=== PATIENT | male | born 1950 | race Caucasian/White ===

== ENCOUNTER 2023-06-28 10:06 | Outpatient (OUT) | payer MEDICARE, OTHER, SELFPAY ==
--- NOTE | 2023-06-28 10:09 | VEIN_ITS ---
Patient Name: JOSE GONZALEZ MR#: [id number] : 1950 Exam Date: 06/28/2023 Ordering Doctor: KALLI DALTON RADIOLOGY REPORT PROCEDURE: [facility] - OFFICE VISIT INITIAL COMPARISON: None. PROGRESS NOTES: 73-year-old male who presents with a 8 year history of lower extremity pain swelling and varicose veins. The patient's left side is worse than right. The patient describes the pain as aching burning and heaviness rating the pain as mild, a 2 on a scale of 1-10. Patient's symptoms have significantly progressed in the past 6 months with seeping of both legs this culminated in a venous stasis ulceration on both legs. The patient was seen by [facility] and was referred for possible vein disease. Patient's symptoms are exacerbated by prolonged sitting and standing and are partially relieved by rest, leg elevation and compression stockings which she has worn for approximately 3 months. The patient denies any signs and symptoms to suggest arterial ischemia. The patient describes a family history significant for back pain and heart disease. The patient drinks alcohol occasionally. The patient has never smoked. No illicit drug use. 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 The 1st time was in 2019 , unprovoked. The 2nd episode was in 2022 also unprovoked. The patient is currently on long-term blood thinner, Eliquis. See separate history and physical for medication list. No prior treatment for varicose or spider veins. Nursing notes were reviewed. After history and physical exam I discussed at length the pathophysiology of venous hypertension and possible treatments, therapies and strategies available. We discussed at length the importance of elevating the lower extremities above the level of the heart, increased physical activity and compression stocking use. We discussed intravenous laser ablation, micro foam chemical ablation at length. Risks benefits and alternatives were discussed. Questions were answered. I did inform the patient that I thought his lower extremity swelling was multifactorial with a contributing factor being venous disease however he likely has a component of lymphedema, disease related to hypertension, inactivity and diabetes. Ultrasound venous reflux study performed the same day demonstrates mild right and moderate left great saphenous vein venous insufficiency. Moderate left small saphenous vein venous insufficiency. Bilateral incompetent perforating veins. Bilateral incompetent varicose veins. PHYSICAL EXAM: The right leg demonstrates extensive hemosiderin staining erythema and swelling below the knee. Moderate varicose and reticular veins. Scattered areas of healing active ulceration the largest measuring 5 mm medial distal right lower leg . The left leg demonstrates extensive hemosiderin staining erythema and swelling below the knee. Moderate varicose and reticular veins. Evidence of prior healed ulcerations. No active ulceration. Both thighs, legs and feet were symmetrically warm to the touch. Good posterior tibial and dorsalis pedis pulses were present bilaterally. VEIN/[facility] IMPRESSION: 1. Mild right moderate left great saphenous vein, moderate left small saphenous vein venous insufficiency with dilatation. Bilateral incompetent perforating veins 2. Bilateral lower extremity varicose veins 3. Bilateral lower extremity subcutaneous edema 4. No definite flow significant arterial disease 5. CEAP: C6, Ep, Asp, Pr PLAN: 1. Endovenous laser ablation left great saphenous vein followed by right great saphenous vein followed by left small saphenous vein with possible treatment of the incompetent perforating veins related to venous stasis ulcerations 2. Micro foam chemical ablation bilateral incompetent varicose veins 3. Long-term use bilateral 20-30 mm thigh or knee high compression stockings 4. Elevated legs and increased physical activity for symptomatic relief Nurse notes, history and physical were reviewed and confirmed, see attached forms. The nurse was present throughout the physical exam and consultation Dictated by: Lexa Cunha MD on 06/28/2023 at 13:32 Approved by: Lexa Cunha MD on 06/28/2023 at 14:43
--- NOTE | 2023-06-28 10:10 | VEIN_ITS ---
Patient Name: JOSE GONZALEZ MR#: [id number] : 1950 Exam Date: 06/28/2023 Ordering Doctor: KALLI DALTON RADIOLOGY REPORT PROCEDURE: VC EXT VENOUS REFLUX HEIDI LMTD COMPARISON: None. INDICATIONS: Pain due to varicose veins of bilateral legs I83.813 TECHNIQUE: Duplex imaging of the lower extremity to assess the deep and superficial venous system for the presence of deep or superficial venous incompetence and to document the location and severity of disease. The study includes evaluation of the great saphenous vein (GSV), anterior accessory saphenous vein (AASV) and small saphenous vein (SSV). Patient scanned in reverse Trendelenburg and standing. FINDINGS: RIGHT LOWER EXTREMITY: Saphenofemoral Junction Reflux: Yes 8.7mm 2.2 sec GSV: Diam (mm) Reflux/ Time (sec) Proximal Thigh 7.4 Yes 1.0 Mid Thigh 4.9 Yes 0.5 Distal Thigh 5.4 Yes 0.9 Prox Calf 2.7 No Mid Calf Saphenopopliteal Junction Reflux: 3.2mm No SSV: Proximal Calf 3.2 No Mid Calf 4.1 Yes 0.5 AASV: Not present Thrombi: No acute or chronic thrombus visualized Compressibility: Normal Flow: Normal Preforator: Dist/med calf 3.6mm with 0.8s reflux. Dist/med calf 4.0mm with 0.6s reflux. Mid/med calf 5.3mm with 0.6s reflux. Tech Note: Incompetent GSV. Patent varicose vein dist/med calf 4.7mm 0.9s reflux. Patent varicose vein prox/med 3.0mm with 1.3s reflux. LEFT LOWER EXTREMITY: Saphenofemoral Junction Reflux: Yes 10.4 mm 1.3 sec GSV: Diam (mm) Reflux/Time (sec) Proximal Thigh 6.9 Yes 1.2 Mid Thigh 6.9 Yes 1.1 Distal Thigh 3.9 No Prox Calf 5.0 Yes 0.9 Mid Calf 2.5 No Saphenopopliteal Junction Relux: 7.3 mm Yes 1.4 SSV: Proximal Calf 5.7 Yes 1.6 Mid Calf 5.0 Yes 0.8 AASV: Thrombi: Chronic thrombus visualized in proximal SSV. Compressibility: Normal Flow: Normal Dam Tender Assistant: Dist/med calf 2.5mm with 1.1s reflux. Tech Note: Incompetent GSV and SSV. Patent varicose vein dist/med calf 4.7mm with 1.1s reflux. Patent varicose vein prox/med calf 5.2mm with 1.2s reflux. Patent varicose vein distal med thigh 5.2mm with 1.2s reflux. CONCLUSION: 1. Mild right and moderate left great saphenous vein venous insufficiency with dilatation and saphenofemoral junction reflux 2. Moderate left small saphenous vein venous insufficiency with saphenous popliteal junction reflux 3. Bilateral incompetent perforating veins 4. Bilateral incompetent varicose veins Dictated by: Lexa Cunha MD on 06/28/2023 at 11:14 Approved by: Lexa Cunha MD on 06/28/2023 at 12:22
== END 2023-06-28 10:07 | disposition home or self-care (01) ==
LOC: VC 10:07
PROVIDERS: PCP Nurse Practitioner Adult Health; Visit Provider Nurse Practitioner Adult Health
DX: I83.813 Varicose veins of bilateral lower extremities with pain (principal)
CPT/HCPCS: 93970; G0463

== ENCOUNTER 2023-07-16 09:53 | Outpatient (OUT) | payer MEDICARE, OTHER, SELFPAY ==
--- NOTE | 2023-07-16 09:57 | VEIN_ITS ---
[address] [address] Patient Name: JOSE GONZALEZ MRN: [id number] date: 1950 Sex: M Assigned Patient Location: Current Patient Location: Accession/Order Number: [id number] Exam Date: 07/16/2023 10:10 Report Date: 07/16/2023 11:17 At the request of: JAMES ESPINOZA Procedure: VC Endovenous Ablation 1VeinLT EXAMINATION: VC Endovenous Ablation 1VeinLT HISTORY: Pain due to varicose veins of bilateral legs I83.813 The risks and benefits of the procedure had been previously discussed, and were rediscussed at length. Informed written consent was obtained. Stephanie Vela RN and Catalina Crespo RDMS, RVT assisted. Time out procedure was performed. The left lower extremity was prepared and draped in the usual sterile fashion to allow knee flexion in the sterile field. Duplex ultrasound probe was draped in a sterile cover, sterile transmission gel was used. Venous mapping was performed with the areas of dilation and large tributaries marked. The total length was 70 cm from the entry 3 cm above the ankle to 3 cm below the Saphenofemoral junction. The diameter of the left great saphenous vein ranged from 6.9 mm. A 30 gauge needle and 1% buffered lidocaine was used to anesthetize the entry site. A 4 mm incision was made with a scalpel and the saphenous vein was entered percutaneously under direct ultrasound guidance with a micropuncture set, a single stick was successful in gaining access. A micro-guide wire was inserted and the needle removed. A micro-set including a dilator was inserted over the microwire and the needle and dilator were removed. A guide wire was inserted through the micro-set and guided through the saphenous vein to the saphenofemoral junction. The dilator was removed and an introducer sheath was inserted over the wire until the end of the sheath entered the saphenofemoral junction. The dilator and wire were removed and the 600 micron fiber was introduced and placed and positioned so that it extended beyond the sheath and was 3 cm distal to the saphenofemoral or saphenopopliteal junction. Final position of the fiber was determined by ultrasound guidance and duplex imaging. Tumescent anesthetic was delivered by ultrasound guidance. 350 cc of fluid was delivered along the entire course of the saphenous vein. The solution consisted of 1000 cc of normal saline with 40 mL of 1% lidocaine and 20 mL of sodium bicarbonate. A final positioning check was made. The energy source was turned on by means of the foot pedal and the fiber and sheath were withdrawn. The total number of Joules delivered was 3334. The laser was active for 419 seconds under continuous pulse, average laser use of 8 J. Laser start time 10:45 AM, 07/16/2023. Laser stop time 10:53 AM, 07/16/2023. A duplex ultrasound revealed compressibility and flow at the saphenofemoral junction immediately after the procedure. Hemostasis at the access site was achieved. The skin incision of the saphenous vein was closed with a 4 x 4. A compression stocking was applied. Postop instructions were given. A follow up appointment was recommended and scheduled. The patient tolerated the procedure well. Electronically authenticated by: DIPIKA PARRISH Date: 07/16/2023 11:17
[2023-07-16] MEDS: LIDOCAINE HCL 1% 100 MG/10 ML MDV INJ (11:42)
[2023-07-16] MEDS: 0.9 % SODIUM CHLORIDE 500 ML, LIDOCAINE HCL 20 ML, SODIUM BICARBONATE 10 MEQ INJ (11:42)
== END 2023-07-16 09:54 | disposition home or self-care (01) ==
LOC: VC 09:53
PROVIDERS: PCP Nurse Practitioner Adult Health; Visit Provider Radiology Diagnostic Radiology
DX: I83.813 Varicose veins of bilateral lower extremities with pain (principal)
CPT/HCPCS: 36478

== ENCOUNTER 2023-07-22 08:41 | Outpatient (OUT) | payer MEDICARE, OTHER, SELFPAY ==
--- NOTE | 2023-07-22 08:42 | VEIN_ITS ---
Patient Name: JOSE GONZALEZ MR#: [id number] : 1950 Exam Date: 07/22/2023 Ordering Doctor: DR LEXA CUNHA M.D. RADIOLOGY REPORT PROCEDURE: VC EXT VENOUS LT LIMITED COMPARISON: None. INDICATIONS: Phlebitis of superficial vein of lt lower extremity I80.02 TECHNIQUE: Lower extremity anderson scale and Duplex Doppler evaluation of the deep venous system from the inguinal ligament through the calf veins. FINDINGS: REGION: Left lower extremity. THROMBI: Negative for DVT. Heat induced thrombus visualized 1.9 cm from the SFJ. The heat induced thrombus extends from groin to distal calf. COMPRESSIBILITY: Non-compressible segments corresponding to thrombus FLOW: Areas of absent flow corresponding to thrombus CONCLUSION: Post ablation occlusion of the left great saphenous vein with heat induced thrombus 1.9 cm from the saphenofemoral junction Dictated by: Lexa Cunha MD on 07/22/2023 at 09:23 Approved by: Lexa Cunha MD on 07/22/2023 at 09:25
--- NOTE | 2023-07-22 08:42 | VEIN_ITS ---
Patient Name: JOSE GONZALEZ MR#: [id number] : 1950 Exam Date: 07/22/2023 Ordering Doctor: DR LEXA CUNHA M.D. RADIOLOGY REPORT PROCEDURE: [facility] - OFFICE VISIT FOLLOW UP COMPARISON: None. PROGRESS NOTES: The patient reports mild discomfort and a lump in the medial left thigh related to his intravenous laser ablation. The patient has worn his compression stocking. The patient did not require oral analgesics. The patient has attempted to exercise since the procedure as directed. Physical exam demonstrates several areas of mild bruising in the left proximal and mid medial thigh the largest area measuring 5 cm in diameter. No erythema or warmth to suggest cellulitis or thrombophlebitis. No active ulceration. The incision is sealed. Thrombosed left great saphenous vein can be palpated. Review of the ultrasound performed the same day demonstrates occlusive thrombus extending throughout the treated left great saphenous vein with heat induced thrombus 1.9 cm from the saphenofemoral junction. No deep vein thrombus. The patient expressed a desire to proceed with treatment of incompetent right great saphenous vein. VEIN/[facility] Facility EST LMTD IMPRESSION: 1. Successful ablation of the left great saphenous vein 2. Persistent incompetent right great saphenous vein. PLAN: Intravenous laser ablation right great saphenous vein Nurse notes, history and physical were reviewed and confirmed, see attached forms. The nurse was present throughout the physical exam and consultation Dictated by: Lexa Cunha MD on 07/22/2023 at 09:44 Approved by: Lexa Cunha MD on 07/22/2023 at 09:46
== END 2023-07-22 08:42 | disposition home or self-care (01) ==
LOC: VC 08:41
PROVIDERS: PCP Nurse Practitioner Adult Health; Visit Provider Radiology Diagnostic Radiology
DX: I80.02 Phlebitis and thrombophlebitis of superficial vessels of left lower extremity (principal)
CPT/HCPCS: 93971; G0463

== ENCOUNTER 2023-07-30 08:45 | Outpatient (OUT) | payer MEDICARE, OTHER, SELFPAY ==
--- NOTE | 2023-07-30 08:47 | VEIN_ITS ---
[address] [address] Patient Name: JOSE GONZALEZ MRN: [id number] date: 1950 Sex: M Assigned Patient Location: Current Patient Location: Accession/Order Number: [id number] Exam Date: 07/30/2023 08:50 Report Date: 07/30/2023 10:44 At the request of: JAMES ESPINOZA Procedure: VC Endovenous Ablation 1VeinRT EXAMINATION: VC Endovenous Ablation 1VeinRT great saphenous vein HISTORY: I83.813 Bilateral painful varicose veins COMPARISON: No relevant comparison available. TECHNIQUE: The risks and benefits of the procedure had been previously discussed, and were rediscussed at length. Informed written consent was obtained. Taryn Crespo and Zak Olivia assisted. Time out procedure was performed. The right lower extremity was prepared and draped in the usual sterile fashion to allow knee flexion in the sterile field. Duplex ultrasound probe was draped in a sterile cover, sterile transmission gel was used. Venous mapping was performed with the areas of dilation and large tributaries marked. The total length was 36 cm from the entry upper calf to 3 cm below the saphenofemoral junction, but I believe this area was too small for treatment. The diameter of the greater saphenous vein ranged from 5-8 mm. A 30 gauge needle and 1% buffered lidocaine was used to anesthetize the entry site. A 4 mm incision was made with a scalpel and the saphenous vein was entered percutaneously under direct ultrasound guidance with a micropuncture set, a single stick was successful in gaining access. A micro-guide wire was inserted and the needle removed. A micro-set including a dilator was inserted over the microwire and the needle and dilator were removed. A 0.018 guide wire was inserted through the micro-set and threaded through the saphenous vein to the saphenofemoral junction. The dilator was removed and an introducer sheath was inserted over the wire until the end of the sheath entered the saphenofemoral junction. The dilator and wire were removed and the 600 micron fiber was introduced and placed and positioned so that it extended beyond the sheath and was 3 cm peripheral to the saphenofemoral femoral junction. Final position of the fiber was determined by ultrasound guidance and duplex imaging. Tumescent anesthetic was delivered by ultrasound guidance. 275 cc of fluid was delivered along the entire course of the saphenous vein. The solution consisted of 1000 cc of normal saline with 40 mL of 1% lidocaine and 20 mL of sodium bicarbonate. A final positioning check was made. The energy source was turned on by means of the foot pedal and the fiber and sheath were withdrawn. The total number of Joules delivered was 2274. The laser was active for seconds under continuous pulse, average laser use of 8 J. Laser start time 9:30 AM 07/30/2023. Laser stop time 936AM 07/30/2023. A duplex ultrasound revealed compressibility and flow at the saphenofemoral junction immediately after the procedure. Hemostasis at the access site was achieved. The skin incision of the saphenous vein was closed with a 4 x 4. A compression stocking was applied. Postop instructions were given. A follow up appointment was recommended and scheduled. The patient tolerated the procedure well and was discharged in good condition . VEIN/VC Endovenous Ablation 1VeinRT IMPRESSION: Technically successful endovenous laser ablation of the right great saphenous vein Electronically authenticated by: JAMES ESPINOZA Date: 07/30/2023 10:44
[2023-07-30] MEDS: LIDOCAINE HCL 1% 100 MG/10 ML MDV INJ (09:12)
[2023-07-30] MEDS: 0.9 % SODIUM CHLORIDE 500 ML, LIDOCAINE HCL 20 ML, SODIUM BICARBONATE 10 MEQ INJ (09:12)
== END 2023-07-30 08:46 | disposition home or self-care (01) ==
LOC: VC 08:45
PROVIDERS: PCP Radiology Diagnostic Radiology; Visit Provider Radiology Diagnostic Radiology
DX: I83.813 Varicose veins of bilateral lower extremities with pain (principal)
CPT/HCPCS: 36478

== ENCOUNTER 2023-08-02 07:24 | Outpatient (OUT) | payer MEDICARE, OTHER, SELFPAY ==
--- NOTE | 2023-08-02 07:25 | VEIN_ITS ---
Patient Name: JOSE GONZALEZ MR#: [id number] : 1950 Exam Date: 08/02/2023 Ordering Doctor: DR JAMES ESPINOZA M.D. RADIOLOGY REPORT PROCEDURE: VC EXT VENOUS RT LMTD COMPARISON: None. INDICATIONS: Phlebitis of superficial veins of rt lower extremity I80.01 TECHNIQUE: Lower extremity anderson scale and Duplex Doppler evaluation of the deep venous system from the inguinal ligament through the calf veins. FINDINGS: REGION: Right lower extremity. THROMBI: Negative for DVT. Heat induced thrombus visualized 5.6cm from the SFJ. The heat induced thrombus extends from groin to distal thigh. COMPRESSIBILITY: Choose one.Non-compressible segments corresponding to thrombus FLOW: Areas of no flow corresponding to thrombus OTHER: CONCLUSION: 1. Successful post ablation occlusion of right great saphenous vein. Dictated by: Calvin Tan M.D. on 08/02/2023 at 08:47 Approved by: Calvin Tan M.D. on 08/02/2023 at 08:48
--- NOTE | 2023-08-02 07:25 | VEIN_ITS ---
Patient Name: JOSE GONZALEZ MR#: [id number] : 1950 Exam Date: 08/02/2023 Ordering Doctor: DR JAMES ESPINOZA M.D. RADIOLOGY REPORT PROCEDURE: [facility] - OFFICE VISIT FOLLOW UP [facility] PROGRESS NOTES: The patient reports improvement in leg symptoms. There has been interval reduction in varicosities. The patient has followed our recommendations to walk 20-30 minutes once or twice per day since the procedure. Physical exam demonstrates decrease in varicosities of the leg. Persistent varicosities and skin changes are identified along the legs bilaterally. Review of the ultrasound performed the same day demonstrates occlusive thrombus extending throughout the treated vein(s), see separate report, consistent with a successful ablation. No thrombus extending into or beyond the saphenofemoral junction. The patient expressed a desire to proceed with treatment of remaining incompetent varicosities. The patient was informed that treatment was a process and would require several procedures/sessions. [facility]: 1. Successful ablation of the right great saphenous vein(s). 2. Persistent varicose veins and lower extremity symptoms. PLAN: 1. Endovenous laser ablation of left small saphenous vein. Nurse notes, history and physical were reviewed and confirmed, see attached forms. The nurse was present throughout the physical exam and consultation Dictated by: Calvin Tan M.D. on 08/02/2023 at 08:48 Approved by: Calvin Tan M.D. on 08/02/2023 at 08:49
--- OUTSIDE RECORDS SUMMARY | 2023-08-02 07:27 | XMS_ITS | CCD ---
Author Name Unknown Address [address] [place] [address] Organization [facility] Care Team Providers Care Marketing Program Manager Name Role Phone [facility] Primary Care Physician [phone] Pcp, No Primary Care Provider UnavailThao Jones DO(Historical) Unavailable Unavailable [facility] DO Primary Care Provider KATRINA URENA Referring Unavailable SKY HOWE Attending Unavailable KATRINA URENA Referring Unavailable KATRINA URENA Attending Unavailable MT GOODEN Primary Care Unavailable LACHO, JUMA Referring Unavailable [facility] GOODEN Primary Care Unavailable LACHO, JUMA Referring Unavailable MT GOODEN Primary Care Unavailable LACHO, JUMA Referring Unavailable MT GOODEN Primary Care Unavailable LACHO, JUMA Attending Unavailable LACHO, JUMA Attending Unavailable Mechelle, Kalli Attending Unavailable Copmargie, Kalli Admitting Unavailable [facility] Primary Care Unavailable Murillo, Basem G. Referring Unavailable Murillo, Basem G. Attending Unavailable [facility] Admitting Unavailable SALAMTajer Attending Unavailable KAPMt MENDIOLA Referring Unavailable Murillo, Basem GJase Attending Unavailable [facility] Attending Unavailable [facility] Attending Unavailable Thao Duncan Attending Unavailable [facility] Admitting Unavailable [facility] Attending Unavailable Al-Marraalfonzo, Mickd Yaser Admitting Unavailabl e Al-Markaty, Mhd Yaser Attending Unavailabl e [facility] Admitting Unavailable KAPMt MENDIOLA Attending Unavailable KAPMt MENDIOLA Attending Unavailable KAPMt MENDIOLA Admitting Unavailable Al-Marrawi, Mickd Yaser Admitting Unavailabl e Al-Marrawi, Mhd Yaser Attending Unavailabl e Moussawi, Ahmad Attending Unavailable Moussawi, Ahmad Admitting Unavailable Marcell Jensen Consulting Unavaila Marcell Del Cid. Consulting Unavaila Marcell Del Cid. Consulting Unavaila ble Dick, Mohamed F. Consulting Unavailable Dick, Mohamed F. Consulting Unavailable Dick, Mohamed F. Consulting Unavailable Kim Astrnabila H Attending Unavailable Moussawi, Ahmad Referring Unavailable Al-Marrawi, Mhd Yaser Attending Unavailabl e Al-Marrawi, Mhd Yaser Attending Unavailabl e Al-Marrawi, Mhd Yaser Attending Unavailabl e MurilloMatty wilkins GJase Attending Unavailable NONE, XXXX Referring Unavailable [facility] Referring Unavailable [facility] Attending Unavailable [facility] Admitting Unavailable COPSEY KALLI Admitting Unavailable COPSEY KALLI Referring Unavailable COPYEE THAPAIA Attending Unavailable [facility] Admitting Unavailable KAPMt MENDIOLA Referring Unavailable KAPMt MENDIOLA Attending Unavailable Pawan Laureano Admitting Unavailable Pawan Laureano Referring Unavailable Pawan Laureano Attending Unavailable Al-Marrawi, Mhd Yalink Attending Unavailabl e Al-Marrawi, Mhd Yaser Admitting Unavailabl e KAPMt MENDIOLA Attending Unavailable Thao Duncan Attending Unavailable [facility] Attending Unavailable KAPMt MENDIOLA Attending Unavailable KAPMt MENDIOLA Attending Unavailable KAPMt MENDIOLA Attending Unavailable Kevin LOBO Attending Unavailable Thao Duncan Attending Unavailable Jordan Dean Attending Unavailable Osvaldo Garza Referring Unavailable Bryce Lieberman Attending Unavailable [facility] Referring Unavailable Pawan Laureano Attending Unavailable MD Pawan Laureano Admitting Unavailable Thao Duncan Referring Unavailable Pawan Laureano Attending Unavailable MD Pawan Laureano Admitting Unavailable [facility] Referring Unavailable Pawan Laureano Attending Unavailable MD Pawan Laureano Admitting Unavailable Murillo Basem G. Referring Unavailable Murillo Basem G. Attending Unavailable Murillo Basem G. Admitting Unavailable Pawan Laureano Referring Unavailable Pawan Laureano Attending Unavailable MD Pawan Laureano Admitting Unavailable Allergies Allergy Classification Reported Allergen(s) Allergy Type Date of Onset Reaction(s) Facility (20 sources) Azithromycin; Translations: [azithromycin] Drug Allergy 06-08-2022 [facility] (1 source) Azithromycin Drug Allergy 05-16-[address] [facility] Repository Medications Current Medications Medication Drug Class(es) Dates Sig (Normalized) Sig (Original) acetaminophen 325 mg oral tablet (20 sources) Start: 08-01-2022 take 1 tablet by mouth once Tylenol 325 mg Tab = 1 tab(s), Oral, Once, # 1 tab(s), Refills(s) 0 Start Date: 08/01/22 Status: Ordered Start: 01-06-2020 take 2 tablets by mo uth every six hours as needed for pain acetaminophen 325 mg Tab 650 mg = 2 tab(s), Oral, q6hr, PRN Pain, Refills(s) 0 Start Date: 01/06/20 Status: Ordered apixaban 5 mg oral tablet (17 sources) Factor Xa Inhibitor Start: 03-04-2023 take 1 tablet by mouth twice daily Eliquis 5 mg oral tablet 5 mg = 1 tab(s), Oral, BID, # 180 tab(s), Refills(s) 3, Pharmacy: [facility]/pharmacy #[id number], 185, cm, 04/09/23 10:08:00 EDT, Height/Length Dosing, 154.1, kg, 04/09/23 10:08:00 EDT, Weight Dosing Start Date: 04/09/23 Status: Ordered Start: 02-19-2023 Eliquis 5 mg o ral tablet 2 tabs (10 mg) BID x 7 days then 1 tab bid, Oral, BID, initial fill only, # 74 tab(s), Refills(s) 0, Pharmacy: [facility]/pharmacy #[id number], 182, cm, 02/18/23 9:01:00 EDT, Height/Length Dosing, 138.4, kg, 02/18/23 9:01:00 EDT, Weight Dosing Start Date: 02/19/23 Status: Ordered aspirin 81 mg chewable tablet (20 sources) Platelet Aggregation Inhibitor, Nonsteroidal Anti-inflammatory Drug Start: 10-21-2020 take 1 tablet by mouth once daily aspirin 81 mg Chew Tab 81 mg = 1 tab(s), Oral, Daily, # 90 tab(s), Refills(s) 3, other reason (Rx) Start Date: 10/21/20 Status: Ordered Comment on above: Take by mouth. cephalexin 500 mg oral capsule (2 sources) Cephalosporin Antibacterial Start: 03-13-2023 End: 03-20-2023 take 1 capsule by mouth every six hours Keflex 500 mg Cap 500 mg = 1 cap(s), Oral, q6hr, X 7 day(s), # 28 cap(s), Refills(s) 0, Pharmacy: [facility]/pharmacy #[id number], 185.4, cm, 03/13/23 2:24:00 EDT, Height/Length Dosing, 154.7, kg, 03/13/23 2:24:00 EDT, Weight Dosing Start Date: 03/13/23 Stop Date: 03/20/23 Status: Ordered Start: 12-02-2022 take 1 capsule by [facility] every eight hours cephalexin 500 mg Cap 500 mg = 1 cap(s), Oral, q8hr, # 30 cap(s), Refills(s) 0, Pharmacy: [facility]/pharmacy #[id number], 182, cm, 12/02/22 12:12:00 EDT, Height/Length Dosing, 150, kg, 12/02/22 12:12:00 EDT, Weight Dosing Start Date: 12/02/22 Status: Ordered cyclobenzaprine hydrochloride 10 mg oral tablet (2 sources) Muscle Relaxant Start: 06-22-2022 End: 07-02-2022 take 1 tablet by mouth at bedtime as needed for muscle spasms cyclobenzaprine 10 mg Tab 10 mg = 1 tab(s), Oral, Bedtime, PRN for spasm, X 10 day(s), # 10 tab(s), Refills(s) 0, Pharmacy: [facility]/pharmacy #[id number], 185, cm, 06/22/22 11:58:00 EST, Height/Length Dosing, 146.3, kg, 06/22/22 11:58:00 EST, Weight Dosing Start Date: 06/22/22 Stop Date: 07/02/22 Status: Ordered Start: 12-14-2021 take 1 tablet by nicolas th at bedtime cyclobenzaprine 10 mg Tab 10 mg = 1 tab(s), Oral, Bedtime, # 30 tab(s), Refills(s) 1, Pharmacy: [facility]/pharmacy #[id number], 185, cm, 12/14/21 15:11:00 EDT, Height/Length Dosing, 144.7, kg, 12/14/21 15:11:00 EDT, Weight Dosing Start Date: 12/14/21 Status: Ordered doxycycline hyclate 100 mg oral capsule (1 source) Tetracycline-class Drug Start: 08-22-2021 take 1 capsule by mouth twice daily doxycycline hyclate 100 mg Cap 100 mg = 1 cap(s), Oral, BID, # 20 cap(s), Refills(s) 0, Pharmacy: [facility]/pharmacy #[id number], 185, cm, 08/22/21 9:05:00 EST, Height/Length Dosing, 145.2, kg, 08/22/21 9:05:00 EST, Weight Dosing Start Date: 08/22/21 Status: Ordered famotidine 40 mg oral tablet (20 sources) Histamine-2 Receptor Antagonist Start: 06-03-2023 take 1 tablet by mouth once daily at bedtime famotidine 40 mg Tab 40 mg = 1 tab(s), Oral, Once a day (at bedtime), # 90 tab(s), Refills(s) 3, Pharmacy: [facility]/pharmacy #[id number], 182, cm, 06/03/23 13:45:00 EDT, Height/Length Dosing, 146.6, kg, 06/03/23 13:45:00 EDT, Weight Dosing Start Date: 06/03/23 Status: Ordered Start: 01-22-2022 take 1 tablet by nicolas th once daily at bedtime famotidine 40 mg Tab 40 mg = 1 tab(s), Oral, Once a day (at bedtime), # 90 tab(s), Refills(s) 3, Pharmacy: [facility]/pharmacy #[id number], 182, cm, 12/10/22 10:07:00 EDT, Height/Length Dosing, 154.8, kg, 12/10/22 10:07:00 EDT, Weight Dosing Start Date: 12/31/22 Status: Ordered Start: 12-08-2020 take 1 tablet by nicolas th once daily at bedtime famotidine 40 mg Tab 40 mg = 1 tab(s), Oral, Once a day (at bedtime), # 90 tab(s), Refills(s) 3, Pharmacy: [facility]/pharmacy #[id number], 185, cm, 10/21/20 9:58:00 EST, Height/Length Dosing, 148.8, kg, 10/21/20 9:57:00 EST, Weight Dosing Start Date: 12/08/20 Status: Ordered Comment on above: Take 40 mg by mouth daily at bedtime. fluticasone propionate 0.05 mg/actuat metered dose nasal spray (20 sources) Corticosteroid Start: 3 Flonase 0.05 mg/inh [place] 2 spray(s), Nasal, Daily, 16 gram, Refill(s) 11, each nostril, [facility]/pharmacy #[id number], 182, cm, 11/08/22 10:10:00 EDT, Height/Length Dosing, 151.1, kg, 11/08/22 10:10:00 EDT, Weight Dosing Start Date: 11/08/22 Status: Ordered Comment on above: Use in the nose. furosemide 40 mg oral tablet (16 sources) Loop Diuretic Start: 3 take 1 tablet by mouth once daily as needed for edema Lasix 40 mg Tab 40 mg = 1 tab(s), Oral, Daily, PRN Edema, # 90 tab(s), Refills(s) 3, Pharmacy: [facility]/pharmacy #[id number], 182, cm, 06/03/23 13:45:00 EDT, Height/Length Dosing, 146.6, kg, 06/03/23 13:45:00 EDT, Weight Dosing Start Date: 06/03/23 Status: Ordered Start: 12-18-2022 take 1 tablet by nicolas once daily as needed for edema Lasix 40 mg Tab 40 mg = 1 tab(s), Oral, Daily, PRN Edema, # 30 tab(s), Refills(s) 5, Pharmacy: [facility]/pharmacy #[id number], 182, cm, 12/10/22 10:07:00 EDT, Height/Length Dosing, 154.8, kg, 12/10/22 10:07:00 EDT, Weight Dosing Start Date: 12/18/22 Status: Ordered gabapentin 100 mg oral capsule (2 sources) Anti-epileptic Agent Start: 11-30-2020 take 1 capsule by mouth once daily gabapentin 100 mg Cap 100 mg = 1 cap(s), Oral, Daily, # 30 cap(s), Refills(s) 3, Pharmacy: [facility]/pharmacy #[id number], 185, cm, 10/21/20 9:58:00 EST, Height/Length Dosing, 148.8, kg, 10/21/20 9:57:00 EST, Weight Dosing Start Date: 11/30/20 Status: Ordered hydrocortisone 25 mg/ml rectal cream (16 sources) Corticosteroid Start: 01-23-2023 hydrocortisone 2.5% Rectal Crm w/Appl 1 lorenzo, Rectal, BID, 30 gram, Refill(s) 0 Start Date: 01/23/23 Status: Ordered lisinopril 10 mg oral tablet (20 sources) Angiotensin Converting Enzyme Inhibitor Start: 05-05-2023 take 1 tablet by mouth once daily lisinopril 10 mg Tab 10 mg = 1 tab(s), Oral, Daily, # 90 tab(s), Refills(s) 3, Pharmacy: [facility]/pharmacy #[id number], 185, cm, 04/09/23 10:08:00 EDT, Height/Length Dosing, 154.1, kg, 04/09/23 10:08:00 EDT, Weight Dosing Start Date: 05/05/23 Status: Ordered Start: 10-14-2020 take 1 tablet by nicolas once daily lisinopril 10 mg Tab 10 mg = 1 tab(s), Oral, Daily, # 90 tab(s), Refills(s) 1, Pharmacy: [facility]/pharmacy #[id number], 185, cm, 03/15/22 8:30:00 EDT, Height/Length Dosing, 146, kg, 03/15/22 8:30:00 EDT, Weight Dosing Start Date: 04/20/22 Status: Ordered Comment on above: Take by mouth. metFORMIN hydrochloride 1000 mg oral tablet (20 sources) Biguanide Start: 12-31-2022 take 1 tablet by mouth twice daily metformin 1000 mg Tab 1,000 mg = 1 tab(s), Oral, BID, # 180 tab(s), Refills(s) 3, [id number], cm, 12/10/22 10:07:00 EDT, Height/Length Dosing, 154.8, kg, 12/10/22 10:07:00 EDT, Weight Dosing Start Date: 12/31/22 Status: Ordered Start: 12-10-2022 take 1 tablet by nicolas th twice daily metformin 1000 mg Tab 1,000 mg = 1 tab(s), Oral, BID, # 180 tab(s), Refills(s) 3, [id number] 182, cm, 12/10/22 10:07:00 EDT, Height/Length Dosing, 154.8, kg, 12/10/22 10:07:00 EDT, Weight Dosing Start Date: 12/10/22 Status: Ordered Start: 10-06-2021 take 1 tablet by nicolas th once daily metFORMIN (GLUCOPHAGE) 1,000 mg tablet Take 1,000 mg by mouth once daily. 0 10/01/2022 Active Comment on above: Take 1,000 mg by nicolas th once daily. methocarbamol 500 mg oral tablet (14 sources) Muscle Relaxant Start: 2022 End: 2022 take 2 tablets by mouth four times daily as needed for muscle spasms Robaxin 500 mg Tab 1,000 mg = 2 tab(s), Oral, QID, PRN spasm, # 120 tab(s), Refills(s) 0, [id number] 182, cm, 03/01/23 13:14:00 EDT, Height/Length Dosing, 153.1, kg, 03/01/23 13:14:00 EDT, Weight Dosing Start Date: 03/04/23 Status: Ordered methylPREDNISolone 4 mg oral tablet (1 source) Corticosteroid Start: 2021 End: 2021 Medrol 4 mg Tab = 1 packet(s), Oral, As Directed, as directed on package labeling, X 6 day(s), # 21 tab(s), Refills(s) 2, Pharmacy: [facility]/pharmacy #[id number], 185, cm, 12/14/21 15:11:00 EDT, Height/Length Dosing, 144.7, kg, 12/14/21 15:11:00 EDT, Weight Dosing Start Date: 12/14/21 Stop Date: 01/01/22 Status: Ordered Multi Vitamins oral tablet (3 sources) Start: 2016 take 1 tablet by mouth once daily Multi Vitamins oral tablet 1 tab(s), Oral, Daily, Refill(s) 0, Prophylaxis Start Date: 11/21/16 Status: Ordered Aleve (1 source) Nonsteroidal Anti-inflammatory Drug Start: 2021 take 1 mg by mouth every twelve hours Aleve mg, Oral, q12hr, Refills(s) 0 Start Date: 06/22/22 Status: Ordered omeprazole 40 mg delayed release oral capsule (20 sources) Proton Pump Inhibitor Start: 2021 take 1 capsule by mouth once daily omeprazole 40 mg Cap-DR 40 mg = 1 cap(s), Oral, Daily, # 90 cap(s), Refills(s) 3, Pharmacy: [facility]/pharmacy #[id number], 182, cm, 11/08/22 10:10:00 EDT, Height/Length Dosing, 151.1, kg, 11/08/22 10:10:00 EDT, Weight Dosing Start Date: 11/15/22 Status: Ordered Comment on above: Take 40 mg by mouth once daily. omeprazole 40 mg Cap-DR (2 sources) Start: 2021 take 1 capsule by mouth once daily omeprazole 40 mg Cap-DR 40 mg = 1 cap(s), Oral, Daily, # 90 cap(s), Refills(s) 3, Pharmacy: [facility]/pharmacy #[id number], 182.9, cm, 09/18/21 11:36:00 EST, Height/Length Dosing, 142.1, kg, 09/18/21 11:36:00 EST, Weight Dosing Start Date: 11/20/21 Status: Ordered pioglitazone 30 mg oral tablet (20 sources) Peroxisome Proliferator Receptor alpha Agonist, Peroxisome Proliferator Receptor gamma Agonist, Thiazolidinedione Start: 2022 take 1 tablet by mouth once daily pioglitazone 30 mg Tab 30 mg = 1 tab(s), Oral, Daily, # 90 tab(s), Refills(s) 3, Pharmacy: [facility]/pharmacy #[id number], 185, cm, 06/26/23 9:53:00 EST, Height/Length Dosing, 147, kg, 06/26/23 9:53:00 EST, Weight Dosing Start Date: 07/02/23 Status: Ordered Start: 06-03-2023 take 1 tablet by nicolas once daily pioglitazone 30 mg Tab 30 mg = 1 tab(s), Oral, Daily, # 90 tab(s), Refills(s) 3, Pharmacy: [facility]/pharmacy #[id number], 182, cm, 06/03/23 13:45:00 EDT, Height/Length Dosing, 146.6, kg, 06/03/23 13:45:00 EDT, Weight Dosing Start Date: 06/03/23 Status: Ordered Start: 11-08-2022 take 1 tablet by [facility] once daily Actos 45 mg Tab 45 mg = 1 tab(s), Oral, Daily, # 90 tab(s), Refills(s) 3, Pharmacy: [facility]/pharmacy #[id number], 182, cm, 11/08/22 10:10:00 EDT, Height/Length Dosing, 151.1, kg, 11/08/22 10:10:00 EDT, Weight Dosing Start Date: 11/08/22 Status: Ordered Start: 05-10-2022 take 1 tablet by [facility] once daily Actos 15 mg Tab 15 mg = 1 tab(s), Oral, Daily, # 90 tab(s), Refills(s) 3, [id number] 185, cm, 03/15/22 8:30:00 EDT, Height/Length Dosing, 146, kg, 03/15/22 8:30:00 EDT, Weight Dosing Start Date: 05/10/22 Status: Ordered Start: 07-22-2020 take 1 tablet by [facility] once daily Actos 15 mg Tab 15 mg = 1 tab(s), Oral, Daily, # 90 tab(s), Refills(s) 3, Pharmacy: [facility]/pharmacy #[id number], 185, cm, 07/22/20 10:49:00 EST, Height/Length Dosing, 148.4, kg, 07/22/20 10:49:00 EST, Weight Dosing Start Date: 07/22/20 Status: Ordered polyethylene glycol 3350 011041 mg / potassium chloride 1480 mg / sodium bicarbonate 5720 mg / sodium chloride 90489 mg powder for oral solution (16 sources) Osmotic Laxative Start: 01-23-2023 NuLYTELY Mendez oral powder for reconstitution See Instructions, 1 EA, Refill(s) 0, See physician instructions prior to procedure., [facility]/pharmacy #[id number], 185, cm, 01/23/23 9:12:00 EDT, Height/Length Dosing, 152.1, kg, 01/23/23 9:12:00 EDT, Weight Dosing Start Date: 01/23/23 Status: Ordered predniSONE 20 mg oral tablet (1 source) Start: 06-22-2022 End: 06-29-2022 take 2 tablets by mouth once daily predniSONE 20 mg Tab 40 mg = 2 tab(s), Oral, Daily, X 7 day(s), # 14 tab(s), Refills(s) 0, Pharmacy: [facility]/pharmacy #[id number], 185, cm, 06/22/22 11:58:00 EST, Height/Length Dosing, 146.3, kg, 06/22/22 11:58:00 EST, Weight Dosing Start Date: 06/22/22 Stop Date: 06/29/22 Status: Ordered PT/INR (5 sources) Start: 01-06-2020 PT/INR PT/INR, PT/INR on 01/11/2020, Print Requisition, Supply Start Date: 01/06/20 Status: Ordered SITagliptin 100 mg oral tablet (15 sources) Dipeptidyl Peptidase 4 Inhibitor Start: 07-02-2022 take 1 tablet by mouth once daily Januvia 100 mg Tab 100 mg = 1 tab(s), Oral, Daily, # 90 tab(s), Refills(s) 1, Pharmacy: [facility]/pharmacy #[id number], 185, cm, 06/22/22 11:58:00 EST, Height/Length Dosing, 146.3, kg, 06/22/22 11:58:00 EST, Weight Dosing Start Date: 07/02/22 Status: Ordered Start: 05-03-2021 take 1 tablet by nicolas th once daily Januvia 100 mg Tab 100 mg = 1 tab(s), Oral, Daily, # 90 tab(s), Refills(s) 1, Pharmacy: [facility]/pharmacy #[id number], 185, cm, 12/14/21 15:11:00 EDT, Height/Length Dosing, 144.7, kg, 12/14/21 15:11:00 EDT, Weight Dosing Start Date: 12/15/21 Status: Ordered Completed/Discontinued Medications Medication Drug Class(es) Dates Sig (Normalized) Sig (Original) fluorouracil 50 mg/ml topical cream (5 sources) Nucleoside Metabolic Inhibitor Start: 09-13-2020 Fluorouracil 5 % cream apply to face and ears 0 09/13/2020 Active Comment on above: apply to face and ea rs meloxicam 7.5 mg oral tablet (19 sources) Nonsteroidal Anti-inflammatory Drug Start: 08-01-2022 take 1 tablet by mouth once daily meloxicam (MOBIC) 7.5 mg tablet Take 7.5 mg by mouth once daily. 0 10/31/2022 Active Comment on above: Take 7.5 mg by mouth once daily. potassium chloride 20 meq extended release oral tablet (16 sources) Start: 06-03-2023 take 1 tablet by mouth once daily as needed for edema potassium chloride 20 mEq ER Tab 20 mEq = 1 tab(s), Oral, Daily, PRN Edema, Take on the days he takes Lasix, # 90 tab(s), Refills(s) 3, Pharmacy: [facility]/pharmacy #[id number], 182, cm, 06/03/23 13:45:00 EDT, Height/Length Dosing, 146.6, kg, 06/03/23 13:45:00 EDT, Weight Dosing Start Date: 06/03/23 Status: Ordered Start: 12-18-2022 take 1 tablet by nicolas once daily as needed for edema potassium chloride 20 mEq ER Tab 20 mEq = 1 tab(s), Oral, Daily, PRN Edema, Take on the days he takes Lasix, # 30 tab(s), Refills(s) 5, Pharmacy: [facility]/pharmacy #[id number], 182, cm, 12/10/22 10:07:00 EDT, Height/Length Dosing, 154.8, kg, 12/10/22 10:07:00 EDT, Weight Dosing Start Date: 12/18/22 Status: Ordered tiZANidine 2 mg oral tablet (20 sources) Central alpha-2 Adrenergic Agonist Start: 01-13-2021 tiZANidine (ZANAFLEX ) 2 mg tablet Take by mouth. 0 01/13/2021 Active Comment on above: Take by mouth. Problems Active Problems Problem Classification Problem Date Documented Da te Episodic/Chronic Abdominal hernia (9 sources) Diaphragmatic hernia; Translations: [Diaphragmatic hernia without obstruction or gangrene] Onset: 2 Episodic Anal and rectal conditions (10 sources) Anal fissure 01-23-2023 Episodic Aortic; peripheral; and visceral artery aneurysms (20 sources) Abdominal aortic aneurysm; Translations: [Abdominal aortic aneurysm without rupture] Onset: 3 09-12-2022 Chronic Calculus of urinary tract (20 sources) Kidney stone 2014 Episodic Chronic ulcer of skin (20 sources) Pressure ulcer of buttock; Translations: [Pressure ulcer of unspecified buttock, unspecified stage] Onset: 3 Chronic Coagulation and hemorrhagic disorders (12 sources) Thrombocytopenic disorder; Translations: [Thrombocytopenia, unspecified] Onset: 3 Chronic Conditions associated with dizziness or vertigo (20 sources) Benign paroxysmal positional vertigo 02-20-2021 Episodic Congestive heart failure; nonhypertensive (3 sources) Heart failure; Translations: [Heart failure, unspecified] Onset: 3 Chronic Diabetes mellitus with complications (20 sources) Type 2 diabetes mellitus in obese; Translations: [Complication due to diabetes mellitus] Onset: 2 02-19-2021 Chronic Diabetes mellitus without complication (20 sources) Diabetes mellitus; Translations: [Type 2 diabetes mellitus without complication] Onset: 2 09-12-2020 Chronic Esophageal disorders (20 sources) Mccarty's esophagus; 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] Onset: 2 07-22-2020 Chronic Essential hypertension (20 sources) Essential hypertension; Translations: [Essential (primary) hypertension] Onset: 3 Chronic Gastrointestinal hemorrhage (13 sources) Hemorrhage of rectum and anus; Translations: [Hemorrhage of anus and rectum] Onset: 3 Episodic Genitourinary symptoms and ill-defined conditions (1 source) Nocturia; Translations: [Nocturia] Onset: 3 Episodic Hyperplasia of prostate (20 sources) Nocturia due to benign prostatic hypertrophy; Translations: [Benign prostatic hypertrophy with outflow obstruction] Onset: 3 10-21-2020 Chronic Open wounds of head; neck; and trunk (1 source) Open wound of buttock; Translations: [Unspecified open wound of unspecified buttock, initial encounter] Onset: 3 Episodic Other aftercare (20 sources) Long-term current use of anticoagulant 02-20-2021 Episodic Other aftercare (1 source) Long-term current use of oral hypoglycemic medication; Translations: [long term care administrator (current) use of oral hypoglycemic drugs] Onset: 3 Episodic Other bone disease and musculoskeletal deformities (20 sources) Costal chondritis 02-20-2021 Episodic Other bone disease and musculoskeletal deformities (9 sources) Segmental and somatic dysfunction; Translations: [Segmental and somatic dysfunction of lower extremity] Onset: 2 Episodic Other bone disease and musculoskeletal deformities (20 sources) Somatic dysfunction of lower limb 06-22-2022 Episodic Other bone disease and musculoskeletal deformities (20 sources) Somatic dysfunction of lumbar region 06-22-2022 Episodic Other bone disease and musculoskeletal deformities (20 sources) Somatic dysfunction of sacral spine 06-22-2022 Episodic Other connective tissue disease (7 sources) Disorder of lower extremity 03-01-2023 Episodic Other diseases of veins and lymphatics (1 source) Venous ulcer of lower extremity due to chronic peripheral venous hypertension; Translations: [Chronic venous hypertension (idiopathic) with ulcer of unspecified lower extremity] Onset: 3 Chronic Other diseases of veins and lymphatics (9 sources) Chronic peripheral venous hypertension 02-18-2023 Chronic Other diseases of veins and lymphatics (13 sources) Disorder of vein of lower extremity 03-01-2023 Episodic Other diseases of veins and lymphatics (1 source) Peripheral venous insufficiency; Translations: [Venous insufficiency (chronic) (peripheral)] Onset: 3 Episodic Other ear and sense organ disorders (20 sources) Does use hearing aid 09-12-2020 Episodic Other ear and sense organ disorders (1 source) External hearing aid in situ; Translations: [Presence of external hearing-aid] Onset: 3 Episodic Other gastrointestinal disorders (15 sources) Constipation 02-18-2023 Episodic Other gastrointestinal disorders (1 source) Constipation, unspecified; Translations: [Constipation, unspecified] Onset: 3 Episodic Other hematologic conditions (20 sources) Increased serum protein level 09-10-2022 Episodic Other hematologic conditions (2 sources) Abnormal finding on evaluation procedure; Translations: [Abnormality of plasma protein, unspecified] Onset: 3 Episodic Other liver diseases (1 source) Increased aspartate transaminase level; Translations: [Elevation of levels of liver transaminase levels] Onset: 3 Episodic Other liver diseases (2 sources) Elevated liver enzymes level 12-10-2022 Episodic Other lower respiratory disease (20 sources) Rib pain 02-20-2021 Episodic Other lower respiratory disease (14 sources) Dyspnea; Translations: [Shortness of breath] Onset: 3 Episodic Other lower respiratory disease (16 sources) Orthopnea; Translations: [Orthopnea] Onset: 3 Episodic Other nervous system disorders (20 sources) Numbness of hand 07-22-2020 Episodic Other non-traumatic joint disorders (20 sources) Shoulder pain 02-20-2021 Episodic Other nutritional; endocrine; and metabolic disorders (20 sources) Body mass index 40+ - severely obese; Translations: [Body mass index (BMI) 40.0-44.9, adult] Onset: 2 09-12-2020 Chronic Other nutritional; endocrine; and metabolic disorders (20 sources) Morbid obesity; Translations: [Morbid (severe) obesity due to excess calories] Onset: 2 09-12-2020 Chronic Other nutritional; endocrine; and metabolic disorders (20 sources) Obesity; Translations: [Obesity, unspecified] Onset: 3 Resolved: 3 06-15-2019 Chronic Other nutritional; endocrine; and metabolic disorders (6 sources) Severe obesity; Translations: [Morbid (severe) obesity due to excess calories] Onset: 2 06-08-2022 Chronic Other screening for suspected conditions (not mental disorders or infectious disease) (3 sources) Encounter for screening for malignant neoplasm of prostate; Translations: [Screening for malignant neoplasm done] Onset: 2 Episodic Other upper respiratory disease (20 sources) Allergic rhinitis; Translations: [Allergic rhinitis, unspecified] Onset: 3 Chronic Peripheral and visceral atherosclerosis (10 sources) Peripheral vascular disease; Translations: [Peripheral vascular disease, unspecified] Onset: 3 02-18-2023 Chronic Residual codes; unclassified (3 sources) Obstructive sleep apnea syndrome; Translations: [Obstructive sleep apnea (adult) (pediatric)] Onset: 3 Chronic Residual codes; unclassified (3 sources) Localized edema; Translations: [Localized edema] Onset: 3 Episodic Residual codes; unclassified (17 sources) Bilateral lower limb edema 12-10-2022 Episodic Respiratory failure; insufficiency; arrest (adult) (14 sources) Chronic hypoxemic respiratory failure; Translations: [Chronic respiratory failure with hypoxia] Onset: 3 03-01-2023 Chronic Respiratory failure; insufficiency; arrest (adult) (10 sources) Acute hypoxemic respiratory failure; Translations: [Acute respiratory failure] Onset: 3 02-18-2023 Episodic Skin and subcutaneous tissue infections (2 sources) Cellulitis; Translations: [Cellulitis, unspecified] Onset: 3 Episodic Spondylosis; intervertebral disc disorders; other back problems (20 sources) Solitary sacroiliitis; Translations: [Sacroiliitis, not elsewhere classified] Onset: 2 Chronic Spondylosis; intervertebral disc disorders; other back problems (20 sources) Low back pain; Translations: [Lumbar facet joint pain] Onset: 2 Resolved: 9 02-20-2021 Episodic Unclassified (20 sources) Long-term current use of drug therapy 09-12-2020 Unclassified (20 sources) Patient encounter status 10-21-2020 Unclassified (1 source) Non-pressure chronic ulcer of unspecified part of right lower leg limited to breakdown of skin; Translations: [Non-pressure chronic ulcer of unspecified part of right lower leg limited to breakdown of skin] Onset: 3 Past or Other Problems Problem Classification Problem Date Documented Da te Episodic/Chronic Pulmonary heart disease (20 sources) H/O: pulmonary embolus; Translations: [Pulmonary embolism] Onset: 02-20-2022 02-19-2021 Episodic Results Test Name Value Interpretation Reference Range Teri dahly Physician Orderon 07-18-2023 Physician Order [id number]#1.00T IFF Normal [facility] Consent for Treatmenton Consent for Treatment [id number]#1.00T IFF Normal [facility] Heart and Vascular Office/Cl inic Noteon 07-17-2023 Heart and Vascular Office/Clinic Note Normal [facility] Comment on above: Result Comment: Elec tronically Signed By: Chidi ESPINAL, Matty [place]\.br\Date and Time Signed: 07/17/23 10:18 EST Pulmonary Function Studieson 07-15-2023 Pulmonary Function Studies Normal [facility] Comment on above: Result Comment: Elec tronically Signed By: Chidi ESPINAL, Matty [place]\.br\Date and Time Signed: 07/15/23 09:48 EST Consent for Treatmenton 06-13 Consent for Treatment [id number]#1.00T IFF Normal [facility] Pulmonary Function Testson 09-09-2022 Pulmonary Function Tests [id number]#1.00T IFF Normal [facility] Respiratory Therapy Noteson 07-10-2023 Respiratory Therapy Notes [id number]#1.00T IFF Normal [facility] Consent for Treatmenton 06-13 Consent for Treatment [id number]#1.00T IFF Normal [facility] Oncology Noteon 07-09-2023 Oncology Note Normal [facility] Comment on above: Result Comment: Elec tronically Signed By: Charles MARTINEZ, Isabelle\.br\Date and Time Signed: 07/09/23 10:41 EST Oncology Progress Noteon Oncology Progress Note Normal [facility] Auto Diffon 07-08-2023 Basophils/100 WBC (Bld) 0.7 % Normal 0.0-2.0 [facility] Comment on above: Order Comment: Order Added by Discern Expert. Performed By: #### 2 974498, 4772796, 93224172, 0344531 ####[address] [address] Basophils/Leukocyte s Auto (Bld) [Pure # fraction] 0.1 E9/L Normal 0.0-0.2 [facility] Comment on above: Order Comment: Order Added by Discern Expert. Performed By: #### 2 232541, 1967758, 03756337, 3787624 ####[address] [address] Eosinophils/100 WBC (Bld) 1.8 % Normal 0.0-8.0 [facility] Comment on above: Order Comment: Order Added by Discern Expert. Performed By: #### 2 899076, 2190096, 33114150, 0960242 ####[address] [address] Eosinophils/Leukocy [place] Auto (Bld) [Pure # fraction] 0.1 E9/L Normal 0.0-0.5 [facility] Comment on above: Order Comment: Order Added by Discern Expert. Performed By: #### 2 003841, 5766762, 57785054, 5389007 ####[address] [address] Lymphocytes/100 WBC (Bld) 31.1 % Normal 14.0-50.0 [facility] Comment on above: Order Comment: Order Added by Discern Expert. Performed By: #### 2 568007, 3929365, 10377207, 6025312 ####[address] [address] Lymphocytes/Leukocy [place] Auto (Bld) [Pure # fraction] 2.5 E9/L Normal 1.0-4.0 [facility] Comment on above: Order Comment: Order Added by Discern Expert. Performed By: #### 2 948623, 1145572, 60474217, 6068455 ####[address] [address] Monocytes/100 WBC (Bld) 8.6 % Normal 4.0-14.0 [facility] Comment on above: Order Comment: Order Added by Discern Expert. Performed By: #### 2 753432, 8963681, 71459859, 1414904 ####[address] [place] [address] Monocytes/Leukocyte s Auto (Bld) [Pure # fraction] 0.7 E9/L Normal 0.2-1.0 [facility] Comment on above: Order Comment: Order Added by Discern Expert. Performed By: #### 2 853042, 1714799, 06115901, 5922476 ####[address] [address] Neutrophils/100 WBC (Bld) 57.8 % Normal 36.0-75.0 [facility] Comment on above: Order Comment: Order Added by Discern Expert. Performed By: #### 2 557636, 6632782, 64195287, 2327162 ####[address] [address] Neutrophils/Leukocy [place] Auto (Bld) [Pure # fraction] 4.6 E9/L Normal 2.0-7.5 [facility] Comment on above: Order Comment: Order Added by Discern Expert. Performed By: #### 2 300300, 9349957, 48963632, 4364447 ####[address] [address] CBC w/ Auto Diffon Erythrocyte distribution width (RBC) [Ratio] 15.1 % High 10.9-14.2 [facility] Comment on above: Performed By: #### 2 976063, 2053575, 48673488, 4902255 ####[address] [place] [address] Hematocrit (Bld) [Volume fraction] 40.3 % Normal 37.7-49.0 [facility] Comment on above: Performed By: #### 2 248905, 5735031, 27518040, 9399872 ####[address] [address] Hemoglobin (Bld) [Mass/Vol] 13.2 g/dL Low 13.5-17.5 [facility] Comment on above: Performed By: #### 2 344311, 0292276, 28922596, 4800431 ####[place] MCH (RBC) [Entitic mass] 31.1 pg Normal 27.0-34.0 [facility] Comment on above: Performed By: #### 2 218540, 4305696, 69911717, 0394861 ####[address] MCHC (RBC) [Mass/Vol] 32.8 g/dL Normal 31.4-36.0 [facility] Comment on above: Performed By: #### 2 290027, 8492480, 59207397, 3270869 ####[place] [address] MCV (RBC) [Entitic vol] 94.6 fL Normal 80.0-100.0 [facility] Comment on above: Performed By: #### 2 124298, 1474762, 54473344, 3509051 ####[address] [address] Platelet mean volume (Bld) [Entitic vol] 7.9 fL Normal 6.4-10.8 [facility] Comment on above: Performed By: #### 2 333128, 1591023, 67015784, 0289672 ####[address] [address] Platelets (Bld) [#/Vol] 195.0 E9/L Normal 150.0-500.0 [facility] Comment on above: Performed By: #### 2 257880, 2757454, 61466150, 0803536 ####[address] [address] RBC (Bld) [#/Vol] 4.3 E12/L Normal 4.3-5.9 [facility] Comment on above: Performed By: #### 2 661172, 1504098, 87912767, 9620131 ####[address] [place] [address] WBC corrected for nucl RBC Auto (Bld) [#/Vol] 7.9 E9/L Normal 4.0-11.0 [facility] Comment on above: Performed By: #### 2 362573, 5453022, 56457049, 3668260 ####[address] [address] CMPon 07-08-2023 Albumin [Mass/Vol] 3.8 g/dL Normal 3.3-5.0 [facility] Comment on above: Performed By: #### 2 714105, 0728322, 08525748, 0904270 ####[address] [address] Albumin/Globulin (S) [Mass conc ratio] 0.9 Low 1.1-2.2 [facility] Comment on above: Performed By: #### 2 393067, 4394906, 88542064, 5192533 ####[address] [address] ALP [Catalytic activity/Vol] 52 Int._Unit/L Normal 21-98 [facility] Comment on above: Performed By: #### 2 313662, 3002592, 34450772, 5755737 ####[address] [address] ALT No additional P-5'-P [Catalytic activity/Vol] 36 Int._Unit/L Normal 6-46 [facility] Comment on above: Performed By: #### 2 120039, 3608734, 83067041, 3376548 ####[address] [address] Anion gap [Moles/Vol] 14 mmol/L Normal 6-16 [facility] Comment on above: Performed By: #### 2 377074, 9819960, 35908008, 5623623 ####[facility] [address] [place] [address] AST [Catalytic activity/Vol] 49 Int._Unit/L High 5-43 [facility] Comment on above: Performed By: #### 2 929726, 2639751, 75039396, 9658913 ####[facility] [address] [place] [address] Bilirubin [Mass/Vol] 0.5 mg/dL Normal 0.0-1.1 [facility] Comment on above: Performed By: #### 2 310869, 7901203, 11115166, 7069155 ####[facility] [address] [place] [address] Calcium [Mass/Vol] 9.4 mg/dL Normal 8.9-11.1 [facility] Comment on above: Performed By: #### 2 854840, 7500363, 52425562, 4933626 ####[facility] [address] [place] [address] Chloride [Moles/Vol] 100 mmol/L Low 101-111 [facility] Comment on above: Performed By: #### 2 493251, 0777279, 93848494, 0431281 ####[facility] [address] [place] [address] CO2 [Moles/Vol] 28 mmol/L Normal 21-31 [facility] Comment on above: Performed By: #### 2 550174, 4812313, 32056298, 7800421 ####[facility] [address] [place] [address] Creatinine [Mass/Vol] 1.2 mg/dL Normal 0.5-1.3 [facility] Comment on above: Performed By: #### 2 794930, 0241295, 65511964, 3882986 ####[facility] [address] [place] [address] Globulin (S) [Mass/Vol] 4.1 g/dL High 1.4-4.0 [facility] Comment on above: Performed By: #### 2 668170, 4874848, 90071158, 7862003 ####[facility] [address] [place] [address] Glucose [Mass/Vol] 101 mg/dL Normal 55-199 [facility] Comment on above: Result Comment: If t his glucose result represents a fasting glucose, interpretation should refer to the following reference range: 55-99 mg/dL Performed By: #### 2 858293, 5405114, 58051462, 2679624 ####[facility] [address] [place] [address] Potassium [Moles/Vol] 4.7 mmol/L Normal 3.5-5.3 [facility] Comment on above: Performed By: #### 2 000124, 1036139, 12236290, 6347791 ####[facility] [address] [place] [address] Protein [Mass/Vol] 7.9 g/dL High 6.0-7.8 [facility] Comment on above: Performed By: #### 2 756709, 5394635, 78822965, 8604366 ####[facility] [address] [place] [address] Sodium [Moles/Vol] 137 mmol/L Normal 135-145 [facility] Comment on above: Performed By: #### 2 880101, 1665479, 99035497, 2669934 ####[facility] [address] [place] [address] Urea nitrogen [Mass/Vol] 20 mg/dL Normal 5-21 [facility] Comment on above: Performed By: #### 2 187445, 1916499, 25998915, 2006933 ####[facility] [address] [place] [address] Urea nitrogen/Creatinine [Mass ratio] 17 No Units Normal 10-20 [facility] Comment on above: Performed By: #### 2 551216, 3997404, 58728084, 5670382 ####[facility] [address] [place] [address] Consent for Treatmenton 06-13 Consent for Treatment [id number]#1.00T IFF Normal [facility] D-Dimeron 07-08-2023 Fibrin D-dimer FEU (PPP) [Mass/Vol] 323 [id number] Normal 215-500 [facility] Comment on above: Result Comment: This assay is intended for use as an aid in the diagnosis of DVT or PE. These conditions cannot be excluded with certainty solely on the basis of a D-dimer concentration being within the reference rangeThis D-Dimer assay may be used in conjunction with a non-high clinical pretest probability assessment to exclude deep-vein thrombosis(DVT). For exclusion of venous thrombosis or pulmonary embolism the analyte D-Dimer should not be used as an aid in patients with:Therapeutic dose anticoagulant therapy for >24 hoursFibrinolytic therapy within previous 7 daysTrauma or surgery within previous 4 weeksDisseminated malignaciesAortic aneurysmSepsis, severe infections, pneumonia, severe skin infectionsLiver cirrhosisPregnancy Performed By: #### 2 547504 ####[facility] [address] [place] [address] eGFRon 07-08-2023 GFR/1.73 sq M.predicted among non-blacks MDRD (S/P/Bld) [Vol rate/Area] 63 mL/min/1.73 m2 Normal >=59 [facility] Comment on above: Order Comment: Order added by Discern Expert. Result Comment: Architectural Practice Manager cristo kidney disease could be indicated at eGFR's of less than 60 mL/min/1.73m2. Kidney failure is indicated at less than 15 mL/min/1.73m2. Performed By: #### 2 202241, 0799110, 74033980, 1859791 ####[facility] [address] [place] [address] Immunization Recordson 07-02 Immunization Records [id number]#1.00T IFF Normal [facility] Consent for Treatmenton 11-1 5-2023 Consent for Treatment [id number]#1.00T IFF Normal [facility] Heart and Vascular Office/Cl inic Noteon 06-26-2023 Heart and Vascular Office/Clinic Note Normal [facility] Comment on above: Result Comment: Elec tronically Signed By: Chidi ESPINAL, Matty Mello.br\Date and Time Signed: 06/26/23 10:23 EST Physician Orderon 06-26-2023 Physician Order [id number]#1.00 TIFF Normal [facility] Consultation Noteon 06-22-20 Consultation Note [id number]#1.00T IFF Normal [facility] Consultation Note [id number]#1.00T IFF Normal [facility] US LE Venous Duplex Insuffic iency Bilaton 06-12-2023 US LE Venous Duplex Insufficiency Bilat Normal [facility] Consent for Treatmenton 05-14 Consent for Treatment [id number]#1.00T IFF Normal [facility] RAD - MISCon 06-11-2023 RAD - MISC [id number]#1.00 TIFF Normal [facility] Consultation Noteon 06-09-20 Consultation Note [id number]#1.00TI FF Normal [facility] Consultation Note [id number]#1.00T IFF Normal [facility] Physician Referralon 023 Physician Referral [id number]#1.00 TIFF Normal [facility] CHEMISTRYOrdered By: SYSTEM SYSTEM on 06-03-2023 Albumin [Mass/Vol] 3.7 g/dL Normal 3.3 - 5.0 gm/dL [facility] Albumin/Globulin [Mass ratio] 0.9 {ratio} Low 1.1 - 2.2 [facility] ALP [Catalytic activity/Vol] 53 [iU]/d Normal 21 - 98 Int._Unit/L [facility] ALT No additional P-5'-P [Catalytic activity/Vol] 25 [iU]/d Normal 6 - 46 Int._Unit/L [facility] AST [Catalytic activity/Vol] 34 [iU]/d Normal 5 - 43 Int._Unit/L [facility] Bilirubin [Mass/Vol] 0.4 mg/dL Normal 0.0 - 1.1 mg/dL [facility] Bilirubin.direct [Mass/Vol] 0.1 mg/dL Normal 0.1 - 0.4 mg/dL [facility] Bilirubin.indirect [Mass or moles/Vol] 0.3 mg/dL Normal 0.1 - 0.9 mg/dL [facility] Cholesterol [Mass/Vol] 196 mg/dL Normal 120 - 200 mg/dL [facility] Cholesterol in HDL [Mass/Vol] 42 mg/dL Invalid Interpretation Code [facility] Comment on above: Interpretive Data: H DL > or equal to 60 mg/dL: Low cardiovascular risk HDL < 40 mg/dL : High cardiovascular risk Cholesterol in LDL [Mass/Vol] 129 mg/dL Normal <=129mg/dL [facility] Cholesterol in VLDL [Mass/Vol] 30 mg/dL Normal 7 - 40 mg/dL [facility] Globulin (S) [Mass/Vol] 4.1 g/dL High 1.4 - 4.0 gm/dL [facility] Protein [Mass/Vol] 7.8 g/dL Normal 6.0 - 7.8 gm/dL [facility] Triglyceride [Mass/Vol] 151 mg/dL High <=149mg/dL [facility] CHEMISTRYOrdered By: Ivy Sams on 06-03-2023 HbA1c (Bld) [Mass fraction] 7.2 % High <=5.9% FT [facility] Consent for Treatmenton 05-13 Consent for Treatment [id number]#1.00T IFF Normal [facility] Family Medicine Office/Clini c Noteon 06-03-2023 [facility] Medicine Office/Clinic Note Normal [facility] Comment on above: Result Comment: Elec tronically Signed By: Mt GOODEN DO, FAAFP\Date and Time Signed: 06/03/23 14:43 EDT Hep Func Panelon 06-03-2023 Albumin [Mass/Vol] 3.7 g/dL Normal 3.3-5.0 [facility] Comment on above: Performed By: #### 2 979908, 8667418 ####[facility] [address] [place] [address] Albumin/Globulin (S) [Mass conc ratio] 0.9 Low 1.1-2.2 [facility] Comment on above: Performed By: #### 2 287812, 9579797 ####[facility] [address] [place] [address] ALP [Catalytic activity/Vol] 53 Int._Unit/L Normal 21-98 [facility] Comment on above: Performed By: #### 2 598471, 0208527 ####[facility] [address] [place] [address] ALT No additional P-5'-P [Catalytic activity/Vol] 25 Int._Unit/L Normal 6-46 [facility] Comment on above: Performed By: #### 2 917046, 7538208 ####[facility] [address] [place] [address] AST [Catalytic activity/Vol] 34 Int._Unit/L Normal 5-43 [facility] Comment on above: Performed By: #### 2 360773, 5818383 ####[facility] [address] [place] [address] Bilirubin [Mass/Vol] 0.4 mg/dL Normal 0.0-1.1 [facility] Comment on above: Performed By: #### 2 114231, 7296023 ####[facility] [address] [place] [address] Bilirubin.direct [Mass/Vol] 0.1 mg/dL Normal 0.1-0.4 [facility] Comment on above: Performed By: #### 2 034893, 8615234 ####[facility] [address] [place] [address] Bilirubin.indirect [Mass or moles/Vol] 0.3 mg/dL Normal 0.1-0.9 [facility] Comment on above: Performed By: #### 2 742777, 0682875 ####[facility] [address] [place] [address] Globulin (S) [Mass/Vol] 4.1 g/dL High 1.4-4.0 [facility] Comment on above: Performed By: #### 2 322924, 9560818 ####[address] [address] Protein [Mass/Vol] 7.8 g/dL Normal 6.0-7.8 [facility] Comment on above: Performed By: #### 2 713956, 0421017 ####[facility] [address] [place] [address] AkpV6yle 06-03-2023 HbA1c (Bld) [Mass fraction] 7.2 % High <=5.9 [facility] Comment on above: Performed By: #### 7 [id number] ####[facility] [address] [place] [address] Lipid Panelon 06-03-2023 Cholesterol [Mass/Vol] 196 mg/dL Normal 120-200 [facility] Comment on above: Performed By: #### 2 606962, 9673767 ####[facility] [address] [place] [address] Cholesterol in HDL [Mass/Vol] 42 mg/dL Invalid Interpretation Code [facility] Comment on above: Result Comment: HDL > or equal to 60 mg/dL: Low cardiovascular riskHDL < 40 mg/dL : High cardiovascular risk Performed By: #### 2 556373, 6096623 ####[facility] [address] [place] [address] Cholesterol in LDL [Mass/Vol] 129 mg/dL Normal <=129 [facility] Comment on above: Performed By: #### 2 316170, 9406645 ####[facility] [address] [place] [address] Cholesterol in VLDL [Mass/Vol] 30 mg/dL Normal 7-40 [facility] Comment on above: Performed By: #### 2 713350, 9268963 ####[facility] [address] [place] [address] Triglyceride [Mass/Vol] 151 mg/dL High <=149 [facility] Comment on above: Performed By: #### 2 033980, 5617680 ####[facility] [address] [place] [address] Patient Educationon 06-03-20 Patient Education Normal [facility] Physician Orderon 05-30-2023 Physician Order [id number]#1.00T IFF [facility] Consultation Noteon 05-28-20 Consultation Note [id number]#1.00T IFF [facility] Consultation Noteon 05-27-20 Consultation Note [id number]#1.00T IFF Normal [facility] Immunization Recordson 05-22 Immunization Records [id number]#1.00 TIFF Normal [facility] Consultation Noteon 05-16-20 Consultation Note [id number]#1.00T IFF [facility] Consent for Procedure/Surger yon 04-23-2023 Consent for Procedure/Surgery [id number]#1.00 CD:127 Normal [facility] Consent for Treatmenton 04-12 Consent for Treatment [id number]#1.00C D:127 [facility] Consent to Photographon 04-12 Consent to Photograph [id number]#1.00 CD:127 [facility] Correspondence - Woundon Correspondence - Wound [id number]#1.00 CD:127 [facility] Correspondence - Wound [id number]#1.00 CD:127 [facility] Multi-Wound Charton 04-23-20 Multi-Wound Chart [id number]#1.00 CD:127 [facility] Nursing Assessment - Woundon 04-23-2023 Nursing Assessment - Wound [id number]#2.00 CD:127 [facility] Nursing Assessment - Wound [id number]#1.00 CD:127 [facility] Nursing Note - Woundon 04-23 Nursing Note - Wound [id number]#1.00 CD:127 [facility] Physician Orderon 04-23-2023 Physician Order [id number]#1.00 CD:127 [facility] Procedure - Woundon 04-23-20 Procedure - Wound [id number]#1.00 CD:127 [facility] Progress Note - Woundon 04-12 Progress Note - Wound [id number]#1.00 CD:127 [facility] Lab Miscellaneous-LCon 04-12 Lab Miscellaneous COMMENT Invalid Interpretation Code [facility] Comment on above: Result Comment: Test Ordered: [id number] Antithrombin ActivityAntithrombin Activity 109 % BNReference Range: 75-135Direct Xa inhibitor anticoagulants such as rivaroxaban, apixaban andedoxaban will lead to spuriously elevated antithrombin activitylevels possibly masking a deficiency.Performed at: [facility] [address] [place], [place] [id number] PhD Quinn Pinedo Performed By: #### 1 [id number] ####[facility] [address] [place] [address] COAGULATIONOrdered By: Claudia Caballero on 04-10-2023 Fibrin D-dimer FEU (PPP) [Mass/Vol] 552 ng/mL FEU Invalid Interpretation Code 215 - 500 ng/mL FEU [facility] Auto Coag Comment on above: Result Comment: Resu lts Called To Shabana Zendejas By JUDIE_ And Read Back For Confirmation On 04/10/2023 08:58:49 EDT_. Consent for Treatmenton 03-14 Consent for Treatment [id number]#1.00C D:127 Normal [facility] D-Dimeron 04-10-2023 Fibrin D-dimer FEU (PPP) [Mass/Vol] 552 CD:[id number] Abnormal 215-500 [facility] Comment on above: Result Comment: Resu lts Called To Shabana Zendejas By JUDIE_ And Read Back For Confirmation On 04/10/2023 08:58:49 EDT_.This assay is intended for use as an aid in the diagnosis of DVT or PE. These conditions cannot be excluded with certainty solely on the basis of a D-dimer concentration being within the reference rangeThis D-Dimer assay may be used in conjunction with a non-high clinical pretest probability assessment to exclude deep-vein thrombosis(DVT). For exclusion of venous thrombosis or pulmonary embolism the analyte D-Dimer should not be used as an aid in patients with:Therapeutic dose anticoagulant therapy for >24 hoursFibrinolytic therapy within previous 7 daysTrauma or surgery within previous 4 weeksDisseminated malignaciesAortic aneurysmSepsis, severe infections, pneumonia, severe skin infectionsLiver cirrhosisPregnancy Performed By: #### 2 [id number] ####[facility] [address] [place] [address] Lab Miscellaneous-LCon 04-10 Test Code 064142 Invalid Interpretation Code [facility] Comment on above: Performed By: #### 1 [id number] ####[facility] [address] [place] [address] Test Name AT activ Invalid Interpretation Code [facility] Comment on above: Performed By: #### 1 [id number] ####[facility] [address] [place] [address] Reference Laboratory Testing Ordered By: Sylwia Lubin on 04-10-2023 Test Code 499117 Invalid Interpretation Code [facility] SendOutsSS Test Name AT activ Invalid Interpretation Code [facility] SendOutsSS Consent for Treatmenton 03-13 Consent for Treatment [id number]#1.00C D:127 Normal [facility] Oncology Noteon 04-09-2023 Oncology Note Normal [facility] Comment on above: Result Comment: Elec tronically Signed By: Charles MARTINEZ, Isabelle\.br\Date and Time Signed: 04/09/23 11:08 EDT Oncology Progress Noteon Oncology Progress Note Normal [facility] Auto Diffon 04-05-2023 Basophils/100 WBC (Bld) 0.7 % Normal 0.0-2.0 [facility] Comment on above: Order Comment: Order Added by Discern Expert. Performed By: #### 2 559010, 0647488, 5294838, 61161880 ####[facility] [address] [place] [address] Basophils/Leukocyte s Auto (Bld) [Pure # fraction] 0.0 E9/L Normal 0.0-0.2 [facility] Comment on above: Order Comment: Order Added by Discern Expert. Performed By: #### 2 120473, 1746684, 8983923, 65481703 ####[facility] [address] [place] [address] Eosinophils/100 WBC (Bld) 3.3 % Normal 0.0-8.0 [facility] Comment on above: Order Comment: Order Added by Discern Expert. Performed By: #### 2 280227, 4853465, 5849784, 14135558 ####[address] [address] Eosinophils/Leukocy [place] Auto (Bld) [Pure # fraction] 0.2 E9/L Normal 0.0-0.5 [facility] Comment on above: Order Comment: Order Added by Discern Expert. Performed By: #### 2 218992, 9647260, 3549974, 35989103 ####[address] [address] Lymphocytes/100 WBC (Bld) 27.4 % Normal 14.0-50.0 [facility] Comment on above: Order Comment: Order Added by Discern Expert. Performed By: #### 2 890861, 8424506, 7349621, 17044529 ####[address] [address] Lymphocytes/Leukocy [place] Auto (Bld) [Pure # fraction] 1.6 E9/L Normal 1.0-4.0 [facility] Comment on above: Order Comment: Order Added by Discern Expert. Performed By: #### 2 165938, 3854576, 3091862, 71748736 ####[address] [address] Monocytes/100 WBC (Bld) 8.2 % Normal 4.0-14.0 [facility] Comment on above: Order Comment: Order Added by Discern Expert. Performed By: #### 2 884040, 8020933, 2028443, 33064504 ####[address] [address] Monocytes/Leukocyte s Auto (Bld) [Pure # fraction] 0.5 E9/L Normal 0.2-1.0 [facility] Comment on above: Order Comment: Order Added by Discern Expert. Performed By: #### 2 941623, 0039300, 0791821, 94031584 ####[place] [place] [address] Neutrophils/100 WBC (Bld) 60.4 % Normal 36.0-75.0 [facility] Comment on above: Order Comment: Order Added by Discern Expert. Performed By: #### 2 032359, 8312051, 5871258, 90338747 ####[address] [address] Neutrophils/Leukocy [place] Auto (Bld) [Pure # fraction] 3.6 E9/L Normal 2.0-7.5 [facility] Comment on above: Order Comment: Order Added by Discern Expert. Performed By: #### 2 198046, 4888559, 9602034, 16081596 ####[address] [address] CBC w/ Auto Diffon Erythrocyte distribution width (RBC) [Ratio] 14.5 % High 10.9-14.2 [facility] Comment on above: Performed By: #### 2 984619, 6753274, 4347208, 16940363 ####[address] [address] Hematocrit (Bld) [Volume fraction] 39.5 % Normal 37.7-49.0 [facility] Comment on above: Performed By: #### 2 968849, 8774333, 7901073, 68650758 ####[address] [address] Hemoglobin (Bld) [Mass/Vol] 13.2 g/dL Low 13.5-17.5 [facility] Comment on above: Performed By: #### 2 990425, 9776577, 4783711, 15170748 ####[address] [place] [address] MCH (RBC) [Entitic mass] 31.3 pg Normal 27.0-34.0 [facility] Comment on above: Performed By: #### 2 208849, 6940698, 7012530, 37844726 ####[place] [address] MCHC (RBC) [Mass/Vol] 33.4 g/dL Normal 31.4-36.0 [facility] Comment on above: Performed By: #### 2 207667, 1560231, 0710979, 12570443 ####[place] [address] MCV (RBC) [Entitic vol] 93.8 fL Normal 80.0-100.0 [facility] Comment on above: Performed By: #### 2 093759, 5031542, 3595015, 03200563 ####[address] [address] Platelet mean volume (Bld) [Entitic vol] 7.8 fL Normal 6.4-10.8 [facility] Comment on above: Performed By: #### 2 494132, 1047852, 5657060, 52433295 ####[address] [address] Platelets (Bld) [#/Vol] 152.0 E9/L Normal 150.0-500.0 [facility] Comment on above: Performed By: #### 2 442552, 7583520, 0737946, 47415058 ####[address] [address] RBC (Bld) [#/Vol] 4.2 E12/L Low 4.3-5.9 [facility] Comment on above: Performed By: #### 2 459184, 0601061, 6325892, 50209689 ####[address] [address] WBC corrected for nucl RBC Auto (Bld) [#/Vol] 6.0 E9/L Normal 4.0-11.0 [facility] Comment on above: Performed By: #### 2 075278, 2756315, 9903075, 21227956 ####[facility] [address] [place] [id number] CHEMISTRYOrdered By: SYSTEM SYSTEM on 04-05-2023 Albumin [Mass/Vol] 3.5 g/dL Normal 3.3 - 5.0 gm/dL [facility] Remisol Albumin/Globulin [Mass ratio] 1.0 {ratio} Low 1.1 - 2.2 [facility] Remisol ALP [Catalytic activity/Vol] 51 [iU]/d Normal 21 - 98 Int._Unit/L [facility] Remisol ALT No additional P-5'-P [Catalytic activity/Vol] 31 [iU]/d Normal 6 - 46 Int._Unit/L [facility] Remisol Anion gap [Moles/Vol] 13 mmol/L Normal 6 - 16 mEq/L [facility] Remisol AST [Catalytic activity/Vol] 41 [iU]/d Normal 5 - 43 Int._Unit/L [facility] Remisol Bilirubin [Mass/Vol] 0.6 mg/dL Normal 0.0 - 1.1 mg/dL [facility] Remisol Calcium [Mass/Vol] 8.8 mg/dL Low 8.9 - 11.1 mg/dL [facility] Remisol Chloride [Moles/Vol] 97 mmol/L Low 101 - 111 mmol/L [facility] CO2 [Moles/Vol] 30 mmol/L Normal 21 - 31 mmol/L [facility] Remisol Creatinine [Mass/Vol] 1.0 mg/dL Normal 0.5 - 1.3 mg/dL [facility] Remisol GFR/1.73 sq M.predicted among non-blacks MDRD (S/P/Bld) [Vol rate/Area] 78 mL/min/1.73 m2 Normal >=59mL/min/1.73 m2 FT Chem S Globulin (S) [Mass/Vol] 3.7 g/dL Normal 1.4 - 4.0 gm/dL [facility] Remisol Glucose [Mass/Vol] 153 mg/dL Normal 55 - 199 mg/dL [facility] Remisol Potassium [Moles/Vol] 3.9 mmol/L Normal 3.5 - 5.3 mmol/L [facility] Remisol Protein [Mass/Vol] 7.2 g/dL Normal 6.0 - 7.8 gm/dL [facility] Remisol Sodium [Moles/Vol] 136 mmol/L Normal 135 - 145 mmol/L [facility] Remisol Urea nitrogen [Mass/Vol] 17 mg/dL Normal 5 - 21 mg/dL [facility] Remisol Urea nitrogen/Creatinine [Mass ratio] 17 mg/mg Normal 10 - 20 [facility] Remisol CMPon 04-05-2023 Anion gap [Moles/Vol] 13 mmol/L Normal 6-16 [facility] Comment on above: Performed By: #### 2 290707, 9500940, 3042331, 18840805 ####[facility] [address] [place] [address] Calcium [Mass/Vol] 8.8 mg/dL Low 8.9-11.1 [facility] Comment on above: Performed By: #### 2 847401, 7529319, 6639804, 45027281 ####[facility] [address] [place] [address] Chloride [Moles/Vol] 97 mmol/L Low 101-111 [facility] Comment on above: Performed By: #### 2 838318, 9364900, 3119180, 18198610 ####[facility] [address] [place] [address] CO2 [Moles/Vol] 30 mmol/L Normal 21-31 [facility] Comment on above: Performed By: #### 2 173577, 3302299, 3611284, 44789319 ####[facility] [address] [place] [address] Glucose [Mass/Vol] 153 mg/dL Normal 55-199 [facility] Comment on above: Result Comment: If t his glucose result represents a fasting glucose, interpretation should refer to the following reference range: 55-99 mg/dL Performed By: #### 2 033462, 5563524, 7047788, 72287373 ####[facility] [address] [place] [address] Potassium [Moles/Vol] 3.9 mmol/L Normal 3.5-5.3 [facility] Comment on above: Performed By: #### 2 677674, 1066710, 0455850, 09655017 ####[facility] [address] [place] [address] Sodium [Moles/Vol] 136 mmol/L Normal 135-145 [facility] Comment on above: Performed By: #### 2 269174, 5573167, 0311224, 52444999 ####[address] [address] Albumin [Mass/Vol] 3.5 g/dL Normal 3.3-5.0 [facility] Comment on above: Performed By: #### 2 789037, 9829154, 4836418, 40913140 ####[address] [address] Albumin/Globulin (S) [Mass conc ratio] 1.0 Low 1.1-2.2 [facility] Comment on above: Performed By: #### 2 063889, 0126417, 4792598, 04986624 ####[facility] [address] [place] [address] ALP [Catalytic activity/Vol] 51 Int._Unit/L Normal 21-98 [facility] Comment on above: Performed By: #### 2 483798, 3408623, 4735327, 13198500 ####[address] [place] [address] ALT No additional P-5'-P [Catalytic activity/Vol] 31 Int._Unit/L Normal 6-46 [facility] Comment on above: Performed By: #### 2 591229, 0216595, 7919168, 08417121 ####[facility] [address] [place] [address] AST [Catalytic activity/Vol] 41 Int._Unit/L Normal 5-43 [facility] Comment on above: Performed By: #### 2 285665, 0752829, 7315976, 24149720 ####[address] [address] Bilirubin [Mass/Vol] 0.6 mg/dL Normal 0.0-1.1 [facility] Comment on above: Performed By: #### 2 791637, 3407209, 0537521, 33345291 ####[facility] [address] [place] [address] Creatinine [Mass/Vol] 1.0 mg/dL Normal 0.5-1.3 [facility] Comment on above: Performed By: #### 2 085073, 5639062, 2108911, 80270917 ####[facility] [address] [place] [address] Globulin (S) [Mass/Vol] 3.7 g/dL Normal 1.4-4.0 [facility] Comment on above: Performed By: #### 2 585066, 7972605, 3831066, 69611537 ####[facility] [address] [place] [address] Protein [Mass/Vol] 7.2 g/dL Normal 6.0-7.8 [facility] Comment on above: Performed By: #### 2 166775, 6742316, 1878625, 11129414 ####[facility] [address] [place] [address] Urea nitrogen [Mass/Vol] 17 mg/dL Normal 5-21 [facility] Comment on above: Performed By: #### 2 860496, 2225549, 5430411, 80586924 ####[facility] [address] [place] [address] Urea nitrogen/Creatinine [Mass ratio] 17 No Units Normal 10-20 [facility] Comment on above: Performed By: #### 2 983741, 1271152, 4418112, 93889681 ####[facility] [address] [place] [address] Consent for Treatmenton 03-13 Consent for Treatment [id number]#1.00C D:127 Normal [facility] HEMATOLOGYOrdered By: SYSTEM SYSTEM on 04-05-2023 Basophils/100 WBC (Bld) 0.7 % Normal 0.0 - 2.0 % [facility] HemeAutoSS Basophils/Leukocyte s Auto (Bld) [Pure # fraction] 0.0 E9/L Normal 0.0 - 0.2 E9/L [facility] HemeAutoSS Eosinophils/100 WBC (Bld) 3.3 % Normal 0.0 - 8.0 % [facility] HemeAutoSS Eosinophils/Leukocy [place] Auto (Bld) [Pure # fraction] 0.2 E9/L Normal 0.0 - 0.5 E9/L [facility] HemeAutoSS Lymphocytes/100 WBC (Bld) 27.4 % Normal 14.0 - 50.0 % [facility] HemeAutoSS Lymphocytes/Leukocy [place] Auto (Bld) [Pure # fraction] 1.6 E9/L Normal 1.0 - 4.0 E9/L [facility] HemeAutoSS Monocytes/100 WBC (Bld) 8.2 % Normal 4.0 - 14.0 % [facility] HemeAutoSS Monocytes/Leukocyte s Auto (Bld) [Pure # fraction] 0.5 E9/L Normal 0.2 - 1.0 E9/L [facility] HemeAutoSS Neutrophils/100 WBC (Bld) 60.4 % Normal 36.0 - 75.0 % [facility] HemeAutoSS Neutrophils/Leukocy [place] Auto (Bld) [Pure # fraction] 3.6 E9/L Normal 2.0 - 7.5 E9/L [facility] HemeAutoSS HEMATOLOGYOrdered By: Keturah Bar on 04-05-2023 Erythrocyte distribution width (RBC) [Ratio] 14.5 % High 10.9 - 14.2 % [facility] HemeAutoSS Hematocrit (Bld) [Volume fraction] 39.5 % Normal 37.7 - 49.0 % [facility] HemeAutoSS Hemoglobin (Bld) [Mass/Vol] 13.2 g/dL Low 13.5 - 17.5 gm/dL [facility] HemeAutoSS MCH (RBC) [Entitic mass] 31.3 pg Normal 27.0 - 34.0 pg [facility] HemeAutoSS MCHC (RBC) [Mass/Vol] 33.4 g/dL Normal 31.4 - 36.0 gm/dL [facility] HemeAutoSS MCV (RBC) [Entitic vol] 93.8 fL Normal 80.0 - 100.0 fL [facility] HemeAutoSS Platelet mean volume (Bld) [Entitic vol] 7.8 fL Normal 6.4 - 10.8 fL [facility] HemeAutoSS Platelets (Bld) [#/Vol] 152.0 E9/L Normal 150.0 - 500.0 E9/L [facility] HemeAutoSS RBC (Bld) [#/Vol] 4.2 E12/L Low 4.3 - 5.9 E12/L [facility] HemeAutoSS WBC corrected for nucl RBC Auto (Bld) [#/Vol] 6.0 E9/L Normal 4.0 - 11.0 E9/L [facility] HemeAutoSS eGFRon 04-05-2023 GFR/1.73 sq M.predicted among non-blacks MDRD (S/P/Bld) [Vol rate/Area] 78 mL/min/1.73 m2 Normal >=59 [facility] Comment on above: Order Comment: Order added by Discern Expert. Result Comment: Architectural Practice Manager cristo kidney disease could be indicated at eGFR's of less than 60 mL/min/1.73m2. Kidney failure is indicated at less than 15 mL/min/1.73m2. Performed By: #### 2 288534, 3476324, 0011246, 05092202 ####[facility] [address] [place] [address] Patient Eval Forms Officeon 04-01-2023 Patient Eval Forms Office [id number]#1.00C D:127 Normal [facility] Consent for Treatmenton 03-12 Consent for Treatment [id number]#1.00C D:127 Normal [facility] Sleep Office/Clinic Noteon 0 03-29-2023 Sleep Office/Clinic Note Normal [facility] Comment on above: Result Comment: Elec tronically Signed By: Chidi ESPINAL, [place]\.br\Date and Time Signed: 03/29/23 10:20 EDT Population Healthon 03-21-20 23 Population Health Normal [facility] C Blood Charcoalon 08-09-202 3 Blood Culture Charcoal Normal [facility] Comment on above: Performed By: #### 1 0564148 ####[facility] [address] [place] [address] Blood Culture Charcoal Normal [facility] Comment on above: Performed By: #### 1 6054773 ####[facility] [address] [place] [address] .VIPER VENOM MIXING STUDYon 03-18-2023 dRVVT w 1:1 PNP Coag (PPP) [Time] 45.3 second(s) High 0.0-40.4 [facility] Comment on above: Result Comment: Perf ormed at: [facility] [address] [id number] MD Taye Sadler Performed By: #### 1 1487147, 10406953, 970846445, 2972106, 83620990, 0339750, 5503996, 46118917, 7763899 ####[facility] [address] [place] [address] Beta-2 Glycoprot.i Aon 03-18 Beta 2 glycoprotein 1 IgA Qn (S) <9 Invalid Interpretation Code 0-25 [facility] Comment on above: Result Comment: The reference interval reflects a 3SD or 99th percentile interval,which is thought to represent a potentially clinically significantresult in accordance with the International Consensus Statement onthe classification criteria for definitive antiphospholipid syndrome(APS). J Thromb Haem 2006;4:295-306. Performed By: #### 1 4399672, 60807510, 490497661, 8716203, 57747264, 6425799, 2805669, 06988705, 3510244 ####[facility] [address] [place] [address] Beta 2 glycoprotein 1 IgG Qn (S) <9 Invalid Interpretation Code 0-20 [facility] Comment on above: Result Comment: The reference interval reflects a 3SD or 99th percentile interval,which is thought to represent a potentially clinically significantresult in accordance with the International Consensus Statement onthe classification criteria for definitive antiphospholipid syndrome(APS). J Thromb Haem 2006;4:295-306. Performed By: #### 1 9410186, 09390411, 630033707, 6591096, 78611294, 8879653, 3054030, 39889953, 9673935 ####[facility] [address] [place] [address] Beta 2 glycoprotein 1 IgM Qn (S) <9 Invalid Interpretation Code 0-32 [facility] Comment on above: Result Comment: The reference interval reflects a 3SD or 99th percentile interval,which is thought to represent a potentially clinically significantresult in accordance with the International Consensus Statement onthe classification criteria for definitive antiphospholipid syndrome(APS). J Thromb Haem 2006;4:295-306.Performed at: [facility] [id number] MD Taye Sadler Performed By: #### 1 8571535, 26525901, 504578800, 5968448, 05121644, 1760765, 3297299, 16140705, 9019262 ####[facility] [address] [place] [address] Consultation Noteon 03-18-20 Consultation Note [id number]#1.00C D:127 Normal [facility] Factor II, DNA Analysison F2 gene c.13519U>A genotype Molgen (Bld/Tiss) Comment Invalid Interpretation Code [facility] Comment on above: Result Comment: Resu lt: c.*97G>A - Not DetectedThis result is not associated with an increased risk for venousthromboembolism. See Additional Clinical Information andComments.Additional Clinical Information:Venous thromboembolism is a multifactorial disease influenced bygenetic, environmental, and circumstantial risk factors. The c.*97G>Avariant in the F2 gene is a genetic risk factor for venousthromboembolism. Heterozygous carriers have a 2- to 4-fold increasedrisk for venous thromboembolism. Homozygotes for the c.*97G>A variantare rare. The annual risk of VTE in homozygotes has been reported willard 1.1%/year. Individuals who carry both a c.*97G>A variant in theF2 gene and a c.1601G>A (p. Nac155Iaa) variant in the F5 gene(commonly referred to as Factor V Leiden) have an approximately 20-fold increased risk for venous thromboembolism. Risks are likely willard even higher in more complex genotype combinations involving theF2 c.*97G>A variant and Factor V Leiden (PMID: 00501011). Additionalrisk factors include but are not limited to: deficiency of protein C,protein S, or antithrombin III, age, male sex, personal or familyhistory of deep vein thromboembolism, smoking, surgery, prolongedimmobilization, malignant neoplasm, tamoxifen treatment, raloxifenetreatment, oral contraceptive use, hormone replacement therapy, andpregnancy. Management of thrombotic risk and thrombotic events shouldfollow established guidelines and fit the clinical circumstance. Thisresult cannot predict the occurrence or recurrence of a thromboticevent.Comments:Genetic counseling is recommended to discuss the potential clinicalimplications of positive results, as well as recommendations fortesting family members.Genetic Coordinators are available for health care providers to discussresults at [phone]).Test Details:Variant analyzed: c.*97G>A, previously referred to as T17550LYhxjpio/Limitations:DNA analysis of the F2 gene (NM_000506.5) was performed by PCRamplification followed by restriction enzyme analysis. The diagnosticsensitivity is >99%. Results must be combined with clinicalinformation for the most accurate interpretation. Molecular-basedtesting is highly accurate, but as in any laboratory test, diagnosticerrors may occur. False positive or false negative results may occurfor reasons that include genetic variants, blood transfusions, bonemarrow transplantation, somatic or tissue-specific mosaicism,mislabeled samples, or erroneous representation of familyrelationships.This test was developed and its performance characteristics determinedby [employer]. It has not been cleared or approved by the Food and DrugAdministration.References:Lonny S, Leonie AK, Geovani R, Nakul WW, González TARIQ; [employer] ProfessionalPractice and Guidelines Committee. Addendum: [employer] consensus statement on factor V Leiden mutationtesting. Evon Med. 2020Oct 14. doi: 10.1038/r09260-339-99679-m.PMID: 48558639.Sharif GUERRA. Prothrombin Thrombophilia. 2005Mar 05[Updated 2020Sep 15]. In: Douglas MP, Corey HH, Sierra RA, et al.,editors. Khushi(Minal) [Internet]. [place] ([place]): [facility]; 2566-6358. Available from:https://www.ncbi.nlm.nih.gov/books/NIN5901/Nathan S, Leonie AK, Keagan X, Raghav B, Celina EB, Caroline P, Jamey CS;[facility] Limousine Driver Committee. Venous thromboembolismlaboratory testing (factor V Leiden and factor II c.*97G>A),2018 update: a technical standard of the [employer] and [employer] ([employer]MG). Evon Med. 2018 Jul;20(12):7175-7754.doi: 10.1038/e59108-538-2635-v. Epub 2017May 16. PMID: 69590599. Performed By: #### 1 1387833, 11807095, 264548591, 9050466, 24694025, 6915989, 7177733, 97916929, 8333795 ####[facility] [address] [place] [address] Factor V Leidenon 03-18-2023 F5 gene p.Cqg253Pkn [facility] (Bld/Tiss) Comment Invalid Interpretation Code [facility] Comment on above: Result Comment: Resu lt: c.1601G>A (p.Mgd496Ayx) - Not DetectedThis result is not associated with an increased risk for venousthromboembolism. See Additional Clinical Information andComments.Additional Clinical Information:Venous thromboembolism is a multifactorial disease influenced bygenetic, environmental, and circumstantial risk factors. The c.1601G>A(p. Ial043Cic) variant in the F5 gene, commonly referred to as FactorV Leiden, is a genetic risk factor for venous thromboembolism.Heterozygous carriers of this variant have a 6- to 8-fold increasedrisk for venous thromboembolism. Individuals homozygous for thisvariant (ie, with a copy of the variant on each chromosome) have anapproximately 80-fold increased risk for venous thromboembolism.Individuals who carry both a c.*97G>A variant in the F2 gene andFactor V Leiden have an approximately 20-fold increased risk forvenous thromboembolism. Risks are likely to be even higher in morecomplex genotype combinations involving the F2 c.*97G>A variant andFactor V Leiden (PMID: 28017099). Additional risk factors include butare not limited to: deficiency of protein C, protein S, orantithrombin III, age, male sex, personal or family history of deepvein thromboembolism, smoking, surgery, prolonged immobilization,malignant neoplasm, tamoxifen treatment, raloxifene treatment, oralcontraceptive use, hormone replacement therapy, and .Management of thrombotic risk and thrombotic events should followestablished guidelines and fit the clinical circumstance. This resultcannot predict the occurrence or recurrence of a thrombotic event.Comment:Genetic counseling is recommended to discuss the potential clinicalimplications of positive results, as well as recommendations fortesting family members.Genetic Coordinators are available for health care providers todiscuss results at [phone]).Test Details:Variant Analyzed: c.1601G>A (p. Cfh393Egs), referred to as Factor VLeidenMethods/Limitations:DNA analysis of the F5 gene (NM_000130.5) was performed by PCRamplification followed by restriction enzyme analysis. The diagnosticsensitivity is >99%. Results must be combined with clinicalinformation for the most accurate interpretation. Molecular-basedtesting is highly accurate, but as in any laboratory test, diagnosticerrors may occur. False positive or false negative results may occurfor reasons that include genetic variants, blood transfusions, bonemarrow transplantation, somatic or tissue-specific mosaicism,mislabeled samples, or erroneous representation of familyrelationships.This test was developed and its performance characteristicsdetermined by [facility] [employer]. It has not been cleared or approved by theFood and Drug Administration.References:Lonny S, Leonie AK, Geovani R, Nakul WW, González TARIQ; ACMG ProfessionalPractice and Guidelines Committee. Addendum: [employer] consensus statement on factor V Leiden mutationtesting. Veon Med. 2020Oct 14. doi: 10.1038/[id number]-y.PMID: 66618318.Sharif GUERRA. Factor V Leiden Thrombophilia. 1998December 23(Updated 2017Aug 15). In: Douglas MP, Corey HH, Sierra RA, et al.,editors. Khushi(Minal) (Internet). [place] ([place]): [facility]; 6065-8629. Available from:https://www.ncbi.nlm.nih.gov/books/KMQ6689/Nathan S, Leonie AK, Keagan X, Raghav B, Celina EB, Caroline P, Jamey CS;[facility] Limousine Driver Committee. Venous thromboembolismlaboratory testing (factor V Leiden and factor II c.*97G>A), 2018update: a technical standard of the [employer] and Gen[employer] (ACMG). Evon Med. 2018 Jul;20(12):6665-9899.doi: 10.1038/[id number]. Epub 2017May 16. PMID: 93344552. Performed By: #### 1 1243972, 33031983, 907650977, 9204340, 98623531, 8880648, 3444222, 88869320, 6085627 ####[facility] [address] [place] [address] Lupus Anticoagon 03-18-2023 aPTT.lupus sensitive Coag (PPP) [Time] 32.6 second(s) Invalid Interpretation Code 0.0-43.5 [facility] Comment on above: Performed By: #### 1 2587885, 66842482, 033058281, 4184613, 48686321, 2878476, 9086431, 06946597, 9064768 ####[facility] [address] [place] [address] dRVVT Coag (PPP) [Time] 50.9 second(s) High 0.0-47.0 [facility] Comment on above: Result Comment: Perf ormed at: [facility] [address] [id number] MD Taye Sadler Performed By: #### 1 7774779, 99195173, 869792529, 4468869, 67390321, 2825738, 1469140, 61554531, 2509051 ####[address] [place] [address] Lupus anticoagulant two screening tests W Reflex Coag (PPP) [Interp] Comment: Invalid Interpretation Code [facility] Comment on above: Result Comment: No l upus anticoagulant was detected. These results are consistent withspecific inhibitors to one or more common pathway factors (X, V, II orfibrinogen).Performed at: [address] [id number] MD Taye Sadler Performed By: #### 1 7278276, 62818196, 052636801, 7574673, 57672599, 8016056, 0695942, 89794974, 7890474 ####[address] [place] [address] dRVVT CONFIRMon 03-18-2023 dRVVT/dRVVT.excess phospholipid Coag (PPP) [Ratio] 0.9 ratio Invalid Interpretation Code 0.8-1.2 [facility] Comment on above: Result Comment: Perf ormed at: [address] [id number] MD Taye Sadler Performed By: #### 1 4383126, 65655514, 862122243, 7880851, 15644238, 7893140, 0634289, 17591551, 1383874 ####[address] [place] [address] Auto Diffon 03-13-2023 Basophils/100 WBC (Bld) 0.6 % Normal 0.0-2.0 [facility] Comment on above: Order Comment: Order Added by Discern Expert. Performed By: #### 2 756454, 6448689, 9650416, 53521044, 96815822, 85300652, 7531192, 3302009 ####[address] [place] [address] Basophils/Leukocyte s Auto (Bld) [Pure # fraction] 0.1 E9/L Normal 0.0-0.2 [facility] Comment on above: Order Comment: Order Added by Discern Expert. Performed By: #### 2 770884, 4783442, 3520193, 38911421, 97002091, 71309531, 4901337, 0840711 ####[facility] [address] [place] [address] Eosinophils/100 WBC (Bld) 2.2 % Normal 0.0-8.0 [facility] Comment on above: Order Comment: Order Added by Discern Expert. Performed By: #### 2 458769, 6719673, 9020257, 02561675, 33457809, 52537693, 5495541, 5121277 ####[address] [address] Eosinophils/Leukocy camden Auto (Bld) [Pure # fraction] 0.2 E9/L Normal 0.0-0.5 [facility] Comment on above: Order Comment: Order Added by Discern Expert. Performed By: #### 2 251902, 8315904, 3282245, 31877808, 41905597, 17495463, 4418959, 5810978 ####[facility] [address] [place] [address] Lymphocytes/100 WBC (Bld) 20.6 % Normal 14.0-50.0 [facility] Comment on above: Order Comment: Order Added by Discern Expert. Performed By: #### 2 191257, 0226006, 1023475, 10050542, 04160529, 54159697, 6666743, 4313536 ####[facility] [address] [place] [address] Lymphocytes/Leukocy camden Auto (Bld) [Pure # fraction] 1.8 E9/L Normal 1.0-4.0 [facility] Comment on above: Order Comment: Order Added by Discern Expert. Performed By: #### 2 204951, 7498058, 2073543, 93767304, 43651913, 23019274, 9393209, 7187900 ####[facility] [address] [place] [address] Monocytes/100 WBC (Bld) 7.6 % Normal 4.0-14.0 [facility] Comment on above: Order Comment: Order Added by Discern Expert. Performed By: #### 2 312463, 3205381, 2273345, 53033987, 74294207, 22241353, 5650414, 6486623 ####[facility] [address] [place] [address] Monocytes/Leukocyte s Auto (Bld) [Pure # fraction] 0.7 E9/L Normal 0.2-1.0 [facility] Comment on above: Order Comment: Order Added by Discern Expert. Performed By: #### 2 044754, 9089040, 8088825, 69866885, 20534563, 51242636, 0985585, 3154475 ####[address] [place] [address] Neutrophils/100 WBC (Bld) 69.0 % Normal 36.0-75.0 [facility] Comment on above: Order Comment: Order Added by Discern Expert. Performed By: #### 2 315250, 4924523, 0779754, 53705834, 05102419, 14591112, 1179959, 8307135 ####[address] [place] [address] Neutrophils/Leukocy camden Auto (Bld) [Pure # fraction] 6.1 E9/L Normal 2.0-7.5 [facility] Comment on above: Order Comment: Order Added by Discern Expert. Performed By: #### 2 857583, 4863472, 1417653, 07375975, 11427176, 16434555, 0191081, 2098671 ####[address] [place] [address] BMPon 03-13-2023 Creatinine [Mass/Vol] 0.9 mg/dL Normal 0.5-1.3 [facility] Comment on above: Performed By: #### 2 193410, 6724438, 0503984, 32447528, 17547291, 87854319, 0566040, 6201508 ####[facility] [address] [place] [address] Urea nitrogen [Mass/Vol] 15 mg/dL Normal 5-21 [facility] Comment on above: Performed By: #### 2 695145, 9985700, 9553719, 64707896, 15213545, 35445128, 1061701, 8773505 ####[facility] [address] [place] [address] Urea nitrogen/Creatinine [Mass ratio] 17 No Units Normal 10-20 [facility] Comment on above: Performed By: #### 2 041741, 9491149, 9693937, 11225012, 03484837, 70254229, 0877339, 0647740 ####[facility] [address] [place] [address] Anion gap [Moles/Vol] 12 mmol/L Normal 6-16 [facility] Comment on above: Performed By: #### 2 395257, 8390552, 6371614, 51256431, 91944845, 46699969, 8318154, 0172521 ####[facility] [address] [place] [address] Calcium [Mass/Vol] 8.6 mg/dL Low 8.9-11.1 [facility] Comment on above: Performed By: #### 2 611142, 4914809, 4358125, 49172123, 22726355, 19383825, 0129832, 8643461 ####[facility] [address] [place] [address] Chloride [Moles/Vol] 103 mmol/L Normal 101-111 [facility] Comment on above: Performed By: #### 2 925977, 1709871, 8013882, 62969367, 93784342, 70900906, 1347574, 1871014 ####[facility] [address] [place] [address] CO2 [Moles/Vol] 26 mmol/L Normal 21-31 [facility] Comment on above: Performed By: #### 2 228182, 8215568, 8952725, 67444681, 34596437, 68663886, 0688438, 4433443 ####[facility] [address] [place] [address] Glucose [Mass/Vol] 124 mg/dL Normal 55-199 [facility] Comment on above: Result Comment: If t his glucose result represents a fasting glucose, interpretation should refer to the following reference range: 55-99 mg/dL Performed By: #### 2 914630, 4206296, 1578783, 49892872, 85050287, 07739778, 4155041, 2075035 ####[facility] [address] [place] [address] Potassium [Moles/Vol] 4.0 mmol/L Normal 3.5-5.3 [facility] Comment on above: Performed By: #### 2 114695, 2656553, 4687405, 95247948, 67462477, 06964705, 4936503, 3146107 ####[facility] [address] [place] [address] Sodium [Moles/Vol] 137 mmol/L Normal 135-145 [facility] Comment on above: Performed By: #### 2 198692, 2026351, 8662037, 70293455, 53547280, 89367150, 0456555, 1263127 ####[facility] [address] [place] [address] BNPon 03-13-2023 Int Ctr BNP Pass Normal [facility] Comment on above: Performed By: #### 2 735506, 8097786, 0999207, 25801638, 14016302, 95644506, 8528071, 4108628 ####[facility] [address] [place] [address] Natriuretic peptide B (Bld) [Mass/Vol] 16 pg/mL Normal 5-80 [facility] Comment on above: Performed By: #### 2 804261, 7986193, 4479689, 06665397, 96673486, 22967952, 0076496, 5261203 ####[facility] [address] [place] [address] CBC w/ Auto Diffon Erythrocyte distribution width (RBC) [Ratio] 14.6 % High 10.9-14.2 [facility] Comment on above: Performed By: #### 2 545279, 8933874, 8642503, 07030362, 69374560, 94965748, 7112395, 7996081 ####[address] [place] [address] Hematocrit (Bld) [Volume fraction] 38.2 % Normal 37.7-49.0 [facility] Comment on above: Performed By: #### 2 513936, 6460604, 9398715, 47528519, 13493023, 06802371, 0273535, 3092684 ####[facility] [address] [place] [address] Hemoglobin (Bld) [Mass/Vol] 13.0 g/dL Low 13.5-17.5 [facility] Comment on above: Performed By: #### 2 294836, 5206796, 8825717, 38499916, 88410218, 24275121, 3340793, 7474368 ####[facility] [address] [place] [address] MCH (RBC) [Entitic mass] 31.5 pg Normal 27.0-34.0 [facility] Comment on above: Performed By: #### 2 778137, 3685009, 5185172, 55665526, 53374439, 48505218, 1046344, 8327151 ####[facility] [address] [place] [address] MCHC (RBC) [Mass/Vol] 34.0 g/dL Normal 31.4-36.0 [facility] Comment on above: Performed By: #### 2 485458, 5122134, 3619310, 55329966, 16382613, 75394831, 0458874, 8419418 ####[address] [place] [address] MCV (RBC) [Entitic vol] 92.7 fL Normal 80.0-100.0 [facility] Comment on above: Performed By: #### 2 039491, 8847962, 4476100, 39870005, 81829000, 40535243, 8858361, 9909181 ####[address] [address] Platelet mean volume (Bld) [Entitic vol] 7.9 fL Normal 6.4-10.8 [facility] Comment on above: Performed By: #### 2 316410, 8414196, 9170506, 65269766, 41977969, 68727007, 6095070, 8208402 ####[address] [address] Platelets (Bld) [#/Vol] 137.0 E9/L Low 150.0-500.0 [facility] Comment on above: Performed By: #### 2 180044, 4569660, 4608805, 71807407, 99840197, 98011873, 3440104, 8524538 ####[address] [address] RBC (Bld) [#/Vol] 4.1 E12/L Low 4.3-5.9 [facility] Comment on above: Performed By: #### 2 295192, 4301511, 0103339, 71256592, 18178381, 30636229, 7366423, 3270808 ####[address] [place] [address] WBC corrected for nucl RBC Auto (Bld) [#/Vol] 8.9 E9/L Normal 4.0-11.0 [facility] Comment on above: Performed By: #### 2 029543, 3914499, 6608280, 72305517, 53082213, 85637842, 7359929, 8142817 ####[facility] [id number] CHEMISTRYOrdered By: SYSTEM SYSTEM on 03-13-2023 Anion gap [Moles/Vol] 12 mmol/L Normal 6 - 16 mEq/L [facility] Calcium [Mass/Vol] 8.6 mg/dL Low 8.9 - 11.1 mg/dL [facility] Chloride [Moles/Vol] 103 mmol/L Normal 101 - 111 mmol/L [facility] CO2 [Moles/Vol] 26 mmol/L Normal 21 - 31 mmol/L [facility] Creatinine [Mass/Vol] 0.9 mg/dL Normal 0.5 - 1.3 mg/dL [facility] CRP [Mass/Vol] 1.3 mg/dL Normal <=1.9mg/dL [facility] Remisol GFR/1.73 sq M.predicted among non-blacks MDRD (S/P/Bld) [Vol rate/Area] 89 mL/min/1.73 m2 Normal >=59mL/min/1.73 m2 [facility] Chem S Glucose [Mass/Vol] 124 mg/dL Normal 55 - 199 mg/dL [facility] Lactate [Mass/Vol] 3.0 mmol/L High 0.5 - 2.2 mmol/L [facility] Potassium [Moles/Vol] 4.0 mmol/L Normal 3.5 - 5.3 mmol/L [facility] Sodium [Moles/Vol] 137 mmol/L Normal 135 - 145 mmol/L [facility] Troponin I.cardiac [Mass/Vol] 10.20 pg/mL Low 15.90 - 38.40 pg/mL [facility] Urea nitrogen [Mass/Vol] 15 mg/dL Normal 5 - 21 mg/dL [facility] Urea nitrogen/Creatinine [Mass ratio] 17 mg/mg Normal 10 - 20 [facility] CHEMISTRYOrdered By: Yandel Caballero on 03-13-2023 Natriuretic peptide B (Bld) [Mass/Vol] 16 pg/mL Normal 5 - 80 pg/mL [facility] HemeManSS CRPon 03-13-2023 CRP [Mass/Vol] 1.3 mg/dL Normal <=1.9 [facility] Comment on above: Performed By: #### 2 078041, 5360384, 5636004, 80076306, 73248611, 60681314, 1629738, 2809206 ####[facility] [address] [place] [address] Consenton 03-13-2023 Consent [id number] CD:127 Normal [facility] Consent for Treatmenton Consent for Treatment [id number] D:127 Normal [facility] Discharge Instructionson Discharge Instructions [id number] CD:127 Normal [facility] ED Clinical Summaryon 2022 ED Clinical Summary Normal [facility] ED Note-Physicianon 03-13-20 23 ED Note-Physician Normal [facility] Comment on above: Result Comment: Elec tronically Signed By: Jordan Dean DO\.br\Date and Time Signed: 03/13/23 04:21 EDT ED Patient Education Noteon 03-13-2023 ED Patient Education Note Normal [facility] ED Patient Summaryon 023 ED Patient Summary Normal [facility] HEMATOLOGYOrdered By: SYSTEM SYSTEM on 03-13-2023 Basophils/100 WBC (Bld) 0.6 % Normal 0.0 - 2.0 % [facility] Basophils/Leukocyte s Auto (Bld) [Pure # fraction] 0.1 E9/L Normal 0.0 - 0.2 E9/L [facility] Eosinophils/100 WBC (Bld) 2.2 % Normal 0.0 - 8.0 % [facility] Eosinophils/Leukocy cam[place] Auto (Bld) [Pure # fraction] 0.2 E9/L Normal 0.0 - 0.5 E9/L [facility] Lymphocytes/100 WBC (Bld) 20.6 % Normal 14.0 - 50.0 % [facility] Lymphocytes/Leukocy cam[place] Auto (Bld) [Pure # fraction] 1.8 E9/L Normal 1.0 - 4.0 E9/L [facility] Monocytes/100 WBC (Bld) 7.6 % Normal 4.0 - 14.0 % [facility] Monocytes/Leukocyte s Auto (Bld) [Pure # fraction] 0.7 E9/L Normal 0.2 - 1.0 E9/L [facility] Neutrophils/100 WBC (Bld) 69.0 % Normal 36.0 - 75.0 % [facility] Neutrophils/Leukocy cam[place] Auto (Bld) [Pure # fraction] 6.1 E9/L Normal 2.0 - 7.5 E9/L [facility]SS HEMATOLOGYOrdered By: Yokasta Caballero on 03-13-2023 Erythrocyte distribution width (RBC) [Ratio] 14.6 % High 10.9 - 14.2 % [facility] Hematocrit (Bld) [Volume fraction] 38.2 % Normal 37.7 - 49.0 % [facility] Hemoglobin (Bld) [Mass/Vol] 13.0 g/dL Low 13.5 - 17.5 gm/dL [facility] MCH (RBC) [Entitic mass] 31.5 pg Normal 27.0 - 34.0 pg [facility] MCHC (RBC) [Mass/Vol] 34.0 g/dL Normal 31.4 - 36.0 gm/dL [facility] MCV (RBC) [Entitic vol] 92.7 fL Normal 80.0 - 100.0 fL [facility] Platelet mean volume (Bld) [Entitic vol] 7.9 fL Normal 6.4 - 10.8 fL [facility] Platelets (Bld) [#/Vol] 137.0 E9/L Low 150.0 - 500.0 E9/L [facility] RBC (Bld) [#/Vol] 4.1 E12/L Low 4.3 - 5.9 E12/L [facility] WBC corrected for nucl RBC Auto (Bld) [#/Vol] 8.9 E9/L Normal 4.0 - 11.0 E9/L [facility] Lab Miscellaneous-LCon 03-13 Lab Miscellaneous COMMENT Invalid Interpretation Code [facility] Comment on above: Result Comment: Test Ordered: [id number] Protein C- FunctionalProtein C-Functional 138 % BNReference Range: 73-180Performed at: [facility] [place], [place] [id number] PhD Quinn Pinedo Performed By: #### 1 [id number] ####[facility] [address] [place] [address] Result Comment: Test Ordered: [id number] Protein S-AntigenProtein S, Total 97 % BNReference Range: 60-150This test was developed and its performance characteristicsdetermined by [facility]. It has not been cleared or approvedby the Food and Drug Administration.Protein S, Free 118 % BNReference Range: 61-136Performed at: [facility]maschine publishingBr[facility] [place], [place] [id number] PhD Quinn Pinedo Result Comment: Test Ordered: [id number] Protein S-FunctionalProtein S-Functional 112 % BNReference Range: 63-140Protein S activity may be falsely increased (masking an abnormal, lowresult) in patients receiving direct Xa inhibitor (e.g., rivaroxaban,apixaban, edoxaban) or a direct thrombin inhibitor (e.g., dabigatran)anticoagulant treatment due to assay interference by these drugs.Performed at: [facility] [place], [place] [id number] PhD Quinn Pinedo Lactic Acidon 03-13-2023 Lactate [Mass/Vol] 3.0 mmol/L High 0.5-2.2 [facility] Comment on above: Performed By: #### 2 671648, 7527576, 6131197, 79314836, 63572954, 78819560, 1684038, 6189492 ####[facility] [address] [place] [address] Troponin 0 Hr.on 03-13-2023 Troponin I.cardiac [Mass/Vol] 10.20 pg/mL Low 15.90-38.40 [facility] Comment on above: Result Comment: The 95% CI (Confidence Interval) PPV (Positive Predictive Value) for myocardial infarction in females is 38 pg/mL, in males 51 pg/mL. The results should be used in conjunction with clinical conditions of myocardial infarction.(Access High Sensitivity Troponin I Instructions For Use, Nikky Kristopher, March 2018) Performed By: #### 2 279657, 3368432, 4363274, 39636384, 73522597, 57842878, 3207931, 7963749 ####[facility] [address] [place] [address] eGFRon 03-13-2023 GFR/1.73 sq M.predicted among non-blacks MDRD (S/P/Bld) [Vol rate/Area] 89 mL/min/1.73 m2 Normal >=59 [facility] Comment on above: Order Comment: Order added by Discern Expert. Result Comment: Architectural Practice Manager cristo kidney disease could be indicated at eGFR's of less than 60 mL/min/1.73m2. Kidney failure is indicated at less than 15 mL/min/1.73m2. Performed By: #### 2 112426, 3622155, 7051155, 74843178, 05835360, 63867690, 6708254, 4670885 ####[facility] [address] [place] [address] LISA ABS Ig G,M,Aon 3 Cardiolipin IgA IA Qn (S) <9 Invalid Interpretation Code 0-11 [facility] Comment on above: Result Comment: Nega tive: <12Indeterminate: 12 - 20Low-Med Positive: >20 - 80High Positive: >80Performed at: [facility] [address] [place], [place] [id number] PhD Quinn Pinedo Performed By: #### 1 0349431 ####[facility] [address] [place] [address] Cardiolipin IgG IA Qn (S) <9 Invalid Interpretation Code 0-14 [facility] Comment on above: Result Comment: Nega tive: <15Indeterminate: 15 - 20Low-Med Positive: >20 - 80High Positive: >80 Performed By: #### 1 6973647 ####[address] [place] [address] Cardiolipin IgM IA Qn (S) <9 Invalid Interpretation Code 0-12 [facility] Comment on above: Result Comment: Nega tive: <13Indeterminate: 13 - 20Low-Med Positive: >20 - 80High Positive: >80 Performed By: #### 1 5221622 ####[address] [address] Auto Diffon 03-11-2023 Basophils/100 WBC (Bld) 1.0 % Normal 0.0-2.0 [facility] Comment on above: Order Comment: Order Added by Discern Expert. Performed By: #### 1 8615197, 72423928, 012752358, 4592075, 93132383, 8277917, 0960148, 63004129, 6032378 ####[address] [address] Basophils/Leukocyte s Auto (Bld) [Pure # fraction] 0.1 E9/L Normal 0.0-0.2 [facility] Comment on above: Order Comment: Order Added by Discern Expert. Performed By: #### 1 2823313, 38130910, 403539517, 6871018, 11674731, 3305139, 0997300, 80575279, 9349788 ####[address] [address] Eosinophils/100 WBC (Bld) 2.1 % Normal 0.0-8.0 [facility] Comment on above: Order Comment: Order Added by Discern Expert. Performed By: #### 1 7451611, 86446489, 870891292, 8084533, 45226452, 3970374, 4282072, 86884164, 0313958 ####[address] [address] Eosinophils/Leukocy [place] Auto (Bld) [Pure # fraction] 0.2 E9/L Normal 0.0-0.5 [facility] Comment on above: Order Comment: Order Added by Discern Expert. Performed By: #### 1 4453720, 27685539, 233217713, 2908551, 67329274, 9115943, 8688193, 45815821, 2322912 ####[facility] [address] [place] [address] Lymphocytes/100 WBC (Bld) 23.1 % Normal 14.0-50.0 [facility] Comment on above: Order Comment: Order Added by Discern Expert. Performed By: #### 1 9909645, 89999887, 780324799, 3565124, 35633451, 2060169, 4223192, 84290863, 1252690 ####[address] [place] [address] Lymphocytes/Leukocy [place] Auto (Bld) [Pure # fraction] 1.7 E9/L Normal 1.0-4.0 [facility] Comment on above: Order Comment: Order Added by Discern Expert. Performed By: #### 1 4439655, 99112225, 051932031, 2223306, 08178070, 4554473, 2835345, 61664693, 4050528 ####[address] [place] [address] Monocytes/100 WBC (Bld) 7.3 % Normal 4.0-14.0 [facility] Comment on above: Order Comment: Order Added by Discern Expert. Performed By: #### 1 6906121, 20685743, 278543557, 6359822, 41446999, 0901863, 8926432, 36944833, 5089288 ####[address] [place] [address] Monocytes/Leukocyte s Auto (Bld) [Pure # fraction] 0.6 E9/L Normal 0.2-1.0 [facility] Comment on above: Order Comment: Order Added by Discern Expert. Performed By: #### 1 [id number], 24390557, 145092354, 1995598, 71961529, 4503691, 2970112, 54418498, 3791361 ####[facility] [address] [place] [address] Neutrophils/100 WBC (Bld) 66.5 % Normal 36.0-75.0 [facility] Comment on above: Order Comment: Order Added by Discern Expert. Performed By: #### 1 [id number], 58214821, 448396836, 6958292, 26659442, 0702765, 9561397, 35087407, 2355933 ####[address] [place] [address] Neutrophils/Leukocy camden Auto (Bld) [Pure # fraction] 5.0 E9/L Normal 2.0-7.5 [facility] Comment on above: Order Comment: Order Added by Discern Expert. Performed By: #### 1 7513444, 39937214, 864270124, 0773088, 59499138, 6362670, 1526531, 17759693, 3523282 ####[address] [place] [address] CBC w/ Auto Diffon 3 Erythrocyte distribution width (RBC) [Ratio] 14.6 % High 10.9-14.2 [facility] Comment on above: Performed By: #### 1 4786978, 43061317, 715715580, 9736063, 03285994, 7376304, 7865132, 35688642, 1579603 ####[address] [place] [address] Hematocrit (Bld) [Volume fraction] 39.8 % Normal 37.7-49.0 [facility] Comment on above: Performed By: #### 1 9097057, 09993226, 192363344, 2303467, 62442750, 6590545, 1756703, 63494008, 0483158 ####[address] [place] [address] Hemoglobin (Bld) [Mass/Vol] 13.3 g/dL Low 13.5-17.5 [facility] Comment on above: Performed By: #### 1 9339382, 41023559, 153987096, 2833596, 56194218, 8885185, 7087292, 04908592, 1852094 ####[facility] [address] [place] [address] MCH (RBC) [Entitic mass] 31.2 pg Normal 27.0-34.0 [facility] Comment on above: Performed By: #### 1 8218080, 63066463, 824575234, 1412921, 88414028, 1132525, 6083559, 17242407, 7828767 ####[address] [place] [address] MCHC (RBC) [Mass/Vol] 33.4 g/dL Normal 31.4-36.0 [facility] Comment on above: Performed By: #### 1 1208722, 30412262, 132139070, 6031459, 57045716, 2689564, 8397986, 29018340, 4043491 ####[address] [place] [address] MCV (RBC) [Entitic vol] 93.2 fL Normal 80.0-100.0 [facility] Comment on above: Performed By: #### 1 3213069, 64587507, 830181340, 5142310, 55339963, 3808072, 8305693, 31275638, 8864699 ####[address] [place] [address] Platelet mean volume (Bld) [Entitic vol] 8.1 fL Normal 6.4-10.8 [facility] Comment on above: Performed By: #### 1 4151691, 75937111, 509672065, 5543482, 02322594, 4106863, 8165543, 14330523, 9620920 ####[address] [place] [address] Platelets (Bld) [#/Vol] 174.0 E9/L Normal 150.0-500.0 [facility] Comment on above: Performed By: #### 1 7130809, 10034766, 791512469, 4586026, 02609435, 3375590, 7689798, 24189370, 7416903 ####[facility] [address] [place] [address] RBC (Bld) [#/Vol] 4.3 E12/L Normal 4.3-5.9 [facility] Comment on above: Performed By: #### 1 8170423, 25709352, 838106538, 5753351, 03003559, 5974425, 7093164, 54613724, 4226359 ####[facility] [address] [place] [address] WBC corrected for nucl RBC Auto (Bld) [#/Vol] 7.5 E9/L Normal 4.0-11.0 [facility] Comment on above: Performed By: #### 1 7991674, 00304919, 539260255, 8473652, 56648102, 8076881, 2887682, 59160485, 1908527 ####[facility] [address] [place] [address] COAGULATIONOrdered By: Brandie Sams on 03-11-2023 Fibrin D-dimer FEU (PPP) [Mass/Vol] 1012 ng/mL FEU Invalid Interpretation Code 215 - 500 ng/mL FEU [facility] Auto Coag Comment on above: Result Comment: Resu lts Called To Onc/Jerica Sánchez By And Read Back For Confirmation On 03/11/2023 12:57:21 EDT Results Verified By Repeat Analysis Consent for Treatmenton 02-11 Consent for Treatment [id number]#1.00C D:127 Normal [facility] D-Dimeron 03-11-2023 Fibrin D-dimer FEU (PPP) [Mass/Vol] 1012 CD:[id number] Abnormal 215-500 [facility] Comment on above: Result Comment: Resu lts Called To Onc/Jerica Sánchez By And Read Back For Confirmation On 03/11/2023 12:57:21 EDTResults Verified By Repeat AnalysisThis assay is intended for use as an aid in the diagnosis of DVT or PE. These conditions cannot be excluded with certainty solely on the basis of a D-dimer concentration being within the reference rangeThis D-Dimer assay may be used in conjunction with a non-high clinical pretest probability assessment to exclude deep-vein thrombosis(DVT). For exclusion of venous thrombosis or pulmonary embolism the analyte D-Dimer should not be used as an aid in patients with:Therapeutic dose anticoagulant therapy for >24 hoursFibrinolytic therapy within previous 7 daysTrauma or surgery within previous 4 weeksDisseminated malignaciesAortic aneurysmSepsis, severe infections, pneumonia, severe skin infectionsLiver cirrhosisPregnancy Performed By: #### 1 3576755, 60156135, 403188069, 1152305, 79211496, 8583109, 8974051, 15507641, 7777166 ####[facility] [address] [place] [address] HEMATOLOGYOrdered By: SYSTEM SYSTEM on 03-11-2023 Basophils/100 WBC (Bld) 1.0 % Normal 0.0 - 2.0 % [facility] HemeAutoSS Basophils/Leukocyte s Auto (Bld) [Pure # fraction] 0.1 E9/L Normal 0.0 - 0.2 E9/L [facility] HemeAutoSS Eosinophils/100 WBC (Bld) 2.1 % Normal 0.0 - 8.0 % [facility] HemeAutoSS Eosinophils/Leukocy cam[place] Auto (Bld) [Pure # fraction] 0.2 E9/L Normal 0.0 - 0.5 E9/L [facility] HemeAutoSS Lymphocytes/100 WBC (Bld) 23.1 % Normal 14.0 - 50.0 % [facility] HemeAutoSS Lymphocytes/Leukocy cam[place] Auto (Bld) [Pure # fraction] 1.7 E9/L Normal 1.0 - 4.0 E9/L [facility] HemeAutoSS Monocytes/100 WBC (Bld) 7.3 % Normal 4.0 - 14.0 % [facility] HemeAutoSS Monocytes/Leukocyte s Auto (Bld) [Pure # fraction] 0.6 E9/L Normal 0.2 - 1.0 E9/L [facility] HemeAutoSS Neutrophils/100 WBC (Bld) 66.5 % Normal 36.0 - 75.0 % [facility] HemeAutoSS Neutrophils/Leukocy camden Auto (Bld) [Pure # fraction] 5.0 E9/L Normal 2.0 - 7.5 E9/L [facility] HemeAutoSS HEMATOLOGYOrdered By: Yessica Murdock on 03-11-2023 Erythrocyte distribution width (RBC) [Ratio] 14.6 % High 10.9 - 14.2 % [facility] HemeAutoSS Hematocrit (Bld) [Volume fraction] 39.8 % Normal 37.7 - 49.0 % [facility] HemeAutoSS Hemoglobin (Bld) [Mass/Vol] 13.3 g/dL Low 13.5 - 17.5 gm/dL [facility] HemeAutoSS MCH (RBC) [Entitic mass] 31.2 pg Normal 27.0 - 34.0 pg [facility] HemeAutoSS MCHC (RBC) [Mass/Vol] 33.4 g/dL Normal 31.4 - 36.0 gm/dL [facility] HemeAutoSS MCV (RBC) [Entitic vol] 93.2 fL Normal 80.0 - 100.0 fL [facility] HemeAutoSS Platelet mean volume (Bld) [Entitic vol] 8.1 fL Normal 6.4 - 10.8 fL [facility] HemeAutoSS Platelets (Bld) [#/Vol] 174.0 E9/L Normal 150.0 - 500.0 E9/L [facility] HemeAutoSS RBC (Bld) [#/Vol] 4.3 E12/L Normal 4.3 - 5.9 E12/L [facility] HemeAutoSS WBC corrected for nucl RBC Auto (Bld) [#/Vol] 7.5 E9/L Normal 4.0 - 11.0 E9/L [facility] HemeAutoSS Lab Miscellaneous-LCon 03-11 Test Code 034043 Invalid Interpretation Code [facility] Comment on above: Performed By: #### 1 [id number] ####[facility] [address] [place] [address] Test Code 523567 Invalid Interpretation Code [facility] Comment on above: Performed By: #### 1 [id number] ####[facility] [address] Test Code 431215 Invalid Interpretation Code [facility] Comment on above: Performed By: #### 1 [id number] ####[facility] [address] [place] [address] Test Name Protein C Invalid Interpretation Code [facility] Comment on above: Performed By: #### 1 [id number] ####[facility] [address] [place] [address] Test Name Protein S Funct Invalid Interpretation Code [facility] Comment on above: Performed By: #### 1 [id number] ####[facility] [address] [place] [address] Test Name Protein S Antig Invalid Interpretation Code [facility] Comment on above: Performed By: #### 1 [id number] ####[facility] [address] [place] [address] Oncology Progress Noteon Oncology Progress Note Normal [facility] Reference Laboratory Testing Ordered By: Sylwia Lubin on 03-11-2023 Test Code 670702 Invalid Interpretation Code [facility] SendOutsSS Test Code 170394 Invalid Interpretation Code [facility] SendOutsSS Test Code 938407 Invalid Interpretation Code [facility] SendOutsSS Test Name Protein C Invalid Interpretation Code [facility] SendOutsSS Test Name Protein S Funct Invalid Interpretation Code [facility] SendOutsSS Test Name Protein S Antig Invalid Interpretation Code [facility] SendOutsSS Population Healthon 03-05-20 23 Population Health Normal [facility] Ambulatory Visit Summaryon 0 03-01-2023 Ambulatory Visit Summary Invalid Interpretation Code [address] [place] [address]- \.br\ Saturday 11:00 AM EST \.br\ With:\.br\ Where: [facility] Family Medicine Office/Clini c Noteon 03-01-2023 Family Medicine Office/Clinic Note Normal [facility] Comment on above: Result Comment: Elec tronically Signed By: LAZARO ESPINAL, Kevin Milligan\.br\Date and Time Signed: 03/01/23 13:42 EDT Patient Educationon 03-01-20 Patient Education Normal [facility] C Blood Charcoalon 3 Blood Culture Charcoal Normal [facility] Comment on above: Performed By: #### 1 [id number] ####[facility] [address] [place] [address] Blood Culture Charcoal Normal [facility] Comment on above: Performed By: #### 1 [id number] ####[facility] [address] [place] [address] Prescriptions/Work Noteson 0 02-21-2023 Prescriptions/Work Notes [id number]#1.00 CD:127 Normal [facility] Discharge Instructionson Discharge Instructions [id number]#1.00 CD:127 Normal [facility] Population Healthon 02-21-20 23 Population Health Normal [facility] BMPon 02-19-2023 Anion gap [Moles/Vol] 10 mmol/L Normal 6-16 [facility] Comment on above: Performed By: #### 2 565408, 07147147, 0817408 ####[facility] [address] [place] [address] Calcium [Mass/Vol] 9.1 mg/dL Normal 8.9-11.1 [facility] Comment on above: Performed By: #### 2 257228, 97588864, 1787175 ####[facility] [address] [place] [address] Chloride [Moles/Vol] 99 mmol/L Low 101-111 [facility] Comment on above: Performed By: #### 2 663816, 84322060, 6272994 ####[facility] [address] [place] [address] CO2 [Moles/Vol] 32 mmol/L High 21- [facility] Comment on above: Performed By: #### 2 601780, 03279095, 3207337 ####[facility] [address] [place] [address] Creatinine [Mass/Vol] 0.9 mg/dL Normal 0.5-1.3 [facility] Comment on above: Performed By: #### 2 695064, 01074096, 3660433 ####[facility] [address] [place] [address] Glucose [Mass/Vol] 148 mg/dL Normal 55-199 [facility] Comment on above: Result Comment: If t his glucose result represents a fasting glucose, interpretation should refer to the following reference range: 55-99 mg/dL Performed By: #### 2 116959, 63361319, 6848265 ####[facility] [address] [place] [address] Potassium [Moles/Vol] 4.0 mmol/L Normal 3.5-5.3 [facility] Comment on above: Performed By: #### 2 871079, 92654268, 5715002 ####[facility] [address] [place] [address] Sodium [Moles/Vol] 137 mmol/L Normal 135-145 [facility] Comment on above: Performed By: #### 2 653141, 25978099, 4835230 ####[facility] [address] [place] [address] Urea nitrogen [Mass/Vol] 10 mg/dL Normal 5-21 [facility] Comment on above: Performed By: #### 2 749838, 64171220, 7626887 ####[facility] [address] [place] [address] Urea nitrogen/Creatinine [Mass ratio] 11 No Units Normal 10-20 [facility] Comment on above: Performed By: #### 2 141813, 96756746, 8957598 ####[facility] [address] [place] [address] CHEMISTRYOrdered By: Lab ROP User on 02-19-2023 Glucose [Mass/Vol] 159 mg/dL High 55 - 99 mg/dL [facility] C POC Subsection Comment on above: Result Comment: Georgette palacios RN/ POC Device SN [id number] Invalid Interpretation Code [facility] POC Subsection POC User ID [id number] Invalid Interpretation Code [facility] POC Subsection POC Username ISABELL SAWYER Invalid Interpretation Code [facility] POC Subsection Glucose [Mass/Vol] 176 mg/dL High 55 - 99 mg/dL [facility] C POC Subsection Comment on above: Result Comment: Noti suzanne RN/ POC Device SN [id number] Invalid Interpretation Code [facility] POC Subsection POC User ID [id number] Invalid Interpretation Code [facility] POC Subsection POC Username DEBRA GOMEZ Invalid Interpretation Code [facility] POC Subsection Glucose [Mass/Vol] 152 mg/dL High 55 - 99 mg/dL [facility] C POC Subsection Comment on above: Result Comment: Noti suzanne RN/ POC Device SN [id number] Invalid Interpretation Code [facility] POC Subsection POC User ID [id number] Invalid Interpretation Code [facility] POC Subsection POC Username DEBRA GOMEZ Invalid Interpretation Code [facility] POC Subsection CHEMISTRYOrdered By: SYSTEM SYSTEM on 02-19-2023 Anion gap [Moles/Vol] 10 mmol/L Normal 6 - 16 mEq/L [facility] Remisol Calcium [Mass/Vol] 9.1 mg/dL Normal 8.9 - 11.1 mg/dL [facility] Remisol Chloride [Moles/Vol] 99 mmol/L Low 101 - 111 mmol/L [facility] Remisol CO2 [Moles/Vol] 32 mmol/L High 21 - 31 mmol/L [facility] Remisol Creatinine [Mass/Vol] 0.9 mg/dL Normal 0.5 - 1.3 mg/dL [facility] Remisol GFR/1.73 sq M.predicted among non-blacks MDRD (S/P/Bld) [Vol rate/Area] 89 mL/min/1.73 m2 Normal >=59mL/min/1.73 m2 [facility] Chem S Glucose [Mass/Vol] 148 mg/dL Normal 55 - 199 mg/dL [facility] Remisol Magnesium [Mass/Vol] 1.7 mg/dL Normal 1.3 - 2.4 mg/dL [facility] Potassium [Moles/Vol] 4.0 mmol/L Normal 3.5 - 5.3 mmol/L [facility] Remisol Sodium [Moles/Vol] 137 mmol/L Normal 135 - 145 mmol/L [facility] Remisol Urea nitrogen [Mass/Vol] 10 mg/dL Normal 5 - 21 mg/dL [facility] Remisol Urea nitrogen/Creatinine [Mass ratio] 11 mg/mg Normal 10 - 20 [facility] Remisol COAGULATIONOrdered By: Joana Heart on 02-19-2023 aPTT Coag (PPP) [Time] 70.2 s High 25.1 - 36.5 second(s) [facility] Auto Coag INR Coag (PPP) [Relative time] 1.0 {INR} Invalid Interpretation Code [facility] Auto Coag PT Coag (PPP) [Time] 11.3 s Normal 9.4 - 12.5 second(s) [facility] Auto Coag aPTT Coag (PPP) [Time] 74.4 s High 25.1 - 36.5 second(s) [facility] Auto Coag COAGULATIONOrdered By: Warren Collins on 02-19-2023 aPTT Coag (PPP) [Time] 77.6 s High 25.1 - 36.5 second(s) [facility] Auto Coag INR Coag (PPP) [Relative time] 1.1 {INR} Invalid Interpretation Code [facility] Auto Coag PT Coag (PPP) [Time] 12.5 s Normal 9.4 - 12.5 second(s) [facility] Auto Coag Capillary Glucose POCon 02-09 Glucose [Mass/Vol] 159 mg/dL High 55-99 [facility] Comment on above: Result Comment: Georgette LOPEZ Performed By: #### 2 [id number] ####[facility] [address] [place] [address] Glucose [Mass/Vol] 176 mg/dL High 55-99 [facility] Comment on above: Result Comment: Georgette LOPEZ Performed By: #### 2 [id number] ####[facility] [address] [place] [address] Glucose [Mass/Vol] 152 mg/dL High 55-99 [facility] Comment on above: Result Comment: Georgette LOPEZ Performed By: #### 2 [id number] ####[facility] [address] [place] [address] Discharge Note-Nursingon Discharge Note-Nursing Normal [address] [place] [address]- \.br\ New Follow Up Appointments after Discharge\.br\ Follow Up with [facility] When: 03/01/2023 01:00 PM EDT\.br\ Comments:\.br\ Your follow up appointment is with Dr. Lobo. Thank you.\.br\ Where:\.br\ [address]\.br\ [place] [address]-\.br\ Business (1)\.br\ Follow Up with [facility] When: \.br\ Comments:\.br\ [facility] will contact you to set up a home visit. Thank you.\.br\ Follow Up with Ralph Jennings When: \.br\ Comments:\.br\ Chronic Venous Insuf\.br\ Please call Kike at Dr. Jennings's office in [place] to make a follow up appointment. The phone number is [phone]. Thank you.\.br\ Where:\.br\ [address]br\ [place] [address]-\.br\ Business (1)\.br\ Follow Up with Matty Murillo When: \.br\ Comments:\.br\ needs PFTs and sleep study\.br\ The central scheduling department at [facility] will need to schedule the PFT's. Please contact Dr. Murillo's offic eto set up a time for your sleep study. Thank you.\.br\ Where:\.br\ [address]br\ [facility])\.br\ [place] [address]-\.br\ Business (1)\.br\ Follow Up with Mitch Amaro When: \.br\ Comments:\.br\ 2nd DVT\.br\ Dr. Amaro office will contact you to set up an appointment. If you do not hear from them in 3 days, then call [phone] and asked for Oncology/ Hematology department. Thank you.\.br\ Where:\.br\ [facility]\.br\ [address].br\ [place] [address]-\.br\ Medications\.br\ What How Much When Why Instructions Next Dose\.br\ New apixaban (Eliquis 5 mg oral tablet) 2 tabs (10 mg) BID x 7 days then 1 tab bid By Mouth 2 times a day initial fill only Pickup at [facility]/pharmacy #[id number] 02/19 @ 9 PM \.br\ New methocarbamol (Robaxin 500 mg Tab) 2 Tablets By Mouth 4 times a day Duration: 14 Days Pickup at [facility]/pharmacy #[id number] 02/19 @ 9 PM\.br\ Unchanged acetaminophen (Tylenol 325 mg Tab) 1 Tablets By Mouth Once PREVIOUSLY TAKEN\.br\ Unchanged aspirin (aspirin 81 mg Chew Tab) 1 Tablets By Mouth Every day Pulmonary embolism on right 02/20 @ 9 AM\.br\ Unchanged famotidine (famotidine 40 mg Tab) 1 Tablets By Mouth Once a day (at bedtime) 02/19 @ 9 PM\.br\ Unchanged fluticasone nasal (Flonase 0.05 mg/ inh [place]) 2 Sprays Nasal Inhalation Every day Allergic rhinitis each nostril 02/20 @ 9 AM\.br\ Unchanged furosemide (Lasix 40 mg Tab) 1 Tablets By Mouth Every day as needed for Edema Edema of both legs NEEDED FOR EDEMA\.br\ Unchanged hydrocortisone topical (hydrocortisone 2.5% Rectal Crm w/ Appl) 1 Application By rectum 2 times a day Anal fissure 02/19 @ 9 PM\.br\ Unchanged lisinopril (lisinopril 10 mg Tab) 1 Tablets By Mouth Every day 02/20 @ 9 AM\.br\ Unchanged metformin (metformin 1000 mg Tab) 1 Tablets By Mouth 2 times a day 02/19 @ 9 PM\.br\ Unchanged omeprazole (omeprazole 40 mg Cap-DR) 1 Capsules By Mouth Every day Gastroesophageal reflux disease with hiatal hernia 02/20 @ 9 AM\.br\ Unchanged polyethylene glycol 3350 with electrolytes (NuLYTELY Mendez oral powder for reconstitution) See instructions See physician instructions prior to procedure. INSTRUCTED PRIOR TO PROCEDURE\.br\ Unchanged potassium chloride (potassium chloride 20 mEq ER Tab) 1 Tablets By Mouth Every day as needed for Edema Edema of both legs Take on the days he takes Lasix NEEDED, TAKE WHEN TAKING LASIX\.br\ Pharmacy Information\.br\ [facility]pharmacy #[id number]: [address] [place] [phone]\.br\ \.br\ What How Much When Comments\.br\ Stop Taking tizanidine (tiZANidine 2 mg Tab) 2 Milligram By Mouth 2 times a day as needed for Spasm\.br\ Test Results\.br\ CBC \.br\ BMP \.br\ WBC: 7.5 E9/L (02/18/23 09:00:00)\.br\ Glucose Lvl: 148 mg/dL (02/19/23 06:52:00)\.br\ RBC: 4.6 E12/L (02/18/23 09:00:00)\.br\ BUN: 10 mg/dL (02/19/23 06:52:00)\.br\ HGB: 14.5 gm/dL (02/18/23 09:00:00)\.br\ Creatinine: 0.9 mg/dL (02/19/23 06:52:00)\.br\ Hct: 42.8 % (02/18/23 09:00:00)\.br\ BUN/Creat Ratio: 11 (02/19/23 06:52:00)\.br\ MCV: 92.4 fL (02/18/23 09:00:00)\.br\ Sodium Lvl: 137 mmol/L (02/19/23 06:52:00)\.br\ MCH: 31.3 pg (02/18/23 09:00:00)\.br\ Potassium Lvl: 4 mmol/L (02/19/23 06:52:00)\.br\ MCHC: 33.9 gm/dL (02/18/23 09:00:00)\.br\ Chloride: 99 mmol/L Low (02/19/23 06:52:00)\.br\ RDW: 14.8 % High (02/18/23 09:00:00)\.br\ CO2: 32 mmol/L High (02/19/23 06:52:00)\.br\ Platelet: 167 E9/L (02/18/23 09:00:00)\.br\ AGAP: 10 mEq/L (02/19/23 06:52:00)\.br\ MPV: 8.2 fL (02/18/23 09:00:00)\.br\ Calcium Lvl: 9.1 mg/dL (02/19/23 06:52:00)\.br\ Allergies\.br\ Zithromax Z-Davey (hives/welts)\.br \ Problems\.br\ Ongoing - Any problem that you are currently receiving treatment for.\.br\ AAA (abdominal aortic aneurysm)\.br\ Acute hypoxemic respiratory failure\.br\ Allergic rhinitis\.br\ Anal fissure\.br\ Arthritis, lumbar spine\.br\ Mccarty esophagus\.br\ Mccarty's esophagus with dysplasia\.br\ BPH associated with nocturia\.br\ CHF exacerbation\.br\ Chronic venous hypertension w ulceration\.br\ Constipation\.br\ Decubitus ulcer of buttock\.br\ Dietary counseling\.br\ Edema of both legs\.br\ Essential hypertension\.br\ Gastroesophageal reflux disease with hiatal hernia\.br\ High serum protein level\.br\ HTN (hypertension)\.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\.br\ Numbness of left hand\.br\ Obesity\.br\ Orthopnea\.br\ Peripheral vascular disease\.br\ Personal history of pulmonary embolism\.br\ Rectal bleeding\.br\ Right shoulder pain\.br\ Sacral decubitus ulcer\.br\ Sacroiliitis\.br\ Screening PSA (prostate specific antigen)\.br\ SOB (shortness of breath)\.br\ Somatic dysfunction of lower extremities\.br\ Somatic dysfunction of lumbar region\.br\ Somatic dysfunction of sacral spine\.br\ Spasm of lumbar paraspinous muscle\.br\ Thrombocytopenia\ .br\ Type 2 diabetes mellitus\.br\ Type 2 diabetes mellitus with morbid obesity\.br\ Wears hearing aid in both ears\.br\ Historical - Any problem that you are no longer receiving treatment for.\.br\ Costochondritis\. br\ Hx of pulmonary embolus\.br\ kidney stones\.br\ Left shoulder pain\.br\ senior care (current) use of anticoagulants\.b r\ Lumbago\.br\ Lumbar radiculopathy, chronic\.br\ Morbid obesity due to excess calories\.br\ Pulmonary embolism on right\.br\ Rib pain on right side\.br\ Spasm of muscle of lower back\.br\ Vertigo, benign paroxysmal\.br\ Education Materials\.br\ Pulmonary Embolism\.br\ \.br\ A pulmonary embolism (PE) is a sudden blockage or decrease of blood flow in one or both lungs that happens when a clot travels into the arteries of the lung (pulmonary arteries). Most blockages come from a blood clot that forms in the vein of a leg or arm (deep vein thrombosis, DVT) and travels to the lungs. A clot is blood that has thickened into a gel or solid. PE is a dangerous and life-threatening condition that needs to be treated right away.\.br\ What are the causes?\.br\ This condition is usually caused by a blood clot that forms in a vein and moves to the lungs. In rare cases, it may be caused by air, fat, part of a tumor, or other tissue that moves through the veins and into the lungs.\.br\ What increases the risk?\.br\ The following factors may make you more [facility] Echo Transthoracic Completeo n 02-19-2023 Echo Transthoracic Complete Normal [facility] Inpatient Clinical Summaryon 02-19-2023 Inpatient Clinical Summary Normal [facility] Inpatient Patient Summaryon 02-19-2023 Inpatient Patient Summary Normal [facility] Interdisciplinary Note - J Carlos e Manageron 02-19-2023 Interdisciplinary Note - Milk Tester Normal [facility] Comment on above: Result Comment: Elec tronically Signed By: Gladis Finney RN\.br\Date and Time Signed: 02/19/23 13:20 EDT Magnesiumon 02-19-2023 Magnesium [Mass/Vol] 1.7 mg/dL Normal 1.3-2.4 [facility] Comment on above: Performed By: #### 2 037544, [id number], [id number] ####[facility] [address] [place] [address] Message from Medicareon 02-09 Message from Medicare [id number]#[id number] CD:127 Normal [facility] PTon 02-19-2023 INR Coag (PPP) [Relative time] 1.0 {INR} Invalid Interpretation Code [facility] Comment on above: Result Comment: INR results are specifically intended to assess patients stabilized on long-term Anticoagulation therapy suggested INR?s ?Less Intensive Anticoagulation? 2.0 ? 3.0Conventional Range 3.0 ? 4.5 Performed By: #### 2 135794, 4035758 ####[facility] [address] [place] [address] PT Coag (PPP) [Time] 11.3 second(s) Normal 9.4-12.5 [facility] Comment on above: Result Comment: 15 d ays - 4 weeks 1 - 5 months 6 -11 months 1 ? 5 years 6 ? 10 years 11 -17 years Mean: 11.2 (9.5 ? 12.6) Mean: 11.0 (9.7 ? 12.8) Mean: 11.0 (9.8 ? 13.0) Mean: 11.3 (9.9 ? 13.4) Mean: 11.7 (10.0 ? 14.6) Mean: 11.8 (10.0 - 14.1) Pediatric Reference ranges were obtained from a study by Alin Swain et al. prepared from 1437 samples obtained at 7 different centers using the same coagulation reagent and instrumentation as [facility]. Currently there are no coagulation studies available worldwide for children to 14 days, and no normal ranges. Performed By: #### 2 760718, 0350943 ####[facility] [address] [place] [address] PT & PTTon 02-19-2023 aPTT Coag (PPP) [Time] 77.6 second(s) High 25.1-36.5 [facility] Comment on above: Result Comment: Para meter 15 days - 4 weeks 1 - 5 months 6 - 11 months 1 - 5 years 6 - 10 years 11 - 17 years PTT Mean: 35.4 (27.6-45.6) Mean: 33.5 (24.8-40.7) Mean: 32.4 (25.1-40.7) Mean: 31.6 (24.0-39.2) Mean: 31.6 (26.9-38.7) Mean: 31.0 (24.6-38.4) Pediatric Reference ranges were obtained from a study by eda Sahu. prepared from 1437 samples obtained at 7 different centers using the same coagulation reagent and instrumentation as [facility]. Currently there are no coagulation studies available worldwide for children to 14 days, and no normal ranges. Heparin therapeutic range (represented by Anti-Factor Xa activity of 0.2 - 0.4 U/mL) corresponds to PTT of 56.6 - 109.0 sec. Performed By: #### 1 [id number] ####[facility] [address] [place] [address] INR Coag (PPP) [Relative time] 1.1 {INR} Invalid Interpretation Code [facility] Comment on above: Result Comment: INR results are specifically intended to assess patients stabilized on long-term Anticoagulation therapy suggested INR?s ?Less Intensive Anticoagulation? 2.0 ? 3.0Conventional Range 3.0 ? 4.5 Performed By: #### 1 [id number] ####[facility] [address] [place] [address] PT Coag (PPP) [Time] 12.5 second(s) Normal 9.4-12.5 [facility] Comment on above: Result Comment: 15 d ays - 4 weeks 1 - 5 months 6 -11 months 1- 5 years 6-10 years 11 -17 years Mean: 11.2 (9.5-12.6) Mean: 11.0 (9.7-12.8) Mean: 11.0 (9.8-13.0) Mean: 11.3 (9.9-13.4) Mean: 11.7 (10.0-14.6) Mean: 11.8 (10.0 - 14.1) Pediatric Reference ranges were obtained from a study by eda Sahu. prepared from 1437 samples obtained at 7 different centers using the same coagulation reagent and instrumentation as [facility]. Currently there are no coagulation studies available worldwide for children to 14 days, and no normal ranges. Performed By: #### 1 [id number] ####[facility] [address] [place] [address] PTTon 02-19-2023 aPTT Coag (PPP) [Time] 70.2 second(s) High 25.1-36.5 [facility] Comment on above: Result Comment: Para meter 15 days - 4 weeks 1 - 5 months 6 - 11 months 1 - 5 years 6 - 10 years 11 - 17 years PTT Mean: 35.4 (27.6-45.6) Mean: 33.5 (24.8-40.7) Mean: 32.4 (25.1-40.7) Mean: 31.6 (24.0-39.2) Mean: 31.6 (26.9-38.7) Mean: 31.0 (24.6-38.4) Pediatric Reference ranges were obtained from a study by carol Sahu prepared from 1437 samples obtained at 7 different centers using the same coagulation reagent and instrumentation as [facility]. Currently there are no coagulation studies available worldwide for children to 14 days, and no normal ranges. Heparin therapeutic range (represented by Anti-Factor Xa activity of 0.2 - 0.4 U/mL) corresponds to PTT of 56.6 - 109.0 sec. Performed By: #### 2 739261, 1525123 ####[facility] [address] [place] [address] aPTT Coag (PPP) [Time] 74.4 second(s) High 25.1-36.5 [facility] Comment on above: Result Comment: Para meter 15 days - 4 weeks 1 - 5 months 6 - 11 months 1 - 5 years 6 - 10 years 11 - 17 years PTT Mean: 35.4 (27.6-45.6) Mean: 33.5 (24.8-40.7) Mean: 32.4 (25.1-40.7) Mean: 31.6 (24.0-39.2) Mean: 31.6 (26.9-38.7) Mean: 31.0 (24.6-38.4) Pediatric Reference ranges were obtained from a study by carol Sahu prepared from 1437 samples obtained at 7 different centers using the same coagulation reagent and instrumentation as [facility]. Currently there are no coagulation studies available worldwide for children to 14 days, and no normal ranges. Heparin therapeutic range (represented by Anti-Factor Xa activity of 0.2 - 0.4 U/mL) corresponds to PTT of 56.6 - 109.0 sec. Performed By: #### 2 570206 ####[facility] [address] [place] [address] Patient Education - Texton 0 02-19-2023 Patient Education - Text Normal [facility] eGFRon 02-19-2023 GFR/1.73 sq M.predicted among non-blacks MDRD (S/P/Bld) [Vol rate/Area] 89 mL/min/1.73 m2 Normal >=59 [facility] Comment on above: Order Comment: Order added by Discern Expert. Result Comment: Architectural Practice Manager cristo kidney disease could be indicated at eGFR's of less than 60 mL/min/1.73m2. Kidney failure is indicated at less than 15 mL/min/1.73m2. Performed By: #### 2 131685, [id number], 7708500 ####[facility] [address] [place] [address] Ambulatory Visit Summaryon 0 02-18-2023 Ambulatory Visit Summary Normal [facility] Auto DiffOrdered By: SYSTEM SYSTEM on 02-18-2023 Basophils/100 WBC (Bld) 0.7 % Normal 0.0-2.0 [facility] Comment on above: Order Comment: Order Added by Discern Expert. Performed By: #### 2 352490, 8572861, 64653483, 85792367, 0622816, 34218164, 35036610, 2586049 ####[facility] [address] [place] [address] Basophils/Leukocyte s Auto (Bld) [Pure # fraction] 0.0 E9/L Normal 0.0-0.2 [facility] Comment on above: Order Comment: Order Added by Discern Expert. Performed By: #### 2 856851, 0068446, 28935400, 37243390, 0904962, 22735995, 02499337, 2911095 ####[place] [address] [place] [address] Eosinophils/100 WBC (Bld) 1.7 % Normal 0.0-8.0 [facility] Comment on above: Order Comment: Order Added by Discern Expert. Performed By: #### 2 513178, 9538648, 45644309, 94438255, 4932359, 60852916, 38758091, 0190622 ####[place] [address] [place] [address] Eosinophils/Leukocy [place] Auto (Bld) [Pure # fraction] 0.1 E9/L Normal 0.0-0.5 [facility] Comment on above: Order Comment: Order Added by Discern Expert. Performed By: #### 2 959254, 7278656, 24589281, 81460139, 8039674, 43949100, 18974879, 3311292 ####[place] [address] [address] Lymphocytes/100 WBC (Bld) 20.6 % Normal 14.0-50.0 [facility] Comment on above: Order Comment: Order Added by Discern Expert. Performed By: #### 2 772967, 0417348, 78987826, 31333671, 7364540, 59959204, 12375355, 4437053 ####[address] [address] Lymphocytes/Leukocy [place] Auto (Bld) [Pure # fraction] 1.5 E9/L Normal 1.0-4.0 [facility] Comment on above: Order Comment: Order Added by Discern Expert. Performed By: #### 2 989068, 8061560, 36349526, 11696817, 9938884, 40165088, 22824286, 2401331 ####[address] [place] [address] Monocytes/100 WBC (Bld) 7.5 % Normal 4.0-14.0 [facility] Comment on above: Order Comment: Order Added by Discern Expert. Performed By: #### 2 791385, 9296290, 80500788, 62746396, 8378827, 38815379, 29039530, 8079132 ####[address] [place] [address] Monocytes/Leukocyte s Auto (Bld) [Pure # fraction] 0.6 E9/L Normal 0.2-1.0 [facility] Comment on above: Order Comment: Order Added by Discern Expert. Performed By: #### 2 513324, 2317904, 92186779, 62447836, 6951773, 48524368, 17108808, 8949195 ####[address] [place] [address] Neutrophils/100 WBC (Bld) 69.5 % Normal 36.0-75.0 [facility] Comment on above: Order Comment: Order Added by Discern Expert. Performed By: #### 2 423835, 4856449, 91214218, 14348201, 3115891, 62069232, 76737943, 2931644 ####[address] [address] Neutrophils/Leukocy [place] Auto (Bld) [Pure # fraction] 5.2 E9/L Normal 2.0-7.5 [facility] Comment on above: Order Comment: Order Added by Discern Expert. Performed By: #### 2 296890, 1282839, 02540895, 07377973, 0822559, 79442503, 31509994, 7465249 ####[address] [place] [address] BMPOrdered By: SYSTEM SYSTEM on 02-18-2023 Creatinine [Mass/Vol] 0.9 mg/dL Normal 0.5-1.3 [facility] Comment on above: Performed By: #### 2 878495, 6955884, 63579265, 65427419, 0108218, 77141995, 55133709, 8567947 ####[address] [place] [address] Urea nitrogen [Mass/Vol] 14 mg/dL Normal 5-21 [facility] Comment on above: Performed By: #### 2 072711, 7847032, 98770411, 62011909, 6492388, 51037318, 25403571, 3787375 ####[facility] [address] [place] [address] Anion gap [Moles/Vol] 13 mmol/L Normal 6-16 [facility] Comment on above: Performed By: #### 2 038595, 2837579, 55268075, 00413409, 8817671, 66684750, 93960758, 1310361 ####[facility] [address] [place] [address] Calcium [Mass/Vol] 9.0 mg/dL Normal 8.9-11.1 [facility] Remisol Comment on above: Performed By: #### 2 411393, 0664053, 51559969, 59380790, 5749283, 15926261, 61309092, 8104917 ####[facility] [address] [place] [address] Chloride [Moles/Vol] 98 mmol/L Low 101-111 [facility] Remisol Comment on above: Performed By: #### 2 732730, 6576046, 18453352, 74547904, 4009668, 46991710, 59527400, 6409651 ####[facility] [address] [place] [address] CO2 [Moles/Vol] 27 mmol/L Normal 21-31 [facility] Remisol Comment on above: Performed By: #### 2 215329, 1781561, 34549751, 82822871, 1039013, 18479222, 46394307, 9932664 ####[facility] [address] [place] [address] Glucose [Mass/Vol] 155 mg/dL Normal 55-199 [facility] Remisol Comment on above: Result Comment: If t his glucose result represents a fasting glucose, interpretation should refer to the following reference range: 55-99 mg/dL Performed By: #### 2 702708, 1933062, 07221293, 06111782, 6016842, 93453983, 82675038, 8814661 ####[facility] [address] [place] [address] Potassium [Moles/Vol] 3.7 mmol/L Normal 3.5-5.3 [facility] Remisol Comment on above: Performed By: #### 2 688949, 0173403, 03840783, 46203154, 2101430, 24569619, 33332028, 8964060 ####[facility] [address] [place] [address] Sodium [Moles/Vol] 134 mmol/L Low 135-145 [facility] Remisol Comment on above: Performed By: #### 2 045640, 2014417, 16819022, 05065950, 4892673, 67982447, 64748589, 9373269 ####[facility] [address] [place] [address] BMPon 02-18-2023 Urea nitrogen/Creatinine [Mass ratio] 16 No Units Normal 10-20 [facility] Comment on above: Performed By: #### 2 756956, 2473322, 18178040, 33969980, 0288799, 25479520, 34779796, 4351435 ####[facility] [address] [place] [address] BNPon 02-18-2023 Int Ctr BNP Pass Normal [facility] Comment on above: Performed By: #### 2 059009, 4914761, 90715289, 10541110, 4967196, 19184615, 12182820, 1509752 ####[facility] [address] [place] [address] BNPOrdered By: Gonzales up on 02-18-2023 Natriuretic peptide B (Bld) [Mass/Vol] 21 pg/mL Normal 5-80 [facility] Comment on above: Performed By: #### 2 204076, 3823007, 12348653, 90168191, 9624728, 83432504, 21129670, 8347601 ####[facility] [address] [place] [address] CBC w/ Auto DiffOrdered By: Rafia Caballero on 02-18-2023 Erythrocyte distribution width (RBC) [Ratio] 14.8 % High 10.9-14.2 [facility] Comment on above: Performed By: #### 2 735614, 3604140, 65332595, 15735474, 4630690, 98355589, 96219755, 6873380 ####[facility] [address] [place] [address] Hematocrit (Bld) [Volume fraction] 42.8 % Normal 37.7-49.0 [facility] Comment on above: Performed By: #### 2 184696, 8725992, 65687489, 59678515, 2810487, 18580121, 43708312, 5346544 ####[facility] [address] [place] [address] Hemoglobin (Bld) [Mass/Vol] 14.5 g/dL Normal 13.5-17.5 [facility] Comment on above: Performed By: #### 2 405439, 5190812, 20365931, 33615407, 3465219, 62262833, 95850366, 9762870 ####[place] [address] [place] [address] MCH (RBC) [Entitic mass] 31.3 pg Normal 27.0-34.0 [facility] Comment on above: Performed By: #### 2 530518, 9560842, 09010676, 93397108, 1018661, 43138360, 27613566, 2999844 ####[place] [address] [place] [address] MCHC (RBC) [Mass/Vol] 33.9 g/dL Normal 31.4-36.0 [facility] Comment on above: Performed By: #### 2 200665, 3439350, 16850939, 17730830, 3233160, 93203182, 82142601, 3586005 ####[place] [address] [place] [address] MCV (RBC) [Entitic vol] 92.4 fL Normal 80.0-100.0 [facility] Comment on above: Performed By: #### 2 529489, 0205384, 97073094, 18493234, 5605507, 99875876, 38027780, 7094264 ####[place] [address] Platelet mean volume (Bld) [Entitic vol] 8.2 fL Normal 6.4-10.8 [facility] Comment on above: Performed By: #### 2 526611, 6241525, 67807117, 99824171, 4375920, 08333797, 52025986, 0294596 ####[place] [address] Platelets (Bld) [#/Vol] 167.0 E9/L Normal 150.0-500.0 [facility] Comment on above: Performed By: #### 2 937048, 8581881, 67920625, 74980374, 4368143, 85381020, 93693725, 6575231 ####[place] [address] [address] RBC (Bld) [#/Vol] 4.6 E12/L Normal 4.3-5.9 [facility] Comment on above: Performed By: #### 2 569880, 6281698, 05309438, 83415065, 4622691, 90286226, 75612652, 3711398 ####[address] [address] WBC corrected for nucl RBC Auto (Bld) [#/Vol] 7.5 E9/L Normal 4.0-11.0 [facility] Comment on above: Performed By: #### 2 096643, 3710420, 77917325, 69102324, 5430167, 89186020, 09531486, 3496296 ####[facility] [address] [place] [address] CHEMISTRYOrdered By: SYSTEM SYSTEM on 02-18-2023 Troponin I.cardiac [Mass/Vol] 13.30 pg/mL Low 15.90 - 38.40 pg/mL [facility] Remisol Troponin I.cardiac [Mass/Vol] 12.90 pg/mL Low 15.90 - 38.40 pg/mL [facility] Remisol Troponin I.cardiac [Mass/Vol] 13.60 pg/mL Low 15.90 - 38.40 pg/mL [facility] Remisol Urea nitrogen/Creatinine [Mass ratio] 16 mg/mg Normal - [facility] Remisol COAGULATIONOrdered By: Nani King on 02-18-2023 PT Coag (PPP) [Time] 11.2 s Normal 9.4 - 12.5 second(s) [facility] Auto Coag CTA Cheston 02-18-2023 CTA Chest Normal [facility] Capillary Glucose POCon 02-09 Glucose [Mass/Vol] 173 mg/dL High 55-99 [facility] Comment on above: Result Comment: Ashley kati Meter Performed By: #### 2 02093414 ####[facility] [address] [place] [address] Glucose [Mass/Vol] 131 mg/dL High 55-99 [facility] Comment on above: Result Comment: Georgette palacios RN/ Performed By: #### 2 14281379 ####[facility] [address] [place] [address] Consent for Treatmenton 02-09 Consent for Treatment [id number] D:127 Normal [facility] ED Clinical Summaryon 2022 ED Clinical Summary Normal [facility] ED Note-Physicianon 02-19-20 ED Note-Physician Normal [facility] Comment on above: Result Comment: Elec tronically Signed By: Kim Ledezma, Arturo Sarmiento.br\Date and Time Signed: 02/18/23 12:50 EDT ED Patient Education Noteon 02-18-2023 ED Patient Education Note Normal [facility] ED Patient Summaryon 023 ED Patient Summary Normal [facility] Family Medicine Office/Clini c Noteon 02-18-2023 Family Medicine Office/Clinic Note Normal [facility] Comment on above: Result Comment: Elec tronically Signed By: Mt GOODEN DO, FAAFP\Date and Time Signed: 02/18/23 08:47 EDT [facility] Education Videoon [facility] Anesthesia Education Video Yes Patient Avoiding Infections in the Hospital Normal [facility] Interdisciplinary Note - Raulito singon 02-18-2023 Interdisciplinary Note - Nursing Received wound consult, upon assessment no open areas noted. Patient and stated at times legs will weep. Order put in; May use ABD and Kerlex if legs begin to weep. Normal [facility] MagnesiumOrdered By: SYSTEM SYSTEM on 02-18-2023 Magnesium [Mass/Vol] 1.5 mg/dL Normal 1.3-2.4 [facility] Remisol Comment on above: Performed By: #### 2 322847, 7661081, 29928428, 54441393, 6200517, 12042589, 36879087, 1718028 ####[facility] [address] [place] [address] Monitor Recordon 02-18-2023 Monitor Record [id number]#[id number] CD:127 Normal [facility] Monitor Record [id number]#[id number] CD:127 Normal [facility] Monitor Record [id number]#[id number] CD:127 Normal [facility] No Panel InformationOrdered By: ANGPROCESSSERVER MICROBIOLOGY on 02-18-2023 Blood Culture Charcoal No growth at 1 day. Final to follow at 7 days. [facility] PT & PTTon 02-18-2023 aPTT Coag (PPP) [Time] 29.6 second(s) Normal 25.1-36.5 [facility] Comment on above: Result Comment: Para meter 15 days - 4 weeks 1 - 5 months 6 - 11 months 1 - 5 years 6 - 10 years 11 - 17 years PTT Mean: 35.4 (27.6-45.6) Mean: 33.5 (24.8-40.7) Mean: 32.4 (25.1-40.7) Mean: 31.6 (24.0-39.2) Mean: 31.6 (26.9-38.7) Mean: 31.0 (24.6-38.4) Pediatric Reference ranges were obtained from a study by manolo Sahu al. prepared from 1437 samples obtained at 7 different centers using the same coagulation reagent and instrumentation as [facility]. Currently there are no coagulation studies available worldwide for children to 14 days, and no normal ranges. Heparin therapeutic range (represented by Anti-Factor Xa activity of 0.2 - 0.4 U/mL) corresponds to PTT of 56.6 - 109.0 sec. Performed By: #### 2 338729, 5977069, 76361186, 24170848, 2851207, 02291806, 15494412, 8317544 ####[facility] [place] [address] PT Coag (PPP) [Time] 11.2 second(s) Normal 9.4-12.5 [facility] Comment on above: Result Comment: 15 d ays - 4 weeks 1 - 5 months 6 -11 months 1- 5 years 6-10 years 11 -17 years Mean: 11.2 (9.5-12.6) Mean: 11.0 (9.7-12.8) Mean: 11.0 (9.8-13.0) Mean: 11.3 (9.9-13.4) Mean: 11.7 (10.0-14.6) Mean: 11.8 (10.0 - 14.1) Pediatric Reference ranges were obtained from a study by carol Sahu prepared from 1437 samples obtained at 7 different centers using the same coagulation reagent and instrumentation as [facility]. Currently there are no coagulation studies available worldwide for children to 14 days, and no normal ranges. Performed By: #### 2 492311, 0381141, 68805728, 78022939, 0326103, 78904905, 27235809, 1217278 ####[facility] [address] [place] [address] PT & PTTOrdered By: Catalina King on 02-18-2023 INR Coag (PPP) [Relative time] 1.0 {INR} Invalid Interpretation Code [facility] Auto Coag Comment on above: Result Comment: INR results are specifically intended to assess patients stabilized on long-term Anticoagulation therapy suggested INR?s ?Less Intensive Anticoagulation? 2.0 ? 3.0Conventional Range 3.0 ? 4.5 Performed By: #### 2 169776, 2645842, 94012143, 88384358, 5576356, 87936414, 17780352, 7616150 ####[facility] [address] [place] [address] PTTon 02-18-2023 aPTT Coag (PPP) [Time] 98.5 second(s) Abnormal 25.1-36.5 [facility] Comment on above: Result Comment: Resu lts Called To LAKSHMI LLAMAS By MIKE DUGAN And Read Back For Confirmation On 02/18/2023 18:07:51 EDTResults Verified By Repeat AnalysisParameter 15 days - 4 weeks 1 - 5 months 6 - 11 months 1 - 5 years 6 - 10 years 11 - 17 years PTT Mean: 35.4 (27.6-45.6) Mean: 33.5 (24.8-40.7) Mean: 32.4 (25.1-40.7) Mean: 31.6 (24.0-39.2) Mean: 31.6 (26.9-38.7) Mean: 31.0 (24.6-38.4) Pediatric Reference ranges were obtained from a study by Alin Swain et al. prepared from 1437 samples obtained at 7 different centers using the same coagulation reagent and instrumentation as [facility]. Currently there are no coagulation studies available worldwide for children to 14 days, and no normal ranges. Heparin therapeutic range (represented by Anti-Factor Xa activity of 0.2 - 0.4 U/mL) corresponds to PTT of 56.6 - 109.0 sec. Performed By: #### 2 683361 ####[facility] [address] [place] [address] Patient Educationon 02-19-20 23 Patient Education Normal [facility] Pre-Arrival Noteon 3 Pre-Arrival Note Normal [facility] Troponin 0 Hr.on 02-18-2023 Troponin I.cardiac [Mass/Vol] 12.00 pg/mL Low 15.90-38.40 [facility] Comment on above: Result Comment: The 95% CI (Confidence Interval) PPV (Positive Predictive Value) for myocardial infarction in females is 38 pg/mL, in males 51 pg/mL. The results should be used in conjunction with clinical conditions of myocardial infarction.([employer] High Sensitivity Troponin I Instructions For Use, [email or web address], March 2018) Performed By: #### 2 607406, 3477070, 98409807, 15015751, 9004166, 63668762, 91761657, 4748541 ####[facility] [address] [place] [address] Troponin 3 Hr.on 02-18-2023 Troponin I.cardiac [Mass/Vol] 13.60 pg/mL Low 15.90-38.40 [facility] Comment on above: Result Comment: The 95% CI (Confidence Interval) PPV (Positive Predictive Value) for myocardial infarction in females is 38 pg/mL, in males 51 pg/mL. The results should be used in conjunction with clinical conditions of myocardial infarction.(Access High Sensitivity Troponin I Instructions For Use, [email or web address] 2018) Performed By: #### 1 [id number] ####[facility] [address] [place] [address] Troponin 6 Hr.on 02-18-2023 Troponin I.cardiac [Mass/Vol] 12.90 pg/mL Low 15.90-38.40 [facility] Comment on above: Result Comment: The 95% CI (Confidence Interval) PPV (Positive Predictive Value) for myocardial infarction in females is 38 pg/mL, in males 51 pg/mL. The results should be used in conjunction with clinical conditions of myocardial infarction.(Access High Sensitivity Troponin I Instructions For Use, [email or web address] 2018) Performed By: #### 1 [id number] ####[facility] [address] [place] [address] Troponin 9 Hr.on 02-18-2023 Troponin I.cardiac [Mass/Vol] 13.30 pg/mL Low 15.90-38.40 [facility] Comment on above: Result Comment: The 95% CI (Confidence Interval) PPV (Positive Predictive Value) for myocardial infarction in females is 38 pg/mL, in males 51 pg/mL. The results should be used in conjunction with clinical conditions of myocardial infarction.(Access High Sensitivity Troponin I Instructions For Use, Nikky Friendly Score, March 2018) Performed By: #### 1 [id number] ####[facility] [address] [place] [address] US LE Venous Duplex Bilatera allison 02-18-2023 US LE Venous Duplex Bilateral Normal [facility] XR Abdomen 1 Viewon 02-19-20 XR Abdomen 1 View Normal [facility] XR Chest Single Viewon 02-18 XR Chest Single View Normal [facility] eGFROrdered By: SYSTEM Data CampE CreationFlow on 02-18-2023 GFR/1.73 sq M.predicted among non-blacks MDRD (S/P/Bld) [Vol rate/Area] 89 mL/min/1.73 m2 Normal >=59 [facility] Chem S Comment on above: Order Comment: Order added by Discern Expert. Result Comment: Architectural Practice Manager cristo kidney disease could be indicated at eGFR's of less than 60 mL/min/1.73m2. Kidney failure is indicated at less than 15 mL/min/1.73m2. Performed By: #### 2 687656, 8038541, [id number], [id number], 1563433, [id number], [id number], 8908305 ####[facility] [address] [place] [address] Auto Diffon 02-15-2023 Basophils/100 WBC (Bld) 1.0 % Normal 0.0-2.0 [facility] Comment on above: Order Comment: Order Added by Discern Expert. Performed By: #### 2 867516, 2745531, 6659806 ####[place] [place] [address] Basophils/Leukocyte s Auto (Bld) [Pure # fraction] 0.1 E9/L Normal 0.0-0.2 [facility] Comment on above: Order Comment: Order Added by Discern Expert. Performed By: #### 2 910710, 1346433, 8799952 ####[address] [address] Eosinophils/100 WBC (Bld) 2.1 % Normal 0.0-8.0 [facility] Comment on above: Order Comment: Order Added by Discern Expert. Performed By: #### 2 428427, 9712424, 1496234 ####[address] [address] Eosinophils/Leukocy cam[place] Auto (Bld) [Pure # fraction] 0.2 E9/L Normal 0.0-0.5 [facility] Comment on above: Order Comment: Order Added by Discern Expert. Performed By: #### 2 133829, 3299414, 1596464 ####[address] [address] Lymphocytes/100 WBC (Bld) 23.5 % Normal 14.0-50.0 [facility] Comment on above: Order Comment: Order Added by Discern Expert. Performed By: #### 2 922778, 7719663, 9299469 ####[address] [address] Lymphocytes/Leukocy camden Auto (Bld) [Pure # fraction] 1.9 E9/L Normal 1.0-4.0 [facility] Comment on above: Order Comment: Order Added by Rudi Expert. Performed By: #### 2 801754, 2165593, 8652620 ####[address] [address] Monocytes/100 WBC (Bld) 7.5 % Normal 4.0-14.0 [facility] Comment on above: Order Comment: Order Added by Discern Expert. Performed By: #### 2 638537, 7215535, 8214704 ####[place] [address] [place] [address] Monocytes/Leukocyte s Auto (Bld) [Pure # fraction] 0.6 E9/L Normal 0.2-1.0 [facility] Comment on above: Order Comment: Order Added by Discern Expert. Performed By: #### 2 926903, 5629856, 7057235 ####[address] [address] Neutrophils/100 WBC (Bld) 65.9 % Normal 36.0-75.0 [facility] Comment on above: Order Comment: Order Added by Discern Expert. Performed By: #### 2 241852, 4482528, 3456728 ####[address] [address] Neutrophils/Leukocy cam[place] Auto (Bld) [Pure # fraction] 5.2 E9/L Normal 2.0-7.5 [facility] Comment on above: Order Comment: Order Added by Discern Expert. Performed By: #### 2 701487, 2589656, 6205498 ####[address] [address] CBC w/ Auto Diffon 3 Erythrocyte distribution width (RBC) [Ratio] 15.1 % High 10.9-14.2 [facility] Comment on above: Performed By: #### 2 225455, 5518337, 6017288 ####[address] [address] Hematocrit (Bld) [Volume fraction] 44.1 % Normal 37.7-49.0 [facility] Comment on above: Performed By: #### 2 862608, 6616415, 4851921 ####[address] [address] Hemoglobin (Bld) [Mass/Vol] 14.7 g/dL Normal 13.5-17.5 [facility] Comment on above: Performed By: #### 2 837287, 6244487, 2624438 ####[place] [address] MCH (RBC) [Entitic mass] 30.8 pg Normal 27.0-34.0 [facility] Comment on above: Performed By: #### 2 334551, 1050804, 8096830 ####[facility] [address] [place] [address] MCHC (RBC) [Mass/Vol] 33.2 g/dL Normal 31.4-36.0 [facility] Comment on above: Performed By: #### 2 921907, 3988214, 0842970 ####[place] [address] MCV (RBC) [Entitic vol] 92.7 fL Normal 80.0-100.0 [facility] Comment on above: Performed By: #### 2 639511, 6802219, 4527906 ####[place] [address] Platelet mean volume (Bld) [Entitic vol] 8.3 fL Normal 6.4-10.8 [facility] Comment on above: Performed By: #### 2 310105, 5823781, 5907972 ####[place] [address] Platelets (Bld) [#/Vol] 177.0 E9/L Normal 150.0-500.0 [facility] Comment on above: Performed By: #### 2 440848, 6958989, 3985609 ####[place] [address] RBC (Bld) [#/Vol] 4.8 E12/L Normal 4.3-5.9 [facility] Comment on above: Performed By: #### 2 052224, 5713432, 0557467 ####[address] [address] WBC corrected for nucl RBC Auto (Bld) [#/Vol] 8.0 E9/L Normal 4.0-11.0 [facility] Comment on above: Performed By: #### 2 559660, 4531449, 2823022 ####[facility] [address] [place] [id number] CHEMISTRYOrdered By: SYSTEM SYSTEM on 02-15-2023 Albumin [Mass/Vol] 3.9 g/dL Normal 3.3 - 5.0 gm/dL [facility] Remisol Albumin/Globulin [Mass ratio] 1.0 {ratio} Low 1.1 - 2.2 [facility] Remisol ALP [Catalytic activity/Vol] 66 [iU]/d Normal 21 - 98 Int._Unit/L [facility] Remisol ALT No additional P-5'-P [Catalytic activity/Vol] 32 [iU]/d Normal 6 - 46 Int._Unit/L [facility] Remisol AST [Catalytic activity/Vol] 36 [iU]/d Normal 5 - 43 Int._Unit/L [facility] Remisol Bilirubin [Mass/Vol] 0.6 mg/dL Normal 0.0 - 1.1 mg/dL [facility] Remisol Bilirubin.direct [Mass/Vol] 0.1 mg/dL Normal 0.1 - 0.4 mg/dL [facility] Remisol Bilirubin.indirect [Mass or moles/Vol] 0.5 mg/dL Normal 0.1 - 0.9 mg/dL [facility] Remisol Globulin (S) [Mass/Vol] 4.0 g/dL Normal 1.4 - 4.0 gm/dL [facility] Remisol Protein [Mass/Vol] 7.9 g/dL High 6.0 - 7.8 gm/dL [facility] Remisol CHEMISTRYOrdered By: Gonzales William on 02-15-2023 HbA1c (Bld) [Mass fraction] 6.8 % High <=5.9% FT ChemAutoSS Consent for Treatmenton Consent for Treatment [id number]#1.00C D:127 Normal [facility] HEMATOLOGYOrdered By: SYSTEM SYSTEM on 02-15-2023 Basophils/100 WBC (Bld) 1.0 % Normal 0.0 - 2.0 % FT HemeAutoSS Basophils/Leukocyte s Auto (Bld) [Pure # fraction] 0.1 E9/L Normal 0.0 - 0.2 E9/L [facility] HemeAutoSS Eosinophils/100 WBC (Bld) 2.1 % Normal 0.0 - 8.0 % [facility] HemeAutoSS Eosinophils/Leukocy [place] Auto (Bld) [Pure # fraction] 0.2 E9/L Normal 0.0 - 0.5 E9/L [facility] HemeAutoSS Lymphocytes/100 WBC (Bld) 23.5 % Normal 14.0 - 50.0 % [facility] HemeAutoSS Lymphocytes/Leukocy cam[place] Auto (Bld) [Pure # fraction] 1.9 E9/L Normal 1.0 - 4.0 E9/L [facility] HemeAutoSS Monocytes/100 WBC (Bld) 7.5 % Normal 4.0 - 14.0 % [facility] HemeAutoSS Monocytes/Leukocyte s Auto (Bld) [Pure # fraction] 0.6 E9/L Normal 0.2 - 1.0 E9/L [facility] HemeAutoSS Neutrophils/100 WBC (Bld) 65.9 % Normal 36.0 - 75.0 % [facility] HemeAutoSS Neutrophils/Leukocy cam[place] Auto (Bld) [Pure # fraction] 5.2 E9/L Normal 2.0 - 7.5 E9/L [facility] HemeAutoSS HEMATOLOGYOrdered By: Keturah Bar on 02-15-2023 Erythrocyte distribution width (RBC) [Ratio] 15.1 % High 10.9 - 14.2 % [facility] HemeAutoSS Hematocrit (Bld) [Volume fraction] 44.1 % Normal 37.7 - 49.0 % [facility] HemeAutoSS Hemoglobin (Bld) [Mass/Vol] 14.7 g/dL Normal 13.5 - 17.5 gm/dL [facility] HemeAutoSS MCH (RBC) [Entitic mass] 30.8 pg Normal 27.0 - 34.0 pg [facility] HemeAutoSS MCHC (RBC) [Mass/Vol] 33.2 g/dL Normal 31.4 - 36.0 gm/dL [facility] HemeAutoSS MCV (RBC) [Entitic vol] 92.7 fL Normal 80.0 - 100.0 fL [facility] HemeAutoSS Platelet mean volume (Bld) [Entitic vol] 8.3 fL Normal 6.4 - 10.8 fL [facility] HemeAutoSS Platelets (Bld) [#/Vol] 177.0 E9/L Normal 150.0 - 500.0 E9/L [facility] HemeAutoSS RBC (Bld) [#/Vol] 4.8 E12/L Normal 4.3 - 5.9 E12/L [facility] HemeAutoSS WBC corrected for nucl RBC Auto (Bld) [#/Vol] 8.0 E9/L Normal 4.0 - 11.0 E9/L [facility] HemeAutoSS Hep Func Panelon 02-15-2023 Albumin [Mass/Vol] 3.9 g/dL Normal 3.3-5.0 [facility] Comment on above: Performed By: #### 2 455879, 0785722, 7067223 ####[facility] [address] [place] [address] Albumin/Globulin (S) [Mass conc ratio] 1.0 Low 1.1-2.2 [facility] Comment on above: Performed By: #### 2 629834, 6918691, 3710152 ####[address] [address] ALP [Catalytic activity/Vol] 66 Int._Unit/L Normal 21-98 [facility] Comment on above: Performed By: #### 2 714305, 6409392, 0000342 ####[address] [address] ALT No additional P-5'-P [Catalytic activity/Vol] 32 Int._Unit/L Normal 6-46 [facility] Comment on above: Performed By: #### 2 641091, 4940252, 8676966 ####[facility] [address] [place] [address] AST [Catalytic activity/Vol] 36 Int._Unit/L Normal 5-43 [facility] Comment on above: Performed By: #### 2 427375, 7479478, 0545466 ####[place] [place] [address] Bilirubin [Mass/Vol] 0.6 mg/dL Normal 0.0-1.1 [facility] Comment on above: Performed By: #### 2 598790, 9677388, 4172236 ####[place] [address] [place] [address] Bilirubin.direct [Mass/Vol] 0.1 mg/dL Normal 0.1-0.4 [facility] Comment on above: Performed By: #### 2 007259, 2288508, 5902133 ####[address] [address] Bilirubin.indirect [Mass or moles/Vol] 0.5 mg/dL Normal 0.1-0.9 [facility] Comment on above: Performed By: #### 2 601189, 7601263, 8306881 ####[address] [address] Globulin (S) [Mass/Vol] 4.0 g/dL Normal 1.4-4.0 [facility] Comment on above: Performed By: #### 2 980528, 2587029, 6313347 ####[address] [address] Protein [Mass/Vol] 7.9 g/dL High 6.0-7.8 [facility] Comment on above: Performed By: #### 2 781798, 8798897, 8704196 ####[address] [address] HrdY1hlc 02-15-2023 HbA1c (Bld) [Mass fraction] 6.8 % High <=5.9 [facility] Comment on above: Performed By: #### 7 [id number] ####[address] [address] CNPShireen 2023 [place] Telephone (RHEUMN) JAS GONZALEZ ([id number]) 1950 M DEF Date Time Provider Department 01/28/23 JUMA MONK During your visit today, we recorded the following information about you: Juma Monk MD 2023 1:33 PM Signed Patient called to discuss test results. 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 There was no evidence of sacroiliitis. Also has right iliopsoas bursitis and left labral cyst. Recommend follow up with spine and orthopedics. Sed rate normal if adjusted for age, CRP normal. There is no evidence os inflammatory arthritis or spondyloarthritis. Allergies As of Date: 2023 Noted Allergy Reaction Z PACK (AZITHROMYCIN) 06/08/2022 4 - Hives Comments: sensitivity Date Reviewed: 12/05/2022 Reviewed by: Valery Castro - Fully Assessed Reason for Visit: Patient Update [1234] Prescriptions as of 2023 - aspirin 81 mg chewable tablet Take by mouth. - pioglitazone (ACTOS) 45 mg tablet - famotidine (PEPCID) 40 mg tablet Take 40 mg by mouth daily at bedtime. - fluticasone (FLONASE) 50 mcg/actuation nasal spray Use in the nose. - Fluorouracil 5 % cream apply to face and ears - lisinopril (ZESTRIL) 10 mg tablet Take by mouth. - meloxicam (MOBIC) 7.5 mg tablet Take 7.5 mg by mouth once daily. - metFORMIN (GLUCOPHAGE) 1,000 mg tablet Take 1,000 mg by mouth once daily. - omeprazole (PRILOSEC) 40 mg capsule Take 40 mg by mouth once daily. - tiZANidine (ZANAFLEX) 2 mg tablet Take by mouth. 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/2022 Diabetes mellitus (HCC) [E11.9] 12/14/2021 Diaphragmatic hernia [K44.9] 02/22/2022 History of pulmonary embolism [Z86.711] 02/20/2022 Encounter Status:Closed by JUMA MONK on 01/28/23 Normal [facility] CRP SerPl-mCncon 01-25-2023 CRP [Mass/Vol] 0.7 mg/dL Normal <0.9 [facility] Comment on above: Order Comment: Speci men Type: BLOOD SPECIMENOrdering Facility: [facility] Address: [address] [place] [address] Performed By: #### 1 988-5 ####[facility] [id number] [address] [place] ESR Westergren method (Bld) [Velocity]on 01-25-2023 ESR (Bld) [Velocity] 24 mm/h High 0-15 [facility] Comment on above: Order Comment: Speci men Type: BLOOD SPECIMENOrdering Facility: [facility] Address: [address] [place] [address] Performed By: #### 4 537-7 ####[facility] [id number] [address] [place] MRI SACRUM/COCCYX WO IVCONon 01-25-2023 MRI SACRUM/COCCYX WO IVCON * * *Final Report* * * DATE OF EXAM: Jan 25 2023 8:15AM LN 0235 - MRI SACRUM/COCCYX WO IVCON / PROCEDURE REASON: Sacrococcygeal disorders, not elsewhere classified * * * * Physician Interpretation * * * * MRI SACRUM/COCCYX WITHOUT CONTRAST INDICATION: Sacrococcygeal disorders, not elsewhere classified . COMPARISON: Sacral iliac joint radiographs 12/05/2022. TECHNIQUE: Multiplanar, multisequence imaging of the sacrum/coccyx was performed without contrast. RESULT: LIMITATIONS: Large patient body habitus. Significant study limitations due to motion artifacts, areas of incomplete fat suppression and field inhomogeneity, and diminished plfmyy-uz-jsaqf ratio. SACROILIAC JOINTS: Apparent mild partial ankylosis and bridging osteophytes of the right sacroiliac joint superiorly. Also mild bridging osteophytes on the left. No sacroiliac diastasis or joint effusion. No evidence of erosion or sacroiliitis. BONE MARROW: No visualized acute fracture, stress reaction, avascular necrosis, or pathologic marrow replacing lesion. MUSCLES: Mild diffuse fatty muscle atrophy of musculature about the pelvis greater involving the gluteal and partially imaged lower lumbar paraspinal musculature. No visualized muscle strain. OTHER: Fluid collection extending along the right iliopsoas tendon sheath/bursa at the level the right hip joint compatible with bursitis measuring approximately 1.0 x 1.2 x 5.7 cm. Cystlike collection about the superior left hip joint extending along the lateral aspect of the superior acetabulum, measuring approximately 1.4 x 0.6 x 1.6 cm, suspicious for a paralabral cyst or ganglion cyst. Bilateral hip osteophytes. Physiologic quantity of hip joint fluid bilaterally. Pubic symphysis is maintained. Bilateral fat-containing inguinal hernias. Marked degenerative changes of the included lower lumbar spine. LOCALIZER IMAGES: No other significant findings. IMPRESSION: Study limitations including significant motion artifacts. Bilateral sacroiliac degenerative changes with apparent mild partial ankylosis on the right and bilateral bridging osteophytes. No evidence of sacroiliitis. Right iliopsoas bursitis. Bilateral hip degenerative changes and suspected left superior paralabral or ganglion cyst. Marked lower lumbar spine degenerative changes. Negotiations Director: PSCB Transcribe Date/Time: Jan 25 2023 11:15A Dictated by : GAGE BLUM MD This examination was interpreted and the report reviewed and electronically signed by: GAGE BLUM MD on Jan 25 2023 12:05PM EST [id number] Normal [facility] Consent for Procedure/Surger yon 01-24-2023 Consent for Procedure/Surgery [id number]#[id number] CD:127 Normal [facility] Gastroenterology Office/Clin ic Noteon 01-24-2023 Gastroenterology Office/Clinic Note Normal [facility] Comment on above: Result Comment: Elec tronically Signed By: Zahra Barton\.br\Date and Time Signed: 01/23/23 12:42 EDT\.br\Electronically Co-Signed By: Joycelyn CHERRY MD\.br\Date and Time Co-Signed: 01/24/23 09:04 EDT Ambulatory Visit Summaryon 0 01-23-2023 Ambulatory Visit Summary Normal [address] [place] [address]- \.br\ Medications\.br\ What How Much When Why Instructions\.br\ New hydrocortisone topical (hydrocortisone 2.5% Rectal Crm w/ Appl) 1 Application By rectum 2 times a day Anal fissure Printed Prescription\.br\ Unchanged acetaminophen (Tylenol 325 mg Tab) 1 Tablets By Mouth Once\.br\ Unchanged aspirin (aspirin 81 mg Chew Tab) 1 Tablets By Mouth Every day Pulmonary embolism on right\.br\ Unchanged famotidine (famotidine 40 mg Tab) 1 Tablets By Mouth Once a day (at bedtime)\.br\ Unchanged fluticasone nasal (Flonase 0.05 mg/ inh [place]) 2 Sprays Nasal Inhalation Every day Allergic rhinitis each nostril \.br\ Unchanged furosemide (Lasix 40 mg Tab) 1 Tablets By Mouth Every day as needed for Edema Edema of both legs\.br\ Unchanged lisinopril (lisinopril 10 mg Tab) 1 Tablets By Mouth Every day\.br\ Unchanged metformin (metformin 1000 mg Tab) 1 Tablets By Mouth 2 times a day\.br\ Unchanged omeprazole (omeprazole 40 mg Cap-DR) 1 Capsules By Mouth Every day Gastroesophageal reflux disease with hiatal hernia\.br\ Unchanged potassium chloride (potassium chloride 20 mEq ER Tab) 1 Tablets By Mouth Every day as needed for Edema Edema of both legs Take on the days he takes Lasix \.br\ Unchanged tizanidine (tiZANidine 2 mg Tab) 2 Milligram By Mouth 2 times a day as needed for Spasm\.br\ Allergies\.br\ Zithromax Z-Davey (hives/welts)\.br \ Problems\.br\ Ongoing - Any problem that you are currently receiving treatment for.\.br\ AAA (abdominal aortic aneurysm)\.br\ Allergic rhinitis\.br\ Anal fissure\.br\ Arthritis, lumbar spine\.br\ Mccarty's esophagus with dysplasia\.br\ BPH associated with nocturia\.br\ Decubitus ulcer of buttock\.br\ Dietary counseling\.br\ Edema of both legs\.br\ Elevated liver transaminase level\.br\ Essential hypertension\.br\ Gastroesophageal reflux disease with hiatal hernia\.br\ High serum protein level\.br\ senior care current use of oral hypoglycemic drug\.br\ Numbness of left hand\.br\ Personal history of pulmonary embolism\.br\ Rectal bleeding\.br\ Right shoulder pain\.br\ Sacroiliitis\.br\ Screening PSA (prostate specific antigen)\.br\ SOB (shortness of breath)\.br\ Somatic dysfunction of lower extremities\.br\ Somatic dysfunction of lumbar region\.br\ Somatic dysfunction of sacral spine\.br\ Spasm of lumbar paraspinous muscle\.br\ Thrombocytopenia\ .br\ Type 2 diabetes mellitus with morbid obesity\.br\ Wears hearing aid in both ears\.br\ Historical - Any problem that you are no longer receiving treatment for.\.br\ Costochondritis\. br\ Hx of pulmonary embolus\.br\ kidney stones\.br\ Left shoulder pain\.br\ senior care (current) use of anticoagulants\.b r\ Lumbago\.br\ Lumbar radiculopathy, chronic\.br\ Morbid obesity due to excess calories\.br\ Obesity\.br\ Pulmonary embolism on right\.br\ Rib pain on right side\.br\ Spasm of muscle of lower back\.br\ Vertigo, benign paroxysmal\.br\ \.br\ [facility] Physician Orderon 12-18-2022 Physician Order [id number] D:127 Normal [facility] Physician Order [id number] D:127 Normal [facility] 12-17-2022 [place] Tele[place] (RHEUMN) JAS GONZALEZ ([id number]) 1950 M DEF Date Time Provider Department 12/17/22 JUMA MONK During your visit today, we recorded the following information about you: Juma Monk MD 12/17/2022 2:49 PM Signed X ray SI joint done on 12/05/2022 showed- Degenerative changes and suspicion of partial ankylosis of the right sacroiliac joint. Recommend MRI SI joint, will also obtain sed rate and CRP. He wants the orders faxed to . Advised to fax results back to me. Follow-up after the test results. Allergies As of Date: 12/17/2022 Noted Allergy Reaction Z PACK (AZITHROMYCIN) 06/08/2022 4 - Hives Comments: sensitivity Date Reviewed: 12/05/2022 Reviewed by: Valery Castro - Fully Assessed Reason for Visit: Results [95] Primary Visit Diagnosis:Sacrococcygea l disorders, not elsewhere classified [M53.3] Order(s):MRI SACRUM/COCCYX WO IVCON [3506275] Order #: [id number] FUTURE C-REACTIVE PROTEIN (CRP) [SQCRP] Order #: [id number] FUTURE SED RATE WESTERGREN [SQWSR] Order #: [id number] FUTURE Prescriptions as of 12/17/2022 - aspirin 81 mg chewable tablet Take by mouth. - pioglitazone (ACTOS) 45 mg tablet - famotidine (PEPCID) 40 mg tablet Take 40 mg by mouth daily at bedtime. - fluticasone (FLONASE) 50 mcg/actuation nasal spray Use in the nose. - Fluorouracil 5 % cream apply to face and ears - lisinopril (ZESTRIL) 10 mg tablet Take by mouth. - meloxicam (MOBIC) 7.5 mg tablet Take 7.5 mg by mouth once daily. - metFORMIN (GLUCOPHAGE) 1,000 mg tablet Take 1,000 mg by mouth once daily. - omeprazole (PRILOSEC) 40 mg capsule Take 40 mg by mouth once daily. - tiZANidine (ZANAFLEX) 2 mg tablet Take by mouth. Problem List As Of Date 12/17/2022 Noted Resolved Class 3 severe obesity due to excess calories w*12/14/2021 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] 06/08/2022 Diabetes mellitus (HCC) [E11.9] 12/14/2021 Diaphragmatic hernia [K44.9] 02/22/2022 History of pulmonary embolism [Z86.711] 02/20/2022 Encounter Status:Closed by JUMA MONK on 12/17/22 Normal [facility] Ambulatory Visit Summaryon 0 12-10-2022 Ambulatory Visit Summary Invalid Interpretation Code [address], [place] [address]- \.br\ Saturday 11:00 AM EST \.br\ With:\.br\ Where: [facility] Family Medicine Office/Clini c Noteon 12-10-2022 Family Medicine Office/Clinic Note Normal [facility] Comment on above: Result Comment: Elec tronically Signed By: Mt GOODEN DO, FAAFP\.br\Date and Time Signed: 12/10/22 10:50 EDT Patient Educationon 12-11-19 Patient Education Normal [facility] Consultation Noteon 12-09-19 Consultation Note [id number] :127 Normal [facility] CNOVon 12-05-2022 CNOV Office Visit (KRYSTIN ) JAS GONZALEZ ([id number]) 1950 M DEF Date Time Provider Department 12/05/22 1:00 PM JUMA MONK During your visit today, we recorded the following information about you: Pulse Respiration Blood pressure Weight 83/minute 18/minute 118/74 154.2 kg Juma Monk MD 12/05/2022 1:29 PM Signed Rheumatology Outpatient Clinic Date of Service: 12/05/2022 Patient: Jas Gonzalez Medical Record: [id number] Primary Care Physician: No primary care provider on file. Referring Provider: THAO DUNCAN(HISTORICAL) Last Rheumatology visit: 11/14/2022 (with Juma Monk) Chief complaint: Follow Up (Denies any concerns/) History of Present Illness Jas Gonzalez is a 72 year old male with medical history of Mccarty's esophagus, GERD, obesity, diabetes mellitus, hiatal hernia, history of PE in 2019, BPH, BCC, SCC, nephrolithiasis, rib fracture after fall, presents on 12/05/2022 for an in-person visit for evaluation of Follow Up (Denies any concerns/). HISTORY OF PRESENT ILLNESS Seen as new patient on, per HPI Patient reports Right buttock pain that started about 6 months ago, can hardly move due to the pain. Denies any trauma or unusual activity. Pain is Triggered by certain movt, lying in bed makes it worse so sleeps in the chair. Had some back pain on and off since injury in 1970s while lifting weight, had slipped disc has been good and bad on and off. Reports that right buttock pain radiates to right thigh and leg with numbness on the sides of thigh and leg Pain is radiating to legs on and off Seen by pain mgt- had MRI and X rays - told to have arthritis?, patient came with disc, report not available in care everywhere. He had cortisone injection in his back that has helped some. PCP recommended rheumatology evaluation Pain is worst with movement and walking, EMS- none No joint swelling Denies history of inflammatory eye disease, inflammatory bowel disease, psoriasis, history of kidney disease/biopsy, peptic ulcer disease, pleural/pericardial effusion, CHF, CAD, CVA. During initial evaluation he did not have any evidence of synovitis, his pain does not seem to be inflammatory. He had MRI CD which was uploaded, more information requested from Roque Cedillo. Received fax, reviewed previous work-ups Previous work-ups MRI lumbar spine 08/2022 Impression-degenerative changes of the lumbar spine Moderate to severe intervertebral disc height loss at L5-S1. Multiple degenerative endplate changes with spurring, disc bulge with superimposed central disc protrusion. Mild facet arthropathy. Mild spinal canal stenosis. No neuroforaminal stenosis L2-L3 small disc bulge with posterior endplate spurring. Minimal retrolisthesis of L2 on L3. Moderate facet arthropathy. Mild spinal canal stenosis. No neuroforaminal stenosis Mentioned sacroiliitis however no imaging of SI joint INTERVAL HISTORY Today He is here for follow-up Discussed that his MRI lumbar spine did not show any signs of inflammatory arthritis however he has degenerative disc disease. He reports that he had injection in the back 3 weeks ago, next day he had some postural adjustment, with immediate relief in pain. Since then severe back pain has resolved. He does have some lower back pain on walking. Denies any peripheral joint pain, denies any joint swelling. Patient-Entered Data PAIN EVALUATION No data found in the last 1 encounters. PROMIS Assessments No flowsheet data found. RAPID 3 Torrez Activities of Daily Living No Data Dress self? - Get in and out of bed? - Walk outdoors? - Wash and dry body? - Get in and out of car? - RAPID 3 Disease Activity Weighed Score Levels: 0 - 1: Near Remission 1.3 - 2.0: Low Severity 2.3 - 4.0: Moderate Severity 4.3 - 10.0: High Severity No flowsheet data found. Review of Systems ROS RHEUMATOLOGY Fever: Denies Change in weight: Gained due to not being able to move Lymphadenopathy: Denies Mucosal ulcers: Denies Skin rash: Denies Photosensitive rash: Denies Alopecia: Denies Chest Pain: Denies Dyspnea: With activities since PE, also relates to weight gain Cough : Clear mucus Difficulty swallowing: Denies Nausea/vomiting: Denies Heartburn: Denies Abdominal Pain: Denies Diarrhea/constipation :Denies Blood in stool : Denies Dysuria/hematuria: Denies Headache: Denies change in vision: Denies Raynaud's: Denies Sicca: Denies Past Medical History PAST MEDICAL HISTORY Diagnosis Date Cancer (HCC) Diabetes (HCC) Past Surgical History No past surgical history on file. Allergy ALLERGIES Allergen Reactions Z Pack [Azithromyci* Hives sensitivity Family History Sister has RA The patient denies family history of SLE, Sarcoidosis, Scleroderma, IBD or Psoriasis. No family history on file. Social Hist (more content not included)... Normal [facility] Coding Summary.on 12-05-2022 Coding Summary. Normal [facility] XR SACROILIAC JOINTS 2V AP P JOSE/FERGUESONon 12-05-2022 [facility] XR SI JTS 2V AP PELV/FERGUSO Non 12-05-2022 XR SI JTS 2V AP PELV/CHARLES * * *Final Report* * * DATE OF EXAM: Dec 05 2022 1:53PM LNX 5245 - XR SI JTS 2V AP PELV/CHARLES / PROCEDURE REASON: Bilateral low back pain with sciatica, sciatica laterality unspecified, unspecif * * * * Physician Interpretation * * * * HISTORY: Bilateral low back pain with sciatica, sciatica laterality unspecified, unspecified chronicity . LOW BACK AND SCIATICA BILATERALLY/ NO INJURY TECHNIQUE: XR SI JTS 2V AP PELV/CHARLES Laterality: NOT APPLICABLE Number of different views (projections): 2 COMPARISON: None RESULT: No visualized acute fracture. Narrowing of the sacroiliac joints bilaterally with mild marginal sclerosis bilaterally suggesting mild mechanical/degenerative changes and suspicion of partial ankylosis on the right. No diastasis or evidence of erosion. Degenerative changes of the included lower lumbar spine. Pubic symphysis is maintained. Hip joint spaces are grossly maintained with tiny osteophytes. Bilateral pelvic and trochanteric enthesopathy. Rounded calcifications overlying the pelvis suggestive of phleboliths. 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 Negotiations Director: PSCB Transcribe Date/Time: Dec 06 2022 2:43P Dictated by : GAGE BLUM MD This examination was interpreted and the report reviewed and electronically signed by: GAGE BLUM MD on Dec 06 2022 2:46PM EST [id number] Normal [facility] CNPShireen 12-04-2022 [place] Telephone (KRYSTIN) JAS GONZALEZ ([id number]) 1950 M DEF Date Time Provider Department 12/04/22 JUMA MONK During your visit today, we recorded the following information about you: Angie Lara MA 12/04/2022 12:44 PM Signed Received outside records for patient. Placed in scanned documents. Angie Lara MA Allergies As of Date: 12/04/2022 Noted Allergy Reaction Z PACK (AZITHROMYCIN) 06/08/2022 4 - Hives Comments: sensitivity Date Reviewed: 11/14/2022 Reviewed by: Lenny Evans MA - Fully Assessed Reason for Visit: Received Outside Medical Records [3576] Prescriptions as of 12/04/2022 - aspirin 81 mg chewable tablet Take by mouth. - pioglitazone (ACTOS) 45 mg tablet - famotidine (PEPCID) 40 mg tablet Take 40 mg by mouth daily at bedtime. - fluticasone (FLONASE) 50 mcg/actuation nasal spray Use in the nose. - Fluorouracil 5 % cream apply to face and ears - lisinopril (ZESTRIL) 10 mg tablet Take by mouth. - meloxicam (MOBIC) 7.5 mg tablet Take 7.5 mg by mouth once daily. - metFORMIN (GLUCOPHAGE) 1,000 mg tablet Take 1,000 mg by mouth once daily. - omeprazole (PRILOSEC) 40 mg capsule Take 40 mg by mouth once daily. - tiZANidine (ZANAFLEX) 2 mg tablet Take by mouth. Problem List As Of Date 12/04/2022 Noted Resolved Class 3 severe obesity due to excess calories w*12/14/2021 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] 06/08/2022 Diabetes mellitus (HCC) [E11.9] 12/14/2021 Diaphragmatic hernia [K44.9] 02/22/2022 History of pulmonary embolism [Z86.711] 02/20/2022 Encounter Status:Closed by ANGIE LARA on 12/04/22 Normal [facility] ABO/Rhon 12-02-2022 ABO/Rh Positive Invalid Interpretation Code [facility] Comment on above: Performed By: #### 2 039975, [id number], 51940368, 77324673 ####[facility] [address] [place] [address] ABO/Rh History Checkon 12-02 ABO/Rh History Check Patient discharged prior Normal [facility] Comment on above: Performed By: #### 2 200394, 03902173, 54149573, 99528777 ####[address] [place] [address] ABSCon 12-02-2022 ABSC Gel Interp Negative Normal [facility] Comment on above: Performed By: #### 2 511525, 36278203, 94795346, 77402435 ####[address] [place] [address] Auto Diffon 12-02-2022 Basophils/100 WBC (Bld) 0.6 % Normal 0.0-2.0 [facility] Comment on above: Order Comment: Order Added by Discern Expert. Performed By: #### 2 344132, 93162350, 5948690, 2420173, 35695940, 9150476 ####[address] [address] Basophils/Leukocyte s Auto (Bld) [Pure # fraction] 0.0 E9/L Normal 0.0-0.2 [facility] Comment on above: Order Comment: Order Added by Discern Expert. Performed By: #### 2 864494, 37856197, 8337166, 6951307, 24870110, 3673202 ####[address] [place] [address] Eosinophils/100 WBC (Bld) 1.9 % Normal 0.0-8.0 [facility] Comment on above: Order Comment: Order Added by Discern Expert. Performed By: #### 2 192760, 00666912, 3677460, 9638299, 32067630, 0341540 ####[address] [place] [address] Eosinophils/Leukocy [place] Auto (Bld) [Pure # fraction] 0.1 E9/L Normal 0.0-0.5 [facility] Comment on above: Order Comment: Order Added by Discern Expert. Performed By: #### 2 338568, 86708862, 6253577, 3166605, 04919466, 0002029 ####[address] [place] [address] Lymphocytes/100 WBC (Bld) 28.4 % Normal 14.0-50.0 [facility] Comment on above: Order Comment: Order Added by Discern Expert. Performed By: #### 2 862394, 26600409, 2105482, 0229930, 63850968, 5958067 ####[address] [place] [address] Lymphocytes/Leukocy [place] Auto (Bld) [Pure # fraction] 1.5 E9/L Normal 1.0-4.0 [facility] Comment on above: Order Comment: Order Added by Discern Expert. Performed By: #### 2 548167, 43010586, 3118701, 9516947, 36147185, 4453580 ####[address] [address] Monocytes/100 WBC (Bld) 9.3 % Normal 4.0-14.0 [facility] Comment on above: Order Comment: Order Added by Discern Expert. Performed By: #### 2 907673, 45580682, 8331464, 6897931, 21525788, 4193234 ####[address] [address] Monocytes/Leukocyte s Auto (Bld) [Pure # fraction] 0.5 E9/L Normal 0.2-1.0 [facility] Comment on above: Order Comment: Order Added by Discern Expert. Performed By: #### 2 433714, 71646919, 2540176, 1616903, 21936544, 0701474 ####[address] [place] [address] Neutrophils/100 WBC (Bld) 59.8 % Normal 36.0-75.0 [facility] Comment on above: Order Comment: Order Added by Discern Expert. Performed By: #### 2 606355, 68930253, 6839345, 3665304, 27010734, 7330909 ####[address] [address] Neutrophils/Leukocy [place] Auto (Bld) [Pure # fraction] 3.1 E9/L Normal 2.0-7.5 [facility] Comment on above: Order Comment: Order Added by Discern Expert. Performed By: #### 2 269859, 62114574, 4033560, 4437688, 70815982, 0464249 ####[facility] [address] [place] [address] BLOOD BANKOrdered By: Keturah Bar on 12-02-2022 ABO/Rh Interp Positive Invalid Interpretation Code [facility] BB Subsection ABSC Gel Interp Negative (12/02/22 1:07 PM) Normal [facility] BB Subsection BMPon 12-02-2022 Creatinine [Mass/Vol] 0.9 mg/dL Normal 0.5-1.3 [facility] Comment on above: Performed By: #### 2 723885, 16803472, 9634863, 7462446, 39171540, 8032667 ####[facility] [address] [place] [address] Urea nitrogen [Mass/Vol] 14 mg/dL Normal 5-21 [facility] Comment on above: Performed By: #### 2 787610, 15979268, 5291560, 6572539, 36398971, 4082139 ####[facility] [address] [place] [address] Urea nitrogen/Creatinine [Mass ratio] 16 No Units Normal 10-20 [facility] Comment on above: Performed By: #### 2 718322, 48993351, 2665205, 9276745, 51719361, 0641586 ####[facility] [address] [place] [address] Anion gap [Moles/Vol] 10 mmol/L Normal 6-16 [facility] Comment on above: Performed By: #### 2 664328, 04426302, 6826654, 5683603, 80137419, 4352160 ####[facility] [address] [place] [address] Calcium [Mass/Vol] 8.9 mg/dL Normal 8.9-11.1 [facility] Comment on above: Performed By: #### 2 563603, 06144048, 3787312, 8388083, 21787726, 7272476 ####[facility] [address] [place] [address] Chloride [Moles/Vol] 98 mmol/L Low 101-111 [facility] Comment on above: Performed By: #### 2 773162, 04742555, 2210547, 1129284, 14987605, 3913518 ####[facility] [address] [place] [address] CO2 [Moles/Vol] 30 mmol/L Normal 21-31 [facility] Comment on above: Performed By: #### 2 452748, 76139025, 1066370, 3660093, 02644570, 2916020 ####[facility] [address] [place] [address] Glucose [Mass/Vol] 137 mg/dL Normal 55-199 [facility] Comment on above: Result Comment: If t his glucose result represents a fasting glucose, interpretation should refer to the following reference range: 55-99 mg/dL Performed By: #### 2 068952, 25503297, 0415257, 0841401, 69393923, 5985917 ####[facility] [address] [place] [address] Potassium [Moles/Vol] 3.6 mmol/L Normal 3.5-5.3 [facility] Comment on above: Performed By: #### 2 649500, 86655526, 8145845, 8389529, 98302712, 7971921 ####[facility] [address] [place] [address] Sodium [Moles/Vol] 134 mmol/L Low 135-145 [facility] Comment on above: Performed By: #### 2 258738, 74316466, 2572806, 0825165, 73363873, 7181480 ####[facility] [address] [place] [id number] Blood Bank ID#on 12-02-2022 BBID# [id number] Invalid Interpretation Code [facility] Comment on above: Performed By: #### 2 646461, 73452940, 37916119, 05310972 ####[address] [address] CBC w/ Auto Diffon Erythrocyte distribution width (RBC) [Ratio] 13.9 % Normal 10.9-14.2 [facility] Comment on above: Performed By: #### 2 730393, 95951885, 8061897, 3118219, 25499665, 1811465 ####[address] [address] Hematocrit (Bld) [Volume fraction] 44.1 % Normal 37.7-49.0 [facility] Comment on above: Performed By: #### 2 098539, 13438383, 0135015, 7099071, 18474296, 1982748 ####[address] [address] Hemoglobin (Bld) [Mass/Vol] 14.5 g/dL Normal 13.5-17.5 [facility] Comment on above: Performed By: #### 2 115926, 61754295, 2639343, 1757197, 77933936, 3530810 ####[address] [address] MCH (RBC) [Entitic mass] 30.7 pg Normal 27.0-34.0 [facility] Comment on above: Performed By: #### 2 168084, 13594980, 4645921, 9979123, 96746558, 6757602 ####[address] [address] MCHC (RBC) [Mass/Vol] 32.9 g/dL Normal 31.4-36.0 [facility] Comment on above: Performed By: #### 2 325876, 19555440, 4265644, 5956695, 65276358, 1417728 ####[facility] [address] [place] [address] MCV (RBC) [Entitic vol] 93.1 fL Normal 80.0-100.0 [facility] Comment on above: Performed By: #### 2 554410, 13431645, 4888782, 8806651, 99036135, 2654144 ####[address] [place] [address] Platelet mean volume (Bld) [Entitic vol] 8.2 fL Normal 6.4-10.8 [facility] Comment on above: Performed By: #### 2 993717, 24850394, 4280317, 1952316, 96541480, 3835317 ####[address] [address] Platelets (Bld) [#/Vol] 135.0 E9/L Low 150.0-500.0 [facility] Comment on above: Performed By: #### 2 744300, 02725823, 4013047, 5833864, 41170974, 5153879 ####[address] [address] RBC (Bld) [#/Vol] 4.7 E12/L Normal 4.3-5.9 [facility] Comment on above: Performed By: #### 2 543069, 92947802, 6357859, 9261561, 07508439, 8155494 ####[address] [place] [address] WBC corrected for nucl RBC Auto (Bld) [#/Vol] 5.2 E9/L Normal 4.0-11.0 [facility] Comment on above: Performed By: #### 2 389094, 60211074, 4536015, 7876465, 75356853, 6664954 ####[address] [place] [address] CHEMISTRYOrdered By: SYSTEM SYSTEM on 04-23-2023 Albumin [Mass/Vol] 3.5 g/dL Normal 3.3 - 5.0 gm/dL [facility] Remisol Albumin/Globulin [Mass ratio] 1.0 {ratio} Low 1.1 - 2.2 [facility] Remisol ALP [Catalytic activity/Vol] 55 [iU]/d Normal 21 - 98 Int._Unit/L [facility] Remisol ALT No additional P-5'-P [Catalytic activity/Vol] 37 [iU]/d Normal 6 - 46 Int._Unit/L [facility] Remisol Anion gap [Moles/Vol] 10 mmol/L Normal 6 - 16 mEq/L [facility] Remisol AST [Catalytic activity/Vol] 44 [iU]/d High 5 - 43 Int._Unit/L [facility] Bilirubin [Mass/Vol] 0.4 mg/dL Normal 0.0 - 1.1 mg/dL [facility] Remisol Bilirubin.direct [Mass/Vol] mg/dL Normal 0.1 - 0.4 mg/dL [facility] Remisol Bilirubin.indirect [Mass or moles/Vol] Unable to Calculate mg/dL Invalid Interpretation Code 0.1 - 0.9 mg/dL [facility]isol Calcium [Mass/Vol] 8.9 mg/dL Normal 8.9 - 11.1 mg/dL [facility] Chloride [Moles/Vol] 98 mmol/L Low 101 - 111 mmol/L [facility] CO2 [Moles/Vol] 30 mmol/L Normal 21 - 31 mmol/L [facility] Creatinine [Mass/Vol] 0.9 mg/dL Normal 0.5 - 1.3 mg/dL [facility] Remisol GFR/1.73 sq M.predicted among blacks MDRD (S/P/Bld) [Vol rate/Area] mL/min/1.73 m2 Normal >=59mL/min/1.73 m2 [facility] Chem S GFR/1.73 sq M.predicted among non-blacks MDRD (S/P/Bld) [Vol rate/Area] mL/min/1.73 m2 Normal >=59mL/min/1.73 m2 [facility] Chem S Globulin (S) [Mass/Vol] 3.5 g/dL Normal 1.4 - 4.0 gm/dL [facility] Remisol Glucose [Mass/Vol] 137 mg/dL Normal 55 - 199 mg/dL [facility] Remisol Potassium [Moles/Vol] 3.6 mmol/L Normal 3.5 - 5.3 mmol/L [facility] Remisol Protein [Mass/Vol] 7.0 g/dL Normal 6.0 - 7.8 gm/dL [facility] Remisol Sodium [Moles/Vol] 134 mmol/L Low 135 - 145 mmol/L [facility] Urea nitrogen [Mass/Vol] 14 mg/dL Normal 5 - 21 mg/dL [facility] Remisol Urea nitrogen/Creatinine [Mass ratio] 16 mg/mg Normal 10 - 20 [facility] Remisol COAGULATIONOrdered By: Brandie Sams on 12-02-2022 aPTT Coag (PPP) [Time] 32.2 s Normal 25.1 - 36.5 second(s) [facility] Auto Coag INR Coag (PPP) [Relative time] 1.1 {INR} Invalid Interpretation Code [facility] Auto Coag PT Coag (PPP) [Time] 11.8 s Normal 9.4 - 12.5 second(s) [facility] Auto Coag Consent for Treatmenton 11-11 Consent for Treatment [id number] D:127 Normal [facility] Discharge Instructionson Discharge Instructions [id number] :127 Normal [facility] ED Clinical Summaryon 2022 ED Clinical Summary Normal [facility] ED Note-Physicianon 12-03-19 ED Note-Physician Normal [facility] Comment on above: Result Comment: Elec tronically Signed By: Severo Mcnair PA-C\.br\Date and Time Signed: 12/02/22 16:04 EDT\.br\Electronically Co-Signed By: Arturo Alvarez M.D.\.br\Date and Time Co-Signed: 12/02/22 18:18 EDT ED Patient Education Noteon 12-02-2022 ED Patient Education Note Normal [facility] ED Patient Summaryon 023 ED Patient Summary Normal [facility] HEMATOLOGYOrdered By: SYSTEM SYSTEM on 12-02-2022 Basophils/100 WBC (Bld) 0.6 % Normal 0.0 - 2.0 % [facility] HemeAutoSS Basophils/Leukocyte s Auto (Bld) [Pure # fraction] 0.0 E9/L Normal 0.0 - 0.2 E9/L [facility] HemeAutoSS Eosinophils/100 WBC (Bld) 1.9 % Normal 0.0 - 8.0 % [facility] HemeAutoSS Eosinophils/Leukocy [place] Auto (Bld) [Pure # fraction] 0.1 E9/L Normal 0.0 - 0.5 E9/L [facility] HemeAutoSS Lymphocytes/100 WBC (Bld) 28.4 % Normal 14.0 - 50.0 % [facility] HemeAutoSS Lymphocytes/Leukocy [place] Auto (Bld) [Pure # fraction] 1.5 E9/L Normal 1.0 - 4.0 E9/L [facility] HemeAutoSS Monocytes/100 WBC (Bld) 9.3 % Normal 4.0 - 14.0 % [facility] HemeAutoSS Monocytes/Leukocyte s Auto (Bld) [Pure # fraction] 0.5 E9/L Normal 0.2 - 1.0 E9/L [facility] HemeAutoSS Neutrophils/100 WBC (Bld) 59.8 % Normal 36.0 - 75.0 % [facility] HemeAutoSS Neutrophils/Leukocy [place] Auto (Bld) [Pure # fraction] 3.1 E9/L Normal 2.0 - 7.5 E9/L [facility] HemeAutoSS HEMATOLOGYOrdered By: Veronika Sams on 12-02-2022 Erythrocyte distribution width (RBC) [Ratio] 13.9 % Normal 10.9 - 14.2 % [facility] HemeAutoSS Hematocrit (Bld) [Volume fraction] 44.1 % Normal 37.7 - 49.0 % [facility] HemeAutoSS Hemoglobin (Bld) [Mass/Vol] 14.5 g/dL Normal 13.5 - 17.5 gm/dL [facility] HemeAutoSS MCH (RBC) [Entitic mass] 30.7 pg Normal 27.0 - 34.0 pg [facility] HemeAutoSS MCHC (RBC) [Mass/Vol] 32.9 g/dL Normal 31.4 - 36.0 gm/dL [facility] HemeAutoSS MCV (RBC) [Entitic vol] 93.1 fL Normal 80.0 - 100.0 fL [facility] HemeAutoSS Platelet mean volume (Bld) [Entitic vol] 8.2 fL Normal 6.4 - 10.8 fL [facility] HemeAutoSS Platelets (Bld) [#/Vol] 135.0 E9/L Low 150.0 - 500.0 E9/L [facility] HemeAutoSS RBC (Bld) [#/Vol] 4.7 E12/L Normal 4.3 - 5.9 E12/L [facility] HemeAutoSS WBC corrected for nucl RBC Auto (Bld) [#/Vol] 5.2 E9/L Normal 4.0 - 11.0 E9/L [facility] HemeAutoSS Hep Func Panelon 12-02-2022 Bilirubin.indirect [Mass or moles/Vol] UTC Abnormal 0.1-0.9 [facility] Comment on above: Result Comment: Resu lt verified by Discern Rule. Performed result UTC (Unable to Calculate) was sent as an Alpha code due the inability to calculate a valid numeric value. Performed By: #### 2 880988, 77716801, 9085436, 7799206, 56039561, 3371356 ####[facility] [address] [place] [address] Albumin [Mass/Vol] 3.5 g/dL Normal 3.3-5.0 [facility] Comment on above: Performed By: #### 2 609222, 32060138, 1723848, 0159790, 65794023, 3537328 ####[facility] [address] [place] [address] Albumin/Globulin (S) [Mass conc ratio] 1.0 Low 1.1-2.2 [facility] Comment on above: Performed By: #### 2 687177, 21695753, 5063189, 5353943, 33447128, 3626909 ####[facility] [address] [place] [address] ALP [Catalytic activity/Vol] 55 Int._Unit/L Normal 21-98 [facility] Comment on above: Performed By: #### 2 251871, 29234928, 0201347, 9332094, 23283431, 2527859 ####[facility] [address] [place] [address] ALT No additional P-5'-P [Catalytic activity/Vol] 37 Int._Unit/L Normal 6-46 [facility] Comment on above: Performed By: #### 2 068783, 91815874, 2529201, 3583546, 71294404, 8834383 ####[address] [place] [address] AST [Catalytic activity/Vol] 44 Int._Unit/L High 5-43 [facility] Comment on above: Performed By: #### 2 653390, 04675376, 6564677, 8641088, 72906391, 0720584 ####[address] [address] Bilirubin [Mass/Vol] 0.4 mg/dL Normal 0.0-1.1 [facility] Comment on above: Performed By: #### 2 499558, 47339182, 5740516, 1566932, 10030071, 5300347 ####[address] [address] Bilirubin.direct [Mass/Vol] mg/dL Normal 0.1-0.4 [facility] Comment on above: Performed By: #### 2 090761, 19264574, 0589477, 0213725, 58126364, 0300478 ####[address] [address] Globulin (S) [Mass/Vol] 3.5 g/dL Normal 1.4-4.0 [facility] Comment on above: Performed By: #### 2 838477, 77456629, 5658725, 8120293, 32580723, 4342912 ####[address] [place] [address] Protein [Mass/Vol] 7.0 g/dL Normal 6.0-7.8 [facility] Comment on above: Performed By: #### 2 615456, 00823316, 9827789, 9810625, 12741271, 2270375 ####[facility] [address] [place] [address] MICRO OTHER TESTSOrdered By: Kelly Laucurly on 12-02-2022 Occult Bld Stl Positive *ABN* (12/02/22 3:01 PM) Invalid Interpretation Code Negative [facility] Man Sero PT & PTTon 12-02-2022 aPTT Coag (PPP) [Time] 32.2 second(s) Normal 25.1-36.5 [facility] Comment on above: Result Comment: Para meter 15 days - 4 weeks 1 - 5 months 6 - 11 months 1 - 5 years 6 - 10 years 11 - 17 years PTT Mean: 35.4 (27.6-45.6) Mean: 33.5 (24.8-40.7) Mean: 32.4 (25.1-40.7) Mean: 31.6 (24.0-39.2) Mean: 31.6 (26.9-38.7) Mean: 31.0 (24.6-38.4) Pediatric Reference ranges were obtained from a study by Alin Swain et al. prepared from 1437 samples obtained at 7 different centers using the same coagulation reagent and instrumentation as [facility]. Currently there are no coagulation studies available worldwide for children to 14 days, and no normal ranges. Heparin therapeutic range (represented by Anti-Factor Xa activity of 0.2 - 0.4 U/mL) corresponds to PTT of 56.6 - 109.0 sec. Performed By: #### 2 250310, 65085162, 7098643, 3721260, 41083885, 5810629 ####[facility] [address] [place], [place] [address] INR Coag (PPP) [Relative time] 1.1 {INR} Invalid Interpretation Code [facility] Comment on above: Result Comment: INR results are specifically intended to assess patients stabilized on long-term Anticoagulation therapy suggested INR?s ?Less Intensive Anticoagulation? 2.0 ? 3.0Conventional Range 3.0 ? 4.5 Performed By: #### 2 [id number], [id number], 5147206, 2751748, 73081868, 0308959 ####[facility] [address] [place] [address] PT Coag (PPP) [Time] 11.8 second(s) Normal 9.4-12.5 [facility] Comment on above: Result Comment: 15 d ays - 4 weeks 1 - 5 months 6 -11 months 1 ? 5 years 6 ? 10 years 11 -17 years Mean: 11.2 (9.5 ? 12.6) Mean: 11.0 (9.7 ? 12.8) Mean: 11.0 (9.8 ? 13.0) Mean: 11.3 (9.9 ? 13.4) Mean: 11.7 (10.0 ? 14.6) Mean: 11.8 (10.0 - 14.1) Pediatric Reference ranges were obtained from a study by manolo Sahu al. prepared from 1437 samples obtained at 7 different centers using the same coagulation reagent and instrumentation as [facility]. Currently there are no coagulation studies available worldwide for children to 14 days, and no normal ranges. Performed By: #### 2 251151, 17274633, 7106984, 6519886, 71422348, 3323693 ####[facility] [address] [place] [address] Stl Oclt Bldon 12-02-2022 Occult Bld Stl Positive Abnormal Negative [facility] Comment on above: Performed By: #### 2 [id number] ####[facility] [address] [place] [address] eGFRon 12-02-2022 GFR/1.73 sq M.predicted among blacks MDRD (S/P/Bld) [Vol rate/Area] mL/min/{1.73_m2} Normal >=59 [facility] Comment on above: Order Comment: Order added by Discern Expert. Result Comment: eGFR is race adjusted. AA=. Performed By: #### 2 520383, 90930077, 3535693, 1146469, 58225443, 7100288 ####[facility] [address] [place] [address] GFR/1.73 sq M.predicted among non-blacks MDRD (S/P/Bld) [Vol rate/Area] mL/min/{1.73_m2} Normal >=59 [facility] Comment on above: Order Comment: Order added by Discern Expert. Result Comment: Architectural Practice Manager cristo kidney disease could be indicated at eGFR's of less than 60 mL/min/1.73m2. Kidney failure is indicated at less than 15 mL/min/1.73m2. Performed By: #### 2 427226, 25247387, 5694174, 9152511, 45104799, 5201750 ####[facility] [address] [place] [address] Coding Summary.on 11-30-2022 Coding Summary. [facility] Consent for Treatmenton 11-11 Consent for Treatment [id number]#1.00CD :127 [facility] Consultation Noteon 11-30-19 Consultation Note Normal [facility] Comment on above: Result Comment: Elec tronically Signed By: Georgi ESPINAL, Pawan\.br\Date and Time Signed: 11/29/22 10:31 EDT Office/Clinic Note-Physician on 11-29-2022 Office/Clinic Note-Physician [id number]#1.00 CD:127 Normal [facility] Patient Correspondenceon Patient Correspondence [id number]#1.00 CD:127 Normal [facility] Patient History Officeon Patient History Office [id number]#1.00 CD:127 [facility] Transfer Inon 11-26-2022 Transfer In [id number]#1.00C D:127 [facility] Coding Summary.on 11-24-2022 Coding Summary. Normal [facility] US Aorta Completeon 11-21-19 US Aorta Complete Normal [facility] Consent for Treatmenton 11-10 Consent for Treatment [id number]#1.00C D:127 [facility] Consultation Noteon 11-18-19 Consultation Note [id number]#1.00C D:127 [facility] Auth for Release of Medical Recordson 11-16-2022 Auth for Release of Medical Records [id number]#1.00C D:127 [facility] CNOVon 11-14-2022 CNOV Office Visit (KRYSTIN ) JAS GONZALEZ ([id number]) 1950 M DEF Date Time Provider Department 11/14/22 1:30 PM JUMA MONK During your visit today, we recorded the following information about you: Pulse Blood pressure Weight Height 73/minute 121/63 151.5 kg 1.854 m Juma Monk MD 11/16/2022 9:45 AM Signed [facility] Date of Service: 11/14/2022 Patient: Jas Gonzalez Medical Record: [id number] Primary Care Physician: No primary care provider on file. Referring Provider: THAO DUNCAN(HISTORICAL) Last Rheumatology visit: 11/14/2022 (with Juma Monk) Chief complaint: Consult (Dx oa. /) Consultation requested by Thao Duncan for an opinion regarding evaluate for back pain. My final recommendations will be communicated back to the requesting physician by way of shared Medical record or letter to requesting physician via US mail. History of Present Illness Jas Gonzalez is a 72 year old male with medical history of Mccarty's esophagus, GERD, obesity, diabetes mellitus, hiatal hernia, history of PE in 2019, BPH, BCC, SCC, nephrolithiasis, rib fracture after fall, presents on 11/14/2022 for an in-person visit for evaluation of Consult (Dx oa. /). HISTORY OF PRESENT ILLNESS Patient reports Right buttock pain that started about 6 months ago, can hardly move due to the pain. Denies any trauma or unusual activity. Pain is Triggered by certain movt, lying in bed makes it worse so sleeps in the chair. Had some back pain on and off since injury in 1970s while lifting weight, had slipped disc has been good and bad on and off. Reports that right buttock pain radiates to right thigh and leg with numbness on the sides of thigh and leg Pain is radiating to legs on and off Seen by pain mgt- had MRI and X rays - told to have arthritis?, patient came with disc, report not available in care everywhere. He had cortisone injection in his back that has helped some. PCP recommended rheumatology evaluation Pain is worst with movement and walking, EMS- none No joint swelling Denies history of inflammatory eye disease, inflammatory bowel disease, psoriasis, history of kidney disease/biopsy, peptic ulcer disease, pleural/pericardial effusion, CHF, CAD, CVA. Patient-Entered Data PAIN EVALUATION No data found in the last 1 encounters. PROMIS Assessments No flowsheet data found. RAPID 3 Torrez Activities of Daily Living No Data Dress self? - Get in and out of bed? - Walk outdoors? - Wash and dry body? - Get in and out of car? - RAPID 3 Disease Activity Weighed Score Levels: 0 - 1: Near Remission 1.3 - 2.0: Low Severity 2.3 - 4.0: Moderate Severity 4.3 - 10.0: High Severity No flowsheet data found. Review of Systems ROS RHEUMATOLOGY Fever: Denies Change in weight: Gained due to not being able to move Lymphadenopathy: Denies Mucosal ulcers: Denies Skin rash: Denies Photosensitive rash: Denies Alopecia: Denies Chest Pain: Denies Dyspnea: With activities since PE, also relates to weight gain Cough : Clear mucus Difficulty swallowing: Denies Nausea/vomiting: Denies Heartburn: Denies Abdominal Pain: Denies Diarrhea/constipation :Denies Blood in stool : Denies Dysuria/hematuria: Denies Headache: Denies change in vision: Denies Raynaud's: Denies Sicca: Denies Past Medical History PAST MEDICAL HISTORY Diagnosis Date Cancer (HCC) Diabetes (HCC) Past Surgical History No past surgical history on file. Allergy ALLERGIES Allergen Reactions Z Pack [Azithromyci* Hives sensitivity Family History Sister has RA The patient denies family history of SLE, Sarcoidosis, Scleroderma, IBD or Psoriasis. No family history on file. Social History Social History Tobacco Use Smoking status: Never Smokeless tobacco: Never Substance Use Topics Alcohol use: Yes Comment: occasional Drug use: Never Current Medications Current Outpatient Medications Medication Sig aspirin 81 mg chewable tablet Take by mouth. pioglitazone (ACTOS) 45 mg tablet famotidine (PEPCID) 40 mg tablet Take 40 mg by mouth daily at bedtime. fluticasone (FLONASE) 50 mcg/actuation nasal spray Use in the nose. Fluorouracil 5 % cream apply to face and ears lisinopril (ZESTRIL) 10 mg tablet Take by mouth. meloxicam (MOBIC) 7.5 mg tablet Take 7.5 mg by mouth once daily. metFORMIN (GLUCOPHAGE) 1,000 mg tablet Take 1,000 mg by mouth once daily. omeprazole (PRILOSEC) 40 mg capsule Take 40 mg by mouth once daily. tiZANidine (ZANAFLEX) 2 mg tablet Take by mouth. No current facility-administered medications for this visit. Labs CBC Latest Ref Rng AND Units 04/09/2022 WBC 3.70 - 11.00 k/uL 8.48 HEMOGLOBIN 13.0 - 17.0 g/dL 15.1 HEMATOCRIT 39.0 - 51.0 % 46.8 PLATELETS 150 - 400 k/uL 165 CMP Latest Ref Rng AND Units 04/09/2022 SODIUM 136 - 144 mmol/L (more content not included)... Normal [facility] Family Medicine Office/Clini c Noteon 11-08-2022 Family Medicine Office/Clinic Note Normal [facility] Comment on above: Result Comment: Elec tronically Signed By: Mt GOODEN DO, FAAFP\kelvin\Date and Time Signed: 11/08/22 10:50 EDT Patient Educationon 11-09-19 Patient Education Normal [facility] Coding Summary.on 10-29-2022 Coding Summary. Normal [facility] CHEMISTRYOrdered By: Lab ROP User on 10-24-2022 Glucose [Mass/Vol] 138 mg/dL High 55 - 99 mg/dL FT C POC Subsection POC Device SN [id number] Invalid Interpretation Code [facility] POC Subsection POC User ID [id number] Invalid Interpretation Code [facility] POC Subsection POC Username LESLIE AUGUSTINE Invalid Interpretation Code [facility] POC Subsection Capillary Glucose POCon 10-10 Glucose [Mass/Vol] 138 mg/dL High 55-99 [facility] Comment on above: Performed By: #### 2 [id number] ####[facility] [address] [place] [address] Consent for Procedure/Surger yon 10-24-2022 Consent for Procedure/Surgery [id number]#1.00 CD:127 [facility] Consent for Treatmenton 10-10 Consent for Treatment [id number]#1.00C D:127 Normal [facility] Consultation Noteon 10-25-19 23 Consultation Note [id number]#1.00C D:127 Normal [facility] Consultation Note [id number]#1.00C D:127 [facility] Discharge Instructionson Discharge Instructions [id number]#1.00 CD:127 Normal [facility] IntraOperative Documentson 0 10-24-2022 IntraOperative Documents [id number]#1.00 CD:127 [facility] IntraOperative Documents [id number]#1.00 CD:127 [facility] Main OR Intraoperative Recor don 10-24-2022 Main OR Intraoperative Record [facility] Main OR Preoperative Recordo n 10-24-2022 Main OR Preoperative Record [facility] Operative Reporton Operative Report [facility] Comment on above: Result Comment: Elec tronically Signed By: Pawan Laureano MD\.br\Date and Time Signed: 10/24/22 19:25 EDT Patient Correspondenceon Patient Correspondence [id number]#1.00CD :127 [facility] Coding Summary.on 10-01-2022 Coding Summary. [facility] Consultation Noteon 09-29-19 Consultation Note [facility] Comment on above: Result Comment: Elec tronically Signed By: Pawan Laureano MD\.br\Date and Time Signed: 09/29/22 20:14 EST Consent for Treatmenton 09-12 Consent for Treatment [id number]#1.00C D:127 [facility] Office/Clinic Note-Physician on 09-27-2022 Office/Clinic Note-Physician [id number]#1.00C D:127 [facility] Patient Correspondenceon Patient Correspondence [id number]#1.00C D:127 [facility] Patient History Officeon Patient History Office [id number]#1.00C D:127 [facility] Physician Orderon 09-27-2022 Physician Order [id number]#1.00C D:127 [facility] Consent for Treatmenton Consent for Treatment [id number]#1.00C D:127 [facility] Auth for Release of Medical Recordson 09-17-2022 Auth for Release of Medical Records [id number]#1.00C D:127 [facility] Ambulatory Visit Summaryon 09-14-2022 Ambulatory Visit Summary Normal [address], [place] [address]- \.br\ You Need to Schedule the Following Appointments\.br\ Follow Up with Perla LEE, BEATRIZ Oneil PED When: Within 1 month, only if needed\.br\ Comments:\.br\ 40 mins\.br\ Where:\.br\ [address], [address]\.br\ [place] [address]\.br\ Medications\.br\ What How Much When Why Instructions\.br\ Unchanged acetaminophen (Tylenol 325 mg Tab) 1 Tablets By Mouth Once\.br\ Unchanged aspirin (aspirin 81 mg Chew Tab) 1 Tablets By Mouth Every day Pulmonary embolism on right\.br\ Unchanged famotidine (famotidine 40 mg Tab) 1 Tablets By Mouth Once a day (at bedtime)\.br\ Unchanged lisinopril (lisinopril 10 mg Tab) 1 Tablets By Mouth Every day\.br\ Unchanged meloxicam (meloxicam 7.5 mg Tab) 1 Tablets By Mouth Every day Arthritis, lumbar spine\.br\ Unchanged metformin (metformin 1000 mg Tab) 1 Tablets By Mouth Every day\.br\ Unchanged omeprazole (omeprazole 40 mg Cap-DR) 1 Capsules By Mouth Every day Gastroesophageal reflux disease with hiatal hernia\.br\ Unchanged pioglitazone (Actos 15 mg Tab) 1 Tablets By Mouth Every day\.br\ Unchanged sitagliptin (Januvia 100 mg Tab) 1 Tablets By Mouth Every day\.br\ Unchanged tizanidine (tiZANidine 2 mg Tab) 2 Milligram By Mouth 2 times a day as needed for Spasm\.br\ Allergies\.br\ Zithromax Z-Davey (hives/welts)\.br \ Problems\.br\ Ongoing - Any problem that you are currently receiving treatment for.\.br\ AAA (abdominal aortic aneurysm)\.br\ Arthritis, lumbar spine\.br\ Mccarty's esophagus with dysplasia\.br\ BPH associated with nocturia\.br\ Dietary counseling\.br\ Essential hypertension\.br\ Gastroesophageal reflux disease with hiatal hernia\.br\ High serum protein level\.br\ senior care current use of oral hypoglycemic drug\.br\ Numbness of left hand\.br\ Personal history of pulmonary embolism\.br\ Right shoulder pain\.br\ Sacroiliitis\.br\ Screening PSA (prostate specific antigen)\.br\ Somatic dysfunction of lower extremities\.br\ Somatic dysfunction of lumbar region\.br\ Somatic dysfunction of sacral spine\.br\ Spasm of lumbar paraspinous muscle\.br\ Type 2 diabetes mellitus with morbid obesity\.br\ Wears hearing aid in both ears\.br\ Historical - Any problem that you are no longer receiving treatment for.\.br\ Costochondritis\. 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 Normal [facility] Coding Summary. Normal [facility] Auto Diffon 09-10-2022 Basophils/100 WBC (Bld) 0.8 % Normal 0.0-2.0 [facility] Comment on above: Order Comment: Order Added by Discern Expert. Performed By: #### 1 7537647, 02100850, 2522101, 1440926, 7503839, 1354725, 7735489 ####[facility] [address] [place] [address] Basophils/Leukocyte s Auto (Bld) [Pure # fraction] 0.1 E9/L Normal 0.0-0.2 [facility] Comment on above: Order Comment: Order Added by Discern Expert. Performed By: #### 1 4728607, 11049826, 5792413, 2362307, 7059694, 5452454, 8784362 ####[address] [place] [address] Eosinophils/100 WBC (Bld) 1.7 % Normal 0.0-8.0 [facility] Comment on above: Order Comment: Order Added by Discern Expert. Performed By: #### 1 5757567, 33613994, 3009275, 0683651, 0539203, 3611486, 0649389 ####[address] [place] [address] Eosinophils/Leukocy camden Auto (Bld) [Pure # fraction] 0.1 E9/L Normal 0.0-0.5 [facility] Comment on above: Order Comment: Order Added by Discern Expert. Performed By: #### 1 4085056, 63531004, 9732902, 8090834, 9417860, 8612485, 1698940 ####[address] [address] Lymphocytes/100 WBC (Bld) 34.3 % Normal 14.0-50.0 [facility] Comment on above: Order Comment: Order Added by Discern Expert. Performed By: #### 1 8995117, 29166395, 0852197, 9580049, 4872713, 4803478, 0453540 ####[address] [address] Lymphocytes/Leukocy camden Auto (Bld) [Pure # fraction] 2.2 E9/L Normal 1.0-4.0 [facility] Comment on above: Order Comment: Order Added by Discern Expert. Performed By: #### 1 4947450, 91184672, 3871729, 1109275, 4422573, 8871424, 8482907 ####[address] [place] [address] Monocytes/100 WBC (Bld) 7.4 % Normal 4.0-14.0 [facility] Comment on above: Order Comment: Order Added by Discern Expert. Performed By: #### 1 0996534, 17972032, 6357348, 6586334, 7914590, 0132462, 9302828 ####[facility] [address] [place] [address] Monocytes/Leukocyte s Auto (Bld) [Pure # fraction] 0.5 E9/L Normal 0.2-1.0 [facility] Comment on above: Order Comment: Order Added by Discern Expert. Performed By: #### 1 1653579, 83387295, 1629059, 8355371, 4380794, 3805397, 2444559 ####[facility] [address] [place] [address] Neutrophils/100 WBC (Bld) 55.8 % Normal 36.0-75.0 [facility] Comment on above: Order Comment: Order Added by Discern Expert. Performed By: #### 1 9843456, 37667121, 3226229, 5371970, 8473725, 5161551, 3090138 ####[address] [place] [address] Neutrophils/Leukocy camden Auto (Bld) [Pure # fraction] 3.6 E9/L Normal 2.0-7.5 [facility] Comment on above: Order Comment: Order Added by Discern Expert. Performed By: #### 1 9314680, 16355719, 5849940, 6889582, 2716811, 5071416, 6255516 ####[facility] [address] [place] [address] BMPon 09-10-2022 Anion gap [Moles/Vol] 11 mmol/L Normal 6-16 [facility] Comment on above: Performed By: #### 1 0932681, 57585827, 1183549, 1697588, 0481044, 8781799, 3218144 ####[facility] [address] [place] [address] Calcium [Mass/Vol] 9.4 mg/dL Normal 8.9-11.1 [facility] Comment on above: Performed By: #### 1 3015264, 54844298, 8274244, 2129957, 7588729, 6438191, 4852414 ####[facility] [address] [place] [address] Chloride [Moles/Vol] 101 mmol/L Normal 101-111 [facility] Comment on above: Performed By: #### 1 3139726, 81593180, 0811569, 0824179, 0272916, 8617675, 3772885 ####[facility] [address] [place] [address] CO2 [Moles/Vol] 30 mmol/L Normal 21-31 [facility] Comment on above: Performed By: #### 1 6135329, 37825577, 5067269, 9032917, 4881125, 8042030, 8134737 ####[facility] [address] [place] [address] Creatinine [Mass/Vol] 0.9 mg/dL Normal 0.5-1.3 [facility] Comment on above: Performed By: #### 1 3933327, 01427325, 4018500, 6552958, 5663054, 3334854, 5692863 ####[facility] [address] [place] [address] Glucose [Mass/Vol] 119 mg/dL Normal 55-199 [facility] Comment on above: Result Comment: If t his glucose result represents a fasting glucose, interpretation should refer to the following reference range: 55-99 mg/dL Performed By: #### 1 9382950, 54430560, 8264262, 4331022, 7421427, 4461522, 1339250 ####[facility] [address] [place] [address] Potassium [Moles/Vol] 4.0 mmol/L Normal 3.5-5.3 [facility] Comment on above: Performed By: #### 1 1871430, 97903731, 6084523, 1148305, 2840087, 2348098, 2609131 ####[facility] [address] [place] [address] Sodium [Moles/Vol] 138 mmol/L Normal 135-145 [facility] Comment on above: Performed By: #### 1 8760924, 64772376, 1324734, 7587085, 9423670, 8295824, 3259653 ####[facility] [address] [place] [address] Urea nitrogen [Mass/Vol] 17 mg/dL Normal 5-21 [facility] Comment on above: Performed By: #### 1 9897863, 92637107, 1142662, 5008354, 6673986, 8193714, 1261651 ####[facility] [address] [place] [address] Urea nitrogen/Creatinine [Mass ratio] 19 No Units Normal 10-20 [facility] Comment on above: Performed By: #### 1 9669881, 61794669, 2838887, 0658835, 4303286, 3348689, 5019214 ####[facility] [address] [place] [address] CBC w/ Auto Diffon 3 Erythrocyte distribution width (RBC) [Ratio] 14.5 % High 10.9-14.2 [facility] Comment on above: Performed By: #### 1 3337842, 09031271, 8354017, 4895553, 1889319, 2636443, 2954190 ####[facility] [address] [place] [address] Hematocrit (Bld) [Volume fraction] 45.0 % Normal 37.7-49.0 [facility] Comment on above: Performed By: #### 1 4238736, 17598247, 0247587, 4575253, 9720916, 6055054, 5948082 ####[facility] [address] [place] [address] Hemoglobin (Bld) [Mass/Vol] 14.6 g/dL Normal 13.5-17.5 [facility] Comment on above: Performed By: #### 1 8973491, 19487703, 7885367, 0152393, 9618932, 0763899, 3753433 ####[facility] [address] [place] [address] MCH (RBC) [Entitic mass] 30.8 pg Normal 27.0-34.0 [facility] Comment on above: Performed By: #### 1 6649956, 05220209, 5574050, 4033249, 0404880, 5519501, 8530751 ####[facility] [address] [place] [address] MCHC (RBC) [Mass/Vol] 32.5 g/dL Normal 31.4-36.0 [facility] Comment on above: Performed By: #### 1 0544697, 01964823, 0571123, 2467221, 2259774, 0210465, 6947531 ####[address] [address] MCV (RBC) [Entitic vol] 94.6 fL Normal 80.0-100.0 [facility] Comment on above: Performed By: #### 1 8199397, 61430028, 9559383, 6754716, 4938661, 4644344, 2953603 ####[address] [address] Platelet mean volume (Bld) [Entitic vol] 8.3 fL Normal 6.4-10.8 [facility] Comment on above: Performed By: #### 1 7625340, 23945219, 9066452, 9601189, 3251114, 4614775, 3108164 ####[address] [address] Platelets (Bld) [#/Vol] 159.0 E9/L Normal 150.0-500.0 [facility] Comment on above: Performed By: #### 1 2606102, 99159738, 0043183, 5841573, 8634011, 7009800, 6972265 ####[address] [address] RBC (Bld) [#/Vol] 4.8 E12/L Normal 4.3-5.9 [facility] Comment on above: Performed By: #### 1 9211855, 84947570, 2318604, 6779349, 4413783, 4886684, 9136971 ####[facility] [address] [place] [address] WBC corrected for nucl RBC Auto (Bld) [#/Vol] 6.4 E9/L Normal 4.0-11.0 [facility] Comment on above: Performed By: #### 1 4000058, 51317910, 8569420, 9515360, 4606718, 9534414, 6529864 ####[facility] [address] [place] [address] CHEMISTRYOrdered By: Elma Person on 09-10-2022 Albumin DL <= 20 mg/L (U) [Mass/Vol] 11.6 microgram/mL Normal 0.0 - 19.0 mcg/mL [facility] Remisol CHEMISTRYOrdered By: SYSTEM SYSTEM on 09-10-2022 Albumin [Mass/Vol] 4.1 g/dL Normal 3.3 - 5.0 gm/dL [facility] Remisol Albumin/Globulin [Mass ratio] 1.1 {ratio} Normal 1.1 - 2.2 [facility] Remisol ALP [Catalytic activity/Vol] 56 [iU]/d Normal 21 - 98 Int._Unit/L [facility] Remisol ALT No additional P-5'-P [Catalytic activity/Vol] 37 [iU]/d Normal 6 - 46 Int._Unit/L [facility] Remisol Anion gap [Moles/Vol] 11 mmol/L Normal 6 - 16 mEq/L [facility] Remisol AST [Catalytic activity/Vol] 39 [iU]/d Normal 5 - 43 Int._Unit/L [facility]isol Bilirubin [Mass/Vol] 0.6 mg/dL Normal 0.0 - 1.1 mg/dL [facility] Bilirubin.direct [Mass/Vol] mg/dL Normal 0.1 - 0.4 mg/dL [facility] Bilirubin.indirect [Mass or moles/Vol] Unable to Calculate mg/dL Invalid Interpretation Code 0.1 - 0.9 mg/dL [facility] Calcium [Mass/Vol] 9.4 mg/dL Normal 8.9 - 11.1 mg/dL [facility] Chloride [Moles/Vol] 101 mmol/L Normal 101 - 111 mmol/L [facility] Cholesterol [Mass/Vol] 209 mg/dL High 120 - 200 mg/dL [facility] Cholesterol in HDL [Mass/Vol] 42 mg/dL Invalid Interpretation Code [facility] Cholesterol in LDL [Mass/Vol] 144 mg/dL High <=129mg/dL [facility] Cholesterol in VLDL [Mass/Vol] 24 mg/dL Normal 7 - 40 mg/dL [facility] CO2 [Moles/Vol] 30 mmol/L Normal 21 - 31 mmol/L [facility] Creatinine [Mass/Vol] 0.9 mg/dL Normal 0.5 - 1.3 mg/dL [facility] GFR/1.73 sq M.predicted among blacks MDRD (S/P/Bld) [Vol rate/Area] mL/min/1.73 m2 Normal >=59mL/min/1.73 m2 [facility] Chem S GFR/1.73 sq M.predicted among non-blacks MDRD (S/P/Bld) [Vol rate/Area] mL/min/1.73 m2 Normal >=59mL/min/1.73 m2 [facility] Chem S Globulin (S) [Mass/Vol] 3.8 g/dL Normal 1.4 - 4.0 gm/dL [facility] Glucose [Mass/Vol] 119 mg/dL Normal 55 - 199 mg/dL [facility] Potassium [Moles/Vol] 4.0 mmol/L Normal 3.5 - 5.3 mmol/L [facility] Prostate specific Ag [Mass/Vol] 0.9 ng/mL Normal 0.1 - 3.5 ng/mL [facility] Protein [Mass/Vol] 7.9 g/dL High 6.0 - 7.8 gm/dL [facility] Sodium [Moles/Vol] 138 mmol/L Normal 135 - 145 mmol/L [facility] Triglyceride [Mass/Vol] 120 mg/dL Normal <=149mg/dL [facility] Urea nitrogen [Mass/Vol] 17 mg/dL Normal 5 - 21 mg/dL [facility] Urea nitrogen/Creatinine [Mass ratio] 19 mg/mg Normal 10 - 20 [facility] CHEMISTRYOrdered By: Alia Heart on 09-10-2022 HbA1c (Bld) [Mass fraction] 6.3 % High <=5.9% [facility] ChemAutoSS Consent for Treatmenton 08-14 Consent for Treatment [id number]#1.00C D:127 Normal [facility] Consent for Treatment [id number]#1.00C D:127 Normal [facility] HEMATOLOGYOrdered By: SYSTEM SYSTEM on 09-10-2022 Basophils/100 WBC (Bld) 0.8 % Normal 0.0 - 2.0 % [facility] HemeAutoSS Basophils/Leukocyte s Auto (Bld) [Pure # fraction] 0.1 E9/L Normal 0.0 - 0.2 E9/L [facility] HemeAutoSS Eosinophils/100 WBC (Bld) 1.7 % Normal 0.0 - 8.0 % [facility] HemeAutoSS Eosinophils/Leukocy [place] Auto (Bld) [Pure # fraction] 0.1 E9/L Normal 0.0 - 0.5 E9/L [facility] HemeAutoSS Lymphocytes/100 WBC (Bld) 34.3 % Normal 14.0 - 50.0 % [facility] HemeAutoSS Lymphocytes/Leukocy [place] Auto (Bld) [Pure # fraction] 2.2 E9/L Normal 1.0 - 4.0 E9/L [facility] HemeAutoSS Monocytes/100 WBC (Bld) 7.4 % Normal 4.0 - 14.0 % [facility] HemeAutoSS Monocytes/Leukocyte s Auto (Bld) [Pure # fraction] 0.5 E9/L Normal 0.2 - 1.0 E9/L [facility] HemeAutoSS Neutrophils/100 WBC (Bld) 55.8 % Normal 36.0 - 75.0 % [facility] HemeAutoSS Neutrophils/Leukocy [place] Auto (Bld) [Pure # fraction] 3.6 E9/L Normal 2.0 - 7.5 E9/L [facility] HemeAutoSS HEMATOLOGYOrdered By: Chloe Reynolds on 09-10-2022 Erythrocyte distribution width (RBC) [Ratio] 14.5 % High 10.9 - 14.2 % [facility] HemeAutoSS Hematocrit (Bld) [Volume fraction] 45.0 % Normal 37.7 - 49.0 % [facility] HemeAutoSS Hemoglobin (Bld) [Mass/Vol] 14.6 g/dL Normal 13.5 - 17.5 gm/dL [facility] HemeAutoSS MCH (RBC) [Entitic mass] 30.8 pg Normal 27.0 - 34.0 pg [facility] HemeAutoSS MCHC (RBC) [Mass/Vol] 32.5 g/dL Normal 31.4 - 36.0 gm/dL [facility] HemeAutoSS MCV (RBC) [Entitic vol] 94.6 fL Normal 80.0 - 100.0 fL [facility]eAutoSS Platelet mean volume (Bld) [Entitic vol] 8.3 fL Normal 6.4 - 10.8 fL [facility] HemeAutoSS Platelets (Bld) [#/Vol] 159.0 E9/L Normal 150.0 - 500.0 E9/L [facility] HemeAutoSS RBC (Bld) [#/Vol] 4.8 E12/L Normal 4.3 - 5.9 E12/L [facility] HemeAutoSS WBC corrected for nucl RBC Auto (Bld) [#/Vol] 6.4 E9/L Normal 4.0 - 11.0 E9/L [facility] HemeAutoSS Hep Func Panelon 09-10-2022 Bilirubin.indirect [Mass or moles/Vol] UTC Abnormal 0.1-0.9 [facility] Comment on above: Result Comment: Resu lt verified by Discern Rule. Performed result UTC (Unable to Calculate) was sent as an Alpha code due the inability to calculate a valid numeric value. Performed By: #### 1 [id number], [id number], 6025487, 4455472, 2123663, 7366595, 6265959 ####[facility] [address] [place] [address] Albumin [Mass/Vol] 4.1 g/dL Normal 3.3-5.0 [facility] Comment on above: Performed By: #### 1 [id number], 14342595, 0651909, 8912976, 2935861, 2351350, 5350862 ####[facility] [address] [place] [address] Albumin/Globulin (S) [Mass conc ratio] 1.1 Normal 1.1-2.2 [facility] Comment on above: Performed By: #### 1 7550916, 14819671, 2564351, 1311136, 7470285, 6777379, 8736533 ####[address] [place] [address] ALP [Catalytic activity/Vol] 56 Int._Unit/L Normal 21-98 [facility] Comment on above: Performed By: #### 1 1949035, 03711938, 5415806, 9897117, 8917021, 6923150, 4385310 ####[address] [address] ALT No additional P-5'-P [Catalytic activity/Vol] 37 Int._Unit/L Normal 6-46 [facility] Comment on above: Performed By: #### 1 7893353, 36289420, 0559390, 1359964, 0252674, 9663836, 2833842 ####[address] [address] AST [Catalytic activity/Vol] 39 Int._Unit/L Normal 5-43 [facility] Comment on above: Performed By: #### 1 1609967, 10318394, 9669803, 7740156, 0360574, 9524450, 2261429 ####[address] [place] [address] Bilirubin [Mass/Vol] 0.6 mg/dL Normal 0.0-1.1 [facility] Comment on above: Performed By: #### 1 9686248, 73470753, 4750946, 3746605, 0641916, 2413192, 2161404 ####[facility] [address] [place] [address] Bilirubin.direct [Mass/Vol] mg/dL Normal 0.1-0.4 [facility] Comment on above: Performed By: #### 1 0765374, 39225792, 8212830, 5172963, 9836629, 2664129, 9608396 ####[facility] [address] [place] [address] Globulin (S) [Mass/Vol] 3.8 g/dL Normal 1.4-4.0 [facility] Comment on above: Performed By: #### 1 9091065, 67410178, 8882326, 5728922, 0843820, 7626056, 5968268 ####[facility] [address] [place] [address] Protein [Mass/Vol] 7.9 g/dL High 6.0-7.8 [facility] Comment on above: Performed By: #### 1 6210870, 65512654, 6924033, 6395600, 7246850, 0979430, 0820268 ####[facility] [address] [place] [address] [id number] 09-10-2022 HbA1c (Bld) [Mass fraction] 6.3 % High <=5.9 [facility] Comment on above: Performed By: #### 7 [id number] ####[facility] [address] [place] [address] Lipid Panelon 09-10-2022 Cholesterol [Mass/Vol] 209 mg/dL High 120-200 [facility] Comment on above: Performed By: #### 1 3817866, 10034932, 6548447, 1719792, 7140770, 5630617, 4317136 ####[facility] [address] [place] [address] Cholesterol in HDL [Mass/Vol] 42 mg/dL Invalid Interpretation Code [facility] Comment on above: Result Comment: HDL > or equal to 60 mg/dL: Low cardiovascular riskHDL < 40 mg/dL : High cardiovascular risk Performed By: #### 1 7378520, 92860386, 3354116, 4906563, 1540552, 2514553, 1202686 ####[facility] [address] [place] [address] Cholesterol in LDL [Mass/Vol] 144 mg/dL High <=129 [facility] Comment on above: Performed By: #### 1 5767029, 62669279, 0920126, 1068239, 0480937, 9830892, 3314598 ####[facility] [address] [place] [address] Cholesterol in VLDL [Mass/Vol] 24 mg/dL Normal 7-40 [facility] Comment on above: Performed By: #### 1 4443003, 44574079, 4768368, 0168508, 2199907, 5997336, 5899077 ####[facility] [address] [place] [address] Triglyceride [Mass/Vol] 120 mg/dL Normal <=149 [facility] Comment on above: Performed By: #### 1 8233646, 32754239, 7156193, 0949686, 2389164, 3375670, 4275958 ####[facility] [address] [place] [address] MRI Spine Lumbar w/o Contras ton 09-10-2022 MRI Spine Lumbar w/o Contrast Normal [facility] PSA Screen, Totalon 09-10-19 23 Prostate specific Ag [Mass/Vol] 0.9 ng/mL Normal 0.1-3.5 [facility] Comment on above: Result Comment: The concentration of PSA determined by different manufacturers can vary due to differences in assay methods and reagent specificity. Values obtained from different assay methods cannot be used interchangeably. The methodology used for this result was chemiluminescence using [employer]'s Access Hybritech PSA reagent. Performed By: #### 1 6326848, 72318322, 3768331, 1752111, 8404881, 1919744, 8178683 ####[facility] [address] [place] [address] RAD - MRI Screening Formon 0 09-10-2022 RAD - MRI Screening Form [id number]#1.00C D:127 Normal [facility] U Microalbon 09-10-2022 Albumin DL <= 20 mg/L (U) [Mass/Vol] 11.6 microgram/mL Normal 0.0-19.0 [facility] Comment on above: Performed By: #### 1 [id number] ####[facility] [address] [place] [address] XR Spine Lumbosacral Minimum 4 Viewson 09-10-2022 XR Spine Lumbosacral Minimum 4 Views Normal [facility] eGFRon 09-10-2022 GFR/1.73 sq M.predicted among blacks MDRD (S/P/Bld) [Vol rate/Area] mL/min/{1.73_m2} Normal >=59 [facility] Comment on above: Order Comment: Order added by Discern Expert. Result Comment: eGFR is race adjusted. AA=. Performed By: #### 1 0601592, 10923401, 2842629, 2651116, 8161540, 6629900, 5710782 ####[facility] [address] [place] [address] GFR/1.73 sq M.predicted among non-blacks MDRD (S/P/Bld) [Vol rate/Area] mL/min/{1.73_m2} Normal >=59 [facility] Comment on above: Order Comment: Order added by Discern Expert. Result Comment: Architectural Practice Manager cristo kidney disease could be indicated at eGFR's of less than 60 mL/min/1.73m2. Kidney failure is indicated at less than 15 mL/min/1.73m2. Performed By: #### 1 5719361, 17372235, 6914955, 4681950, 3292080, 1146550, 9761100 ####[facility] [address] [place] [address] Physician Orderon 08-31-2022 Physician Order [id number]#1.00C D:127 Normal [facility] Physician Order [id number]#1.00C D:127 Normal [facility] Physician Order [id number]#1.00 CD:127 Normal [facility] Physician Order [id number]#1.00 CD:127 Normal [facility] Physician Order [id number]#1.00 CD:127 Normal [facility] Consultation Noteon 08-29-19 Consultation Note Normal [facility] Comment on above: Result Comment: Elec tronically Signed By: Pawan Laureano MD\.br\Date and Time Signed: 08/29/22 08:28 EST Family Medicine Office/Clini c Noteon 08-29-2022 Family Medicine Office/Clinic Note Normal [facility] Comment on above: Result Comment: Elec tronically Signed By: Mt GOODEN DO, FAAFP\.br\Date and Time Signed: 08/29/22 12:52 EST\.br\Electronically Co-Signed By: Estelita Singh LPN\.br\Date and Time Co-Signed: 08/28/22 14:23 EST Ambulatory Visit Summaryon 0 08-28-2022 Ambulatory Visit Summary Invalid Interpretation Code [address] [place] [address]- \.br\ Saturday 11:00 AM EST \.br\ With:\.br\ Where: [facility] Patient Educationon 08-28-19 Patient Education [facility] Screenson 08-28-2022 Screens [id number]#1.00C D:127 [facility] Coding Summary.on 08-27-2022 Coding Summary. Normal [facility] Ambulatory Visit Summaryon 0 08-23-2022 Ambulatory Visit Summary Invalid Interpretation Code [address], [place] [address]- \.br\ You Need to Schedule the Following Appointments\.br\ Follow Up with Mt GOODEN DO, FAAFP, BEATRIZ, PED When: In 6 months\.br\ Where:\.br\ [address], [address]br\ [place] [address].br\ \.br\ You Need to Complete the Following\.br\ Basic Metabolic Panel, Blood, Routine collect, 08/23/22, Order for future visit, Lab Collect, Type 2 diabetes mellitus with morbid obesity [facility] Consent for Treatmenton 08-12 Consent for Treatment [id number]#1.00 CD:127 Normal [facility] Family Medicine Office/Clini c Noteon 08-23-2022 Family Medicine Office/Clinic Note Normal [facility] Comment on above: Result Comment: Elec tronically Signed By: Mt GOODEN DO, FAAFP\.br\Date and Time Signed: 08/23/22 08:16 EST HIPAA Forms Officeon 023 HIPAA Forms Office [id number]#1.00 CD:127 Normal [facility] Legal Correspondence Officeo n 08-23-2022 Legal Correspondence Office [id number]#1.00 CD:127 Normal [facility] Legal Correspondence Office [id number]#1.00 CD:127 Normal [facility] Office/Clinic Note-Physician on 08-23-2022 Office/Clinic Note-Physician [id number]#1.00 CD:127 Normal [facility] Patient Correspondenceon Patient Correspondence [id number]#1.00 CD:127 Normal [facility] Patient Correspondence [id number]#1.00 CD:127 Normal [facility] Patient Correspondence [id number]#1.00 CD:127 Normal [facility] Patient Correspondence [id number]#1.00 CD:127 [facility] Patient Correspondence [id number]#1.00 CD:127 Normal [facility] Patient Educationon 08-23-19 Patient Education [facility] Patient History Officeon Patient History Office [id number]#1.00 CD:127 Normal [facility] Physician Referralon 023 Physician Referral [id number]#1.00C D:127 [facility] Physician Referralon 022 Physician Referral [id number]#1.0 0CD:127 [facility] Reminderson 08-02-2022 Reminders [facility] Family Medicine Office/Clini c Noteon 08-01-2022 Family Medicine Office/Clinic Note [facility] Comment on above: Result Comment: Elec tronically Signed By: Thao Duncan DO\Date and Time Signed: 08/01/22 20:01 EST Patient Educationon 08-01-20 Patient Education [facility] ANES POSTPROC EVALon 022 ANES POSTPROC EVAL HNO ID: [id number] Author: Vincenzo Laughlin MD Service: ? 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 PACU/ICU Patient Condition: stable. Anticipated Disposition: phase 2 then home. Neurological Status: aware and responsive. Pulmonary Status: breathing comfortably on room air Airway Control: returned to baseline unsupported. Cardiovascular Status: stable. Pain Management: clinically adequate Postoperative Hydration: acceptable. Intraoperative Events: no significant anesthesia events Post Operative Nausea/Vomiting Status: no significant post operative nausea or vomiting Anesthetic Observations: Recommendation: continue current plan of care. Anesthesia Observations No Documentation SIGNATURE: Vincenzo Laughlin MD PATIENT NAME: Jas Gonzalez DATE: June 08, 2022 TIME: 5:56 PM CSN: [id number] Normal [facility] ANES PRE-OPon 06-08-2022 ANES PRE-OP HNO ID: [id number] Author: Vincenzo Laughlin MD Service: ? Author Type: Anesthesiologist Type: Anesthesia Preprocedure Evaluation Filed: 06/08/2022 12:32 PM Note Text: ANESTHESIOLOGY DAY OF SURGERY NOTE : 1950 Procedure Information Date/Time: 06/08/22 1300 Scheduled providers: Katrina Urena MD; Vincenzo Laughlin MD; Sky Howe APRN.[employer] [employer]MER Procedure: EGD DIAGNOSTIC Location: Gastroenterology Estimated body mass index is 41.96 kg/m? as calculated from the following: Height as of this encounter: 185.4 cm (6' 1 ). Weight as of this encounter: 144.2 kg (318 lb). Most recent hematocrit and potassium results: Hematocrit 46.8 04/09/2022 Potassium 4.2 04/09/2022 Relevant Problems NEURO-PSYCH (+) History of pulmonary embolism PULMONARY (+) Diaphragmatic hernia Gastrointestinal (+) Mccarty's esophagus with dysplasia Endocrinology (+) Diabetes mellitus (HCC) Other (+) Class 3 severe obesity due to excess calories with serious comorbidity and body mass index (BMI) of 40.0 to 44.9 in adult (HCC) I - PHYSICAL EVALUATION AIRWAY Patient intubated: No. Tracheostomy tube not present Mallampati: I. TM distance: >3 FB. Neck ROM: full ROM without neurological symptoms. Mouth opening: adequate. Short neck: yes. Thick neck: yes DENTAL Dental findings: teeth intact. II - ANESTHESIA PLAN ASA Score: 3 Anesthetic Plan: MAC NPO Status: adequate Monitoring plan: standard ASA. Postoperative analgesic plan: per surgical service. Informed Consent Anesthetic risks, benefits, alternatives, personnel and consent discussed: yes. Patient / Responsible Constitution Party agrees to proceed: yes Patient / Surrogate agrees to blood products: blood products not planned Significant changes in the patient condition since the History and Physical, not otherwise documented in primary service progress note: no. Potential Anesthesia issues that may suggest increased risk of complications or contraindication to planned procedure: none. Vitals Value Taken Time BP 125/66 06/08/22 1210 Pulse 79 06/08/22 1210 Resp 16 06/08/22 1210 Temp 36.5 ?C (97.7 ?F) 06/08/22 1210 SpO2 95 % 06/08/22 1210 No current outpatient medications on file as of 06/08/2022. No current facility-administered medications on file as of 06/08/2022. I have interviewed and examined the patient. I have reviewed the medical record and/or the pre-anesthesia evaluation, pertinent labs, and test results. This contains updated information obtained within 48 hours of Surgery/Procedure. SIGNATURE: Vincenzo Laughlin MD PATIENT NAME: Jas Gonzalez DATE: June 08, 2022 TIME: 12:31 PM CSN: [id number] [facility] EGD DIAGNOSTICon 06-08-2022 [facility] GLUCOSE, BLOOD (POC)on 06-08 Glucose [Mass/Vol] 129 mg/dL Abnormal 74 - 99 mg/dL [facility] Glucose [Mass/Vol] 95 mg/dL 74 - 99 mg/dL [facility] NURSING PROGon 06-08-2022 NURSING PROG HNO ID: [id number] Author: Leonor Osorio RN Service: Nursing Author Type: Registered Nurse Type: Nursing Progress Note Filed: 06/08/2022 1:39 PM Note Text: AMBULATORY PATIENT EDUCATION NOTE TOPIC: GI PROCEDURES: Esophagogastroduodenosc opy(EGD) with or without biopies based on clinical findings, removal of polyps or lesions READINESS TO LEARN INSTRUCTION PROVIDED TO: Patient and family member COGNITIVE ABILITY: Alert and oriented PTED MOTIVATION TO LEARN: Interested FAMILY SUPPORT: High - Very involved in pt care IPATIENT LEARNS BEST BY: Written Instruction - Hand-outs Verbal Instruction FACTORS AFFECTING LEARNING: None PHYSICAL LIMITATIONS AFFECTING LEARNING: None LEARNING RESPONSE METHOD OF INSTRUCTION: Individual instruction PATIENT / FAMILY RESPONSE: Verbalizes understanding of: WORSENING CONDITION-Signs and symptoms of a worsening condition that warrant a call to the physician FOLLOW-UP PLAN: Recommend - Recommend continued instruction and follow up as directed SUPPLEMENTAL MATERIAL: Procedure Discharge Instructions REFERRAL (RECOMMENDATION): None Electronically Signed By: Leonor Osorio RN [facility] NURSING PROG HNO ID: [id number] Author: Marguerite Potts RN Service: Nursing Author Type: Registered Nurse Type: Nursing Progress Note Filed: 06/08/2022 12:04 PM Note Text: PRE OP LEARNING ASSESSMENT PROCEDURE/SURGERY: GI PROCEDURES: EGD READINESS TO LEARN COGNITIVE ABILITY: Alert and oriented MOTIVATION TO LEARN: Eager FAMILY SUPPORT: Unable to assess - Family not present PATIENT LEARNS BEST BY: Individual Instruction FACTORS AFFECTING LEARNING: None PHYSICAL LIMITATIONS AFFECTING LEARNING: None Electronically Signed By: Marguerite Potts RN In Department: GASTROENTEROLOGY [facility] SURGICAL PATHOLOGYon 022 ADDENDUM 1: Normal [facility] Comment on above: Order Comment: Speci men Type: TISSUE SPECIMENOrdering Facility: [facility] Address: [address] [place] [phone] Result Comment: H. p ylori immunostain performed on the stomach biopsy (part A) to evaluate the chronic gastritis is negative for organisms. Laboratory Developed Test (LDT) Disclaimer: Performance characteristics of immunohistochemical, immunofluorescent and chromogenic in-situ hybridization tests have been determined by the performing laboratory within [facility]???s Thao Caraballo [facility] Pathology and Laboratory Medicine [place] ([facility], [facility], [facility] or [facility]) in a manner consistent with CLIA requirements. One or more of these tests have not been cleared or approved by the FDA. [facility] is regulated under CLIA as qualified to perform high-complexity testing. These tests are used for clinical purposes. They should not be regarded as investigational or for research. Positive and negative controls stain appropriately. Addendum electronically signed by Sky Alvarenga MD on 06/12/2022 at 3:20 PM Performed By: #### S ####[facility]ORY[facility] [id number] [address] CASE REPORT [facility] Comment on above: Order Comment: Jay mendoza Type: TISSUE SPECIMENOrdering Facility: [facility] Address: [address] [place] [address] Result Comment: Surg [facility] Pathology Report Case: [id number] Authorizing Provider: Katrina Urena MD Collected: 06/08/2022 12:47 PM Ordering Location: Gastroenterology Received: 06/08/2022 03:49 PM Pathologist: Sky Alvarenga MD Specimens: A) - STOMACH BIOPSY, gastric antrum B) - STOMACH BIOPSY, gastric antrum nodule C) - ESOPHAGUS BIOPSY, @41 D) - ESOPHAGUS BIOPSY, @39 E) - ESOPHAGUS BIOPSY, @38 Performed By: #### S ####[facility]ORATORYCLIA [id number] [address] DIAGNOSIS COMMENT H. pylori immunostai n is pending. [facility] Comment on above: Order Comment: Jay mendoza Type: TISSUE SPECIMENOrdering Facility: [facility] Address: [address] [place] [address] Performed By: #### S ####[facility] LABORATORYCLIA [id number] [address] FINAL DIAGNOSIS [facility] Comment on above: Order Comment: Jay mendoza Type: TISSUE SPECIMENOrdering Facility: [facility] Address: [address] [place] [address] Result Comment: A. S tomach, biopsy: - Antral mucosa with chronic minimally active gastritis. - See comment. B. Antral nodule, biopsy: - Antral mucosa with foveolar hyperplasia and chronic inactive gastritis. - Negative for dysplasia. C. Esophagus at 41 cm, biopsy: - Fundic mucosa with minimal chronic inflammation. - No evidence of intestinal metaplasia or dysplasia. D. Esophagus at 39 cm, biopsy: - Reactive squamous mucosa and inflamed cardiac mucosa with very focal intestinal metaplasia. - Negative for dysplasia. E. Esophagus at 38 cm, biopsy: - Mccarty's esophagus, negative for dysplasia. Performed By: #### S ####[facility] LABORATORYCLIA [id number] [address] [place] FINAL PERFORMING LAB Normal [facility] Comment on above: Order Comment: Speci men Type: TISSUE SPECIMENOrdering Facility: [facility] Address: [address] [place] [address] Result Comment: Diag nostic interpretation performed at [facility], [address], [place] [address] CLIA# [id number] Permit Agent: Nellie Galvin M.D. Performed By: #### S ####[facility] LABORATORYCLIA [id number] [address] GROSS DESCRIPTION Normal [facility] Comment on above: Order Comment: Speci men Type: TISSUE SPECIMENOrdering Facility: [facility] Address: [address] [place] [address] Result Comment: A. S TOMACH BIOPSY Received in formalin are two pieces of sales, soft tissue aggregating to 0.5 x 0.2 x 0.2 cm. Totally submitted in formalin in one cassette. B. STOMACH BIOPSY Received in formalin are two pieces of sales-brown, soft tissue aggregating to 0.6 x 0.2 x 0.2 cm. Totally submitted in formalin in one cassette. C. ESOPHAGUS BIOPSY Received in formalin are multiple pieces of sales, soft tissue aggregating to 1.1 x 0.2 x 0.2 cm. Totally submitted in formalin in one cassette. D. ESOPHAGUS BIOPSY Received in formalin are two pieces of sales, soft tissue aggregating to 0.7 x 0.2 x 0.1 cm. Totally submitted in formalin in one cassette. E. ESOPHAGUS BIOPSY Received in formalin are multiple pieces of sales, soft tissue aggregating to 1.1 x 0.2 x 0.2 cm. Totally submitted in formalin in one cassette. Gross examination performed at [facility], [address] [place] [address] JS 06/08/2022 7:53 PM Performed By: #### S ####[facility] [id number] [place] [address] [facility] JAS GONZALEZ ([id number]) 1950 M [facility] Date Time Provider Department 06/01/22 DEE MARIN During your visit today, we recorded the following information about you: Dee Marin RN 06/01/2022 3:53 PM Signed GI Pre-Procedure Spoke with patient: Yes Confirmed date scheduled and patient report time: Yes Procedure Planned:Esophagogastrod uodenoscopy(EGD) with or without biopies based on clinical findings, removal of polyps or lesions Is the patient on blood thinners?no Procedure Instructions given to patient: Yes, and they verbalized their understanding of instructions given Patient instructed to take prescribed preparation prior to procedure:Yes, and they verbalized their understanding of instructions given Patient instructed to have family/friend present for procedure 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 Any barriers to Patient learning: Patient/Patient Bail Agent responded appropriately on phone. Type of instruction given: Verbal by telephone contact. Dee Marin RN Allergies As of Date: 06/01/2022 (Not on File) Date Reviewed: Never Reviewed Reason for Visit: Appointment Confirmation [[id number]] Problem List As Of Date: 06/01/2022 (None) Encounter Status:Closed by DEE MARIN on [facility]/01/22 [facility] JAS GONZALEZ ([id number]) 1950 M DEF Date Time Provider Department 04/26/22 MARGUERITE POTTS During your visit today, we recorded the following information about you: Marguerite Potts RN 04/26/2022 3:44 PM Signed Attempted to reach the patient at the contact number that they provided [phone] (home) . 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 Failure to have a responsible adult accompany the patient to their procedure appointment prevents the use of sedation or anesthesia for their procedure; and can result in cancellation of the procedure NPO instructions were reviewed. Instructions to contact their primary care provider regarding their medications and which medications to stop in preparation for their procedure Instructions to completely read and follow the written instructions that they recieved regarding their procedure. Number to call with questions or concerns [phone] Number to call to cancel their procedure [phone] Marguerite Potts RN Allergies As of Date: 04/26/2022 (Not on File) Date Reviewed: Never Reviewed Reason for Visit: Appointment Confirmation [[id number]] Problem List As Of Date: 04/26/2022 (None) Encounter Status:Closed by MARGUERITE POTTS on 04/26/22 Normal [facility] CBC panel Auto (Bld)on 04-09 Erythrocyte distribution width (RBC) [Ratio] 13.3 % 11.5 - 15.0 % [facility] Hematocrit (Bld) [Volume fraction] 46.8 % 39.0 - 51.0 % [facility] Hemoglobin (Bld) [Mass/Vol] 15.1 g/dL 13.0 - 17.0 g/dL [facility] MCH (RBC) [Entitic mass] 30.7 pg 26.0 - 34.0 pg [facility] MCHC (RBC) [Mass/Vol] 32.3 g/dL 30.5 - 36.0 g/dL [facility] MCV (RBC) [Entitic vol] 95.1 fL 80.0 - 100.0 fL [facility] Nucleated RBC (Bld) [#/Vol] <0.01 k/uL [facility] Platelet mean volume (Bld) [Entitic vol] 10.8 fL 9.0 - 12.7 fL [facility] Platelets (Bld) [#/Vol] 165 10*3/uL 150 - 400 k/uL [facility] RBC (Bld) [#/Vol] 4.92 10*6/uL 4.20 - 6.00 m/uL [facility] WBC (Bld) [#/Vol] 8.48 10*3/uL 3.70 - 11.00 k/u L [facility] Erythrocyte distribution width (RBC) [Ratio] 13.3 % Normal 11.5-15.0 [facility] Comment on above: Order Comment: Speci men Type: BLOOD SPECIMENOrdering Facility: [facility] Address: [address] [place] [address] Performed By: #### 5 8410-2 ####[facility] [id number] [place] [address] [place] Hematocrit (Bld) [Volume fraction] 46.8 % Normal 39.0-51.0 [facility] Comment on above: Order Comment: Speci men Type: BLOOD SPECIMENOrdering Facility: [facility] Address: [address] [place] [address] Performed By: #### 5 8410-2 ####[facility] LABIA [id number] [place] [address] [place] Hemoglobin (Bld) [Mass/Vol] 15.1 g/dL Normal 13.0-17.0 [facility] Comment on above: Order Comment: Speci men Type: BLOOD SPECIMENOrdering Facility: [facility] Address: [address] [place], [place] [address] Performed By: #### 5 8410-2 ####[facility] [id number] [address] MCH (RBC) [Entitic mass] 30.7 pg Normal 26.0-34.0 [facility] Comment on above: Order Comment: Speci men Type: BLOOD SPECIMENOrdering Facility: [facility] Address: [address] [place], [place] [address] Performed By: #### 5 8410-2 ####[facility] [id number] [address] MCHC (RBC) [Mass/Vol] 32.3 g/dL Normal 30.5-36.0 [facility] Comment on above: Order Comment: Speci men Type: BLOOD SPECIMENOrdering Facility: [facility] Address: [address] [place], [place] [address] Performed By: #### 5 8410-2 ####[facility] [id number] [address] STATES [facility] MCV (RBC) [Entitic vol] 95.1 fL Normal 80.0-100.0 [facility] Comment on above: Order Comment: Speci men Type: BLOOD SPECIMENOrdering Facility: [facility] Address: [address] [place], [place] [address] Performed By: #### 5 8410-2 ####[facility] [id number] [address] Nucleated RBC (Bld) [#/Vol] 10*3/uL Normal <0.01 [facility] Comment on above: Order Comment: Speci men Type: BLOOD SPECIMENOrdering Facility: [facility] Address: [address] [place], [place] [address] Performed By: #### 5 8410-2 ####[facility] LABCLIA [id number] [place] [address] [place] Platelet mean volume (Bld) [Entitic vol] 10.8 fL Normal 9.0-12.7 [facility] Comment on above: Order Comment: Speci men Type: BLOOD SPECIMENOrdering Facility: [facility] Address: [address] [place], [place] [address] Performed By: #### 5 8410-2 ####[facility] LABIA [id number] [place] [address] [place] Platelets (Bld) [#/Vol] 165 10*3/uL Normal 150-400 [facility] Comment on above: Order Comment: Speci men Type: BLOOD SPECIMENOrdering Facility: [facility] Address: [address] [place], [place] [address] Performed By: #### 5 8410-2 ####[facility] LABIA [id number] [place] [address] [place] RBC (Bld) [#/Vol] 4.92 10*6/uL Normal 4.20-6.00 [facility] Comment on above: Order Comment: Speci men Type: BLOOD SPECIMENOrdering Facility: [facility] Address: [address] [place], [place] [address] Performed By: #### 5 8410-2 ####[facility] LABIA [id number] [place] [address] [place] WBC (Bld) [#/Vol] 8.48 10*3/uL Normal 3.70-11.00 [facility] Comment on above: Order Comment: Speci men Type: BLOOD SPECIMENOrdering Facility: [facility] Address: [address] [place], [place] [address] Performed By: #### 5 8410-2 ####[facility] LABIA [id number] [address] [place] [address] [place] CNOVon 04-09-2022 CNOV Office Visit (GASTQ3 ) JAS GONZALEZ ([id number]) 1950 M DEF Date Time Provider Department 04/09/22 3:00 PM KATRINA URENA GASTQ3 During your visit today, we recorded the following information about you: Katrina Urena MD 04/09/2022 3:46 PM Signed DEPARTMENT OF GASTROENTEROLOGY Consulting Physician: Gonzales Robbins MD Dear Dr. Robbins, Thank you for your kind new patient consult of . Please see below for my recommendations and treatment plan which will be communicated to you by way of shared medical record or mail. CC: Geronimo's esophagus History of Present Illness: Jas Gonzalez is a 72 year old male who presents for evaluation of Mccarty's esophagus.. Initial diagnosis several years ago. Long standing GERD symptoms requiring PPI. No dysphagia or odynophagia. 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 Compliance with medication. Mccarty's Esophagus GERD, Famotidine 40mg in pm AND omeprazole 40mg in am No pain Purposefully losing weight (20lb) Appetite good No family history of esophageal cancer or Mccarty's Had EGD several years ago and was told her had Mccarty's esophagus Note: Last OV 03/22/2022, Dr. Robbins: 1 week s/p EGD with biopsies distal esophagitis/Mccarty's changes; extensive distal esophageal disease; no nodularity; pathologist concerned about possible dysplasia sent specimen to CC, still pending; patient denies pain or GERD symptoms. 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 Family History:No family history on file. Social History: Tobacco Use: Not on file Alcohol Use: Not on file Drug Use: Not on file Allergies: ALLERGIES Not on File Medications: No current outpatient medications on file. No current facility-administered medications for this visit. Review of Systems: GENERAL: negative for malaise, significant weight loss, night sweats and fever HEENT: No changes in hearing or vision, no nose bleeds or other nasal problems., No trouble swallowing NECK: Negative for lumps, goiter, pain and significant neck swelling RESPIRATORY: Negative for cough, wheezing and shortness of breath CARDIOVASCULAR: Negative for chest pain, leg swelling, palpitations, orthopnea GI: GERD symptoms well controlled with PPI and SEE HPI MUSCULOSKELETAL: Negative for joint pain or swelling, back pain, and muscle pain. SKIN: Negative for lesions, rash, and itching. Physical Exam: VITALS: There were no vitals taken for this visit., There is no height or weight on file to calculate BMI. GENERAL: well appearing, alert, in no acute distress, well-hydrated, well nourished HEENT: HEAD: normocephalic, atraumatic, no masses, lesions, tenderness or abnormalities EYES: EOMI, Anicteric sclera EARS: external ears normal NOSE: negative THROAT: lips, mucosa, and tongue normal, teeth and gums normal, oropharynx normal NECK: FROM, No JVD or bruits. SKIN: No jaundice LUNGS: clear to auscultation, no wheezing, rales or rhonchi HEART: RRR, normal S1, S2 auscultated, no M/G/R ABD: soft, non-tender, non-distended. Bowel sounds normal. No masses, organomegaly EXTREMITIES: No clubbing, cyanosis, or edema. MUSCULOSKELETAL: No joint swelling, deformity, or tenderness NEURO: Alert and oriented x3, speech clear and fluent, gait normal Imaging/Labs: EGD 03/15/2022: Findings: The affected area was not inflamed. Norris classification C 40, M 35. Biopsy collected. The squamocolumnar junction appeared irregular and was located 40 cm from incisors. A hiatal hernia was identified 3 cm in length. The hernia is described as a sliding hernia. Examination of the duodenum revealed a normal duodenum. 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 -indefinite for dysphagia. 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 - EGD with biopsy I would like to thank you for the kind referral of . I appreciate the opportunity to be involved in his care. Please do not hesitate to call upon me if I may be of further assistance. The patient is seen and examined by Dr. Urena and the following reflects his/her service. Scribed by Lynn Beaver RN I agree with the Chief Complaint, ROS, and Past Histories independently gathered by the clinical residential direct support professional and the remaining scribed note accurately describes my personal service to the patient. Katrina Urena M.D. Office:[phone] Appointments [phone] (more content not included)... Normal [facility] Comprehensive metabolic 2000 panelon 04-09-2022 Albumin [Mass/Vol] 4.4 g/dL Normal 3.9-4.9 [facility] Comment on above: Order Comment: Speci men Type: BLOOD SPECIMENOrdering Facility: [facility] Address: [address] [place] [address] Performed By: #### 2 4323-8 ####[facility] LABCLIA [id number] [place] [address] [place] ALP [Catalytic activity/Vol] 70 U/L Normal 38-113 [facility] Comment on above: Order Comment: Speci men Type: BLOOD SPECIMENOrdering Facility: [facility] Address: [address] [place] [address] Performed By: #### 2 4323-8 ####[facility] LABCLIA [id number] [place] [address] [place] ALT [Catalytic activity/Vol] 33 U/L Normal 10-54 [facility] Comment on above: Order Comment: Speci men Type: BLOOD SPECIMENOrdering Facility: [facility] Address: [address] Performed By: #### 2 4323-8 ####[facility] LABCLIA [id number] [place] [address] [place] Anion gap [Moles/Vol] 12 mmol/L Normal 9-18 [facility] Comment on above: Order Comment: Speci men Type: BLOOD SPECIMENOrdering Facility: [facility] Address: [address] [place], [place] [address] Performed By: #### 2 4323-8 ####[facility] LABCLIA [id number] [place] [address] [place] AST [Catalytic activity/Vol] 32 U/L Normal 14-40 [facility] Comment on above: Order Comment: Speci men Type: BLOOD SPECIMENOrdering Facility: [facility] Address: [address] [place], [place] [address] Performed By: #### 2 4323-8 ####[facility] LABCLIA [id number] [place] [address] [place] Bilirubin [Mass/Vol] 0.4 mg/dL Normal 0.2-1.3 [facility] Comment on above: Order Comment: Speci men Type: BLOOD SPECIMENOrdering Facility: [facility] Address: [address] [place], [place] [address] Performed By: #### 2 4323-8 ####[facility] LABCLIA [id number] [place] [address] [place] Calcium [Mass/Vol] 9.9 mg/dL Normal 8.5-10.2 [facility] Comment on above: Order Comment: Speci men Type: BLOOD SPECIMENOrdering Facility: [facility] Address: [address] [place] [address] Performed By: #### 2 4323-8 ####[facility] LABCLIA [id number] [place] [id number] [place] Chloride [Moles/Vol] 100 mmol/L Normal 97-105 [facility] Comment on above: Order Comment: Speci men Type: BLOOD SPECIMENOrdering Facility: [facility] Address: [address] [place] [address] Performed By: #### 2 4323-8 ####[facility] LABCLIA [id number] [place] [address] [place] CO2 [Moles/Vol] 27 mmol/L Normal 22-30 [facility] Comment on above: Order Comment: Speci men Type: BLOOD SPECIMENOrdering Facility: [facility] Address: [address] [place] [address] Performed By: #### 2 4323-8 ####[facility] LABCLIA [id number] [address] STATES OF [facility] Creatinine [Mass/Vol] 0.92 mg/dL Normal 0.73-1.22 [facility] Comment on above: Order Comment: Speci men Type: BLOOD SPECIMENOrdering Facility: [facility] Address: [address] [place] [address] Performed By: #### 2 4323-8 ####[facility] LABCLIA [id number] [address] ESTIMATED GLOMERULAR FILTRATION RATE 87 mL/min/1.73m??? Normal >=60 [facility] Comment on above: Order Comment: Speci men Type: BLOOD SPECIMENOrdering Facility: [facility] Address: [address] [place] [address] Result Comment: Aminta mated Glomerular Filtration Rate (eGFR) is calculated using the 2020 CKD-EPI creatinine equation. This equation utilizes serum creatinine, sex, and age as parameters. The creatinine assay has traceable calibration to isotope dilution-mass spectrometry. Refer to KDIGO guidelines for clinical interpretation. In patients with unstable renal function, e.g. those with acute kidney injury, the eGFR may not accurately reflect actual GFR. Performed By: #### 2 4323-8 ####[facility] LABCLIA [id number] [place] [address] [place] Glucose [Mass/Vol] 99 mg/dL Normal 74-99 [facility] Comment on above: Order Comment: Speci men Type: BLOOD SPECIMENOrdering Facility: [facility] Address: [address] [place] [address] Result Comment: The [place] Diabetes Association (ADA) provides guidance for cutoff values for fasting glucose and random glucose. The ADA defines fasting as no caloric intake for at least 8 hours. Fasting plasma glucose results between 100 to 125 mg/dL indicate increased risk for diabetes (prediabetes). Fasting plasma glucose results greater than or equal to 126 mg/dL meet the criteria for diagnosis of diabetes. In the absence of unequivocal hyperglycemia, results should be confirmed by repeat testing. In a patient with classic symptoms of hyperglycemia or hyperglycemic crisis, random plasma glucose results greater than or equal to 200 mg/dL meet the criteria for diagnosis of diabetes. Reference: Standards of Medical Care in Diabetes 2016, [place] Diabetes Association. Diabetes Care. 2016.39(Suppl 1). Performed By: #### 2 4323-8 ####[facility] LABCLIA [id number] [place] [address] [place] Potassium [Moles/Vol] 4.2 mmol/L Normal 3.7-5.1 [facility] Comment on above: Order Comment: Speci men Type: BLOOD SPECIMENOrdering Facility: [facility] Address: [address] [place] [address] Performed By: #### 2 4323-8 ####[facility] LABCLIA [id number] [place] [address] [place] Protein [Mass/Vol] 7.7 g/dL Normal 6.3-8.0 [facility] Comment on above: Order Comment: Speci men Type: BLOOD SPECIMENOrdering Facility: [facility] Address: [address] [place] [address] Performed By: #### 2 4323-8 ####[facility] LABIA [id number] [place] [address] [place] Sodium [Moles/Vol] 139 mmol/L Normal 136-144 [facility] Comment on above: Order Comment: Speci men Type: BLOOD SPECIMENOrdering Facility: [facility] Address: [address] [place], [place] [address] Performed By: #### 2 4323-8 ####[facility] LABCLIA [id number] [place] [address] [place] Urea nitrogen [Mass/Vol] 16 mg/dL Normal 9-24 [facility] Comment on above: Order Comment: Speci men Type: BLOOD SPECIMENOrdering Facility: [facility] Address: [address] [place] [address] Performed By: #### 2 4323-8 ####[facility] LABCLIA [id number] [address] [place] CHEMISTRYOrdered By: [facility] on 09-07-2021 HbA1c (Bld) [Mass fraction] 6.3 % High <=5.9% [facility] [place] [facility] Vital Signs Date Time Vital Sign Value Performing Clinician Facility 07-17-2023 09:46-0500 Blood Pressure Location Basem Murillo [facility] 07-17-2023 09:46-0500 Diastolic blood pressure 72 mm[Hg] Basem Murillo [facility] 07-17-2023 09:46-0500 Heart rate 81 /min Basem Murillo [facility] 07-17-2023 09:46-0500 SaO2% (BldA) [Mass fraction] 95 % Basem Murillo [facility] 07-17-2023 09:46-0500 Systolic blood pressure 102 mm[Hg] Basem Murillo [facility] 11-28-2023 10:05-0500 Heart rate 83 /min d Al-Marrawi [facility] 07-09-2023 10:05-0500 SaO2% (BldA) [Mass fraction] 95 % Mhd Al-Marrawi [facility] 07-09-2023 10:05-0500 Body temperature 97.52 [degF] d Al-Marrawi [facility] 07-09-2023 10:04-0500 Diastolic blood pressure 69 mm[Hg] d Al-Marrawi [facility] 07-09-2023 10:04-0500 Mean blood pressure 84 mm[Hg] d Al-Marrawi [facility] 07-09-2023 10:04-0500 Systolic blood pressure 113 mm[Hg] d Al-Marrawi [facility] 07-09-2023 10:04-0500 Respiratory rate 20 /min d Al-Marrawi [facility] 06-26-2023 09:42-0500 Blood Pressure Location Basem Murillo [facility] 06-26-2023 09:42-0500 Diastolic blood pressure 69 mm[Hg] Basem Murillo [facility] 06-26-2023 09:42-0500 Heart rate 84 /min Basem Murillo [facility] 06-26-2023 09:42-0500 SaO2% (BldA) [Mass fraction] 96 % Basem Murillo [facility] 06-26-2023 09:42-0500 Systolic blood pressure 106 mm[Hg] Basem Murillo [facility] 06-03-2023 13:35-0400 Blood Pressure Location [place] [facility] 06-03-2023 13:35-0400 Body temperature 98.42 [degF] [place] [facility] 06-03-2023 13:35-0400 Diastolic blood pressure 62 mm[Hg] [place] [facility] 06-03-2023 13:35-0400 Heart rate 78 /min [place] [facility] [facility] 06-03-2023 13:35-0400 Respiratory rate 22 /min [place] [facility] 06-03-2023 13:35-0400 SaO2% (BldA) [Mass fraction] 94 % [facility] [facility] 06-03-2023 13:35-0400 Systolic blood pressure 104 mm[Hg] [place] [facility] 04-09-2023 10:00-0400 Blood Pressure Location [facility] 04-09-2023 10:00-0400 Body temperature 98.42 [degF] [facility] 04-09-2023 10:00-0400 Diastolic blood pressure 68 mm[Hg] [facility] 04-09-2023 10:00-0400 Heart rate 90 /min [facility] 04-09-2023 10:00-0400 Mean blood pressure 80 mm[Hg] [facility] 04-09-2023 10:00-0400 Respiratory rate 22 /min [facility] 04-09-2023 10:00-0400 SaO2% (BldA) [Mass fraction] 93 % [facility] 04-09-2023 10:00-0400 Systolic blood pressure 104 mm[Hg] Mitch Amaro [facility] 03-13-2023 14:00-0400 Hourly Rounding Jordan Dianne [facility] 03-13-2023 14:00-0400 Promise to Return Jordan Dianne [facility] 03-13-2023 04:00-0400 Diastolic blood pressure 65 mm[Hg] Jordan Dianne [facility] 03-13-2023 04:00-0400 Heart rate 85 /min Jordan Dianne [facility] 03-13-2023 04:00-0400 Hourly Rounding Jordan Dianne [facility] 03-13-2023 04:00-0400 Mean blood pressure 81 mm[Hg] Jordan Dianne [facility] 03-13-2023 04:00-0400 Promise to Return Jordan Dianne [facility] 03-13-2023 04:00-0400 SaO2% (BldA) [Mass fraction] 94 % Jordan Dianne [facility] 03-13-2023 04:00-0400 Systolic blood pressure 112 mm[Hg] Jordan Dianne [facility] 03-13-2023 03:44-0400 Diastolic blood pressure 63 mm[Hg] Jordan Dianne [facility] 03-13-2023 03:44-0400 Heart rate 82 /min Jordan Dianne [facility] 03-13-2023 03:44-0400 Mean blood pressure 78 mm[Hg] Jordan Dianne [facility] 03-13-2023 03:44-0400 SaO2% (BldA) [Mass fraction] 96 % Jordan Dianne [facility] 03-13-2023 03:44-0400 Systolic blood pressure 108 mm[Hg] Jordan Dianne [facility] 03-13-2023 03:00-0400 Diastolic blood pressure 67 mm[Hg] Jordan Dianne [facility] 03-13-2023 03:00-0400 Heart rate 81 /min Jordan Dianne [facility] 03-13-2023 03:00-0400 Hourly Rounding Jordan Dianne [facility] 03-13-2023 03:00-0400 Mean blood pressure 84 mm[Hg] Jordan Dianne [facility] 03-13-2023 03:00-0400 Promise to Return Jordan Dianne [facility] 03-13-2023 03:00-0400 Systolic blood pressure 118 mm[Hg] Jordan Dianne [facility] 03-13-2023 02:22-0400 Body temperature 97.52 [degF] Jordan Dianne [facility] 03-13-2023 02:22-0400 Heart rate 83 /min Jordan Dianne [facility] 03-13-2023 02:22-0400 Respiratory rate 16 /min Jordan Dianne [facility] 03-11-2023 10:00-0400 Blood Pressure Location Mhd Al-Marrawi [facility] 03-11-2023 10:00-0400 Body temperature 97.7 [degF] d Al-Marrawi [facility] 03-11-2023 10:00-0400 Diastolic blood pressure 65 mm[Hg] Mhd Al-Marrawi [facility] 03-11-2023 10:00-0400 Heart rate 93 /min Mhd Al-Marrawi [facility] 03-11-2023 10:00-0400 Mean blood pressure 77 mm[Hg] d Al-Marrawi [facility] 03-11-2023 10:00-0400 Respiratory rate 22 /min Mhd Al-Marrawi [facility] 03-11-2023 10:00-0400 SaO2% (BldA) [Mass fraction] 94 % d Al-Marrawi [facility] 03-11-2023 10:00-0400 Systolic blood pressure 100 mm[Hg] d Al-Marrawi [facility] 02-19-2023 16:33-0400 Hourly Rounding [facility] 02-19-2023 16:33-0400 Promise to Return [facility] 02-19-2023 16:00-0400 Hourly [facility] 02-19-2023 16:00-0400 [facility] 02-19-2023 15:29-0400 Heart rate 86 /min [facility] 02-19-2023 15:29-0400 SaO2% (BldA) [Mass fraction] 94 % [facility] 02-19-2023 15:28-0400 Diastolic blood pressure 86 mm[Hg] [facility] 02-19-2023 15:28-0400 Mean blood pressure 103 mm[Hg] [facility]-19-2023 15:28-0400 Systolic blood pressure 136 mm[Hg] [facility] 02-19-2023 15:28-0400 Body temperature 97.7 [degF] [facility] 02-19-2023 15:00-0400 Blood Pressure Location [facility] 02-19-2023 15:00-0400 Hourly Rounding [facility] 02-19-2023 15:00-0400 [facility] 02-19-2023 15:00-0400 Respiratory rate 16 /min [facility] 02-19-2023 11:33-0400 Heart rate 83 /min [facility] 02-19-2023 11:33-0400 SaO2% (BldA) [Mass fraction] 93 % [facility] 02-19-2023 11:33-0400 Body temperature 98.42 [degF] [facility] 02-19-2023 11:33-0400 Diastolic blood pressure 92 mm[Hg] [facility] 02-19-2023 11:33-0400 Mean blood pressure 109 mm[Hg] [facility] 02-19-2023 11:33-0400 Systolic blood pressure 144 mm[Hg] [facility] 02-19-2023 08:18-0400 SaO2% (BldA) [Mass fraction] 93 % [facility] 02-19-2023 08:13-0400 Heart rate 56 /min gloria [facility] 02-19-2023 08:13-0400 Diastolic blood pressure 80 mm[Hg] [facility] 02-19-2023 08:13-0400 Mean blood pressure 94 mm[Hg] [facility] 02-19-2023 08:13-0400 Systolic blood pressure 121 mm[Hg] [facility] 02-19-2023 08:13-0400 Body temperature 97.52 [degF] [facility] 02-19-2023 08:00-0400 Respiratory rate 14 /min [facility]ld [facility] 02-18-2023 20:48-0400 gluc 173 mg/dL [facility] 02-18-2023 16:38-0400 Heart rate 65 /min [facility] 02-18-2023 15:30-0400 Mean blood pressure 101 mm[Hg] [facility] 02-18-2023 15:30-0400 Respiratory rate 24 /min [facility] 02-18-2023 15:21-0400 Mean blood pressure 92 mm[Hg] [facility] 02-18-2023 15:17-0400 Mean blood pressure 92 mm[Hg] [facility] 02-18-2023 08:50-0400 Heart rate 94 /min [facility] 02-18-2023 07:56-0400 Blood Pressure Location [facility] 02-18-2023 07:56-0400 Body temperature 98.6 [degF] [facility] 02-18-2023 07:56-0400 Diastolic blood pressure 62 mm[Hg] [facility] 02-18-2023 07:56-0400 Heart rate 91 /min [facility] 02-18-2023 07:56-0400 Respiratory rate 20 /min [place] [facility] 02-18-2023 07:56-0400 SaO2% (BldA) [Mass fraction] 90 % [place] [facility] 02-18-2023 07:56-0400 Systolic blood pressure 120 mm[Hg] [place] [facility] 12-10-2022 10:02-0400 Blood Pressure Location [place] [facility] 12-10-2022 10:02-0400 Body temperature 98.6 [degF] [place] [facility] 12-10-2022 10:02-0400 Diastolic blood pressure 72 mm[Hg] [place] [facility] 12-10-2022 10:02-0400 Heart rate 89 /min [place] [facility] 12-10-2022 10:02-0400 Respiratory rate 18 /min [place] [facility] 12-10-2022 10:02-0400 SaO2% (BldA) [Mass fraction] 97 % [place] [facility] 12-10-2022 10:02-0400 Systolic blood pressure 136 mm[Hg] [place] [facility] 12-05-2022 12:56-0400 Body weight 154.22 kg Juma Monk MD Work Phone: [facility] 12-05-2022 12:56-0400 Diastolic blood pressure 74 mm[Hg] Juma Monk MD Work Phone: [facility] 12-05-2022 12:56-0400 Heart rate 83 /min Juma Monk MD Work Phone: [facility] 12-05-2022 12:56-0400 Respiratory rate 18 /min Juma Monk MD Work Phone: [facility] 12-05-2022 12:56-0400 SaO2% (BldA) [Mass fraction] 95 % Juma Monk MD Work Phone: [facility] 12-05-2022 12:56-0400 Systolic blood pressure 118 mm[Hg] Juma Monk MD Work Phone: [facility] 12-02-2022 15:22-0400 Diastolic blood pressure 84 mm[Hg] [facility] 12-02-2022 15:22-0400 Heart rate 78 /min [facility] 12-02-2022 15:22-0400 Mean blood pressure 105 mm[Hg] [facility] 12-02-2022 15:22-0400 Respiratory rate 18 /min [facility] 12-02-2022 15:22-0400 SaO2% (BldA) [Mass fraction] 96 % [facility] 12-02-2022 15:22-0400 Systolic blood pressure 148 mm[Hg] [facility] 12-02-2022 12:08-0400 Body temperature 98.78 [degF] [facility] 12-02-2022 12:08-0400 Diastolic blood pressure 90 mm[Hg] [facility] 12-02-2022 12:08-0400 Heart rate 73 /min [facility] 12-02-2022 12:08-0400 Respiratory rate 18 /min [facility] 12-02-2022 12:08-0400 SaO2% (BldA) [Mass fraction] 95 % [facility] 12-02-2022 12:08-0400 Systolic blood pressure 152 mm[Hg] Arturo Alvarez [facility] 11-29-2022 09:53-0400 Diastolic blood pressure 66 mm[Hg] Pawan Laureano [facility] 11-29-2022 09:53-0400 Heart rate 85 /min Pawan Larsonumbar [facility] 11-29-2022 09:53-0400 Mean blood pressure 84 mm[Hg] Pawan Larsonumbar [facility] 11-29-2022 09:53-0400 Systolic blood pressure 121 mm[Hg] Pawan Lear [facility] 11-14-2022 13:23-0400 Body height 185.4 cm Juma Monk MD Work Phone: [facility] 11-14-2022 13:23-0400 Body weight 151.5 kg Juma Monk MD Work Phone: [facility] 11-14-2022 13:23-0400 Diastolic blood pressure 63 mm[Hg] Juma Monk MD Work Phone: [facility] 11-14-2022 13:23-0400 Heart rate 73 /min Juma Monk MD Work Phone: [facility] 11-14-2022 13:23-0400 Systolic blood pressure 121 mm[Hg] Juma Monk MD Work Phone: [facility] 11-08-2022 10:04-0400 Blood Pressure Location [facility] 11-08-2022 10:04-0400 Body temperature 97.7 [degF] [facility] [place] 11-08-2022 10:04-0400 Diastolic blood pressure 80 mm[Hg] [facility] 11-08-2022 10:04-0400 Heart rate 72 /min [facility] 11-08-2022 10:04-0400 Respiratory rate 18 /min [place] [facility] [facility] 11-08-2022 10:04-0400 SaO2% (BldA) [Mass fraction] 96 % [place] [facility] 11-08-2022 10:04-0400 Systolic blood pressure 130 mm[Hg] [place] [facility] 10-24-2022 08:59-0400 Heart rate 63 /min Pawan Zumbar [facility] 10-24-2022 08:59-0400 SaO2% (BldA) [Mass fraction] 95 % Pawan Zumbar [facility] 10-24-2022 08:59-0400 Diastolic blood pressure 77 mm[Hg] Pawan Zumbar [facility] 10-24-2022 08:59-0400 Mean blood pressure 90 mm[Hg] Pawan Zumbar [facility] 10-24-2022 08:59-0400 Systolic blood pressure 118 mm[Hg] Pawan Zumbar [facility] 10-24-2022 08:48-0400 Diastolic blood pressure 108 mm[Hg] Pawan Zumbar [facility] 10-24-2022 08:48-0400 Heart rate 66 /min Pawan Zumbar [facility] 10-24-2022 08:48-0400 Respiratory rate 18 /min Pawan Zumbar [facility] 10-24-2022 08:48-0400 SaO2% (BldA) [Mass fraction] 92 % Pawan Zumbar [facility] 10-24-2022 08:48-0400 Systolic blood pressure 153 mm[Hg] Pawan Zumbar [facility] 10-24-2022 07:25-0400 Heart rate 72 /min Pawan Zumbar [facility] 10-24-2022 07:25-0400 SaO2% (BldA) [Mass fraction] 93 % Pawan Zumbar [facility] 10-24-2022 07:25-0400 Diastolic blood pressure 67 mm[Hg] Pawan Zumbar [facility] 10-24-2022 07:25-0400 Mean blood pressure 81 mm[Hg] Pawan Zumbar [facility] 10-24-2022 07:25-0400 Systolic blood pressure 109 mm[Hg] Pawan Zumbar [facility] 10-24-2022 07:25-0400 Body temperature 97.7 [degF] Pawan Zumbar [facility] 10-24-2022 07:25-0400 Respiratory rate 16 /min Pawan Zumbar [facility] 09-27-2022 09:21-0500 Diastolic blood pressure 69 mm[Hg] Pawan Zumbar [facility] 09-27-2022 09:21-0500 Heart rate 75 /min Pawan Zumbar [facility] 09-27-2022 09:21-0500 Mean blood pressure 83 mm[Hg] Pawan Zumbar [facility] 09-27-2022 09:21-0500 Systolic blood pressure 111 mm[Hg] Pawan Laureano [facility] 09-14-2022 10:47-0500 Blood Pressure Location [facility] 09-14-2022 10:47-0500 Body temperature 98.96 [degF] [facility] 09-14-2022 10:47-0500 Diastolic blood pressure 74 mm[Hg] [facility] 09-14-2022 10:47-0500 Heart rate 73 /min [facility] 09-14-2022 10:47-0500 SaO2% (BldA) [Mass fraction] 93 % [facility] 09-14-2022 10:47-0500 Systolic blood pressure 130 mm[Hg] [facility] 08-28-2022 10:42-0500 Blood Pressure Location [facility] 08-28-2022 10:42-0500 Body temperature 97.7 [degF] [facility] 08-28-2022 10:42-0500 Diastolic blood pressure 72 mm[Hg] [place] [facility] 08-28-2022 10:42-0500 Heart rate 74 /min [place] [facility] 08-28-2022 10:42-0500 SaO2% (BldA) [Mass fraction] 94 % [place] [facility] 08-28-2022 10:42-0500 Systolic blood pressure 106 mm[Hg] [place] [facility] 08-23-2022 14:33-0500 Diastolic blood pressure 73 mm[Hg] Pawan Zumbar [facility] 08-23-2022 14:33-0500 Heart rate 67 /min Pawan Zumbar [facility] 08-23-2022 14:33-0500 Mean blood pressure 88 mm[Hg] Pawan Zumbar [facility] 08-23-2022 14:33-0500 Respiratory rate 20 /min Pawan Zumbar [facility] 08-23-2022 14:33-0500 Systolic blood pressure 118 mm[Hg] Pawan Zumbar [facility] 08-23-2022 07:44-0500 Blood Pressure Location [facility] 08-23-2022 07:44-0500 Body temperature 97.88 [degF] [place] [facility] 08-23-2022 07:44-0500 Diastolic blood pressure 78 mm[Hg] [place] [facility] 08-23-2022 07:44-0500 Heart rate 78 /min [facility] 08-23-2022 07:44-0500 Respiratory rate 16 /min [facility] 08-23-2022 07:44-0500 SaO2% (BldA) [Mass fraction] 94 % [place] [facility] 08-23-2022 07:44-0500 Systolic blood pressure 130 mm[Hg] [place] [facility] 08-01-2022 17:02-0500 Blood Pressure Location [facility] 08-01-2022 17:02-0500 Body temperature 97.88 [degF] [facility] 08-01-2022 17:02-0500 Diastolic blood pressure 70 mm[Hg] [facility] 08-01-2022 17:02-0500 Heart rate 85 /min [facility] 08-01-2022 17:02-0500 SaO2% (BldA) [Mass fraction] 92 % [facility] 08-01-2022 17:02-0500 Systolic blood pressure 120 mm[Hg] [facility] 06-22-2022 12:00-0500 Diastolic blood pressure 70 mm[Hg] [facility] 06-22-2022 12:00-0500 Mean blood pressure 90 mm[Hg] [facility] 06-22-2022 12:00-0500 Systolic blood pressure 130 mm[Hg] [facility] 06-22-2022 11:52-0500 Blood Pressure Location [facility] 06-22-2022 11:52-0500 Body temperature 98.24 [degF] [facility] 06-22-2022 11:52-0500 Diastolic blood pressure 98 mm[Hg] [facility] 06-22-2022 11:52-0500 Heart rate 73 /min [facility] 06-22-2022 11:52-0500 SaO2% (BldA) [Mass fraction] 95 % [facility] 06-22-2022 11:52-0500 Systolic blood pressure 140 mm[Hg] [facility] 06-08-2022 13:40-0400 Diastolic blood pressure 76 mm[Hg] Katrina Urena MD Work Phone: [facility] 06-08-2022 13:40-0400 Heart rate 77 /min Katrina Urena MD Work Phone: [facility] 06-08-2022 13:40-0400 Respiratory rate 16 /min Katrina Urena MD Work Phone: [facility] 06-08-2022 13:40-0400 SaO2% (BldA) [Mass fraction] 94 % Katrina Urena MD Work Phone: [facility] 06-08-2022 13:40-0400 Systolic blood pressure 119 mm[Hg] Katrina Urena MD Work Phone: [facility] 06-08-2022 13:03-0400 Body temperature 97.7 [degF] Katrina Urena MD Work Phone: [facility] 06-08-2022 12:10-0400 Body height 185.4 cm Katrina Urena MD Work Phone: [facility] 06-08-2022 12:10-0400 Body weight 144.24 kg Katrina Urena MD Work Phone: [facility] 02-22-2022 09:29-0400 Blood Pressure Location Gonzales DIAZL [facility] [place] 02-22-2022 09:29-0400 Diastolic blood pressure 76 mm[Hg] Gonzales NILL [facility] [place] 02-22-2022 09:29-0400 Heart rate 78 /min Gonzales NILL [facility] [place] 02-22-2022 09:29-0400 Respiratory rate 16 /min Gonzales NILL [facility] [place] 02-22-2022 09:29-0400 Systolic blood pressure 120 mm[Hg] Gonzales NILL [facility] [place] 02-20-2022 07:43-0400 Blood Pressure Location [place] [facility] 02-20-2022 07:43-0400 Body temperature 97.88 [degF] [place] [facility] 02-20-2022 07:43-0400 Diastolic blood pressure 72 mm[Hg] [place] [facility] 02-20-2022 07:43-0400 Heart rate 81 /min [place] [facility] 02-20-2022 07:43-0400 Respiratory rate 18 /min [place] [facility] 02-20-2022 07:43-0400 SaO2% (BldA) [Mass fraction] 94 % [place] [facility] 02-20-2022 07:43-0400 Systolic blood pressure 124 mm[Hg] [place] [facility] 12-14-2021 15:06-0400 Blood Pressure Location [place] [facility] 12-14-2021 15:06-0400 Body temperature 98.06 [degF] [place] [facility] 12-14-2021 15:06-0400 Diastolic blood pressure 72 mm[Hg] [place] [facility] 12-14-2021 15:06-0400 Heart rate 70 /min [place] [facility] 12-14-2021 15:06-0400 Respiratory rate 18 /min [place] [facility] 12-14-2021 15:06-0400 SaO2% (BldA) [Mass fraction] 93 % [place] [facility] 12-14-2021 15:06-0400 Systolic blood pressure 122 mm[Hg] [place] [facility] Encounters Encounter Date Encounter Type Care Provider Facility Start: 07-17-2023 End: 07-18-2023 ambulatory Basem Jose Alejandro. Murillo Facility[place] Start: 07-17-2023 End: 07-17-2023 Patient encounter procedure Basem Jose Alejandro. Murillo [facility] Start: 07-10-2023 End: 07-11-2023 ambulatory Basem G. Murlilo Facility:[facility] Start: 07-09-2023 End: 07-10-2023 ambulatory Mhd Yaser Al-Marrawi Facility:[facility] Start: 07-09-2023 End: 07-09-2023 Patient encounter procedure Mhd Yaser Al-Marrawi [facility] Start: 07-08-2023 End: 07-09-2023 ambulatory Mhd Yaser Al-Marrawi Facility:[facility] Start: 06-26-2023 End: 06-27-2023 ambulatory [place] GOODEN Facility:[facility] Start: 06-26-2023 End: 06-26-2023 Patient encounter procedure Matty Fieldsd [facility] Start: 06-19-2023 End: 06-19-2023 ambulatory Kalli Copsey Facility:[facility] Start: 06-11-2023 End: 06-12-2023 ambulatory KALLI COPSEY Facility:[facility] Start: 06-11-2023 End: 06-11-2023 Patient encounter procedure KALLI DALTON [facility] Start: 06-03-2023 End: 06-04-2023 ambulatory Mt A MAMTA Facility:[facility] Start: 06-03-2023 End: 06-03-2023 Patient encounter procedure Mt A MAMTA [facility] Start: 06-03-2023 End: 06-04-2023 ambulatory Mt A MAMTA Facility:[facility] Start: 06-03-2023 End: 06-03-2023 Patient encounter procedure Mt A MAMTA [facility] Start: 04-23-2023 End: 04-24-2023 ambulatory Osvaldo Garza [facility] [facility] [place] Start: 04-23-2023 End: 04-23-2023 Patient encounter procedure Bryce Lieberman [facility] Start: 04-10-2023 End: 04-11-2023 ambulatory Mhd Yaser Al-Marrawi Facility:[facility] Start: 04-10-2023 End: 04-10-2023 Patient encounter procedure Mhd Yaser Al-Marraalfonzo [facility] Start: 04-09-2023 End: 04-10-2023 ambulatory Mhd Yaser Al-Piedadrawi Facility:[facility] Start: 04-09-2023 End: 04-09-2023 Patient encounter procedure Mitch Amaro [facility] Start: 04-05-2023 End: 04-06-2023 ambulatory Mhd Yaser Al-Marrawi Facility:[facility] Start: 04-05-2023 End: 04-05-2023 Patient encounter procedure Mhd Yaser Al-Marraalfonzo [facility] Start: 03-29-2023 End: 03-30-2023 ambulatory Matty Murillo Facility:[facility] Start: 03-29-2023 End: 03-29-2023 Patient encounter procedure Matty Murillo [facility] Start: 03-13-2023 End: 03-13-2023 Emergency department patient visit Jordan Dean Facility:[facility] Start: 03-13-2023 End: 03-13-2023 Emergency department patient visit Jordan SJase Dean [facility] Start: 03-11-2023 End: 03-12-2023 ambulatory Ahkarld Angelito Facility:[facility] Start: 03-11-2023 End: 03-11-2023 Patient encounter procedure Mhd Lizethser Al-Piedadraalfonzo [facility] Start: 03-01-2023 End: 03-02-2023 ambulatory Kevin LOBO Facility:[facility] Start: 02-20-2023 End: 03-22-2023 ambulatory [facility]EN Facility:[id number] Start: 02-18-2023 End: 02-19-2023 Evaluation and management of inpatient Ahmad Moussawi Facility:[facility] Start: 02-18-2023 End: 02-19-2023 ambulatory [facility] A KAPLE Facility:[facility] Start: 02-18-2023 End: 02-19-2023 Evaluation and management of inpatient Kate Eaton [facility] Start: 02-18-2023 End: 02-18-2023 Patient encounter procedure Mt A KAPLE [facility] Start: 02-15-2023 End: 02-16-2023 ambulatory [facility] A KAPLE Facility:[facility] Start: 02-15-2023 End: 02-15-2023 Patient encounter procedure Mt A KAPLE [facility] Start: 01-25-2023 End: 01-26-2023 ambulatory MT A KAPLE Facility:[facility] Start: 01-25-2023 End: 01-25-2023 ambulatory MT A KAPLE Facility:[facility] Start: 01-23-2023 End: 01-24-2023 ambulatory [facility] Facility:[facility] Start: 12-17-2022 Telephone encounter Juma dupont MD Work Phone: Rheumatology Comment on above: Results Start: 12-10-2022 End: 12-11-2022 ambulatory [facility] A KAPLE Facility:[facility] Start: 12-10-2022 End: 12-10-2022 Patient encounter procedure [facility] A KAPLE [facility] Start: 12-05-2022 End: 12-05-2022 ambulatory MT A KAPLE Facility:[facility] Start: 12-05-2022 End: 12-05-2022 Subsequent hospital visit by physician Shelbie [facility] Comment on above: Bilateral low back p ain with sciatica, sciatica laterality unspecified, unspecified chronicity [M54.40] Start: 12-05-2022 End: 12-05-2022 Office outpatient visit 15 minutes Juma Lacho MD Work Phone: Rheumatology Comment on above: Bilateral low back p ain with sciatica, sciatica laterality unspecified, unspecified chronicity (Primary Dx) Start: 12-04-2022 Telephone encounter Juma dupont MD Work Phone: Rheumatology Comment on above: [facility] Start: 12-02-2022 End: 12-02-2022 Emergency department patient visit [facility] Facility:[facility] Start: 12-02-2022 End: 12-02-2022 Emergency department patient visit [facility] Start: 11-29-2022 End: 11-30-2022 ambulatory [facility] GOODEN Facility:[facility] Start: 11-29-2022 End: 11-29-2022 Pain Management Pawan Laureano [facility] Start: 11-19-2022 End: 11-20-2022 ambulatory Mt GOODEN Facility:[facility] Start: 11-19-2022 End: 11-19-2022 Patient encounter procedure Mt GOODEN [facility] Start: 11-14-2022 End: 11-14-2022 ambulatory JUMA MONK Facility:[facility] Start: 11-14-2022 End: 11-14-2022 Office outpatient new 45 minutes Juma Monk MD Work Phone: Rheumatology Comment on above: Chronic right-sided low back pain with right-sided sciatica (Primary Dx) Start: 11-08-2022 End: 11-09-2022 ambulatory Mt GOODEN Facility:[facility] Start: 11-08-2022 End: 11-08-2022 Patient encounter procedure Mt GOODEN [facility] Start: 10-24-2022 End: 10-25-2022 ambulatory Pawan Zumbar Facility:[facility] Start: 10-24-2022 End: 10-24-2022 Pain Management Pawan Zumbar [facility] Start: 09-27-2022 End: 09-28-2022 ambulatory Mt A MAMTA Facility:[facility] Start: 09-27-2022 End: 09-27-2022 Pain Management Pawan Zumbar [facility] Start: 09-18-2022 End: 09-19-2022 ambulatory Mt GOODEN Facility:[facility] Start: 09-18-2022 End: 09-18-2022 Patient encounter procedure Mt GOODEN [facility] Start: 09-14-2022 End: 09-15-2022 ambulatory Thao Duncan Facility:[facility] Start: 09-14-2022 End: 09-14-2022 Patient encounter procedure Thao Duncan [facility] Start: 09-10-2022 End: 09-11-2022 ambulatory Pawan Laureano Facility:[facility] Start: 09-10-2022 End: 09-10-2022 Patient encounter procedure Pawan Lear [facility] Start: 09-04-2022 ambulatory Thao Duncan Facili ty:[facility] Start: 08-28-2022 End: 08-29-2022 ambulatory Mt GOODEN Facility:[facility] Start: 08-28-2022 End: 08-28-2022 Patient encounter procedure Mt GOODEN [facility] Start: 08-28-2022 End: 08-28-2022 Well adult monitoring check done Mt GOODEN [facility] Start: 08-23-2022 End: 08-24-2022 ambulatory Thao Duncan Facility:[facility] Start: 08-23-2022 End: 08-23-2022 Pain Management Pawan Laureano [facility] Start: 08-23-2022 End: 08-24-2022 ambulatory Mt GOODEN Facility:[facility] Start: 08-23-2022 End: 08-23-2022 Patient encounter procedure Mt GOODEN [facility] Start: 08-01-2022 End: 08-02-2022 ambulatory Thao Duncan Facility:[facility] Start: 08-01-2022 End: 08-01-2022 Patient encounter procedure Thao Duncan [facility] Start: 06-22-2022 End: 06-22-2022 Patient encounter procedure Thao Duncan [facility] Start: 06-08-2022 End: 06-08-2022 ambulatory KATRINA URENA Facility:[facility] Start: 06-08-2022 End: 06-08-2022 Subsequent hospital visit by physician Katrina Urena MD Work Phone: Gastroenterology Comment on above: 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] Start: 04-26-2022 Telephone encounter Marguerite Potts RNcertified scrum master Comment on above: Appointment Confirma tion Start: 04-09-2022 End: 04-10-2022 ambulatory KATRINA URENA Facility:[facility] Start: 04-09-2022 End: 04-10-2022 ambulatory KATRINA URENA Facility:[facility] Start: 04-09-2022 End: 04-09-2022 Patient encounter procedure Katrina Urena MD Work Phone: Gastroenterology Comment on above: Mccarty's esophagus with dysplasia (Primary Dx) Start: 02-22-2022 End: 02-22-2022 Patient encounter procedure Gonzales ROBBINS [facility] [place] Start: 02-20-2022 End: 02-20-2022 Patient encounter procedure Mt GOODEN [facility] Start: 12-14-2021 End: 12-14-2021 Patient encounter procedure Mt GOODEN [facility] Start: 03-18-2021 End: 12-06-2021 [address]ur[address] [facility] GOODEN [facility] Procedures Date Procedure Procedure Detail Performing Clinician Start: 12-05-2022 Radiologic examination sacroiliac jnts <3 views Juma Monk MD Work Phone: Start: 10-24-2022 Epidural injection of lumbar spine using fluoroscopic guidance Pawan Laureano Comment on above: L5/S1 NOEMI-100% relief of pain in sacroi liac , but states pain above still. Start: 06-08-2022 Gluc bld gluc mntr dev cleared fda spec home use Sky Howe APRN.[facility] Work Phone: Start: 06-08-2022 Esophagogastroduodenoscopy transoral diagnostic Katrina Urena MD Work Phone: Start: 06-08-2022 Gluc bld gluc mntr dev cleared fda spec home use Sky Howe APRN.[employer] [employer] Work Phone: Start: 03-15-2022 Esophagogastroduodenoscopy gastric outlet reduction Thao Duncan Start: 08-12-2018 Esophagogastroduodenoscopy Gonzales ROBBINS Start: 12-27-2016 Myringotomy and insertion of tympanic ventilation tube Mt MAMTA Start: 01-19-2015 right knee arthroscopy with partial medial and lateral meniscectomy, chondroplasty medial compartment Mt GOODEN Colonoscopy Gonzales ROBBINS rotator cuff left shoulder 1 [facility] Comment on above: 2001 rotator cuff left shoulder 2 Pawan Laureano Comment on above: 2001 Skin (tissue) specimen (specimen) Thao Duncan Sphincterotomy anal division sphincter spx [facility] MAM[facility] Plan of Treatment Date Care Activity Detail Author Start: 04-09-2025 DIABETES SCREEN DIABETES SCREEN [facility] Start: 09-05-2023 ambulatory [facility] Start: 08-26-2023 ambulatory Facility:[facility] Start: 04-12-2023 Influenza vaccination INFLUENZA (#1) [facility] Start: 12-17-2022 End: 02-16-2023 C reactive protein [Mass/volume] in Serum or Plasma C-REACTIVE PROTEIN (CRP) Lab Routine Sacrococcygeal disorders, not elsewhere classified Expected: 12/17/2022, Expires: 02/16/2023 [facility] Work Phone: Comment on above: Expected: 12/17/2022 , Expires: 02/16/2023 Start: 12-17-2022 End: 02-16-2023 Erythrocyte sedimentation rate SED RATE WESTERGREN Lab Routine Sacrococcygeal disorders, not elsewhere classified Expected: 12/17/2022, Expires: 02/16/2023 [facility] Work Phone: Comment on above: Expected: 12/17/2022 , Expires: 02/16/2023 Start: 09-13-2022 COVID-19 VACCINE (5 - Moderna series) COVID-19 VACCINE (5 - Moderna series) [facility] Start: 08-12-2022 ADVANCE DIRECTIVE DISCUSSION ADVANCE DIRECTIVE DISCUSSION [facility] Start: 08-12-2022 DEPRESSION ASSESSMENT DEPRESSION ASS ESSMENT [facility] Start: 04-12-2022 Influenza vaccination INFLUENZA (#1) [facility] Start: 04-09-2022 End: 06-09-2022 Comprehensive metabolic 2000 panel - Serum or Plasma [facility] Work Phone: Comment on above: Expected: 04/09/2022 , Expires: 06/09/2022 Start: 10-12-2021 COVID-19 VACCINE (4 - Booster for Moderna series) COVID-19 VACCINE (4 - Booster for Moderna series) [facility] Start: 08-12-2021 ADVANCE DIRECTIVE DISCUSSION ADVANCE DIRECTIVE DISCUSSION [facility] Start: 08-12-2021 DEPRESSION ASSESSMENT DEPRESSION ASS ESSMENT [facility] Start: 01-27-2013 PNEUMOCOCCAL: 65+ (1 - PCV) PNEUMOCOCCAL: 65+ (1 - PCV) [facility] Start: 01-27-1998 SHINGRIX VACCINE (1 of 2) SHINGRIX VACCINE (1 of 2) [facility] Start: 01-27-1993 COLOGUARD (FIT-DNA) COLOGUARD (FIT-D NA) [facility] Start: 01-27-1993 Colonoscopy COLONOSCOPY [facility] Start: 01-27-1993 COLORECTAL CANCER SCREENING COLORECTAL CANCER SCREENING [facility] Start: 01-27-[address] COLONOGRAPHY [facility] Start: 01-27-1993 DIABETES SCREEN DIABETES SCREEN [facility] Start: 01-27-1993 FECAL OCCULT BLOOD FECAL OCCULT BLOO D [facility] Start: 01-27-1993 SIGMOIDOSCOPY SIGMOIDOSCOPY [facility] Start: 01-27-1983 LIPID SCREEN LIPID SCREEN [facility] Start: 01-27-1967 Urine microalbumin profile DTAP,TDAP,TD (1 - Tdap) [facility] Start: 01-27-1966 ANNUAL PCP TEAM PATTERN ATTENDANT CRISTO DISEASE VISIT ANNUAL PCP TEAM CHRONIC DISEASE VISIT [facility] Start: 01-27-1966 Hepatitis B surface antibody level LDL CHOLESTEROL [facility] Start: 01-27-1966 HEPATITIS C SCREENING HEPATITIS C SC SHEILA [facility] Start: 1960 Adult depression screening assessment DEPRESSION SCREENING [facility] Start: 01-27-1958 3 comp foot exam completed DIABETIC FOOT EXAM [facility] Start: 01-27-1958 Hepatitis B screening URINE AL BUMIN:CREATININE RATIO [facility] Start: 01-27-1958 Hepatitis C antibody , confirmatory test DILATED RETINAL EXAM [facility] Start: 01-27-1954 PNEUMOCOCCAL: 65+ (1 - PCV) PNEUMOCOCCAL: 65+ (1 - PCV) [facility] Start: 01-27-1953 Hemoglobin A1c/Hemoglobin.total in Blood HBA1C [facility] End: 04-09-2023 EGD DIAGNOSTIC EGD DIAGNOSTIC Endoscopy Routine Mccarty's esophagus with dysplasia 1 Occurrences starting 04/09/2022 until 04/09/2023 [facility] Work Phone: Comment on above: 1 Occurrences starti ng 04/09/2022 until 04/09/2023 End: 01-16-2024 Mri pelvis w/o contrast material MRI SACRUM/COCCYX WO IVCON Radiology Routine Sacrococcygeal disorders, not elsewhere classified 1 Occurrences starting 12/17/2022 until 01/16/2024 [facility] Work Phone: Comment on above: 1 Occurrences starti ng 12/17/2022 until 01/16/2024 End: 01-05-2024 Radiologic examination sacroiliac jnts <3 views XR SACROILIAC JOINTS 2V AP PELVIS/FERGUESON Radiology Routine Bilateral low back pain with sciatica, sciatica laterality unspecified, unspecified chronicity 1 Occurrences starting 12/05/2022 until 01/05/2024 [facility] Work Phone: Comment on above: 1 Occurrences starti ng 12/05/2022 until 01/05/2024 Radiologic examinati on sacroiliac jnts <3 views XR SACROILIAC JOINTS 2V AP PELVIS/FERGUESON Radiology Routine Bilateral low back pain with sciatica, sciatica laterality unspecified, unspecified chronicity 12/05/2022 1:53 PM EDT [facility] Work Phone: SURGICAL PATHOLOGY [facility] Work Phone: Comment on above: Release Upon Josuein g for 1 Occurrences starting 06/08/2022, 1 completed [facility] Immunizations Immunization Date Immunization Notes Care Provider Hyun rico 06-29-2023 canakinumab Mhfranky Leon [facility] Comment on above: Result Comment: RSV Vaccine [facility] 05-16-2023 influenza virus vacc ine, unspecified formulation Mt AMBERLYMARLENA [facility] 05-16-2023 SARS-CoV-2 (COVID-19 ) mRNA-1273 vaccine Mt GOODEN [facility] Comment on above: Result Comment: give n [facility] 05-13-2022 influenza virus vacc ine, unspecified formulation [facility] 05-13-2022 SARS-CoV-2 (COVID-19 ) mRNA-1273 vaccine [facility] 06-14-2021 COVID-19, mRNA, LNP- S, PF, 100 mcg or 50 mcg dose; Translations: [SARS-CoV-2 (COVID-19) mRNA-1273 vaccine] Mt GOODEN [facility] 05-19-2021 influenza virus vacc ine, unspecified formulation Mt GOODEN [facility] 01-09-2021 tetanus toxoid, redu hermilo diphtheria toxoid, and acellular pertussis vaccine, adsorbed; Translations: [Adacel (Tdap)] Mt GOODEN [facility] 10-19-2020 COVID-19, mRNA, LNP- S, PF, 100 mcg or 50 mcg dose; Translations: [Moderna COVID-19 Vaccine] Mt GOODEN [facility] Comment on above: Reason for Medicatio n: Other (see comment) 09-21-2020 COVID-19, mRNA, LNP- S, PF, 100 mcg or 50 mcg dose; Translations: [Moderna COVID-19 Vaccine] Mt GOODEN [facility] Comment on above: Reason for Medicatio n: Other (see comment) 05-17-2020 influenza virus vacc ine, unspecified formulation Mt GOODEN [facility] 06-11-2019 influenza virus vacc ine, live, attenuated, for intranasal use Mt GOODEN [facility] Comment on above: Result Comment: done at [facility] in [place] 06-01-2019 influenza virus vacc ine, unspecified formulation Mt GOODEN [facility] 05-29-2019 influenza virus vacc ine, unspecified formulation Mt GOODEN [facility] 07-22-2018 pneumococcal polysaccharide vaccine, 23 valent Mt GOODEN [facility] 07-22-2017 pneumococcal conjuga te vaccine, 13 valent Mt GOODEN [facility] 05-15-2016 influenza virus vacc ine, unspecified formulation Mt GOODEN [facility] 06-23-2014 tetanus toxoid, redu hermilo diphtheria toxoid, and acellular pertussis vaccine, adsorbed Mt GOODEN [facility] Payers Date Payer Category Payer Self-pay 2015 Medicare [id number] 2015 Private Health Insurance [employer] A ETNA MEDICARE SUPPLEMENT [id number] 2015-Present [phone] [address] [address] [place] [address] Indemnity [id number] 2013 Medicare MEDICARE MEDICAR E A AND B [id number] 2013-Present [phone] [place] [address] Medicare [id number] 2013 Medicare [id number] 1948 Unknown [id number] 2.16.840.1.769648.3.579 .2. 1948 Unknown [id number] 2.16.840.1.863525.3.579 .2.72 1948 Unknown [id number] 2.16.840.1.013887.3.579 .2. 1948 Unknown [id number] 2.16.840.1.803999.3.579 .2. 1948 Unknown [id number] 2.16.840.1.702172.3.579 .2 1948 Unknown [id number] 2.16.840.1.777662.3.579 .2. 1948 Unknown [id number] 2.16.840.1.202808.3.579 .2 1948 Unknown [id number] 2.16.840.1.248652.3.579 .2. 1948 Unknown [id number] 2.16.840.1.593241.3.579 .2. 1948 Unknown [id number] 2.16.840.1.874010.3.579 .2. 1948 Unknown [id number] 2.16.840.1.195599.3.579 .2. 1948 Unknown [id number] 2.16.840.1.758453.3.579 .2. 1948 Unknown [id number] 2.16.840.1.297615.3.579 .2 1948 Unknown [id number] 2.16.840.1.267801.3.579 .2. 1948 Unknown [id number] 2.16.840.1.614046.3.579 .2.727 1948 Unknown [id number] 2.16.840.1.426583.3.579 .2. 1948 Unknown [id number] 2.16.840.1.895271.3.579 .2. 1948 Unknown [id number] 2.16.840.1.452419.3.579 .2. 1948 Unknown [id number] 2.16.840.1.870700.3.579 .2. 1948 Unknown [id number] 2.16.840.1.388792.3.579 .2. 1948 Unknown [id number] 2.16.840.1.539968.3.579 .2. 1948 Unknown [id number] 2.16.840.1.893288.3.579 .2 1948 Unknown [id number] 2.16.840.1.142518.3.579 .2. 1948 Unknown [id number] 2.16.840.1.106145.3.579 .2 1948 Unknown [id number] 2.16.840.1.320852.3.579 .2. 1948 Unknown [id number] 2.16.840.1.665400.3.579 .2. 1948 Unknown [id number] 2.16.840.1.206303.3.579 .2. 1948 Unknown [id number] 2.16.840.1.355750.3.579 .2. 1948 Unknown [id number] 2.16.840.1.635133.3.579 .2. 1948 Unknown [id number] 2.16.840.1.379733.3.579 .2 1948 Unknown [id number] 2.16.840.1.457440.3.579 .2.727 1948 Unknown [id number] 2.16.840.1.076639.3.579 .2.727 1948 Unknown [id number] 2.16.840.1.385603.3.579 .2.727 1948 Unknown [id number] 2.16.840.1.824419.3.579 .2.727 1948 Unknown [id number] 2.16.840.1.076256.3.579 .2.72 1948 Unknown [id number] 2.16.840.1.798275.3.579 .2.727 1948 Unknown [id number] 2.16.840.1.131405.3.579 .2.727 1948 Unknown [id number] 2.16.840.1.538233.3.579 .2.72 Unknown [id number] 2.16.840.1.161855.3.579 .2.531 Social History Date Type Detail Facility Start: 09-18-2021 End: 06-03-2023 Tobacco smoking status Never smoked tobacco (finding) [facility] Comment on above: denies denies use Tobacco smoking status Never [facility] Comment on above: denies denies use Start: 09-09-2022 End: 12-05-2022 Sex Assigned At Male [facility] Tobacco smoking status PRIS Tobacco smoking consumption unknown [facility] Start: 1950 Sex Assigned At Not on file [facility] Start: 03-30-2022 End: 04-10-2022 Exposure to SARS-CoV-2 (event) Not sure [facility] Work Phone: Start: 06-08-2022 Tobacco use and exposure Smokeless tobacco non-user [facility] Start: 06-08-2022 End: 12-05-2022 Alcohol intake Current drinker of alcohol (finding) [facility] Start: 06-08-2022 Alcohol Comment occasional [facility] Tobacco [facility] Comment on above: Denies Tobacco smoking status No Smoking Status Entered [facility] Start: 09-09-2022 End: 12-05-2022 History of Social function [facility] Functional Status Date Assessment Result Facility 07-17-2023 Functional Status No [facility] 06-26-2023 Functional Status No [facility] 06-03-2023 Functional Status N/A [facility] 03-13-2023 Functional Status N/A [facility] 02-18-2023 Functional Status No [facility] 02-18-2023 Functional Status N/A [facility] 12-10-2022 Functional Status N/A [facility] 12-02-2022 Functional Status N/A [facility] 11-29-2022 Functional Status N/A [facility] 11-08-2022 Functional Status N/A [facility] 09-27-2022 Functional Status N/A [facility] 09-14-2022 Functional Status N/A [facility] 08-28-2022 Functional Status N/A [facility] 08-23-2022 Functional Status N/A [facility] 08-23-2022 Functional Status N/A [facility] 08-01-2022 Functional Status N/A [facility] 06-22-2022 Functional Status N/A [facility] 02-22-2022 Functional Status N/A [facility] [place] 02-20-2022 Functional Status N/A [facility] Clinical Notes 02-20-2022 to 06-03-2023 Note Date & Type Note Facility 06-03-2023 Hospital Discharg e instructions Patient Education 06/03/2023 14:32:49 Mccarty's Esophagus Mccarty's Esophagus Mccarty's esophagus occurs when the tissue that lines the esophagus changes or becomes damaged. The esophagus is the tube that carries food from the throat to the stomach. With Mccarty's esophagus, the cells that line the esophagus are replaced by cells that are similar to the lining of the intestines (intestinal metaplasia). Mccarty's esophagus itself may not cause any symptoms. However, many people who have Mccarty's esophagus also have gastroesophageal reflux disease (GERD), which may cause symptoms such as heartburn. Over time, a few people with this condition may develop cancer of the esophagus. Treatment may include medicines, procedures to destroy the abnormal cells, or surgery. What are the causes? The exact cause of this condition is not known. In some cases, the condition develops from damage to the lining of the esophagus caused by gastroesophageal reflux disease (GERD). GERD occurs when stomach acids flow up from the stomach into the esophagus. Frequent symptoms of GERD may cause intestinal metaplasia or cause cell changes (dysplasia). What increases the risk? You are more likely to develop this condition if you: Have GERD. Are male. Are of descent. Are obese. Are older than 50. Have a hiatal hernia. This is a condition in which part of your stomach bulges into your chest. Smoke. What are the signs or symptoms? People with Mccarty's esophagus often have no symptoms. However, many people with this condition also have GERD. Symptoms of GERD may include: Heartburn. Difficulty swallowing. Dry cough. How is this diagnosed? This condition may be diagnosed based on: Results of an upper gastrointestinal endoscopy. For this exam, a thin, flexible tube with a light and a camera on the end (endoscope) is passed down your esophagus. Your health care provider can view the inside of your esophagus during this procedure. Results of a biopsy. For this procedure, several tissue samples are removed (biopsy) from your esophagus to look at under a microscope. They are then checked for intestinal metaplasia or dysplasia. How is this treated? Treatment for this condition may include: Medicines (proton pump inhibitors, or PPIs) to decrease or stop GERD. Periodic endoscopic exams to make sure that cancer is not developing. A procedure or surgery for dysplasia. This may include: ?Removal or destruction of abnormal cells. ?Removal of part of the esophagus. Follow these instructions at home: Eating and drinking Eat more fruits and vegetables. Avoid fatty foods. Eat small, frequent meals instead of large meals. Avoid foods that cause heartburn. These foods include: ?Coffee and alcoholic drinks. ?Tomatoes and foods made with tomatoes. ?[place] or spicy foods. ?Chocolate and peppermint. Do not drink alcohol. General instructions Take zxph-tlr-obmmyhr and prescription medicines only as told by your health care provider. Do not use any products that contain nicotine or tobacco, such as cigarettes, e-cigarettes, and chewing tobacco. If you need help quitting, ask your health care provider. If you are being treated for GERD, make sure you take medicines and follow all instructions as told by your health care provider. Keep all follow-up visits as told by your health care provider. This is important. Contact a health care provider if: You have heartburn or GERD symptoms. You have difficulty swallowing. Get help right away if: You have chest pain. You are unable to swallow. You vomit blood or material that looks like coffee grounds. Your stool (feces) is bright red or dark. These symptoms may represent a serious problem that is an emergency. Do not wait to see if the symptoms will go away. Get medical help right away. Call your local emergency services (911 in the [place] Do not drive yourself to the hospital. Summary Mccarty's esophagus occurs when the tissue that lines the esophagus changes or becomes damaged. Mccarty's esophagus may be diagnosed with an upper gastrointestinal endoscopy and a biopsy. Treatment may include medicines, procedures to remove abnormal cells, or surgery. Follow your health care provider's instructions about what to eat and drink, what medicines to take, and when to call for help. This information is not intended to replace advice given to you by your health care provider. Make sure you discuss any questions you have with your health care provider. Document Revised: 10/15/2020 Document Reviewed: 10/15/2020 [employer] Patient Education 2022 [employer]. 06/03/2023 14:30:19 Edema, Zhoc-ad-Poys Edema Edema is when you have too much fluid in your body or under your skin. Edema may make your legs, feet, and ankles swell. Swelling often happens in looser tissues, such as around your eyes. This is a common condition. It gets more common as you get older. There are many possible causes of edema. These include: Eating too much salt (sodium). Being on your feet or sitting for a long time. Certain medical conditions, such as: ?. ?Heart failure. ?Liver disease. ?Kidney disease. ?Cancer. Hot weather may make edema worse. Edema is usually painless. Your skin may look swollen or shiny. Follow these instructions at home: Medicines Take uugd-orl-npzpsyj and prescription medicines only as told by your doctor. Your doctor may prescribe a medicine to help your body get rid of extra water (diuretic). Take this medicine if you are told to take it. Eating and drinking Eat a low-salt (low-sodium) diet as told by your doctor. Sometimes, eating less salt may reduce swelling. Depending on the cause of your swelling, you may need to limit how much fluid you drink (fluid restriction). General instructions Raise the injured area above the level of your heart while you are sitting or lying down. Do not sit still or stand for a long time. Do not wear tight clothes. Do not wear garters on your upper legs. Exercise your legs. This can help the swelling go down. Wear compression stockings as told by your doctor. It is important that these are the right size. These should be prescribed by your doctor to prevent possible injuries. If elastic bandages or wraps are recommended, use them as told by your doctor. Contact a doctor if: Treatment is not working. You have heart, liver, or kidney disease and have symptoms of edema. You have sudden and unexplained weight gain. Get help right away if: You have shortness of breath or chest pain. You cannot breathe when you lie down. You have pain, redness, or warmth in the swollen areas. You have heart, liver, or kidney disease and get edema all of a sudden. You have a fever and your symptoms get worse all of a sudden. These symptoms may be an emergency. Get help right away. Call 911. Do not wait to see if the symptoms will go away. Do not drive yourself to the hospital. Summary Edema is when you have too much fluid in your body or under your skin. Edema may make your legs, feet, and ankles swell. Swelling often happens in looser tissues, such as around your eyes. Raise the injured area above the level of your heart while you are sitting or lying down. Follow your doctor's instructions about diet and how much fluid you can drink. This information is not intended to replace advice given to you by your health care provider. Make sure you discuss any questions you have with your health care provider. Document Revised: 04/02/2022 Document Reviewed: 04/02/2022 [employer] Patient Education 2022 [employer]. Follow Up Care 03/01/2023 14:08:40 With:MAMTA LEE FAAFP, BEATRIZ Rebolledo, PED Address: [address] [place] [address]- When:Within 3 Month(s) [facility] 04-09-2023 Hospital Discharg e instructions Follow Up Care 04/09/2023 10:50:51 With:Azra Leon Address: [facility] [address] [place] [address] [phone] Business (1) When: Unknown Comments:Continue Eliquis 5 mg twice daily long-term due to multiple comorbidities and history of 2 separate events of pulmonary emboli one of them is unprovoked.Follow CBCD, CMp and D dimer every 6 months. THis can be done and monitored by his PCP Dr Soriano as per patient wishes.RTC with us only as needed. [facility] 03-13-2023 Evaluation + Plan note Extrac jaun from: Title:ED Note Author:Jordan Dean DO Date :03/13/23 Cellulitis (L03.90: Cellulit is, unspecified) Orders: cephalexin, 500 mg = 1 cap(s), Cap, Oral, Once, Stop date 03/13/23 4:15:00 EDT, STAT, Start date 03/13/23 4:15:00 EDT, 03/13/23 4:15:00 EDT cephalexin, 500 mg = 1 cap(s), Oral, q6hr, X 7 day(s), # 28 cap(s), Refills(s) 0, Pharmacy: [facility]/pharmacy #[id number], 185.4, cm, 03/13/23 2:24:00 EDT, Height/Length Dosing, 154.7, kg, 03/13/23 2:24:00 EDT, Weight Dosing morphine, 4 mg = 2 mL, Injection, IV Push, Once, Stop date 03/13/23 2:51:00 EDT, STAT, Start date 03/13/23 2:51:00 EDT, 03/13/23 2:51:00 EDT Automated Diff B-Type Natriuretic Peptide Basic Metabolic Panel Blood Culture Charcoal Blood Culture Charcoal C-Reactive Protein CBC w/ Auto Diff ECG 12 Lead Adult eGFR Lactic Acid Lactic Acid Troponin 0 Hr. Future Appointments Appointment Date:03/29/2023 09:45:00 AM Scheduled Provider: Location[facility] Appointment Type:[facility] Sleep Study Clinic Follow Up (FT) Appointment Date:04/09/2023 10:00:00 AM Scheduled Provider: [facility] Office Visit 30 (FT) Appointment Date:06/03/2023 01:20:00 PM Scheduled Provider:Mt GOODEN DO, FAAFP Location:[facility] Appointment Type: Open Appointment Date:08/26/2023 11:00:00 AM Scheduled Provider: Location:[facility] Appointment Type: Medicare Wellness Subsequent Diagnostic Tests Pending * Blood Culture Charcoal 03/13/23 * Blood Culture Charcoal 03/13/23 Future Scheduled Tests Laboratory* HgbA1c 11/08/22 * HgbA1c 05/23/22 * HgbA1c 08/23/22 * HgbA1c 11/21/22 * HgbA1c 09/10/22 * HgbA1c 11/21/22 * HgbA1c 05/23/23 * CBC w/ Auto Diff 04/09/23 * Comprehensive Metabolic Panel 04/09/23 * Hepatic Function Panel 11/08/22 * Hepatic Function Panel 09/10/22 * Lipid Panel 09/10/22 [facility]08-02-2023 Hospital Discharge instructions Patient Education 03/13/2023 04:42:12 Cellulitis, Adult Cellulitis, Adult Cellulitis is a skin infection. The infected area is usually warm, red, swollen, and tender. This condition occurs most often in the arms and lower legs. The infection can travel to the muscles, blood, and underlying tissue and become serious. It is very important to get treated for this condition. What are the causes? Cellulitis is caused by bacteria. The bacteria enter through a break in the skin, such as a cut, burn, insect bite, open sore, or crack. What increases the risk? This condition is more likely to occur in people who: Have a weak body defense system (immune system). Have open wounds on the skin, such as cuts, luciano, bites, and scrapes. Bacteria can enter the body through these open wounds. Are older than 60 years of age. Have diabetes. Have a type of long-lasting (chronic) liver disease (cirrhosis) or kidney disease. Are obese. Have a skin condition such as: ?Itchy rash (eczema). ?Slow movement of blood in the veins (venous stasis). ?Fluid buildup below the skin (edema). Have had radiation therapy. Use IV drugs. What are the signs or symptoms? Symptoms of this condition include: Redness, streaking, or spotting on the skin. Swollen area of the skin. Tenderness or pain when an area of the skin is touched. Warm skin. A fever. Chills. Blisters. How is this diagnosed? This condition is diagnosed based on a medical history and physical exam. You may also have tests, including: Blood tests. Imaging tests. How is this treated? Treatment for this condition may include: Medicines, such as antibiotic medicines or medicines to treat allergies (antihistamines). Supportive care, such as rest and application of cold or warm cloths (compresses) to the skin. Hospital care, if the condition is severe. The infection usually starts to get better within 1 2 days of treatment. Follow these instructions at home: Medicines Take kpfd-ihm-kbmkvcl and prescription medicines only as told by your health care provider. If you were prescribed an antibiotic medicine, take it as told by your health care provider. Do notstop taking the antibiotic even if you start to feel better. General instructions Drink enough fluid to keep your urine pale yellow. Do not touch or rub the infected area. Raise (elevate) the infected area above the level of your heart while you are sitting or lying down. Apply warm or cold compresses to the affected area as told by your health care provider. Keep all follow-up visits as told by your health care provider. This is important. These visits letyour health care provider make sure a more serious infection is not developing. Contact a health care provider if: You have a fever. Your symptoms do not begin to improve within 1 2 days of starting treatment. Your bone or joint underneath the infected area becomes painful after the skin has healed. Your infection returns in the same area or another area. You notice a swollen bump in the infected area. You develop new symptoms. You have a general ill feeling (malaise) with muscle aches and pains. Get help right away if: Your symptoms get worse. You feel very sleepy. You develop vomiting or diarrhea that persists. You notice red streaks coming from the infected area. Your red area gets larger or turns dark in color. These symptoms may represent a serious problem that is an emergency. Do not wait to see if the symptoms will go away. Get medical help right away. Call your local emergency services (911 in the [place] Do not drive yourself to the hospital. Summary Cellulitis is a skin infection. This condition occurs most often in the arms and lower legs. Treatment for this condition may include medicines, such as antibiotic medicines or antihistamines. Take ewht-crg-xvjbspl and prescription medicines only as told by your health care provider. If you were prescribed an antibiotic medicine, do not stop taking the antibiotic even if you start to feel better. Contact a health care provider if your symptoms do not begin to improve within 1 2 days of startingtreatment or your symptoms get worse. Keep all follow-up visits as told by your health care provider. This is important. These visits letyour health care provider make sure that a more serious infection is not developing. This information is not intended to replace advice given to you by your health care provider. Make sure you discuss any questions you have with your health care provider. Document Revised: 05/10/2022 Document Reviewed: 05/10/2022 [employer] Patient Education 2022 [employer]. 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 [facility]07-19-2023 Hospital Discharge instructions Follow Up Care 02/27/2023 09:23:46 With:Azra Leon Address: [facility] [address] [place] [phone]- [phone] Business (1) When: Unknown Comments:Thrombophilia panel labs today.Continue Eliquis 5 mg twice daily long- term as long as there is no major bleeding events.Return in 1 month with CBC differential and CMP. [facility]07-18-2023 Hospital Discharge instructions Follow Up Care 02/26/2023 10:50:00 With:Chidi ESPINAL, Matty Mills, PUL, JERILYN Address: [address] [place] [address] [facility] (Heart [facility]ascular) [place] [address]- When: Unknown Comments:after his testing is completed [facility]07-11-2023 Hospital Discharge instructions Patient Education 02/19/2023 15:40:03 Pulmonary Embolism Pulmonary Embolism A pulmonary embolism (PE) is a sudden blockage or decrease of blood flow in one or both lungs that happens when a clot travels into the arteries of the lung (pulmonary arteries). Most blockages come from a blood clot that forms in the vein of a leg or arm (deep vein thrombosis, DVT) and travels to the lungs. A clot is blood that has thickened into a gel or solid. PE is a dangerous and life-threatening condition that needs to be treated right away. What are the causes? This condition is usually caused by a blood clot that forms in a vein and moves to the lungs. In rare cases, it may be caused by air, fat, part of a tumor, or other tissue that moves through the veins and into the lungs. What increases the risk? The following factors may make you more likely to develop this condition: Experiencing a traumatic injury, such as breaking a hip or leg. Having: ?A spinal cord injury. ?Major surgery, especially hip or knee replacement, or surgery on parts of the nervous system or onthe abdomen. ?A stroke. ?A blood-clotting disease. ?Long-term (chronic) lung or heart disease. ?Cancer, especially if you are being treated with chemotherapy. ?A central venous catheter. Taking medicines that contain estrogen. These include control pills and hormone replacement therapy. Being: ?. ?In the period of time after your baby is delivered (). ?Older than age 60. ?Overweight. ?A smoker, especially if you have other risks. ?Not very active (sedentary), not being able to move at all, or spending long periods sitting, suchas travel over 6 hours. You are also at a greater risk if you have a leg in a cast or splint. What are the signs or symptoms? Symptoms of this condition usually start suddenly and include: Shortness of breath during activity or at rest. Coughing, coughing up blood, or coughing up bloody mucus. Chest pain, back pain, or shoulder blade pain that gets worse with deep breaths. Rapid or irregular heartbeat. Feeling light-headed or dizzy, or fainting. Feeling anxious. Pain and swelling in a leg. This is a symptom of DVT, which can lead to PE. How is this diagnosed? This condition may be diagnosed based on your medical history, a physical exam, and tests. Tests may include: Blood tests. An ECG (electrocardiogram) of the heart. A CT pulmonary angiogram. This test checks blood flow in and around your lungs. A ventilation perfusion scan, also called a lung VQ scan. This test measures air flow and blood flow to the lungs. An ultrasound to check for a DVT. How is this treated? Treatment for this condition depends on many factors, such as the cause of your PE, your risk for bleeding or developing more clots, and other medical conditions you may have. Treatment aims to stop blood clots from forming or growing larger. In some cases, treatment may be aimed at breaking apart or removing the blood clot. Treatment may include: Medicines, such as: ?Blood thinning medicines, also called anticoagulants, to stop clots from forming and growing. ?Medicines that break apart clots (fibrinolytics). Procedures, such as: ?Using a flexible tube to remove a blood clot (embolectomy) or to deliver medicine to destroy it (catheter-directed thrombolysis). ?Surgery to remove the clot (surgical embolectomy). This is rare. You may need a combination of immediate, long-term, and extended treatments. Your treatment may continue for several months (maintenance therapy) or longer depending on your medical conditions. You and your health care provider will work together to choose the treatment program that is best for you. Follow these instructions at home: Medicines Take lzqm-ilg-inngkaw and prescription medicines only as told by your health care provider. If you are taking blood thinners: ?Talk with your health care provider before you take any medicines that contain aspirin or NSAIDs, such as ibuprofen. These medicines increase your risk for dangerous bleeding. ?Take your medicine exactly as told, at the same time every day. ?Avoid activities that could cause injury or bruising, and follow instructions about how to preventfalls. ?Wear a medical alert bracelet or carry a card that lists what medicines you take. Understand what foods and drugs interact with any medicines that you are taking. General instructions Ask your health care provider when you may return to your normal activities. Avoid sitting or lyingfor a long time without moving. Maintain a healthy weight. Ask your health care provider what weight is healthy for you. Do not use any products that contain nicotine or tobacco. These products include cigarettes, chewing tobacco, and vaping devices, such as e-cigarettes. If you need help quitting, ask your health careprovider. Talk with your health care provider about any travel plans. It is important to make sure that you are still able to take your medicine while traveling. Keep all follow-up visits. This is important. Where to find more information [employer]: www.lung.org Centers for Disease Control and Prevention: www.cdc.gov Contact a health care provider if: You missed a dose of your blood thinner medicine. You have a fever. Get help right away if: You have: ?New or increased pain, swelling, warmth, or redness in an arm or leg. ?Shortness of breath that gets worse during activity or at rest. ?Worsening chest pain. ?A rapid or irregular heartbeat. ?A severe headache. ?Vision changes. ?A serious fall or accident, or you hit your head. ?Blood in your vomit, stool, or urine. ?A cut that will not stop bleeding. You cough up blood. You feel light-headed or dizzy, and that feeling does not go away. You cannot move your arms or legs. You are confused or have memory loss. These symptoms may represent a serious problem that is an emergency. Do not wait to see if the symptoms will go away. Get medical help right away. Call your local emergency services (911 in the [place] Do not drive yourself to the hospital. Summary A pulmonary embolism (PE) is a serious and potentially life-threatening condition. It happens when a blood clot from one part of the body travels to the arteries of the lung, causing a sudden blockage or decrease of blood flow to the lungs. This may result in shortness of breath, chest pain, dizziness, and fainting. Treatments for this condition usually include medicines to thin your blood (anticoagulants) or medicines to break apart blood clots. If you are given blood thinners, take your medicine exactly as told by your health care provider, at the same time every day. This is important. Understand what foods and drugs interact with any medicines that you are taking. If you have signs of PE or DVT, call your local emergency services (911 in the [place] This information is not intended to replace advice given to you by your health care provider. Make sure you discuss any questions you have with your health care provider. Document Revised: 06/30/2021 Document Reviewed: 06/30/2021 [employer] Patient Education 2022 [employer]. Follow Up Care 02/18/2023 08:49:44 With:[facility] Address:Unknown When: Unknown Comments:[facility] will contact you to set up a home visit. Thank you. With:Ralph Jennings Address: [address] [place] [address]- Business (1) When: Unknown Comments:Chronic Venous InsufPlease call Kike at Dr. Jennings's office in [place] to make a follow up appointment. The phone number is [phone]. Thank you. With:Matty Murillo Address: [address] [place] [address] [facility] Clinic ([facility]ascular) [place] [address]- Business (1) When: Unknown Comments:needs PFTs and sleep studyThe central scheduling department at [facility] will need to schedule the PFT's. Please contact Dr. Murillo's offic eto set up a time for your sleep study. Thank you. With:Mitch Amaro Address: [facility] [address] [place] [address]. [place] [address]- When: Unknown Comments:2nd DVTDr. Amaro office will contact you to set up an appointment. If you do not hear from themin 3 days, then call [phone] and asked for Oncology/ Hematology department. Thank you. With:Mt GOODEN Address: [address], [place] [address]- Business (1) When:03/01/2023 13:00:00 Comments:Your follow up appointment is with Dr. Lobo. Thank you. [facility]07-11-[address] HospitalComment on above:Result Comment: Electronically Signed By: Angelito ESPINAL, Kaet\.br\Date and Time Signed: 02/19/23 13:17 [id number] Evaluation + Plan noteExtracted from: Title:Discharge Note Author:Angelito ESPINAL, Kate Wilkins ate:02/19/23 Stable Discharged to - Home with family care Prescriptions aspirin 81 mg Chew Tab, 81 mg= 1 tab(s), Oral, Daily, 3 refills Eliquis 5 mg oral tablet, 2 tabs (10 mg) BID x 7 days then 1 tab bid, Oral, BID famotidine 40 mg Tab, 40 mg= 1 tab(s), Oral, Once a day (at bedtime), 3 refills Flonase 0.05 mg/inh [place], 2 spray(s), Nasal, Daily, 11 refills, Not taking hydrocortisone 2.5% Rectal Crm w/Appl, 1 lorenzo, Rectal, BID, Not taking Lasix 40 mg Tab, 40 mg= 1 tab(s), Oral, Daily, PRN, 5 refills lisinopril 10 mg Tab, 10 mg= 1 tab(s), Oral, Daily, 1 refills metformin 1000 mg Tab, 1000 mg= 1 tab(s), Oral, BID, 3 refills NuLYTELY Mendez oral powder for reconstitution, See Instructions, Not taking omeprazole 40 mg Cap-DR, 40 mg= 1 cap(s), Oral, Daily, 3 refills potassium chloride 20 mEq ER Tab, 20 mEq= 1 tab(s), Oral, Daily, PRN, 5 refills, Not taking Robaxin 500 mg Tab, 1000 mg= 2 tab(s), Oral, QID Home Tylenol 325 mg Tab, 1 tab(s), Oral, Once With When Contact Information Ralph Jennings [address] [place] [address]- Business (1) Additional Instructions: Chronic Venous Insuf Matty Murillo [address] [facility] [place] [address]- Business (1) Additional Instructions: needs PFTs and sleep study Mitch Amaro [facility] [address] [place] [address]- Additional Instructions: 2nd DVT [facility] In [address] [place] [address]- Business (1) Additional Instructions: Addendum by Angelito ESPINAL, [facility] ad on February 19, 2023 13:16:49 EDT Acute hypoxemic respiratory failure: Patient qualify for supplemental oxygen use. He will be set up with home supplemental oxygen. Etiology is likely exacerbation of underlying pulmonary hypertension. He does have Lasix at home. He was instructed to take it daily. He will follow-up outpatient with pulmonology for definitive management. Extracted from: Title:Admission H & P Author:Angelito ESPINAL, [facility] Date:02/18/23 73-year-old male with a medi deidra history significant for morbid obesity, AAA, 2 diabetes admitted for PE. Assessment/plan Acute hypoxemic respiratory failure Pulmonary embolism -no wbc, no findings on CT to suggest infiltrative process, may have a component of restrictive lung disease, needs out pt follow up w/pulmonology w/PFTs -Heparin GTT -Ultrasound lower limbs -Echo assess r-heart -Duo nebs PRN -I/S + Tele -Out pt follow up w/Heme/Onc -Will send Rx for Eliquis for pompa check -Consult vascular surgery for possible intervention HTN -Monitor blood pressures resume appropriate home medications -Tele Peripheral Vascular Disease -US lower limb to r/o DVT -Wound care -Out pt follow up w/Vascular Surgery Type 2 diabetes -Diabetic diet -Sliding scale insulin -Long-acting later date AAA: Patient follow-up Constipation: Chronic, bisacodyl, MiraLAX twice daily, KUB 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 Lifestyle modifications encouraged. Obesity is a pro-inflammatory state likely affecting above medical processes. Outpatient follow up. Chronic medical conditions Med rec and then resume appropriate home medications Code: Full Diet: DM Admit: Observation, likely <2 midnight stay Time: 75 minutes Plan: Plan was discussed with patient and family (if applicable) at bedside Extracted from: Title:ED Note Author:Kim Ledezma, Arturo Potter te:02/18/23 1. Pulmonary embolism (I26.9 9: Other pulmonary embolism without acute cor pulmonale) 2. Hypoxia (R09.02: Hypoxemia) Orders: heparin, 10,000 unit(s) = 1 mL, Injection, IV Push, Once, Stop date 02/18/23 12:05:00 EDT, STAT, Start date 02/18/23 12:05:00 EDT, Maximum 10,000 units. Use table #1 on Reference Text., 02/18/23 12:05:00 EDT heparin, Soln-IV, Misc, Once, Stop date 02/18/23 12:12:37 EDT, Physician Stop, 02/18/23 12:12:37 EDT heparin 25,000 unit(s) [14.451 unit/kg/hr] + Dextrose 5% in Water intravenous solution 500 mL, 500 mL, IV, 40 mL/hr, Routine, Start date 02/18/23 12:05:00 EDT, 12.5 hour(s), Total volume (mL): 500, Titrate per high intensity heparin protocol (Table 3 on reference text), 138.4 kg, Max INITIAL rate = 2000 unit(s)/hr (40 mL/hr). May go above this... Automated Diff B-Type Natriuretic Peptide Basic Metabolic Panel Blood Culture Charcoal Blood Culture Charcoal CBC w/ Auto Diff Continuous Pulse Oximetry CTA Chest ED Cardiac Monitoring ED Physician consult Hospitalist for continued care eGFR Extra SST Tube Magnesium Level Oxygen Therapy PT & PTT Saline Lock Insert Troponin 0 Hr. Troponin 3 Hr. Troponin 6 Hr. Troponin 9 Hr. XR Chest Single View Future Appointments Appointment Date:03/01/2023 01:00:00 PM Scheduled Provider:Kevin LOBO MD Location:[facility] Appointment Type: Hospital Follow Up w/TCM Appointment Date:08/26/2023 11:00:00 AM Scheduled Provider: Location:[facility] Appointment Type: Medicare Wellness Subsequent Future Scheduled Tests Laboratory* HgbA1c 11/08/22 * HgbA1c 02/20/22 * HgbA1c 05/23/22 * HgbA1c 08/23/22 * HgbA1c 11/21/22 * HgbA1c 09/10/22 * HgbA1c 11/21/22 * HgbA1c 05/23/23 * Microalbumin Level Urine 02/20/22 * PSA Screen, Total 02/20/22 * Basic Metabolic Panel 02/20/22 * CBC w/ Auto Diff 02/20/22 * Hepatic Function Panel 11/08/22 * Hepatic Function Panel 02/20/22 * Hepatic Function Panel 09/10/22 * Lipid Panel 02/20/22 * Lipid Panel 09/10/22 [facility]10[facility] [facility] on [facility]:Result Comment: Electronically Signed By: Angelito ESPINAL, Kate\.br\Date and Time Signed: 02/18/23 13:49 [id number] Hospital Discharge instructions Patient Education 02/18/2023 08:47:22 Heart Failure and Exercise Heart Failure and Exercise Heart failure is a condition in which the heart does not fill or pump enough blood and oxygen to support your body and its functions. Heart failure is a long-term (chronic) condition. Living with heart failure can be challenging. However, following your health care provider's instructions about a healthy lifestyle may help improve your symptoms. This includes choosing the right exercise plan. Doing daily physical activity is important after a diagnosis of heart failure. You may have some activity restrictions, so talk to your health care provider before doing any exercises. What are the benefits of exercise? Exercise may: Make your heart muscles stronger. Lower your blood pressure and cholesterol. Help you lose weight. Help your bones stay strong. Improve your blood circulation. Help your body use oxygen better. This relieves symptoms such as fatigue and shortness of breath. Help your mental health by lowering the risk of depression and other problems. Improve your quality of life. Decrease your chance of hospital admission for heart failure. What is an exercise plan? An exercise plan is a set of specific exercises and training activities. You will work with your health care provider to create the exercise plan that works for you. The plan may include: Different types of exercises and how to do them. Cardiac rehabilitation exercises. These are supervised programs that are designed to strengthen your heart. What are strengthening exercises? Strengthening exercises are a type of physical activity that involves using resistance to improve your muscle strength. Strengthening exercises usually have repetitive motions. These types of exercises can include: Lifting weights. Using weight machines. Using resistance tubes and bands. Using kettlebells. Using your body weight, such as doing push-ups or squats. What are balance exercises? Balance exercises are another type of physical activity. They strengthen the muscles of the back, abdomen, and pelvis (core muscles) and improve your balance. They can also lower your risk of falling. These types of exercises can include: Standing on one leg. Walking backward, sideways, and in a straight line. Standing up after sitting, without using your hands. Shifting your weight from one leg to the other. Lifting one leg in front of you. Doing samia chi. This is a type of exercise that uses slow movements and deep breathing. How can I increase my flexibility? Having better flexibility can keep you from falling. It can also lengthen your muscles, improve your range of motion, and help your joints. You can increase your flexibility by: Doing samia chi. Doing yoga. Stretching. How much aerobic exercise should I get? Aerobic exercise strengthens your breathing and circulation system and increases your body's use ofoxygen. This type of exercise causes your heart to beat faster while you are doing it. Examples of aerobic exercise include biking, walking, running, and swimming. Talk to your health care provider to find out how much aerobic exercise is safe for you. To do this type of exercise: Start exercising slowly, limiting the amount of time at first. You may need to start with 5 minutesof aerobic exercise every day. Slowly add more minutes until you can safely do at least 30 minutes of exercise at least 5 days a week. Summary Daily physical activity is important after a diagnosis of heart failure. Exercise can make your heart muscles stronger. It also offers other benefits that will improve yourhealth. Exercise can decrease your chance of hospital admission for heart failure. Talk to your health care provider before doing any exercises. This information is not intended to replace advice given to you by your health care provider. Make sure you discuss any questions you have with your health care provider. Document Revised: 03/13/2021 Document Reviewed: 03/13/2021 [employer] Patient Education 2022 [employer]. 02/18/2023 08:47:20 Heart Failure Exacerbation Heart Failure Exacerbation Heart failure is a condition in which the heart has trouble pumping blood. This may mean that the heart cannot pump enough blood out to the body or that the heart does not fill up with enough blood. When this happens, parts of the body do not get the blood and oxygen they need to function properly.This can cause symptoms such as breathing problems, tiredness (fatigue), swelling, and confusion. Heart failure exacerbation refers to heart failure symptoms that get worse. The symptoms may get worse suddenly or develop slowly over time. Heart failure exacerbation is a serious medical problem that should be treated right away. What are the causes? A heart failure exacerbation can be triggered by: Not taking your heart failure medicines correctly. Infections. Eating an unhealthy diet or a diet that is high in salt (sodium). Drinking too much fluid. Drinking alcohol. Using drugs, such as cocaine or methamphetamine. Not exercising. Other causes include: Other heart conditions such as an irregular heart rhythm (arrhythmia). Worsening heart valve function. Low blood counts (anemia). Other medical problems, such as kidney failure, thyroid problems, or diabetes mellitus. Sometimes the cause of the exacerbation is not known. What are the signs or symptoms? When heart failure symptoms suddenly or slowly get worse, this may be a sign of heart failure exacerbation. Symptoms of heart failure include: Shortness of breath during activity or exercise. A cough that does not go away. Swelling of the legs, ankles, feet, or abdomen. Losing or gaining weight for no reason. Trouble breathing when lying down. Increased heart rate or irregular heartbeat. Fatigue. Feeling light-headed, dizzy, or close to fainting. Nausea or lack of appetite. How is this diagnosed? This condition is diagnosed based on: Your symptoms and medical history. A physical exam. You may also have tests, including: Electrocardiogram (ECG). This test measures the electrical activity of your heart. Echocardiogram. This test uses sound waves to take a picture of your heart to see how well it works. Blood tests. Imaging tests, such as: ?Chest X-ray. ?MRI. ?Ultrasound. Stress test. This test examines how well your heart functions while you exercise on a treadmill or exercise bike. If you cannot exercise, medicines may be used to increase your heartbeat in place of exercise. Cardiac catheterization. During this test, a thin, flexible tube (catheter) is inserted into a blood vessel and threaded up to your heart. This test allows your health care provider to check the arteries that lead to your heart (coronary arteries). Right heart catheterization. During this test, the pressure in your heart is measured. How is this treated? This condition may be treated by: Adjusting your heart medicines. Maintaining a healthy lifestyle. This includes: ?Eating a heart-healthy diet that is low in sodium. ?Not using products that contain nicotine or tobacco. ?Regular exercise. ?Monitoring your fluid intake. ?Monitoring your weight and reporting changes to your health care provider. ?Not using alcohol or drugs. Treating sleep apnea, if you have this condition. Surgery. This may include: ?Placing a pacemaker to improve heart function (cardiac resynchronization therapy). ?Implanting a device that can correct heart rhythm problems (implantable cardioverter defibrillator). ?Implanting a pulmonary arterial pressure monitor to monitor your fluid balance. ?Connecting a device to your heart to help it pump blood (ventricular assist device). ?Heart transplant. Follow these instructions at home: Medicines Take bqxv-riu-uusabie and prescription medicines only as told by your health care provider. Do not stop taking your medicines or change the amount you take. If you are having problems or sideeffects from your medicines, talk to your health care provider. If you are having difficulty paying for your medicines, contact a 7th grade social studies teacher or your clinic. There are many programs to assist with medicine costs. Talk to your health care provider before starting any new medicines or supplements. Make sure your health care provider and pharmacist have a list of all the medicines you are taking. Eating and drinking Avoid drinking alcohol. Eat a heart-healthy diet as told by your health care provider. This includes: ?Plenty of fruits and vegetables. ?Lean proteins. ?Low-fat dairy. ?Whole grains. ?Foods that are low in sodium. Activity Exercise regularly as told by your health care provider. Balance exercise with rest. Ask your health care provider what activities are safe for you. This includes sexual activity, exercise, and daily tasks at home or work. Lifestyle Do not use any products that contain nicotine or tobacco. These products include cigarettes, chewing tobacco, and vaping devices, such as e-cigarettes. If you need help quitting, ask your health careprovider. Maintain a healthy weight. Ask your health care provider what weight is healthy for you. Consider joining a patient support group. This can help with emotional problems you may have, such as stress and anxiety. Do not use drugs. General instructions Stay up to date with vaccines. Talk to your health care provider about flu and pneumonia vaccines. Keep a list of medicines that you are taking. This may help in emergency situations. Keep all follow-up visits. This is important. Contact a health care provider if: You have questions about your medicines or you miss a dose. You feel anxious, depressed, or stressed. You develop swelling in your feet, ankles, legs, or abdomen. You develop a cough. You have a fever. You have trouble sleeping. You gain 2 3 lb (1 1.4 kg) in 24 hours or 5 lb (2.3 kg) in a week. Get help right away if: You have chest pain or pressure. You have shortness of breath while resting. You have severe fatigue. You are confused. You have severe dizziness. You have a rapid or irregular heartbeat. You have nausea or you vomit. You have a cough that is worse at night or you cannot lie flat. You have severe depression or sadness. These symptoms may represent a serious problem that is an emergency. Do not wait to see if the symptoms will go away. Get medical help right away. Call your local emergency services (911 in the [place] Do not drive yourself to the hospital. Summary When heart failure symptoms get worse, it is called heart failure exacerbation. Common causes of this condition include taking medicines incorrectly, infections, and drinking alcohol. This condition may be treated by adjusting medicines, maintaining a healthy lifestyle, or surgery. Do not stop taking your medicines or change the amount you take. If you are having problems or sideeffects from your medicines, talk to your health care provider. This information is not intended to replace advice given to you by your health care provider. Make sure you discuss any questions you have with your health care provider. Document Revised: 02/18/2021 Document Reviewed: 02/18/2021 [employer] Patient Education 2022 [employer]. Follow Up Care 08/23/2022 08:23:28 With:MAMTA LEE FAAFP, [facility] [place], FAM, PED Address: [address], [place] [address]- When:Within 1 Month(s) [facility] 06-16-2023 NoteHNO ID: [id number] Author: RT Katty(R) Service: ? Author Type: Technologist Type: Progress Notes Filed: 01/25/2023 8:35 AM Note Text: Radiology Service Progress Note PATIENT NAME: Jas Gonzalez DATE OF SERVICE: January 25, 2023 TIME: 8:35 AM PATIENT IDENTITY VERIFICATION COMPLETED USING TWO (2) IDENTIFIERS: Name and Date of confirmed by patient verbally. FALL SCREENING: Has the patient had 2 falls in the last year or 1 fall with injury or currently using an Ambulatory Assistive Device (Walker, Cane, Wheelchair, Crutches, etc.)? 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 Recommend MRI SI joint, will also obtain sed rate and CRP. He wants the orders faxed to . Advised to fax results back to me. Follow-up after the test results. [facility] Hospital Discharge instructions Patient Education 12/10/2022 10:35:03 Edema, Quvk-gf-Wytg Edema Edema is when you have too much fluid in your body or under your skin. Edema may make your legs, feet, and ankles swell. Swelling often happens in looser tissues, such as around your eyes. This is a common condition. It gets more common as you get older. There are many possible causes of edema. These include: Eating too much salt (sodium). Being on your feet or sitting for a long time. Certain medical conditions, such as: ?. ?Heart failure. ?Liver disease. ?Kidney disease. ?Cancer. Hot weather may make edema worse. Edema is usually painless. Your skin may look swollen or shiny. Follow these instructions at home: Medicines Take gqbw-fbk-atpimzi and prescription medicines only as told by your doctor. Your doctor may prescribe a medicine to help your body get rid of extra water (diuretic). Take thismedicine if you are told to take it. Eating and drinking Eat a low-salt (low-sodium) diet as told by your doctor. Sometimes, eating less salt may reduce swelling. Depending on the cause of your swelling, you may need to limit how much fluid you drink (fluid restriction). General instructions Raise the injured area above the level of your heart while you are sitting or lying down. Do not sit still or stand for a long time. Do not wear tight clothes. Do not wear garters on your upper legs. Exercise your legs. This can help the swelling go down. Wear compression stockings as told by your doctor. It is important that these are the right size. These should be prescribed by your doctor to prevent possible injuries. If elastic bandages or wraps are recommended, use them as told by your doctor. Contact a doctor if: Treatment is not working. You have heart, liver, or kidney disease and have symptoms of edema. You have sudden and unexplained weight gain. Get help right away if: You have shortness of breath or chest pain. You cannot breathe when you lie down. You have pain, redness, or warmth in the swollen areas. You have heart, liver, or kidney disease and get edema all of a sudden. You have a fever and your symptoms get worse all of a sudden. These symptoms may be an emergency. Get help right away. Call 911. Do not wait to see if the symptoms will go away. Do not drive yourself to the hospital. Summary Edema is when you have too much fluid in your body or under your skin. Edema may make your legs, feet, and ankles swell. Swelling often happens in looser tissues, such asaround your eyes. Raise the injured area above the level of your heart while you are sitting or lying down. Follow your doctor's instructions about diet and how much fluid you can drink. This information is not intended to replace advice given to you by your health care provider. Make sure you discuss any questions you have with your health care provider. Document Revised: 04/02/2022 Document Reviewed: 04/02/2022 [employer] Patient Education 2022 [employer]. Follow Up Care 11/26/2022 09:27:23 With:MAMTA LEE FAAFP, BEATRIZ [place], PED Address: [address], [facility] [place] [address]- When:Within 2 Month(s) [facility] 04-26-2023 NoteHNO ID: [id number] Author: RT Indu(R) Service: ? Author Type: Technologist Type: Progress Notes Filed: 12/05/2022 1:51 PM Note Text: Radiology Service Progress Note PATIENT NAME: Jas Gonzalez DATE OF SERVICE: December 05, 2022 TIME: 1:51 PM PATIENT IDENTITY VERIFICATION COMPLETED USING TWO (2) IDENTIFIERS: Name and Date of confirmed by patient verbally. FALL SCREENING: Has the patient had 2 falls in the last year or 1 fall with injury or currently using an Ambulatory Assistive Device (Walker, Cane, Wheelchair, Crutches, etc.)? No PATIENT GENDER DATA: Male PATIENT RELEVANT IMPLANT DATA REVIEWED: Yes RADIOLOGY DEPARTMENT: General X-ray: Exam(s) Completed: Pelvis X-Ray: sacroiliac joints PERIPHERAL IV DATA: Not applicable SIGNED BY: RT Indu(R) December 05, 2022 1:51 [facility]04-26-2023 NoteHNO ID: [id number] Author: Juma Monk MD Service: ? Author Type: Physician Type: Progress Notes Filed: 12/05/2022 1:29 PM Note Text: Rheumatology Outpatient Clinic Date of Service: 12/05/2022 Patient: Jas Gonzalez Medical Record: [id number] Primary Care Physician: No primary care provider on file. Referring Provider: THAO DUNCAN(HISTORICAL) Last Rheumatology visit: 11/14/2022 (with Juma Monk) Chief complaint: Follow Up (Denies any concerns/) History of Present Illness Jas Gonzalez is a 72 year old male with medical history of Mccarty's esophagus, GERD, obesity, diabetes mellitus, hiatal hernia, history of PE in 2019, BPH, BCC, SCC, nephrolithiasis, rib fracture after fall, presents on 12/05/2022 for an in-person visit for evaluation of Follow Up (Denies any concerns/). HISTORY OF PRESENT ILLNESS Seen as new patient on, per HPI Patient reports Right buttock pain that started about 6 months ago, can hardly move due to the pain. Denies any trauma or unusual activity. Pain is Triggered by certain movt, lying in bed makes it worse so sleeps in the chair. Had some back pain on and off since injury in 1970s while lifting weight, had slipped disc has been good and bad on and off. Reports that right buttock pain radiates to right thigh and leg with numbness on the sides of thigh and leg Pain is radiating to legs on and off Seen by pain mgt- had MRI and X rays - told to have arthritis?, patient came with disc, report not available in care everywhere. He had cortisone injection in his back that has helped some. PCP recommended rheumatology evaluation Pain is worst with movement and walking, EMS- none No joint swelling Denies history of inflammatory eye disease, inflammatory bowel disease, psoriasis, history of kidney disease/biopsy, peptic ulcer disease, pleural/pericardial effusion, CHF, CAD, CVA. During initial evaluation he did not have any evidence of synovitis, his pain does not seem to be inflammatory. He had MRI CD which was uploaded, more information requested from Ro[facility] Cedillo. Received fax, reviewed previous work-ups Previous work-ups MRI lumbar spine 08/2022 Impression-degenerative changes of the lumbar spine Moderate to severe intervertebral disc height loss at L5-S1. Multiple degenerative endplate changes with spurring, disc bulge with superimposed central disc protrusion. Mild facet arthropathy. Mild spinal canal stenosis. No neuroforaminal stenosis L2-L3 small disc bulge with posterior endplate spurring. Minimal retrolisthesis of L2 on L3. Moderate facet arthropathy. Mild spinal canal stenosis. No neuroforaminal stenosis Mentioned sacroiliitis however no imaging of SI joint INTERVAL HISTORY Today He is here for follow-up Discussed that his MRI lumbar spine did not show any signs of inflammatory arthritis however he has degenerative disc disease. He reports that he had injection in the back 3 weeks ago, next day he had some postural adjustment, with immediate relief in pain. Since then severe back pain has resolved. He does have some lower back pain on walking. Denies any peripheral joint pain, denies any joint swelling. Patient-Entered Data PAIN EVALUATION No data found in the last 1 encounters. PROMIS Assessments No flowsheet data found. RAPID 3 Torrez Activities of Daily Living No Data Dress self? - Get in and out of bed? - Walk outdoors? - Wash and dry body? - Get in and out of car? - RAPID 3 Disease Activity Weighed Score Levels: 0 - 1: Near Remission 1.3 - 2.0: Low Severity 2.3 - 4.0: Moderate Severity 4.3 - 10.0: High Severity No flowsheet data found. Review of Systems ROS RHEUMATOLOGY Fever: Denies Change in weight: Gained due to not being able to move Lymphadenopathy: Denies Mucosal ulcers: Denies Skin rash: Denies Photosensitive rash: Denies Alopecia: Denies Chest Pain: Denies Dyspnea: With activities since PE, also relates to weight gain Cough : Clear mucus Difficulty swallowing: Denies Nausea/vomiting: Denies Heartburn: Denies Abdominal Pain: Denies Diarrhea/constipation :Denies Blood in stool : Denies Dysuria/hematuria: Denies Headache: Denies change in vision: Denies Raynaud's: Denies Sicca: Denies Past Medical History PAST MEDICAL HISTORY Diagnosis Date Cancer (HCC) Diabetes (HCC) Past Surgical History No past surgical history on file. Allergy ALLERGIES Allergen Reactions Z Pack [Azithromyci* Hives sensitivity Family History Sister has RA The patient denies family history of SLE, Sarcoidosis, Scleroderma, IBD or Psoriasis. No family history on file. Social History Social History Tobacco Use Smoking status: Never Smokeless tobacco: Never Substance Use Topics Alcohol use: Yes Comment: occasional Drug use: Never Current Medications Current Outpatient Medications Medication Sig aspirin 81 mg chewable tablet (more content not included)...[facility]04-26-2023 History of Present illness Narrative* Juma Monk MD - 12/05/2022 1:00 PM EDT Images from the original note were not included. Rheumatology Outpatient Clinic Date of Service: 12/05/2022 Patient: Jas Gonzalez Medical Record: [id number] Primary Care Physician: No primary care provider on file. Referring Provider: THAO DUNCAN(HISTORICAL) Last Rheumatology visit: 11/14/2022 (with Juma Monk) Chief complaint: Follow Up (Denies any concerns/) History of Present Illness Jas Gonzalez is a 72 year old male with medical history of Mccarty's esophagus, GERD, obesity, diabetes mellitus, hiatal hernia, history of PE in 2019, BPH, BCC, SCC, nephrolithiasis, rib fracture after fall, presents on 12/05/2022 geraldine in-person visit for evaluation of Follow Up (Denies any concerns/). HISTORY OF PRESENT ILLNESS Seen as new patient on, per HPI Patient reports Right buttock pain that started about 6 months ago, can hardly move due to the pain. Denies any trauma or unusual activity. Pain is Triggered by certain movt, lying in bed makes it worse so sleeps in the chair. Had some back pain on and off since injury in 1970s while lifting weight, had slipped disc has beengood and bad on and off. Reports that right buttock pain radiates to right thigh and leg with numbness on the sides of thighand leg Pain is radiating to legs on and off Seen by pain mgt- had MRI and X rays - told to have arthritis?, patient came with disc, report not available in care everywhere. He had cortisone injection in his back that has helped some. PCP recommended rheumatology evaluation Pain is worst with movement and walking, EMS- none No joint swelling Denies history of inflammatory eye disease, inflammatory bowel disease, psoriasis, history of kidney disease/biopsy, peptic ulcer disease, pleural/pericardial effusion, CHF, CAD, CVA. During initial evaluation he did not have any evidence of synovitis, his pain does not seem to be inflammatory. He had MRI CD which was uploaded, more information requested from Roque Cedillo. Received fax, reviewed previous work-ups Previous work-ups MRI lumbar spine 08/2022 Impression-degenerative changes of the lumbar spine Moderate to severe intervertebral disc height loss at L5-S1. Multiple degenerative endplate changeswith spurring, disc bulge with superimposed central disc protrusion. Mild facet arthropathy. Mild spinal canal stenosis. No neuroforaminal stenosis L2-L3 small disc bulge with posterior endplate spurring. Minimal retrolisthesis of L2 on L3. Moderate facet arthropathy. Mild spinal canal stenosis. No neuroforaminal stenosis Mentioned sacroiliitis however no imaging of SI joint INTERVAL HISTORY Today He is here for follow-up Discussed that his MRI lumbar spine did not show any signs of inflammatory arthritis however he hasdegenerative disc disease. He reports that he had injection in the back 3 weeks ago, next day he had some postural adjustment,with immediate relief in pain. Since then severe back pain has resolved. He does have some lower back pain on walking. Denies any peripheral joint pain, denies any joint swelling. Patient-Entered Data PAIN EVALUATION No data found in the last 1 encounters. PROMIS Assessments No flowsheet data found. RAPID 3 Torrez Activities of Daily Living No Data Dress self? - Get in and out of bed? - Walk outdoors? - Wash and dry body? - Get in and out of car? - RAPID 3 Disease Activity Weighed Score Levels: 0 - 1: Near Remission 1.3 - 2.0: Low Severity 2.3 - 4.0: Moderate Severity 4.3 - 10.0: High Severity No flowsheet data found. Review of Systems ROS RHEUMATOLOGY Fever: Denies Change in weight: Gained due to not being able to move Lymphadenopathy: Denies Mucosal ulcers: Denies Skin rash: Denies Photosensitive rash: Denies Alopecia: Denies Chest Pain: Denies Dyspnea: With activities since PE, also relates to weight gain Cough : Clear mucus Difficulty swallowing: Denies Nausea/vomiting: Denies Heartburn: Denies Abdominal Pain: Denies Diarrhea/constipation :Denies Blood in stool : Denies Dysuria/hematuria: Denies Headache: Denies change in vision: Denies Raynaud's: Denies Sicca: Denies Past Medical History PAST MEDICAL HISTORY Diagnosis Date Cancer (HCC) Diabetes (HCC) Past Surgical History No past surgical history on file. Allergy ALLERGIES Allergen Reactions Z Pack [Azithromyci* Hives sensitivity Family History Sister has RA The patient denies family history of SLE, Sarcoidosis, Scleroderma, IBD or Psoriasis. No family history on file. Social History Social History Tobacco Use Smoking status: Never Smokeless tobacco: Never Substance Use Topics Alcohol use: Yes Comment: occasional Drug use: Never Current Medications Current Outpatient Medications Medication Sig aspirin 81 mg chewable tablet Take by mouth. pioglitazone (ACTOS) 45 mg tablet famotidine (PEPCID) 40 mg tablet Take 40 mg by mouth daily at bedtime. fluticasone (FLONASE) 50 mcg/actuation nasal spray Use in the nose. Fluorouracil 5 % cream apply to face and ears lisinopril (ZESTRIL) 10 mg tablet Take by mouth. meloxicam (MOBIC) 7.5 mg tablet Take 7.5 mg by mouth once daily. metFORMIN (GLUCOPHAGE) 1,000 mg tablet Take 1,000 mg by mouth once daily. omeprazole (PRILOSEC) 40 mg capsule Take 40 mg by mouth once daily. tiZANidine (ZANAFLEX) 2 mg tablet Take by mouth. No current facility-administered medications for this visit. Labs CBC Latest Ref Rng & Units 04/09/2022 WBC 3.70 - 11.00 k/uL 8.48 HEMOGLOBIN 13.0 - 17.0 g/dL 15.1 HEMATOCRIT 39.0 - 51.0 % 46.8 PLATELETS 150 - 400 k/uL 165 CMP Latest Ref Rng & Units 04/09/2022 SODIUM 136 - 144 mmol/L 139 POTASSIUM 3.7 - 5.1 mmol/L 4.2 CHLORIDE 97 - 105 mmol/L 100 CO2 22 - 30 mmol/L 27 GLUCOSE 74 - 99 mg/dL 99 BUN 9 - 24 mg/dL 16 CREATININE 0.73 - 1.22 mg/dL 0.92 CALCIUM, TOTAL 8.5 - 10.2 mg/dL 9.9 AST 14 - 40 U/L 32 ALT 10 - 54 U/L 33 ALKALINE PHOSPHATASE 38 - 113 U/L 70 Imaging Last XR Hand/Finger - Impression Only No resulted procedures found. Last MRI Hand - Impression Only No resulted procedures found. Last XR Chest - Impression Only No resulted procedures found. Last XR Cervical Spine - Impression Only No resulted procedures found. Health Maintenance Current Immunizations Never Reviewed Name Date COVID-19 vaccine, bivalent (MODERNA) 05/13/2022 Physical Exam VITAL SIGNS: BP 118/74 Pulse 83 Resp 18 Wt 340 lb (154.2kg) SpO2 95% GENERAL APPEARANCE: Well groomed, obese, In no distress. SKIN: No rash, thickening, nodules, calcifications, discoloration. EYES: PERRL, EOMI HENT: Normal external examination of the ears and nose, lips, oropharynx and tongue. No oropharyngeal lesions, exudate, or sores. RESPIRATORY: Normal respiratory effort. Clear to auscultation, no wheeze. CARDIOVASCULAR: regular, normal rate, normal heart sounds, no murmur or rub ABDOMEN: BS normal. No bruits, NEUROLOGIC: Alert and oriented x 3. Motor exam: Normal muscle strength grossly. Normal bulk and tone. MUSCULOSKELETAL EXAMINATION: Upper extremities: Elbows: Full ROM in flexion and extension. No swelling or effusion. No tenderness to palpation to the joint line, olecranon, medial or lateral epicondyles. Wrists: Full ROM in all wayne. No swelling or synovitis. No pain with pronation/supination. No tenderness to palpation Hands: Full ROM in flexion and extension. Full radiology special procedure tech strength. No swelling or synovitis along the MCPs, PIPs, and DIPs. No tenderness along the MCPs, PIPs, and DIPs. Lower extremities: Knees: Full ROM in flexion and extension. No swelling or effusion. No tenderness to palpation. Ankles: Full ROM in all wayne. No swelling or effusion. No tenderness to palpation along the jointline, medial/lateral malleolus, ATFL, PTFL, CFL, or Achilles Tendon. Feet: Full ROM in toe flexion/extension. No effusion. No tenderness to palpation. No evidence of MTP swelling. Spine-no tenderness, no deformity SI joint-no tenderness Diagnoses: (M54.40) Bilateral low back pain with sciatica, sciatica laterality unspecified, unspecified chronicity (primary encounter diagnosis) Impression and Plan 1. Chronic back pain with right-sided sciatica Patient with right-sided buttock pain radiating to right thigh and leg with numbness and tingling sensation His pain did not sound inflammatory, his severe back pain has now resolved after some postural adjustment, he also had steroid injection in his back He denies any other joint pain or swelling No history of uveitis, dactylitis, psoriasis, IBD Report of MRI and x-rays of lumbar spine reviewed-no evidence of inflammatory arthritis, has degenerative changes Outside records with a diagnosis of sacroiliitis however imaging on SI joint was not available To completely evaluate I will obtain radiograph SI joint. 2. Shortness of breath shortness of breath with activities Defer further evaluation to his PCP 3. Healthcare maintenance/Malignancy screening Defer to PCP Orders this visit: Office Visit on 12/05/22 XR SACROILIAC JOINTS 2V AP PELVIS/FERGUESON Return for We will schedule follow-up if radiograph SI joint shows sacroiliitis. I spent a total of 25 minutes on the date of the service which included preparing to see the patient, roto-gj-gqas patient care, completing clinical documentation, obtaining and/or reviewing separately obtained history, performing a medically appropriate examination, and counseling and educating the patient/family/caregiver. Juma Monk MD, [facility] Miscellaneous Notes* Telephone Encounter - Angie Lara MA - 12/04/2022 12:44 PM EDT Received outside records for patient. Placed in scanned documents. Angie Lara MA [facility] Hospital Discharge instructions Patient Education 12/02/2022 15:14:40 Cellulitis, Adult Cellulitis, Adult Cellulitis is a skin infection. The infected area is usually warm, red, swollen, and tender. This condition occurs most often in the arms and lower legs. The infection can travel to the muscles, blood, and underlying tissue and become serious. It is very important to get treated for this condition. What are the causes? Cellulitis is caused by bacteria. The bacteria enter through a break in the skin, such as a cut, burn, insect bite, open sore, or crack. What increases the risk? This condition is more likely to occur in people who: Have a weak body defense system (immune system). Have open wounds on the skin, such as cuts, luciano, bites, and scrapes. Bacteria can enter the body through these open wounds. Are older than 60 years of age. Have diabetes. Have a type of long-lasting (chronic) liver disease (cirrhosis) or kidney disease. Are obese. Have a skin condition such as: ?Itchy rash (eczema). ?Slow movement of blood in the veins (venous stasis). ?Fluid buildup below the skin (edema). Have had radiation therapy. Use IV drugs. What are the signs or symptoms? Symptoms of this condition include: Redness, streaking, or spotting on the skin. Swollen area of the skin. Tenderness or pain when an area of the skin is touched. Warm skin. A fever. Chills. Blisters. How is this diagnosed? This condition is diagnosed based on a medical history and physical exam. You may also have tests, including: Blood tests. Imaging tests. How is this treated? Treatment for this condition may include: Medicines, such as antibiotic medicines or medicines to treat allergies (antihistamines). Supportive care, such as rest and application of cold or warm cloths (compresses) to the skin. Hospital care, if the condition is severe. The infection usually starts to get better within 1 2 days of treatment. Follow these instructions at home: Medicines Take qxnv-man-kvvtwsd and prescription medicines only as told by your health care provider. If you were prescribed an antibiotic medicine, take it as told by your health care provider. Do notstop taking the antibiotic even if you start to feel better. General instructions Drink enough fluid to keep your urine pale yellow. Do not touch or rub the infected area. Raise (elevate) the infected area above the level of your heart while you are sitting or lying down. Apply warm or cold compresses to the affected area as told by your health care provider. Keep all follow-up visits as told by your health care provider. This is important. These visits letyour health care provider make sure a more serious infection is not developing. Contact a health care provider if: You have a fever. Your symptoms do not begin to improve within 1 2 days of starting treatment. Your bone or joint underneath the infected area becomes painful after the skin has healed. Your infection returns in the same area or another area. You notice a swollen bump in the infected area. You develop new symptoms. You have a general ill feeling (malaise) with muscle aches and pains. Get help right away if: Your symptoms get worse. You feel very sleepy. You develop vomiting or diarrhea that persists. You notice red streaks coming from the infected area. Your red area gets larger or turns dark in color. These symptoms may represent a serious problem that is an emergency. Do not wait to see if the symptoms will go away. Get medical help right away. Call your local emergency services (911 in the [place] Do not drive yourself to the hospital. Summary Cellulitis is a skin infection. This condition occurs most often in the arms and lower legs. Treatment for this condition may include medicines, such as antibiotic medicines or antihistamines. Take loiz-svh-footvku and prescription medicines only as told by your health care provider. If you were prescribed an antibiotic medicine, do not stop taking the antibiotic even if you start to feel better. Contact a health care provider if your symptoms do not begin to improve within 1 2 days of startingtreatment or your symptoms get worse. Keep all follow-up visits as told by your health care provider. This is important. These visits letyour health care provider make sure that a more serious infection is not developing. This information is not intended to replace advice given to you by your health care provider. Make sure you discuss any questions you have with your health care provider. Document Revised: 05/10/2022 Document Reviewed: 05/10/2022 [employer] Patient Education 2022 [employer]. 12/02/2022 15:14:40 Gastrointestinal Bleeding Gastrointestinal Bleeding Gastrointestinal (GI) bleeding is bleeding somewhere along the digestive tract, between the mouth and the anus. The digestive tract includes the mouth, esophagus, stomach, small intestine, large intestine, and anus. The large intestine is often called the colon. GI bleeding can be caused by various problems. The severity of these problems can be mild, serious,or life-threatening. If you have GI bleeding, you may find blood in your stools (feces), you may have black stools, or you may vomit blood. You may need to stay in the hospital if there is a lot of bleeding. What are the causes? This condition may be caused by: Inflammation, irritation, or swelling of the esophagus (esophagitis). The esophagus is part of the body that moves food from your mouth to your stomach. Swollen veins in the rectum (hemorrhoids). Tears in the anus (anal fissures). The tears are often caused by passing hard stool. Pouches that form on the colon and may bleed (diverticulosis). Inflammation in areas with diverticulosis. This is called diverticulitis.This can cause pain, fever, and bloody stools. Growths (polyps) or cancer. Colon cancer often starts out as precancerous polyps. Gastritis and ulcers. These may cause bleeding in the upper GI tract, near the stomach. What increases the risk? You are more likely to develop this condition if: You have an infection in your stomach from a type of bacteria called Helicobacter pylori. You take certain medicines, such as: ?NSAIDs. ?Aspirin. ?Selective serotonin reuptake inhibitors (SSRIs). ?Steroids. ?Antiplatelet or anticoagulant medicines. You smoke. You drink alcohol. What are the signs or symptoms? Common symptoms of this condition include: Bright red blood in your vomit, or vomit that looks like coffee grounds. Bloody, black, or tarry stools. ?Bleeding from the lower GI tract will usually cause red or maroon blood in the stools. ?Bleeding from the upper GI tract may cause black, tarry stools that are often stronger smelling than usual. ?In certain cases, if the bleeding is fast enough, the stools may be red. Pain or cramping in the abdomen. How is this diagnosed? This condition may be diagnosed based on: Your medical history and a physical exam. Various tests, such as: ?Blood tests. ?Stool tests. ?X-rays and other imaging tests. ?Esophagogastroduodenoscopy (EGD). In this test, a flexible, lighted tube is used to look at your esophagus, stomach, and small intestine. ?Colonoscopy. In this test, a flexible, lighted tube is used to look at your colon. How is this treated? Treatment for this condition depends on the cause of the bleeding. For example: For bleeding from the esophagus, stomach, small intestine, or colon, the health care provider may do a procedure to stop bleeding during your EGD or colonoscopy. Inflammation or infection of the colon can be treated with medicines. Certain rectal problems can be treated with creams, suppositories, or warm baths. Medicines may be given to reduce acid in your stomach. Surgery is sometimes done. Blood transfusions are sometimes needed if a lot of blood has been lost. If there is a lot of bleeding, you will need to stay in the hospital for observation. If bleeding is mild, you may be allowed to go home. Follow these instructions at home: Take ojoj-inl-hfvzkgh and prescription medicines only as told by your health care provider. Eat foods that are high in fiber, such as beans, whole grains, and fresh fruits and vegetables. This will help to keep your stools soft. Eating 1 3 prunes each day works well for many people. Drink enough fluid to keep your urine pale yellow. Keep all follow-up visits. This is important. Contact a health care provider if: Your symptoms do not improve with treatment. Get help right away if: Your bleeding does not stop. You feel light-headed or you faint. You feel weak. You have severe cramps in your back or abdomen. You pass large blood clots in your stool. Your symptoms are getting worse. You have chest pain or fast heartbeats. These symptoms may be an emergency. Get help right away. Call 911. Do not wait to see if the symptoms will go away. Do not drive yourself to the hospital. Summary Gastrointestinal (GI) bleeding is bleeding somewhere along the digestive tract, between the mouth and anus. GI bleeding can be caused by various problems. Treatment for this condition depends on the cause of the bleeding. Take pbyh-yth-jiddyea and prescription medicines only as told by your health care provider. Get help right away if your bleeding increases, your symptoms are getting worse, or you have new symptoms. Keep all follow-up visits. This is important. This information is not intended to replace advice given to you by your health care provider. Make sure you discuss any questions you have with your health care provider. Document Revised: 03/02/2022 Document Reviewed: 03/02/2022 [employer] Patient Education 2022 [employer]. Follow Up Care 12/02/2022 12:04:07 With:Joycelyn CHERRY Address: [address] [place] [address] Business (1) When:12/05/2022 15:14:25 Comments:Follow-up for 2 episodes of bright red blood per rectum With:Mt GOODEN Address: [address], [place] [address]- Business (1) When:12/05/2022 15:14:09 Comments:Follow-up for evaluation of cellulitis and buttock woundCall the office of your primary care doctorto arrange for follow-up within the above-stated timeframe. Follow-up with your primary care doctorabout this ED visit. You should review your labs, imaging, and diagnoses from this ED visit with your primary care physician. If you were prescribed medications you should discuss possible side-effects and drug interactions with your pharmacist. Call 911 or go to the nearest Emergency Department ifyou develop any new or worsening symptoms. [facility]04-23-2023 Evaluation + Plan noteExtracted from: Title:ED Note Author:Severo Mcnair PA-C e:12/02/22 Blood per rectum (K62.5: Hem orrhage of anus and rectum) Cellulitis (L03.90: Cellulitis, unspecified) Wound of buttock (S31.809A: Unspecified open wound of unspecified buttock, initial encounter) Orders: cephalexin, 500 mg = 1 cap(s), Oral, q8hr, # 30 cap(s), Refills(s) 0, Pharmacy: [facility]/pharmacy #[id number], 182, cm, 12/02/22 12:12:00 EDT, Height/Length Dosing, 150, kg, 12/02/22 12:12:00 EDT, Weight Dosing ABO/Rh ABO/Rh History Check Antibody Screen Automated Diff Basic Metabolic Panel Blood Bank ID# CBC w/ Auto Diff ECG 12 Lead Adult eGFR Hepatic Function Panel PT & PTT Stool Occult Blood Future Appointments Appointment Date:12/10/2022 10:00:00 AM Scheduled Provider:Mt GOODEN DO, FAAFP Location:[facility] Appointment Type: Open Appointment Date:02/18/2023 08:00:00 AM Scheduled Provider:Mt GOODEN DO, FAAFP Location:[facility] Appointment Type: Open Appointment Date:08/26/2023 11:00:00 AM Scheduled Provider: Location:[facility] Appointment Type: Medicare Wellness Subsequent Future Scheduled Tests Laboratory* HgbA1c 11/21/21 * HgbA1c 11/08/22 * HgbA1c 02/20/22 * HgbA1c 05/23/22 * HgbA1c 08/23/22 * HgbA1c 11/21/22 * HgbA1c 09/10/22 * HgbA1c 11/21/22 * HgbA1c 02/20/23 * HgbA1c 05/23/23 * Microalbumin Level Urine 02/20/22 * PSA Screen, Total 02/20/22 * Basic Metabolic Panel 02/20/22 * CBC w/ Auto Diff 02/20/22 * Hepatic Function Panel 11/08/22 * Hepatic Function Panel 02/20/22 * Hepatic Function Panel 09/10/22 * Lipid Panel 02/20/22 * Lipid Panel 09/10/22 [facility]04-20-2023 Evaluation + Plan noteExtracted from: Title:Clinical Document Author:Pepito Laureano MD Date:11/29/22 Chief complaint: Low back an d leg pain History of present illness: This is a 72-year-old male here for a chief complaint of low back and leg pain. The patient rates the pain as a 3 out of 10. At his last visit he underwent an L5-S1 epidural steroid injection. He reports 100% relief of the hip and leg pain. His standing and walking have improved as a result. He still has some aching pain in the lower back on both sides but reports this is manageable. He denies new neurologic symptoms or issues with bladder or bowel control. He is also doing the home exercises for his back and he thinks it has not helped a lot as well. The patient's past medical, surgical, and social history along with medications and allergies were reviewed. Review of systems was done on 10 systems Physical examination: General: Pleasant white male in no acute distress. Patient appears well- nourished. Vital signs stable Head exam: Head is normocephalic and external ears are normal Neck exam: No tenderness Cardiovascular exam: No signs of poor perfusion and no peripheral edema Respiratory exam: Breathing is unlabored and there is no wheezing present Abdomen exam: Abdomen soft and nondistended Back exam: No tenderness Musculoskeletal exam: Strength 5 out of 5. Muscle tone is normal. Neurologic exam: Sensation is intact. Reflexes are diminished but symmetric. Psych exam: Affect is appropriate. Alert and oriented Skin exam: No lesions Assessment: The patient's signs and symptoms are consistent with lumbar stenosis with neurogenic claudication, lumbosacral radiculopathy, and lumbosacral spondylosis. We reviewed the patient's imaging. He has had complete relief of his radicular symptoms following the lumbar epidural injection. His residual symptoms are consistent with lumbosacral spondylosis and facet arthropathy. I did review his MRI again and he does have spondylosis and facet arthropathy at the L4-5 and L5-S1 levels. Currently those symptoms are mild Oswestry disability index score was 16 out of 50. Prior to the procedure it was 22 out of 50 OARRS report was reviewed and was appropriate Plan: I addressed options with him. He is doing a lot better both in terms of reduced pain and function. I think we can hold off on further interventional treatments for now. If the radicular pain were to return we could repeat a lumbar epidural steroid injection as needed. If the facet mediated pain were to intensify we could consider a trial of medial branch blocks. Currently I do not think his symptoms warrant either of those and he was in agreement. I advised him to continue with his home exercises for his back. We discussed the potential risks and benefits of this plan and the patient was in agreement to proceed. I will see the patient for follow-up on an as-needed basis for repeat evaluation. Future Appointments Appointment Date:12/10/2022 10:00:00 AM Scheduled Provider:Mt GOODEN DO, FAAFP Location:[facility] Appointment Type: Open Appointment Date:02/18/2023 08:00:00 AM Scheduled Provider:Mt GOODEN DO, FAAFP Location:[facility] Appointment Type: Open Appointment Date:08/26/2023 11:00:00 AM Scheduled Provider: Location:[facility] Appointment Type:FM Medicare Wellness Subsequent Future Scheduled Tests Laboratory* HgbA1c 11/21/21 * HgbA1c 11/08/22 * HgbA1c 02/20/22 * HgbA1c 05/23/22 * HgbA1c 08/23/22 * HgbA1c 11/21/22 * HgbA1c 09/10/22 * HgbA1c 11/21/22 * HgbA1c 02/20/23 * HgbA1c 05/23/23 * Microalbumin Level Urine 02/20/22 * PSA Screen, Total 02/20/22 * Basic Metabolic Panel 02/20/22 * CBC w/ Auto Diff 02/20/22 * Hepatic Function Panel 11/08/22 * Hepatic Function Panel 02/20/22 * Hepatic Function Panel 09/10/22 * Lipid Panel 02/20/22 * Lipid Panel 09/10/22 [facility]04-05-2023 NoteHNO ID: [id number] Author: Juma Monk MD Service: ? Author Type: Physician Type: Progress Notes Filed: 11/16/2022 9:45 AM Note Text: Rheumatology Outpatient Clinic Date of Service: 11/14/2022 Patient: Jas Gonzalez Medical Record: [id number] Primary Care Physician: No primary care provider on file. Referring Provider: THAO DUNCAN(HISTORICAL) Last Rheumatology visit: 11/14/2022 (with Juma Monk) Chief complaint: Consult (Dx oa. /) Consultation requested by Thao Duncan for an opinion regarding evaluate for back pain. My final recommendations will be communicated back to the requesting physician by way of shared Medical record or letter to requesting physician via US mail. History of Present Illness Jas Gonzalez is a 72 year old male with medical history of Mccarty's esophagus, GERD, obesity, diabetes mellitus, hiatal hernia, history of PE in 2019, BPH, BCC, SCC, nephrolithiasis, rib fracture after fall, presents on 11/14/2022 for an in-person visit for evaluation of Consult (Dx oa. /). HISTORY OF PRESENT ILLNESS Patient reports Right buttock pain that started about 6 months ago, can hardly move due to the pain. Denies any trauma or unusual activity. Pain is Triggered by certain movt, lying in bed makes it worse so sleeps in the chair. Had some back pain on and off since injury in 1970s while lifting weight, had slipped disc has been good and bad on and off. Reports that right buttock pain radiates to right thigh and leg with numbness on the sides of thigh and leg Pain is radiating to legs on and off Seen by pain mgt- had MRI and X rays - told to have arthritis?, patient came with disc, report not available in care everywhere. He had cortisone injection in his back that has helped some. PCP recommended rheumatology evaluation Pain is worst with movement and walking, EMS- none No joint swelling Denies history of inflammatory eye disease, inflammatory bowel disease, psoriasis, history of kidney disease/biopsy, peptic ulcer disease, pleural/pericardial effusion, CHF, CAD, CVA. Patient-Entered Data PAIN EVALUATION No data found in the last 1 encounters. PROMIS Assessments No flowsheet data found. RAPID 3 Torrez Activities of Daily Living No Data Dress self? - Get in and out of bed? - Walk outdoors? - Wash and dry body? - Get in and out of car? - RAPID 3 Disease Activity Weighed Score Levels: 0 - 1: Near Remission 1.3 - 2.0: Low Severity 2.3 - 4.0: Moderate Severity 4.3 - 10.0: High Severity No flowsheet data found. Review of Systems ROS RHEUMATOLOGY Fever: Denies Change in weight: Gained due to not being able to move Lymphadenopathy: Denies Mucosal ulcers: Denies Skin rash: Denies Photosensitive rash: Denies Alopecia: Denies Chest Pain: Denies Dyspnea: With activities since PE, also relates to weight gain Cough : Clear mucus Difficulty swallowing: Denies Nausea/vomiting: Denies Heartburn: Denies Abdominal Pain: Denies Diarrhea/constipation :Denies Blood in stool : Denies Dysuria/hematuria: Denies Headache: Denies change in vision: Denies Raynaud's: Denies Sicca: Denies Past Medical History PAST MEDICAL HISTORY Diagnosis Date Cancer (HCC) Diabetes (HCC) Past Surgical History No past surgical history on file. Allergy ALLERGIES Allergen Reactions Z Pack [Azithromyci* Hives sensitivity Family History Sister has RA The patient denies family history of SLE, Sarcoidosis, Scleroderma, IBD or Psoriasis. No family history on file. Social History Social History Tobacco Use Smoking status: Never Smokeless tobacco: Never Substance Use Topics Alcohol use: Yes Comment: occasional Drug use: Never Current Medications Current Outpatient Medications Medication Sig aspirin 81 mg chewable tablet Take by mouth. pioglitazone (ACTOS) 45 mg tablet famotidine (PEPCID) 40 mg tablet Take 40 mg by mouth daily at bedtime. fluticasone (FLONASE) 50 mcg/actuation nasal spray Use in the nose. Fluorouracil 5 % cream apply to face and ears lisinopril (ZESTRIL) 10 mg tablet Take by mouth. meloxicam (MOBIC) 7.5 mg tablet Take 7.5 mg by mouth once daily. metFORMIN (GLUCOPHAGE) 1,000 mg tablet Take 1,000 mg by mouth once daily. omeprazole (PRILOSEC) 40 mg capsule Take 40 mg by mouth once daily. tiZANidine (ZANAFLEX) 2 mg tablet Take by mouth. No current facility-administered medications for this visit. Labs CBC Latest Ref Rng AND Units 04/09/2022 WBC 3.70 - 11.00 k/uL 8.48 HEMOGLOBIN 13.0 - 17.0 g/dL 15.1 HEMATOCRIT 39.0 - 51.0 % 46.8 PLATELETS 150 - 400 k/uL 165 CMP Latest Ref Rng AND Units 04/09/2022 SODIUM 136 - 144 mmol/L 139 POTASSIUM 3.7 - 5.1 mmol/L 4.2 CHLORIDE 97 - 105 mmol/L 100 CO2 22 - 30 mmol/L 27 GLUCOSE 74 - 99 mg/dL 99 BUN 9 - 24 mg/dL 16 CREATININE 0.73 - 1.22 mg/dL 0.92 CALCIUM, TOTAL 8.5 - 10.2 mg/dL 9.9 AST 14 - 40 U/L 32 ALT 10 - 54 U/L 33 ALKAL (more content not included)...[facility]04-05-2023 History of Present illness Narrative* Juma Monk MD - 11/14/2022 1:30 PM EDT Images from the original note were not included. Rheumatology Outpatient Clinic Date of Service: 11/14/2022 Patient: Jas Gonzalez Medical Record: [id number] Primary Care Physician: No primary care provider on file. Referring Provider: THAO DUNCAN(HISTORICAL) Last Rheumatology visit: 11/14/2022 (with Juma Monk) Chief complaint: Consult (Dx oa. /) Consultation requested by Thao Duncan for an opinion regarding evaluate for back pain. My final recommendations will be communicated back to the requesting physician by way of shared Medical record or letter to requesting physician via US mail. History of Present Illness Jas Gonzalez is a 72 year old male with medical history of Mccarty's esophagus, GERD, obesity, diabetes mellitus, hiatal hernia, history of PE in 2019, BPH, BCC, SCC, nephrolithiasis, rib fracture after fall, presents on 11/14/2022 for an in-person visit for evaluation of Consult (Dx oa. /). HISTORY OF PRESENT ILLNESS Patient reports Right buttock pain that started about 6 months ago, can hardly move due to the pain. Denies any trauma or unusual activity. Pain is Triggered by certain movt, lying in bed makes it worse so sleeps in the chair. Had some back pain on and off since injury in 1970s while lifting weight, had slipped disc has beengood and bad on and off. Reports that right buttock pain radiates to right thigh and leg with numbness on the sides of thighand leg Pain is radiating to legs on and off Seen by pain mgt- had MRI and X rays - told to have arthritis?, patient came with disc, report not available in care everywhere. He had cortisone injection in his back that has helped some. PCP recommended rheumatology evaluation Pain is worst with movement and walking, EMS- none No joint swelling Denies history of inflammatory eye disease, inflammatory bowel disease, psoriasis, history of kidney disease/biopsy, peptic ulcer disease, pleural/pericardial effusion, CHF, CAD, CVA. Patient-Entered Data PAIN EVALUATION No data found in the last 1 encounters. PROMIS Assessments No flowsheet data found. RAPID 3 Torrez Activities of Daily Living No Data Dress self? - Get in and out of bed? - Walk outdoors? - Wash and dry body? - Get in and out of car? - RAPID 3 Disease Activity Weighed Score Levels: 0 - 1: Near Remission 1.3 - 2.0: Low Severity 2.3 - 4.0: Moderate Severity 4.3 - 10.0: High Severity No flowsheet data found. Review of Systems ROS RHEUMATOLOGY Fever: Denies Change in weight: Gained due to not being able to move Lymphadenopathy: Denies Mucosal ulcers: Denies Skin rash: Denies Photosensitive rash: Denies Alopecia: Denies Chest Pain: Denies Dyspnea: With activities since PE, also relates to weight gain Cough : Clear mucus Difficulty swallowing: Denies Nausea/vomiting: Denies Heartburn: Denies Abdominal Pain: Denies Diarrhea/constipation :Denies Blood in stool : Denies Dysuria/hematuria: Denies Headache: Denies change in vision: Denies Raynaud's: Denies Sicca: Denies Past Medical History PAST MEDICAL HISTORY Diagnosis Date Cancer (HCC) Diabetes (HCC) Past Surgical History No past surgical history on file. Allergy ALLERGIES Allergen Reactions Z Pack [Azithromyci* Hives sensitivity Family History Sister has RA The patient denies family history of SLE, Sarcoidosis, Scleroderma, IBD or Psoriasis. No family history on file. Social History Social History Tobacco Use Smoking status: Never Smokeless tobacco: Never Substance Use Topics Alcohol use: Yes Comment: occasional Drug use: Never Current Medications Current Outpatient Medications Medication Sig aspirin 81 mg chewable tablet Take by mouth. pioglitazone (ACTOS) 45 mg tablet famotidine (PEPCID) 40 mg tablet Take 40 mg by mouth daily at bedtime. fluticasone (FLONASE) 50 mcg/actuation nasal spray Use in the nose. Fluorouracil 5 % cream apply to face and ears lisinopril (ZESTRIL) 10 mg tablet Take by mouth. meloxicam (MOBIC) 7.5 mg tablet Take 7.5 mg by mouth once daily. metFORMIN (GLUCOPHAGE) 1,000 mg tablet Take 1,000 mg by mouth once daily. omeprazole (PRILOSEC) 40 mg capsule Take 40 mg by mouth once daily. tiZANidine (ZANAFLEX) 2 mg tablet Take by mouth. No current facility-administered medications for this visit. Labs CBC Latest Ref Rng & Units 04/09/2022 WBC 3.70 - 11.00 k/uL 8.48 HEMOGLOBIN 13.0 - 17.0 g/dL 15.1 HEMATOCRIT 39.0 - 51.0 % 46.8 PLATELETS 150 - 400 k/uL 165 CMP Latest Ref Rng & Units 04/09/2022 SODIUM 136 - 144 mmol/L 139 POTASSIUM 3.7 - 5.1 mmol/L 4.2 CHLORIDE 97 - 105 mmol/L 100 CO2 22 - 30 mmol/L 27 GLUCOSE 74 - 99 mg/dL 99 BUN 9 - 24 mg/dL 16 CREATININE 0.73 - 1.22 mg/dL 0.92 CALCIUM, TOTAL 8.5 - 10.2 mg/dL 9.9 AST 14 - 40 U/L 32 ALT 10 - 54 U/L 33 ALKALINE PHOSPHATASE 38 - 113 U/L 70 Imaging Last XR Hand/Finger - Impression Only No resulted procedures found. Last MRI Hand - Impression Only No resulted procedures found. Last XR Chest - Impression Only No resulted procedures found. Last XR Cervical Spine - Impression Only No resulted procedures found. Health Maintenance Current Immunizations Never Reviewed Name Date COVID-19 vaccine, bivalent (MODERNA) 05/13/2022 COVID-19 vaccine, monovalent (MODERNA) 06/14/2021 , 10/19/2020 , 09/21/2020 Physical Exam VITAL SIGNS: BP 121/63 Pulse 73 Ht 6' 1 (1.85m) Wt 334 lb (151.5kg) BMI 44.08 kg/(m^2). GENERAL APPEARANCE: Well groomed, obese, In no distress. SKIN: No rash, thickening, nodules, calcifications, discoloration. EYES: PERRL, EOMI HENT: Normal external examination of the ears and nose, lips, oropharynx and tongue. No oropharyngeal lesions, exudate, or sores. NECK: No mass or asymmetry, no lymphadenopathy. RESPIRATORY: Normal respiratory effort. Clear to auscultation, no wheeze. CARDIOVASCULAR: regular, normal rate, normal heart sounds, no murmur or rub ABDOMEN: BS normal. No bruits, NEUROLOGIC: Alert and oriented x 3. Motor exam: Normal muscle strength grossly. Normal bulk and tone. MUSCULOSKELETAL EXAMINATION: Soft tissue tender points: None Upper extremities: Shoulders: Full ROM in all directions, no tenderness to palpation. No swelling or effusion. Elbows: Full ROM in flexion and extension. No swelling or effusion. No tenderness to palpation to the joint line, olecranon, medial or lateral epicondyles. Wrists: Full ROM in all wayne. No swelling or synovitis. No pain with pronation/supination. No tenderness to palpation Hands: Full ROM in flexion and extension. Full radiology special procedure tech strength. No swelling or synovitis along the MCPs, PIPs, and DIPs. No tenderness along the MCPs, PIPs, and DIPs. Lower extremities: Knees: Full ROM in flexion and extension. No swelling or effusion. No tenderness to palpation. Ankles: Full ROM in all wayne. No swelling or effusion. No tenderness to palpation along the jointline, medial/lateral malleolus, ATFL, PTFL, CFL, or Achilles Tendon. Feet: Full ROM in toe flexion/extension. No effusion. No tenderness to palpation. No evidence of MTP swelling. Spine- Merna's limited due to pain Diagnoses: (M54.41, G89.29) Chronic right-sided low back pain with right-sided sciatica (primary encounter diagnosis) Impression and Plan 1. Chronic back pain with right-sided sciatica Patient with right-sided buttock pain radiating to right thigh and leg with numbness and tingling sensation His pain is triggered by certain movement, not better with activities He denies any other joint pain or swelling No history of uveitis, dactylitis, psoriasis, IBD His back pain does not sound inflammatory, no evidence of peripheral arthritis He had MRI and x-rays of his back, patient brought a disc, report not available for my review, willupload the disc. We will also request report of the imaging from [facility], he will sign the medical release request form today 2. Shortness of breath Reports shortness of breath with activities Defer further evaluation to his PCP 3. Healthcare maintenance/Malignancy screening Defer to PCP Orders this visit: Office Visit on 11/14/22 aspirin 81 mg chewable tablet pioglitazone (ACTOS) 45 mg tablet famotidine (PEPCID) 40 mg tablet fluticasone (FLONASE) 50 mcg/actuation nasal spray Fluorouracil 5 % cream lisinopril (ZESTRIL) 10 mg tablet meloxicam (MOBIC) 7.5 mg tablet metFORMIN (GLUCOPHAGE) 1,000 mg tablet omeprazole (PRILOSEC) 40 mg capsule tiZANidine (ZANAFLEX) 2 mg tablet Return in about 2 weeks (around 11/28/2022) for virtual. I spent a total of 58 minutes on the date of the service which included preparing to see the patient, [id number] patient care, completing clinical documentation, obtaining and/or reviewing separately obtained history, performing a medically appropriate examination, and counseling and educating the patient/family/caregiver. Juma Monk MD, [facility] Hospital Discharge instructions Patient Education 11/08/2022 10:50:05 Diabetes Mellitus and Exercise Diabetes Mellitus and Exercise Exercising regularly is important for your overall health, especially when you have diabetes (diabetes mellitus). Exercising is not only about losing weight. It has many other health benefits, such as increasing muscle strength and bone density and reducing body fat and stress. This leads to improved fitness, flexibility, and endurance, all of which result in better overall health. Exercise has additional benefits for people with diabetes, including: Reducing appetite. Helping to lower and control blood glucose. Lowering blood pressure. Helping to control amounts of fatty substances (lipids) in the blood, such as cholesterol and triglycerides. Helping the body to respond better to insulin (improving insulin sensitivity). Reducing how much insulin the body needs. Decreasing the risk for heart disease by: ?Lowering cholesterol and triglyceride levels. ?Increasing the levels of good cholesterol. ?Lowering blood glucose levels. What is my activity plan? Your health care provider or certified scrum master can help you make a plan for the type and frequency of exercise (activity plan) that works for you. Make sure that you: Do at least 150 minutes of moderate-intensity or vigorous-intensity exercise each week. This could be brisk walking, biking, or water aerobics. ?Do stretching and strength exercises, such as yoga or weightlifting, at least 2 times a week. ?Spread out your activity over at least 3 days of the week. Get some form of physical activity every day. ?Do not go more than 2 days in a row without some kind of physical activity. ?Avoid being inactive for more than 30 minutes at a time. Take frequent breaks to walk or stretch. Choose a type of exercise or activity that you enjoy, and set realistic goals. Start slowly, and gradually increase the intensity of your exercise over time. What do I need to know about managing my diabetes? Check your blood glucose before and after exercising. ?If your blood glucose is 240 mg/dL (13.3 mmol/L) or higher before you exercise, check your urine for ketones. If you have ketones in your urine, do not exercise until your blood glucose returns to normal. ?If your blood glucose is 100 mg/dL (5.6 mmol/L) or lower, eat a snack containing 15 20 grams of carbohydrate. Check your blood glucose 15 minutes after the snack to make sure that your level is above 100 mg/dL (5.6 mmol/L) before you start your exercise. Know the symptoms of low blood glucose (hypoglycemia) and how to treat it. Your risk for hypoglycemia increases during and after exercise. Common symptoms of hypoglycemia can include: ?Hunger. ?Anxiety. ?Sweating and feeling clammy. ?Confusion. ?Dizziness or feeling light-headed. ?Increased heart rate or palpitations. ?Blurry vision. ?Tingling or numbness around the mouth, lips, or tongue. ?Tremors or shakes. ?Irritability. Keep a rapid-acting carbohydrate snack available before, during, and after exercise to help preventor treat hypoglycemia. Avoid injecting insulin into areas of the body that are going to be exercised. For example, avoid injecting insulin into: ?The arms, when playing tennis. ?The legs, when jogging. Keep records of your exercise habits. Doing this can help you and your health care provider adjust your diabetes management plan as needed. Write down: ?Food that you eat before and after you exercise. ?Blood glucose levels before and after you exercise. ?The type and amount of exercise you have done. ?When your insulin is expected to peak, if you use insulin. Avoid exercising at times when your insulin is peaking. When you start a new exercise or activity, work with your health care provider to make sure the activity is safe for you, and to adjust your insulin, medicines, or food intake as needed. Drink plenty of water while you exercise to prevent dehydration or heat stroke. Drink enough fluid to keep your urine clear or pale yellow. Summary Exercising regularly is important for your overall health, especially when you have diabetes (diabetes mellitus). Exercising has many health benefits, such as increasing muscle strength and bone density and reducing body fat and stress. Your health care provider or certified scrum master can help you make a plan for the type and frequency of exercise (activity plan) that works for you. When you start a new exercise or activity, work with your health care provider to make sure the activity is safe for you, and to adjust your insulin, medicines, or food intake as needed. This information is not intended to replace advice given to you by your health care provider. Make sure you discuss any questions you have with your health care provider. Document Released: 10/18/2004 Document Revised: 02/20/2018 Document Reviewed: 01/07/2017 [employer] Patient Education 2020 [employer]. Follow Up Care 10/19/2022 13:04:21 With:MAMTA LEE FAAFP, [place], BEATRIZ, PED Address: [address] [place] [address]- When:Within 3 Month(s) [facility] 03-15-2023 Note [id number]:127[facility] 09-10-2022 Hospital Discharge instructions Follow Up Care 09/10/2022 07:55:41 With:Thao Duncan DO, FAM, PED Address: [place] [address] When:1 month only if needed Comments:40 mins [facility] 01-17-2023 Hospital Discharge instructions Patient Education 08/28/2022 13:59:48 Diabetes Mellitus and Nutrition, Adult Diabetes Mellitus and Nutrition, Adult When you have diabetes (diabetes mellitus), it is very important to have healthy eating habits because your blood sugar (glucose) levels are greatly affected by what you eat and drink. Eating healthyfoods in the appropriate amounts, at about the same times every day, can help you: Control your blood glucose. Lower your risk of heart disease. Improve your blood pressure. Reach or maintain a healthy weight. Every person with diabetes is different, and each person has different needs for a meal plan. Your health care provider may recommend that you work with a diet and nutrition technician (dietitian) tomake a meal plan that is best for you. Your meal plan may vary depending on factors such as: The calories you need. The medicines you take. Your weight. Your blood glucose, blood pressure, and cholesterol levels. Your activity level. Other health conditions you have, such as heart or kidney disease. How do carbohydrates affect me? Carbohydrates, also called carbs, affect your blood glucose level more than any other type of food.Eating carbs naturally raises the amount of glucose in your blood. Carb counting is a method for keeping track of how many carbs you eat. Counting carbs is important to keep your blood glucose at a healthy level, especially if you use insulin or take certain oral diabetes medicines. It is important to know how many carbs you can safely have in each meal. This is different for every person. Your dietitian can help you calculate how many carbs you should have at each meal and for each snack. Foods that contain carbs include: Bread, cereal, rice, pasta, and crackers. Potatoes and corn. Peas, beans, and lentils. Milk and yogurt. Fruit and juice. Desserts, such as cakes, cookies, ice cream, and candy. How does alcohol affect me? Alcohol can cause a sudden decrease in blood glucose (hypoglycemia), especially if you use insulin or take certain oral diabetes medicines. Hypoglycemia can be a life-threatening condition. Symptoms of hypoglycemia (sleepiness, dizziness, and confusion) are similar to symptoms of having too much alcohol. If your health care provider says that alcohol is safe for you, follow these guidelines: Limit alcohol intake to no more than 1 drink per day for non women and 2 drinks per day formen. One drink equals 12 oz of beer, 5 oz of wine, or 1 oz of hard liquor. Do not drink on an empty stomach. Keep yourself hydrated with water, diet soda, or unsweetened iced tea. Keep in mind that regular soda, juice, and other mixers may contain a lot of sugar and must be counted as carbs. What are tips for following this plan? Reading food labels Start by checking the serving size on the Nutrition Facts label of packaged foods and drinks. Theamount of calories, carbs, fats, and other nutrients listed on the label is based on one serving ofthe item. Many items contain more than one serving per package. Check the total grams (g) of carbs in one serving. You can calculate the number of servings of carbs in one serving by dividing the total carbs by 15. For example, if a food has 30 g of total carbs, it would be equal to 2 servings of carbs. Check the number of grams (g) of saturated and trans fats in one serving. Choose foods that have low or no amount of these fats. Check the number of milligrams (mg) of salt (sodium) in one serving. Most people should limit totalsodium intake to less than 2,300 mg per day. Always check the nutrition information of foods labeled as low-fat or nonfat . These foods may be higher in added sugar or refined carbs and should be avoided. Talk to your dietitian to identify your daily goals for nutrients listed on the label. Shopping Avoid buying canned, premade, or processed foods. These foods tend to be high in fat, sodium, and added sugar. Shop around the outside edge of the grocery store. This includes fresh fruits and vegetables, bulk grains, fresh meats, and fresh dairy. Cooking Use low-heat cooking methods, such as baking, instead of high-heat cooking methods like deep frying. Cook using healthy oils, such as olive, canola, or sunflower oil. Avoid cooking with butter, cream, or high-fat meats. Meal planning Eat meals and snacks regularly, preferably at the same times every day. Avoid going long periods oftime without eating. Eat foods high in fiber, such as fresh fruits, vegetables, beans, and whole grains. Talk to your dietitian about how many servings of carbs you can eat at each meal. Eat 4 6 ounces (oz) of lean protein each day, such as lean meat, chicken, fish, eggs, or tofu. One oz of lean protein is equal to: ?1 oz of meat, chicken, or fish. ?1 egg. ? cup of tofu. Eat some foods each day that contain healthy fats, such as avocado, nuts, seeds, and fish. Lifestyle Check your blood glucose regularly. Exercise regularly as told by your health care provider. This may include: ?150 minutes of moderate-intensity or vigorous-intensity exercise each week. This could be brisk walking, biking, or water aerobics. ?Stretching and doing strength exercises, such as yoga or weightlifting, at least 2 times a week. Take medicines as told by your health care provider. Do not use any products that contain nicotine or tobacco, such as cigarettes and e-cigarettes. If you need help quitting, ask your health care provider. Work with a counselor or family life educator to identify strategies to manage stress and any emotional and social challenges. Questions to ask a health care provider Do I need to meet with a family life educator? Do I need to meet with a dietitian? What number can I call if I have questions? When are the best times to check my blood glucose? Where to find more information: [place] [employer]: diabetes.org Academy of Nutrition and Dietetics: www.eatright.org National [place] of Diabetes and Digestive and Kidney Diseases (NIH): www.niddk.nih.gov Summary A healthy meal plan will help you control your blood glucose and maintain a healthy lifestyle. Working with a diet and nutrition technician (dietitian) can help you make a meal plan that is bestfor you. Keep in mind that carbohydrates (carbs) and alcohol have immediate effects on your blood glucose levels. It is important to count carbs and to use alcohol carefully. This information is not intended to replace advice given to you by your health care provider. Make sure you discuss any questions you have with your health care provider. Document Released: 04/25/2006 Document Revised: 07/11/2018 Document Reviewed: 09/02/2017 [employer] Patient Education 2020 [employer]. 08/28/2022 13:59:46 Exercising to Lose Weight Exercising to Lose Weight Exercise is structured, repetitive physical activity to improve fitness and health. Getting regularexercise is important for everyone. It is especially important if you are overweight. Being overweight increases your risk of heart disease, stroke, diabetes, high blood pressure, and several types of cancer. Reducing your calorie intake and exercising can help you lose weight. Exercise is usually categorized as moderate or vigorous intensity. To lose weight, most people needto do a certain amount of moderate-intensity or vigorous-intensity exercise each week. Moderate-intensity exercise Moderate-intensity exercise is any activity that gets you moving enough to burn at least three times more energy (calories) than if you were sitting. Examples of moderate exercise include: Walking a mile in 15 minutes. Doing light yard work. Biking at an easy pace. Most people should get at least 150 minutes (2 hours and 30 minutes) a week of moderate-intensity exercise to maintain their body weight. Vigorous-intensity exercise Vigorous-intensity exercise is any activity that gets you moving enough to burn at least six times more calories than if you were sitting. When you exercise at this intensity, you should be working hard enough that you are not able to carry on a conversation. Examples of vigorous exercise include: Running. Playing a team sport, such as football, basketball, and soccer. Jumping rope. Most people should get at least 75 minutes (1 hour and 15 minutes) a week of vigorous-intensity exercise to maintain their body weight. How can exercise affect me? When you exercise enough to burn more calories than you eat, you lose weight. Exercise also reducesbody fat and builds muscle. The more muscle you have, the more calories you burn. Exercise also: Improves mood. Reduces stress and tension. Improves your overall fitness, flexibility, and endurance. Increases bone strength. The amount of exercise you need to lose weight depends on: Your age. The type of exercise. Any health conditions you have. Your overall physical ability. Talk to your health care provider about how much exercise you need and what types of activities aresafe for you. What actions can I take to lose weight? Nutrition Make changes to your diet as told by your health care provider or diet and nutrition technician (dietitian). This may include: ?Eating fewer calories. ?Eating more protein. ?Eating less unhealthy fats. ?Eating a diet that includes fresh fruits and vegetables, whole grains, low-fat dairy products, andlean protein. ?Avoiding foods with added fat, salt, and sugar. Drink plenty of water while you exercise to prevent dehydration or heat stroke. Activity Choose an activity that you enjoy and set realistic goals. Your health care provider can help you make an exercise plan that works for you. Exercise at a moderate or vigorous intensity most days of the week. ?The intensity of exercise may vary from person to person. You can tell how intense a workout is for you by paying attention to your breathing and heartbeat. Most people will notice their breathing and heartbeat get faster with more intense exercise. Do resistance training twice each week, such as: ?Push-ups. ?Sit-ups. ?Lifting weights. ?Using resistance bands. Getting short amounts of exercise can be just as helpful as long structured periods of exercise. Ifyou have trouble finding time to exercise, try to include exercise in your daily routine. ?Get up, stretch, and walk around every 30 minutes throughout the day. ?Go for a walk during your lunch break. ?Park your car farther away from your destination. ?If you take public transportation, get off one stop early and walk the rest of the way. ?Make phone calls while standing up and walking around. ?Take the stairs instead of elevators or escalators. Wear comfortable clothes and shoes with good support. Do not exercise so much that you hurt yourself, feel dizzy, or get very short of breath. Where to find more information U[place]S. Department of Health and Human Services: www.hhs.gov Centers for Disease Control and Prevention (CDC): www.cdc.gov Contact a health care provider: Before starting a new exercise program. If you have questions or concerns about your weight. If you have a medical problem that keeps you from exercising. Get help right away if you have any of the following while exercising: Injury. Dizziness. Difficulty breathing or shortness of breath that does not go away when you stop exercising. Chest pain. Rapid heartbeat. Summary Being overweight increases your risk of heart disease, stroke, diabetes, high blood pressure, and several types of cancer. Losing weight happens when you burn more calories than you eat. Reducing the amount of calories you eat in addition to getting regular moderate or vigorous exercise each week helps you lose weight. This information is not intended to replace advice given to you by your health care provider. Make sure you discuss any questions you have with your health care provider. Document Released: 08/31/2011 Document Revised: 08/11/2018 Document Reviewed: 08/11/2018 [employer] Patient Education 2020 [employer]. 08/28/2022 13:59:43 BMI for Adults BMI for Adults Body mass index (BMI) is a number that is calculated from a person's weight and height. BMI may help to estimate how much of a person's weight is composed of fat. BMI can help identify those who may be at higher risk for certain medical problems. How is BMI used with adults? BMI is used as a screening tool to identify possible weight problems. It is used to check whether aperson is obese, overweight, healthy weight, or underweight. How is BMI calculated? BMI measures your weight and compares it to your height. This can be done either in [place] or metric measurements. Note that charts are available to help you find your BMI quickly and easily without having to do these calculations yourself. To calculate your BMI in [place] measurements, your health care provider will: 1.Measure your weight in pounds (lb). 2.Multiply the number of pounds by 703. For example, for a person who weighs 180 lb, multiply that number by 703, which equals 126,540. 3.Measure your height in inches (in). Then multiply that number by itself to get a measurement called inches squared. For example, for a person who is 70 in tall, the inches squared measurement is 70 in x 70 in, which equals 4900 inches squared. 4.Divide the total from Step 2 (number of lb x 703) by the total from Step 3 (inches squared): 126,540 4900 = 25.8. This is your BMI. To calculate your BMI in metric measurements, your health care provider will: 1.Measure your weight in kilograms (kg). 2.Measure your height in meters (m). Then multiply that number by itself to get a measurement called meters squared. For example, for a person who is 1.75 m tall, the meters squared measurement is 1.75 m x 1.75 m, which is equal to 3.1 meters squared. 3.Divide the number of kilograms (your weight) by the meters squared number. In this example: 70 3.1 = 22.6. This is your BMI. How is BMI interpreted? To interpret your results, your health care provider will use BMI charts to identify whether you are underweight, normal weight, overweight, or obese. The following guidelines will be used: Underweight: BMI less than 18.5. Normal weight: BMI between 18.5 and 24.9. Overweight: BMI between 25 and 29.9. Obese: BMI of 30 and above. Please note: Weight includes both fat and muscle, so someone with a muscular build, such as an athlete, may havea BMI that is higher than 24.9. In cases like these, BMI is not an accurate measure of body fat. To determine if excess body fat is the cause of a BMI of 25 or higher, further assessments may needto be done by a health care provider. BMI is usually interpreted in the same way for men and women. Why is BMI a useful tool? BMI is useful in two ways: Identifying a weight problem that may be related to a medical condition, or that may increase the risk for medical problems. Promoting lifestyle and diet changes in order to reach a healthy weight. Summary Body mass index (BMI) is a number that is calculated from a person's weight and height. BMI may help to estimate how much of a person's weight is composed of fat. BMI can help identify those who may be at higher risk for certain medical problems. BMI can be measured using [place] measurements or metric measurements. To interpret your results, your health care provider will use BMI charts to identify whether you are underweight, normal weight, overweight, or obese. This information is not intended to replace advice given to you by your health care provider. Make sure you discuss any questions you have with your health care provider. Document Released: 04/09/2005 Document Revised: 07/11/2018 Document Reviewed: 06/11/2018 [employer] Patient Education 2019 [employer]. [facility] 01-12-2023 Hospital Discharge instructions Patient Education 08/23/2022 08:15:11 Mccarty's Esophagus Mccarty's Esophagus Mccarty's esophagus occurs when the tissue that lines the esophagus changes or becomes damaged. Theesophagus is the tube that carries food from the throat to the stomach. With Mccarty's esophagus, the cells that line the esophagus are replaced by cells that are similar to the lining of the intestines (intestinal metaplasia). Mccarty's esophagus itself may not cause any symptoms. However, many people who have Mccarty's esophagus also have gastroesophageal reflux disease (GERD), which may cause symptoms such as heartburn. Over time, a few people with this condition may develop cancer of the esophagus. Treatment may include medicines, procedures to destroy the abnormal cells, or surgery. What are the causes? The exact cause of this condition is not known. In some cases, the condition develops from damage to the lining of the esophagus caused by GERD. GERD occurs when stomach acids flow up from the stomach into the esophagus. Frequent symptoms of GERD may cause intestinal metaplasia or cause cell changes (dysplasia). What increases the risk? You are more likely to develop this condition if you: Have GERD. Are male. Are . Are obese. Are older than 50. Have a hiatal hernia. This is a condition in which part of your stomach bulges into your chest. Smoke. What are the signs or symptoms? People with Mccarty's esophagus often have no symptoms. However, many people with this condition also have GERD. Symptoms of GERD may include: Heartburn. Difficulty swallowing. Dry cough. How is this diagnosed? This condition may be diagnosed based on: Results of an upper gastrointestinal endoscopy. For this exam, a thin, flexible tube with a light and a camera on the end (endoscope) is passed down your esophagus. Your health care provider can viewthe inside of your esophagus during this procedure. Results of a biopsy. For this procedure, several tissue samples are removed (biopsy) from your esophagus. They are then checked for intestinal metaplasia or dysplasia. How is this treated? Treatment for this condition may include: Medicines (proton pump inhibitors, or PPIs) to decrease or stop GERD. Periodic endoscopic exams to make sure that cancer is not developing. A procedure or surgery for dysplasia. This may include: ?Removal or destruction of abnormal cells. ?Removal of part of the esophagus (esophagectomy). Follow these instructions at home: Eating and drinking Eat more fruits and vegetables. Avoid fatty foods. Eat small, frequent meals instead of large meals. Avoid foods that cause heartburn. These foods include: ?Coffee and alcoholic drinks. ?Tomatoes and foods made with tomatoes. ?[place] or spicy foods. ?Chocolate and peppermint. Do not drink alcohol. General instructions Take npka-uer-zekteib and prescription medicines only as told by your health care provider. Do not use any products that contain nicotine or tobacco, such as cigarettes and e-cigarettes. If you need help quitting, ask your health care provider. If you are being treated for GERD, make sure you take medicines and follow all instructions as toldby your health care provider. Keep all follow-up visits as told by your health care provider. This is important. Contact a health care provider if: You have heartburn or GERD symptoms. You have difficulty swallowing. Get help right away if: You have chest pain. You are unable to swallow. You vomit blood or material that looks like coffee grounds. Your stool (feces) is bright red or dark. Summary Mccarty's esophagus occurs when the tissue that lines the esophagus changes or becomes damaged. Mccarty's esophagus may be diagnosed with an upper gastrointestinal endoscopy and a biopsy. Treatment may include medicines, procedures to remove abnormal cells, or surgery. Follow your health care provider's instructions about what to eat and drink, what medicines to take, and when to call for help. This information is not intended to replace advice given to you by your health care provider. Make sure you discuss any questions you have with your health care provider. Document Released: 10/18/2004 Document Revised: 11/24/2018 Document Reviewed: 11/24/2018 [employer] Patient Education 2020 [employer] 08/23/2022 08:15:04 Budget-Friendly Healthy Eating Budget-Friendly Healthy Eating There are many ways to save money at the grocery store and continue to eat healthy. You can be successful if you: Plan meals according to your budget. Make a grocery list and only purchase food according to your grocery list. Prepare food yourself. What are tips for following this plan? Reading food labels Compare food labels between brand name foods and the store brand. Often the nutritional value is the same, but the store brand is lower cost. Look for products that do not have added sugar, fat, or salt (sodium). These often cost the same but are healthier for you. Products may be labeled as: ?Sugar-free. ?Nonfat. ?Low-fat. ?Sodium-free. ?Low-sodium. Look for lean ground beef labeled as at least 92% lean and 8% fat. Shopping Buy only the items on your grocery list and go only to the areas of the store that have the items on your list. Use coupons only for foods and brands you normally buy. Avoid buying items you wouldn't normally buy simply because they are on sale. Check online and in newspapers for weekly deals. Buy healthy items from the bulk bins when available, such as herbs, spices, flour, pasta, nuts, anddried fruit. Buy fruits and vegetables that are in season. Prices are usually lower on in- season produce. Look at the unit pompa on the pompa tag. Use it to compare different brands and sizes to find out which item is the best deal. Choose healthy items that are often low-cost, such as carrots, potatoes, apples, bananas, and oranges. Dried or canned beans are a low-cost protein source. Buy in bulk and freeze extra food. Items you can buy in bulk include meats, fish, poultry, frozen fruits, and frozen vegetables. Avoid buying fqtot-uu-[id number] foods, such as pre-cut fruits and vegetables and pre-made salads. If possible, shop around to discover where you can find the best prices. Consider other retailers such as dollar stores, larger wholesale stores, local fruit and vegetable stands, and farmers markets. Do not shop when you are hungry. If you shop while hungry, it may be hard to stick to your list andbudget. Resist impulse buying. Use your grocery list as your official plan for the week. Buy a variety of vegetables and fruits by purchasing fresh, frozen, and canned items. Look at the top and bottom shelves for deals. Foods at eye level (eye level of an adult or child) are usually more expensive. Be efficient with your time when shopping. The more time you spend at the store, the more money youare likely to spend. To save money when choosing more expensive foods like meats and dairy: ?Choose cheaper cuts of meat, such as bone-in chicken thighs and drumsticks instead of skinless andboneless chicken. When you are ready to prepare the chicken, you can remove the skin yourself to make it healthier. ?Choose lean meats like chicken or turkey instead of beef. ?Choose canned seafood, such as tuna, salmon, or sardines. ?Buy eggs as a low-cost source of protein. ?Buy dried beans and peas, such as lentils, split peas, or kidney beans instead of meats. Dried beans and peas are a good alternative source of protein. ?Buy the larger tubs of yogurt instead of individual-sized containers. Choose water instead of sodas and other sweetened beverages. Avoid buying chips, cookies, and other junk food. These items are usually expensive and not healthy. Cooking Make extra food and freeze the extras in meal-sized containers or in individual portions for fast meals and snacks. Pre-cook on days when you have extra time to prepare meals in advance. You can keep these meals in the fridge or freezer and reheat for a quick meal. When you come home from the grocery store, wash, peel, and cut fruits and vegetables so they are ready to use and eat. This will help reduce food waste. Meal planning Do not eat out or get fast food. Prepare food at home. Make a grocery list and make sure to bring it with you to the store. If you have a smart phone, youcould use your phone to create your shopping list. Plan meals and snacks according to a grocery list and budget you create. Use leftovers in your meal plan for the week. Look for recipes where you can cook once and make enough food for two meals. Include budget-friendly meals like stews, casseroles, and stir-rodriguez dishes. Try some meatless meals or try no cook meals like salads. Make sure that half your plate is filled with fruits or vegetables. Choose from fresh, frozen, or canned fruits and vegetables. If eating canned, remember to rinse them before eating. This will remove any excess salt added for packaging. Summary Eating healthy on a budget is possible if you plan your meals according to your budget, purchase according to your budget and grocery list, and prepare food yourself. Tips for buying more food on a limited budget include buying generic brands, using coupons only forfoods you normally buy, and buying healthy items from the bulk bins when available. Tips for buying cheaper food to replace expensive food include choosing cheaper, lean cuts of meat,and buying dried beans and peas. This information is not intended to replace advice given to you by your health care provider. Make sure you discuss any questions you have with your health care provider. Document Released: 04/01/2015 Document Revised: 07/30/2018 Document Reviewed: 07/30/2018 [employer] Patient Education 2020 [employer]. Follow Up Care 02/20/2022 08:09:19 With:MAMTA LEE FAAFP, [place], BEATRIZ, PED Address: [address] [place] [address] [facility] [address]- When:Within 6 Month(s) [facility] 12-21-2022 Hospital Discharge instructions Patient Education 08/01/2022 18:07:47 Heat Therapy, Upch-qz-Kvpn Heat Therapy Heat therapy can help ease sore, stiff, injured, and tight muscles and joints. Heat relaxes your muscles, which may help ease your pain and muscle spasms. Do not use heat therapy unless your doctor tells you to use it. How to use heat therapy There are several different kinds of heat therapy, including: Moist heat pack. Hot water bottle. Electric heating pad. Heated gel pack. Heated wrap. Warm water bath. Your doctor will tell you how to use heat therapy. In general, you should: 1.Place a towel between your skin and the heat source. 2.Leave the heat on for 20 30 minutes. Your skin may turn pink. 3.Remove the heat if your skin turns bright red. You should remove the heat source if you are unable to feel pain, heat, or cold. You are more likely to get burned if you leave it on the skin for toolong. Your doctor may also tell you to take a warm water bath. To do this: 1.Put a non-slip pad in the bathtub to prevent a fall. 2.Fill the bathtub with warm water. 3.Check the water temperature. 4.Soak in the water for 15 20 minutes, or as told by your doctor. 5.Be careful when you stand up after the bath. You may feel dizzy. 6.Pat yourself dry after the bath. Do not rub your skin to dry it. General recommendations for heat therapy Do not sleep while using heat therapy. Only use heat therapy while you are awake. Your skin may turn pink while using heat therapy. Do not use heat therapy if your skin turns red. Do not use heat therapy if you have a new injury. High heat or using heat for a long time can cause luciano. Be careful not to burn your skin when using heat therapy. Do not use heat therapy on areas of your skin that are already irritated, such as with a rash or sunburn. Get help if you have: Blisters, redness, swelling (puffiness), or numbness. New pain. Pain that is getting worse. Summary Heat therapy is the use of heat to help ease sore, stiff, injured, and tight muscles and joints. There are different types of heat therapy. Your doctor will tell you which one to use. Only use heat therapy while you are awake. Watch your skin to make sure you do not get burned while using heat therapy. This information is not intended to replace advice given to you by your health care provider. Make sure you discuss any questions you have with your health care provider. Document Released: 10/20/2012 Document Revised: 09/21/2019 Document Reviewed: 08/09/2018 [employer]OWN Patient Education 2020 [employer] Follow Up Care 07/04/2022 17:02:06 With:Perla LEE, BEATRIZ Oneil, PED Address: [address] [place] [address], [facility] [place] [address] When:1 month only if needed Comments:40 mins [facility] 10-28-2022 NoteQ3 Patient Name: Jas Gonzalez Procedure Date: 06/08/2022 12:33 PM Date of : 1950 Admit Type: Outpatient Age: 72 Gender: Male Note Status: Finalized Attending MD: Katrina Urena MD Procedure: Upper GI endoscopy Indications: Mccarty's esophagus Providers: Katrina Urena MD Patient Profile: Refer to note in patient chart for documentation of history and physical. Referring Physician: Katrina Urnea MD (Referring MD) Medicines: Monitored Anesthesia Care Complications: No immediate complications. Requesting Provider: Procedure: Pre-Anesthesia Assessment: - ASA Grade Assessment: III - A patient with severe systemic disease. After obtaining informed consent, the endoscope was passed under direct vision. Throughout the procedure, the patient's blood pressure, pulse, and oxygen saturations were monitored continuously. The Endoscope was introduced through the mouth, and advanced to the second part of duodenum. The upper GI endoscopy was accomplished without difficulty. The patient tolerated the procedure well. Moderate Sedation: Moderate (conscious) sedation was personally administered by an anesthesia professional. The following parameters were monitored: oxygen saturation, heart rate, blood pressure, and response to care. MAC anesthesia was administered by the anesthesia team. Findings: The esophagus and gastroesophageal junction were examined with white light and narrow band imaging (NBI) from a forward view and retroflexed position. There were esophageal mucosal changes classified as Mccarty's stage C3-M4 per Norris criteria. These changes involved the mucosa at the upper extent of the gastric folds (41 cm from the incisors) extending to the Z-line (37 cm from the incisors). [place]-colored mucosa was present. The maximum longitudinal extent of these esophageal mucosal changes was 4 cm in length. Mucosa was biopsied with a cold forceps for histology at intervals of 2 cm. A 4 cm hiatal hernia was present. Localized moderate inflammation characterized by erythema was found in the gastric antrum. This was biopsied with a cold forceps for histology. Two 10 mm papules (nodules) with no bleeding and no stigmata of recent bleeding were found in the gastric antrum. This was biopsied with a cold forceps for histology. No gross lesions were noted in the duodenum. Impression: - Esophageal mucosal changes classified as Mccarty's stage C3-M4 per Norris criteria. Biopsied. - 4 cm hiatal hernia. - Acute gastritis. Biopsied. - Two papules (nodules) found in the stomach. Biopsied. - No gross lesions in the duodenum. Estimated Blood Loss: Estimated blood loss: none. Recommendation: - Await pathology results. - Patient has a contact number available for emergencies. The signs and symptoms of potential delayed complications were discussed with the patient. Return to normal activities tomorrow. Written discharge instructions were provided to the patient. Procedure Code(s): --- Professional --- 52169 Diagnosis Code(s): --- Professional --- K22.70 K44.9 K29.00 K31.89 CPT copyright 2020 [employer]. All rights reserved. Attending Participation: I personally performed the entire procedure. Scope In: 12:44:02 PM Scope Out: 12:54:52 PM MD Katrina Whaley MD 06/08/2022 12:57:27 PM This report has been signed electronically by Katrina Urena MD Number of Addenda: 0 Note Initiated On: 06/08/2022 12:33 [facility]10-28-2022 Nurse Note* Leonor Osorio RN - 06/08/2022 1:39 PM EDT AMBULATORY PATIENT EDUCATION NOTE TOPIC: GI PROCEDURES: Esophagogastroduodenoscopy(EGD) with or without biopies based on clinical findings, removal of polyps or lesions READINESS TO LEARN INSTRUCTION PROVIDED TO: Patient and family member COGNITIVE ABILITY: Alert and oriented PTED MOTIVATION TO LEARN: Interested FAMILY SUPPORT: High - Very involved in pt care IPATIENT LEARNS BEST BY: Written Instruction - Hand-outs Verbal Instruction FACTORS AFFECTING LEARNING: None PHYSICAL LIMITATIONS AFFECTING LEARNING: None LEARNING RESPONSE METHOD OF INSTRUCTION: Individual instruction PATIENT / FAMILY RESPONSE: Verbalizes understanding of: WORSENING CONDITION- Signs and symptoms of aworsening condition that warrant a call to the physician FOLLOW-UP PLAN: Recommend - Recommend continued instruction and follow up as directed SUPPLEMENTAL MATERIAL: Procedure Discharge Instructions REFERRAL (RECOMMENDATION): None * Marguerite Potts RN - 06/08/2022 12:03 PM EDT PRE OP LEARNING ASSESSMENT PROCEDURE/SURGERY: GI PROCEDURES: EGD READINESS TO LEARN COGNITIVE ABILITY: Alert and oriented MOTIVATION TO LEARN: Eager FAMILY SUPPORT: Unable to assess - Family not present PATIENT LEARNS BEST BY: Individual Instruction FACTORS AFFECTING LEARNING: None PHYSICAL LIMITATIONS AFFECTING LEARNING: None Electronically Signed By: Marguerite Potts RN In Department: GASTROENTEROLOGY documented in this encounterChildren[facility]09-15-2022 Miscellaneous Notes* Telephone Encounter - Marguerite Potts RN - 04/26/2022 3:44 PM EDT Attempted to reach the patient at the contact number that they provided [phone] (home) . 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 Failure to have a responsible adult accompany the patient to their procedure appointment prevents the useof sedation or anesthesia for their procedure; and can result in cancellation of the procedure NPO instructions were reviewed. Instructions to contact their primary care provider regarding their medications and which medications to stop in preparation for their procedure Instructions to completely read and follow the written instructions that they recieved regarding their procedure. Number to call with questions or concerns [phone] Number to call to cancel their procedure [phone] Marguerite Potts RN documented in this encounterChildren'S Hospital For Rehabilitation08-29-2022 NoteHNO ID: [id number] Author: Katrina Urena MD Service: ? Author Type: Physician Type: Progress Notes Filed: 04/09/2022 3:46 PM Note Text: DEPARTMENT OF GASTROENTEROLOGY Consulting Physician: Gonzales Robbins MD Dear Dr. Robbins, Thank you for your kind new patient consult of . Please see below for my recommendations and treatment plan which will be communicated to you by way of shared medical record or mail. CC: Chaitanya esophagus History of Present Illness: Jas Gonzalez is a 72 year old male who presents for evaluation of Mccarty's esophagus.. Initial diagnosis several years ago. Long standing GERD symptoms requiring PPI. No dysphagia or odynophagia. 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 Compliance with medication. Mccarty's Esophagus GERD, Famotidine 40mg in pm AND omeprazole 40mg in am No pain Purposefully losing weight (20lb) Appetite good No family history of esophageal cancer or Mccarty's Had EGD several years ago and was told her had Mccarty's esophagus Note: Last OV 03/22/2022, Dr. Robbins: 1 week s/p EGD with biopsies distal esophagitis/Mccarty's changes; extensive distal esophageal disease; no nodularity; pathologist concerned about possible dysplasia sent specimen to [facility], still pending; patient denies pain or GERD symptoms. Past Medical History: Ongoing: Mccarty's esophagus with dysplasia BMI 40-44-9 BPH associated with nocturia Diabetes Mellitus Dietary Counseling GERD with hiatal hernia senior care current use of oral hypoglycemic drug Lumbar facet joint pain History of pulmonary embolism Past Surgical History:No past surgical history on file. Family History:No family history on file. Social History: Tobacco Use: Not on file Alcohol Use: Not on file Drug Use: Not on file Allergies: ALLERGIES Not on File Medications: No current outpatient medications on file. No current facility-administered medications for this visit. Review of Systems: GENERAL: negative for malaise, significant weight loss, night sweats and fever HEENT: No changes in hearing or vision, no nose bleeds or other nasal problems., No trouble swallowing NECK: Negative for lumps, goiter, pain and significant neck swelling RESPIRATORY: Negative for cough, wheezing and shortness of breath CARDIOVASCULAR: Negative for chest pain, leg swelling, palpitations, orthopnea GI: GERD symptoms well controlled with PPI and SEE HPI MUSCULOSKELETAL: Negative for joint pain or swelling, back pain, and muscle pain. SKIN: Negative for lesions, rash, and itching. Physical Exam: VITALS: There were no vitals taken for this visit., There is no height or weight on file to calculate BMI. GENERAL: well appearing, alert, in no acute distress, well-hydrated, well nourished HEENT: HEAD: normocephalic, atraumatic, no masses, lesions, tenderness or abnormalities EYES: EOMI, Anicteric sclera EARS: external ears normal NOSE: negative THROAT: lips, mucosa, and tongue normal, teeth and gums normal, oropharynx normal NECK: FROM, No JVD or bruits. SKIN: No jaundice LUNGS: clear to auscultation, no wheezing, rales or rhonchi HEART: RRR, normal S1, S2 auscultated, no M/G/R ABD: soft, non-tender, non-distended. Bowel sounds normal. No masses, organomegaly EXTREMITIES: No clubbing, cyanosis, or edema. MUSCULOSKELETAL: No joint swelling, deformity, or tenderness NEURO: Alert and oriented x3, speech clear and fluent, gait normal Imaging/Labs: EGD 03/15/2022: Findings: The affected area was not inflamed. Norris classification C 40, M 35. Biopsy collected. The squamocolumnar junction appeared irregular and was located 40 cm from incisors. A hiatal hernia was identified 3 cm in length. The hernia is described as a sliding hernia. Examination of the duodenum revealed a normal duodenum. 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 -indefinite for dysphagia. 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 - EGD with biopsy I would like to thank you for the kind referral of . I appreciate the opportunity to be involved in his care. Please do not hesitate to call upon me if I may be of further assistance. The patient is seen and examined by Dr. Urena and the following reflects his/her service. Scribed by Lynn Beaver RN I agree with the Chief Complaint, ROS, and Past Histories independently gathered by the clinical residential direct support professional and the remaining scribed note accurately describes my personal service to the patient. Katrina Urena M.D. Office:[phone] Appointments [phone] Fax [phone] [facility]08-29-[facility] History of Present illness Narrative* Katrina Urena MD - 04/09/2022 3:00 PM EDT DEPARTMENT OF GASTROENTEROLOGY Consulting Physician: Gonzales Robbins MD Dear Dr. Robbins, Thank you for your kind new patient consult of . Please see below for my recommendations and treatment plan which will be communicated to you by way of shared medical record or mail. CC: Geronimo's esophagus History of Present Illness: Jas Gonzalez is a 72 year old male who presents for evaluation of Mccarty's esophagus.. Initial diagnosis several years ago. Long standing GERD symptoms requiring PPI. No dysphagia or odynophagia. 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 Compliance with medication. Mccarty's Esophagus GERD, Famotidine 40mg in pm & omeprazole 40mg in am No pain Purposefully losing weight (20lb) Appetite good No family history of esophageal cancer or Mccarty's Had EGD several years ago and was told her had Mccarty's esophagus Note: Last OV 03/22/2022, Dr. Robbins: 1 week s/p EGD with biopsies distal esophagitis/Mccarty's changes; extensive distal esophageal disease; no nodularity; pathologist concerned about possible dysplasia sent specimen to [facility], still pending; patient denies pain or GERD symptoms. 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 Family History:No family history on file. Social History: Tobacco Use: Not on file Alcohol Use: Not on file Drug Use: Not on file Allergies: ALLERGIES Not on File Medications: No current outpatient medications on file. No current facility-administered medications for this visit. Review of Systems: GENERAL: negative for malaise, significant weight loss, night sweats and fever HEENT: No changes in hearing or vision, no nose bleeds or other nasal problems., No trouble swallowing NECK: Negative for lumps, goiter, pain and significant neck swelling RESPIRATORY: Negative for cough, wheezing and shortness of breath CARDIOVASCULAR: Negative for chest pain, leg swelling, palpitations, orthopnea GI: GERD symptoms well controlled with PPI and SEE HPI MUSCULOSKELETAL: Negative for joint pain or swelling, back pain, and muscle pain. SKIN: Negative for lesions, rash, and itching. Physical Exam: VITALS: There were no vitals taken for this visit., There is no height or weight on file to calculate BMI. GENERAL: well appearing, alert, in no acute distress, well-hydrated, well nourished HEENT: HEAD: normocephalic, atraumatic, no masses, lesions, tenderness or abnormalities EYES: EOMI, Anicteric sclera EARS: external ears normal NOSE: negative THROAT: lips, mucosa, and tongue normal, teeth and gums normal, oropharynx normal NECK: FROM, No JVD or bruits. SKIN: No jaundice LUNGS: clear to auscultation, no wheezing, rales or rhonchi HEART: RRR, normal S1, S2 auscultated, no M/G/R ABD: soft, non-tender, non-distended. Bowel sounds normal. No masses, organomegaly EXTREMITIES: No clubbing, cyanosis, or edema. MUSCULOSKELETAL: No joint swelling, deformity, or tenderness NEURO: Alert and oriented x3, speech clear and fluent, gait normal Imaging/Labs: EGD 03/15/2022: Findings: The affected area was not inflamed. Norris classification C 40, M 35. Biopsy collected. The squamocolumnar junction appeared irregular and was located 40 cm from incisors. A hiatal hernia was identified 3 cm in length. The hernia is described as a sliding hernia. Examination of the duodenum revealed a normal duodenum. 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 -indefinite for dysphagia. 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 - EGD with biopsy I would like to thank you for the kind referral of . I appreciate the opportunity to be involved in his care. Please do not hesitate to call upon me if I may be of further assistance. The patient is seen and examined by Dr. Urena and the following reflects his/her service. Scribed byLynn Beaver RN I agree with the Chief Complaint, ROS, and Past Histories independently gathered by the clinical residential direct support professional and the remaining scribed note accurately describes my personal service to the patient. Katrina Urena M.D. Office:[phone] [facility] [phone] Fax [phone] documented in this encounterChildren'S [facility]07-12-2022 Hospital Discharge instructions Patient Education 02/20/2022 08:08:00 Insulin Resistance Insulin Resistance Insulin is a hormone that helps to control blood sugar (glucose) levels in the body. It is made in the pancreas. Insulin allows glucose to enter cells in the body. Insulin sensitivity refers to how the body responds to insulin. Insulin resistance occurs when cells in the body do not respond properly to insulin made by the pancreas and are not able to absorb glucose from the bloodstream. Insulin resistance results in high blood glucose levels (hyperglycemia) and can lead to problems, including: Prediabetes. Type 2 diabetes (type 2 diabetes mellitus). Heart disease. High blood pressure (hypertension). Stroke. Polycystic ovary syndrome (PCOS). Nonalcoholic fatty liver disease. What are the causes? The exact cause of insulin resistance is not known. What increases the risk? The following factors may make you more likely to develop insulin resistance: Being overweight or obese, especially if a lot of your weight is in your waist area. Having an inactive (sedentary) lifestyle. Using steroids. Being older than age 45. Having sleep apnea. Using tobacco products. What are the signs or symptoms? This condition usually does not cause symptoms. How is this diagnosed? There is no test to diagnose insulin resistance. However, your health care provider may diagnose insulin resistance based on: Your blood glucose levels. Your cholesterol levels. A measurement of the distance around your waist (circumference). A waist circumference of more than35 inches (88.9 cm) for women and more than 40 inches (101.6 cm) for men may be a sign of insulin resistance. Your risk factors. A physical exam. Your medical history. How is this treated? Insulin resistance is treated with nutrition and lifestyle changes. These changes may include: Eating a healthy balance of nutritious foods. Getting more physical activity. Maintaining a healthy weight. Stopping the use of any tobacco products. Your health care provider will work with you to change your nutrition and lifestyle as needed. In some cases, treatment may also include medicine to improve your insulin sensitivity. Follow these instructions at home: Activity Be physically active. Do moderate-intensity physical activity for 30 minutes or more on 5 or more days of the week, or as much as told by your health care provider. This could be brisk walking, biking, or water aerobics. Ask your health care provider what activities are safe for you. A mix of physical activities may bebest, such as walking, swimming, cycling, and strength training. Eating and drinking Follow a healthy meal plan. This includes eating lean proteins, complex carbohydrates, fresh fruitsand vegetables, low-fat dairy products, and healthy fats. Follow instructions from your health care provider about eating or drinking restrictions. Make an appointment to see a diet and nutrition technician (registered dietitian) to help you create a healthy eating plan. General instructions Check your blood glucose levels as told by your health care provider. Take rqev-bgm-olyiuso and prescription medicines only as told by your health care provider. Lose weight as told by your health care provider. ?Losing 5 7% of your body weight can reverse insulin resistance. ?Your health care provider can determine how much weight loss is best for you and can help you loseweight safely. Do not use any tobacco products, such as cigarettes, chewing tobacco, and e- cigarettes. If you needhelp quitting, ask your health care provider. Keep all follow-up visits as told by your health care provider. This is important. Contact a health care provider if: You have trouble losing weight or maintaining your goal weight. You gain weight. You have trouble following your prescribed meal plan. You have trouble exercising more. Summary Insulin resistance occurs when cells in the body do not respond properly to insulin made by the pancreas and are not able to absorb blood sugar (glucose) from the bloodstream. Your health care provider will work with you to change your nutrition and lifestyle as needed. Treatment may also include medicine to improve your insulin sensitivity. Keep all follow-up visits as told by your health care provider. This is important. This information is not intended to replace advice given to you by your health care provider. Make sure you discuss any questions you have with your health care provider. Document Released: 09/17/2006 Document Revised: 07/11/2018 Document Reviewed: 08/31/2016 [employer] Patient Education 2020 [employer] 02/20/2022 08:07:58 Type 2 Diabetes Mellitus, Self Care, Adult, Htvk-zf-Fgsn Type 2 Diabetes Mellitus, Self Care, Adult When you have type 2 diabetes (type 2 diabetes mellitus), you must make sure your blood sugar (glucose) stays in a healthy range. You can do this with: Nutrition. Exercise. Lifestyle changes. Medicines or insulin, if needed. Support from your doctors and others. How to stay aware of blood sugar Check your blood sugar level every day, as often as told. Have your A1c (hemoglobin A1c) level checked two or more times a year. Have it checked more often if your doctor tells you to. Your doctor will set personal treatment goals for you. Generally, you should have these blood sugarlevels: Before meals (preprandial): 80 130 mg/dL (4.4 7.2 mmol/L). After meals (postprandial): below 180 mg/dL (10 mmol/L). A1c level: less than 7%. How to manage high and low blood sugar Signs of high blood sugar High blood sugar is called hyperglycemia. Know the signs of high blood sugar. Signs may include: Feeling: ?Thirsty. ?Hungry. ?Very tired. Needing to pee (urinate) more than usual. Blurry vision. Signs of low blood sugar Low blood sugar is called hypoglycemia. This is when blood sugar is at or below 70 mg/dL (3.9 mmol/L). Signs may include: Feeling: ?Hungry. ?Worried or nervous (anxious). ?Sweaty and clammy. ?Confused. ?Dizzy. ?Sleepy. ?Sick to your stomach (nauseous). Having: ?A fast heartbeat. ?A headache. ?A change in your vision. ?Jerky movements that you cannot control (seizure). ?Tingling or no feeling (numbness) around your mouth, lips, or tongue. Having trouble with: ?Moving (coordination). ?Sleeping. ?Passing out (fainting). ?Getting upset easily (irritability). Treating low blood sugar To treat low blood sugar, eat or drink something sugary right away. If you can think clearly and swallow safely, follow the 15:15 rule: Take 15 grams of a fast-acting carb (carbohydrate). Talk with your doctor about how much you shouldtake. Some fast-acting carbs are: ?Sugar tablets (glucose pills). Take 3 4 pills. ?6 8 pieces of hard candy. ?4 6 oz (120 150 mL) of fruit juice. ?4 6 oz (120 150 mL) of regular (not diet) soda. ?1 Tbsp (15 mL) honey or sugar. Check your blood sugar 15 minutes after you take the carb. If your blood sugar is still at or below 70 mg/dL (3.9 mmol/L), take 15 grams of a carb again. If your blood sugar does not go above 70 mg/dL (3.9 mmol/L) after 3 tries, get help right away. After your blood sugar goes back to normal, eat a meal or a snack within 1 hour. Treating very low blood sugar If your blood sugar is at or below 54 mg/dL (3 mmol/L), you have very low blood sugar (severe hypoglycemia). This is an emergency. Do not wait to see if the symptoms will go away. Get medical help right away. Call your local emergency services (911 in the [place] If you have very low blood sugar and you cannot eat or drink, you may need a glucagon shot (injection). A family member or friend should learn how to check your blood sugar and how to give you a glucagon shot. Ask your doctor if you need to have a glucagon shot kit at home. Follow these instructions at home: Medicine Take insulin and diabetes medicines as told. If your doctor says you should take more or less insulin and medicines, do this exactly as told. Do not run out of insulin or medicines. Having diabetes can raise your risk for other long-term conditions. These include heart disease andkidney disease. Your doctor may prescribe medicines to help you not have these problems. Food Make healthy food choices. These include: ?Chicken, fish, egg whites, and beans. ?Oats, whole wheat, bulgur, brown rice, quinoa, and millet. ?Fresh fruits and vegetables. ?Low-fat dairy products. ?Nuts, avocado, olive oil, and canola oil. Meet with a food counter worker (dietitian). He or she can help you make an eating plan that is right for you. Follow instructions from your doctor about what you cannot eat or drink. Drink enough fluid to keep your pee (urine) pale yellow. Keep track of carbs that you eat. Do this by reading food labels and learning food serving sizes. Follow your sick day plan when you cannot eat or drink normally. Make this plan with your doctor soit is ready to use. Activity Exercise 3 or more times a week. Do not go more than 2 days without exercising. Talk with your doctor before you start a new exercise. Your doctor may need to tell you to change: ?How much insulin or medicines you take. ?How much food you eat. Lifestyle Do not use any tobacco products. These include cigarettes, chewing tobacco, and e-cigarettes. If you need help quitting, ask your doctor. Ask your doctor how much alcohol is safe for you. Learn to deal with stress. If you need help with this, ask your doctor. Body care Stay up to date with your shots (immunizations). Have your eyes and feet checked by a doctor as often as told. Check your skin and feet every day. Check for cuts, bruises, redness, blisters, or sores. [place] your teeth and gums two times a day. Floss one or more times a day. Go to the dentist one or more times every 6 months. Stay at a healthy weight. General instructions Take fyuu-kvi-pwingzj and prescription medicines only as told by your doctor. Share your diabetes care plan with: ?Your work or school. ?People you live with. Carry a card or wear jewelry that says you have diabetes. Keep all follow-up visits as told by your doctor. This is important. Questions to ask your doctor Do I need to meet with a family life educator? Where can I find a support group for people with diabetes? Where to find more information To learn more about diabetes, visit: [place] [employer]: www.diabetes.org [place] [employer] Diabetes Educators: www.diabeteseducator.org Summary When you have type 2 diabetes, you must make sure your blood sugar (glucose) stays in a healthy range. Check your blood sugar every day, as often as told. Having diabetes can raise your risk for other conditions. Your doctor may prescribe medicines to help you not have these problems. Keep all follow-up visits as told by your doctor. This is important. This information is not intended to replace advice given to you by your health care provider. Make sure you discuss any questions you have with your health care provider. Document Released: 11/19/2016 Document Revised: 01/19/2019 Document Reviewed: 08/31/2016 [employer] Patient Education 2020 [employer]. 02/20/2022 08:07:54 Type 2 Diabetes Mellitus, Self Care, Adult Type 2 Diabetes Mellitus, Self Care, Adult Caring for yourself after you have been diagnosed with type 2 diabetes (type 2 diabetes mellitus) means keeping your blood sugar (glucose) under control with a balance of: Nutrition. Exercise. Lifestyle changes. Medicines or insulin, if necessary. Support from your team of health care providers and others. The following information explains what you need to know to manage your diabetes at home. What are the risks? Having diabetes can put you at risk for other long-term (chronic) conditions, such as heart diseaseand kidney disease. Your health care provider may prescribe medicines to help prevent complicationsfrom diabetes. These medicines may include: Aspirin. Medicine to lower cholesterol. Medicine to control blood pressure. How to monitor blood glucose Check your blood glucose every day, as often as told by your health care provider. Have your A1c (hemoglobin A1c) level checked two or more times a year, or as often as told by your health care provider. Your health care provider will set individualized treatment goals for you. Generally, the goal of treatment is to maintain the following blood glucose levels: Before meals (preprandial): 80 130 mg/dL (4.4 7.2 mmol/L). After meals (postprandial): below 180 mg/dL (10 mmol/L). A1c level: less than 7%. How to manage hyperglycemia and hypoglycemia Hyperglycemia symptoms Hyperglycemia, also called high blood glucose, occurs when blood glucose is too high. Make sure youknow the early signs of hyperglycemia, such as: Increased thirst. Hunger. Feeling very tired. Needing to urinate more often than usual. Blurry vision. Hypoglycemia symptoms Hypoglycemia, also called low blood glucose, occurs with a blood glucose level at or below 70 mg/dL(3.9 mmol/L). The risk for hypoglycemia increases during or after exercise, during sleep, during illness, and when skipping meals or not eating for a long time (fasting). It is important to know the symptoms of hypoglycemia and treat it right away. Always have a 41-npaptocfk-cbsgsw carbohydrate snack with you to treat low blood glucose. Family members and close friends should also know the symptoms and should understand how to treat hypoglycemia, in case you are not able to treat yourself. Symptoms may include: Hunger. Anxiety. Sweating and feeling clammy. Confusion. Dizziness or feeling light-headed. Sleepiness. Nausea. Increased heart rate. Headache. Blurry vision. Irritability. A change in coordination. Tingling or numbness around the mouth, lips, or tongue. Restless sleep. Fainting. Seizure. Treating hypoglycemia If you are alert and able to swallow safely, follow the 15:15 rule: Take 15 grams of a rapid-acting carbohydrate. Talk with your health care provider about how much you should take. Rapid-acting options include: ?Glucose pills (take 15 grams). ?6 8 pieces of hard candy. ?4 6 oz (120 150 mL) of fruit juice. ?4 6 oz (120 150 mL) of regular (not diet) soda. ?1 Tbsp (15 mL) honey or sugar. Check your blood glucose 15 minutes after you take the carbohydrate. If the repeat blood glucose level is still at or below 70 mg/dL (3.9 mmol/L), take 15 grams of a carbohydrate again. If your blood glucose level does not increase above 70 mg/dL (3.9 mmol/L) after 3 tries, seek emergency medical care. After your blood glucose level returns to normal, eat a meal or a snack within 1 hour. Treating severe hypoglycemia Severe hypoglycemia is when your blood glucose level is at or below 54 mg/dL (3 mmol/L). Severe hypoglycemia is an emergency. Do not wait to see if the symptoms will go away. Get medical help right away. Call your local emergency services (911 in the [place] If you have severe hypoglycemia and you cannot eat or drink, you may need an injection of glucagon.A family member or close friend should learn how to check your blood glucose and how to give you a glucagon injection. Ask your health care provider if you need to have an emergency glucagon injection kit available. Severe hypoglycemia may need to be treated in a hospital. The treatment may include getting glucosethrough an IV. You may also need treatment for the cause of your hypoglycemia. Follow these instructions at home: Take diabetes medicines as told If your health care provider prescribed insulin or diabetes medicines, take them every day. Do not run out of insulin or other diabetes medicines that you take. Plan ahead so you always have these available. If you use insulin, adjust your dosage based on how physically active you are and what foods you eat. Your health care provider will tell you how to adjust your dosage. Make healthy food choices The things that you eat and drink affect your blood glucose and your insulin dosage. Making good choices helps to control your diabetes and prevent other health problems. A healthy meal plan includeseating lean proteins, complex carbohydrates, fresh fruits and vegetables, low-fat dairy products, and healthy fats. Make an appointment to see a diet and nutrition technician (registered dietitian) to help you create an eating plan that is right for you. Make sure that you: Follow instructions from your health care provider about eating or drinking restrictions. Drink enough fluid to keep your urine pale yellow. Keep a record of the carbohydrates that you eat. Do this by reading food labels and learning the standard serving sizes of foods. Follow your sick day plan whenever you cannot eat or drink as usual. Make this plan in advance withyour health care provider. Stay active Exercise regularly, as told by your health care provider. This may include: Stretching and doing strength exercises, such as yoga or weightlifting, 2 or more times a week. Doing 150 minutes or more of moderate-intensity or vigorous-intensity exercise each week. This could be brisk walking, biking, or water aerobics. ?Spread out your activity over 3 or more days of the week. ?Do not go more than 2 days in a row without doing some kind of physical activity. When you start a new exercise or activity, work with your health care provider to adjust your insulin, medicines, or food intake as needed. Make healthy lifestyle choices Do not use any tobacco products, such as cigarettes, chewing tobacco, and e- cigarettes. If you needhelp quitting, ask your health care provider. If your health care provider says that alcohol is safe for you, limit alcohol intake to no more than 1 drink per day for non women and 2 drinks per day for men. One drink equals 12 oz of beer(355 mL), 5 oz of wine (148 mL), or 1 oz of hard liquor (44 mL). Learn to manage stress. If you need help with this, ask your health care provider. Care for your body Keep your immunizations up to date. In addition to getting vaccinations as told by your health careprovider, it is recommended that you get vaccinated against the following illnesses: ?The flu (influenza). Get a flu shot every year. ?Pneumonia. ?Hepatitis B. Schedule an eye exam soon after your diagnosis, and then one time every year after that. Check your skin and feet every day for cuts, bruises, redness, blisters, or sores. Schedule a foot exam with your health care provider once every year. [place] your teeth and gums two times a day, and floss one or more times a day. Visit your dentist one or more times every 6 months. Maintain a healthy weight. General instructions Take wtet-msm-omqdzyp and prescription medicines only as told by your health care provider. Share your diabetes management plan with people in your workplace, school, and household. Carry a medical alert card or wear medical alert jewelry. Keep all follow-up visits as told by your health care provider. This is important. Questions to ask your health care provider Do I need to meet with a family life educator? Where can I find a support group for people with diabetes? Where to find more information For more information about diabetes, visit: [place] Diabetes Association (ADA): www.diabetes.org [place] [employer] of Diabetes Educators (AADE): www.diabeteseducator.org Summary Caring for yourself after you have been diagnosed with (type 2 diabetes mellitus) means keeping your blood sugar (glucose) under control with a balance of nutrition, exercise, lifestyle changes, and medicine. Check your blood glucose every day, as often as told by your health care provider. Having diabetes can put you at risk for other long-term (chronic) conditions, such as heart diseaseand kidney disease. Your health care provider may prescribe medicines to help prevent complicationsfrom diabetes. Keep all follow-up visits as told by your health care provider. This is important. This information is not intended to replace advice given to you by your health care provider. Make sure you discuss any questions you have with your health care provider. Document Released: 11/19/2016 Document Revised: 01/19/2019 Document Reviewed: 08/31/2016 [employer] Patient Education 2020 [employer]. Follow Up Care 08/22/2021 10:02:38 With:Mt GOODEN DO, FAAFP, BEATRIZ, PED Address: [place] [address]- When:Within 6 Month(s) [facility] Primary Care Evaluation + Plan note Future Appointments Appointment Date:02/20/2022 07:40:00 AM Scheduled Provider:Mt GOODEN DO, FAAFP Location:[facility] Appointment Type:FM Open Appointment Date:09/13/2022 11:00:00 AM Scheduled Provider: Location:[facility] Appointment Type: Medicare Wellness Subsequent Future Scheduled Tests Laboratory* HgbA1c 02/20/21 * HgbA1c 05/23/21 * HgbA1c 08/23/21 * HgbA1c 11/21/21 * HgbA1c 12/13/20 * HgbA1c 01/21/21 * HgbA1c 04/23/21 * [facility] Appointment Date:02/22/2022 09:40:00 AM Scheduled Provider:Gonzales ROBBINS MD Location:[facility] Appointment Type:[place] [id number] Appointment Date:08/23/2022 07:40:00 AM Scheduled Provider:Mt GOODEN DO, FAAFP Location:[facility] Appointment Type: Open Appointment Date:09/13/2022 11:00:00 AM Scheduled Provider: Location:[facility] Appointment Type: Medicare Wellness Subsequent Future Scheduled Tests Laboratory* HgbA1c 02/20/21 * HgbA1c 05/23/21 * HgbA1c 08/23/21 * HgbA1c 11/21/21 * HgbA1c 02/20/22 * HgbA1c 05/23/22 * HgbA1c 08/23/22 * HgbA1c 11/21/22 * HgbA1c 04/23/21 * HgbA1c 07/23/21 * Microalbumin Level Urine 02/20/22 * PSA Screen, Total 02/20/22 * Basic Metabolic Panel 02/20/22 * CBC w/ Auto Diff 02/20/22 * Hepatic Function Panel 02/20/22 * Lipid Panel 02/20/22 [facility] Primary Care Evaluation + Plan note Future Appointments Appointment Date:03/15/2022 09:00:00 AM Scheduled Provider: Location:[facility] Appointment Type:Surgery FT Appointment Date:08/23/2022 07:40:00 AM Scheduled Provider:Mt GOODEN DO, FAAFP Location:[facility] Appointment Type: Open Appointment Date:09/13/2022 11:00:00 AM Scheduled Provider: Location:[facility] Appointment Type: Medicare Wellness Subsequent Future Scheduled Tests Laboratory* HgbA1c 02/20/21 * HgbA1c 05/23/21 * HgbA1c 08/23/21 * HgbA1c 11/21/21 * HgbA1c 02/20/22 * HgbA1c 05/23/22 * HgbA1c 08/23/22 * HgbA1c 11/21/22 * HgbA1c 04/23/21 * HgbA1c 07/23/21 * Microalbumin Level Urine 02/20/22 * PSA Screen, Total 02/20/22 * Basic Metabolic Panel 02/20/22 * CBC w/ Auto Diff 02/20/22 * Hepatic Function Panel 02/20/22 * Lipid Panel 02/20/22 [facility] General Surgery [place] Evaluation + Plan note Future Appointments Appointment Date:07/04/2022 03:40:00 PM Scheduled Provider:Thao Duncan DO Location:[facility] Appointment Type: Procedure Appointment Date:08/23/2022 07:40:00 AM Scheduled Provider:Mt GOODEN DO, FAAFP Location:[facility] Appointment Type: Open Appointment Date:09/13/2022 11:00:00 AM Scheduled Provider: Location:[facility] Appointment Type:FM Medicare Wellness Subsequent Future Scheduled Tests Laboratory* HgbA1c 08/23/21 * HgbA1c 11/21/21 * HgbA1c 02/20/22 * HgbA1c 05/23/22 * HgbA1c 08/23/22 * HgbA1c 11/21/22 * HgbA1c 07/23/21 * Microalbumin Level Urine 02/20/22 * PSA Screen, Total 02/20/22 * Basic Metabolic Panel 02/20/22 * CBC w/ Auto Diff 02/20/22 * Hepatic Function Panel 02/20/22 * Lipid Panel 02/20/22 [facility] Primary Care Evaluation + Plan note Future Appointments Appointment Date:08/23/2022 07:40:00 AM Scheduled Provider:Mt GOODEN DO, FAAFP Location:[facility] Appointment Type: Open Appointment Date:09/13/2022 11:00:00 AM Scheduled Provider: Location:[facility] Appointment Type: Medicare Wellness Subsequent Future Scheduled Tests Laboratory* HgbA1c 08/23/21 * HgbA1c 11/21/21 * HgbA1c 02/20/22 * HgbA1c 05/23/22 * HgbA1c 08/23/22 * HgbA1c 11/21/22 * HgbA1c 07/23/21 * Microalbumin Level Urine 02/20/22 * PSA Screen, Total 02/20/22 * Basic Metabolic Panel 02/20/22 * CBC w/ Auto Diff 02/20/22 * Hepatic Function Panel 02/20/22 * Lipid Panel 02/20/22 [facility] Primary Care Evaluation + Plan note Future Appointments Appointment Date:08/28/2022 11:00:00 AM Scheduled Provider: Location:[facility] Appointment Type: Medicare Wellness Subsequent Appointment Date:09/04/2022 03:00:00 PM Scheduled Provider:Thao Duncan DO Location:[facility] Appointment Type: Procedure Appointment Date:02/18/2023 08:00:00 AM Scheduled Provider:Mt GOODEN DO, FAAFP Location:[facility] Appointment Type: Open Future Scheduled Tests Laboratory* HgbA1c 08/23/21 * HgbA1c 11/21/21 * HgbA1c 02/20/22 * HgbA1c 05/23/22 * HgbA1c 08/23/22 * HgbA1c 11/21/22 * HgbA1c 08/23/22 * HgbA1c 11/21/22 * HgbA1c 02/20/23 * HgbA1c 05/23/23 * Microalbumin Level Urine 02/20/22 * Microalbumin Level Urine 08/23/22 * PSA Screen, Total 02/20/22 * PSA Screen, Total 08/23/22 * Basic Metabolic Panel 02/20/22 * Basic Metabolic Panel 08/23/22 * CBC w/ Auto Diff 02/20/22 * CBC w/ Auto Diff 08/23/22 * Hepatic Function Panel 02/20/22 * Hepatic Function Panel 08/23/22 * Lipid Panel 02/20/22 * Lipid Panel 08/23/22 [facility] Primary Care Evaluation + Plan note Future Appointments Appointment Date:09/04/2022 03:00:00 PM Scheduled Provider:Thao Duncan DO Location:[facility] Appointment Type:FM Procedure Appointment Date:02/18/2023 08:00:00 AM Scheduled Provider:Mt GOODEN DO, FAAFP Location:[facility] Appointment Type:FM Open Appointment Date:08/26/2023 11:00:00 AM Scheduled Provider: Location:[facility] Appointment Type:FM Medicare Wellness Subsequent Future Scheduled Tests Laboratory* HgbA1c 08/23/21 * HgbA1c 11/21/21 * HgbA1c 02/20/22 * HgbA1c 05/23/22 * HgbA1c 08/23/22 * HgbA1c 11/21/22 * HgbA1c 08/23/22 * HgbA1c 11/21/22 * HgbA1c 02/20/23 * HgbA1c 05/23/23 * Microalbumin Level Urine 02/20/22 * Microalbumin Level Urine 08/23/22 * PSA Screen, Total 02/20/22 * PSA Screen, Total 08/23/22 * Basic Metabolic Panel 02/20/22 * Basic Metabolic Panel 08/23/22 * CBC w/ Auto Diff 02/20/22 * CBC w/ Auto Diff 08/23/22 * Hepatic Function Panel 02/20/22 * Hepatic Function Panel 08/23/22 * Lipid Panel 02/20/22 * Lipid Panel 08/23/22 [facility] Primary Care Evaluation + Plan note Future Appointments Appointment Date:09/14/2022 10:40:00 AM Scheduled Provider:Thao Duncan DO Location:[facility] Appointment Type:FM Procedure Appointment Date:09/27/2022 09:15:00 AM Scheduled Provider:Pawan Laureano MD Location:[facility] Appointment Type:Pain Management - Follow Up (FT) Appointment Date:02/18/2023 08:00:00 AM Scheduled Provider:Mt GOODEN DO, FAAFP Location:[facility] Appointment Type:FM Open Appointment Date:08/26/2023 11:00:00 AM Scheduled Provider: Location:[facility] Appointment Type: Medicare Wellness Subsequent Future Scheduled Tests Laboratory* HgbA1c 08/23/21 * HgbA1c 11/21/21 * HgbA1c 02/20/22 * HgbA1c 05/23/22 * HgbA1c 08/23/22 * HgbA1c 11/21/22 * HgbA1c 09/10/22 * HgbA1c 11/21/22 * HgbA1c 02/20/23 * HgbA1c 05/23/23 * Microalbumin Level Urine 02/20/22 * PSA Screen, Total 02/20/22 * Basic Metabolic Panel 02/20/22 * CBC w/ Auto Diff 02/20/22 * Hepatic Function Panel 02/20/22 * Hepatic Function Panel 09/10/22 * Lipid Panel 02/20/22 * Lipid Panel [facility]10[facility]22 [facility] Appointment Date:09/18/2022 07:30:00 AM Scheduled Provider: [facility] Type:US Aorta Procedures (FT) Appointment Date:09/27/2022 09:15:00 AM Scheduled Provider:Pawan Laureano MD Location:[facility] Appointment Type:Pain Management - Follow Up (FT) Appointment Date:02/18/2023 08:00:00 AM Scheduled Provider:Mt GOODEN DO, FAAFP Location:[facility] Appointment Type: Open Appointment Date:08/26/2023 11:00:00 AM Scheduled Provider: Location:[facility] Appointment Type:FM Medicare Wellness Subsequent Future Scheduled Tests Laboratory* HgbA1c 11/21/21 * HgbA1c 02/20/22 * HgbA1c 05/23/22 * HgbA1c 08/23/22 * HgbA1c 11/21/22 * HgbA1c 09/10/22 * HgbA1c 11/21/22 * HgbA1c 02/20/23 * HgbA1c 05/23/23 * Microalbumin Level Urine 02/20/22 * PSA Screen, Total 02/20/22 * Basic Metabolic Panel 02/20/22 * CBC w/ Auto Diff 02/20/22 * Hepatic Function Panel 02/20/22 * Hepatic Function Panel 09/10/22 * Lipid Panel 02/20/22 * Lipid Panel 09/10/22 Radiology* US Aorta 09/18/22 [facility] Primary Care Evaluation + Plan note Future Appointments Appointment Date:09/27/2022 09:15:00 AM Scheduled Provider:Pawan Laureano MD Location:[facility] Appointment Type:Pain Management - Follow Up (FT) Appointment Date:02/18/2023 08:00:00 AM Scheduled Provider:Mt GOODEN DO, FAAFP Location:[facility] Appointment Type:FM Open Appointment Date:08/26/2023 11:00:00 AM Scheduled Provider: Location:[facility] Appointment Type: Medicare Wellness Subsequent Future Scheduled Tests Laboratory* HgbA1c 11/21/21 * HgbA1c 02/20/22 * HgbA1c 05/23/22 * HgbA1c 08/23/22 * HgbA1c 11/21/22 * HgbA1c 09/10/22 * HgbA1c 11/21/22 * HgbA1c 02/20/23 * HgbA1c 05/23/23 * Microalbumin Level Urine 02/20/22 * PSA Screen, Total 02/20/22 * Basic Metabolic Panel 02/20/22 * CBC w/ Auto Diff 02/20/22 * Hepatic Function Panel 02/20/22 * Hepatic Function Panel 09/10/22 * Lipid Panel 02/20/22 * Lipid Panel 09/10/22 [facility] [facility] Center[facility] Future Appointments Appointment Date:11/29/2022 09:45:00 AM Scheduled Provider:Pawan Laureano MD Location:[facility] Appointment Type:Pain Management - Follow Up (FT) Appointment Date:02/18/2023 08:00:00 AM Scheduled Provider:Mt GOODEN DO, FAAFP Location:[facility] Appointment Type:FM Open Appointment Date:08/26/2023 11:00:00 AM Scheduled Provider: Location:[facility] Appointment Type: Medicare Wellness Subsequent Future Scheduled Tests Laboratory* HgbA1c 11/21/21 * HgbA1c 02/20/22 * HgbA1c 05/23/22 * HgbA1c 08/23/22 * HgbA1c 11/21/22 * HgbA1c 09/10/22 * HgbA1c 11/21/22 * HgbA1c 02/20/23 * HgbA1c 05/23/23 * Microalbumin Level Urine 02/20/22 * PSA Screen, Total 02/20/22 * Basic Metabolic Panel 02/20/22 * CBC w/ Auto Diff 02/20/22 * Hepatic Function Panel 02/20/22 * Hepatic Function Panel 09/10/22 * Lipid Panel 02/20/22 * Lipid Panel 09/10/22 [facility] Future Appointments Appointment Date:11/08/2022 10:00:00 AM Scheduled Provider:Mt GOODEN DO, FAAFP Location:[facility] Appointment Type: Open Appointment Date:11/29/2022 09:45:00 AM Scheduled Provider:Pawan Laureano MD Location:[facility] Appointment Type:Pain Management - Follow Up (FT) Appointment Date:02/18/2023 08:00:00 AM Scheduled Provider:Mt GOODEN DO, FAAFP Location:[facility] Appointment Type: Open Appointment Date:08/26/2023 11:00:00 AM Scheduled Provider: Location:[facility] Appointment Type:FM Medicare Wellness Subsequent Future Scheduled Tests Laboratory* HgbA1c 11/21/21 * HgbA1c 02/20/22 * HgbA1c 05/23/22 * HgbA1c 08/23/22 * HgbA1c 11/21/22 * HgbA1c 09/10/22 * HgbA1c 11/21/22 * HgbA1c 02/20/23 * HgbA1c 05/23/23 * Microalbumin Level Urine 02/20/22 * PSA Screen, Total 02/20/22 * Basic Metabolic Panel 02/20/22 * CBC w/ Auto Diff 02/20/22 * Hepatic Function Panel 02/20/22 * Hepatic Function Panel 09/10/22 * Lipid Panel 02/20/22 * Lipid Panel 09/10/22 [facility] Future Appointments Appointment Date:11/29/2022 09:45:00 AM Scheduled Provider:Pawan Laureano MD Location:[facility] Appointment Type:Pain Management - Follow Up (FT) Appointment Date:02/18/2023 08:00:00 AM Scheduled Provider:Mt GOODEN DO, FAAFP Location:[facility] Appointment Type: Open Appointment Date:08/26/2023 11:00:00 AM Scheduled Provider: Location:[facility] Appointment Type: Medicare Wellness Subsequent Future Scheduled Tests Laboratory* HgbA1c 11/21/21 * HgbA1c 11/08/22 * HgbA1c 02/20/22 * HgbA1c 05/23/22 * HgbA1c 08/23/22 * HgbA1c 11/21/22 * HgbA1c 09/10/22 * HgbA1c 11/21/22 * HgbA1c 02/20/23 * HgbA1c 05/23/23 * Microalbumin Level Urine 02/20/22 * PSA Screen, Total 02/20/22 * Basic Metabolic Panel 02/20/22 * CBC w/ Auto Diff 02/20/22 * Hepatic Function Panel 11/08/22 * Hepatic Function Panel 02/20/22 * Hepatic Function Panel 09/10/22 * Lipid Panel 02/20/22 * Lipid Panel 09/10/22 Radiology* US Aorta 11/08/22 [facility] Primary [facility] Evaluation + Plan note Future Appointments Appointment Date:11/29/2022 09:45:00 AM Scheduled Provider:Pawan Laureano MD Location:[facility] Appointment Type:Pain Management - Follow Up (FT) Appointment Date:02/18/2023 08:00:00 AM Scheduled Provider:Mt GOODEN DO, FAAFP Location:[facility] Appointment Type: Open Appointment Date:08/26/2023 11:00:00 AM Scheduled Provider: Location:[facility] Appointment Type: Medicare Wellness Subsequent Future Scheduled Tests Laboratory* HgbA1c 11/21/21 * HgbA1c 11/08/22 * HgbA1c 02/20/22 * HgbA1c 05/23/22 * HgbA1c 08/23/22 * HgbA1c 11/21/22 * HgbA1c 09/10/22 * HgbA1c 11/21/22 * HgbA1c 02/20/23 * HgbA1c 05/23/23 * Microalbumin Level Urine 02/20/22 * PSA Screen, Total 02/20/22 * Basic Metabolic Panel 02/20/22 * CBC w/ Auto Diff 02/20/22 * Hepatic Function Panel 11/08/22 * Hepatic Function Panel 02/20/22 * Hepatic Function Panel 09/10/22 * Lipid Panel 02/20/22 * Lipid Panel 09/10/22 [facility] Future Appointments Appointment Date:01/23/2023 09:15:00 AM Scheduled Provider:Joycelyn CHERRY MD Location:[facility] Appointment Type:BAD New Patient Appointment Date:02/18/2023 08:00:00 AM Scheduled Provider:Mt GOODEN DO, FAAFP Location:[facility] Appointment Type: Open Appointment Date:08/26/2023 11:00:00 AM Scheduled Provider: Location:[facility] Appointment Type:FM Medicare Wellness Subsequent Future Scheduled Tests Laboratory* HgbA1c 11/21/21 * HgbA1c 11/08/22 * HgbA1c 02/20/22 * HgbA1c 05/23/22 * HgbA1c 08/23/22 * HgbA1c 11/21/22 * HgbA1c 09/10/22 * HgbA1c 11/21/22 * HgbA1c 02/20/23 * HgbA1c 05/23/23 * Microalbumin Level Urine 02/20/22 * PSA Screen, Total 02/20/22 * Basic Metabolic Panel 02/20/22 * CBC w/ Auto Diff 02/20/22 * CBC w/ Auto Diff 12/10/22 * Hepatic Function Panel 11/08/22 * Hepatic Function Panel 02/20/22 * Hepatic Function Panel 09/10/22 * Hepatic Function Panel 12/10/22 * Lipid Panel 02/20/22 * Lipid Panel 09/10/22 [facility] Primary Care Evaluation + Plan note Future Appointments Appointment Date:02/18/2023 08:00:00 AM Scheduled Provider:Mt GOODEN DO, FAAFP Location:[facility] Appointment Type: Open Appointment Date:02/20/2023 02:25:00 PM Scheduled Provider: Location:[facility] Appointment Type:Surgery FT Appointment Date:08/26/2023 11:00:00 AM Scheduled Provider: Location:[facility] Appointment Type:FM Medicare Wellness Subsequent Future Scheduled Tests Laboratory* HgbA1c 11/08/22 * HgbA1c 02/20/22 * HgbA1c 05/23/22 * HgbA1c 08/23/22 * HgbA1c 11/21/22 * HgbA1c 09/10/22 * HgbA1c 11/21/22 * HgbA1c 05/23/23 * Microalbumin Level Urine 02/20/22 * PSA Screen, Total 02/20/22 * Basic Metabolic Panel 02/20/22 * CBC w/ Auto Diff 02/20/22 * Hepatic Function Panel 11/08/22 * Hepatic Function Panel 02/20/22 * Hepatic Function Panel 09/10/22 * Lipid Panel 02/20/22 * Lipid Panel 09/10/22 [facility] Future Appointments Appointment Date:08/26/2023 11:00:00 AM Scheduled Provider: Location:[facility] Appointment Type: Medicare Wellness Subsequent Future Scheduled Tests Laboratory* HgbA1c 11/08/22 * HgbA1c 02/20/22 * HgbA1c 05/23/22 * HgbA1c 08/23/22 * HgbA1c 11/21/22 * HgbA1c 09/10/22 * HgbA1c 11/21/22 * HgbA1c 05/23/23 * Microalbumin Level Urine 02/20/22 * PSA Screen, Total 02/20/22 * Basic Metabolic Panel 02/20/22 * CBC w/ Auto Diff 02/20/22 * Hepatic Function Panel 11/08/22 * Hepatic Function Panel 02/20/22 * Hepatic Function Panel 09/10/22 * Lipid Panel 02/20/22 * Lipid Panel 09/10/22 [facility] Primary Care Evaluation + Plan note Future Appointments Appointment Date:03/29/2023 09:45:00 AM Scheduled Provider: [facility] Type:[facility]ACT[facility] NURSE Sleep Study Clinic Follow Up (FT) Appointment Date:04/09/2023 10:00:00 AM Scheduled Provider: [facility] Type:ONC Office Visit 30 (FT) Appointment Date:06/03/2023 01:20:00 PM Scheduled Provider:Mt GOODEN DO, FAAFP Location:[facility] Appointment Type: Open Appointment Date:08/26/2023 11:00:00 AM Scheduled Provider: Location:[facility] Appointment Type: Medicare Wellness Subsequent Diagnostic Tests Pending * Factor V Leiden 03/11/23 * Factor II, DNA Analysis 03/11/23 * Lupus Anticoagulant 03/11/23 * Beta-2 Glycoprotein 1 Antibodies, IgA, IgG, IgM 03/11/23 * Anticardiolipin Antibodies IgG, IgA & IgM 03/11/23 Future Scheduled Tests Laboratory* HgbA1c 11/08/22 * HgbA1c 02/20/22 * HgbA1c 05/23/22 * HgbA1c 08/23/22 * HgbA1c 11/21/22 * HgbA1c 09/10/22 * HgbA1c 11/21/22 * HgbA1c 05/23/23 * CBC w/ Auto Diff 04/09/23 * Comprehensive Metabolic Panel 04/09/23 * Hepatic Function Panel 11/08/22 * Hepatic Function Panel 09/10/22 * Lipid Panel 09/10/22 [facility] Future App[facility]ments Appointment Date:04/09/2023 10:00:00 AM Scheduled Provider: Location:.ONCOLOGY Appointment Type:ONC Office Visit 30 (FT) Appointment Date:06/03/2023 01:20:00 PM Scheduled Provider:Mt GOODEN DO, FAAFP Location:[facility] Appointment Type: Open Appointment Date:08/26/2023 11:00:00 AM Scheduled Provider: Location:[facility] Appointment Type:FM Medicare Wellness Subsequent Future Scheduled Tests Laboratory* HgbA1c 11/08/22 * HgbA1c 05/23/22 * HgbA1c 08/23/22 * HgbA1c 11/21/22 * HgbA1c 09/10/22 * HgbA1c 11/21/22 * HgbA1c 05/23/23 * CBC w/ Auto Diff 04/09/23 * Comprehensive Metabolic Panel 04/09/23 * Hepatic Function Panel 11/08/22 * Hepatic Function Panel 09/10/22 * Lipid Panel 09/10/22 [facility] Future Appointments Appointment Date:04/09/2023 10:00:00 AM Scheduled Provider: [facility] Type:ONC Office Visit 30 (FT) Appointment Date:06/03/2023 01:20:00 PM Scheduled Provider:Mt GOODEN DO, FAAFP Location:[facility] Appointment Type: Open Appointment Date:08/26/2023 11:00:00 AM Scheduled Provider: Location:[facility] Appointment Type: Medicare Wellness Subsequent Future Scheduled Tests Laboratory* HgbA1c 11/08/22 * HgbA1c 05/23/22 * HgbA1c 08/23/22 * HgbA1c 11/21/22 * HgbA1c 09/10/22 * HgbA1c 11/21/22 * HgbA1c 05/23/23 * Hepatic Function Panel 11/08/22 * Hepatic Function Panel 09/10/22 * Lipid Panel 09/10/22 [facility] Future Appointments Appointment Date:06/03/2023 01:20:00 PM Scheduled Provider:Mt GOODEN DO, FAAFP Location:[facility] Appointment Type: Open Appointment Date:07/09/2023 10:00:00 AM Scheduled Provider: [facility] Type:ONC Office Visit 30 (FT) Appointment Date:08/26/2023 11:00:00 AM Scheduled Provider: Location:[facility] Appointment Type: Medicare Wellness Subsequent Future Scheduled Tests Laboratory* HgbA1c 11/08/22 * HgbA1c 05/23/22 * HgbA1c 08/23/22 * HgbA1c 11/21/22 * HgbA1c 09/10/22 * HgbA1c 11/21/22 * HgbA1c 05/23/23 * Lab Miscellaneous-LC 04/10/23 * CBC w/ Auto Diff 07/10/23 * Comprehensive Metabolic Panel 07/10/23 * D-Dimer 04/10/23 * D-Dimer 07/11/23 * Hepatic Function Panel 11/08/22 * Hepatic Function Panel 09/10/22 * Lipid Panel 09/10/22 [facility] Future Appointments Appointment Date:06/03/2023 01:20:00 PM Scheduled Provider:Mt GOODEN DO, FAAFP Location:[facility] Appointment Type:FM Open Appointment Date:07/09/2023 10:00:00 AM Scheduled Provider: [facility] Type:ONC Office Visit 30 (FT) Appointment Date:08/26/2023 11:00:00 AM Scheduled Provider: Location:[facility] Appointment Type: Medicare Wellness Subsequent Future Scheduled Tests Laboratory* HgbA1c 11/08/22 * HgbA1c 05/23/22 * HgbA1c 08/23/22 * HgbA1c 11/21/22 * HgbA1c 09/10/22 * HgbA1c 11/21/22 * HgbA1c 05/23/23 * CBC w/ Auto Diff 07/10/23 * Comprehensive Metabolic Panel 07/10/23 * D-Dimer 07/11/23 * Hepatic Function Panel 11/08/22 * Hepatic Function Panel 09/10/22 * Lipid Panel 09/10/22 [facility] Future Appointments Appointment Date:06/11/2023 09:00:00 AM Scheduled Provider: [facility] Appointment Type:US Duplex Procedures (FT) Appointment Date:07/09/2023 10:00:00 AM Scheduled Provider: [facility] Type:ONC Office Visit 30 (FT) Appointment Date:08/26/2023 11:00:00 AM Scheduled Provider: Location:[facility] Appointment Type: Medicare Wellness Subsequent Appointment Date:09/05/2023 09:40:00 AM Scheduled Provider:Mt GOODEN DO, FAAFP Location:[facility] Appointment Type: Open Future Scheduled Tests Laboratory* HgbA1c 11/08/22 * HgbA1c 05/23/22 * HgbA1c 08/23/22 * HgbA1c 11/21/22 * HgbA1c 09/10/22 * HgbA1c 11/21/22 * CBC w/ Auto Diff 07/10/23 * Comprehensive Metabolic Panel 07/10/23 * D-Dimer 07/11/23 * Hepatic Function Panel 09/10/22 Radiology* US LE Venous Duplex Insufficiency Bilat 06/11/23 * US LE Venous Duplex Bilateral 06/11/23 [facility] Primary Care Evaluation + Plan note Future Appointments Appointment Date:06/26/2023 09:45:00 AM Scheduled Provider:Matty Murillo MD Location:.P[facility] Clinic Appointment Type:Pulmonary New Patient (FT) Appointment Date:07/09/2023 10:00:00 AM Scheduled Provider: [facility] Type:ONC Office Visit 30 (FT) Appointment Date:08/26/2023 11:00:00 AM Scheduled Provider: Location:[facility] Appointment Type:FM Medicare Wellness Subsequent Appointment Date:09/05/2023 09:40:00 AM Scheduled Provider:Mt GOODEN DO, FAAFP Location:[facility] Appointment Type: Open Future Scheduled Tests Laboratory* HgbA1c 11/08/22 * HgbA1c 05/23/22 * HgbA1c 08/23/22 * HgbA1c 11/21/22 * HgbA1c 09/10/22 * HgbA1c 11/21/22 * CBC w/ Auto Diff 07/10/23 * Comprehensive Metabolic Panel 07/10/23 * D-Dimer 07/11/23 * Hepatic Function Panel 09/10/22 [facility] Future Appointments Appointment Date:07/09/2023 10:00:00 AM Scheduled Provider: [facility] Type:ONC Office Visit 30 (FT) Appointment Date:07/10/2023 09:30:00 AM Scheduled Provider: [facility] App[facility] Type:PUL Pulmonary Function Test (FT) Appointment Date:07/10/2023 10:30:00 AM Scheduled Provider: [facility] Appointment Type:PUL Six Minute Walk Test (FT) Appointment Date:07/17/2023 09:45:00 AM Scheduled Provider:Matty Murillo MD Location:.Pulmonary Clinic Appointment Type:Pulmonary Follow Up (FT) Appointment Date:08/26/2023 11:00:00 AM Scheduled Provider: Location:[facility] Appointment Type:FM Medicare Wellness Subsequent Appointment Date:09/05/2023 09:40:00 AM Scheduled Provider:Mt GOODEN DO, FAAFP Location:[facility] Appointment Type: Open Future Scheduled Tests Laboratory* HgbA1c 11/08/22 * HgbA1c 08/23/22 * HgbA1c 11/21/22 * HgbA1c 09/10/22 * HgbA1c 11/21/22 * CBC w/ Auto Diff 07/10/23 * Comprehensive Metabolic Panel 07/10/23 * D-Dimer 07/11/23 * Hepatic Function Panel 09/10/22 [facility] Future Appointments Appointment Date:07/10/2023 09:30:00 AM Scheduled Provider: [facility] App[facility] Type:PUL Pulmonary Function Test (FT) Appointment Date:07/10/2023 10:30:00 AM Scheduled Provider: [facility] Appointment Type:PUL Six Minute Walk Test (FT) Appointment Date:07/17/2023 09:45:00 AM Scheduled Provider:Matty Murillo MD [facility] App[facility] Type:Pulmonary Follow Up (FT) Appointment Date:08/26/2023 11:00:00 AM Scheduled Provider: Location:[facility] Appointment Type: Medicare Wellness Subsequent Appointment Date:09/05/2023 09:40:00 AM Scheduled Provider:Mt GOODEN DO, FAAFP Location:[facility] Appointment Type: Open Appointment Date:01/07/2024 10:00:00 AM Scheduled Provider: [facility] Type:ONC Office Visit 30 (FT) Future Scheduled Tests Laboratory* HgbA1c 11/08/22 * HgbA1c 08/23/22 * HgbA1c 11/21/22 * HgbA1c 09/10/22 * HgbA1c 11/21/22 * CBC w/ Auto Diff 01/07/24 * Comprehensive Metabolic Panel 01/07/24 * D-Dimer 01/07/24 * Hepatic Function Panel 09/10/22 [facility] Future Appointments Appointment Date:08/26/2023 11:00:00 AM Scheduled Provider: Location:[facility] Appointment Type: Medicare Wellness Subsequent Appointment Date:09/05/2023 09:40:00 AM Scheduled Provider:Mt GOODEN DO, FAAFP Location:[facility] Appointment Type:FM Open Appointment Date:01/07/2024 10:00:00 AM Scheduled Provider: [facility] Type:ONC Office Visit 30 (FT) Future Scheduled Tests Laboratory* HgbA1c 3/30/23 * HgbA1c 08/23/22 * HgbA1c 11/21/22 * HgbA1c 09/10/22 * HgbA1c 11/21/22 * CBC w/ Auto Diff 01/07/24 * Comprehensive Metabolic Panel 01/07/24 * D-Dimer 01/07/24 * Hepatic Function Panel 09/10/22 [facility]* Diagnosis Mccarty's esophagus with dysplasia- Primary Mccarty's esophagus documented in this encounter [facility] note* Diagnosis Mccarty's esophagus with dysplasia Mccarty's esophagus documented in this encounter [facility] note* Diagnosis Chronic right-sided low back pain with right-sided sciatica- Primary documented in this encounter [facility] note* Diagnosis Bilateral low back pain with sciatica, sciatica laterality unspecified, unspecified chronicity- Primary documented in this encounter [facility] note* Diagnosis Sacrococcygeal disorders, not elsewhere classified- Primary documented in this encounter [facility] note* Diagnosis Bilateral low back pain with sciatica, sciatica laterality unspecified, unspecified chronicity [facility] Narrative No data available for this section [facility] No data available for this section [facility] No data available for this section [facility] Reason for referral (narrative)* Outpatient Procedure (Routine) - Authorized Specialty Diagnoses / Procedures Referred By Sourav arriaga Referred To Contact [facility] [place] Diagnoses Mccaryt's esophagus with dysplasia Procedures EGD DIAGNOSTIC ESOPHAGOGASTRODUODENOSC OPY TRANSORAL DIAGNOSTIC Katrina Urena MD [address] [place] [address] [facility] [address] [address] Referral ID Status Reason Start Date Expiration Date Visits Requested Visits Authorized [id number] Authorized Auto-Generat ed Referral 04/09/2022 04/09/2023 1 1 [facility] for referral (narrative)* Outpatient Procedure (Routine) - Closed Specialty Diagnoses / Procedures Referred By Sourav arriaga Referred To Contact [facility] Diagnoses Mccarty's esophagus with dysplasia Procedures EGD DIAGNOSTIC ESOPHAGOGASTRODUODENOSC OPY TRANSORAL DIAGNOSTIC Katrina Urena MD [address] [place] [address] [facility] [address] [place] [address] Referral ID Status Reason Start Date Expiration Date V isits Requested Visits Authorized [id number] Closed Auto-Generate d Referral 04/09/2022 04/09/2023 1 1 [facility] for referral (narrative) Referred by: Perla LEE, Thao Fisher [facility] Reason for referral (narrative)* Diagnostic Procedure Only (Routine) - Closed Specialty Diagnoses / Procedures Referred By Sourav arriaga Referred To Contact XR IMAGING Diagnoses Bilateral low back pain with sciatica, sciatica laterality unspecified, unspecified chronicity Procedures XR SACROILIAC JOINTS 2V AP PELVIS/FERGUESON RADIOLOGIC EXAMINATION SACROILIAC JNTS <3 VIEWS Juma Monk MD [address] [place] [address] Xr Imaging Referral ID Status Reason Start Date Expiration Date V isits Requested Visits Authorized [id number] Closed Auto-Generate d Referral 12/05/2022 01/04/2024 1 1 [facility] for referral (narrative)* Diagnostic Procedure Only (Routine) - Closed Specialty Diagnoses / Procedures Referred By Sourav arriaga Referred To Contact XR IMAGING Diagnoses Bilateral low back pain with sciatica, sciatica laterality unspecified, unspecified chronicity Procedures XR SACROILIAC JOINTS 2V AP PELVIS/FERGUESON RADIOLOGIC EXAMINATION SACROILIAC JNTS <3 VIEWS Juma Monk MD [address] [id number] Xr Imaging Referral ID Status Reason Start Date Expiration Date V isits Requested Visits Authorized [id number] Closed Auto-Generate d Referral 12/05/2022 01/04/2024 1 1 [facility] for visit Narrative* Outpatient Procedure (Routine) - Closed Specialty Diagnoses / Procedures Referred By Contac t Referred To Contact [facility] Diagnoses Mccarty's esophagus with dysplasia Procedures EGD DIAGNOSTIC ESOPHAGOGASTRODUODENOSC OPY TRANSORAL DIAGNOSTIC Katrina Urena MD [address] [place] [address] [place] [address] Referral ID Status Reason Start Date Expiration Date V isits Requested Visits Authorized [id number] Closed Auto-Generate d Referral 04/09/2022 04/09/2023 1 1 [facility] for visit Narrative* Diagnostic Procedure Only (Routine) - Closed Specialty Diagnoses / Procedures Referred By Contac t Referred To Contact XR IMAGING Diagnoses Bilateral low back pain with sciatica, sciatica laterality unspecified, unspecified chronicity Procedures XR SACROILIAC JOINTS 2V AP PELVIS/FERGUESON RADIOLOGIC EXAMINATION SACROILIAC JNTS <3 VIEWS Juma Monk MD [address] [place] [address] Xr Imaging Referral ID Status Reason Start Date Expiration Date V isits Requested Visits Authorized [id number] Closed Auto-Generate d Referral 12/05/2022 01/04/2024 1 1 [facility] Reason for Referral Specialty Diagnoses / Procedures Referred By Contac t Referred To Contact MR IMAGING Diagnoses Sacrococcygeal disorders, not elsewhere classified Procedures MRI SACRUM/COCCYX WO IVCON MRI PELVIS W/O CONTRAST MATERIAL Juma Monk MD [address] [place] [address] Mr Imaging Referral ID Status Reason Start Date Expiration Date Visits Requested Visits Authorized [id number] Pending Review Auto-Generat ed Referral 12/17/2022 01/16/2024 1 1 Summary Purpose Family History No Family History Records Found No data available for this section No data available for this section No data available for this section No data available for this section No Family History Records Found No data available for this section No data available for this section No Family History Records Found Advance Directives No Advanced Directives Records FoundNo Advanced Directives Records FoundNo Advanced Directives Records Found Additional Source Comments Care Team (unrecognized sect ion and content) Marketing Program Manager Relationship Specialty Start Date End Date Pcp, No PCP - General 02/24/22 09/11/22 Marketing Program Manager Relationship Specialty Start Date End Date Pcp, No PCP - General 02/24/22 09/11/22 Marketing Program Manager Relationship Specialty Start Date End Date Pcp, No PCP - General 02/24/22 09/11/22 Marketing Program Manager Relationship Specialty Start Date End Date Mt Gooden DO [address] [place] [address] PCP - General Family Medicine 11/14/22 Thao Duncan(Historical), DO Referring Primary Care 08/07/22 Marketing Program Manager Relationship Specialty Start Date End Date Mt Gooden DO [address] [place] [address] PCP - General Family Medicine 11/14/22 Thao Duncan(Historical), DO Referring Primary Care 08/07/22 Marketing Program Manager Relationship Specialty Start Date End Date Mt Gooden DO [address] [place] [address] PCP - General Family Medicine 11/14/22 Thao Duncan(Historical), DO Referring Primary Care 08/07/22 Marketing Program Manager Relationship Specialty Start Date End Date Mt Gooden DO [address] [place] [address] PCP - General Family Medicine 11/14/22 Thao Duncan(Historical), DO Referring Primary Care 08/07/22 Source Comments (unrecognize d section and content) In the event this informatio n is protected by the Federal Confidentiality of Alcohol and Drug Abuse Patient Records regulations: The Federal rules restrict any use of the information to criminally investigate or prosecute any alcohol or drug abuse patient.[facility] Rehabilitation[facility] the event this information is protected by the Federal Confidentiality of Alcohol and Drug Abuse Patient Records regulations: The Federal rules restrict any use of the information to criminally investigate or prosecute any alcohol or drug abuse patient.[facility] RehabilitationIn the event this information is protected by the Federal Confidentiality of Alcohol and Drug Abuse Patient Records regulations: The Federal rules restrict any use of the information to criminally investigate or prosecute any alcohol or drug abuse patient.[facility] RehabilitationIn the event this information is protected by the Federal Confidentiality of Alcohol and Drug Abuse Patient Records regulations: The Federal rules restrict any use of the information to criminally investigate or prosecute any alcohol or drug abuse patient.[facility] RehabilitationIn the event this information is protected by the Federal Confidentiality of Alcohol and Drug Abuse Patient Records regulations: The Federal rules restrict any use of the information to criminally investigate or prosecute any alcohol or drug abuse patient.[facility] RehabilitationIn the event this information is protected by the Federal Confidentiality of Alcohol and Drug Abuse Patient Records regulations: The Federal rules restrict any use of the information to criminally investigate or prosecute any alcohol or drug abuse patient.[facility] RehabilitationIn the event this information is protected by the Federal Confidentiality of Alcohol and Drug Abuse Patient Records regulations: The Federal rules restrict any use of the information to criminally investigate or prosecute any alcohol or drug abuse patient.[facility] RehabilitationIn the event this information is protected by the Federal Confidentiality of Alcohol and Drug Abuse Patient Records regulations: The Federal rules restrict any use of the information to criminally investigate or prosecute any alcohol or drug abuse patient.[facility] Reason for Visit (unrecogniz ed section and content) Reason Comments Appointment Confirmation Reason Comments Consult Dx oa. Reason Comments Received Outside Medical Records Reason Comments Follow Up Denies any concerns Reason Comments Results (unrecognized sect ion and content) No Status Records FoundNo Status Records FoundNo Status Records Found INFORMATION SOURCE (unrecogn ized section and content) DATE CREATED AUTHOR 01/29/2023 [facility] DATE CREATED AUTHOR AUTHOR'S ORGANIZ ATION 06/27/2023 [facility] DATE CREATED AUTHOR AUTHOR'S ORGANIZ ATION 07/19/2023 [facility] FOR RECORDS PERTAINING TO PATIENTS WHO ARE OR HAVE BEEN ENROLLED IN A CHEMICAL DEPENDENCY/SUBSTANCEABUSE PROGRAM, SOME INFORMATION MAY BE OMITTED. This clinical summary was aggregated from multiple sources. Caution should be exercised in using it in the provision of clinical care. This summary normalizes information from multiple sources, and as a consequence, information in this document may materially change the coding, format and clinical context of patient data. In addition, data may be omitted in some cases. CLINICAL DECISIONS SHOULD BE BASED ON THE PRIMARY CLINICAL RECORDS. [employer] provides no warranty or guarantee of the accuracy or completeness of information in this document.
== END 2023-08-02 07:25 | disposition home or self-care (01) ==
LOC: VC 07:24
PROVIDERS: PCP Radiology Diagnostic Radiology; Visit Provider Radiology Diagnostic Radiology
DX: I80.01 Phlebitis and thrombophlebitis of superficial vessels of right lower extremity (principal)
CPT/HCPCS: 93971; G0463

== ENCOUNTER 2023-08-09 07:23 | Outpatient (OUT) | payer MEDICARE, OTHER, SELFPAY ==
--- NOTE | 2023-08-09 07:26 | VEIN_ITS ---
[address] [address] Patient Name: JOSE GONZALEZ MRN: [id number] date: 1950 Sex: M Assigned Patient Location: Current Patient Location: Accession/Order Number: [id number] Exam Date: 08/09/2023 07:35 Report Date: 08/09/2023 08:46 At the request of: JAMES ESPINOZA Procedure: VC Endovenous Ablation 1VeinLT EXAMINATION: VC Endovenous Ablation 1VeinLT HISTORY: Pain due to varicose veins of bilateral legs I83.813 The risks and benefits of the procedure had been previously discussed, and were rediscussed at length. Informed written consent was obtained. Stephanie Vela RN and Catalina Crespo RDMS, RVT assisted. Time out procedure was performed. The left lower extremity was prepared and draped in the usual sterile fashion to allow knee flexion in the sterile field. Duplex ultrasound probe was draped in a sterile cover, sterile transmission gel was used. Venous mapping was performed with the areas of dilation and large tributaries marked. The total length was 36 cm from the entry 3 cm above the ankle joint to 3 cm below the saphenofemoral popliteal junction. The diameter of the left small saphenous vein ranged from 5.7 mm. A 30 gauge needle and 1% buffered lidocaine was used to anesthetize the entry site. A 4 mm incision was made with a scalpel and the saphenous vein was entered percutaneously under direct ultrasound guidance with a micropuncture set, a single stick was successful in gaining access. A micro-guide wire was inserted and the needle removed. A micro-set including a dilator was inserted over the microwire and the needle and dilator were removed. A guide wire was inserted through the micro-set and guided through the saphenous vein to the saphenofemoral junction. The dilator was removed and an introducer sheath was inserted over the wire until the end of the sheath entered the saphenofemoral junction. The dilator and wire were removed and the 600 micron fiber was introduced and placed and positioned so that it extended beyond the sheath and was 3 cm distal to the saphenofemoral or saphenopopliteal junction. Final position of the fiber was determined by ultrasound guidance and duplex imaging. Tumescent anesthetic was delivered by ultrasound guidance. 100 cc of fluid was delivered along the entire course of the saphenous vein. The solution consisted of 1000 cc of normal saline with 40 mL of 1% lidocaine and 20 mL of sodium bicarbonate. A final positioning check was made. The energy source was turned on by means of the foot pedal and the fiber and sheath were withdrawn. The total number of Joules delivered was 2245. The laser was active for 281 seconds under continuous pulse, average laser use of 8 J. Laser start time 8:10 AM, 08/09/2023. Laser stop time 8:14 AM, 08/09/2023. A duplex ultrasound revealed compressibility and flow at the saphenofemoral junction immediately after the procedure. Hemostasis at the access site was achieved. The skin incision of the saphenous vein was closed with a 4 x 4. A compression stocking was applied. Postop instructions were given. A follow up appointment was recommended and scheduled. The patient tolerated the procedure well. Electronically authenticated by: DIPIKA PARRISH Date: 08/09/2023 08:46
--- OUTSIDE RECORDS SUMMARY | 2023-08-09 07:27 | XMS_ITS | CCD ---
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 Name Role Phone [place] Primary Care Physician Pcp, No Primary Care Provider UnavailThao Jones [...] sources) Azithromycin; Translations: [azithromycin] Drug Allergy 06-08-2022 [facility] (1 source) Azithromycin Drug Allergy 05-16-2023 [facility] Repository Medications Current Medications Medication Drug Class(es) [...] BID, # 180 tab(s), Refills(s) 3, Pharmacy: [facility]/pharmacy #[id number], 185, cm, 04/09/23 10:08:00 EDT, Height/Length Dosing, 154.1, kg, 04/09/23 10:08:00 EDT, Weight Dosing Start Date: 04/09/23 Status: Ordered Start: 02-19-2023 Eliquis 5 mg o ral tablet 2 tabs (10 mg) BID x 7 days then 1 tab bid, Oral, BID, initial fill only, # 74 tab(s), Refills(s) 0, Pharmacy: [facility]/pharmacy #[id number], 182, cm, 02/18/23 9:01:00 EDT, Height/Length [...] day(s), # 28 cap(s), Refills(s) 0, Pharmacy: [facility]/pharmacy #[id number], 185.4, cm, 03/13/23 2:24:00 EDT, Height/Length Dosing, 154.7, kg, 03/13/23 2:24:00 EDT, Weight Dosing Start Date: 03/13/23 Stop Date: 03/20/23 Status: Ordered Start: 12-02-2022 take 1 capsule by [facility] every eight hours cephalexin 500 mg Cap 500 mg = 1 cap(s), Oral, q8hr, # 30 cap(s), Refills(s) 0, Pharmacy: [facility]/pharmacy #[id number], 182, cm, 12/02/22 12:12:00 EDT, Height/Length [...] day(s), # 10 tab(s), Refills(s) 0, Pharmacy: [facility]/pharmacy #[id number], 185, cm, 06/22/22 11:58:00 EST, Height/Length Dosing, 146.3, kg, 06/22/22 11:58:00 EST, Weight Dosing Start Date: 06/22/22 Stop Date: 07/02/22 Status: Ordered Start: 12-14-2021 take 1 tablet by nicolas th at bedtime cyclobenzaprine 10 mg Tab 10 mg = 1 tab(s), Oral, Bedtime, # 30 tab(s), Refills(s) 1, Pharmacy: [facility]/pharmacy #[id number], 185, cm, 12/14/21 15:11:00 EDT, Height/Length Dosing, 144.7, kg, 12/14/21 15:11:00 EDT, Weight Dosing Start Date: 12/14/21 Status: Ordered doxycycline hyclate 100 mg oral capsule (1 source) Tetracycline-class Drug Start: 08-22-2021 take 1 capsule by mouth twice daily doxycycline hyclate 100 mg Cap 100 mg = 1 cap(s), Oral, BID, # 20 cap(s), Refills(s) 0, Pharmacy: [facility]/pharmacy #[id number], 185, cm, 08/22/21 9:05:00 EST, Height/Length Dosing, 145.2, kg, 08/22/21 9:05:00 EST, Weight Dosing Start Date: 08/22/21 Status: Ordered famotidine 40 mg oral tablet (20 sources) Histamine-2 Receptor Antagonist Start: 06-03-2023 take 1 tablet by mouth once daily at bedtime famotidine 40 mg Tab 40 mg = 1 tab(s), Oral, Once a day (at bedtime), # 90 tab(s), Refills(s) 3, Pharmacy: [facility]/pharmacy #[id number], 182, cm, 06/03/23 13:45:00 EDT, Height/Length Dosing, 146.6, kg, 06/03/23 13:45:00 EDT, Weight Dosing Start Date: 06/03/23 Status: Ordered Start: 01-22-2022 take 1 tablet by nicolas th once daily at bedtime famotidine 40 mg Tab 40 mg = 1 tab(s), Oral, Once a day (at bedtime), # 90 tab(s), Refills(s) 3, Pharmacy: [facility]/pharmacy #[id number], 182, cm, 12/10/22 10:07:00 EDT, Height/Length Dosing, 154.8, kg, 12/10/22 10:07:00 EDT, Weight Dosing Start Date: 12/31/22 Status: Ordered Start: 12-08-2020 take 1 tablet by nicolas th once daily at bedtime famotidine 40 mg Tab 40 mg = 1 tab(s), Oral, Once a day (at bedtime), # 90 tab(s), Refills(s) 3, Pharmacy: [facility]/pharmacy #[id number], 185, cm, 10/21/20 9:58:00 EST, Height/Length Dosing, 148.8, kg, 10/21/20 9:57:00 EST, Weight Dosing Start Date: 12/08/20 Status: Ordered Comment on above: Take 40 mg by mouth daily at bedtime. fluticasone propionate 0.05 mg/actuat metered dose nasal spray (20 sources) Corticosteroid Start: 3 Flonase 0.05 mg/inh [place] 2 spray(s), Nasal, Daily, 16 gram, Refill(s) 11, each nostril, [facility]/pharmacy #[id number], 182, cm, 11/08/22 10:10:00 EDT, Height/Length [...] Edema, # 90 tab(s), Refills(s) 3, Pharmacy: [facility]/pharmacy #[id number], 182, cm, 06/03/23 13:45:00 EDT, Height/Length Dosing, 146.6, kg, 06/03/23 13:45:00 EDT, Weight Dosing Start Date: 06/03/23 Status: Ordered Start: 12-18-2022 take 1 tablet by nciolas once daily as needed for edema Lasix 40 mg Tab 40 mg = 1 tab(s), Oral, Daily, PRN Edema, # 30 tab(s), Refills(s) 5, Pharmacy: [facility]/pharmacy #[id number], 182, cm, 12/10/22 10:07:00 EDT, Height/Length Dosing, 154.8, kg, 12/10/22 10:07:00 EDT, Weight Dosing Start Date: 12/18/22 Status: Ordered gabapentin 100 mg oral capsule (2 sources) Anti-epileptic Agent Start: 11-30-2020 take 1 capsule by mouth once daily gabapentin 100 mg Cap 100 mg = 1 cap(s), Oral, Daily, # 30 cap(s), Refills(s) 3, Pharmacy: [facility]/pharmacy #[id number], 185, cm, 10/21/20 9:58:00 EST, Height/Length [...] Daily, # 90 tab(s), Refills(s) 3, Pharmacy: [facility]/pharmacy #[id number], 185, cm, 04/09/23 10:08:00 EDT, Height/Length Dosing, 154.1, kg, 04/09/23 10:08:00 EDT, Weight Dosing Start Date: 05/05/23 Status: Ordered Start: 10-14-2020 take 1 tablet by nicolas once daily lisinopril 10 mg Tab 10 mg = 1 tab(s), Oral, Daily, # 90 tab(s), Refills(s) 1, Pharmacy: [facility]/pharmacy #[id number], 185, cm, 03/15/22 8:30:00 EDT, Height/Length Dosing, 146, kg, 03/15/22 8:30:00 EDT, Weight Dosing Start Date: 04/20/22 Status: Ordered Comment on above: Take by mouth. metFORMIN hydrochloride 1000 mg oral tablet (20 sources) Biguanide Start: 12-31-2022 take 1 tablet by mouth twice daily metformin 1000 mg Tab 1,000 mg = 1 tab(s), Oral, BID, # 180 tab(s), Refills(s) 3, [id number], 182, cm, 12/10/22 10:07:00 EDT, Height/Length Dosing, 154.8, kg, 12/10/22 10:07:00 EDT, Weight Dosing Start Date: 12/31/22 Status: Ordered Start: 12-10-2022 take 1 tablet by nicolas th twice daily metformin 1000 mg Tab 1,000 mg = 1 tab(s), Oral, BID, # 180 tab(s), Refills(s) 3, [facility], 182, cm, 12/10/22 10:07:00 EDT, Height/Length [...] spasm, # 120 tab(s), Refills(s) 0, [id number], 182, cm, 03/01/23 13:14:00 EDT, Height/Length Dosing, 153.1, kg, 03/01/23 13:14:00 EDT, Weight Dosing Start Date: 03/04/23 Status: Ordered methylPREDNISolone 4 mg oral tablet (1 source) Corticosteroid Start: 2021 End: 2021 Medrol 4 mg Tab = 1 packet(s), Oral, As Directed, as directed on package labeling, X 6 day(s), # 21 tab(s), Refills(s) 2, Pharmacy: [facility]/pharmacy #[id number], 185, cm, 12/14/21 15:11:00 EDT, Height/Length [...] Daily, # 90 cap(s), Refills(s) 3, Pharmacy: [facility]/pharmacy #6173, 182, cm, 11/08/22 10:10:00 EDT, Height/Length Dosing, 151.1, kg, 11/08/22 10:10:00 EDT, Weight Dosing Start Date: 11/15/22 Status: Ordered Comment on above: Take 40 mg by mouth once daily. omeprazole 40 mg Cap-DR (2 sources) Start: 2021 take 1 capsule by mouth once daily omeprazole 40 mg Cap-DR 40 mg = 1 cap(s), Oral, Daily, # 90 cap(s), Refills(s) 3, Pharmacy: [facility]/pharmacy #6173, 182.9, cm, 09/18/21 11:36:00 EST, Height/Length [...] Daily, # 90 tab(s), Refills(s) 3, Pharmacy: [facility]/pharmacy #6173, 185, cm, 06/26/23 9:53:00 EST, Height/Length Dosing, 147, kg, 06/26/23 9:53:00 EST, Weight Dosing Start Date: 07/02/23 Status: Ordered Start: 06-03-2023 take 1 tablet by nicolas once daily pioglitazone 30 mg Tab 30 mg = 1 tab(s), Oral, Daily, # 90 tab(s), Refills(s) 3, Pharmacy: [facility]/pharmacy #6173, 182, cm, 06/03/23 13:45:00 EDT, Height/Length Dosing, 146.6, kg, 06/03/23 13:45:00 EDT, Weight Dosing Start Date: 06/03/23 Status: Ordered Start: 11-08-2022 take 1 tablet by [facility] once daily Actos 45 mg Tab 45 mg = 1 tab(s), Oral, Daily, # 90 tab(s), Refills(s) 3, Pharmacy: [facility]/pharmacy #6173, 182, cm, 11/08/22 10:10:00 EDT, Height/Length Dosing, 151.1, kg, 11/08/22 10:10:00 EDT, Weight Dosing Start Date: 11/08/22 Status: Ordered Start: 05-10-2022 take 1 tablet by [facility] once daily Actos 15 mg Tab 15 mg = 1 tab(s), Oral, Daily, # 90 tab(s), Refills(s) 3, [id number], 185, cm, 03/15/22 8:30:00 EDT, Height/Length Dosing, 146, kg, 03/15/22 8:30:00 EDT, Weight Dosing Start Date: 05/10/22 Status: Ordered Start: 07-22-2020 take 1 tablet by [facility] once daily Actos 15 mg Tab 15 mg = 1 tab(s), Oral, Daily, # 90 tab(s), Refills(s) 3, Pharmacy: [facility]/pharmacy #[id number], 185, cm, 07/22/20 10:49:00 EST, Height/Length Dosing, 148.4, kg, 07/22/20 10:49:00 EST, Weight Dosing Start Date: 07/22/20 Status: Ordered polyethylene glycol 3350 559493 mg / potassium chloride 1480 mg / sodium bicarbonate 5720 mg / sodium chloride 15789 mg powder for oral solution (16 sources) Osmotic Laxative Start: 01-23-2023 NuLYTELY Mendez oral powder for reconstitution See Instructions, 1 EA, Refill(s) 0, See physician instructions prior to procedure., [facility]/pharmacy #[id number], 185, cm, 01/23/23 9:12:00 EDT, Height/Length Dosing, 152.1, kg, 01/23/23 9:12:00 EDT, Weight Dosing Start Date: 01/23/23 Status: Ordered predniSONE 20 mg oral tablet (1 source) Start: 06-22-2022 End: 06-29-2022 take 2 tablets by mouth once daily predniSONE 20 mg Tab 40 mg = 2 tab(s), Oral, Daily, X 7 day(s), # 14 tab(s), Refills(s) 0, Pharmacy: [facility]/pharmacy #[id number], 185, cm, 06/22/22 11:58:00 EST, Height/Length [...] Daily, # 90 tab(s), Refills(s) 1, Pharmacy: [facility]/pharmacy #6173, 185, cm, 06/22/22 11:58:00 EST, Height/Length Dosing, 146.3, kg, 06/22/22 11:58:00 EST, Weight Dosing Start Date: 07/02/22 Status: Ordered Start: 05-03-2021 take 1 tablet by nicolas th once daily Januvia 100 mg Tab 100 mg = 1 tab(s), Oral, Daily, # 90 tab(s), Refills(s) 1, Pharmacy: [facility]/pharmacy #6173, 185, cm, 12/14/21 15:11:00 EDT, Height/Length [...] Lasix, # 90 tab(s), Refills(s) 3, Pharmacy: [facility]/pharmacy #6173, 182, cm, 06/03/23 13:45:00 EDT, Height/Length Dosing, 146.6, kg, 06/03/23 13:45:00 EDT, Weight Dosing Start Date: 06/03/23 Status: Ordered Start: 12-18-2022 take 1 tablet by nicolas once daily as needed for edema potassium chloride 20 mEq ER Tab 20 mEq = 1 tab(s), Oral, Daily, PRN Edema, Take on the days he takes Lasix, # 30 tab(s), Refills(s) 5, Pharmacy: [facility]/pharmacy #6173, 182, cm, 12/10/22 10:07:00 EDT, Height/Length [...] oral hypoglycemic medication; Translations: [long term care pharmacist (current) use of oral hypoglycemic drugs] Onset: [...] Test Name Value Interpretation Reference Range Teri adhly Physician Orderon 07-18-2023 Physician Order [id number]#1.00T IFF Normal [facility] Consent for Treatmenton Consent for Treatment [id number]#1.00T IFF Normal [facility] Heart and Vascular Office/Cl inic Noteon 07-17-2023 Heart and Vascular Office/Clinic Note Normal [facility] Comment on above: Result Comment: Elec tronically Signed By: Chidi ESPINAL, Matty Mills\.br\Date and Time Signed: 07/17/23 10:18 EST Pulmonary Function Studieson 07-15-2023 Pulmonary Function Studies Normal [facility] Comment on above: Result Comment: Elec tronically Signed By: Chidi ESPINAL, Matty Mills\.br\Date and Time Signed: 07/15/23 09:48 EST Consent for Treatmenton 06-13 Consent for Treatment [id number]#1.00T IFF Normal [facility] Pulmonary Function Testson 09-09-2022 Pulmonary Function Tests [id number]#1.00T IFF Normal [facility] Respiratory Therapy Noteson 07-10-2023 Respiratory Therapy Notes [id number]#1.00T IFF Normal [facility] Consent for Treatmenton 06-13 Consent for Treatment [id number]#1.00T IFF Normal [facility] Oncology Noteon 07-09-2023 Oncology Note Normal [facility] Comment on above: Result Comment: Elec tronically Signed By: Charles MARTINEZ, Isabelle\.br\Date and Time Signed: 07/09/23 10:41 EST Oncology Progress Noteon Oncology Progress Note Normal [facility] Auto Diffon 07-08-2023 Basophils/100 WBC (Bld) 0.7 % Normal 0.0-2.0 [facility] Comment on above: Order Comment: Order Added by Discern Expert. Performed By: #### 2 317823, 1587843, 53575102, 5820818 ####[address] [address] Basophils/Leukocyte s Auto (Bld) [Pure # fraction] 0.1 E9/L Normal 0.0-0.2 [facility] Comment on above: Order Comment: Order Added by Discern Expert. Performed By: #### 2 231053, 4912198, 21766047, 3721917 ####[address] [address] Eosinophils/100 WBC (Bld) 1.8 % Normal 0.0-8.0 [facility] Comment on above: Order Comment: Order Added by Discern Expert. Performed By: #### 2 732256, 0732242, 42542620, 9006602 ####[address] [address] Eosinophils/Leukocy [place] Auto (Bld) [Pure # fraction] 0.1 E9/L Normal 0.0-0.5 [facility] Comment on above: Order Comment: Order Added by Discern Expert. Performed By: #### 2 272625, 2484493, 57377709, 8358301 ####[address] [address] Lymphocytes/100 WBC (Bld) 31.1 % Normal 14.0-50.0 [facility] Comment on above: Order Comment: Order Added by Discern Expert. Performed By: #### 2 550675, 2307352, 15191682, 7735372 ####[address] [address] Lymphocytes/Leukocy [place] Auto (Bld) [Pure # fraction] 2.5 E9/L Normal 1.0-4.0 [facility] Comment on above: Order Comment: Order Added by Discern Expert. Performed By: #### 2 615937, 5557459, 66323139, 6428027 ####[address] [address] Monocytes/100 WBC (Bld) 8.6 % Normal 4.0-14.0 [facility] Comment on above: Order Comment: Order Added by Discern Expert. Performed By: #### 2 962944, 0482156, 77617372, 0819911 ####[address] [place] [address] Monocytes/Leukocyte s Auto (Bld) [Pure # fraction] 0.7 E9/L Normal 0.2-1.0 [facility] Comment on above: Order Comment: Order Added by Discern Expert. Performed By: #### 2 012477, 3727015, 16240820, 3978141 ####[address] [address] Neutrophils/100 WBC (Bld) 57.8 % Normal 36.0-75.0 [facility] Comment on above: Order Comment: Order Added by Discern Expert. Performed By: #### 2 920492, 1393857, 53977123, 4614390 ####[address] [address] Neutrophils/Leukocy [place] Auto (Bld) [Pure # fraction] 4.6 E9/L Normal 2.0-7.5 [facility] Comment on above: Order Comment: Order Added by Discern Expert. Performed By: #### 2 212316, 7509684, 72672501, 0649444 ####[address] [address] CBC w/ Auto Diffon Erythrocyte distribution width (RBC) [Ratio] 15.1 % High 10.9-14.2 [facility] Comment on above: Performed By: #### 2 852974, 1940098, 05887381, 6067150 ####[address] [place] [address] Hematocrit (Bld) [Volume fraction] 40.3 % Normal 37.7-49.0 [facility] Comment on above: Performed By: #### 2 891395, 4471441, 24534285, 4385622 ####[address] [address] Hemoglobin (Bld) [Mass/Vol] 13.2 g/dL Low 13.5-17.5 [facility] Comment on above: Performed By: #### 2 994359, 7799662, 58966676, 3654693 ####[address] MCH (RBC) [Entitic mass] 31.1 pg Normal 27.0-34.0 [facility] Comment on above: Performed By: #### 2 296096, 6544304, 04855318, 0203089 ####[address] MCHC (RBC) [Mass/Vol] 32.8 g/dL Normal 31.4-36.0 [facility] Comment on above: Performed By: #### 2 626495, 4007607, 36993828, 5890485 ####[place] [address] MCV (RBC) [Entitic vol] 94.6 fL Normal 80.0-100.0 [facility] Comment on above: Performed By: #### 2 847780, 3997716, 26297389, 7568564 ####[address] [address] Platelet mean volume (Bld) [Entitic vol] 7.9 fL Normal 6.4-10.8 [facility] Comment on above: Performed By: #### 2 573081, 7672095, 79391701, 5417042 ####[address] [address] Platelets (Bld) [#/Vol] 195.0 E9/L Normal 150.0-500.0 [facility] Comment on above: Performed By: #### 2 758377, 9015258, 49814768, 0836720 ####[address] [address] RBC (Bld) [#/Vol] 4.3 E12/L Normal 4.3-5.9 [facility] Comment on above: Performed By: #### 2 561774, 3227329, 85119605, 8827021 ####[address] [place] [address] WBC corrected for nucl RBC Auto (Bld) [#/Vol] 7.9 E9/L Normal 4.0-11.0 [facility] Comment on above: Performed By: #### 2 915783, 4446894, 78575286, 8598177 ####[address] [address] CMPon 07-08-2023 Albumin [Mass/Vol] 3.8 g/dL Normal 3.3-5.0 [facility] Comment on above: Performed By: #### 2 492983, 9901609, 35717127, 0299802 ####[address] [address] Albumin/Globulin (S) [Mass conc ratio] 0.9 Low 1.1-2.2 [facility] Comment on above: Performed By: #### 2 526966, 7440849, 87341582, 3862846 ####[address] [address] ALP [Catalytic activity/Vol] 52 Int._Unit/L Normal 21-98 [facility] Comment on above: Performed By: #### 2 022524, 5342631, 26855852, 1167189 ####[address] [address] ALT No additional P-5'-P [Catalytic activity/Vol] 36 Int._Unit/L Normal 6-46 [facility] Comment on above: Performed By: #### 2 670960, 5483958, 66560685, 1646437 ####[address] [address] Anion gap [Moles/Vol] 14 mmol/L Normal 6-16 [facility] Comment on above: Performed By: #### 2 127939, 6409739, 69624592, 3926211 ####[facility] [address] [place] [address] AST [Catalytic activity/Vol] 49 Int._Unit/L High 5-43 [facility] Comment on above: Performed By: #### 2 825836, 9910310, 16901223, 5017320 ####[facility] [address] [place] [address] Bilirubin [Mass/Vol] 0.5 mg/dL Normal 0.0-1.1 [facility] Comment on above: Performed By: #### 2 330720, 0276984, 81132736, 4457443 ####[facility] [address] [place] [address] Calcium [Mass/Vol] 9.4 mg/dL Normal 8.9-11.1 [facility] Comment on above: Performed By: #### 2 329654, 1298010, 52245095, 3556703 ####[facility] [address] [place] [address] Chloride [Moles/Vol] 100 mmol/L Low 101-111 [facility] Comment on above: Performed By: #### 2 817446, 1922227, 79579735, 7711635 ####[facility] [address] [place] [address] CO2 [Moles/Vol] 28 mmol/L Normal 21-31 [facility] Comment on above: Performed By: #### 2 058738, 2184268, 00156695, 2637956 ####[facility] [address] [place] [address] Creatinine [Mass/Vol] 1.2 mg/dL Normal 0.5-1.3 [facility] Comment on above: Performed By: #### 2 854818, 6732293, 73695910, 5855903 ####[facility] [address] [place] [address] Globulin (S) [Mass/Vol] 4.1 g/dL High 1.4-4.0 [facility] Comment on above: Performed By: #### 2 183707, 3347336, 99821459, 9650921 ####[facility] [address] [place] [address] Glucose [Mass/Vol] 101 mg/dL Normal 55-199 [facility] Comment on above: Result Comment: If t his glucose result represents a fasting glucose, interpretation should refer to the following reference range: 55-99 mg/dL Performed By: #### 2 788075, 6148054, 18757099, 8346986 ####[facility] [address] [place] [address] Potassium [Moles/Vol] 4.7 mmol/L Normal 3.5-5.3 [facility] Comment on above: Performed By: #### 2 087372, 6449973, 04798182, 5413490 ####[facility] [address] [place] [address] Protein [Mass/Vol] 7.9 g/dL High 6.0-7.8 [facility] Comment on above: Performed By: #### 2 499062, 9064491, 88918959, 5853138 ####[facility] [address] [place] [address] Sodium [Moles/Vol] 137 mmol/L Normal 135-145 [facility] Comment on above: Performed By: #### 2 410514, 0381614, 74813988, 3279669 ####[facility] [address] [place] [address] Urea nitrogen [Mass/Vol] 20 mg/dL Normal 5-21 [facility] Comment on above: Performed By: #### 2 868250, 8452507, 78140518, 8026151 ####[facility] [address] [place] [address] Urea nitrogen/Creatinine [Mass ratio] 17 No Units Normal 10-20 [facility] Comment on above: Performed By: #### 2 826033, 5681658, 29801420, 6477910 ####[facility] [address] [place] [address] Consent for Treatmenton 06-13 Consent for Treatment [id number]#1.00T IFF Normal [facility] D-Dimeron 07-08-2023 Fibrin D-dimer FEU (PPP) [Mass/Vol] 323 [id number] Normal 215-500 [facility] Comment on above: Result Comment: This assay [...] skin infectionsLiver cirrhosisPregnancy Performed By: #### 2 309138 ####[facility] [address] [place] [address] eGFRon 07-08-2023 GFR/1.73 sq M.predicted among non-blacks MDRD (S/P/Bld) [Vol rate/Area] 63 mL/min/1.73 m2 Normal >=59 [facility] Comment on above: Order Comment: Order added by Discern Expert. 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 Kidney failure is indicated at less than 15 mL/min/1.73m2. Performed By: #### 2 047099, 8766532, 69031408, 6978697 ####[facility] [address] [place] [address] Immunization Recordson 07-02 Immunization Records [id number]#1.00T IFF Normal [facility] Consent for Treatmenton 11-1 5-2023 Consent for Treatment [id number]#1.00T IFF Normal [facility] Heart and Vascular Office/Cl inic Noteon 06-26-2023 Heart and Vascular Office/Clinic Note Normal [facility] Comment on above: Result Comment: Elec tronically Signed By: Chidi ESPINAL, Matty Mello.br\Date and Time Signed: 06/26/23 10:23 EST Physician Orderon 06-26-2023 Physician Order [id number]#1.00 TIFF Normal [facility] Consultation Noteon 06-22-20 Consultation Note [id number]#1.00T IFF Normal [facility] Consultation Note [id number]#1.00T IFF Normal [facility] US LE Venous Duplex Insuffic iency Bilaton 06-12-2023 US LE Venous Duplex Insufficiency Bilat Normal [facility] Consent for Treatmenton 05-14 Consent for Treatment [id number]#1.00T IFF Normal [facility] RAD - MISCon 06-11-2023 RAD - MISC [id number]#1.00 TIFF Normal [facility] Consultation Noteon 06-09-20 Consultation Note [id number]#1.00TI FF Normal [facility] Consultation Note [id number]#1.00T IFF Normal [facility] Physician Referralon 023 Physician Referral [id number]#1.00 TIFF Normal [facility] CHEMISTRYOrdered By: SYSTEM SYSTEM on 06-03-2023 Albumin [...] Consent for Treatmenton 05-13 Consent for Treatment [id number]#1.00T IFF Normal [facility] Family Medicine Office/Clini c Noteon 06-03-2023 [facility] [place] Medicine Office/Clinic Note Normal [facility] Comment on above: Result Comment: Elec tronically Signed By: Mt GOODEN DO, FAAFP\Date and Time Signed: 06/03/23 14:43 EDT Hep Func Panelon 06-03-2023 Albumin [Mass/Vol] 3.7 g/dL Normal 3.3-5.0 [facility] Comment on above: Performed By: #### 2 488881, 4231527 ####[facility] [address] [place] [address] Albumin/Globulin (S) [Mass conc ratio] 0.9 Low 1.1-2.2 [facility] Comment on above: Performed By: #### 2 387344, 0307739 ####[facility] [address] [place] [address] ALP [Catalytic activity/Vol] 53 Int._Unit/L Normal 21-98 [facility] Comment on above: Performed By: #### 2 918462, 0047348 ####[facility] [address] [place] [address] ALT No additional P-5'-P [Catalytic activity/Vol] 25 Int._Unit/L Normal 6-46 [facility] Comment on above: Performed By: #### 2 550813, 5428921 ####[facility] [address] [place] [address] AST [Catalytic activity/Vol] 34 Int._Unit/L Normal 5-43 [facility] Comment on above: Performed By: #### 2 042302, 5920411 ####[facility] [address] [place] [address] Bilirubin [Mass/Vol] 0.4 mg/dL Normal 0.0-1.1 [facility] Comment on above: Performed By: #### 2 873983, 6980363 ####[facility] [address] [place] [address] Bilirubin.direct [Mass/Vol] 0.1 mg/dL Normal 0.1-0.4 [facility] Comment on above: Performed By: #### 2 027753, 3155832 ####[facility] [address] [place] [address] Bilirubin.indirect [Mass or moles/Vol] 0.3 mg/dL Normal 0.1-0.9 [facility] Comment on above: Performed By: #### 2 431935, 0735493 ####[facility] [address] [place] [address] Globulin (S) [Mass/Vol] 4.1 g/dL High 1.4-4.0 [facility] Comment on above: Performed By: #### 2 185288, 8621591 ####[address] [address] Protein [Mass/Vol] 7.8 g/dL Normal 6.0-7.8 [facility] Comment on above: Performed By: #### 2 107739, 6768401 ####[facility] [address] [place] [address] ZqvM9yzi 06-03-2023 HbA1c (Bld) [Mass fraction] 7.2 % High <=5.9 [facility] Comment on above: Performed By: #### 7 [id number] ####[facility] [address] [place] [address] Lipid Panelon 06-03-2023 Cholesterol [Mass/Vol] 196 mg/dL Normal 120-200 [facility] Comment on above: Performed By: #### 2 548559, 0290276 ####[facility] [address] [place] [address] Cholesterol in HDL [Mass/Vol] 42 mg/dL Invalid Interpretation Code [facility] Comment on above: Result Comment: HDL > or equal to 60 mg/dL: Low cardiovascular riskHDL < 40 mg/dL : High cardiovascular risk Performed By: #### 2 827603, 2138678 ####[facility] [address] [place] [address] Cholesterol in LDL [Mass/Vol] 129 mg/dL Normal <=129 [facility] Comment on above: Performed By: #### 2 975794, 2283426 ####[facility] [address] [place] [address] Cholesterol in VLDL [Mass/Vol] 30 mg/dL Normal 7-40 [facility] Comment on above: Performed By: #### 2 053095, 7586153 ####[facility] [address] [place] [address] Triglyceride [Mass/Vol] 151 mg/dL High <=149 [facility] Comment on above: Performed By: #### 2 695311, 4195849 ####[facility] [address] [place] [address] Patient Educationon 06-03-20 Patient Education Normal [facility] Physician Orderon 05-30-2023 Physician Order [id number]#1.00T IFF [facility] Consultation Noteon 05-28-20 Consultation Note [id number]#1.00T IFF [facility] Consultation Noteon 05-27-20 Consultation Note [id number]#1.00T IFF Normal [facility] Immunization Recordson 05-22 Immunization Records [id number]#1.00 TIFF Normal [facility] Consultation Noteon 05-16-20 Consultation Note [id number]#1.00T IFF [facility] Consent for Procedure/Surger yon 04-23-2023 Consent for Procedure/Surgery [id number]#1.00 CD:127 Normal [facility] Consent for Treatmenton 04-12 Consent for Treatment [id number]#1.00C D:127 [facility] Consent to Photographon 04-12 Consent to Photograph [id number]#1.00 CD:127 [facility] Correspondence - Woundon Correspondence - Wound [id number]#1.00 CD:127 [facility] Correspondence - Wound [id number]#1.00 CD:127 [facility] Multi-Wound Charton 04-23-20 Multi-Wound Chart [id number]#1.00 CD:127 [facility] Nursing Assessment - Woundon 04-23-2023 Nursing Assessment - Wound [id number]#2.00 CD:127 [facility] Nursing Assessment - Wound [id number]#1.00 CD:127 [facility] Nursing Note - Woundon 04-23 Nursing Note - Wound [id number]#1.00 CD:127 [facility] Physician Orderon 04-23-2023 Physician Order [id number]#1.00 CD:127 [facility] Procedure - Woundon 04-23-20 Procedure - Wound [id number]#1.00 CD:127 [facility] Progress Note - Woundon 04-12 Progress Note - Wound [id number]#1.00 CD:127 [facility] Lab Miscellaneous-LCon 04-12 Lab Miscellaneous COMMENT Invalid Interpretation Code [facility] Comment on above: Result Comment: Test Ordered: 952385 Antithrombin ActivityAntithrombin Activity 109 % BNReference Range: 75-135Direct Xa inhibitor anticoagulants such as rivaroxaban, apixaban andedoxaban will lead to spuriously elevated antithrombin activitylevels possibly masking a deficiency.Performed at: [facility] [address] [place], [place] [id number] PhD Quinn Pinedo Performed By: #### 1 [id number] ####[facility] [address] [place] [address] COAGULATIONOrdered By: Claudia Caballero on 04-10-2023 Fibrin D-dimer FEU (PPP) [Mass/Vol] 552 ng/mL FEU Invalid Interpretation Code 215 - 500 ng/mL FEU [facility] Auto Coag Comment on above: Result Comment: Resu lts Called To Shabana Zendejas By JUDIE_ And Read Back For Confirmation On 04/10/2023 08:58:49 EDT_. Consent for Treatmenton 03-14 Consent for Treatment [id number]#1.00C D:127 Normal [facility] D-Dimeron 04-10-2023 Fibrin D-dimer FEU (PPP) [Mass/Vol] 552 CD:[id number] Abnormal 215-500 [facility] Comment on above: Result Comment: Resu lts [...] skin infectionsLiver cirrhosisPregnancy Performed By: #### 2 020396 ####[facility] [address] [place] [address] Lab Miscellaneous-LCon 04-10 Test Code 484939 Invalid Interpretation Code [facility] Comment on above: Performed By: #### 1 [id number] ####[facility] [address] [place] [address] Test Name AT activ Invalid Interpretation Code [facility] Comment on above: Performed By: #### 1 [id number] ####[facility] [address] [place] [address] Reference Laboratory Testing Ordered By: Sylwia Lubin on 04-10-2023 Test Code 273881 Invalid Interpretation Code [facility] SendOutsSS Test Name AT activ Invalid Interpretation Code [facility] SendOutsSS Consent for Treatmenton 03-13 Consent for Treatment [id number]#1.00C D:127 Normal [facility] Oncology Noteon 04-09-2023 Oncology Note Normal [facility] Comment on above: Result Comment: Elec tronically Signed By: Charles MARTINEZ, Isabelle\.br\Date and Time Signed: 04/09/23 11:08 EDT Oncology Progress Noteon Oncology Progress Note Normal [facility] Auto Diffon 04-05-2023 Basophils/100 WBC (Bld) 0.7 % Normal 0.0-2.0 [facility] Comment on above: Order Comment: Order Added by Discern Expert. Performed By: #### 2 900289, 7747492, 1865924, 69413350 ####[facility] [address] [place] [address] Basophils/Leukocyte s Auto (Bld) [Pure # fraction] 0.0 E9/L Normal 0.0-0.2 [facility] Comment on above: Order Comment: Order Added by Discern Expert. Performed By: #### 2 652582, 8949008, 5246721, 89158241 ####[facility] [address] [place] [address] Eosinophils/100 WBC (Bld) 3.3 % Normal 0.0-8.0 [facility] Comment on above: Order Comment: Order Added by Discern Expert. Performed By: #### 2 165158, 9917301, 3704356, 30127595 ####[address] [address] Eosinophils/Leukocy [place] Auto (Bld) [Pure # fraction] 0.2 E9/L Normal 0.0-0.5 [facility] Comment on above: Order Comment: Order Added by Discern Expert. Performed By: #### 2 583993, 5888021, 2313810, 21666054 ####[address] [address] Lymphocytes/100 WBC (Bld) 27.4 % Normal 14.0-50.0 [facility] Comment on above: Order Comment: Order Added by Discern Expert. Performed By: #### 2 088935, 4540715, 2592765, 45005167 ####[address] [address] Lymphocytes/Leukocy [place] Auto (Bld) [Pure # fraction] 1.6 E9/L Normal 1.0-4.0 [facility] Comment on above: Order Comment: Order Added by Discern Expert. Performed By: #### 2 903632, 8781234, 2038493, 14234540 ####[address] [address] Monocytes/100 WBC (Bld) 8.2 % Normal 4.0-14.0 [facility] Comment on above: Order Comment: Order Added by Discern Expert. Performed By: #### 2 343633, 1547986, 3718772, 79978342 ####[address] [address] Monocytes/Leukocyte s Auto (Bld) [Pure # fraction] 0.5 E9/L Normal 0.2-1.0 [facility] Comment on above: Order Comment: Order Added by Discern Expert. Performed By: #### 2 877842, 4657630, 1960817, 00174392 ####[address] [place] [address] Neutrophils/100 WBC (Bld) 60.4 % Normal 36.0-75.0 [facility] Comment on above: Order Comment: Order Added by Discern Expert. Performed By: #### 2 001646, 8002053, 4102206, 71653124 ####[address] [address] Neutrophils/Leukocy [place] Auto (Bld) [Pure # fraction] 3.6 E9/L Normal 2.0-7.5 [facility] Comment on above: Order Comment: Order Added by Discern Expert. Performed By: #### 2 702384, 5656587, 2127956, 10240949 ####[address] [address] CBC w/ Auto Diffon Erythrocyte distribution width (RBC) [Ratio] 14.5 % High 10.9-14.2 [facility] Comment on above: Performed By: #### 2 990999, 6290472, 0551559, 35603395 ####[address] [address] Hematocrit (Bld) [Volume fraction] 39.5 % Normal 37.7-49.0 [facility] Comment on above: Performed By: #### 2 288994, 6470045, 9382474, 76384928 ####[address] [address] Hemoglobin (Bld) [Mass/Vol] 13.2 g/dL Low 13.5-17.5 [facility] Comment on above: Performed By: #### 2 282084, 1855164, 2780066, 54103814 ####[address] [place] [address] MCH (RBC) [Entitic mass] 31.3 pg Normal 27.0-34.0 [facility] Comment on above: Performed By: #### 2 953416, 2072460, 6605923, 45019416 ####[place] [address] MCHC (RBC) [Mass/Vol] 33.4 g/dL Normal 31.4-36.0 [facility] Comment on above: Performed By: #### 2 091406, 6924677, 1997262, 60010435 ####[place] [address] MCV (RBC) [Entitic vol] 93.8 fL Normal 80.0-100.0 [facility] Comment on above: Performed By: #### 2 561989, 6572759, 8678268, 74542476 ####[address] [address] Platelet mean volume (Bld) [Entitic vol] 7.8 fL Normal 6.4-10.8 [facility] Comment on above: Performed By: #### 2 693470, 9953716, 8027498, 27947878 ####[address] [address] Platelets (Bld) [#/Vol] 152.0 E9/L Normal 150.0-500.0 [facility] Comment on above: Performed By: #### 2 807321, 6342341, 4331024, 33098053 ####[address] [address] RBC (Bld) [#/Vol] 4.2 E12/L Low 4.3-5.9 [facility] Comment on above: Performed By: #### 2 900396, 2642920, 1974926, 41522416 ####[address] [address] WBC corrected for nucl RBC Auto (Bld) [#/Vol] 6.0 E9/L Normal 4.0-11.0 [facility] Comment on above: Performed By: #### 2 796786, 9138974, 8742726, 57704328 ####[facility] [address] [place] [address]157 CHEMISTRYOrdered By: SYSTEM SYSTEM on 04-05-2023 Albumin [...] 136 mmol/L Normal 135 - 145 mmol/L [facility] Remisol Urea nitrogen [Mass/Vol] 17 mg/dL Normal 5 - 21 mg/dL [facility] Remisol Urea nitrogen/Creatinine [Mass ratio] 17 mg/mg Normal 10 - 20 [facility] Remisol CMPon 04-05-2023 Anion gap [Moles/Vol] 13 mmol/L Normal 6-16 [facility] Comment on above: Performed By: #### 2 320652, 9457983, 8834924, 99255364 ####[facility] [address] [place] [address] Calcium [Mass/Vol] 8.8 mg/dL Low 8.9-11.1 [facility] Comment on above: Performed By: #### 2 381129, 5400486, 8109938, 60816779 ####[facility] [address] [place] [address] Chloride [Moles/Vol] 97 mmol/L Low 101-111 [facility] Comment on above: Performed By: #### 2 920039, 6605441, 5772139, 61900736 ####[facility] [address] [place] [address] CO2 [Moles/Vol] 30 mmol/L Normal 21-31 [facility] Comment on above: Performed By: #### 2 439657, 5790285, 7653583, 09762727 ####[facility] [address] [place] [address] Glucose [Mass/Vol] 153 mg/dL Normal 55-199 [facility] Comment on above: Result Comment: If t his glucose result represents a fasting glucose, interpretation should refer to the following reference range: 55-99 mg/dL Performed By: #### 2 993369, 0267654, 3119908, 79297458 ####[facility] [address] [place] [address] Potassium [Moles/Vol] 3.9 mmol/L Normal 3.5-5.3 [facility] Comment on above: Performed By: #### 2 207767, 6753431, 2258039, 54232842 ####[facility] [address] [place] [address] Sodium [Moles/Vol] 136 mmol/L Normal 135-145 [facility] Comment on above: Performed By: #### 2 719158, 2402565, 1153858, 26287234 ####[address] [address] Albumin [Mass/Vol] 3.5 g/dL Normal 3.3-5.0 [facility] Comment on above: Performed By: #### 2 243125, 7814988, 8789319, 93140408 ####[address] [address] Albumin/Globulin (S) [Mass conc ratio] 1.0 Low 1.1-2.2 [facility] Comment on above: Performed By: #### 2 293504, 3431920, 2436211, 48989624 ####[facility] [address] [place] [address] ALP [Catalytic activity/Vol] 51 Int._Unit/L Normal 21-98 [facility] Comment on above: Performed By: #### 2 671103, 2261013, 1304576, 10204023 ####[address] [place] [address] ALT No additional P-5'-P [Catalytic activity/Vol] 31 Int._Unit/L Normal 6-46 [facility] Comment on above: Performed By: #### 2 543468, 2375990, 1701203, 13612849 ####[facility] [address] [place] [address] AST [Catalytic activity/Vol] 41 Int._Unit/L Normal 5-43 [facility] Comment on above: Performed By: #### 2 429479, 2959466, 3998251, 68136612 ####[address] [address] Bilirubin [Mass/Vol] 0.6 mg/dL Normal 0.0-1.1 [facility] Comment on above: Performed By: #### 2 046998, 3615713, 9676303, 99249867 ####[facility] [address] [place] [address] Creatinine [Mass/Vol] 1.0 mg/dL Normal 0.5-1.3 [facility] Comment on above: Performed By: #### 2 958478, 5110643, 0361544, 59084463 ####[facility] [address] [place] [address] Globulin (S) [Mass/Vol] 3.7 g/dL Normal 1.4-4.0 [facility] Comment on above: Performed By: #### 2 826172, 7129500, 2285298, 89775582 ####[facility] [address] [place] [address] Protein [Mass/Vol] 7.2 g/dL Normal 6.0-7.8 [facility] Comment on above: Performed By: #### 2 552796, 7032457, 5064340, 57370936 ####[facility] [address] [place] [address] Urea nitrogen [Mass/Vol] 17 mg/dL Normal 5-21 [facility] Comment on above: Performed By: #### 2 772301, 9054972, 8008251, 26647616 ####[facility] [address] [place] [address] Urea nitrogen/Creatinine [Mass ratio] 17 No Units Normal 10-20 [facility] Comment on above: Performed By: #### 2 278191, 7293243, 4043091, 65398942 ####[facility] [address] [place] [address] Consent for Treatmenton 03-13 Consent for Treatment [id number]#1.00C D:127 Normal [facility] HEMATOLOGYOrdered By: SYSTEM SYSTEM on 04-05-2023 Basophils/100 [...] 93.8 fL Normal 80.0 - 100.0 fL [facility] HemeAutoSS Platelet mean volume (Bld) [Entitic vol] 7.8 fL Normal 6.4 - 10.8 fL [facility] HemeAutoSS Platelets (Bld) [#/Vol] 152.0 E9/L Normal 150.0 - 500.0 E9/L [facility] HemeAutoSS RBC (Bld) [#/Vol] 4.2 E12/L Low 4.3 - 5.9 E12/L FT HemeAutoSS WBC corrected for nucl RBC Auto (Bld) [#/Vol] 6.0 E9/L Normal 4.0 - 11.0 E9/L [facility] HemeAutoSS eGFRon 04-05-2023 GFR/1.73 sq M.predicted among non-blacks MDRD (S/P/Bld) [Vol rate/Area] 78 mL/min/1.73 m2 Normal >=59 [facility] Comment on above: Order Comment: Order added by Discern Expert. 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 Kidney failure is indicated at less than 15 mL/min/1.73m2. Performed By: #### 2 586905, 8538669, 9959076, 24430740 ####[facility] [address] [place] [address] Patient Eval Forms Officeon 04-01-2023 Patient Eval Forms Office [id number]#1.00C D:127 Normal [facility] Consent for Treatmenton 03-12 Consent for Treatment [id number]#1.00C D:127 Normal [facility] Sleep Office/Clinic Noteon 0 03-29-2023 Sleep Office/Clinic Note Normal [facility] Comment on above: Result Comment: Elec tronically Signed By: Chidi ESPINAL, Matty Mills\.br\Date and Time Signed: 03/29/23 10:20 EDT Population Healthon 03-21-20 23 Population Health Normal [facility] C Blood Charcoalon 08-09-202 3 Blood Culture Charcoal Normal [facility] Comment on above: Performed By: #### 1 1886326 ####[facility] [address] [place] [address] Blood Culture Charcoal Normal [facility] Comment on above: Performed By: #### 1 0896067 ####[facility] [address] [place] [address] .VIPER VENOM MIXING STUDYon 03-18-2023 dRVVT w 1:1 PNP Coag (PPP) [Time] 45.3 second(s) High 0.0-40.4 [facility] Comment on above: Result Comment: Perf ormed at: [facility] [address] [id number] MD Taye Sadler Performed By: #### 1 3343223, 73016851, 041673719, 1859308, 97152424, 9437598, 2926270, 93173178, 5391244 ####[facility] [address] [place] [address] Beta-2 Glycoprot.i Aon 03-18 Beta 2 glycoprotein 1 IgA Qn (S) <9 Invalid Interpretation Code 0-25 [facility] Comment on above: Result Comment: The reference interval reflects a 3SD or 99th percentile interval,which is thought to represent a potentially clinically significantresult in accordance with the International Consensus Statement onthe classification criteria for definitive antiphospholipid syndrome(APS). J Thromb Haem 2006;4:295-306. Performed By: #### 1 6825837, 79952543, 318884418, 6240161, 55504628, 4199225, 7162690, 70372584, 9281308 ####[facility] [address] [place] [address] Beta 2 glycoprotein 1 IgG Qn (S) <9 Invalid Interpretation Code 0-20 [facility] Comment on above: Result Comment: The reference interval reflects a 3SD or 99th percentile interval,which is thought to represent a potentially clinically significantresult in accordance with the International Consensus Statement onthe classification criteria for definitive antiphospholipid syndrome(APS). J Thromb Haem 2006;4:295-306. Performed By: #### 1 0006424, 25267391, 730440344, 4193572, 05162844, 2811575, 5765995, 61147458, 8800581 ####[facility] [address] [place] [address] Beta 2 glycoprotein 1 IgM Qn (S) <9 Invalid Interpretation Code 0-32 [facility] Comment on above: Result Comment: The reference interval reflects a 3SD or 99th percentile interval,which is thought to represent a potentially clinically significantresult in accordance with the International Consensus Statement onthe classification criteria for definitive antiphospholipid syndrome(APS). J Thromb Haem 2006;4:295-306.Performed at: [facility] [id number] MD Taye Sadler Performed By: #### 1 4601950, 36058722, 608961747, 2304418, 60407025, 6582560, 5821774, 75420595, 2634538 ####[facility] [address] [place] [address] Consultation Noteon 03-18-20 Consultation Note [id number]#1.00C D:127 Normal [facility] Factor II, DNA Analysison F2 gene c.32438A>A genotype Molgen (Bld/Tiss) Comment Invalid Interpretation Code [facility] Comment on above: Result Comment: Resu lt: [...] in theF2 gene and a c.1601G>A (p. Ssu404Lda) variant in the F5 gene(commonly referred to as Factor V Leiden) have an approximately 20-fold increased risk for venous thromboembolism. Risks are likely willard even higher in more complex genotype combinations involving theF2 c.*97G>A variant and Factor V Leiden (PMID: 46225595). Additionalrisk factors include but are not limited [...] for health care providers to discussresults at [phone] ([phone]).Test Details:Variant analyzed: c.*97G>A, previously referred to as [id number]/Limitations:DNA analysis of the F2 gene (NM_000506.5) was [...] was developed and its performance characteristics determinedby [employer]. It has not been cleared or approved by the Food and DrugAdministration.References:Lonny S, Leonie AK, Geovani R, Nakul WW, González TARIQ; [employer] ProfessionalPractice and Guidelines Committee. Addendum: [employer] consensus statement on factor V Leiden mutationtesting. [employer] Med. 2020Oct 14. doi: 10.1038/n28852-313-88154-u.PMID: 54484686.Sharif GUERRA. Prothrombin Thrombophilia. 2005Mar 05[Updated 2020Sep 15]. In: Douglas MP, Corey HH, Sierra RA, et al.,editors. Khushi([place]) [Internet]. [place] ([place]): [employer]; 5360-3365. Available from:https://www.ncbi.nlm.nih.gov/books/NIA2399/Nathan S, Leonie AK, Keagan X, Raghav B, Celina EB, Caroline P, Jamey CS;[facility] Payroll Master Committee. Venous thromboembolismlaboratory testing (factor V Leiden and factor II c.*97G>A),2018 update: a technical standard of the [place] [employer] of [employer] ([facility]). Evon Med. 2018 Jul;20(12):3211-5188.doi: 10.1038/[id number]. Epub 2017May 16. PMID: 78789950. Performed By: #### 1 8167817, 70133607, 894132032, 0869930, 10998262, 5579438, 5204116, 75549354, 5233093 ####[facility] [address] [place] [address] Factor V Leidenon 03-18-2023 F5 gene p.Nns176Dlr [facility] (Bld/Tiss) Comment Invalid Interpretation Code [facility] Comment on above: Result Comment: Resu lt: c.1601G>A (p.Czt392Uzd) - Not DetectedThis result is not associated with an increased risk for venousthromboembolism. See Additional Clinical Information andComments.Additional Clinical Information:Venous thromboembolism is a multifactorial disease influenced bygenetic, environmental, and circumstantial risk factors. The c.1601G>A(p. Tbu483Klp) variant in the F5 gene, commonly referred [...] F2 c.*97G>A variant andFactor V Leiden (PMID: 23933516). Additional risk factors include butare not limited [...] for health care providers todiscuss results at [phone] (0652).Test Details:Variant Analyzed: c.1601G>A (p. Ulj304Mnw), referred to as Factor VLeidenMethods/Limitations:DNA analysis of [...] was developed and its performance characteristicsdetermined by [employer]. It has not been cleared or approved by theFood and Drug Administration.References:Lonny S, Leonie AK, Geovani R, Nakul WW, González TARIQ; [facility] ProfessionalPractice and Guidelines Committee. Addendum: [employer] consensus statement on factor V Leiden mutationtesting. Evon Med. 2020Oct 14. doi: 10.1038/[id number].PMID: 46463963.Sharif GUERRA. Factor V Leiden Thrombophilia. 1998December 23(Updated 2017Aug 15). In: Douglas MP, Corey HH, Sierra RA, et al.,editors. Khushi(Minal) (Internet). [place] ([place]): [employer] [facility]; 5503-8869. Available from:https://www.ncbi.nlm.nih.gov/books/HRH6102/Nathan S, Leonie AK, Keagan X, Raghav B, Celina EB, Caroline P, Jamey CS;[facility] Payroll Master Committee. Venous thromboembolismlaboratory testing (factor V Leiden and factor II c.*97G>A), 2018update: a technical standard of the [employer] ([employer]). Evon Med. 2018 Jul;20(12):3261-7450.doi: 10.1038/[id number]. Epub 2017May 16. PMID: 94433829. Performed By: #### 1 9046157, 41661739, 160030155, 3058724, 62733757, 4314796, 3177960, 24528139, 0856371 ####[facility] [address] [place] [address] Lupus Anticoagon 03-18-2023 aPTT.lupus sensitive Coag (PPP) [Time] 32.6 second(s) Invalid Interpretation Code 0.0-43.5 [facility] Comment on above: Performed By: #### 1 6099127, 33522464, 270047967, 0128745, 25803679, 7270991, 0363777, 22333104, 0798344 ####[facility] [address] [place] [address] dRVVT Coag (PPP) [Time] 50.9 second(s) High 0.0-47.0 [facility] Comment on above: Result Comment: Perf ormed at: [facility] [address] [id number] MD Taye Sadler Performed By: #### 1 5287041, 18867291, 492188235, 9372724, 06550227, 6755887, 3320730, 44734998, 6398816 ####[address] [place] [address] Lupus anticoagulant two screening tests W Reflex Coag (PPP) [Interp] Comment: Invalid Interpretation Code [facility] Comment on above: Result Comment: No l upus anticoagulant was detected. These results are consistent withspecific inhibitors to one or more common pathway factors (X, V, II orfibrinogen).Performed at: [address] [id number] MD Taye Sadler Performed By: #### 1 3404002, 69803086, 300340823, 5242454, 39486839, 9943580, 5876887, 87191465, 2862223 ####[address] [place] [address] dRVVT CONFIRMon 03-18-2023 dRVVT/dRVVT.excess phospholipid Coag (PPP) [Ratio] 0.9 ratio Invalid Interpretation Code 0.8-1.2 [facility] Comment on above: Result Comment: Perf ormed at: [address] [id number] MD Taye Sadler Performed By: #### 1 4886155, 79647532, 739961646, 8460023, 81604113, 2329305, 9202847, 25706096, 3651227 ####[address] [place] [address] Auto Diffon 03-13-2023 Basophils/100 WBC (Bld) 0.6 % Normal 0.0-2.0 [facility] Comment on above: Order Comment: Order Added by Discern Expert. Performed By: #### 2 780684, 5774779, 9108509, 05667377, 77318142, 53445988, 3339319, 8608079 ####[address] [place] [address] Basophils/Leukocyte s Auto (Bld) [Pure # fraction] 0.1 E9/L Normal 0.0-0.2 [facility] Comment on above: Order Comment: Order Added by Discern Expert. Performed By: #### 2 283354, 9868210, 1939326, 95756888, 74159162, 40236221, 4084247, 5099045 ####[facility] [address] [place] [address] Eosinophils/100 WBC (Bld) 2.2 % Normal 0.0-8.0 [facility] Comment on above: Order Comment: Order Added by Discern Expert. Performed By: #### 2 044715, 5949303, 1270553, 25833826, 10657677, 99193869, 9242392, 8079232 ####[address] [address] Eosinophils/Leukocy cam[place] Auto (Bld) [Pure # fraction] 0.2 E9/L Normal 0.0-0.5 [facility] Comment on above: Order Comment: Order Added by Discern Expert. Performed By: #### 2 367397, 3937055, 4861547, 72722692, 97156051, 21089046, 3296203, 3156950 ####[facility] [address] [place] [address] Lymphocytes/100 WBC (Bld) 20.6 % Normal 14.0-50.0 [facility] Comment on above: Order Comment: Order Added by Discern Expert. Performed By: #### 2 939129, 6934976, 6362563, 40646751, 55142244, 69497714, 1175132, 8086976 ####[facility] [address] [place] [address] Lymphocytes/Leukocy cam[place] Auto (Bld) [Pure # fraction] 1.8 E9/L Normal 1.0-4.0 [facility] Comment on above: Order Comment: Order Added by Discern Expert. Performed By: #### 2 001617, 2994787, 1734297, 37808243, 62368846, 54580701, 2721123, 8855075 ####[facility] [address] [place] [address] Monocytes/100 WBC (Bld) 7.6 % Normal 4.0-14.0 [facility] Comment on above: Order Comment: Order Added by Discern Expert. Performed By: #### 2 878780, 4578195, 0394643, 60700544, 39003813, 63931733, 0354313, 9625884 ####[facility] [address] [place] [address] Monocytes/Leukocyte s Auto (Bld) [Pure # fraction] 0.7 E9/L Normal 0.2-1.0 [facility] Comment on above: Order Comment: Order Added by Discern Expert. Performed By: #### 2 208297, 0551718, 4983554, 21424867, 25233943, 06638902, 9450240, 3502370 ####[address] [place] [address] Neutrophils/100 WBC (Bld) 69.0 % Normal 36.0-75.0 [facility] Comment on above: Order Comment: Order Added by Discern Expert. Performed By: #### 2 062183, 5364979, 0070729, 42996542, 70756305, 41183586, 8787194, 0004341 ####[address] [place] [address] Neutrophils/Leukocy camden Auto (Bld) [Pure # fraction] 6.1 E9/L Normal 2.0-7.5 [facility] Comment on above: Order Comment: Order Added by Discern Expert. Performed By: #### 2 233545, 1666133, 4931001, 51514514, 04481084, 18982579, 6895703, 0182299 ####[address] [place] [address] BMPon 03-13-2023 Creatinine [Mass/Vol] 0.9 mg/dL Normal 0.5-1.3 [facility] Comment on above: Performed By: #### 2 552665, 5635013, 5556697, 54362161, 20453287, 86436755, 9456339, 8301413 ####[facility] [address] [place] [address] Urea nitrogen [Mass/Vol] 15 mg/dL Normal 5-21 [facility] Comment on above: Performed By: #### 2 406611, 9363701, 4841810, 01930694, 69881292, 02379683, 2068950, 6534419 ####[facility] [address] [place] [address] Urea nitrogen/Creatinine [Mass ratio] 17 No Units Normal 10-20 [facility] Comment on above: Performed By: #### 2 577735, 4589273, 0347035, 65616035, 92001111, 18041458, 1573735, 7770090 ####[facility] [address] [place] [address] Anion gap [Moles/Vol] 12 mmol/L Normal 6-16 [facility] Comment on above: Performed By: #### 2 375684, 2039256, 9311567, 32806678, 58698496, 58860023, 0141636, 2710688 ####[facility] [address] [place] [address] Calcium [Mass/Vol] 8.6 mg/dL Low 8.9-11.1 [facility] Comment on above: Performed By: #### 2 621953, 4768668, 5584099, 88752003, 44284029, 53396491, 3504171, 3266139 ####[facility] [address] [place] [address] Chloride [Moles/Vol] 103 mmol/L Normal 101-111 [facility] Comment on above: Performed By: #### 2 112975, 7625828, 2007080, 08512039, 58534350, 90864052, 8227169, 1214470 ####[facility] [address] [place] [address] CO2 [Moles/Vol] 26 mmol/L Normal 21-31 [facility] Comment on above: Performed By: #### 2 630688, 1115113, 6483662, 07180138, 12561579, 21410303, 0919752, 9367996 ####[facility] [address] [place] [address] Glucose [Mass/Vol] 124 mg/dL Normal 55-199 [facility] Comment on above: Result Comment: If t his glucose result represents a fasting glucose, interpretation should refer to the following reference range: 55-99 mg/dL Performed By: #### 2 190279, 9344201, 1501049, 32375630, 54273879, 36919877, 8509060, 6266370 ####[facility] [address] [place] [address] Potassium [Moles/Vol] 4.0 mmol/L Normal 3.5-5.3 [facility] Comment on above: Performed By: #### 2 831476, 3031237, 6482604, 73618104, 44064582, 95752662, 4909357, 2388407 ####[facility] [address] [place] [address] Sodium [Moles/Vol] 137 mmol/L Normal 135-145 [facility] Comment on above: Performed By: #### 2 163388, 7446095, 3136389, 61853394, 23942905, 43480781, 0188744, 4196376 ####[facility] [address] [place] [address] BNPon 03-13-2023 Int Ctr BNP Pass Normal [facility] Comment on above: Performed By: #### 2 976681, 7052096, 4767934, 03382470, 15105804, 08330646, 6254419, 6682973 ####[facility] [address] [place] [address] Natriuretic peptide B (Bld) [Mass/Vol] 16 pg/mL Normal 5-80 [facility] Comment on above: Performed By: #### 2 253370, 9310419, 5949782, 05722538, 55298636, 71214152, 0806922, 9415981 ####[facility] [address] [place] [address] CBC w/ Auto Diffon Erythrocyte distribution width (RBC) [Ratio] 14.6 % High 10.9-14.2 [facility] Comment on above: Performed By: #### 2 822574, 1903868, 0176822, 27852813, 18649190, 76677395, 8256232, 4822187 ####[address] [place] [address] Hematocrit (Bld) [Volume fraction] 38.2 % Normal 37.7-49.0 [facility] Comment on above: Performed By: #### 2 997459, 8331649, 2477646, 43305385, 56901565, 75553791, 4216906, 8362973 ####[facility] [address] [place] [address] Hemoglobin (Bld) [Mass/Vol] 13.0 g/dL Low 13.5-17.5 [facility] Comment on above: Performed By: #### 2 802255, 0537078, 7206964, 36187624, 43081369, 57043437, 3007321, 4216681 ####[facility] [address] [place] [address] MCH (RBC) [Entitic mass] 31.5 pg Normal 27.0-34.0 [facility] Comment on above: Performed By: #### 2 703922, 1878018, 5170091, 80351828, 36484184, 19898931, 0083289, 1496472 ####[facility] [address] [place] [address] MCHC (RBC) [Mass/Vol] 34.0 g/dL Normal 31.4-36.0 [facility] Comment on above: Performed By: #### 2 220358, 4112937, 9681150, 39078562, 98199563, 88515382, 2811059, 9601212 ####[address] [place] [address] MCV (RBC) [Entitic vol] 92.7 fL Normal 80.0-100.0 [facility] Comment on above: Performed By: #### 2 531864, 9665933, 3685438, 17373435, 47348144, 10692743, 4600012, 1840160 ####[address] [address] Platelet mean volume (Bld) [Entitic vol] 7.9 fL Normal 6.4-10.8 [facility] Comment on above: Performed By: #### 2 815371, 2060300, 5989818, 90644069, 15012744, 39188523, 0037207, 8164764 ####[address] [address] Platelets (Bld) [#/Vol] 137.0 E9/L Low 150.0-500.0 [facility] Comment on above: Performed By: #### 2 898503, 4545132, 8389521, 67090567, 70053172, 65960547, 1796707, 4168036 ####[address] [address] RBC (Bld) [#/Vol] 4.1 E12/L Low 4.3-5.9 [facility] Comment on above: Performed By: #### 2 241586, 8665113, 1196926, 57374796, 10737147, 14623405, 4997683, 0099400 ####[address] [place] [address] WBC corrected for nucl RBC Auto (Bld) [#/Vol] 8.9 E9/L Normal 4.0-11.0 [facility] Comment on above: Performed By: #### 2 646827, 9575564, 7154246, 48641217, 62071769, 44365330, 8526893, 0122090 ####[facility] [address] CHEMISTRYOrdered By: SYSTEM SYSTEM on 03-13-2023 Anion [...] Remisol CRP [Mass/Vol] 1.3 mg/dL Normal <=1.9mg/dL [facility] Remisol GFR/1.73 sq M.predicted among non-blacks MDRD (S/P/Bld) [Vol rate/Area] 89 mL/min/1.73 m2 Normal >=59mL/min/1.73 m2 [facility] Chem S Glucose [Mass/Vol] 124 mg/dL Normal [...] 16 pg/mL Normal 5 - 80 pg/mL [facility] HemeManSS CRPon 03-13-2023 CRP [Mass/Vol] 1.3 mg/dL Normal <=1.9 [facility] Comment on above: Performed By: #### 2 658572, 7663469, 5358929, 10660710, 88725034, 45844016, 3093891, 6675599 ####[facility] [address] [place] [address] Consenton 03-13-2023 Consent [id number]#1.00 CD:127 Normal [facility] Consent for Treatmenton Consent for Treatment [id number] D:127 Normal [facility] Discharge Instructionson Discharge Instructions [id number]#1.00 CD:127 Normal [facility] ED Clinical Summaryon 2022 ED Clinical Summary Normal [facility] ED Note-Physicianon 03-13-20 23 ED Note-Physician Normal [facility] Comment on above: Result Comment: Elec tronically Signed By: Jordan Dean DO\.br\Date and Time Signed: 03/13/23 04:21 EDT ED Patient Education Noteon 03-13-2023 ED Patient Education Note Normal [facility] ED Patient Summaryon 023 ED Patient Summary Normal [facility] HEMATOLOGYOrdered By: SYSTEM SYSTEM on 03-13-2023 Basophils/100 [...] 6.1 E9/L Normal 2.0 - 7.5 E9/L [facility] HemeAutoSS HEMATOLOGYOrdered By: Yokasta Caballero on 03-13-2023 [...] 8.9 E9/L Normal 4.0 - 11.0 E9/L [facility] HemeAutoSS Lab Miscellaneous-LCon 03-13 Lab Miscellaneous COMMENT Invalid Interpretation Code [facility] Comment on above: Result Comment: Test Ordered: 957909 Protein C- FunctionalProtein C-Functional 138 % BNReference Range: 73-180Performed at: [facility] [place], [place] [id number] PhD Quinn Pinedo Performed By: #### 1 [id number] ####[facility] [address] [place] [address] Result Comment: Test Ordered: 360265 Protein S-AntigenProtein S, Total 97 % BNReference Range: 60-150This test was developed and its performance characteristicsdetermined by [facility]. It has not been cleared or approvedby the Food and Drug Administration.Protein S, Free 118 % BNReference Range: 61-136Performed at: [facility] [place], [place] [id number] PhD Quinn Pinedo Result Comment: Test Ordered: 779359 Protein S-FunctionalProtein S-Functional 112 % BNReference Range: 63-140Protein S activity may be falsely increased (masking an abnormal, lowresult) in patients receiving direct Xa inhibitor (e.g., rivaroxaban,apixaban, edoxaban) or a direct thrombin inhibitor (e.g., dabigatran)anticoagulant treatment due to assay interference by these drugs.Performed at: [facility]k[address] [place], [place] [id number] PhD Quinn Pinedo Lactic Acidon 03-13-2023 Lactate [Mass/Vol] 3.0 mmol/L High 0.5-2.2 [facility] Comment on above: Performed By: #### 2 699833, 9088821, 3325692, 79922068, 95041328, 21841485, 4210172, 1599482 ####[facility] [address] [place] [address] Troponin 0 Hr.on 03-13-2023 Troponin I.cardiac [Mass/Vol] 10.20 pg/mL Low 15.90-38.40 [facility] Comment on above: Result Comment: The 95% CI (Confidence Interval) PPV (Positive Predictive Value) for myocardial infarction in females is 38 pg/mL, in males 51 pg/mL. The results should be used in conjunction with clinical conditions of myocardial infarction.(Access High Sensitivity Troponin I Instructions For Use, Nikky Kristopher, March 2018) Performed By: #### 2 251679, 4404198, 4638182, 69352818, 44782311, 12079201, 6872865, 5305597 ####[facility] [address] [place] [address] eGFRon 03-13-2023 GFR/1.73 sq M.predicted among non-blacks MDRD (S/P/Bld) [Vol rate/Area] 89 mL/min/1.73 m2 Normal >=59 [facility] Comment on above: Order Comment: Order added by Discern Expert. 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 Kidney failure is indicated at less than 15 mL/min/1.73m2. Performed By: #### 2 636595, 5858669, 6297141, 47091685, 45811923, 64061647, 9490992, 7091280 ####[facility] [address] [place] [address] LISA ABS Ig G,M,Aon 3 Cardiolipin IgA IA Qn (S) <9 Invalid Interpretation Code 0-11 [facility] Comment on above: Result Comment: Nega tive: <12Indeterminate: 12 - 20Low-Med Positive: >20 - 80High Positive: >80Performed at: [facility] [address] [place], [place] [id number] PhD Quinn Pinedo Performed By: #### 1 2514345 ####[facility] [address] [place] [address] Cardiolipin IgG IA Qn (S) <9 Invalid Interpretation Code 0-14 [facility] Comment on above: Result Comment: Nega tive: <15Indeterminate: 15 - 20Low-Med Positive: >20 - 80High Positive: >80 Performed By: #### 1 5565155 ####[address] [place] [address] Cardiolipin IgM IA Qn (S) <9 Invalid Interpretation Code 0-12 [facility] Comment on above: Result Comment: Nega tive: <13Indeterminate: 13 - 20Low-Med Positive: >20 - 80High Positive: >80 Performed By: #### 1 0773276 ####[address] [address] Auto Diffon 03-11-2023 Basophils/100 WBC (Bld) 1.0 % Normal 0.0-2.0 [facility] Comment on above: Order Comment: Order Added by Discern Expert. Performed By: #### 1 7254214, 17401047, 586308063, 6885938, 46708919, 2145678, 7357080, 16758972, 4773876 ####[address] [address] Basophils/Leukocyte s Auto (Bld) [Pure # fraction] 0.1 E9/L Normal 0.0-0.2 [facility] Comment on above: Order Comment: Order Added by Discern Expert. Performed By: #### 1 7201002, 20830883, 921399881, 2673131, 02063210, 1463683, 4842283, 87138352, 4269501 ####[address] [address] Eosinophils/100 WBC (Bld) 2.1 % Normal 0.0-8.0 [facility] Comment on above: Order Comment: Order Added by Discern Expert. Performed By: #### 1 1838953, 81394788, 643291045, 4450636, 66963012, 6478490, 5036151, 40299667, 6040792 ####[address] [address] Eosinophils/Leukocy cam[place] Auto (Bld) [Pure # fraction] 0.2 E9/L Normal 0.0-0.5 [facility] Comment on above: Order Comment: Order Added by Discern Expert. Performed By: #### 1 3451806, 59667274, 608080614, 7296601, 51421413, 9687273, 9764472, 69945238, 0132015 ####[facility] [address] [place] [address] Lymphocytes/100 WBC (Bld) 23.1 % Normal 14.0-50.0 [facility] Comment on above: Order Comment: Order Added by Discern Expert. Performed By: #### 1 6634231, 88443614, 456550866, 9857278, 02124356, 7808637, 6617257, 59231005, 9573827 ####[address] [place] [address] Lymphocytes/Leukocy [place] Auto (Bld) [Pure # fraction] 1.7 E9/L Normal 1.0-4.0 [facility] Comment on above: Order Comment: Order Added by Discern Expert. Performed By: #### 1 0794572, 90837334, 854649797, 2674482, 02871665, 9570405, 7365978, 30096503, 3592429 ####[address] [place] [address] Monocytes/100 WBC (Bld) 7.3 % Normal 4.0-14.0 [facility] Comment on above: Order Comment: Order Added by Discern Expert. Performed By: #### 1 7080308, 70385508, 312653628, 2750642, 95810972, 9081180, 0998096, 02218276, 9495640 ####[address] [place] [address] Monocytes/Leukocyte s Auto (Bld) [Pure # fraction] 0.6 E9/L Normal 0.2-1.0 [facility] Comment on above: Order Comment: Order Added by Discern Expert. Performed By: #### 1 6009252, 74013060, 841542307, 5923482, 76622635, 4531996, 9880052, 18051394, 6739370 ####[facility] [address] [place] [address] Neutrophils/100 WBC (Bld) 66.5 % Normal 36.0-75.0 [facility] Comment on above: Order Comment: Order Added by Discern Expert. Performed By: #### 1 7573279, 69112960, 404931134, 7612661, 10256129, 0718302, 2348126, 69418466, 5958254 ####[address] [place] [address] Neutrophils/Leukocy cam[place] Auto (Bld) [Pure # fraction] 5.0 E9/L Normal 2.0-7.5 [facility] Comment on above: Order Comment: Order Added by Discern Expert. Performed By: #### 1 8316983, 72288252, 508507089, 9110293, 18499072, 8626817, 4007830, 75359880, 5208779 ####[address] [place] [address] CBC w/ Auto Diffon 3 Erythrocyte distribution width (RBC) [Ratio] 14.6 % High 10.9-14.2 [facility] Comment on above: Performed By: #### 1 0623222, 95319513, 926834632, 5040158, 62344737, 4839060, 6622766, 89624631, 2086536 ####[address] [place] [address] Hematocrit (Bld) [Volume fraction] 39.8 % Normal 37.7-49.0 [facility] Comment on above: Performed By: #### 1 5613458, 61621890, 786558874, 3065881, 29343704, 5155686, 9417958, 73103495, 6685107 ####[address] [place] [address] Hemoglobin (Bld) [Mass/Vol] 13.3 g/dL Low 13.5-17.5 [facility] Comment on above: Performed By: #### 1 2796557, 82418445, 623210494, 0352725, 38799072, 6544589, 0206243, 40657984, 4845799 ####[facility] [address] [place] [address] MCH (RBC) [Entitic mass] 31.2 pg Normal 27.0-34.0 [facility] Comment on above: Performed By: #### 1 6283265, 34481604, 540709099, 1583947, 13197314, 0841530, 8364563, 63681995, 5435405 ####[address] [place] [address] MCHC (RBC) [Mass/Vol] 33.4 g/dL Normal 31.4-36.0 [facility] Comment on above: Performed By: #### 1 9025002, 20635022, 360266061, 1202055, 94270797, 6923894, 3512468, 97157861, 2464501 ####[address] [place] [address] MCV (RBC) [Entitic vol] 93.2 fL Normal 80.0-100.0 [facility] Comment on above: Performed By: #### 1 4112631, 72192023, 492515318, 3661519, 92080465, 0369265, 3729540, 80938078, 4501232 ####[address] [place] [address] Platelet mean volume (Bld) [Entitic vol] 8.1 fL Normal 6.4-10.8 [facility] Comment on above: Performed By: #### 1 9834004, 48235551, 189049742, 8228195, 96735993, 3164686, 9058278, 46623432, 8442989 ####[address] [place] [address] Platelets (Bld) [#/Vol] 174.0 E9/L Normal 150.0-500.0 [facility] Comment on above: Performed By: #### 1 1993545, 78771989, 826565820, 3391277, 95588379, 4080831, 5835600, 67465143, 9913756 ####[facility] [address] [place] [address] RBC (Bld) [#/Vol] 4.3 E12/L Normal 4.3-5.9 [facility] Comment on above: Performed By: #### 1 8852728, 60744300, 722751124, 5306715, 40219197, 6470825, 9178504, 74567809, 4923764 ####[facility] [address] [place] [address] WBC corrected for nucl RBC Auto (Bld) [#/Vol] 7.5 E9/L Normal 4.0-11.0 [facility] Comment on above: Performed By: #### 1 [id number], 59304373, 975494418, 1711092, 14633810, 0941017, 3396922, 90760932, 3036171 ####[facility] [address] [place] [address] COAGULATIONOrdered By: Brandie Sams on 03-11-2023 Fibrin D-dimer FEU (PPP) [Mass/Vol] 1012 ng/mL FEU Invalid Interpretation Code 215 - 500 ng/mL FEU [facility] Auto Coag Comment on above: Result Comment: Resu lts Called To Onc/Jerica Sánchez By And Read Back For Confirmation On 03/11/2023 12:57:21 EDT Results Verified By Repeat Analysis Consent for Treatmenton 02-11 Consent for Treatment [id number]#1.00C D:127 Normal [facility] D-Dimeron 03-11-2023 Fibrin D-dimer FEU (PPP) [Mass/Vol] 1012 CD:[id number] Abnormal 215-500 [facility] Comment on above: Result Comment: Resu lts [...] skin infectionsLiver cirrhosisPregnancy Performed By: #### 1 8512214, 32161449, 793243777, 3783003, 21590981, 8509263, 8502433, 23357015, 6167571 ####[facility] [address] [place] [address] HEMATOLOGYOrdered By: SYSTEM SYSTEM on 03-11-2023 Basophils/100 [...] 66.5 % Normal 36.0 - 75.0 % [facility] HemeAutoSS Neutrophils/Leukocy camden Auto (Bld) [Pure # fraction] 5.0 E9/L Normal 2.0 - 7.5 E9/L [facility] HemeAutoSS HEMATOLOGYOrdered By: Yessica Murdock on 03-11-2023 Erythrocyte distribution width (RBC) [Ratio] 14.6 % High 10.9 - 14.2 % [facility] HemeAutoSS Hematocrit (Bld) [Volume fraction] 39.8 % Normal 37.7 - 49.0 % [facility] HemeAutoSS Hemoglobin (Bld) [Mass/Vol] 13.3 g/dL Low 13.5 - 17.5 gm/dL [facility] HemeAutoSS MCH (RBC) [Entitic mass] 31.2 pg Normal 27.0 - 34.0 pg [facility] HemeAutoSS MCHC (RBC) [Mass/Vol] 33.4 g/dL Normal 31.4 - 36.0 gm/dL [facility] HemeAutoSS MCV (RBC) [Entitic vol] 93.2 fL Normal 80.0 - 100.0 fL [facility] HemeAutoSS Platelet mean volume (Bld) [Entitic vol] 8.1 fL Normal 6.4 - 10.8 fL [facility] HemeAutoSS Platelets (Bld) [#/Vol] 174.0 E9/L Normal 150.0 - 500.0 E9/L [facility] HemeAutoSS RBC (Bld) [#/Vol] 4.3 E12/L Normal 4.3 - 5.9 E12/L [facility] HemeAutoSS WBC corrected for nucl RBC Auto (Bld) [#/Vol] 7.5 E9/L Normal 4.0 - 11.0 E9/L [facility] HemeAutoSS Lab Miscellaneous-LCon 03-11 Test Code 130854 Invalid Interpretation Code [facility] Comment on above: Performed By: #### 1 [id number] ####[facility] [address] [place] [address] Test Code 843241 Invalid Interpretation Code [facility] Comment on above: Performed By: #### 1 [id number] ####[facility] [address] [place] [address]95157 Test Code 444954 Invalid Interpretation Code [facility] Comment on above: Performed By: #### 1 [id number] ####[facility] [address] [place] [address] Test Name Protein C Invalid Interpretation Code [facility] Comment on above: Performed By: #### 1 [id number] ####[facility] [address] [place] [address] Test Name Protein S Funct Invalid Interpretation Code [facility] Comment on above: Performed By: #### 1 [id number] ####[facility] [address] [place] [address] Test Name Protein S Antig Invalid Interpretation Code [facility] Comment on above: Performed By: #### 1 [id number] ####[facility] [address] [place] [address] Oncology Progress Noteon Oncology Progress Note Normal [facility] Reference Laboratory Testing Ordered By: Sylwia Lubin on 03-11-2023 Test Code 478919 Invalid Interpretation Code [facility] SendOutsSS Test Code 578444 Invalid Interpretation Code [facility] SendOutsSS Test Code 040107 Invalid Interpretation Code [facility] SendOutsSS Test Name Protein C Invalid Interpretation Code [facility] SendOutsSS Test Name Protein S Funct Invalid Interpretation Code [facility] SendOutsSS Test Name Protein S Antig Invalid Interpretation Code [facility] SendOutsSS Population Healthon 03-05-20 23 Population Health Normal [facility] Ambulatory Visit Summaryon 0 03-01-2023 Ambulatory Visit Summary Invalid Interpretation Code [address] [place] [address]- \.br\ Saturday 11:00 AM EST \.br\ With:\.br\ Where: [facility] Family Medicine Office/Clini c Noteon 03-01-2023 Family Medicine Office/Clinic Note Normal [facility] Comment on above: Result Comment: Elec tronically Signed By: LAZARO ESPINAL, Kevin Milligan\.br\Date and Time Signed: 03/01/23 13:42 EDT Patient Educationon 03-01-20 Patient Education Normal [facility] C Blood Charcoalon 3 Blood Culture Charcoal Normal [facility] Comment on above: Performed By: #### 1 [id number] ####[facility] [address] [place] [address] Blood Culture Charcoal Normal [facility] Comment on above: Performed By: #### 1 [id number] ####[facility] [address] [place] [address] Prescriptions/Work Noteson 0 02-21-2023 Prescriptions/Work Notes [id number]#1.00 CD:127 Normal [facility] Discharge Instructionson Discharge Instructions [id number]#1.00 CD:127 Normal [facility] Population Healthon 02-21-20 23 Population Health Normal [facility] BMPon 02-19-2023 Anion gap [Moles/Vol] 10 mmol/L Normal 6-16 [facility] Comment on above: Performed By: #### 2 303090, 91013675, 4236126 ####[facility] [address] [place] [address] Calcium [Mass/Vol] 9.1 mg/dL Normal 8.9-11.1 [facility] Comment on above: Performed By: #### 2 184854, 73303215, 8585377 ####[facility] [address] [place] [address] Chloride [Moles/Vol] 99 mmol/L Low 101-111 [facility] Comment on above: Performed By: #### 2 716471, 21709998, 7358963 ####[facility] [address] [place] [address] CO2 [Moles/Vol] 32 mmol/L High 21- [facility] Comment on above: Performed By: #### 2 520892, 00717995, 6361406 ####[facility] [address] [place] [address] Creatinine [Mass/Vol] 0.9 mg/dL Normal 0.5-1.3 [facility] Comment on above: Performed By: #### 2 025709, 40370755, 0729130 ####[facility] [address] [place] [address] Glucose [Mass/Vol] 148 mg/dL Normal 55-199 [facility] Comment on above: Result Comment: If t his glucose result represents a fasting glucose, interpretation should refer to the following reference range: 55-99 mg/dL Performed By: #### 2 487082, 32925102, 3343672 ####[facility] [address] [place] [address] Potassium [Moles/Vol] 4.0 mmol/L Normal 3.5-5.3 [facility] Comment on above: Performed By: #### 2 732669, 97906690, 4969283 ####[facility] [address] [place] [address] Sodium [Moles/Vol] 137 mmol/L Normal 135-145 [facility] Comment on above: Performed By: #### 2 102182, 14146659, 3809826 ####[facility] [address] [place] [address] Urea nitrogen [Mass/Vol] 10 mg/dL Normal 5-21 [facility] Comment on above: Performed By: #### 2 050770, 34221659, 4472298 ####[facility] [address] [place] [address] Urea nitrogen/Creatinine [Mass ratio] 11 No Units Normal 10-20 [facility] Comment on above: Performed By: #### 2 928374, 28165388, 3707693 ####[facility] [address] [place] [address] CHEMISTRYOrdered By: Lab ROP User on 02-19-2023 Glucose [Mass/Vol] 159 mg/dL High 55 - 99 mg/dL FTM C POC Subsection Comment on above: Result Comment: Georgette palacios RN/ POC Device SN [id number] Invalid Interpretation Code [facility] POC Subsection POC User ID [id number] Invalid Interpretation Code [facility] POC Subsection POC Username ISABELL SAWYER Invalid Interpretation Code [facility] POC Subsection Glucose [Mass/Vol] 176 mg/dL High 55 - 99 mg/dL F[facility] C POC Subsection Comment on above: Result Comment: Noti suzanne RN/ POC Device SN [id number] Invalid Interpretation Code [facility] POC Subsection POC User ID [id number] Invalid Interpretation Code [facility] POC Subsection POC Username DEBRA GOMEZ Invalid Interpretation Code [facility] POC Subsection Glucose [Mass/Vol] 152 mg/dL High 55 - 99 mg/dL F[facility] C POC Subsection Comment on above: Result Comment: Noti suzanne RN/ POC Device SN [id number] Invalid Interpretation Code [facility] POC Subsection POC User ID [id number] Invalid Interpretation Code [facility] POC Subsection POC Username DEBRA GOMEZ Invalid Interpretation Code FT POC Subsection CHEMISTRYOrdered By: SYSTEM SYSTEM on 02-19-2023 Anion gap [Moles/Vol] 10 mmol/L Normal 6 - 16 mEq/L [facility] Remisol Calcium [Mass/Vol] 9.1 mg/dL Normal 8.9 - 11.1 mg/dL [facility] Remisol Chloride [Moles/Vol] 99 mmol/L Low 101 - 111 mmol/L [facility] Remisol CO2 [Moles/Vol] 32 mmol/L High 21 - 31 mmol/L [facility] Remisol Creatinine [Mass/Vol] 0.9 mg/dL Normal 0.5 - 1.3 mg/dL [facility] Remisol GFR/1.73 sq M.predicted among non-blacks MDRD (S/P/Bld) [Vol rate/Area] 89 mL/min/1.73 m2 Normal >=59mL/min/1.73 m2 [facility] Chem S Glucose [Mass/Vol] 148 mg/dL Normal 55 - 199 mg/dL [facility] Remisol Magnesium [Mass/Vol] 1.7 mg/dL Normal 1.3 - 2.4 mg/dL [facility] Remisol Potassium [Moles/Vol] 4.0 mmol/L Normal 3.5 - 5.3 mmol/L [facility] Remisol Sodium [Moles/Vol] 137 mmol/L Normal 135 - 145 mmol/L [facility] Remisol Urea nitrogen [Mass/Vol] 10 mg/dL Normal [...] 12.5 s Normal 9.4 - 12.5 second(s) [facility] Auto Coag Capillary Glucose POCon 02-09 Glucose [Mass/Vol] 159 mg/dL High 55-99 [facility] Comment on above: Result Comment: Georgette LOPEZ Performed By: #### 2 [id number] ####[facility] [address] [place] [address] Glucose [Mass/Vol] 176 mg/dL High 55-99 [facility] Comment on above: Result Comment: Georgette LOPEZ Performed By: #### 2 [id number] ####[facility] [address] [place] [address] Glucose [Mass/Vol] 152 mg/dL High 55-99 [facility] Comment on above: Result Comment: Georgette LOPEZ Performed By: #### 2 [id number] ####[facility] [address] [place] [address] Discharge Note-Nursingon Discharge Note-Nursing Normal [address], [place] [address]- \.br\ New Follow Up Appointments after Discharge\.br\ Follow Up with [facility] When: 03/01/2023 01:00 PM EDT\.br\ Comments:\.br\ Your follow up appointment is with Dr. Lobo. Thank you.\.br\ Where:\.br\ [address], [address]\.br\ [place] [address]-\.br\ Business (1)\.br\ Follow Up with [facility] When: \.br\ Comments:\.br\ [facility] will contact you to set up a home visit. Thank you.\.br\ Follow Up with Ralph Jennings When: \.br\ Comments:\.br\ Chronic Venous Insuf\.br\ Please call Kike at Dr. Jennings's office in [place] to make a follow up appointment. The phone number is [phone]. Thank you.\.br\ Where:\.br\ [address]br\ [place] [address]-\.br\ Business (1)\.br\ Follow Up with Matty Murillo When: \.br\ Comments:\.br\ needs PFTs and sleep study\.br\ The central scheduling department at [facility] will need to schedule the PFT's. Please contact Dr. Murillo's offic eto set up a time for your sleep study. 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 Amaro office will contact you to set up an appointment. If you do not hear from them in 3 days, then call [phone] and asked for Oncology/ Hematology department. Thank you.\.br\ Where:\.br\ [facility]\.br\ [address].br\ [place] [address]-\.br\ Medications\.br\ What How Much When Why Instructions Next Dose\.br\ New apixaban (Eliquis 5 mg oral tablet) 2 tabs (10 mg) BID x 7 days then 1 tab bid By Mouth 2 times a day initial fill only Pickup at [facility]/pharmacy #[id number] 02/19 @ 9 PM \.br\ New methocarbamol (Robaxin 500 mg Tab) 2 Tablets By Mouth 4 times a day Duration: 14 Days Pickup at [facility]/pharmacy #[id number] 02/19 @ 9 PM\.br\ Unchanged acetaminophen [...] Unchanged fluticasone nasal (Flonase 0.05 mg/ inh [place]) 2 Sprays Nasal Inhalation Every day Allergic [...] NEEDED, TAKE WHEN TAKING LASIX\.br\ Pharmacy Information\.br\ [facility]/pharmacy #[id number]: [address] [place] [id number] [phone]\.br\ \.br\ What How Much When Comments\.br\ Stop [...] level\.br\ HTN (hypertension)\.b r\ 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 use of oral hypoglycemic drug\.br\ Numbness [...] pulmonary embolus\.br\ kidney stones\.br\ Left shoulder pain\.br\ FPC (current) use of anticoagulants\.b r\ Lumbago\.br\ Lumbar [...] The following factors may make you more [facility] Echo Transthoracic Completeo n 02-19-2023 Echo Transthoracic Complete Normal [facility] Inpatient Clinical Summaryon 02-19-2023 Inpatient Clinical Summary Normal [facility] Inpatient Patient Summaryon 02-19-2023 Inpatient Patient Summary Normal [facility] Interdisciplinary Note - J Carlos e Manageron 02-19-2023 Interdisciplinary Note - Group Sales Manager Normal [facility] Comment on above: Result Comment: Elec tronically Signed By: Gladis Finney RN\.br\Date and Time Signed: 02/19/23 13:20 EDT Magnesiumon 02-19-2023 Magnesium [Mass/Vol] 1.7 mg/dL Normal 1.3-2.4 [facility] Comment on above: Performed By: #### 2 979422, [id number], 2024245 ####[facility] [address] [place] [address] Message from Medicareon 02-09 Message from Medicare [id number]#1.00 CD:127 Normal [facility] PTon 02-19-2023 INR Coag (PPP) [Relative time] 1.0 {INR} Invalid Interpretation Code [facility] Comment on above: Result Comment: INR results are specifically intended to assess patients stabilized on long-term Anticoagulation therapy suggested INR?s ?Less Intensive Anticoagulation? 2.0 ? 3.0Conventional Range 3.0 ? 4.5 Performed By: #### 2 053179, [id number] ####[facility] [address] [place] [address] PT Coag (PPP) [Time] 11.3 second(s) Normal 9.4-12.5 [facility] Comment on above: Result Comment: 15 d [...] the same coagulation reagent and instrumentation as [facility]. Currently there are no coagulation studies available worldwide for children to 14 days, and no normal ranges. Performed By: #### 2 440649, 7315390 ####[facility] [address] [address] PT & PTTon 02-19-2023 aPTT Coag (PPP) [Time] 77.6 second(s) High 25.1-36.5 [facility] Comment on above: Result Comment: Para meter [...] the same coagulation reagent and instrumentation as [facility]. Currently there are no coagulation studies available worldwide for children to 14 days, and no normal ranges. Heparin therapeutic range (represented by Anti-Factor Xa activity of 0.2 - 0.4 U/mL) corresponds to PTT of 56.6 - 109.0 sec. Performed By: #### 1 [id number] ####[facility] [address] [place] [address] INR Coag (PPP) [Relative time] 1.1 {INR} Invalid Interpretation Code [facility] Comment on above: Result Comment: INR results are specifically intended to assess patients stabilized on long-term Anticoagulation therapy suggested INR?s ?Less Intensive Anticoagulation? 2.0 ? 3.0Conventional Range 3.0 ? 4.5 Performed By: #### 1 [id number] ####[facility] [address] [place] [address] PT Coag (PPP) [Time] 12.5 second(s) Normal 9.4-12.5 [facility] Comment on above: Result Comment: 15 d [...] the same coagulation reagent and instrumentation as [facility]. Currently there are no coagulation studies available worldwide for children to 14 days, and no normal ranges. Performed By: #### 1 [id number] ####[facility] [address] [place] [address] PTTon 02-19-2023 aPTT Coag (PPP) [Time] 70.2 second(s) High 25.1-36.5 [facility] Comment on above: Result Comment: Para meter [...] the same coagulation reagent and instrumentation as [facility]. Currently there are no coagulation studies available worldwide for children to 14 days, and no normal ranges. Heparin therapeutic range (represented by Anti-Factor Xa activity of 0.2 - 0.4 U/mL) corresponds to PTT of 56.6 - 109.0 sec. Performed By: #### 2 599004, 1634578 ####[facility] [address] [place] [address] aPTT Coag (PPP) [Time] 74.4 second(s) High 25.1-36.5 [facility] Comment on above: Result Comment: Para meter [...] the same coagulation reagent and instrumentation as [facility]. Currently there are no coagulation studies available worldwide for children to 14 days, and no normal ranges. Heparin therapeutic range (represented by Anti-Factor Xa activity of 0.2 - 0.4 U/mL) corresponds to PTT of 56.6 - 109.0 sec. Performed By: #### 2 461596 ####[facility] [address] [place] [address] Patient Education - Texton 0 02-19-2023 Patient Education - Text Normal [facility] eGFRon 02-19-2023 GFR/1.73 sq M.predicted among non-blacks MDRD (S/P/Bld) [Vol rate/Area] 89 mL/min/1.73 m2 Normal >=59 [facility] Comment on above: Order Comment: Order added by Discern Expert. 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 Kidney failure is indicated at less than 15 mL/min/1.73m2. Performed By: #### 2 641583, 85233559, 2480991 ####[facility] [address] [place] [address] Ambulatory Visit Summaryon 0 02-18-2023 Ambulatory Visit Summary Normal [facility] Auto DiffOrdered By: SYSTEM SYSTEM on 02-18-2023 Basophils/100 WBC (Bld) 0.7 % Normal 0.0-2.0 [facility] HemeAutoSS Comment on above: Order Comment: Order Added by Discern Expert. Performed By: #### 2 615526, 8588575, 43101576, 41232590, 3987708, 22379853, 36820263, 4019456 ####[facility] [address] [place] [address] Basophils/Leukocyte s Auto (Bld) [Pure # fraction] 0.0 E9/L Normal 0.0-0.2 [facility] HemeAutoSS Comment on above: Order Comment: Order Added by Discern Expert. Performed By: #### 2 897255, 1147559, 22528680, 59110134, 3633616, 13755579, 43468243, 2062675 ####[place] [place] [address] Eosinophils/100 WBC (Bld) 1.7 % Normal 0.0-8.0 [facility] HemeAutoSS Comment on above: Order Comment: Order Added by Discern Expert. Performed By: #### 2 361512, 0423740, 19203940, 32119470, 3426544, 89382471, 60242782, 9918486 ####[place] [address] [place] [address] Eosinophils/Leukocy [place] Auto (Bld) [Pure # fraction] 0.1 E9/L Normal 0.0-0.5 [facility] HemeAutoSS Comment on above: Order Comment: Order Added by Discern Expert. Performed By: #### 2 696999, 3341171, 85303480, 55134725, 9681989, 52332200, 85870398, 6393012 ####[place] [address] [address] Lymphocytes/100 WBC (Bld) 20.6 % Normal 14.0-50.0 [facility] HemeAutoSS Comment on above: Order Comment: Order Added by Discern Expert. Performed By: #### 2 230485, 0497901, 37024807, 28196823, 4702702, 50561943, 72695834, 5429526 ####[address] [address] Lymphocytes/Leukocy [place] Auto (Bld) [Pure # fraction] 1.5 E9/L Normal 1.0-4.0 [facility] HemeAutoSS Comment on above: Order Comment: Order Added by Discern Expert. Performed By: #### 2 773055, 6553966, 80844439, 46799204, 5522022, 02431152, 65374429, 3746446 ####[address] [place] [address] Monocytes/100 WBC (Bld) 7.5 % Normal 4.0-14.0 [facility] HemeAutoSS Comment on above: Order Comment: Order Added by Discern Expert. Performed By: #### 2 952561, 3822411, 27507781, 28143643, 9653573, 51709787, 24226625, 8499670 ####[place] [place] [address] Monocytes/Leukocyte s Auto (Bld) [Pure # fraction] 0.6 E9/L Normal 0.2-1.0 [facility] HemeAutoSS Comment on above: Order Comment: Order Added by Discern Expert. Performed By: #### 2 867951, 0073390, 87063873, 95070347, 1581579, 33634545, 13999667, 5900397 ####[address] [place] [address] Neutrophils/100 WBC (Bld) 69.5 % Normal 36.0-75.0 [facility] HemeAutoSS Comment on above: Order Comment: Order Added by Discern Expert. Performed By: #### 2 318768, 2567781, 18049548, 61996005, 4362847, 93381507, 48694948, 6129689 ####[address] [address] Neutrophils/Leukocy [place] Auto (Bld) [Pure # fraction] 5.2 E9/L Normal 2.0-7.5 [facility] HemeAutoSS Comment on above: Order Comment: Order Added by Discern Expert. Performed By: #### 2 075831, 6520694, 48689227, 12835765, 1371042, 75398535, 84733169, 8637432 ####[address] [place] [address] BMPOrdered By: SYSTEM SYSTEM on 02-18-2023 Creatinine [Mass/Vol] 0.9 mg/dL Normal 0.5-1.3 [facility] Remisol Comment on above: Performed By: #### 2 379034, 4919726, 77022592, 38145894, 3941372, 71060729, 65338615, 2864733 ####[address] [place] [address] Urea nitrogen [Mass/Vol] 14 mg/dL Normal 5-21 [facility] Remisol Comment on above: Performed By: #### 2 848394, 5880106, 88379824, 83939164, 9316437, 15649539, 64601628, 9465742 ####[facility] [address] [place] [address] Anion gap [Moles/Vol] 13 mmol/L Normal 6-16 [facility] Comment on above: Performed By: #### 2 980937, 3177987, 15521902, 95624189, 6501217, 60866225, 07055414, 1470406 ####[facility] [address] [place] [address] Calcium [Mass/Vol] 9.0 mg/dL Normal 8.9-11.1 [facility] Remisol Comment on above: Performed By: #### 2 215003, 9031222, 63354102, 24617582, 2519366, 26265482, 01170918, 1816540 ####[facility] [address] [place] [address] Chloride [Moles/Vol] 98 mmol/L Low 101-111 [facility] Remisol Comment on above: Performed By: #### 2 336272, 4945680, 33668159, 37016014, 6507909, 37936565, 01475792, 9998110 ####[facility] [address] [place] [address] CO2 [Moles/Vol] 27 mmol/L Normal 21-31 [facility] Remisol Comment on above: Performed By: #### 2 528910, 0638816, 80519431, 11629708, 5452485, 75256795, 77776948, 6862563 ####[facility] [address] [place] [address] Glucose [Mass/Vol] 155 mg/dL Normal 55-199 [facility] Remisol Comment on above: Result Comment: If t his glucose result represents a fasting glucose, interpretation should refer to the following reference range: 55-99 mg/dL Performed By: #### 2 578901, 1358545, 70771562, 18840347, 5242747, 41772323, 04933581, 8053704 ####[facility] [facility] [address] [place] [address] Potassium [Moles/Vol] 3.7 mmol/L Normal 3.5-5.3 [facility] Remisol Comment on above: Performed By: #### 2 042499, 7936738, 15146242, 83583858, 0718940, 25817556, 15078145, 6132218 ####[facility] [address] [place] [address] Sodium [Moles/Vol] 134 mmol/L Low 135-145 [facility] Remisol Comment on above: Performed By: #### 2 763960, 8752485, 86468488, 53671952, 5063884, 09937253, 35604733, 9891697 ####[facility] [address] [place] [address] BMPon 02-18-2023 Urea nitrogen/Creatinine [Mass ratio] 16 No Units Normal 10-20 [facility] Comment on above: Performed By: #### 2 675224, 5351518, 49688313, 68857953, 0124855, 42798510, 60338894, 6298810 ####[facility] [address] [place] [address] BNPon 02-18-2023 Int Ctr BNP Pass Normal [facility] Comment on above: Performed By: #### 2 402316, 8601165, 75550819, 66542546, 1989919, 45869627, 73882613, 6965849 ####[facility] [address] [place] [address] BNPOrdered By: Gonzales up on 02-18-2023 Natriuretic peptide B (Bld) [Mass/Vol] 21 pg/mL Normal 5-80 [facility] HemeManSS Comment on above: Performed By: #### 2 571335, 5008684, 33081216, 32830461, 1106305, 00697762, 21209763, 6077641 ####[facility] [address] [place] [address] CBC w/ Auto DiffOrdered By: Rafia Caballero on 02-18-2023 Erythrocyte distribution width (RBC) [Ratio] 14.8 % High 10.9-14.2 [facility] HemeAutoSS Comment on above: Performed By: #### 2 289663, 6757945, 92526505, 60846083, 9134921, 05166149, 48995078, 4008210 ####[facility] [address] [place] [address] Hematocrit (Bld) [Volume fraction] 42.8 % Normal 37.7-49.0 [facility] HemeAutoSS Comment on above: Performed By: #### 2 461165, 1026545, 74084185, 56698167, 2675742, 98077559, 78962432, 8948370 ####[facility] [address] [place] [address] Hemoglobin (Bld) [Mass/Vol] 14.5 g/dL Normal 13.5-17.5 [facility] HemeAutoSS Comment on above: Performed By: #### 2 994251, 5505835, 80534450, 90094598, 5841039, 75619323, 02498473, 6296681 ####[place] [address] [place] [address] MCH (RBC) [Entitic mass] 31.3 pg Normal 27.0-34.0 [facility] HemeAutoSS Comment on above: Performed By: #### 2 756095, 2217912, 98163864, 72359830, 8814254, 94861113, 70199017, 7798938 ####[place] [address] [place] [address] MCHC (RBC) [Mass/Vol] 33.9 g/dL Normal 31.4-36.0 [facility] HemeAutoSS Comment on above: Performed By: #### 2 145262, 2019619, 99577449, 07565370, 5188342, 93253328, 56104058, 7155839 ####[place] [address] [place] [address] MCV (RBC) [Entitic vol] 92.4 fL Normal 80.0-100.0 FT HemeAutoSS Comment on above: Performed By: #### 2 267561, 4584230, 33611423, 71283012, 9718952, 09981001, 42315560, 3060661 ####[place] [address] Platelet mean volume (Bld) [Entitic vol] 8.2 fL Normal 6.4-10.8 FT HemeAutoSS Comment on above: Performed By: #### 2 553667, 5981230, 63660102, 25630430, 6773709, 64161061, 06755119, 7276821 ####[place] [address] Platelets (Bld) [#/Vol] 167.0 E9/L Normal 150.0-500.0 FT HemeAutoSS Comment on above: Performed By: #### 2 131905, 7726432, 93306305, 46667394, 9637239, 02485354, 57465815, 7837392 ####[facility] [address] [address] RBC (Bld) [#/Vol] 4.6 E12/L Normal 4.3-5.9 FT HemeAutoSS Comment on above: Performed By: #### 2 014283, 3181419, 55237726, 01030813, 7679738, 60034485, 73754943, 2476452 ####[address] [address] WBC corrected for nucl RBC Auto (Bld) [#/Vol] 7.5 E9/L Normal 4.0-11.0 FT HemeAutoSS Comment on above: Performed By: #### 2 653817, 9725787, 77940949, 90697793, 6696311, 76506290, 85597942, 9722298 ####[facility] [address] [place] [address] CHEMISTRYOrdered By: SYSTEM SYSTEM on 02-18-2023 Troponin I.cardiac [Mass/Vol] 13.30 pg/mL Low 15.90 - 38.40 pg/mL [facility] Remisol Troponin I.cardiac [Mass/Vol] 12.90 pg/mL Low 15.90 - 38.40 pg/mL [facility] Remisol Troponin I.cardiac [Mass/Vol] 13.60 pg/mL Low 15.90 - 38.40 pg/mL [facility] Remisol Urea nitrogen/Creatinine [Mass ratio] 16 mg/mg Normal - [facility] Remisol COAGULATIONOrdered By: Nani King on 02-18-2023 PT Coag (PPP) [Time] 11.2 s Normal 9.4 - 12.5 second(s) [facility] Auto Coag CTA Cheston 02-18-2023 CTA Chest Normal [facility] Capillary Glucose POCon 02-09 Glucose [Mass/Vol] 173 mg/dL High 55-99 [facility] Comment on above: Result Comment: Ashley kati Meter Performed By: #### 2 [id number] ####[facility] [address] [place] [address] Glucose [Mass/Vol] 131 mg/dL High 55-99 [facility] Comment on above: Result Comment: Georgette palacios RN/ Performed By: #### 2 90960488 ####[facility] [address] [place] [address] Consent for Treatmenton 02-09 Consent for Treatment [id number] D:127 Normal [facility] ED Clinical Summaryon 2022 ED Clinical Summary Normal [facility] ED Note-Physicianon 02-19-20 ED Note-Physician Normal [facility] Comment on above: Result Comment: Elec tronically Signed By: Kim Ledezma, Arturo Sarmiento.br\Date and Time Signed: 02/18/23 12:50 EDT ED Patient Education Noteon 02-18-2023 ED Patient Education Note Normal [facility] ED Patient Summaryon 023 ED Patient Summary Normal [facility] Family Medicine Office/Clini c Noteon 02-18-2023 Family Medicine Office/Clinic Note Normal [facility] Comment on above: Result Comment: Elec tronically Signed By: Mt GOODEN DO, FAAFP\Date and Time Signed: 02/18/23 08:47 EDT GetWell Education Videoon GetYouxigu Education Video Yes Patient Avoiding Infections in the Hospital Normal [facility] Interdisciplinary Note - Raulito singon 02-18-2023 Interdisciplinary Note - Nursing Received wound consult, upon assessment no open areas noted. Patient and stated at times legs will weep. Order put in; May use ABD and Kerlex if legs begin to weep. Normal [facility] MagnesiumOrdered By: SYSTEM SYSTEM on 02-18-2023 Magnesium [Mass/Vol] 1.5 mg/dL Normal 1.3-2.4 [facility] Remisol Comment on above: Performed By: #### 2 317317, 1002489, 52522773, 95216226, 1156765, 82168224, 70118658, 3202682 ####[facility] [address] [place] [address] Monitor Recordon 02-18-2023 Monitor Record [id number]#1.00 CD:127 Normal [facility] Monitor Record [id number]#1.00 CD:127 Normal [facility] Monitor Record [id number]#1.00 CD:127 Normal [facility] No Panel InformationOrdered By: ANGPROCESSSERVER MICROBIOLOGY on 02-18-2023 Blood Culture Charcoal No growth at 1 day. Final to follow at 7 days. [facility] PT & PTTon 02-18-2023 aPTT Coag (PPP) [Time] 29.6 second(s) Normal 25.1-36.5 [facility] Comment on above: Result Comment: Para meter [...] the same coagulation reagent and instrumentation as [facility]. Currently there are no coagulation studies available worldwide for children to 14 days, and no normal ranges. Heparin therapeutic range (represented by Anti-Factor Xa activity of 0.2 - 0.4 U/mL) corresponds to PTT of 56.6 - 109.0 sec. Performed By: #### 2 139602, 2403061, 87812732, 08674966, 4793780, 77674434, 95517127, 4512340 ####[facility] [place] [address] PT Coag (PPP) [Time] 11.2 second(s) Normal 9.4-12.5 [facility] Comment on above: Result Comment: 15 d [...] the same coagulation reagent and instrumentation as [facility]. Currently there are no coagulation studies available worldwide for children to 14 days, and no normal ranges. Performed By: #### 2 161543, 4303815, 51280844, 51896526, 2287361, 15095048, 58232818, 4070197 ####[facility] [address] [place] [address] PT & PTTOrdered By: Catalina King on 02-18-2023 INR Coag (PPP) [Relative time] 1.0 {INR} Invalid Interpretation Code [facility] Auto Coag Comment on above: Result Comment: INR results are specifically intended to assess patients stabilized on long-term Anticoagulation therapy suggested INR?s ?Less Intensive Anticoagulation? 2.0 ? 3.0Conventional Range 3.0 ? 4.5 Performed By: #### 2 553962, 8611606, 33065705, 77214902, 7983542, 15955014, 66595972, 5987875 ####[facility] [address] [place] [address] PTTon 02-18-2023 aPTT Coag (PPP) [Time] 98.5 second(s) Abnormal 25.1-36.5 [facility] Comment on above: Result Comment: Resu lts [...] the same coagulation reagent and instrumentation as [facility]. Currently there are no coagulation studies available worldwide for children to 14 days, and no normal ranges. Heparin therapeutic range (represented by Anti-Factor Xa activity of 0.2 - 0.4 U/mL) corresponds to PTT of 56.6 - 109.0 sec. Performed By: #### 2 815994 ####[facility] [address] [place] [address] Patient Educationon 02-19-20 23 Patient Education Normal [facility] Pre-Arrival Noteon 3 Pre-Arrival Note Normal [facility] Troponin 0 Hr.on 02-18-2023 Troponin I.cardiac [Mass/Vol] 12.00 pg/mL Low 15.90-38.40 [facility] Comment on above: Result Comment: The 95% CI (Confidence Interval) PPV (Positive Predictive Value) for myocardial infarction in females is 38 pg/mL, in males 51 pg/mL. The results should be used in conjunction with clinical conditions of myocardial infarction.(Level 3 [employer] High Sensitivity Troponin I Instructions For Use, [employer], March 2018) Performed By: #### 2 388984, 2622648, 19280171, 48889416, 9827958, 24067638, 48713081, 4367616 ####[facility] [address] [place] [address] Troponin 3 Hr.on 02-18-2023 Troponin I.cardiac [Mass/Vol] 13.60 pg/mL Low 15.90-38.40 [facility] Comment on above: Result Comment: The 95% CI (Confidence Interval) PPV (Positive Predictive Value) for myocardial infarction in females is 38 pg/mL, in males 51 pg/mL. The results should be used in conjunction with clinical conditions of myocardial infarction.(Access High Sensitivity Troponin I Instructions For Use, CirclePublishMarch 2018) Performed By: #### 1 3171002 ####[facility] [address] [place] [address] Troponin 6 Hr.on 02-18-2023 Troponin I.cardiac [Mass/Vol] 12.90 pg/mL Low 15.90-38.40 [facility] Comment on above: Result Comment: The 95% CI (Confidence Interval) PPV (Positive Predictive Value) for myocardial infarction in females is 38 pg/mL, in males 51 pg/mL. The results should be used in conjunction with clinical conditions of myocardial infarction.(Access High Sensitivity Troponin I Instructions For Use, CirclePublishMarch 2018) Performed By: #### 1 7789409 ####[facility] [address] [place] [address] Troponin 9 Hr.on 02-18-2023 Troponin I.cardiac [Mass/Vol] 13.30 pg/mL Low 15.90-38.40 [facility] Comment on above: Result Comment: The 95% CI (Confidence Interval) PPV (Positive Predictive Value) for myocardial infarction in females is 38 pg/mL, in males 51 pg/mL. The results should be used in conjunction with clinical conditions of myocardial infarction.(Access High Sensitivity Troponin I Instructions For Use, Nikky [employer], March 2018) Performed By: #### 1 1631670 ####[facility] [address] [place] [address] US LE Venous Duplex Bilatera allison 02-18-2023 US LE Venous Duplex Bilateral Normal [facility] XR Abdomen 1 Viewon 02-19-20 XR Abdomen 1 View Normal [facility] XR Chest Single Viewon 02-18 XR Chest Single View Normal [facility] eGFROrdered By: SYSTEM [employer] on 02-18-2023 GFR/1.73 sq M.predicted among non-blacks MDRD (S/P/Bld) [Vol rate/Area] 89 mL/min/1.73 m2 Normal >=59 [facility] Chem S Comment on above: Order Comment: Order added by Discern Expert. 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 Kidney failure is indicated at less than 15 mL/min/1.73m2. Performed By: #### 2 564796, 4109483, 80575847, 02787427, 7845001, 21856863, 92262159, 8225154 ####[facility] [address] [place] [address] Auto Diffon 02-15-2023 Basophils/100 WBC (Bld) 1.0 % Normal 0.0-2.0 [facility] Comment on above: Order Comment: Order Added by Discern Expert. Performed By: #### 2 702926, 3469512, 0712509 ####[place] [address] [place] [address] Basophils/Leukocyte s Auto (Bld) [Pure # fraction] 0.1 E9/L Normal 0.0-0.2 [facility] Comment on above: Order Comment: Order Added by Discern Expert. Performed By: #### 2 785605, 5813643, 2241600 ####[address] [address] Eosinophils/100 WBC (Bld) 2.1 % Normal 0.0-8.0 [facility] Comment on above: Order Comment: Order Added by Discern Expert. Performed By: #### 2 569601, 6541320, 3474613 ####[address] [address] Eosinophils/Leukocy [place] Auto (Bld) [Pure # fraction] 0.2 E9/L Normal 0.0-0.5 [facility] Comment on above: Order Comment: Order Added by Discern Expert. Performed By: #### 2 082332, 6031461, 8514192 ####[address] [address] Lymphocytes/100 WBC (Bld) 23.5 % Normal 14.0-50.0 [facility] Comment on above: Order Comment: Order Added by Discern Expert. Performed By: #### 2 997771, 0844324, 0264528 ####[address] [address] Lymphocytes/Leukocy [place] Auto (Bld) [Pure # fraction] 1.9 E9/L Normal 1.0-4.0 [facility] Comment on above: Order Comment: Order Added by Rudi Expert. Performed By: #### 2 330672, 2867925, 3625874 ####[address] [address] Monocytes/100 WBC (Bld) 7.5 % Normal 4.0-14.0 [facility] Comment on above: Order Comment: Order Added by Discern Expert. Performed By: #### 2 097097, 2629629, 6724927 ####[address] [place] [address] Monocytes/Leukocyte s Auto (Bld) [Pure # fraction] 0.6 E9/L Normal 0.2-1.0 [facility] Comment on above: Order Comment: Order Added by Discern Expert. Performed By: #### 2 723695, 3262635, 8234275 ####[address] [address] Neutrophils/100 WBC (Bld) 65.9 % Normal 36.0-75.0 [facility] Comment on above: Order Comment: Order Added by Discern Expert. Performed By: #### 2 941645, 9240337, 8195813 ####[address] [address] Neutrophils/Leukocy [place] Auto (Bld) [Pure # fraction] 5.2 E9/L Normal 2.0-7.5 [facility] Comment on above: Order Comment: Order Added by Discern Expert. Performed By: #### 2 395338, 9218546, 8483764 ####[address] [address] CBC w/ Auto Diffon 3 Erythrocyte distribution width (RBC) [Ratio] 15.1 % High 10.9-14.2 [facility] Comment on above: Performed By: #### 2 698295, 2560888, 5037987 ####[address] [address] Hematocrit (Bld) [Volume fraction] 44.1 % Normal 37.7-49.0 [facility] Comment on above: Performed By: #### 2 448516, 3090263, 5936481 ####[address] [address] Hemoglobin (Bld) [Mass/Vol] 14.7 g/dL Normal 13.5-17.5 [facility] Comment on above: Performed By: #### 2 175281, 5608704, 8879361 ####[place] [address] MCH (RBC) [Entitic mass] 30.8 pg Normal 27.0-34.0 [facility] Comment on above: Performed By: #### 2 902777, 4290727, 7738685 ####[facility] [address] [place] [address] MCHC (RBC) [Mass/Vol] 33.2 g/dL Normal 31.4-36.0 [facility] Comment on above: Performed By: #### 2 840054, 2635388, 7052171 ####[place] [address] MCV (RBC) [Entitic vol] 92.7 fL Normal 80.0-100.0 [facility] Comment on above: Performed By: #### 2 029268, 0434853, 7116857 ####[place] [address] Platelet mean volume (Bld) [Entitic vol] 8.3 fL Normal 6.4-10.8 [facility] Comment on above: Performed By: #### 2 895295, 1337528, 8152193 ####[place] [address] Platelets (Bld) [#/Vol] 177.0 E9/L Normal 150.0-500.0 [facility] Comment on above: Performed By: #### 2 034496, 6033008, 6864576 ####[place] [address] RBC (Bld) [#/Vol] 4.8 E12/L Normal 4.3-5.9 [facility] Comment on above: Performed By: #### 2 240899, 4253042, 6764687 ####[address] [address] WBC corrected for nucl RBC Auto (Bld) [#/Vol] 8.0 E9/L Normal 4.0-11.0 [facility] Comment on above: Performed By: #### 2 286816, 1979339, 8876414 ####[facility] [address] [place] [address] CHEMISTRYOrdered By: SYSTEM SYSTEM on 02-15-2023 Albumin [Mass/Vol] 3.9 g/dL Normal 3.3 - 5.0 gm/dL F [facility] Remisol Albumin/Globulin [Mass ratio] 1.0 {ratio} Low [...] g/dL High 6.0 - 7.8 gm/dL F [facility] Remisol CHEMISTRYOrdered By: Gonzales William on 02-15-2023 HbA1c (Bld) [Mass fraction] 6.8 % High <=5.9% FT ChemAutoSS Consent for Treatmenton Consent for Treatment [id number] D:127 Normal [facility] HEMATOLOGYOrdered By: SYSTEM SYSTEM on 02-15-2023 Basophils/100 [...] 177.0 E9/L Normal 150.0 - 500.0 E9/L [facility] HemeAutoSS RBC (Bld) [#/Vol] 4.8 E12/L Normal 4.3 - 5.9 E12/L [facility] HemeAutoSS WBC corrected for nucl RBC Auto (Bld) [#/Vol] 8.0 E9/L Normal 4.0 - 11.0 E9/L [facility] HemeAutoSS Hep Func Panelon 02-15-2023 Albumin [Mass/Vol] 3.9 g/dL Normal 3.3-5.0 [facility] Comment on above: Performed By: #### 2 569048, 3113045, 4265972 ####[facility] [address] [place] [address] Albumin/Globulin (S) [Mass conc ratio] 1.0 Low 1.1-2.2 [facility] Comment on above: Performed By: #### 2 899181, 8571468, 2953107 ####[address] [address] ALP [Catalytic activity/Vol] 66 Int._Unit/L Normal 21-98 [facility] Comment on above: Performed By: #### 2 945165, 6409804, 8431567 ####[address] [address] ALT No additional P-5'-P [Catalytic activity/Vol] 32 Int._Unit/L Normal 6-46 [facility] Comment on above: Performed By: #### 2 735732, 9625763, 0202529 ####[facility] [address] [place] [address] AST [Catalytic activity/Vol] 36 Int._Unit/L Normal 5-43 [facility] Comment on above: Performed By: #### 2 090257, 0670766, 4684888 ####[address] [place] [address] Bilirubin [Mass/Vol] 0.6 mg/dL Normal 0.0-1.1 [facility] Comment on above: Performed By: #### 2 281614, 6780661, 6546681 ####[address] [place] [address] Bilirubin.direct [Mass/Vol] 0.1 mg/dL Normal 0.1-0.4 [facility] Comment on above: Performed By: #### 2 188076, 4218398, 1543455 ####[address] [address] Bilirubin.indirect [Mass or moles/Vol] 0.5 mg/dL Normal 0.1-0.9 [facility] Comment on above: Performed By: #### 2 753058, 6334610, 9427237 ####[address] [address] Globulin (S) [Mass/Vol] 4.0 g/dL Normal 1.4-4.0 [facility] Comment on above: Performed By: #### 2 350180, 8718772, 6565055 ####[address] [address] Protein [Mass/Vol] 7.9 g/dL High 6.0-7.8 [facility] Comment on above: Performed By: #### 2 979462, 1032133, 2780666 ####[address] [address] PhuU8zci 02-15-2023 HbA1c (Bld) [Mass fraction] 6.8 % High <=5.9 [facility] Comment on above: Performed By: #### 7 32136462 ####[address] [address] CNPShireen 2023 [place] Telephone (RHEUMN) JAS GONZALEZ ([id number]) 1950 M DEF Date Time Provider Department [...] Status:Closed by JUMA MONK on 01/28/23 Normal [facility] CRP SerPl-mCncon 01-25-2023 CRP [Mass/Vol] 0.7 mg/dL Normal <0.9 [facility] Comment on above: Order Comment: Speci men Type: BLOOD SPECIMENOrdering Facility: [facility] Address: [address] [place] [address] Performed By: #### 1 988-5 ####[facility] [id number] [address] [place] ESR Westergren method (Bld) [Velocity]on 01-25-2023 ESR (Bld) [Velocity] 24 mm/h High 0-15 [facility] Comment on above: Order Comment: Speci men Type: BLOOD SPECIMENOrdering Facility: [facility] Address: [address] [place] [address] Performed By: #### 4 537-7 ####[facility] [id number] [address] [place] MRI SACRUM/COCCYX WO IVCONon [...] fat suppression and field inhomogeneity, and diminished qnvbjx-bw-liafc ratio. SACROILIAC JOINTS: Apparent mild partial ankylosis [...] cyst. Marked lower lumbar spine degenerative changes. Gluer And Wedger: PSCB Transcribe Date/Time: Jan 25 2023 11:15A Dictated by : GAGE BLUM MD This examination was interpreted and the report reviewed and electronically signed by: GAGE BLUM MD on Jan 25 2023 12:05PM EST [id number] Normal [facility] Consent for Procedure/Surger yon 01-24-2023 Consent for Procedure/Surgery [id number]#[id number] CD:127 Normal [facility] Gastroenterology Office/Clin ic Noteon 01-24-2023 Gastroenterology Office/Clinic Note Normal [facility] Comment on above: Result Comment: Elec tronically Signed By: Zahra Barton\.br\Date and Time Signed: 01/23/23 12:42 EDT\.br\Electronically Co-Signed By: Joycelyn CHERRY MD\.br\Date and Time Co-Signed: 01/24/23 09:04 EDT Ambulatory Visit Summaryon 0 01-23-2023 Ambulatory Visit Summary Normal [address] [place] [address]- \.br\ Medications\.br\ What How Much When Why [...] Unchanged fluticasone nasal (Flonase 0.05 mg/ inh [place]) 2 Sprays Nasal Inhalation Every day Allergic [...] with hiatal hernia\.br\ High serum protein level\.br\ FPC current use of oral hypoglycemic drug\.br\ Numbness [...] pulmonary embolus\.br\ kidney stones\.br\ Left shoulder pain\.br\ FPC (current) use of anticoagulants\.b r\ Lumbago\.br\ Lumbar radiculopathy, chronic\.br\ Morbid obesity due to excess calories\.br\ Obesity\.br\ Pulmonary embolism on right\.br\ Rib pain on right side\.br\ Spasm of muscle of lower back\.br\ Vertigo, benign paroxysmal\.br\ \.br\ [facility] Physician Orderon 12-18-2022 Physician Order [id number]#1.00C D:127 Normal [facility] Physician Order [id number] D:127 Normal [facility] 12-17-2022 [place] Telephone (RHEUMN) JAS GONZALEZ ([id number]) 1950 M DEF Date Time Provider Department [...] elsewhere classified [M53.3] Order(s):MRI SACRUM/COCCYX WO IVCON [7012251] Order #: [id number] FUTURE C-REACTIVE PROTEIN (CRP) [SQCRP] Order #: [id number] FUTURE SED RATE WESTERGREN [SQWSR] Order #: [id number] FUTURE Prescriptions as of 12/17/2022 - aspirin [...] Status:Closed by JUMA MONK on 12/17/22 Normal [facility] Ambulatory Visit Summaryon 0 12-10-2022 Ambulatory Visit Summary Invalid Interpretation Code [address] [place] [address]- \.br\ Saturday 11:00 AM EST \.br\ With:\.br\ Where: [facility] Primary Care [facility] Family Medicine Office/Clini c Noteon 12-10-2022 Family Medicine Office/Clinic Note Normal [facility] Comment on above: Result Comment: Elec tronically Signed By: Mt GOODEN DO, FAAFP\.br\Date and Time Signed: 12/10/22 10:50 EDT Patient Educationon 12-11-19 Patient Education Normal [facility] Consultation Noteon 12-09-19 Consultation Note [id number] :127 Normal [facility] CNOVon 12-05-2022 CNOV Office Visit (KRYSTIN ) JAS GONZALEZ ([id number]) 1950 M DEF Date Time Provider Department 12/05/22 1:00 PM JUMA MONK During your visit today, we recorded the following information about you: Pulse Respiration Blood pressure Weight 83/minute 18/minute 118/74 154.2 kg Juma Monk MD 12/05/2022 1:29 PM Signed [facility] Out[facility] Date of Service: 12/05/2022 Patient: Jas Gonzalez Medical Record: [id number] Primary Care Physician: No primary care provider [...] Social Hist (more content not included)... Normal [facility] Coding Summary.on 12-05-2022 Coding Summary. 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 Gluer And Wedger: PSCB Transcribe Date/Time: Dec 06 2022 2:43P Dictated by : GAGE BLUM MD This examination was interpreted and the report reviewed and electronically signed by: GAGE BLUM MD on Dec 06 2022 2:46PM EST [id number] Normal [facility] CNPShireen 12-04-2022 [place] Telephone (KRYSTIN) JAS GONZALEZ ([id number]) 1950 M DEF Date Time Provider Department [...] Status:Closed by ANGIE LARA on 12/04/22 Normal [facility] ABO/Rhon 12-02-2022 ABO/Rh Positive Invalid Interpretation Code [facility] Comment on above: Performed By: #### 2 867521, 70145362, 67840463, 40831257 ####[facility] [address] [place] [address] ABO/Rh History Checkon 12-02 ABO/Rh History Check Patient discharged prior Normal [facility] Comment on above: Performed By: #### 2 426883, 35828238, 02795703, 82105332 ####[address] [place] [address] ABSCon 12-02-2022 ABSC Gel Interp Negative Normal [facility] Comment on above: Performed By: #### 2 302564, 34640472, 90289400, 47640124 ####[address] [place] [address] Auto Diffon 12-02-2022 Basophils/100 WBC (Bld) 0.6 % Normal 0.0-2.0 [facility] Comment on above: Order Comment: Order Added by Discern Expert. Performed By: #### 2 152507, 63299016, 9220090, 2113552, 77121512, 7670222 ####[address] [address] Basophils/Leukocyte s Auto (Bld) [Pure # fraction] 0.0 E9/L Normal 0.0-0.2 [facility] Comment on above: Order Comment: Order Added by Discern Expert. Performed By: #### 2 161235, 63615459, 3663527, 9396366, 21243174, 6560738 ####[address] [place] [address] Eosinophils/100 WBC (Bld) 1.9 % Normal 0.0-8.0 [facility] Comment on above: Order Comment: Order Added by Discern Expert. Performed By: #### 2 832096, 40348243, 9637348, 3206999, 40433147, 5417948 ####[address] [place] [address] Eosinophils/Leukocy camden Auto (Bld) [Pure # fraction] 0.1 E9/L Normal 0.0-0.5 [facility] Comment on above: Order Comment: Order Added by Discern Expert. Performed By: #### 2 098486, 15643268, 5887740, 0802721, 12515726, 6501692 ####[address] [place] [address] Lymphocytes/100 WBC (Bld) 28.4 % Normal 14.0-50.0 [facility] Comment on above: Order Comment: Order Added by Discern Expert. Performed By: #### 2 578425, 30513269, 3060258, 7123734, 16169450, 1220714 ####[address] [place] [address] Lymphocytes/Leukocy camden Auto (Bld) [Pure # fraction] 1.5 E9/L Normal 1.0-4.0 [facility] Comment on above: Order Comment: Order Added by Discern Expert. Performed By: #### 2 312938, 32209505, 2871948, 8494872, 00134862, 1835972 ####[address] [address] Monocytes/100 WBC (Bld) 9.3 % Normal 4.0-14.0 [facility] Comment on above: Order Comment: Order Added by Discern Expert. Performed By: #### 2 635303, 93241498, 3991337, 9652290, 04319117, 0787080 ####[address] [address] Monocytes/Leukocyte s Auto (Bld) [Pure # fraction] 0.5 E9/L Normal 0.2-1.0 [facility] Comment on above: Order Comment: Order Added by Discern Expert. Performed By: #### 2 766380, 70165769, 3704015, 4840892, 67090739, 9677233 ####[address] [place] [address] Neutrophils/100 WBC (Bld) 59.8 % Normal 36.0-75.0 [facility] Comment on above: Order Comment: Order Added by Discern Expert. Performed By: #### 2 778252, 84135670, 6659738, 4745459, 61133760, 3818015 ####[address] [address] Neutrophils/Leukocy camden Auto (Bld) [Pure # fraction] 3.1 E9/L Normal 2.0-7.5 [facility] Comment on above: Order Comment: Order Added by Discern Expert. Performed By: #### 2 705624, 64944108, 9808247, 6525638, 90980407, 4007035 ####[facility] [address] [place] [address] BLOOD BANKOrdered By: Keturah Bar on 12-02-2022 ABO/Rh Interp Positive Invalid Interpretation Code [facility] BB Subsection ABSC Gel Interp Negative (12/02/22 1:07 PM) Normal [facility] BB Subsection BMPon 12-02-2022 Creatinine [Mass/Vol] 0.9 mg/dL Normal 0.5-1.3 [facility] Comment on above: Performed By: #### 2 271270, 27202448, 7967224, 8780687, 17915608, 6743780 ####[facility] [address] [place] [address] Urea nitrogen [Mass/Vol] 14 mg/dL Normal 5-21 [facility] Comment on above: Performed By: #### 2 016673, 40678337, 4535569, 4136372, 30503750, 8694450 ####[facility] [address] [place] [address] Urea nitrogen/Creatinine [Mass ratio] 16 No Units Normal 10-20 [facility] Comment on above: Performed By: #### 2 391217, 14097550, 9090790, 0124554, 36473863, 3970105 ####[facility] [address] [place] [address] Anion gap [Moles/Vol] 10 mmol/L Normal 6-16 [facility] Comment on above: Performed By: #### 2 483559, 65141107, 6429973, 1364882, 72117455, 5199736 ####[facility] [address] [place] [address] Calcium [Mass/Vol] 8.9 mg/dL Normal 8.9-11.1 [facility] Comment on above: Performed By: #### 2 017644, 26625112, 5904388, 1122180, 53646742, 2056725 ####[facility] [address] [place] [address] Chloride [Moles/Vol] 98 mmol/L Low 101-111 [facility] Comment on above: Performed By: #### 2 207221, 88436466, 8775023, 8997665, 94201582, 2216432 ####[facility] [address] [place] [address] CO2 [Moles/Vol] 30 mmol/L Normal 21-31 [facility] Comment on above: Performed By: #### 2 243631, 96382049, 5091615, 2334924, 74889666, 8876054 ####[facility] [address] [place] [address] Glucose [Mass/Vol] 137 mg/dL Normal 55-199 [facility] Comment on above: Result Comment: If t his glucose result represents a fasting glucose, interpretation should refer to the following reference range: 55-99 mg/dL Performed By: #### 2 656330, 06194577, 5201536, 2101431, 28586665, 9750414 ####[facility] [address] [place] [address] Potassium [Moles/Vol] 3.6 mmol/L Normal 3.5-5.3 [facility] Comment on above: Performed By: #### 2 117809, 12855641, 7562936, 5883208, 39454636, 8561621 ####[facility] [address] [place] [address] Sodium [Moles/Vol] 134 mmol/L Low 135-145 [facility] Comment on above: Performed By: #### 2 565351, 79488073, 7153777, 7594133, 03117815, 9266151 ####[facility] [id number] Blood Bank ID#on 12-02-2022 BBID# [id number] Invalid Interpretation Code [facility] Comment on above: Performed By: #### 2 152369, 60199755, 45428198, 42128753 ####[address] [address] CBC w/ Auto Diffon Erythrocyte distribution width (RBC) [Ratio] 13.9 % Normal 10.9-14.2 [facility] Comment on above: Performed By: #### 2 240607, 15239091, 4293236, 6187231, 27941755, 3124563 ####[address] [address] Hematocrit (Bld) [Volume fraction] 44.1 % Normal 37.7-49.0 [facility] Comment on above: Performed By: #### 2 037397, 85547299, 5107616, 2416713, 71191848, 9855590 ####[address] [address] Hemoglobin (Bld) [Mass/Vol] 14.5 g/dL Normal 13.5-17.5 [facility] Comment on above: Performed By: #### 2 996029, 91449023, 2224265, 1299118, 51412288, 3916239 ####[address] [address] MCH (RBC) [Entitic mass] 30.7 pg Normal 27.0-34.0 [facility] Comment on above: Performed By: #### 2 911798, 31388076, 5975178, 8100644, 65133547, 3649380 ####[address] [address] MCHC (RBC) [Mass/Vol] 32.9 g/dL Normal 31.4-36.0 [facility] Comment on above: Performed By: #### 2 955270, 53892746, 6954377, 7709788, 65237216, 3973776 ####[facility] [address] [place] [address] MCV (RBC) [Entitic vol] 93.1 fL Normal 80.0-100.0 [facility] Comment on above: Performed By: #### 2 337621, 02189961, 9430546, 3302289, 15737953, 0937682 ####[address] [place] [address] Platelet mean volume (Bld) [Entitic vol] 8.2 fL Normal 6.4-10.8 [facility] Comment on above: Performed By: #### 2 529573, 77918227, 9185538, 5061722, 60194141, 6089267 ####[address] [address] Platelets (Bld) [#/Vol] 135.0 E9/L Low 150.0-500.0 [facility] Comment on above: Performed By: #### 2 113786, 19437922, 0673622, 1255038, 09814988, 8219584 ####[address] [address] RBC (Bld) [#/Vol] 4.7 E12/L Normal 4.3-5.9 [facility] Comment on above: Performed By: #### 2 030717, 32609368, 4674529, 9058947, 03824624, 8142634 ####[address] [place] [address] WBC corrected for nucl RBC Auto (Bld) [#/Vol] 5.2 E9/L Normal 4.0-11.0 [facility] Comment on above: Performed By: #### 2 458158, 39780924, 3894126, 2013929, 53316320, 2734945 ####[address] [place] [address] CHEMISTRYOrdered By: SYSTEM SYSTEM on 04-23-2023 Albumin [...] 14 mg/dL Normal 5 - 21 mg/dL [facility] Remisol Urea nitrogen/Creatinine [Mass ratio] 16 mg/mg Normal 10 - 20 [facility] Remisol COAGULATIONOrdered By: Brandie Sams on 12-02-2022 aPTT Coag (PPP) [Time] 32.2 s Normal 25.1 - 36.5 second(s) [facility] Auto Coag INR Coag (PPP) [Relative time] 1.1 {INR} Invalid Interpretation Code [facility] Auto Coag PT Coag (PPP) [Time] 11.8 s Normal 9.4 - 12.5 second(s) [facility] Auto Coag Consent for Treatmenton 11-11 Consent for Treatment [id number]#1.00C D:127 Normal [facility] Discharge Instructionson Discharge Instructions [id number]#1.00CD :127 Normal [facility] ED Clinical Summaryon 2022 ED Clinical Summary Normal [facility] ED Note-Physicianon 12-03-19 ED Note-Physician Normal [facility] Comment on above: Result Comment: Elec tronically Signed By: Severo Mcnair PA-C\.br\Date and Time Signed: 12/02/22 16:04 EDT\.br\Electronically Co-Signed By: Arturo Alvarez M.D.\.br\Date and Time Co-Signed: 12/02/22 18:18 EDT ED Patient Education Noteon 12-02-2022 ED Patient Education Note Normal [facility] ED Patient Summaryon 023 ED Patient Summary Normal [facility] HEMATOLOGYOrdered By: SYSTEM SYSTEM on 12-02-2022 Basophils/100 [...] 93.1 fL Normal 80.0 - 100.0 fL [facility] HemeAutoSS Platelet mean volume (Bld) [Entitic vol] 8.2 fL Normal 6.4 - 10.8 fL [facility] HemeAutoSS Platelets (Bld) [#/Vol] 135.0 E9/L Low 150.0 - 500.0 E9/L [facility] HemeAutoSS RBC (Bld) [#/Vol] 4.7 E12/L Normal 4.3 - 5.9 E12/L FT HemeAutoSS WBC corrected for nucl RBC Auto (Bld) [#/Vol] 5.2 E9/L Normal 4.0 - 11.0 E9/L [facility] HemeAutoSS Hep Func Panelon 12-02-2022 Bilirubin.indirect [Mass or moles/Vol] UTC Abnormal 0.1-0.9 [facility] Comment on above: Result Comment: Resu lt verified by Discern Rule. Performed result UTC (Unable to Calculate) was sent as an Alpha code due the inability to calculate a valid numeric value. Performed By: #### 2 536854, 19883793, 6769691, 0967618, 47002526, 4211236 ####[facility] [address] [place] [address] Albumin [Mass/Vol] 3.5 g/dL Normal 3.3-5.0 [facility] Comment on above: Performed By: #### 2 782728, 42355502, 3961141, 4023089, 33225299, 1429457 ####[facility] [address] [place] [address] Albumin/Globulin (S) [Mass conc ratio] 1.0 Low 1.1-2.2 [facility] Comment on above: Performed By: #### 2 147155, 03927045, 6205474, 6792738, 84913716, 2146418 ####[facility] [address] [place] [address] ALP [Catalytic activity/Vol] 55 Int._Unit/L Normal 21-98 [facility] Comment on above: Performed By: #### 2 653158, 97518750, 7033764, 7344372, 32750798, 9616939 ####[facility] [address] [place] [address] ALT No additional P-5'-P [Catalytic activity/Vol] 37 Int._Unit/L Normal 6-46 [facility] Comment on above: Performed By: #### 2 149858, 90941105, 6675764, 5367669, 50877362, 4389897 ####[address] [place] [address] AST [Catalytic activity/Vol] 44 Int._Unit/L High 5-43 [facility] Comment on above: Performed By: #### 2 186575, 81579798, 7412425, 1322312, 37440278, 1759509 ####[address] [address] Bilirubin [Mass/Vol] 0.4 mg/dL Normal 0.0-1.1 [facility] Comment on above: Performed By: #### 2 996329, 33330602, 3161666, 7548718, 17350547, 6981545 ####[address] [address] Bilirubin.direct [Mass/Vol] mg/dL Normal 0.1-0.4 [facility] Comment on above: Performed By: #### 2 034472, 15550359, 1052196, 0111398, 99238548, 2090118 ####[address] [address] Globulin (S) [Mass/Vol] 3.5 g/dL Normal 1.4-4.0 [facility] Comment on above: Performed By: #### 2 702403, 48740183, 5106481, 3950833, 60905078, 3538455 ####[address] [place] [address] Protein [Mass/Vol] 7.0 g/dL Normal 6.0-7.8 [facility] Comment on above: Performed By: #### 2 183695, 70322084, 9758474, 4806997, 96205549, 2772753 ####[facility] [address] [place] [address] MICRO OTHER TESTSOrdered By: Kelly Laucurly on 12-02-2022 Occult Bld Stl Positive *ABN* (12/02/22 3:01 PM) Invalid Interpretation Code Negative [facility] Man Sero PT & PTTon 12-02-2022 aPTT Coag (PPP) [Time] 32.2 second(s) Normal 25.1-36.5 [facility] Comment on above: Result Comment: Para meter [...] the same coagulation reagent and instrumentation as [facility]. Currently there are no coagulation studies available worldwide for children to 14 days, and no normal ranges. Heparin therapeutic range (represented by Anti-Factor Xa activity of 0.2 - 0.4 U/mL) corresponds to PTT of 56.6 - 109.0 sec. Performed By: #### 2 350280, 71692868, 4716401, 3142680, 18871174, 1212794 ####[facility] [address] [place] [address] INR Coag (PPP) [Relative time] 1.1 {INR} Invalid Interpretation Code [facility] Comment on above: Result Comment: INR results are specifically intended to assess patients stabilized on long-term Anticoagulation therapy suggested INR?s ?Less Intensive Anticoagulation? 2.0 ? 3.0Conventional Range 3.0 ? 4.5 Performed By: #### 2 142400, 50994437, 9802371, 8528922, 70862596, 2435809 ####[facility] [address] [place] [address] PT Coag (PPP) [Time] 11.8 second(s) Normal 9.4-12.5 [facility] Comment on above: Result Comment: 15 d [...] the same coagulation reagent and instrumentation as [facility]. Currently there are no coagulation studies available worldwide for children to 14 days, and no normal ranges. Performed By: #### 2 027830, 48676685, 9206143, 7319992, 55084306, 2792002 ####[facility] [address] [place] [address] Stl Oclt Bldon 12-02-2022 Occult Bld Stl Positive Abnormal Negative [facility] Comment on above: Performed By: #### 2 2692857 ####[facility] [address] [place] [address] eGFRon 12-02-2022 GFR/1.73 sq M.predicted among blacks MDRD (S/P/Bld) [Vol rate/Area] mL/min/{1.73_m2} Normal >=59 [facility] Comment on above: Order Comment: Order added by Discern Expert. Result Comment: eGFR is race adjusted. AA=. Performed By: #### 2 040531, 94210258, 8625177, 1507489, 80520811, 8880847 ####[facility] [address] [place] [address] GFR/1.73 sq M.predicted among non-blacks MDRD (S/P/Bld) [Vol rate/Area] mL/min/{1.73_m2} Normal >=59 [facility] Comment on above: Order Comment: Order added by Discern Expert. 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 Kidney failure is indicated at less than 15 mL/min/1.73m2. Performed By: #### 2 383725, 72176906, 9641282, 0084978, 02102171, 2819008 ####[facility] [address] [place] [address] Coding Summary.on 11-30-2022 Coding Summary. [facility] Consent for Treatmenton 11-11 Consent for Treatment [id number]#1.00CD :127 [facility] Consultation Noteon 11-30-19 Consultation Note Normal [facility] Comment on above: Result Comment: Elec tronically Signed By: Georgi ESPINAL, Pawan\.br\Date and Time Signed: 11/29/22 10:31 EDT Office/Clinic Note-Physician on 11-29-2022 Office/Clinic Note-Physician [id number]#1.00 CD:127 Normal [facility] Patient Correspondenceon Patient Correspondence [id number]#1.00 CD:127 Normal [facility] Patient History Officeon Patient History Office [id number]#1.00 CD:127 [facility] Transfer Inon 11-26-2022 Transfer In [id number]#1.00C D:127 [facility] Coding Summary.on 11-24-2022 Coding Summary. Normal [facility] US Aorta Completeon 11-21-19 US Aorta Complete Normal [facility] Consent for Treatmenton 11-10 Consent for Treatment [id number]#1.00C D:127 [facility] Consultation Noteon 11-18-19 Consultation Note [id number]#1.00C D:127 [facility] Auth for Release of Medical Recordson 11-16-2022 Auth for Release of Medical Records [id number]#1.00C D:127 [facility] CNOVon 11-14-2022 CNOV Office Visit (KRYSTIN ) JAS GONZALEZ ([id number]) 1950 M DEF Date Time Provider Department 11/14/22 1:30 PM JUMA MONK During your visit today, we recorded the following information about you: Pulse Blood pressure Weight Height 73/minute 121/63 151.5 kg 1.854 m Juma Monk MD 11/16/2022 9:45 AM Signed [facility] Out[facility] Date of Service: 11/14/2022 Patient: Jas Gonzalez Medical Record: [id number] Primary Care Physician: No primary care provider [...] 144 mmol/L (more content not included)... Normal [facility] Family Medicine Office/Clini c Noteon 11-08-2022 Family Medicine Office/Clinic Note Normal [facility] Comment on above: Result Comment: Elec tronically Signed By: Mt GOODEN DO, FAAFP\kelvin\Date and Time Signed: 11/08/22 10:50 EDT Patient Educationon 11-09-19 Patient Education Normal [facility] Coding Summary.on 10-29-2022 Coding Summary. Normal [facility] CHEMISTRYOrdered By: Lab ROP User on 10-24-2022 Glucose [Mass/Vol] 138 mg/dL High 55 - 99 mg/dL FT C POC Subsection POC Device SN [id number] Invalid Interpretation Code [facility] POC Subsection POC User ID [id number] Invalid Interpretation Code [facility] POC Subsection POC Username LESLIE AUGUSTINE Invalid Interpretation Code [facility] POC Subsection Capillary Glucose POCon 10-10 Glucose [Mass/Vol] 138 mg/dL High 55-99 [facility] Comment on above: Performed By: #### 2 [id number] ####[facility] [address] [place] [address] Consent for Procedure/Surger yon 10-24-2022 Consent for Procedure/Surgery [id number]#1.00 CD:127 [facility] Consent for Treatmenton 10-10 Consent for Treatment [id number]#1.00C D:127 Normal [facility] Consultation Noteon 10-25-19 23 Consultation Note [id number]#1.00C D:127 Normal [facility] Consultation Note [id number]#1.00C D:127 [facility] Discharge Instructionson Discharge Instructions [id number]#1.00 CD:127 Normal [facility] IntraOperative Documentson 0 10-24-2022 IntraOperative Documents [id number]#1.00 CD:127 [facility] IntraOperative Documents [id number]#1.00 CD:127 [facility] Main OR Intraoperative Recor don 10-24-2022 Main OR Intraoperative Record [facility] Main OR Preoperative Recordo n 10-24-2022 Main OR Preoperative Record [facility] Operative Reporton Operative Report [facility] Comment on above: Result Comment: Elec tronically Signed By: Pawan Laureano MD\.br\Date and Time Signed: 10/24/22 19:25 EDT Patient Correspondenceon Patient Correspondence [id number]#1.00CD :127 [facility] Coding Summary.on 10-01-2022 Coding Summary. [facility] Consultation Noteon 09-29-19 Consultation Note [facility] Comment on above: Result Comment: Elec tronically Signed By: Pawan Laureano MD\.br\Date and Time Signed: 09/29/22 20:14 EST Consent for Treatmenton 09-12 Consent for Treatment [id number]#1.00C D:127 [facility] Office/Clinic Note-Physician on 09-27-2022 Office/Clinic Note-Physician [id number]#1.00C D:127 [facility] Patient Correspondenceon Patient Correspondence [id number]#1.00C D:127 [facility] Patient History Officeon Patient History Office [id number]#1.00C D:127 [facility] Physician Orderon 09-27-2022 Physician Order [id number]#1.00C D:127 [facility] Consent for Treatmenton Consent for Treatment [id number]#1.00C D:127 [facility] Auth for Release of Medical Recordson 09-17-2022 Auth for Release of Medical Records [id number]#1.00C D:127 [facility] Ambulatory Visit Summaryon 09-14-2022 Ambulatory Visit Summary Normal [address] [place] [address]- \.br\ You Need to Schedule the Following Appointments\.br\ Follow Up with Perla LEE, BEATRI[facility] When: Within 1 month, only if needed\.br\ Comments:\.br\ 40 mins\.br\ Where:\.br\ [address]\.br\ [place] [id number]\.br\ Medications\.br\ What How Much When Why Instructions\.br\ [...] with hiatal hernia\.br\ High serum protein level\.br\ [facility]PC current use of oral hypoglycemic drug\.br\ Numbness [...] stones\.br\ Left shoulder pain\.br\ 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 Normal [facility] Coding Summary. Normal [facility] Auto Diffon 09-10-2022 Basophils/100 WBC (Bld) 0.8 % Normal 0.0-2.0 [facility] Comment on above: Order Comment: Order Added by Discern Expert. Performed By: #### 1 [id number], 81448541, 2337176, 0141390, 4901834, 0081701, 9261988 ####[facility] [address] [place] [address] Basophils/Leukocyte s Auto (Bld) [Pure # fraction] 0.1 E9/L Normal 0.0-0.2 [facility] Comment on above: Order Comment: Order Added by Discern Expert. Performed By: #### 1 0615545, 75808492, 5981884, 0778408, 6197960, 2289554, 9224414 ####[address] [place] [address] Eosinophils/100 WBC (Bld) 1.7 % Normal 0.0-8.0 [facility] Comment on above: Order Comment: Order Added by Discern Expert. Performed By: #### 1 4929297, 01238520, 9454921, 0673620, 8942903, 9263124, 7605059 ####[address] [place] [address] Eosinophils/Leukocy camden Auto (Bld) [Pure # fraction] 0.1 E9/L Normal 0.0-0.5 [facility] Comment on above: Order Comment: Order Added by Discern Expert. Performed By: #### 1 0379781, 00958238, 1237763, 4140323, 3320160, 9632768, 8792592 ####[address] [address] Lymphocytes/100 WBC (Bld) 34.3 % Normal 14.0-50.0 [facility] Comment on above: Order Comment: Order Added by Discern Expert. Performed By: #### 1 9965337, 49598193, 3798220, 1903168, 0216147, 4515627, 7112690 ####[address] [address] Lymphocytes/Leukocy camden Auto (Bld) [Pure # fraction] 2.2 E9/L Normal 1.0-4.0 [facility] Comment on above: Order Comment: Order Added by Discern Expert. Performed By: #### 1 3975141, 54333370, 4444260, 2365251, 6484559, 6619145, 1515610 ####[address] [place] [address] Monocytes/100 WBC (Bld) 7.4 % Normal 4.0-14.0 [facility] Comment on above: Order Comment: Order Added by Discern Expert. Performed By: #### 1 5293522, 57567085, 0532882, 1530565, 4731239, 6201320, 7076849 ####[facility] [address] [place] [address] Monocytes/Leukocyte s Auto (Bld) [Pure # fraction] 0.5 E9/L Normal 0.2-1.0 [facility] Comment on above: Order Comment: Order Added by Discern Expert. Performed By: #### 1 0419717, 43615713, 1385648, 2619132, 4036645, 9056951, 2816284 ####[facility] [address] [place] [address] Neutrophils/100 WBC (Bld) 55.8 % Normal 36.0-75.0 [facility] Comment on above: Order Comment: Order Added by Discern Expert. Performed By: #### 1 2416273, 38502791, 2640341, 9290101, 2113386, 6358696, 6880168 ####[address] [place] [address] Neutrophils/Leukocy camden Auto (Bld) [Pure # fraction] 3.6 E9/L Normal 2.0-7.5 [facility] Comment on above: Order Comment: Order Added by Discern Expert. Performed By: #### 1 6501898, 35915576, 2402080, 7069428, 8504082, 6149018, 2556339 ####[facility] [address] [place] [address] BMPon 09-10-2022 Anion gap [Moles/Vol] 11 mmol/L Normal 6-16 [facility] Comment on above: Performed By: #### 1 3631692, 23567790, 1331988, 8470858, 2366948, 7404140, 3037514 ####[facility] [address] [place] [address] Calcium [Mass/Vol] 9.4 mg/dL Normal 8.9-11.1 [facility] Comment on above: Performed By: #### 1 9609677, 97097138, 8207312, 9455542, 0518980, 8306731, 8340446 ####[facility] [address] [place] [address] Chloride [Moles/Vol] 101 mmol/L Normal 101-111 [facility] Comment on above: Performed By: #### 1 3293963, 05904336, 7965823, 0287583, 4190567, 6160708, 8499955 ####[facility] [address] [place] [address] CO2 [Moles/Vol] 30 mmol/L Normal 21-31 [facility] Comment on above: Performed By: #### 1 4124253, 97034195, 5553425, 6166510, 4274350, 5373262, 0878438 ####[facility] [address] [place] [address] Creatinine [Mass/Vol] 0.9 mg/dL Normal 0.5-1.3 [facility] Comment on above: Performed By: #### 1 3307752, 48612184, 0357582, 8942312, 7097552, 1107602, 5184114 ####[facility] [address] [place] [address] Glucose [Mass/Vol] 119 mg/dL Normal 55-199 [facility] Comment on above: Result Comment: If t his glucose result represents a fasting glucose, interpretation should refer to the following reference range: 55-99 mg/dL Performed By: #### 1 1737726, 47538194, 7434858, 9577444, 4347323, 2680968, 8611207 ####[facility] [address] [place] [address] Potassium [Moles/Vol] 4.0 mmol/L Normal 3.5-5.3 [facility] Comment on above: Performed By: #### 1 9405640, 43926824, 1278245, 6868993, 4982260, 3217862, 4507727 ####[facility] [address] [place] [address] Sodium [Moles/Vol] 138 mmol/L Normal 135-145 [facility] Comment on above: Performed By: #### 1 4207233, 10788091, 1811292, 1400211, 2277971, 7535576, 7611749 ####[facility] [address] [place] [address] Urea nitrogen [Mass/Vol] 17 mg/dL Normal 5-21 [facility] Comment on above: Performed By: #### 1 7169483, 10337413, 6830978, 7191701, 8577355, 6470870, 2614016 ####[facility] [address] [place] [address] Urea nitrogen/Creatinine [Mass ratio] 19 No Units Normal 10-20 [facility] Comment on above: Performed By: #### 1 2276977, 88024010, 2761328, 5493238, 6819878, 6154280, 2753013 ####[facility] [address] CBC w/ Auto Diffon 3 Erythrocyte distribution width (RBC) [Ratio] 14.5 % High 10.9-14.2 [facility] Comment on above: Performed By: #### 1 9656059, 24930847, 2282552, 8453176, 5042461, 6585619, 9247707 ####[facility] [address] [place] [address] Hematocrit (Bld) [Volume fraction] 45.0 % Normal 37.7-49.0 [facility] Comment on above: Performed By: #### 1 3390878, 74942102, 0980501, 1790938, 5627325, 6133521, 3272927 ####[facility] [address] [place] [address] Hemoglobin (Bld) [Mass/Vol] 14.6 g/dL Normal 13.5-17.5 [facility] Comment on above: Performed By: #### 1 1150963, 37881226, 7904673, 0290745, 7152025, 3958744, 8973434 ####[facility] [address] [place] [address] MCH (RBC) [Entitic mass] 30.8 pg Normal 27.0-34.0 [facility] Comment on above: Performed By: #### 1 8132054, 23305766, 2379640, 9416440, 6780785, 0457060, 4589915 ####[facility] [address] MCHC (RBC) [Mass/Vol] 32.5 g/dL Normal 31.4-36.0 [facility] Comment on above: Performed By: #### 1 8695575, 83986465, 2494405, 8720082, 1682825, 3498241, 0673870 ####[address] [address] MCV (RBC) [Entitic vol] 94.6 fL Normal 80.0-100.0 [facility] Comment on above: Performed By: #### 1 2520555, 37925062, 9446188, 2105652, 4576287, 2271463, 8813256 ####[address] [address] Platelet mean volume (Bld) [Entitic vol] 8.3 fL Normal 6.4-10.8 [facility] Comment on above: Performed By: #### 1 0443887, 95353357, 2833393, 2476986, 0895178, 7985673, 4721250 ####[address] [address] Platelets (Bld) [#/Vol] 159.0 E9/L Normal 150.0-500.0 [facility] Comment on above: Performed By: #### 1 1178402, 45364895, 0824967, 0457294, 3209155, 8443504, 5775944 ####[address] [address] RBC (Bld) [#/Vol] 4.8 E12/L Normal 4.3-5.9 [facility] Comment on above: Performed By: #### 1 1620855, 76419033, 4940341, 0798422, 0129004, 0315976, 2493363 ####[facility] [address] [place] [address] WBC corrected for nucl RBC Auto (Bld) [#/Vol] 6.4 E9/L Normal 4.0-11.0 [facility] Comment on above: Performed By: #### 1 5659802, 00151408, 3957278, 0983480, 0003093, 6918522, 1790427 ####[facility] [address] [place] [address] CHEMISTRYOrdered By: Elma Person on 09-10-2022 Albumin [...] [Vol rate/Area] mL/min/1.73 m2 Normal >=59mL/min/1.73 m2 [facility] Chem S GFR/1.73 sq M.predicted among non-blacks MDRD (S/P/Bld) [Vol rate/Area] mL/min/1.73 m2 Normal >=59mL/min/1.73 m2 [facility] Chem S Globulin (S) [Mass/Vol] 3.8 g/dL [...] ratio] 19 mg/mg Normal 10 - 20 [facility] Remisol CHEMISTRYOrdered By: Alia Heart on 09-10-2022 HbA1c (Bld) [Mass fraction] 6.3 % High <=5.9% [facility] ChemAutoSS Consent for Treatmenton 08-14 Consent for Treatment [id number]#1.00C D:127 Normal [facility] Consent for Treatment [id number]#1.00C D:127 Normal [facility] HEMATOLOGYOrdered By: SYSTEM SYSTEM on 09-10-2022 Basophils/100 [...] 3.6 E9/L Normal 2.0 - 7.5 E9/L [facility] HemeAutoSS HEMATOLOGYOrdered By: Chloe Reynolds on 09-10-2022 Erythrocyte distribution width (RBC) [Ratio] 14.5 % High 10.9 - 14.2 % FT HemeAutoSS Hematocrit (Bld) [Volume fraction] 45.0 % Normal 37.7 - 49.0 % FT HemeAutoSS Hemoglobin (Bld) [Mass/Vol] 14.6 g/dL Normal 13.5 - 17.5 gm/dL [facility] HemeAutoSS MCH (RBC) [Entitic mass] 30.8 pg Normal 27.0 - 34.0 pg FT HemeAutoSS MCHC (RBC) [Mass/Vol] 32.5 g/dL Normal 31.4 - 36.0 gm/dL FT HemeAutoSS MCV (RBC) [Entitic vol] 94.6 fL Normal 80.0 - 100.0 fL FT HemeAutoSS Platelet mean volume (Bld) [Entitic vol] 8.3 fL Normal 6.4 - 10.8 fL [facility] HemeAutoSS Platelets (Bld) [#/Vol] 159.0 E9/L Normal 150.0 - 500.0 E9/L [facility] HemeAutoSS RBC (Bld) [#/Vol] 4.8 E12/L Normal 4.3 - 5.9 E12/L [facility] HemeAutoSS WBC corrected for nucl RBC Auto (Bld) [#/Vol] 6.4 E9/L Normal 4.0 - 11.0 E9/L [facility] HemeAutoSS Hep Func Panelon 09-10-2022 Bilirubin.indirect [Mass or moles/Vol] UTC Abnormal 0.1-0.9 [facility] Comment on above: Result Comment: Resu lt verified by Discern Rule. Performed result UTC (Unable to Calculate) was sent as an Alpha code due the inability to calculate a valid numeric value. Performed By: #### 1 9229835, 56713877, 4102653, 7970967, 2479346, 7626658, 7414900 ####[facility] [address] [place] [address] Albumin [Mass/Vol] 4.1 g/dL Normal 3.3-5.0 [facility] Comment on above: Performed By: #### 1 4662903, 65662721, 0115859, 5935459, 1911924, 6723036, 5624336 ####[facility] [address] [place] [address] Albumin/Globulin (S) [Mass conc ratio] 1.1 Normal 1.1-2.2 [facility] Comment on above: Performed By: #### 1 7489324, 98187769, 2173457, 9698625, 6395410, 1148967, 2699940 ####[address] [place] [address] ALP [Catalytic activity/Vol] 56 Int._Unit/L Normal 21-98 [facility] Comment on above: Performed By: #### 1 2976747, 71889808, 3986271, 1154781, 1856294, 4431206, 3076876 ####[address] [address] ALT No additional P-5'-P [Catalytic activity/Vol] 37 Int._Unit/L Normal 6-46 [facility] Comment on above: Performed By: #### 1 6062950, 19324034, 9453166, 5348536, 6002450, 5370243, 3270852 ####[address] [address] AST [Catalytic activity/Vol] 39 Int._Unit/L Normal 5-43 [facility] Comment on above: Performed By: #### 1 0232926, 91405844, 3559206, 1024639, 4283390, 5568482, 8651077 ####[address] [place] [address] Bilirubin [Mass/Vol] 0.6 mg/dL Normal 0.0-1.1 [facility] Comment on above: Performed By: #### 1 1753990, 49755634, 8705943, 8937362, 0667152, 8836159, 7469438 ####[facility] [address] [place] [address] Bilirubin.direct [Mass/Vol] mg/dL Normal 0.1-0.4 [facility] Comment on above: Performed By: #### 1 1529563, 50568341, 8226010, 8897104, 7426441, 3650731, 8620591 ####[facility] [address] [place] [address] Globulin (S) [Mass/Vol] 3.8 g/dL Normal 1.4-4.0 [facility] Comment on above: Performed By: #### 1 1597590, 63561890, 7645746, 0231969, 6203920, 2564727, 4903887 ####[facility] [address] [place] [address] Protein [Mass/Vol] 7.9 g/dL High 6.0-7.8 [facility] Comment on above: Performed By: #### 1 5546421, 46427799, 2097595, 6037648, 7013612, 3359013, 1068299 ####[facility] [address] [place] [address] GmaB4vrr 09-10-2022 HbA1c (Bld) [Mass fraction] 6.3 % High <=5.9 [facility] Comment on above: Performed By: #### 7 82862129 ####[facility] [address] [place] [address] Lipid Panelon 09-10-2022 Cholesterol [Mass/Vol] 209 mg/dL High 120-200 [facility] Comment on above: Performed By: #### 1 8484001, 19724368, 1766434, 3218867, 6700085, 7543002, 2570377 ####[facility] [address] [place] [address] Cholesterol in HDL [Mass/Vol] 42 mg/dL Invalid Interpretation Code [facility] Comment on above: Result Comment: HDL > or equal to 60 mg/dL: Low cardiovascular riskHDL < 40 mg/dL : High cardiovascular risk Performed By: #### 1 7711878, 00513042, 0011733, 2846514, 6201404, 1092518, 6734048 ####[facility] [address] [place] [address] Cholesterol in LDL [Mass/Vol] 144 mg/dL High <=129 [facility] Comment on above: Performed By: #### 1 9552921, 70406806, 0849224, 7048893, 0891867, 6225841, 8657559 ####[facility] [address] [place] [address] Cholesterol in VLDL [Mass/Vol] 24 mg/dL Normal 7-40 [facility] Comment on above: Performed By: #### 1 5821755, 65874063, 8498201, 7413085, 6348357, 9546454, 0118430 ####[facility] [address] [place] [address] Triglyceride [Mass/Vol] 120 mg/dL Normal <=149 [facility] Comment on above: Performed By: #### 1 3564770, 33581609, 0004134, 9482670, 3889015, 6428574, 6919423 ####[facility] [address] [place] [address] MRI Spine Lumbar w/o Contras ton 09-10-2022 MRI Spine Lumbar w/o Contrast Normal [facility] PSA Screen, Totalon 09-10-19 23 Prostate specific Ag [Mass/Vol] 0.9 ng/mL Normal 0.1-3.5 [facility] Comment on above: Result Comment: The concentration of PSA determined by different manufacturers can vary due to differences in assay methods and reagent specificity. Values obtained from different assay methods cannot be used interchangeably. The methodology used for this result was chemiluminescence using [employer] Access Hybrite[employer] PSA reagent. Performed By: #### 1 2838686, 62537529, 3555712, 2401561, 6980313, 9628215, 3066012 ####[facility] [address] [place] [address] RAD - MRI Screening Formon 0 09-10-2022 RAD - MRI Screening Form [id number]#1.00C D:127 Normal [facility] U Microalbon 09-10-2022 Albumin DL <= 20 mg/L (U) [Mass/Vol] 11.6 microgram/mL Normal 0.0-19.0 [facility] Comment on above: Performed By: #### 1 1525615 ####[facility] [address] [place] [address] XR Spine Lumbosacral Minimum 4 Viewson 09-10-2022 XR Spine Lumbosacral Minimum 4 Views Normal [facility] eGFRon 09-10-2022 GFR/1.73 sq M.predicted among blacks MDRD (S/P/Bld) [Vol rate/Area] mL/min/{1.73_m2} Normal >=59 [facility] Comment on above: Order Comment: Order added by Discern Expert. Result Comment: eGFR is race adjusted. AA=. Performed By: #### 1 5688824, 04903084, 7558987, 6392120, 8317024, 1217185, 0344449 ####[facility] [address] [place] [address] GFR/1.73 sq M.predicted among non-blacks MDRD (S/P/Bld) [Vol rate/Area] mL/min/{1.73_m2} Normal >=59 [facility] Comment on above: Order Comment: Order added by Discern Expert. 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 Kidney failure is indicated at less than 15 mL/min/1.73m2. Performed By: #### 1 5054185, 67758395, 5271169, 3153069, 6963599, 2015682, 1814582 ####[facility] [address] [place] [address] Physician Orderon 08-31-2022 Physician Order [id number]#1.00C D:127 Normal [facility] Physician Order [id number]#1.00C D:127 Normal [facility] Physician Order [id number]#1.00 CD:127 Normal [facility] Physician Order [id number]#1.00 CD:127 Normal [facility] Physician Order [id number]#1.00 CD:127 Normal [facility] Consultation Noteon 08-29-19 Consultation Note Normal [facility] Comment on above: Result Comment: Elec tronically Signed By: Pawan Laureano MD\.br\Date and Time Signed: 08/29/22 08:28 EST Family Medicine Office/Clini c Noteon 08-29-2022 Family Medicine Office/Clinic Note Normal [facility] Comment on above: Result Comment: Elec tronically Signed By: Mt GODOEN DO, FAAFP\.br\Date and Time Signed: 08/29/22 12:52 EST\.br\Electronically Co-Signed By: Estelita Singh LPN\.br\Date and Time Co-Signed: 08/28/22 14:23 EST Ambulatory Visit Summaryon 0 08-28-2022 Ambulatory Visit Summary Invalid Interpretation Code [address] [place] [address]- \.br\ Saturday 11:00 AM EST \.br\ With:\.br\ Where: [facility] Primary Care [facility] Patient Educationon 08-28-19 Patient Education [facility] Screenson 08-28-2022 Screens [id number]#1.00C D:127 [facility] Coding Summary.on 08-27-2022 Coding Summary. Normal [facility] Ambulatory Visit Summaryon 0 08-23-2022 Ambulatory Visit Summary Invalid Interpretation Code [address] [place] [address]- \.br\ You Need to Schedule the Following Appointments\.br\ Follow Up with Mt GOODEN DO, FAAFP, BEATRIZ, PED When: In 6 months\.br\ Where:\.br\ [address], [address]br\ [place] [address].br\ \.br\ You Need to Complete the Following\.br\ Basic Metabolic Panel, Blood, Routine collect, 08/23/22, Order for future visit, Lab Collect, Type 2 diabetes mellitus with morbid obesity [facility] Consent for Treatmenton 08-12 Consent for Treatment [id number]#1.00 CD:127 Normal [facility] Family Medicine Office/Clini c Noteon 08-23-2022 Family Medicine Office/Clinic Note Normal [facility] Comment on above: Result Comment: Elec tronically Signed By: Mt GOODEN DO, FAAFP\.br\Date and Time Signed: 08/23/22 08:16 EST HIPAA Forms Officeon 023 HIPAA Forms Office [id number]#1.00 CD:127 Normal [facility] Legal Correspondence Officeo n 08-23-2022 Legal Correspondence Office [id number]#1.00 CD:127 Normal [facility] Legal Correspondence Office [id number]#1.00 CD:127 Normal [facility] Office/Clinic Note-Physician on 08-23-2022 Office/Clinic Note-Physician [id number]#1.00 CD:127 Normal [facility] Patient Correspondenceon Patient Correspondence [id number]#1.00 CD:127 Normal [facility] Patient Correspondence [id number]#1.00 CD:127 Normal [facility] Patient Correspondence [id number]#1.00 CD:127 Normal [facility] Patient Correspondence [id number]#1.00 CD:127 [facility] Patient Correspondence [id number]#1.00 CD:127 Normal [facility] Patient Educationon 08-23-19 Patient Education [facility] Patient History Officeon Patient History Office [id number]#1.00 CD:127 Normal [facility] Physician Referralon 023 Physician Referral [id number]#1.00C D:127 [facility] Physician Referralon 022 Physician Referral [id number]#1.0 0CD:127 [facility] Reminderson 08-02-2022 Reminders [facility] Family Medicine Office/Clini c Noteon 08-01-2022 Family Medicine Office/Clinic Note [facility] Comment on above: Result Comment: Elec tronically Signed By: Thao Duncan DO\Date and Time Signed: 08/01/22 20:01 EST Patient Educationon 08-01-20 Patient Education [facility] ANES POSTPROC EVALon 022 ANES POSTPROC EVAL HNO ID: [id number] Author: Vincenzo Laughlin MD Service: ? Author [...] June 08, 2022 TIME: 5:56 PM CSN: [id number] Normal [facility] ANES PRE-OPon 06-08-2022 ANES PRE-OP HNO ID: [id number] Author: Vincenzo Laughlin MD Service: ? Author Type: Anesthesiologist Type: Anesthesia Preprocedure Evaluation Filed: 06/08/2022 12:32 PM Note Text: ANESTHESIOLOGY DAY OF SURGERY NOTE : 1950 Procedure Information Date/Time: 06/08/22 1300 Scheduled providers: Katrina Urena MD; Vincenzo Laughlin MD; Sky Howe APRN.SAFETY ASSISTANT Procedure: EGD DIAGNOSTIC Location: Gastroenterology Estimated body [...] and consent discussed: yes. Patient / Responsible Alliance Party agrees to proceed: yes Patient / [...] June 08, 2022 TIME: 12:31 PM CSN: [id number] Normal [facility] EGD DIAGNOSTICon 06-08-2022 [facility] GLUCOSE, BLOOD (POC)on 06-08 Glucose [Mass/Vol] 129 mg/dL Abnormal 74 - 99 mg/dL [facility] Glucose [Mass/Vol] 95 mg/dL 74 - 99 mg/dL [facility] NURSING PROGon 06-08-2022 NURSING PROG HNO ID: [id number] Author: Leonor Osorio RN Service: Nursing Author [...] Electronically Signed By: Leonor Osorio RN Normal [facility] NURSING PROG HNO ID: [id number] Author: Marguerite Potts RN Service: Nursing Author [...] Marguerite Potts RN In Department: GASTROENTEROLOGY Normal [facility] SURGICAL PATHOLOGYon 022 ADDENDUM 1: Normal [facility] Comment on above: Order Comment: Speci men Type: TISSUE SPECIMENOrdering Facility: [facility] Address: [address] [place] [id number] Result Comment: H. p ylori immunostain performed on the stomach biopsy (part A) to evaluate the chronic gastritis is negative for organisms. Laboratory Developed Test (LDT) Disclaimer: Performance characteristics of immunohistochemical, immunofluorescent and chromogenic in-situ hybridization tests have been determined by the performing laboratory within [facility]???s Thao Caraballo [facility] Pathology and Laboratory Medicine [place] ([facility], [facility], [facility] or [facility]) in a manner consistent with CLIA requirements. [...] PM Performed By: #### S ####[facility]ORATORYCLIA [id number] [address] CASE REPORT Normal [facility] Comment on above: Order Comment: Jay mendoza Type: TISSUE SPECIMENOrdering Facility: [facility] Address: [address] [place] [address] Result Comment: Surg [facility] Pathology Report Case: [id number] Authorizing Provider: Katrina Urena MD Collected: 06/08/2022 12:47 PM Ordering Location: Gastroenterology Received: 06/08/2022 03:49 PM Pathologist: Sky Alvarenga MD Specimens: A) - STOMACH BIOPSY, gastric antrum B) - STOMACH BIOPSY, gastric antrum nodule C) - ESOPHAGUS BIOPSY, @41 D) - ESOPHAGUS BIOPSY, @39 E) - ESOPHAGUS BIOPSY, @38 Performed By: #### S ####[facility] LABORATORYCLIA [id number] [address] DIAGNOSIS COMMENT H. pylori immunostai n is pending. Normal [facility] Comment on above: Order Comment: Jay mendoza Type: TISSUE SPECIMENOrdering Facility: [facility] Address: [address] [place] [address] Performed By: #### S ####[facility]obiCREST LABORATORYCLIA [id number] [address] FINAL DIAGNOSIS Normal [facility] Comment on above: Order Comment: Jay mendoza Type: TISSUE SPECIMENOrdering Facility: [facility] Address: [address] [place] [address] Result Comment: A. S tomach, biopsy: - [...] negative for dysplasia. Performed By: #### S ####[facility] LABORATORYCLIA [id number] [address] [place] FINAL PERFORMING LAB Normal [facility] Comment on above: Order Comment: Speci men Type: TISSUE SPECIMENOrdering Facility: [facility] Address: [address] [place] [address] Result Comment: Diag nostic interpretation performed at [facility], [address] [facility], [place] [address] CLIA# [id number] Student Development Coordinator: Nellie Galvin M.D. Performed By: #### S ####[facility] LABORATORYCLIA [id number] [address] GROSS DESCRIPTION Normal [facility] Comment on above: Order Comment: Speci men Type: TISSUE SPECIMENOrdering Facility: [facility] Address: [address] [place] [address] Result Comment: A. S TOMACH BIOPSY Received [...] in one cassette. Gross examination performed at [facility], [address] [place] [address] JS 06/08/2022 7:53 PM Performed By: #### S ####[facility] [id number] [place] [address] [facility] JAS GONZALEZ ([id number]) 1950 M [facility] Date Time Provider Department 06/01/22 DEE MARIN [...] have family/friend present for procedure transport home:Patient/patient physician representative was told that if they do not have a responsible adult accompany them to their procedure; and remain in the endoscopy area until they are discharged; that their procedure cannot be done with sedation or anesthesia and may be cancelled. Any barriers to Patient learning: Patient/Patient Hearing Screener responded appropriately on phone. Type of instruction given: Verbal by telephone contact. Dee Marin RN Allergies As of Date: 06/01/2022 (Not on File) Date Reviewed: Never Reviewed Reason for Visit: Appointment Confirmation [3491] Problem List As Of Date: 06/01/2022 (None) Encounter Status:Closed by DEE MARIN on [facility]/01/22 [facility] JAS GONZALEZ ([id number]) 1950 M DEF Date Time Provider Department 04/26/22 MARGUERITE POTTS During your visit today, we recorded the following information about you: Marguerite Potts RN 04/26/2022 3:44 PM Signed Attempted to reach the patient at the contact number that they provided [phone] (home) . 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 physician representative they must have a responsible adult [...] Number to call with questions or concerns [phone] Number to call to cancel their procedure [phone] Marguerite Potts RN Allergies As of Date: 04/26/2022 (Not on File) Date Reviewed: Never Reviewed Reason for Visit: Appointment Confirmation [0805] Problem List As Of Date: 04/26/2022 (None) Encounter Status:Closed by MARGUERITE POTTS on 04/26/22 Normal [facility] CBC panel Auto (Bld)on 04-09 Erythrocyte distribution width (RBC) [Ratio] 13.3 % 11.5 - 15.0 % [facility] Hematocrit (Bld) [Volume fraction] 46.8 % 39.0 - 51.0 % [facility] Hemoglobin (Bld) [Mass/Vol] 15.1 g/dL 13.0 - 17.0 g/dL [facility] MCH (RBC) [Entitic mass] 30.7 pg 26.0 - 34.0 pg [facility] MCHC (RBC) [Mass/Vol] 32.3 g/dL 30.5 - 36.0 g/dL [facility] MCV (RBC) [Entitic vol] 95.1 fL 80.0 - 100.0 fL [facility] Nucleated RBC (Bld) [#/Vol] <0.01 k/uL [facility] Platelet mean volume (Bld) [Entitic vol] 10.8 fL 9.0 - 12.7 fL [facility] Platelets (Bld) [#/Vol] 165 10*3/uL 150 - 400 k/uL [facility] RBC (Bld) [#/Vol] 4.92 10*6/uL 4.20 - 6.00 m/uL [facility] WBC (Bld) [#/Vol] 8.48 10*3/uL 3.70 - 11.00 k/u L [facility] Erythrocyte distribution width (RBC) [Ratio] 13.3 % Normal 11.5-15.0 [facility] Comment on above: Order Comment: Speci men Type: BLOOD SPECIMENOrdering Facility: [facility] Address: [address] [place] [address] Performed By: #### 5 8410-2 ####[facility] [id number] [place] [address] [place] Hematocrit (Bld) [Volume fraction] 46.8 % Normal 39.0-51.0 [facility] Comment on above: Order Comment: Speci men Type: BLOOD SPECIMENOrdering Facility: [facility] Address: [address] [place] [address] Performed By: #### 5 8410-2 ####[facility] LABIA [id number] [place] [address] [place] Hemoglobin (Bld) [Mass/Vol] 15.1 g/dL Normal 13.0-17.0 [facility] Comment on above: Order Comment: Speci men Type: BLOOD SPECIMENOrdering Facility: [facility] Address: [address] [place], [place] [address] Performed By: #### 5 8410-2 ####[facility] [id number] [address] MCH (RBC) [Entitic mass] 30.7 pg Normal 26.0-34.0 [facility] Comment on above: Order Comment: Speci men Type: BLOOD SPECIMENOrdering Facility: [facility] Address: [address] [place], [place] [address] Performed By: #### 5 8410-2 ####[facility] [id number] [address] MCHC (RBC) [Mass/Vol] 32.3 g/dL Normal 30.5-36.0 [facility] Comment on above: Order Comment: Speci men Type: BLOOD SPECIMENOrdering Facility: [facility] Address: [address] [place], [place] [address] Performed By: #### 5 8410-2 ####[facility] [id number] [address] STATES [facility] MCV (RBC) [Entitic vol] 95.1 fL Normal 80.0-100.0 [facility] Comment on above: Order Comment: Speci men Type: BLOOD SPECIMENOrdering Facility: [facility] Address: [address] [place], [place] [address] Performed By: #### 5 8410-2 ####[facility] [id number] [address] Nucleated RBC (Bld) [#/Vol] 10*3/uL Normal <0.01 [facility] Comment on above: Order Comment: Speci men Type: BLOOD SPECIMENOrdering Facility: [facility] Address: [address] [place], [place] [address] Performed By: #### 5 8410-2 ####[facility] LABCLIA [id number] [place] [address] [place] Platelet mean volume (Bld) [Entitic vol] 10.8 fL Normal 9.0-12.7 [facility] Comment on above: Order Comment: Speci men Type: BLOOD SPECIMENOrdering Facility: [facility] Address: [address] [place], [place] [address] Performed By: #### 5 8410-2 ####[facility] LABIA [id number] [place] [address] [place] Platelets (Bld) [#/Vol] 165 10*3/uL Normal 150-400 [facility] Comment on above: Order Comment: Speci men Type: BLOOD SPECIMENOrdering Facility: [facility] Address: [address] [place], [place] [address] Performed By: #### 5 8410-2 ####[facility] LABIA [id number] [place] [address] [place] RBC (Bld) [#/Vol] 4.92 10*6/uL Normal 4.20-6.00 [facility] Comment on above: Order Comment: Speci men Type: BLOOD SPECIMENOrdering Facility: [facility] Address: [address] [place], [place] [address] Performed By: #### 5 8410-2 ####[facility] LABIA [id number] [place] [address] [place] WBC (Bld) [#/Vol] 8.48 10*3/uL Normal 3.70-11.00 [facility] Comment on above: Order Comment: Speci men Type: BLOOD SPECIMENOrdering Facility: [facility] Address: [address] [place], [place] [address] Performed By: #### 5 8410-2 ####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 Castella classification C 40, M 35. Biopsy collected. [...] Past Histories independently gathered by the clinical it desktop support specialist and the remaining scribed note accurately describes my personal service to the patient. Katrina Urena M.D. Office:[phone] Appointments [phone] (more content not included)... Normal [facility] Comprehensive metabolic 2000 panelon 04-09-2022 Albumin [Mass/Vol] 4.4 g/dL Normal 3.9-4.9 [facility] Comment on above: Order Comment: Speci men Type: BLOOD SPECIMENOrdering Facility: [facility] Address: [address] [place] [address] Performed By: #### 2 4323-8 ####[facility] LABCLIA [id number] [place] [address] [place] ALP [Catalytic activity/Vol] 70 U/L Normal 38-113 [facility] Comment on above: Order Comment: Speci men Type: BLOOD SPECIMENOrdering Facility: [facility] Address: [address] [address] Performed By: #### 2 4323-8 ####[facility] LABCLIA [id number] [place] [address] [place] ALT [Catalytic activity/Vol] 33 U/L Normal 10-54 [facility] Comment on above: Order Comment: Speci men Type: BLOOD SPECIMENOrdering Facility: [facility] Address: [address] Performed By: #### 2 4323-8 ####[facility] LABCLIA [id number] [place] [address] [place] Anion gap [Moles/Vol] 12 mmol/L Normal 9-18 [facility] Comment on above: Order Comment: Speci men Type: BLOOD SPECIMENOrdering Facility: [facility] Address: [address] [place], [place] [address] Performed By: #### 2 4323-8 ####[facility] LABCLIA [id number] [place] [address] [place] AST [Catalytic activity/Vol] 32 U/L Normal 14-40 [facility] Comment on above: Order Comment: Speci men Type: BLOOD SPECIMENOrdering Facility: [facility] Address: [address] [place], [place] [address] Performed By: #### 2 4323-8 ####[facility] LABCLIA [id number] [place] [address] [place] Bilirubin [Mass/Vol] 0.4 mg/dL Normal 0.2-1.3 [facility] Comment on above: Order Comment: Speci men Type: BLOOD SPECIMENOrdering Facility: [facility] Address: [address] [place], [place] [address] Performed By: #### 2 4323-8 ####[facility] LABCLIA [id number] [place] [address] [place] Calcium [Mass/Vol] 9.9 mg/dL Normal 8.5-10.2 [facility] Comment on above: Order Comment: Speci men Type: BLOOD SPECIMENOrdering Facility: [facility] Address: [address] [place] [address] Performed By: #### 2 4323-8 ####[facility] LABCLIA [id number] [place] [address] [place] Chloride [Moles/Vol] 100 mmol/L Normal 97-105 [facility] Comment on above: Order Comment: Speci men Type: BLOOD SPECIMENOrdering Facility: [facility] Address: [address] [place] [address] Performed By: #### 2 4323-8 ####[facility] LABCLIA [id number] [place] [address] [place] CO2 [Moles/Vol] 27 mmol/L Normal 22-30 [facility] Comment on above: Order Comment: Speci men Type: BLOOD SPECIMENOrdering Facility: [facility] Address: [address] [place] [address] Performed By: #### 2 4323-8 ####[facility] LABCLIA [id number] [address] STATES OF [facility] Creatinine [Mass/Vol] 0.92 mg/dL Normal 0.73-1.22 [facility] Comment on above: Order Comment: Speci men Type: BLOOD SPECIMENOrdering Facility: [facility] Address: [address] [place] [address] Performed By: #### 2 4323-8 ####[facility] LABCLIA [id number] [address] ESTIMATED GLOMERULAR FILTRATION RATE 87 mL/min/1.73m??? Normal >=60 [facility] Comment on above: Order Comment: Speci men Type: BLOOD SPECIMENOrdering Facility: [facility] Address: [address] [place] [address] Result Comment: Aminta mated Glomerular Filtration Rate [...] actual GFR. Performed By: #### 2 4323-8 ####[facility] LABCLIA [id number] [place] [address] [place] Glucose [Mass/Vol] 99 mg/dL Normal 74-99 [facility] Comment on above: Order Comment: Speci men Type: BLOOD SPECIMENOrdering Facility: [facility] Address: [address] [place] [address] Result Comment: The [place] Diabetes Association (ADA) provides guidance for cutoff [...] Standards of Medical Care in Diabetes 2016, [place] [employer]. Diabetes Care. 2016.39(Suppl 1). Performed By: #### 2 4323-8 ####[facility] LABCLIA [id number] [place] [address] [place] Potassium [Moles/Vol] 4.2 mmol/L Normal 3.7-5.1 [facility] Comment on above: Order Comment: Speci men Type: BLOOD SPECIMENOrdering Facility: [facility] Address: [address] [place] [address] Performed By: #### 2 4323-8 ####[facility] LABCLIA [id number] [place] [address] [place] Protein [Mass/Vol] 7.7 g/dL Normal 6.3-8.0 [facility] Comment on above: Order Comment: Speci men Type: BLOOD SPECIMENOrdering Facility: [facility] Address: [address] [place] [address] Performed By: #### 2 4323-8 ####[facility] LABIA [id number] [place] [address] [place] Sodium [Moles/Vol] 139 mmol/L Normal 136-144 [facility] Comment on above: Order Comment: Speci men Type: BLOOD SPECIMENOrdering Facility: [facility] Address: [address] [place], [place] [address] Performed By: #### 2 4323-8 ####[facility] LABCLIA [id number] [place] [address] [place] Urea nitrogen [Mass/Vol] 16 mg/dL Normal 9-24 [facility] Comment on above: Order Comment: Speci men Type: BLOOD SPECIMENOrdering Facility: [facility] Address: [address] [place] [address] Performed By: #### 2 4323-8 ####[facility] LABCLIA [id number] [address] [place] CHEMISTRYOrdered By: [facility] on 09-07-2021 HbA1c (Bld) [Mass fraction] 6.3 % High <=5.9% [facility] ChemAutoSS Vital Signs Date Time Vital Sign Value Performing Clinician Facility 07-17-2023 09:46-0500 Blood Pressure Location Basem Murillo [facility] 07-17-2023 09:46-0500 Diastolic blood pressure 72 mm[Hg] [facility] 07-17-2023 09:46-0500 Heart rate 81 /min [facility] 07-17-2023 09:46-0500 SaO2% (BldA) [Mass fraction] 95 % [facility] 07-17-2023 09:46-0500 Systolic blood pressure 102 mm[Hg] [facility] 11-28-2023 10:05-0500 Heart rate 83 /min d [facility] 07-09-2023 10:05-0500 SaO2% (BldA) [Mass fraction] 95 % Mhd [facility] 07-09-2023 10:05-0500 Body temperature 97.52 [degF] d [facility] 07-09-2023 10:04-0500 Diastolic blood pressure 69 mm[Hg] d [facility] 07-09-2023 10:04-0500 Mean blood pressure 84 mm[Hg] d [facility] 07-09-2023 10:04-0500 Systolic blood pressure 113 mm[Hg] d [facility] 07-09-2023 10:04-0500 Respiratory rate 20 /min d [facility] 06-26-2023 09:42-0500 Blood Pressure Location [facility] 06-26-2023 09:42-0500 Diastolic blood pressure 69 mm[Hg] [facility] 06-26-2023 09:42-0500 Heart rate 84 /min [facility] 06-26-2023 09:42-0500 SaO2% (BldA) [Mass fraction] 96 % [facility] 06-26-2023 09:42-0500 Systolic blood pressure 106 mm[Hg] [facility] 06-03-2023 13:35-0400 Blood Pressure Location [facility]m [facility] 06-03-2023 13:35-0400 Body temperature 98.42 [degF] [facility] 06-03-2023 13:35-0400 Diastolic blood pressure 62 mm[Hg] [facility] 06-03-2023 13:35-0400 Heart rate 78 /min [facility] 06-03-2023 13:35-0400 Respiratory rate 22 /min [facility] 06-03-2023 13:35-0400 SaO2% (BldA) [Mass fraction] 94 % Mt [facility] 06-03-2023 13:35-0400 Systolic blood pressure 104 mm[Hg] [facility] 04-09-2023 10:00-0400 Blood Pressure Location [facility] 04-09-2023 10:00-0400 Body temperature 98.42 [degF] [facility] 04-09-2023 10:00-0400 Diastolic blood pressure 68 mm[Hg] [facility] 04-09-[facility] 10:00-0400 Heart rate 90 /min [facility] 04-09-2023 10:00-0400 Mean blood pressure 80 mm[Hg] [facility] 04-09-2023 10:00-0400 Respiratory rate 22 /min [facility] 04-09-2023 10:00-0400 SaO2% (BldA) [Mass fraction] 93 % [facility] 04-09-2023 10:00-0400 Systolic blood pressure 104 mm[Hg] Mitch Amaro [facility] 03-13-2023 14:00-0400 Hourly Rounding [facility] D[facility] 03-13-2023 14:00-0400 Promise to Return Jordan Dianne [facility] 03-13-2023 04:00-0400 Diastolic blood pressure 65 mm[Hg] [facility] 03-13-2023 04:00-0400 Heart rate 85 /min [facility] 03-13-2023 04:00-0400 Hourly Rounding [facility] 03-13-2023 04:00-0400 Mean blood pressure 81 mm[Hg] [facility] 03-13-2023 04:00-0400 Promise to Return [facility] 03-13-2023 04:00-0400 SaO2% (BldA) [Mass fraction] 94 % [facility] 03-13-2023 04:00-0400 Systolic blood pressure 112 mm[Hg] [facility] 03-13-2023 03:44-0400 Diastolic blood pressure 63 mm[Hg] [facility] 03-13-2023 03:44-0400 Heart rate 82 /min [facility] 03-13-2023 03:44-0400 Mean blood pressure 78 mm[Hg] [facility] 03-13-2023 03:44-0400 SaO2% (BldA) [Mass fraction] 96 % [facility] 03-13-2023 03:44-0400 Systolic blood pressure 108 mm[Hg] [facility] 03-13-2023 03:00-0400 Diastolic blood pressure 67 mm[Hg] [facility] 03-13-2023 03:00-0400 Heart rate 81 /min [facility] 03-13-2023 03:00-0400 Hourly Rounding [facility] 03-13-2023 03:00-0400 Mean blood pressure 84 mm[Hg] [facility] 03-13-2023 03:00-0400 Promise to Return [facility] 03-13-2023 03:00-0400 Systolic blood pressure 118 mm[Hg] [facility] 03-13-2023 02:22-0400 Body temperature 97.52 [degF] [facility] 03-13-2023 02:22-0400 Heart rate 83 /min [facility] 03-13-2023 02:22-0400 Respiratory rate 16 /min [facility] 03-11-2023 10:00-0400 Blood Pressure Location Mhd Al[facility]raw[facility] 03-11-2023 10:00-0400 Body temperature 97.7 [degF] d [facility] 03-11-2023 10:00-0400 Diastolic blood pressure 65 mm[Hg] Mhd [facility] 03-11-2023 10:00-0400 Heart rate 93 /min Mhd [facility] 03-11-2023 10:00-0400 Mean blood pressure 77 mm[Hg] d [facility] 03-11-2023 10:00-0400 Respiratory rate 22 /min Mhd [facility] 03-11-2023 10:00-0400 SaO2% (BldA) [Mass fraction] 94 % d [facility] 03-11-2023 10:00-0400 Systolic blood pressure 100 mm[Hg] d [facility] 02-19-2023 16:33-0400 [facility] 02-19-2023 16:33-0400 [facility] 02-19-2023 16:00-0400 [facility]ly [facility]-19-2023 16:00-0400 [facility] 02-19-2023 15:29-0400 Heart rate 86 /min [facility] 02-19-2023 15:29-0400 SaO2% (BldA) [Mass fraction] 94 % [facility] 02-19-2023 15:28-0400 Diastolic blood pressure 86 mm[Hg] [facility] 02-19-2023 15:28-0400 Mean blood pressure 103 mm[Hg] [facility] 02-19-2023 15:28-0400 Systolic blood pressure 136 mm[Hg] [facility] 02-19-2023 15:28-0400 Body temperature 97.7 [degF] [facility] 02-19-2023 15:00-0400 Blood Pressure Location [facility] 02-19-2023 15:00-0400 Hourly Rounding [facility] 02-19-2023 15:00-0400 Promise [facility] Return [facility] 02-19-2023 15:00-0400 Respiratory rate 16 /min [facility] 02-19-2023 11:33-0400 Heart rate 83 /min [facility] 02-19-2023 11:33-0400 SaO2% (BldA) [Mass fraction] 93 % [facility] 02-19-2023 11:33-0400 Body temperature 98.42 [degF] [facility] 02-19-2023 11:33-0400 Diastolic blood pressure 92 mm[Hg] gloria [facility]23 11:33-0400 Mean blood pressure 109 mm[Hg] [facility] 02-19-2023 11:33-0400 Systolic blood pressure 144 mm[Hg] Kate [facility] 02-19-2023 08:18-0400 SaO2% (BldA) [Mass fraction] 93 % [facility] 02-19-2023 08:13-0400 Heart rate 56 /min gloria [facility] 02-19-2023 08:13-0400 Diastolic blood pressure 80 mm[Hg] [facility] 02-19-2023 08:13-0400 Mean blood pressure 94 mm[Hg] [facility] 02-19-2023 08:13-0400 Systolic blood pressure 121 mm[Hg] [facility] 02-19-2023 08:13-0400 Body temperature 97.52 [degF] [facility] 02-19-2023 08:00-0400 Respiratory rate 14 /min karld [facility] 02-18-2023 20:48-0400 gluc 173 mg/dL [facility] 02-18-2023 16:38-0400 Heart rate 65 /min [facility] 02-18-2023 15:30-0400 Mean blood pressure 101 mm[Hg] [facility] 02-18-2023 15:30-0400 Respiratory rate 24 /min [facility] 02-18-2023 15:21-0400 Mean blood pressure 92 mm[Hg] karld [facility] 02-18-2023 15:17-0400 Mean blood pressure 92 mm[Hg] karld [facility] 02-18-2023 08:50-0400 Heart rate 94 /min [facility] 02-18-2023 07:56-0400 Blood Pressure Location [facility] 02-18-2023 07:56-0400 Body temperature 98.6 [degF] [facility] 02-18-2023 07:56-0400 Diastolic blood pressure 62 mm[Hg] [facility] 02-18-2023 07:56-0400 Heart rate 91 /min [facility] 02-18-2023 07:56-0400 Respiratory rate 20 /min [facility] 02-18-2023 07:56-0400 SaO2% (BldA) [Mass fraction] 90 % [facility] 02-18-2023 07:56-0400 Systolic blood pressure 120 mm[Hg] [facility] 12-10-2022 10:02-0400 Blood Pressure Location [facility] 12-10-2022 10:02-0400 Body temperature 98.6 [degF] [facility] 12-10-2022 10:02-0400 Diastolic blood pressure 72 mm[Hg] [facility] 12-10-2022 10:02-0400 Heart rate 89 /min [facility] 12-10-2022 10:02-0400 Respiratory rate 18 /min [facility] 12-10-2022 10:02-0400 SaO2% (BldA) [Mass fraction] 97 % [facility] 12-10-2022 10:02-0400 Systolic blood pressure 136 mm[Hg] [facility] 12-05-2022 12:56-0400 Body weight 154.22 kg Juma Monk MD Work Phone: [facility] 12-05-2022 12:56-0400 Diastolic blood pressure 74 mm[Hg] Juma Monk MD Work Phone: [facility] 12-05-2022 12:56-0400 Heart rate 83 /min Juma Monk MD Work Phone: [facility] 12-05-2022 12:56-0400 Respiratory rate 18 /min Juma Monk MD Work Phone: [facility] 12-05-2022 12:56-0400 SaO2% (BldA) [Mass fraction] 95 % Juma Monk MD Work Phone: [facility] 12-05-2022 12:56-0400 Systolic blood pressure 118 mm[Hg] Juma Monk MD Work Phone: [facility] 12-02-2022 15:22-0400 Diastolic blood pressure 84 mm[Hg] [facility] 12-02-2022 15:22-0400 Heart rate 78 /min [facility] 12-02-2022 15:22-0400 Mean blood pressure 105 mm[Hg] [facility] 12-02-2022 15:22-0400 Respiratory rate 18 /min [facility] 12-02-2022 15:22-0400 SaO2% (BldA) [Mass fraction] 96 % [facility] 12-02-2022 15:22-0400 Systolic blood pressure 148 mm[Hg] [facility] 12-02-2022 12:08-0400 Body temperature 98.78 [degF] [facility] 12-02-2022 12:08-0400 Diastolic blood pressure 90 mm[Hg] [facility] 12-02-2022 12:08-0400 Heart rate 73 /min [facility] 12-02-2022 12:08-0400 Respiratory rate 18 /min [facility] 12-02-2022 12:08-0400 SaO2% (BldA) [Mass fraction] 95 % [facility] 12-02-2022 12:08-0400 Systolic blood pressure 152 mm[Hg] Arturo Alvarez [facility] 11-29-2022 09:53-0400 Diastolic blood pressure 66 mm[Hg] Pawan Laureano [facility] 11-29-2022 09:53-0400 Heart rate 85 /min Pawan Larsonumbar [facility] 11-29-2022 09:53-0400 Mean blood pressure 84 mm[Hg] Pawan Larsonumbar [facility] 11-29-2022 09:53-0400 Systolic blood pressure 121 mm[Hg] Pawan Lear [facility] 11-14-2022 13:23-0400 Body height 185.4 cm Juma Monk MD Work Phone: [facility] 11-14-2022 13:23-0400 Body weight 151.5 kg Juma Monk MD Work Phone: [facility] 11-14-2022 13:23-0400 Diastolic blood pressure 63 mm[Hg] Juma Monk MD Work Phone: [facility] 11-14-2022 13:23-0400 Heart rate 73 /min Juma Monk MD Work Phone: [facility] 11-14-2022 13:23-0400 Systolic blood pressure 121 mm[Hg] Juma Monk MD Work Phone: [facility] 11-08-2022 10:04-0400 Blood Pressure Location Mt [facility] 11-08-2022 10:04-0400 Body temperature 97.7 [degF] [facility] 11-08-2022 10:04-0400 Diastolic blood pressure 80 mm[Hg] [facility] 11-08-2022 10:04-0400 Heart rate 72 /min [facility] 11-08-2022 10:04-0400 Respiratory rate 18 /min [facility] 11-08-2022 10:04-0400 SaO2% (BldA) [Mass fraction] 96 % [facility] 11-08-2022 10:04-0400 Systolic blood pressure 130 mm[Hg] [facility] 10-24-2022 08:59-0400 Heart rate 63 /min Pawan Zumbar [facility] 10-24-2022 08:59-0400 SaO2% (BldA) [Mass fraction] 95 % Pawan Zumbar [facility] 10-24-2022 08:59-0400 Diastolic blood pressure 77 mm[Hg] Pawan Zumbar [facility] 10-24-2022 08:59-0400 Mean blood pressure 90 mm[Hg] Pawan Zumbar [facility] 10-24-2022 08:59-0400 Systolic blood pressure 118 mm[Hg] Pawan Zumbar [facility] 10-24-2022 08:48-0400 Diastolic blood pressure 108 mm[Hg] Pawan Zumbar [facility] 10-24-2022 08:48-0400 Heart rate 66 /min Pawan Zumbar [facility] 10-24-2022 08:48-0400 Respiratory rate 18 /min Pawan Zumbar [facility] 10-24-2022 08:48-0400 SaO2% (BldA) [Mass fraction] 92 % Pawan Zumbar [facility] 10-24-2022 08:48-0400 Systolic blood pressure 153 mm[Hg] Pawan Zumbar [facility] 10-24-2022 07:25-0400 Heart rate 72 /min Pawan Zumbar [facility] 10-24-2022 07:25-0400 SaO2% (BldA) [Mass fraction] 93 % Pawan Zumbar [facility] 10-24-2022 07:25-0400 Diastolic blood pressure 67 mm[Hg] Pawan Zumbar [facility] 10-24-2022 07:25-0400 Mean blood pressure 81 mm[Hg] Pawan Zumbar [facility] 10-24-2022 07:25-0400 Systolic blood pressure 109 mm[Hg] Pawan Zumbar [facility] 10-24-2022 07:25-0400 Body temperature 97.7 [degF] Pawan Zumbar [facility] 10-24-2022 07:25-0400 Respiratory rate 16 /min Pawan Zumbar [facility] 09-27-2022 09:21-0500 Diastolic blood pressure 69 mm[Hg] Pawan Zumbar [facility] 09-27-2022 09:21-0500 Heart rate 75 /min Pawan Zumbar [facility] 09-27-2022 09:21-0500 Mean blood pressure 83 mm[Hg] Pawan Zumbar [facility] 09-27-2022 09:21-0500 Systolic blood pressure 111 mm[Hg] Pawan Laureano [facility] 09-14-2022 10:47-0500 Blood Pressure Location [facility] 09-14-2022 10:47-0500 Body temperature 98.96 [degF] [facility] 09-14-2022 10:47-0500 Diastolic blood pressure 74 mm[Hg] [facility] 09-14-2022 10:47-0500 Heart rate 73 /min [facility] 09-14-2022 10:47-0500 SaO2% (BldA) [Mass fraction] 93 % [facility] 09-14-2022 10:47-0500 Systolic blood pressure 130 mm[Hg] [facility] 08-28-2022 10:42-0500 Blood Pressure Location [facility] 08-28-2022 10:42-0500 Body temperature 97.7 [degF] [facility] 08-28-2022 10:42-0500 Diastolic blood pressure 72 mm[Hg] [facility] 08-28-2022 10:42-0500 Heart rate 74 /min [facility] 08-28-2022 10:42-0500 SaO2% (BldA) [Mass fraction] 94 % [facility] 08-28-2022 10:42-0500 Systolic blood pressure 106 mm[Hg] [facility] 08-23-2022 14:33-0500 Diastolic blood pressure 73 mm[Hg] Pawan Zumbar [facility] 08-23-2022 14:33-0500 Heart rate 67 /min Pawan Zumbar [facility] 08-23-2022 14:33-0500 Mean blood pressure 88 mm[Hg] Pawan Zumbar [facility] 08-23-2022 14:33-0500 Respiratory rate 20 /min Pawan Zumbar [facility] 08-23-2022 14:33-0500 Systolic blood pressure 118 mm[Hg] Pawan Zumbar [facility] 08-23-2022 07:44-0500 Blood Pressure Location [facility] 08-23-2022 07:44-0500 Body temperature 97.88 [degF] [facility] 08-23-2022 07:44-0500 Diastolic blood pressure 78 mm[Hg] [facility] 08-23-2022 07:44-0500 Heart rate 78 /min [facility] 08-23-2022 07:44-0500 Respiratory rate 16 /min [facility] 08-23-2022 07:44-0500 SaO2% (BldA) [Mass fraction] 94 % [facility] 08-23-2022 07:44-0500 Systolic blood pressure 130 mm[Hg] [facility] 08-01-2022 17:02-0500 Blood Pressure Location [facility] 08-01-2022 17:02-0500 Body temperature 97.88 [degF] [facility] 08-01-2022 17:02-0500 Diastolic blood pressure 70 mm[Hg] [facility] 08-01-2022 17:02-0500 Heart rate 85 /min [facility] 08-01-2022 17:02-0500 SaO2% (BldA) [Mass fraction] 92 % [facility] 08-01-2022 17:02-0500 Systolic blood pressure 120 mm[Hg] [facility] 06-22-2022 12:00-0500 Diastolic blood pressure 70 mm[Hg] [facility] 06-22-2022 12:00-0500 Mean blood pressure 90 mm[Hg] [facility] 06-22-2022 12:00-0500 Systolic blood pressure 130 mm[Hg] [facility] 06-22-2022 11:52-0500 Blood Pressure Location [facility] 06-22-2022 11:52-0500 Body temperature 98.24 [degF] [facility] 06-22-2022 11:52-0500 Diastolic blood pressure 98 mm[Hg] [facility] 06-22-2022 11:52-0500 Heart rate 73 /min [facility] 06-22-2022 11:52-0500 SaO2% (BldA) [Mass fraction] 95 % [facility] 06-22-2022 11:52-0500 Systolic blood pressure 140 mm[Hg] [facility] 06-08-2022 13:40-0400 Diastolic blood pressure 76 mm[Hg] Katrina Urena MD Work Phone: [facility] 06-08-2022 13:40-0400 Heart rate 77 /min Katrina Urena MD Work Phone: [facility] 06-08-2022 13:40-0400 Respiratory rate 16 /min Katrina Urena MD Work Phone: [facility] 06-08-2022 13:40-0400 SaO2% (BldA) [Mass fraction] 94 % Katrina Urena MD Work Phone: [facility] 06-08-2022 13:40-0400 Systolic blood pressure 119 mm[Hg] Katrnia Urena MD Work Phone: [facility] 06-08-2022 13:03-0400 Body temperature 97.7 [degF] Katrina Urena MD Work Phone: [facility] 06-08-2022 12:10-0400 Body height 185.4 cm Katrina Urena MD Work Phone: [facility] 06-08-2022 12:10-0400 Body weight 144.24 kg Katrina Urena MD Work Phone: [facility] 02-22-2022 09:29-0400 Blood Pressure Location Gonzales DIAZL [facility] [place] 02-22-2022 09:29-0400 Diastolic blood pressure 76 mm[Hg] Gonzales NILL [facility] [place] 02-22-2022 09:29-0400 Heart rate 78 /min Gonzales NILL [facility] [place] 02-22-2022 09:29-0400 Respiratory rate 16 /min Gonzales NILL [facility] [place] 02-22-2022 09:29-0400 Systolic blood pressure 120 mm[Hg] Gonzales NILL [facility] [place] 02-20-2022 07:43-0400 Blood Pressure Location [facility] 02-20-2022 07:43-0400 Body temperature 97.88 [degF] [facility] 02-20-2022 07:43-0400 Diastolic blood pressure 72 mm[Hg] [facility] 02-20-2022 07:43-0400 Heart rate 81 /min [facility] 02-20-2022 07:43-0400 Respiratory rate 18 /min [facility] 02-20-2022 07:43-0400 SaO2% (BldA) [Mass fraction] 94 % [facility] 02-20-2022 07:43-0400 Systolic blood pressure 124 mm[Hg] [facility] 12-14-2021 15:06-0400 Blood Pressure Location [facility] 12-14-2021 15:06-0400 Body temperature 98.06 [degF] [facility] 12-14-2021 15:06-0400 Diastolic blood pressure 72 mm[Hg] [facility] 12-14-2021 15:06-0400 Heart rate 70 /min [facility] 12-14-2021 15:06-0400 Respiratory rate 18 /min [facility] 12-14-2021 15:06-0400 SaO2% (BldA) [Mass fraction] 93 % [facility] 12-14-2021 15:06-0400 Systolic blood pressure 122 mm[Hg] [facility] Encounters Encounter Date Encounter Type Care Provider Facility Start: 07-17-2023 End: 07-18-2023 ambulatory Basem Jose Alejandro. Murillo Facility:[facility] Start: 07-17-2023 End: 07-17-2023 Patient encounter procedure Basem Jose Alejandro. Murillo [facility] Start: 07-10-2023 End: 07-11-2023 ambulatory Basem G. Murillo Facility:[facility] Start: 07-09-2023 End: 07-10-2023 ambulatory Mhd Yaser Al-Marrawi Facility:[facility] Start: 07-09-2023 End: 07-09-2023 Patient encounter procedure Mhd Yaser Al-Marrawi [facility] Start: 07-08-2023 End: 07-09-2023 ambulatory Mhd Yaser Al-Marrawi Facility:[facility] Start: 06-26-2023 End: 06-27-2023 [address] [facility] Facility:[facility] Start: 06-26-2023 End: 06-26-2023 Patient encounter procedure Matty Fieldsd [facility] Start: 06-19-2023 End: 06-19-2023 ambulatory Kalli Copsey Facility:[facility] Start: 06-11-2023 End: 06-12-2023 ambulatory KALLI COPSEY Facility:[facility] Start: 06-11-2023 End: 06-11-2023 Patient encounter procedure KALLI DALTON [facility] Start: 06-03-2023 End: 06-04-2023 amb[address] [facility] A MAMTA Facility:[facility] Start: 06-03-2023 End: 06-03-2023 Patient encounter procedure Mt A MAMTA [facility] Start: 06-03-2023 End: 06-04-2023 ambulatory Mt A MAMTA Facility:[facility] Start: 06-03-2023 End: 06-03-2023 Patient encounter procedure Mt A MAMTA [facility] Start: 04-23-2023 End: 04-24-2023 ambulatory Osvaldo Garza Facility:[facility] Start: 04-23-2023 End: 04-23-2023 Patient encounter procedure Bryce Lieberman [facility] Start: 04-10-2023 End: 04-11-2023 ambulatory Mhd Yaser Al-Marrawi Facility:[facility] Start: 04-10-2023 End: 04-10-2023 Patient encounter procedure Mhd Yaser Al-Marraalfonzo [facility] Start: 04-09-2023 End: 04-10-2023 ambulatory Mhd Yaser Al-Piedadrawi Facility:[facility] Start: 04-09-2023 End: 04-09-2023 Patient encounter procedure Mitch Amaro [facility] Start: 04-05-2023 End: 04-06-2023 ambulatory Mhd Yaser Al-Marrawi Facility:[facility] Start: 04-05-2023 End: 04-05-2023 Patient encounter procedure Mhd Yaser Al-Marraalfonzo [facility] Start: 03-29-2023 End: 03-30-2023 ambulatory Matty Murillo Facility:[facility] Start: 03-29-2023 End: 03-29-2023 Patient encounter procedure Matty Murillo [facility] Start: 03-13-2023 End: 03-13-2023 Emergency department patient visit Jordan Dean Facility:[facility] Start: 03-13-2023 End: 03-13-2023 Emergency department patient visit Jordan SJase Dean [facility] Start: 03-11-2023 End: 03-12-2023 ambulatory Ahkarld Angelito Facility:[facility] Start: 03-11-2023 End: 03-11-2023 Patient encounter procedure Mhd Lizethser Al-Piedadraalfonzo [facility] Start: 03-01-2023 End: 03-02-2023 ambulatory Kevin LOBO Facility:[facility] Start: 02-20-2023 End: 03-22-2023 [address] [facility] GOODEN Facility:[id number] Start: 02-18-2023 End: 02-19-2023 Evaluation and management of inpatient Ahmad Moussawi Facility:[facility] Start: 02-18-2023 End: 02-19-2023 ambulatory [facility] A K[facility] Facility:[facility] Start: 02-18-2023 End: 02-19-2023 Evaluation and management of inpatient Kate Eaton [facility] Start: 02-18-2023 End: 02-18-2023 Patient encounter procedure Mt A K[facility] Start: 02-15-2023 End: 02-16-2023 ambulatory [facility] A KAPLE Facility:[facility] Start: 02-15-2023 End: 02-15-2023 Patient encounter procedure Mt A KAPLE [facility] Start: 01-25-2023 End: 01-26-2023 ambulatory MT A KAPLE Facility:[facility] Start: 01-25-2023 End: 01-25-2023 ambulatory MT A KAPLE Facility:[facility] Start: 01-23-2023 End: 01-24-2023 ambulatory [facility] Facility:[facility] Start: 12-17-2022 Telephone encounter Juma dupont MD Work Phone: Rheumatology Comment on above: Results Start: 12-10-2022 End: 12-11-2022 amb[address] [facility] Facility:[facility] Start: 12-10-2022 End: 12-10-2022 Patient encounter procedure Mt A K[facility] Start: 12-05-2022 End: 12-05-2022 ambulatory MT A KAPLE Facility:[facility] Start: 12-05-2022 End: 12-05-2022 Subsequent hospital visit by physician Shelbie [facility] Comment on above: Bilateral low [...] Rheumatology Comment on above: [facility] Start: 12-02-2022 End: 12-02-2022 Emergency department [facility] Facility:[facility] Start: 12-02-2022 End: 12-02-2022 Emergency department patient visit [facility] Start: 11-29-2022 End: 11-30-2022 amb[address] [facility]EN Facility:[facility] Start: 11-29-2022 End: 11-29-2022 Pain Management Pawan Laureano [facility] Start: 11-19-2022 End: 11-20-2022 ambulatory Mt GOODEN Facility:[facility] Start: 11-19-2022 End: 11-19-2022 Patient encounter procedure Mt GOODEN [facility] Start: 11-14-2022 End: 11-14-2022 ambulatory JUMA MONK Facility:[facility] Start: 11-14-2022 End: 11-14-2022 Office outpatient new 45 minutes Juma Monk MD Work Phone: Rheumatology Comment on above: Chronic right-sided low back pain with right-sided sciatica (Primary Dx) Start: 11-08-2022 End: 11-09-2022 ambulatory [facility] GOODEN Facility:[facility] Start: 11-08-2022 End: 11-08-2022 Patient encounter procedure Mt GOODEN [facility] Start: 10-24-2022 End: 10-25-2022 ambulatory Pawan Zumbar Facility:[facility] Start: 10-24-2022 End: 10-24-2022 Pain Management Pawan Zumbar [facility] Start: 09-27-2022 End: 09-28-2022 ambulatory [facility] A MAMTA Facility:[facility] Start: 09-27-2022 End: 09-27-2022 Pain Management Pawan Zumbar [facility] Start: 09-18-2022 End: 09-19-2022 ambulatory Mt GOODEN Facility:[facility] Start: 09-18-2022 End: 09-18-2022 Patient encounter procedure Mt GOODEN [facility] Start: 09-14-2022 End: 09-15-2022 ambulatory Thao Duncan Facility:[facility] Start: 09-14-2022 End: 09-14-2022 Patient encounter procedure Thao Duncan [facility] Start: 09-10-2022 End: 09-11-2022 ambulatory Pawan Laureano Facility:[facility] Start: 09-10-2022 End: 09-10-2022 Patient encounter procedure Pawan Lear [facility] Start: 09-04-2022 ambulatory Thao Duncan Facili ty:[facility] Start: 08-28-2022 End: 08-29-2022 ambulatory [facility] GOODEN Facility:[facility] Start: 08-28-2022 End: 08-28-2022 Patient encounter procedure Mt GOODEN [facility] Start: 08-28-2022 End: 08-28-2022 Well adult monitoring check done Mt GOODEN [facility] Start: 08-23-2022 End: 08-24-2022 ambulatory Thao Duncan Facility:[facility] Start: 08-23-2022 End: 08-23-2022 Pain Management Pawan Laureano [facility] Start: 08-23-2022 End: 08-24-2022 ambulatory Mt GOODEN Facility:[facility] Start: 08-23-2022 End: 08-23-2022 Patient encounter procedure Mt GOODEN [facility] Start: 08-01-2022 End: 08-02-2022 ambulatory Thao Duncan Facility:[facility] Start: 08-01-2022 End: 08-01-2022 Patient encounter procedure Thao Duncan [facility] Start: 06-22-2022 End: 06-22-2022 Patient encounter procedure Thao Duncan [facility] Start: 06-08-2022 End: 06-08-2022 ambulatory KATRINA URENA Facility:[facility] Start: 06-08-2022 End: 06-08-2022 Subsequent hospital visit by physician Katrina Urena MD Work Phone: Gastroenterology Comment on above: 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] Start: 04-26-2022 Telephone encounter Marguerite Potts RNmuseum assistant Comment on above: Appointment Confirma tion Start: 04-09-2022 End: 04-10-2022 ambulatory KATRINA URENA Facility:[facility] Start: 04-09-2022 End: 04-10-2022 ambulatory KATRINA URENA Facility:[facility] Start: 04-09-2022 End: 04-09-2022 Patient encounter procedure Katrina Urena MD Work Phone: Gastroenterology Comment on above: Mccarty's esophagus with dysplasia (Primary Dx) Start: 02-22-2022 End: 02-22-2022 Patient encounter procedure Gonzales ROBBINS [facility] [place] Start: 02-20-2022 End: 02-20-2022 Patient encounter procedure Mt GOODEN [facility] Start: 12-14-2021 End: 12-14-2021 Patient encounter procedure Mt GOODEN [facility] Start: 03-18-2021 End: 12-06-[address] GOODEN [facility] Procedures Date Procedure Procedure Detail Performing Clinician Start: 12-05-2022 Radiologic examination sacroiliac jnts <3 views Juma Monk MD Work Phone: Start: 10-24-2022 Epidural injection of lumbar spine using fluoroscopic guidance Pawan Laureano Comment on above: L5/S1 NOEMI-100% relief of pain in sacroi liac , but states pain above still. Start: 06-08-2022 Gluc bld gluc mntr dev cleared fda spec home use Sky Howe APRN.SAFETY ASSISTANT Work Phone: Start: 06-08-2022 Esophagogastroduodenoscopy transoral diagnostic Katrina Urena MD Work Phone: Start: 06-08-2022 Gluc bld gluc mntr dev cleared fda spec home use Sky Howe APRN.SAFETY ASSISTANT Work Phone: Start: 03-15-2022 Esophagogastroduodenoscopy gastric outlet [...] Author Start: 04-09-2025 DIABETES SCREEN DIABETES SCREEN [facility] Start: 09-05-2023 [facility] Start: 08-26-[facility]23 ambulatory Facility[facility] Start: 04-12-2023 Influenza vaccination INFLUENZA (#1) [facility] Start: 12-17-2022 End: 02-16-2023 C reactive protein [Mass/volume] in Serum or Plasma C-REACTIVE PROTEIN (CRP) Lab Routine Sacrococcygeal disorders, not elsewhere classified Expected: 12/17/2022, Expires: 02/16/2023 [facility] Work Phone: Comment on above: Expected: 12/17/2022 , Expires: 02/16/2023 Start: 12-17-2022 End: 02-16-2023 Erythrocyte sedimentation rate SED RATE WESTERGREN Lab Routine Sacrococcygeal disorders, not elsewhere classified Expected: 12/17/2022, Expires: 02/16/2023 [facility] Work Phone: Comment on above: Expected: 12/17/2022 , Expires: 02/16/2023 Start: 09-13-2022 COVID-19 VACCINE (5 - Moderna series) COVID-19 VACCINE (5 - Moderna series) [facility] Start: 08-12-2022 ADVANCE DIRECTIVE DISCUSSION ADVANCE DIRECTIVE DISCUSSION [facility] Start: 08-12-2022 DEPRESSION ASSESSMENT DEPRESSION ASS ESSMENT [facility] Start: 04-12-2022 Influenza vaccination INFLUENZA (#1) [facility] Start: 04-09-2022 End: 06-09-2022 Comprehensive metabolic 2000 panel - Serum or Plasma [facility] Work Phone: Comment on above: Expected: 04/09/2022 , Expires: 06/09/2022 Start: 10-12-2021 COVID-19 VACCINE (4 - Booster for Moderna series) COVID-19 VACCINE (4 - Booster for Moderna series) [facility] Start: 08-12-2021 ADVANCE DIRECTIVE DISCUSSION ADVANCE DIRECTIVE DISCUSSION [facility] Start: 08-12-2021 DEPRESSION ASSESSMENT DEPRESSION ASS ESSMENT [facility] Start: 01-27-2013 PNEUMOCOCCAL: 65+ (1 - PCV) PNEUMOCOCCAL: 65+ (1 - PCV) [facility] Start: 01-27-1998 SHINGRIX VACCINE (1 of 2) SHINGRIX VACCINE (1 of 2) [facility] Start: 01-27-1993 COLOGUARD (FIT-DNA) COLOGUARD (FIT-D NA) [facility] Start: 01-27-1993 Colonoscopy COLONOSCOPY [facility] Start: 01-27-1993 COLORECTAL CANCER SCREENING COLORECTAL CANCER SCREENING [facility] Start: 01-27-[address] COLONOGRAPHY [facility] Start: 01-27-1993 DIABETES SCREEN DIABETES SCREEN [facility] Start: 01-27-1993 FECAL OCCULT BLOOD FECAL OCCULT BLOO D [facility] Start: 01-27-1993 SIGMOIDOSCOPY SIGMOIDOSCOPY [facility] Start: 01-27-1983 LIPID SCREEN LIPID SCREEN [facility] Start: 01-27-1967 Urine microalbumin profile DTAP,TDAP,TD (1 - Tdap) [facility] Start: 01-27-1966 ANNUAL PCP TEAM MASTER PILOT CRISTO DISEASE VISIT ANNUAL PCP TEAM CHRONIC DISEASE VISIT [facility] Start: 01-27-1966 Hepatitis B surface antibody level LDL CHOLESTEROL [facility] Start: 01-27-1966 HEPATITIS C SCREENING HEPATITIS C SC SHEILA [facility] Start: 1960 Adult depression screening assessment DEPRESSION SCREENING [facility] Start: 01-27-1958 3 comp foot exam completed DIABETIC FOOT EXAM [facility] Start: 01-27-1958 Hepatitis B screening URINE AL BUMIN:CREATININE RATIO [facility] Start: 01-27-1958 Hepatitis C antibody , confirmatory test DILATED RETINAL EXAM [facility] Start: 01-27-1954 PNEUMOCOCCAL: 65+ (1 - PCV) PNEUMOCOCCAL: 65+ (1 - PCV) [facility] Start: 01-27-1953 Hemoglobin A1c/Hemoglobin.total in Blood HBA1C [facility] End: 04-09-2023 EGD DIAGNOSTIC EGD DIAGNOSTIC Endoscopy Routine Mccarty's esophagus with dysplasia 1 Occurrences starting 04/09/2022 until 04/09/2023 [facility] Work Phone: Comment on above: 1 Occurrences starti ng 04/09/2022 until 04/09/2023 End: 01-16-2024 Mri pelvis w/o contrast material MRI SACRUM/COCCYX WO IVCON Radiology Routine Sacrococcygeal disorders, not elsewhere classified 1 Occurrences starting 12/17/2022 until 01/16/2024 [facility] Work Phone: Comment on above: 1 Occurrences starti ng 12/17/2022 until 01/16/2024 End: 01-05-2024 Radiologic examination sacroiliac jnts <3 views XR SACROILIAC JOINTS 2V AP PELVIS/FERGUESON Radiology Routine Bilateral low back pain with sciatica, sciatica laterality unspecified, unspecified chronicity 1 Occurrences starting 12/05/2022 until 01/05/2024 [facility] Work Phone: Comment on above: 1 Occurrences starti ng 12/05/2022 until 01/05/2024 Radiologic examinati on sacroiliac jnts <3 views XR SACROILIAC JOINTS 2V AP PELVIS/FERGUESON Radiology Routine Bilateral low back pain with sciatica, sciatica laterality unspecified, unspecified chronicity 12/05/2022 1:53 PM EDT [facility] Work Phone: SURGICAL PATHOLOGY [facility] Work Phone: Comment on above: Release Upon Josuein g for 1 Occurrences starting 06/08/2022, 1 completed [facility] Immunizations Immunization Date Immunization Notes Care Provider Hyun rico 06-29-2023 canakinumab Mhfranky Leon [facility] Comment on above: Result Comment: RSV Vaccine [facility] 05-16-2023 influenza virus vacc ine, unspecified formulation Mt AMBERLYMARLENA [facility] 05-16-2023 SARS-CoV-2 (COVID-19 ) mRNA-1273 vaccine Mt GOODEN [facility] Comment on above: Result Comment: give n [facility] 05-13-2022 influenza virus vacc ine, unspecified formulation [facility] 05-13-2022 SARS-CoV-2 (COVID-19 ) mRNA-1273 vaccine [facility] 06-14-2021 COVID-19, mRNA, LNP- S, PF, 100 mcg or 50 mcg dose; Translations: [SARS-CoV-2 (COVID-19) mRNA-1273 vaccine] Mt GOODEN [facility] 05-19-2021 influenza virus vacc ine, unspecified formulation Mt GOODEN [facility] 01-09-2021 tetanus toxoid, redu hermilo diphtheria toxoid, and acellular pertussis vaccine, adsorbed; Translations: [Adacel (Tdap)] Mt GOODEN [facility] 10-19-2020 COVID-19, mRNA, LNP- S, PF, 100 mcg or 50 mcg dose; Translations: [Moderna COVID-19 Vaccine] Mt GOODEN [facility] Comment on above: Reason for Medicatio n: Other (see comment) 09-21-2020 COVID-19, mRNA, LNP- S, PF, 100 mcg or 50 mcg dose; Translations: [Moderna COVID-19 Vaccine] Mt GOODEN [facility] Comment on above: Reason for Medicatio n: Other (see comment) 05-17-2020 influenza virus vacc ine, unspecified formulation Mt GOODEN [facility] 06-11-2019 influenza virus vacc ine, live, attenuated, for intranasal use Mt GOODEN [facility] Comment on above: Result Comment: done at [facility] in [place] 06-01-2019 influenza virus vacc ine, unspecified formulation Mt GOODEN [facility] 05-29-2019 influenza virus vacc ine, unspecified formulation Mt GOODEN [facility] 07-22-2018 pneumococcal polysaccharide vaccine, 23 valent Mt GOODEN [facility] 07-22-2017 pneumococcal conjuga te vaccine, 13 valent Mt GOODEN [facility] 05-15-2016 influenza virus vacc ine, unspecified formulation Mt GOODEN [facility] 06-23-2014 tetanus toxoid, redu hermilo diphtheria toxoid, and acellular pertussis vaccine, adsorbed Mt GOODEN [facility] Payers Date Payer Category Payer Self-pay 2015 Medicare [id number] 2015 Private Health Insurance [employer] A ETNA MEDICARE SUPPLEMENT [id number] 2015-Present [phone] [address] [address] [place] [address] Indemnity [id number] 2013 Medicare MEDICARE MEDICAR E A AND B [id number] 2013-Present [phone] [place] [address] Medicare [id number] 2013 Medicare [id number] 1948 Unknown [id number] 2.16.840.1.214964.3.579 .2. 1948 Unknown [id number] 2.16.840.1.724621.3.579 .2.72 1948 Unknown [id number] 2.16.840.1.734181.3.579 .2. 1948 Unknown [id number] 2.16.840.1.622696.3.579 .2. 1948 Unknown [id number] 2.16.840.1.336291.3.579 .2 1948 Unknown [id number] 2.16.840.1.399167.3.579 .2. 1948 Unknown [id number] 2.16.840.1.884117.3.579 .2 1948 Unknown [id number] 2.16.840.1.267460.3.579 .2. 1948 Unknown [id number] 2.16.840.1.116746.3.579 .2. 1948 Unknown [id number] 2.16.840.1.217615.3.579 .2. 1948 Unknown [id number] 2.16.840.1.720442.3.579 .2. 1948 Unknown [id number] 2.16.840.1.515493.3.579 .2. 1948 Unknown [id number] 2.16.840.1.325219.3.579 .2 1948 Unknown [id number] 2.16.840.1.735742.3.579 .2. 1948 Unknown [id number] 2.16.840.1.783486.3.579 .2.727 1948 Unknown [id number] 2.16.840.1.869152.3.579 .2. 1948 Unknown [id number] 2.16.840.1.739855.3.579 .2. 1948 Unknown [id number] 2.16.840.1.596569.3.579 .2. 1948 Unknown [id number] 2.16.840.1.319450.3.579 .2. 1948 Unknown [id number] 2.16.840.1.172614.3.579 .2. 1948 Unknown [id number] 2.16.840.1.743670.3.579 .2. 1948 Unknown [id number] 2.16.840.1.260305.3.579 .2 1948 Unknown [id number] 2.16.840.1.891599.3.579 .2. 1948 Unknown [id number] 2.16.840.1.954806.3.579 .2 1948 Unknown [id number] 2.16.840.1.847236.3.579 .2. 1948 Unknown [id number] 2.16.840.1.191297.3.579 .2. 1948 Unknown [id number] 2.16.840.1.023506.3.579 .2. 1948 Unknown [id number] 2.16.840.1.344002.3.579 .2. 1948 Unknown [id number] 2.16.840.1.789459.3.579 .2. 1948 Unknown [id number] 2.16.840.1.665726.3.579 .2 1948 Unknown [id number] 2.16.840.1.109774.3.579 .2.727 1948 Unknown [id number] 2.16.840.1.840531.3.579 .2.727 1948 Unknown [id number] 2.16.840.1.253117.3.579 .2.727 1948 Unknown [id number] 2.16.840.1.044170.3.579 .2.727 1948 Unknown [id number] 2.16.840.1.606510.3.579 .2.72 1948 Unknown [id number] 2.16.840.1.449955.3.579 .2.727 1948 Unknown [id number] 2.16.840.1.285122.3.579 .2.727 1948 Unknown [id number] 2.16.840.1.314676.3.579 .2.72 Unknown [id number] 2.16.840.1.629310.3.579 .2.531 Social History Date Type Detail Facility Start: 09-18-2021 End: 06-03-2023 Tobacco smoking status Never smoked tobacco (finding) [facility] Comment on above: denies denies use Tobacco smoking status Never [facility] Comment on above: denies denies use Start: 09-09-2022 End: 12-05-2022 Sex Assigned At Male [facility] Tobacco smoking status TXIS Tobacco smoking consumption unknown [facility] Start: 1950 Sex Assigned At Not on file C [facility] Start: 03-30-2022 End: 04-10-2022 Exposure to SARS-CoV-2 (event) Not sure [facility] Work Phone: Start: 06-08-2022 Tobacco use and exposure Smokeless tobacco non-user [facility] Start: 06-08-2022 End: 12-05-2022 Alcohol intake Current drinker of alcohol (finding) [facility] Start: 06-08-2022 Alcohol Comment occasional [facility] Tobacco [facility] Comment on above: Denies Tobacco smoking status No Smoking Status Entered [facility] Start: 09-09-2022 End: 12-05-2022 History of Social function [facility] Functional Status Date Assessment Result Facility 07-17-2023 Functional Status No [facility] 06-26-2023 Functional Status No [facility] 06-03-2023 Functional Status N/A [facility] 03-13-2023 Functional Status N/A [facility] 02-18-2023 Functional Status No [facility] 02-18-2023 Functional Status N/A [facility] 12-10-2022 Functional Status N/A [facility] 12-02-2022 Functional Status N/A [facility] 11-29-2022 Functional Status N/A [facility] 11-08-2022 Functional Status N/A [facility] 09-27-2022 Functional Status N/A [facility] 09-14-2022 Functional Status N/A [facility] 08-28-2022 Functional Status N/A [facility] 08-23-2022 Functional Status N/A [facility] 08-23-2022 Functional Status N/A [facility] 08-01-2022 Functional Status N/A [facility] 06-22-2022 Functional Status N/A [facility] 02-22-2022 Functional Status N/A [facility] General Surgery [place] 02-20-2022 Functional Status N/A [facility] Clinical Notes 02-20-2022 to 06-03-2023 [...] drinks. ?Tomatoes and foods made with tomatoes. ?[place] or spicy foods. ?Chocolate and peppermint. Do not drink alcohol. General instructions Take mpqj-yxf-zumyqpi and prescription medicines only as told by [...] provider. Document Revised: 10/15/2020 Document Reviewed: 10/15/2020 [employer] Patient Education 2022 3 Four 5 Group. 06/03/2023 14:30:19 Edema, Zjix-dj-Lvec Edema Edema is when you have too [...] Follow these instructions at home: Medicines Take njnz-zqe-ewcibua and prescription medicines only as told by [...] provider. Document Revised: 04/02/2022 Document Reviewed: 04/02/2022 [employer] Patient Education 2022 3 Four 5 Group. Follow Up Care 03/01/2023 14:08:40 With:MAMTA LEE FAAFP, BEATRIZ Rebolledo, PED Address: [address] [place] [address]- When:Within 3 Month(s) [facility] 04-09-2023 Hospital Discharg e instructions Follow Up Care 04/09/2023 10:50:51 With:Azra Leon Address: [facility] [address] [place] [address]- [phone] Business (1) When: Unknown Comments:Continue Eliquis 5 mg twice daily long-term due to multiple comorbidities and history of 2 separate events of pulmonary emboli one of them is unprovoked.Follow CBCD, CMp and D dimer every 6 months. THis can be done and monitored by his PCP Dr Soriano as per patient wishes.RTC with us only as needed. [facility] 03-13-2023 Evaluation + Plan note Extrac jaun from: Title:ED Note Author:Jordan Dean DO Date :03/13/23 Cellulitis (L03.90: Cellulit is, unspecified) Orders: cephalexin, 500 mg = 1 cap(s), Cap, Oral, Once, Stop date 03/13/23 4:15:00 EDT, STAT, Start date 03/13/23 4:15:00 EDT, 03/13/23 4:15:00 EDT cephalexin, 500 mg = 1 cap(s), Oral, q6hr, X 7 day(s), # 28 cap(s), Refills(s) 0, Pharmacy: [facility]/pharmacy #[id number], 185.4, cm, 03/13/23 2:24:00 EDT, Height/Length [...] 09:45:00 AM Scheduled Provider: Location[facility] Appointment Type:[facility] Sleep Study Clinic Follow Up (FT) Appointment Date:04/09/2023 10:00:00 AM Scheduled Provider: [facility] Office Visit 30 (FT) Appointment Date:06/03/2023 01:20:00 PM Scheduled Provider:Mt GOODEN DO, FAAFP Location:[facility] [facility] Appointment Type: Open Appointment Date:08/26/2023 11:00:00 AM Scheduled Provider: Location:[facility] Appointment Type: Medicare Wellness Subsequent Diagnostic [...] Function Panel 09/10/22 * Lipid Panel 09/10/22 [facility]08-02-2023 Hospital Discharge instructions Patient Education 03/13/2023 04:42:12 [...] Follow these instructions at home: Medicines Take lkdq-yfp-qtrmiai and prescription medicines only as told by [...] such as antibiotic medicines or antihistamines. Take zxwe-slf-vkmrlvm and prescription medicines only as told by [...] provider. Document Revised: 05/10/2022 Document Reviewed: 05/10/2022 [employer] Patient Education 2022 3 Four 5 Group. 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 [facility]07-19-2023 Hospital Discharge instructions Follow Up Care 02/27/2023 09:23:46 With:Azra Leon Address: [facility] [address] [place] [address]- [phone] Business (1) When: Unknown Comments:Thrombophilia panel labs today.Continue Eliquis 5 mg twice daily long- term as long as there is no major bleeding events.Return in 1 month with CBC differential and CMP. [facility]07-18-2023 Hospital Discharge instructions Follow Up Care 02/26/2023 10:50:00 With:Chidi ESPINAL, [place], PUL, JERILYN Address: [address] [place] [address] [facility] (Heart [facility] [place]) [place] [address]- When: Unknown Comments:after his testing is completed [facility]07-11-2023 Hospital Discharge instructions Patient Education 02/19/2023 15:40:03 [...] Follow these instructions at home: Medicines Take dfpa-uol-tculuxg and prescription medicines only as told by [...] is important. Where to find more information [employer]: www.lung.org Centers for Disease Control [...] provider. Document Revised: 06/30/2021 Document Reviewed: 06/30/2021 [employer] Patient Education 2022 3 Four 5 Group. Follow Up Care 02/18/2023 08:49:44 With:[facility] Address:Unknown When: Unknown Comments:Paramedicine will contact you to set up a home visit. Thank you. With:Ralph Jennings Address: [address] [place] [address]- Business (1) When: Unknown Comments:Chronic Venous InsufPlease call Kike at Dr. Jennings's office in [place] to make a follow up appointment. The phone number is [phone]. Thank you. With:Matty Murillo Address: [address] [place] [address] [facility] ([facility] Vascular) [place] [address]- Business (1) When: Unknown Comments:needs PFTs and sleep studyThe central scheduling department at [facility] will need to schedule the PFT's. Please contact Dr. Murillo's offic eto set up a time for your sleep study. Thank you. With:Mitch Amaro Address: [facility] [address] [place] [address]. [place] [address]- When: Unknown Comments:2nd DVTDr. Amaro office will contact you to set up an appointment. If you do not hear from themin 3 days, then call [phone] and asked for Oncology/ Hematology department. Thank you. With:Mt GOODEN Address: [address] [place] [address]- Business (1) When:03/01/2023 13:00:00 Comments:Your follow up appointment is with Dr. Lobo. Thank you. [facility]07-11-2023 NoteFisher [facility] HospitalComment on above:Result Comment: Electronically Signed By: Angelito ESPINAL, Kate\.br\Date and Time Signed: 02/19/23 13:17 [id number] Evaluation + Plan noteExtracted from: Title:Discharge Note [...] (at bedtime), 3 refills Flonase 0.05 mg/inh [place], 2 spray(s), Nasal, Daily, 11 refills, Not [...] With When Contact Information Ralph Jennings [address] [place] [address]- Business (1) Additional Instructions: Chronic Venous Insuf Matty Murillo [address] [facility] [place] [address]- Business (1) Additional Instructions: needs PFTs and sleep study Mitch Amaro [facility] [address] [place] [address]- Additional Instructions: 2nd DVT Mt GOODEN In [address] [place] [address]- Business (1) Additional Instructions: Addendum by Angelito ESPINAL, [facility] ad on February 19, 2023 13:16:49 EDT [...] from: Title:Admission H & P Author:Angelito ESPINAL, [facility] Date:02/18/23 73-year-old male with a medi deidra [...] Date:03/01/2023 01:00:00 PM Scheduled Provider:Kevin LOBO MD Location:[facility] Appointment Type: Hospital Follow Up w/TCM Appointment Date:08/26/2023 11:00:00 AM Scheduled Provider: Location:[facility] Appointment Type: Medicare Wellness Subsequent Future [...] Lipid Panel 02/20/22 * Lipid Panel 09/10/22 [facility]07-10-2023 [facility]FishAdventist [facility] CenterComment on above:Result Comment: Electronically Signed By: Angelito ESPINAL, Kate\.br\Date and Time Signed: 02/18/23 13:49 [id number] Hospital Discharge instructions Patient Education 02/18/2023 08:47:22 [...] provider. Document Revised: 03/13/2021 Document Reviewed: 03/13/2021 [employer] Patient Education 2022 3 Four 5 Group. 02/18/2023 08:47:20 Heart Failure Exacerbation Heart Failure [...] Follow these instructions at home: Medicines Take aesu-rhf-dpgsrou and prescription medicines only as told by your health care provider. Do not stop taking your medicines or change the amount you take. If you are having problems or sideeffects from your medicines, talk to your health care provider. If you are having difficulty paying for your medicines, contact a social science teacher or your clinic. There are many [...] provider. Document Revised: 02/18/2021 Document Reviewed: 02/18/2021 [employer] Patient Education 2022 3 Four 5 Group. Follow Up Care 08/23/2022 08:23:28 With:MAMTA LEE FAAFP, [place], FAM, PED Address: [address] [place] [address]- When:Within 1 Month(s) [facility] 06-16-2023 NoteHNO ID: [id number] Author: RT Katty(R) Service: ? Author Type: [...] BY: RT Katty(R) January 25, 2023 8:35 [facility]05-08-2023 Miscellaneous Notes* Telephone Encounter - Juma [...] after the test results. [facility] Hospital Discharge instructions Patient Education 12/10/2022 10:35:03 Edema, Bdey-ob-Hqee Edema Edema is when you have too [...] Follow these instructions at home: Medicines Take gpvp-pfg-phzcvie and prescription medicines only as told by [...] provider. Document Revised: 04/02/2022 Document Reviewed: 04/02/2022 [employer] Patient Education 2022 3 Four 5 Group. Follow Up Care 11/26/2022 09:27:23 With:MAMTA LEE FAAFP, BEATRIZ Rebolledo, PED Address: [address], [facility] [place] [address]- When:Within 2 Month(s) [facility] 04-26-2023 NoteHNO ID: [id number] Author: RT Indu(R) Service: ? Author Type: [...] BY: RT Indu(R) December 05, 2022 1:51 [facility]04-26-2023 NoteHNO ID: [id number] Author: Juma Monk MD Service: ? Author Type: Physician Type: Progress Notes Filed: 12/05/2022 1:29 PM Note Text: Rheumatology Outpatient Clinic Date of Service: 12/05/2022 Patient: Jas Gonzalez Medical Record: [id number] Primary Care Physician: No primary care provider [...] 81 mg chewable tablet (more content not included)...[facility]04-26-2023 History of Present illness Narrative* Juma Monk MD - 12/05/2022 1:00 PM EDT Images from the original note were not included. Rheumatology Outpatient Clinic Date of Service: 12/05/2022 Patient: Jas Gonzalez Medical Record: [id number] Primary Care Physician: No primary care provider [...] Full ROM in flexion and extension. Full magistrate assistant strength. No swelling or synovitis along the [...] which included preparing to see the patient, wgza-md-aljo patient care, completing clinical documentation, obtaining and/or reviewing separately obtained history, performing a medically appropriate examination, and counseling and educating the patient/family/caregiver. Juma Monk MD, [facility] Rheumatology [facility] Miscellaneous Notes* Telephone Encounter - Angie Lara MA - 12/04/2022 12:44 PM EDT Received outside records for patient. Placed in scanned documents. Angie Lara MA documented in this encounterH[facility] Hospital Discharge instructions Patient Education 12/02/2022 15:14:40 [...] Follow these instructions at home: Medicines Take huab-zwz-igiywee and prescription medicines only as told by [...] such as antibiotic medicines or antihistamines. Take dhay-npn-mvpwhgs and prescription medicines only as told by [...] provider. Document Revised: 05/10/2022 Document Reviewed: 05/10/2022 [employer] Patient Education 2022 3 Four 5 Group. 12/02/2022 15:14:40 Gastrointestinal Bleeding Gastrointestinal Bleeding Gastrointestinal [...] home. Follow these instructions at home: Take giqx-gqr-guxcvkq and prescription medicines only as told by [...] on the cause of the bleeding. Take ldox-llh-qcqlrtz and prescription medicines only as told by [...] provider. Document Revised: 03/02/2022 Document Reviewed: 03/02/2022 [employer] Patient Education 2022 3 Four 5 Group. Follow Up Care 12/02/2022 12:04:07 With:Joycelyn CHERRY Address: [address] [place] [address] Business (1) When:12/05/2022 15:14:25 Comments:Follow-up for 2 episodes of bright red blood per rectum With:Mt GOODEN Address: [address], [place] [address]- Business (1) When:12/05/2022 15:14:09 Comments:Follow-up for evaluation [...] ifyou develop any new or worsening symptoms. [facility]04-23-2023 Evaluation + Plan noteExtracted from: Title:ED Note Author:Severo Mcnair PA-C e:12/02/22 Blood per rectum (K62.5: Hem orrhage of anus and rectum) Cellulitis (L03.90: Cellulitis, unspecified) Wound of buttock (S31.809A: Unspecified open wound of unspecified buttock, initial encounter) Orders: cephalexin, 500 mg = 1 cap(s), Oral, q8hr, # 30 cap(s), Refills(s) 0, Pharmacy: [facility]/pharmacy #[id number], 182, cm, 12/02/22 12:12:00 EDT, Height/Length Dosing, 150, kg, 12/02/22 12:12:00 EDT, Weight Dosing ABO/Rh ABO/Rh History Check Antibody Screen Automated Diff Basic Metabolic Panel Blood Bank ID# CBC w/ Auto Diff ECG 12 Lead Adult eGFR Hepatic Function Panel PT & PTT Stool Occult Blood Future Appointments Appointment Date:12/10/2022 10:00:00 AM Scheduled Provider:Mt GOODEN DO, FAAFP Location:[facility] Appointment Type: Open Appointment Date:02/18/2023 08:00:00 AM Scheduled Provider:Mt GOODEN DO, FAAFP Location:[facility] Appointment Type: Open Appointment Date:08/26/2023 11:00:00 AM Scheduled Provider: Location:[facility] Appointment Type: Medicare Wellness Subsequent Future [...] Lipid Panel 02/20/22 * Lipid Panel 09/10/22 [facility]04-20-2023 Evaluation + Plan noteExtracted from: Title:Clinical Document [...] 10:00:00 AM Scheduled Provider:Mt GOODEN DO, FAAFP Location:[facility] Appointment Type: Open Appointment Date:02/18/2023 08:00:00 AM Scheduled Provider:Mt GOODEN DO, FAAFP Location:[facility] Appointment Type: Open Appointment Date:08/26/2023 11:00:00 AM Scheduled Provider: Location:[facility] Appointment Type:FM Medicare Wellness Subsequent Future [...] Lipid Panel 02/20/22 * Lipid Panel 09/10/22 [facility]04-05-2023 NoteHNO ID: [id number] Author: Juma Monk MD Service: ? Author Type: Physician Type: Progress Notes Filed: 11/16/2022 9:45 AM Note Text: Rheumatology Outpatient Clinic Date of Service: 11/14/2022 Patient: Jas Gonzalez Medical Record: [id number] Primary Care Physician: No primary care provider [...] 54 U/L 33 ALKAL (more content not included)...[facility]04-05-2023 History of Present illness Narrative* Juma Monk MD - 11/14/2022 1:30 PM EDT Images from the original note were not included. Rheumatology Outpatient Clinic Date of Service: 11/14/2022 Patient: Jas Gonzalez Medical Record: [id number] Primary Care Physician: No primary care provider [...] Full ROM in flexion and extension. Full magistrate assistant strength. No swelling or synovitis along the [...] which included preparing to see the patient, yfgx-gu-ejou patient care, completing clinical documentation, obtaining and/or reviewing separately obtained history, performing a medically appropriate examination, and counseling and educating the patient/family/caregiver. Juma Monk MD, [facility] documented in this encounterHocking [facility]03-[facility] Hospital Discharge instructions Patient Education 11/08/2022 10:50:05 [...] activity plan? Your health care provider or licensed certified orthotist can help you make a plan for [...] and stress. Your health care provider or licensed certified orthotist can help you make a plan for [...] 10/18/2004 Document Revised: 02/20/2018 Document Reviewed: 01/07/2017 [employer] Patient Education 2020 3 Four 5 Group. Follow Up Care 10/19/2022 13:04:21 With:MAMTA LEE FAAFP, [place], BEATRIZ, PED Address: [address] [place] [address]- When:Within 3 Month(s) [facility] 03-15-2023 Note [id number]:127[facility] 09-10-2022 Hospital Discharge instructions Follow Up Care 09/10/2022 07:55:41 With:Thao Duncan DO, FAM, PED Address: [place] [address] When:1 month only if needed Comments:40 mins [facility] 01-17-2023 Hospital Discharge instructions Patient [...] that you work with a diet and placement specialist (dietitian) tomake a meal plan that is [...] care provider. Work with a counselor or inclusion paraeducator to identify strategies to manage stress and any emotional and social challenges. Questions to ask a health care provider Do I need to meet with a inclusion paraeducator? Do I need to meet with a dietitian? What number can I call if I have questions? When are the best times to check my blood glucose? Where to find more information: [place] Diabetes Association: diabetes.org Academy of Nutrition and Dietetics: www.eatright.org National [place] of Diabetes and Digestive and Kidney Diseases (NIH): www.niddk.nih.gov Summary A healthy meal plan will help you control your blood glucose and maintain a healthy lifestyle. Working with a diet and placement specialist (dietitian) can help you make a meal [...] 04/25/2006 Document Revised: 07/11/2018 Document Reviewed: 09/02/2017 [employer] Patient Education 2020 3 Four 5 Group. 08/28/2022 13:59:46 Exercising to Lose Weight Exercising [...] your health care provider or diet and placement specialist (dietitian). This may include: ?Eating fewer calories. [...] 08/31/2011 Document Revised: 08/11/2018 Document Reviewed: 08/11/2018 [employer] Patient Education 2020 3 Four 5 Group. 08/28/2022 13:59:43 BMI for Adults BMI for [...] height. This can be done either in [place] ([place] or metric measurements. Note that charts are available to help you find your BMI quickly and easily without having to do these calculations yourself. To calculate your BMI in [place] (U.[place] measurements, your health care provider will: [...] medical problems. BMI can be measured using [place] measurements or metric measurements. To interpret your [...] 04/09/2005 Document Revised: 07/11/2018 Document Reviewed: 06/11/2018 [employer] Patient Education 2019 3 Four 5 Group. [facility] 01-12-2023 Hospital Discharge instructions Patient [...] drinks. ?Tomatoes and foods made with tomatoes. ?[place] or spicy foods. ?Chocolate and peppermint. Do not drink alcohol. General instructions Take njdf-kss-pbrmckg and prescription medicines only as told by [...] 10/18/2004 Document Revised: 11/24/2018 Document Reviewed: 11/24/2018 [employer] Patient Education 2020 [employer] 08/23/2022 08:15:04 Budget-Friendly Healthy Eating Budget-Friendly [...] frozen fruits, and frozen vegetables. Avoid buying uvlkl-br-hfi foods, such as pre-cut fruits and vegetables [...] 04/01/2015 Document Revised: 07/30/2018 Document Reviewed: 07/30/2018 [employer] Patient Education 2020 3 Four 5 Group. Follow Up Care 02/20/2022 08:09:19 With:MAMTA LEE FAAFP, [place], BEATRIZ, PED Address: [address] [place] [address] [facility] [place] [address]- When:Within 6 Month(s) [facility] 12-21-2022 Hospital Discharge instructions Patient Education 08/01/2022 18:07:47 Heat Therapy, Ddvd-tb-Jkba Heat Therapy Heat therapy can help ease [...] 10/20/2012 Document Revised: 09/21/2019 Document Reviewed: 08/09/2018 [employer] Patient Education 2020 [employer] Follow Up Care 07/04/2022 17:02:06 With:Perla LEE, BEATRIZ Oneil, PED Address: [address] [place] [address], [facility] [place] [address] When:1 month only if needed Comments:40 mins [facility] 10-28-2022 NoteQ3 Patient Name: Jas Gonzalez Procedure Date: 06/08/2022 12:33 PM Date of : 1950 Admit Type: Outpatient Age: 72 Gender: Male Note Status: Finalized Attending MD: Katrina Urena MD Procedure: Upper GI endoscopy Indications: Mccarty's esophagus Providers: Katrina Urena MD Patient Profile: Refer to note in patient chart for documentation of history and physical. Referring Physician: Katrina Urena MD (Referring MD) Medicines: Monitored Anesthesia Care [...] changes classified as Mccarty's stage C3-M4 per Castella criteria. These changes involved the mucosa at the upper extent of the gastric folds (41 cm from the incisors) extending to the Z-line (37 cm from the incisors). [place]-colored mucosa was present. The maximum longitudinal extent [...] changes classified as Mccarty's stage C3-M4 per Castella criteria. Biopsied. - 4 cm hiatal hernia. [...] the patient. Procedure Code(s): --- Professional --- 96663 Diagnosis Code(s): --- Professional --- K22.70 K44.9 K29.00 K31.89 CPT copyright 2020 [employer]. All rights reserved. Attending Participation: I personally performed the entire procedure. Scope In: 12:44:02 PM Scope Out: 12:54:52 PM MD Katrina Whaley MD 06/08/2022 12:57:27 PM This report has been signed electronically by Katrina Urena MD Number of Addenda: 0 Note Initiated On: 06/08/2022 12:33 [facility]10-28-2022 Nurse Note* Leonor Osorio RN - [...] RN In Department: GASTROENTEROLOGY documented in this encounterHocking [facility]09-[facility]22 Miscellaneous Notes* Telephone Encounter - Marguerite Potts RN - 04/26/2022 3:44 PM EDT Attempted to reach the patient at the contact number that they provided [phone] (home) . 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 physician representative they must have a responsible adult [...] Number to call with questions or concerns [phone] Number to call to cancel their procedure [phone] Marguerite Potts RN documented in this encounterHocking Valley [facility] Hospital08-29-2022 NoteHNO ID: [id number] Author: Katrina Urena MD Service: ? Author [...] concerned about possible dysplasia sent specimen to [facility], still pending; patient denies pain or GERD symptoms. Past Medical History: Ongoing: Mccarty's esophagus with dysplasia BMI 40-44-9 BPH associated with nocturia Diabetes Mellitus Dietary Counseling GERD with hiatal hernia FPC current use of oral hypoglycemic drug Lumbar [...] Findings: The affected area was not inflamed. Castella classification C 40, M 35. Biopsy collected. [...] Past Histories independently gathered by the clinical it desktop support specialist and the remaining scribed note accurately describes my personal service to the patient. Katrina Urena M.D. 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 Castella classification C 40, M 35. Biopsy collected. [...] Past Histories independently gathered by the clinical it desktop support specialist and the remaining scribed note accurately describes my personal service to the patient. Katrina Urena M.D. Office:[phone] [facility] [phone] Fax [phone] documented in this encounterHocking Valley [facility]07-12-2022 Hospital Discharge instructions Patient Education 02/20/2022 08:08:00 [...] an appointment to see a diet and placement specialist (registered dietitian) to help you create a healthy eating plan. General instructions Check your blood glucose levels as told by your health care provider. Take dcoh-yei-mtmbjte and prescription medicines only as told by [...] 09/17/2006 Document Revised: 07/11/2018 Document Reviewed: 08/31/2016 [employer] Patient Education 2020 [employer] 02/20/2022 08:07:58 Type 2 Diabetes Mellitus, Self Care, Adult, Fong-ne-Sbnn Type 2 Diabetes Mellitus, Self Care, Adult [...] and canola oil. Meet with a food safety coordinator (dietitian). He or she can help you [...] for cuts, bruises, redness, blisters, or sores. [place] your teeth and gums two times a day. Floss one or more times a day. Go to the dentist one or more times every 6 months. Stay at a healthy weight. General instructions Take muqm-fox-tmisoob and prescription medicines only as told by your doctor. Share your diabetes care plan with: ?Your work or school. ?People you live with. Carry a card or wear jewelry that says you have diabetes. Keep all follow-up visits as told by your doctor. This is important. Questions to ask your doctor Do I need to meet with a inclusion paraeducator? Where can I find a support group for people with diabetes? Where to find more information To learn more about diabetes, visit: [place] Diabetes Association: www.diabetes.org [place] Association of Diabetes Educators: www.diabeteseducator.org Summary When [...] 11/19/2016 Document Revised: 01/19/2019 Document Reviewed: 08/31/2016 [employer] Patient Education 2020 3 Four 5 Group. 02/20/2022 08:07:54 Type 2 Diabetes Mellitus, Self [...] treat it right away. Always have a 03-mimqdzqas-kqyhsg carbohydrate snack with you to treat low [...] an appointment to see a diet and placement specialist (registered dietitian) to help you create an [...] your health care provider once every year. [place] your teeth and gums two times a day, and floss one or more times a day. Visit your dentist one or more times every 6 months. Maintain a healthy weight. General instructions Take yvqc-smk-mrzlleh and prescription medicines only as told by your health care provider. Share your diabetes management plan with people in your workplace, school, and household. Carry a medical alert card or wear medical alert jewelry. Keep all follow-up visits as told by your health care provider. This is important. Questions to ask your health care provider Do I need to meet with a inclusion paraeducator? Where can I find a support group for people with diabetes? Where to find more information For more information about diabetes, visit: [place] Diabetes Association (ADA): www.diabetes.org [place] Association of Diabetes Educators (AADE): www.diabeteseducator.org Summary [...] 11/19/2016 Document Revised: 01/19/2019 Document Reviewed: 08/31/2016 [employer] Patient Education 2020 3 Four 5 Group. Follow Up Care 08/22/2021 10:02:38 With:Mt GOODEN DO, FAAFP, BEATRIZ, PED Address: [place] [address]- When:Within 6 Month(s) [facility] Evaluation + Plan note Future Appointments Appointment Date:02/20/2022 07:40:00 AM Scheduled Provider:Mt GOODEN DO, FAAFP Location:[facility] Appointment Type:FM Open Appointment Date:09/13/2022 11:00:00 AM Scheduled Provider: Location:[facility] Appointment Type: Medicare Wellness Subsequent Future Scheduled Tests Laboratory* HgbA1c 02/20/21 * HgbA1c 05/23/21 * HgbA1c 08/23/21 * HgbA1c 11/21/21 * HgbA1c 12/13/20 * HgbA1c 01/21/21 * HgbA1c 04/23/21 * HgbA1c [facility]23[facility]21 [facility]ments Appointment Date:02/22/2022 09:40:00 AM Scheduled Provider:Gonzales ROBBINS MD Location:[facility] Appointment Type:[place] [address] Appointment Date:08/23/2022 07:40:00 AM Scheduled Provider:Mt GOODEN DO, FAAFP Location:[facility] Appointment Type: Open Appointment Date:09/13/2022 11:00:00 AM Scheduled Provider: Location:[facility] Appointment Type: Medicare Wellness Subsequent Future [...] Function Panel 02/20/22 * Lipid Panel 02/20/22 [facility] Evaluation + Plan note Future Appointments Appointment Date:03/15/2022 09:00:00 AM Scheduled Provider: Location:[facility] Appointment Type:Surgery FT Appointment Date:08/23/2022 07:40:00 AM Scheduled Provider:Mt GOODEN DO, FAAFP Location:[facility] Appointment Type: Open Appointment Date:09/13/2022 11:00:00 AM Scheduled Provider: Location:[facility] Appointment Type: Medicare Wellness Subsequent Future [...] Function Panel 02/20/22 * Lipid Panel 02/20/22 [facility] [place] Evaluation + Plan note Future Appointments Appointment Date:07/04/2022 03:40:00 PM Scheduled Provider:Thao Duncan DO Location:[facility] Appointment Type: Procedure Appointment Date:08/23/2022 07:40:00 AM Scheduled Provider:Mt GOODEN DO, FAAFP Location:[facility] Appointment Type: Open Appointment Date:09/13/2022 11:00:00 AM Scheduled Provider: Location:[facility] Appointment Type:FM Medicare Wellness Subsequent Future Scheduled Tests Laboratory* HgbA1c 08/23/21 * HgbA1c 11/21/21 * HgbA1c 02/20/22 * HgbA1c 05/23/22 * HgbA1c 08/23/22 * HgbA1c 11/21/22 * HgbA1c 07/23/21 * Microalbumin Level Urine 02/20/22 * PSA Screen, Total 02/20/22 * Basic Metabolic Panel 02/20/22 * CBC w/ Auto Diff 02/20/22 * Hepatic Function Panel 02/20/22 * Lipid Panel 02/20/22 [facility] Evaluation + Plan note Future Appointments Appointment Date:08/23/2022 07:40:00 AM Scheduled Provider:Mt GOODEN DO, FAAFP Location:[facility] Appointment Type: Open Appointment Date:09/13/2022 11:00:00 AM Scheduled Provider: Location:[facility] Appointment Type: Medicare Wellness Subsequent Future Scheduled Tests Laboratory* HgbA1c 08/23/21 * HgbA1c 11/21/21 * HgbA1c 02/20/22 * HgbA1c 05/23/22 * HgbA1c 08/23/22 * HgbA1c 11/21/22 * HgbA1c 07/23/21 * Microalbumin Level Urine 02/20/22 * PSA Screen, Total 02/20/22 * Basic Metabolic Panel 02/20/22 * CBC w/ Auto Diff 02/20/22 * Hepatic Function Panel 02/20/22 * Lipid Panel 02/20/22 [facility] Evaluation + Plan note Future Appointments Appointment Date:08/28/2022 11:00:00 AM Scheduled Provider: Location:[facility] Appointment Type: Medicare Wellness Subsequent Appointment Date:09/04/2022 03:00:00 PM Scheduled Provider:Thao Duncan DO Location:[facility] Appointment Type: Procedure Appointment Date:02/18/2023 08:00:00 AM Scheduled Provider:Mt GOODEN DO, FAAFP Location:[facility] Appointment Type: Open Future Scheduled Tests [...] Lipid Panel 02/20/22 * Lipid Panel 08/23/22 [facility] Evaluation + Plan note Future Appointments Appointment Date:09/04/2022 03:00:00 PM Scheduled Provider:Thao Duncan DO Location:[facility] Appointment Type:FM Procedure Appointment Date:02/18/2023 08:00:00 AM Scheduled Provider:Mt GOODEN DO, FAAFP Location:[facility] Appointment Type:FM Open Appointment Date:08/26/2023 11:00:00 AM Scheduled Provider: Location:[facility] Appointment Type:FM Medicare Wellness Subsequent Future [...] Lipid Panel 02/20/22 * Lipid Panel 08/23/22 [facility] Evaluation + Plan note Future Appointments Appointment Date:09/14/2022 10:40:00 AM Scheduled Provider:Thao Duncan DO Location:[facility] Appointment Type:FM Procedure Appointment Date:09/27/2022 09:15:00 AM Scheduled Provider:Pawan Laureano MD Location:[facility] Appointment Type:Pain Management - Follow Up (FT) Appointment Date:02/18/2023 08:00:00 AM Scheduled Provider:Mt GOODEN DO, FAAFP Location:[facility] Appointment Type:FM Open Appointment Date:08/26/2023 11:00:00 AM Scheduled Provider: Location:[facility] Appointment Type: Medicare Wellness Subsequent Future [...] Lipid Panel 02/20/22 * Lip[facility]10[facility]ments Appointment Date:09/18/2022 07:30:00 AM Scheduled Provider: [facility] Type:US Aorta Procedures (FT) Appointment Date:09/27/2022 09:15:00 AM Scheduled Provider:Pawan Laureano MD Location:[facility] Appointment Type:Pain Management - Follow Up (FT) Appointment Date:02/18/2023 08:00:00 AM Scheduled Provider:Mt GOODEN DO, FAAFP Location:[facility] Appointment Type: Open Appointment Date:08/26/2023 11:00:00 AM Scheduled Provider: Location:[facility] Appointment Type:FM Medicare Wellness Subsequent Future [...] Lipid Panel 09/10/22 Radiology* US Aorta 09/18/22 [facility] Evaluation + Plan note Future Appointments Appointment Date:09/27/2022 09:15:00 AM Scheduled Provider:Pawan Laureano MD Location:[facility] Appointment Type:Pain Management - Follow Up (FT) Appointment Date:02/18/2023 08:00:00 AM Scheduled Provider:Mt GOODEN DO, FAAFP Location:[facility] Appointment Type:FM Open Appointment Date:08/26/2023 11:00:00 AM Scheduled Provider: Location:[facility] Appointment Type: Medicare Wellness Subsequent Future [...] Lipid Panel 02/20/22 * Lipid [facility]10/[facility] Appointment Date:11/29/2022 09:45:00 AM Scheduled Provider:Pawan Laureano MD Location:[facility] Appointment Type:Pain Management - Follow Up (FT) Appointment Date:02/18/2023 08:00:00 AM Scheduled Provider:Mt GOODEN DO, FAAFP Location:[facility] Appointment Type:FM Open Appointment Date:08/26/2023 11:00:00 AM Scheduled Provider: Location:[facility] Appointment Type: Medicare Wellness Subsequent Future [...] Lipid Panel 02/20/22 * Lipid [facility]10[facility] Appointment Date:11/08/2022 10:00:00 AM Scheduled Provider:Mt GOODEN DO, FAAFP Location:[facility] Appointment Type: Open Appointment Date:11/29/2022 09:45:00 AM Scheduled Provider:Pawan Laureano MD Location:[facility] Appointment Type:Pain Management - Follow Up (FT) Appointment Date:02/18/2023 08:00:00 AM Scheduled Provider:Mt GOODEN DO, FAAFP Location:[facility] Appointment Type: Open Appointment Date:08/26/2023 11:00:00 AM Scheduled Provider: Location:[facility] Appointment Type:FM Medicare Wellness Subsequent Future [...] Lipid Panel 02/20/22 * Lipid [facility]10[facility] Appointment Date:11/29/2022 09:45:00 AM Scheduled Provider:Pawan Laureano MD Location:[facility] Appointment Type:Pain Management - Follow Up (FT) Appointment Date:02/18/2023 08:00:00 AM Scheduled Provider:Mt GOODEN DO, FAAFP Location:[facility] Appointment Type: Open Appointment Date:08/26/2023 11:00:00 AM Scheduled Provider: Location:[facility] Appointment Type: Medicare Wellness Subsequent Future [...] Lipid Panel 09/10/22 Radiology* US Aorta 11/08/22 [facility] Evaluation + Plan note Future Appointments Appointment Date:11/29/2022 09:45:00 AM Scheduled Provider:Pawan Laureano MD Location:[facility] Appointment Type:Pain Management - Follow Up (FT) Appointment Date:02/18/2023 08:00:00 AM Scheduled Provider:Mt GOODEN DO, FAAFP Location:[facility] Appointment Type: Open Appointment Date:08/26/2023 11:00:00 AM Scheduled Provider: Location:[facility] Appointment Type: Medicare Wellness Subsequent Future [...] Lipid Panel 02/20/22 * Lipid [facility]10[facility] Appointment Date:01/23/2023 09:15:00 AM Scheduled Provider:Joycelyn CHERRY MD Location:[facility] [place] [facility] Appointment Type:BAD New Patient Appointment Date:02/18/2023 08:00:00 AM Scheduled Provider:Mt GOODEN DO, FAAFP Location:[facility] Appointment Type: Open Appointment Date:08/26/2023 11:00:00 AM Scheduled Provider: Location:[facility] Appointment Type:FM Medicare Wellness Subsequent Future [...] Lipid Panel 02/20/22 * Lipid Panel 09/10/22 [facility] Primary Care Evaluation + Plan note Future Appointments Appointment Date:02/18/2023 08:00:00 AM Scheduled Provider:Mt GOODEN DO, FAAFP Location:[facility] Appointment Type: Open Appointment Date:02/20/2023 02:25:00 PM Scheduled Provider: Location:[facility] Appointment Type:Surgery FT Appointment Date:08/26/2023 11:00:00 AM Scheduled Provider: Location:[facility] Appointment Type:FM Medicare Wellness Subsequent Future [...] Lipid Panel 02/20/22 * [facility] Appointment Date:08/26/2023 11:00:00 AM Scheduled Provider: Location:[facility] Appointment Type: Medicare Wellness Subsequent Future [...] Lipid Panel 02/20/22 * Lipid Panel 09/10/22 [facility] Primary Care Evaluation + Plan note Future Appointments Appointment Date:03/29/2023 09:45:00 AM Scheduled Provider: [facility] Type:[facility] Sleep Study Clinic Follow Up (FT) Appointment Date:04/09/2023 10:00:00 AM Scheduled Provider: [facility] Type:ONC Office Visit 30 (FT) Appointment Date:06/03/2023 01:20:00 PM Scheduled Provider:Mt GOODEN DO, FAAFP Location:[facility] Appointment Type: Open Appointment Date:08/26/2023 11:00:00 AM Scheduled Provider: Location:[facility] Appointment Type: Medicare Wellness Subsequent Diagnostic [...] Function Panel 09/10/22 * Lipid [facility]10[facility] App[facility]ments Appointment Date:04/09/2023 10:00:00 AM Scheduled Provider: Location:.ONCOLOGY Appointment Type:ONC Office Visit 30 (FT) Appointment Date:06/03/2023 01:20:00 PM Scheduled Provider:Mt GOODEN DO, FAAFP Location:[facility] Appointment Type: Open Appointment Date:08/26/2023 11:00:00 AM Scheduled Provider: Location:[facility] Appointment Type:FM Medicare Wellness Subsequent Future Scheduled Tests Laboratory* HgbA1c 11/08/22 * HgbA1c 05/23/22 * HgbA1c 08/23/22 * HgbA1c 11/21/22 * HgbA1c 09/10/22 * HgbA1c 11/21/22 * HgbA1c 05/23/23 * CBC w/ Auto Diff 04/09/23 * Comprehensive Metabolic Panel 04/09/23 * Hepatic Function Panel 11/08/22 * Hepatic Function Panel 09/10/22 * Lipid Panel 09/10/22 [facility] Future App[facility]ments Appointment Date:04/09/2023 10:00:00 AM Scheduled Provider: [facility] Type:ONC Office Visit 30 (FT) Appointment Date:06/03/2023 01:20:00 PM Scheduled Provider:Mt GOODEN DO, FAAFP Location:[facility] Appointment Type: Open Appointment Date:08/26/2023 11:00:00 AM Scheduled Provider: Location:[facility] Appointment Type: Medicare Wellness Subsequent Future Scheduled Tests Laboratory* HgbA1c 11/08/22 * HgbA1c 05/23/22 * HgbA1c 08/23/22 * HgbA1c 11/21/22 * HgbA1c 09/10/22 * HgbA1c 11/21/22 * HgbA1c 05/23/23 * Hepatic Function Panel 11/08/22 * Hepatic Function Panel 09/10/22 * Lipid Panel 09/10/22 [facility] Future App[facility]ments Appointment Date:06/03/2023 01:20:00 PM Scheduled Provider:Mt GOODEN DO, FAAFP Location:[facility] Appointment Type: Open Appointment Date:07/09/2023 10:00:00 AM Scheduled Provider: [facility] Type:ONC Office Visit 30 (FT) Appointment Date:08/26/2023 11:00:00 AM Scheduled Provider: Location:[facility] Appointment Type: Medicare Wellness Subsequent Future [...] Function Panel 09/10/22 * Lipid Panel 09/10/22 [facility] App[facility]ments Appointment Date:06/03/2023 01:20:00 PM Scheduled Provider:Mt GOODEN DO, FAAFP Location:[facility] Appointment Type:FM Open Appointment Date:07/09/2023 10:00:00 AM Scheduled Provider: [facility] Type:ONC Office Visit 30 (FT) Appointment Date:08/26/2023 11:00:00 AM Scheduled Provider: Location:[facility] Appointment Type: Medicare Wellness Subsequent Future Scheduled Tests Laboratory* HgbA1c 11/08/22 * HgbA1c 05/23/22 * HgbA1c 08/23/22 * HgbA1c 11/21/22 * HgbA1c 09/10/22 * HgbA1c 11/21/22 * HgbA1c 05/23/23 * CBC w/ Auto Diff 07/10/23 * Comprehensive Metabolic Panel 07/10/23 * D-Dimer 07/11/23 * Hepatic Function Panel 11/08/22 * Hepatic Function Panel 09/10/22 * Lipid Panel 09/10/22 [facility] App[facility]ments Appointment Date:06/11/2023 09:00:00 AM Scheduled Provider: [facility] Appointment Type:US Duplex Procedures (FT) Appointment Date:07/09/2023 10:00:00 AM Scheduled Provider: [facility] Type:ONC Office Visit 30 (FT) Appointment Date:08/26/2023 11:00:00 AM Scheduled Provider: Location:[facility] Appointment Type: Medicare Wellness Subsequent Appointment Date:09/05/2023 09:40:00 AM Scheduled Provider:Mt GOODEN DO, FAAFP Location:[facility] Appointment Type: Open Future Scheduled Tests Laboratory* HgbA1c 11/08/22 * HgbA1c 05/23/22 * HgbA1c 08/23/22 * HgbA1c 11/21/22 * HgbA1c 09/10/22 * HgbA1c 11/21/22 * CBC w/ Auto Diff 07/10/23 * Comprehensive Metabolic Panel 07/10/23 * D-Dimer 07/11/23 * Hepatic Function Panel 09/10/22 Radiology* US LE Venous Duplex Insufficiency Bilat 06/11/23 * US LE Venous Duplex Bilateral 06/11/23 [facility] Primary Care Evaluation + Plan note Future Appointments Appointment Date:06/26/2023 09:45:00 AM Scheduled Provider:Matty Murillo MD Location:.[facility] Appointment Type:Pulmonary New Patient (FT) Appointment Date:07/09/2023 10:00:00 AM Scheduled Provider: [facility] Type:ONC Office Visit 30 (FT) Appointment Date:08/26/2023 11:00:00 AM Scheduled Provider: Location:[facility] Appointment Type:FM Medicare Wellness Subsequent Appointment Date:09/05/2023 09:40:00 AM Scheduled Provider:Mt GOODEN DO, FAAFP Location:[facility] Appointment Type: Open Future Scheduled Tests Laboratory* HgbA1c 11/08/22 * HgbA1c 05/23/22 * HgbA1c 08/23/22 * HgbA1c 11/21/22 * HgbA1c 09/10/22 * HgbA1c 11/21/22 * CBC w/ Auto Diff 07/10/23 * Comprehensive Metabolic Panel 07/10/23 * D-Dimer 07/11/23 * Hepatic Function Panel 09/10/22 [facility] Future App[facility]ments Appointment Date:07/09/2023 10:00:00 AM Scheduled Provider: [facility] Type:ONC Office Visit 30 (FT) Appointment Date:07/10/2023 09:30:00 AM Scheduled Provider: [facility] Appoint[facility] Type:PUL Pulmonary Function Test (FT) Appointment Date:07/10/2023 10:30:00 AM Scheduled Provider: [facility] Appointment Type:PUL Six Minute Walk Test (FT) Appointment Date:07/17/2023 09:45:00 AM Scheduled Provider:Matty Murillo MD Location:.[facility] Clinic Appointment Type:Pulmonary Follow Up (FT) Appointment Date:08/26/2023 11:00:00 AM Scheduled Provider: Location:[facility] Appointment Type:FM Medicare Wellness Subsequent Appointment Date:09/05/2023 09:40:00 AM Scheduled Provider:Mt GOODEN DO, FAAFP Location:[facility] Appointment Type: Open Future Scheduled Tests Laboratory* HgbA1c 11/08/22 * HgbA1c 08/23/22 * HgbA1c 11/21/22 * HgbA1c 09/10/22 * HgbA1c 11/21/22 * CBC w/ Auto Diff 07/10/23 * Comprehensive Metabolic Panel 07/10/23 * D-Dimer 07/11/23 * Hepatic Function Panel 09/10/22 [facility] Future Appointments Appointment Date:07/10/2023 09:30:00 AM Scheduled Provider: [facility] Type:PUL Pulmonary Function Test (FT) Appointment Date:07/10/2023 10:30:00 AM Scheduled Provider: [facility] Appointment Type:PUL Six Minute Walk Test (FT) Appointment Date:07/17/2023 09:45:00 AM Scheduled Provider:Matty Murillo MD [facility] Type:Pulmonary Follow Up (FT) Appointment Date:08/26/2023 11:00:00 AM Scheduled Provider: Location:[facility] Appointment Type: Medicare Wellness Subsequent Appointment Date:09/05/2023 09:40:00 AM Scheduled Provider:Mt GOODEN DO, FAAFP Location:[facility] Appointment Type: Open Appointment Date:01/07/2024 10:00:00 AM Scheduled Provider: [facility] Type:ONC Office Visit 30 (FT) Future Scheduled Tests Laboratory* HgbA1c 11/08/22 * HgbA1c 08/23/22 * HgbA1c 11/21/22 * HgbA1c 09/10/22 * HgbA1c 11/21/22 * CBC w/ Auto Diff 01/07/24 * Comprehensive Metabolic Panel 01/07/24 * D-Dimer 01/07/24 * Hepatic Function Panel 09/10/22 [facility] Future Appointments Appointment Date:08/26/2023 11:00:00 AM Scheduled Provider: Location:[facility] Appointment Type: Medicare Wellness Subsequent Appointment Date:09/05/2023 09:40:00 AM Scheduled Provider:Mt GOODEN DO, FAAFP Location:[facility] Appointment Type:FM Open Appointment Date:01/07/2024 10:00:00 AM Scheduled Provider: [facility] App[facility] Type:ONC Office Visit 30 (FT) Future Scheduled Tests Laboratory* HgbA1c 3/30/23 * HgbA1c 08/23/22 * HgbA1c 11/21/22 * HgbA1c 09/10/22 * HgbA1c 11/21/22 * CBC w/ Auto Diff 01/07/24 * Comprehensive Metabolic Panel 01/07/24 * D-Dimer 01/07/24 * Hepatic Function Panel 09/10/22 [facility] Diagnosis Mccarty's esophagus with dysplasia- Primary Mccarty's esophagus documented in this encounter [facility] note* Diagnosis Mccarty's esophagus with dysplasia Mccarty's esophagus documented in this encounter [facility] note* Diagnosis Chronic right-sided low back pain with right-sided sciatica- Primary documented in this encounter [facility] note* Diagnosis Bilateral low back pain with sciatica, sciatica laterality unspecified, unspecified chronicity- Primary documented in this encounter [facility] note* Diagnosis Sacrococcygeal disorders, not elsewhere classified- Primary documented in this encounter [facility] note* Diagnosis Bilateral low back pain with sciatica, sciatica laterality unspecified, unspecified chronicity [facility] N[facility] No data available for this section [facility] No data available for this section [facility] No data available for this section [facility] Primary Care Reason for referral (narrative)* Outpatient Procedure (Routine) - Authorized Specialty Diagnoses / Procedures Referred By Sourav arriaga Referred To Contact [facility] [place] Diagnoses Mccarty's esophagus with dysplasia Procedures EGD DIAGNOSTIC ESOPHAGOGASTRODUODENOSC OPY TRANSORAL DIAGNOSTIC Katrina Urena MD [address] [place] [address] [facility] [address] [address] Referral ID Status Reason Start Date Expiration Date Visits Requested Visits Authorized [id number] Authorized Auto-Generat ed Referral 04/09/2022 04/09/2023 1 1 [facility] for referral (narrative)* Outpatient Procedure (Routine) - Closed Specialty Diagnoses / Procedures Referred By Sourav arriaga Referred To Contact [facility] Diagnoses Mccarty's esophagus with dysplasia Procedures EGD DIAGNOSTIC ESOPHAGOGASTRODUODENOSC OPY TRANSORAL DIAGNOSTIC Katrina Urena MD [address] [place] [address] [facility] [place] [address] [place] [address] Referral ID Status Reason Start Date Expiration Date V isits Requested Visits Authorized [id number] Closed Auto-Generate d Referral 04/09/2022 04/09/2023 1 1 [facility] for referral (narrative) Referred by: Perla LEE, Thao Fisher [facility] Primary Care Reason for referral (narrative)* Diagnostic Procedure Only (Routine) - Closed Specialty Diagnoses / Procedures Referred By Sourav arriaga Referred To Contact XR IMAGING Diagnoses Bilateral low back pain with sciatica, sciatica laterality unspecified, unspecified chronicity Procedures XR SACROILIAC JOINTS 2V AP PELVIS/FERGUESON RADIOLOGIC EXAMINATION SACROILIAC JNTS <3 VIEWS Juma Monk MD [address] [place] [address] Xr Imaging Referral ID Status Reason Start Date Expiration Date V isits Requested Visits Authorized [id number] Closed Auto-Generate d Referral 12/05/2022 01/04/2024 1 1 [facility] for referral (narrative)* Diagnostic Procedure Only (Routine) - Closed Specialty Diagnoses / Procedures Referred By Sourav arriaga Referred To Contact XR IMAGING Diagnoses Bilateral low back pain with sciatica, sciatica laterality unspecified, unspecified chronicity Procedures XR SACROILIAC JOINTS 2V AP PELVIS/FERGUESON RADIOLOGIC EXAMINATION SACROILIAC JNTS <3 VIEWS Juma Monk MD [address] [id number] Xr Imaging Referral ID Status Reason Start Date Expiration Date V isits Requested Visits Authorized [id number] Closed Auto-Generate d Referral 12/05/2022 01/04/2024 1 1 [facility] for visit Narrative* Outpatient Procedure (Routine) - Closed Specialty Diagnoses / Procedures Referred By Contac t Referred To Contact [facility] Diagnoses Mccarty's esophagus with dysplasia Procedures EGD DIAGNOSTIC ESOPHAGOGASTRODUODENOSC OPY TRANSORAL DIAGNOSTIC Katrina Urena MD [address] [place] [address] [place] [address] Referral ID Status Reason Start Date Expiration Date V isits Requested Visits Authorized [id number] Closed Auto-Generate d Referral 04/09/2022 04/09/2023 1 1 [facility] for visit Narrative* Diagnostic Procedure Only (Routine) - Closed Specialty Diagnoses / Procedures Referred By Contac t Referred To Contact XR IMAGING Diagnoses Bilateral low back pain with sciatica, sciatica laterality unspecified, unspecified chronicity Procedures XR SACROILIAC JOINTS 2V AP PELVIS/FERGUESON RADIOLOGIC EXAMINATION SACROILIAC JNTS <3 VIEWS Juma Monk MD [address] [place] [address] Xr Imaging Referral ID Status Reason Start Date Expiration Date V isits Requested Visits Authorized [id number] Closed Auto-Generate d Referral 12/05/2022 01/04/2024 1 1 [facility] Reason for Referral Specialty Diagnoses / Procedures Referred By Contac t Referred To Contact MR IMAGING Diagnoses Sacrococcygeal disorders, not elsewhere classified Procedures MRI SACRUM/COCCYX WO IVCON MRI PELVIS W/O CONTRAST MATERIAL Juma Monk MD [address] [place] [address] Mr Imaging Referral ID Status Reason Start Date Expiration Date Visits Requested Visits Authorized [id number] Pending Review Auto-Generat ed Referral 12/17/2022 01/16/2024 [...] Care Team (unrecognized sect ion and content) 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 Relationship Specialty Start Date End Date Pcp, No PCP - General 02/24/22 09/11/22 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 Relationship Specialty Start Date End Date Pcp, No PCP - General 02/24/22 09/11/22 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 Relationship Specialty Start Date End Date Pcp, No PCP - General 02/24/22 09/11/22 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 Relationship Specialty Start Date End Date Mt Gooden DO [address] [place] [address] PCP - General Family Medicine 11/14/22 Thao Duncan(Historical), DO Referring Primary Care 08/07/22 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 Relationship Specialty Start Date End Date Mt Gooden DO [address] [place] [address] PCP - General Family Medicine 11/14/22 Thao Duncan(Historical), DO Referring Primary Care 08/07/22 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 Relationship Specialty Start Date End Date Mt Gooden DO [address] [place] [address] PCP - General Family Medicine 11/14/22 Thao Duncan(Historical), DO Referring Primary Care 08/07/22 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 Relationship Specialty Start Date End Date Mt Gooden DO [address] [place] [address] PCP - General Family Medicine 11/14/22 Thao Duncan(Historical), DO Referring Primary Care 08/07/22 Source Comments (unrecognize d section and content) In the event this informatio n is protected by the Federal Confidentiality of Alcohol and Drug Abuse Patient Records regulations: The Federal rules restrict any use of the information to criminally investigate or prosecute any alcohol or drug abuse patient.[facility] the event this information is protected by the Federal Confidentiality of Alcohol and Drug Abuse Patient Records regulations: The Federal rules restrict any use of the information to criminally investigate or prosecute any alcohol or drug abuse patient.[facility] the event this information is protected by the Federal Confidentiality of Alcohol and Drug Abuse Patient Records regulations: The Federal rules restrict any use of the information to criminally investigate or prosecute any alcohol or drug abuse patient.[facility] the event this information is protected by the Federal Confidentiality of Alcohol and Drug Abuse Patient Records regulations: The Federal rules restrict any use of the information to criminally investigate or prosecute any alcohol or drug abuse patient.[facility] the event this information is protected by the Federal Confidentiality of Alcohol and Drug Abuse Patient Records regulations: The Federal rules restrict any use of the information to criminally investigate or prosecute any alcohol or drug abuse patient.[facility] the event this information is protected by the Federal Confidentiality of Alcohol and Drug Abuse Patient Records regulations: The Federal rules restrict any use of the information to criminally investigate or prosecute any alcohol or drug abuse patient.[facility] the event this information is protected by the Federal Confidentiality of Alcohol and Drug Abuse Patient Records regulations: The Federal rules restrict any use of the information to criminally investigate or prosecute any alcohol or drug abuse patient.[facility] the event this information is protected by the Federal Confidentiality of Alcohol and Drug Abuse Patient Records regulations: The Federal rules restrict any use of the information to criminally investigate or prosecute any alcohol or drug abuse patient.[facility] Reason for Visit (unrecogniz ed section and content) Reason Comments Appointment Confirmation Reason Comments Consult Dx oa. Reason Comments Received Outside Medical Records Reason Comments Follow Up Denies any concerns Reason Comments Results (unrecognized sect ion and content) No Status Records FoundNo Status Records FoundNo Status Records Found INFORMATION SOURCE (unrecogn ized section and content) DATE CREATED AUTHOR 01/29/2023 [facility] DATE CREATED AUTHOR AUTHOR'S ORGANIZ ATION 06/27/2023 [facility] DATE CREATED AUTHOR AUTHOR'S ORGANIZ ATION 07/19/2023 [facility] FOR RECORDS PERTAINING TO PATIENTS WHO ARE [...] BE BASED ON THE PRIMARY CLINICAL RECORDS. [employer] provides no warranty or guarantee of the accuracy or completeness of information in this document.
[2023-08-09] MEDS: LIDOCAINE HCL 1% 100 MG/10 ML MDV INJ (07:56)
[2023-08-09] MEDS: 0.9 % SODIUM CHLORIDE 500 ML, LIDOCAINE HCL 20 ML, SODIUM BICARBONATE 10 MEQ INJ (07:57)
== END 2023-08-09 07:24 | disposition home or self-care (01) ==
LOC: VC 07:23
PROVIDERS: PCP Radiology Diagnostic Radiology; Visit Provider Radiology Diagnostic Radiology
DX: I83.813 Varicose veins of bilateral lower extremities with pain (principal)
CPT/HCPCS: 36478

== ENCOUNTER 2023-08-16 07:45 | Outpatient (OUT) | payer MEDICARE, OTHER, SELFPAY ==
--- NOTE | 2023-08-16 07:46 | VEIN_ITS ---
Patient Name: JOSE GONZALEZ MR#: [id number] : 1950 Exam Date: 08/16/2023 Ordering Doctor: DR LEXA CNUHA M.D. RADIOLOGY REPORT PROCEDURE: [facility] - OFFICE VISIT FOLLOW UP COMPARISON: [facility] EST [facility], 08/02/2023. [facility] EST [facility], 07/22/2023. PROGRESS NOTES: The patient reports no significant problems following intravenous laser ablation of the left small saphenous vein. The patient has his compression stocking. The patient did not require oral analgesics. The patient does have questions related to the healing process which I told him be slow with complete soft tissue healing in the 6-12 month range. The patient has tried exercise to best of his ability to Physical exam demonstrates continued healing of venous stasis ulcerations on the left leg with 2 small sores measuring 1 cm in along the posterior calf. Extensive hemosiderin staining. Moderate diffuse varicose veins. Review of the ultrasound performed the same day demonstrates occlusive thrombus extending throughout the treated left small saphenous vein with heat induced thrombus 1.7 cm from the saphenopopliteal junction. No deep vein thrombus. The patient expressed a desire to proceed with treatment of bilateral incompetent perforating veins with associated venous stasis ulcerations. VEIN/[facility] EST LMTD IMPRESSION: 1. Successful ablation of the left small saphenous vein 2. Persistent incompetent perforating veins. PLAN: Intravenous laser ablation incompetent perforating veins Nurse notes, history and physical were reviewed and confirmed, see attached forms. The nurse was present throughout the physical exam and consultation Dictated by: Lexa Cunha MD on 08/16/2023 at 08:49 Approved by: Lexa Cunha MD on 08/16/2023 at 09:04
--- NOTE | 2023-08-16 07:47 | VEIN_ITS ---
Patient Name: JOSE GONZALEZ MR#: [id number] : 1950 Exam Date: 08/16/2023 Ordering Doctor: DR LEXA CUNHA M.D. RADIOLOGY REPORT PROCEDURE: VC EXT VENOUS LT LIMITED COMPARISON: VC EXT VENOUS LT LIMITED, 07/22/2023. INDICATIONS: I83.813 Bilateral painful varicose veins TECHNIQUE: Lower extremity anderson scale and Duplex Doppler evaluation of the deep venous system from the inguinal ligament through the calf veins. FINDINGS: REGION: Left lower extremity. THROMBI: Negative for DVT. Heat induced thrombus visualized 1.7cm from the SPJ. The heat induced thrombus extends from pop fossa to distal calf. COMPRESSIBILITY: Non-compressible segments corresponding to thrombus FLOW: Areas of no flow corresponding to thrombus CONCLUSION: Post ablation occlusion of the left small saphenous vein with heat induced thrombus 1.7 cm from the saphenopopliteal junction Dictated by: Lexa Cunha MD on 08/16/2023 at 08:01 Approved by: Lexa Cunha MD on 08/16/2023 at 08:02
--- OUTSIDE RECORDS SUMMARY | 2023-08-16 07:48 | XMS_ITS | CCD ---
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 Name Role Phone Mt GOODEN Primary Care Physician Pcp, No Primary Care Provider UnavailThao Jones DO(Historical) Unavailable Unavailable Mt Gooden DO Primary Care Provider KATRINA URENA Referring Unavailable SKY HOWE Attending Unavailable KATRINA URENA Referring Unavailable KATRINA URENA Attending Unavailable MT GOODEN Primary Care Unavailable LACHO, JUMA Referring Unavailable MT GOODEN Primary Care Unavailable LACHO, JUMA Referring Unavailable TM GOODEN Primary Care Unavailable LACHO, JUMA Referring [...] sources) Azithromycin; Translations: [azithromycin] Drug Allergy 06-08-2022 [facility] (1 source) Azithromycin Drug Allergy 05-16-2023 [facility] Repository Medications Current Medications Medication Drug [...] BID, # 180 tab(s), Refills(s) 3, Pharmacy: [facility]/pharmacy #[id number], 185, cm, 04/09/23 10:08:00 EDT, Height/Length Dosing, 154.1, kg, 04/09/23 10:08:00 EDT, Weight Dosing Start Date: 04/09/23 Status: Ordered Start: 02-19-2023 Eliquis 5 mg o ral tablet 2 tabs (10 mg) BID x 7 days then 1 tab bid, Oral, BID, initial fill only, # 74 tab(s), Refills(s) 0, Pharmacy: [facility]/pharmacy #[id number], 182, cm, 02/18/23 9:01:00 EDT, [...] day(s), # 28 cap(s), Refills(s) 0, Pharmacy: [facility]/pharmacy #[id number], 185.4, cm, 03/13/23 2:24:00 EDT, Height/Length Dosing, 154.7, kg, 03/13/23 2:24:00 EDT, Weight Dosing Start Date: 03/13/23 Stop Date: 03/20/23 Status: Ordered Start: 12-02-2022 take 1 capsule by [facility] every eight hours cephalexin 500 mg Cap 500 mg = 1 cap(s), Oral, q8hr, # 30 cap(s), Refills(s) 0, Pharmacy: [facility]/pharmacy #[id number], 182, cm, 12/02/22 12:12:00 EDT, [...] day(s), # 10 tab(s), Refills(s) 0, Pharmacy: [facility]/pharmacy #[id number], 185, cm, 06/22/22 11:58:00 EST, Height/Length Dosing, 146.3, kg, 06/22/22 11:58:00 EST, Weight Dosing Start Date: 06/22/22 Stop Date: 07/02/22 Status: Ordered Start: 12-14-2021 take 1 tablet by nicolas th at bedtime cyclobenzaprine 10 mg Tab 10 mg = 1 tab(s), Oral, Bedtime, # 30 tab(s), Refills(s) 1, Pharmacy: [facility]/pharmacy #[id number], 185, cm, 12/14/21 15:11:00 EDT, Height/Length Dosing, 144.7, kg, 12/14/21 15:11:00 EDT, Weight Dosing Start Date: 12/14/21 Status: Ordered doxycycline hyclate 100 mg oral capsule (1 source) Tetracycline-class Drug Start: 08-22-2021 take 1 capsule by mouth twice daily doxycycline hyclate 100 mg Cap 100 mg = 1 cap(s), Oral, BID, # 20 cap(s), Refills(s) 0, Pharmacy: [facility]/pharmacy #[id number], 185, cm, 08/22/21 9:05:00 EST, Height/Length Dosing, 145.2, kg, 08/22/21 9:05:00 EST, Weight Dosing Start Date: 08/22/21 Status: Ordered famotidine 40 mg oral tablet (20 sources) Histamine-2 Receptor Antagonist Start: 06-03-2023 take 1 tablet by mouth once daily at bedtime famotidine 40 mg Tab 40 mg = 1 tab(s), Oral, Once a day (at bedtime), # 90 tab(s), Refills(s) 3, Pharmacy: [facility]/pharmacy #[id number], 182, cm, 06/03/23 13:45:00 EDT, Height/Length Dosing, 146.6, kg, 06/03/23 13:45:00 EDT, Weight Dosing Start Date: 06/03/23 Status: Ordered Start: 01-22-2022 take 1 tablet by nicolas th once daily at bedtime famotidine 40 mg Tab 40 mg = 1 tab(s), Oral, Once a day (at bedtime), # 90 tab(s), Refills(s) 3, Pharmacy: [facility]/pharmacy #[id number], 182, cm, 12/10/22 10:07:00 EDT, Height/Length Dosing, 154.8, kg, 12/10/22 10:07:00 EDT, Weight Dosing Start Date: 12/31/22 Status: Ordered Start: 12-08-2020 take 1 tablet by nicolas th once daily at bedtime famotidine 40 mg Tab 40 mg = 1 tab(s), Oral, Once a day (at bedtime), # 90 tab(s), Refills(s) 3, Pharmacy: [facility]/pharmacy #[id number], 185, cm, 10/21/20 9:58:00 EST, Height/Length Dosing, 148.8, kg, 10/21/20 9:57:00 EST, Weight Dosing Start Date: 12/08/20 Status: Ordered Comment on above: Take 40 mg by mouth daily at bedtime. fluticasone propionate 0.05 mg/actuat metered dose nasal spray (20 sources) Corticosteroid Start: 3 Flonase 0.05 mg/inh [place] 2 spray(s), Nasal, Daily, 16 gram, Refill(s) 11, each nostril, [facility]/pharmacy #[id number], 182, cm, 11/08/22 10:10:00 EDT, [...] Edema, # 90 tab(s), Refills(s) 3, Pharmacy: [facility]/pharmacy #[id number], 182, cm, 06/03/23 13:45:00 EDT, Height/Length Dosing, 146.6, kg, 06/03/23 13:45:00 EDT, Weight Dosing Start Date: 06/03/23 Status: Ordered Start: 12-18-2022 take 1 tablet by nicolas once daily as needed for edema Lasix 40 mg Tab 40 mg = 1 tab(s), Oral, Daily, PRN Edema, # 30 tab(s), Refills(s) 5, Pharmacy: [facility]/pharmacy #[id number], 182, cm, 12/10/22 10:07:00 EDT, Height/Length Dosing, 154.8, kg, 12/10/22 10:07:00 EDT, Weight Dosing Start Date: 12/18/22 Status: Ordered gabapentin 100 mg oral capsule (2 sources) Anti-epileptic Agent Start: 11-30-2020 take 1 capsule by mouth once daily gabapentin 100 mg Cap 100 mg = 1 cap(s), Oral, Daily, # 30 cap(s), Refills(s) 3, Pharmacy: [facility]/pharmacy #[id number], 185, cm, 10/21/20 9:58:00 EST, [...] Daily, # 90 tab(s), Refills(s) 3, Pharmacy: [facility]/pharmacy #[id number], 185, cm, 04/09/23 10:08:00 EDT, Height/Length Dosing, 154.1, kg, 04/09/23 10:08:00 EDT, Weight Dosing Start Date: 05/05/23 Status: Ordered Start: 10-14-2020 take 1 tablet by nicolas once daily lisinopril 10 mg Tab 10 mg = 1 tab(s), Oral, Daily, # 90 tab(s), Refills(s) 1, Pharmacy: [facility]/pharmacy #[id number], 185, cm, 03/15/22 8:30:00 EDT, Height/Length Dosing, 146, kg, 03/15/22 8:30:00 EDT, Weight Dosing Start Date: 04/20/22 Status: Ordered Comment on above: Take by mouth. metFORMIN hydrochloride 1000 mg oral tablet (20 sources) Biguanide Start: 12-31-2022 take 1 tablet by mouth twice daily metformin 1000 mg Tab 1,000 mg = 1 tab(s), Oral, BID, # 180 tab(s), Refills(s) 3, [id number] 182, cm, 12/10/22 10:07:00 EDT, Height/Length Dosing, 154.8, kg, 12/10/22 10:07:00 EDT, Weight Dosing Start Date: 12/31/22 Status: Ordered Start: 12-10-2022 take 1 tablet by nicolas th twice daily metformin 1000 mg Tab 1,000 mg = 1 tab(s), Oral, BID, # 180 tab(s), Refills(s) 3, [facility] 182, cm, 12/10/22 10:07:00 EDT, Height/Length [...] spasm, # 120 tab(s), Refills(s) 0, [id number] 182, cm, 03/01/23 13:14:00 EDT, Height/Length Dosing, 153.1, kg, 03/01/23 13:14:00 EDT, Weight Dosing Start Date: 03/04/23 Status: Ordered methylPREDNISolone 4 mg oral tablet (1 source) Corticosteroid Start: 2021 End: 2021 Medrol 4 mg Tab = 1 packet(s), Oral, As Directed, as directed on package labeling, X 6 day(s), # 21 tab(s), Refills(s) 2, Pharmacy: [facility]/pharmacy #[id number], 185, cm, 12/14/21 15:11:00 EDT, [...] Daily, # 90 cap(s), Refills(s) 3, Pharmacy: [facility]/pharmacy #6173, 182, cm, 11/08/22 10:10:00 EDT, Height/Length Dosing, 151.1, kg, 11/08/22 10:10:00 EDT, Weight Dosing Start Date: 11/15/22 Status: Ordered Comment on above: Take 40 mg by mouth once daily. omeprazole 40 mg Cap-DR (2 sources) Start: 2021 take 1 capsule by mouth once daily omeprazole 40 mg Cap-DR 40 mg = 1 cap(s), Oral, Daily, # 90 cap(s), Refills(s) 3, Pharmacy: [facility]/pharmacy #6173, 182.9, cm, 09/18/21 11:36:00 EST, [...] Daily, # 90 tab(s), Refills(s) 3, Pharmacy: [facility]/pharmacy #6173, 185, cm, 06/26/23 9:53:00 EST, Height/Length Dosing, 147, kg, 06/26/23 9:53:00 EST, Weight Dosing Start Date: 07/02/23 Status: Ordered Start: 06-03-2023 take 1 tablet by nicolas once daily pioglitazone 30 mg Tab 30 mg = 1 tab(s), Oral, Daily, # 90 tab(s), Refills(s) 3, Pharmacy: [facility]/pharmacy #6173, 182, cm, 06/03/23 13:45:00 EDT, Height/Length Dosing, 146.6, kg, 06/03/23 13:45:00 EDT, Weight Dosing Start Date: 06/03/23 Status: Ordered Start: 11-08-2022 take 1 tablet by [facility] once daily Actos 45 mg Tab 45 mg = 1 tab(s), Oral, Daily, # 90 tab(s), Refills(s) 3, Pharmacy: [facility]/pharmacy #6173, 182, cm, 11/08/22 10:10:00 EDT, Height/Length Dosing, 151.1, kg, 11/08/22 10:10:00 EDT, Weight Dosing Start Date: 11/08/22 Status: Ordered Start: 05-10-2022 take 1 tablet by [facility] once daily Actos 15 mg Tab 15 mg = 1 tab(s), Oral, Daily, # 90 tab(s), Refills(s) 3, [facility] 185, cm, 03/15/22 8:30:00 EDT, Height/Length Dosing, 146, kg, 03/15/22 8:30:00 EDT, Weight Dosing Start Date: 05/10/22 Status: Ordered Start: 07-22-2020 take 1 tablet by [facility] once daily Actos 15 mg Tab 15 mg = 1 tab(s), Oral, Daily, # 90 tab(s), Refills(s) 3, Pharmacy: [facility]/pharmacy #6173, 185, cm, 07/22/20 10:49:00 EST, Height/Length Dosing, 148.4, kg, 07/22/20 10:49:00 EST, Weight Dosing Start Date: 07/22/20 Status: Ordered polyethylene glycol 3350 636298 mg / potassium chloride 1480 mg / sodium bicarbonate 5720 mg / sodium chloride 88614 mg powder for oral solution (16 sources) Osmotic Laxative Start: 01-23-2023 NuLYTELY Mendez oral powder for reconstitution See Instructions, 1 EA, Refill(s) 0, See physician instructions prior to procedure., [facility]/pharmacy #[id number], 185, cm, 01/23/23 9:12:00 EDT, Height/Length Dosing, 152.1, kg, 01/23/23 9:12:00 EDT, Weight Dosing Start Date: 01/23/23 Status: Ordered predniSONE 20 mg oral tablet (1 source) Start: 06-22-2022 End: 06-29-2022 take 2 tablets by mouth once daily predniSONE 20 mg Tab 40 mg = 2 tab(s), Oral, Daily, X 7 day(s), # 14 tab(s), Refills(s) 0, Pharmacy: [facility]/pharmacy #[id number], 185, cm, 06/22/22 11:58:00 EST, [...] Daily, # 90 tab(s), Refills(s) 1, Pharmacy: [facility]/pharmacy #6173, 185, cm, 06/22/22 11:58:00 EST, Height/Length Dosing, 146.3, kg, 06/22/22 11:58:00 EST, Weight Dosing Start Date: 07/02/22 Status: Ordered Start: 05-03-2021 take 1 tablet by nicolas th once daily Januvia 100 mg Tab 100 mg = 1 tab(s), Oral, Daily, # 90 tab(s), Refills(s) 1, Pharmacy: [facility]/pharmacy #6173, 185, cm, 12/14/21 15:11:00 EDT, [...] Lasix, # 90 tab(s), Refills(s) 3, Pharmacy: [facility]/pharmacy #6173, 182, cm, 06/03/23 13:45:00 EDT, Height/Length Dosing, 146.6, kg, 06/03/23 13:45:00 EDT, Weight Dosing Start Date: 06/03/23 Status: Ordered Start: 12-18-2022 take 1 tablet by nicolas once daily as needed for edema potassium chloride 20 mEq ER Tab 20 mEq = 1 tab(s), Oral, Daily, PRN Edema, Take on the days he takes Lasix, # 30 tab(s), Refills(s) 5, Pharmacy: [facility]/pharmacy #6173, 182, cm, 12/10/22 10:07:00 EDT, [...] current use of oral hypoglycemic medication; Translations: [[facility]FP (current) use of oral hypoglycemic drugs] Onset: [...] Teri dahly Physician Orderon 07-18-2023 Physician Order [id number]#1.00T IFF Normal [facility] Consent for Treatmenton Consent for Treatment [id number]#1.00T IFF Normal [facility] Heart and Vascular Office/Cl inic Noteon 07-17-2023 Heart and Vascular Office/Clinic Note Normal [facility] Comment on above: Result Comment: Elec tronically Signed By: Chidi ESPINAL, Matty Mills\.br\Date and Time Signed: 07/17/23 10:18 EST Pulmonary Function Studieson 07-15-2023 Pulmonary Function Studies Normal [facility] Comment on above: Result Comment: Elec tronically Signed By: Chidi ESPINAL, Matty Mills\.br\Date and Time Signed: 07/15/23 09:48 EST Consent for Treatmenton 06-13 Consent for Treatment [id number]#1.00T IFF Normal [facility] Pulmonary Function Testson 09-09-2022 Pulmonary Function Tests [id number]#1.00T IFF Normal [facility] Respiratory Therapy Noteson 07-10-2023 Respiratory Therapy Notes [id number]#1.00T IFF Normal [facility] Consent for Treatmenton 06-13 Consent for Treatment [id number]#1.00T IFF Normal [facility] Oncology Noteon 07-09-2023 Oncology Note Normal [facility] Comment on above: Result Comment: Elec tronically Signed By: Charles MARTINEZ, Isabelle\.br\Date and Time Signed: 07/09/23 10:41 EST Oncology Progress Noteon Oncology Progress Note Normal [facility] Auto Diffon 07-08-2023 Basophils/100 WBC (Bld) 0.7 % Normal 0.0-2.0 [facility] Comment on above: Order Comment: Order Added by Discern Expert. Performed By: #### 2 797425, 6059652, 73485688, 3079131 ####[address] [address] Basophils/Leukocyte s Auto (Bld) [Pure # fraction] 0.1 E9/L Normal 0.0-0.2 [facility] Comment on above: Order Comment: Order Added by Discern Expert. Performed By: #### 2 549701, 3439003, 97793239, 5617198 ####[address] [address] Eosinophils/100 WBC (Bld) 1.8 % Normal 0.0-8.0 [facility] Comment on above: Order Comment: Order Added by Discern Expert. Performed By: #### 2 626645, 4158009, 27797592, 2584555 ####[address] [address] Eosinophils/Leukocy [place] Auto (Bld) [Pure # fraction] 0.1 E9/L Normal 0.0-0.5 [facility] Comment on above: Order Comment: Order Added by Discern Expert. Performed By: #### 2 927201, 4529425, 48934651, 9097808 ####[address] [address] Lymphocytes/100 WBC (Bld) 31.1 % Normal 14.0-50.0 [facility] Comment on above: Order Comment: Order Added by Discern Expert. Performed By: #### 2 506154, 8708256, 01894671, 9015151 ####[address] [address] Lymphocytes/Leukocy [place] Auto (Bld) [Pure # fraction] 2.5 E9/L Normal 1.0-4.0 [facility] Comment on above: Order Comment: Order Added by Discern Expert. Performed By: #### 2 376323, 6786425, 59424993, 0282008 ####[address] [address] Monocytes/100 WBC (Bld) 8.6 % Normal 4.0-14.0 [facility] Comment on above: Order Comment: Order Added by Discern Expert. Performed By: #### 2 851511, 7592052, 59326579, 0875506 ####[address] [place] [address] Monocytes/Leukocyte s Auto (Bld) [Pure # fraction] 0.7 E9/L Normal 0.2-1.0 [facility] Comment on above: Order Comment: Order Added by Discern Expert. Performed By: #### 2 788538, 2741791, 32966239, 3999893 ####[address] [address] Neutrophils/100 WBC (Bld) 57.8 % Normal 36.0-75.0 [facility] Comment on above: Order Comment: Order Added by Discern Expert. Performed By: #### 2 269614, 6320184, 73226067, 6980594 ####[address] [address] Neutrophils/Leukocy [place] Auto (Bld) [Pure # fraction] 4.6 E9/L Normal 2.0-7.5 [facility] Comment on above: Order Comment: Order Added by Discern Expert. Performed By: #### 2 541927, 3455091, 05264265, 4380042 ####[address] [address] CBC w/ Auto Diffon Erythrocyte distribution width (RBC) [Ratio] 15.1 % High 10.9-14.2 [facility] Comment on above: Performed By: #### 2 921779, 7833991, 02198135, 9571714 ####[address] [place] [address] Hematocrit (Bld) [Volume fraction] 40.3 % Normal 37.7-49.0 [facility] Comment on above: Performed By: #### 2 058479, 3130702, 03924708, 5076894 ####[address] [address] Hemoglobin (Bld) [Mass/Vol] 13.2 g/dL Low 13.5-17.5 [facility] Comment on above: Performed By: #### 2 073620, 4237255, 71813889, 0090383 ####[address] MCH (RBC) [Entitic mass] 31.1 pg Normal 27.0-34.0 [facility] Comment on above: Performed By: #### 2 512925, 6311811, 43806025, 3022728 ####[address] MCHC (RBC) [Mass/Vol] 32.8 g/dL Normal 31.4-36.0 [facility] Comment on above: Performed By: #### 2 710076, 0947845, 55923856, 4074555 ####[place] [address] MCV (RBC) [Entitic vol] 94.6 fL Normal 80.0-100.0 [facility] Comment on above: Performed By: #### 2 616134, 8611883, 36296570, 5911135 ####[address] [address] Platelet mean volume (Bld) [Entitic vol] 7.9 fL Normal 6.4-10.8 [facility] Comment on above: Performed By: #### 2 098092, 6638310, 80586112, 3090278 ####[address] [address] Platelets (Bld) [#/Vol] 195.0 E9/L Normal 150.0-500.0 [facility] Comment on above: Performed By: #### 2 070873, 3874434, 39646743, 1088247 ####[address] [address] RBC (Bld) [#/Vol] 4.3 E12/L Normal 4.3-5.9 [facility] Comment on above: Performed By: #### 2 342859, 6017798, 20711139, 0699451 ####[address] [place] [address] WBC corrected for nucl RBC Auto (Bld) [#/Vol] 7.9 E9/L Normal 4.0-11.0 [facility] Comment on above: Performed By: #### 2 588026, 3308767, 86738488, 4508341 ####[address] [address] CMPon 07-08-2023 Albumin [Mass/Vol] 3.8 g/dL Normal 3.3-5.0 [facility] Comment on above: Performed By: #### 2 892873, 4154306, 84986033, 0351910 ####[address] [address] Albumin/Globulin (S) [Mass conc ratio] 0.9 Low 1.1-2.2 [facility] Comment on above: Performed By: #### 2 936045, 3976695, 91467430, 1318198 ####[address] [address] ALP [Catalytic activity/Vol] 52 Int._Unit/L Normal 21-98 [facility] Comment on above: Performed By: #### 2 767402, 4401494, 74877678, 9419903 ####[address] [address] ALT No additional P-5'-P [Catalytic activity/Vol] 36 Int._Unit/L Normal 6-46 [facility] Comment on above: Performed By: #### 2 745747, 7193297, 56408260, 5805516 ####[address] [address] Anion gap [Moles/Vol] 14 mmol/L Normal 6-16 [facility] Comment on above: Performed By: #### 2 223753, 4065408, 77599735, 4205217 ####[facility] [address] [place] [address] AST [Catalytic activity/Vol] 49 Int._Unit/L High 5-43 [facility] Comment on above: Performed By: #### 2 945727, 3891866, 10149087, 9245353 ####[facility] [address] [place] [address] Bilirubin [Mass/Vol] 0.5 mg/dL Normal 0.0-1.1 [facility] Comment on above: Performed By: #### 2 876112, 7730289, 17700221, 9501788 ####[facility] [address] [place] [address] Calcium [Mass/Vol] 9.4 mg/dL Normal 8.9-11.1 [facility] Comment on above: Performed By: #### 2 748442, 3767947, 52713867, 5962306 ####[facility] [address] [place] [address] Chloride [Moles/Vol] 100 mmol/L Low 101-111 [facility] Comment on above: Performed By: #### 2 402693, 9313096, 23221056, 9863020 ####[facility] [address] [place] [address] CO2 [Moles/Vol] 28 mmol/L Normal 21-31 [facility] Comment on above: Performed By: #### 2 685437, 6112101, 66938844, 6726509 ####[facility] [address] [place] [address] Creatinine [Mass/Vol] 1.2 mg/dL Normal 0.5-1.3 [facility] Comment on above: Performed By: #### 2 939632, 1860976, 88326443, 9421952 ####[facility] [address] [place] [address] Globulin (S) [Mass/Vol] 4.1 g/dL High 1.4-4.0 [facility] Comment on above: Performed By: #### 2 828806, 9158417, 59718674, 6675595 ####[facility] [address] [place] [address] Glucose [Mass/Vol] 101 mg/dL Normal 55-199 [facility] Comment on above: Result Comment: If t his glucose result represents a fasting glucose, interpretation should refer to the following reference range: 55-99 mg/dL Performed By: #### 2 451290, 0060727, 20192535, 0920379 ####[facility] [address] [place] [address] Potassium [Moles/Vol] 4.7 mmol/L Normal 3.5-5.3 [facility] Comment on above: Performed By: #### 2 478970, 0273976, 31882562, 0275131 ####[facility] [address] [place] [address] Protein [Mass/Vol] 7.9 g/dL High 6.0-7.8 [facility] Comment on above: Performed By: #### 2 311290, 1559027, 96376092, 4170593 ####[facility] [address] [place] [address] Sodium [Moles/Vol] 137 mmol/L Normal 135-145 [facility] Comment on above: Performed By: #### 2 375642, 4121446, 95188829, 9596482 ####[facility] [address] [place] [address] Urea nitrogen [Mass/Vol] 20 mg/dL Normal 5-21 [facility] Comment on above: Performed By: #### 2 009997, 9658169, 65384143, 6180438 ####[facility] [address] [place] [address] Urea nitrogen/Creatinine [Mass ratio] 17 No Units Normal 10-20 [facility] Comment on above: Performed By: #### 2 200308, 7534433, 80769352, 1969471 ####[facility] [address] [place] [address] Consent for Treatmenton 06-13 Consent for Treatment [id number]#1.00T IFF Normal [facility] D-Dimeron 07-08-2023 Fibrin D-dimer FEU (PPP) [Mass/Vol] [id number] Normal 215-500 [facility] Comment on above: Result Comment: This assay [...] skin infectionsLiver cirrhosisPregnancy Performed By: #### 2 354829 ####[facility] [address] [place] [address] eGFRon 07-08-2023 GFR/1.73 sq M.predicted among non-blacks MDRD (S/P/Bld) [Vol rate/Area] 63 mL/min/1.73 m2 Normal >=59 [facility] Comment on above: Order Comment: Order added by Discern Expert. Result Comment: Instrumentation Technician cristo kidney disease could be indicated at eGFR's of less than 60 mL/min/1.73m2. Kidney failure is indicated at less than 15 mL/min/1.73m2. Performed By: #### 2 142662, 1786963, 12857109, 4429552 ####[facility] [address] [place] [address] Immunization Recordson 07-02 Immunization Records [id number]#1.00T IFF Normal [facility] Consent for Treatmenton 11-1 5-2023 Consent for Treatment [id number]#1.00T IFF Normal [facility] Heart and Vascular Office/Cl inic Noteon 06-26-2023 Heart and Vascular Office/Clinic Note Normal [facility] Comment on above: Result Comment: Elec tronically Signed By: Chidi ESPINAL, Matty Mello.br\Date and Time Signed: 06/26/23 10:23 EST Physician Orderon 06-26-2023 Physician Order [id number]#1.00 TIFF Normal [facility] Consultation Noteon 06-22-20 Consultation Note [id number]#1.00T IFF Normal [facility] Consultation Note [id number]#1.00T IFF Normal [facility] US LE Venous Duplex Insuffic iency Bilaton 06-12-2023 US LE Venous Duplex Insufficiency Bilat Normal [facility] Consent for Treatmenton 05-14 Consent for Treatment [id number]#1.00T IFF Normal [facility] RAD - MISCon 06-11-2023 RAD - MISC [id number] 023 [id number]#1.00 TIFF Normal [facility] Consultation Noteon 06-09-20 Consultation Note [id number]#1.00TI FF Normal [facility] Consultation Note [id number]#1.00T IFF Normal [facility] Physician Referralon 023 Physician Referral [id number]#1.00 TIFF Normal [facility] CHEMISTRYOrdered By: SYSTEM SYSTEM on 06-03-2023 Albumin [...] Consent for Treatmenton 05-13 Consent for Treatment [id number]#1.00T IFF Normal [facility] Family Medicine Office/Clini c Noteon 06-03-2023 [facility] Medicine Office/Clinic Note Normal [facility] Comment on above: Result Comment: Elec tronically Signed By: Mt GOODEN DO, FAAFP\Date and Time Signed: 06/03/23 14:43 EDT Hep Func Panelon 06-03-2023 Albumin [Mass/Vol] 3.7 g/dL Normal 3.3-5.0 [facility] Comment on above: Performed By: #### 2 032595, 6099414 ####[facility] [address] [place] [address] Albumin/Globulin (S) [Mass conc ratio] 0.9 Low 1.1-2.2 [facility] Comment on above: Performed By: #### 2 561743, 3633625 ####[facility] [address] [place] [address] ALP [Catalytic activity/Vol] 53 Int._Unit/L Normal 21-98 [facility] Comment on above: Performed By: #### 2 902515, 9167994 ####[facility] [address] [place] [address] ALT No additional P-5'-P [Catalytic activity/Vol] 25 Int._Unit/L Normal 6-46 [facility] Comment on above: Performed By: #### 2 118435, 3119844 ####[facility] [address] [place] [address] AST [Catalytic activity/Vol] 34 Int._Unit/L Normal 5-43 [facility] Comment on above: Performed By: #### 2 842541, 1818356 ####[facility] [address] [place] [address] Bilirubin [Mass/Vol] 0.4 mg/dL Normal 0.0-1.1 [facility] Comment on above: Performed By: #### 2 280119, 3153290 ####[facility] [address] [place] [address] Bilirubin.direct [Mass/Vol] 0.1 mg/dL Normal 0.1-0.4 [facility] Comment on above: Performed By: #### 2 785929, 4542950 ####[facility] [address] [place] [address] Bilirubin.indirect [Mass or moles/Vol] 0.3 mg/dL Normal 0.1-0.9 [facility] Comment on above: Performed By: #### 2 208022, 2940474 ####[facility] [address] [place] [address] Globulin (S) [Mass/Vol] 4.1 g/dL High 1.4-4.0 [facility] Comment on above: Performed By: #### 2 659251, 3733730 ####[address] [address] Protein [Mass/Vol] 7.8 g/dL Normal 6.0-7.8 [facility] Comment on above: Performed By: #### 2 528822, 6579217 ####[facility] [address] [place] [address] ErnV8sbq 06-03-2023 HbA1c (Bld) [Mass fraction] 7.2 % High <=5.9 [facility] Comment on above: Performed By: #### 7 [id number] ####[facility] [address] [place] [address] Lipid Panelon 06-03-2023 Cholesterol [Mass/Vol] 196 mg/dL Normal 120-200 [facility] Comment on above: Performed By: #### 2 547795, 3588384 ####[facility] [address] [place] [address] Cholesterol in HDL [Mass/Vol] 42 mg/dL Invalid Interpretation Code [facility] Comment on above: Result Comment: HDL > or equal to 60 mg/dL: Low cardiovascular riskHDL < 40 mg/dL : High cardiovascular risk Performed By: #### 2 546158, 5223914 ####[facility] [address] [place] [address] Cholesterol in LDL [Mass/Vol] 129 mg/dL Normal <=129 [facility] Comment on above: Performed By: #### 2 915794, 1361371 ####[facility] [address] [place] [address] Cholesterol in VLDL [Mass/Vol] 30 mg/dL Normal 7-40 [facility] Comment on above: Performed By: #### 2 870791, 3320665 ####[facility] [address] [place] [address] Triglyceride [Mass/Vol] 151 mg/dL High <=149 [facility] Comment on above: Performed By: #### 2 012030, 2171442 ####[facility] [address] [place] [address] Patient Educationon 06-03-20 Patient Education Normal [facility] Physician Orderon 05-30-2023 Physician Order [id number]#1.00T IFF [facility] Consultation Noteon 05-28-20 Consultation Note [id number]#1.00T IFF [facility] Consultation Noteon 05-27-20 Consultation Note [id number]#1.00T IFF Normal [facility] Immunization Recordson 05-22 Immunization Records [id number]#1.00 TIFF Normal [facility] Consultation Noteon 05-16-20 Consultation Note [id number]#1.00T IFF [facility] Consent for Procedure/Surger yon 04-23-2023 Consent for Procedure/Surgery [id number]#1.00 CD:127 Normal [facility] Consent for Treatmenton 04-12 Consent for Treatment [id number]#1.00C D:127 [facility] Consent to Photographon 04-12 Consent to Photograph [id number]#1.00 CD:127 [facility] Correspondence - Woundon Correspondence - Wound [id number]#1.00 CD:127 [facility] Correspondence - Wound [id number]#1.00 CD:127 [facility] Multi-Wound Charton 04-23-20 Multi-Wound Chart [id number]#1.00 CD:127 [facility] Nursing Assessment - Woundon 04-23-2023 Nursing Assessment - Wound [id number]#2.00 CD:127 [facility] Nursing Assessment - Wound [id number]#1.00 CD:127 [facility] Nursing Note - Woundon 04-23 Nursing Note - Wound [id number]#1.00 CD:127 [facility] Physician Orderon 04-23-2023 Physician Order [id number]#1.00 CD:127 [facility] Procedure - Woundon 04-23-20 Procedure - Wound [id number] [id number]#1.00 CD:127 [facility] Progress Note - Woundon 04-12 Progress Note - Wound [id number]#1.00 CD:127 [facility] Lab Miscellaneous-LCon 04-12 Lab Miscellaneous COMMENT Invalid Interpretation Code [facility] Comment on above: Result Comment: Test Ordered: 163253 Antithrombin ActivityAntithrombin Activity 109 % BNReference Range: 75-135Direct Xa inhibitor anticoagulants such as rivaroxaban, apixaban andedoxaban will lead to spuriously elevated antithrombin activitylevels possibly masking a deficiency.Performed at: [facility] [address] [place], [place] [id number] PhD Quinn Pinedo Performed By: #### 1 [id number] ####[facility] [address] [place] [address] COAGULATIONOrdered By: Claudia Caballero on 04-10-2023 Fibrin D-dimer FEU (PPP) [Mass/Vol] 552 ng/mL FEU Invalid Interpretation Code 215 - 500 ng/mL FEU [facility] Auto Coag Comment on above: Result Comment: Resu lts Called To Shabana Zendejas By JUDIE_ And Read Back For Confirmation On 04/10/2023 08:58:49 EDT_. Consent for Treatmenton 03-14 Consent for Treatment [id number]#1.00C D:127 Normal [facility] D-Dimeron 04-10-2023 Fibrin D-dimer FEU (PPP) [Mass/Vol] 552 [id number] Abnormal 215-500 [facility] Comment on above: Result Comment: Resu lts [...] skin infectionsLiver cirrhosisPregnancy Performed By: #### 2 901798 ####[facility] [address] [place] [address] Lab Miscellaneous-LCon 04-10 Test Code 231933 Invalid Interpretation Code [facility] Comment on above: Performed By: #### 1 [id number] ####[facility] [address] [place] [address] Test Name AT activ Invalid Interpretation Code [facility] Comment on above: Performed By: #### 1 [id number] ####[facility] [address] [place] [address] Reference Laboratory Testing Ordered By: Sylwia Lubin on 04-10-2023 Test Code 970013 Invalid Interpretation Code [facility] SendOutsSS Test Name AT activ Invalid Interpretation Code [facility] SendOutsSS Consent for Treatmenton 03-13 Consent for Treatment [id number]#1.00C D:127 Normal [facility] Oncology Noteon 04-09-2023 Oncology Note Normal [facility] Comment on above: Result Comment: Elec tronically Signed By: Charles MARTINEZ, Isabelle\.br\Date and Time Signed: 04/09/23 11:08 EDT Oncology Progress Noteon Oncology Progress Note Normal [facility] Auto Diffon 04-05-2023 Basophils/100 WBC (Bld) 0.7 % Normal 0.0-2.0 [facility] Comment on above: Order Comment: Order Added by Discern Expert. Performed By: #### 2 462129, 3494627, 9337312, 93383556 ####[facility] [address] [place] [address] Basophils/Leukocyte s Auto (Bld) [Pure # fraction] 0.0 E9/L Normal 0.0-0.2 [facility] Comment on above: Order Comment: Order Added by Discern Expert. Performed By: #### 2 737350, 3322600, 3282585, 55376728 ####[facility] [address] [place] [address] Eosinophils/100 WBC (Bld) 3.3 % Normal 0.0-8.0 [facility] Comment on above: Order Comment: Order Added by Discern Expert. Performed By: #### 2 193014, 5384701, 7741058, 43486635 ####[address] [address] Eosinophils/Leukocy cam[place] Auto (Bld) [Pure # fraction] 0.2 E9/L Normal 0.0-0.5 [facility] Comment on above: Order Comment: Order Added by Discern Expert. Performed By: #### 2 772610, 6404609, 9582491, 49921497 ####[address] [address] Lymphocytes/100 WBC (Bld) 27.4 % Normal 14.0-50.0 [facility] Comment on above: Order Comment: Order Added by Discern Expert. Performed By: #### 2 630811, 6934058, 2514513, 29839225 ####[address] [address] Lymphocytes/Leukocy [place] Auto (Bld) [Pure # fraction] 1.6 E9/L Normal 1.0-4.0 [facility] Comment on above: Order Comment: Order Added by Discern Expert. Performed By: #### 2 554798, 1097993, 5607970, 68878224 ####[address] [address] Monocytes/100 WBC (Bld) 8.2 % Normal 4.0-14.0 [facility] Comment on above: Order Comment: Order Added by Discern Expert. Performed By: #### 2 092811, 2355100, 4216770, 65905839 ####[address] [address] Monocytes/Leukocyte s Auto (Bld) [Pure # fraction] 0.5 E9/L Normal 0.2-1.0 [facility] Comment on above: Order Comment: Order Added by Discern Expert. Performed By: #### 2 470963, 8890529, 8445813, 11311960 ####[address] [place] [address] Neutrophils/100 WBC (Bld) 60.4 % Normal 36.0-75.0 [facility] Comment on above: Order Comment: Order Added by Discern Expert. Performed By: #### 2 048681, 3676531, 1872454, 31523903 ####[address] [address] Neutrophils/Leukocy [place] Auto (Bld) [Pure # fraction] 3.6 E9/L Normal 2.0-7.5 [facility] Comment on above: Order Comment: Order Added by Discern Expert. Performed By: #### 2 775201, 8826972, 9960772, 26075925 ####[address] [address] CBC w/ Auto Diffon Erythrocyte distribution width (RBC) [Ratio] 14.5 % High 10.9-14.2 [facility] Comment on above: Performed By: #### 2 897220, 1258640, 3105448, 24604908 ####[address] [address] Hematocrit (Bld) [Volume fraction] 39.5 % Normal 37.7-49.0 [facility] Comment on above: Performed By: #### 2 370659, 0336264, 2144805, 81313355 ####[address] [address] Hemoglobin (Bld) [Mass/Vol] 13.2 g/dL Low 13.5-17.5 [facility] Comment on above: Performed By: #### 2 434283, 0417260, 6590808, 10059534 ####[address] [place] [address] MCH (RBC) [Entitic mass] 31.3 pg Normal 27.0-34.0 [facility] Comment on above: Performed By: #### 2 284939, 9120734, 0840421, 14299151 ####[place] [address] MCHC (RBC) [Mass/Vol] 33.4 g/dL Normal 31.4-36.0 [facility] Comment on above: Performed By: #### 2 844970, 3500071, 0941146, 19945074 ####[place] [address] MCV (RBC) [Entitic vol] 93.8 fL Normal 80.0-100.0 [facility] Comment on above: Performed By: #### 2 438949, 5147161, 1874241, 62933560 ####[address] [address] Platelet mean volume (Bld) [Entitic vol] 7.8 fL Normal 6.4-10.8 [facility] Comment on above: Performed By: #### 2 713578, 2351811, 8362810, 00222701 ####[address] [address] Platelets (Bld) [#/Vol] 152.0 E9/L Normal 150.0-500.0 [facility] Comment on above: Performed By: #### 2 865920, 0646455, 9679205, 99014692 ####[address] [address] RBC (Bld) [#/Vol] 4.2 E12/L Low 4.3-5.9 [facility] Comment on above: Performed By: #### 2 488629, 7867487, 8611260, 54435005 ####[address] [address] WBC corrected for nucl RBC Auto (Bld) [#/Vol] 6.0 E9/L Normal 4.0-11.0 [facility] Comment on above: Performed By: #### 2 156434, 3424557, 1502968, 76332923 ####[facility] [address] [place] [address]74957 CHEMISTRYOrdered By: SYSTEM SYSTEM on 04-05-2023 Albumin [...] 136 mmol/L Normal 135 - 145 mmol/L [facility] Remisol Urea nitrogen [Mass/Vol] 17 mg/dL Normal 5 - 21 mg/dL [facility] Remisol Urea nitrogen/Creatinine [Mass ratio] 17 mg/mg Normal 10 - [address] [facility] Remisol CMPon 04-05-2023 Anion gap [Moles/Vol] 13 mmol/L Normal 6-16 [facility] Comment on above: Performed By: #### 2 739871, 1787030, 9166698, 67430130 ####[facility] [address] [place] [address] Calcium [Mass/Vol] 8.8 mg/dL Low 8.9-11.1 [facility] Comment on above: Performed By: #### 2 779935, 9582657, 8981648, 65510430 ####[facility] [address] [place] [address] Chloride [Moles/Vol] 97 mmol/L Low 101-111 [facility] Comment on above: Performed By: #### 2 650321, 1114092, 7773645, 81765339 ####[facility] [address] [place] [address] CO2 [Moles/Vol] 30 mmol/L Normal 21-31 [facility] Comment on above: Performed By: #### 2 900571, 2745555, 2876588, 16466442 ####[facility] [address] [place] [address] Glucose [Mass/Vol] 153 mg/dL Normal 55-199 [facility] Comment on above: Result Comment: If t his glucose result represents a fasting glucose, interpretation should refer to the following reference range: 55-99 mg/dL Performed By: #### 2 954268, 4410217, 1028227, 92585445 ####[facility] [address] [place] [address] Potassium [Moles/Vol] 3.9 mmol/L Normal 3.5-5.3 [facility] Comment on above: Performed By: #### 2 884929, 9449093, 4085162, 35585992 ####[facility] [address] [place] [address] Sodium [Moles/Vol] 136 mmol/L Normal 135-145 [facility] Comment on above: Performed By: #### 2 220237, 9783161, 2671067, 32221652 ####[address] [address] Albumin [Mass/Vol] 3.5 g/dL Normal 3.3-5.0 [facility] Comment on above: Performed By: #### 2 143646, 0145953, 6877348, 83172824 ####[address] [address] Albumin/Globulin (S) [Mass conc ratio] 1.0 Low 1.1-2.2 [facility] Comment on above: Performed By: #### 2 030315, 9753229, 3927245, 44389953 ####[facility] [address] [place] [address] ALP [Catalytic activity/Vol] 51 Int._Unit/L Normal 21-98 [facility] Comment on above: Performed By: #### 2 462169, 1441806, 6443984, 30143767 ####[address] [place] [address] ALT No additional P-5'-P [Catalytic activity/Vol] 31 Int._Unit/L Normal 6-46 [facility] Comment on above: Performed By: #### 2 629949, 3030304, 2025808, 71907682 ####[facility] [address] [place] [address] AST [Catalytic activity/Vol] 41 Int._Unit/L Normal 5-43 [facility] Comment on above: Performed By: #### 2 948983, 9429473, 0673704, 74943924 ####[address] [address] Bilirubin [Mass/Vol] 0.6 mg/dL Normal 0.0-1.1 [facility] Comment on above: Performed By: #### 2 577606, 1445168, 7362280, 38716158 ####[facility] [address] [place] [address] Creatinine [Mass/Vol] 1.0 mg/dL Normal 0.5-1.3 [facility] Comment on above: Performed By: #### 2 366184, 5739004, 0856128, 57180394 ####[facility] [address] [place] [address] Globulin (S) [Mass/Vol] 3.7 g/dL Normal 1.4-4.0 [facility] Comment on above: Performed By: #### 2 103426, 9370455, 0599182, 98854521 ####[facility] [address] [place] [address] Protein [Mass/Vol] 7.2 g/dL Normal 6.0-7.8 [facility] Comment on above: Performed By: #### 2 027234, 1157698, 8646063, 50412595 ####[facility] [address] [place] [address] Urea nitrogen [Mass/Vol] 17 mg/dL Normal 5-21 [facility] Comment on above: Performed By: #### 2 677030, 4720629, 7789007, 54547718 ####[facility] [address] [place] [address] Urea nitrogen/Creatinine [Mass ratio] 17 No Units Normal 10-20 [facility] Comment on above: Performed By: #### 2 147630, 9933273, 2065909, 02232025 ####[facility] [address] [place] [address] Consent for Treatmenton 03-13 Consent for Treatment [id number]#1.00C D:127 Normal [facility] HEMATOLOGYOrdered By: SYSTEM SYSTEM on 04-05-2023 Basophils/100 [...] 93.8 fL Normal 80.0 - 100.[address] [facility] HemeAutoSS Platelet mean volume (Bld) [Entitic vol] 7.8 fL Normal 6.4 - 10.[address] [facility] HemeAutoSS Platelets (Bld) [#/Vol] 152.0 E9/L Normal 150.0 - 500.0 E9/L [facility] HemeAutoSS RBC (Bld) [#/Vol] 4.2 E12/L Low 4.3 - 5.9 E12/L FT HemeAutoSS WBC corrected for nucl RBC Auto (Bld) [#/Vol] 6.0 E9/L Normal 4.0 - 11.0 E9/L [facility] HemeAutoSS eGFRon 04-05-2023 GFR/1.73 sq M.predicted among non-blacks MDRD (S/P/Bld) [Vol rate/Area] 78 mL/min/1.73 m2 Normal >=59 [facility] Comment on above: Order Comment: Order added by Discern Expert. Result Comment: Instrumentation Technician cristo kidney disease could be indicated at eGFR's of less than 60 mL/min/1.73m2. Kidney failure is indicated at less than 15 mL/min/1.73m2. Performed By: #### 2 373363, 3125179, 1204622, 79736868 ####[facility] [address] [place] [address] Patient Eval Forms Officeon 04-01-2023 Patient Eval Forms Office [id number]#1.00C D:127 Normal [facility] Consent for Treatmenton 03-12 Consent for Treatment [id number]#1.00C D:127 Normal [facility] Sleep Office/Clinic Noteon 0 03-29-2023 Sleep Office/Clinic Note Normal [facility] Comment on above: Result Comment: Elec tronically Signed By: Chidi ESPINAL, [place]ty [place]\.br\Date and Time Signed: 03/29/23 10:20 EDT Population Healthon 03-21-20 23 Population Health Normal [facility] C Blood Charcoalon 08-09-202 3 Blood Culture Charcoal Normal [facility] Comment on above: Performed By: #### 1 3759985 ####[facility] [address] [place] [address] Blood Culture Charcoal Normal [facility] Comment on above: Performed By: #### 1 1379059 ####[facility] [address] [place] [address] .VIPER VENOM MIXING STUDYon 03-18-2023 dRVVT w 1:1 PNP Coag (PPP) [Time] 45.3 second(s) High 0.0-40.4 [facility] Comment on above: Result Comment: Perf ormed at: [facility] [address] [id number] MD Taye Sadler Performed By: #### 1 2534010, 69776037, 017326827, 5812943, 57349569, 8330961, 2375546, 81516421, 6229770 ####[facility] [address] [place] [address] Beta-2 Glycoprot.i Aon 03-18 Beta 2 glycoprotein 1 IgA Qn (S) <9 Invalid Interpretation Code 0-25 [facility] Comment on above: Result Comment: The reference interval reflects a 3SD or 99th percentile interval,which is thought to represent a potentially clinically significantresult in accordance with the International Consensus Statement onthe classification criteria for definitive antiphospholipid syndrome(APS). J Thromb Haem 2006;4:295-306. Performed By: #### 1 3568610, 67267467, 053359506, 9382636, 70467636, 1776729, 6738594, 75702213, 4702959 ####[facility] [address] [place] [address] Beta 2 glycoprotein 1 IgG Qn (S) <9 Invalid Interpretation Code 0-20 [facility] Comment on above: Result Comment: The reference interval reflects a 3SD or 99th percentile interval,which is thought to represent a potentially clinically significantresult in accordance with the International Consensus Statement onthe classification criteria for definitive antiphospholipid syndrome(APS). J Thromb Haem 2006;4:295-306. Performed By: #### 1 8969699, 88216338, 933680151, 5235578, 25729686, 3394018, 4943342, 26978471, 3348988 ####[facility] [address] [place] [address] Beta 2 glycoprotein 1 IgM Qn (S) <9 Invalid Interpretation Code 0-32 [facility] Comment on above: Result Comment: The reference interval reflects a 3SD or 99th percentile interval,which is thought to represent a potentially clinically significantresult in accordance with the International Consensus Statement onthe classification criteria for definitive antiphospholipid syndrome(APS). J Thromb Haem 2006;4:295-306.Performed at: [facility] [id number] MD Taye Sadler Performed By: #### 1 0135544, 01498237, 639734756, 1133353, 16110855, 9548025, 4016119, 44780481, 3242493 ####[facility] [address] [place] [address] Consultation Noteon 03-18-20 Consultation Note [id number]#1.00C D:127 Normal [facility] Factor II, DNA Analysison F2 gene c.18573U>A genotype Molgen (Bld/Tiss) Comment Invalid Interpretation Code [facility] Comment on above: Result Comment: Resu lt: [...] in theF2 gene and a c.1601G>A (p. Fyo665Epy) variant in the F5 gene(commonly referred to as Factor V Leiden) have an approximately 20-fold increased risk for venous thromboembolism. Risks are likely willard even higher in more complex genotype combinations involving theF2 c.*97G>A variant and Factor V Leiden (PMID: 80133148). Additionalrisk factors include but are not limited [...] for health care providers to discussresults at [phone] ([phone]).Test Details:Variant analyzed: c.*97G>A, previously referred to as U10814DNplzkqd/Limitations:DNA analysis of the F2 gene (NM_000506.5) was [...] was developed and its performance characteristics determinedby [employer]. It has not been cleared or approved by the Food and DrugAdministration.References:Lonny S, Leonie AK, Geovani R, Nakul WW, González TARIQ; ACMG ProfessionalPractice and Guidelines Committee. Addendum: [place] [employer] consensus statement on factor V Leiden mutationtesting. Evon Med. 2020Oct 14. doi: 10.1038/[id number]-x.PMID: 40848082.Sharif GUERRA. Prothrombin Thrombophilia. 2005Mar 05[Updated 2020Sep 15]. In: Douglas MP, Corey HH, Sierra RA, et al.,editors. Khushi(Minal) [Internet]. [place] ([place]): [facility]; 6287-1712. Available from:https://www.ncbi.nlm.nih.gov/books/PWU9723/Nathan S, Leonie AK, Keagan X, Raghav B, Celina EB, Caroline P, Jamey CS;[facility] Laboratory Safety Tech Committee. Venous thromboembolismlaboratory testing (factor V Leiden and factor II c.*97G>A),2018 update: a technical standard of the [place] [employer]Gen[employer] and Genomics (ACMG). Evon Med. 2018 Jul;20(12):4619-5869.doi: 10.1038/[id number]-q. Epub 2017May 16. PMID: 35789092. Performed By: #### 1 5500299, 46059452, 662501051, 6154651, 72884935, 8106220, 9878478, 90209834, 4775324 ####[facility] [address] [place] [address] Factor V Leidenon 03-18-2023 F5 gene p.Tyx047Aax [facility] (Bld/Tiss) Comment Invalid Interpretation Code [facility] Comment on above: Result Comment: Resu lt: c.1601G>A (p.Qwq451Kir) - Not DetectedThis result is not associated with an increased risk for venousthromboembolism. See Additional Clinical Information andComments.Additional Clinical Information:Venous thromboembolism is a multifactorial disease influenced bygenetic, environmental, and circumstantial risk factors. The c.1601G>A(p. Qzz555Fvr) variant in the F5 gene, commonly referred [...] F2 c.*97G>A variant andFactor V Leiden (PMID: 81547815). Additional risk factors include butare not limited [...] for health care providers todiscuss results at [phone] (0131).Test Details:Variant Analyzed: c.1601G>A (p. Jiz930Ply), referred to as Factor VLeidenMethods/Limitations:DNA analysis of [...] was developed and its performance characteristicsdetermined by [employer]. It has not been cleared or approved by theFood and Drug Administration.References:Lonny S, Leonie AK, Geovani R, Nakul WW, González TARIQ; ACMG ProfessionalPractice and Guidelines Committee. Addendum: [place] [employer] consensus statement on factor V Leiden mutationtesting. Evon Med. 2020Oct 14. doi: 10.1038/[id number].PMID: 22399280.Sharif GUERRA. Factor V Leiden Thrombophilia. 1998December 23(Updated 2017Aug 15). In: Douglas MP, Corey HH, Sierra RA, et al.,editors. Khushi(Minal) (Internet). [place] ([place]): [facility]; 0095-2082. Available from:https://www.ncbi.nlm.nih.gov/books/MCN3767/Nathan S, Leonie AK, Keagan X, Raghav B, Celina EB, Caroline P, Jamey CS;[facility] Laboratory Safety Tech Committee. Venous thromboembolismlaboratory testing (factor V Leiden and factor II c.*97G>A), 2018update: a technical standard of the [place] [employer]Gen[employer] and Genomics (ACMG). Evon Med. 2018 Jul;20(12):2148-7701.doi: 10.1038/[id number]-v. Epub 2017May 16. PMID: 12117509. Performed By: #### 1 6699670, 69033725, 624295863, 8475160, 81952071, 3659453, 8628495, 55610212, 2948370 ####[facility] [address] [place] [address] Lupus Anticoagon 03-18-2023 aPTT.lupus sensitive Coag (PPP) [Time] 32.6 second(s) Invalid Interpretation Code 0.0-43.5 [facility] Comment on above: Performed By: #### 1 7469285, 21061808, 204155680, 3628573, 12842085, 3479870, 9490221, 82698092, 1350057 ####[facility] [address] [place] [address] dRVVT Coag (PPP) [Time] 50.9 second(s) High 0.0-47.0 [facility] Comment on above: Result Comment: Perf ormed at: [facility] [address] [id number] MD Taye Sadler Performed By: #### 1 4848056, 95887388, 832678652, 4688155, 24706711, 9694387, 3452642, 60774602, 1161895 ####[address] [place] [address] Lupus anticoagulant two screening tests W Reflex Coag (PPP) [Interp] Comment: Invalid Interpretation Code [facility] Comment on above: Result Comment: No l upus anticoagulant was detected. These results are consistent withspecific inhibitors to one or more common pathway factors (X, V, II orfibrinogen).Performed at: [address] [id number] MD Taye Sadler Performed By: #### 1 3660476, 86461823, 723246779, 4951273, 84249438, 2817139, 0156266, 56900457, 3559853 ####[address] [place] [address] dRVVT CONFIRMon 03-18-2023 dRVVT/dRVVT.excess phospholipid Coag (PPP) [Ratio] 0.9 ratio Invalid Interpretation Code 0.8-1.2 [facility] Comment on above: Result Comment: Perf ormed at: [address] [id number] MD Taye Sadler Performed By: #### 1 3161970, 60081679, 833915066, 2678373, 09650768, 4288389, 2525692, 22290372, 6206259 ####[address] [place] [address] Auto Diffon 03-13-2023 Basophils/100 WBC (Bld) 0.6 % Normal 0.0-2.0 [facility] Comment on above: Order Comment: Order Added by Discern Expert. Performed By: #### 2 244640, 2310918, 0118782, 62168718, 03208103, 29657629, 6033098, 7638694 ####[address] [place] [address] Basophils/Leukocyte s Auto (Bld) [Pure # fraction] 0.1 E9/L Normal 0.0-0.2 [facility] Comment on above: Order Comment: Order Added by Discern Expert. Performed By: #### 2 778997, 2107238, 7408123, 87812853, 97925442, 98368638, 9201234, 6549957 ####[facility] [address] [place] [address] Eosinophils/100 WBC (Bld) 2.2 % Normal 0.0-8.0 [facility] Comment on above: Order Comment: Order Added by Discern Expert. Performed By: #### 2 807808, 2412385, 7952868, 89218930, 44210024, 32648715, 5199042, 2572464 ####[address] [address] Eosinophils/Leukocy camden Auto (Bld) [Pure # fraction] 0.2 E9/L Normal 0.0-0.5 [facility] Comment on above: Order Comment: Order Added by Discern Expert. Performed By: #### 2 278848, 3550360, 3614090, 98837951, 27310708, 07477195, 8574306, 4186219 ####[facility] [address] [place] [address] Lymphocytes/100 WBC (Bld) 20.6 % Normal 14.0-50.0 [facility] Comment on above: Order Comment: Order Added by Discern Expert. Performed By: #### 2 191216, 1890091, 7448267, 09601835, 43191421, 27055697, 5972844, 6245781 ####[facility] [address] [place] [address] Lymphocytes/Leukocy camden Auto (Bld) [Pure # fraction] 1.8 E9/L Normal 1.0-4.0 [facility] Comment on above: Order Comment: Order Added by Discern Expert. Performed By: #### 2 481719, 4767714, 0951185, 86175106, 48914509, 71976700, 9796326, 1939666 ####[facility] [address] [place] [address] Monocytes/100 WBC (Bld) 7.6 % Normal 4.0-14.0 [facility] Comment on above: Order Comment: Order Added by Discern Expert. Performed By: #### 2 935383, 8343173, 8035828, 96977111, 04145250, 59318881, 3536575, 5954709 ####[facility] [address] [place] [address] Monocytes/Leukocyte s Auto (Bld) [Pure # fraction] 0.7 E9/L Normal 0.2-1.0 [facility] Comment on above: Order Comment: Order Added by Discern Expert. Performed By: #### 2 662940, 4368040, 9281355, 69054059, 71151471, 54393705, 6267222, 7091072 ####[address] [place] [address] Neutrophils/100 WBC (Bld) 69.0 % Normal 36.0-75.0 [facility] Comment on above: Order Comment: Order Added by Discern Expert. Performed By: #### 2 910526, 6485718, 8097201, 20090732, 32007993, 34092609, 2313083, 5858204 ####[address] [place] [address] Neutrophils/Leukocy camden Auto (Bld) [Pure # fraction] 6.1 E9/L Normal 2.0-7.5 [facility] Comment on above: Order Comment: Order Added by Discern Expert. Performed By: #### 2 818582, 7308389, 3050318, 21649509, 34378218, 88093760, 0905392, 8954258 ####[address] [place] [address] BMPon 03-13-2023 Creatinine [Mass/Vol] 0.9 mg/dL Normal 0.5-1.3 [facility] Comment on above: Performed By: #### 2 640246, 7598983, 0109911, 49196783, 74111494, 76068150, 2076650, 0036653 ####[facility] [address] [place] [address] Urea nitrogen [Mass/Vol] 15 mg/dL Normal 5-21 [facility] Comment on above: Performed By: #### 2 739583, 4939167, 6031781, 06994357, 50491415, 47985685, 6609479, 2055000 ####[facility] [address] [place] [address] Urea nitrogen/Creatinine [Mass ratio] 17 No Units Normal 10-20 [facility] Comment on above: Performed By: #### 2 712906, 3354706, 6605648, 02370969, 21122134, 89531599, 5790527, 9049988 ####[facility] [address] [place] [address] Anion gap [Moles/Vol] 12 mmol/L Normal 6-16 [facility] Comment on above: Performed By: #### 2 211950, 4777903, 4392174, 54245300, 31283090, 34739484, 1380445, 7976430 ####[facility] [address] [place] [address] Calcium [Mass/Vol] 8.6 mg/dL Low 8.9-11.1 [facility] Comment on above: Performed By: #### 2 603221, 2546623, 7633167, 31272756, 22882565, 94098238, 7404345, 2829981 ####[facility] [address] [place] [address] Chloride [Moles/Vol] 103 mmol/L Normal 101-111 [facility] Comment on above: Performed By: #### 2 836588, 0366939, 9893040, 98073881, 27190341, 53850067, 3440462, 2628570 ####[facility] [address] [place] [address] CO2 [Moles/Vol] 26 mmol/L Normal 21-31 [facility] Comment on above: Performed By: #### 2 705194, 3173738, 3141898, 11957014, 91054037, 17496856, 3193145, 1682743 ####[facility] [address] [place] [address] Glucose [Mass/Vol] 124 mg/dL Normal 55-199 [facility] Comment on above: Result Comment: If t his glucose result represents a fasting glucose, interpretation should refer to the following reference range: 55-99 mg/dL Performed By: #### 2 384711, 3656417, 6853856, 00304405, 68817179, 19996128, 5682275, 1117117 ####[facility] [address] [place] [address] Potassium [Moles/Vol] 4.0 mmol/L Normal 3.5-5.3 [facility] Comment on above: Performed By: #### 2 381862, 7056331, 7540393, 11887134, 63775475, 22179792, 0413510, 8618404 ####[facility] [address] [place] [address] Sodium [Moles/Vol] 137 mmol/L Normal 135-145 [facility] Comment on above: Performed By: #### 2 845576, 9079757, 4109021, 45192912, 85820118, 06890740, 1485030, 0115566 ####[facility] [address] [place] [address] BNPon 03-13-2023 Int Ctr BNP Pass Normal [facility] Comment on above: Performed By: #### 2 905213, 4063849, 5385727, 26331995, 56186839, 56887622, 3298841, 1613959 ####[facility] [address] [place] [address] Natriuretic peptide B (Bld) [Mass/Vol] 16 pg/mL Normal 5-80 [facility] Comment on above: Performed By: #### 2 751203, 4294595, 9068076, 58182894, 37255607, 67713110, 2395203, 7398115 ####[facility] [address] [place] [address] CBC w/ Auto Diffon Erythrocyte distribution width (RBC) [Ratio] 14.6 % High 10.9-14.2 [facility] Comment on above: Performed By: #### 2 013783, 6332562, 9925075, 09324243, 33079545, 73539649, 2773374, 9913539 ####[address] [place] [address] Hematocrit (Bld) [Volume fraction] 38.2 % Normal 37.7-49.0 [facility] Comment on above: Performed By: #### 2 993691, 5372758, 4089029, 51704502, 15658994, 50668631, 7137098, 1160167 ####[facility] [address] [place] [address] Hemoglobin (Bld) [Mass/Vol] 13.0 g/dL Low 13.5-17.5 [facility] Comment on above: Performed By: #### 2 659215, 8594302, 3576063, 05322304, 67315369, 25634039, 5022311, 0567510 ####[facility] [address] [place] [address] MCH (RBC) [Entitic mass] 31.5 pg Normal 27.0-34.0 [facility] Comment on above: Performed By: #### 2 034525, 7649435, 7986734, 01460297, 08441120, 64988922, 6734355, 4496489 ####[facility] [address] [place] [address] MCHC (RBC) [Mass/Vol] 34.0 g/dL Normal 31.4-36.0 [facility] Comment on above: Performed By: #### 2 173848, 1812755, 0451013, 39219207, 87673726, 17967898, 7854234, 2246111 ####[address] [place] [address] MCV (RBC) [Entitic vol] 92.7 fL Normal 80.0-100.0 [facility] Comment on above: Performed By: #### 2 145964, 0246594, 4028120, 45758157, 88894030, 28525704, 4657059, 1442215 ####[address] [address] Platelet mean volume (Bld) [Entitic vol] 7.9 fL Normal 6.4-10.8 [facility] Comment on above: Performed By: #### 2 117477, 9473987, 9947945, 56882156, 00389953, 72409250, 1231001, 9615323 ####[address] [address] Platelets (Bld) [#/Vol] 137.0 E9/L Low 150.0-500.0 [facility] Comment on above: Performed By: #### 2 462745, 8608471, 1129147, 20317539, 27989435, 64167077, 8012558, 0631101 ####[address] [address] RBC (Bld) [#/Vol] 4.1 E12/L Low 4.3-5.9 [facility] Comment on above: Performed By: #### 2 641576, 7592970, 4360870, 35726941, 51423126, 81983037, 7302313, 7857939 ####[address] [place] [address] WBC corrected for nucl RBC Auto (Bld) [#/Vol] 8.9 E9/L Normal 4.0-11.0 [facility] Comment on above: Performed By: #### 2 300245, 4633651, 3585484, 17113481, 22000703, 89393850, 9552407, 9473120 ####[facility] [address] CHEMISTRYOrdered By: SYSTEM SYSTEM on 03-13-2023 Anion [...] Remisol CRP [Mass/Vol] 1.3 mg/dL Normal <=1.9mg/dL [facility] Remisol GFR/1.73 sq M.predicted among non-blacks MDRD (S/P/Bld) [Vol rate/Area] 89 mL/min/1.73 m2 Normal >=59mL/min/1.[address] [facility] Chem S Glucose [Mass/Vol] 124 mg/dL Normal [...] 16 pg/mL Normal 5 - 80 pg/mL [facility] HemeManSS CRPon 03-13-2023 CRP [Mass/Vol] 1.3 mg/dL Normal <=1.9 [facility] Comment on above: Performed By: #### 2 363827, 4336573, 3080224, 30262307, 40319201, 49857913, 7169662, 9335393 ####[facility] [address] [place] [address] Consenton 03-13-2023 Consent [id number]#1.00 CD:127 Normal [facility] Consent for Treatmenton Consent for Treatment [id number]#1.00C D:127 Normal [facility] Discharge Instructionson Discharge Instructions [id number]#1.00 CD:127 Normal [facility] ED Clinical Summaryon 2022 ED Clinical Summary Normal [facility] ED Note-Physicianon 03-13-20 23 ED Note-Physician Normal [facility] Comment on above: Result Comment: Elec tronically Signed By: Jordan Dean DO\.br\Date and Time Signed: 03/13/23 04:21 EDT ED Patient Education Noteon 03-13-2023 ED Patient Education Note Normal [facility] ED Patient Summaryon 023 ED Patient Summary Normal [facility] HEMATOLOGYOrdered By: SYSTEM SYSTEM on 03-13-2023 Basophils/100 [...] 6.1 E9/L Normal 2.0 - 7.5 E9/L [facility] HemeAutoSS HEMATOLOGYOrdered By: Yokasta Caballero on 03-13-2023 [...] 8.9 E9/L Normal 4.0 - 11.0 E9/L [facility] HemeAutoSS Lab Miscellaneous-LCon 03-13 Lab Miscellaneous COMMENT Invalid Interpretation Code [facility] Comment on above: Result Comment: Test Ordered: [id number] Protein C- FunctionalProtein C-Functional 138 % BNReference Range: 73-180Performed at: [facility] [place], [place] [id number] PhD Quinn Pinedo Performed By: #### 1 738405109 ####[facility] [address] [place] [address] Result Comment: Test Ordered: 000165 Protein S-AntigenProtein S, Total 97 % BNReference Range: 60-150This test was developed and its performance characteristicsdetermined by [employer]. It has not been cleared or approvedby the Food and Drug Administration.Protein S, Free 118 % BNReference Range: 61-136Performed at: [facility] [place], [place] [id number] PhD Quinn Pinedo Result Comment: Test Ordered: 252565 Protein S-FunctionalProtein S-Functional 112 % BNReference Range: 63-140Protein S activity may be falsely increased (masking an abnormal, lowresult) in patients receiving direct Xa inhibitor (e.g., rivaroxaban,apixaban, edoxaban) or a direct thrombin inhibitor (e.g., dabigatran)anticoagulant treatment due to assay interference by these drugs.Performed at: [facility]villeFebumk[address] [place], [place] [id number] PhD Quinn Pinedo Lactic Acidon 03-13-2023 Lactate [Mass/Vol] 3.0 mmol/L High 0.5-2.2 [facility] Comment on above: Performed By: #### 2 808320, 3179421, 8090976, 24421501, 30331625, 34839708, 9596269, 9680021 ####[facility] [address] [place] [address] Troponin 0 Hr.on 03-13-2023 Troponin I.cardiac [Mass/Vol] 10.20 pg/mL Low 15.90-38.40 [facility] Comment on above: Result Comment: The 95% CI (Confidence Interval) PPV (Positive Predictive Value) for myocardial infarction in females is 38 pg/mL, in males 51 pg/mL. The results should be used in conjunction with clinical conditions of myocardial infarction.(Access High Sensitivity Troponin I Instructions For Use, [facility], March 2018) Performed By: #### 2 861721, 1397110, 9507067, 24205333, 79164381, 79609641, 3393373, 8959821 ####[facility] [address] [place] [address] eGFRon 03-13-2023 GFR/1.73 sq M.predicted among non-blacks MDRD (S/P/Bld) [Vol rate/Area] 89 mL/min/1.73 m2 Normal >=59 [facility] Comment on above: Order Comment: Order added by Discern Expert. Result Comment: Instrumentation Technician cristo kidney disease could be indicated at eGFR's of less than 60 mL/min/1.73m2. Kidney failure is indicated at less than 15 mL/min/1.73m2. Performed By: #### 2 429307, 0507161, 8070556, 55043358, 45681450, 84422751, 5663677, 3781662 ####[facility] [address] [place] [address] LISA ABS Ig G,M,Aon 3 Cardiolipin IgA IA Qn (S) <9 Invalid Interpretation Code 0-11 [facility] Comment on above: Result Comment: Nega tive: <12Indeterminate: 12 - 20Low-Med Positive: >20 - 80High Positive: >80Performed at: [facility] [address] [place], [place] [id number] PhD Quinn Pinedo Performed By: #### 1 3411609 ####[facility] [address] [place] [address] Cardiolipin IgG IA Qn (S) <9 Invalid Interpretation Code 0-14 [facility] Comment on above: Result Comment: Nega tive: <15Indeterminate: 15 - 20Low-Med Positive: >20 - 80High Positive: >80 Performed By: #### 1 1865247 ####[address] [place] [address] Cardiolipin IgM IA Qn (S) <9 Invalid Interpretation Code 0-12 [facility] Comment on above: Result Comment: Nega tive: <13Indeterminate: 13 - 20Low-Med Positive: >20 - 80High Positive: >80 Performed By: #### 1 5909268 ####[address] [address] Auto Diffon 03-11-2023 Basophils/100 WBC (Bld) 1.0 % Normal 0.0-2.0 [facility] Comment on above: Order Comment: Order Added by Discern Expert. Performed By: #### 1 9383454, 20348809, 010329680, 5837227, 65151376, 2891336, 3497721, 24124046, 8613896 ####[address] [address] Basophils/Leukocyte s Auto (Bld) [Pure # fraction] 0.1 E9/L Normal 0.0-0.2 [facility] Comment on above: Order Comment: Order Added by Discern Expert. Performed By: #### 1 1377885, 70063322, 362942692, 5702668, 36385153, 5135722, 9438206, 74012749, 0604446 ####[address] [address] Eosinophils/100 WBC (Bld) 2.1 % Normal 0.0-8.0 [facility] Comment on above: Order Comment: Order Added by Discern Expert. Performed By: #### 1 5812303, 53569721, 075490221, 6366026, 35935403, 6012226, 4151587, 32158812, 8850732 ####[address] [address] Eosinophils/Leukocy cam[place] Auto (Bld) [Pure # fraction] 0.2 E9/L Normal 0.0-0.5 [facility] Comment on above: Order Comment: Order Added by Discern Expert. Performed By: #### 1 7796292, 70616597, 206826479, 0561966, 58825935, 4670753, 4839767, 04989630, 6928294 ####[facility] [address] [place] [address] Lymphocytes/100 WBC (Bld) 23.1 % Normal 14.0-50.0 [facility] Comment on above: Order Comment: Order Added by Discern Expert. Performed By: #### 1 0295669, 88844666, 135700406, 3329296, 36597562, 0060181, 1820386, 45556334, 2691055 ####[address] [place] [address] Lymphocytes/Leukocy [place] Auto (Bld) [Pure # fraction] 1.7 E9/L Normal 1.0-4.0 [facility] Comment on above: Order Comment: Order Added by Discern Expert. Performed By: #### 1 7437320, 65282160, 153978870, 1748084, 73570670, 6039237, 2427406, 46024971, 6810393 ####[address] [place] [address] Monocytes/100 WBC (Bld) 7.3 % Normal 4.0-14.0 [facility] Comment on above: Order Comment: Order Added by Discern Expert. Performed By: #### 1 6280218, 57182840, 892777943, 8295502, 32636247, 2272698, 6033397, 36193048, 8314344 ####[address] [place] [address] Monocytes/Leukocyte s Auto (Bld) [Pure # fraction] 0.6 E9/L Normal 0.2-1.0 [facility] Comment on above: Order Comment: Order Added by Discern Expert. Performed By: #### 1 5537280, 87931027, 080772601, 5060505, 43807461, 9271655, 0884776, 41726743, 3995053 ####[facility] [address] [place] [address] Neutrophils/100 WBC (Bld) 66.5 % Normal 36.0-75.0 [facility] Comment on above: Order Comment: Order Added by Discern Expert. Performed By: #### 1 [id number], 29508802, 254448472, 3275125, 55626728, 1886139, 3190858, 18393418, 7485432 ####[address] [place] [address] Neutrophils/Leukocy camden Auto (Bld) [Pure # fraction] 5.0 E9/L Normal 2.0-7.5 [facility] Comment on above: Order Comment: Order Added by Discern Expert. Performed By: #### 1 [id number], 28217179, 392717529, 6076878, 53578315, 0868673, 5448281, 52436062, 6047949 ####[address] [place] [address] CBC w/ Auto Diffon 3 Erythrocyte distribution width (RBC) [Ratio] 14.6 % High 10.9-14.2 [facility] Comment on above: Performed By: #### 1 5280679, 06421350, 860683420, 3970261, 66656415, 9331642, 4336956, 60769942, 4098085 ####[address] [place] [address] Hematocrit (Bld) [Volume fraction] 39.8 % Normal 37.7-49.0 [facility] Comment on above: Performed By: #### 1 5213260, 22627397, 339359517, 7453762, 40840776, 2786264, 2030606, 55452252, 3762227 ####[address] [place] [address] Hemoglobin (Bld) [Mass/Vol] 13.3 g/dL Low 13.5-17.5 [facility] Comment on above: Performed By: #### 1 5097097, 51205998, 481362813, 1194655, 60190432, 8038214, 4878818, 58437424, 0909417 ####[facility] [address] [place] [address] MCH (RBC) [Entitic mass] 31.2 pg Normal 27.0-34.0 [facility] Comment on above: Performed By: #### 1 2925235, 27012290, 402733361, 2302087, 95253168, 4371216, 7958096, 10609795, 7180697 ####[address] [place] [address] MCHC (RBC) [Mass/Vol] 33.4 g/dL Normal 31.4-36.0 [facility] Comment on above: Performed By: #### 1 2879885, 12218032, 683428592, 3074633, 16176382, 1098297, 4209211, 39667819, 0752878 ####[address] [place] [address] MCV (RBC) [Entitic vol] 93.2 fL Normal 80.0-100.0 [facility] Comment on above: Performed By: #### 1 1650106, 95585262, 722702355, 2930535, 99532889, 4975981, 5941961, 30025455, 5245399 ####[address] [place] [address] Platelet mean volume (Bld) [Entitic vol] 8.1 fL Normal 6.4-10.8 [facility] Comment on above: Performed By: #### 1 7042564, 55621001, 814937800, 9746025, 60140284, 7881779, 8519422, 28910749, 5309775 ####[address] [place] [address] Platelets (Bld) [#/Vol] 174.0 E9/L Normal 150.0-500.0 [facility] Comment on above: Performed By: #### 1 7412598, 56254224, 340194658, 5450807, 59052546, 9450006, 3524238, 38409991, 5496445 ####[facility] [address] [place] [address] RBC (Bld) [#/Vol] 4.3 E12/L Normal 4.3-5.9 [facility] Comment on above: Performed By: #### 1 1402987, 50067816, 881594659, 6050219, 84059403, 8043809, 1532271, 33242133, 9390655 ####[facility] [address] [place] [address] WBC corrected for nucl RBC Auto (Bld) [#/Vol] 7.5 E9/L Normal 4.0-11.0 [facility] Comment on above: Performed By: #### 1 0971147, 58989327, 996370621, 4974695, 67262203, 2070547, 2811374, 96169691, 7561758 ####[facility] [address] [place] [address] COAGULATIONOrdered By: Brandie Sams on 03-11-2023 Fibrin D-dimer FEU (PPP) [Mass/Vol] 1012 ng/mL FEU Invalid Interpretation Code 215 - 500 ng/mL FEU [facility] Auto Coag Comment on above: Result Comment: Resu lts Called To Onc/Jerica Sánchez By And Read Back For Confirmation On 03/11/2023 12:57:21 EDT Results Verified By Repeat Analysis Consent for Treatmenton 02-11 Consent for Treatment [id number]#1.00C D:127 Normal [facility] D-Dimeron 03-11-2023 Fibrin D-dimer FEU (PPP) [Mass/Vol] 1012 [id number] Abnormal 215-500 [facility] Comment on above: Result Comment: Resu lts [...] skin infectionsLiver cirrhosisPregnancy Performed By: #### 1 6153567, 53797069, 114731555, 3890817, 77635778, 0362952, 3216386, 56563625, 8824657 ####[facility] [address] [place] [address] HEMATOLOGYOrdered By: SYSTEM SYSTEM on 03-11-2023 Basophils/100 [...] 66.5 % Normal 36.0 - 75.0 % [facility] HemeAutoSS Neutrophils/Leukocy camden Auto (Bld) [Pure # fraction] 5.0 E9/L Normal 2.0 - 7.5 E9/L [facility] HemeAutoSS HEMATOLOGYOrdered By: Yessica Murdock on 03-11-2023 Erythrocyte distribution width (RBC) [Ratio] 14.6 % High 10.9 - 14.2 % [facility] HemeAutoSS Hematocrit (Bld) [Volume fraction] 39.8 % Normal 37.7 - 49.0 % [facility] HemeAutoSS Hemoglobin (Bld) [Mass/Vol] 13.3 g/dL Low 13.5 - 17.5 gm/dL [facility] HemeAutoSS MCH (RBC) [Entitic mass] 31.2 pg Normal 27.0 - 34.[address] [facility] HemeAutoSS MCHC (RBC) [Mass/Vol] 33.4 g/dL Normal 31.4 - 36.0 gm/dL [facility] HemeAutoSS MCV (RBC) [Entitic vol] 93.2 fL Normal 80.0 - 100.[address] [facility] HemeAutoSS Platelet mean volume (Bld) [Entitic vol] 8.1 fL Normal 6.4 - 10.[address] [facility] HemeAutoSS Platelets (Bld) [#/Vol] 174.0 E9/L Normal 150.0 - 500.0 E9/L [facility] HemeAutoSS RBC (Bld) [#/Vol] 4.3 E12/L Normal 4.3 - 5.9 E12/L [facility] HemeAutoSS WBC corrected for nucl RBC Auto (Bld) [#/Vol] 7.5 E9/L Normal 4.0 - 11.0 E9/L [facility] HemeAutoSS Lab Miscellaneous-LCon 03-11 Test Code 782911 Invalid Interpretation Code [facility] Comment on above: Performed By: #### 1 [id number] ####[facility] [address] [place] [address] Test Code 205763 Invalid Interpretation Code [facility] Comment on above: Performed By: #### 1 [id number] ####[facility] [address] Test Code 703307 Invalid Interpretation Code [facility] Comment on above: Performed By: #### 1 [id number] ####[facility] [address] [place] [address] Test Name Protein C Invalid Interpretation Code [facility] Comment on above: Performed By: #### 1 [id number] ####[facility] [address] [place] [address] Test Name Protein S Funct Invalid Interpretation Code [facility] Comment on above: Performed By: #### 1 [id number] ####[facility] [address] [place] [address] Test Name Protein S Antig Invalid Interpretation Code [facility] Comment on above: Performed By: #### 1 [id number] ####[facility] [address] [place] [address] Oncology Progress Noteon Oncology Progress Note Normal [facility] Reference Laboratory Testing Ordered By: Sylwia Lubin on 03-11-2023 Test Code 170589 Invalid Interpretation Code [facility] SendOutsSS Test Code 904234 Invalid Interpretation Code [facility] SendOutsSS Test Code 712771 Invalid Interpretation Code [facility] SendOutsSS Test Name Protein C Invalid Interpretation Code [facility] SendOutsSS Test Name Protein S Funct Invalid Interpretation Code [facility] SendOutsSS Test Name Protein S Antig Invalid Interpretation Code [facility] SendOutsSS Population Healthon 03-05-20 23 Population Health Normal [facility] Ambulatory Visit Summaryon 0 03-01-2023 Ambulatory Visit Summary Invalid Interpretation Code [address] [place] [address]- \.br\ Saturday 11:00 AM EST \.br\ With:\.br\ Where: [facility] Primary Care [facility] Family Medicine Office/Clini c Noteon 03-01-2023 Family Medicine Office/Clinic Note Normal [facility] Comment on above: Result Comment: Elec tronically Signed By: LAZARO ESPINAL, Kevin Milligan\.br\Date and Time Signed: 03/01/23 13:42 EDT Patient Educationon 03-01-20 Patient Education Normal [facility] C Blood Charcoalon 3 Blood Culture Charcoal Normal [facility] Comment on above: Performed By: #### 1 5334216 ####[facility] [address] [place] [address] Blood Culture Charcoal Normal [facility] Comment on above: Performed By: #### 1 9492380 ####[facility] [address] [place] [address] Prescriptions/Work Noteson 0 02-21-2023 Prescriptions/Work Notes [id number]#1.00 CD:127 Normal [facility] Discharge Instructionson Discharge Instructions [id number]#1.00 CD:127 Normal [facility] Population Healthon 02-21-20 23 Population Health Normal [facility] BMPon 02-19-2023 Anion gap [Moles/Vol] 10 mmol/L Normal 6-16 [facility] Comment on above: Performed By: #### 2 402635, 01324350, 1420653 ####[facility] [address] [place] [address] Calcium [Mass/Vol] 9.1 mg/dL Normal 8.9-11.1 [facility] Comment on above: Performed By: #### 2 597001, 86841804, 5745809 ####[facility] [address] [place] [address] Chloride [Moles/Vol] 99 mmol/L Low 101-111 [facility] Comment on above: Performed By: #### 2 603973, 59632643, 7688572 ####[facility] [address] [place] [address] CO2 [Moles/Vol] 32 mmol/L High 21- [facility] Comment on above: Performed By: #### 2 241988, 66025925, 1577572 ####[facility] [address] [place] [address] Creatinine [Mass/Vol] 0.9 mg/dL Normal 0.5-1.3 [facility] Comment on above: Performed By: #### 2 139869, 30922649, 9526213 ####[facility] [address] [place] [address] Glucose [Mass/Vol] 148 mg/dL Normal 55-199 [facility] Comment on above: Result Comment: If t his glucose result represents a fasting glucose, interpretation should refer to the following reference range: 55-99 mg/dL Performed By: #### 2 752842, 70121105, 2505623 ####[facility] [address] [place] [address] Potassium [Moles/Vol] 4.0 mmol/L Normal 3.5-5.3 [facility] Comment on above: Performed By: #### 2 512123, 33457944, 2243016 ####[facility] [address] [place] [address] Sodium [Moles/Vol] 137 mmol/L Normal 135-145 [facility] Comment on above: Performed By: #### 2 057816, 70313896, 2812292 ####[facility] [address] [place] [address] Urea nitrogen [Mass/Vol] 10 mg/dL Normal 5-21 [facility] Comment on above: Performed By: #### 2 304390, 41915121, 6523531 ####[facility] [address] [place] [address] Urea nitrogen/Creatinine [Mass ratio] 11 No Units Normal 10-20 [facility] Comment on above: Performed By: #### 2 712842, 18534190, 9875798 ####[facility] [address] [place] [address] CHEMISTRYOrdered By: Lab ROP User on 02-19-2023 Glucose [Mass/Vol] 159 mg/dL High 55 - 99 mg/dL FTM C POC Subsection Comment on above: Result Comment: Georgette palacios RN/ POC Device SN [id number] Invalid Interpretation Code [facility] POC Subsection POC User ID [id number] Invalid Interpretation Code [facility] POC Subsection POC Username ISABELL SAWYER Invalid Interpretation Code [facility] POC Subsection Glucose [Mass/Vol] 176 mg/dL High 55 - 99 mg/dL FTM C POC Subsection Comment on above: Result Comment: Noti suzanne RN/ POC Device SN [id number] Invalid Interpretation Code [facility] POC Subsection POC User ID [id number] Invalid Interpretation Code [facility] POC Subsection POC Username DEBRA GOMEZ Invalid Interpretation Code [facility] POC Subsection Glucose [Mass/Vol] 152 mg/dL High 55 - 99 mg/dL FTM C POC Subsection Comment on above: Result Comment: Noti suzanne RN/ POC Device SN [id number] Invalid Interpretation Code [facility] POC Subsection POC User ID [id number] Invalid Interpretation Code [facility] POC Subsection POC Username DEBRA GOMEZ Invalid Interpretation Code FT POC Subsection CHEMISTRYOrdered By: SYSTEM SYSTEM on 02-19-2023 Anion gap [Moles/Vol] 10 mmol/L Normal 6 - 16 mEq/L [facility] Remisol Calcium [Mass/Vol] 9.1 mg/dL Normal 8.9 - 11.1 mg/dL [facility] Remisol Chloride [Moles/Vol] 99 mmol/L Low 101 - 111 mmol/L [facility] Remisol CO2 [Moles/Vol] 32 mmol/L High 21 - 31 mmol/L [facility] Remisol Creatinine [Mass/Vol] 0.9 mg/dL Normal 0.5 - 1.3 mg/dL [facility] Remisol GFR/1.73 sq M.predicted among non-blacks MDRD (S/P/Bld) [Vol rate/Area] 89 mL/min/1.73 m2 Normal >=59mL/min/1.[address] [facility] Chem S Glucose [Mass/Vol] 148 mg/dL Normal 55 - 199 mg/dL [facility] Remisol Magnesium [Mass/Vol] 1.7 mg/dL Normal 1.3 - 2.4 mg/dL [facility] Potassium [Moles/Vol] 4.0 mmol/L Normal 3.5 - 5.3 mmol/L [facility] Remisol Sodium [Moles/Vol] 137 mmol/L Normal 135 - 145 mmol/L [facility] Remisol Urea nitrogen [Mass/Vol] 10 mg/dL Normal [...] 12.5 s Normal 9.4 - 12.5 second(s) [facility] Auto Coag Capillary Glucose POCon 02-09 Glucose [Mass/Vol] 159 mg/dL High 55-99 [facility] Comment on above: Result Comment: Georgette LOPEZ Performed By: #### 2 [id number] ####[facility] [address] [place] [address] Glucose [Mass/Vol] 176 mg/dL High 55-99 [facility] Comment on above: Result Comment: Georgette LOPEZ Performed By: #### 2 [id number] ####[facility] [address] [place] [address] Glucose [Mass/Vol] 152 mg/dL High 55-99 [facility] Comment on above: Result Comment: Georgette LOPEZ Performed By: #### 2 [id number] ####[facility] [address] [place] [address] Discharge Note-Nursingon Discharge Note-Nursing Normal [address] [place] [address]- \.br\ New Follow Up Appointments after Discharge\.br\ Follow Up with [facility] When: 03/01/2023 01:00 PM EDT\.br\ Comments:\.br\ Your follow up appointment is with Dr. Lobo. Thank you.\.br\ Where:\.br\ [address]br\ [place] [address]-\.br\ Business (1)\.br\ Follow Up with [facility] When: \.br\ Comments:\.br\ [facility] will contact you to set up a home visit. Thank you.\.br\ Follow Up with Ralph Jennings When: \.br\ Comments:\.br\ Chronic Venous Insuf\.br\ Please call Kike at Dr. Jennings's office in [place] to make a follow up appointment. The phone number is [phone]. Thank you.\.br\ Where:\.br\ [address]br\ [place] [address]-\.br\ Business (1)\.br\ Follow Up with Matty Murillo When: \.br\ Comments:\.br\ needs PFTs and sleep study\.br\ The central scheduling department at [facility] will need to schedule the PFT's. Please contact Dr. Murillo's offic eto set up a time for your sleep study. 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 Amaro office will contact you to set up an appointment. If you do not hear from them in 3 days, then call [phone] and asked for Oncology/ Hematology department. Thank you.\.br\ Where:\.br\ [facility]\.br\ [address].br\ [place] [address]-\.br\ Medications\.br\ What How Much When Why Instructions Next Dose\.br\ New apixaban (Eliquis 5 mg oral tablet) 2 tabs (10 mg) BID x 7 days then 1 tab bid By Mouth 2 times a day initial fill only Pickup at [facility]/pharmacy #[id number] 02/19 @ 9 PM \.br\ New methocarbamol (Robaxin 500 mg Tab) 2 Tablets By Mouth 4 times a day Duration: 14 Days Pickup at [facility]/pharmacy #[id number] 02/19 @ 9 PM\.br\ Unchanged [...] Unchanged fluticasone nasal (Flonase 0.05 mg/ inh [place]) 2 Sprays Nasal Inhalation Every day Allergic [...] NEEDED, TAKE WHEN TAKING LASIX\.br\ Pharmacy Information\.br\ [facility]/pharmacy #[id number]: [address] [place] [phone]\.br\ \.br\ What How Much When Comments\.br\ Stop [...] High serum protein level\.br\ HTN (hypertension)\.b r\ [facility] current use of oral hypoglycemic drug\.br\ Numbness [...] pulmonary embolus\.br\ kidney stones\.br\ Left shoulder pain\.br\ 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\.b r\ Lumbago\.br\ Lumbar [...] The following factors may make you more [facility] Echo Transthoracic Completeo n 02-19-2023 Echo Transthoracic Complete Normal [facility] Inpatient Clinical Summaryon 02-19-2023 Inpatient Clinical Summary Normal [facility] Inpatient Patient Summaryon 02-19-2023 Inpatient Patient Summary Normal [facility] Interdisciplinary Note - J Carlos e Manageron 02-19-2023 Interdisciplinary Note - 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 Normal [facility] Comment on above: Result Comment: Elec tronically Signed By: Gladis Finney RN\.br\Date and Time Signed: 02/19/23 13:20 EDT Magnesiumon 02-19-2023 Magnesium [Mass/Vol] 1.7 mg/dL Normal 1.3-2.4 [facility] Comment on above: Performed By: #### 2 336479, 51541624, 9647115 ####[facility] [address] [place] [address] Message from Medicareon 02-09 Message from Medicare [id number]#1.00 CD:127 Normal [facility] PTon 02-19-2023 INR Coag (PPP) [Relative time] 1.0 {INR} Invalid Interpretation Code [facility] Comment on above: Result Comment: INR results are specifically intended to assess patients stabilized on long-term Anticoagulation therapy suggested INR?s ?Less Intensive Anticoagulation? 2.0 ? 3.0Conventional Range 3.0 ? 4.5 Performed By: #### 2 515570, 6626140 ####[facility] [address] [place] [address] PT Coag (PPP) [Time] 11.3 second(s) Normal 9.4-12.5 [facility] Comment on above: Result Comment: 15 d [...] the same coagulation reagent and instrumentation as [facility]. Currently there are no coagulation studies available worldwide for children to 14 days, and no normal ranges. Performed By: #### 2 020861, [id number] ####[facility] [address] [place] [address] PT & PTTon 02-19-2023 aPTT Coag (PPP) [Time] 77.6 second(s) High 25.1-36.5 [facility] Comment on above: Result Comment: Para meter [...] the same coagulation reagent and instrumentation as [facility]. Currently there are no coagulation studies available worldwide for children to 14 days, and no normal ranges. Heparin therapeutic range (represented by Anti-Factor Xa activity of 0.2 - 0.4 U/mL) corresponds to PTT of 56.6 - 109.0 sec. Performed By: #### 1 [id number] ####[facility] [address] [place] [address] INR Coag (PPP) [Relative time] 1.1 {INR} Invalid Interpretation Code [facility] Comment on above: Result Comment: INR results are specifically intended to assess patients stabilized on long-term Anticoagulation therapy suggested INR?s ?Less Intensive Anticoagulation? 2.0 ? 3.0Conventional Range 3.0 ? 4.5 Performed By: #### 1 [id number] ####[facility] [address] [place] [address] PT Coag (PPP) [Time] 12.5 second(s) Normal 9.4-12.5 [facility] Comment on above: Result Comment: 15 d [...] the same coagulation reagent and instrumentation as [facility]. Currently there are no coagulation studies available worldwide for children to 14 days, and no normal ranges. Performed By: #### 1 [id number] ####[facility] [address] [place] [address] PTTon 02-19-2023 aPTT Coag (PPP) [Time] 70.2 second(s) High 25.1-36.5 [facility] Comment on above: Result Comment: Para meter [...] the same coagulation reagent and instrumentation as [facility]. Currently there are no coagulation studies available worldwide for children to 14 days, and no normal ranges. Heparin therapeutic range (represented by Anti-Factor Xa activity of 0.2 - 0.4 U/mL) corresponds to PTT of 56.6 - 109.0 sec. Performed By: #### 2 874537, 6495172 ####[facility] [address] [place] [address] aPTT Coag (PPP) [Time] 74.4 second(s) High 25.1-36.5 [facility] Comment on above: Result Comment: Para meter [...] the same coagulation reagent and instrumentation as [facility]. Currently there are no coagulation studies available worldwide for children to 14 days, and no normal ranges. Heparin therapeutic range (represented by Anti-Factor Xa activity of 0.2 - 0.4 U/mL) corresponds to PTT of 56.6 - 109.0 sec. Performed By: #### 2 [id number] ####[facility] [address] [place] [address] Patient Education - Texton 0 02-19-2023 Patient Education - Text Normal [facility] eGFRon 02-19-2023 GFR/1.73 sq M.predicted among non-blacks MDRD (S/P/Bld) [Vol rate/Area] 89 mL/min/1.73 m2 Normal >=59 [facility] Comment on above: Order Comment: Order added by Discern Expert. Result Comment: Instrumentation Technician cristo kidney disease could be indicated at eGFR's of less than 60 mL/min/1.73m2. Kidney failure is indicated at less than 15 mL/min/1.73m2. Performed By: #### 2 143917, 03702849, 3075619 ####[facility] [address] [place] [address] Ambulatory Visit Summaryon 0 02-18-2023 Ambulatory Visit Summary Normal [facility] Auto DiffOrdered By: SYSTEM SYSTEM on 02-18-2023 Basophils/100 WBC (Bld) 0.7 % Normal 0.0-2.[address] [facility] HemeAutoSS Comment on above: Order Comment: Order Added by Discern Expert. Performed By: #### 2 509890, 1167472, 41518918, 51190950, 9296532, 02542437, 92585473, 5129197 ####[facility] [address] [place] [address] Basophils/Leukocyte s Auto (Bld) [Pure # fraction] 0.0 E9/L Normal 0.0-0.[address] [facility] HemeAutoSS Comment on above: Order Comment: Order Added by Discern Expert. Performed By: #### 2 148522, 0587471, 52937268, 97553338, 5131653, 46820656, 82574780, 5165036 ####[address] [place] [address] Eosinophils/100 WBC (Bld) 1.7 % Normal 0.0-8.0 [facility] HemeAutoSS Comment on above: Order Comment: Order Added by Discern Expert. Performed By: #### 2 080174, 9111868, 33945124, 23004262, 1453710, 78294680, 22881032, 2611390 ####[address] [place] [address] Eosinophils/Leukocy camden Auto (Bld) [Pure # fraction] 0.1 E9/L Normal 0.0-0.5 [facility] HemeAutoSS Comment on above: Order Comment: Order Added by Discern Expert. Performed By: #### 2 081898, 2952183, 07825543, 00387146, 0999975, 12444366, 55991086, 0018579 ####[place] [address] [address] Lymphocytes/100 WBC (Bld) 20.6 % Normal 14.0-50.0 [facility] HemeAutoSS Comment on above: Order Comment: Order Added by Discern Expert. Performed By: #### 2 223635, 0860296, 79038564, 48451855, 8428034, 58616480, 34523810, 6634194 ####[address] [address] Lymphocytes/Leukocy camden Auto (Bld) [Pure # fraction] 1.5 E9/L Normal 1.0-4.0 [facility] HemeAutoSS Comment on above: Order Comment: Order Added by Discern Expert. Performed By: #### 2 458884, 7011416, 50150062, 97282444, 1984052, 45865221, 86396600, 0917754 ####[address] [place] [address] Monocytes/100 WBC (Bld) 7.5 % Normal 4.0-14.0 [facility]eAutoSS Comment on above: Order Comment: Order Added by Discern Expert. Performed By: #### 2 151303, 4974926, 30241513, 82663872, 3409181, 27040643, 66333142, 0213300 ####[address] [place] [address] Monocytes/Leukocyte s Auto (Bld) [Pure # fraction] 0.6 E9/L Normal 0.2-1.[address] [facility] HemeAutoSS Comment on above: Order Comment: Order Added by Discern Expert. Performed By: #### 2 625586, 6429988, 61765553, 34396307, 8669811, 55975931, 28800888, 8258789 ####[address] [place] [address] Neutrophils/100 WBC (Bld) 69.5 % Normal 36.0-75.[address] [facility] HemeAutoSS Comment on above: Order Comment: Order Added by Discern Expert. Performed By: #### 2 454672, 8818575, 60906687, 47205100, 4277329, 08748608, 68004487, 3028681 ####[address] [address] Neutrophils/Leukocy camden Auto (Bld) [Pure # fraction] 5.2 E9/L Normal 2.0-7.5 [facility] HemeAutoSS Comment on above: Order Comment: Order Added by Discern Expert. Performed By: #### 2 610156, 0684565, 43668439, 96164934, 9152382, 48358178, 66039963, 9556413 ####[address] [place] [address] BMPOrdered By: SYSTEM SYSTEM on 02-18-2023 Creatinine [Mass/Vol] 0.9 mg/dL Normal 0.5-1.[address] [facility] Remisol Comment on above: Performed By: #### 2 675567, 8800575, 82299488, 20451222, 0270544, 96506028, 11298919, 7093297 ####[address] [place] [address] Urea nitrogen [Mass/Vol] 14 mg/dL Normal 5-21 [facility] Remisol Comment on above: Performed By: #### 2 493744, 2640508, 50403370, 35322721, 9483622, 79789365, 15323038, 7048900 ####[facility] [address] [place] [address] Anion gap [Moles/Vol] 13 mmol/L Normal 6-16 [facility] Remisol Comment on above: Performed By: #### 2 606035, 0751934, 79203448, 63344403, 2351777, 49774239, 90693778, 7804368 ####[facility] [address] [place] [address] Calcium [Mass/Vol] 9.0 mg/dL Normal 8.9-11.[address] [facility] Remisol Comment on above: Performed By: #### 2 951260, 5713280, 39498732, 62567046, 4812122, 45223048, 39502588, 4766603 ####[facility] [address] [place] [address] Chloride [Moles/Vol] 98 mmol/L Low 101-[address] [facility] Remisol Comment on above: Performed By: #### 2 490685, 1776048, 41047717, 92418537, 7289770, 56130876, 62892477, 7635319 ####[facility] [address] [place] [address] CO2 [Moles/Vol] 27 mmol/L Normal 21-[address] [facility] Remisol Comment on above: Performed By: #### 2 746992, 7945730, 67406862, 55380343, 1457917, 01350663, 39898635, 3786879 ####[facility] [address] [place] [address] Glucose [Mass/Vol] 155 mg/dL Normal 55-[address] [facility] Remisol Comment on above: Result Comment: If t his glucose result represents a fasting glucose, interpretation should refer to the following reference range: 55-99 mg/dL Performed By: #### 2 888202, 2678690, 27486997, 12024325, 0743987, 53797680, 09584641, 5447210 ####[facility] [address] [place] [address] Potassium [Moles/Vol] 3.7 mmol/L Normal 3.5-5.[address] [facility] Remisol Comment on above: Performed By: #### 2 361185, 3654923, 85752960, 28936905, 6170581, 70839981, 16793040, 7664973 ####[facility] [address] [place] [address] Sodium [Moles/Vol] 134 mmol/L Low 135-[address] [facility] Remisol Comment on above: Performed By: #### 2 581624, 2999463, 95210318, 32587735, 8767551, 58049700, 18736007, 3716686 ####[facility] [address] [place] [address] BMPon 02-18-2023 Urea nitrogen/Creatinine [Mass ratio] 16 No Units Normal 10-20 [facility] Comment on above: Performed By: #### 2 717429, 1642504, 55176373, 24744112, 8542474, 26890653, 51400854, 5508869 ####[facility] [address] [place] [address] BNPon 02-18-2023 Int Ctr BNP Pass Normal [facility] Comment on above: Performed By: #### 2 940456, 4276457, 64736553, 49175747, 0323965, 95980072, 89183035, 8954512 ####[facility] [address] [place] [address] BNPOrdered By: Gonzales up on 02-18-2023 Natriuretic peptide B (Bld) [Mass/Vol] 21 pg/mL Normal 5-[address] [facility] HemeManSS Comment on above: Performed By: #### 2 824370, 2576985, 55933831, 40211400, 3797335, 41054274, 17987298, 4939921 ####[facility] [address] [place] [address] CBC w/ Auto DiffOrdered By: Rafia Caballero on 02-18-2023 Erythrocyte distribution width (RBC) [Ratio] 14.8 % High 10.9-14.[address] [facility] HemeAutoSS Comment on above: Performed By: #### 2 771745, 4256985, 48495132, 07499350, 1388488, 96020485, 83019119, 5207993 ####[facility] [address] [place] [address] Hematocrit (Bld) [Volume fraction] 42.8 % Normal 37.7-49.[address] [facility] HemeAutoSS Comment on above: Performed By: #### 2 354377, 0549647, 11154557, 80101629, 5539633, 82831116, 33435526, 0908857 ####[facility] [address] [place] [address] Hemoglobin (Bld) [Mass/Vol] 14.5 g/dL Normal 13.5-17.[address] [facility] HemeAutoSS Comment on above: Performed By: #### 2 904605, 5401514, 45780356, 91723756, 5448983, 43899064, 19536753, 9940070 ####[address] [place] [address] MCH (RBC) [Entitic mass] 31.3 pg Normal 27.0-34.[address] [facility] HemeAutoSS Comment on above: Performed By: #### 2 627852, 3145550, 70823770, 18400416, 8247815, 33771173, 23238860, 3656919 ####[address] [place] [address] MCHC (RBC) [Mass/Vol] 33.9 g/dL Normal 31.4-36.[address] [facility] HemeAutoSS Comment on above: Performed By: #### 2 407683, 6132815, 71506424, 26473866, 8879320, 60611323, 72842355, 2699579 ####[address] [place] [address] MCV (RBC) [Entitic vol] 92.4 fL Normal 80.0-100.0 [facility] HemeAutoSS Comment on above: Performed By: #### 2 838646, 8231380, 28663232, 26094905, 4716726, 77649938, 64679692, 6507545 ####[address] Platelet mean volume (Bld) [Entitic vol] 8.2 fL Normal 6.4-10.8 [facility] HemeAutoSS Comment on above: Performed By: #### 2 509924, 9425752, 33872001, 58348165, 9157495, 84230518, 58531637, 6294179 ####[address] Platelets (Bld) [#/Vol] 167.0 E9/L Normal 150.0-500.0 [facility] HemeAutoSS Comment on above: Performed By: #### 2 414711, 9413065, 98326637, 61191949, 1107827, 00357936, 23250998, 6522335 ####[address] [address] RBC (Bld) [#/Vol] 4.6 E12/L Normal 4.3-5.9 [facility] HemeAutoSS Comment on above: Performed By: #### 2 229405, 5460268, 38409244, 53649796, 2889816, 13526776, 23165026, 5546051 ####[address] [address] WBC corrected for nucl RBC Auto (Bld) [#/Vol] 7.5 E9/L Normal 4.0-11.0 [facility] HemeAutoSS Comment on above: Performed By: #### 2 477587, 7520603, 00378109, 20307851, 3768879, 51453655, 03494024, 9256223 ####[facility] [address] [place] [address] CHEMISTRYOrdered By: SYSTEM SYSTEM on 02-18-2023 Troponin I.cardiac [Mass/Vol] 13.30 pg/mL Low 15.90 - 38.40 pg/mL [facility] Remisol Troponin I.cardiac [Mass/Vol] 12.90 pg/mL Low 15.90 - 38.40 pg/mL [facility] Remisol Troponin I.cardiac [Mass/Vol] 13.60 pg/mL Low 15.90 - 38.40 pg/mL [facility] Remisol Urea nitrogen/Creatinine [Mass ratio] 16 mg/mg Normal - [facility] Remisol COAGULATIONOrdered By: Nani King on 02-18-2023 PT Coag (PPP) [Time] 11.2 s Normal 9.4 - 12.5 second(s) [facility] Auto Coag CTA Cheston 02-18-2023 CTA Chest Normal [facility] Capillary Glucose POCon 02-09 Glucose [Mass/Vol] 173 mg/dL High 55-99 [facility] Comment on above: Result Comment: Ashley kati Meter Performed By: #### 2 37471029 ####[facility] [address] [place] [address] Glucose [Mass/Vol] 131 mg/dL High 55-99 [facility] Comment on above: Result Comment: Georgette palacios RN/ Performed By: #### 2 89697839 ####[facility] [address] [place] [address] Consent for Treatmenton 02-09 Consent for Treatment [id number]#1.00C D:127 Normal [facility] ED Clinical Summaryon 2022 ED Clinical Summary Normal [facility] ED Note-Physicianon 02-19-20 ED Note-Physician Normal [facility] Comment on above: Result Comment: Elec tronically Signed By: Kim Ledezma, Arturo Sarmiento.br\Date and Time Signed: 02/18/23 12:50 EDT ED Patient Education Noteon 02-18-2023 ED Patient Education Note Normal [facility] ED Patient Summaryon 023 ED Patient Summary Normal [facility] Family Medicine Office/Clini c Noteon 02-18-2023 Family Medicine Office/Clinic Note Normal [facility] Comment on above: Result Comment: Elec tronically Signed By: Mt GOODEN DO, FAAFP\Date and Time Signed: 02/18/23 08:47 EDT GetWell Education Videoon GetDueProps Education Video Yes Patient Avoiding Infections in the Hospital Normal [facility] Interdisciplinary Note - Raulito singon 02-18-2023 Interdisciplinary Note - Nursing Received wound consult, upon assessment no open areas noted. Patient and stated at times legs will weep. Order put in; May use ABD and Kerlex if legs begin to weep. Normal [facility] MagnesiumOrdered By: SYSTEM SYSTEM on 02-18-2023 Magnesium [Mass/Vol] 1.5 mg/dL Normal 1.3-2.[address] [facility] Remisol Comment on above: Performed By: #### 2 496796, 8343418, 86427271, 16391759, 2146085, 99748947, 58335048, 8831271 ####[facility] [address] [place] [address] Monitor Recordon 02-18-2023 Monitor Record [id number]#1.00 CD:127 Normal [facility] Monitor Record [id number]#1.00 CD:127 Normal [facility] Monitor Record [id number]#1.00 CD:127 Normal [facility] No Panel InformationOrdered By: ANGPROCESSSERVER MICROBIOLOGY on 02-18-2023 Blood Culture Charcoal No growth at 1 day. Final to follow at [address] [facility] PT & PTTon 02-18-2023 aPTT Coag (PPP) [Time] 29.6 second(s) Normal 25.1-36.5 [facility] Comment on above: Result Comment: Para meter [...] the same coagulation reagent and instrumentation as [facility]. Currently there are no coagulation studies available worldwide for children to 14 days, and no normal ranges. Heparin therapeutic range (represented by Anti-Factor Xa activity of 0.2 - 0.4 U/mL) corresponds to PTT of 56.6 - 109.0 sec. Performed By: #### 2 729680, 3292315, 88079743, 99671309, 6049565, 70117605, 30309159, 5783546 ####[facility] [place] [address] PT Coag (PPP) [Time] 11.2 second(s) Normal 9.4-12.5 [facility] Comment on above: Result Comment: 15 d [...] the same coagulation reagent and instrumentation as [facility]. Currently there are no coagulation studies available worldwide for children to 14 days, and no normal ranges. Performed By: #### 2 257162, 1713995, 47620598, 41188027, 5460873, 50311062, 11508692, 8294701 ####[facility] [address] [place] [address] PT & PTTOrdered By: Catalina King on 02-18-2023 INR Coag (PPP) [Relative time] 1.0 {INR} Invalid Interpretation Code [facility] Auto Coag Comment on above: Result Comment: INR results are specifically intended to assess patients stabilized on long-term Anticoagulation therapy suggested INR?s ?Less Intensive Anticoagulation? 2.0 ? 3.0Conventional Range 3.0 ? 4.5 Performed By: #### 2 259534, 5275201, 56852987, 76000330, 6571896, 99222799, 97581651, 9797246 ####[facility] [address] [place] [address] PTTon 02-18-2023 aPTT Coag (PPP) [Time] 98.5 second(s) Abnormal 25.1-36.5 [facility] Comment on above: Result Comment: Resu lts [...] the same coagulation reagent and instrumentation as [facility]. Currently there are no coagulation studies available worldwide for children to 14 days, and no normal ranges. Heparin therapeutic range (represented by Anti-Factor Xa activity of 0.2 - 0.4 U/mL) corresponds to PTT of 56.6 - 109.0 sec. Performed By: #### 2 582353 ####[facility] [address] [place] [address] Patient Educationon 02-19-20 23 Patient Education Normal [facility] Pre-Arrival Noteon 3 Pre-Arrival Note Normal [facility] Troponin 0 Hr.on 02-18-2023 Troponin I.cardiac [Mass/Vol] 12.00 pg/mL Low 15.90-38.40 [facility] Comment on above: Result Comment: The 95% CI (Confidence Interval) PPV (Positive Predictive Value) for myocardial infarction in females is 38 pg/mL, in males 51 pg/mL. The results should be used in conjunction with clinical conditions of myocardial infarction.(Unbounce High Sensitivity Troponin I Instructions For Use, [employer], March 2018) Performed By: #### 2 528087, 5936072, 28849377, 38851815, 7218679, 72994003, 03570736, 8756180 ####[facility] [address] [place] [address] Troponin 3 Hr.on 02-18-2023 Troponin I.cardiac [Mass/Vol] 13.60 pg/mL Low 15.90-38.40 [facility] Comment on above: Result Comment: The 95% CI (Confidence Interval) PPV (Positive Predictive Value) for myocardial infarction in females is 38 pg/mL, in males 51 pg/mL. The results should be used in conjunction with clinical conditions of myocardial infarction.(Access High Sensitivity Troponin I Instructions For Use, [employer]March 2018) Performed By: #### 1 3437654 ####[facility] [address] [place] [address] Troponin 6 Hr.on 02-18-2023 Troponin I.cardiac [Mass/Vol] 12.90 pg/mL Low 15.90-38.40 [facility] Comment on above: Result Comment: The 95% CI (Confidence Interval) PPV (Positive Predictive Value) for myocardial infarction in females is 38 pg/mL, in males 51 pg/mL. The results should be used in conjunction with clinical conditions of myocardial infarction.(Access High Sensitivity Troponin I Instructions For Use, [employer] 2018) Performed By: #### 1 5826851 ####[facility] [address] [place] [address] Troponin 9 Hr.on 02-18-2023 Troponin I.cardiac [Mass/Vol] 13.30 pg/mL Low 15.90-38.40 [facility] Comment on above: Result Comment: The 95% CI (Confidence Interval) PPV (Positive Predictive Value) for myocardial infarction in females is 38 pg/mL, in males 51 pg/mL. The results should be used in conjunction with clinical conditions of myocardial infarction.(Access High Sensitivity Troponin I Instructions For Use, [employer], March 2018) Performed By: #### 1 5858424 ####[facility] [address] [place] [address] US LE Venous Duplex Bilatera allison 02-18-2023 US LE Venous Duplex Bilateral Normal [facility] XR Abdomen 1 Viewon 02-19-20 XR Abdomen 1 View Normal [facility] XR Chest Single Viewon 02-18 XR Chest Single View Normal [facility] eGFROrdered By: SYSTEM ACTONE Synchronica on 02-18-2023 GFR/1.73 sq M.predicted among non-blacks MDRD (S/P/Bld) [Vol rate/Area] 89 mL/min/1.73 m2 Normal >=[address] [facility] Chem S Comment on above: Order Comment: Order added by Discern Expert. Result Comment: Instrumentation Technician cristo kidney disease could be indicated at eGFR's of less than 60 mL/min/1.73m2. Kidney failure is indicated at less than 15 mL/min/1.73m2. Performed By: #### 2 837610, 8521048, 19705442, 88259589, 2309689, 80137969, 92937792, 4441277 ####[facility] [address] [place] [address] Auto Diffon 02-15-2023 Basophils/100 WBC (Bld) 1.0 % Normal 0.0-2.0 [facility] Comment on above: Order Comment: Order Added by Discern Expert. Performed By: #### 2 305117, 0038742, 5790035 ####[address] [place] [address] Basophils/Leukocyte s Auto (Bld) [Pure # fraction] 0.1 E9/L Normal 0.0-0.2 [facility] Comment on above: Order Comment: Order Added by Discern Expert. Performed By: #### 2 431711, 4107883, 9112056 ####[address] [address] Eosinophils/100 WBC (Bld) 2.1 % Normal 0.0-8.0 [facility] Comment on above: Order Comment: Order Added by Discern Expert. Performed By: #### 2 600099, 5661284, 9306834 ####[address] [address] Eosinophils/Leukocy camden Auto (Bld) [Pure # fraction] 0.2 E9/L Normal 0.0-0.5 [facility] Comment on above: Order Comment: Order Added by Discern Expert. Performed By: #### 2 653833, 2613304, 6845877 ####[address] [address] Lymphocytes/100 WBC (Bld) 23.5 % Normal 14.0-50.0 [facility] Comment on above: Order Comment: Order Added by Discern Expert. Performed By: #### 2 698422, 8118979, 8231657 ####[address] [address] Lymphocytes/Leukocy camden Auto (Bld) [Pure # fraction] 1.9 E9/L Normal 1.0-4.0 [facility] Comment on above: Order Comment: Order Added by Rudi Expert. Performed By: #### 2 776504, 3518278, 3576373 ####[address] [address] Monocytes/100 WBC (Bld) 7.5 % Normal 4.0-14.0 [facility] Comment on above: Order Comment: Order Added by Discern Expert. Performed By: #### 2 153718, 2593159, 4647888 ####[address] [place] [address] Monocytes/Leukocyte s Auto (Bld) [Pure # fraction] 0.6 E9/L Normal 0.2-1.0 [facility] Comment on above: Order Comment: Order Added by Discern Expert. Performed By: #### 2 692122, 6234668, 6843878 ####[address] [address] Neutrophils/100 WBC (Bld) 65.9 % Normal 36.0-75.0 [facility] Comment on above: Order Comment: Order Added by Discern Expert. Performed By: #### 2 259259, 3570117, 2153656 ####[address] [address] Neutrophils/Leukocy camden Auto (Bld) [Pure # fraction] 5.2 E9/L Normal 2.0-7.5 [facility] Comment on above: Order Comment: Order Added by Discern Expert. Performed By: #### 2 094413, 6327413, 4003253 ####[address] [address] CBC w/ Auto Diffon 3 Erythrocyte distribution width (RBC) [Ratio] 15.1 % High 10.9-14.2 [facility] Comment on above: Performed By: #### 2 947239, 2437367, 4695207 ####[address] [address] Hematocrit (Bld) [Volume fraction] 44.1 % Normal 37.7-49.0 [facility] Comment on above: Performed By: #### 2 893622, 9298748, 4075093 ####[address] [address] Hemoglobin (Bld) [Mass/Vol] 14.7 g/dL Normal 13.5-17.5 [facility] Comment on above: Performed By: #### 2 559798, 9051554, 3103761 ####[place] [address] MCH (RBC) [Entitic mass] 30.8 pg Normal 27.0-34.0 [facility] Comment on above: Performed By: #### 2 101458, 2047732, 5599801 ####[facility] [address] [place] [address] MCHC (RBC) [Mass/Vol] 33.2 g/dL Normal 31.4-36.0 [facility] Comment on above: Performed By: #### 2 676465, 8103246, 8497375 ####[place] [address] MCV (RBC) [Entitic vol] 92.7 fL Normal 80.0-100.0 [facility] Comment on above: Performed By: #### 2 482382, 0275209, 1472804 ####[place] [address] Platelet mean volume (Bld) [Entitic vol] 8.3 fL Normal 6.4-10.8 [facility] Comment on above: Performed By: #### 2 364768, 0080836, 0450113 ####[place] [address] Platelets (Bld) [#/Vol] 177.0 E9/L Normal 150.0-500.0 [facility] Comment on above: Performed By: #### 2 683710, 2626636, 4115986 ####[place] [address] RBC (Bld) [#/Vol] 4.8 E12/L Normal 4.3-5.9 [facility] Comment on above: Performed By: #### 2 172832, 3324122, 0667852 ####[address] [address] WBC corrected for nucl RBC Auto (Bld) [#/Vol] 8.0 E9/L Normal 4.0-11.0 [facility] Comment on above: Performed By: #### 2 989388, 8727555, 8724726 ####[facility] [address] [place] [address] CHEMISTRYOrdered By: SYSTEM SYSTEM on 02-15-2023 Albumin [Mass/Vol] 3.9 g/dL Normal 3.3 - 5.0 gm/dL F [facility] Remisol Albumin/Globulin [Mass ratio] 1.0 [...] g/dL High 6.0 - 7.8 gm/dL F [facility] Remisol CHEMISTRYOrdered By: Gonzales William on 02-15-2023 HbA1c (Bld) [Mass fraction] 6.8 % High <=5.9% FT ChemAutoSS Consent for Treatmenton Consent for Treatment [id number]#1.00C D:127 Normal [facility] HEMATOLOGYOrdered By: SYSTEM SYSTEM on 02-15-2023 Basophils/100 [...] 177.0 E9/L Normal 150.0 - 500.0 E9/L [facility] HemeAutoSS RBC (Bld) [#/Vol] 4.8 E12/L Normal 4.3 - 5.9 E12/L [facility] HemeAutoSS WBC corrected for nucl RBC Auto (Bld) [#/Vol] 8.0 E9/L Normal 4.0 - 11.0 E9/L [facility] HemeAutoSS Hep Func Panelon 02-15-2023 Albumin [Mass/Vol] 3.9 g/dL Normal 3.3-5.0 [facility] Comment on above: Performed By: #### 2 864158, 7722378, 5058085 ####[facility] [address] [place] [address] Albumin/Globulin (S) [Mass conc ratio] 1.0 Low 1.1-2.2 [facility] Comment on above: Performed By: #### 2 470688, 6889417, 4042384 ####[address] [address] ALP [Catalytic activity/Vol] 66 Int._Unit/L Normal 21-98 [facility] Comment on above: Performed By: #### 2 547885, 0744400, 1890663 ####[address] [address] ALT No additional P-5'-P [Catalytic activity/Vol] 32 Int._Unit/L Normal 6-46 [facility] Comment on above: Performed By: #### 2 185394, 9796076, 2732887 ####[facility] [address] [place] [address] AST [Catalytic activity/Vol] 36 Int._Unit/L Normal 5-43 [facility] Comment on above: Performed By: #### 2 518885, 6798551, 1443525 ####[address] [place] [address] Bilirubin [Mass/Vol] 0.6 mg/dL Normal 0.0-1.1 [facility] Comment on above: Performed By: #### 2 730061, 3234693, 2227912 ####[address] [place] [address] Bilirubin.direct [Mass/Vol] 0.1 mg/dL Normal 0.1-0.4 [facility] Comment on above: Performed By: #### 2 894225, 1076188, 2053794 ####[address] [address] Bilirubin.indirect [Mass or moles/Vol] 0.5 mg/dL Normal 0.1-0.9 [facility] Comment on above: Performed By: #### 2 195483, 5868903, 0090049 ####[address] [address] Globulin (S) [Mass/Vol] 4.0 g/dL Normal 1.4-4.0 [facility] Comment on above: Performed By: #### 2 376147, 7416880, 1070655 ####[address] [address] Protein [Mass/Vol] 7.9 g/dL High 6.0-7.8 [facility] Comment on above: Performed By: #### 2 166496, 3687024, 5615664 ####[address] [address] FvbV2ncj 02-15-2023 HbA1c (Bld) [Mass fraction] 6.8 % High <=5.9 [facility] Comment on above: Performed By: #### 7 [id number] ####[address] [address] CNPShireen 2023 NEWTONN Telephone (RHEUMN) JAS GONZALEZ ([id number]) 1950 M DEF Date Time Provider Department [...] Status:Closed by JUMA MONK on 01/28/23 Normal [facility] CRP SerPl-mCncon 01-25-2023 CRP [Mass/Vol] 0.7 mg/dL Normal <0.9 [facility] Comment on above: Order Comment: Speci men Type: BLOOD SPECIMENOrdering Facility: [facility] Address: [address] [place] [address] Performed By: #### 1 988-5 ####[facility] [id number] [address] [place] ESR Westergren method (Bld) [Velocity]on 01-25-2023 ESR (Bld) [Velocity] 24 mm/h High 0-15 [facility] Comment on above: Order Comment: Speci men Type: BLOOD SPECIMENOrdering Facility: [facility] Address: [address] [place] [address] Performed By: #### 4 537-7 ####[facility] [id number] [address] [place] MRI SACRUM/COCCYX WO IVCONon [...] fat suppression and field inhomogeneity, and diminished yftjnt-aq-ngiwe ratio. SACROILIAC JOINTS: Apparent mild partial ankylosis [...] cyst. Marked lower lumbar spine degenerative changes. Pancake Professional: PSCB Transcribe Date/Time: Jan 25 2023 11:15A Dictated by : GAGE BLUM MD This examination was interpreted and the report reviewed and electronically signed by: GAGE BLUM MD on Jan 25 2023 12:05PM EST [id number] Normal [facility] Consent for Procedure/Surger yon 01-24-2023 Consent for Procedure/Surgery [id number]#1.00 CD:127 Normal [facility] Gastroenterology Office/Clin ic Noteon 01-24-2023 Gastroenterology Office/Clinic Note Normal [facility] Comment on above: Result Comment: Elec tronically Signed By: Zahra Barton\.br\Date and Time Signed: 01/23/23 12:42 EDT\.br\Electronically Co-Signed By: Joycelyn CHERRY MD\.br\Date and Time Co-Signed: 01/24/23 09:04 EDT Ambulatory Visit Summaryon 0 01-23-2023 Ambulatory Visit Summary Normal [address], [place] [address]- \.br\ Medications\.br\ What How Much When Why [...] Unchanged fluticasone nasal (Flonase 0.05 mg/ inh [place]) 2 Sprays Nasal Inhalation Every day Allergic [...] with hiatal hernia\.br\ High serum protein level\.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\.br\ Numbness [...] pulmonary embolus\.br\ kidney stones\.br\ Left shoulder pain\.br\ 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\.b r\ Lumbago\.br\ Lumbar radiculopathy, chronic\.br\ Morbid obesity due to excess calories\.br\ Obesity\.br\ Pulmonary embolism on right\.br\ Rib pain on right side\.br\ Spasm of muscle of lower back\.br\ Vertigo, benign paroxysmal\.br\ \.br\ [facility] Physician Orderon 12-18-2022 Physician Order [id number]#1.00C D:127 Normal [facility] Physician Order [id number]#1.00C D:127 Normal [facility] 12-17-2022 NEWTONN Telephone (RHEUMN) JAS GONZALEZ ([id number]) 1950 M DEF Date Time Provider Department [...] elsewhere classified [M53.3] Order(s):MRI SACRUM/COCCYX WO IVCON [9264801] Order #: [id number] FUTURE C-REACTIVE PROTEIN (CRP) [SQCRP] Order #: [id number] FUTURE SED RATE WESTERGREN [SQWSR] Order #: [id number] FUTURE Prescriptions as of 12/17/2022 - aspirin [...] Status:Closed by JUMA MONK on 12/17/22 Normal [facility] Ambulatory Visit Summaryon 0 12-10-2022 Ambulatory Visit Summary Invalid Interpretation Code [address] [place] [address]- \.br\ Saturday 11:00 AM EST \.br\ With:\.br\ Where: [facility] Primary Care [facility] Family Medicine Office/Clini c Noteon 12-10-2022 Family Medicine Office/Clinic Note Normal [facility] Comment on above: Result Comment: Elec tronically Signed By: Mt GOODEN DO, FAAFP\.br\Date and Time Signed: 12/10/22 10:50 EDT Patient Educationon 12-11-19 Patient Education Normal [facility] Consultation Noteon 12-09-19 Consultation Note [id number]#1.00CD :127 Normal [facility] CNOVon 12-05-2022 CNOV Office Visit (KRYSTIN ) JAS GONZALEZ ([id number]) 1950 M DEF Date Time Provider Department 12/05/22 1:00 PM JUMA MONK During your visit today, we recorded the following information about you: Pulse Respiration Blood pressure Weight 83/minute 18/minute 118/74 154.2 kg Juma Monk MD 12/05/2022 1:29 PM Signed [facility] Date of Service: 12/05/2022 Patient: Jas Gonzalez Medical Record: [id number] Primary Care Physician: No primary care provider [...] Social Hist (more content not included)... Normal [facility] Coding Summary.on 12-05-2022 Coding Summary. 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 Pancake Professional: PSCB Transcribe Date/Time: Dec 06 2022 2:43P Dictated by : GAGE BLUM MD This examination was interpreted and the report reviewed and electronically signed by: GAGE BLUM MD on Dec 06 2022 2:46PM EST [id number] Normal [facility] CNPShireen 12-04-2022 NEWTONN Telephone (KRYSTIN) JAS GONZALEZ ([id number]) 1950 M DEF Date Time Provider Department [...] Status:Closed by ANGIE LARA on 12/04/22 Normal [facility] ABO/Rhon 12-02-2022 ABO/Rh Positive Invalid Interpretation Code [facility] Comment on above: Performed By: #### 2 459695, 12061158, 33044529, 97411181 ####[facility] [address] [place] [address] ABO/Rh History Checkon 12-02 ABO/Rh History Check Patient discharged prior Normal [facility] Comment on above: Performed By: #### 2 870896, 04465025, 17942772, 35755050 ####[address] [place] [address] ABSCon 12-02-2022 ABSC Gel Interp Negative Normal [facility] Comment on above: Performed By: #### 2 349407, 63832563, 92027257, 90223290 ####[address] [place] [address] Auto Diffon 12-02-2022 Basophils/100 WBC (Bld) 0.6 % Normal 0.0-2.0 [facility] Comment on above: Order Comment: Order Added by Discern Expert. Performed By: #### 2 329114, 70590343, 3797255, 8531537, 74934103, 2788827 ####[address] [address] Basophils/Leukocyte s Auto (Bld) [Pure # fraction] 0.0 E9/L Normal 0.0-0.2 [facility] Comment on above: Order Comment: Order Added by Discern Expert. Performed By: #### 2 445162, 51021973, 3224508, 2003994, 48563588, 8332733 ####[address] [place] [address] Eosinophils/100 WBC (Bld) 1.9 % Normal 0.0-8.0 [facility] Comment on above: Order Comment: Order Added by Discern Expert. Performed By: #### 2 444332, 79345064, 7097980, 5421692, 49599323, 0837185 ####[address] [place] [address] Eosinophils/Leukocy cam[place] Auto (Bld) [Pure # fraction] 0.1 E9/L Normal 0.0-0.5 [facility] Comment on above: Order Comment: Order Added by Discern Expert. Performed By: #### 2 421443, 19215700, 6788561, 8336937, 11798186, 7338272 ####[address] [place] [address] Lymphocytes/100 WBC (Bld) 28.4 % Normal 14.0-50.0 [facility] Comment on above: Order Comment: Order Added by Discern Expert. Performed By: #### 2 394709, 07824588, 2076939, 1253890, 12806808, 3888953 ####[address] [place] [address] Lymphocytes/Leukocy [place] Auto (Bld) [Pure # fraction] 1.5 E9/L Normal 1.0-4.0 [facility] Comment on above: Order Comment: Order Added by Discern Expert. Performed By: #### 2 459385, 78750683, 0400651, 5209931, 64296457, 9581173 ####[address] [address] Monocytes/100 WBC (Bld) 9.3 % Normal 4.0-14.0 [facility] Comment on above: Order Comment: Order Added by Discern Expert. Performed By: #### 2 705625, 48771531, 5346608, 5375891, 40864487, 1182598 ####[address] [address] Monocytes/Leukocyte s Auto (Bld) [Pure # fraction] 0.5 E9/L Normal 0.2-1.0 [facility] Comment on above: Order Comment: Order Added by Discern Expert. Performed By: #### 2 773617, 34932806, 9163667, 4095573, 46745836, 9451738 ####[address] [place] [address] Neutrophils/100 WBC (Bld) 59.8 % Normal 36.0-75.0 [facility] Comment on above: Order Comment: Order Added by Discern Expert. Performed By: #### 2 018149, 04258106, 7520052, 9377927, 80043507, 2955787 ####[address] [address] Neutrophils/Leukocy [place] Auto (Bld) [Pure # fraction] 3.1 E9/L Normal 2.0-7.5 [facility] Comment on above: Order Comment: Order Added by Discern Expert. Performed By: #### 2 784437, 36832356, 9078614, 6950357, 46882727, 8906798 ####[facility] [address] [place] [address] BLOOD BANKOrdered By: Keturah Bar on 12-02-2022 ABO/Rh Interp Positive Invalid Interpretation Code [facility] BB Subsection ABSC Gel Interp Negative (12/02/22 1:07 PM) Normal [facility] BB Subsection BMPon 12-02-2022 Creatinine [Mass/Vol] 0.9 mg/dL Normal 0.5-1.3 [facility] Comment on above: Performed By: #### 2 306832, 26678815, 0776608, 1923777, 26030514, 8162605 ####[facility] [address] [place] [address] Urea nitrogen [Mass/Vol] 14 mg/dL Normal 5-21 [facility] Comment on above: Performed By: #### 2 944355, 70647514, 6258285, 6301175, 32590230, 5838593 ####[facility] [address] [place] [address] Urea nitrogen/Creatinine [Mass ratio] 16 No Units Normal 10-20 [facility] Comment on above: Performed By: #### 2 372207, 24105740, 4653244, 9480454, 65618780, 2688148 ####[facility] [address] [place] [address] Anion gap [Moles/Vol] 10 mmol/L Normal 6-16 [facility] Comment on above: Performed By: #### 2 929341, 17193226, 0597726, 4479349, 62258579, 3319086 ####[facility] [address] [place] [address] Calcium [Mass/Vol] 8.9 mg/dL Normal 8.9-11.1 [facility] Comment on above: Performed By: #### 2 859610, 90643083, 3004640, 8843743, 36710853, 3446289 ####[facility] [address] [place] [address] Chloride [Moles/Vol] 98 mmol/L Low 101-111 [facility] Comment on above: Performed By: #### 2 970930, 04827515, 6077779, 6277547, 17335136, 1291264 ####[facility] [address] [place] [address] CO2 [Moles/Vol] 30 mmol/L Normal 21-31 [facility] Comment on above: Performed By: #### 2 133193, 67313386, 8733851, 4251110, 00887185, 8819850 ####[facility] [address] [place] [address] Glucose [Mass/Vol] 137 mg/dL Normal 55-199 [facility] Comment on above: Result Comment: If t his glucose result represents a fasting glucose, interpretation should refer to the following reference range: 55-99 mg/dL Performed By: #### 2 164715, 25587154, 5375068, 9660671, 77538933, 4716074 ####[facility] [address] [place] [address] Potassium [Moles/Vol] 3.6 mmol/L Normal 3.5-5.3 [facility] Comment on above: Performed By: #### 2 072702, 05838887, 0396524, 8726683, 43753076, 6124211 ####[facility] [address] [place] [address] Sodium [Moles/Vol] 134 mmol/L Low 135-145 [facility] Comment on above: Performed By: #### 2 976430, 21533122, 8373344, 5255498, 04243416, 3732169 ####[facility] [address] Blood Bank ID#on 12-02-2022 BBID# [id number] Invalid Interpretation Code [facility] Comment on above: Performed By: #### 2 249746, 14064703, 00136377, 62912878 ####[address] [address] CBC w/ Auto Diffon Erythrocyte distribution width (RBC) [Ratio] 13.9 % Normal 10.9-14.2 [facility] Comment on above: Performed By: #### 2 392847, 39369707, 0370306, 3105738, 01357365, 2694966 ####[address] [address] Hematocrit (Bld) [Volume fraction] 44.1 % Normal 37.7-49.0 [facility] Comment on above: Performed By: #### 2 650772, 75326104, 3382601, 3755924, 22914008, 2239229 ####[address] [address] Hemoglobin (Bld) [Mass/Vol] 14.5 g/dL Normal 13.5-17.5 [facility] Comment on above: Performed By: #### 2 811009, 76906027, 3150263, 8400893, 80488987, 2198052 ####[address] [address] MCH (RBC) [Entitic mass] 30.7 pg Normal 27.0-34.0 [facility] Comment on above: Performed By: #### 2 041624, 90734571, 1362213, 6405733, 90052725, 3648334 ####[address] [address] MCHC (RBC) [Mass/Vol] 32.9 g/dL Normal 31.4-36.0 [facility] Comment on above: Performed By: #### 2 134023, 01133876, 7182564, 7127844, 66975851, 8281580 ####[facility] [address] [place] [address] MCV (RBC) [Entitic vol] 93.1 fL Normal 80.0-100.0 [facility] Comment on above: Performed By: #### 2 888785, 27143535, 3343635, 1077474, 44936544, 2035879 ####[address] [place] [address] Platelet mean volume (Bld) [Entitic vol] 8.2 fL Normal 6.4-10.8 [facility] Comment on above: Performed By: #### 2 945414, 50409411, 8721252, 7103917, 71107484, 4711682 ####[address] [address] Platelets (Bld) [#/Vol] 135.0 E9/L Low 150.0-500.0 [facility] Comment on above: Performed By: #### 2 653123, 16794311, 6426425, 0231520, 52859179, 7936417 ####[address] [address] RBC (Bld) [#/Vol] 4.7 E12/L Normal 4.3-5.9 [facility] Comment on above: Performed By: #### 2 048713, 69069656, 3734894, 9421692, 28614254, 3570169 ####[address] [place] [address] WBC corrected for nucl RBC Auto (Bld) [#/Vol] 5.2 E9/L Normal 4.0-11.0 [facility] Comment on above: Performed By: #### 2 669187, 00352085, 4097027, 7853554, 73528016, 5039043 ####[address] [place] [address] CHEMISTRYOrdered By: SYSTEM SYSTEM on 04-23-2023 Albumin [...] 14 mg/dL Normal 5 - 21 mg/dL [facility] Remisol Urea nitrogen/Creatinine [Mass ratio] 16 mg/mg Normal 10 - [address] [facility] Remisol COAGULATIONOrdered By: Brandie Sams on 12-02-2022 aPTT Coag (PPP) [Time] 32.2 s Normal 25.1 - 36.5 second(s) [facility] Auto Coag INR Coag (PPP) [Relative time] 1.1 {INR} Invalid Interpretation Code [facility] Auto Coag PT Coag (PPP) [Time] 11.8 s Normal 9.4 - 12.5 second(s) [facility] Auto Coag Consent for Treatmenton 11-11 Consent for Treatment [id number]#1.00C D:127 Normal [facility] Discharge Instructionson Discharge Instructions [id number]#1.00CD :127 Normal [facility] ED Clinical Summaryon 2022 ED Clinical Summary Normal [facility] ED Note-Physicianon 12-03-19 ED Note-Physician Normal [facility] Comment on above: Result Comment: Elec tronically Signed By: Severo Mcnair PA-C\.br\Date and Time Signed: 12/02/22 16:04 EDT\.br\Electronically Co-Signed By: Arturo Alvarez M.D.\.br\Date and Time Co-Signed: 12/02/22 18:18 EDT ED Patient Education Noteon 12-02-2022 ED Patient Education Note Normal [facility] ED Patient Summaryon 023 ED Patient Summary Normal [facility] HEMATOLOGYOrdered By: SYSTEM SYSTEM on 12-02-2022 Basophils/100 [...] 93.1 fL Normal 80.0 - 100.[address] [facility] HemeAutoSS Platelet mean volume (Bld) [Entitic vol] 8.2 fL Normal 6.4 - 10.[address] [facility] HemeAutoSS Platelets (Bld) [#/Vol] 135.0 E9/L Low 150.0 - 500.0 E9/L [facility] HemeAutoSS RBC (Bld) [#/Vol] 4.7 E12/L Normal 4.3 - 5.9 E12/L FT HemeAutoSS WBC corrected for nucl RBC Auto (Bld) [#/Vol] 5.2 E9/L Normal 4.0 - 11.0 E9/L [facility] HemeAutoSS Hep Func Panelon 12-02-2022 Bilirubin.indirect [Mass or moles/Vol] UTC Abnormal 0.1-0.9 [facility] Comment on above: Result Comment: Resu lt verified by Discern Rule. Performed result UTC (Unable to Calculate) was sent as an Alpha code due the inability to calculate a valid numeric value. Performed By: #### 2 181123, 82406028, 8016509, 9368641, 14289185, 9752870 ####[facility] [address] [place] [address] Albumin [Mass/Vol] 3.5 g/dL Normal 3.3-5.0 [facility] Comment on above: Performed By: #### 2 899827, 59492185, 5000005, 8700508, 78479093, 1786118 ####[facility] [address] [place] [address] Albumin/Globulin (S) [Mass conc ratio] 1.0 Low 1.1-2.2 [facility] Comment on above: Performed By: #### 2 573531, 99704195, 9843405, 7202391, 17530823, 7541617 ####[facility] [address] [place] [address] ALP [Catalytic activity/Vol] 55 Int._Unit/L Normal 21-98 [facility] Comment on above: Performed By: #### 2 407631, 99660133, 0344057, 7056017, 27440097, 6533944 ####[facility] [address] [place] [address] ALT No additional P-5'-P [Catalytic activity/Vol] 37 Int._Unit/L Normal 6-46 [facility] Comment on above: Performed By: #### 2 005119, 35527939, 0044837, 7513828, 84008969, 9267057 ####[address] [place] [address] AST [Catalytic activity/Vol] 44 Int._Unit/L High 5-43 [facility] Comment on above: Performed By: #### 2 631335, 12710191, 2886342, 6870117, 59682401, 0976499 ####[address] [address] Bilirubin [Mass/Vol] 0.4 mg/dL Normal 0.0-1.1 [facility] Comment on above: Performed By: #### 2 444309, 60377203, 2694780, 2644532, 72048495, 1993005 ####[address] [address] Bilirubin.direct [Mass/Vol] mg/dL Normal 0.1-0.4 [facility] Comment on above: Performed By: #### 2 655852, 10535845, 4364735, 1207513, 48678860, 6023515 ####[address] [address] Globulin (S) [Mass/Vol] 3.5 g/dL Normal 1.4-4.0 [facility] Comment on above: Performed By: #### 2 820955, 33195281, 0257775, 0494151, 82185834, 4539868 ####[address] [place] [address] Protein [Mass/Vol] 7.0 g/dL Normal 6.0-7.8 [facility] Comment on above: Performed By: #### 2 168395, 97118042, 2908884, 1997087, 84466169, 4966373 ####[facility] [address] [place] [address] MICRO OTHER TESTSOrdered By: Kelly Laucurly on 12-02-2022 Occult Bld Stl Positive *ABN* (12/02/22 3:01 PM) Invalid Interpretation Code Negative [facility] Man Sero PT & PTTon 12-02-2022 aPTT Coag (PPP) [Time] 32.2 second(s) Normal 25.1-36.5 [facility] Comment on above: Result Comment: Para meter [...] the same coagulation reagent and instrumentation as [facility]. Currently there are no coagulation studies available worldwide for children to 14 days, and no normal ranges. Heparin therapeutic range (represented by Anti-Factor Xa activity of 0.2 - 0.4 U/mL) corresponds to PTT of 56.6 - 109.0 sec. Performed By: #### 2 807698, 64397364, 4360062, 2496973, 96218661, 0546921 ####[facility] [address] [place] [address] INR Coag (PPP) [Relative time] 1.1 {INR} Invalid Interpretation Code [facility] Comment on above: Result Comment: INR results are specifically intended to assess patients stabilized on long-term Anticoagulation therapy suggested INR?s ?Less Intensive Anticoagulation? 2.0 ? 3.0Conventional Range 3.0 ? 4.5 Performed By: #### 2 773882, 08711324, 4560036, 7087684, 84601932, 7953764 ####[facility] [address] [place] [address] PT Coag (PPP) [Time] 11.8 second(s) Normal 9.4-12.5 [facility] Comment on above: Result Comment: 15 d [...] the same coagulation reagent and instrumentation as [facility]. Currently there are no coagulation studies available worldwide for children to 14 days, and no normal ranges. Performed By: #### 2 322367, 61718408, 8446718, 3822017, 51224729, 3753030 ####[facility] [address] [place] [address] Stl Oclt Bldon 12-02-2022 Occult Bld Stl Positive Abnormal Negative [facility] Comment on above: Performed By: #### 2 9482061 ####[facility] [address] [place] [address] eGFRon 12-02-2022 GFR/1.73 sq M.predicted among blacks MDRD (S/P/Bld) [Vol rate/Area] mL/min/{1.73_m2} Normal >=59 [facility] Comment on above: Order Comment: Order added by Discern Expert. Result Comment: eGFR is race adjusted. AA=. Performed By: #### 2 901216, 43460793, 6795571, 9265406, 32602606, 8223169 ####[facility] [address] [place] [address] GFR/1.73 sq M.predicted among non-blacks MDRD (S/P/Bld) [Vol rate/Area] mL/min/{1.73_m2} Normal >=59 [facility] Comment on above: Order Comment: Order added by Discern Expert. Result Comment: Instrumentation Technician cristo kidney disease could be indicated at eGFR's of less than 60 mL/min/1.73m2. Kidney failure is indicated at less than 15 mL/min/1.73m2. Performed By: #### 2 284723, 07516472, 3970263, 2096305, 23363389, 7343905 ####[facility] [address] [place] [address] Coding Summary.on 11-30-2022 Coding Summary. [facility] Consent for Treatmenton 11-11 Consent for Treatment [id number]#1.00CD :127 [facility] Consultation Noteon 11-30-19 Consultation Note Normal [facility] Comment on above: Result Comment: Elec tronically Signed By: Georgi ESPINAL, Pawan\.br\Date and Time Signed: 11/29/22 10:31 EDT Office/Clinic Note-Physician on 11-29-2022 Office/Clinic Note-Physician [id number]#1.00 CD:127 Normal [facility] Patient Correspondenceon Patient Correspondence [id number]#1.00 CD:127 Normal [facility] Patient History Officeon Patient History Office [id number]#1.00 CD:127 [facility] Transfer Inon 11-26-2022 Transfer In [id number]#1.00C D:127 [facility] Coding Summary.on 11-24-2022 Coding Summary. Normal [facility] US Aorta Completeon 11-21-19 US Aorta Complete Normal [facility] Consent for Treatmenton 11-10 Consent for Treatment [id number]#1.00C D:127 [facility] Consultation Noteon 11-18-19 Consultation Note [id number]#1.00C D:127 [facility] Auth for Release of Medical Recordson 11-16-2022 Auth for Release of Medical Records [id number]#1.00C D:127 [facility] CNOVon 11-14-2022 CNOV Office Visit (KRYSTIN ) JAS GONZALEZ ([id number]) 1950 M DEF Date Time Provider Department 11/14/22 1:30 PM JUMA MONK During your visit today, we recorded the following information about you: Pulse Blood pressure Weight Height 73/minute 121/63 151.5 kg 1.854 m Juma Monk MD 11/16/2022 9:45 AM Signed [facility] Date of Service: 11/14/2022 Patient: Jas Gonzalez Medical Record: [id number] Primary Care Physician: No primary care provider [...] 144 mmol/L (more content not included)... Normal [facility] Family Medicine Office/Clini c Noteon 11-08-2022 Family Medicine Office/Clinic Note Normal [facility] Comment on above: Result Comment: Elec tronically Signed By: Mt GOODEN DO, FAAFP\kelvin\Date and Time Signed: 11/08/22 10:50 EDT Patient Educationon 11-09-19 Patient Education Normal [facility] Coding Summary.on 10-29-2022 Coding Summary. Normal [facility] CHEMISTRYOrdered By: Lab ROP User on 10-24-2022 Glucose [Mass/Vol] 138 mg/dL High 55 - 99 mg/dL FT C POC Subsection POC Device SN [id number] Invalid Interpretation Code [facility] POC Subsection POC User ID [id number] Invalid Interpretation Code [facility] POC Subsection POC Username LESLIE AUGUSTINE Invalid Interpretation Code [facility] POC Subsection Capillary Glucose POCon 10-10 Glucose [Mass/Vol] 138 mg/dL High 55-99 [facility] Comment on above: Performed By: #### 2 [id number] ####[facility] [address] [place] [address] Consent for Procedure/Surger yon 10-24-2022 Consent for Procedure/Surgery [id number]#1.00 CD:127 [facility] Consent for Treatmenton 10-10 Consent for Treatment [id number]#1.00C D:127 Normal [facility] Consultation Noteon 10-25-19 23 Consultation Note [id number]#1.00C D:127 Normal [facility] Consultation Note [id number]#1.00C D:127 [facility] Discharge Instructionson Discharge Instructions [id number]#1.00 CD:127 Normal [facility] IntraOperative Documentson 0 10-24-2022 IntraOperative Documents [id number]#1.00 CD:127 [facility] IntraOperative Documents [id number]#1.00 CD:127 [facility] Main OR Intraoperative Recor don 10-24-2022 Main OR Intraoperative Record [facility] Main OR Preoperative Recordo n 10-24-2022 Main OR Preoperative Record [facility] Operative Reporton Operative Report [facility] Comment on above: Result Comment: Elec tronically Signed By: Pawan Laureano MD\.br\Date and Time Signed: 10/24/22 19:25 EDT Patient Correspondenceon Patient Correspondence [id number]#1.00CD :127 [facility] Coding Summary.on 10-01-2022 Coding Summary. [facility] Consultation Noteon 09-29-19 Consultation Note [facility] Comment on above: Result Comment: Elec tronically Signed By: Pawan Laureano MD\.br\Date and Time Signed: 09/29/22 20:14 EST Consent for Treatmenton 09-12 Consent for Treatment [id number]#1.00C D:127 [facility] Office/Clinic Note-Physician on 09-27-2022 Office/Clinic Note-Physician [id number]#1.00C D:127 [facility] Patient Correspondenceon Patient Correspondence [id number]#1.00C D:127 [facility] Patient History Officeon Patient History Office [id number]#1.00C D:127 [facility] Physician Orderon 09-27-2022 Physician Order [id number]#1.00C D:127 [facility] Consent for Treatmenton Consent for Treatment [id number]#1.00C D:127 [facility] Auth for Release of Medical Recordson 09-17-2022 Auth for Release of Medical Records [id number]#1.00C D:127 [facility] Ambulatory Visit Summaryon 09-14-2022 Ambulatory Visit Summary Normal [address], [place] [address]- \.br\ You Need to Schedule the Following Appointments\.br\ Follow Up with Perla LEE, BEATRIZ Oneil PED When: Within 1 month, only if needed\.br\ Comments:\.br\ 40 mins\.br\ Where:\.br\ [address], [address]br\ [place] [address]\.br\ Medications\.br\ What How Much When Why Instructions\.br\ [...] with hiatal hernia\.br\ High serum protein level\.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\.br\ Numbness [...] pulmonary embolus\.br\ kidney stones\.br\ Left shoulder pain\.br\ [facility] (current) use of anticoagulants\.b r\ Lumbago\.br\ Lumbar radiculopathy, chronic\.br\ Morbid obesity due to excess calories\.br\ Obesity\.br\ Pulmonary embolism on right\.br\ Rib pain on right side\.br\ Spasm of muscle of lower back\.br\ Vertigo, benign paroxysmal\.br\ \.br\ [facility] Family Medicine Office/Clini c Noteon 09-14-2022 Family Medicine Office/Clinic Note Normal [facility] Comment on above: Result Comment: Elec tronically Signed By: Thao Duncan DO\.br\Date and Time Signed: 09/14/22 18:35 EST Coding Summary.on 09-12-2022 Coding Summary. Normal [facility] Coding Summary. Normal [facility] Auto Diffon 09-10-2022 Basophils/100 WBC (Bld) 0.8 % Normal 0.0-2.0 [facility] Comment on above: Order Comment: Order Added by Discern Expert. Performed By: #### 1 0825702, 52350441, 8020416, 1791182, 2103617, 8488611, 9697069 ####[facility] [address] [place] [address] Basophils/Leukocyte s Auto (Bld) [Pure # fraction] 0.1 E9/L Normal 0.0-0.2 [facility] Comment on above: Order Comment: Order Added by Discern Expert. Performed By: #### 1 0418326, 26916948, 4340051, 6403241, 2122935, 9473560, 0267522 ####[address] [place] [address] Eosinophils/100 WBC (Bld) 1.7 % Normal 0.0-8.0 [facility] Comment on above: Order Comment: Order Added by Discern Expert. Performed By: #### 1 7193287, 38271971, 1058244, 3305560, 2368853, 0973557, 3002425 ####[address] [place] [address] Eosinophils/Leukocy camden Auto (Bld) [Pure # fraction] 0.1 E9/L Normal 0.0-0.5 [facility] Comment on above: Order Comment: Order Added by Discern Expert. Performed By: #### 1 0551199, 96718825, 6105082, 0908012, 4865345, 8113224, 9217134 ####[address] [address] Lymphocytes/100 WBC (Bld) 34.3 % Normal 14.0-50.0 [facility] Comment on above: Order Comment: Order Added by Discern Expert. Performed By: #### 1 5504101, 60277820, 1429309, 6310753, 5524773, 8443795, 2512325 ####[address] [address] Lymphocytes/Leukocy camden Auto (Bld) [Pure # fraction] 2.2 E9/L Normal 1.0-4.0 [facility] Comment on above: Order Comment: Order Added by Discern Expert. Performed By: #### 1 6415401, 21266580, 5767880, 7321260, 5644946, 1832847, 4035746 ####[address] [place] [address] Monocytes/100 WBC (Bld) 7.4 % Normal 4.0-14.0 [facility] Comment on above: Order Comment: Order Added by Discern Expert. Performed By: #### 1 2170105, 42050060, 6587510, 4628986, 7942904, 0907940, 9030550 ####[facility] [address] [place] [address] Monocytes/Leukocyte s Auto (Bld) [Pure # fraction] 0.5 E9/L Normal 0.2-1.0 [facility] Comment on above: Order Comment: Order Added by Discern Expert. Performed By: #### 1 0331011, 18339706, 9625136, 2225995, 4613359, 3960742, 2591188 ####[facility] [address] [place] [address] Neutrophils/100 WBC (Bld) 55.8 % Normal 36.0-75.0 [facility] Comment on above: Order Comment: Order Added by Discern Expert. Performed By: #### 1 1147986, 21763548, 7799322, 4194498, 5547311, 6674785, 4096989 ####[address] [place] [address] Neutrophils/Leukocy camden Auto (Bld) [Pure # fraction] 3.6 E9/L Normal 2.0-7.5 [facility] Comment on above: Order Comment: Order Added by Discern Expert. Performed By: #### 1 8727870, 51049085, 7581867, 9320969, 9812800, 3105102, 9897683 ####[facility] [address] [place] [address] BMPon 09-10-2022 Anion gap [Moles/Vol] 11 mmol/L Normal 6-16 [facility] Comment on above: Performed By: #### 1 8867467, 89160931, 3080871, 3785269, 2235131, 0970402, 4637435 ####[facility] [address] [place] [address] Calcium [Mass/Vol] 9.4 mg/dL Normal 8.9-11.1 [facility] Comment on above: Performed By: #### 1 7436278, 06434410, 7473568, 8768865, 0407796, 3561657, 5992676 ####[facility] [address] [place] [address] Chloride [Moles/Vol] 101 mmol/L Normal 101-111 [facility] Comment on above: Performed By: #### 1 1456889, 15817785, 4964729, 9024825, 4735164, 2017360, 7549314 ####[facility] [address] [place] [address] CO2 [Moles/Vol] 30 mmol/L Normal 21-31 [facility] Comment on above: Performed By: #### 1 2854001, 49211917, 5603693, 2471095, 9299512, 6894046, 4289248 ####[facility] [address] [place] [address] Creatinine [Mass/Vol] 0.9 mg/dL Normal 0.5-1.3 [facility] Comment on above: Performed By: #### 1 2818926, 73366251, 0872765, 6264605, 1268238, 5763741, 7996650 ####[facility] [address] [place] [address] Glucose [Mass/Vol] 119 mg/dL Normal 55-199 [facility] Comment on above: Result Comment: If t his glucose result represents a fasting glucose, interpretation should refer to the following reference range: 55-99 mg/dL Performed By: #### 1 0430325, 91501007, 5175999, 7997221, 0085350, 9817271, 1859219 ####[facility] [address] [place] [address] Potassium [Moles/Vol] 4.0 mmol/L Normal 3.5-5.3 [facility] Comment on above: Performed By: #### 1 5623365, 44851730, 3236520, 7682183, 1772123, 5464030, 5816660 ####[facility] [address] [place] [address] Sodium [Moles/Vol] 138 mmol/L Normal 135-145 [facility] Comment on above: Performed By: #### 1 5434883, 69561101, 7088202, 1291243, 4748357, 0709593, 2651842 ####[facility] [address] [place] [address] Urea nitrogen [Mass/Vol] 17 mg/dL Normal 5-21 [facility] Comment on above: Performed By: #### 1 7926609, 66321991, 7083327, 2458404, 9591784, 6841658, 1398704 ####[facility] [address] [place] [address] Urea nitrogen/Creatinine [Mass ratio] 19 No Units Normal 10-20 [facility] Comment on above: Performed By: #### 1 3594614, 59113774, 2569763, 0803112, 4765900, 7127392, 5622245 ####[facility] [address] CBC w/ Auto Diffon 3 Erythrocyte distribution width (RBC) [Ratio] 14.5 % High 10.9-14.2 [facility] Comment on above: Performed By: #### 1 0182118, 57513903, 8691934, 2836278, 7888997, 7705413, 5042012 ####[facility] [address] [place] [address] Hematocrit (Bld) [Volume fraction] 45.0 % Normal 37.7-49.0 [facility] Comment on above: Performed By: #### 1 1956014, 70150225, 5696099, 5929695, 0097164, 5088430, 2192643 ####[facility] [address] [place] [address] Hemoglobin (Bld) [Mass/Vol] 14.6 g/dL Normal 13.5-17.5 [facility] Comment on above: Performed By: #### 1 9853802, 20581069, 8226575, 9829553, 8293151, 0873461, 4791494 ####[facility] [address] [place] [address] MCH (RBC) [Entitic mass] 30.8 pg Normal 27.0-34.0 [facility] Comment on above: Performed By: #### 1 8548164, 22300789, 6808071, 6221578, 1509130, 4880175, 6471605 ####[facility] [address] [place] [address] MCHC (RBC) [Mass/Vol] 32.5 g/dL Normal 31.4-36.0 [facility] Comment on above: Performed By: #### 1 2232591, 16800788, 0732939, 1411385, 7635445, 4074415, 5643702 ####[address] [address] MCV (RBC) [Entitic vol] 94.6 fL Normal 80.0-100.0 [facility] Comment on above: Performed By: #### 1 8215584, 66483510, 6619900, 4334665, 5063354, 8431870, 9087674 ####[address] [address] Platelet mean volume (Bld) [Entitic vol] 8.3 fL Normal 6.4-10.8 [facility] Comment on above: Performed By: #### 1 9268621, 46842049, 4705417, 6165322, 2283413, 4404793, 3680998 ####[address] [address] Platelets (Bld) [#/Vol] 159.0 E9/L Normal 150.0-500.0 [facility] Comment on above: Performed By: #### 1 5339879, 54226958, 4859857, 4169503, 7889471, 9508845, 3088072 ####[address] [address] RBC (Bld) [#/Vol] 4.8 E12/L Normal 4.3-5.9 [facility] Comment on above: Performed By: #### 1 8896683, 05257048, 5393299, 6662675, 0748784, 8507312, 0202615 ####[facility] [address] [place] [address] WBC corrected for nucl RBC Auto (Bld) [#/Vol] 6.4 E9/L Normal 4.0-11.0 [facility] Comment on above: Performed By: #### 1 7778468, 94070766, 1436181, 1668944, 7886992, 7980388, 7999204 ####[facility] [address] [place] [address] CHEMISTRYOrdered By: Elma Person on 09-10-2022 Albumin [...] [Vol rate/Area] mL/min/1.73 m2 Normal >=59mL/min/1.[address] [facility] Chem S GFR/1.73 sq M.predicted among non-blacks MDRD (S/P/Bld) [Vol rate/Area] mL/min/1.73 m2 Normal >=59mL/min/1.[address] [facility] Chem S Globulin (S) [Mass/Vol] 3.8 g/dL [...] ratio] 19 mg/mg Normal 10 - [address] [facility] Remisol CHEMISTRYOrdered By: Alia Heart on 09-10-2022 HbA1c (Bld) [Mass fraction] 6.3 % High <=5.9% [facility] ChemAutoSS Consent for Treatmenton 08-14 Consent for Treatment [id number]#1.00C D:127 Normal [facility] Consent for Treatment [id number]#1.00C D:127 Normal [facility] HEMATOLOGYOrdered By: SYSTEM SYSTEM on 09-10-2022 Basophils/100 [...] 3.6 E9/L Normal 2.0 - 7.5 E9/L [facility] HemeAutoSS HEMATOLOGYOrdered By: Chloe Reynolds on 09-10-2022 Erythrocyte distribution width (RBC) [Ratio] 14.5 % High 10.9 - 14.2 % FT HemeAutoSS Hematocrit (Bld) [Volume fraction] 45.0 % Normal 37.7 - 49.0 % FT HemeAutoSS Hemoglobin (Bld) [Mass/Vol] 14.6 g/dL Normal 13.5 - 17.5 gm/dL [facility] HemeAutoSS MCH (RBC) [Entitic mass] 30.8 pg Normal 27.0 - 34.0 pg FT HemeAutoSS MCHC (RBC) [Mass/Vol] 32.5 g/dL Normal 31.4 - 36.0 gm/dL FT HemeAutoSS MCV (RBC) [Entitic vol] 94.6 fL Normal 80.0 - 100.0 fL FT HemeAutoSS Platelet mean volume (Bld) [Entitic vol] 8.3 fL Normal 6.4 - 10.[address] [facility] HemeAutoSS Platelets (Bld) [#/Vol] 159.0 E9/L Normal 150.0 - 500.0 E9/L [facility] HemeAutoSS RBC (Bld) [#/Vol] 4.8 E12/L Normal 4.3 - 5.9 E12/L [facility] HemeAutoSS WBC corrected for nucl RBC Auto (Bld) [#/Vol] 6.4 E9/L Normal 4.0 - 11.0 E9/L [facility] HemeAutoSS Hep Func Panelon 09-10-2022 Bilirubin.indirect [Mass or moles/Vol] UTC Abnormal 0.1-0.9 [facility] Comment on above: Result Comment: Resu lt verified by Discern Rule. Performed result UTC (Unable to Calculate) was sent as an Alpha code due the inability to calculate a valid numeric value. Performed By: #### 1 4608557, 71430056, 5266339, 2600349, 0522567, 7930955, 1142645 ####[facility] [address] [place] [address] Albumin [Mass/Vol] 4.1 g/dL Normal 3.3-5.0 [facility] Comment on above: Performed By: #### 1 8414392, 17924430, 1916098, 4893434, 7487509, 4337600, 8363333 ####[facility] [address] [place] [address] Albumin/Globulin (S) [Mass conc ratio] 1.1 Normal 1.1-2.2 [facility] Comment on above: Performed By: #### 1 4696276, 95178683, 8668074, 7952019, 0008849, 0273062, 0769890 ####[address] [place] [address] ALP [Catalytic activity/Vol] 56 Int._Unit/L Normal 21-98 [facility] Comment on above: Performed By: #### 1 1597623, 64269699, 4914841, 0582252, 9682927, 4988618, 4423496 ####[address] [address] ALT No additional P-5'-P [Catalytic activity/Vol] 37 Int._Unit/L Normal 6-46 [facility] Comment on above: Performed By: #### 1 7342838, 34941975, 1871870, 6223671, 4941130, 3851510, 8241583 ####[address] [address] AST [Catalytic activity/Vol] 39 Int._Unit/L Normal 5-43 [facility] Comment on above: Performed By: #### 1 9712447, 66580262, 8981474, 1779919, 7159551, 6784562, 0730013 ####[address] [place] [address] Bilirubin [Mass/Vol] 0.6 mg/dL Normal 0.0-1.1 [facility] Comment on above: Performed By: #### 1 5360207, 03193710, 9263368, 4692161, 7185708, 6767683, 7208512 ####[facility] [address] [place] [address] Bilirubin.direct [Mass/Vol] mg/dL Normal 0.1-0.4 [facility] Comment on above: Performed By: #### 1 2268268, 38602589, 7251735, 6051664, 8043360, 3112522, 9228999 ####[facility] [address] [place] [address] Globulin (S) [Mass/Vol] 3.8 g/dL Normal 1.4-4.0 [facility] Comment on above: Performed By: #### 1 1006399, 93889740, 7619543, 0075242, 3403428, 5202859, 9524687 ####[facility] [address] [place] [address] Protein [Mass/Vol] 7.9 g/dL High 6.0-7.8 [facility] Comment on above: Performed By: #### 1 5321891, 32177980, 8838236, 1375408, 4832987, 8959074, 6556700 ####[facility] [address] [place] [address] PueA5ucb 09-10-2022 HbA1c (Bld) [Mass fraction] 6.3 % High <=5.9 [facility] Comment on above: Performed By: #### 7 [id number] ####[facility] [address] [place] [address] Lipid Panelon 09-10-2022 Cholesterol [Mass/Vol] 209 mg/dL High 120-200 [facility] Comment on above: Performed By: #### 1 1202540, 45923316, 3140916, 0205096, 5142148, 7562020, 7578245 ####[facility] [address] [place] [address] Cholesterol in HDL [Mass/Vol] 42 mg/dL Invalid Interpretation Code [facility] Comment on above: Result Comment: HDL > or equal to 60 mg/dL: Low cardiovascular riskHDL < 40 mg/dL : High cardiovascular risk Performed By: #### 1 7604964, 13745715, 0981098, 7089250, 2868520, 0474512, 0240345 ####[facility] [address] [place] [address] Cholesterol in LDL [Mass/Vol] 144 mg/dL High <=129 [facility] Comment on above: Performed By: #### 1 5638990, 26866135, 7346339, 4282036, 3759706, 1167033, 2302256 ####[facility] [address] [place] [address] Cholesterol in VLDL [Mass/Vol] 24 mg/dL Normal 7-40 [facility] Comment on above: Performed By: #### 1 0212700, 11277827, 3381875, 2213062, 1442367, 4219178, 1260384 ####[facility] [address] [place] [address] Triglyceride [Mass/Vol] 120 mg/dL Normal <=149 [facility] Comment on above: Performed By: #### 1 0309123, 19386015, 1003943, 2258938, 6397698, 8749936, 1559779 ####[facility] [address] [place] [address] MRI Spine Lumbar w/o Contras ton 09-10-2022 MRI Spine Lumbar w/o Contrast Normal [facility] PSA Screen, Totalon 09-10-19 23 Prostate specific Ag [Mass/Vol] 0.9 ng/mL Normal 0.1-3.5 [facility] Comment on above: Result Comment: The concentration of PSA determined by different manufacturers can vary due to differences in assay methods and reagent specificity. Values obtained from different assay methods cannot be used interchangeably. The methodology used for this result was chemiluminescence using [employer]'s Access [employer] PSA reagent. Performed By: #### 1 2216818, 23564152, 4989822, 8774579, 8457007, 0550639, 9096805 ####[facility] [address] [place] [address] RAD - MRI Screening Formon 0 09-10-2022 RAD - MRI Screening Form [id number]#1.00C D:127 Normal [facility] U Microalbon 09-10-2022 Albumin DL <= 20 mg/L (U) [Mass/Vol] 11.6 microgram/mL Normal 0.0-19.0 [facility] Comment on above: Performed By: #### 1 2011526 ####[facility] [address] [place] [address] XR Spine Lumbosacral Minimum 4 Viewson 09-10-2022 XR Spine Lumbosacral Minimum 4 Views Normal [facility] eGFRon 09-10-2022 GFR/1.73 sq M.predicted among blacks MDRD (S/P/Bld) [Vol rate/Area] mL/min/{1.73_m2} Normal >=59 [facility] Comment on above: Order Comment: Order added by Discern Expert. Result Comment: eGFR is race adjusted. AA=. Performed By: #### 1 [id number], [id number], [id number], 8337054, 9133207, 0400484, 9851936 ####[facility] [address] [place] [address] GFR/1.73 sq M.predicted among non-blacks MDRD (S/P/Bld) [Vol rate/Area] mL/min/{1.73_m2} Normal >=59 [facility] Comment on above: Order Comment: Order added by Discern Expert. Result Comment: Instrumentation Technician cristo kidney disease could be indicated at eGFR's of less than 60 mL/min/1.73m2. Kidney failure is indicated at less than 15 mL/min/1.73m2. Performed By: #### 1 [id number], [id number], 6644163, 3227950, 6844641, 1792938, 7745890 ####[facility] [address] [place] [address] Physician Orderon 08-31-2022 Physician Order [id number]#1.00C D:127 Normal [facility] Physician Order [id number]#1.00C D:127 Normal [facility] Physician Order [id number]#1.00 CD:127 Normal [facility] Physician Order [id number]#1.00 CD:127 Normal [facility] Physician Order [id number]#1.00 CD:127 Normal [facility] Consultation Noteon 08-29-19 Consultation Note Normal [facility] Comment on above: Result Comment: Elec tronically Signed By: Pawan Laureano MD\.br\Date and Time Signed: 08/29/22 08:28 EST Family Medicine Office/Clini c Noteon 08-29-2022 Family Medicine Office/Clinic Note Normal [facility] Comment on above: Result Comment: Elec tronically Signed By: Mt GOODEN DO, FAAFP\.br\Date and Time Signed: 08/29/22 12:52 EST\.br\Electronically Co-Signed By: Estelita Singh LPN\.br\Date and Time Co-Signed: 08/28/22 14:23 EST Ambulatory Visit Summaryon 0 08-28-2022 Ambulatory Visit Summary Invalid Interpretation Code [address] [place] [address]- \.br\ Saturday 11:00 AM EST \.br\ With:\.br\ Where: [facility] Primary Care [facility] Patient Educationon 08-28-19 Patient Education [facility] Screenson 08-28-2022 Screens [id number]#1.00C D:127 [facility] Coding Summary.on 08-27-2022 Coding Summary. Normal [facility] Ambulatory Visit Summaryon 0 08-23-2022 Ambulatory Visit Summary Invalid Interpretation Code [address], [place] [address]- \.br\ You Need to Schedule the Following Appointments\.br\ Follow Up with Mt GOODEN DO, FAAFP, BEATRIZ, PED When: In 6 months\.br\ Where:\.br\ [address], [address]br\ [place] [address]-\.br\ \.br\ You Need to Complete the Following\.br\ Basic Metabolic Panel, Blood, Routine collect, 08/23/22, Order for future visit, Lab Collect, Type 2 diabetes mellitus with morbid obesity [facility] Consent for Treatmenton 08-12 Consent for Treatment [id number]#1.00 CD:127 Normal [facility] Family Medicine Office/Clini c Noteon 08-23-2022 Family Medicine Office/Clinic Note Normal [facility] Comment on above: Result Comment: Elec tronically Signed By: Mt GOODEN DO, FAAFP\.br\Date and Time Signed: 08/23/22 08:16 EST HIPAA Forms Officeon 023 HIPAA Forms Office [id number]#1.00 CD:127 Normal [facility] Legal Correspondence Officeo n 08-23-2022 Legal Correspondence Office [id number]#1.00 CD:127 Normal [facility] Legal Correspondence Office [id number]#1.00 CD:127 Normal [facility] Office/Clinic Note-Physician on 08-23-2022 Office/Clinic Note-Physician [id number]#1.00 CD:127 Normal [facility] Patient Correspondenceon Patient Correspondence [id number]#1.00 CD:127 Normal [facility] Patient Correspondence [id number]#1.00 CD:127 Normal [facility] Patient Correspondence [id number]#1.00 CD:127 Normal [facility] Patient Correspondence [id number]#1.00 CD:127 [facility] Patient Correspondence [id number]#1.00 CD:127 Normal [facility] Patient Educationon 08-23-19 Patient Education [facility] Patient History Officeon Patient History Office [id number]#1.00 CD:127 Normal [facility] Physician Referralon 023 Physician Referral [id number]#1.00C D:127 [facility] Physician Referralon 022 Physician Referral [id number]#1.0 0CD:127 [facility] Reminderson 08-02-2022 Reminders [facility] Family Medicine Office/Clini c Noteon 08-01-2022 Family Medicine Office/Clinic Note [facility] Comment on above: Result Comment: Elec tronically Signed By: Thao Duncan DO\Date and Time Signed: 08/01/22 20:01 EST Patient Educationon 08-01-20 Patient Education [facility] ANES POSTPROC EVALon 022 ANES POSTPROC EVAL HNO ID: [id number] Author: Vincenzo Laughlin MD Service: ? Author [...] June 08, 2022 TIME: 5:56 PM CSN: [id number] Normal [facility] ANES PRE-OPon 06-08-2022 ANES PRE-OP HNO ID: [id number] Author: Vincenzo Laughlin MD Service: ? 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 Patient / Responsible Libertarian agrees to proceed: yes Patient / Surrogate [...] June 08, 2022 TIME: 12:31 PM CSN: [id number] Normal [facility] EGD DIAGNOSTICon 06-08-2022 [facility] GLUCOSE, BLOOD (POC)on 06-08 Glucose [Mass/Vol] 129 mg/dL Abnormal 74 - 99 mg/dL [facility] Glucose [Mass/Vol] 95 mg/dL 74 - 99 mg/dL [facility] NURSING PROGon 06-08-2022 NURSING PROG HNO ID: [id number] Author: Leonor Osorio RN Service: Nursing Author [...] Electronically Signed By: Leonor Osorio RN Normal [facility] NURSING PROG HNO ID: [id number] Author: Marguerite Potts RN Service: Nursing Author [...] Marguerite Potts RN In Department: GASTROENTEROLOGY Normal [facility] SURGICAL PATHOLOGYon 022 ADDENDUM 1: Normal [facility] Comment on above: Order Comment: Speci men Type: TISSUE SPECIMENOrdering Facility: [facility] Address: [address] [place] [phone] Result Comment: H. p ylori immunostain performed on the stomach biopsy (part A) to evaluate the chronic gastritis is negative for organisms. Laboratory Developed Test (LDT) Disclaimer: Performance characteristics of immunohistochemical, immunofluorescent and chromogenic in-situ hybridization tests have been determined by the performing laboratory within [facility]???s Thao Carabalol [facility] Pathology and Laboratory Medicine [place] ([facility], [facility], [facility] or [facility]) in a manner consistent with CLIA requirements. [...] PM Performed By: #### S ####[facility] [id number] [address] CASE REPORT Normal [facility] Comment on above: Order Comment: Jay mendoza Type: TISSUE SPECIMENOrdering Facility: [facility] Address: [address] [place] [address] Result Comment: Surg [facility] Pathology Report Case: [id number] Authorizing Provider: Katrina Urena MD Collected: 06/08/2022 12:47 PM Ordering Location: Gastroenterology Received: 06/08/2022 03:49 PM Pathologist: Sky Alvarenga MD Specimens: A) - STOMACH BIOPSY, gastric antrum B) - STOMACH BIOPSY, gastric antrum nodule C) - ESOPHAGUS BIOPSY, @41 D) - ESOPHAGUS BIOPSY, @39 E) - ESOPHAGUS BIOPSY, @38 Performed By: #### S ####[facility]ATORYCLIA [id number] [address] DIAGNOSIS COMMENT H. pylori immunostai n is pending. Normal [facility] Comment on above: Order Comment: Jay mendoza Type: TISSUE SPECIMENOrdering Facility: [facility] Address: [address] [place] [address] Performed By: #### S ####[facility]ATORYCLIA [id number] [address] FINAL DIAGNOSIS Normal [facility] Comment on above: Order Comment: Jay mendoza Type: TISSUE SPECIMENOrdering Facility: [facility] Address: [address] [place] [address] Result Comment: A. S tomach, biopsy: - [...] negative for dysplasia. Performed By: #### S ####[facility] LABORATORYCLIA [id number] [address] [place] FINAL PERFORMING LAB Normal [facility] Comment on above: Order Comment: Speci men Type: TISSUE SPECIMENOrdering Facility: [facility] Address: [address] [place] [address] Result Comment: Diag nostic interpretation performed at [facility], [address], [place] [address] CLIA# [id number] Legal Internship: Nellie Galvin M.D. Performed By: #### S ####[facility] LABORATORYCLIA [id number] [address] GROSS DESCRIPTION Normal [facility] Comment on above: Order Comment: Speci men Type: TISSUE SPECIMENOrdering Facility: [facility] Address: [address] [place] [address] Result Comment: A. S TOMACH BIOPSY Received [...] in one cassette. Gross examination performed at [facility], [address] [place] [address] JS 06/08/2022 7:53 PM Performed By: #### S ####[facility] [id number] [place] [address] [facility]ITAL[facility]20[facility] JAS GONZALEZ ([id number]) 1950 [facility] Date Time Provider Department 06/01/22 DEE MARIN [...] have family/friend present for procedure transport home:Patient/patient call center support representative was told that if they do not have a responsible adult accompany them to their procedure; and remain in the endoscopy area until they are discharged; that their procedure cannot be done with sedation or anesthesia and may be cancelled. 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 Type of instruction given: Verbal by telephone contact. Dee Marin RN Allergies As of Date: 06/01/2022 (Not on File) Date Reviewed: Never Reviewed Reason for Visit: Appointment Confirmation [2182] Problem List As Of Date: 06/01/2022 (None) Encounter Status:Closed by DEE MARIN on 06/01/22 [facility] JAS GONZALEZ ([id number]) 1950 M DEF Date Time Provider Department 04/26/22 MARGUERITE POTTS During your visit today, we recorded the following information about you: Marguerite Potts RN 04/26/2022 3:44 PM Signed Attempted to reach the patient at the contact number that they provided [phone] (home) . 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 call center support representative they must have a responsible adult [...] Number to call with questions or concerns [phone] Number to call to cancel their procedure [phone] Marguerite Potts RN Allergies As of Date: 04/26/2022 (Not on File) Date Reviewed: Never Reviewed Reason for Visit: Appointment Confirmation [1241] Problem List As Of Date: 04/26/2022 (None) Encounter Status:Closed by MARGUERITE POTTS on 04/26/22 Normal [facility] CBC panel Auto (Bld)on 04-09 Erythrocyte distribution width (RBC) [Ratio] 13.3 % 11.5 - 15.0 % [facility] Hematocrit (Bld) [Volume fraction] 46.8 % 39.0 - 51.0 % [facility] Hemoglobin (Bld) [Mass/Vol] 15.1 g/dL 13.0 - 17.0 g/dL [facility] MCH (RBC) [Entitic mass] 30.7 pg 26.0 - 34.0 pg [facility] MCHC (RBC) [Mass/Vol] 32.3 g/dL 30.5 - 36.0 g/dL [facility] MCV (RBC) [Entitic vol] 95.1 fL 80.0 - 100.0 fL [facility] Nucleated RBC (Bld) [#/Vol] <0.01 k/uL [facility] Platelet mean volume (Bld) [Entitic vol] 10.8 fL 9.0 - 12.7 fL [facility] Platelets (Bld) [#/Vol] 165 10*3/uL 150 - 400 k/uL [facility] RBC (Bld) [#/Vol] 4.92 10*6/uL 4.20 - 6.00 m/uL [facility] WBC (Bld) [#/Vol] 8.48 10*3/uL 3.70 - 11.00 k/u L [facility] Erythrocyte distribution width (RBC) [Ratio] 13.3 % Normal 11.5-15.0 [facility] Comment on above: Order Comment: Speci men Type: BLOOD SPECIMENOrdering Facility: [facility] Address: [address] [place] [address] Performed By: #### 5 8410-2 ####[facility] [id number] [place] [address] [place] Hematocrit (Bld) [Volume fraction] 46.8 % Normal 39.0-51.0 [facility] Comment on above: Order Comment: Speci men Type: BLOOD SPECIMENOrdering Facility: [facility] Address: [address] [place] [address] Performed By: #### 5 8410-2 ####[facility] LABIA [id number] [place] [address] [place] Hemoglobin (Bld) [Mass/Vol] 15.1 g/dL Normal 13.0-17.0 [facility] Comment on above: Order Comment: Speci men Type: BLOOD SPECIMENOrdering Facility: [facility] Address: [address] [place], [place] [address] Performed By: #### 5 8410-2 ####[facility] [id number] [address] MCH (RBC) [Entitic mass] 30.7 pg Normal 26.0-34.0 [facility] Comment on above: Order Comment: Speci men Type: BLOOD SPECIMENOrdering Facility: [facility] Address: [address] [place] [address] Performed By: #### 5 8410-2 ####[facility] [id number] [address] MCHC (RBC) [Mass/Vol] 32.3 g/dL Normal 30.5-36.0 [facility] Comment on above: Order Comment: Speci men Type: BLOOD SPECIMENOrdering Facility: [facility] Address: [address] [place], [place] [address] Performed By: #### 5 8410-2 ####[facility] [id number] [address] STATES [facility] MCV (RBC) [Entitic vol] 95.1 fL Normal 80.0-100.0 [facility] Comment on above: Order Comment: Speci men Type: BLOOD SPECIMENOrdering Facility: [facility] Address: [address] [place] [address] Performed By: #### 5 8410-2 ####[facility] [id number] [address] Nucleated RBC (Bld) [#/Vol] 10*3/uL Normal <0.01 [facility] Comment on above: Order Comment: Speci men Type: BLOOD SPECIMENOrdering Facility: [facility] Address: [address] [place] [address] Performed By: #### 5 8410-2 ####[facility] LABCLIA [id number] [place] [address] [place] Platelet mean volume (Bld) [Entitic vol] 10.8 fL Normal 9.0-12.7 [facility] Comment on above: Order Comment: Speci men Type: BLOOD SPECIMENOrdering Facility: [facility] Address: [address] [place] [address] Performed By: #### 5 8410-2 ####[facility] LABIA [id number] [place] [address] [place] Platelets (Bld) [#/Vol] 165 10*3/uL Normal 150-400 [facility] Comment on above: Order Comment: Speci men Type: BLOOD SPECIMENOrdering Facility: [facility] Address: [address] [place] [address] Performed By: #### 5 8410-2 ####[facility] LABIA [id number] [place] [address] [place] RBC (Bld) [#/Vol] 4.92 10*6/uL Normal 4.20-6.00 [facility] Comment on above: Order Comment: Speci men Type: BLOOD SPECIMENOrdering Facility: [facility] Address: [address] [place] [address] Performed By: #### 5 8410-2 ####[facility] LABIA [id number] [place] [address] [place] WBC (Bld) [#/Vol] 8.48 10*3/uL Normal 3.70-11.00 [facility] Comment on above: Order Comment: Speci men Type: BLOOD SPECIMENOrdering Facility: [facility] Address: [address] [place] [address] Performed By: #### 5 8410-2 ####[facility] LABIA [id number] [address] [place] [address] [place] CNOVon 04-09-2022 CNOV Office Visit (GASTQ3 ) JAS GONZALEZ ([id number]) 1950 M DEF Date Time Provider Department [...] Mell[facility] Dietary Counseling GERD with hiatal hernia [facility] current use of oral hypoglycemic drug Lumbar [...] Findings: The affected area was not inflamed. Mears classification C 40, M 35. Biopsy collected. [...] Past Histories independently gathered by the clinical emotional support teacher and the remaining scribed note accurately describes my personal service to the patient. Katrina Urena M.D. Office:[phone] Appointments [phone] (more content not included)... Normal [facility] Comprehensive metabolic 2000 panelon 04-09-2022 Albumin [Mass/Vol] 4.4 g/dL Normal 3.9-4.9 [facility] Comment on above: Order Comment: Speci men Type: BLOOD SPECIMENOrdering Facility: [facility] Address: [address] [place] [address] Performed By: #### 2 4323-8 ####[facility] LABCLIA [id number] [place] [address] [place] ALP [Catalytic activity/Vol] 70 U/L Normal 38-113 [facility] Comment on above: Order Comment: Speci men Type: BLOOD SPECIMENOrdering Facility: [facility] Address: [address] [address] Performed By: #### 2 4323-8 ####[facility] LABCLIA [id number] [place] [address] [place] ALT [Catalytic activity/Vol] 33 U/L Normal 10-54 [facility] Comment on above: Order Comment: Speci men Type: BLOOD SPECIMENOrdering Facility: [facility] Address: [address] Performed By: #### 2 4323-8 ####[facility] LABCLIA [id number] [place] [address] [place] Anion gap [Moles/Vol] 12 mmol/L Normal 9-18 [facility] Comment on above: Order Comment: Speci men Type: BLOOD SPECIMENOrdering Facility: [facility] Address: [address] [place] [address] Performed By: #### 2 4323-8 ####[facility] LABCLIA [id number] [place] [address] [place] AST [Catalytic activity/Vol] 32 U/L Normal 14-40 [facility] Comment on above: Order Comment: Speci men Type: BLOOD SPECIMENOrdering Facility: [facility] Address: [address] [place] [address] Performed By: #### 2 4323-8 ####[facility] LABCLIA [id number] [place] [address] [place] Bilirubin [Mass/Vol] 0.4 mg/dL Normal 0.2-1.3 [facility] Comment on above: Order Comment: Speci men Type: BLOOD SPECIMENOrdering Facility: [facility] Address: [address] [place] [address] Performed By: #### 2 4323-8 ####[facility] LABCLIA [id number] [place] [address] [place] Calcium [Mass/Vol] 9.9 mg/dL Normal 8.5-10.2 [facility] Comment on above: Order Comment: Speci men Type: BLOOD SPECIMENOrdering Facility: [facility] Address: [address] [place] [address] Performed By: #### 2 4323-8 ####[facility] LABCLIA [id number] [place] [id number] [place] Chloride [Moles/Vol] 100 mmol/L Normal 97-105 [facility] Comment on above: Order Comment: Speci men Type: BLOOD SPECIMENOrdering Facility: [facility] Address: [address] [place] [address] Performed By: #### 2 4323-8 ####[facility] LABCLIA [id number] [place] [address] [place] CO2 [Moles/Vol] 27 mmol/L Normal 22-30 [facility] Comment on above: Order Comment: Speci men Type: BLOOD SPECIMENOrdering Facility: [facility] Address: [address] [place] [address] Performed By: #### 2 4323-8 ####[facility] LABCLIA [id number] [address] STATES OF [facility] Creatinine [Mass/Vol] 0.92 mg/dL Normal 0.73-1.22 [facility] Comment on above: Order Comment: Speci men Type: BLOOD SPECIMENOrdering Facility: [facility] Address: [address] [place] [address] Performed By: #### 2 4323-8 ####[facility] LABCLIA [id number] [address] ESTIMATED GLOMERULAR FILTRATION RATE 87 mL/min/1.73m??? Normal >=60 [facility] Comment on above: Order Comment: Speci men Type: BLOOD SPECIMENOrdering Facility: [facility] [facility] Address: [address] [place] [address] Result Comment: Aminta mated Glomerular Filtration Rate [...] 2 4323-8 ####[facility] LABCLIA [id number] [place] [address] [place] Glucose [Mass/Vol] 99 mg/dL Normal 74-99 [facility] Comment on above: Order Comment: Speci men Type: BLOOD SPECIMENOrdering Facility: [facility] Address: [address] [place] [address] Result Comment: The [place] Diabetes Association (ADA) provides guidance for cutoff [...] Standards of Medical Care in Diabetes 2016, [place] [employer]. Diabetes Care. 2016.39(Suppl 1). Performed By: #### 2 4323-8 ####[facility] LABCLIA [id number] [place] [address] [place] Potassium [Moles/Vol] 4.2 mmol/L Normal 3.7-5.1 [facility] Comment on above: Order Comment: Speci men Type: BLOOD SPECIMENOrdering Facility: [facility] Address: [address] [place] [address] Performed By: #### 2 4323-8 ####[facility] LABCLIA [id number] [place] [address] [place] Protein [Mass/Vol] 7.7 g/dL Normal 6.3-8.0 [facility] Comment on above: Order Comment: Speci men Type: BLOOD SPECIMENOrdering Facility: [facility] Address: [address] [place] [address] Performed By: #### 2 4323-8 ####[facility] LABIA [id number] [place] [address] [place] Sodium [Moles/Vol] 139 mmol/L Normal 136-144 [facility] Comment on above: Order Comment: Speci men Type: BLOOD SPECIMENOrdering Facility: [facility] Address: [address] [place], [place] [id number] Performed By: #### 2 4323-8 ####[facility] LABCLIA [id number] [place] [address] [place] Urea nitrogen [Mass/Vol] 16 mg/dL Normal 9-24 [facility] Comment on above: Order Comment: Speci men Type: BLOOD SPECIMENOrdering Facility: [facility] Address: [address] [place] [address] Performed By: #### 2 4323-8 ####[facility] LABCLIA [id number] [address] [place] CHEMISTRYOrdered By: Alia Heart on 09-07-2021 HbA1c (Bld) [Mass fraction] 6.3 % High <=5.9% [facility] ChemAutoSS Vital Signs Date Time Vital Sign Value Performing Clinician Facility 07-17-2023 09:46-0500 Blood Pressure Location Basem Murillo [facility] 07-17-2023 09:46-0500 Diastolic blood pressure 72 mm[Hg] Basem Murillo [facility] 07-17-2023 09:46-0500 Heart rate 81 /min Basem Murillo [facility] 07-17-2023 09:46-0500 SaO2% (BldA) [Mass fraction] 95 % Basem Murillo [facility] 07-17-2023 09:46-0500 Systolic blood pressure 102 mm[Hg] Basem Murillo [facility] 11-28-2023 10:05-0500 Heart rate 83 /min d Al-Marrawi [facility] 07-09-2023 10:05-0500 SaO2% (BldA) [Mass fraction] 95 % Mhd Al-Marrawi [facility] 07-09-2023 10:05-0500 Body temperature 97.52 [degF] d Al-Marrawi [facility] 07-09-2023 10:04-0500 Diastolic blood pressure 69 mm[Hg] d Al-Marrawi [facility] 07-09-2023 10:04-0500 Mean blood pressure 84 mm[Hg] d Al-Marrawi [facility] 07-09-2023 10:04-0500 Systolic blood pressure 113 mm[Hg] d Al-Marrawi [facility] 07-09-2023 10:04-0500 Respiratory rate 20 /min d Al-Marrawi [facility] 06-26-2023 09:42-0500 Blood Pressure Location Basem Murillo [facility] 06-26-2023 09:42-0500 Diastolic blood pressure 69 mm[Hg] Basem Murillo [facility] 06-26-2023 09:42-0500 Heart rate 84 /min Basem Murillo [facility] 06-26-2023 09:42-0500 SaO2% (BldA) [Mass fraction] 96 % Basem Murillo [facility] 06-26-2023 09:42-0500 Systolic blood pressure 106 mm[Hg] Basem Murillo [facility] 06-03-2023 13:35-0400 Blood Pressure Location [facility] 06-03-2023 13:35-0400 Body temperature 98.42 [degF] [facility] 06-03-2023 13:35-0400 Diastolic blood pressure 62 mm[Hg] [facility] 06-03-2023 13:35-0400 Heart rate 78 /min [facility] 06-03-2023 13:35-0400 Respiratory rate 22 /min [facility] 06-03-2023 13:35-0400 SaO2% (BldA) [Mass fraction] 94 % [facility] 06-03-2023 13:35-0400 Systolic blood pressure 104 mm[Hg] [facility] 04-09-2023 10:00-0400 Blood Pressure Location [facility] 04-09-2023 10:00-0400 Body temperature 98.42 [degF] [facility] 04-09-2023 10:00-0400 Diastolic blood pressure 68 mm[Hg] [facility]-09-[facility] 10:00-0400 Heart rate 90 /min [facility] 04-09-2023 10:00-0400 Mean blood pressure 80 mm[Hg] [facility] 04-09-2023 10:00-0400 Respiratory rate 22 /min [facility] 04-09-2023 10:00-0400 SaO2% (BldA) [Mass fraction] 93 % [facility] 04-09-2023 10:00-0400 Systolic blood pressure 104 mm[Hg] Mitch Amaro [facility] 03-13-2023 14:00-0400 Hourly Rounding Jordan Dianne [facility] 03-13-2023 14:00-0400 Promise to Return Jordan Dianne [facility] 03-13-2023 04:00-0400 Diastolic blood pressure 65 mm[Hg] Jordan Dianne [facility] 03-13-2023 04:00-0400 Heart rate 85 /min Jordan Dianne [facility] 03-13-2023 04:00-0400 Hourly Rounding Jordan Dian[facility] 03-13-2023 04:00-0400 Mean blood pressure 81 mm[Hg] Jordan Dianne [facility] 03-13-2023 04:00-0400 Promise to Return Jordan Dian[facility] 03-13-2023 04:00-0400 SaO2% (BldA) [Mass fraction] 94 % Jordan Dianne [facility] 03-13-2023 04:00-0400 Systolic blood pressure 112 mm[Hg] Jordan Dianne [facility] 03-13-2023 03:44-0400 Diastolic blood pressure 63 mm[Hg] Jordan Dianne [facility] 03-13-2023 03:44-0400 Heart rate 82 /min Jordan Dianne [facility] 03-13-2023 03:44-0400 Mean blood pressure 78 mm[Hg] Jordan Dianne [facility] 03-13-2023 03:44-0400 SaO2% (BldA) [Mass fraction] 96 % Jordan Dian[facility] 03-13-2023 03:44-0400 Systolic blood pressure 108 mm[Hg] Jordan D[facility] 03-13-2023 03:00-0400 Diastolic blood pressure 67 mm[Hg] Jordan D[facility] 03-13-2023 03:00-0400 Heart rate 81 /min Jordan Dian[facility] 03-13-2023 03:00-0400 Hourly Rounding Jordan D[facility] 03-13-2023 03:00-0400 Mean blood pressure 84 mm[Hg] [facility] D[facility] 03-13-2023 03:00-0400 Promise to Return [facility] D[facility] 03-13-2023 03:00-0400 Systolic blood pressure 118 mm[Hg] [facility] D[facility] 03-13-2023 02:22-0400 Body temperature 97.52 [degF] Jordan D[facility] 03-13-2023 02:22-0400 Heart rate 83 /min Jordan Dianne [facility] 03-13-2023 02:22-0400 Respiratory rate 16 /min Jordan Dianne [facility] 03-11-2023 10:00-0400 Blood Pressure Location Mhd Al-Marrawi [facility] 03-11-2023 10:00-0400 Body temperature 97.7 [degF] d Al-Marraw[facility] 03-11-2023 10:00-0400 Diastolic blood pressure 65 mm[Hg] Mhd Al-Marraw[facility] 03-11-2023 10:00-0400 Heart rate 93 /min Mhd [facility]raw[facility] 03-11-2023 10:00-0400 Mean blood pressure 77 mm[Hg] d [facility]Mar[facility] 03-11-2023 10:00-0400 Respiratory rate 22 /min Mhd Al-Marraw[facility] 03-11-2023 10:00-0400 SaO2% (BldA) [Mass fraction] 94 % d Al-Marrawi [facility] 03-11-2023 10:00-0400 Systolic blood pressure 100 mm[Hg] d Al-Marrawi [facility] 02-19-2023 16:33-0400 [facility] 02-19-2023 16:33-0400 [facility] 02-19-2023 16:00-0400 [facility] 16:00-0400 [facility] 02-19-2023 15:29-0400 Heart rate 86 /min [facility] 02-19-2023 15:29-0400 SaO2% (BldA) [Mass fraction] 94 % [facility] 02-19-2023 15:28-0400 Diastolic blood pressure 86 mm[Hg] [facility] 02-19-2023 15:28-0400 Mean blood pressure 103 mm[Hg] [facility] 02-19-2023 15:28-0400 Systolic blood pressure 136 mm[Hg] [facility] 02-19-2023 15:28-0400 Body temperature 97.7 [degF] [facility] 02-19-2023 15:00-0400 Blood Pressure [facility] 02-19-2023 15:00-0400 Hourly Rounding [facility] 02-19-2023 15:00-0400 [facility] 02-19-2023 15:00-0400 Respiratory rate 16 /min [facility] 02-19-2023 11:33-0400 Heart rate 83 /min [facility] 02-19-2023 11:33-0400 SaO2% (BldA) [Mass fraction] 93 % [facility] 02-19-2023 11:33-0400 Body temperature 98.42 [degF] [facility] 02-19-2023 11:33-0400 Diastolic blood pressure 92 mm[Hg] [facility] 02-19-2023 11:33-0400 Mean blood pressure 109 mm[Hg] [facility] 02-19-2023 11:33-0400 Systolic blood pressure 144 mm[Hg] [facility] 02-19-2023 08:18-0400 SaO2% (BldA) [Mass fraction] 93 % [facility] 02-19-2023 08:13-0400 Heart rate 56 /min gloria [facility] 02-19-2023 08:13-0400 Diastolic blood pressure 80 mm[Hg] [facility] 02-19-2023 08:13-0400 Mean blood pressure 94 mm[Hg] [facility] 02-19-2023 08:13-0400 Systolic blood pressure 121 mm[Hg] [facility] 02-19-2023 08:13-0400 Body temperature 97.52 [degF] [facility] 02-19-2023 08:00-0400 Respiratory rate 14 /min [facility] 02-18-2023 20:48-0400 gluc 173 mg/dL [facility] 02-18-2023 16:38-0400 Heart rate 65 /min [facility] 02-18-2023 15:30-0400 Mean blood pressure 101 mm[Hg] [facility] 02-18-2023 15:30-0400 Respiratory rate 24 /min [facility] 02-18-2023 15:21-0400 Mean blood pressure 92 mm[Hg] [facility] 02-18-2023 15:17-0400 Mean blood pressure 92 mm[Hg] [facility] 02-18-2023 08:50-0400 Heart rate 94 /min [facility] 02-18-2023 07:56-0400 Blood Pressure Location [facility] 02-18-2023 07:56-0400 Body temperature 98.6 [degF] [facility] 02-18-2023 07:56-0400 Diastolic blood pressure 62 mm[Hg] [facility] 02-18-2023 07:56-0400 Heart rate 91 /min [facility] 02-18-2023 07:56-0400 Respiratory rate 20 /min [facility] 02-18-2023 07:56-0400 SaO2% (BldA) [Mass fraction] 90 % [facility] 02-18-2023 07:56-0400 Systolic blood pressure 120 mm[Hg] [facility] 12-10-2022 10:02-0400 Blood Pressure Location [facility] 12-10-2022 10:02-0400 Body temperature 98.6 [degF] [facility] 12-10-2022 10:02-0400 Diastolic blood pressure 72 mm[Hg] [facility] 12-10-2022 10:02-0400 Heart rate 89 /min [facility] 12-10-2022 10:02-0400 Respiratory rate 18 /min [facility] 12-10-2022 10:02-0400 SaO2% (BldA) [Mass fraction] 97 % [facility] 12-10-2022 10:02-0400 Systolic blood pressure 136 mm[Hg] [facility] 12-05-2022 12:56-0400 Body weight 154.22 kg Juma Monk MD Work Phone: [facility] 12-05-2022 12:56-0400 Diastolic blood pressure 74 mm[Hg] Juma Monk MD Work Phone: [facility] 12-05-2022 12:56-0400 Heart rate 83 /min Juma Monk MD Work Phone: [facility] 12-05-2022 12:56-0400 Respiratory rate 18 /min Juma Monk MD Work Phone: [facility] 12-05-2022 12:56-0400 SaO2% (BldA) [Mass fraction] 95 % Juma Monk MD Work Phone: [facility] 12-05-2022 12:56-0400 Systolic blood pressure 118 mm[Hg] Juma Monk MD Work Phone: [facility] 12-02-2022 15:22-0400 Diastolic blood pressure 84 mm[Hg] [facility] 12-02-2022 15:22-0400 Heart rate 78 /min [facility] 12-02-2022 15:22-0400 Mean blood pressure 105 mm[Hg] [facility] 12-02-2022 15:22-0400 Respiratory rate 18 /min [facility] 12-02-2022 15:22-0400 SaO2% (BldA) [Mass fraction] 96 % [facility] 12-02-2022 15:22-0400 Systolic blood pressure 148 mm[Hg] [facility] 12-02-2022 12:08-0400 Body temperature 98.78 [degF] [facility] 12-02-2022 12:08-0400 Diastolic blood pressure 90 mm[Hg] [facility] 12-02-2022 12:08-0400 Heart rate 73 /min [facility] 12-02-2022 12:08-0400 Respiratory rate 18 /min [facility] 12-02-2022 12:08-0400 SaO2% (BldA) [Mass fraction] 95 % [facility] 12-02-2022 12:08-0400 Systolic blood pressure 152 mm[Hg] Arturo Alvarez [facility] 11-29-2022 09:53-0400 Diastolic blood pressure 66 mm[Hg] Pawan Laureano [facility] 11-29-2022 09:53-0400 Heart rate 85 /min Pawan Larsonumbar [facility] 11-29-2022 09:53-0400 Mean blood pressure 84 mm[Hg] Pawan Larsonumbar [facility] 11-29-2022 09:53-0400 Systolic blood pressure 121 mm[Hg] Pawan Lear [facility] 11-14-2022 13:23-0400 Body height 185.4 cm Juma Monk MD Work Phone: [facility] 11-14-2022 13:23-0400 Body weight 151.5 kg Juma Monk MD Work Phone: [facility] 11-14-2022 13:23-0400 Diastolic blood pressure 63 mm[Hg] Juma Monk MD Work Phone: [facility] 11-14-2022 13:23-0400 Heart rate 73 /min Juma Monk MD Work Phone: [facility] 11-14-2022 13:23-0400 Systolic blood pressure 121 mm[Hg] Juma Monk MD Work Phone: [facility] 11-08-2022 10:04-0400 Blood Pressure Location [facility] 11-08-2022 10:04-0400 Body temperature 97.7 [degF] [facility] 11-08-2022 10:04-0400 Diastolic blood pressure 80 mm[Hg] [facility] 11-08-2022 10:04-0400 Heart rate 72 /min [facility] 11-08-2022 10:04-0400 Respiratory rate 18 /min [facility] 11-08-2022 10:04-0400 SaO2% (BldA) [Mass fraction] 96 % [facility] 11-08-2022 10:04-0400 Systolic blood pressure 130 mm[Hg] [facility] 10-24-2022 08:59-0400 Heart rate 63 /min Pawan Zumbar [facility] 10-24-2022 08:59-0400 SaO2% (BldA) [Mass fraction] 95 % Pawan Zumbar [facility] 10-24-2022 08:59-0400 Diastolic blood pressure 77 mm[Hg] Pawan Zumbar [facility] 10-24-2022 08:59-0400 Mean blood pressure 90 mm[Hg] Pawan Zumbar [facility] 10-24-2022 08:59-0400 Systolic blood pressure 118 mm[Hg] Pawan Zumbar [facility] 10-24-2022 08:48-0400 Diastolic blood pressure 108 mm[Hg] Pawan Zumbar [facility] 10-24-2022 08:48-0400 Heart rate 66 /min Pawan Zumbar [facility] 10-24-2022 08:48-0400 Respiratory rate 18 /min Pawan Zumbar [facility] 10-24-2022 08:48-0400 SaO2% (BldA) [Mass fraction] 92 % Pawan Zumbar [facility] 10-24-2022 08:48-0400 Systolic blood pressure 153 mm[Hg] Pawan Zumbar [facility] 10-24-2022 07:25-0400 Heart rate 72 /min Pawan Zumbar [facility] 10-24-2022 07:25-0400 SaO2% (BldA) [Mass fraction] 93 % Pawan Zumbar [facility] 10-24-2022 07:25-0400 Diastolic blood pressure 67 mm[Hg] Pawan Zumbar [facility] 10-24-2022 07:25-0400 Mean blood pressure 81 mm[Hg] Pawan Zumbar [facility] 10-24-2022 07:25-0400 Systolic blood pressure 109 mm[Hg] Pawan Zumbar [facility] 10-24-2022 07:25-0400 Body temperature 97.7 [degF] Pawan Zumbar [facility] 10-24-2022 07:25-0400 Respiratory rate 16 /min Pawan Zumbar [facility] 09-27-2022 09:21-0500 Diastolic blood pressure 69 mm[Hg] Pawan Zumbar [facility] 09-27-2022 09:21-0500 Heart rate 75 /min Pawan Zumbar [facility] 09-27-2022 09:21-0500 Mean blood pressure 83 mm[Hg] Pawan Zumbar [facility] 09-27-2022 09:21-0500 Systolic blood pressure 111 mm[Hg] Pawan Laureano [facility] 09-14-2022 10:47-0500 Blood Pressure Location [facility] 09-14-2022 10:47-0500 Body temperature 98.96 [degF] [facility] 09-14-2022 10:47-0500 Diastolic blood pressure 74 mm[Hg] [facility] 09-14-2022 10:47-0500 Heart rate 73 /min [facility] 09-14-2022 10:47-0500 SaO2% (BldA) [Mass fraction] 93 % [facility] 09-14-2022 10:47-0500 Systolic blood pressure 130 mm[Hg] [facility] 08-28-2022 10:42-0500 Blood Pressure Location [facility] 08-28-2022 10:42-0500 Body temperature 97.7 [degF] [facility] 08-28-2022 10:42-0500 Diastolic blood pressure 72 mm[Hg] [facility] 08-28-2022 10:42-0500 Heart rate 74 /min [facility] 08-28-2022 10:42-0500 SaO2% (BldA) [Mass fraction] 94 % [facility] 08-28-2022 10:42-0500 Systolic blood pressure 106 mm[Hg] [facility] 08-23-2022 14:33-0500 Diastolic blood pressure 73 mm[Hg] Pawan Zumbar [facility] 08-23-2022 14:33-0500 Heart rate 67 /min Pawan Zumbar [facility] 08-23-2022 14:33-0500 Mean blood pressure 88 mm[Hg] Pawan Zumbar [facility] 08-23-2022 14:33-0500 Respiratory rate 20 /min Pawan Zumbar [facility] 08-23-2022 14:33-0500 Systolic blood pressure 118 mm[Hg] Pawan Zumbar [facility] 08-23-2022 07:44-0500 Blood Pressure Location [facility] 08-23-2022 07:44-0500 Body temperature 97.88 [degF] [facility] 08-23-2022 07:44-0500 Diastolic blood pressure 78 mm[Hg] [facility] 08-23-2022 07:44-0500 Heart rate 78 /min [facility] 08-23-2022 07:44-0500 Respiratory rate 16 /min [facility] 08-23-2022 07:44-0500 SaO2% (BldA) [Mass fraction] 94 % [facility] 08-23-2022 07:44-0500 Systolic blood pressure 130 mm[Hg] [facility] 08-01-2022 17:02-0500 Blood Pressure Location [facility] 08-01-2022 17:02-0500 Body temperature 97.88 [degF] [facility] 08-01-2022 17:02-0500 Diastolic blood pressure 70 mm[Hg] [facility] 08-01-2022 17:02-0500 Heart rate 85 /min [facility] 08-01-2022 17:02-0500 SaO2% (BldA) [Mass fraction] 92 % [facility] 08-01-2022 17:02-0500 Systolic blood pressure 120 mm[Hg] [facility] 06-22-2022 12:00-0500 Diastolic blood pressure 70 mm[Hg] [facility] 06-22-2022 12:00-0500 Mean blood pressure 90 mm[Hg] [facility] 06-22-2022 12:00-0500 Systolic blood pressure 130 mm[Hg] [facility] 06-22-2022 11:52-0500 Blood Pressure Location [facility] 06-22-2022 11:52-0500 Body temperature 98.24 [degF] [facility] 06-22-2022 11:52-0500 Diastolic blood pressure 98 mm[Hg] [facility] 06-22-2022 11:52-0500 Heart rate 73 /min [facility] 06-22-2022 11:52-0500 SaO2% (BldA) [Mass fraction] 95 % [facility] 06-22-2022 11:52-0500 Systolic blood pressure 140 mm[Hg] [facility] 06-08-2022 13:40-0400 Diastolic blood pressure 76 mm[Hg] Katrina Urena MD Work Phone: [facility] 06-08-2022 13:40-0400 Heart rate 77 /min Katrina Urena MD Work Phone: [facility] 06-08-2022 13:40-0400 Respiratory rate 16 /min Katrina Urena MD Work Phone: [facility] 06-08-2022 13:40-0400 SaO2% (BldA) [Mass fraction] 94 % Katrina Urena MD Work Phone: [facility] 06-08-2022 13:40-0400 Systolic blood pressure 119 mm[Hg] Katrina Urena MD Work Phone: [facility] 06-08-2022 13:03-0400 Body temperature 97.7 [degF] Katrina Urena MD Work Phone: [facility] 06-08-2022 12:10-0400 Body height 185.4 cm Katrina Urena MD Work Phone: [facility] 06-08-2022 12:10-0400 Body weight 144.24 kg Katrina Urena MD Work Phone: [facility] 02-22-2022 09:29-0400 Blood Pressure Location Gonzales DIAZL [facility] 02-22-2022 09:29-0400 Diastolic blood pressure 76 mm[Hg] Gonzales NILL [facility] [place] 02-22-2022 09:29-0400 Heart rate 78 /min Gonzales NILL [facility] 02-22-2022 09:29-0400 Respiratory rate 16 /min Gonzales NILL [facility] 02-22-2022 09:29-0400 Systolic blood pressure 120 mm[Hg] Gonzales NILL [facility] [place] 02-20-2022 07:43-0400 Blood Pressure Location [facility] 02-20-2022 07:43-0400 Body temperature 97.88 [degF] [facility] 02-20-2022 07:43-0400 Diastolic blood pressure 72 mm[Hg] [facility] 02-20-2022 07:43-0400 Heart rate 81 /min [facility] 02-20-2022 07:43-0400 Respiratory rate 18 /min [facility] 02-20-2022 07:43-0400 SaO2% (BldA) [Mass fraction] 94 % [facility] 02-20-2022 07:43-0400 Systolic blood pressure 124 mm[Hg] [facility] 12-14-2021 15:06-0400 Blood Pressure Location [facility] Care 12-14-2021 15:06-0400 Body temperature 98.06 [degF] [facility] 12-14-2021 15:06-0400 Diastolic blood pressure 72 mm[Hg] [facility] 12-14-2021 15:06-0400 Heart rate 70 /min [facility] 12-14-2021 15:06-0400 Respiratory rate 18 /min [facility] 12-14-2021 15:06-0400 SaO2% (BldA) [Mass fraction] 93 % [facility] 12-14-2021 15:06-0400 Systolic blood pressure 122 mm[Hg] [facility] Encounters Encounter Date Encounter Type Care Provider Facility Start: 07-17-2023 End: 07-18-2023 ambulatory Basem Jose Alejandro. Murillo Facility:[facility] Start: 07-17-2023 End: 07-17-2023 Patient encounter procedure Basem Jose Alejandro. Murillo [facility] Start: 07-10-2023 End: 07-11-2023 ambulatory Basem G. Murillo Facility:[facility] Start: 07-09-2023 End: 07-10-2023 ambulatory Mhd Yaser Al-Marrawi Facility:[facility] Start: 07-09-2023 End: 07-09-2023 Patient encounter procedure Mhd Yaser Al-Marrawi [facility] Start: 07-08-2023 End: 07-09-2023 ambulatory Mhd Yaser Al-Marrawi Facility:[facility] Start: 06-26-2023 End: 06-27-2023 ambulatory Mt GOODEN Facility:[facility] Start: 06-26-2023 End: 06-26-2023 Patient encounter procedure Matty Fieldsd [facility] Start: 06-19-2023 End: 06-19-2023 ambulatory Kalli Copsey Facility:[facility] Start: 06-11-2023 End: 06-12-2023 ambulatory KALLI COPSEY Facility:[facility] Start: 06-11-2023 End: 06-11-2023 Patient encounter procedure KALLI DALTON [facility] Start: 06-03-2023 End: 06-04-2023 ambulatory Mt A MAMTA Facility:[facility] Start: 06-03-2023 End: 06-03-2023 Patient encounter procedure Mt A MAMTA [facility] Start: 06-03-2023 End: 06-04-2023 ambulatory Mt A MAMTA Facility:[facility] Start: 06-03-2023 End: 06-03-2023 Patient encounter procedure Mt A MAMTA [facility] Start: 04-23-2023 End: 04-24-2023 ambulatory Osvaldo Garza Facility:[facility] Start: 04-23-2023 End: 04-23-2023 Patient encounter procedure Bryce Lieberman [facility] Start: 04-10-2023 End: 04-11-2023 ambulatory Mhd Yaser Al-Marrawi Facility:[facility] Start: 04-10-2023 End: 04-10-2023 Patient encounter procedure Mhd Yaser Al-Marraalfonzo [facility] Start: 04-09-2023 End: 04-10-2023 ambulatory Mhd Yaser Al-Piedadrawi Facility:[facility] Start: 04-09-2023 End: 04-09-2023 Patient encounter procedure Mitch Amaro [facility] Start: 04-05-2023 End: 04-06-2023 ambulatory Mhd Yaser Al-Marrawi Facility:[facility] Start: 04-05-2023 End: 04-05-2023 Patient encounter procedure Mhd Yaser Al-Marraalfonzo [facility] Start: 03-29-2023 End: 03-30-2023 ambulatory Matty Murillo Facility:[facility] Start: 03-29-2023 End: 03-29-2023 Patient encounter procedure Matty Murillo [facility] Start: 03-13-2023 End: 03-13-2023 Emergency department patient visit Jordan Dean Facility:[facility] Start: 03-13-2023 End: 03-13-2023 Emergency department patient visit Jordan SJase Dean [facility] Start: 03-11-2023 End: 03-12-2023 ambulatory Ahkarld Angelito Facility:[facility] Start: 03-11-2023 End: 03-11-2023 Patient encounter procedure Mhd Lizethser Al-Piedadraalfonzo [facility] Start: 03-01-2023 End: 03-02-2023 ambulatory Kevin LOBO Facility:[facility] Start: 02-20-2023 End: 03-22-2023 ambulatory Mt GOODEN Facility:CD:[id number] Start: 02-18-2023 End: 02-19-2023 Evaluation and management of inpatient Ahmad Moussawi Facility:[facility] Start: 02-18-2023 End: 02-19-2023 ambulatory Mt A KAPLE Facility:[facility] Start: 02-18-2023 End: 02-19-2023 Evaluation and management of inpatient Kate Eaton [facility] Start: 02-18-2023 End: 02-18-2023 Patient encounter procedure Mt A KAPLE [facility] Start: 02-15-2023 End: 02-16-2023 ambulatory Mt A KAPLE Facility:[facility] Start: 02-15-2023 End: 02-15-2023 Patient encounter procedure Mt A KAPLE [facility] Start: 01-25-2023 End: 01-26-2023 ambulatory MT A KAPLE Facility:[facility] Start: 01-25-2023 End: 01-25-2023 ambulatory MT A KAPLE Facility:[facility] Start: 01-23-2023 End: 01-24-2023 ambulatory [facility] Facility:[facility] Start: 12-17-2022 Telephone encounter Juma dupont MD Work Phone: Rheumatology Comment on above: Results Start: 12-10-2022 End: 12-11-2022 ambulatory Mt A KAPLE Facility:[facility] Start: 12-10-2022 End: 12-10-2022 Patient encounter procedure Mt A KAPLE [facility] Start: 12-05-2022 End: 12-05-2022 ambulatory MT A KAPLE Facility:[facility] Start: 12-05-2022 End: 12-05-2022 Subsequent hospital visit by physician Shelbie [facility] Comment on above: Bilateral low [...] Rheumatology Comment on above: Received [facility] Start: 12-02-2022 End: 12-02-2022 Emergency department [facility] Start: 12-02-2022 End: 12-02-2022 Emergency department patient visit [facility] Start: 11-29-2022 End: 11-30-2022 ambulatory Mt GOODEN Facility:[facility] Start: 11-29-2022 End: 11-29-2022 Pain Management Pawan Laureano [facility] Start: 11-19-2022 End: 11-20-2022 ambulatory Mt GOODEN Facility:[facility] Start: 11-19-2022 End: 11-19-2022 Patient encounter procedure Mt GOODEN [facility] Start: 11-14-2022 End: 11-14-2022 ambulatory JUMA MONK Facility:[facility] Start: 11-14-2022 End: 11-14-2022 Office outpatient new 45 minutes Juma Monk MD Work Phone: Rheumatology Comment on above: Chronic right-sided low back pain with right-sided sciatica (Primary Dx) Start: 11-08-2022 End: 11-09-2022 ambulatory Mt GOODEN Facility:[facility] Start: 11-08-2022 End: 11-08-2022 Patient encounter procedure Mt GOODEN [facility] Start: 10-24-2022 End: 10-25-2022 ambulatory Pawan Zumbar Facility:[facility] Start: 10-24-2022 End: 10-24-2022 Pain Management Pawan Zumbar [facility] Start: 09-27-2022 End: 09-28-2022 ambulatory tM A MAMTA Facility:[facility] Start: 09-27-2022 End: 09-27-2022 Pain Management Pawan Zumbar [facility] Start: 09-18-2022 End: 09-19-2022 ambulatory Mt GOODEN Facility:[facility] Start: 09-18-2022 End: 09-18-2022 Patient encounter procedure Mt GOODEN [facility] Start: 09-14-2022 End: 09-15-2022 ambulatory Thao Duncan Facility:[facility] Start: 09-14-2022 End: 09-14-2022 Patient encounter procedure Thao Duncan [facility] Start: 09-10-2022 End: 09-11-2022 ambulatory Pawan Laureano Facility:[facility] Start: 09-10-2022 End: 09-10-2022 Patient encounter procedure Pawan Lear [facility] Start: 09-04-2022 ambulatory Thao Duncan Facili ty:[facility] Start: 08-28-2022 End: 08-29-2022 ambulatory Mt GOODEN Facility:[facility] Start: 08-28-2022 End: 08-28-2022 Patient encounter procedure Mt GOODEN [facility] Start: 08-28-2022 End: 08-28-2022 Well adult monitoring check done Mt GOOD[facility] Start: 08-23-2022 End: 08-24-2022 ambulatory Thao Duncan Facility:[facility] Start: 08-23-2022 End: 08-23-2022 Pain Management Pawan Laureano [facility] Start: 08-23-2022 End: 08-24-2022 ambulatory Mt GOODEN Facility:[facility] Start: 08-23-2022 End: 08-23-2022 Patient encounter procedure Mt GOODEN [facility] Start: 08-01-2022 End: 08-02-2022 ambulatory Thao Duncan Facility:[facility] Start: 08-01-2022 End: 08-01-2022 Patient encounter procedure Thao Duncan [facility] Start: 06-22-2022 End: 06-22-2022 Patient encounter procedure Thao Duncan [facility] Start: 06-08-2022 End: 06-08-2022 ambulatory KATRINA URENA Facility:[facility] Start: 06-08-2022 End: 06-08-2022 Subsequent hospital visit by physician Katrina Urena MD Work Phone: Gastroenterology Comment on above: 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] Start: 04-26-2022 Telephone encounter Marguerite Potts RNcoach cleaner Comment on above: Appointment Confirma tion Start: 04-09-2022 End: 04-10-2022 ambulatory KATRINA URENA Facility:[facility] Start: 04-09-2022 End: 04-10-2022 ambulatory KATRINA URENA Facility:[facility] Start: 04-09-2022 End: 04-09-2022 Patient encounter procedure Katrina Urena MD Work Phone: Gastroenterology Comment on above: Mccarty's esophagus with dysplasia (Primary Dx) Start: 02-22-2022 End: 02-22-2022 Patient encounter procedure Gonzales ROBBINS [facility] [place] Start: 02-20-2022 End: 02-20-2022 Patient encounter procedure Mt GOODEN [facility] Start: 12-14-2021 End: 12-14-2021 Patient encounter procedure Mt GOODEN [facility] Start: 03-18-2021 End: 12-06-[address] GOODEN [facility] Procedures Date Procedure Procedure Detail Performing [...] cleared fda spec home use Sky Howe APRN.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 Work Phone: Start: 06-08-2022 Esophagogastroduodenoscopy transoral diagnostic Katrina Urena MD Work Phone: Start: 06-08-2022 Gluc bld gluc mntr dev cleared fda spec home use Sky Howe APRN.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 Work Phone: Start: 03-15-2022 Esophagogastroduodenoscopy gastric outlet [...] Author Start: 04-09-2025 DIABETES SCREEN DIABETES SCREEN [facility] Start: 09-05-2023 [facility] Start: 08-26-[facility]23 ambulatory Facility:[facility] Start: 04-12-2023 Influenza vaccination INFLUENZA (#1) [facility] Start: 12-17-2022 End: 02-16-2023 C reactive protein [Mass/volume] in Serum or Plasma C-REACTIVE PROTEIN (CRP) Lab Routine Sacrococcygeal disorders, not elsewhere classified Expected: 12/17/2022, Expires: 02/16/2023 [facility] Work Phone: Comment on above: Expected: 12/17/2022 , Expires: 02/16/2023 Start: 12-17-2022 End: 02-16-2023 Erythrocyte sedimentation rate SED RATE WESTERGREN Lab Routine Sacrococcygeal disorders, not elsewhere classified Expected: 12/17/2022, Expires: 02/16/2023 [facility] Work Phone: Comment on above: Expected: 12/17/2022 , Expires: 02/16/2023 Start: 09-13-2022 COVID-19 VACCINE (5 - Moderna series) COVID-19 VACCINE (5 - Moderna series) [facility] Start: 08-12-2022 ADVANCE DIRECTIVE DISCUSSION ADVANCE DIRECTIVE DISCUSSION [facility] Start: 08-12-2022 DEPRESSION ASSESSMENT DEPRESSION ASS ESSMENT [facility] Start: 04-12-2022 Influenza vaccination INFLUENZA (#1) [facility] Start: 04-09-2022 End: 06-09-2022 Comprehensive metabolic 2000 panel - Serum or Plasma [facility] Work Phone: Comment on above: Expected: 04/09/2022 , Expires: 06/09/2022 Start: 10-12-2021 COVID-19 VACCINE (4 - Booster for Moderna series) COVID-19 VACCINE (4 - Booster for Moderna series) [facility] Start: 08-12-2021 ADVANCE DIRECTIVE DISCUSSION ADVANCE DIRECTIVE DISCUSSION [facility] Start: 08-12-2021 DEPRESSION ASSESSMENT DEPRESSION ASS ESSMENT [facility] Start: 01-27-2013 PNEUMOCOCCAL: 65+ (1 - PCV) PNEUMOCOCCAL: 65+ (1 - PCV) [facility] Start: 01-27-1998 SHINGRIX VACCINE (1 of 2) SHINGRIX VACCINE (1 of 2) [facility] Start: 01-27-1993 COLOGUARD (FIT-DNA) COLOGUARD (FIT-D NA) [facility] Start: 01-27-1993 Colonoscopy COLONOSCOPY [facility] Start: 01-27-1993 COLORECTAL CANCER SCREENING COLORECTAL CANCER SCREENING [facility] Start: 01-27-[address] COLONOGRAPHY [facility] Start: 01-27-1993 DIABETES SCREEN DIABETES SCREEN [facility] Start: 01-27-1993 FECAL OCCULT BLOOD FECAL OCCULT BLOO D [facility] Start: 01-27-1993 SIGMOIDOSCOPY SIGMOIDOSCOPY [facility] Start: 01-27-1983 LIPID SCREEN LIPID SCREEN [facility] Start: 01-27-1967 Urine microalbumin profile DTAP,TDAP,TD (1 - Tdap) [facility] Start: 01-27-1966 ANNUAL PCP TEAM BALLISTICS EXPERT CRISTO DISEASE VISIT ANNUAL PCP TEAM CHRONIC DISEASE VISIT [facility] Start: 01-27-1966 Hepatitis B surface antibody level LDL CHOLESTEROL [facility] Start: 01-27-1966 HEPATITIS C SCREENING HEPATITIS C SC SHEILA [facility] Start: 1960 Adult depression screening assessment DEPRESSION SCREENING [facility] Start: 01-27-1958 3 comp foot exam completed DIABETIC FOOT EXAM [facility] Start: 01-27-1958 Hepatitis B screening URINE AL BUMIN:CREATININE RATIO [facility] Start: 01-27-1958 Hepatitis C antibody , confirmatory test DILATED RETINAL EXAM [facility] Start: 01-27-1954 PNEUMOCOCCAL: 65+ (1 - PCV) PNEUMOCOCCAL: 65+ (1 - PCV) [facility] Start: 01-27-1953 Hemoglobin A1c/Hemoglobin.total in Blood HBA1C [facility] End: 04-09-2023 EGD DIAGNOSTIC EGD DIAGNOSTIC Endoscopy Routine Mccarty's esophagus with dysplasia 1 Occurrences starting 04/09/2022 until 04/09/2023 [facility] Work Phone: Comment on above: 1 Occurrences starti ng 04/09/2022 until 04/09/2023 End: 01-16-2024 Mri pelvis w/o contrast material MRI SACRUM/COCCYX WO IVCON Radiology Routine Sacrococcygeal disorders, not elsewhere classified 1 Occurrences starting 12/17/2022 until 01/16/2024 [facility] Work Phone: Comment on above: 1 Occurrences starti ng 12/17/2022 until 01/16/2024 End: 01-05-2024 Radiologic examination sacroiliac jnts <3 views XR SACROILIAC JOINTS 2V AP PELVIS/FERGUESON Radiology Routine Bilateral low back pain with sciatica, sciatica laterality unspecified, unspecified chronicity 1 Occurrences starting 12/05/2022 until 01/05/2024 [facility] Work Phone: Comment on above: 1 Occurrences starti ng 12/05/2022 until 01/05/2024 Radiologic examinati on sacroiliac jnts <3 views XR SACROILIAC JOINTS 2V AP PELVIS/FERGUESON Radiology Routine Bilateral low back pain with sciatica, sciatica laterality unspecified, unspecified chronicity 12/05/2022 1:53 PM EDT [facility] Work Phone: SURGICAL PATHOLOGY [facility] Work Phone: Comment on above: Release Upon Josuein g for 1 Occurrences starting 06/08/2022, 1 completed [facility] Immunizations Immunization Date Immunization Notes Care Provider Hyun rico 06-29-2023 canakinumab Mhfranky Leon [facility] Comment on above: Result Comment: RSV Vaccine [facility] 05-16-2023 influenza virus vacc ine, unspecified formulation Mt AMBERLYMARLENA [facility] 05-16-2023 SARS-CoV-2 (COVID-19 ) mRNA-1273 vaccine Mt GOODEN [facility] Comment on above: Result Comment: give n per [facility] 05-13-2022 influenza virus vacc ine, unspecified formulation [facility] 05-13-2022 SARS-CoV-2 (COVID-19 ) mRNA-1273 vaccine [facility] 06-14-2021 COVID-19, mRNA, LNP- S, PF, 100 mcg or 50 mcg dose; Translations: [SARS-CoV-2 (COVID-19) mRNA-1273 vaccine] Mt GOODEN [facility] 05-19-2021 influenza virus vacc ine, unspecified formulation Mt GOODEN [facility] 01-09-2021 tetanus toxoid, redu hermilo diphtheria toxoid, and acellular pertussis vaccine, adsorbed; Translations: [Adacel (Tdap)] Mt GOODEN [facility] 10-19-2020 COVID-19, mRNA, LNP- S, PF, 100 mcg or 50 mcg dose; Translations: [Moderna COVID-19 Vaccine] Mt GOODEN [facility] Comment on above: Reason for Medicatio n: Other (see comment) 09-21-2020 COVID-19, mRNA, LNP- S, PF, 100 mcg or 50 mcg dose; Translations: [Moderna COVID-19 Vaccine] Mt GOODEN [facility] Comment on above: Reason for Medicatio n: Other (see comment) 05-17-2020 influenza virus vacc ine, unspecified formulation Mt GOODEN [facility] 06-11-2019 influenza virus vacc ine, live, attenuated, for intranasal use Mt GOODEN [facility] Comment on above: Result Comment: done at [facility] in [place] 06-01-2019 influenza virus vacc ine, unspecified formulation Mt GOODEN [facility] 05-29-2019 influenza virus vacc ine, unspecified formulation Mt GOODEN [facility] 07-22-2018 pneumococcal polysaccharide vaccine, 23 valent Mt GOODEN [facility] 07-22-2017 pneumococcal conjuga te vaccine, 13 valent Mt GOODEN [facility] 05-15-2016 influenza virus vacc ine, unspecified formulation Mt GOODEN [facility] 06-23-2014 tetanus toxoid, redu hermilo diphtheria toxoid, and acellular pertussis vaccine, adsorbed Mt GOODEN [facility] Payers Date Payer Category Payer Self-pay 2015 Medicare [id number] 2015 Private Health Insurance [employer] A ETNA MEDICARE SUPPLEMENT [id number] 2015-Present [phone] [address] [address] [place] [address] Indemnity [id number] 2013 Medicare MEDICARE MEDICAR E A AND B [id number] 2013-Present [phone] [place] [address] Medicare [id number] 2013 Medicare [id number] 1948 Unknown [id number] 2.16.840.1.244775.3.579 .2. 1948 Unknown [id number] 2.16.840.1.684629.3.579 .2.72 1948 Unknown [id number] 2.16.840.1.445878.3.579 .2. 1948 Unknown [id number] 2.16.840.1.611504.3.579 .2. 1948 Unknown [id number] 2.16.840.1.833855.3.579 .2 1948 Unknown [id number] 2.16.840.1.462086.3.579 .2. 1948 Unknown [id number] 2.16.840.1.578993.3.579 .2 1948 Unknown [id number] 2.16.840.1.993479.3.579 .2. 1948 Unknown [id number] 2.16.840.1.400902.3.579 .2. 1948 Unknown [id number] 2.16.840.1.093951.3.579 .2. 1948 Unknown [id number] 2.16.840.1.305214.3.579 .2. 1948 Unknown [id number] 2.16.840.1.723372.3.579 .2. 1948 Unknown [id number] 2.16.840.1.721416.3.579 .2 1948 Unknown [id number] 2.16.840.1.605422.3.579 .2. 1948 Unknown [id number] 2.16.840.1.019107.3.579 .2.727 1948 Unknown [id number] 2.16.840.1.030170.3.579 .2. 1948 Unknown [id number] 2.16.840.1.029351.3.579 .2. 1948 Unknown [id number] 2.16.840.1.741590.3.579 .2. 1948 Unknown [id number] 2.16.840.1.906133.3.579 .2. 1948 Unknown [id number] 2.16.840.1.092267.3.579 .2. 1948 Unknown [id number] 2.16.840.1.862494.3.579 .2. 1948 Unknown [id number] 2.16.840.1.626314.3.579 .2 1948 Unknown [id number] 2.16.840.1.561967.3.579 .2. 1948 Unknown [id number] 2.16.840.1.128167.3.579 .2 1948 Unknown [id number] 2.16.840.1.406155.3.579 .2. 1948 Unknown [id number] 2.16.840.1.218401.3.579 .2. 1948 Unknown [id number] 2.16.840.1.162107.3.579 .2. 1948 Unknown [id number] 2.16.840.1.227010.3.579 .2. 1948 Unknown [id number] 2.16.840.1.622841.3.579 .2. 1948 Unknown [id number] 2.16.840.1.666405.3.579 .2 1948 Unknown [id number] 2.16.840.1.166451.3.579 .2.727 1948 Unknown [id number] 2.16.840.1.906742.3.579 .2.727 1948 Unknown [id number] 2.16.840.1.674006.3.579 .2.727 1948 Unknown [id number] 2.16.840.1.561371.3.579 .2.727 1948 Unknown [id number] 2.16.840.1.287503.3.579 .2.72 1948 Unknown [id number] 2.16.840.1.233406.3.579 .2.727 1948 Unknown [id number] 2.16.840.1.448802.3.579 .2.727 1948 Unknown [id number] 2.16.840.1.192622.3.579 .2.72 Unknown [id number] 2.16.840.1.466471.3.579 .2.531 Social History Date Type Detail Facility Start: 09-18-2021 End: 06-03-2023 Tobacco smoking status Never smoked tobacco (finding) [facility] Comment on above: denies denies use Tobacco smoking status Never [facility] Comment on above: denies denies use Start: 09-09-2022 End: 12-05-2022 Sex Assigned At Male [facility] Tobacco smoking status WAIS Tobacco smoking consumption unknown [facility] Start: 1950 Sex Assigned At Not on file [facility] Start: 03-30-2022 End: 04-10-2022 Exposure to SARS-CoV-2 (event) Not sure [facility] Work Phone: Start: 06-08-2022 Tobacco use and exposure Smokeless tobacco non-user [facility] Start: 06-08-2022 End: 12-05-2022 Alcohol intake Current drinker of alcohol (finding) [facility] Start: 06-08-2022 Alcohol Comment occasional [facility] Tobacco [facility] Comment on above: Denies Tobacco smoking status No Smoking Status Entered [facility] Start: 09-09-2022 End: 12-05-2022 History of Social function [facility] Functional Status Date Assessment Result Facility 07-17-2023 Functional Status No [facility] 06-26-2023 Functional Status No [facility] 06-03-2023 Functional Status N/A [facility] 03-13-2023 Functional Status N/A [facility] 02-18-2023 Functional Status No [facility] 02-18-2023 Functional Status N/A [facility] 12-10-2022 Functional Status N/A [facility] 12-02-2022 Functional Status N/A [facility] 11-29-2022 Functional Status N/A [facility] 11-08-2022 Functional Status N/A [facility] 09-27-2022 Functional Status N/A [facility] 09-14-2022 Functional Status N/A [facility] 08-28-2022 Functional Status N/A [facility] 08-23-2022 Functional Status N/A [facility] 08-23-2022 Functional Status N/A [facility] 08-01-2022 Functional Status N/A [facility] 06-22-2022 Functional Status N/A [facility] 02-22-2022 Functional Status N/A [facility] [place] 02-20-2022 Functional Status N/A [facility] Clinical Notes 02-20-2022 to [...] drinks. ?Tomatoes and foods made with tomatoes. ?Spangle or spicy foods. ?Chocolate and peppermint. Do not drink alcohol. General instructions Take djqr-ehn-sofpath and prescription medicines only as told by [...] provider. Document Revised: 10/15/2020 Document Reviewed: 10/15/2020 Spectrum5 Patient Education 2022 StudioEX. 06/03/2023 14:30:19 Edema, Pcfr-am-Pzyt Edema Edema is when you have too [...] Follow these instructions at home: Medicines Take jbgs-ryj-auywijd and prescription medicines only as told by [...] provider. Document Revised: 04/02/2022 Document Reviewed: 04/02/2022 Spectrum5 Patient Education 2022 StudioEX. Follow Up Care 03/01/2023 14:08:40 With:MAMTA LEE FAAFP, BEATRIZ Rebolledo, PED Address: [address] [place] [address]- When:Within 3 Month(s) [facility] 04-09-2023 Hospital Discharg e instructions Follow Up Care 04/09/2023 10:50:51 With:Azra Leon Address: [facility] [address] [place] [address]- [phone] Business (1) When: Unknown Comments:Continue Eliquis 5 mg twice daily long-term due to multiple comorbidities and history of 2 separate events of pulmonary emboli one of them is unprovoked.Follow CBCD, CMp and D dimer every 6 months. THis can be done and monitored by his PCP Dr Soriano as per patient wishes.RTC with us only as needed. [facility] 03-13-2023 Evaluation + Plan note Extrac jaun from: Title:ED Note Author:Jordan Dean DO Date :03/13/23 Cellulitis (L03.90: Cellulit is, unspecified) Orders: cephalexin, 500 mg = 1 cap(s), Cap, Oral, Once, Stop date 03/13/23 4:15:00 EDT, STAT, Start date 03/13/23 4:15:00 EDT, 03/13/23 4:15:00 EDT cephalexin, 500 mg = 1 cap(s), Oral, q6hr, X 7 day(s), # 28 cap(s), Refills(s) 0, Pharmacy: [facility]/pharmacy #[id number], 185.4, cm, 03/13/23 2:24:00 EDT, [...] 09:45:00 AM Scheduled Provider: Location:.Sleep Clinic Appointment Type:MANAGER SPECIALTY Sleep Study Clinic Follow Up (FT) Appointment Date:04/09/2023 10:00:00 AM Scheduled Provider: [facility] Type:ONC Office Visit 30 (FT) Appointment Date:06/03/2023 01:20:00 PM Scheduled Provider:Mt GOODEN DO, FAAFP Location:[facility] Appointment Type: Open Appointment Date:08/26/2023 11:00:00 [...] Function Panel 09/10/22 * Lipid Panel 09/10/[address] [facility]08-02-2023 Hospital Discharge instructions Patient Education 03/13/2023 [...] Follow these instructions at home: Medicines Take hlyq-ozi-pjnjvmd and prescription medicines only as told by [...] such as antibiotic medicines or antihistamines. Take bwip-gkx-brnovta and prescription medicines only as told by [...] provider. Document Revised: 05/10/2022 Document Reviewed: 05/10/2022 Spectrum5 Patient Education 2022 StudioEX. Follow Up Care 03/13/2023 02:16:08 With:Mt GOODEN Address: [address], [facility] [place] [address]- Business (1) When:Within 3 Day(s) [facility]07-31-2023 Hospital Discharge instructions Follow Up Care 03/11/2023 11:30:23 With:Azra Leon Address: [facility] [address] [place] [address]- [phone] Business (1) When: Unknown Comments:Continue Eliguis 5 mg twice daily nursing home.Antithrombin III and D dimer today.D dimer and CBCD, CMP in 3 months.RTC in [address] [facility]07-19-2023 Hospital Discharge instructions Follow Up Care 02/27/2023 09:23:46 With:Azra Leon Address: [facility] [address] [place] [address] [phone] Business (1) When: Unknown Comments:Thrombophilia panel labs today.Continue Eliquis 5 mg twice daily long- term as long as there is no major bleeding events.Return in 1 month with CBC differential and CMP. [facility]07-18-2023 Hospital Discharge instructions Follow Up Care 02/26/2023 10:50:00 With:Chidi ESPINAL, [place], PUL, JERILYN Address: [address] [place] [address] [facility] ([facility] [place] [address]- When: Unknown Comments:after his testing is completed [facility]07-11-2023 Hospital Discharge instructions Patient Education 02/19/2023 [...] Follow these instructions at home: Medicines Take cgyi-xxp-ennofkt and prescription medicines only as told by [...] is important. Where to find more information [place] [employer] Association: www.lung.org Centers for Disease Control [...] provider. Document Revised: 06/30/2021 Document Reviewed: 06/30/2021 Spectrum5 Patient Education 2022 StudioEX. Follow Up Care 02/18/2023 08:49:44 With:[facility] Address:Unknown When: Unknown Comments:[facility] will contact you to set up a home visit. Thank you. With:Ralph Jennings Address: [address] [place] [address]- Business (1) When: Unknown Comments:Chronic Venous InsufPlease call Kike at Dr. Jennings's office in [place] to make a follow up appointment. The phone number is [phone]. Thank you. With:Matty Murillo Address: [address] [place] [address] [facility] ([facility] [place] [address]- Business (1) When: Unknown Comments:needs PFTs and sleep studyThe central scheduling department at [facility] will need to schedule the PFT's. Please contact Dr. Murillo's offic eto set up a time for your sleep study. Thank you. With:Mitch Amaro Address: [facility] [address] [place] [address]. [place] [address]- When: Unknown Comments:2nd DVTDr. Amaro office will contact you to set up an appointment. If you do not hear from themin 3 days, then call [phone] and asked for Oncology/ Hematology department. Thank you. With:Mt GOODEN Address: [address], [place] [address]- Business (1) When:03/01/2023 13:00:00 Comments:Your follow up appointment is with Dr. Lobo. Thank you. [facility]07-11-2023 NoteFisher R Adams Cowley Shock Trauma CenterComment on above:Result Comment: Electronically Signed By: Angelito ESPINAL, Kate\.br\Date and Time Signed: 02/19/23 13:17 [id number] Evaluation + Plan noteExtracted from: Title:Discharge Note [...] (at bedtime), 3 refills Flonase 0.05 mg/inh [place], 2 spray(s), Nasal, Daily, 11 refills, Not [...] With When Contact Information Ralph Jennings [address] [place] [address]- Business (1) Additional Instructions: Chronic Venous Insuf Matty Murillo [address] [facility]ascular[facility] [place] [address]- Business (1) Additional Instructions: needs PFTs and sleep study Mitch Amaro [facility] [address] [place] [address]- Additional Instructions: 2nd DVT Mt GOODEN In [address] [place] [address]- Business (1) Additional Instructions: Addendum by Angelito ESPINAL, [facility] ad on February 19, 2023 13:16:49 EDT [...] Title:Admission H & P Author:Angelito ESPINAL, [facility] Date:02/18/23 73-year-old male with a [...] Lipid Panel 02/20/22 * Lipid Panel 09/10/[address] [facility]07-10-2023 NoteFishMercy Medical CenterComment on above:Result Comment: Electronically Signed By: Angelito ESPINAL, Kate\.br\Date and Time Signed: 02/18/23 13:49 [id number] Hospital Discharge instructions Patient Education 02/18/2023 08:47:22 [...] provider. Document Revised: 03/13/2021 Document Reviewed: 03/13/2021 Spectrum5 Patient Education 2022 StudioEX. 02/18/2023 08:47:20 Heart Failure Exacerbation Heart Failure [...] Follow these instructions at home: Medicines Take lbsp-dhx-cpghgkl and prescription medicines only as told by your health care provider. Do not stop taking your medicines or change the amount you take. If you are having problems or sideeffects from your medicines, talk to your health care provider. If you are having difficulty paying for your medicines, contact a group social worker or your clinic. There are many programs [...] provider. Document Revised: 02/18/2021 Document Reviewed: 02/18/2021 Spectrum5 Patient Education 2022 StudioEX. Follow Up Care 08/23/2022 08:23:28 With:MAMTA LEE FAAFP, Mt Morillo, FAM, PED Address: [address] [place] [address]- When:Within 1 Month(s) [facility] 06-16-2023 NoteHNO ID: [id number] Author: RT Katty(R) Service: ? Author Type: [...] BY: RT Katty(R) January 25, 2023 8:35 [facility]05-08-2023 Miscellaneous Notes* Telephone Encounter - Juma [...] after the test results. documented in this encounterPremier Health [facility] Center05-01-2023 Hospital Discharge instructions Patient Education 12/10/2022 10:35:03 Edema, Krgu-cr-Qhtx Edema Edema is when you have too [...] Follow these instructions at home: Medicines Take xnou-wfx-xxqcwhi and prescription medicines only as told by [...] provider. Document Revised: 04/02/2022 Document Reviewed: 04/02/2022 Spectrum5 Patient Education 2022 StudioEX. Follow Up Care 11/26/2022 09:27:23 With:MAMTA LEE FAAFP, BEATRIZ Rebolledo, PED Address: [address], [facility] [place] [address]- When:Within 2 Month(s) [facility] 04-26-2023 NoteHNO ID: [id number] Author: RT Indu(R) Service: ? Author Type: [...] BY: RT Indu(R) December 05, 2022 1:51 [facility]04-26-2023 NoteHNO ID: [id number] Author: Juma Monk MD Service: ? Author Type: Physician Type: Progress Notes Filed: 12/05/2022 1:29 PM Note Text: Rheumatology Outpatient Clinic Date of Service: 12/05/2022 Patient: Jas Gonzalez Medical Record: [id number] Primary Care Physician: No primary care provider [...] 81 mg chewable tablet (more content not included)...[facility]04-26-2023 History of Present illness Narrative* Juma Monk MD - 12/05/2022 1:00 PM EDT Images from the original note were not included. Rheumatology Outpatient Clinic Date of Service: 12/05/2022 Patient: Jas Gonzalez Medical Record: [id number] Primary Care Physician: No primary care provider [...] Full ROM in flexion and extension. Full emergency room specialist strength. No swelling or synovitis along the [...] which included preparing to see the patient, uqlv-vn-ikro patient care, completing clinical documentation, obtaining and/or reviewing separately obtained history, performing a medically appropriate examination, and counseling and educating the patient/family/caregiver. Juma Monk MD, [facility] Rheumatology documented in this encounterPremier Health Atrium Medical Center04-25-2023 Miscellaneous Notes* Telephone Encounter - Angie Lara MA - 12/04/2022 12:44 PM EDT Received outside records for patient. Placed in scanned documents. Angie Lara MA documented in this encounterPremier Health Atrium Medical Center04-23-2023 Hospital Discharge instructions Patient Education 12/02/2022 15:14:40 [...] Follow these instructions at home: Medicines Take vcag-txr-ligzddv and prescription medicines only as told by [...] such as antibiotic medicines or antihistamines. Take kelz-goj-vzamhgn and prescription medicines only as told by [...] provider. Document Revised: 05/10/2022 Document Reviewed: 05/10/2022 Spectrum5 Patient Education 2022 StudioEX. 12/02/2022 15:14:40 Gastrointestinal Bleeding Gastrointestinal Bleeding Gastrointestinal [...] home. Follow these instructions at home: Take ojwy-asq-umgkdve and prescription medicines only as told by [...] on the cause of the bleeding. Take gtax-bcy-nnvviei and prescription medicines only as told by [...] provider. Document Revised: 03/02/2022 Document Reviewed: 03/02/2022 Spectrum5 Patient Education 2022 StudioEX. Follow Up Care 12/02/2022 12:04:07 With:Joycelyn CEHRRY Address: [address] [place] [address] Business (1) When:12/05/2022 15:14:25 Comments:Follow-up for 2 episodes of bright red blood per rectum With:Mt GOODEN Address: [address] [place] [address], [place] [address]- Business (1) When:12/05/2022 15:14:09 Comments:Follow-up for evaluation [...] ifyou develop any new or worsening symptoms. [facility]04-23-2023 Evaluation + Plan noteExtracted from: Title:ED Note Author:Severo Mcnair PA-C e:12/02/22 Blood per rectum (K62.5: Hem orrhage of anus and rectum) Cellulitis (L03.90: Cellulitis, unspecified) Wound of buttock (S31.809A: Unspecified open wound of unspecified buttock, initial encounter) Orders: cephalexin, 500 mg = 1 cap(s), Oral, q8hr, # 30 cap(s), Refills(s) 0, Pharmacy: [facility]/pharmacy #[id number], 182, cm, 12/02/22 12:12:00 EDT, [...] Lipid Panel 02/20/22 * Lipid Panel 09/10/[address] [facility]04-20-2023 Evaluation + Plan noteExtracted from: Title:Clinical [...] Lipid Panel 02/20/22 * Lipid Panel 09/10/[address] [facility]04-05-2023 NoteHNO ID: [id number] Author: Juma Monk MD Service: ? Author Type: Physician Type: Progress Notes Filed: 11/16/2022 9:45 AM Note Text: Rheumatology Outpatient Clinic Date of Service: 11/14/2022 Patient: Jas Gonzalez Medical Record: [id number] Primary Care Physician: No primary care provider [...] 54 U/L 33 ALKAL (more content not included)...[facility]04-05-2023 History of Present illness Narrative* Juma Monk MD - 11/14/2022 1:30 PM EDT Images from the original note were not included. Rheumatology Outpatient Clinic Date of Service: 11/14/2022 Patient: Jas Gonzalez Medical Record: [id number] Primary Care Physician: No primary care provider on file. Referring Provider: HTAO DUNCAN(HISTORICAL) Last Rheumatology visit: 11/14/2022 (with Juma [...] Full ROM in flexion and extension. Full emergency room specialist strength. No swelling or synovitis along the [...] which included preparing to see the patient, pbwm-st-eulu patient care, completing clinical documentation, obtaining and/or reviewing separately obtained history, performing a medically appropriate examination, and counseling and educating the patient/family/caregiver. Juma Monk MD, [facility] Rheumatology documented in this encounterPremier Health At[facility] Center03-30-2023 Hospital Discharge instructions Patient Education 11/08/2022 10:50:05 [...] plan? Your health care provider or certified drug counselor can help you make a plan for [...] stress. Your health care provider or certified drug counselor can help you make a plan for [...] 10/18/2004 Document Revised: 02/20/2018 Document Reviewed: 01/07/2017 Spectrum5 Patient Education 2020 StudioEX. Follow Up Care 10/19/2022 13:04:21 With:MAMTA LEE FAAFP, [place]illo, BEATRIZ, PED Address: [address] [place] [address]- When:Within 3 Month(s) [facility] 03-15-2023 Note [id number]:127[facility] 09-10-2022 Hospital Discharge instructions Follow Up Care 09/10/2022 07:55:41 With:Thao Duncan DO, FAM, PED Address: [place] [address] When:1 month only if needed Comments:40 mins [facility] 01-17-2023 Hospital Discharge instructions [...] that you work with a diet and director of food and nutrition services (dietitian) tomake a meal plan that is [...] care provider. Work with a counselor or elementary educator to identify strategies to manage stress and any emotional and social challenges. Questions to ask a health care provider Do I need to meet with a elementary educator? Do I need to meet with a dietitian? What number can I call if I have questions? When are the best times to check my blood glucose? Where to find more information: [place] Diabetes Association: diabetes.org Academy of Nutrition and Dietetics: www.eatright.org National [place] of Diabetes and Digestive and Kidney Diseases (NIH): www.niddk.nih.gov Summary A healthy meal plan will help you control your blood glucose and maintain a healthy lifestyle. Working with a diet and director of food and nutrition services (dietitian) can help you make a meal [...] 04/25/2006 Document Revised: 07/11/2018 Document Reviewed: 09/02/2017 Spectrum5 Patient Education 2020 StudioEX. 08/28/2022 13:59:46 Exercising to Lose Weight Exercising [...] your health care provider or diet and director of food and nutrition services (dietitian). This may include: ?Eating fewer calories. [...] 08/31/2011 Document Revised: 08/11/2018 Document Reviewed: 08/11/2018 Spectrum5 Patient Education 2020 StudioEX. 08/28/2022 13:59:43 BMI for Adults BMI for [...] height. This can be done either in [place] (U.S.) or metric measurements. Note that charts are available to help you find your BMI quickly and easily without having to do these calculations yourself. To calculate your BMI in [place]ian ([place].S[place] measurements, your health care provider will: [...] medical problems. BMI can be measured using [place]ian measurements or metric measurements. To interpret your [...] 04/09/2005 Document Revised: 07/11/2018 Document Reviewed: 06/11/2018 [employer] Patient Education 2019 StudioEX. [facility] 01-12-2023 Hospital Discharge instructions [...] drinks. ?Tomatoes and foods made with tomatoes. ?Spangle or spicy foods. ?Chocolate and peppermint. Do not drink alcohol. General instructions Take ijbs-ggh-zjwufxd and prescription medicines only as told by [...] 10/18/2004 Document Revised: 11/24/2018 Document Reviewed: 11/24/2018 Spectrum5 Patient Education 2020 Spectrum[employer] Inc. 08/23/2022 08:15:04 Budget-Friendly Healthy Eating Budget-Friendly [...] frozen fruits, and frozen vegetables. Avoid buying jztfi-iy-gmd foods, such as pre-cut fruits and vegetables [...] 04/01/2015 Document Revised: 07/30/2018 Document Reviewed: 07/30/2018 Spectrum5 Patient Education 2020 StudioEX. Follow Up Care 02/20/2022 08:09:19 With:MAMTA LEE FAAFP, [place] Morillo, BEATRIZ, PED Address: [address] [place] [address] [facility] [place] [address]- When:Within 6 Month(s) [facility] 12-21-2022 Hospital Discharge instructions Patient Education 08/01/2022 18:07:47 Heat Therapy, Cphd-qf-Jthx Heat Therapy Heat therapy can help ease [...] 10/20/2012 Document Revised: 09/21/2019 Document Reviewed: 08/09/2018 Spectrum5 Patient Education 2020 Spectrum5 Inc. Follow Up Care 07/04/2022 17:02:06 With:ePrla LEE, BEATRIZ Oneil, PED Address: [address] [place] [address], [facility] [place] [address] When:1 month only if needed Comments:40 mins [facility] 10-28-2022 NoteQ3 Patient Name: [...] changes classified as Mccarty's stage C3-M4 per Mears criteria. These changes involved the mucosa at the upper extent of the gastric folds (41 cm from the incisors) extending to the Z-line (37 cm from the incisors). [place]-colored mucosa was present. The maximum longitudinal extent [...] changes classified as Mccarty's stage C3-M4 per Mears criteria. Biopsied. - 4 cm hiatal hernia. [...] the patient. Procedure Code(s): --- Professional --- 85614 Diagnosis Code(s): --- Professional --- K22.70 K44.9 K29.00 K31.89 CPT copyright 2020 [place] [employer]. All rights reserved. Attending Participation: I personally performed the entire procedure. Scope In: 12:44:02 PM Scope Out: 12:54:52 PM MD Katrina Whaley MD 06/08/2022 12:57:27 PM This report has been signed electronically by Katrina Urena MD Number of Addenda: 0 Note Initiated On: 06/08/2022 12:33 [facility]10-28-2022 Nurse Note* Leonor Osorio RN - 06/08/2022 [...] RN In Department: GASTROENTEROLOGY documented in this encounterPremier Health [facility] Center09-15-2022 Miscellaneous Notes* Telephone Encounter - Marguerite Potts RN - 04/26/2022 3:44 PM EDT Attempted to reach the patient at the contact number that they provided [phone] (home) . 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 call center support representative they must have a responsible adult [...] Number to call with questions or concerns [phone] Number to call to cancel their procedure [phone] Marguerite Potts RN documented in this encounterPremier Health Atrium [facility] Center08-29-2022 NoteHNO ID: [id number] Author: Katrina Urena MD Service: ? Author [...] concerned about possible dysplasia [facility], still pending; patient denies pain or GERD symptoms. Past Medical History: Ongoing: Mccarty's esophagus with dysplasia BMI 40-44-9 BPH associated with nocturia Diabetes Mellitus Dietary Counseling GERD with hiatal hernia MCFP current use of oral hypoglycemic drug Lumbar [...] Findings: The affected area was not inflamed. Mears classification C 40, M 35. Biopsy collected. [...] Past Histories independently gathered by the clinical emotional support teacher and the remaining scribed note accurately describes my personal service to the patient. Katrina Urena M.D. 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 Mears classification C 40, M 35. Biopsy collected. [...] Past Histories independently gathered by the clinical emotional support teacher and the remaining scribed note accurately describes my personal service to the patient. Katrina Urena M.D. Office:[phone] [facility] [phone] Fax [phone] documented in this encounterPremier Health [facility] Center07-12-2022 Hospital Discharge instructions Patient Education 02/20/2022 08:08:00 [...] an appointment to see a diet and director of food and nutrition services (registered dietitian) to help you create a healthy eating plan. General instructions Check your blood glucose levels as told by your health care provider. Take smvp-qtc-xocetsi and prescription medicines only as told by [...] 09/17/2006 Document Revised: 07/11/2018 Document Reviewed: 08/31/2016 Spectrum5 Patient Education 2020 Spectrum5 Inc. 02/20/2022 08:07:58 Type 2 Diabetes Mellitus, Self Care, Adult, Vrjn-ys-Rduk Type 2 Diabetes Mellitus, Self Care, Adult [...] and canola oil. Meet with a food tester (dietitian). He or she can help you [...] for cuts, bruises, redness, blisters, or sores. [place] your teeth and gums two times a day. Floss one or more times a day. Go to the dentist one or more times every 6 months. Stay at a healthy weight. General instructions Take kems-pnq-uzvfvro and prescription medicines only as told by your doctor. Share your diabetes care plan with: ?Your work or school. ?People you live with. Carry a card or wear jewelry that says you have diabetes. Keep all follow-up visits as told by your doctor. This is important. Questions to ask your doctor Do I need to meet with a elementary educator? Where can I find a support group for people with diabetes? Where to find more information To learn more about diabetes, visit: [place] Diabetes Association: www.diabetes.org [place] Association of Diabetes Educators: www.diabeteseducator.org Summary When [...] 11/19/2016 Document Revised: 01/19/2019 Document Reviewed: 08/31/2016 Spectrum5 Patient Education 2020 [employer]. 02/20/2022 08:07:54 Type 2 Diabetes Mellitus, Self [...] treat it right away. Always have a 95-pyqzzkgba-vkogty carbohydrate snack with you to treat low [...] an appointment to see a diet and director of food and nutrition services (registered dietitian) to help you create an [...] your health care provider once every year. [place] your teeth and gums two times a day, and floss one or more times a day. Visit your dentist one or more times every 6 months. Maintain a healthy weight. General instructions Take esmk-fqs-jilmrdy and prescription medicines only as told by your health care provider. Share your diabetes management plan with people in your workplace, school, and household. Carry a medical alert card or wear medical alert jewelry. Keep all follow-up visits as told by your health care provider. This is important. Questions to ask your health care provider Do I need to meet with a elementary educator? Where can I find a support group for people with diabetes? Where to find more information For more information about diabetes, visit: [place] [employer] (ADA): www.diabetes.org [place] [employer] Diabetes Educators (AADE): www.diabeteseducator.org Summary [...] 11/19/2016 Document Revised: 01/19/2019 Document Reviewed: 08/31/2016 [employer] Patient Education 2020 [employer]. Follow Up Care 08/22/2021 10:02:38 With:Mt GOODEN DO, FAAFP, BEATRIZ, PED Address: [place] [address]- When:Within 6 Month(s) [facility] Primary Care Evaluation + Plan note Future Appointments Appointment Date:02/20/2022 07:40:00 AM Scheduled Provider:Mt GOODEN DO, FAAFP Location:[facility] Appointment Type:FM Open Appointment Date:09/13/2022 11:00:00 AM Scheduled Provider: Location:[facility] Appointment Type: Medicare Wellness Subsequent Future Scheduled Tests Laboratory* HgbA1c 02/20/21 * HgbA1c 05/23/21 * HgbA1c 08/23/21 * HgbA1c 11/21/21 * HgbA1c 12/13/20 * HgbA1c 01/21/21 * HgbA1c 04/23/21 * HgbA1c 07/23/[address] [facility] Future Appointments Appointment Date:02/22/2022 09:40:00 AM Scheduled Provider:Gonzales ROBBINS MD Location:[facility] Appointment Type:[place] [address] Appointment Date:08/23/2022 07:40:00 AM Scheduled Provider:Mt GOODEN [...] Function Panel 02/20/22 * Lipid Panel 02/20/22 [facility] Primary Care Evaluation + Plan note Future Appointments Appointment Date:03/15/2022 09:00:00 AM Scheduled Provider: Location:[facility] Appointment Type:Surgery FT Appointment Date:08/23/2022 [...] Function Panel 02/20/22 * Lipid Panel 02/20/22 [facility] General Surgery [place] Evaluation + Plan note Future Appointments Appointment [...] Function Panel 02/20/22 * Lipid Panel 02/20/22 [facility] Primary Care Evaluation + Plan note [...] Function Panel 02/20/22 * Lipid Panel 02/20/22 [facility] Primary Care Evaluation + Plan note [...] Lipid Panel 02/20/22 * Lipid Panel 08/23/22 [facility] Primary Care Evaluation + Plan note [...] Lipid Panel 02/20/22 * Lipid Panel 08/23/22 [facility] Primary Care Evaluation + Plan note Future Appointments Appointment Date:09/14/2022 10:40:00 AM Scheduled Provider:Thao Duncan DO Location:[facility] Appointment Type:FM Procedure Appointment Date:09/27/2022 09:15:00 AM Scheduled Provider:Pawan Laureano MD Location:[facility] Appointment Type:Pain Management - Follow Up [...] Lipid Panel 02/20/22 * Lipid Panel 09/10/[address] [facility] Future Appointments Appointment Date:09/18/2022 07:30:00 AM Scheduled Provider: [facility] Appointment Type:US Aorta Procedures (FT) Appointment Date:09/27/2022 09:15:00 AM Scheduled Provider:Pawan Laureano MD Location:[facility] Appointment Type:Pain Management - Follow Up [...] Lipid Panel 09/10/22 Radiology* US Aorta 09/18/22 [facility] Primary Care Evaluation + Plan note Future Appointments Appointment Date:09/27/2022 09:15:00 AM Scheduled Provider:Pawan Laureano MD Location:[facility] Appointment Type:Pain Management - Follow Up [...] Lipid Panel 02/20/22 * Lipid Panel 09/10/[address] [facility] Future Appointments Appointment Date:11/29/2022 09:45:00 AM Scheduled Provider:Pawan Laureano MD Location:[facility] Appointment Type:Pain Management - Follow Up [...] Lipid Panel 02/20/22 * Lipid Panel 09/10/[address] [facility] Future Appointments Appointment Date:11/08/2022 10:00:00 AM Scheduled Provider:Mt GOODEN DO, FAAFP Location:[facility] Appointment Type: Open Appointment Date:11/29/2022 09:45:00 AM Scheduled Provider:Pawan Laureano MD Location:[facility] Appointment Type:Pain Management - Follow Up [...] Lipid Panel 02/20/22 * Lipid Panel 09/10/[address] [facility] Future Appointments Appointment Date:11/29/2022 09:45:00 AM Scheduled Provider:Pawan aLureano MD Location:[facility] Appointment Type:Pain Management - Follow Up [...] Lipid Panel 09/10/22 Radiology* US Aorta 11/08/22 [facility] Primary Care Evaluation + Plan note Future Appointments Appointment Date:11/29/2022 09:45:00 AM Scheduled Provider:Pawan Laureano MD Location:[facility] Appointment Type:Pain Management - Follow Up [...] Lipid Panel 02/20/22 * Lipid Panel 09/10/[address] [facility] Future Appointments Appointment Date:01/23/2023 09:15:00 AM Scheduled Provider:Joycelyn CHERRY MD Location:[facility] Appointment Type:BAD New Patient Appointment [...] Lipid Panel 02/20/22 * Lipid Panel 09/10/22 [facility] Primary Care Evaluation + Plan note Future Appointments Appointment Date:02/18/2023 08:00:00 AM Scheduled Provider:Mt GOODEN DO, FAAFP Location:[facility] Appointment Type: Open Appointment Date:02/20/2023 02:25:00 PM Scheduled Provider: Location:[facility] Appointment Type:Surgery FT Appointment Date:08/26/2023 [...] Lipid Panel 02/20/22 * Lipid Panel 09/10/[address] [facility] Future Appointments Appointment [...] Lipid Panel 02/20/22 * Lipid Panel 09/10/22 [facility] Primary Care Evaluation + Plan note Future Appointments Appointment Date:03/29/2023 09:45:00 AM Scheduled Provider: [facility] Type:MANAGER SPECIALTY Sleep Study Clinic Follow Up (FT) Appointment Date:04/09/2023 10:00:00 AM Scheduled Provider: [facility] App[facility] Type:ONC Office Visit 30 (FT) Appointment [...] Function Panel 09/10/22 * Lipid Panel 09/10/[address] [facility] Future Appointments Appointment [...] Function Panel 09/10/22 * Lipid Panel 09/10/[address] [facility] Future Appointments Appointment Date:04/09/2023 10:00:00 AM Scheduled Provider: [facility] Appoint[facility] Type:ONC Office Visit 30 (FT) Appointment [...] Function Panel 09/10/22 * Lipid Panel 09/10/[address] [facility] Future Appointments Appointment Date:06/03/2023 01:20:00 PM Scheduled Provider:Mt GOODEN DO, FAAFP Location:[facility] Appointment Type: Open Appointment Date:07/09/2023 10:00:00 AM Scheduled Provider: [facility] Appoint[facility] Type:ONC Office Visit 30 (FT) Appointment [...] Function Panel 09/10/22 * Lipid Panel 09/10/[address] [facility] Future Appointments Appointment Date:06/03/2023 01:20:00 PM Scheduled Provider:Mt GOODEN DO, FAAFP Location:[facility] Appointment Type:FM Open Appointment Date:07/09/2023 10:00:00 AM Scheduled Provider: [facility] Appointment Type:ONC Office Visit 30 (FT) Appointment [...] Function Panel 09/10/22 * Lipid Panel 09/10/[address] [facility] Future Appointments Appointment Date:06/11/2023 09:00:00 AM Scheduled Provider: [facility] Appointment Type:US Duplex Procedures (FT) Appointment Date:07/09/2023 10:00:00 AM Scheduled Provider: [facility] Appoint[facility] Type:ONC Office Visit 30 (FT) Appointment [...] * US LE Venous Duplex Bilateral 06/11/23 [facility] Primary Care Evaluation + Plan note Future Appointments Appointment Date:06/26/2023 09:45:00 AM Scheduled Provider:Matty Murillo MD Location[facility] Appointment Type:Pulmonary New Patient (FT) Appointment Date:07/09/2023 10:00:00 AM Scheduled Provider: [facility] Appoint[facility] Type:ONC Office Visit 30 (FT) Appointment [...] D-Dimer 07/11/23 * Hepatic Function Panel 09/10/[address] [facility] Future Appointments Appointment Date:07/09/2023 10:00:00 AM Scheduled Provider: [facility] Appointment Type:ONC Office Visit 30 (FT) Appointment Date:07/10/2023 09:30:00 AM Scheduled Provider: [facility] Appoint[facility] Type:PUL Pulmonary Function Test (FT) Appointment Date:07/10/2023 10:30:00 AM Scheduled Provider: [facility] Appointment Type:PUL Six Minute Walk Test (FT) [...] D-Dimer 07/11/23 * Hepatic Function Panel 09/10/[address] [facility] Future Appointments Appointment Date:07/10/2023 09:30:00 AM Scheduled Provider: [facility] Appointment Type:PUL Pulmonary Function Test (FT) Appointment Date:07/10/2023 10:30:00 AM Scheduled Provider: [facility] Appointment Type:PUL Six Minute Walk Test (FT) Appointment Date:07/17/2023 09:45:00 AM Scheduled Provider:Matty Murillo MD [facility] Type:Pulmonary Follow Up (FT) Appointment Date:08/26/2023 11:00:00 AM Scheduled Provider: Location:[facility] Appointment Type: Medicare Wellness Subsequent Appointment Date:09/05/2023 09:40:00 AM Scheduled Provider:Mt GOODEN DO, FAAFP Location:[facility] Appointment Type: Open Appointment Date:01/07/2024 10:00:00 AM Scheduled Provider: [facility] Appointment Type:ONC Office Visit 30 (FT) Future Scheduled Tests Laboratory* HgbA1c 11/08/22 * HgbA1c 08/23/22 * HgbA1c 11/21/22 * HgbA1c 09/10/22 * HgbA1c 11/21/22 * CBC w/ Auto Diff 01/07/24 * Comprehensive Metabolic Panel 01/07/24 * D-Dimer 01/07/24 * Hepatic Function Panel 09/10/[address] [facility] Future Appointments Appointment Date:08/26/2023 11:00:00 AM Scheduled Provider: Location:[facility] Appointment Type: Medicare Wellness Subsequent Appointment Date:09/05/2023 09:40:00 AM Scheduled Provider:Mt GOODEN DO, FAAFP Location:[facility] Appointment Type:FM Open Appointment Date:01/07/2024 10:00:00 AM Scheduled Provider: [facility] Appoint[facility] Type:ONC Office Visit 30 (FT) Future Scheduled Tests Laboratory* HgbA1c 3/30/23 * HgbA1c 08/23/22 * HgbA1c 11/21/22 * HgbA1c 09/10/22 * HgbA1c 11/21/22 * CBC w/ Auto Diff 01/07/24 * Comprehensive Metabolic Panel 01/07/24 * D-Dimer 01/07/24 * Hepatic Function Panel 09/10/[address] [facility] [place] [facility]* Diagnosis Mccarty's esophagus with dysplasia- Primary Mccarty's esophagus documented in this encounter [facility] note* Diagnosis Mccarty's esophagus with dysplasia Mccarty's esophagus documented in this encounter [facility] note* Diagnosis Chronic right-sided low back pain with right-sided sciatica- Primary documented in this encounter [facility] note* Diagnosis Bilateral low back pain with sciatica, sciatica laterality unspecified, unspecified chronicity- Primary documented in this encounter [facility] note* Diagnosis Sacrococcygeal disorders, not elsewhere classified- Primary documented in this encounter [facility] note* Diagnosis Bilateral low back pain with sciatica, sciatica laterality unspecified, unspecified chronicity [facility] Narrative No data available for this section [facility] No data available for this section [facility] No data available for this section [facility] Primary Care Reason for referral (narrative)* Outpatient Procedure (Routine) - Authorized Specialty Diagnoses / Procedures Referred By Sourav arriaga Referred To Contact [facility] [place] Diagnoses Mccarty's esophagus with dysplasia Procedures EGD DIAGNOSTIC ESOPHAGOGASTRODUODENOSC OPY TRANSORAL DIAGNOSTIC Katrina Urena MD [address] [place] [address] [facility] [address] [address] Referral ID Status Reason Start Date Expiration Date Visits Requested Visits Authorized [id number] Authorized Auto-Generat ed Referral 04/09/2022 04/09/2023 1 1 [facility] for referral (narrative)* Outpatient Procedure (Routine) - Closed Specialty Diagnoses / Procedures Referred By Sourav arriaga Referred To Contact [facility] Diagnoses Mccarty's esophagus with dysplasia Procedures EGD DIAGNOSTIC ESOPHAGOGASTRODUODENOSC OPY TRANSORAL DIAGNOSTIC Katrina Urena MD [address] [place] [address] [facility] [address] [place] [address] Referral ID Status Reason Start Date Expiration Date V isits Requested Visits Authorized [id number] Closed Auto-Generate d Referral 04/09/2022 04/09/2023 1 1 [facility] for referral (narrative) Referred by: Perla LEE, Thao Fisher [facility] Primary Care Reason for referral (narrative)* Diagnostic Procedure Only (Routine) - Closed Specialty Diagnoses / Procedures Referred By Sourav arriaga Referred To Contact XR IMAGING Diagnoses Bilateral low back pain with sciatica, sciatica laterality unspecified, unspecified chronicity Procedures XR SACROILIAC JOINTS 2V AP PELVIS/FERGUESON RADIOLOGIC EXAMINATION SACROILIAC JNTS <3 VIEWS Juma Monk MD [address] [place] [address] Xr Imaging Referral ID Status Reason Start Date Expiration Date V isits Requested Visits Authorized [id number] Closed Auto-Generate d Referral 12/05/2022 01/04/2024 1 1 [facility] for referral (narrative)* Diagnostic Procedure Only (Routine) - Closed Specialty Diagnoses / Procedures Referred By Sourav arriaga Referred To Contact XR IMAGING Diagnoses Bilateral low back pain with sciatica, sciatica laterality unspecified, unspecified chronicity Procedures XR SACROILIAC JOINTS 2V AP PELVIS/FERGUESON RADIOLOGIC EXAMINATION SACROILIAC JNTS <3 VIEWS Juma Monk MD [address] [place] [id number] Xr Imaging Referral ID Status Reason Start Date Expiration Date V isits Requested Visits Authorized [id number] Closed Auto-Generate d Referral 12/05/2022 01/04/2024 1 1 [facility] for visit Narrative* Outpatient Procedure (Routine) - Closed Specialty Diagnoses / Procedures Referred By Contac t Referred To Contact [facility] Diagnoses Mccarty's esophagus with dysplasia Procedures EGD DIAGNOSTIC ESOPHAGOGASTRODUODENOSC OPY TRANSORAL DIAGNOSTIC Katrina Urena MD [address] [place] [address] [place] [address] Referral ID Status Reason Start Date Expiration Date V isits Requested Visits Authorized [id number] Closed Auto-Generate d Referral 04/09/2022 04/09/2023 1 1 [facility] for visit Narrative* Diagnostic Procedure Only (Routine) - Closed Specialty Diagnoses / Procedures Referred By Contac t Referred To Contact XR IMAGING Diagnoses Bilateral low back pain with sciatica, sciatica laterality unspecified, unspecified chronicity Procedures XR SACROILIAC JOINTS 2V AP PELVIS/FERGUESON RADIOLOGIC EXAMINATION SACROILIAC JNTS <3 VIEWS Juma Monk MD [address] [place] [address] Xr Imaging Referral ID Status Reason Start Date Expiration Date V isits Requested Visits Authorized [id number] Closed Auto-Generate d Referral 12/05/2022 01/04/2024 1 1 [facility] Reason for Referral Specialty Diagnoses / Procedures Referred By Contac t Referred To Contact MR IMAGING Diagnoses Sacrococcygeal disorders, not elsewhere classified Procedures MRI SACRUM/COCCYX WO IVCON MRI PELVIS W/O CONTRAST MATERIAL Juma Monk MD [address] [place] [address] Mr Imaging Referral ID Status Reason Start Date Expiration Date Visits Requested Visits Authorized [id number] Pending Review Auto-Generat ed Referral 12/17/2022 01/16/2024 [...] Care Team (unrecognized sect ion and content) Orthotic Finish Grinding Technician Relationship Specialty Start Date End Date Pcp, No PCP - General 02/24/22 09/11/22 Orthotic Finish Grinding Technician Relationship Specialty Start Date End Date Pcp, No PCP - General 02/24/22 09/11/22 Orthotic Finish Grinding Technician Relationship Specialty Start Date End Date Pcp, No PCP - General 02/24/22 09/11/22 Orthotic Finish Grinding Technician Relationship Specialty Start Date End Date Mt Gooden DO [address] [place] [address] PCP - General Family Medicine 11/14/22 Thao Duncan(Historical), DO Referring Primary Care 08/07/22 Orthotic Finish Grinding Technician Relationship Specialty Start Date End Date Mt Gooden DO [address] [place] [address] PCP - General Family Medicine 11/14/22 Thao Duncan(Historical), DO Referring Primary Care 08/07/22 Orthotic Finish Grinding Technician Relationship Specialty Start Date End Date Mt Gooden DO [address] [place] [address] PCP - General Family Medicine 11/14/22 Thao Duncan(Historical), DO Referring Primary Care 08/07/22 Orthotic Finish Grinding Technician Relationship Specialty Start Date End Date Mt Gooden DO [address] [place] [address] PCP - General Family Medicine 11/14/22 Thao Duncan(Historical), DO Referring Primary Care 08/07/22 Source Comments (unrecognize d section and content) In the event this informatio n is protected by the Federal Confidentiality of Alcohol and Drug Abuse Patient Records regulations: The Federal rules restrict any use of the information to criminally investigate or prosecute any alcohol or drug abuse patient.[facility] the event this information is protected by the Federal Confidentiality of Alcohol and Drug Abuse Patient Records regulations: The Federal rules restrict any use of the information to criminally investigate or prosecute any alcohol or drug abuse patient.[facility] the event this information is protected by the Federal Confidentiality of Alcohol and Drug Abuse Patient Records regulations: The Federal rules restrict any use of the information to criminally investigate or prosecute any alcohol or drug abuse patient.[facility] the event this information is protected by the Federal Confidentiality of Alcohol and Drug Abuse Patient Records regulations: The Federal rules restrict any use of the information to criminally investigate or prosecute any alcohol or drug abuse patient.[facility] the event this information is protected by the Federal Confidentiality of Alcohol and Drug Abuse Patient Records regulations: The Federal rules restrict any use of the information to criminally investigate or prosecute any alcohol or drug abuse patient.[facility] the event this information is protected by the Federal Confidentiality of Alcohol and Drug Abuse Patient Records regulations: The Federal rules restrict any use of the information to criminally investigate or prosecute any alcohol or drug abuse patient.[facility] the event this information is protected by the Federal Confidentiality of Alcohol and Drug Abuse Patient Records regulations: The Federal rules restrict any use of the information to criminally investigate or prosecute any alcohol or drug abuse patient.[facility] the event this information is protected by the Federal Confidentiality of Alcohol and Drug Abuse Patient Records regulations: The Federal rules restrict any use of the information to criminally investigate or prosecute any alcohol or drug abuse patient.[facility] Reason for Visit (unrecogniz ed section and content) Reason Comments Appointment Confirmation Reason Comments Consult Dx oa. Reason Comments Received Outside Medical Records Reason Comments Follow Up Denies any concerns Reason Comments Results (unrecognized sect ion and content) No Status Records FoundNo Status Records FoundNo Status Records Found INFORMATION SOURCE (unrecogn ized section and content) DATE CREATED AUTHOR 01/29/2023 [facility] DATE CREATED AUTHOR AUTHOR'S ORGANIZ ATION 06/27/2023 [facility] DATE CREATED AUTHOR AUTHOR'S ORGANIZ ATION 07/19/2023 [facility] FOR RECORDS PERTAINING TO PATIENTS WHO ARE [...] BE BASED ON THE PRIMARY CLINICAL RECORDS. [employer] provides no warranty or guarantee of the accuracy or completeness of information in this document.
== END 2023-08-16 07:46 | disposition home or self-care (01) ==
LOC: VC 07:45
PROVIDERS: PCP Radiology Diagnostic Radiology; Visit Provider Radiology Diagnostic Radiology
DX: I80.02 Phlebitis and thrombophlebitis of superficial vessels of left lower extremity (principal)
CPT/HCPCS: 93971; G0463

== ENCOUNTER 2023-08-29 12:39 | Outpatient (OUT) | payer MEDICARE, OTHER, SELFPAY ==
--- NOTE | 2023-08-29 12:43 | VEIN_ITS ---
[address] [address] Patient Name: JOSE GONZALEZ MRN: [id number] date: 1950 Sex: M Assigned Patient Location: Current Patient Location: Accession/Order Number: [id number] Exam Date: 08/29/2023 12:43 Report Date: 08/29/2023 15:08 At the request of: JAMES ESPINOZA Procedure: VC Endovenous Perf Ablation RT EXAMINATION: VC Endovenous Perf Ablation RT COMPARISON: INDICATIONS: I83.813 Bilateral painful varicose veins OPERATIVE REPORT: Diagnosis: Superficial venous reflux, incompetent perforating veins Procedure: Endovenous laser ablation of the right manufacturing project manager(s) Procedure: The patient was positioned supine on the table and the leg was prepped and draped to allow for visualization during venous access. A sterile cover was draped over a 16 mhz ultrasound probe. Venous mapping was performed prior to the procedure noting location and size of vessel(s). [employer] St[employer] vein 1: Mid medial right lower leg. The diameter of the vein ranged from 5 mm's below the muscular fascia to 5 mm's at the entry point. Using a 30 gauge needle the entry site was anesthetized with 1 cc of 1% buffered lidocaine. Access was gained percutaneously, with a 21-gauge needle, into the manufacturing project manager vein under ultrasound guidance. The needle was advanced into the desired position and the pre-measured 400-micron fiber was then inserted into the needle and locked in place. The position of the fiber was imaged with ultrasound guidance. The fiber tip was visualized to be 15 mm from the deep vessel. An anesthetic solution of 4 cc 1% buffered lidocaine was delivered along the course of the vein under ultrasound guidance using a syringe. A final positioning check of the laser fiber tip was performed. The laser was activated by means of a foot-pedal and the fiber and needle were withdrawn together in accordance to the desired joules per treatment area/spot weld. 4 areas/spot welds were performed, and the total number of joules delivered was 154. The total time of energy delivery was 9 seconds. A duplex ultrasound revealed compressibility and flow of the deep system immediately after the procedure. Hemostasis of the access site was achieved and dressed. [employer] Stenographer vein 2: Right distal medial lower leg. The diameter of the vein ranged from 4 mm's below the muscular fascia to 4 mm's at the entry point. Using a 30 gauge needle the entry site was anesthetized with 1 cc of 1% buffered lidocaine. Access was gained percutaneously, with a 21-gauge needle, into the manufacturing project manager vein under ultrasound guidance. The needle was advanced into the desired position and the pre-measured 400-micron fiber was then inserted into the needle and locked in place. The position of the fiber was imaged with ultrasound guidance. The fiber tip was visualized to be 30 mm from the deep vessel. An anesthetic solution of 4 cc 1% buffered lidocaine was delivered along the course of the vein under ultrasound guidance using a syringe. A final positioning check of the laser fiber tip was performed. The laser was activated by means of a foot-pedal and the fiber and needle were withdrawn together in accordance to the desired joules per treatment area/spot weld. 4 areas/spot welds were performed, and the total number of joules delivered was 171. The total time of energy delivery was 22 seconds. A duplex ultrasound revealed compressibility and flow of the deep system immediately after the procedure. Hemostasis of the access site was achieved and dressed. [employer] Stenographer vein 2: Right distal medial lower leg. The diameter of the vein ranged from 5 mm's below the muscular fascia to 4 mm's at the entry point. Using a 30 gauge needle the entry site was anesthetized with 1 cc of 1% buffered lidocaine. Access was gained percutaneously, with a 21-gauge needle, into the manufacturing project manager vein under ultrasound guidance. The needle was advanced into the desired position and the pre-measured 400-micron fiber was then inserted into the needle and locked in place. The position of the fiber was imaged with ultrasound guidance. The fiber tip was visualized to be 20 mm from the deep vessel. An anesthetic solution of 5 cc 1% buffered lidocaine was delivered along the course of the vein under ultrasound guidance using a syringe. A final positioning check of the laser fiber tip was performed. The laser was activated by means of a foot-pedal and the fiber and needle were withdrawn together in accordance to the desired joules per treatment area/spot weld. 4 areas/spot welds were performed, and the total number of joules delivered was 163. The total time of energy delivery was 20 seconds. A duplex ultrasound revealed compressibility and flow of the deep system immediately after the procedure. Hemostasis of the access site was achieved and dressed. A 20-30 mm compression stocking over coban was placed on the treated leg. Post-Op instructions were given, and a follow-up appointment was made. CONCLUSION: 1. Technically successful endovenous laser ablation of 3 right leg incompetent manufacturing project manager veins Electronically authenticated by: JAMES ESPINOZA Date: 08/29/2023 15:08
--- OUTSIDE RECORDS SUMMARY | 2023-08-29 12:43 | XMS_ITS | CCD ---
Author Name Unknown Address [address] [place] [address] Organization [facility] Care Team Providers Care General Teller Name Role Phone Mt GOODEN Primary Care Physician Pcp, No Primary Care Provider UnavailThao Jones DO(Historical) Unavailable Unavailable Mt Gooden DO Primary Care Provider KATRINA URENA Referring Unavailable SKY HOWE Attending Unavailable KATRINA URENA Referring Unavailable KATRINA URENA Attending Unavailable MT GOODEN Primary Care Unavailable IVETTE, JUMA Referring Unavailable KAPHELENA, MT Morillo Primary Care Unavailable IVETTE, JUMA Referring Unavailable KAPHELENA, MT Morillo Primary Care Unavailable IVETTE, JUMA Referring Unavailable KAPLE, MT Morillo Primary Care Unavailable IVETTE, JUMA Attending Unavailable IVETTE, JUMA Attending Unavailable CopseyYeeia Attending Unavailable CopYee thapaia Admitting Unavailable Kaphelena, Mt Morillo Primary Care Unavailable Murillo, Basem G. Referring Unavailable Murillo, Matty GJase Attending Unavailable KAPMt MENDIOLA Admitting Unavailable Joycelyn CHERRY Attending Unavailable KAPMt MENDIOLA Referring Unavailable Murillo, Basem G. Attending Unavailable KAPMt MENDIOLA Attending Unavailable KAPMt MENDIOLA Attending Unavailable Thao Duncan Attending Unavailable Mt GOODEN Admitting Unavailable KAPMt MENDIOLA Attending Unavailable Al-Marrawi, Mhd Yaser Admitting Unavailabl e Al-Marrawi, Azra Yaser Attending Unavailabl e Mt GOODEN Admitting Unavailable KAPMt MENDIOLA Attending Unavailable KAPMt MENDIOLA Attending Unavailable KAPHELENA, Mt Morillo Admitting Unavailable Al-Marrawi, Azra Yaser Admitting Unavailabl e Al-Marrawi, Mhd Yaser Attending Unavailabl e Moussawi, Ahmad Attending Unavailable Moussawi, Ahmad Admitting Unavailable Marcell Jensen. Consulting Unavaila Marcell Del Cid. Consulting Unavaila Marcell Del Cid. Consulting Unavaila ble Idck, Mohamed F. Consulting Unavailable Dick, Mohamed F. Consulting Unavailable Dick, Mohamed F. Consulting Unavailable Hajdari, Astrit H Attending Unavailable Moussawi, Ahmad Referring Unavailable Al-Marrawi, Mhd Yaser Attending Unavailabl e Al-Marrawi, Mhd Yaser Attending Unavailabl e Al-Marrawi, Mhd Yaser Attending Unavailabl e Murillo, Basem G. Attending Unavailable NONE, XXXX Referring Unavailable KAPMt MENDIOLA Referring Unavailable KAPMt MENDIOLA Attending Unavailable KAPMt MENDIOLA Admitting Unavailable COPSEY, KALLI Admitting Unavailable COPSEYYEEIA Referring Unavailable COPYEE THAPAIA Attending Unavailable Mt GOODEN Admitting Unavailable KAPMt MENDIOLA Referring Unavailable Mt GOODEN Attending Unavailable Pawan Laureano Admitting Unavailable Pawan Laureano Referring Unavailable Pawan Lauerano Attending Unavailable Al-Marrawi, Mickd Yalink Attending Unavailabl e Al-Marrawi, Mhd Yaser Admitting Unavailabl e KAPMt MENDIOLA Attending Unavailable Thao Duncan Attending Unavailable KAPMt MENDIOLA Attending Unavailable KAPMt [...] Attending Unavailable MD Pawan Laureano Admitting Unavailable Sarahi Murillom G. Referring Unavailable Murillo Basem G. Attending Unavailable Murillo Basem G. Admitting Unavailable Pawan Laureano Referring Unavailable Pawan Laureano Attending Unavailable MD Pawan Laureano Admitting Unavailable Allergies Allergy Classification Reported Allergen(s) Allergy Type Date of Onset Reaction(s) Facility (20 sources) Azithromycin; Translations: [azithromycin] Drug Allergy 06-08-2022 [facility] (1 source) Azithromycin Drug Allergy 05-16-2023 [facility] Rep[facility] Medications Current Medications Medication Drug Class(es) Dates Sig (Normalized) Sig (Original) acetaminophen 325 mg oral tablet (20 sources) Start: 08-01-2022 take 1 tablet by mouth once Tylenol 325 mg Tab = 1 tab(s), Oral, Once, # 1 tab(s), Refills(s) 0 Start Date: 08/01/22 Status: Ordered Start: 01-06-2020 take 2 tablets by mo ut every six hours as needed for pain acetaminophen 325 mg Tab 650 mg = 2 tab(s), Oral, q6hr, PRN Pain, Refills(s) 0 Start Date: 01/06/20 Status: Ordered apixaban 5 mg oral tablet (18 sources) Factor Xa Inhibitor Start: 03-04-2023 take 1 tablet by mouth twice daily Eliquis 5 mg oral tablet 5 mg = 1 tab(s), Oral, BID, # 180 tab(s), Refills(s) 3, Pharmacy: [facility]/pharmacy #[id number], 185, cm, 04/09/23 10:08:00 EDT, Height/Length Dosing, 154.1, kg, 04/09/23 10:08:00 EDT, Weight Dosing Start Date: 04/09/23 Status: Ordered Start: 02-19-2023 Eliquis 5 mg o ral tablet 2 tabs (10 mg) BID x 7 days then 1 tab bid, Oral, BID, initial fill only, # 74 tab(s), Refills(s) 0, Pharmacy: [facility]/pharmacy #[id number], 182, cm, 02/18/23 [...] day(s), # 28 cap(s), Refills(s) 0, Pharmacy: [facility]/pharmacy #[id number], 185.4, cm, 03/13/23 2:24:00 EDT, Height/Length Dosing, 154.7, kg, 03/13/23 2:24:00 EDT, Weight Dosing Start Date: 03/13/23 Stop Date: 03/20/23 Status: Ordered Start: 12-02-2022 take 1 capsule by [facility] every eight hours cephalexin 500 mg Cap 500 mg = 1 cap(s), Oral, q8hr, # 30 cap(s), Refills(s) 0, Pharmacy: [facility]/pharmacy #[id number], 182, cm, 12/02/22 [...] day(s), # 10 tab(s), Refills(s) 0, Pharmacy: [facility]/pharmacy #[id number], 185, cm, 06/22/22 11:58:00 EST, Height/Length Dosing, 146.3, kg, 06/22/22 11:58:00 EST, Weight Dosing Start Date: 06/22/22 Stop Date: 07/02/22 Status: Ordered Start: 12-14-2021 take 1 tablet by [facility] at bedtime cyclobenzaprine 10 mg Tab 10 mg = 1 tab(s), Oral, Bedtime, # 30 tab(s), Refills(s) 1, Pharmacy: [facility]/pharmacy #[id number], 185, cm, 12/14/21 15:11:00 EDT, Height/Length Dosing, 144.7, kg, 12/14/21 15:11:00 EDT, Weight Dosing Start Date: 12/14/21 Status: Ordered doxycycline hyclate 100 mg oral capsule (1 source) Tetracycline-class Drug Start: 08-22-2021 take 1 capsule by mouth twice daily doxycycline hyclate 100 mg Cap 100 mg = 1 cap(s), Oral, BID, # 20 cap(s), Refills(s) 0, Pharmacy: [facility]/pharmacy #[id number], 185, cm, 08/22/21 [...] bedtime), # 90 tab(s), Refills(s) 3, Pharmacy: [facility]/pharmacy #[id number], 182, cm, 06/03/23 13:45:00 EDT, Height/Length Dosing, 146.6, kg, 06/03/23 13:45:00 EDT, Weight Dosing Start Date: 06/03/23 Status: Ordered Start: 01-22-2022 take 1 tablet by nicolas once daily at bedtime famotidine 40 mg Tab 40 mg = 1 tab(s), Oral, Once a day (at bedtime), # 90 tab(s), Refills(s) 3, Pharmacy: [facility]/pharmacy #[id number], 182, cm, 12/10/22 10:07:00 EDT, Height/Length Dosing, 154.8, kg, 12/10/22 10:07:00 EDT, Weight Dosing Start Date: 12/31/22 Status: Ordered Start: 12-08-2020 take 1 tablet by nicolas once daily at bedtime famotidine 40 mg Tab 40 mg = 1 tab(s), Oral, Once a day (at bedtime), # 90 tab(s), Refills(s) 3, Pharmacy: [facility]/pharmacy #[id number], 185, cm, 10/21/20 9:58:00 EST, Height/Length Dosing, 148.8, kg, 10/21/20 9:57:00 EST, Weight Dosing Start Date: 12/08/20 Status: Ordered Comment on above: Take 40 mg by mouth daily at bedtime. fluticasone propionate 0.05 mg/actuat metered dose nasal spray (20 sources) Corticosteroid Start: 3 Flonase 0.05 mg/inh Harmon 2 spray(s), Nasal, Daily, 16 gram, Refill(s) 11, each nostril, [facility]/pharmacy #[id number], 182, cm, 11/08/22 10:10:00 EDT, Height/Length Dosing, 151.1, kg, 11/08/22 10:10:00 EDT, Weight Dosing Start Date: 11/08/22 Status: Ordered Comment on above: Use in the nose. furosemide 40 mg oral tablet (17 sources) Loop Diuretic Start: 3 take 1 tablet by mouth once daily as needed for edema Lasix 40 mg Tab 40 mg = 1 tab(s), Oral, Daily, PRN Edema, # 90 tab(s), Refills(s) 3, Pharmacy: [facility]/pharmacy #[id number], 182, cm, 06/03/23 13:45:00 EDT, Height/Length Dosing, 146.6, kg, 06/03/23 13:45:00 EDT, Weight Dosing Start Date: 06/03/23 Status: Ordered Start: 12-18-2022 take 1 tablet by nicolas th once daily as needed for edema Lasix 40 mg Tab 40 mg = 1 tab(s), Oral, Daily, PRN Edema, # 30 tab(s), Refills(s) 5, Pharmacy: [facility]/pharmacy #[id number], 182, cm, 12/10/22 10:07:00 EDT, Height/Length Dosing, 154.8, kg, 12/10/22 10:07:00 EDT, Weight Dosing Start Date: 12/18/22 Status: Ordered gabapentin 100 mg oral capsule (2 sources) Anti-epileptic Agent Start: 11-30-2020 take 1 capsule by mouth once daily gabapentin 100 mg Cap 100 mg = 1 cap(s), Oral, Daily, # 30 cap(s), Refills(s) 3, Pharmacy: [facility]/pharmacy #[id number], 185, cm, 10/21/20 9:58:00 EST, Height/Length Dosing, 148.8, kg, 10/21/20 9:57:00 EST, Weight Dosing Start Date: 11/30/20 Status: Ordered hydrocortisone 25 mg/ml rectal cream (17 sources) Corticosteroid Start: 01-23-2023 hydrocortisone 2.5% Rectal Crm w/Appl 1 lorenzo, Rectal, BID, 30 gram, Refill(s) 0 Start Date: 01/23/23 Status: Ordered lisinopril 10 mg oral tablet (20 sources) Angiotensin Converting Enzyme Inhibitor Start: 05-05-2023 take 1 tablet by mouth once daily lisinopril 10 mg Tab 10 mg = 1 tab(s), Oral, Daily, # 90 tab(s), Refills(s) 3, Pharmacy: [facility]/pharmacy #[id number], 185, cm, 04/09/23 10:08:00 EDT, Height/Length Dosing, 154.1, kg, 04/09/23 10:08:00 EDT, Weight Dosing Start Date: 05/05/23 Status: Ordered Start: 10-14-2020 take 1 tablet by nicolas th once daily lisinopril 10 mg Tab 10 mg = 1 tab(s), Oral, Daily, # 90 tab(s), Refills(s) 1, Pharmacy: [facility]/pharmacy #[id number], 185, cm, 03/15/22 [...] BID, # 180 tab(s), Refills(s) 3, Pharmacy: [facility]/pharmacy #[id number], 182, cm, 12/10/22 10:07:00 EDT, Height/Length Dosing, 154.8, kg, 12/10/22 10:07:00 EDT, Weight Dosing Start Date: 12/31/22 Status: Ordered Start: 12-10-2022 take 1 tablet by nicolas twice daily metformin 1000 mg Tab 1,000 mg = 1 tab(s), Oral, BID, # 180 tab(s), Refills(s) 3, [id number], cm, 12/10/22 10:07:00 EDT, Height/Length Dosing, 154.8, kg, 12/10/22 10:07:00 EDT, Weight Dosing Start Date: 12/10/22 Status: Ordered Start: 10-06-2021 take 1 tablet by nicolas once daily metFORMIN (GLUCOPHAGE) 1,000 mg tablet Take 1,000 mg by mouth once daily. 0 10/01/2022 Active Comment on above: Take 1,000 mg by nicolas once daily. methocarbamol 500 mg oral tablet (14 sources) Muscle Relaxant Start: 2022 End: 2022 take 2 tablets by mouth four times daily as needed for muscle spasms Robaxin 500 mg Tab 1,000 mg = 2 tab(s), Oral, QID, PRN spasm, # 120 tab(s), Refills(s) 0, [id number] 182, cm, 03/01/23 13:14:00 EDT, Height/Length Dosing, 153.1, kg, 03/01/23 13:14:00 EDT, Weight Dosing Start Date: 03/04/23 Status: Ordered methylPREDNISolone 4 mg oral tablet (1 source) Corticosteroid Start: 2021 End: 2021 Medrol 4 mg Tab = 1 packet(s), Oral, As Directed, as directed on package labeling, X 6 day(s), # 21 tab(s), Refills(s) 2, [id number] 185, cm, 12/14/21 15:11:00 EDT, Height/Length [...] Daily, # 90 cap(s), Refills(s) 3, Pharmacy: [facility]/pharmacy #[id number], 182, cm, 11/08/22 [...] Daily, # 90 cap(s), Refills(s) 3, Pharmacy: [facility]/pharmacy #[id number], 182.9, cm, 09/18/21 [...] Daily, # 90 tab(s), Refills(s) 3, Pharmacy: [facility]/pharmacy #[id number], 185, cm, 06/26/23 9:53:00 EST, Height/Length Dosing, 147, kg, 06/26/23 9:53:00 EST, Weight Dosing Start Date: 07/02/23 Status: Ordered Start: 06-03-2023 take 1 tablet by [facility] once daily pioglitazone 30 mg Tab 30 mg = 1 tab(s), Oral, Daily, # 90 tab(s), Refills(s) 3, Pharmacy: [facility]/pharmacy #[id number], 182, cm, 06/03/23 13:45:00 EDT, Height/Length Dosing, 146.6, kg, 06/03/23 13:45:00 EDT, Weight Dosing Start Date: 06/03/23 Status: Ordered Start: 11-08-2022 take 1 tablet by [facility] once daily Actos 45 mg Tab 45 mg = 1 tab(s), Oral, Daily, # 90 tab(s), Refills(s) 3, Pharmacy: [facility]/pharmacy #[id number], 182, cm, 11/08/22 10:10:00 EDT, Height/Length Dosing, 151.1, kg, 11/08/22 10:10:00 EDT, Weight Dosing Start Date: 11/08/22 Status: Ordered Start: 05-10-2022 take 1 tablet by [facility] once daily Actos 15 mg Tab 15 mg = 1 tab(s), Oral, Daily, # 90 tab(s), Refills(s) 3, Pharmacy: [facility]/pharmacy #[id number], 185, cm, 03/15/22 8:30:00 EDT, Height/Length Dosing, 146, kg, 03/15/22 8:30:00 EDT, Weight Dosing Start Date: 05/10/22 Status: Ordered Start: 07-22-2020 take 1 tablet by [facility] once daily Actos 15 mg Tab 15 mg = 1 tab(s), Oral, Daily, # 90 tab(s), Refills(s) 3, Pharmacy: [facility]/pharmacy #[id number], 185, cm, 07/22/20 10:49:00 EST, Height/Length Dosing, 148.4, kg, 07/22/20 10:49:00 EST, Weight Dosing Start Date: 07/22/20 Status: Ordered polyethylene glycol 3350 537654 mg / potassium chloride 1480 mg / sodium bicarbonate 5720 mg / sodium chloride 79342 mg powder for oral solution (16 sources) Osmotic Laxative Start: 01-23-2023 NuLYTELY Mendez oral powder for reconstitution See Instructions, 1 EA, Refill(s) 0, See physician instructions prior to procedure., [facility]/pharmacy #[id number], 185, cm, 01/23/23 9:12:00 EDT, Height/Length Dosing, 152.1, kg, 01/23/23 9:12:00 EDT, Weight Dosing Start Date: 01/23/23 Status: Ordered predniSONE 20 mg oral tablet (1 source) Start: 06-22-2022 End: 06-29-2022 take 2 tablets by mouth once daily predniSONE 20 mg Tab 40 mg = 2 tab(s), Oral, Daily, X 7 day(s), # 14 tab(s), Refills(s) 0, Pharmacy: [facility]/pharmacy #[id number], 185, cm, 06/22/22 [...] Daily, # 90 tab(s), Refills(s) 1, Pharmacy: [facility]/pharmacy #[id number], 185, cm, 06/22/22 11:58:00 EST, Height/Length Dosing, 146.3, kg, 06/22/22 11:58:00 EST, Weight Dosing Start Date: 07/02/22 Status: Ordered Start: 05-03-2021 take 1 tablet by nicolas th once daily Januvia 100 mg Tab 100 mg = 1 tab(s), Oral, Daily, # 90 tab(s), Refills(s) 1, Pharmacy: [facility]/pharmacy #[id number], 185, cm, 12/14/21 [...] chloride 20 meq extended release oral tablet (17 sources) Start: 06-03-2023 take 1 tablet by mouth once daily as needed for edema potassium chloride 20 mEq ER Tab 20 mEq = 1 tab(s), Oral, Daily, PRN Edema, Take on the days he takes Lasix, # 90 tab(s), Refills(s) 3, Pharmacy: [facility]/pharmacy #[id number], 182, cm, 06/03/23 13:45:00 EDT, Height/Length Dosing, 146.6, kg, 06/03/23 13:45:00 EDT, Weight Dosing Start Date: 06/03/23 Status: Ordered Start: 12-18-2022 take 1 tablet by nicolas th once daily as needed for edema potassium chloride 20 mEq ER Tab 20 mEq = 1 tab(s), Oral, Daily, PRN Edema, Take on the days he takes Lasix, # 30 tab(s), Refills(s) 5, Pharmacy: [facility]/pharmacy #[id number], 182, cm, 12/10/22 10:07:00 EDT, Height/Length Dosing, 154.8, kg, 12/10/22 10:07:00 EDT, Weight Dosing Start Date: 12/18/22 Status: Ordered tiZANidine 2 mg oral tablet (20 sources) Central alpha-2 Adrenergic Agonist Start: 01-13-2021 tiZANidine (ZANAFLEX ) 2 mg tablet Take by mouth. 0 01/13/2021 Active Comment on above: Take by mouth. Problems Problem Classification Problem Date Documented Da [...] current use of oral hypoglycemic medication; Translations: [prison (current) use of oral hypoglycemic drugs] Onset: [...] Chronic Other diseases of veins and lymphatics (14 sources) Disorder of vein of lower extremity [...] hearing-aid] Onset: 3 Episodic Other gastrointestinal disorders (16 sources) Constipation 02-18-2023 Episodic Other gastrointestinal disorders [...] Onset: 3 Episodic Other lower respiratory disease (17 sources) Orthopnea; Translations: [Orthopnea] Onset: 3 Episodic [...] conditions (not mental disorders or infectious disease) (4 sources) Encounter for screening for malignant neoplasm of prostate; Translations: [Screening for malignant neoplasm done] Onset: 2 Episodic Other upper respiratory disease (20 sources) Allergic rhinitis; Translations: [Allergic rhinitis, unspecified] Onset: 3 Chronic Peripheral and visceral atherosclerosis (10 sources) Peripheral vascular disease; Translations: [Peripheral vascular disease, unspecified] Onset: 3 02-18-2023 Chronic Pulmonary heart disease (20 sources) H/O: pulmonary embolus; Translations: [Pulmonary embolism] Onset: 2 02-19-2021 Episodic Residual codes; unclassified (3 sources) Obstructive sleep apnea syndrome; Translations: [Obstructive sleep apnea (adult) (pediatric)] Onset: 3 Chronic Residual codes; unclassified (3 sources) Localized edema; Translations: [Localized edema] Onset: 3 Episodic Residual codes; unclassified (18 sources) Bilateral lower limb edema 12-10-2022 Episodic Respiratory failure; insufficiency; arrest (adult) (15 sources) Chronic hypoxemic respiratory failure; Translations: [Chronic [...] limited to breakdown of skin] Onset: 3 Results Test Name Value Interpretation Reference Range Teri kemp Physician Orderon 07-18-2023 Physician Order [id number]#1.00T [facility] Consent for Treatmenton Consent for Treatment [id number]#1.00T [facility] Heart and Vascular Office/Cl inic Noteon 07-17-2023 Heart and Vascular Office/Clinic Note Normal [facility] Comment on above: Result Comment: Elec tronically Signed By: Chidi ESPINAL, Matty Mills\.br\Date and Time Signed: 07/17/23 10:18 EST Pulmonary Function Studieson 07-15-2023 Pulmonary Function Studies Normal [facility] Comment on above: Result Comment: Elec tronically Signed By: Matty Murillo MD\.br\Date and Time Signed: 07/15/23 09:48 EST Consent for Treatmenton 06-13 Consent for Treatment [id number] IFF Normal [facility] Pulmonary Function Testson 09-09-2022 Pulmonary Function Tests [id number]#1.00T IFF Normal [facility] Respiratory Therapy Noteson 07-10-2023 Respiratory Therapy Notes [id number]#1.00T IFF Normal [facility] Consent for Treatmenton 06-13 Consent for Treatment [id number]#1.00T IFF Normal [facility] Oncology Noteon 07-09-2023 Oncology Note Normal [facility] Comment on above: Result Comment: Elec tronically Signed By: Isabelle Soto RN\.br\Date and Time Signed: 07/09/23 10:41 EST Oncology Progress Noteon Oncology Progress Note Normal [facility] Auto Diffon 07-08-2023 Basophils/100 WBC (Bld) 0.7 % Normal 0.0-2.0 [facility] Comment on above: Order Comment: Order Added by Discern Expert. Performed By: #### 2 [id number], [id number], [id number], [id number] ####[facility] [address] [place] [address] Basophils/Leukocyte s Auto (Bld) [Pure # fraction] 0.1 E9/L Normal 0.0-0.2 [facility] Comment on above: Order Comment: Order Added by Discern Expert. Performed By: #### 2 013830, [id number], [id number], [id number] ####[address] [address] Eosinophils/100 WBC (Bld) 1.8 % Normal 0.0-8.0 [facility] Comment on above: Order Comment: Order Added by Discern Expert. Performed By: #### 2 572010, 8234061, [id number], [id number] ####[address] [address] Eosinophils/Leukocy [place] Auto (Bld) [Pure # fraction] 0.1 E9/L Normal 0.0-0.5 [facility] Comment on above: Order Comment: Order Added by Discern Expert. Performed By: #### 2 219350, 8705126, [id number], [id number] ####[address] [address] Lymphocytes/100 WBC (Bld) 31.1 % Normal 14.0-50.0 [facility] Comment on above: Order Comment: Order Added by Discern Expert. Performed By: #### 2 929905, 9359379, [id number], [id number] ####[address] [address] Lymphocytes/Leukocy [place] Auto (Bld) [Pure # fraction] 2.5 E9/L Normal 1.0-4.0 [facility] Comment on above: Order Comment: Order Added by Discern Expert. Performed By: #### 2 358116, 7956311, [id number], 5118649 ####[address] [address] Monocytes/100 WBC (Bld) 8.6 % Normal 4.0-14.0 [facility] Comment on above: Order Comment: Order Added by Rudi Expert. Performed By: #### 2 708996, [id number], [id number], [id number] ####[address] [place] [address] Monocytes/Leukocyte s Auto (Bld) [Pure # fraction] 0.7 E9/L Normal 0.2-1.0 [facility] Comment on above: Order Comment: Order Added by Discern Expert. Performed By: #### 2 126639, 4301187, [id number], [id number] ####[address] [address] Neutrophils/100 WBC (Bld) 57.8 % Normal 36.0-75.0 [facility] Comment on above: Order Comment: Order Added by Discern Expert. Performed By: #### 2 959080, 6768188, 65574730, 6121599 ####[address] [address] Neutrophils/Leukocy [place] Auto (Bld) [Pure # fraction] 4.6 E9/L Normal 2.0-7.5 [facility] Comment on above: Order Comment: Order Added by Discern Expert. Performed By: #### 2 729832, 8460048, [id number], 5171455 ####[address] [address] CBC w/ Auto Diffon Erythrocyte distribution width (RBC) [Ratio] 15.1 % High 10.9-14.2 [facility] Comment on above: Performed By: #### 2 154866, 4214186, [id number], [id number] ####[address] [address] Hematocrit (Bld) [Volume fraction] 40.3 % Normal 37.7-49.0 [facility] Comment on above: Performed By: #### 2 263746, 9488450, 28518618, 5996308 ####[address] [address] Hemoglobin (Bld) [Mass/Vol] 13.2 g/dL Low 13.5-17.5 [facility] Comment on above: Performed By: #### 2 891586, 9414021, [id number], 9129782 ####[facility] [address] [place] [address] MCH (RBC) [Entitic mass] 31.1 pg Normal 27.0-34.0 [facility] Comment on above: Performed By: #### 2 666979, 9841840, 92440036, 6629759 ####[address] [address] MCHC (RBC) [Mass/Vol] 32.8 g/dL Normal 31.4-36.0 [facility] Comment on above: Performed By: #### 2 544049, 8464575, 87832524, [id number] ####[place] [id number] MCV (RBC) [Entitic vol] 94.6 fL Normal 80.0-100.0 [facility] Comment on above: Performed By: #### 2 009749, 1711393, 45897283, 9666251 ####[address] [address] Platelet mean volume (Bld) [Entitic vol] 7.9 fL Normal 6.4-10.8 [facility] Comment on above: Performed By: #### 2 095133, 6730459, 38593459, 6325419 ####[address] [address] Platelets (Bld) [#/Vol] 195.0 E9/L Normal 150.0-500.0 [facility] Comment on above: Performed By: #### 2 024711, 6554302, 38298486, 1536229 ####[place] [id number] RBC (Bld) [#/Vol] 4.3 E12/L Normal 4.3-5.9 [facility] Comment on above: Performed By: #### 2 853205, 8909113, 63685760, [id number] ####[place] [address] WBC corrected for nucl RBC Auto (Bld) [#/Vol] 7.9 E9/L Normal 4.0-11.0 [facility] Comment on above: Performed By: #### 2 283981, 8747136, [id number], [id number] ####[facility] [address] [place] [address] CMPon 07-08-2023 Albumin [Mass/Vol] 3.8 g/dL Normal 3.3-5.0 [facility] Comment on above: Performed By: #### 2 280520, 2662249, 26098691, 7989250 ####[place] [address] [place] [address] Albumin/Globulin (S) [Mass conc ratio] 0.9 Low 1.1-2.2 [facility] Comment on above: Performed By: #### 2 437424, 9226946, [id number], [id number] ####[facility] [address] [place] [address] ALP [Catalytic activity/Vol] 52 Int._Unit/L Normal 21-98 [facility] Comment on above: Performed By: #### 2 329722, 1959394, 38437570, 7423016 ####[facility] [address] [place] [address] ALT No additional P-5'-P [Catalytic activity/Vol] 36 Int._Unit/L Normal 6-46 [facility] [facility] Comment on above: Performed By: #### 2 010308, 7955183, 02582390, 6253082 ####[facility] [address] [place] [address] Anion gap [Moles/Vol] 14 mmol/L Normal 6-16 [facility] Comment on above: Performed By: #### 2 918474, 8302781, 86249716, 4153171 ####[facility] [address] [place] [address] AST [Catalytic activity/Vol] 49 Int._Unit/L High 5-43 [facility] Comment on above: Performed By: #### 2 159339, 9703115, 89436843, 6952323 ####[facility] [address] [place] [address] Bilirubin [Mass/Vol] 0.5 mg/dL Normal 0.0-1.1 [facility] Comment on above: Performed By: #### 2 970360, 9425210, 80483195, 4356256 ####[facility] [address] [place] [address] Calcium [Mass/Vol] 9.4 mg/dL Normal 8.9-11.1 [facility] Comment on above: Performed By: #### 2 901357, 7799146, 23042155, 8016596 ####[facility] [address] [address] Chloride [Moles/Vol] 100 mmol/L Low 101-111 [facility] Comment on above: Performed By: #### 2 302574, 1601122, 26741155, 2826083 ####[facility] [address] [place] [address] CO2 [Moles/Vol] 28 mmol/L Normal 21-31 [facility] Comment on above: Performed By: #### 2 456851, 8368069, 00555448, 1394524 ####[facility] [address] [facility] [place] [address] Creatinine [Mass/Vol] 1.2 mg/dL Normal 0.5-1.3 [facility] Comment on above: Performed By: #### 2 687101, 8633336, 62313562, 3978529 ####[facility] [address] [place] [address] Globulin (S) [Mass/Vol] 4.1 g/dL High 1.4-4.0 [facility] Comment on above: Performed By: #### 2 086727, 7455540, 60563782, 1467985 ####[facility] [address] [place] [address] Glucose [Mass/Vol] 101 mg/dL Normal 55-199 [facility] Comment on above: Result Comment: If t his glucose result represents a fasting glucose, interpretation should refer to the following reference range: 55-99 mg/dL Performed By: #### 2 525445, 6092177, 38605464, 0346971 ####[facility] [address] [place] [address] Potassium [Moles/Vol] 4.7 mmol/L Normal 3.5-5.3 [facility] Comment on above: Performed By: #### 2 318083, 8087591, 39416163, 8424954 ####[facility] [address] [place] [address] Protein [Mass/Vol] 7.9 g/dL High 6.0-7.8 [facility] Comment on above: Performed By: #### 2 247656, 7146096, 45498734, 7585600 ####[facility] [address] [place] [address] Sodium [Moles/Vol] 137 mmol/L Normal 135-145 [facility] Comment on above: Performed By: #### 2 528316, 0406217, 25999175, 8417702 ####[facility] [address] [place] [address] Urea nitrogen [Mass/Vol] 20 mg/dL Normal 5-21 [facility] Comment on above: Performed By: #### 2 495452, 3555811, 76916769, 0761512 ####[facility] [address] [place] [address] Urea nitrogen/Creatinine [Mass ratio] 17 No Units Normal 10-20 [facility] Comment on above: Performed By: #### 2 801496, 7729086, 50652790, 2149739 ####[facility] [address] [place] [address] Consent for Treatmenton 06-13 Consent for Treatment [id number]#1.00T IFF Normal [facility] D-Dimeron 07-08-2023 Fibrin D-dimer FEU (PPP) [Mass/Vol] 323 CD:[id number] Normal 215-500 [facility] Comment on above: Result Comment: This assay [...] skin infectionsLiver cirrhosisPregnancy Performed By: #### 2 916644 ####[facility] [address] [place] [address] eGFRon 07-08-2023 GFR/1.73 sq M.predicted among non-blacks MDRD (S/P/Bld) [Vol rate/Area] 63 mL/min/1.73 m2 Normal >=59 [facility] Comment on above: Order Comment: Order added by Discern Expert. Result Comment: Certified Driver Examiner cristo kidney disease could be indicated at eGFR's of less than 60 mL/min/1.73m2. Kidney failure is indicated at less than 15 mL/min/1.73m2. Performed By: #### 2 417856, 4316740, 01155793, 3096164 ####[facility] [address] [place] [address] Immunization Recordson 07-02 Immunization Records [id number]#1.00T IFF Normal [facility] Consent for Treatmenton 06-12 Consent for Treatment [id number]#1.00T IFF Normal [facility] Heart and Vascular Office/Cl inic Noteon 06-26-2023 Heart and Vascular Office/Clinic Note Normal [facility] Comment on above: Result Comment: Elec tronically Signed By: Chidi ESPINAL, Matty Mello.br\Date and Time Signed: 06/26/23 10:23 EST Physician Orderon 06-26-2023 Physician Order [id number]#1.00 TIFF Normal [facility] Consultation Noteon 06-22-20 Consultation Note [id number]#1.00T IFF Normal [facility] Consultation Note [id number]#1.00T IFF Normal [facility] US LE Venous Duplex Insuffic iency Bilaton 06-12-2023 US LE Venous Duplex Insufficiency Bilat Normal [facility] Consent for Treatmenton 05-14 Consent for Treatment [id number]#1.00T IFF Normal [facility] RAD - MISCon 06-11-2023 RAD - MISC [id number] [id number]#1.00 TIFF Normal [facility] Consultation Noteon 06-09-20 Consultation Note [id number] [id number]#1.00TI FF Normal [facility] Consultation Note [id number] 004 [id number]#1.00T IFF Normal [facility] Physician Referralon 023 Physician Referral [id number]#1.00 TIFF Normal [facility] CHEMISTRYOrdered By: SYSTEM SYSTEM on 06-03-2023 Albumin [...] (Bld) [Mass fraction] 7.2 % High <=5.9% [facility] ChemAutoSS Consent for Treatmenton 05-13 Consent for Treatment [id number]#1.00T IFF Normal [facility] Medicine Office/Clini c Noteon 06-03-2023 [facility] Medicine Office/Clinic Note Normal [facility] Comment on above: Result Comment: Elec tronically Signed By: Mt GOODEN DO, FAAFP\Date and Time Signed: 06/03/23 14:43 EDT Hep Func Panelon 06-03-2023 Albumin [Mass/Vol] 3.7 g/dL Normal 3.3-5.0 [facility] Comment on above: Performed By: #### 2 273102, 3202244 ####[address] [place] [address] Albumin/Globulin (S) [Mass conc ratio] 0.9 Low 1.1-2.2 [facility] Comment on above: Performed By: #### 2 519175, 5475196 ####[address] [address] ALP [Catalytic activity/Vol] 53 Int._Unit/L Normal 21-98 [facility] Comment on above: Performed By: #### 2 082631, 8181046 ####[address] [address] ALT No additional P-5'-P [Catalytic activity/Vol] 25 Int._Unit/L Normal 6-46 [facility] Comment on above: Performed By: #### 2 639918, 5010331 ####[address] [address] AST [Catalytic activity/Vol] 34 Int._Unit/L Normal 5-43 [facility] Comment on above: Performed By: #### 2 957271, 1721627 ####[facility] [address] [place] [address] Bilirubin [Mass/Vol] 0.4 mg/dL Normal 0.0-1.1 [facility] Comment on above: Performed By: #### 2 736484, 0692096 ####[address] [place] [address] Bilirubin.direct [Mass/Vol] 0.1 mg/dL Normal 0.1-0.4 [facility] Comment on above: Performed By: #### 2 113991, 2686468 ####[facility] [address] [place] [address] Bilirubin.indirect [Mass or moles/Vol] 0.3 mg/dL Normal 0.1-0.9 [facility] Comment on above: Performed By: #### 2 394410, 4806857 ####[facility] [address] [place] [address] Globulin (S) [Mass/Vol] 4.1 g/dL High 1.4-4.0 [facility] Comment on above: Performed By: #### 2 231648, 0061683 ####[facility] [address] [place] [address] Protein [Mass/Vol] 7.8 g/dL Normal 6.0-7.8 [facility] Comment on above: Performed By: #### 2 241520, 8740296 ####[address] [address] HksP6ney 06-03-2023 HbA1c (Bld) [Mass fraction] 7.2 % High <=5.9 [facility] Comment on above: Performed By: #### 7 45642511 ####[facility] [address] [place] [address], [place] [address] Lipid Panelon 06-03-2023 Cholesterol [Mass/Vol] 196 mg/dL Normal 120-200 [facility] Comment on above: Performed By: #### 2 769150, 1783562 ####[facility] [address] [place] [address] Cholesterol in HDL [Mass/Vol] 42 mg/dL Invalid Interpretation Code [facility] Comment on above: Result Comment: HDL > or equal to 60 mg/dL: Low cardiovascular riskHDL < 40 mg/dL : High cardiovascular risk Performed By: #### 2 127334, 1037630 ####[facility] [address] [place] [address] Cholesterol in LDL [Mass/Vol] 129 mg/dL Normal <=129 [facility] Comment on above: Performed By: #### 2 837540, 3782552 ####[facility] [address] [place] [address] Cholesterol in VLDL [Mass/Vol] 30 mg/dL Normal 7-40 [facility] Comment on above: Performed By: #### 2 604175, 1098381 ####[facility] [address] [place] [address] Triglyceride [Mass/Vol] 151 mg/dL High <=149 [facility] Comment on above: Performed By: #### 2 532234, 1096777 ####[facility] [address] [place] [address] Patient Educationon 06-03-20 Patient Education Normal [facility] Physician Orderon 05-30-2023 Physician Order [id number]#1.00T IFF Normal [facility] Consultation Noteon 05-28-20 Consultation Note [id number] 003 [id number]#1.00T IFF Normal [facility] Consultation Noteon 05-27-20 Consultation Note [id number] 002 [id number]#1.00T IFF Normal [facility] Immunization Recordson 05-22 Immunization Records [id number]#1.00 TIFF Normal [facility] Consultation Noteon 05-16-20 Consultation Note [id number] 005 [id number]#1.00T IFF Normal [facility] Consent for Procedure/Surger yon 04-23-2023 Consent for Procedure/Surgery [id number]#1.00 CD:127 Normal [facility] Consent for Treatmenton 04-12 Consent for Treatment [id number]#1.00C D:127 Normal [facility] Consent to Photographon 04-12 Consent to Photograph [id number]#1.00 CD:127 Normal [facility] Correspondence - Woundon Correspondence - Wound [id number]#1.00 CD:127 Normal [facility] Correspondence - Wound [id number]#1.00 CD:127 Normal [facility] Multi-Wound Charton 04-23-20 Multi-Wound Chart [id number]#1.00 CD:127 Normal [facility] Nursing Assessment - Woundon 04-23-2023 Nursing Assessment - Wound [id number]#2.00 CD:127 [facility] Nursing Assessment - Wound [id number]#1.00 CD:127 Normal [facility] Nursing Note - Woundon 04-23 Nursing Note - Wound [id number]#1.00 CD:127 Normal [facility] Physician Orderon 04-23-2023 Physician Order [id number]#1.00 CD:127 [facility] Procedure - Woundon 04-23-20 Procedure - Wound [id number] [id number]#1.00 CD:127 Normal [facility] Progress Note - Woundon 04-12 Progress Note - Wound [id number]#1.00 CD:127 [facility] Lab Miscellaneous-LCon 04-12 Lab Miscellaneous COMMENT Invalid Interpretation Code [facility] Comment on above: Result Comment: Test Ordered: 809774 Antithrombin ActivityAntithrombin Activity 109 % BNReference Range: 75-135Direct Xa inhibitor anticoagulants such as rivaroxaban, apixaban andedoxaban will lead to spuriously elevated antithrombin activitylevels possibly masking a deficiency.Performed at: [facility] [address] [place], [place] [id number] PhD Quinn Pinedo Performed By: #### 1 [id number] ####[facility] [address] [place] [address] COAGULATIONOrdered By: Claudia Caballero on 04-10-2023 Fibrin D-dimer FEU (PPP) [Mass/Vol] 552 ng/mL FEU Invalid Interpretation Code 215 - 500 ng/mL FEU [facility] Auto Coag Comment on above: Result Comment: Resu lts Called To Shabana Zendejas By JUDIE_ And Read Back For Confirmation On 04/10/2023 08:58:49 EDT_. Consent for Treatmenton 03-14 Consent for Treatment [id number]#1.00C D:127 Normal [facility] D-Dimeron 04-10-2023 Fibrin D-dimer FEU (PPP) [Mass/Vol] 552 CD:[id number] Abnormal 215-500 [facility] Comment on above: Result Comment: Resu lts [...] skin infectionsLiver cirrhosisPregnancy Performed By: #### 2 774996 ####[facility] [address] [place] [address] Lab Miscellaneous-LCon 04-10 Test Code 881908 Invalid Interpretation Code [facility] Comment on above: Performed By: #### 1 [id number] ####[facility] [address] [place] [address] Test Name AT activ Invalid Interpretation Code [facility] Comment on above: Performed By: #### 1 [id number] ####[facility] [address] [place] [address] Reference Laboratory Testing Ordered By: Sylwia Lubin on 04-10-2023 Test Code 566361 Invalid Interpretation Code [facility] SendOutsSS Test Name AT activ Invalid Interpretation Code [facility] SendOutsSS Consent for Treatmenton 03-13 Consent for Treatment [id number]#1.00C D:127 Normal [facility] Oncology Noteon 04-09-2023 Oncology Note Normal [facility] Comment on above: Result Comment: Elec tronically Signed By: Charles MARTINEZ, Isabelle\.br\Date and Time Signed: 04/09/23 11:08 EDT Oncology Progress Noteon Oncology Progress Note Normal [facility] Auto Diffon 04-05-2023 Basophils/100 WBC (Bld) 0.7 % Normal 0.0-2.0 [facility] Comment on above: Order Comment: Order Added by Discern Expert. Performed By: #### 2 670805, 1870353, 4625526, 67516986 ####[facility] [address] [place] [address] Basophils/Leukocyte s Auto (Bld) [Pure # fraction] 0.0 E9/L Normal 0.0-0.2 [facility] Comment on above: Order Comment: Order Added by Discern Expert. Performed By: #### 2 002181, 0419093, 4244159, 57915335 ####[facility] [address] [place] [address] Eosinophils/100 WBC (Bld) 3.3 % Normal 0.0-8.0 [facility] Comment on above: Order Comment: Order Added by Discern Expert. Performed By: #### 2 996187, 6927526, 5942915, 70153922 ####[address] [place] [address] Eosinophils/Leukocy camden Auto (Bld) [Pure # fraction] 0.2 E9/L Normal 0.0-0.5 [facility] Comment on above: Order Comment: Order Added by Discern Expert. Performed By: #### 2 827174, 4759280, 4817220, 76854361 ####[address] [address] Lymphocytes/100 WBC (Bld) 27.4 % Normal 14.0-50.0 [facility] Comment on above: Order Comment: Order Added by Rudi Expert. Performed By: #### 2 873742, 2014884, 2786005, 21366143 ####[address] [address] Lymphocytes/Leukocy camden Auto (Bld) [Pure # fraction] 1.6 E9/L Normal 1.0-4.0 [facility] Comment on above: Order Comment: Order Added by Rudi Expert. Performed By: #### 2 149355, 3608829, 6940298, 50470137 ####[address] [address] Monocytes/100 WBC (Bld) 8.2 % Normal 4.0-14.0 [facility] Comment on above: Order Comment: Order Added by Discern Expert. Performed By: #### 2 740708, 5720303, 3758031, 37994765 ####[address] [address] Monocytes/Leukocyte s Auto (Bld) [Pure # fraction] 0.5 E9/L Normal 0.2-1.0 [facility] Comment on above: Order Comment: Order Added by Rudi Expert. Performed By: #### 2 431813, 5619162, 5986998, 64705335 ####[address] [address] Neutrophils/100 WBC (Bld) 60.4 % Normal 36.0-75.0 [facility] Comment on above: Order Comment: Order Added by Discern Expert. Performed By: #### 2 981161, 4684229, 6470809, 73568821 ####[address] [place] [address] Neutrophils/Leukocy camden Auto (Bld) [Pure # fraction] 3.6 E9/L Normal 2.0-7.5 [facility] Comment on above: Order Comment: Order Added by Discern Expert. Performed By: #### 2 860356, 8853702, 6211224, 29266518 ####[address] [address] CBC w/ Auto Diffon Erythrocyte distribution width (RBC) [Ratio] 14.5 % High 10.9-14.2 [facility] Comment on above: Performed By: #### 2 409791, 8885459, 6436974, 14286843 ####[address] [address] Hematocrit (Bld) [Volume fraction] 39.5 % Normal 37.7-49.0 [facility] Comment on above: Performed By: #### 2 672641, 6193666, 2231628, 83549899 ####[address] [address] Hemoglobin (Bld) [Mass/Vol] 13.2 g/dL Low 13.5-17.5 [facility] Comment on above: Performed By: #### 2 654049, 6626033, 1492926, 76259388 ####[address] [address] MCH (RBC) [Entitic mass] 31.3 pg Normal 27.0-34.0 [facility] Comment on above: Performed By: #### 2 887799, 9554546, 5763343, 34224962 ####[address] [place] [address] MCHC (RBC) [Mass/Vol] 33.4 g/dL Normal 31.4-36.0 [facility] Comment on above: Performed By: #### 2 114560, 4117042, 3054852, 48410509 ####[facility] [address] [place] [address] MCV (RBC) [Entitic vol] 93.8 fL Normal 80.0-100.0 [facility] Comment on above: Performed By: #### 2 203410, 2740967, 2852115, 45599656 ####[address] [place] [address] Platelet mean volume (Bld) [Entitic vol] 7.8 fL Normal 6.4-10.8 [facility] Comment on above: Performed By: #### 2 575249, 6203933, 3598361, 77769298 ####[address] Platelets (Bld) [#/Vol] 152.0 E9/L Normal 150.0-500.0 [facility] Comment on above: Performed By: #### 2 024465, 0894299, 5166073, 50555328 ####[address] [address] RBC (Bld) [#/Vol] 4.2 E12/L Low 4.3-5.9 [facility] Comment on above: Performed By: #### 2 693434, 2781221, 5586393, 19463612 ####[address] [place] [address] WBC corrected for nucl RBC Auto (Bld) [#/Vol] 6.0 E9/L Normal 4.0-11.0 [facility] Comment on above: Performed By: #### 2 705862, 5162688, 7393635, 48155304 ####[address] [place] [address] CHEMISTRYOrdered By: SYSTEM SYSTEM on 04-05-2023 Albumin [...] 0.6 mg/dL Normal 0.0 - 1.1 mg/dL FT Remisol Calcium [Mass/Vol] 8.8 mg/dL Low 8.9 - 11.1 mg/dL FT Remisol Chloride [Moles/Vol] 97 mmol/L Low 101 - 111 mmol/L FT Remisol CO2 [Moles/Vol] 30 mmol/L Normal 21 - 31 mmol/L FT [facility] Creatinine [Mass/Vol] 1.0 mg/dL Normal 0.5 - 1.3 mg/dL FT Remisol GFR/1.73 sq M.predicted among non-blacks MDRD (S/P/Bld) [Vol rate/Area] 78 mL/min/1.73 m2 Normal >=59mL/min/1.73 m2 [facility] Chem S Globulin (S) [Mass/Vol] 3.7 g/dL Normal 1.4 - 4.0 gm/dL FT Remisol Glucose [Mass/Vol] 153 mg/dL Normal 55 - 199 mg/dL FT [facility] Potassium [Moles/Vol] 3.9 mmol/L Normal 3.5 - 5.3 mmol/L FT Remisol Protein [Mass/Vol] 7.2 g/dL Normal 6.0 - 7.8 gm/dL F [facility] Remisol Sodium [Moles/Vol] 136 mmol/L Normal 135 - 145 mmol/L FT Remisol Urea nitrogen [Mass/Vol] 17 mg/dL Normal 5 - 21 mg/dL [facility] Remisol Urea nitrogen/Creatinine [Mass ratio] 17 mg/mg Normal 10 - 20 [facility] Remisol CMPon 04-05-2023 Anion gap [Moles/Vol] 13 mmol/L Normal 6-16 [facility] Comment on above: Performed By: #### 2 408544, 6879326, 7523775, 24122336 ####[facility] [address] [place] [address] Calcium [Mass/Vol] 8.8 mg/dL Low 8.9-11.1 [facility] Comment on above: Performed By: #### 2 311481, 9960383, 6664702, 54372454 ####[facility] [address] [place] [address] Chloride [Moles/Vol] 97 mmol/L Low 101-111 [facility] Comment on above: Performed By: #### 2 062281, 9084960, 3901605, 13453227 ####[facility] [address] [place] [address] CO2 [Moles/Vol] 30 mmol/L Normal 21-31 [facility] Comment on above: Performed By: #### 2 521207, 8731659, 1284440, 18897111 ####[facility] [address] [place] [address] Glucose [Mass/Vol] 153 mg/dL Normal 55-199 [facility] Comment on above: Result Comment: If t his glucose result represents a fasting glucose, interpretation should refer to the following reference range: 55-99 mg/dL Performed By: #### 2 985128, 0077466, 7589975, 02616730 ####[facility] [address] [place] [address] Potassium [Moles/Vol] 3.9 mmol/L Normal 3.5-5.3 [facility] Comment on above: Performed By: #### 2 119491, 9307881, 9177376, 33506634 ####[facility] [address] [place] [address] Sodium [Moles/Vol] 136 mmol/L Normal 135-145 [facility] Comment on above: Performed By: #### 2 744374, 9466487, 9398224, 45313150 ####[facility] [address] [place] [address] Albumin [Mass/Vol] 3.5 g/dL Normal 3.3-5.0 [facility] Comment on above: Performed By: #### 2 603908, 7902619, 8710696, 05093017 ####[address] [place] [address] Albumin/Globulin (S) [Mass conc ratio] 1.0 Low 1.1-2.2 [facility] Comment on above: Performed By: #### 2 325785, 1395958, 5786328, 11936795 ####[address] [place] [address] ALP [Catalytic activity/Vol] 51 Int._Unit/L Normal 21-98 [facility] Comment on above: Performed By: #### 2 429493, 0929460, 9206338, 41100629 ####[address] [place] [address] ALT No additional P-5'-P [Catalytic activity/Vol] 31 Int._Unit/L Normal 6-46 [facility] Comment on above: Performed By: #### 2 370041, 5180214, 9591593, 92099106 ####[facility] [address] [place] [address] AST [Catalytic activity/Vol] 41 Int._Unit/L Normal 5-43 [facility] [facility] Comment on above: Performed By: #### 2 458882, 8525329, 6458443, 10755009 ####[facility] [address] [place] [address] Bilirubin [Mass/Vol] 0.6 mg/dL Normal 0.0-1.1 [facility] Comment on above: Performed By: #### 2 326929, 9656869, 0538709, 70652906 ####[facility] [address] [place] [address] Creatinine [Mass/Vol] 1.0 mg/dL Normal 0.5-1.3 [facility] Comment on above: Performed By: #### 2 623636, 1743482, 3236594, 29414251 ####[facility] [address] [place] [address] Globulin (S) [Mass/Vol] 3.7 g/dL Normal 1.4-4.0 [facility] Comment on above: Performed By: #### 2 413068, 0537642, 9222338, 32964077 ####[facility] [address] [place] [address] Protein [Mass/Vol] 7.2 g/dL Normal 6.0-7.8 [facility] Comment on above: Performed By: #### 2 614213, 1358597, 5284824, 93426088 ####[facility] [address] [place] [address] Urea nitrogen [Mass/Vol] 17 mg/dL Normal 5-21 [facility] Comment on above: Performed By: #### 2 163335, 7817530, 2382947, 82595278 ####[facility] [address] [place] [address] Urea nitrogen/Creatinine [Mass ratio] 17 No Units Normal 10-20 [facility] Comment on above: Performed By: #### 2 919073, 3163135, 0745892, 89002872 ####[facility] [address] [place] [address] Consent for Treatmenton 03-13 Consent for Treatment [id number]#1.00C D:127 Normal [facility] HEMATOLOGYOrdered By: SYSTEM SYSTEM on 04-05-2023 Basophils/100 WBC (Bld) 0.7 % Normal 0.0 - 2.0 % [facility] HemeAutoSS Basophils/Leukocyte s Auto (Bld) [Pure # [...] 93.8 fL Normal 80.0 - 100.0 fL [facility] HemeAutoSS Platelet mean volume (Bld) [Entitic vol] 7.8 fL Normal 6.4 - 10.8 fL [facility] HemeAutoSS Platelets (Bld) [#/Vol] 152.0 E9/L Normal 150.0 - 500.0 E9/L [facility] HemeAutoSS RBC (Bld) [#/Vol] 4.2 E12/L Low 4.3 - 5.9 E12/L [facility] HemeAutoSS WBC corrected for nucl RBC Auto (Bld) [#/Vol] 6.0 E9/L Normal 4.0 - 11.0 E9/L [facility] HemeAutoSS eGFRon 04-05-2023 GFR/1.73 sq M.predicted among non-blacks MDRD (S/P/Bld) [Vol rate/Area] 78 mL/min/1.73 m2 Normal >=59 [facility] Comment on above: Order Comment: Order added by Discern Expert. Result Comment: Certified Driver Examiner cristo kidney disease could be indicated at eGFR's of less than 60 mL/min/1.73m2. Kidney failure is indicated at less than 15 mL/min/1.73m2. Performed By: #### 2 093423, 1411985, 0285363, 77674119 ####[facility] [address] [place] [address] Patient Eval Forms Officeon 04-01-2023 Patient Eval Forms Office [id number]#1.00C D:127 Normal [facility] Consent for Treatmenton 03-12 Consent for Treatment [id number]#1.00C D:127 Normal [facility] Sleep Office/Clinic Noteon 0 03-29-2023 Sleep Office/Clinic Note Normal [facility] Comment on above: Result Comment: Elec tronically Signed By: Chiid ESPINAL, Matty G.\.br\Date and Time Signed: 03/29/23 10:20 EDT Population Healthon 03-21-20 Population Health Normal [facility] C Blood Charcoalon Blood Culture Charcoal Normal [facility] Comment on above: Performed By: #### 1 4364135 ####[facility] [address] [place] [address] Blood Culture Charcoal Normal [facility] Comment on above: Performed By: #### 1 8598771 ####[facility] [address] [place] [address] .VIPER VENOM MIXING STUDYon 03-18-2023 dRVVT w 1:1 PNP Coag (PPP) [Time] 45.3 second(s) High 0.0-40.4 [facility] Comment on above: Result Comment: Perf ormed at: [facility] [address] [id number] MD Taye Sadler Performed By: #### 1 7351815, 76307090, 628151751, 5871120, 59228024, 2166172, 1414650, 06542774, 9818258 ####[facility] [address] [place] [address] Beta-2 Glycoprot.i Aon 03-18 Beta 2 glycoprotein 1 IgA Qn (S) <9 Invalid Interpretation Code 0-25 [facility] Comment on above: Result Comment: The reference interval reflects a 3SD or 99th percentile interval,which is thought to represent a potentially clinically significantresult in accordance with the International Consensus Statement onthe classification criteria for definitive antiphospholipid syndrome(APS). J Thromb Haem 2006;4:295-306. Performed By: #### 1 8230936, 48373076, 968805094, 4703196, 84814027, 1043095, 2880287, 33381008, 8647953 ####[facility] [address] [place] [address] Beta 2 glycoprotein 1 IgG Qn (S) <9 Invalid Interpretation Code 0-20 [facility] Comment on above: Result Comment: The reference interval reflects a 3SD or 99th percentile interval,which is thought to represent a potentially clinically significantresult in accordance with the International Consensus Statement onthe classification criteria for definitive antiphospholipid syndrome(APS). J Thromb Haem 2006;4:295-306. Performed By: #### 1 2598480, 81202689, 903055305, 5904286, 03771823, 0345335, 5285215, 76529833, 7359253 ####[facility] [address] [place] [address] Beta 2 glycoprotein 1 IgM Qn (S) <9 Invalid Interpretation Code 0-32 [facility] Comment on above: Result Comment: The reference interval reflects a 3SD or 99th percentile interval,which is thought to represent a potentially clinically significantresult in accordance with the International Consensus Statement onthe classification criteria for definitive antiphospholipid syndrome(APS). J Thromb Haem 2006;4:295-306.Performed at: [facility] [address] [id number] MD Taye Sadler Performed By: #### 1 1109047, 88159319, 335262714, 4404727, 16738012, 0221645, 2700160, 38082826, 4064918 ####[facility] [address] [place] [address] Consultation Noteon 03-18-20 Consultation Note [id number]#1.00C D:127 Normal [facility] Factor II, DNA Analysison F2 gene c.22581C>A genotype [employer]gen (Bld/Tiss) Comment Invalid Interpretation Code [facility] Comment on above: Result Comment: Resu lt: [...] in theF2 gene and a c.1601G>A (p. Lco185Wgh) variant in the F5 gene(commonly referred to as Factor V Leiden) have an approximately 20-fold increased risk for venous thromboembolism. Risks are likely willard even higher in more complex genotype combinations involving theF2 c.*97G>A variant and Factor V Leiden (PMID: 87866798). Additionalrisk factors include but are not limited [...] for health care providers to discussresults at [phone] ([phone]).Test Details:Variant analyzed: c.*97G>A, previously referred to as R34931YOitzzhh/Limitations:DNA analysis of the F2 gene (NM_[id number]) was [...] was developed and its performance characteristics determinedby [employer]. It has not been cleared or approved by the Food and DrugAdministration.References:Lonny S, Leonie AK, Geovani R, Nakul WW, González JH; ACMG ProfessionalPractice and Guidelines Committee. Addendum: [place] [employer] consensus statement on factor V Leiden mutationtesting. Evon Med. 2020Oct 14. doi: 10.1038/[id number]-v.PMID: 88134144.Sharif GUERRA. Prothrombin Thrombophilia. 2005Mar 05[Updated 2020Sep 15]. In: Douglas MP, Corey CALDERON, Sierra RA, et al.,editors. Khushi(Minal) [Internet]. [employer] ([place]): [facility]; 6224-7971. Available from:https://www.ncbi.nlm.nih.gov/books/EYH2201/Nathan S, Leonie AK, Keagan X, Raghav B, Celina EB, Caroline P, Jamey CS;[facility] Laboratory Diesel Fleet Mechanic Committee. Venous thromboembolismlaboratory testing (factor V Leiden and factor II c.*97G>A),2018 update: a technical standard of the [place] [employer] MedicalGenetics and Genomics (ACMG). Evon Med. 2018 Jul;20(12):1068-0388.doi: 10.1038/[id number]-w. Epub 2017May 16. PMID: 64251875. Performed By: #### 1 3444945, 05977177, 917891981, 6310748, 61538715, 4325078, 2909235, 17538812, 5405300 ####[facility] [address] [place] [address] Factor V Leidenon 03-18-2023 F5 gene p.Ovo207Jbz [facility] (Bld/Tiss) Comment Invalid Interpretation Code [facility] Comment on above: Result Comment: Resu lt: c.1601G>A (p.Khl394Jjy) - Not DetectedThis result is not associated with an increased risk for venousthromboembolism. See Additional Clinical Information andComments.Additional Clinical Information:Venous thromboembolism is a multifactorial disease influenced bygenetic, environmental, and circumstantial risk factors. The c.1601G>A(p. Ktq213Ywa) variant in the F5 gene, commonly referred [...] F2 c.*97G>A variant andFactor V Leiden (PMID: 96108562). Additional risk factors include butare not limited [...] for health care providers todiscuss results at [phone] ([phone]).Test Details:Variant Analyzed: c.1601G>A (p. Sxi244Bus), referred to as Factor VLeidenMethods/Limitations:DNA analysis of [...] was developed and its performance characteristicsdetermined by [employer]. It has not been cleared or approved by theFood and Drug Administration.References:Lonny S, Leonie AK, Geovani R, Nakul WW, González JH; ACMG ProfessionalPractice and Guidelines Committee. Addendum: [place] [employer] consensus statement on factor V Leiden mutationtesting. Evon Med. 2020Oct 14. doi: 10.1038/[id number]-g.PMID: 58604640.Sharif GUERRA. Factor V Leiden Thrombophilia. 1998December 23(Updated 2017Aug 15). In: Douglas ARANDA, Corey HH, Sierra RA, et al.,editors. Khushi(Minal) (Internet). [employer] ([place]): [facility]; 3568-7306. Available from:https://www.ncbi.nlm.nih.gov/books/HQI2650/Nathan S, Leonie AK, Keagan X, Raghav B, Cleina EB, Caroline P, Jamey CS;[facility] Laboratory Diesel Fleet Mechanic Committee. Venous thromboembolismlaboratory testing (factor V Leiden and factor II c.*97G>A), 2018update: a technical standard of the [place] [employer] MedicalGenetics and Genomics (ACMG). Evon Med. 2018 Jul;20(12):1242-9463.doi: 10.1038/[id number]-j. Epub 2017May 16. PMID: 10910049. Performed By: #### 1 2213324, 54742985, 581768712, 0662975, 47982607, 8764260, 9850132, 99059152, 7920538 ####[facility] [address] [place] [address] Lupus Anticoagon 03-18-2023 aPTT.lupus sensitive Coag (PPP) [Time] 32.6 second(s) Invalid Interpretation Code 0.0-43.5 [facility] Comment on above: Performed By: #### 1 2519323, 39492109, 460108565, 5444187, 93327265, 9843844, 1577107, 16094054, 7513409 ####[facility] [address] [place] [address] dRVVT Coag (PPP) [Time] 50.9 second(s) High 0.0-47.0 [facility] Comment on above: Result Comment: Perf ormed at: [facility] [address] [id number] MD Taye Sadler Performed By: #### 1 0015591, 80441506, 930846028, 4996704, 98620776, 9763710, 9264772, 30627902, 9145228 ####[facility] [address] [place] [address] Lupus anticoagulant two screening tests W Reflex Coag (PPP) [Interp] Comment: Invalid Interpretation Code [facility] Comment on above: Result Comment: No l upus anticoagulant was detected. These results are consistent withspecific inhibitors to one or more common pathway factors (X, V, II orfibrinogen).Performed at: [facility] [id number] MD Taye Sadler Performed By: #### 1 3695268, 06867495, 999811403, 6555786, 03271451, 9727522, 2991577, 36267700, 2469649 ####[address] [place] [address] dRVVT CONFIRMon 03-18-2023 dRVVT/dRVVT.excess phospholipid Coag (PPP) [Ratio] 0.9 ratio Invalid Interpretation Code 0.8-1.2 [facility] Comment on above: Result Comment: Perf ormed at: [facility] [id number] MD Taye Sadler Performed By: #### 1 6612530, 68394427, 153368060, 5195444, 03485213, 1978499, 1368007, 01543018, 8080090 ####[facility] [address] [place] [address] Auto Diffon 03-13-2023 Basophils/100 WBC (Bld) 0.6 % Normal 0.0-2.0 [facility] Comment on above: Order Comment: Order Added by Discern Expert. Performed By: #### 2 537056, 3031668, 9541729, 73392374, 72016306, 42429600, 5336243, 4836458 ####[facility] [address] [place] [address] Basophils/Leukocyte s Auto (Bld) [Pure # fraction] 0.1 E9/L Normal 0.0-0.2 [facility] Comment on above: Order Comment: Order Added by Discern Expert. Performed By: #### 2 305214, 4547731, 6175736, 54786606, 07078252, 28016545, 6912713, 6670192 ####[address] [place] [address] Eosinophils/100 WBC (Bld) 2.2 % Normal 0.0-8.0 [facility] Comment on above: Order Comment: Order Added by Discern Expert. Performed By: #### 2 938784, 2101446, 6522514, 45284540, 47720350, 10849143, 8715346, 2149985 ####[address] [place] [address] Eosinophils/Leukocy camden Auto (Bld) [Pure # fraction] 0.2 E9/L Normal 0.0-0.5 [facility] Comment on above: Order Comment: Order Added by Discern Expert. Performed By: #### 2 960495, 1446647, 8212438, 89175902, 65007966, 90134896, 7730530, 7967028 ####[address] [address] Lymphocytes/100 WBC (Bld) 20.6 % Normal 14.0-50.0 [facility] Comment on above: Order Comment: Order Added by Discern Expert. Performed By: #### 2 927874, 0235403, 9205013, 92358305, 88012632, 01076544, 1566050, 8788455 ####[address] [place] [address] Lymphocytes/Leukocy camden Auto (Bld) [Pure # fraction] 1.8 E9/L Normal 1.0-4.0 [facility] Comment on above: Order Comment: Order Added by Discern Expert. Performed By: #### 2 273045, 2868230, 6985363, 68805382, 26863816, 10928650, 9328355, 6195725 ####[address] [address] Monocytes/100 WBC (Bld) 7.6 % Normal 4.0-14.0 [facility] Comment on above: Order Comment: Order Added by Discern Expert. Performed By: #### 2 015927, 2211570, 0892897, 73039503, 42548284, 93951282, 3735094, 1499098 ####[facility] [address] [place] [address] Monocytes/Leukocyte s Auto (Bld) [Pure # fraction] 0.7 E9/L Normal 0.2-1.0 [facility] Comment on above: Order Comment: Order Added by Discern Expert. Performed By: #### 2 728446, 7427496, 0407833, 24004539, 78508491, 93701482, 2936288, 0228270 ####[address] [place] [address] Neutrophils/100 WBC (Bld) 69.0 % Normal 36.0-75.0 [facility] Comment on above: Order Comment: Order Added by Discern Expert. Performed By: #### 2 438635, 4203025, 5406950, 75962811, 50675239, 84082176, 8510257, 5997967 ####[facility] [address] [place] [address] Neutrophils/Leukocy camden Auto (Bld) [Pure # fraction] 6.1 E9/L Normal 2.0-7.5 [facility] Comment on above: Order Comment: Order Added by Discern Expert. Performed By: #### 2 081720, 6265873, 3820722, 37028164, 42600102, 32644581, 0973803, 7577019 ####[facility] [address] [place] [address] BMPon 03-13-2023 Creatinine [Mass/Vol] 0.9 mg/dL Normal 0.5-1.3 [facility] Comment on above: Performed By: #### 2 898398, 9539656, 3546033, 03479835, 97234039, 70299553, 5941447, 7990888 ####[facility] [address] [place] [address] Urea nitrogen [Mass/Vol] 15 mg/dL Normal 5-21 [facility] Comment on above: Performed By: #### 2 944547, 5411541, 4833451, 77322074, 63809886, 01216795, 1289868, 2955651 ####[facility] [address] [place] [address] Urea nitrogen/Creatinine [Mass ratio] 17 No Units Normal 10-20 [facility] Comment on above: Performed By: #### 2 664357, 9129390, 0169193, 79056454, 53856615, 03587847, 6364898, 8825940 ####[facility] [address] [place] [address] Anion gap [Moles/Vol] 12 mmol/L Normal 6-16 [facility] Comment on above: Performed By: #### 2 405741, 7856325, 2454927, 46775019, 33371298, 40620112, 2526106, 3309690 ####[facility] [address] [place] [address] Calcium [Mass/Vol] 8.6 mg/dL Low 8.9-11.1 [facility] Comment on above: Performed By: #### 2 830944, 1636414, 1340730, 28349507, 36939602, 79361908, 4039188, 2103181 ####[facility] [address] [place] [address] Chloride [Moles/Vol] 103 mmol/L Normal 101-111 [facility] Comment on above: Performed By: #### 2 281330, 6002526, 4145183, 30460500, 06374186, 47993717, 5230822, 3686694 ####[facility] [address] [place] [address] CO2 [Moles/Vol] 26 mmol/L Normal 21-31 [facility] Comment on above: Performed By: #### 2 553030, 9242926, 2250311, 18464027, 48865847, 71201820, 3586038, 7792007 ####[facility] [address] [place] [address] Glucose [Mass/Vol] 124 mg/dL Normal 55-199 [facility] Comment on above: Result Comment: If t his glucose result represents a fasting glucose, interpretation should refer to the following reference range: 55-99 mg/dL Performed By: #### 2 631350, 5210405, 9017661, 56476615, 90937539, 40724693, 1316701, 0063879 ####[facility] [address] [place] [address] Potassium [Moles/Vol] 4.0 mmol/L Normal 3.5-5.3 [facility] Comment on above: Performed By: #### 2 195553, 5003383, 9484096, 07972108, 24580510, 34193911, 8913808, 8166298 ####[facility] [address] [place] [address] Sodium [Moles/Vol] 137 mmol/L Normal 135-145 [facility] Comment on above: Performed By: #### 2 021093, 8950400, 4791967, 32513328, 69563401, 98003974, 7155161, 5056674 ####[address] [address] BNPon 03-13-2023 Int Ctr BNP Pass Normal [facility] Comment on above: Performed By: #### 2 711406, 1761494, 5883496, 34035138, 80231278, 34003104, 0703611, 4953606 ####[address] [place] [address] Natriuretic peptide B (Bld) [Mass/Vol] 16 pg/mL Normal 5-80 [facility] Comment on above: Performed By: #### 2 792657, 1922042, 2018568, 15084804, 79911697, 22336253, 8726225, 6940830 ####[facility] [address] [place] [address] CBC w/ Auto Diffon 3 Erythrocyte distribution width (RBC) [Ratio] 14.6 % High 10.9-14.2 [facility] Comment on above: Performed By: #### 2 842798, 4977449, 6698252, 99191774, 88159937, 88389494, 7652900, 8291847 ####[address] [place] [address] Hematocrit (Bld) [Volume fraction] 38.2 % Normal 37.7-49.0 [facility] Comment on above: Performed By: #### 2 102870, 2865607, 0344018, 25910255, 56926418, 72446842, 9750612, 6535861 ####[address] [place] [address] Hemoglobin (Bld) [Mass/Vol] 13.0 g/dL Low 13.5-17.5 [facility] Comment on above: Performed By: #### 2 084163, 2509356, 5417282, 15629358, 25310182, 40979580, 8186427, 6017144 ####[address] [address] MCH (RBC) [Entitic mass] 31.5 pg Normal 27.0-34.0 [facility] Comment on above: Performed By: #### 2 944222, 0342874, 2810793, 64997687, 97210369, 36519427, 5073012, 6273666 ####[address] [place] [address] MCHC (RBC) [Mass/Vol] 34.0 g/dL Normal 31.4-36.0 [facility] Comment on above: Performed By: #### 2 559201, 0992928, 7425080, 71637798, 87040340, 49924714, 1210884, 1481409 ####[address] [place] [address] MCV (RBC) [Entitic vol] 92.7 fL Normal 80.0-100.0 [facility] Comment on above: Performed By: #### 2 895891, 1781942, 4577045, 09988257, 22738841, 16602811, 6309212, 3202726 ####[address] [address] Platelet mean volume (Bld) [Entitic vol] 7.9 fL Normal 6.4-10.8 [facility] Comment on above: Performed By: #### 2 809986, 9396304, 6569600, 26219326, 16344920, 45074926, 7237076, 2507305 ####[address] [address] Platelets (Bld) [#/Vol] 137.0 E9/L Low 150.0-500.0 [facility] Comment on above: Performed By: #### 2 272790, 8875101, 6713901, 40754078, 83898900, 37075862, 0773536, 9002959 ####[address] [address] RBC (Bld) [#/Vol] 4.1 E12/L Low 4.3-5.9 [facility] Comment on above: Performed By: #### 2 019904, 0212372, 3033354, 44525612, 02425224, 36226234, 2420556, 7750535 ####[address] [address] WBC corrected for nucl RBC Auto (Bld) [#/Vol] 8.9 E9/L Normal 4.0-11.0 [facility] Comment on above: Performed By: #### 2 745557, 3000504, 0415103, 35945763, 77733948, 61738775, 5850738, 8814535 ####[address] [place] [address] CHEMISTRYOrdered By: SYSTEM SYSTEM on 03-13-2023 Anion [...] Remisol CRP [Mass/Vol] 1.3 mg/dL Normal <=1.9mg/dL [facility] Remisol GFR/1.73 sq M.predicted among non-blacks MDRD (S/P/Bld) [Vol rate/Area] 89 mL/min/1.73 m2 Normal >=59mL/min/1.73 m2 [facility] Chem S Glucose [Mass/Vol] 124 mg/dL Normal 55 - 199 mg/dL FT Remisol Lactate [Mass/Vol] 3.0 mmol/L High 0.5 - 2.2 mmol/L FT Remisol Potassium [Moles/Vol] 4.0 mmol/L Normal 3.5 - 5.3 mmol/L [facility] Remisol Sodium [Moles/Vol] 137 mmol/L Normal 135 - 145 mmol/L [facility] Remisol Troponin I.cardiac [Mass/Vol] 10.20 pg/mL Low 15.90 - 38.40 pg/mL [facility] Remisol Urea nitrogen [Mass/Vol] 15 mg/dL Normal 5 - 21 mg/dL [facility] Remisol Urea nitrogen/Creatinine [Mass ratio] 17 mg/mg Normal 10 - 20 [facility] Remisol CHEMISTRYOrdered By: Yandel Caballero on 03-13-2023 Natriuretic peptide B (Bld) [Mass/Vol] 16 pg/mL Normal 5 - 80 pg/mL [facility] HemeManSS CRPon 03-13-2023 CRP [Mass/Vol] 1.3 mg/dL Normal <=1.9 [facility] Comment on above: Performed By: #### 2 666889, 5113351, 4110169, 61916536, 99742792, 31799853, 3035798, 3769371 ####[facility] [address] [place] [address] Consenton 03-13-2023 Consent [id number]#1.00 CD:127 Normal [facility] Consent for Treatmenton Consent for Treatment [id number]#1.00C D:127 Normal [facility] Discharge Instructionson Discharge Instructions [id number] CD:127 Normal [facility] ED Clinical Summaryon 2022 ED Clinical Summary Normal [facility] ED Note-Physicianon 03-13-20 ED Note-Physician Normal [facility] Comment on above: Result Comment: Elec tronically Signed By: Jordan Dean DO SJase\.br\Date and Time Signed: 03/13/23 04:21 EDT ED Patient Education Noteon 03-13-2023 ED Patient Education Note Normal [facility] ED Patient Summaryon 023 ED Patient Summary Normal [facility] HEMATOLOGYOrdered By: SYSTEM SYSTEM on 03-13-2023 Basophils/100 [...] 20.6 % Normal 14.0 - 50.0 % [facility] HemeAutoSS Lymphocytes/Leukocy [place] Auto (Bld) [Pure # fraction] 1.8 E9/L Normal 1.0 - 4.0 E9/L [facility] HemeAutoSS Monocytes/100 WBC (Bld) 7.6 % Normal 4.0 - 14.0 % [facility] HemeAutoSS Monocytes/Leukocyte s Auto (Bld) [Pure # fraction] 0.7 E9/L Normal 0.2 - 1.0 E9/L [facility] HemeAutoSS Neutrophils/100 WBC (Bld) 69.0 % Normal 36.0 - 75.0 % [facility] HemeAutoSS Neutrophils/Leukocy cam[place] Auto (Bld) [Pure # fraction] 6.1 E9/L Normal 2.0 - 7.5 E9/L [facility] HemeAutoSS HEMATOLOGYOrdered By: Yokasta Caballero on 03-13-2023 Erythrocyte distribution width (RBC) [Ratio] 14.6 % High 10.9 - 14.2 % [facility] HemeAutoSS Hematocrit (Bld) [Volume fraction] 38.2 % Normal 37.7 - 49.0 % [facility] HemeAutoSS Hemoglobin (Bld) [Mass/Vol] 13.0 g/dL Low 13.5 - 17.5 gm/dL [facility] HemeAutoSS MCH (RBC) [Entitic mass] 31.5 pg Normal 27.0 - 34.0 pg [facility] HemeAutoSS MCHC (RBC) [Mass/Vol] 34.0 g/dL Normal 31.4 - 36.0 gm/dL [facility] HemeAutoSS MCV (RBC) [Entitic vol] 92.7 fL Normal 80.0 - 100.0 fL [facility] HemeAutoSS Platelet mean volume (Bld) [Entitic vol] 7.9 fL Normal 6.4 - 10.8 fL [facility] HemeAutoSS Platelets (Bld) [#/Vol] 137.0 E9/L Low 150.0 - 500.0 E9/L [facility]eAutoSS RBC (Bld) [#/Vol] 4.1 E12/L Low 4.3 - 5.9 E12/L [facility]eAutoSS WBC corrected for nucl RBC Auto (Bld) [#/Vol] 8.9 E9/L Normal 4.0 - 11.0 E9/L [facility] HemeAutoSS Lab Miscellaneous-LCon 03-13 Lab Miscellaneous COMMENT Invalid Interpretation Code [facility] Comment on above: Result Comment: Test Ordered: [id number] Protein C- FunctionalProtein C-Functional 138 % BNReference Range: 73-180Performed at: [facility]rbupy[facility]98 [place], [place] [id number] PhD Quinn Pinedo Performed By: #### 1 [id number] ####[facility] [address] [place] [address] Result Comment: Test Ordered: [id number] Protein S-AntigenProtein S, Total 97 % BNReference Range: 60-150This test was developed and its performance characteristicsdetermined by [employer]. It has not been cleared or approvedby the Food and Drug Administration.Protein S, Free 118 % BNReference Range: 61-136Performed at: [facility] HospitalDkjjnv5157 [place], [place] [id number] PhD Quinn Pinedo Result Comment: Test Ordered: [id number] Protein S-FunctionalProtein S-Functional 112 % BNReference Range: 63-140Protein S activity may be falsely increased (masking an abnormal, lowresult) in patients receiving direct Xa inhibitor (e.g., rivaroxaban,apixaban, edoxaban) or a direct thrombin inhibitor (e.g., dabigatran)anticoagulant treatment due to assay interference by these drugs.Performed at: [facility]Tkbhgm6644 [place], [place] [id number] PhD Quinn Pinedo Lactic Acidon 03-13-2023 Lactate [Mass/Vol] 3.0 mmol/L High 0.5-2.2 [facility] Comment on above: Performed By: #### 2 631873, 8006870, 1614837, 68256695, 64437150, 07019290, 4113070, 7226861 ####[facility] [address] [place] [address] Troponin 0 Hr.on 03-13-2023 Troponin I.cardiac [Mass/Vol] 10.20 pg/mL Low 15.90-38.40 [facility] Comment on above: Result Comment: The 95% CI (Confidence Interval) PPV (Positive Predictive Value) for myocardial infarction in females is 38 pg/mL, in males 51 pg/mL. The results should be used in conjunction with clinical conditions of myocardial infarction.(Access High Sensitivity Troponin I Instructions For Use, Nikky Florissant, March 2018) Performed By: #### 2 916102, 9785844, 6436994, 47339458, 94562706, 36611613, 8550983, 1771550 ####[facility] [address] [place] [address] eGFRon 03-13-2023 GFR/1.73 sq M.predicted among non-blacks MDRD (S/P/Bld) [Vol rate/Area] 89 mL/min/1.73 m2 Normal >=59 [facility] Comment on above: Order Comment: Order added by Discern Expert. Result Comment: Certified Driver Examiner cristo kidney disease could be indicated at eGFR's of less than 60 mL/min/1.73m2. Kidney failure is indicated at less than 15 mL/min/1.73m2. Performed By: #### 2 674817, 6471162, 2985384, 71470369, 85703997, 17190721, 0185556, 1478250 ####[facility] [address] [place] [address] LISA ABS Ig G,M,Aon 3 Cardiolipin IgA IA Qn (S) <9 Invalid Interpretation Code 0-11 [facility] Comment on above: Result Comment: Nega tive: <12Indeterminate: 12 - 20Low-Med Positive: >20 - 80High Positive: >80Performed at: [facility] HospitalPbkczb9885 [place], [place] [id number] PhD Quinn Pinedo Performed By: #### 1 [id number] ####[facility] [address] [place] [address] Cardiolipin IgG IA Qn (S) <9 Invalid Interpretation Code 0-14 [facility] Comment on above: Result Comment: Nega tive: <15Indeterminate: 15 - 20Low-Med Positive: >20 - 80High Positive: >80 Performed By: #### 1 [id number] ####[facility] [address] [place] [address] Cardiolipin IgM IA Qn (S) <9 Invalid Interpretation Code 0-12 [facility] Comment on above: Result Comment: Nega tive: <13Indeterminate: 13 - 20Low-Med Positive: >20 - 80High Positive: >80 Performed By: #### 1 [id number] ####[facility] [address] [place] [address] Auto Diffon 03-11-2023 Basophils/100 WBC (Bld) 1.0 % Normal 0.0-2.0 [facility] Comment on above: Order Comment: Order Added by Discern Expert. Performed By: #### 1 2599536, 75346385, 188299731, 3315868, 01578434, 0112696, 7867308, 42929975, 5911088 ####[address] [address] Basophils/Leukocyte s Auto (Bld) [Pure # fraction] 0.1 E9/L Normal 0.0-0.2 [facility] Comment on above: Order Comment: Order Added by Discern Expert. Performed By: #### 1 1158345, 93794209, 652298959, 2724019, 97542058, 7486433, 0841531, 45582942, 4314259 ####[facility] [address] [place] [address] Eosinophils/100 WBC (Bld) 2.1 % Normal 0.0-8.0 [facility] Comment on above: Order Comment: Order Added by Discern Expert. Performed By: #### 1 7319548, 40593207, 377584389, 5545043, 32704137, 6925667, 3401073, 11586852, 9947969 ####[address] [place] [address] Eosinophils/Leukocy cam[place] Auto (Bld) [Pure # fraction] 0.2 E9/L Normal 0.0-0.5 [facility] Comment on above: Order Comment: Order Added by Discern Expert. Performed By: #### 1 0846116, 43570821, 649497500, 2309221, 21802041, 7478616, 4944851, 10321099, 5958807 ####[address] [place] [address] Lymphocytes/100 WBC (Bld) 23.1 % Normal 14.0-50.0 [facility] Comment on above: Order Comment: Order Added by Discern Expert. Performed By: #### 1 1988624, 79071897, 758467504, 8792907, 42352878, 8188175, 3136607, 97542827, 0563463 ####[address] [place] [address] Lymphocytes/Leukocy cam[place] Auto (Bld) [Pure # fraction] 1.7 E9/L Normal 1.0-4.0 [facility] Comment on above: Order Comment: Order Added by Discern Expert. Performed By: #### 1 7234072, 84122417, 008438706, 9670050, 13304229, 4588169, 7914806, 73260137, 5428433 ####[address] [place] [address] Monocytes/100 WBC (Bld) 7.3 % Normal 4.0-14.0 [facility] Comment on above: Order Comment: Order Added by Discern Expert. Performed By: #### 1 9208692, 64738024, 027501971, 8651669, 36818247, 4671656, 3887773, 89587385, 2581791 ####[address] [place] [address] Monocytes/Leukocyte s Auto (Bld) [Pure # fraction] 0.6 E9/L Normal 0.2-1.0 [facility] Comment on above: Order Comment: Order Added by Discern Expert. Performed By: #### 1 5522993, 15372907, 816038754, 8937657, 33537164, 0660559, 5259835, 85525425, 3045552 ####[address] [place] [address] Neutrophils/100 WBC (Bld) 66.5 % Normal 36.0-75.0 [facility] Comment on above: Order Comment: Order Added by Discern Expert. Performed By: #### 1 7414166, 18350740, 312094194, 5471345, 39315952, 9342742, 0399748, 32865983, 4395036 ####[facility] [address] [place] [address] Neutrophils/Leukocy cam[place] Auto (Bld) [Pure # fraction] 5.0 E9/L Normal 2.0-7.5 [facility] Comment on above: Order Comment: Order Added by Discern Expert. Performed By: #### 1 0510586, 20559687, 439481460, 9035499, 79127106, 8975991, 3899295, 46018763, 0441352 ####[facility] [address] [place] [address] CBC w/ Auto Diffon 3 Erythrocyte distribution width (RBC) [Ratio] 14.6 % High 10.9-14.2 [facility] Comment on above: Performed By: #### 1 9270462, 13127134, 586851755, 1674319, 94512317, 0164339, 1070007, 33916908, 7908056 ####[address] [place] [address] Hematocrit (Bld) [Volume fraction] 39.8 % Normal 37.7-49.0 [facility] Comment on above: Performed By: #### 1 0843824, 43641908, 277021571, 7643017, 10337542, 6683212, 8439036, 93723852, 8587713 ####[facility] [address] [place] [address] Hemoglobin (Bld) [Mass/Vol] 13.3 g/dL Low 13.5-17.5 [facility] Comment on above: Performed By: #### 1 1511927, 59534013, 397407931, 9446490, 67438296, 6540960, 6306963, 73530184, 2894529 ####[facility] [address] [place] [address] MCH (RBC) [Entitic mass] 31.2 pg Normal 27.0-34.0 [facility] Comment on above: Performed By: #### 1 8925486, 77521808, 948919043, 2382427, 27901231, 7074549, 2456563, 88901374, 0834956 ####[address] [place] [address] MCHC (RBC) [Mass/Vol] 33.4 g/dL Normal 31.4-36.0 [facility] Comment on above: Performed By: #### 1 2097761, 00381452, 767448735, 4619928, 97316598, 1401708, 7016861, 20934875, 0041686 ####[address] [address] MCV (RBC) [Entitic vol] 93.2 fL Normal 80.0-100.0 [facility] Comment on above: Performed By: #### 1 7806477, 05927855, 304354442, 2207847, 57929743, 8560094, 1527145, 89602131, 4595697 ####[address] [address] Platelet mean volume (Bld) [Entitic vol] 8.1 fL Normal 6.4-10.8 [facility] Comment on above: Performed By: #### 1 0492547, 49727919, 037067842, 8718552, 82748212, 2775294, 9966225, 18285119, 1659304 ####[address] [address] Platelets (Bld) [#/Vol] 174.0 E9/L Normal 150.0-500.0 [facility] Comment on above: Performed By: #### 1 5143716, 85249022, 563108893, 2669302, 58943338, 1991089, 7652856, 60539567, 7058217 ####[facility] [address] [place] [address] RBC (Bld) [#/Vol] 4.3 E12/L Normal 4.3-5.9 [facility] Comment on above: Performed By: #### 1 3116458, 04903886, 898411900, 4575459, 42155210, 4972657, 3571173, 89613451, 9214643 ####[facility] [address] [place] [address] WBC corrected for nucl RBC Auto (Bld) [#/Vol] 7.5 E9/L Normal 4.0-11.0 [facility] Comment on above: Performed By: #### 1 7833943, 48635262, 364721799, 0145767, 50237487, 3154784, 4033066, 17560463, 1967728 ####[facility] [address] [place] [address] COAGULATIONOrdered By: Brandie Sams on 03-11-2023 Fibrin D-dimer FEU (PPP) [Mass/Vol] 1012 ng/mL FEU Invalid Interpretation Code 215 - 500 ng/mL FEU [facility] Auto Coag Comment on above: Result Comment: Resu lts Called To Onc/Jerica Sánchez By And Read Back For Confirmation On 03/11/2023 12:57:21 EDT Results Verified By Repeat Analysis Consent for Treatmenton 02-11 Consent for Treatment [id number] D:127 Normal [facility] D-Dimeron 03-11-2023 Fibrin D-dimer FEU (PPP) [Mass/Vol] 1012 CD:[id number] Abnormal 215-500 [facility] Comment on above: Result Comment: Resu lts [...] skin infectionsLiver cirrhosisPregnancy Performed By: #### 1 2685764, 86328390, 129684927, 4690110, 06093915, 8426424, 5117951, 37814701, 4507467 ####[facility] [address] [place] [address] HEMATOLOGYOrdered By: SYSTEM SYSTEM on 03-11-2023 Basophils/100 [...] 66.5 % Normal 36.0 - 75.0 % [facility] HemeAutoSS Neutrophils/Leukocy [place] Auto (Bld) [Pure # fraction] 5.0 E9/L Normal 2.0 - 7.5 E9/L [facility] HemeAutoSS HEMATOLOGYOrdered By: Yessica Murdock on 03-11-2023 Erythrocyte distribution width (RBC) [Ratio] 14.6 % High 10.9 - 14.2 % [facility] HemeAutoSS Hematocrit (Bld) [Volume fraction] 39.8 % Normal 37.7 - 49.0 % [facility] HemeAutoSS Hemoglobin (Bld) [Mass/Vol] 13.3 g/dL Low 13.5 - 17.5 gm/dL [facility] HemeAutoSS MCH (RBC) [Entitic mass] 31.2 pg Normal 27.0 - 34.0 pg [facility] HemeAutoSS MCHC (RBC) [Mass/Vol] 33.4 g/dL Normal 31.4 - 36.0 gm/dL [facility] HemeAutoSS MCV (RBC) [Entitic vol] 93.2 fL Normal 80.0 - 100.0 fL [facility] HemeAutoSS Platelet mean volume (Bld) [Entitic vol] 8.1 fL Normal 6.4 - 10.8 fL [facility] HemeAutoSS Platelets (Bld) [#/Vol] 174.0 E9/L Normal 150.0 - 500.0 E9/L [facility] HemeAutoSS RBC (Bld) [#/Vol] 4.3 E12/L Normal 4.3 - 5.9 E12/L [facility] HemeAutoSS WBC corrected for nucl RBC Auto (Bld) [#/Vol] 7.5 E9/L Normal 4.0 - 11.0 E9/L [facility] HemeAutoSS Lab Miscellaneous-LCon 03-11 Test Code 977927 Invalid Interpretation Code [facility] Comment on above: Performed By: #### 1 [id number] ####[facility] [address] [place] [address] Test Code 058766 Invalid Interpretation Code [facility] Comment on above: Performed By: #### 1 [id number] ####[facility] [address] [place] [address] Test Code 346459 Invalid Interpretation Code [facility] Comment on above: Performed By: #### 1 [id number] ####[facility] [address] [place] [address] Test Name Protein C Invalid Interpretation Code [facility] Comment on above: Performed By: #### 1 [id number] ####[facility] [address] [place] [address] Test Name Protein S Funct Invalid Interpretation Code [facility] Comment on above: Performed By: #### 1 [id number] ####[facility] [address] [place] [address] Test Name Protein S Antig Invalid Interpretation Code [facility] Comment on above: Performed By: #### 1 [id number] ####[facility] [address] [place] [address] Oncology Progress Noteon Oncology Progress Note Normal [facility] Reference Laboratory Testing Ordered By: Sylwia Lubin on 03-11-2023 Test Code 403633 Invalid Interpretation Code [facility] SendOutsSS Test Code 182150 Invalid Interpretation Code [facility] Test Code 425084 Invalid Interpretation Code [facility] Test Name Protein C Invalid Interpretation Code [facility] Test Name Protein S Funct Invalid Interpretation Code [facility] Test Name Protein S Antig Invalid Interpretation Code [facility] SendOuts[facility] Population Healthon 03-05-20 Population Health Normal [facility] Ambulatory Visit Summaryon 0 03-01-2023 Ambulatory Visit Summary Invalid Interpretation Code [address] [place] [address]- \.br\ Saturday 11:00 AM EST \.br\ With:\.br\ Where: [facility] Primary Care [facility] Family Medicine Office/Clini c Noteon 03-01-2023 Family Medicine Office/Clinic Note Normal [facility] Comment on above: Result Comment: Elec tronically Signed By: Kevin LOBO MD\.br\Date and Time Signed: 03/01/23 13:42 EDT Patient Educationon 03-01-20 Patient Education Normal [facility] C Blood Charcoalon Blood Culture Charcoal Normal [facility] Comment on above: Performed By: #### 1 3489905 ####[facility] [address] [place] [address] Blood Culture Charcoal Normal [facility] Comment on above: Performed By: #### 1 8992423 ####[facility] [address] [place] [address] Prescriptions/Work Noteson 0 02-21-2023 Prescriptions/Work Notes [id number] CD:127 Normal [facility] Discharge Instructionson Discharge Instructions [id number] CD:127 Normal [facility] Population Healthon 02-21-20 23 Population Health Normal [facility] BMPon 02-19-2023 Anion gap [Moles/Vol] 10 mmol/L Normal 6-16 [facility] Comment on above: Performed By: #### 2 007206, 19389468, 4892351 ####[facility] [address] [place] [address] Calcium [Mass/Vol] 9.1 mg/dL Normal 8.9-11.1 [facility] Comment on above: Performed By: #### 2 402964, 44524289, 7597415 ####[facility] [address] [place] [address] Chloride [Moles/Vol] 99 mmol/L Low 101-111 [facility] Comment on above: Performed By: #### 2 924067, 11914818, 8005258 ####[facility] [address] [place] [address] CO2 [Moles/Vol] 32 mmol/L High 21-31 [facility] Comment on above: Performed By: #### 2 613601, 16666275, 7667728 ####[facility] [address] [place] [address] Creatinine [Mass/Vol] 0.9 mg/dL Normal 0.5-1.3 [facility] Comment on above: Performed By: #### 2 114164, 60098987, 8535186 ####[facility] [address] [facility] [address] Glucose [Mass/Vol] 148 mg/dL Normal 55-199 [facility] Comment on above: Result Comment: If t his glucose result represents a fasting glucose, interpretation should refer to the following reference range: 55-99 mg/dL Performed By: #### 2 656200, 45287785, 8865521 ####[facility] [address] [facility] [place] [address] Potassium [Moles/Vol] 4.0 mmol/L Normal 3.5-5.3 [facility] Comment on above: Performed By: #### 2 494126, 67778736, 0411447 ####[facility] [address] [place] [address] Sodium [Moles/Vol] 137 mmol/L Normal 135-145 [facility] Comment on above: Performed By: #### 2 187896, 56209782, 9876041 ####[facility] [address] [place] [address] Urea nitrogen [Mass/Vol] 10 mg/dL Normal 5-21 [facility] Comment on above: Performed By: #### 2 106446, 03808247, 6220243 ####[facility] [address] [place] [address] Urea nitrogen/Creatinine [Mass ratio] 11 No Units Normal 10-20 [facility] Comment on above: Performed By: #### 2 988162, 57448382, 6395275 ####[facility] [address] [place] [address] CHEMISTRYOrdered By: Lab ROP User on 02-19-2023 Glucose [Mass/Vol] 159 mg/dL High 55 - 99 mg/dL [facility] C POC Subsection Comment on above: Result Comment: Georgette palacios RN/ POC Device SN [id number] Invalid Interpretation Code [facility] POC Subsection POC User ID [id number] Invalid Interpretation Code [facility] POC Subsection POC Username ISABELL SAWYER Invalid Interpretation Code [facility] POC Subsection Glucose [Mass/Vol] 176 mg/dL High 55 - 99 mg/dL [facility] C POC Subsection Comment on above: Result Comment: Georgette palacios RN/ POC Device SN [id number] Invalid Interpretation Code [facility] POC Subsection POC User ID [id number] Invalid Interpretation Code [facility] POC Subsection POC Username DEBRA GOMEZ Invalid Interpretation Code [facility] POC Subsection Glucose [Mass/Vol] 152 mg/dL High 55 - 99 mg/dL [facility] C POC Subsection Comment on above: Result Comment: Georgette palacios RN/ POC Device SN [id number] Invalid Interpretation Code [facility] POC Subsection POC User ID [id number] Invalid Interpretation Code [facility] POC Subsection POC Username DEBRA GOMEZ Invalid Interpretation Code [facility] POC Subsection CHEMISTRYOrdered By: SYSTEM SYSTEM on 02-19-2023 Anion gap [Moles/Vol] 10 mmol/L Normal 6 - 16 mEq/L [facility] Remisol Calcium [Mass/Vol] 9.1 mg/dL Normal 8.9 - 11.1 mg/dL [facility] Remisol Chloride [Moles/Vol] 99 mmol/L Low 101 - 111 mmol/L [facility] Remisol CO2 [Moles/Vol] 32 mmol/L High 21 - 31 mmol/L [facility] Remisol Creatinine [Mass/Vol] 0.9 mg/dL Normal 0.5 - 1.3 mg/dL [facility] Remisol GFR/1.73 sq M.predicted among non-blacks MDRD (S/P/Bld) [Vol rate/Area] 89 mL/min/1.73 m2 Normal >=59mL/min/1.73 m2 [facility] Chem S Glucose [Mass/Vol] 148 mg/dL Normal 55 - 199 mg/dL [facility] Magnesium [Mass/Vol] 1.7 mg/dL Normal 1.3 - 2.4 mg/dL [facility] Potassium [Moles/Vol] 4.0 mmol/L Normal 3.5 - 5.3 mmol/L [facility] Remisol Sodium [Moles/Vol] 137 mmol/L Normal 135 - 145 mmol/L [facility] Remisol Urea nitrogen [Mass/Vol] 10 mg/dL Normal 5 - 21 mg/dL [facility] Urea nitrogen/Creatinine [Mass ratio] 11 mg/mg Normal 10 - 20 [facility] COAGULATIONOrdered By: Joana Heart on 02-19-2023 aPTT Coag (PPP) [Time] 70.2 s High 25.1 - 36.5 second(s) [facility] Auto Coag INR Coag (PPP) [Relative time] 1.0 {INR} Invalid Interpretation Code [facility] Auto Coag PT Coag (PPP) [Time] 11.3 s Normal 9.4 - 12.5 second(s) [facility] Auto Coag aPTT Coag (PPP) [Time] 74.4 s High 25.1 - 36.5 second(s) [facility] Auto Coag COAGULATIONOrdered By: Warren Collins on 02-19-2023 aPTT Coag (PPP) [Time] 77.6 s High 25.1 - 36.5 second(s) [facility] Auto Coag INR Coag (PPP) [Relative time] 1.1 {INR} Invalid Interpretation Code [facility] Auto Coag PT Coag (PPP) [Time] 12.5 s Normal 9.4 - 12.5 second(s) [facility] Auto Coag Capillary Glucose POCon 02-09 Glucose [Mass/Vol] 159 mg/dL High 55-99 [facility] Comment on above: Result Comment: Georgette LOPEZ Performed By: #### 2 [id number] ####[facility] [address] [place] [address] Glucose [Mass/Vol] 176 mg/dL High 55-99 [facility] Comment on above: Result Comment: Georgette LOPEZ Performed By: #### 2 [id number] ####[facility] [address] [place] [address] Glucose [Mass/Vol] 152 mg/dL High 55-99 [facility] Comment on above: Result Comment: Georgette LOPEZ Performed By: #### 2 [id number] ####[facility] [address] [place] [address] Discharge Note-Nursingon Discharge Note-Nursing Normal [address], [place] [address]- \.br\ New Follow Up Appointments after Discharge\.br\ Follow Up with [facility] When: 03/01/2023 01:00 PM EDT\.br\ Comments:\.br\ Your follow up appointment is with Dr. Lobo. Thank you.\.br\ Where:\.br\ [address]\ [place] [address]-\.br\ Business (1)\.br\ Follow Up with [facility] When: \.br\ Comments:\.br\ [facility] will contact you to set up a home visit. Thank you.\.br\ Follow Up with Ralph Jennings When: \.br\ Comments:\.br\ Chronic Venous Insuf\.br\ Please call Kike at Dr. Jennings's office in [place] to make a follow up appointment. The phone number is [phone]. Thank you.\.br\ Where:\.br\ [address]br\ [place] [address]-\.br\ Business (1)\.br\ Follow Up with Matty Murillo When: \.br\ Comments:\.br\ needs PFTs and sleep study\.br\ The central scheduling department at [facility] will need to schedule the PFT's. Please contact Dr. Murillo's offic eto set up a time for your sleep study. 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 Amaro office will contact you to set up an appointment. If you do not hear from them in 3 days, then call [phone] and asked for Oncology/ Hematology department. Thank you.\.br\ [facility].br\ [facility] [facility]\.br\ [address].br\ [place] [address]-\.br\ Medications\.br\ What How Much When Why Instructions Next Dose\.br\ New apixaban (Eliquis 5 mg oral tablet) 2 tabs (10 mg) BID x 7 days then 1 tab bid By Mouth 2 times a day initial fill only Pickup at [facility]/pharmacy #[id number] 02/19 @ 9 PM \.br\ New methocarbamol (Robaxin 500 mg Tab) 2 Tablets By Mouth 4 times a day Duration: 14 Days Pickup at [facility]/pharmacy #[id number] 02/19 @ 9 [...] Unchanged fluticasone nasal (Flonase 0.05 mg/ inh Harmon) 2 Sprays Nasal Inhalation Every day Allergic [...] NEEDED, TAKE WHEN TAKING LASIX\.br\ Pharmacy Information\.br\ [facility]/pharmacy #[id number]: [address] [place], [place] [phone]\.br\ \.br\ What How Much When Comments\.br\ Stop [...] High serum protein level\.br\ HTN (hypertension)\.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\.br\ Numbness [...] pulmonary embolus\.br\ kidney stones\.br\ Left shoulder pain\.br\ prison (current) use of anticoagulants\.b r\ Lumbago\.br\ Lumbar [...] The following factors may make you more [facility] Echo Transthoracic Completeo n 02-19-2023 Echo Transthoracic Complete Normal [facility] Inpatient Clinical Summaryon 02-19-2023 Inpatient Clinical Summary Normal [facility] Inpatient Patient Summaryon 02-19-2023 Inpatient Patient Summary Normal [facility] Interdisciplinary Note - J Carlos e Manageron 02-19-2023 Interdisciplinary Note - Graphic Design Professor Normal [facility] Comment on above: Result Comment: Elec tronically Signed By: Gladis Finney RN\.br\Date and Time Signed: 02/19/23 13:20 EDT Magnesiumon 02-19-2023 Magnesium [Mass/Vol] 1.7 mg/dL Normal 1.3-2.4 [facility] Comment on above: Performed By: #### 2 722343, [id number], [id number] ####[facility] [address] [place] [address] Message from Medicareon 02-09 Message from Medicare [id number]#[id number] CD:127 Normal [facility] PTon 07-11-2023 INR Coag (PPP) [Relative time] 1.0 {INR} Invalid Interpretation Code [facility] Comment on above: Result Comment: INR results are specifically intended to assess patients stabilized on long-term Anticoagulation therapy suggested INR?s ?Less Intensive Anticoagulation? 2.0 ? 3.0Conventional Range 3.0 ? 4.5 Performed By: #### 2 819176, [id number] ####[facility] [address] [place] [address] PT Coag (PPP) [Time] 11.3 second(s) Normal 9.4-12.5 [facility] Comment on above: Result Comment: 15 d [...] the same coagulation reagent and instrumentation as [facility]. Currently there are no coagulation studies available worldwide for children to 14 days, and no normal ranges. Performed By: #### 2 049483, [id number] ####[facility] [address] [place] [address] PT & PTTon 02-19-2023 aPTT Coag (PPP) [Time] 77.6 second(s) High 25.1-36.5 [facility] Comment on above: Result Comment: Para meter [...] the same coagulation reagent and instrumentation as [facility]. Currently there are no coagulation studies available worldwide for children to 14 days, and no normal ranges. Heparin therapeutic range (represented by Anti-Factor Xa activity of 0.2 - 0.4 U/mL) corresponds to PTT of 56.6 - 109.0 sec. Performed By: #### 1 [id number] ####[facility] [address] [place] [address] INR Coag (PPP) [Relative time] 1.1 {INR} Invalid Interpretation Code [facility] Comment on above: Result Comment: INR results are specifically intended to assess patients stabilized on long-term Anticoagulation therapy suggested INR?s ?Less Intensive Anticoagulation? 2.0 ? 3.0Conventional Range 3.0 ? 4.5 Performed By: #### 1 [id number] ####[facility] [address] [facility] [address] PT Coag (PPP) [Time] 12.5 second(s) Normal 9.4-12.5 [facility] Comment on above: Result Comment: 15 d [...] the same coagulation reagent and instrumentation as [facility]. Currently there are no coagulation studies available worldwide for children to 14 days, and no normal ranges. Performed By: #### 1 [id number] ####[facility] [address] [place] [address] PTTon 02-19-2023 aPTT Coag (PPP) [Time] 70.2 second(s) High 25.1-36.5 [facility] Comment on above: Result Comment: Para meter [...] the same coagulation reagent and instrumentation as [facility]. Currently there are no coagulation studies available worldwide for children to 14 days, and no normal ranges. Heparin therapeutic range (represented by Anti-Factor Xa activity of 0.2 - 0.4 U/mL) corresponds to PTT of 56.6 - 109.0 sec. Performed By: #### 2 594364, 6067402 ####[facility] [address] [place] [address] aPTT Coag (PPP) [Time] 74.4 second(s) High 25.1-36.5 [facility] Comment on above: Result Comment: Para meter [...] the same coagulation reagent and instrumentation as [facility]. Currently there are no coagulation studies available worldwide for children to 14 days, and no normal ranges. Heparin therapeutic range (represented by Anti-Factor Xa activity of 0.2 - 0.4 U/mL) corresponds to PTT of 56.6 - 109.0 sec. Performed By: #### 2 798534 ####[facility] [address] [place] [address] Patient Education - Texton 0 02-19-2023 Patient Education - Text Normal [facility] eGFRon 02-19-2023 GFR/1.73 sq M.predicted among non-blacks MDRD (S/P/Bld) [Vol rate/Area] 89 mL/min/1.73 m2 Normal >=59 [facility] Comment on above: Order Comment: Order added by Discern Expert. Result Comment: Certified Driver Examiner cristo kidney disease could be indicated at eGFR's of less than 60 mL/min/1.73m2. Kidney failure is indicated at less than 15 mL/min/1.73m2. Performed By: #### 2 223600, [id number], 3195761 ####[facility] [address] [place] [address] Ambulatory Visit Summaryon 0 02-18-2023 Ambulatory Visit Summary Normal [facility] Auto DiffOrdered By: SYSTEM SYSTEM on 02-18-2023 Basophils/100 WBC (Bld) 0.7 % Normal 0.0-2.0 [facility] Comment on above: Order Comment: Order Added by Discern Expert. Performed By: #### 2 434477, 1083644, 25740913, 37633401, 7469476, 66890728, 13842296, 2991470 ####[facility] [address] [place] [address] Basophils/Leukocyte s Auto (Bld) [Pure # fraction] 0.0 E9/L Normal 0.0-0.2 [facility] Comment on above: Order Comment: Order Added by Discern Expert. Performed By: #### 2 954564, 4145590, 76106281, 86958864, 6685377, 26149822, 78011227, 9127770 ####[facility] [address] [place] [address] Eosinophils/100 WBC (Bld) 1.7 % Normal 0.0-8.0 [facility] Comment on above: Order Comment: Order Added by Discern Expert. Performed By: #### 2 168205, 3723994, 91336867, 07235840, 2734362, 10327319, 47464791, 2883961 ####[place] [address] [address] Eosinophils/Leukocy cam[place] Auto (Bld) [Pure # fraction] 0.1 E9/L Normal 0.0-0.5 [facility] Comment on above: Order Comment: Order Added by Discern Expert. Performed By: #### 2 932693, 3042878, 93429112, 32116564, 2943553, 67257343, 24859189, 1704971 ####[address] [address] Lymphocytes/100 WBC (Bld) 20.6 % Normal 14.0-50.0 [facility] Comment on above: Order Comment: Order Added by Discern Expert. Performed By: #### 2 189445, 6820071, 65417835, 56616064, 0507826, 01731561, 24099168, 8622121 ####[address] [address] Lymphocytes/Leukocy [place] Auto (Bld) [Pure # fraction] 1.5 E9/L Normal 1.0-4.0 [facility] Comment on above: Order Comment: Order Added by Discern Expert. Performed By: #### 2 955658, 2091163, 97834196, 93541740, 1854035, 58233382, 88872164, 6238148 ####[address] [address] Monocytes/100 WBC (Bld) 7.5 % Normal 4.0-14.0 [facility] Comment on above: Order Comment: Order Added by Rudi Expert. Performed By: #### 2 043196, 2685761, 99633521, 93967312, 3020160, 53422882, 13277860, 4513159 ####[address] [address] Monocytes/Leukocyte s Auto (Bld) [Pure # fraction] 0.6 E9/L Normal 0.2-1.0 [facility] Comment on above: Order Comment: Order Added by Discern Expert. Performed By: #### 2 267977, 4880028, 95922175, 78573234, 6624188, 94937977, 58501734, 2563236 ####[address] [place] [address] Neutrophils/100 WBC (Bld) 69.5 % Normal 36.0-75.0 [facility] Comment on above: Order Comment: Order Added by Discern Expert. Performed By: #### 2 411883, 2934811, 25629624, 35785266, 1723280, 77541222, 02856203, 1766486 ####[address] [address] Neutrophils/Leukocy [place] Auto (Bld) [Pure # fraction] 5.2 E9/L Normal 2.0-7.5 [facility] Comment on above: Order Comment: Order Added by Discern Expert. Performed By: #### 2 789661, 8446331, 61235223, 94426281, 4223195, 04158878, 05474748, 1901012 ####[address] [address] BMPOrdered By: SYSTEM SYSTEM on 02-18-2023 Creatinine [Mass/Vol] 0.9 mg/dL Normal 0.5-1.3 [facility] Comment on above: Performed By: #### 2 475433, 3722803, 70189163, 78068436, 2689191, 15600977, 16129580, 4532279 ####[address] [place] [address] Urea nitrogen [Mass/Vol] 14 mg/dL Normal 5-21 [facility] Comment on above: Performed By: #### 2 566896, 3459248, 71295191, 03543637, 1894329, 12975137, 39253113, 2263479 ####[facility] [address] [place] [address] Anion gap [Moles/Vol] 13 mmol/L Normal 6-16 [facility] Comment on above: Performed By: #### 2 254335, 8541492, 27315501, 56009575, 6325388, 06403264, 66625522, 7173587 ####[facility] [address] [place] [address] Calcium [Mass/Vol] 9.0 mg/dL Normal 8.9-11.1 [facility] Comment on above: Performed By: #### 2 479837, 9147266, 06192643, 71034064, 0605169, 36838624, 21062588, 4530566 ####[address] [place] [address] Chloride [Moles/Vol] 98 mmol/L Low 101-111 [facility] Comment on above: Performed By: #### 2 658667, 4748143, 76693020, 00314085, 2371951, 50418569, 69371363, 5713432 ####[facility] [address] [place] [address] CO2 [Moles/Vol] 27 mmol/L Normal 21-31 [facility] Comment on above: Performed By: #### 2 988527, 3189479, 03545952, 45261549, 9998427, 08382358, 00852835, 5419866 ####[facility] [address] [place] [address] Glucose [Mass/Vol] 155 mg/dL Normal 55-199 [facility] Comment on above: Result Comment: If t his glucose result represents a fasting glucose, interpretation should refer to the following reference range: 55-99 mg/dL Performed By: #### 2 057780, 7415060, 69506099, 19023385, 9860474, 88690168, 37497746, 5062938 ####[facility] [address] [place] [address] Potassium [Moles/Vol] 3.7 mmol/L Normal 3.5-5.3 [facility] Comment on above: Performed By: #### 2 867493, 4402371, 63713155, 80289650, 6841202, 52701069, 26508138, 0842968 ####[facility] [address] [place] [address] Sodium [Moles/Vol] 134 mmol/L Low 135-145 [facility] Comment on above: Performed By: #### 2 845852, 1115156, 85937312, 67596214, 8209551, 19409257, 93466630, 2400303 ####[facility] [address] [place] [address] BMPon 02-18-2023 Urea nitrogen/Creatinine [Mass ratio] 16 No Units Normal 10-20 [facility] Comment on above: Performed By: #### 2 397572, 3931668, 63066692, 98371074, 6997498, 71604885, 84052775, 0500137 ####[address] [address] BNPon 02-18-2023 Int Ctr BNP Pass Normal [facility] Comment on above: Performed By: #### 2 420307, 2905495, 49534532, 28064440, 7924573, 58892342, 74155964, 9277158 ####[facility] [address] [place] [address] BNPOrdered By: Gonzales up on 02-18-2023 Natriuretic peptide B (Bld) [Mass/Vol] 21 pg/mL Normal 5-80 [facility] Comment on above: Performed By: #### 2 580825, 9035295, 30358900, 87454085, 2544459, 55216223, 41589918, 2076783 ####[address] [place] [address] CBC w/ Auto DiffOrdered By: Rafia Caballero on 02-18-2023 Erythrocyte distribution width (RBC) [Ratio] 14.8 % High 10.9-14.2 [facility] Comment on above: Performed By: #### 2 735570, 4052685, 48099839, 70618872, 2617228, 55892753, 24330755, 9101658 ####[facility] [address] [place] [address] Hematocrit (Bld) [Volume fraction] 42.8 % Normal 37.7-49.0 [facility] Comment on above: Performed By: #### 2 671363, 6050345, 22916508, 88142025, 4525595, 53331654, 83483699, 2432019 ####[address] [address] Hemoglobin (Bld) [Mass/Vol] 14.5 g/dL Normal 13.5-17.5 [facility] Comment on above: Performed By: #### 2 824484, 2738136, 52253092, 29904135, 9101284, 72329643, 54246444, 2048630 ####[address] [address] MCH (RBC) [Entitic mass] 31.3 pg Normal 27.0-34.0 [facility] Comment on above: Performed By: #### 2 631687, 9458306, 17999138, 66516246, 1134756, 73794317, 91806608, 3048554 ####[address] [place] [address] MCHC (RBC) [Mass/Vol] 33.9 g/dL Normal 31.4-36.0 [facility] Comment on above: Performed By: #### 2 452394, 9795107, 81322055, 90987539, 7511548, 78878235, 67031184, 0778247 ####[address] [address] MCV (RBC) [Entitic vol] 92.4 fL Normal 80.0-100.0 [facility] Comment on above: Performed By: #### 2 929309, 7785258, 44426273, 00007516, 6655935, 51384774, 79622800, 8008540 ####[facility] [address] [place] [address] Platelet mean volume (Bld) [Entitic vol] 8.2 fL Normal 6.4-10.8 [facility] Comment on above: Performed By: #### 2 409962, 1496519, 29484998, 43343739, 7427448, 30898641, 43450429, 1525397 ####[place] [address] [place] [address] Platelets (Bld) [#/Vol] 167.0 E9/L Normal 150.0-500.0 [facility] Comment on above: Performed By: #### 2 436744, 6810287, 53574923, 65176310, 6849364, 90163769, 75303385, 2059270 ####[facility] [address] [address] RBC (Bld) [#/Vol] 4.6 E12/L Normal 4.3-5.9 [facility] Comment on above: Performed By: #### 2 101334, 0125340, 56853118, 53529652, 3127376, 29010009, 88346004, 6654732 ####[place] [address] [place] [address] WBC corrected for nucl RBC Auto (Bld) [#/Vol] 7.5 E9/L Normal 4.0-11.0 [facility] Comment on above: Performed By: #### 2 221627, 3064663, 64388054, 12740530, 2997040, 84251604, 74879050, 3101561 ####[place] [address] [address] CHEMISTRYOrdered By: SYSTEM SYSTEM on 02-18-2023 Troponin I.cardiac [Mass/Vol] 13.30 pg/mL Low 15.90 - 38.40 pg/mL [facility] Troponin I.cardiac [Mass/Vol] 12.90 pg/mL Low 15.90 - 38.40 pg/mL [facility] Troponin I.cardiac [Mass/Vol] 13.60 pg/mL Low 15.90 - 38.40 pg/mL [facility] Urea nitrogen/Creatinine [Mass ratio] 16 mg/mg Normal - [facility] COAGULATIONOrdered By: Nani on Fernando on 02-18-2023 PT Coag (PPP) [Time] 11.2 s Normal 9.4 - 12.5 second(s) [facility] Auto Coag CTA Cheston 02-18-2023 CTA Chest Normal [facility] Capillary Glucose POCon 02-09 Glucose [Mass/Vol] 173 mg/dL High 55-99 [facility] Comment on above: Result Comment: Ashley kati Meter Performed By: #### 2 [id number] ####[facility] [address] [place] [address] Glucose [Mass/Vol] 131 mg/dL High 55-99 [facility] Comment on above: Result Comment: Georgette palacios RN/MD Performed By: #### 2 42658970 ####[facility] [address] [place] [address] Consent for Treatmenton 02-09 Consent for Treatment [id number] D:127 Normal [facility] ED Clinical Summaryon 2022 ED Clinical Summary Normal [facility] ED Note-Physicianon 02-19-20 23 ED Note-Physician Normal [facility] Comment on above: Result Comment: Elec tronically Signed By: Arturo Alvarez M.D..nancy\Date and Time Signed: 02/18/23 12:50 EDT ED Patient Education Noteon 02-18-2023 ED Patient Education Note Normal [facility] ED Patient Summaryon 023 ED Patient Summary Normal [facility] Family Medicine Office/Clini c Noteon 02-18-2023 Family Medicine Office/Clinic Note Normal [facility] Comment on above: Result Comment: Elec tronically Signed By: Mt GOODEN DO, FAAFP\Date and Time Signed: 02/18/23 08:47 EDT fintonic Education Videoon fintonic Education Video Yes Patient Avoiding Infections in the Hospital Normal [facility] Interdisciplinary Note - Raulito singon 02-18-2023 Interdisciplinary Note - Nursing Received wound consult, upon assessment no open areas noted. Patient and stated at times legs will weep. Order put in; May use ABD and Kerlex if legs begin to weep. Normal [facility] MagnesiumOrdered By: SYSTEM SYSTEM on 02-18-2023 Magnesium [Mass/Vol] 1.5 mg/dL Normal 1.3-2.4 [facility] Comment on above: Performed By: #### 2 305970, 8748825, 53882392, 93118116, 1549286, 31137766, 73342028, 4116638 ####[facility] [address] [place] [address] Monitor Recordon 02-18-2023 Monitor Record [id number] CD:127 Normal [facility] Monitor Record [id number] CD:127 Normal [facility] Monitor Record [id number] CD:127 Normal [facility] No Panel InformationOrdered By: ANGPROCESSSERVER MICROBIOLOGY on 02-18-2023 Blood Culture Charcoal No growth at 1 day. Final to follow at 7 days. [facility] PT & PTTon 02-18-2023 aPTT Coag (PPP) [Time] 29.6 second(s) Normal 25.1-36.5 [facility] Comment on above: Result Comment: Para meter 15 days - 4 weeks 1 - 5 months 6 - 11 months 1 - 5 years 6 - 10 years 11 - 17 years PTT Mean: 35.4 (27.6-45.6) Mean: 33.5 (24.8-40.7) Mean: 32.4 (25.1-40.7) Mean: 31.6 (24.0-39.2) Mean: 31.6 (26.9-38.7) Mean: 31.0 (24.6-38.4) Pediatric Reference ranges were obtained from a study by manolo Sahu alJase prepared from 1437 samples obtained at 7 different centers using the same coagulation reagent and instrumentation as [facility]. Currently there are no coagulation studies available worldwide for children to 14 days, and no normal ranges. Heparin therapeutic range (represented by Anti-Factor Xa activity of 0.2 - 0.4 U/mL) corresponds to PTT of 56.6 - 109.0 sec. Performed By: #### 2 068666, 9971684, 50574133, 15044680, 3485193, 68708916, 95098538, 3564389 ####[facility] [address] [place] [address] PT Coag (PPP) [Time] 11.2 second(s) Normal 9.4-12.5 [facility] Comment on above: Result Comment: 15 d [...] the same coagulation reagent and instrumentation as [facility]. Currently there are no coagulation studies available worldwide for children to 14 days, and no normal ranges. Performed By: #### 2 033433, 4903688, 85351634, 59144564, 4110490, 38221194, 10221630, 4883083 ####[facility] [address] [place] [address] PT & PTTOrdered By: Catalina King on 02-18-2023 INR Coag (PPP) [Relative time] 1.0 {INR} Invalid Interpretation Code [facility] Comment on above: Result Comment: INR results are specifically intended to assess patients stabilized on long-term Anticoagulation therapy suggested INR?s ?Less Intensive Anticoagulation? 2.0 ? 3.0Conventional Range 3.0 ? 4.5 Performed By: #### 2 413987, 6152642, 12862724, 98019661, 6021679, 65722338, 98651445, 3818898 ####[facility] [address] [place] [address] PTTon 02-18-2023 aPTT Coag (PPP) [Time] 98.5 second(s) Abnormal 25.1-36.5 [facility] Comment on above: Result Comment: Resu lts [...] the same coagulation reagent and instrumentation as [facility]. Currently there are no coagulation studies available worldwide for children to 14 days, and no normal ranges. Heparin therapeutic range (represented by Anti-Factor Xa activity of 0.2 - 0.4 U/mL) corresponds to PTT of 56.6 - 109.0 sec. Performed By: #### 2 366466 ####[facility] [address] [place] [address] Patient Educationon 02-19-20 23 Patient Education Normal [facility] Pre-Arrival Noteon 3 Pre-Arrival Note Normal [facility] Troponin 0 Hr.on 02-18-2023 Troponin I.cardiac [Mass/Vol] 12.00 pg/mL Low 15.90-38.40 [facility] Comment on above: Result Comment: The 95% CI (Confidence Interval) PPV (Positive Predictive Value) for myocardial infarction in females is 38 pg/mL, in males 51 pg/mL. The results should be used in conjunction with clinical conditions of myocardial infarction.(Access High Sensitivity Troponin I Instructions For Use, [employer], March 2018) Performed By: #### 2 739799, 0769597, 58799816, 33130870, 9939603, 07950031, 64309362, 8519370 ####[facility] [address] [place] [address] Troponin 3 Hr.on 02-18-2023 Troponin I.cardiac [Mass/Vol] 13.60 pg/mL Low 15.90-38.40 [facility] Comment on above: Result Comment: The 95% CI (Confidence Interval) PPV (Positive Predictive Value) for myocardial infarction in females is 38 pg/mL, in males 51 pg/mL. The results should be used in conjunction with clinical conditions of myocardial infarction.(Access High Sensitivity Troponin I Instructions For Use, [employer], March 2018) Performed By: #### 1 0304213 ####[facility] [address] [place] [address] Troponin 6 Hr.on 02-18-2023 Troponin I.cardiac [Mass/Vol] 12.90 pg/mL Low 15.90-38.40 [facility] Comment on above: Result Comment: The 95% CI (Confidence Interval) PPV (Positive Predictive Value) for myocardial infarction in females is 38 pg/mL, in males 51 pg/mL. The results should be used in conjunction with clinical conditions of myocardial infarction.(Access High Sensitivity Troponin I Instructions For Use, [employer] 2018) Performed By: #### 1 [id number] ####[facility] [address] [place] [address] Troponin 9 Hr.on 07-10-2023 Troponin I.cardiac [Mass/Vol] 13.30 pg/mL Low 15.90-38.40 [facility] Comment on above: Result Comment: The 95% CI (Confidence Interval) PPV (Positive Predictive Value) for myocardial infarction in females is 38 pg/mL, in males 51 pg/mL. The results should be used in conjunction with clinical conditions of myocardial infarction.(Access High Sensitivity Troponin I Instructions For Use, [employer] [place], March 2018) Performed By: #### 1 3369540 ####[facility] [address] [place] [address] US LE Venous Duplex Bilatera allison 02-18-2023 US LE Venous Duplex Bilateral Normal [facility] XR Abdomen 1 Viewon 02-19-20 23 XR Abdomen 1 View Normal [facility] XR Chest Single Viewon 02-18 XR Chest Single View Normal [facility] eGFROrdered By: SYSTEM [employer] on 02-18-2023 GFR/1.73 sq M.predicted among non-blacks MDRD (S/P/Bld) [Vol rate/Area] 89 mL/min/1.73 m2 Normal >=59 [facility] Chem S Comment on above: Order Comment: Order added by Discern Expert. Result Comment: Certified Driver Examiner cristo kidney disease could be indicated at eGFR's of less than 60 mL/min/1.73m2. Kidney failure is indicated at less than 15 mL/min/1.73m2. Performed By: #### 2 247579, 0364883, 04710888, 50965345, 5872842, 76630103, 07161379, 6771350 ####[facility] [address] [place] [address] Auto Diffon 02-15-2023 Basophils/100 WBC (Bld) 1.0 % Normal 0.0-2.0 [facility] Comment on above: Order Comment: Order Added by Discern Expert. Performed By: #### 2 205073, 1911320, 1143623 ####[facility] [address] [place] [address] Basophils/Leukocyte s Auto (Bld) [Pure # fraction] 0.1 E9/L Normal 0.0-0.2 [facility] Comment on above: Order Comment: Order Added by Discern Expert. Performed By: #### 2 208578, 8358662, 3901030 ####[facility] [address] [place] [address] Eosinophils/100 WBC (Bld) 2.1 % Normal 0.0-8.0 [facility] Comment on above: Order Comment: Order Added by Discern Expert. Performed By: #### 2 501421, 1960663, 4655358 ####[address] [address] Eosinophils/Leukocy camden Auto (Bld) [Pure # fraction] 0.2 E9/L Normal 0.0-0.5 [facility] Comment on above: Order Comment: Order Added by Rudi Expert. Performed By: #### 2 552824, 4169810, 2697408 ####[address] [address] Lymphocytes/100 WBC (Bld) 23.5 % Normal 14.0-50.0 [facility] Comment on above: Order Comment: Order Added by Rudi Expert. Performed By: #### 2 581163, 8465296, 7119400 ####[address] [address] Lymphocytes/Leukocy camden Auto (Bld) [Pure # fraction] 1.9 E9/L Normal 1.0-4.0 [facility] Comment on above: Order Comment: Order Added by Rudi Expert. Performed By: #### 2 515225, 5516361, 0880601 ####[address] [address] Monocytes/100 WBC (Bld) 7.5 % Normal 4.0-14.0 [facility] Comment on above: Order Comment: Order Added by Rudi Expert. Performed By: #### 2 780953, 3645261, 1773326 ####[address] [address] Monocytes/Leukocyte s Auto (Bld) [Pure # fraction] 0.6 E9/L Normal 0.2-1.0 [facility] Comment on above: Order Comment: Order Added by Discern Expert. Performed By: #### 2 220400, 8363396, 0739425 ####[address] [place] [address] Neutrophils/100 WBC (Bld) 65.9 % Normal 36.0-75.0 [facility] Comment on above: Order Comment: Order Added by Discern Expert. Performed By: #### 2 158953, 6707170, 6491785 ####[address] [address] Neutrophils/Leukocy camden Auto (Bld) [Pure # fraction] 5.2 E9/L Normal 2.0-7.5 [facility] Comment on above: Order Comment: Order Added by Discern Expert. Performed By: #### 2 602862, 2032857, 7106056 ####[address] [address] CBC w/ Auto Diffon 3 Erythrocyte distribution width (RBC) [Ratio] 15.1 % High 10.9-14.2 [facility] Comment on above: Performed By: #### 2 132459, 0557897, 4924342 ####[address] [address] Hematocrit (Bld) [Volume fraction] 44.1 % Normal 37.7-49.0 [facility] Comment on above: Performed By: #### 2 067646, 4102740, 9539844 ####[address] [address] Hemoglobin (Bld) [Mass/Vol] 14.7 g/dL Normal 13.5-17.5 [facility] Comment on above: Performed By: #### 2 194743, 6411050, 0761530 ####[address] [place] [address] MCH (RBC) [Entitic mass] 30.8 pg Normal 27.0-34.0 [facility] Comment on above: Performed By: #### 2 667333, 0710445, 4325805 ####[address] [address] MCHC (RBC) [Mass/Vol] 33.2 g/dL Normal 31.4-36.0 [facility] Comment on above: Performed By: #### 2 527981, 3464360, 9150448 ####[address] MCV (RBC) [Entitic vol] 92.7 fL Normal 80.0-100.0 [facility] Comment on above: Performed By: #### 2 622479, 3281217, 9721150 ####[address] [place] Platelet mean volume (Bld) [Entitic vol] 8.3 fL Normal 6.4-10.8 [facility] Comment on above: Performed By: #### 2 649566, 8357936, 8173464 ####[address] Platelets (Bld) [#/Vol] 177.0 E9/L Normal 150.0-500.0 [facility] Comment on above: Performed By: #### 2 615243, 2947180, 1534248 ####[place] [address] RBC (Bld) [#/Vol] 4.8 E12/L Normal 4.3-5.9 [facility] Comment on above: Performed By: #### 2 236524, 2914135, 5857572 ####[address] [address] WBC corrected for nucl RBC Auto (Bld) [#/Vol] 8.0 E9/L Normal 4.0-11.0 [facility] Comment on above: Performed By: #### 2 424793, 6325828, 9135622 ####[address] [address] CHEMISTRYOrdered By: SYSTEM SYSTEM on 02-15-2023 Albumin [...] g/dL High 6.0 - 7.8 gm/dL F [facility] Remisol CHEMISTRYOrdered By: Gonzales William on 02-15-2023 HbA1c (Bld) [Mass fraction] 6.8 % High <=5.9% FT ChemAutoSS Consent for Treatmenton Consent for Treatment [id number] D:127 Normal [facility] HEMATOLOGYOrdered By: SYSTEM SYSTEM on 02-15-2023 Basophils/100 [...] 177.0 E9/L Normal 150.0 - 500.0 E9/L [facility] HemeAutoSS RBC (Bld) [#/Vol] 4.8 E12/L Normal 4.3 - 5.9 E12/L [facility] HemeAutoSS WBC corrected for nucl RBC Auto (Bld) [#/Vol] 8.0 E9/L Normal 4.0 - 11.0 E9/L [facility] HemeAutoSS Hep Func Panelon 02-15-2023 Albumin [Mass/Vol] 3.9 g/dL Normal 3.3-5.0 [facility] Comment on above: Performed By: #### 2 509784, 8206422, 7807111 ####[facility] [address] [place] [address] Albumin/Globulin (S) [Mass conc ratio] 1.0 Low 1.1-2.2 [facility] Comment on above: Performed By: #### 2 398852, 4342218, 1234053 ####[facility] [address] [place] [address] ALP [Catalytic activity/Vol] 66 Int._Unit/L Normal 21-98 [facility] Comment on above: Performed By: #### 2 893125, 9590947, 8478647 ####[facility] [address] [place] [address] ALT No additional P-5'-P [Catalytic activity/Vol] 32 Int._Unit/L Normal 6-46 [facility] Comment on above: Performed By: #### 2 709911, 0555798, 9395668 ####[facility] [address] [place] [address] AST [Catalytic activity/Vol] 36 Int._Unit/L Normal 5-43 [facility] Comment on above: Performed By: #### 2 282484, 9459070, 8737068 ####[facility] [address] [place] [address] Bilirubin [Mass/Vol] 0.6 mg/dL Normal 0.0-1.1 [facility] Comment on above: Performed By: #### 2 926637, 8310362, 0655618 ####[facility] [address] [place] [address] Bilirubin.direct [Mass/Vol] 0.1 mg/dL Normal 0.1-0.4 [facility] Comment on above: Performed By: #### 2 141014, 8666359, 0168286 ####[address] [address] Bilirubin.indirect [Mass or moles/Vol] 0.5 mg/dL Normal 0.1-0.9 [facility] Comment on above: Performed By: #### 2 342032, 5637035, 7147028 ####[address] [address] Globulin (S) [Mass/Vol] 4.0 g/dL Normal 1.4-4.0 [facility] Comment on above: Performed By: #### 2 563814, 9621539, 8764790 ####[address] [address] Protein [Mass/Vol] 7.9 g/dL High 6.0-7.8 [facility] Comment on above: Performed By: #### 2 616840, 2093524, 0992364 ####[address] [address] EvhP7rve 02-15-2023 HbA1c (Bld) [Mass fraction] 6.8 % High <=5.9 [facility] Comment on above: Performed By: #### 7 [id number] ####[address] [address] CNPShireen 2023 [place] Telephone (RHEUMN) JAS GONZALEZ ([id number]) 1950 M DEF Date Time Provider Department [...] Status:Closed by JUMA MONK on 01/28/23 Normal [facility] CRP SerPl-Guyon 01-25-2023 CRP [Mass/Vol] 0.7 mg/dL Normal <0.9 [facility] Comment on above: Order Comment: Speci men Type: BLOOD SPECIMENOrdering Facility: [facility] Address: [address] [id number] Performed By: #### 1 988-5 ####[facility] [id number] [address] [place] ESR Westergren method (Bld) [Velocity]on 01-25-2023 ESR (Bld) [Velocity] 24 mm/h High 0-15 [facility] Comment on above: Order Comment: Speci men Type: BLOOD SPECIMENOrdering Facility: [facility] Address: [address] [id number] Performed By: #### 4 537-7 ####[facility] [id number] [address] [place] MRI SACRUM/COCCYX WO IVCONon 01-25-2023 MRI SACRUM/COCCYX WO IVCON * * *Final Report* * * DATE OF EXAM: Jan 25 2023 8:15AM LNM 0235 - MRI SACRUM/COCCYX WO IVCON / [...] fat suppression and field inhomogeneity, and diminished fsjqlz-lj-dlpsp ratio. SACROILIAC JOINTS: Apparent mild partial ankylosis [...] cyst. Marked lower lumbar spine degenerative changes. Home Lending Officer: [facility] Transcribe Date/Time: Jan 25 2023 11:15A Dictated by : GAGE BLUM MD This examination was interpreted and the report reviewed and electronically signed by: GAGE BLUM MD on Jan 25 2023 12:05PM EST [id number] Normal [facility] Consent for Procedure/Surger yon 01-24-2023 Consent for Procedure/Surgery [id number] CD:127 Normal [facility] Gastroenterology Office/Clin ic Noteon 01-24-2023 Gastroenterology Office/Clinic Note Normal [facility] Comment on above: Result Comment: Elec tronically Signed By: Zahra Barton\.br\Date and Time Signed: 01/23/23 12:42 EDT\.br\Electronically Co-Signed By: Joycelyn CHERRY MD\.br\Date and Time Co-Signed: 01/24/23 09:04 EDT Ambulatory Visit Summaryon 0 01-23-2023 Ambulatory Visit Summary Normal [address] [facility], [place] [address]- \.br\ Medications\.br\ What How Much When Why [...] Unchanged fluticasone nasal (Flonase 0.05 mg/ inh Harmon) 2 Sprays Nasal Inhalation Every day Allergic [...] with hiatal hernia\.br\ High serum protein level\.br\ 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\.br\ Numbness [...] pulmonary embolus\.br\ kidney stones\.br\ Left shoulder pain\.br\ 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\.b r\ Lumbago\.br\ Lumbar radiculopathy, chronic\.br\ Morbid obesity due to excess calories\.br\ Obesity\.br\ Pulmonary embolism on right\.br\ Rib pain on right side\.br\ Spasm of muscle of lower back\.br\ Vertigo, benign paroxysmal\.br\ \.br\ [facility] Physician Orderon 12-18-2022 Physician Order [id number]#1.00C D:127 Normal [facility] Physician Order [id number]#1.00C D:127 Normal [facility] ([id number]) 1950 M DEF Date Time Provider Department [...] elsewhere classified [M53.3] Order(s):MRI SACRUM/COCCYX WO IVCON [3568435] Order #: [id number] FUTURE C-REACTIVE PROTEIN (CRP) [SQCRP] Order #: [id number] FUTURE SED RATE WESTERGREN [SQWSR] Order #: [id number] FUTURE Prescriptions as of 12/17/2022 - aspirin [...] Status:Closed by JUMA MONK on 12/17/22 Normal [facility] Ambulatory Visit Summaryon 0 12-10-2022 Ambulatory Visit Summary Invalid Interpretation Code [address], [place] [address]- \.br\ Saturday 11:00 AM EST \.br\ With:\.br\ Where: [facility] Primary Care [facility] Family Medicine Office/Clini c Noteon 12-10-2022 Family Medicine Office/Clinic Note Normal [facility] Comment on above: Result Comment: Elec tronically Signed By: Mt GOODEN DO, FAAFP\.br\Date and Time Signed: 12/10/22 10:50 EDT Patient Educationon 12-11-19 Patient Education Normal [facility] Consultation Noteon 12-09-19 Consultation Note [id number] :127 Normal [facility] CNOVon 12-05-2022 CNOV Office Visit (KRYSTIN ) JAS GONZALEZ ([id number]) 1950 M DEF Date Time Provider Department 12/05/22 1:00 PM JUMA MONK During your visit today, we recorded the following information about you: Pulse Respiration Blood pressure Weight 83/minute 18/minute 118/74 154.2 kg Juma Monk MD 12/05/2022 1:29 PM Signed [facility] Date of Service: 12/05/2022 Patient: Jas Gonzalez Medical Record: [id number] Primary Care Physician: No primary care provider [...] Social Hist (more content not included)... Normal [facility] Coding Summary.on 12-05-2022 Coding Summary. 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 Home Lending Officer: PRANAY Transcribe Date/Time: Dec 06 2022 2:43P Dictated by : GAGE BLUM MD This examination was interpreted and the report reviewed and electronically signed by: GAGE BLUM MD on Dec 06 2022 2:46PM EST [id number] [facility] (KRYSTIN) JAS GONZALEZ ([id number]) 1950 M DEF Date Time Provider Department [...] Status:Closed by ANGIE LARA on 12/04/22 Normal [facility] ABO/Rhon 12-02-2022 ABO/Rh Positive Invalid Interpretation Code [facility] Comment on above: Performed By: #### 2 371908, 99599124, 84695905, 48056913 ####[facility] [address] [place] [address] ABO/Rh History Checkon 12-02 ABO/Rh History Check Patient discharged prior Normal [facility] Comment on above: Performed By: #### 2 311627, 46210713, 57409747, 08977549 ####[facility] [address] [place] [address] ABSCon 12-02-2022 ABSC Gel Interp Negative Normal [facility] Comment on above: Performed By: #### 2 845112, 28366227, 44189714, 79379705 ####[facility] [address] [place] [address] Auto Diffon 12-02-2022 Basophils/100 WBC (Bld) 0.6 % Normal 0.0-2.0 [facility] Comment on above: Order Comment: Order Added by Discern Expert. Performed By: #### 2 900409, 43829239, 3912068, 0009990, 73349946, 9402563 ####[address] [place] [address] Basophils/Leukocyte s Auto (Bld) [Pure # fraction] 0.0 E9/L Normal 0.0-0.2 [facility] Comment on above: Order Comment: Order Added by Discern Expert. Performed By: #### 2 369341, 02139374, 5680427, 3630212, 70205084, 2774614 ####[address] [address] Eosinophils/100 WBC (Bld) 1.9 % Normal 0.0-8.0 [facility] Comment on above: Order Comment: Order Added by Discern Expert. Performed By: #### 2 115627, 23617165, 8442993, 3734812, 32874206, 2978077 ####[address] [address] Eosinophils/Leukocy camden Auto (Bld) [Pure # fraction] 0.1 E9/L Normal 0.0-0.5 [facility] Comment on above: Order Comment: Order Added by Discern Expert. Performed By: #### 2 258909, 16779645, 7537027, 8866779, 51214631, 2271351 ####[address] [place] [address] Lymphocytes/100 WBC (Bld) 28.4 % Normal 14.0-50.0 [facility] Comment on above: Order Comment: Order Added by Rudi Expert. Performed By: #### 2 559051, 88101572, 7464231, 9371106, 84815420, 7148077 ####[address] [place] [address] Lymphocytes/Leukocy camden Auto (Bld) [Pure # fraction] 1.5 E9/L Normal 1.0-4.0 [facility] Comment on above: Order Comment: Order Added by Discern Expert. Performed By: #### 2 403994, 23918722, 4454432, 2108828, 11743405, 5427351 ####[address] [place] [address] Monocytes/100 WBC (Bld) 9.3 % Normal 4.0-14.0 [facility] Comment on above: Order Comment: Order Added by Rudi Expert. Performed By: #### 2 432573, 98101525, 8407700, 5508541, 12327946, 3969893 ####[address] [address] Monocytes/Leukocyte s Auto (Bld) [Pure # fraction] 0.5 E9/L Normal 0.2-1.0 [facility] Comment on above: Order Comment: Order Added by Rudi Expert. Performed By: #### 2 716925, 40602244, 4690237, 2583404, 71466686, 1941128 ####[address] [address] Neutrophils/100 WBC (Bld) 59.8 % Normal 36.0-75.0 [facility] Comment on above: Order Comment: Order Added by Rudi Expert. Performed By: #### 2 254002, 84071353, 9251537, 3410770, 68695411, 8989434 ####[address] [place] [address] Neutrophils/Leukocy camden Auto (Bld) [Pure # fraction] 3.1 E9/L Normal 2.0-7.5 [facility] Comment on above: Order Comment: Order Added by Discern Expert. Performed By: #### 2 099829, 49093343, 6359949, 9735696, 90239991, 8785186 ####[facility] [address] [place] [address] BLOOD BANKOrdered By: Keturah Bar on 12-02-2022 ABO/Rh Interp Positive Invalid Interpretation Code [facility] BB Subsection ABSC Gel Interp Negative (12/02/22 1:07 PM) Normal [facility] BB Subsection BMPon 12-02-2022 Creatinine [Mass/Vol] 0.9 mg/dL Normal 0.5-1.3 [facility] Comment on above: Performed By: #### 2 330790, 31041080, 3309530, 6508821, 27380844, 3189314 ####[facility] [address] [place] [address] Urea nitrogen [Mass/Vol] 14 mg/dL Normal 5-21 [facility] Comment on above: Performed By: #### 2 693792, 38720042, 4749641, 4909094, 25925664, 2399211 ####[facility] [address] [place] [address] Urea nitrogen/Creatinine [Mass ratio] 16 No Units Normal 10-20 [facility] Comment on above: Performed By: #### 2 132147, 17340535, 6121771, 3898228, 45241645, 8064375 ####[facility] [address] [place] [address] Anion gap [Moles/Vol] 10 mmol/L Normal 6-16 [facility] Comment on above: Performed By: #### 2 789569, 30383347, 8832653, 6623481, 53667717, 5732326 ####[facility] [address] [place] [address] Calcium [Mass/Vol] 8.9 mg/dL Normal 8.9-11.1 [facility] Comment on above: Performed By: #### 2 179618, 58930495, 7151585, 2136483, 72366786, 0792394 ####[facility] [address] [place] [address] Chloride [Moles/Vol] 98 mmol/L Low 101-111 [facility] Comment on above: Performed By: #### 2 927152, 77991461, 7729469, 2951563, 06301566, 0682035 ####[facility] [address] [place] [address] CO2 [Moles/Vol] 30 mmol/L Normal 21-31 [facility] Comment on above: Performed By: #### 2 914326, 30651019, 5875127, 4963813, 64670227, 3889348 ####[facility] [address] [place] [address] Glucose [Mass/Vol] 137 mg/dL Normal 55-199 [facility] Comment on above: Result Comment: If t his glucose result represents a fasting glucose, interpretation should refer to the following reference range: 55-99 mg/dL Performed By: #### 2 709908, 09258091, 1394381, 7770637, 47839404, 9489801 ####[facility] [address] [place] [address] Potassium [Moles/Vol] 3.6 mmol/L Normal 3.5-5.3 [facility] Comment on above: Performed By: #### 2 276428, 31747909, 2748891, 8339361, 31321457, 4362169 ####[facility] [address] [place] [address] Sodium [Moles/Vol] 134 mmol/L Low 135-145 [facility] Comment on above: Performed By: #### 2 853887, 69252543, 7430589, 4750624, 56503409, 9752501 ####[facility] [address] [place] [address] Blood Bank ID#on 12-02-2022 BBID# [id number] Invalid Interpretation Code [facility] Comment on above: Performed By: #### 2 864614, 66869685, 20278940, 52740953 ####[address] [place] [address] CBC w/ Auto Diffon 3 Erythrocyte distribution width (RBC) [Ratio] 13.9 % Normal 10.9-14.2 [facility] Comment on above: Performed By: #### 2 726476, 00727158, 2581632, 2325710, 49460918, 9867594 ####[address] [place] [address] Hematocrit (Bld) [Volume fraction] 44.1 % Normal 37.7-49.0 [facility] Comment on above: Performed By: #### 2 759526, 56632257, 6791279, 0627123, 64335764, 5784671 ####[address] [address] Hemoglobin (Bld) [Mass/Vol] 14.5 g/dL Normal 13.5-17.5 [facility] Comment on above: Performed By: #### 2 625763, 98026090, 7439636, 6003835, 80109697, 4744991 ####[address] [address] MCH (RBC) [Entitic mass] 30.7 pg Normal 27.0-34.0 [facility] Comment on above: Performed By: #### 2 905844, 03371083, 8660322, 6318096, 33334306, 2500999 ####[address] [place] [address] MCHC (RBC) [Mass/Vol] 32.9 g/dL Normal 31.4-36.0 [facility] Comment on above: Performed By: #### 2 331273, 96469332, 6169270, 8230922, 15342626, 7960252 ####[address] [place] [address] MCV (RBC) [Entitic vol] 93.1 fL Normal 80.0-100.0 [facility] Comment on above: Performed By: #### 2 281337, 40456329, 6532842, 8318886, 52597803, 4555904 ####[facility] [address] [place] [address] Platelet mean volume (Bld) [Entitic vol] 8.2 fL Normal 6.4-10.8 [facility] Comment on above: Performed By: #### 2 604142, 64636588, 5539845, 7205196, 69655958, 4794019 ####[facility] [address] [place] [address] Platelets (Bld) [#/Vol] 135.0 E9/L Low 150.0-500.0 [facility] Comment on above: Performed By: #### 2 092572, 57105689, 0762792, 6055279, 06231321, 9247163 ####[facility] [address] [place] [address] RBC (Bld) [#/Vol] 4.7 E12/L Normal 4.3-5.9 [facility] Comment on above: Performed By: #### 2 741719, 74876871, 9001495, 1426844, 83322773, 0643007 ####[facility] [address] [place] [address] WBC corrected for nucl RBC Auto (Bld) [#/Vol] 5.2 E9/L Normal 4.0-11.0 [facility] Comment on above: Performed By: #### 2 766410, 18393683, 6029958, 7557032, 00582125, 8289575 ####[facility] [address] [place] [address] CHEMISTRYOrdered By: SYSTEM SYSTEM on 12-02-2022 Albumin [Mass/Vol] 3.5 g/dL Normal 3.3 - [...] 8.9 mg/dL Normal 8.9 - 11.1 mg/dL FT Remisol Chloride [Moles/Vol] 98 mmol/L Low 101 - 111 mmol/L [facility] Remisol CO2 [Moles/Vol] 30 mmol/L Normal 21 - 31 mmol/L [facility] Creatinine [Mass/Vol] 0.9 mg/dL Normal 0.5 - 1.3 mg/dL [facility] GFR/1.73 sq M.predicted among blacks MDRD (S/P/Bld) [Vol rate/Area] mL/min/1.73 m2 Normal >=59mL/min/1.73 m2 [facility] Chem S GFR/1.73 sq M.predicted among non-blacks MDRD (S/P/Bld) [Vol rate/Area] mL/min/1.73 m2 Normal >=59mL/min/1.73 m2 [facility] Chem S Globulin (S) [Mass/Vol] 3.5 g/dL Normal 1.4 - 4.0 gm/dL [facility] Glucose [Mass/Vol] 137 mg/dL Normal 55 - 199 mg/dL [facility] Potassium [Moles/Vol] 3.6 mmol/L Normal 3.5 - 5.3 mmol/L [facility] Protein [Mass/Vol] 7.0 g/dL Normal 6.0 - 7.8 gm/dL F [facility] Remisol Sodium [Moles/Vol] 134 mmol/L Low 135 - 145 mmol/L [facility] Urea nitrogen [Mass/Vol] 14 mg/dL Normal 5 - 21 mg/dL [facility] Urea nitrogen/Creatinine [Mass ratio] 16 mg/mg Normal 10 - 20 [facility] COAGULATIONOrdered By: Brandie Sams on 12-02-2022 aPTT Coag (PPP) [Time] 32.2 s Normal 25.1 - 36.5 second(s) [facility] Auto Coag INR Coag (PPP) [Relative time] 1.1 {INR} Invalid Interpretation Code [facility] Auto Coag PT Coag (PPP) [Time] 11.8 s Normal 9.4 - 12.5 second(s) [facility] [facility] Auto Coag Consent for Treatmenton 11-11 Consent for Treatment [id number]#1.00C D:127 Normal [facility] Discharge Instructionson Discharge Instructions [id number]#1.00CD :127 Normal [facility] ED Clinical Summaryon 2022 ED Clinical Summary Normal [facility] ED Note-Physicianon 12-03-19 ED Note-Physician Normal [facility] Comment on above: Result Comment: Elec tronically Signed By: Severo Mcnair PA-C\.br\Date and Time Signed: 12/02/22 16:04 EDT\.br\Electronically Co-Signed By: Arturo Alvarez M.D.\.br\Date and Time Co-Signed: 12/02/22 18:18 EDT ED Patient Education Noteon 12-02-2022 ED Patient Education Note Normal [facility] ED Patient Summaryon 023 ED Patient Summary Normal [facility] HEMATOLOGYOrdered By: SYSTEM SYSTEM on 12-02-2022 Basophils/100 WBC (Bld) 0.6 % Normal 0.0 - 2.0 % [facility] HemeAutoSS Basophils/Leukocyte s Auto (Bld) [Pure # [...] 93.1 fL Normal 80.0 - 100.0 fL [facility] HemeAutoSS Platelet mean volume (Bld) [Entitic vol] 8.2 fL Normal 6.4 - 10.8 fL [facility] HemeAutoSS Platelets (Bld) [#/Vol] 135.0 E9/L Low 150.0 - 500.0 E9/L [facility] HemeAutoSS RBC (Bld) [#/Vol] 4.7 E12/L Normal 4.3 - 5.9 E12/L [facility] HemeAutoSS WBC corrected for nucl RBC Auto (Bld) [#/Vol] 5.2 E9/L Normal 4.0 - 11.0 E9/L [facility] HemeAutoSS Hep Func Panelon 12-02-2022 Bilirubin.indirect [Mass or moles/Vol] UTC Abnormal 0.1-0.9 [facility] Comment on above: Result Comment: Resu lt verified by Discern Rule. Performed result UT (Unable to Calculate) was sent as an Alpha code due the inability to calculate a valid numeric value. Performed By: #### 2 344359, 56256171, 6660960, 2910852, 37661247, 6057230 ####[facility] [address] [place] [address] Albumin [Mass/Vol] 3.5 g/dL Normal 3.3-5.0 [facility] Comment on above: Performed By: #### 2 134373, 39830723, 2587034, 1957786, 12773901, 3494460 ####[facility] [address] [place] [address] Albumin/Globulin (S) [Mass conc ratio] 1.0 Low 1.1-2.2 [facility] Comment on above: Performed By: #### 2 419185, 42989094, 9815383, 1808324, 05268503, 2997770 ####[facility] [address] [place] [address] ALP [Catalytic activity/Vol] 55 Int._Unit/L Normal 21-98 [facility] Comment on above: Performed By: #### 2 624387, 23356709, 2432832, 1215184, 31901079, 9899372 ####[facility] [address] [place] [address] ALT No additional P-5'-P [Catalytic activity/Vol] 37 Int._Unit/L Normal 6-46 [facility] Comment on above: Performed By: #### 2 772033, 04050369, 5808529, 0014458, 44979474, 5534644 ####[facility] [address] [place] [address] AST [Catalytic activity/Vol] 44 Int._Unit/L High 5-43 [facility] Comment on above: Performed By: #### 2 288351, 30452862, 3565318, 3622762, 96652239, 9417681 ####[place] [address] [place] [address] Bilirubin [Mass/Vol] 0.4 mg/dL Normal 0.0-1.1 [facility] Comment on above: Performed By: #### 2 479421, 19680541, 0324526, 0533214, 47543694, 4912228 ####[place] [address] Bilirubin.direct [Mass/Vol] mg/dL Normal 0.1-0.4 [facility] Comment on above: Performed By: #### 2 755964, 41040072, 8396618, 5007902, 74942768, 3436340 ####[address] [address] Globulin (S) [Mass/Vol] 3.5 g/dL Normal 1.4-4.0 [facility] Comment on above: Performed By: #### 2 498235, 07783202, 2982249, 7936446, 50381914, 9737784 ####[address] [place] [address] Protein [Mass/Vol] 7.0 g/dL Normal 6.0-7.8 [facility] Comment on above: Performed By: #### 2 186452, 82509865, 4549823, 1807825, 34985125, 1708417 ####[address] [address] MICRO OTHER TESTSOrdered By: Kelly Strange on 12-02-2022 Occult Bld Stl Positive *ABN* (12/02/22 3:01 PM) Invalid Interpretation Code Negative [facility] Man Sero PT & PTTon 12-02-2022 aPTT Coag (PPP) [Time] 32.2 second(s) Normal 25.1-36.5 [facility] Comment on above: Result Comment: Para meter [...] the same coagulation reagent and instrumentation as [facility]. Currently there are no coagulation studies available worldwide for children to 14 days, and no normal ranges. Heparin therapeutic range (represented by Anti-Factor Xa activity of 0.2 - 0.4 U/mL) corresponds to PTT of 56.6 - 109.0 sec. Performed By: #### 2 533538, 21101594, 6257344, 1410373, 48956850, 0993189 ####[facility] [address] [place] [address] INR Coag (PPP) [Relative time] 1.1 {INR} Invalid Interpretation Code [facility] Comment on above: Result Comment: INR results are specifically intended to assess patients stabilized on long-term Anticoagulation therapy suggested INR?s ?Less Intensive Anticoagulation? 2.0 ? 3.0Conventional Range 3.0 ? 4.5 Performed By: #### 2 670270, 49687118, 3087766, 6789085, 19963737, 1937304 ####[facility] [address] [place] [address] PT Coag (PPP) [Time] 11.8 second(s) Normal 9.4-12.5 [facility] Comment on above: Result Comment: 15 d [...] the same coagulation reagent and instrumentation as [facility]. Currently there are no coagulation studies available worldwide for children to 14 days, and no normal ranges. Performed By: #### 2 025765, 97741423, 8282383, 5903311, 03303329, 5366511 ####[facility] [address] [place] [address] Stl Oclt Bldon 12-02-2022 Occult Bld Stl Positive Abnormal Negative [facility] Comment on above: Performed By: #### 2 0056242 ####[facility] [address] [place] [address] eGFRon 12-02-2022 GFR/1.73 sq M.predicted among blacks MDRD (S/P/Bld) [Vol rate/Area] mL/min/{1.73_m2} Normal >=59 [facility] Comment on above: Order Comment: Order added by Discern Expert. Result Comment: eGFR is race adjusted. AA=. Performed By: #### 2 642649, 87786030, 2186036, 9632283, 79024696, 4152522 ####[facility] [address] [place] [address] GFR/1.73 sq M.predicted among non-blacks MDRD (S/P/Bld) [Vol rate/Area] mL/min/{1.73_m2} Normal >=59 [facility] Comment on above: Order Comment: Order added by Discern Expert. Result Comment: Certified Driver Examiner cristo kidney disease could be indicated at eGFR's of less than 60 mL/min/1.73m2. Kidney failure is indicated at less than 15 mL/min/1.73m2. Performed By: #### 2 871713, 68319244, 7478339, 3894500, 36501894, 3683575 ####[facility] [address] [place] [address] Coding Summary.on 11-30-2022 Coding Summary. Normal [facility] Consent for Treatmenton 11-11 Consent for Treatment [id number]#1.00CD :127 Normal [facility] Consultation Noteon 11-30-19 Consultation Note Normal [facility] Comment on above: Result Comment: Elec tronically Signed By: Georgi ESPINAL, Pawan\.br\Date and Time Signed: 11/29/22 10:31 EDT Office/Clinic Note-Physician on 11-29-2022 Office/Clinic Note-Physician [id number]#1.00 CD:127 Normal [facility] Patient Correspondenceon Patient Correspondence [id number]#1.00 CD:127 Normal [facility] Patient History Officeon Patient History Office [id number]#1.00 CD:127 Normal [facility] Transfer Inon 11-26-2022 Transfer In [id number]#1.00C D:127 Normal [facility] Coding Summary.on 11-24-2022 Coding Summary. Normal [facility] US Aorta Completeon 11-21-19 US Aorta Complete Normal [facility] Consent for Treatmenton 11-10 Consent for Treatment [id number]#1.00C D:127 [facility] Consultation Noteon 11-18-19 Consultation Note [id number]#1.00C D:127 [facility] Auth for Release of Medical Recordson 11-16-2022 Auth for Release of Medical Records [id number]#1.00C D:127 [facility] CNOVon 11-14-2022 CNOV Office Visit (KRYSTIN ) LISAJAS MATA ([id number]) 1950 M [facility] Date Time Provider Department 11/14/22 1:30 PM JUMA MONK During your visit today, we recorded the following information about you: Pulse Blood pressure Weight Height 73/minute 121/63 151.5 kg 1.854 m Juma Monk MD 11/16/2022 9:45 AM Signed [facility] Date of Service: 11/14/2022 Patient: Jas Gonzalez Medical Record: [id number] Primary Care Physician: No primary care provider [...] US mail. History of Present Illness Jas oGnzalez is a 72 year old male with [...] 144 mmol/L (more content not included)... Normal [facility] Medicine Office/Clini c Noteon 11-08-2022 Family Medicine Office/Clinic Note Normal [facility] Comment on above: Result Comment: Elec tronically Signed By: Mt GOODEN DO, FAAFP\kelvin\Date and Time Signed: 11/08/22 10:50 EDT Patient Educationon 11-09-19 Patient Education Normal [facility] Coding Summary.on 10-29-2022 Coding Summary. Normal [facility] CHEMISTRYOrdered By: Lab ROP User on 10-24-2022 Glucose [Mass/Vol] 138 mg/dL High 55 - 99 mg/dL FTM C POC Subsection POC Device SN [id number] Invalid Interpretation Code [facility] POC Subsection POC User ID [id number] Invalid Interpretation Code [facility] POC Subsection POC Username LESLIE AUGUSTINE Invalid Interpretation Code [facility] POC Subsection Capillary Glucose POCon 10-10 Glucose [Mass/Vol] 138 mg/dL High 55-99 [facility] Comment on above: Performed By: #### 2 [id number] ####[facility] [address] [place] [address] Consent for Procedure/Surger yon 10-24-2022 Consent for Procedure/Surgery [id number]#1.00 CD:127 Normal [facility] Consent for Treatmenton 10-10 Consent for Treatment [id number]#1.00C D:127 Normal [facility] Consultation Noteon 10-25-19 Consultation Note [id number]#1.00C D:127 Normal [facility] Consultation Note [id number]#1.00C D:127 [facility] Discharge Instructionson Discharge Instructions [id number]#1.00 CD:127 Normal [facility] IntraOperative Documentson 0 10-24-2022 IntraOperative Documents [id number]#1.00 CD:127 [facility] IntraOperative Documents [id number]#1.00 CD:127 [facility] Main OR Intraoperative Recor don 10-24-2022 Main OR Intraoperative Record [facility] Main OR Preoperative Recordo n 10-24-2022 Main OR Preoperative Record [facility] Operative Reporton Operative Report Normal [facility] Comment on above: Result Comment: Elec tronically Signed By: Georgi ESPINAL, Pawan\.br\Date and Time Signed: 10/24/22 19:25 EDT Patient Correspondenceon Patient Correspondence [id number]#1.00CD :127 Normal [facility] Coding Summary.on 10-01-2022 Coding Summary. Normal [facility] Consultation Noteon 09-29-19 Consultation Note [facility] Comment on above: Result Comment: Elec tronically Signed By: Georgi ESPINAL, Pawan\.br\Date and Time Signed: 09/29/22 20:14 EST Consent for Treatmenton 09-12 Consent for Treatment [id number]#1.00C D:127 Normal [facility] Office/Clinic Note-Physician on 09-27-2022 Office/Clinic Note-Physician [id number]#1.00C D:127 Normal [facility] Patient Correspondenceon Patient Correspondence [id number]#1.00C D:127 Normal [facility] Patient History Officeon Patient History Office [id number]#1.00C D:127 [facility] Physician Orderon 09-27-2022 Physician Order [id number]#1.00C D:127 [facility] Consent for Treatmenton Consent for Treatment [id number]#1.00C D:127 [facility] Auth for Release of Medical Recordson 09-17-2022 Auth for Release of Medical Records [id number]#1.00C D:127 [facility] Ambulatory Visit Summaryon 0 09-14-2022 Ambulatory Visit Summary Normal [address], [place] [address]- \.br\ You Need to Schedule the Following Appointments\.br\ Follow Up with Perla LEE, BEATRIZ Oneil PED When: Within 1 month, only if needed\.br\ Comments:\.br\ 40 mins\.br\ Where:\.br\ [address]\.br\ [place] [address]\.br\ Medications\.br\ What How Much When Why Instructions\.br\ [...] with hiatal hernia\.br\ High serum protein level\.br\ prison current use of oral hypoglycemic drug\.br\ Numbness [...] pulmonary embolus\.br\ kidney stones\.br\ Left shoulder pain\.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 Normal [facility] Coding Summary. Normal [facility] Auto Diffon 09-10-2022 Basophils/100 WBC (Bld) 0.8 % Normal 0.0-2.0 [facility] Comment on above: Order Comment: Order Added by Discern Expert. Performed By: #### 1 6570749, 67728003, 8598133, 8040354, 6160625, 0773781, 4654103 ####[facility] [address] [place] [address] Basophils/Leukocyte s Auto (Bld) [Pure # fraction] 0.1 E9/L Normal 0.0-0.2 [facility] Comment on above: Order Comment: Order Added by Discern Expert. Performed By: #### 1 4334220, 18629181, 5736419, 8711261, 7373289, 9772740, 8639933 ####[facility] [address] [place] [address] Eosinophils/100 WBC (Bld) 1.7 % Normal 0.0-8.0 [facility] Comment on above: Order Comment: Order Added by Discern Expert. Performed By: #### 1 6830559, 27305715, 9000758, 2441793, 3063044, 9688578, 4707600 ####[facility] [address] [place] [address] Eosinophils/Leukocy camden Auto (Bld) [Pure # fraction] 0.1 E9/L Normal 0.0-0.5 [facility] Comment on above: Order Comment: Order Added by Discern Expert. Performed By: #### 1 6836000, 22806926, 1811773, 2554299, 2793238, 5797660, 2315920 ####[address] [address] Lymphocytes/100 WBC (Bld) 34.3 % Normal 14.0-50.0 [facility] Comment on above: Order Comment: Order Added by Discern Expert. Performed By: #### 1 0206133, 74792164, 4488557, 2123995, 9296970, 4361593, 5120686 ####[place] [place] [address] Lymphocytes/Leukocy camden Auto (Bld) [Pure # fraction] 2.2 E9/L Normal 1.0-4.0 [facility] Comment on above: Order Comment: Order Added by Discern Expert. Performed By: #### 1 1259843, 43132575, 4056561, 1352727, 6062125, 0052630, 1964864 ####[facility] [address] [place] [address] Monocytes/100 WBC (Bld) 7.4 % Normal 4.0-14.0 [facility] Comment on above: Order Comment: Order Added by Rudi Expert. Performed By: #### 1 3164632, 94869388, 6917341, 8957442, 0685051, 4480101, 0135582 ####[facility] [address] [place] [address] Monocytes/Leukocyte s Auto (Bld) [Pure # fraction] 0.5 E9/L Normal 0.2-1.0 [facility] Comment on above: Order Comment: Order Added by Discern Expert. Performed By: #### 1 1958217, 59114130, 9985067, 6319033, 9304312, 1710204, 5760197 ####[place] [place] [place] [address] Neutrophils/100 WBC (Bld) 55.8 % Normal 36.0-75.0 [facility] Comment on above: Order Comment: Order Added by Discern Expert. Performed By: #### 1 2555878, 28410796, 1738953, 2439975, 7713581, 5070339, 8128717 ####[address] [address] Neutrophils/Leukocy cam[place] Auto (Bld) [Pure # fraction] 3.6 E9/L Normal 2.0-7.5 [facility] Comment on above: Order Comment: Order Added by Discern Expert. Performed By: #### 1 8514644, 64845832, 8753792, 0891600, 1911541, 5507120, 5923405 ####[address] [place] [address] BMPon 09-10-2022 Anion gap [Moles/Vol] 11 mmol/L Normal 6-16 [facility] Comment on above: Performed By: #### 1 4244799, 57962807, 6149761, 1648871, 5031720, 9749346, 5715909 ####[facility] [address] [place] [address] Calcium [Mass/Vol] 9.4 mg/dL Normal 8.9-11.1 [facility] Comment on above: Performed By: #### 1 0467634, 99191833, 6609066, 7588224, 2473067, 8240643, 4338086 ####[address] [place] [address] Chloride [Moles/Vol] 101 mmol/L Normal 101-111 [facility] Comment on above: Performed By: #### 1 4914329, 25125737, 1644593, 8042831, 7677722, 2572615, 7498599 ####[facility] [address] [place] [address] CO2 [Moles/Vol] 30 mmol/L Normal 21-31 [facility] Comment on above: Performed By: #### 1 3659220, 54745197, 4230571, 8977551, 6642628, 8387646, 3203195 ####[facility] [address] [place] [address] Creatinine [Mass/Vol] 0.9 mg/dL Normal 0.5-1.3 [facility] Comment on above: Performed By: #### 1 0737039, 78182453, 4540431, 7072132, 8059289, 4987036, 5732722 ####[facility] [address] [place] [address] Glucose [Mass/Vol] 119 mg/dL Normal 55-199 [facility] Comment on above: Result Comment: If t his glucose result represents a fasting glucose, interpretation should refer to the following reference range: 55-99 mg/dL Performed By: #### 1 5707669, 43717832, 7539584, 7083087, 7160425, 2486343, 7392544 ####[facility] [address] [place] [address] Potassium [Moles/Vol] 4.0 mmol/L Normal 3.5-5.3 [facility] Comment on above: Performed By: #### 1 8060287, 73322771, 8515711, 1722225, 5390040, 6478874, 9550936 ####[facility] [address] [place] [address] Sodium [Moles/Vol] 138 mmol/L Normal 135-145 [facility] Comment on above: Performed By: #### 1 9704565, 48094328, 9250388, 2648584, 5453389, 6194779, 3553618 ####[facility] [address] [place] [address] Urea nitrogen [Mass/Vol] 17 mg/dL Normal 5-21 [facility] Comment on above: Performed By: #### 1 4258058, 66551243, 5450526, 1620869, 0398494, 6058373, 7720483 ####[facility] [address] [place] [address] Urea nitrogen/Creatinine [Mass ratio] 19 No Units Normal 10-20 [facility] Comment on above: Performed By: #### 1 0331128, 27886352, 4018402, 1523503, 1026461, 3336759, 8216471 ####[facility] [address] [place] [address] CBC w/ Auto Diffon Erythrocyte distribution width (RBC) [Ratio] 14.5 % High 10.9-14.2 [facility] Comment on above: Performed By: #### 1 2419161, 40055796, 3317471, 9996446, 9180533, 2653082, 3708105 ####[facility] [address] [place] [address] Hematocrit (Bld) [Volume fraction] 45.0 % Normal 37.7-49.0 [facility] Comment on above: Performed By: #### 1 3486144, 64285219, 5812982, 1620147, 4038375, 5958033, 8999017 ####[facility] [address] [place] [address] Hemoglobin (Bld) [Mass/Vol] 14.6 g/dL Normal 13.5-17.5 [facility] Comment on above: Performed By: #### 1 8038794, 35265441, 0417196, 4347257, 0890644, 4431235, 8177920 ####[facility] [address] [place] [address] MCH (RBC) [Entitic mass] 30.8 pg Normal 27.0-34.0 [facility] Comment on above: Performed By: #### 1 8304161, 26765004, 6046699, 7751692, 6376829, 4842667, 9372968 ####[facility] [address] [place] [address] MCHC (RBC) [Mass/Vol] 32.5 g/dL Normal 31.4-36.0 [facility] Comment on above: Performed By: #### 1 8572070, 32706876, 1485708, 4272908, 5805267, 8510991, 3920630 ####[address] [place] [address] MCV (RBC) [Entitic vol] 94.6 fL Normal 80.0-100.0 [facility] Comment on above: Performed By: #### 1 3419475, 42757498, 7238423, 4354493, 8859160, 7800622, 9031863 ####[place] [address] Platelet mean volume (Bld) [Entitic vol] 8.3 fL Normal 6.4-10.8 [facility] Comment on above: Performed By: #### 1 6164118, 03500082, 9569179, 9969474, 3707667, 2465050, 8741686 ####[address] [place] [address] Platelets (Bld) [#/Vol] 159.0 E9/L Normal 150.0-500.0 [facility] Comment on above: Performed By: #### 1 9369724, 42555499, 8664288, 9828823, 1308289, 5571171, 7331129 ####[address] [place] [address] RBC (Bld) [#/Vol] 4.8 E12/L Normal 4.3-5.9 [facility] Comment on above: Performed By: #### 1 8947658, 96363878, 2925127, 9379842, 3606198, 9951555, 4778692 ####[facility] [address] [place] [address] WBC corrected for nucl RBC Auto (Bld) [#/Vol] 6.4 E9/L Normal 4.0-11.0 [facility] Comment on above: Performed By: #### 1 7864358, 17213172, 8163346, 9868660, 5791776, 2838692, 4604030 ####[facility] [address] [place] [address] CHEMISTRYOrdered By: Elma Person on 09-10-2022 Albumin DL <= 20 mg/L (U) [Mass/Vol] 11.6 microgram/mL Normal 0.0 - 19.0 mcg/mL [facility] Remisol CHEMISTRYOrdered By: Safehis SYSTEM on 09-10-2022 Albumin [Mass/Vol] 4.1 g/dL Normal 3.3 - 5.0 gm/dL [facility] Remisol Albumin/Globulin [Mass ratio] 1.1 {ratio} Normal [...] 9.4 mg/dL Normal 8.9 - 11.1 mg/dL [facility]isol Chloride [Moles/Vol] 101 mmol/L Normal 101 [...] 30 mmol/L Normal 21 - 31 mmol/L [facility] Creatinine [Mass/Vol] 0.9 mg/dL Normal 0.5 - 1.3 mg/dL [facility] GFR/1.73 sq M.predicted among blacks MDRD (S/P/Bld) [Vol rate/Area] mL/min/1.73 m2 Normal >=59mL/min/1.73 m2 [facility] Chem S GFR/1.73 sq M.predicted among non-blacks MDRD (S/P/Bld) [Vol rate/Area] mL/min/1.73 m2 Normal >=59mL/min/1.73 m2 [facility] Chem S Globulin (S) [Mass/Vol] 3.8 g/dL Normal 1.4 - 4.0 gm/dL [facility] Glucose [Mass/Vol] 119 mg/dL Normal 55 - 199 mg/dL [facility] Potassium [Moles/Vol] 4.0 mmol/L Normal 3.5 - 5.3 mmol/L [facility] Prostate specific Ag [Mass/Vol] 0.9 ng/mL Normal 0.1 - 3.5 ng/mL [facility] Protein [Mass/Vol] 7.9 g/dL High 6.0 - 7.8 gm/dL [facility] Remisol Sodium [Moles/Vol] 138 mmol/L Normal 135 - 145 mmol/L [facility] Triglyceride [Mass/Vol] 120 mg/dL Normal <=149mg/dL [facility] Urea nitrogen [Mass/Vol] 17 mg/dL Normal 5 - 21 mg/dL [facility] Urea nitrogen/Creatinine [Mass ratio] 19 mg/mg Normal 10 - 20 [facility] CHEMISTRYOrdered By: Alia Heart on 01-30-2023 HbA1c (Bld) [Mass fraction] 6.3 % High <=5.9% [facility] ChemAutoSS Consent for Treatmenton 08-14 Consent for Treatment [id number]#00C D:127 Normal [facility] Consent for Treatment [id number]#100C D:127 Normal [facility] HEMATOLOGYOrdered By: SYSTEM SYSTEM on 09-10-2022 Basophils/100 [...] - 7.5 E9/L [facility] HemeAutoSS HEMATOLOGYOrdered By: Chloe Reynolds on 09-10-2022 Erythrocyte distribution width (RBC) [Ratio] 14.5 % High 10.9 - 14.2 % [facility] HemeAutoSS Hematocrit (Bld) [Volume fraction] 45.0 % Normal 37.7 - 49.0 % [facility] HemeAutoSS Hemoglobin (Bld) [Mass/Vol] 14.6 g/dL Normal 13.5 - 17.5 gm/dL [facility] HemeAutoSS MCH (RBC) [Entitic mass] 30.8 pg Normal 27.0 - 34.0 pg [facility] HemeAutoSS MCHC (RBC) [Mass/Vol] 32.5 g/dL Normal 31.4 - 36.0 gm/dL [facility] HemeAutoSS MCV (RBC) [Entitic vol] 94.6 fL Normal 80.0 - 100.0 fL [facility] HemeAuto[facility] Platelet mean volume (Bld) [Entitic vol] 8.3 fL Normal 6.4 - 10.8 fL [facility] HemeAutoSS Platelets (Bld) [#/Vol] 159.0 E9/L Normal 150.0 - 500.0 E9/L [facility] HemeAuto[facility] RBC (Bld) [#/Vol] 4.8 E12/L Normal 4.3 - 5.9 E12/L [facility] HemeAutoSS WBC corrected for nucl RBC Auto (Bld) [#/Vol] 6.4 E9/L Normal 4.0 - 11.0 E9/L [facility] HemeAuto[facility] Hep Func Panelon 09-10-2022 Bilirubin.indirect [Mass or moles/Vol] UTC Abnormal 0.1-0.9 [facility] Comment on above: Result Comment: Resu lt verified by Discern Rule. Performed result UTC (Unable to Calculate) was sent as an Alpha code due the inability to calculate a valid numeric value. Performed By: #### 1 [id number], 39587132, 1193228, 1349753, 4041606, 7151472, 3042413 ####[facility] [address] [place] [address] Albumin [Mass/Vol] 4.1 g/dL Normal 3.3-5.0 [facility] Comment on above: Performed By: #### 1 8276365, 70134541, 8475924, 7073457, 1949152, 0966432, 4353718 ####[facility] [address] [place] [address] Albumin/Globulin (S) [Mass conc ratio] 1.1 Normal 1.1-2.2 [facility] Comment on above: Performed By: #### 1 8027010, 36829545, 2165438, 6653211, 0381317, 3357810, 8958503 ####[facility] [address] [place] [address] ALP [Catalytic activity/Vol] 56 Int._Unit/L Normal 21-98 [facility] Comment on above: Performed By: #### 1 6578069, 77410765, 1598638, 0859661, 8519446, 4270670, 9237403 ####[facility] [address] [place] [id number] ALT No additional P-5'-P [Catalytic activity/Vol] 37 Int._Unit/L Normal 6-46 [facility] Comment on above: Performed By: #### 1 2555264, 22085044, 3252971, 7553829, 4441018, 5251137, 1403185 ####[place] [address] AST [Catalytic activity/Vol] 39 Int._Unit/L Normal 5-43 [facility] Comment on above: Performed By: #### 1 0109132, 86555319, 6125630, 4100250, 9043986, 2291505, 6460746 ####[place] [address] Bilirubin [Mass/Vol] 0.6 mg/dL Normal 0.0-1.1 [facility] Comment on above: Performed By: #### 1 6132897, 28675623, 7930995, 2846215, 4784734, 7617773, 4864012 ####[facility] [address] [place] [address] Bilirubin.direct [Mass/Vol] mg/dL Normal 0.1-0.4 [facility] Comment on above: Performed By: #### 1 4833990, 14328712, 2611325, 2934709, 2870378, 9312774, 3946390 ####[place] [address] Globulin (S) [Mass/Vol] 3.8 g/dL Normal 1.4-4.0 [facility] Comment on above: Performed By: #### 1 1638223, 08771926, 4093688, 8052774, 2508160, 2468342, 6942970 ####[facility] [address] [place] [address] Protein [Mass/Vol] 7.9 g/dL High 6.0-7.8 [facility] Comment on above: Performed By: #### 1 0831835, 16851910, 2506198, 6647072, 0489103, 8597000, 8932889 ####[facility] [address] [place] [address] BaxZ9wcp 09-10-2022 HbA1c (Bld) [Mass fraction] 6.3 % High <=5.9 [facility] Comment on above: Performed By: #### 7 [id number] ####[facility] [address] [place] [address] Lipid Panelon 09-10-2022 Cholesterol [Mass/Vol] 209 mg/dL High 120-200 [facility] Comment on above: Performed By: #### 1 0171084, 40294930, 0076605, 6564807, 9925602, 8188355, 3866169 ####[facility] [address] [place] [address] Cholesterol in HDL [Mass/Vol] 42 mg/dL Invalid Interpretation Code [facility] Comment on above: Result Comment: HDL > or equal to 60 mg/dL: Low cardiovascular riskHDL < 40 mg/dL : High cardiovascular risk Performed By: #### 1 1913812, 40043331, 3746092, 6926377, 3837757, 3600505, 1542864 ####[facility] [address] [place] [address] Cholesterol in LDL [Mass/Vol] 144 mg/dL High <=129 [facility] Comment on above: Performed By: #### 1 4827257, 75017066, 3865889, 2069891, 5460117, 2585217, 5837529 ####[facility] [address] [place] [address] Cholesterol in VLDL [Mass/Vol] 24 mg/dL Normal 7-40 [facility] Comment on above: Performed By: #### 1 9268594, 64092866, 9429908, 9859621, 4017070, 6070565, 0089865 ####[facility] [address] [place] [address] Triglyceride [Mass/Vol] 120 mg/dL Normal <=149 [facility] Comment on above: Performed By: #### 1 3504017, 19208918, 5773010, 8036698, 5048491, 4815005, 9351575 ####[facility] [address] [place] [address] MRI Spine Lumbar w/o Contras ton 09-10-2022 MRI Spine Lumbar w/o Contrast Normal [facility] PSA Screen, Totalon 09-10-19 Prostate specific Ag [Mass/Vol] 0.9 ng/mL Normal 0.1-3.5 [facility] Comment on above: Result Comment: The concentration of PSA determined by different manufacturers can vary due to differences in assay methods and reagent specificity. Values obtained from different assay methods cannot be used interchangeably. The methodology used for this result was chemiluminescence using [employer]'s Access Hybritech PSA reagent. Performed By: #### 1 1435749, 90565784, 6567848, 1604768, 8525766, 7879643, 4530848 ####[facility] [address] [place] [address] RAD - MRI Screening Formon 0 09-10-2022 RAD - MRI Screening Form [id number]#1.00C D:127 Normal [facility] U Microalbon 09-10-2022 Albumin DL <= 20 mg/L (U) [Mass/Vol] 11.6 microgram/mL Normal 0.0-19.0 [facility] Comment on above: Performed By: #### 1 7512001 ####[facility] [address] [place] [address] XR Spine Lumbosacral Minimum 4 Viewson 09-10-2022 XR Spine Lumbosacral Minimum 4 Views Normal [facility] eGFRon 09-10-2022 GFR/1.73 sq M.predicted among blacks MDRD (S/P/Bld) [Vol rate/Area] mL/min/{1.73_m2} Normal >=59 [facility] Comment on above: Order Comment: Order added by Discern Expert. Result Comment: eGFR is race adjusted. AA=. Performed By: #### 1 8407606, 75129325, 5925677, 1500739, 5309503, 9701255, 3595485 ####[facility] [address] [place] [address] GFR/1.73 sq M.predicted among non-blacks MDRD (S/P/Bld) [Vol rate/Area] mL/min/{1.73_m2} Normal >=59 [facility] Comment on above: Order Comment: Order added by Discern Expert. Result Comment: Certified Driver Examiner cristo kidney disease could be indicated at eGFR's of less than 60 mL/min/1.73m2. Kidney failure is indicated at less than 15 mL/min/1.73m2. Performed By: #### 1 5405649, 50556945, 3897997, 6786936, 2971788, 3661700, 7220229 ####[facility] [address] [place] [address] Physician Orderon 08-31-2022 Physician Order [id number]#1.00C D:127 Normal [facility] Physician Order [id number]#1.00C D:127 Normal [facility] Physician Order [id number]#1.00 CD:127 Normal [facility] Physician Order [id number]#1.00 CD:127 Normal [facility] Physician Order [id number]#1.00 CD:127 Normal [facility] Consultation Noteon 08-29-19 Consultation Note Normal [facility] Comment on above: Result Comment: Elec tronically Signed By: Pawan Laureano MD\.br\Date and Time Signed: 08/29/22 08:28 EST Family Medicine Office/Clini c Noteon 08-29-2022 Family Medicine Office/Clinic Note Normal [facility] Comment on above: Result Comment: Elec tronically Signed By: Mt GOODEN DO, FAAFP\.br\Date and Time Signed: 08/29/22 12:52 EST\.br\Electronically Co-Signed By: Estelita Singh LPN\.br\Date and Time Co-Signed: 08/28/22 14:23 EST Ambulatory Visit Summaryon 0 08-28-2022 Ambulatory Visit Summary Invalid Interpretation Code [address], [place] [address]- \.br\ Saturday 11:00 AM EST \.br\ With:\.br\ Where: [facility] Patient Educationon 08-28-19 Patient Education [facility] Screenson 08-28-2022 Screens [id number]#1.00C D:127 Normal [facility] Coding Summary.on 08-27-2022 Coding Summary. Normal [facility] Ambulatory Visit Summaryon 0 08-23-2022 Ambulatory Visit Summary Invalid Interpretation Code [address], [place] [address]- \.br\ You Need to Schedule the Following Appointments\.br\ Follow Up with Mt GOODEN DO, FAAFP, FAM, PED When: In 6 months\.br\ Where:\.br\ [address]br\ [place] [address]-\.br\ \.br\ You Need to Complete the Following\.br\ Basic Metabolic Panel, Blood, Routine collect, 08/23/22, Order for future visit, Lab Collect, Type 2 diabetes mellitus with morbid obesity [facility] Consent for Treatmenton 08-12 Consent for Treatment [id number]#1.00 CD:127 Normal [facility] Family Medicine Office/Clini c Noteon 08-23-2022 Family Medicine Office/Clinic Note Normal [facility] Comment on above: Result Comment: Elec tronically Signed By: Mt GOODEN DO, FAAFP\.br\Date and Time Signed: 08/23/22 08:16 EST HIPAA Forms Officeon 023 HIPAA Forms Office [id number]#1.00 CD:127 Normal [facility] Legal Correspondence Officeo n 08-23-2022 Legal Correspondence Office [id number]#1.00 CD:127 Normal [facility] Legal Correspondence Office [id number]#1.00 CD:127 Normal [facility] Office/Clinic Note-Physician on 08-23-2022 Office/Clinic Note-Physician [id number]#1.00 CD:127 Normal [facility] Patient Correspondenceon Patient Correspondence [id number]#1.00 CD:127 Normal [facility] Patient Correspondence [id number]#1.00 CD:127 [facility] Patient Correspondence [id number]#1.00 CD:127 [facility] Patient Correspondence [id number]#1.00 CD:127 Normal [facility] Patient Correspondence [id number]#1.00 CD:127 Normal [facility] Patient Educationon 08-23-19 23 Patient Education Normal [facility] Patient History Officeon Patient History Office [id number]#1.00 CD:127 Normal [facility] Physician Referralon 023 Physician Referral [id number]#1.00C D:127 Normal [facility] Physician Referralon 022 Physician Referral [id number]#1.0 0CD:127 Normal [facility] Reminderson 08-02-2022 Reminders [facility] Family Medicine Office/Clini c Noteon 08-01-2022 Family Medicine Office/Clinic Note Normal [facility] Comment on above: Result Comment: Elec tronically Signed By: Thao Duncan DO\Date and Time Signed: 08/01/22 20:01 EST Patient Educationon 08-01-20 Patient Education [facility] ANES POSTPROC EVALon ANES POSTPROC EVAL HNO ID: [id number] Author: Vincenzo Laughlin MD Service: ? Author [...] June 08, 2022 TIME: 5:56 PM CSN: [id number] Normal [facility] ANES PRE-OPon 06-08-2022 ANES PRE-OP HNO ID: [id number] Author: Vincenzo Laughlin MD Service: ? Author Type: Anesthesiologist Type: Anesthesia Preprocedure Evaluation Filed: 06/08/2022 12:32 PM Note Text: ANESTHESIOLOGY DAY OF SURGERY NOTE : 1950 Procedure Information Date/Time: 06/08/22 1300 Scheduled providers: Katrina Urena MD; Vincenzo Laughlin MD; Sky Howe APRN.HOT ROLL LAMINATOR Procedure: EGD DIAGNOSTIC Location: Gastroenterology Estimated body [...] and consent discussed: yes. Patient / Responsible Democrat agrees to proceed: yes Patient / Surrogate [...] June 08, 2022 TIME: 12:31 PM CSN: [id number] Normal [facility] EGD DIAGNOSTICon 06-08-2022 [facility] GLUCOSE, BLOOD (POC)on 06-08 Glucose [Mass/Vol] 129 mg/dL Abnormal 74 - 99 mg/dL [facility] Glucose [Mass/Vol] 95 mg/dL 74 - 99 mg/dL [facility] NURSING PROGon 06-08-2022 NURSING PROG HNO ID: [id number] Author: Leonor Osorio, RN Service: Nursing Author Type: Registered Nurse [...] Electronically Signed By: Leonor Osorio RN Normal [facility] NURSING PROG HNO ID: [id number] Author: Marguerite Potts RN Service: Nursing Author [...] Marguerite Potts RN In Department: GASTROENTEROLOGY Normal [facility] SURGICAL PATHOLOGYon 022 ADDENDUM 1: Normal [facility] Comment on above: Order Comment: Speci men Type: TISSUE SPECIMENOrdering Facility: [facility] Address: [address] [place] [id number] Result Comment: H. p ylori immunostain performed on the stomach biopsy (part A) to evaluate the chronic gastritis is negative for organisms. Laboratory Developed Test (LDT) Disclaimer: Performance characteristics of immunohistochemical, immunofluorescent and chromogenic in-situ hybridization tests have been determined by the performing laboratory within [facility]???s Thao Caraballo [facility] Pathology and Laboratory Medicine [place] ([facility], [facility], [facility] or [facility]) in a manner consistent with CLIA requirements. [...] at 3:20 PM Performed By: #### S ####[facility] LABORATORYIA [id number] [address] CASE REPORT Normal [facility] Comment on above: Order Comment: Jay mendoza Type: TISSUE SPECIMENOrdering Facility: [facility] Address: [address] [place] [address] Result Comment: Surg ica Pathology Report Case: [id number] Authorizing Provider: Katrina Urena MD Collected: 06/08/2022 12:47 PM Ordering Location: Gastroenterology Received: 06/08/2022 03:49 PM Pathologist: Sky Alvarenga MD Specimens: A) - STOMACH BIOPSY, gastric antrum B) - STOMACH BIOPSY, gastric antrum nodule C) - ESOPHAGUS BIOPSY, @41 D) - ESOPHAGUS BIOPSY, @39 E) - ESOPHAGUS BIOPSY, @38 Performed By: #### S ####[facility] LABORATORYCLIA [id number] [address] DIAGNOSIS COMMENT H. pylori immunostai n is pending. Normal [facility] Comment on above: Order Comment: Jay mendoza Type: TISSUE SPECIMENOrdering Facility: [facility] Address: [address] [place] [address] Performed By: #### S ####[facility] LABORATORYCLIA [id number] [address] FINAL DIAGNOSIS Normal [facility] Comment on above: Order Comment: Jay mendoza Type: TISSUE SPECIMENOrdering Facility: [facility] Address: [address] [place] [address] Result Comment: A. S tomach, biopsy: - [...] negative for dysplasia. Performed By: #### S ####[facility] LABORATORYCLIA [id number] [address] [place] FINAL PERFORMING LAB Normal [facility] Comment on above: Order Comment: Speci men Type: TISSUE SPECIMENOrdering Facility: [facility] Address: [address] [place] [address] Result Comment: Diag nostic interpretation performed at [facility], [address], [place] [address] CLIA# [id number] Progress Clerk: Nellie Galvin M.D. Performed By: #### S ####[facility] LABORATORYCLIA [id number] [address] GROSS DESCRIPTION Normal [facility] Comment on above: Order Comment: Speci men Type: TISSUE SPECIMENOrdering Facility: [facility] Address: [address] [address] Result Comment: A. S TOMACH BIOPSY Received [...] in one cassette. Gross examination performed at [facility], [address] [facility] [address] JS 06/08/2022 7:53 PM Performed By: #### S ####[facility] LABORATORYCLIA [id number] [place] [id number] [facility]20[facility] JAS GONZALEZ ([id number]) 1950 M [facility] Date Time Provider Department 06/01/22 [facility] During your visit today, we recorded the [...] have family/friend present for procedure transport home:Patient/patient computer help desk representative was told that if they do not have a responsible adult accompany them to their procedure; and remain in the endoscopy area until they are discharged; that their procedure cannot be done with sedation or anesthesia and may be cancelled. Any barriers to Patient learning: Patient/Patient Caustic Room Operator responded appropriately on phone. Type of instruction given: Verbal by telephone contact. Dee Marin RN Allergies As of Date: 06/01/2022 (Not on File) Date Reviewed: Never Reviewed Reason for Visit: Appointment Confirmation [[id number]] Problem List As Of Date: 06/01/2022 (None) Encounter Status:Closed by DEE MARIN [facility]GAST[facility] LISAJAS Fair ([id number]) 1950 M DEF Date Time Provider Department 04/26/22 MARGUERITE POTTS During your visit today, we recorded the following information about you: Marguerite Potts RN 04/26/2022 3:44 PM Signed Attempted to reach the patient at the contact number that they provided [phone] (home) . 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 computer help desk representative they must have a responsible adult [...] Number to call with questions or concerns [phone] Number to call to cancel their procedure [phone] Marguerite Potts RN Allergies As of Date: 04/26/2022 (Not on File) Date Reviewed: Never Reviewed Reason for Visit: Appointment Confirmation [[id number]] Problem List As Of Date: 04/26/2022 (None) Encounter Status:Closed by MARGUERITE POTTS on 04/26/22 Normal [facility] CBC panel Auto (Bld)on 04-09 Erythrocyte distribution width (RBC) [Ratio] 13.3 % 11.5 - 15.0 % [facility] Hematocrit (Bld) [Volume fraction] 46.8 % 39.0 - 51.0 % [facility] Hemoglobin (Bld) [Mass/Vol] 15.1 g/dL 13.0 - 17.0 g/dL [facility] MCH (RBC) [Entitic mass] 30.7 pg 26.0 - 34.0 pg [facility] MCHC (RBC) [Mass/Vol] 32.3 g/dL 30.5 - 36.0 g/dL [facility] MCV (RBC) [Entitic vol] 95.1 fL 80.0 - 100.0 fL [facility] Nucleated RBC (Bld) [#/Vol] <0.01 k/uL [facility] Platelet mean volume (Bld) [Entitic vol] 10.8 fL 9.0 - 12.7 fL [facility] Platelets (Bld) [#/Vol] 165 10*3/uL 150 - 400 k/uL [facility] RBC (Bld) [#/Vol] 4.92 10*6/uL 4.20 - 6.00 m/uL [facility] WBC (Bld) [#/Vol] 8.48 10*3/uL 3.70 - 11.00 k/u L [facility] Erythrocyte distribution width (RBC) [Ratio] 13.3 % Normal 11.5-15.0 [facility] Comment on above: Order Comment: Speci men Type: BLOOD SPECIMENOrdering Facility: [facility] Address: [address] [place] [address] Performed By: #### 5 8410-2 ####[facility] LABIA [id number] [address] STATES OF [facility] Hematocrit (Bld) [Volume fraction] 46.8 % Normal 39.0-51.0 [facility] Comment on above: Order Comment: Speci men Type: BLOOD SPECIMENOrdering Facility: [facility] Address: [address] [place] [address] Performed By: #### 5 8410-2 ####[facility] LABCLIA [id number] [place] [address] [place] Hemoglobin (Bld) [Mass/Vol] 15.1 g/dL Normal 13.0-17.0 [facility] Comment on above: Order Comment: Speci men Type: BLOOD SPECIMENOrdering Facility: [facility] Address: [address] [place] [address] Performed By: #### 5 8410-2 ####[facility] LABIA [id number] [place] [address] [place] MCH (RBC) [Entitic mass] 30.7 pg Normal 26.0-34.0 [facility] Comment on above: Order Comment: Speci men Type: BLOOD SPECIMENOrdering Facility: [facility] Address: [address] [place] [address] Performed By: #### 5 8410-2 ####[facility] [id number] [address] [place] MCHC (RBC) [Mass/Vol] 32.3 g/dL Normal 30.5-36.0 [facility] Comment on above: Order Comment: Speci men Type: BLOOD SPECIMENOrdering Facility: [facility] Address: [address] [place] [address] Performed By: #### 5 8410-2 ####[facility] [id number] [address] STATES OF [facility] MCV (RBC) [Entitic vol] 95.1 fL Normal 80.0-100.0 [facility] Comment on above: Order Comment: Speci men Type: BLOOD SPECIMENOrdering Facility: [facility] Address: [address] [place] [address] Performed By: #### 5 8410-2 ####[facility] [id number] [address] [place] Nucleated RBC (Bld) [#/Vol] 10*3/uL Normal <0.01 [facility] Comment on above: Order Comment: Speci men Type: BLOOD SPECIMENOrdering Facility: [facility] Address: [address] [place] [address] Performed By: #### 5 8410-2 ####[facility] [id number] [address] [place] Platelet mean volume (Bld) [Entitic vol] 10.8 fL Normal 9.0-12.7 [facility] Comment on above: Order Comment: Speci men Type: BLOOD SPECIMENOrdering Facility: [facility] Address: [address] [place], [place] [address] Performed By: #### 5 8410-2 ####[facility] LABCLIA [id number] [place] [address] [place] Platelets (Bld) [#/Vol] 165 10*3/uL Normal 150-400 [facility] Comment on above: Order Comment: Speci men Type: BLOOD SPECIMENOrdering Facility: [facility] Address: [address] [place], [place] [address] Performed By: #### 5 8410-2 ####[facility] LABIA [id number] [place] [address] [place] RBC (Bld) [#/Vol] 4.92 10*6/uL Normal 4.20-6.00 [facility] Comment on above: Order Comment: Speci men Type: BLOOD SPECIMENOrdering Facility: [facility] Address: [address] [place], [place] [address] Performed By: #### 5 8410-2 ####[facility] LABIA [id number] [place] [address] [place] WBC (Bld) [#/Vol] 8.48 10*3/uL Normal 3.70-11.00 [facility] Comment on above: Order Comment: Speci men Type: BLOOD SPECIMENOrdering Facility: [facility] Address: [address] [place], [place] [address] Performed By: #### 5 8410-2 ####[facility] LABCLIA [id number] [place] [address] [place] CNOVon 04-09-2022 CNOV Office Visit (GASTQ3 ) JAS GONZALEZ ([id number]) 1950 M DEF Date Time Provider Department 04/09/22 3:00 PM KTARINA URENA GASTQ3 During your visit today, we [...] concerned about possible dysplasia sent specimen to [facility], still pending; patient denies pain or GERD symptoms. Past Medical History: Ongoing: Mccarty's esophagus with dysplasia BMI 40-44-9 BPH associated with nocturia Diabetes Mellitus Dietary Counseling GERD with hiatal hernia prison current use of oral hypoglycemic drug Lumbar [...] Findings: The affected area was not inflamed. [place] classification C 40, M 35. Biopsy collected. [...] Past Histories independently gathered by the clinical learning support specialist and the remaining scribed note accurately describes my personal service to the patient. Katrina Urena M.D. Office:[phone] Appointments [phone] (more content not included)... Normal [facility] Comprehensive metabolic 2000 panelon 04-09-2022 Albumin [Mass/Vol] 4.4 g/dL Normal 3.9-4.9 [facility] Comment on above: Order Comment: Speci men Type: BLOOD SPECIMENOrdering Facility: [facility] Address: [address] [place] [address] Performed By: #### 2 4323-8 ####[facility] LABIA [id number] [place] [address] [place] ALP [Catalytic activity/Vol] 70 U/L Normal 38-113 [facility] Comment on above: Order Comment: Speci men Type: BLOOD SPECIMENOrdering Facility: [facility] Address: [address] [place] [address] Performed By: #### 2 4323-8 ####[facility] LABCLIA [id number] [place] [address] [place] ALT [Catalytic activity/Vol] 33 U/L Normal 10-54 [facility] Comment on above: Order Comment: Speci men Type: BLOOD SPECIMENOrdering Facility: [facility] Address: [address] [place] [address] Performed By: #### 2 4323-8 ####[facility] LABCLIA [id number] [place] [address] [place] Anion gap [Moles/Vol] 12 mmol/L Normal 9-18 [facility] Comment on above: Order Comment: Speci men Type: BLOOD SPECIMENOrdering Facility: [facility] Address: [address] [place] [address] Performed By: #### 2 4323-8 ####[facility] LABCLIA [id number] [place] [address] [place] AST [Catalytic activity/Vol] 32 U/L Normal 14-40 [facility] Comment on above: Order Comment: Speci men Type: BLOOD SPECIMENOrdering Facility: [facility] Address: [address] [place], [place] [address] Performed By: #### 2 4323-8 ####[facility] LABCLIA [id number] [place] [address] [place] Bilirubin [Mass/Vol] 0.4 mg/dL Normal 0.2-1.3 [facility] Comment on above: Order Comment: Speci men Type: BLOOD SPECIMENOrdering Facility: [facility] Address: [address] [place] [address] Performed By: #### 2 4323-8 ####[facility] LABCLIA [id number] [place] [address] [place] Calcium [Mass/Vol] 9.9 mg/dL Normal 8.5-10.2 [facility] Comment on above: Order Comment: Speci men Type: BLOOD SPECIMENOrdering Facility: [facility] Address: [address] [place] [address] Performed By: #### 2 4323-8 ####[facility] LABCLIA [id number] [place] [address] [place] Chloride [Moles/Vol] 100 mmol/L Normal 97-105 [facility] Comment on above: Order Comment: Speci men Type: BLOOD SPECIMENOrdering Facility: [facility] Address: [address] [place] [address] Performed By: #### 2 4323-8 ####[facility] LABCLIA [id number] [place] [address] [place] CO2 [Moles/Vol] 27 mmol/L Normal 22-30 [facility] Comment on above: Order Comment: Speci men Type: BLOOD SPECIMENOrdering Facility: [facility] Address: [address] [place] [address] Performed By: #### 2 4323-8 ####[facility] LABCLIA [id number] [place] [address] [place] Creatinine [Mass/Vol] 0.92 mg/dL Normal 0.73-1.22 [facility] Comment on above: Order Comment: Speci men Type: BLOOD SPECIMENOrdering Facility: [facility] Address: [address] [place] [address] Performed By: #### 2 4323-8 ####[facility] LABIA [id number] [address] [place] ESTIMATED GLOMERULAR FILTRATION RATE 87 mL/min/1.73m??? Normal >=60 [facility] Comment on above: Order Comment: Speci men Type: BLOOD SPECIMENOrdering Facility: [facility] Address: [address] [place] [address] Result Comment: Aminta mated Glomerular Filtration Rate [...] actual GFR. Performed By: #### 2 4323-8 ####[facility] LABCLIA [id number] [place] [address] [place] Glucose [Mass/Vol] 99 mg/dL Normal 74-99 [facility] Comment on above: Order Comment: Speci men Type: BLOOD SPECIMENOrdering Facility: [facility] Address: [address] [place], [place] [address] Result Comment: The [place] [employer] Association (ADA) provides guidance for cutoff [...] Standards of Medical Care in Diabetes 2016, [place] [employer]. Diabetes Care. 2016.39(Suppl 1). Performed By: #### 2 4323-8 ####[facility] LABCLIA [id number] [place] [address] [place] Potassium [Moles/Vol] 4.2 mmol/L Normal 3.7-5.1 [facility] Comment on above: Order Comment: Speci men Type: BLOOD SPECIMENOrdering Facility: [facility] Address: [address] [place] [address] Performed By: #### 2 4323-8 ####[facility] LABCLIA [id number] [place] [address] [place] Protein [Mass/Vol] 7.7 g/dL Normal 6.3-8.0 [facility] Comment on above: Order Comment: Speci men Type: BLOOD SPECIMENOrdering Facility: [facility] Address: [address] [address] Performed By: #### 2 4323-8 ####[facility] LABCLIA [id number] [place] [address] [place] Sodium [Moles/Vol] 139 mmol/L Normal 136-144 [facility] Comment on above: Order Comment: Speci men Type: BLOOD SPECIMENOrdering Facility: [facility] Address: [address] [place] [address] Performed By: #### 2 4323-8 ####[facility] LABCLIA [id number] [place] [address] [place] Urea nitrogen [Mass/Vol] 16 mg/dL Normal 9-24 [facility] Comment on above: Order Comment: Speci men Type: BLOOD SPECIMENOrdering Facility: [facility] Address: [address] [place] [address] Performed By: #### 2 4323-8 ####[facility] LABCLIA [id number] [address] [place] CHEMISTRYOrdered By: Alia [facility] on 09-07-2021 HbA1c (Bld) [Mass fraction] 6.3 % High <=5.9% [facility] Vital Signs Date Time Vital Sign Value Performing Clinician Facility 08-26-2023 09:39-0500 Blood Pressure Location [facility] 08-26-2023 09:39-0500 Diastolic blood pressure 70 mm[Hg] [facility] 08-26-2023 09:39-0500 Heart rate 83 /min [facility] 08-26-2023 09:39-0500 SaO2% (BldA) [Mass fraction] 95 % [facility] 08-26-2023 09:39-0500 Systolic blood pressure 122 mm[Hg] [facility] 07-17-2023 09:46-0500 Blood Pressure Location [facility] 07-17-2023 09:46-0500 Diastolic blood pressure 72 mm[Hg] Basem [facility] 07-17-2023 09:46-0500 Heart rate 81 /min Basem [facility] 07-17-2023 09:46-0500 SaO2% (BldA) [Mass fraction] 95 % Basem [facility] 07-17-2023 09:46-0500 Systolic blood pressure 102 mm[Hg] Basem [facility] 07-09-2023 10:05-0500 Heart rate 83 /min d [facility] 07-09-2023 10:05-0500 SaO2% (BldA) [Mass fraction] 95 % [facility] 07-09-2023 10:05-0500 Body temperature 97.52 [degF] [facility] 07-09-2023 10:04-0500 Diastolic blood pressure 69 mm[Hg] [facility] 07-09-2023 10:04-0500 Mean blood pressure 84 mm[Hg] [facility] 07-09-2023 10:04-0500 Systolic blood pressure 113 mm[Hg] [facility] 07-09-2023 10:04-0500 Respiratory rate 20 /min [facility] 06-26-2023 09:42-0500 Blood Pressure Location Basem [facility] 06-26-2023 09:42-0500 Diastolic blood pressure 69 mm[Hg] Matty [facility] 06-26-2023 09:42-0500 Heart rate 84 /min Matty [facility] 06-26-2023 09:42-0500 SaO2% (BldA) [Mass fraction] 96 % [facility] 06-26-2023 09:42-0500 Systolic blood pressure 106 mm[Hg] [facility] 06-03-2023 13:35-0400 Blood Pressure Location [facility] 06-03-2023 13:35-0400 Body temperature 98.42 [degF] [facility] 06-03-2023 13:35-0400 Diastolic blood pressure 62 mm[Hg] [facility] 06-03-2023 13:35-0400 Heart rate 78 /min [facility] 06-03-2023 13:35-0400 Respiratory rate 22 /min [facility] 06-03-2023 13:35-0400 SaO2% (BldA) [Mass fraction] 94 % [facility] 06-03-2023 13:35-0400 Systolic blood pressure 104 mm[Hg] [facility] 04-09-2023 10:00-0400 Blood Pressure Location Mitch Amaro [facility] 04-09-2023 10:00-0400 Body temperature 98.42 [degF] Mitch Amaro [facility] 04-09-2023 10:00-0400 Diastolic blood pressure 68 mm[Hg] Mitchkatya Amaro [facility] 04-09-2023 10:00-0400 Heart rate 90 /min Mitchkatya Amaro [facility] 04-09-2023 10:00-0400 Mean blood pressure 80 mm[Hg] Mitch Amaro [facility] 04-09-2023 10:00-0400 Respiratory rate 22 /min Mitchkatya Amaro [facility] 04-09-2023 10:00-0400 SaO2% (BldA) [Mass fraction] 93 % Mitchkatya Amaro [facility] 04-09-2023 10:00-0400 Systolic blood pressure 104 mm[Hg] Mitchkatya Amaro [facility] 03-13-2023 14:00-0400 Hourly Rounding [facility] 03-13-2023 14:00-0400 Promise to Return Jordan [facility] 03-13-2023 04:00-0400 Diastolic blood pressure 65 mm[Hg] [facility] 03-13-2023 04:00-0400 Heart rate 85 /min [facility] 03-13-2023 04:00-0400 Hourly Rounding [facility] 03-13-2023 04:00-0400 Mean blood pressure 81 mm[Hg] [facility] 03-13-2023 04:00-0400 Promise to Return [facility] 03-13-2023 04:00-0400 SaO2% (BldA) [Mass fraction] 94 % [facility] 03-13-2023 04:00-0400 Systolic blood pressure 112 mm[Hg] [facility] 03-13-2023 03:44-0400 Diastolic blood pressure 63 mm[Hg] [facility] 03-13-2023 03:44-0400 Heart rate 82 /min [facility] 03-13-2023 03:44-0400 Mean blood pressure 78 mm[Hg] [facility] 03-13-2023 03:44-0400 SaO2% (BldA) [Mass fraction] 96 % [facility] 03-13-2023 03:44-0400 Systolic blood pressure 108 mm[Hg] [facility] 03-13-2023 03:00-0400 Diastolic blood pressure 67 mm[Hg] [facility] 03-13-2023 03:00-0400 Heart rate 81 /min [facility] 03-13-2023 03:00-0400 Hourly Rounding Jordan [facility] 03-13-2023 03:00-0400 Mean blood pressure 84 mm[Hg] [facility] 03-13-2023 03:00-0400 Promise to Return Jordan [facility] 03-13-2023 03:00-0400 Systolic blood pressure 118 mm[Hg] [facility] 03-13-2023 02:22-0400 Body temperature 97.52 [degF] [facility] 03-13-2023 02:22-0400 Heart rate 83 /min [facility] 03-13-2023 02:22-0400 Respiratory rate 16 /min [facility] 03-11-2023 10:00-0400 Blood Pressure Location Mhd [facility] 03-11-2023 10:00-0400 Body temperature 97.7 [degF] [facility] 03-11-2023 10:00-0400 Diastolic blood pressure 65 mm[Hg] M[facility] 03-11-2023 10:00-0400 Heart rate 93 /min M[facility] 03-11-2023 10:00-0400 Mean blood pressure 77 mm[Hg] Mhd [facility] 03-11-2023 10:00-0400 Respiratory rate 22 /min [facility] 03-11-2023 10:00-0400 SaO2% (BldA) [Mass fraction] 94 % [facility] 03-11-2023 10:00-0400 Systolic blood pressure 100 mm[Hg] M[facility] 02-19-2023 16:33-0400 [facility] 02-19-[facility] 16:33-0400 Promise to Return [facility] 02-19-2023 16:00-0400 [facility] 02-19-2023 16:00-0400 Promise to Return [facility] 02-19-2023 15:29-0400 Heart rate 86 /min [facility] 02-19-2023 15:29-0400 SaO2% (BldA) [Mass fraction] 94 % [facility] 02-19-2023 15:28-0400 Diastolic blood pressure 86 mm[Hg] [facility] 02-19-2023 15:28-0400 Mean blood pressure 103 mm[Hg] [facility] 02-19-2023 15:28-0400 Systolic blood pressure 136 mm[Hg] [facility] 02-19-2023 15:28-0400 Body temperature 97.7 [degF] [facility] 02-19-2023 15:00-0400 Blood Pressure Location [facility] 02-19-2023 15:00-0400 [facility] 02-19-2023 15:00-0400 Promise to Return [facility] 02-19-2023 15:00-0400 Respiratory rate 16 /min [facility] 02-19-2023 11:33-0400 Heart rate 83 /min [facility] 02-19-2023 11:33-0400 SaO2% (BldA) [Mass fraction] 93 % [facility] 02-19-2023 11:33-0400 Body temperature 98.42 [degF] [facility] 02-19-2023 11:33-0400 Diastolic blood pressure 92 mm[Hg] [facility] 02-19-2023 11:33-0400 Mean blood pressure 109 mm[Hg] [facility] 02-19-[facility]23 11:33-0400 Systolic blood pressure 144 mm[Hg] [facility] 02-19-2023 08:18-0400 SaO2% (BldA) [Mass fraction] 93 % [facility] 02-19-2023 08:13-0400 Heart rate 56 /min gloria [facility] 02-19-2023 08:13-0400 Diastolic blood pressure 80 mm[Hg] [facility] 02-19-2023 08:13-0400 Mean blood pressure 94 mm[Hg] [facility] 02-19-2023 08:13-0400 Systolic blood pressure 121 mm[Hg] [facility] 02-19-2023 08:13-0400 Body temperature 97.52 [degF] [facility] 02-19-2023 08:00-0400 Respiratory rate 14 /min [facility] 02-18-2023 20:48-0400 gluc 173 mg/dL [facility] 02-18-2023 16:38-0400 Heart rate 65 /min [facility] 02-18-2023 15:30-0400 Mean blood pressure 101 mm[Hg] [facility] 02-18-2023 15:30-0400 Respiratory rate 24 /min [facility] 02-18-2023 15:21-0400 Mean blood pressure 92 mm[Hg] [facility] 02-18-2023 15:17-0400 Mean blood pressure 92 mm[Hg] [facility] 02-18-2023 08:50-0400 Heart rate 94 /min [facility] 02-18-2023 07:56-0400 Blood Pressure Location [facility] 02-18-2023 07:56-0400 Body temperature 98.6 [degF] [facility] 02-18-2023 07:56-0400 Diastolic blood pressure 62 mm[Hg] [facility] 02-18-2023 07:56-0400 Heart rate 91 /min [facility] 02-18-2023 07:56-0400 Respiratory rate 20 /min [facility] 02-18-2023 07:56-0400 SaO2% (BldA) [Mass fraction] 90 % [facility] 02-18-2023 07:56-0400 Systolic blood pressure 120 mm[Hg] [facility] 12-10-2022 10:02-0400 Blood Pressure Location [facility] 12-10-2022 10:02-0400 Body temperature 98.6 [degF] [facility] 12-10-2022 10:02-0400 Diastolic blood pressure 72 mm[Hg] [facility] 12-10-2022 10:02-0400 Heart rate 89 /min [facility] 12-10-2022 10:02-0400 Respiratory rate 18 /min [facility] 12-10-2022 10:02-0400 SaO2% (BldA) [Mass fraction] 97 % [facility] 12-10-2022 10:02-0400 Systolic blood pressure 136 mm[Hg] [facility] 12-05-2022 12:56-0400 Body weight 154.22 kg Juma Monk MD Work Phone: [facility] 12-05-2022 12:56-0400 Diastolic blood pressure 74 mm[Hg] Juma Monk MD Work Phone: [facility] 12-05-2022 12:56-0400 Heart rate 83 /min Juma Monk MD Work Phone: [facility] 12-05-2022 12:56-0400 Respiratory rate 18 /min Juma Monk MD Work Phone: [facility] 12-05-2022 12:56-0400 SaO2% (BldA) [Mass fraction] 95 % Juma Monk MD Work Phone: [facility] 12-05-2022 12:56-0400 Systolic blood pressure 118 mm[Hg] Juma Monk MD Work Phone: [facility] 12-02-2022 15:22-0400 Diastolic blood pressure 84 mm[Hg] [facility] 12-02-2022 15:22-0400 Heart rate 78 /min [facility] 12-02-2022 15:22-0400 Mean blood pressure 105 mm[Hg] [facility] 12-02-2022 15:22-0400 Respiratory rate 18 /min [facility] 12-02-2022 15:22-0400 SaO2% (BldA) [Mass fraction] 96 % [facility] 12-02-2022 15:22-0400 Systolic blood pressure 148 mm[Hg] [facility] 12-02-2022 12:08-0400 Body temperature 98.78 [degF] [facility] 12-02-2022 12:08-0400 Diastolic blood pressure 90 mm[Hg] [facility] 12-02-2022 12:08-0400 Heart rate 73 /min [facility] 12-02-2022 12:08-0400 Respiratory rate 18 /min [facility] 12-02-2022 12:08-0400 SaO2% (BldA) [Mass fraction] 95 % [facility] 12-02-2022 12:08-0400 Systolic blood pressure 152 mm[Hg] [facility] 11-29-2022 09:53-0400 Diastolic blood pressure 66 mm[Hg] [facility] 11-29-2022 09:53-0400 Heart rate 85 /min [facility] 11-29-2022 09:53-0400 Mean blood pressure 84 mm[Hg] [facility] 11-29-2022 09:53-0400 Systolic blood pressure 121 mm[Hg] [facility] 11-14-2022 13:23-0400 Body height 185.4 cm Juma Monk MD Work Phone: [facility] 11-14-2022 13:23-0400 Body weight 151.5 kg Juma Monk MD Work Phone: [facility] 11-14-2022 13:23-0400 Diastolic blood pressure 63 mm[Hg] Juma Monk MD Work Phone: [facility] 11-14-2022 13:23-0400 Heart rate 73 /min Juma Monk MD Work Phone: [facility] 11-14-2022 13:23-0400 Systolic blood pressure 121 mm[Hg] Juma Monk MD Work Phone: [facility] 11-08-2022 10:04-0400 Blood Pressure Location [facility] 11-08-2022 10:04-0400 Body temperature 97.7 [degF] [facility] 11-08-2022 10:04-0400 Diastolic blood pressure 80 mm[Hg] [facility] 11-08-2022 10:04-0400 Heart rate 72 /min [facility] 11-08-2022 10:04-0400 Respiratory rate 18 /min [facility] 11-08-2022 10:04-0400 SaO2% (BldA) [Mass fraction] 96 % [facility] 11-08-2022 10:04-0400 Systolic blood pressure 130 mm[Hg] [facility] 10-24-2022 08:59-0400 Heart rate 63 /min [facility] 10-24-2022 08:59-0400 SaO2% (BldA) [Mass fraction] 95 % [facility] 10-24-2022 08:59-0400 Diastolic blood pressure 77 mm[Hg] [facility] 10-24-2022 08:59-0400 Mean blood pressure 90 mm[Hg] [facility] 10-24-2022 08:59-0400 Systolic blood pressure 118 mm[Hg] [facility] 10-24-2022 08:48-0400 Diastolic blood pressure 108 mm[Hg] [facility] 10-24-2022 08:48-0400 Heart rate 66 /min [facility] 10-24-2022 08:48-0400 Respiratory rate 18 /min [facility] 10-24-2022 08:48-0400 SaO2% (BldA) [Mass fraction] 92 % [facility] 10-24-2022 08:48-0400 Systolic blood pressure 153 mm[Hg] [facility] 10-24-2022 07:25-0400 Heart rate 72 /min [facility] 10-24-2022 07:25-0400 SaO2% (BldA) [Mass fraction] 93 % [facility] 10-24-2022 07:25-0400 Diastolic blood pressure 67 mm[Hg] [facility] 10-24-2022 07:25-0400 Mean blood pressure 81 mm[Hg] [facility] 10-24-2022 07:25-0400 Systolic blood pressure 109 mm[Hg] [facility] 10-24-2022 07:25-0400 Body temperature 97.7 [degF] [facility] 10-24-2022 07:25-0400 Respiratory rate 16 /min [facility] 09-27-2022 09:21-0500 Diastolic blood pressure 69 mm[Hg] [facility] 09-27-2022 09:21-0500 Heart rate 75 /min [facility] 09-27-2022 09:21-0500 Mean blood pressure 83 mm[Hg] [facility] 09-27-2022 09:21-0500 Systolic blood pressure 111 mm[Hg] [facility] 09-14-2022 10:47-0500 Blood Pressure Location [facility] 09-14-2022 10:47-0500 Body temperature 98.96 [degF] [facility] 09-14-2022 10:47-0500 Diastolic blood pressure 74 mm[Hg] [facility] 09-14-2022 10:47-0500 Heart rate 73 /min [facility] 09-14-2022 10:47-0500 SaO2% (BldA) [Mass fraction] 93 % [facility] 09-14-2022 10:47-0500 Systolic blood pressure 130 mm[Hg] [facility] 08-28-2022 10:42-0500 Blood Pressure Location [facility] 08-28-2022 10:42-0500 Body temperature 97.7 [degF] [facility] 08-28-2022 10:42-0500 Diastolic blood pressure 72 mm[Hg] [facility] 08-28-2022 10:42-0500 Heart rate 74 /min [facility] 08-28-2022 10:42-0500 SaO2% (BldA) [Mass fraction] 94 % [facility] 08-28-2022 10:42-0500 Systolic blood pressure 106 mm[Hg] [facility] 08-23-2022 14:33-0500 Diastolic blood pressure 73 mm[Hg] Pawan Zumbar [facility] 08-23-2022 14:33-0500 Heart rate 67 /min Pawan Zumbar [facility] 08-23-2022 14:33-0500 Mean blood pressure 88 mm[Hg] Pawan Zumbar [facility] 08-23-2022 14:33-0500 Respiratory rate 20 /min Pawan Zumbar [facility] 08-23-2022 14:33-0500 Systolic blood pressure 118 mm[Hg] Pawan Zumbar [facility] 08-23-2022 07:44-0500 Blood Pressure Location [facility] 08-23-2022 07:44-0500 Body temperature 97.88 [degF] [facility] 08-23-2022 07:44-0500 Diastolic blood pressure 78 mm[Hg] [facility] 08-23-2022 07:44-0500 Heart rate 78 /min [facility] 08-23-2022 07:44-0500 Respiratory rate 16 /min [facility] 08-23-2022 07:44-0500 SaO2% (BldA) [Mass fraction] 94 % [facility] 08-23-2022 07:44-0500 Systolic blood pressure 130 mm[Hg] [facility] 08-01-2022 17:02-0500 Blood Pressure Location [facility] 08-01-2022 17:02-0500 Body temperature 97.88 [degF] [facility] 08-01-2022 17:02-0500 Diastolic blood pressure 70 mm[Hg] [facility] 08-01-2022 17:02-0500 Heart rate 85 /min [facility] 08-01-2022 17:02-0500 SaO2% (BldA) [Mass fraction] 92 % [facility] 08-01-2022 17:02-0500 Systolic blood pressure 120 mm[Hg] [facility] 06-22-2022 12:00-0500 Diastolic blood pressure 70 mm[Hg] [facility] 06-22-2022 12:00-0500 Mean blood pressure 90 mm[Hg] [facility] 06-22-2022 12:00-0500 Systolic blood pressure 130 mm[Hg] [facility] 06-22-2022 11:52-0500 Blood Pressure Location [facility] 06-22-2022 11:52-0500 Body temperature 98.24 [degF] [facility] 06-22-2022 11:52-0500 Diastolic blood pressure 98 mm[Hg] [facility] 06-22-2022 11:52-0500 Heart rate 73 /min [facility] 06-22-2022 11:52-0500 SaO2% (BldA) [Mass fraction] 95 % [facility] 06-22-2022 11:52-0500 Systolic blood pressure 140 mm[Hg] [facility] 06-08-2022 13:40-0400 Diastolic blood pressure 76 mm[Hg] Katrina Urena MD Work Phone: [facility] 06-08-2022 13:40-0400 Heart rate 77 /min Katrina Urena MD Work Phone: [facility] 06-08-2022 13:40-0400 Respiratory rate 16 /min Katrina Urena MD Work Phone: [facility] 06-08-2022 13:40-0400 SaO2% (BldA) [Mass fraction] 94 % Katrina Urena MD Work Phone: [facility] 06-08-2022 13:40-0400 Systolic blood pressure 119 mm[Hg] Katrina Urena MD Work Phone: [facility] 06-08-2022 13:03-0400 Body temperature 97.7 [degF] Katrina Urena MD Work Phone: [facility] 06-08-2022 12:10-0400 Body height 185.4 cm Katrina Urena MD Work Phone: [facility] 06-08-2022 12:10-0400 Body weight 144.24 kg Katrina Urena MD Work Phone: [facility] 02-22-2022 09:29-0400 Blood Pressure Location Gonzales DIAZKonstantin [facility] [place] 02-22-2022 09:29-0400 Diastolic blood pressure 76 mm[Hg] Gonzales NILL [facility] [place] 02-22-2022 09:29-0400 Heart rate 78 /min Gonzales NILL [facility] [place] 02-22-2022 09:29-0400 Respiratory rate 16 /min Gonzales NILL [facility] [place] 02-22-2022 09:29-0400 Systolic blood pressure 120 mm[Hg] Gonzales NILL [facility] [place] 02-20-2022 07:43-0400 Blood Pressure Location [facility] 02-20-2022 07:43-0400 Body temperature 97.88 [degF] [facility] 02-20-2022 07:43-0400 Diastolic blood pressure 72 mm[Hg] [facility] 02-20-2022 07:43-0400 Heart rate 81 /min [facility] 02-20-2022 07:43-0400 Respiratory rate 18 /min [facility] 02-20-2022 07:43-0400 SaO2% (BldA) [Mass fraction] 94 % [facility] 02-20-2022 07:43-0400 Systolic blood pressure 124 mm[Hg] [facility] 12-14-2021 15:06-0400 Blood Pressure Location [facility] 12-14-2021 15:06-0400 Body temperature 98.06 [degF] [facility] 12-14-2021 15:06-0400 Diastolic blood pressure 72 mm[Hg] [facility] 12-14-2021 15:06-0400 Heart rate 70 /min [facility] 12-14-2021 15:06-0400 Respiratory rate 18 /min [facility] 12-14-2021 15:06-0400 SaO2% (BldA) [Mass fraction] 93 % [facility] 12-14-2021 15:06-0400 Systolic blood pressure 122 mm[Hg] Mt [facility] Encounters Encounter Date Encounter Type Care Provider Facility Start: 08-26-2023 End: 08-26-2023 Patient encounter procedure Mt Morillo [facility]LE [facility] Start: 08-26-2023 End: 08-26-2023 Well adult monitoring check done [facility] Start: 07-17-2023 End: 07-18-2023 ambulatory Matty Murillo Facility:[facility] Start: 07-17-2023 End: 07-17-2023 Patient encounter procedure Matty Murillo [facility] Start: 07-10-2023 End: 07-11-2023 ambulatory Matty Murillo Facility:[facility] Start: 07-09-2023 End: 07-10-2023 ambulatory Mhd Yaser Al-Marrawi Facility:[facility] Start: 07-09-2023 End: 07-09-2023 Patient encounter procedure Mhd Yaser Al-Marrawi [facility] Start: 07-08-2023 End: 07-09-2023 ambulatory Mhd Yaser Al-Marrawi Facility:[facility] Start: 06-26-2023 End: 06-27-2023 ambulatory [facility] Facility:[facility] Start: 06-26-2023 End: 06-26-2023 Patient encounter procedure Matty Murillo [facility] Start: 06-19-2023 End: 06-19-2023 ambulatory Kalli Copsey Facility:[facility] Start: 06-11-2023 End: 06-12-2023 ambulatory KALLI COPSEY Facility:[facility] Start: 06-11-2023 End: 06-11-2023 Patient encounter procedure KALLI COPSEY [facility] Start: 06-03-2023 End: 06-04-2023 ambulatory [facility] Facility:[facility] Start: 06-03-2023 End: 06-03-2023 Patient encounter procedure [facility] Start: 06-03-2023 End: 06-04-2023 ambulatory [facility] Facility:[facility] Start: 06-03-2023 End: 06-03-2023 Patient encounter procedure [facility] Start: 04-23-2023 End: 04-24-2023 ambulatory Osvaldo Garza Facility:[facility] Start: 04-23-2023 End: 04-23-2023 Patient encounter procedure Bryce Lieberman [facility] Start: 04-10-2023 End: 04-11-2023 ambulatory Mhd Yaser Al-Marrawi Facility:[facility] Start: 04-10-2023 End: 04-10-2023 Patient encounter procedure Mhd Yaser Al-Marrawi [facility] Start: 04-09-2023 End: 04-10-2023 ambulatory Mhd Yaser Al-Marrawi Facility:[facility] Start: 04-09-2023 End: 04-09-2023 Patient encounter procedure Mitch Amaro [facility] Start: 04-05-2023 End: 04-06-2023 ambulatory Mhd Yaser Al-Marrawi Facility:[facility] Start: 04-05-2023 End: 04-05-2023 Patient encounter procedure Mhd Yaser Al-Marrawi [facility] Start: 03-29-2023 End: 03-30-2023 ambulatory Matty Murillo Facility:[facility] Start: 03-29-2023 End: 03-29-2023 Patient encounter procedure Matty Murillo [facility] Start: 03-13-2023 End: 03-13-2023 Emergency department patient visit Jordan Dean Facility:[facility] Start: 03-13-2023 End: 03-13-2023 Emergency department patient visit Jordan Dean [facility] Start: 03-11-2023 End: 03-12-2023 ambulatory Ahmad Mokarstenawi Facility:[facility] Start: 03-11-2023 End: 03-11-2023 Patient encounter procedure Mhd Lizethlink Carolyn [facility] Start: 03-01-2023 End: 03-02-2023 ambulatory Kevin LOBO Facility:[facility] Start: 02-20-2023 End: 03-22-2023 ambulatory [facility] Facility:[id number] Start: 02-18-2023 End: 02-19-2023 Evaluation and management of inpatient Ahmad Moussawi Facility:[facility] Start: 02-18-2023 End: 02-19-2023 ambulatory [facility] Facility:[facility] Start: 02-18-2023 End: 02-19-2023 Evaluation and management of inpatient Ahmad Moanshu [facility] Start: 02-18-2023 End: 02-18-2023 Patient encounter procedure [facility] Start: 02-15-2023 End: 02-16-2023 ambulatory [facility] Facility:[facility] Start: 02-15-2023 End: 02-15-2023 Patient encounter procedure [facility] Start: 01-25-2023 End: 01-26-2023 ambulatory MT [facility]EN Facility:[facility] Start: 01-25-2023 End: 01-25-2023 ambulatory MT A AMBERLYLE Facility:[facility] Start: 01-23-2023 End: 01-24-2023 [facility] Start: 12-17-2022 Telephone encounter Juma dupont MD Work Phone: Rheumatology Comment on above: Results Start: 12-10-2022 End: 12-11-2022 ambulatory Mt A AMBERLYHELENA Facility:[facility] Start: 12-10-2022 End: 12-10-2022 Patient encounter procedure Mt A MAMTA [facility] Start: 12-05-2022 End: 12-05-2022 ambulatory MT A MAMTA Facility:[facility] Start: 12-05-2022 End: 12-05-2022 Subsequent hospital visit by physician Xr [facility] Comment on above: Bilateral low back p ain with sciatica, sciatica laterality unspecified, unspecified chronicity [M54.40] Start: 12-05-2022 End: 12-05-2022 Office outpatient visit 15 minutes Juma Monk MD Work Phone: Rheumatology Comment on above: Bilateral low back p ain with sciatica, sciatica laterality unspecified, unspecified chronicity (Primary Dx) Start: 12-04-2022 Telephone encounter Juma dupont MD Work Phone: Rheumatology Comment on above: Received Outside Med ical Records Start: 12-02-2022 End: 12-02-2022 Emergency department patient visit Arturo Arabella Kim Facility:[facility] Start: 12-02-2022 End: 12-02-2022 Emergency department patient visit [facility] Arabella Alvarez [facility] Start: 11-29-2022 End: 11-30-2022 ambulatory [facility] Facility:[facility] Start: 11-29-2022 End: 11-29-2022 Pain Management Pawan Laureano [facility] Start: 11-19-2022 End: 11-20-2022 ambulatory [facility] Facility:[facility] Start: 11-19-2022 End: 11-19-2022 Patient encounter procedure [facility] Start: 11-14-2022 End: 11-14-2022 ambulatory JUMA MONK Facility:[facility] Start: 11-14-2022 End: 11-14-2022 Office outpatient new 45 minutes Juma Monk MD Work Phone: Rheumatology Comment on above: Chronic right-sided low back pain with right-sided sciatica (Primary Dx) Start: 11-08-2022 End: 11-09-2022 ambulatory [facility] Facility:[facility] Start: 11-08-2022 End: 11-08-2022 Patient encounter procedure [facility] Start: 10-24-2022 End: 10-25-2022 ambulatory Pawan Zumbar Facility:[facility] Start: 10-24-2022 End: 10-24-2022 Pain Management Pawan Zumbar [facility] Start: 09-27-2022 End: 09-28-2022 ambulatory [facility] Facility[facility] Start: 09-27-2022 End: 09-27-2022 Pain Management Pawan Zumbar [facility] Start: 09-18-2022 End: 09-19-2022 ambulatory [facility] Facility[facility] Start: 09-18-2022 End: 09-18-2022 Patient encounter procedure [facility] Start: 09-14-2022 End: 09-15-2022 ambulatory Thao Duncan Facility:[facility] Start: 09-14-2022 End: 09-14-2022 Patient encounter procedure Thao Duncan [facility] Start: 09-10-2022 End: 09-11-2022 ambulatory Pawan Laureano Facility:[facility] Start: 09-10-2022 End: 09-10-2022 Patient encounter procedure Pawan Laureano [facility] Start: 09-04-2022 ambulatory Thao Duncan Facili ty:[facility] Start: 08-28-2022 End: 08-29-2022 ambulatory [facility] Facility:[facility] Start: 08-28-2022 End: 08-28-2022 Patient encounter procedure [facility] Start: 08-28-2022 End: 08-28-2022 Well adult monitoring check done [facility] Start: 08-23-2022 End: 08-24-2022 ambulatory Thao Duncan Facility:[facility] Start: 08-23-2022 End: 08-23-2022 Pain Management Pawan Laureano [facility] Start: 08-23-2022 End: 08-24-2022 ambulatory [facility] Facility:[facility] Start: 08-23-2022 End: 08-23-2022 Patient encounter procedure [facility] Start: 08-01-2022 End: 08-02-2022 ambulatory Thao Nguyenjhony Facility:[facility] Start: 08-01-2022 End: 08-01-2022 Patient encounter procedure Thao Duncan [facility] Start: 06-22-2022 End: 06-22-2022 Patient encounter procedure Thao Duncan [facility] Start: 06-08-2022 End: 06-08-2022 ambulatory [employer] Facility:[facility] Start: 06-08-2022 End: 06-08-2022 Subsequent hospital visit by physician Katrina Urena MD Work Phone: Gastroenterology Comment on above: 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] Start: 04-26-2022 Telephone encounter Marguerite Potts RNemployee services manager Comment on above: Appointment Confirma tion Start: 04-09-2022 End: 04-10-2022 ambulatory [employer] Facility:[facility] Start: 04-09-2022 End: 04-10-2022 ambulatory [employer] Facility:[facility] Start: 04-09-2022 End: 04-09-2022 Patient encounter procedure Katrina Urena MD Work Phone: Gastroenterology Comment on above: Mccarty's esophagus with dysplasia (Primary Dx) Start: 02-22-2022 End: 02-22-2022 Patient encounter procedure Gonzales ROBBINS [facility] [place] Start: 02-20-2022 End: 02-20-2022 Patient encounter procedure [facility] Start: 12-14-2021 End: 12-14-2021 Patient encounter procedure [facility] Start: 03-18-2021 End: 12-06-2021 Recurring [facility] Procedures Date Procedure Procedure Detail Performing Clinician Start: 12-05-2022 Radiologic examination sacroiliac jnts <3 views Juma Monk MD Work Phone: Start: 10-24-2022 Epidural injection of lumbar spine using fluoroscopic guidance Pawan Laureano Comment on above: L5/S1 NOEMI-100% relief of pain in sacroi liac , but states pain above still. 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 Work Phone: Start: 03-15-2022 Esophagogastroduodenoscopy gastric outlet reduction Thao Duncan Start: 08-12-2018 Esophagogastroduodenoscopy Gonzales ROBBINS Start: 12-27-2016 Myringotomy and insertion of tympanic ventilation tube [facility] Start: 01-19-2015 right knee arthroscopy with partial medial and lateral meniscectomy, chondroplasty medial compartment [facility] Colonoscopy Gonzales ROBBINS rotator cuff left shoulder 1 [facility] Comment on above: 2001 rotator cuff left shoulder 2 Pawan Laureano Comment on above: 2001 Skin (tissue) specimen (specimen) Thao Duncan Sphincterotomy anal division sphincter spx [facility] Plan of Treatment Date Care Activity Detail Author Start: 04-09-2025 DIABETES SCREEN [facility] Start: 09-05-2023 ambulatory Facility:[facility] Start: 08-26-2023 ambulatory Facility:[facility] Start: 04-12-2023 Influenza vaccination INFLUENZA (#1) [facility] Start: 12-17-2022 End: 02-16-2023 C reactive protein [Mass/volume] in Serum or Plasma C-REACTIVE PROTEIN (CRP) Lab Routine Sacrococcygeal disorders, not elsewhere classified Expected: 12/17/2022, Expires: 02/16/2023 [facility] Work Phone: Comment on above: Expected: 12/17/2022 , Expires: 02/16/2023 Start: 12-17-2022 End: 02-16-2023 Erythrocyte sedimentation rate SED RATE WESTERGREN Lab Routine Sacrococcygeal disorders, not elsewhere classified Expected: 12/17/2022, Expires: 02/16/2023 [facility] Work Phone: Comment on above: Expected: 12/17/2022 , Expires: 02/16/2023 Start: 09-13-2022 COVID-19 VACCINE (5 - Moderna series) COVID-19 VACCINE (5 - Moderna series) [facility] Start: 08-12-2022 ADVANCE DIRECTIVE DISCUSSION ADVANCE DIRECTIVE DISCUSSION [facility] Start: 08-12-2022 DEPRESSION ASSESSMENT DEPRESSION ASS ESSMENT [facility] Start: 04-12-2022 Influenza vaccination INFLUENZA (#1) [facility] Start: 04-09-2022 End: 06-09-2022 Comprehensive metabolic 2000 panel - Serum or Plasma [facility] Work Phone: Comment on above: Expected: 04/09/2022 , Expires: 06/09/2022 Start: 10-12-2021 COVID-19 VACCINE (4 - Booster for Moderna series) COVID-19 VACCINE (4 - Booster for Moderna series) [facility] Start: 08-12-2021 ADVANCE DIRECTIVE DISCUSSION ADVANCE DIRECTIVE DISCUSSION [facility] Start: 08-12-2021 DEPRESSION ASSESSMENT DEPRESSION ASS ESSMENT [facility] Start: 01-27-2013 PNEUMOCOCCAL: 65+ (1 - PCV) PNEUMOCOCCAL: 65+ (1 - PCV) [facility] Start: 01-27-1998 SHINGRIX VACCINE (1 of 2) SHINGRIX VACCINE (1 of 2) [facility] Start: 01-27-1993 COLOGUARD (FIT-DNA) COLOGUARD (FIT-D NA) [facility] Start: 01-27-1993 Colonoscopy COLONOSCOPY [facility] Start: 01-27-1993 COLORECTAL CANCER SCREENING COLORECTAL CANCER SCREENING [facility] Start: 01-27-[address] [facility] Start: 01-27-1993 DIABETES SCREEN DIABETES SCREEN [facility] Start: 01-27-1993 FECAL OCCULT BLOOD FECAL OCCULT BLOO D [facility] Start: 01-27-1993 SIGMOIDOSCOPY SIGMOIDOSCOPY [facility] Start: 01-27-1983 LIPID SCREEN LIPID SCREEN [facility] Start: 01-27-1967 Urine microalbumin profile DTAP,TDAP,TD (1 - Tdap) [facility] Start: 01-27-1966 ANNUAL PCP TEAM GERIATRIC NURSE CRISTO DISEASE VISIT ANNUAL PCP TEAM CHRONIC DISEASE VISIT [facility] Start: 01-27-1966 Hepatitis B surface antibody level LDL CHOLESTEROL [facility] Start: 01-27-1966 HEPATITIS C SCREENING HEPATITIS C SC REENING [facility] Start: 1960 Adult depression screening assessment DEPRESSION SCREENING [facility] Start: 01-27-1958 3 comp foot exam completed DIABETIC FOOT EXAM [facility] Start: 01-27-1958 Hepatitis B screening URINE AL BUMIN:CREATININE RATIO [facility] Start: 01-27-1958 Hepatitis C antibody , confirmatory test DILATED RETINAL EXAM [facility] Start: 01-27-1954 PNEUMOCOCCAL: 65+ (1 - PCV) PNEUMOCOCCAL: 65+ (1 - PCV) [facility] Start: 01-27-1953 Hemoglobin A1c/Hemoglobin.total in Blood HBA1C [facility] End: 04-09-2023 EGD DIAGNOSTIC EGD DIAGNOSTIC Endoscopy Routine Mccarty's esophagus with dysplasia 1 Occurrences starting 04/09/2022 until 04/09/2023 [facility] Work Phone: Comment on above: 1 Occurrences starti ng 04/09/2022 until 04/09/2023 End: 01-16-2024 Mri pelvis w/o contrast material MRI SACRUM/COCCYX WO IVCON Radiology Routine Sacrococcygeal disorders, not elsewhere classified 1 Occurrences starting 12/17/2022 until 01/16/2024 [facility] Work Phone: Comment on above: 1 Occurrences starti ng 12/17/2022 until 01/16/2024 End: 01-05-2024 Radiologic examination sacroiliac jnts <3 views XR SACROILIAC JOINTS 2V AP PELVIS/FERGUESON Radiology Routine Bilateral low back pain with sciatica, sciatica laterality unspecified, unspecified chronicity 1 Occurrences starting 12/05/2022 until 01/05/2024 [facility] Work Phone: Comment on above: 1 Occurrences starti ng 12/05/2022 until 01/05/2024 Radiologic examinati on sacroiliac jnts <3 views XR SACROILIAC JOINTS 2V AP PELVIS/FERGUESON Radiology Routine Bilateral low back pain with sciatica, sciatica laterality unspecified, unspecified chronicity 12/05/2022 1:53 PM EDT [facility] Work Phone: SURGICAL PATHOLOGY [facility] Work Phone: Comment on above: Release Upon [place] camacho for 1 Occurrences starting 06/08/2022, 1 completed [facility] Immunizations Immunization Date Immunization Notes Care Provider Fa [facility] 06-29-2023 canakinumab [facility] Carolyn [facility] Comment on above: Result Comment: RSV Vaccine [facility] 05-16-2023 influenza virus vacc ine, unspecified formulation [facility] 05-16-2023 SARS-CoV-2 (COVID-19 ) mRNA-1273 vaccine [facility] Comment on above: Result Comment: give n [facility] 05-13-2022 influenza virus vacc ine, unspecified formulation [facility] 05-13-2022 SARS-CoV-2 (COVID-19 ) mRNA-1273 vaccine [facility] 06-14-2021 COVID-19, mRNA, LNP- S, PF, 100 mcg or 50 mcg dose; Translations: [SARS-CoV-2 (COVID-19) mRNA-1273 vaccine] [facility] 05-19-2021 influenza virus vacc ine, unspecified formulation [facility] 01-09-2021 tetanus toxoid, redu hermilo diphtheria toxoid, and acellular pertussis vaccine, adsorbed; Translations: [Adacel (Tdap)] [facility] 10-19-2020 COVID-19, mRNA, LNP- S, PF, 100 mcg or 50 mcg dose; Translations: [Moderna COVID-19 Vaccine] [facility] Comment on above: Reason for Medicatio n: Other (see comment) 09-21-2020 COVID-19, mRNA, LNP- S, PF, 100 mcg or 50 mcg dose; Translations: [Moderna COVID-19 Vaccine] [facility] Comment on above: Reason for Medicatio n: Other (see comment) 05-17-2020 influenza virus vacc ine, unspecified formulation [facility] 06-11-2019 influenza virus vacc ine, live, attenuated, for intranasal use [facility] Comment on above: Result Comment: done at [facility] in [place] 06-01-2019 influenza virus vacc ine, unspecified formulation [facility] 05-29-2019 influenza virus vacc ine, unspecified formulation [facility] 07-22-2018 pneumococcal polysaccharide vaccine, 23 valent [facility] 07-22-2017 pneumococcal conjuga te vaccine, 13 valent [facility] 05-15-2016 influenza virus vacc ine, unspecified formulation [facility] Primary Care 06-23-2014 tetanus toxoid, redu hermilo diphtheria toxoid, and acellular pertussis vaccine, adsorbed [facility] Payers Date Payer Category Payer Self-pay 2015 Medicare [id number] 2015 Private Health Insurance [employer] A ETNA MEDICARE SUPPLEMENT [id number] 2015-Present [phone] [address] [address] [place] [address] Indemnity [id number] 2013 Medicare MEDICARE MEDICAR E A AND B [id number] 2013-Present [phone] [address] [address] [place] [address] Medicare [id number] 2013 Medicare [id number] 1948 Unknown [id number] 2.16.840.1.969830.3.579 .2. 1948 Unknown [id number] 2.840.1.139430.3.579 .2 1948 Unknown [id number] 2.16.840.1.575779.3.579 .2. 1948 Unknown [id number] 2.16.840.1.266264.3.579 .2. 1948 Unknown [id number] 2.16.840.1.346643.3.579 .2. 1948 Unknown [id number] 2.16.840.1.811208.3.579 .2 1948 Unknown [id number] 2.16.840.1.601229.3.579 .2.72 1948 Unknown [id number] 2.16.840.1.430208.3.579 .2. 1948 Unknown [id number] 2.16.840.1.455944.3.579 .2. 1948 Unknown [id number] 2.16.840.1.160051.3.579 .2. 1948 Unknown [id number] 2.16.840.1.182288.3.579 .2. 1948 Unknown [id number] 2.16.840.1.134868.3.579 .2. 1948 Unknown [id number] 2.16.840.1.558689.3.579 .2. 1948 Unknown [id number] 2.16.840.1.216454.3.579 .2 1948 Unknown [id number] 2.16.840.1.735347.3.579 .2. 1948 Unknown [id number] 2.16.840.1.301743.3.579 .2. 1948 Unknown [id number] 2.16.840.1.361579.3.579 .2. 1948 Unknown [id number] 2.16.840.1.259743.3.579 .2. 1948 Unknown [id number] 2.16.840.1.693950.3.579 .2. 1948 Unknown [id number] 2.16.840.1.907515.3.579 .2. 1948 Unknown [id number] 2.16.840.1.784117.3.579 .2. 1948 Unknown [id number] 2.16.840.1.110425.3.579 .2.72 1948 Unknown [id number] 2.16.840.1.589418.3.579 .2. 1948 Unknown [id number] 2.16.840.1.434657.3.579 .2. 1948 Unknown [id number] 2.16.840.1.420410.3.579 .2. 1948 Unknown [id number] 2.16.840.1.045568.3.579 .2. 1948 Unknown [id number] 2.16.840.1.939842.3.579 .2 1948 Unknown [id number] 2.16.840.1.549391.3.579 .2 1948 Unknown [id number] 2.16.840.1.641606.3.579 .2 1948 Unknown [id number] 2.16.840.1.712507.3.579 .2 1948 Unknown [id number] 2.16.840.1.648998.3.579 .2 1948 Unknown [id number] 2.16.840.1.243142.3.579 .2 1948 Unknown [id number] 2.16.840.1.836980.3.579 .2 1948 Unknown [id number] 2.16.840.1.015848.3.579 .2. 1948 Unknown [id number] 2.16.840.1.391222.3.579 .2 1948 Unknown [id number] 2.16.840.1.435113.3.579 .2 1948 Unknown [id number] 2.16.840.1.202815.3.579 .2 1948 Unknown [id number] 2.16.840.1.684115.3.579 .2.727 Unknown [id number] 2.16.840.1.457202.3.579 .2.531 Social History Date Type Detail Facility Start: 09-18-2021 End: 08-26-2023 Tobacco smoking status Never smoked tobacco (finding) [facility] Comment on above: denies denies use Tobacco smoking status Never [facility] Comment on above: denies denies use Start: 09-09-2022 End: 12-05-2022 Sex Assigned At Male [facility] Tobacco smoking status NHIS Tobacco smoking consumption unknown [facility] Start: 1950 Sex Assigned At Not on file C [facility] Start: 03-30-2022 End: 04-10-2022 Exposure to SARS-CoV-2 (event) Not sure [facility] Work Phone: Start: 06-08-2022 Tobacco use and exposure Smokeless tobacco non-user [facility] Start: 06-08-2022 End: 12-05-2022 Alcohol intake Current drinker of alcohol (finding) [facility] Start: 06-08-2022 Alcohol Comment occasional [facility] Tobacco [facility] Comment on above: Denies Tobacco smoking status No Smoking Status Entered [facility] Start: 09-09-2022 End: 12-05-2022 History of Social function [facility] Functional Status Date Assessment Result Facility 08-26-2023 Functional Status N/A [facility] 07-17-2023 Functional Status No [facility] 06-26-2023 Functional Status No [facility] 06-03-2023 Functional Status N/A [facility] 03-13-2023 Functional Status N/A [facility] 02-18-2023 Functional Status No [facility] 02-18-2023 Functional Status N/A [facility] 12-10-2022 Functional Status N/A [facility] 12-02-2022 Functional Status N/A [facility] 11-29-2022 Functional Status N/A [facility] 11-08-2022 Functional Status N/A [facility] 09-27-2022 Functional Status N/A [facility] 09-14-2022 Functional Status N/A [facility] 08-28-2022 Functional Status N/A [facility] 08-23-2022 Functional Status N/A [facility] 08-23-2022 Functional Status N/A [facility] 08-01-2022 Functional Status N/A [facility] 06-22-2022 Functional Status N/A [facility] 02-22-2022 Functional Status N/A [facility] [place] 02-20-2022 Functional Status N/A [facility] Clinical Notes 02-20-2022 to 08-26-2023 Note Date & Type Note Facility 08-26-2023 Hospital Discharg e instructions Patient Education 08/26/2023 10:26:10 Fall Prevention in the Home, Adult Fall Prevention in the Home, Adult Falls can cause injuries and affect people of all ages. There are many simple things that you can do to make your home safe and to help prevent falls. Ask for help when making these changes, if needed. What actions can I take to prevent falls? General instructions Use good lighting in all rooms. Replace any light bulbs that burn out, turn on lights if it is dark, and use night-lights. Place frequently used items in ymxu-vy-iqdon places. Lower the shelves around your home if necessary. Set up furniture so that there are clear paths around it. Avoid moving your furniture around. Remove throw rugs and other tripping hazards from the floor. Avoid walking on wet floors. Fix any uneven floor surfaces. Add color or contrast paint or tape to grab bars and handrails in your home. Place contrasting color strips on the first and last steps of staircases. When you use a stepladder, make sure that it is completely opened and that the sides and supports are firmly locked. Have someone hold the ladder while you are using it. Do not climb a closed stepladder. Know where your pets are when moving through your home. What can I do in the bathroom? Keep the floor dry. Immediately clean up any water that is on the floor. Remove soap buildup in the tub or shower regularly. Use nonskid mats or decals on the floor of the tub or shower. Attach bath mats securely with double-sided, nonslip rug tape. If you need to sit down while you are in the shower, use a plastic, nonslip stool. Install grab bars by the toilet and in the tub and shower. Do not use towel bars as grab bars. What can I do in the bedroom? Make sure that a bedside light is easy to reach. Do not use oversized bedding that reaches the floor. Have a firm chair that has side arms to use for getting dressed. What can I do in the kitchen? Clean up any spills right away. If you need to reach for something above you, use a sturdy step stool that has a grab bar. Keep electrical cables out of the way. Do not use floor omani or wax that makes floors slippery. If you must use wax, make sure that it is non-skid floor wax. What can I do with my stairs? Do not leave any items on the stairs. Make sure that you have a light switch at the top and the bottom of the stairs. Have them installed if you do not have them. Make sure that there are handrails on both sides of the stairs. Fix handrails that are broken or loose. Make sure that handrails are as long as the staircases. Install non-slip stair treads on all stairs in your home. Avoid having throw rugs at the top or bottom of stairs, or secure the rugs with carpet tape to prevent them from moving. Choose a carpet design that does not hide the edge of steps on the stairs. Check any carpeting to make sure that it is firmly attached to the stairs. Fix any carpet that is loose or worn. What can I do on the outside of my home? Use bright outdoor lighting. Regularly repair the edges of walkways and driveways and fix any cracks. Remove high doorway thresholds. Trim any shrubbery on the main path into your home. Regularly check that handrails are securely fastened and in good repair. Both sides of all steps should have handrails. Install guardrails along the edges of any raised decks or porches. Clear walkways of debris and clutter, including tools and rocks. Have leaves, snow, and ice cleared regularly. Use sand or salt on walkways during winter months. In the garage, clean up any spills right away, including grease or oil spills. What other actions can I take? Wear closed-toe shoes that fit well and support your feet. Wear shoes that have rubber soles or low heels. Use mobility aids as needed, such as canes, walkers, scooters, and crutches. Review your medicines with your health care provider. Some medicines can cause dizziness or changes in blood pressure, which increase your risk of falling. Talk with your health care provider about other ways that you can decrease your risk of falls. This may include working with a physical therapist or national sales trainer to improve your strength, balance, and endurance. Where to find more information Centers for Disease Control and Prevention, [employer]: www.cdc.gov National [place] on Aging: www.vamsi.nih.gov Contact a health care provider if: You are afraid of falling at home. You feel weak, drowsy, or dizzy at home. You fall at home. Summary There are many simple things that you can do to make your home safe and to help prevent falls. Ways to make your home safe include removing tripping hazards and installing grab bars in the bathroom. Ask for help when making these changes in your home. This information is not intended to replace advice given to you by your health care provider. Make sure you discuss any questions you have with your health care provider. Document Revised: 04/30/2022 Document Reviewed: 03/01/2021 [employer] Patient Education 2022 [employer]. 08/26/2023 10:25:59 Hypertension, Adult Hypertension, Adult High blood pressure (hypertension) is when the force of blood pumping through the arteries is too strong. The arteries are the blood vessels that carry blood from the heart throughout the body. Hypertension forces the heart to work harder to pump blood and may cause arteries to become narrow or stiff. Untreated or uncontrolled hypertension can lead to a heart attack, heart failure, a stroke, kidney disease, and other problems. A blood pressure reading consists of a higher number over a lower number. Ideally, your blood pressure should be below 120/80. The first ( top ) number is called the systolic pressure. It is a measure of the pressure in your arteries as your heart beats. The second ( bottom ) number is called the diastolic pressure. It is a measure of the pressure in your arteries as the heart relaxes. What are the causes? The exact cause of this condition is not known. There are some conditions that result in high blood pressure. What increases the risk? Certain factors may make you more likely to develop high blood pressure. Some of these risk factors are under your control, including: Smoking. Not getting enough exercise or physical activity. Being overweight. Having too much fat, sugar, calories, or salt (sodium) in your diet. Drinking too much alcohol. Other risk factors include: Having a personal history of heart disease, diabetes, high cholesterol, or kidney disease. Stress. Having a family history of high blood pressure and high cholesterol. Having obstructive sleep apnea. Age. The risk increases with age. What are the signs or symptoms? High blood pressure may not cause symptoms. Very high blood pressure (hypertensive crisis) may cause: Headache. Fast or irregular heartbeats (palpitations). Shortness of breath. Nosebleed. Nausea and vomiting. Vision changes. Severe chest pain, dizziness, and seizures. How is this diagnosed? This condition is diagnosed by measuring your blood pressure while you are seated, with your arm resting on a flat surface, your legs uncrossed, and your feet flat on the floor. The cuff of the blood pressure monitor will be placed directly against the skin of your upper arm at the level of your heart. Blood pressure should be measured at least twice using the same arm. Certain conditions can cause a difference in blood pressure between your right and left arms. If you have a high blood pressure reading during one visit or you have normal blood pressure with other risk factors, you may be asked to: Return on a different day to have your blood pressure checked again. Monitor your blood pressure at home for 1 week or longer. If you are diagnosed with hypertension, you may have other blood or imaging tests to help your health care provider understand your overall risk for other conditions. How is this treated? This condition is treated by making healthy lifestyle changes, such as eating healthy foods, exercising more, and reducing your alcohol intake. You may be referred for counseling on a healthy diet and physical activity. Your health care provider may prescribe medicine if lifestyle changes are not enough to get your blood pressure under control and if: Your systolic blood pressure is above 130. Your diastolic blood pressure is above 80. Your personal target blood pressure may vary depending on your medical conditions, your age, and other factors. Follow these instructions at home: Eating and drinking Eat a diet that is high in fiber and potassium, and low in sodium, added sugar, and fat. An example of this eating plan is called the DASH diet. DASH stands for Dietary Approaches to Stop Hypertension. To eat this way: ?Eat plenty of fresh fruits and vegetables. Try to fill one half of your plate at each meal with fruits and vegetables. ?Eat whole grains, such as whole-wheat pasta, brown rice, or whole-grain bread. Fill about one fourth of your plate with whole grains. ?Eat or drink low-fat dairy products, such as skim milk or low-fat yogurt. ?Avoid fatty cuts of meat, processed or cured meats, and poultry with skin. Fill about one fourth of your plate with lean proteins, such as fish, chicken without skin, beans, eggs, or tofu. ?Avoid pre-made and processed foods. These tend to be higher in sodium, added sugar, and fat. Reduce your daily sodium intake. Many people with hypertension should eat less than 1,500 mg of sodium a day. Do not drink alcohol if: ?Your health care provider tells you not to drink. ?You are , may be , or are planning to become . If you drink alcohol: ?Limit how much you have to: ?0 1 drink a day for women. ?0 2 drinks a day for men. ?Know how much alcohol is in your drink. In the [place] one drink equals one 12 oz bottle of beer (355 mL), one 5 oz glass of wine (148 mL), or one 1 oz glass of hard liquor (44 mL). Lifestyle Work with your health care provider to maintain a healthy body weight or to lose weight. Ask what an ideal weight is for you. Get at least 30 minutes of exercise that causes your heart to beat faster (aerobic exercise) most days of the week. Activities may include walking, swimming, or biking. Include exercise to strengthen your muscles (resistance exercise), such as Pilates or lifting weights, as part of your weekly exercise routine. Try to do these types of exercises for 30 minutes at least 3 days a week. Do not use any products that contain nicotine or tobacco. These products include cigarettes, chewing tobacco, and vaping devices, such as e-cigarettes. If you need help quitting, ask your health care provider. Monitor your blood pressure at home as told by your health care provider. Keep all follow-up visits. This is important. Medicines Take qguo-heh-gokmpxw and prescription medicines only as told by your health care provider. Follow directions carefully. Blood pressure medicines must be taken as prescribed. Do not skip doses of blood pressure medicine. Doing this puts you at risk for problems and can make the medicine less effective. Ask your health care provider about side effects or reactions to medicines that you should watch for. Contact a health care provider if you: Think you are having a reaction to a medicine you are taking. Have headaches that keep coming back (recurring). Feel dizzy. Have swelling in your ankles. Have trouble with your vision. Get help right away if you: Develop a severe headache or confusion. Have unusual weakness or numbness. Feel faint. Have severe pain in your chest or abdomen. Vomit repeatedly. Have trouble breathing. These symptoms may be an emergency. Get help right away. Call 911. Do not wait to see if the symptoms will go away. Do not drive yourself to the hospital. Summary Hypertension is when the force of blood pumping through your arteries is too strong. If this condition is not controlled, it may put you at risk for serious complications. Your personal target blood pressure may vary depending on your medical conditions, your age, and other factors. For most people, a normal blood pressure is less than 120/80. Hypertension is treated with lifestyle changes, medicines, or a combination of both. Lifestyle changes include losing weight, eating a healthy, low-sodium diet, exercising more, and limiting alcohol. This information is not intended to replace advice given to you by your health care provider. Make sure you discuss any questions you have with your health care provider. Document Revised: 06/05/2022 Document Reviewed: 06/05/2022 [employer] Patient Education 2022 [employer]. 08/26/2023 10:25:58 Diabetes Mellitus and Exercise Diabetes Mellitus and Exercise Exercising regularly is important for overall health, especially for people who have diabetes mellitus. Exercising is not only about losing weight. It has many other health benefits, such as increasing muscle strength and bone density and reducing body fat and stress. This leads to improved fitness, flexibility, and endurance, all of which result in better overall health. What are the benefits of exercise if I have diabetes? Exercise has many benefits for people with diabetes. They include: Helping to lower and control blood sugar (glucose). Helping the body to respond better to the hormone insulin by improving insulin sensitivity. Reducing how much insulin the body needs. Lowering the risk for heart disease by: ?Lowering bad cholesterol and triglyceride levels. ?Increasing good cholesterol levels. ?Lowering blood pressure. ?Lowering blood glucose levels. What is my activity plan? Your health care provider or certified veterinary technician can help you make a plan for the type and frequency of exercise that works for you. This is called your activity plan. Be sure to: Get at least 150 minutes of medium-intensity or high-intensity exercise each week. Exercises may include brisk walking, biking, or water aerobics. Do stretching and strengthening exercises, such as yoga or weight lifting, at least 2 times a week. Spread out your activity over at least 3 days of the week. Get some form of physical activity each day. ?Do not go more than 2 days in a row without some kind of physical activity. ?Avoid being inactive for more than 90 minutes at a time. Take frequent breaks to walk or stretch. Choose exercises or activities that you enjoy. Set realistic goals. Start slowly and gradually increase your exercise intensity over time. How do I manage my diabetes during exercise? Monitor your blood glucose Check your blood glucose before and after exercising. If your blood glucose is: ?240 mg/dL (13.3 mmol/L) or higher before you exercise, check your urine for ketones. These are chemicals created by the liver. If you have ketones in your urine, do not exercise until your blood glucose returns to normal. ?100 mg/dL (5.6 mmol/L) or lower, eat a snack containing 15 20 grams of carbohydrate. Check your blood glucose 15 minutes after the snack to make sure that your glucose level is above 100 mg/dL (5.6 mmol/L) before you start your exercise. Know the symptoms of low blood glucose (hypoglycemia) and how to treat it. Your risk for hypoglycemia increases during and after exercise. Follow these tips and your health care provider's instructions Keep a carbohydrate snack that is fast-acting for use before, during, and after exercise to help prevent or treat hypoglycemia. Avoid injecting insulin into areas of the body that are going to be exercised. For example, avoid injecting insulin into: ?Your arms, when you are about to play tennis. ?Your legs, when you are about to go jogging. Keep records of your exercise habits. Doing this can help you and your health care provider adjust your diabetes management plan as needed. Write down: ?Food that you eat before and after you exercise. ?Blood glucose levels before and after you exercise. ?The type and amount of exercise you have done. Work with your health care provider when you start a new exercise or activity. He or she may need to: ?Make sure that the activity is safe for you. ?Adjust your insulin, other medicines, and food that you eat. Drink plenty of water while you exercise. This prevents loss of water (dehydration) and problems caused by a lot of heat in the body (heat stroke). Where to find more information [place] [employer]: www.diabetes.org Summary Exercising regularly is important for overall health, especially for people who have diabetes mellitus. Exercising has many health benefits. It increases muscle strength and bone density and reduces body fat and stress. It also lowers and controls blood glucose. Your health care provider or certified veterinary technician can help you make an activity plan for the type and frequency of exercise that works for you. Work with your health care provider to make sure any new activity is safe for you. Also work with your health care provider to adjust your insulin, other medicines, and the food you eat. This information is not intended to replace advice given to you by your health care provider. Make sure you discuss any questions you have with your health care provider. Document Revised: 04/25/2020 Document Reviewed: 04/25/2020 [employer] Patient Education 2022 [employer]. 08/26/2023 10:25:57 DASH Eating Plan DASH Eating Plan DASH stands for Dietary Approaches to Stop Hypertension. The DASH eating plan is a healthy eating plan that has been shown to: Reduce high blood pressure (hypertension). Reduce your risk for type 2 diabetes, heart disease, and stroke. Help with weight loss. What are tips for following this plan? Reading food labels Check food labels for the amount of salt (sodium) per serving. Choose foods with less than 5 percent of the Daily Value of sodium. Generally, foods with less than 300 milligrams (mg) of sodium per serving fit into this eating plan. To find whole grains, look for the word whole as the first word in the ingredient list. Shopping Buy products labeled as low-sodium or no salt added. Buy fresh foods. Avoid canned foods and pre-made or frozen meals. Cooking Avoid adding salt when cooking. Use salt-free seasonings or herbs instead of table salt or sea salt. Check with your health care provider or pharmacist before using salt substitutes. Do not rodriguez foods. Cook foods using healthy methods such as baking, boiling, grilling, roasting, and broiling instead. Cook with heart-healthy oils, such as olive, canola, avocado, soybean, or sunflower oil. Meal planning Eat a balanced diet that includes: ?4 or more servings of fruits and 4 or more servings of vegetables each day. Try to fill one-half of your plate with fruits and vegetables. ?6 8 servings of whole grains each day. ?Less than 6 oz (170 g) of lean meat, poultry, or fish each day. A 3-oz (85-g) serving of meat is about the same size as a deck of cards. One egg equals 1 oz (28 g). ?2 3 servings of low-fat dairy each day. One serving is 1 cup (237 mL). ?1 serving of nuts, seeds, or beans 5 times each week. ?2 3 servings of heart-healthy fats. Healthy fats called omega-3 fatty acids are found in foods such as walnuts, flaxseeds, fortified milks, and eggs. These fats are also found in cold-water fish, such as sardines, salmon, and mackerel. Limit how much you eat of: ?Canned or prepackaged foods. ?Food that is high in trans fat, such as some fried foods. ?Food that is high in saturated fat, such as fatty meat. ?Desserts and other sweets, sugary drinks, and other foods with added sugar. ?Full-fat dairy products. Do not salt foods before eating. Do not eat more than 4 egg yolks a week. Try to eat at least 2 vegetarian meals a week. Eat more home-cooked food and less restaurant, buffet, and fast food. Lifestyle When eating at a restaurant, ask that your food be prepared with less salt or no salt, if possible. If you drink alcohol: ?Limit how much you use to: ?0 1 drink a day for women who are not . ?0 2 drinks a day for men. ?Be aware of how much alcohol is in your drink. In the [place] one drink equals one 12 oz bottle of beer (355 mL), one 5 oz glass of wine (148 mL), or one 1 oz glass of hard liquor (44 mL). General information Avoid eating more than 2,300 mg of salt a day. If you have hypertension, you may need to reduce your sodium intake to 1,500 mg a day. Work with your health care provider to maintain a healthy body weight or to lose weight. Ask what an ideal weight is for you. Get at least 30 minutes of exercise that causes your heart to beat faster (aerobic exercise) most days of the week. Activities may include walking, swimming, or biking. Work with your health care provider or dietitian to adjust your eating plan to your individual calorie needs. What foods should I eat? Fruits All fresh, dried, or frozen fruit. Canned fruit in natural juice (without added sugar). Vegetables Fresh or frozen vegetables (raw, steamed, roasted, or grilled). Low-sodium or reduced-sodium tomato and vegetable juice. Low-sodium or reduced-sodium tomato sauce and tomato paste. Low-sodium or reduced-sodium canned vegetables. Grains Whole-grain or whole-wheat bread. Whole-grain or whole-wheat pasta. Brown rice. Oatmeal. Quinoa. Bulgur. Whole-grain and low-sodium cereals. Karina bread. Low-fat, low-sodium crackers. Whole-wheat flour tortillas. Meats and other proteins Skinless chicken or turkey. Ground chicken or turkey. Pork with fat trimmed off. Fish and seafood. Egg whites. Dried beans, peas, or lentils. Unsalted nuts, nut butters, and seeds. Unsalted canned beans. Lean cuts of beef with fat trimmed off. Low-sodium, lean precooked or cured meat, such as sausages or meat loaves. Dairy Low-fat (1%) or fat-free (skim) milk. Reduced-fat, low-fat, or fat-free cheeses. Nonfat, low-sodium ricotta or cottage cheese. Low-fat or nonfat yogurt. Low-fat, low-sodium cheese. Fats and oils Soft margarine without trans fats. Vegetable oil. Reduced-fat, low-fat, or light mayonnaise and salad dressings (reduced-sodium). Canola, safflower, olive, avocado, soybean, and sunflower oils. Avocado. Seasonings and condiments Herbs. Spices. Seasoning mixes without salt. Other foods Unsalted popcorn and pretzels. Fat-free sweets. The items listed above may not be a complete list of foods and beverages you can eat. Contact a dietitian for more information. What foods should I avoid? Fruits Canned fruit in a light or heavy syrup. Fried fruit. Fruit in cream or butter sauce. Vegetables Creamed or fried vegetables. Vegetables in a cheese sauce. Regular canned vegetables (not low-sodium or reduced-sodium). Regular canned tomato sauce and paste (not low-sodium or reduced-sodium). Regular tomato and vegetable juice (not low-sodium or reduced-sodium). Pickles. Olives. Grains Baked goods made with fat, such as croissants, muffins, or some breads. Dry pasta or rice meal packs. Meats and other proteins Fatty cuts of meat. Ribs. Fried meat. Barnhart. Bologna, salami, and other precooked or cured meats, such as sausages or meat loaves. Fat from the back of a pig (fatback). Bratwurst. Salted nuts and seeds. Canned beans with added salt. Canned or smoked fish. Whole eggs or egg yolks. Chicken or turkey with skin. Dairy Whole or 2% milk, cream, and mutk-ero-qsob. Whole or full-fat cream cheese. Whole-fat or sweetened yogurt. Full-fat cheese. Nondairy creamers. Whipped toppings. Processed cheese and cheese spreads. Fats and oils Butter. Stick margarine. Lard. Shortening. Ghee. Barnhart fat. Tropical oils, such as coconut, palm kernel, or palm oil. Seasonings and condiments Onion salt, garlic salt, seasoned salt, table salt, and sea salt. Worcestershire sauce. Tartar sauce. Barbecue sauce. Teriyaki sauce. Soy sauce, including reduced-sodium. Steak sauce. Canned and packaged gravies. Fish sauce. Oyster sauce. Cocktail sauce. Store-bought horseradish. Ketchup. Mustard. Meat flavorings and tenderizers. Bouillon cubes. Hot sauces. Pre-made or packaged marinades. Pre-made or packaged taco seasonings. Relishes. Regular salad dressings. Other foods Salted popcorn and pretzels. The items listed above may not be a complete list of foods and beverages you should avoid. Contact a dietitian for more information. Where to find more information National Heart, Lung, and Blood [place]: www.nhlbi.nih.gov [place] Heart Association: www.heart.org Academy of Nutrition and Dietetics: www.eatright.org National Kidney Foundation: www.kidney.org Summary The DASH eating plan is a healthy eating plan that has been shown to reduce high blood pressure (hypertension). It may also reduce your risk for type 2 diabetes, heart disease, and stroke. When on the DASH eating plan, aim to eat more fresh fruits and vegetables, whole grains, lean proteins, low-fat dairy, and heart-healthy fats. With the DASH eating plan, you should limit salt (sodium) intake to 2,300 mg a day. If you have hypertension, you may need to reduce your sodium intake to 1,500 mg a day. Work with your health care provider or dietitian to adjust your eating plan to your individual calorie needs. This information is not intended to replace advice given to you by your health care provider. Make sure you discuss any questions you have with your health care provider. Document Revised: 07/01/2020 Document Reviewed: 07/01/2020 SpaceList Patient Education 2022 Smartvue. 08/26/2023 10:25:56 BMI for Adults BMI for Adults What is BMI? Body mass index (BMI) is a number that is calculated from a person's weight and height. BMI can help estimate how much of a person's weight is composed of fat. BMI does not measure body fat directly. Rather, it is an alternative to procedures that directly measure body fat, which can be difficult and expensive. BMI can help identify people who may be at higher risk for certain medical problems. What are BMI measurements used for? BMI is used as a screening tool to identify possible weight problems. It helps determine whether a person is obese, overweight, a healthy weight, or underweight. BMI is useful for: Identifying a weight problem that may be related to a medical condition or may increase the risk for medical problems. Promoting changes, such as changes in diet and exercise, to help reach a healthy weight. BMI screening can be repeated to see if these changes are working. How is BMI calculated? BMI involves measuring your weight in relation to your height. Both height and weight are measured, and the BMI is calculated from those numbers. This can be done either in [place] ([place] or metric measurements. Note that charts and online BMI calculators are available to help you find your BMI quickly and easily without having to do these calculations yourself. To calculate your BMI in [place] ([place] measurements: 1.Measure your weight in pounds (lb). 2.Multiply the number of pounds by 703. For example, for a person who weighs 180 lb, multiply that number by 703, which equals 126,540. 3.Measure your height in inches. Then multiply that number by itself to get a measurement called inches squared. For example, for a person who is 70 inches tall, the inches squared measurement is 70 inches x 70 inches, which equals 4,900 inches squared. 4.Divide the total from step 2 (number of lb x 703) by the total from step 3 (inches squared): 126,540 4,900 = 25.8. This is your BMI. To calculate your BMI in metric measurements: 1.Measure your weight in kilograms (kg). 2.Measure [...] 3.1 = 22.6. This is your BMI. What do the results mean? BMI charts are used to identify whether you are underweight, normal weight, overweight, or obese. The following guidelines will be used: Underweight: BMI less than 18.5. Normal weight: BMI between 18.5 and 24.9. Overweight: BMI between 25 and 29.9. Obese: BMI of 30 or above. Keep these notes in mind: Weight includes both fat and muscle, so someone with a muscular build, such as an athlete, may have a BMI that is higher than 24.9. In cases like these, BMI is not an accurate measure of body fat. To determine if excess body fat is the cause of a BMI of 25 or higher, further assessments may need to be done by a health care provider. BMI is usually interpreted in the same way for men and women. Where to find more information For more information about BMI, including tools to quickly calculate your BMI, go to these websites: Centers for Disease Control and Prevention: www.cdc.gov [place] Heart Association: www.heart.org National Heart, Lung, and Blood [place]: www.nhlbi.nih.gov Summary Body mass index (BMI) is a number that is calculated from a person's weight and height. BMI may help estimate how much of a person's weight is composed of fat. BMI can help identify those who may be at higher risk for certain medical problems. BMI can be measured using [place] measurements or metric measurements. BMI charts are used to identify whether you are underweight, normal weight, overweight, or obese. This information is not intended to replace advice given to you by your health care provider. Make sure you discuss any questions you have with your health care provider. Document Revised: 04/20/2020 Document Reviewed: 02/26/2020 Elsevier Patient Education 2022 Smartvue. [facility] 06-03-2023 Hospital Discharg e instructions Patient Education [...] drinks. ?Tomatoes and foods made with tomatoes. ?[place] or spicy foods. ?Chocolate and peppermint. Do not drink alcohol. General instructions Take tuqh-egi-hgfysvt and prescription medicines only as told by [...] provider. Document Revised: 10/15/2020 Document Reviewed: 10/15/2020 [employer]List Patient Education 2022 Smartvue. 06/03/2023 14:30:19 Edema, Xgot-td-Dmsz Edema Edema is when you have too [...] Follow these instructions at home: Medicines Take ruvy-ksx-azsshdc and prescription medicines only as told by [...] provider. Document Revised: 04/02/2022 Document Reviewed: 04/02/2022 [employer]List Patient Education 2022 Smartvue. Follow Up Care 03/01/2023 14:08:40 With:Mt GOODEN DO, FAAFP, FAM, PED Address: [address] [place] [address]- When:Within 3 Month(s) [facility] 04-09-2023 Hospital Discharg e instructions Follow Up Care 04/09/2023 10:50:51 With:Azra Leon Address: [facility] [address] [place] [address]- [phone] Business (1) When: Unknown Comments:Continue Eliquis 5 mg twice daily long-term due to multiple comorbidities and history of 2 separate events of pulmonary emboli one of them is unprovoked.Follow CBCD, CMp and D dimer every 6 months. THis can be done and monitored by his PCP Dr Soriano as per patient wishes.RTC with us only as needed. 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) Appointment Date:04/09/2023 10:00:00 AM Scheduled Provider: [facility] Type:ON[facility] Office Visit 30 (FT) Appointment Date:06/03/2023 01:20:00 PM Scheduled Provider:Mt GOODEN DO, FAAFP Location:[facility] Appointment Type: Open Appointment Date:08/26/2023 11:00:00 AM Scheduled Provider: Location:[facility] Appointment Type: Medicare Wellness Subsequent Diagnostic [...] Function Panel 09/10/22 * Lipid Panel 09/10/22 [facility]08-02-2023 Hospital Discharge instructions Patient Education 03/13/2023 [...] Follow these instructions at home: Medicines Take sfkx-xdm-pioofey and prescription medicines only as told by [...] such as antibiotic medicines or antihistamines. Take vggt-zda-vtktlpt and prescription medicines only as told by [...] provider. Document Revised: 05/10/2022 Document Reviewed: 05/10/2022 SpaceList Patient Education 2022 Smartvue. 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 [facility]07-19-2023 Hospital Discharge instructions Follow Up Care 02/27/2023 09:23:46 With:Azra Leon Address: [facility] [place] [address]- [phone] Business (1) When: Unknown Comments:Thrombophilia panel labs today.Continue Eliquis 5 mg twice daily long- term as long as there is no major bleeding events.Return in 1 month with CBC differential and CMP. [facility]07-18-2023 Hospital Discharge instructions Follow Up Care 02/26/2023 10:50:00 With:Chidi ESPINAL, Matty [place], PUL, JERILYN Address: [facility] [address] [facility] [place] [phone]- When: Unknown Comments:after his testing is completed [facility]07-11-2023 Hospital Discharge instructions Patient Education 02/19/2023 [...] Follow these instructions at home: Medicines Take xktg-utq-hbtjtmn and prescription medicines only as told by [...] is important. Where to find more information [place] Lung Association: www.lung.org Centers for Disease Control [...] provider. Document Revised: 06/30/2021 Document Reviewed: 06/30/2021 SpaceList Patient Education 2022 Smartvue. Follow Up Care 02/18/2023 08:49:44 With:[facility] Address:Unknown When: Unknown Comments:Paramedicine will contact you to set up a home visit. Thank you. With:Ralph Jennings Address: [address] [place], [place] [phone]- Business (1) When: Unknown Comments:Chronic Venous InsufPlease call Kike at Dr. Jennings's office in [place] to make a follow up appointment. The phone number is [phone]. Thank you. With:Matty Murillo Address: [address] [facility] [place] [address]- Business (1) When: Unknown Comments:needs PFTs and sleep studyThe central scheduling department at [facility] will need to schedule the PFT's. Please contact Dr. Murillo's offic eto set up a time for your sleep study. Thank you. With:Mitch Amaro Address: [facility] [address] [facility] [place] [address]- When: Unknown Comments:2nd Violeta. Sondra office will contact you to set up an appointment. If you do not hear from themin 3 days, then call [phone] and asked for Oncology/ Hematology department. Thank you. With:Mt GOODEN Address: [address] [facility] [place] [address]- Business (1) When:03/01/2023 13:00:00 Comments:Your follow up appointment is with Dr. Lobo. Thank you. [facility]07-11-2023 [facility] CenterComment on above:Result Comment: Electronically Signed By: Angelito ESPINAL, Kate\.br\Date and Time Signed: 02/19/23 13:17 [id number] Evaluation + Plan noteExtracted from: Title:Discharge Note [...] (at bedtime), 3 refills Flonase 0.05 mg/inh Harmon, 2 spray(s), Nasal, Daily, 11 refills, Not [...] With When Contact Information Ralph Jennings [address] [place] [address]- Business (1) Additional Instructions: Chronic Venous Insuf Basem Murillo [address] [facility] [place] [address]- Business (1) Additional Instructions: needs PFTs and sleep study Mitch Amaro [facility] [address] [place] [address]- Additional Instructions: 2nd DVT Mt GOODEN In [address] [place] [address]- Business (1) Additional Instructions: Addendum by Angelito ESPINAL, [facility] ad on February 19, 2023 13:16:49 EDT [...] from: Title:Admission H & P Author:Angelito ESPINAL, Aidenncantonieta Date:02/18/23 73-year-old male with a [facility] history significant for morbid obesity, AAA, 2 [...] Date:03/01/2023 01:00:00 PM Scheduled Provider:Kevin LOBO MD Location:[facility] Appointment Type: Hospital Follow Up w/TCM Appointment Date:08/26/2023 11:00:00 AM Scheduled Provider: Location:[facility] Appointment Type: Medicare Wellness Subsequent Future [...] Lipid Panel 02/20/22 * Lipid Panel 09/10/22 [facility]07-10-2023 [facility]FishAdvent[facility] CenterComment on above:Result Comment: Electronically Signed By: Angelito ESPINAL, Kate\.br\Date and Time Signed: 02/18/23 13:49 [id number] Hospital Discharge instructions Patient Education 02/18/2023 08:47:22 [...] provider. Document Revised: 03/13/2021 Document Reviewed: 03/13/2021 SpaceList Patient Education 2022 Smartvue. 02/18/2023 08:47:20 Heart Failure Exacerbation Heart Failure [...] Follow these instructions at home: Medicines Take czdh-tkz-sagewzx and prescription medicines only as told by [...] provider. Document Revised: 02/18/2021 Document Reviewed: 02/18/2021 SpaceList Patient Education 2022 Smartvue. Follow Up Care 08/23/2022 08:23:28 With:MAMTA LEE FAAFP, BEATRIZ Rebolledo, PED Address: [address] [place] [address]- When:Within 1 Month(s) [facility] 06-16-2023 NoteHNO ID: [id number] Author: RT Katty(R) Service: ? Author Type: [...] BY: RT Katty(R) January 25, 2023 8:35 [facility]05-08-2023 Miscellaneous Notes* Telephone Encounter - Juma [...] after the test results. [facility] Hospital Discharge instructions Patient Education 12/10/2022 10:35:03 Edema, Nrgw-nr-Wpxg Edema Edema is when you have too [...] Follow these instructions at home: Medicines Take paqs-vfo-lstnkck and prescription medicines only as told by [...] provider. Document Revised: 04/02/2022 Document Reviewed: 04/02/2022 SpaceList Patient Education 2022 Smartvue. Follow Up Care 11/26/2022 09:27:23 With:Mt GOODEN DO, FAAFP, FAM, EUGENE Address: [place] [address]- When:Within 2 Month(s) [facility] 04-26-2023 NoteHNO ID: [id number] Author: RT Indu(R) Service: ? Author Type: [...] BY: RT Indu(R) December 05, 2022 1:51 [facility]04-26-2023 NoteHNO ID: [id number] Author: Juma Monk MD Service: ? Author Type: Physician Type: Progress Notes Filed: 12/05/2022 1:29 PM Note Text: Rheumatology Outpatient Clinic Date of Service: 12/05/2022 Patient: Jas Gonzalez Medical Record: [id number] Primary Care Physician: No primary care provider [...] 81 mg chewable tablet (more content not included)...[facility]04-26-2023 History of Present illness Narrative* Juma Monk MD - 12/05/2022 1:00 PM EDT Images from the original note were not included. Rheumatology Outpatient Clinic Date of Service: 12/05/2022 Patient: Jas Gonzalez Medical Record: [id number] Primary Care Physician: No primary care provider on file. Referring Provider: CROMLEY, THAO J(HISTORICAL) Last Rheumatology visit: 11/14/2022 (with Juma Monk) [...] Full ROM in flexion and extension. Full video operator strength. No swelling or synovitis along the [...] which included preparing to see the patient, hzzx-ms-qnch patient care, completing clinical documentation, obtaining and/or reviewing separately obtained history, performing a medically appropriate examination, and counseling and educating the patient/family/caregiver. Juma Monk MD, [facility] Rheumatology documented in [facility]04-[facility] Miscellaneous Notes* Telephone Encounter - Angie Lara MA - 12/04/2022 12:44 PM EDT Received outside records for patient. Placed in scanned documents. Angie Lara MA documented [facility]23 Hospital Discharge instructions Patient Education 12/02/2022 [...] Follow these instructions at home: Medicines Take qhnv-gml-lkxsver and prescription medicines only as told by [...] such as antibiotic medicines or antihistamines. Take qmjj-rnk-pvjnwwo and prescription medicines only as told by [...] provider. Document Revised: 05/10/2022 Document Reviewed: 05/10/2022 SpaceList Patient Education 2022 Smartvue. 12/02/2022 15:14:40 Gastrointestinal Bleeding Gastrointestinal Bleeding Gastrointestinal [...] home. Follow these instructions at home: Take sdei-abl-ouiatlp and prescription medicines only as told by [...] on the cause of the bleeding. Take xvka-jnx-aeqldrc and prescription medicines only as told by [...] provider. Document Revised: 03/02/2022 Document Reviewed: 03/02/2022 SpaceList Patient Education 2022 Smartvue. Follow Up Care 12/02/2022 12:04:07 With:Joycelyn CHERRY Address: [address] [place] [address] Business (1) When:12/05/2022 15:14:25 Comments:Follow-up for 2 episodes of bright red blood per rectum With:Mt GOODEN Address: [address] [place] [address]- Business (1) When:12/05/2022 15:14:09 Comments:Follow-up for evaluation [...] ifyou develop any new or worsening symptoms. [facility]04-23-2023 Evaluation + Plan noteExtracted from: Title:ED Note Author:Tabby LOPEZ, Severo Reyna e:12/02/22 Blood per rectum (K62.5: Hem orrhage of anus and rectum) Cellulitis (L03.90: Cellulitis, unspecified) Wound of buttock (S31.809A: Unspecified open wound of unspecified buttock, initial encounter) Orders: cephalexin, 500 mg = 1 cap(s), Oral, q8hr, # 30 cap(s), Refills(s) 0, Pharmacy: [facility]/pharmacy #[id number], 182, cm, 12/02/22 12:12:00 EDT, Height/Length Dosing, 150, kg, 12/02/22 12:12:00 EDT, Weight Dosing ABO/Rh ABO/Rh History Check Antibody Screen Automated Diff Basic Metabolic Panel Blood Bank ID# CBC w/ Auto Diff ECG 12 Lead Adult eGFR Hepatic Function Panel PT & PTT Stool Occult Blood Future Appointments Appointment Date:12/10/2022 10:00:00 AM Scheduled Provider:tM GOODEN DO, FAAFP Location:[facility] Appointment Type: Open Appointment Date:02/18/2023 08:00:00 AM Scheduled Provider:Mt GOODEN DO, FAAFP Location:[facility] Appointment Type: Open Appointment Date:08/26/2023 11:00:00 AM Scheduled Provider: Location:[facility] Appointment Type:FM Medicare Wellness Subsequent Future Scheduled Tests Laboratory* HgbA1c 11/21/21 * HgbA1c 11/08/22 * HgbA1c 02/20/22 * HgbA1c 05/23/22 * HgbA1c 08/23/22 * HgbA1c 11/21/22 * HgbA1c 09/10/22 * HgbA1c 11/21/22 * HgbA1c 02/20/23 * HgbA1c 05/23/23 * Microalbumin Level Urine 7/12/22 * PSA Screen, Total 02/20/22 * Basic Metabolic Panel 02/20/22 * CBC w/ Auto Diff 02/20/22 * Hepatic Function Panel 11/08/22 * Hepatic Function Panel 02/20/22 * Hepatic Function Panel 09/10/22 * Lipid Panel 02/20/22 * Lipid Panel 09/10/22 [facility]04-20-2023 Evaluation + Plan noteExtracted from: Title:Clinical [...] 10:00:00 AM Scheduled Provider:Mt GOODEN DO, FAAFP Location:[facility] Appointment Type: Open Appointment Date:02/18/2023 08:00:00 AM Scheduled Provider:Mt GOODEN DO, FAAFP [facility] Hospital Appointment Type: Open Appointment Date:08/26/2023 11:00:00 AM Scheduled Provider: Location:[facility] Appointment Type:FM Medicare Wellness Subsequent Future [...] Lipid Panel 02/20/22 * Lipid Panel 09/10/22 [facility]04-05-2023 NoteHNO ID: [id number] Author: Juma Monk MD Service: ? Author Type: Physician Type: Progress Notes Filed: 11/16/2022 9:45 AM Note Text: Rheumatology Outpatient Clinic Date of Service: 11/14/2022 Patient: Jas Gonzalez Medical Record: [id number] Primary Care Physician: No primary care provider [...] 54 U/L 33 ALKAL (more content not included)...[facility]04-05-2023 History of Present illness Narrative* Juma Monk MD - 11/14/2022 1:30 PM EDT Images from the original note were not included. Rheumatology Outpatient Clinic Date of Service: 11/14/2022 Patient: Jas Gonzalez Medical Record: [id number] Primary Care Physician: No primary care provider [...] Full ROM in flexion and extension. Full video operator strength. No swelling or synovitis along the [...] which included preparing to see the patient, oflh-nr-tegl patient care, completing clinical documentation, obtaining and/or reviewing separately obtained history, performing a medically appropriate examination, and counseling and educating the patient/family/caregiver. Juma Monk MD, [facility] Rheumatology documented in this encounterMercy Hospital03-30-2023 Hospital Discharge instructions Patient Education 11/08/2022 [...] plan? Your health care provider or certified veterinary technician can help you make a plan for [...] stress. Your health care provider or certified veterinary technician can help you make a plan for [...] 10/18/2004 Document Revised: 02/20/2018 Document Reviewed: 01/07/2017 [employer] Patient Education 2020 [employer] Follow Up Care 10/19/2022 13:04:21 With:MAMTA LEE FAAFP, [place], BEATRIZ, PED Address: [address], [place] [address]- When:Within 3 Month(s) [facility] 03-15-2023 Note [id number]:127[facility] 09-10-2022 Hospital Discharge instructions Follow Up Care 09/10/2022 07:55:41 With:Thao Duncan DO, FAM, PED Address: [place] [address] When:1 month only if needed Comments:40 mins [facility] 01-17-2023 Hospital Discharge instructions [...] that you work with a diet and food and nutrition supervisor (dietitian) tomake a meal plan that is [...] care provider. Work with a counselor or early childhood educator aide to identify strategies to manage stress and any emotional and social challenges. Questions to ask a health care provider Do I need to meet with a early childhood educator aide? Do I need to meet with a dietitian? What number can I call if I have questions? When are the best times to check my blood glucose? Where to find more information: [place] Diabetes Association: diabetes.org Academy of Nutrition and Dietetics: www.eatright.org National Brandon of Diabetes and Digestive and Kidney Diseases (NIH): www.niddk.nih.gov Summary A healthy meal plan will help you control your blood glucose and maintain a healthy lifestyle. Working with a diet and food and nutrition supervisor (dietitian) can help you make a meal [...] 04/25/2006 Document Revised: 07/11/2018 Document Reviewed: 09/02/2017 [employer] Patient Education 2020 [employer]. 08/28/2022 13:59:46 Exercising to Lose Weight Exercising [...] your health care provider or diet and food and nutrition supervisor (dietitian). This may include: ?Eating fewer calories. [...] 08/31/2011 Document Revised: 08/11/2018 Document Reviewed: 08/11/2018 [employer] Patient Education 2020 [employer]. 08/28/2022 13:59:43 BMI for Adults BMI for [...] 04/09/2005 Document Revised: 07/11/2018 Document Reviewed: 06/11/2018 [employer] Patient Education 2020 [employer]. [facility] 01-12-2023 Hospital Discharge instructions [...] drinks. ?Tomatoes and foods made with tomatoes. ?[place] or spicy foods. ?Chocolate and peppermint. Do not drink alcohol. General instructions Take gpuh-eje-gmrwprg and prescription medicines only as told by [...] 10/18/2004 Document Revised: 11/24/2018 Document Reviewed: 11/24/2018 [employer] Patient Education 2020 [employer] 08/23/2022 08:15:04 Budget-Friendly Healthy Eating Budget-Friendly [...] frozen fruits, and frozen vegetables. Avoid buying nkbqx-sr-oac foods, such as pre-cut fruits and vegetables and pre-made salads. If possible, shop around to discover where you can find the best prices. Consider other retailers such as dollar stores, larger wholesale stores, local fruit and vegetable Jusp, and Microb[employer] markets. Do not shop when you are [...] 04/01/2015 Document Revised: 07/30/2018 Document Reviewed: 07/30/2018 [employer] Patient Education 2020 [employer]. Follow Up Care 02/20/2022 08:09:19 With:MAMTA LEE FAAFP, BEATRIZ [place], PED Address: [facility] [address], [place] [address]- When:Within 6 Month(s) [facility] 12-21-2022 Hospital Discharge instructions Patient Education 08/01/2022 18:07:47 Heat Therapy, Xhqn-pv-Hlfj Heat Therapy Heat therapy can help ease [...] 10/20/2012 Document Revised: 09/21/2019 Document Reviewed: 08/09/2018 [employer] Patient Education 2020 [employer]. Follow Up Care 07/04/2022 17:02:06 With:Perla LEE, BEATRIZ Oneil, PED Address: [address] [place] [address] [place] [address] When:1 month only if needed Comments:40 mins [facility] 10-28-2022 NoteQ3 Patient Name: [...] changes classified as Mccarty's stage C3-M4 per Longview criteria. These changes involved the mucosa at the upper extent of the gastric folds (41 cm from the incisors) extending to the Z-line (37 cm from the incisors). Simms-colored mucosa was present. The maximum longitudinal extent [...] changes classified as Mccarty's stage C3-M4 per Longview criteria. Biopsied. - 4 cm hiatal hernia. [...] the patient. Procedure Code(s): --- Professional --- 24846 Diagnosis Code(s): --- Professional --- K22.70 K44.9 K29.00 K31.89 CPT copyright 2020 [place] [employer]. All rights reserved. Attending Participation: I personally performed the entire procedure. Scope In: 12:44:02 PM Scope Out: 12:54:52 PM MD Katrina Whaley MD 06/08/2022 12:57:27 PM This report has been signed electronically by Katrina Urena MD Number of Addenda: 0 Note Initiated On: 06/08/2022 12:33 [facility]10-28-2022 Nurse Note* Leonor Osorio RN - [...] RN In Department: GASTROENTEROLOGY documented in this encounterMercy Hospital09-15-2022 Miscellaneous Notes* Telephone Encounter - Marguerite Potts RN - 04/26/2022 3:44 PM EDT Attempted to reach the patient at the contact number that they provided [phone] (home) . 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 computer help desk representative they must have a responsible adult [...] Number to call with questions or concerns [phone] Number to call to cancel their procedure [phone] Marguerite Potts RN documented in this encounterMercy Hospital08-29-2022 NoteHNO ID: [id number] Author: Katrina Urena MD Service: ? Author [...] concerned about possible dysplasia sent specimen to [facility], still pending; patient denies pain or GERD symptoms. Past Medical History: Ongoing: Mccarty's esophagus with dysplasia BMI 40-44-9 BPH associated with nocturia Diabetes Mellitus Dietary Counseling GERD with hiatal hernia prison current use of oral hypoglycemic drug Lumbar [...] Findings: The affected area was not inflamed. Longview classification C 40, M 35. Biopsy collected. [...] Past Histories independently gathered by the clinical learning support specialist and the remaining scribed note accurately describes my personal service to the patient. Katrina Urena M.D. Office:[phone] Appointments [phone] Fax [phone]08-29-[facility] History of Present illness Narrative* Katrina Urena MD - 04/09/2022 3:00 PM EDT DEPARTMENT OF GASTROENTEROLOGY Consulting Physician: Gonzales Robbins MD Dear Dr. Robbins, Thank you for your kind new patient consult of . Please see below for my recommendations and treatment plan which will be communicated to you by way of shared medical record or mail. CC: Aprils esophagus History of Present Illness: Jas Gonzalez [...] Mellitus Dietary Counseling GERD with hiatal hernia prison current use of oral hypoglycemic drug Lumbar [...] Findings: The affected area was not inflamed. Longview classification C 40, M 35. Biopsy collected. [...] Past Histories independently gathered by the clinical learning support specialist and the remaining scribed note accurately describes my personal service to the patient. Katrina Urena M.D. Office:[phone] Appointments [phone] Fax [phone] documented in this encounterMercy Hospital07-12-2022 Hospital Discharge instructions Patient Education 02/20/2022 [...] an appointment to see a diet and food and nutrition supervisor (registered dietitian) to help you create a healthy eating plan. General instructions Check your blood glucose levels as told by your health care provider. Take cryu-qmy-rrinhmn and prescription medicines only as told by [...] 09/17/2006 Document Revised: 07/11/2018 Document Reviewed: 08/31/2016 [employer] Patient Education 2020 [employer]. 02/20/2022 08:07:58 Type 2 Diabetes Mellitus, Self Care, Adult, Okki-xv-Wfvm Type 2 Diabetes Mellitus, Self Care, Adult [...] and canola oil. Meet with a food service counter clerk (dietitian). He or she can help you [...] for cuts, bruises, redness, blisters, or sores. Elfrida your teeth and gums two times a day. Floss one or more times a day. Go to the dentist one or more times every 6 months. Stay at a healthy weight. General instructions Take heqm-sxf-fznhkcv and prescription medicines only as told by your doctor. Share your diabetes care plan with: ?Your work or school. ?People you live with. Carry a card or wear jewelry that says you have diabetes. Keep all follow-up visits as told by your doctor. This is important. Questions to ask your doctor Do I need to meet with a early childhood educator aide? Where can I find a support group for people with diabetes? Where to find more information To learn more about diabetes, visit: [place] Diabetes Association: www.diabetes.org [place] Association of Diabetes Educators: www.diabeteseducator.org Summary When [...] 11/19/2016 Document Revised: 01/19/2019 Document Reviewed: 08/31/2016 [employer] Patient Education 2020 [employer] 02/20/2022 08:07:54 Type 2 Diabetes Mellitus, Self [...] treat it right away. Always have a 16-uieszxinr-szbipo carbohydrate snack with you to treat low [...] an appointment to see a diet and food and nutrition supervisor (registered dietitian) to help you create an [...] your health care provider once every year. Elfrida your teeth and gums two times a day, and floss one or more times a day. Visit your dentist one or more times every 6 months. Maintain a healthy weight. General instructions Take fssr-wyx-kripmzb and prescription medicines only as told by your health care provider. Share your diabetes management plan with people in your workplace, school, and household. Carry a medical alert card or wear medical alert jewelry. Keep all follow-up visits as told by your health care provider. This is important. Questions to ask your health care provider Do I need to meet with a early childhood educator aide? Where can I find a support group for people with diabetes? Where to find more information For more information about diabetes, visit: [place] Diabetes Association (ADA): www.diabetes.org [place] Association of Diabetes Educators (AADE): www.diabeteseducator.org Summary [...] 11/19/2016 Document Revised: 01/19/2019 Document Reviewed: 08/31/2016 [employer] Patient Education 2020 [employer]. Follow Up Care 08/22/2021 10:02:38 With:Mt GOODEN DO, FAAFP, BEATRIZ, PED Address: [address] [place] [address]- When:Within 6 Month(s) [facility] Evaluation + Plan note Future Appointments Appointment Date:02/20/2022 07:40:00 AM Scheduled Provider:Mt GOODEN DO, FAAFP Location:[facility] Appointment Type: Open Appointment Date:09/13/2022 11:00:00 AM Scheduled Provider: Location:[facility] Appointment Type: Medicare Wellness Subsequent Future Scheduled Tests Laboratory* HgbA1c 02/20/21 * HgbA1c 05/23/21 * HgbA1c 08/23/21 * HgbA1c 11/21/21 * HgbA1c 12/13/20 * HgbA1c 01/21/21 * HgbA1c 04/23/21 * HgbA1c [facility]23/21 [facility] Appointment Date:02/22/2022 09:40:00 AM Scheduled Provider:Gonzales ROBBINS MD Location:[facility] Appointment Type:[facility] 15 Appointment Date:08/23/2022 07:40:00 AM Scheduled Provider:Mt GOODEN DO, FAAFP Location:[facility] Appointment Type: Open Appointment Date:09/13/2022 11:00:00 AM Scheduled Provider: Location:[facility] Appointment Type: Medicare Wellness Subsequent Future [...] Function Panel 02/20/22 * Lipid Panel 02/20/22 [facility] Evaluation + Plan note Future Appointments Appointment Date:03/15/2022 09:00:00 AM Scheduled Provider: Location:[facility] Appointment Type:Surgery FT Appointment Date:08/23/2022 07:40:00 AM Scheduled Provider:Mt GOODEN DO, FAAFP Location:[facility] Appointment Type:FM Open Appointment Date:09/13/2022 11:00:00 AM Scheduled Provider: Location:[facility] Appointment Type: Medicare Wellness Subsequent Future [...] Function Panel 02/20/22 * Lipid Panel 02/20/22 [facility] [place] Evaluation + Plan note Future Appointments Appointment Date:07/04/2022 03:40:00 PM Scheduled Provider:Thao Duncan DO Location:[facility] Appointment Type: Procedure Appointment Date:08/23/2022 07:40:00 AM Scheduled Provider:Mt GOODEN DO, FAAFP Location:[facility] Appointment Type: Open Appointment Date:09/13/2022 11:00:00 AM Scheduled Provider: Location:[facility] Appointment Type: Medicare Wellness Subsequent Future Scheduled Tests Laboratory* HgbA1c 08/23/21 * HgbA1c 11/21/21 * HgbA1c 02/20/22 * HgbA1c 05/23/22 * HgbA1c 08/23/22 * HgbA1c 11/21/22 * HgbA1c 07/23/21 * Microalbumin Level Urine 02/20/22 * PSA Screen, Total 02/20/22 * Basic Metabolic Panel 02/20/22 * CBC w/ Auto Diff 02/20/22 * Hepatic Function Panel 02/20/22 * Lipid Panel 02/20/22 [facility] Evaluation + Plan note Future Appointments Appointment Date:08/23/2022 07:40:00 AM Scheduled Provider:Mt GOODEN DO, FAAFP Location:[facility] Appointment Type: Open Appointment Date:09/13/2022 11:00:00 AM Scheduled Provider: Location:[facility] Appointment Type: Medicare Wellness Subsequent Future Scheduled Tests Laboratory* HgbA1c 08/23/21 * HgbA1c 11/21/21 * HgbA1c 02/20/22 * HgbA1c 05/23/22 * HgbA1c 08/23/22 * HgbA1c 11/21/22 * HgbA1c 07/23/21 * Microalbumin Level Urine 02/20/22 * PSA Screen, Total 02/20/22 * Basic Metabolic Panel 02/20/22 * CBC w/ Auto Diff 02/20/22 * Hepatic Function Panel 02/20/22 * Lipid Panel 02/20/22 [facility] Evaluation + Plan note Future Appointments Appointment Date:08/28/2022 11:00:00 AM Scheduled Provider: Location:[facility] Appointment Type: Medicare Wellness Subsequent Appointment Date:09/04/2022 03:00:00 PM Scheduled Provider:Thao Duncan DO Location:[facility] Appointment Type: Procedure Appointment Date:02/18/2023 08:00:00 AM Scheduled Provider:Mt GOODEN DO, FAAFP Location:[facility] Appointment Type: Open Future Scheduled Tests [...] Lipid Panel 02/20/22 * Lipid Panel 08/23/22 [facility] Evaluation + Plan note Future Appointments Appointment Date:09/04/2022 03:00:00 PM Scheduled Provider:Thao Duncan DO Location:[facility] Appointment Type:FM Procedure Appointment Date:02/18/2023 08:00:00 AM Scheduled Provider:Mt GOODEN DO, FAAFP Location:[facility] Appointment Type: Open Appointment Date:08/26/2023 11:00:00 AM Scheduled Provider: Location:[facility] Appointment Type:FM Medicare Wellness Subsequent Future [...] Lipid Panel 02/20/22 * Lipid Panel 08/23/22 [facility] Evaluation + Plan note Future Appointments Appointment Date:09/14/2022 10:40:00 AM Scheduled Provider:Thao Duncan DO Location:[facility] Appointment Type:FM Procedure Appointment Date:09/27/2022 09:15:00 AM Scheduled Provider:Pawan Laureano MD Location:[facility] Appointment Type:Pain Management - Follow Up (FT) Appointment Date:02/18/2023 08:00:00 AM Scheduled Provider:Mt GOODEN DO, FAAFP Location:[facility] Appointment Type:FM Open Appointment Date:08/26/2023 11:00:00 AM Scheduled Provider: Location:[facility] Appointment Type: Medicare Wellness Subsequent Future [...] Lipid Panel 02/20/22 * [facility]10/22 [facility]ments Appointment Date:09/18/2022 07:30:00 AM Scheduled Provider: [facility] Type:US Aorta Procedures (FT) Appointment Date:09/27/2022 09:15:00 AM Scheduled Provider:Pawan Laureano MD Location:[facility] Appointment Type:Pain Management - Follow Up (FT) Appointment Date:02/18/2023 08:00:00 AM Scheduled Provider:Mt GOODEN DO, FAAFP Location:[facility] Appointment Type: Open Appointment Date:08/26/2023 11:00:00 AM Scheduled Provider: Location:[facility] Appointment Type:FM Medicare Wellness Subsequent Future [...] Lipid Panel 09/10/22 Radiology* US Aorta 09/18/22 [facility] Evaluation + Plan note Future Appointments Appointment Date:09/27/2022 09:15:00 AM Scheduled Provider:Pawan Laureano MD Location:[facility] Appointment Type:Pain Management - Follow Up (FT) Appointment Date:02/18/2023 08:00:00 AM Scheduled Provider:Mt GOODEN DO, FAAFP Location:[facility] Appointment Type: Open Appointment Date:08/26/2023 11:00:00 AM Scheduled Provider: Location:[facility] Appointment Type: Medicare Wellness Subsequent Future [...] Lipid Panel 02/20/22 * Lipid Panel 09/10/22 [facility]ments Appointment Date:11/29/2022 09:45:00 AM Scheduled Provider:Pawan Laureano MD Location:[facility] Appointment Type:Pain Management - Follow Up (FT) Appointment Date:02/18/2023 08:00:00 AM Scheduled Provider:Mt GOODEN DO, FAAFP Location:[facility] Appointment Type: Open Appointment Date:08/26/2023 11:00:00 AM Scheduled Provider: Location:[facility] Appointment Type: Medicare Wellness Subsequent Future [...] Lipid Panel 02/20/22 * Lipid Panel 09/10/22 [facility]ments Appointment Date:11/08/2022 10:00:00 AM Scheduled Provider:Mt GOODEN DO, FAAFP Location:[facility] Appointment Type: Open Appointment Date:11/29/2022 09:45:00 AM Scheduled Provider:Pawan Laureano MD Location:[facility] Appointment Type:Pain Management - Follow Up (FT) Appointment Date:02/18/2023 08:00:00 AM Scheduled Provider:Mt GOODEN DO, FAAFP Location:[facility] Appointment Type: Open Appointment Date:08/26/2023 11:00:00 AM Scheduled Provider: Location:[facility] Appointment Type:FM Medicare Wellness Subsequent Future [...] Lipid Panel 02/20/22 * Lipid Panel 09/10/22 [facility]ments Appointment Date:11/29/2022 09:45:00 AM Scheduled Provider:Pawan Laureano MD Location:[facility] Appointment Type:Pain Management - Follow Up (FT) Appointment Date:02/18/2023 08:00:00 AM Scheduled Provider:Mt GOODNE DO, FAAFP Location:[facility] Appointment Type: Open Appointment Date:08/26/2023 11:00:00 AM Scheduled Provider: Location:[facility] Appointment Type: Medicare Wellness Subsequent Future [...] Lipid Panel 09/10/22 Radiology* US Aorta 11/08/22 [facility] Evaluation + Plan note Future Appointments Appointment Date:11/29/2022 09:45:00 AM Scheduled Provider:Pawan Laureano MD Location:[facility] Appointment Type:Pain Management - Follow Up (FT) Appointment Date:02/18/2023 08:00:00 AM Scheduled Provider:Mt GOODEN DO, FAAFP Location:[facility] Appointment Type: Open Appointment Date:08/26/2023 11:00:00 AM Scheduled Provider: Location:[facility] Appointment Type: Medicare Wellness Subsequent Future [...] Lipid Panel 02/20/22 * Lipid Panel 09/10/22 [facility] App[facility]ments Appointment Date:01/23/2023 09:15:00 AM Scheduled Provider:Joycelyn CHERRY MD Location:[facility] Appointment Type:BAD[facility] New Patient Appointment Date:02/18/2023 08:00:00 AM Scheduled Provider:Mt GOODEN DO, FAAFP Location:[facility] Appointment Type: Open Appointment Date:08/26/2023 11:00:00 AM Scheduled Provider: Location:[facility] Appointment Type: Medicare Wellness Subsequent Future [...] Lipid Panel 02/20/22 * Lipid Panel 09/10/22 [facility] Evaluation + Plan note Future Appointments Appointment Date:02/18/2023 08:00:00 AM Scheduled Provider:Mt GOODEN DO, FAAFP Location:[facility] Appointment Type: Open Appointment Date:02/20/2023 02:25:00 PM Scheduled Provider: Location:[facility] Appointment Type:Surgery FT Appointment Date:08/26/2023 11:00:00 AM Scheduled Provider: Location:[facility] Appointment Type: Medicare Wellness Subsequent Future [...] Lipid Panel 02/20/22 * Lipid Panel [facility]/10/22 [facility]ments Appointment Date:08/26/2023 11:00:00 AM Scheduled Provider: Location:[facility] Appointment Type:FM Medicare Wellness Subsequent Future [...] Lipid Panel 02/20/22 * Lipid Panel 09/10/22 [facility] Evaluation + Plan note Future Appointments Appointment Date:03/29/2023 09:45:00 AM Scheduled Provider: Location:[facility] Appointment 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 (FT) Appointment Date:04/09/2023 10:00:00 AM Scheduled Provider: Location:.ONCOLOGY Appointment Type:ONC Office Visit 30 (FT) Appointment Date:06/03/2023 01:20:00 PM Scheduled Provider:Mt GOODEN DO, FAAFP Location:[facility] Appointment Type: Open Appointment Date:08/26/2023 11:00:00 AM Scheduled Provider: Location:[facility] Appointment Type: Medicare Wellness Subsequent Diagnostic [...] Function Panel 09/10/22 * Lipid Panel 09/10/22 [facility] App[facility]ments Appointment Date:04/09/2023 10:00:00 AM Scheduled Provider: [facility] Type:ONC Office Visit 30 (FT) Appointment Date:06/03/2023 01:20:00 PM Scheduled Provider:Mt GOODEN DO, FAAFP Location:[facility] Appointment Type:[facility] Appointment Date:08/26/2023 11:00:00 AM Scheduled Provider: Location:[facility] Appointment Type:FM Medicare Wellness Subsequent Future Scheduled Tests Laboratory* HgbA1c 11/08/22 * HgbA1c 05/23/22 * HgbA1c 08/23/22 * HgbA1c 11/21/22 * HgbA1c 09/10/22 * HgbA1c 11/21/22 * HgbA1c 05/23/23 * CBC w/ Auto Diff 04/09/23 * Comprehensive Metabolic Panel 04/09/23 * Hepatic Function Panel 11/08/22 * Hepatic Function Panel 09/10/22 * Lipid Panel 09/10/22 [facility] App[facility]ments Appointment Date:04/09/2023 10:00:00 AM Scheduled Provider: [facility] Type:ONC Office Visit 30 (FT) Appointment Date:06/03/2023 01:20:00 PM Scheduled Provider:Mt GOODEN DO, FAAFP Location:[facility] Appointment Type: Open Appointment Date:08/26/2023 11:00:00 AM Scheduled Provider: Location:[facility] Appointment Type: Medicare Wellness Subsequent Future Scheduled Tests Laboratory* HgbA1c 11/08/22 * HgbA1c 05/23/22 * HgbA1c 08/23/22 * HgbA1c 11/21/22 * HgbA1c 09/10/22 * HgbA1c 11/21/22 * HgbA1c 05/23/23 * Hepatic Function Panel 11/08/22 * Hepatic Function Panel 09/10/22 * Lipid [facility]10[facility]22 [facility] Appointment Date:06/03/2023 01:20:00 PM Scheduled Provider:Mt GOODEN DO, FAAFP Location:[facility] Appointment Type: Open Appointment Date:07/09/2023 10:00:00 AM Scheduled Provider: [facility] Type:ONC Office Visit 30 (FT) Appointment Date:08/26/2023 11:00:00 AM Scheduled Provider: Location:[facility] Appointment Type: Medicare Wellness Subsequent Future [...] Function Panel 09/10/22 * Lipid Panel 09/10/22 [facility] App[facility]ments Appointment Date:06/03/2023 01:20:00 PM Scheduled Provider:Mt GOODEN DO, FAAFP Location:[facility] Appointment Type: Open Appointment Date:07/09/2023 10:00:00 AM Scheduled Provider: [facility] App[facility] Type:ONC Office Visit 30 (FT) Appointment Date:08/26/2023 11:00:00 AM Scheduled Provider: Location:[facility] Appointment Type:FM Medicare Wellness Subsequent Future Scheduled Tests Laboratory* HgbA1c 11/08/22 * HgbA1c 05/23/22 * HgbA1c 08/23/22 * HgbA1c 11/21/22 * HgbA1c 09/10/22 * HgbA1c 11/21/22 * HgbA1c 05/23/23 * CBC w/ Auto Diff 07/10/23 * Comprehensive Metabolic Panel 07/10/23 * D-Dimer 07/11/23 * Hepatic Function Panel 11/08/22 * Hepatic Function Panel 09/10/22 * Lipid Panel 09/10/22 [facility] App[facility]ments Appointment Date:06/11/2023 09:00:00 AM Scheduled Provider: [facility] Appointment Type:US Duplex Procedures (FT) Appointment Date:07/09/2023 10:00:00 AM Scheduled Provider: [facility] Type:ONC Office Visit 30 (FT) Appointment Date:08/26/2023 11:00:00 AM Scheduled Provider: Location:[facility] Appointment Type: Medicare Wellness Subsequent Appointment Date:09/05/2023 09:40:00 AM Scheduled Provider:Mt GOODEN DO, FAAFP Location:[facility] Appointment Type: Open Future Scheduled Tests Laboratory* HgbA1c 11/08/22 * HgbA1c 05/23/22 * HgbA1c 08/23/22 * HgbA1c 11/21/22 * HgbA1c 09/10/22 * HgbA1c 11/21/22 * CBC w/ Auto Diff 07/10/23 * Comprehensive Metabolic Panel 07/10/23 * D-Dimer 07/11/23 * Hepatic Function Panel 09/10/22 Radiology* US LE Venous Duplex Insufficiency Bilat 06/11/23 * US LE Venous Duplex Bilateral 06/11/23 [facility] Evaluation + Plan note Future Appointments Appointment Date:06/26/2023 09:45:00 AM Scheduled Provider:Matty Murillo MD Location[facility] Appointment Type:Pulmonary New Patient (FT) Appointment Date:07/09/2023 10:00:00 AM Scheduled Provider: [facility] Type:ONC Office Visit 30 (FT) Appointment Date:08/26/2023 11:00:00 AM Scheduled Provider: Location:[facility] Appointment Type:FM Medicare Wellness Subsequent Appointment Date:09/05/2023 09:40:00 AM Scheduled Provider:Mt GOODEN DO, FAAFP Location:[facility] Appointment Type: Open Future Scheduled Tests Laboratory* HgbA1c 11/08/22 * HgbA1c 05/23/22 * HgbA1c 08/23/22 * HgbA1c 11/21/22 * HgbA1c 09/10/22 * HgbA1c 11/21/22 * CBC w/ Auto Diff 07/10/23 * Comprehensive Metabolic Panel 07/10/23 * D-Dimer 07/11/23 * Hepatic Function Panel 09/10/22 [facility] Future App[facility]ments Appointment Date:07/09/2023 10:00:00 AM Scheduled Provider: [facility] App[facility] Type:ONC Office Visit 30 (FT) Appointment Date:07/10/2023 09:30:00 AM Scheduled Provider: [facility] App[facility] Type:PUL Pulmonary Function Test (FT) Appointment Date:07/10/2023 10:30:00 AM Scheduled Provider: [facility] Appoint[facility] Type:PUL Six Minute Walk Test (FT) Appointment Date:07/17/2023 09:45:00 AM Scheduled Provider:Matty Murillo MD [facility] Type:Pulmonary Follow Up (FT) Appointment Date:08/26/2023 11:00:00 AM Scheduled Provider: Location:[facility] Appointment Type:FM Medicare Wellness Subsequent Appointment Date:09/05/2023 09:40:00 AM Scheduled Provider:Mt GOODEN DO, FAAFP Location:[facility] Appointment Type: Open Future Scheduled Tests Laboratory* HgbA1c 11/08/22 * HgbA1c 08/23/22 * HgbA1c 11/21/22 * HgbA1c 09/10/22 * HgbA1c 11/21/22 * CBC w/ Auto Diff 07/10/23 * Comprehensive Metabolic Panel 07/10/23 * D-Dimer 07/11/23 * Hepatic Function Panel 09/10/22 [facility] Future Appointments Appointment Date:07/10/2023 09:30:00 AM Scheduled Provider: [facility] Type:PUL Pulmonary Function Test (FT) Appointment Date:07/10/2023 10:30:00 AM Scheduled Provider: [facility] App[facility] Type:PUL Six Minute Walk Test (FT) Appointment Date:07/17/2023 09:45:00 AM Scheduled Provider:Matty Murillo MD [facility] App[facility] Type:Pulmonary Follow Up (FT) Appointment Date:08/26/2023 11:00:00 AM Scheduled Provider: Location:[facility] Appointment Type: Medicare Wellness Subsequent Appointment Date:09/05/2023 09:40:00 AM Scheduled Provider:Mt GOODEN DO, FAAFP Location:[facility] Appointment Type: Open Appointment Date:01/07/2024 10:00:00 AM Scheduled Provider: [facility] App[facility] Type:ONC Office Visit 30 (FT) Future Scheduled Tests Laboratory* HgbA1c 11/08/22 * HgbA1c 08/23/22 * HgbA1c 11/21/22 * HgbA1c 09/10/22 * HgbA1c 11/21/22 * CBC w/ Auto Diff 01/07/24 * Comprehensive Metabolic Panel 01/07/24 * D-Dimer 01/07/24 * Hepatic Function Panel 09/10/22 [facility] Future Appointments Appointment Date:08/26/2023 11:00:00 AM Scheduled Provider: Location:[facility] Appointment Type: Medicare Wellness Subsequent Appointment Date:09/05/2023 09:40:00 AM Scheduled Provider:Mt GOODEN DO, FAAFP Location:[facility] Appointment Type: Open Appointment Date:01/07/2024 10:00:00 AM Scheduled Provider: [facility] App[facility] Type:ONC Office Visit 30 (FT) Future Scheduled Tests Laboratory* HgbA1c 11/08/22 * HgbA1c 08/23/22 * HgbA1c 11/21/22 * HgbA1c 09/10/22 * HgbA1c 11/21/22 * CBC w/ Auto Diff 01/07/24 * Comprehensive Metabolic Panel 01/07/24 * D-Dimer 01/07/24 * Hepatic Function Panel 09/10/22 [facility] Future Appointments Appointment Date:09/05/2023 09:40:00 AM Scheduled Provider:Mt GOODEN DO, FAAFP Location:[facility] Appointment Type:FM Open Appointment Date:01/07/2024 10:00:00 AM Scheduled Provider: Location:.ONCOLOGY Appointment Type:ONC Office Visit 30 (FT) Appointment Date:08/31/2024 09:30:00 AM Scheduled Provider: Location:[facility] Appointment Type:FM Medicare Wellness Subsequent Future Scheduled Tests Laboratory* HgbA1c 11/08/22 * HgbA1c 08/23/22 * HgbA1c 11/21/22 * HgbA1c 09/10/22 * HgbA1c 11/21/22 * CBC w/ Auto Diff 01/07/24 * Comprehensive Metabolic Panel 01/07/24 * D-Dimer 01/07/24 * Hepatic Function Panel 09/10/22 [facility] Evaluation note* 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 note* Diagnosis Chronic right-sided low back pain with right-sided sciatica- Primary documented in this encounter [facility] note* Diagnosis Bilateral low back pain with sciatica, sciatica laterality unspecified, unspecified chronicity- Primary documented in this encounter [facility] note* Diagnosis Sacrococcygeal disorders, not elsewhere classified- Primary documented in this encounter [facility] note* Diagnosis Bilateral low back pain with sciatica, sciatica laterality unspecified, unspecified chronicity [facility] Narrative No data available for this section [facility] No data available for this section [facility] No data available for this section [facility] Reason for referral (narrative)* Outpatient Procedure (Routine) - Authorized Specialty Diagnoses / Procedures Referred By Sourav arriaga Referred To Contact [facility] Diagnoses Mccarty's esophagus with dysplasia Procedures EGD DIAGNOSTIC ESOPHAGOGASTRODUODENOSC OPY TRANSORAL DIAGNOSTIC Katrina Urena MD [address] [place] [address] [address] Referral ID Status Reason Start Date Expiration Date Visits Requested Visits Authorized [id number] Authorized Auto-Generat ed Referral 04/09/2022 04/09/2023 1 1 [facility] for referral (narrative)* Outpatient Procedure (Routine) - Closed Specialty Diagnoses / Procedures Referred By Sourav arriaga Referred To Contact [facility] Diagnoses Mccarty's esophagus with dysplasia Procedures EGD DIAGNOSTIC ESOPHAGOGASTRODUODENOSC [place]Y [place] [address] [place] [address] [address] Referral ID Status Reason Start Date Expiration Date V isits Requested Visits Authorized [id number] Closed Auto-Generate d Referral 04/09/2022 04/09/2023 1 1 [facility] for referral (narrative) [facility] (n[facility]ative)* Diagnostic Procedure Only (Routine) - Closed Specialty Diagnoses / Procedures Referred By Sourav arriaga Referred To Contact XR IMAGING Diagnoses Bilateral low back pain with sciatica, sciatica laterality unspecified, unspecified chronicity Procedures XR SACROILIAC JOINTS 2V AP PELVIS/FERGUESON RADIOLOGIC EXAMINATION SACROILIAC JNTS <3 VIEWS Juma Monk MD [address] [place] [address] Xr Imaging Referral ID Status Reason Start Date Expiration Date V isits Requested Visits Authorized [id number] Closed Auto-Generate d Referral 12/05/2022 01/04/2024 1 1 [facility] for referral (narrative)* Diagnostic Procedure Only (Routine) - Closed Specialty Diagnoses / Procedures Referred By Contac t Referred To Contact XR IMAGING Diagnoses Bilateral low back pain with sciatica, sciatica laterality unspecified, unspecified chronicity Procedures XR SACROILIAC JOINTS 2V AP PELVIS/FERGUESON RADIOLOGIC EXAMINATION SACROILIAC JNTS <3 VIEWS Juma Monk MD [address] [place] [address] Xr Imaging Referral ID Status Reason Start Date Expiration Date V isits Requested Visits Authorized [id number] Closed Auto-Generate d Referral 12/05/2022 01/04/2024 1 1 [facility] for visit Narrative* Outpatient Procedure (Routine) - Closed Specialty Diagnoses / Procedures Referred By Contac t Referred To Contact [facility] Diagnoses Mccarty's esophagus with dysplasia Procedures EGD DIAGNOSTIC ESOPHAGOGASTRODUODENOSC OPY TRANSORAL DIAGNOSTIC Katrina Urena MD [address] [place] [address] [facility] [place] [address] [place] [address] Referral ID Status Reason Start Date Expiration Date V isits Requested Visits Authorized [id number] Closed Auto-Generate d Referral 04/09/2022 04/09/2023 1 1 [facility] for visit Narrative* Diagnostic Procedure Only (Routine) - Closed Specialty Diagnoses / Procedures Referred By Contac t Referred To Contact XR IMAGING Diagnoses Bilateral low back pain with sciatica, sciatica laterality unspecified, unspecified chronicity Procedures XR SACROILIAC JOINTS 2V AP PELVIS/FERGUESON RADIOLOGIC EXAMINATION SACROILIAC JNTS <3 VIEWS Juma Monk MD [address] [place] [address] Xr Imaging Referral ID Status Reason Start Date Expiration Date V isits Requested Visits Authorized [id number] Closed Auto-Generate d Referral 12/05/2022 01/04/2024 1 1 [facility] Reason for Referral Specialty Diagnoses / Procedures Referred By Sourav arriaga Referred To Contact MR IMAGING Diagnoses Sacrococcygeal disorders, not elsewhere classified Procedures MRI SACRUM/COCCYX WO IVCON MRI PELVIS W/O CONTRAST MATERIAL Juma Monk MD [address] [place] [address] Mr Imaging Referral ID Status Reason Start Date Expiration Date Visits Requested Visits Authorized [id number] Pending Review Auto-Generat ed Referral 12/17/2022 01/16/2024 [...] Found No data available for this section Advance Directives No Advanced Directives Records FoundNo Advanced Directives Records FoundNo Advanced Directives Records Found Additional Source Comments Care Team (unrecognized sect ion and content) Personnel Name: Mt GOODEN DO, FAAFP Address: Address: [facility] [place] [address] [place], [place] [address] General Teller Relationship Specialty Start Date End Date Pcp, No PCP - General 02/24/22 09/11/22 General Teller Relationship Specialty Start Date End Date Pcp, No PCP - General 02/24/22 09/11/22 General Teller Relationship Specialty Start Date End Date Pcp, No PCP - General 02/24/22 09/11/22 General Teller Relationship Specialty Start Date End Date Mt Gooden DO [address] [place] [address] PCP - General Family Medicine 11/14/22 Thao Duncan(Historical), DO Referring Primary Care 08/07/22 General Teller Relationship Specialty Start Date End Date Mt Gooden DO [address] [place] [address] PCP - General Family Medicine 11/14/22 Thao Duncan(Historical), DO Referring Primary Care 08/07/22 General Teller Relationship Specialty Start Date End Date Mt Gooden DO [address] [place] [address] PCP - General Family Medicine 11/14/22 Thao Duncan(Historical), DO Referring Primary Care 08/07/22 General Teller Relationship Specialty Start Date End Date Mt Gooden DO [address] [place] [address] PCP - General Family Medicine 11/14/22 Thao Duncan(Historical), DO Referring Primary Care 08/07/22 Source Comments (unrecognize d section and content) In the event this informatio n is protected by the Federal Confidentiality of Alcohol and Drug Abuse Patient Records regulations: The Federal rules restrict any use of the information to criminally investigate or prosecute any alcohol or drug abuse patient.[facility] the event this information is protected by the Federal Confidentiality of Alcohol and Drug Abuse Patient Records regulations: The Federal rules restrict any use of the information to criminally investigate or prosecute any alcohol or drug abuse patient.[facility] the event this information is protected by the Federal Confidentiality of Alcohol and Drug Abuse Patient Records regulations: The Federal rules restrict any use of the information to criminally investigate or prosecute any alcohol or drug abuse patient.[facility] the event this information is protected by the Federal Confidentiality of Alcohol and Drug Abuse Patient Records regulations: The Federal rules restrict any use of the information to criminally investigate or prosecute any alcohol or drug abuse patient.[facility] Hospital[facility] the event this information is protected by the Federal Confidentiality of Alcohol and Drug Abuse Patient Records regulations: The Federal rules restrict any use of the information to criminally investigate or prosecute any alcohol or drug abuse patient.[facility] Hospital[facility] the event this information is protected by the Federal Confidentiality of Alcohol and Drug Abuse Patient Records regulations: The Federal rules restrict any use of the information to criminally investigate or prosecute any alcohol or drug abuse patient.[facility] Hospital[facility] the event this information is protected by the Federal Confidentiality of Alcohol and Drug Abuse Patient Records regulations: The Federal rules restrict any use of the information to criminally investigate or prosecute any alcohol or drug abuse patient.[facility] Hospital[facility] the event this information is protected by the Federal Confidentiality of Alcohol and Drug Abuse Patient Records regulations: The Federal rules restrict any use of the information to criminally investigate or prosecute any alcohol or drug abuse patient.[facility] Reason for Visit (unrecogniz ed section and content) Reason Comments Appointment Confirmation Reason Comments Consult Dx oa. Reason Comments Received Outside Medical Records Reason Comments Follow Up Denies any concerns Reason Comments Results (unrecognized sect ion and content) No Status Records FoundNo Status Records FoundNo Status Records Found INFORMATION SOURCE (unrecogn ized section and content) DATE CREATED AUTHOR 01/29/2023 [facility] DATE CREATED AUTHOR AUTHOR'S ORGANIZ ATION 06/27/2023 [facility] DATE CREATED AUTHOR AUTHOR'S ORGANIZ ATION 07/19/2023 [facility] FOR RECORDS PERTAINING TO PATIENTS WHO [...] BE BASED ON THE PRIMARY CLINICAL RECORDS. [employer] [facility]. provides no warranty or guarantee of the accuracy or completeness of information in this document.
[2023-08-29] MEDS: LIDOCAINE HCL 20 ML, SODIUM BICARBONATE 2 MEQ INJ (15:49)
== END 2023-08-29 12:40 | disposition home or self-care (01) ==
LOC: VC 12:39
PROVIDERS: PCP Radiology Diagnostic Radiology; Visit Provider Radiology Diagnostic Radiology
DX: I83.813 Varicose veins of bilateral lower extremities with pain (principal)
CPT/HCPCS: 36478

== ENCOUNTER 2023-09-09 12:45 | Outpatient (OUT) | payer MEDICARE, OTHER, SELFPAY ==
--- NOTE | 2023-09-09 12:49 | VEIN_ITS ---
Patient Name: JOSE GONZALEZ MR#: [id number] : 1950 Exam Date: 09/09/2023 Ordering Doctor: DR LEXA CUNHA M.D. RADIOLOGY REPORT PROCEDURE: VC EXT VENOUS RT LMTD COMPARISON: VC EXT VENOUS RT LMTD, 08/02/2023. INDICATIONS: Phlebitis of superficial veins of right lower extremity I80.01 TECHNIQUE: Lower extremity anderson scale and Duplex Doppler evaluation of the deep venous system from the inguinal ligament through the calf veins. FINDINGS: REGION: Right lower extremity. THROMBI: Negative for DVT. Heat induced thrombus in distal/medial lower leg audio visual tech and partial thrombus of distal/medial lower leg audio visual tech. COMPRESSIBILITY: Partial compressibility of segments. Non-compressible segments corresponding to thrombus FLOW: Areas of no flow corresponding to thrombus OTHER: Multiple patent perforators remain. CONCLUSION: Occlusion of 1 of the treated perforating veins, partial occlusion of a 2nd perforating vein and patent appearance of the 3rd treated perforating vein Dictated by: Lexa Cunha MD on 09/09/2023 at 13:18 Approved by: Lexa Cunha MD on 09/09/2023 at 13:20
--- NOTE | 2023-09-09 12:49 | VEIN_ITS ---
Patient Name: JOSE GONZALEZ MR#: [id number] : 1950 Exam Date: 09/09/2023 Ordering Doctor: DR LEXA CUNHA M.D. RADIOLOGY REPORT PROCEDURE: [facility] EST LMTD VEIN [facility] - OFFICE VISIT FOLLOW UP [facility]: [facility] EST TD, 08/02/2023. PROGRESS NOTES: The patient reports no significant problems following intravenous laser ablation of incompetent right leg perforating veins. Patient has worn his compression stockings. Patient did not require oral analgesics. Physical exam demonstrates marked decrease in swelling and skin thickening from his initial presenting exam. A 5 mm healing ulceration is noted along the anterior medial mid lower leg. No erythema or warmth to suggest cellulitis or thrombophlebitis. Review of the ultrasound performed the same day demonstrates complete occlusion of 1 of 3 perforating veins, partial occlusion of a 2nd perforating vein and patent appearance of a 3rd perforating vein. This was discussed with the patient. No deep vein thrombus for The patient expressed a desire to proceed with treatment of incompetent varicose veins with micro foam chemical ablation. VEIN/[facility] EST LMTD IMPRESSION: 1. Complete occlusion, partial occlusion and patent appearance of treated perforating veins as detailed above 2. Persistent bilateral incompetent varicose veins. PLAN: Micro foam chemical ablation left leg incompetent varicose veins Nurse notes, history and physical were reviewed and confirmed, see attached forms. The nurse was present throughout the physical exam and consultation Dictated by: Lexa Cunha MD on 09/09/2023 at 13:28 Approved by: Lexa Cunha MD on 09/09/2023 at 13:30
--- OUTSIDE RECORDS SUMMARY | 2023-09-09 12:51 | XMS_ITS | CCD ---
Author Name Unknown Address [address] [place] [address] Organization [facility] Care Team Providers Care Biostatistician Name Role Phone [facility] Primary Care Physician [phone] Pcp, No Primary Care Provider UnavailThao Jones [...] Referring Unavailable Pawan Laureano Attending Unavailable Al-Marrawi, Mickd Yalink Attending Unavailabl [...] Translations: [azithromycin] Drug Allergy 06-08-2022 [facility] (1 source) Azithromycin Drug Allergy 05-16-2023 [facility] Repository Medications Current Medications Medication Drug [...] Status: Ordered apixaban 5 mg oral tablet (19 sources) Factor Xa Inhibitor Start: 03-04-2023 take 1 tablet by mouth twice daily Eliquis 5 mg oral tablet 5 mg = 1 tab(s), Oral, BID, # 180 tab(s), Refills(s) 3, Pharmacy: [facility]/pharmacy #[id number], 185, cm, 04/09/23 10:08:00 EDT, Height/Length Dosing, 154.1, kg, 04/09/23 10:08:00 EDT, Weight Dosing Start Date: 04/09/23 Status: Ordered Start: 02-19-2023 Eliquis 5 mg o ral tablet 2 tabs (10 mg) BID x 7 days then 1 tab bid, Oral, BID, initial fill only, # 74 tab(s), Refills(s) 0, Pharmacy: [facility]/pharmacy #[id number], 182, cm, 02/18/23 9:01:00 EDT, [...] day(s), # 28 cap(s), Refills(s) 0, Pharmacy: [facility]/pharmacy #[id number], 185.4, cm, 03/13/23 2:24:00 EDT, Height/Length Dosing, 154.7, kg, 03/13/23 2:24:00 EDT, Weight Dosing Start Date: 03/13/23 Stop Date: 03/20/23 Status: Ordered Start: 12-02-[address] [facility] every eight hours cephalexin 500 mg Cap 500 mg = 1 cap(s), Oral, q8hr, # 30 cap(s), Refills(s) 0, Pharmacy: [facility]/pharmacy #[id number], 182, cm, 12/02/22 12:12:00 EDT, [...] day(s), # 10 tab(s), Refills(s) 0, Pharmacy: [facility]/pharmacy #[id number], 185, cm, 06/22/22 11:58:00 EST, Height/Length Dosing, 146.3, kg, 06/22/22 11:58:00 EST, Weight Dosing Start Date: 06/22/22 Stop Date: 07/02/22 Status: Ordered Start: 12-14-2021 take 1 tablet by [facility] at bedtime cyclobenzaprine 10 mg Tab 10 mg = 1 tab(s), Oral, Bedtime, # 30 tab(s), Refills(s) 1, Pharmacy: [facility]/pharmacy #[id number], 185, cm, 12/14/21 15:11:00 EDT, Height/Length Dosing, 144.7, kg, 12/14/21 15:11:00 EDT, Weight Dosing Start Date: 12/14/21 Status: Ordered doxycycline hyclate 100 mg oral capsule (1 source) Tetracycline-class Drug Start: 08-22-2021 take 1 capsule by mouth twice daily doxycycline hyclate 100 mg Cap 100 mg = 1 cap(s), Oral, BID, # 20 cap(s), Refills(s) 0, Pharmacy: [facility]/pharmacy #[id number], 185, cm, 08/22/21 9:05:00 EST, Height/Length Dosing, 145.2, kg, 08/22/21 9:05:00 EST, Weight Dosing Start Date: 08/22/21 Status: Ordered famotidine 40 mg oral tablet (20 sources) Histamine-2 Receptor Antagonist Start: 06-03-2023 take 1 tablet by mouth once daily at bedtime famotidine 40 mg Tab 40 mg = 1 tab(s), Oral, Once a day (at bedtime), # 90 tab(s), Refills(s) 3, Pharmacy: [facility]/pharmacy #[id number], 182, cm, 06/03/23 13:45:00 EDT, Height/Length Dosing, 146.6, kg, 06/03/23 13:45:00 EDT, Weight Dosing Start Date: 06/03/23 Status: Ordered Start: 01-22-2022 take 1 tablet by nicolas once daily at bedtime famotidine 40 mg Tab 40 mg = 1 tab(s), Oral, Once a day (at bedtime), # 90 tab(s), Refills(s) 3, Pharmacy: [facility]/pharmacy #[id number], 182, cm, 12/10/22 10:07:00 EDT, Height/Length Dosing, 154.8, kg, 12/10/22 10:07:00 EDT, Weight Dosing Start Date: 12/31/22 Status: Ordered Start: 12-08-2020 take 1 tablet by nicolas once daily at bedtime famotidine 40 mg Tab 40 mg = 1 tab(s), Oral, Once a day (at bedtime), # 90 tab(s), Refills(s) 3, Pharmacy: [facility]/pharmacy #[id number], 185, cm, 10/21/20 9:58:00 EST, Height/Length Dosing, 148.8, kg, 10/21/20 9:57:00 EST, Weight Dosing Start Date: 12/08/20 Status: Ordered Comment on above: Take 40 mg by mouth daily at bedtime. fluticasone propionate 0.05 mg/actuat metered dose nasal spray (20 sources) Corticosteroid Start: 3 Flonase 0.05 mg/inh George 2 spray(s), Nasal, Daily, 16 gram, Refill(s) 11, each nostril, [facility]/pharmacy #[id number], 182, cm, 11/08/22 10:10:00 EDT, Height/Length Dosing, 151.1, kg, 11/08/22 10:10:00 EDT, Weight Dosing Start Date: 11/08/22 Status: Ordered Comment on above: Use in the nose. furosemide 40 mg oral tablet (18 sources) Loop Diuretic Start: 3 take 1 tablet by mouth once daily as needed for edema Lasix 40 mg Tab 40 mg = 1 tab(s), Oral, Daily, PRN Edema, # 90 tab(s), Refills(s) 3, Pharmacy: [facility]/pharmacy #[id number], 182, cm, 06/03/23 13:45:00 EDT, Height/Length Dosing, 146.6, kg, 06/03/23 13:45:00 EDT, Weight Dosing Start Date: 06/03/23 Status: Ordered Start: 12-18-2022 take 1 tablet by nicolas th once daily as needed for edema Lasix 40 mg Tab 40 mg = 1 tab(s), Oral, Daily, PRN Edema, # 30 tab(s), Refills(s) 5, Pharmacy: [facility]/pharmacy #[id number], 182, cm, 12/10/22 10:07:00 EDT, Height/Length Dosing, 154.8, kg, 12/10/22 10:07:00 EDT, Weight Dosing Start Date: 12/18/22 Status: Ordered gabapentin 100 mg oral capsule (2 sources) Anti-epileptic Agent Start: 11-30-2020 take 1 capsule by mouth once daily gabapentin 100 mg Cap 100 mg = 1 cap(s), Oral, Daily, # 30 cap(s), Refills(s) 3, Pharmacy: [facility]/pharmacy #[id number], 185, cm, 10/21/20 9:58:00 EST, Height/Length Dosing, 148.8, kg, 10/21/20 9:57:00 EST, Weight Dosing Start Date: 11/30/20 Status: Ordered hydrocortisone 25 mg/ml rectal cream (18 sources) Corticosteroid Start: 01-23-2023 hydrocortisone 2.5% Rectal Crm w/Appl 1 lorenzo, Rectal, BID, 30 gram, Refill(s) 0 Start Date: 01/23/23 Status: Ordered lisinopril 10 mg oral tablet (20 sources) Angiotensin Converting Enzyme Inhibitor Start: 05-05-2023 take 1 tablet by mouth once daily lisinopril 10 mg Tab 10 mg = 1 tab(s), Oral, Daily, # 90 tab(s), Refills(s) 3, Pharmacy: [facility]/pharmacy #[id number], 185, cm, 04/09/23 10:08:00 EDT, Height/Length Dosing, 154.1, kg, 04/09/23 10:08:00 EDT, Weight Dosing Start Date: 05/05/23 Status: Ordered Start: 10-14-2020 take 1 tablet by nicolas th once daily lisinopril 10 mg Tab 10 mg = 1 tab(s), Oral, Daily, # 90 tab(s), Refills(s) 1, Pharmacy: [facility]/pharmacy #[id number], 185, cm, 03/15/22 8:30:00 EDT, Height/Length Dosing, 146, kg, 03/15/22 8:30:00 EDT, Weight Dosing Start Date: 04/20/22 Status: Ordered Comment on above: Take by mouth. metFORMIN hydrochloride 1000 mg oral tablet (20 sources) Biguanide Start: 12-31-2022 take 1 tablet by mouth twice daily metformin 1000 mg Tab 1,000 mg = 1 tab(s), Oral, BID, # 180 tab(s), Refills(s) 3, Pharmacy: [facility]/pharmacy #[id number], 182, cm, 12/10/22 10:07:00 EDT, Height/Length Dosing, 154.8, kg, 12/10/22 10:07:00 EDT, Weight Dosing Start Date: 12/31/22 Status: Ordered Start: 12-10-2022 take 1 tablet by nicolas twice daily metformin 1000 mg Tab 1,000 mg = 1 tab(s), Oral, BID, # 180 tab(s), Refills(s) 3, [id number], cm, 12/10/22 10:07:00 EDT, [...] # 120 tab(s), Refills(s) 0, [id number], cm, 03/01/23 13:14:00 EDT, Height/Length Dosing, 153.1, kg, 03/01/23 13:14:00 EDT, Weight Dosing Start Date: 03/04/23 Status: Ordered methylPREDNISolone 4 mg oral tablet (1 source) Corticosteroid Start: 2021 End: 2021 Medrol 4 mg Tab = 1 packet(s), Oral, As Directed, as directed on package labeling, X 6 day(s), # 21 tab(s), Refills(s) 2, [id number], cm, 12/14/21 15:11:00 EDT, Height/Length [...] Daily, # 90 cap(s), Refills(s) 3, Pharmacy: [facility]/pharmacy #[id number], 182, cm, 11/08/22 10:10:00 EDT, Height/Length Dosing, 151.1, kg, 11/08/22 10:10:00 EDT, Weight Dosing Start Date: 11/15/22 Status: Ordered Comment on above: Take 40 mg by mouth once daily. omeprazole 40 mg Cap-DR (2 sources) Start: 2021 take 1 capsule by mouth once daily omeprazole 40 mg Cap-DR 40 mg = 1 cap(s), Oral, Daily, # 90 cap(s), Refills(s) 3, Pharmacy: [facility]/pharmacy #[id number], 182.9, cm, 09/18/21 11:36:00 EST, [...] # 90 tab(s), Refills(s) 3, Pharmacy: [facility]/pharmacy #[id number], 185, cm, 06/26/23 9:53:00 EST, Height/Length Dosing, 147, kg, 06/26/23 9:53:00 EST, Weight Dosing Start Date: 07/02/23 Status: Ordered Start: 06-03-2023 take 1 tablet by [facility] once daily pioglitazone 30 mg Tab 30 mg = 1 tab(s), Oral, Daily, # 90 tab(s), Refills(s) 3, Pharmacy: [facility]/pharmacy #[id number], 182, cm, 06/03/23 13:45:00 EDT, Height/Length Dosing, 146.6, kg, 06/03/23 13:45:00 EDT, Weight Dosing Start Date: 06/03/23 Status: Ordered Start: 11-08-2022 take 1 tablet by [facility] once daily Actos 45 mg Tab 45 mg = 1 tab(s), Oral, Daily, # 90 tab(s), Refills(s) 3, Pharmacy: [facility]/pharmacy #[id number], 182, cm, 11/08/22 10:10:00 EDT, Height/Length Dosing, 151.1, kg, 11/08/22 10:10:00 EDT, Weight Dosing Start Date: 11/08/22 Status: Ordered Start: 05-10-2022 take 1 tablet by [facility] once daily Actos 15 mg Tab 15 mg = 1 tab(s), Oral, Daily, # 90 tab(s), Refills(s) 3, Pharmacy: [facility]/pharmacy #[id number], 185, cm, 03/15/22 8:30:00 EDT, Height/Length Dosing, 146, kg, 03/15/22 8:30:00 EDT, Weight Dosing Start Date: 05/10/22 Status: Ordered Start: 07-22-2020 take 1 tablet by [facility] once daily Actos 15 mg Tab 15 mg = 1 tab(s), Oral, Daily, # 90 tab(s), Refills(s) 3, Pharmacy: [facility]/pharmacy #[id number], 185, cm, 07/22/20 10:49:00 EST, Height/Length Dosing, 148.4, kg, 07/22/20 10:49:00 EST, Weight Dosing Start Date: 07/22/20 Status: Ordered polyethylene glycol 3350 503182 mg / potassium chloride 1480 mg / sodium bicarbonate 5720 mg / sodium chloride 78919 mg powder for oral solution (16 sources) Osmotic Laxative Start: 01-23-2023 NuLYTELY Mendez oral powder for reconstitution See Instructions, 1 EA, Refill(s) 0, See physician instructions prior to procedure., [facility]/pharmacy #[id number], 185, cm, 01/23/23 9:12:00 EDT, Height/Length Dosing, 152.1, kg, 01/23/23 9:12:00 EDT, Weight Dosing Start Date: 01/23/23 Status: Ordered predniSONE 20 mg oral tablet (1 source) Start: 06-22-2022 End: 06-29-2022 take 2 tablets by mouth once daily predniSONE 20 mg Tab 40 mg = 2 tab(s), Oral, Daily, X 7 day(s), # 14 tab(s), Refills(s) 0, Pharmacy: [facility]/pharmacy #[id number], 185, cm, 06/22/22 11:58:00 EST, [...] Daily, # 90 tab(s), Refills(s) 1, Pharmacy: [facility]/pharmacy #[id number], 185, cm, 06/22/22 11:58:00 EST, Height/Length Dosing, 146.3, kg, 06/22/22 11:58:00 EST, Weight Dosing Start Date: 07/02/22 Status: Ordered Start: 05-03-2021 take 1 tablet by nicolas th once daily Januvia 100 mg Tab 100 mg = 1 tab(s), Oral, Daily, # 90 tab(s), Refills(s) 1, Pharmacy: [facility]/pharmacy #[id number], 185, cm, 12/14/21 15:11:00 EDT, [...] chloride 20 meq extended release oral tablet (18 sources) Start: 06-03-2023 take 1 tablet by mouth once daily as needed for edema potassium chloride 20 mEq ER Tab 20 mEq = 1 tab(s), Oral, Daily, PRN Edema, Take on the days he takes Lasix, # 90 tab(s), Refills(s) 3, Pharmacy: [facility]/pharmacy #[id number], 182, cm, 06/03/23 13:45:00 EDT, Height/Length Dosing, 146.6, kg, 06/03/23 13:45:00 EDT, Weight Dosing Start Date: 06/03/23 Status: Ordered Start: 12-18-2022 take 1 tablet by nicolas th once daily as needed for edema potassium chloride 20 mEq ER Tab 20 mEq = 1 tab(s), Oral, Daily, PRN Edema, Take on the days he takes Lasix, # 30 tab(s), Refills(s) 5, Pharmacy: [facility]/pharmacy #[id number], 182, cm, 12/10/22 10:07:00 EDT, [...] current use of oral hypoglycemic medication; Translations: [custodial (current) use of oral hypoglycemic drugs] Onset: [...] with ulcer of unspecified lower extremity] Onset: Chronic Other diseases of veins and lymphatics (9 sources) Chronic peripheral venous hypertension 02-18-2023 Chronic Other diseases of veins and lymphatics (15 sources) Disorder of vein of lower extremity [...] hearing-aid] Onset: 3 Episodic Other gastrointestinal disorders (17 sources) Constipation 02-18-2023 Episodic Other gastrointestinal disorders [...] Onset: 3 Episodic Other lower respiratory disease (18 sources) Orthopnea; Translations: [Orthopnea] Onset: 3 Episodic [...] edema] Onset: 3 Episodic Residual codes; unclassified (19 sources) Bilateral lower limb edema 12-10-2022 Episodic Respiratory failure; insufficiency; arrest (adult) (16 sources) Chronic hypoxemic respiratory failure; Translations: [Chronic [...] Results Test Name Value Interpretation Reference Range Facil ity CHEMISTRYOrdered By: SYSTEM SYSTEM on 09-04-2023 Albumin [Mass/Vol] 4.1 g/dL Normal 3.3 - 5.0 gm/dL R emisol Chem Albumin/Globulin [Mass ratio] 1.2 {ratio} Normal 1.1 - 2.2 Remisol Chem Alk Phos 46 [iU]/d Normal 21 - 98 Int._Unit/L Remisol Chem ALT 23 [iU]/d Normal 6 - 46 Int._Unit/L Remisol Chem AST 26 [iU]/d Normal 5 - 43 Int._Unit/L Remisol Chem Bili Direct 0.1 mg/dL Normal 0.0 - 0.4 mg/dL Remisol Chem Bili Indirect 0.4 mg/dL Normal 0.1 - 0.9 mg/dL Remiso l Chem Bili Total 0.5 mg/dL Normal 0.0 - 1.1 mg/dL Remisol Chem Globulin (S) [Mass/Vol] 3.3 g/dL Normal 1.4 - 4.0 gm/dL Remisol Chem Protein [Mass/Vol] 7.4 g/dL Normal 6.0 - 7.8 gm/dL R emisol Chem CHEMISTRYOrdered By: Catalina King on 09-04-2023 HbA1c (Bld) [Mass fraction] 6.2 % High <=5.9% [facility] ChemAutoSS Physician Orderon 07-18-2023 Physician Order [id number]#1.00T IFF Normal [facility] Consent for Treatmenton Consent for Treatment [id number]#1.00T IFF Normal [facility] Heart and Vascular Office/Cl inic Noteon 07-17-2023 Heart and Vascular Office/Clinic Note Normal [facility] Comment on above: Result Comment: Elec tronically Signed By: Chidi ESPINAL, Matty [place]\.br\Date and Time Signed: 07/17/23 10:18 EST Pulmonary Function Studieson 07-15-2023 Pulmonary Function Studies Normal [facility] Comment on above: Result Comment: Elec tronically Signed By: Matty Murillo MD\.br\Date and Time Signed: 07/15/23 09:48 EST Consent for Treatmenton 06-13 Consent for Treatment [id number]#1.00T IFF Normal [facility] Pulmonary Function Testson 09-09-2022 Pulmonary Function Tests [id number]#1.00T IFF Normal [facility] Respiratory Therapy Noteson 07-10-2023 Respiratory Therapy Notes [id number]#1.00T IFF Normal [facility] Consent for Treatmenton 06-13 Consent for Treatment [id number]#1.00T IFF Normal [facility] Oncology Noteon 07-09-2023 Oncology Note Normal [facility] Comment on above: Result Comment: Elec tronically Signed By: Charles MARTINEZ, Isablele\.br\Date and Time Signed: 07/09/23 10:41 EST Oncology Progress Noteon Oncology Progress Note Normal [facility] Auto Diffon 07-08-2023 Basophils/100 WBC (Bld) 0.7 % Normal 0.0-2.0 [facility] Comment on above: Order Comment: Order Added by Discern Expert. Performed By: #### 2 403236, 8605587, [id number], [id number] ####[facility] [address] [place] [address] Basophils/Leukocyte s Auto (Bld) [Pure # fraction] 0.1 E9/L Normal 0.0-0.2 [facility] Comment on above: Order Comment: Order Added by Discern Expert. Performed By: #### 2 437831, 5629150, [id number], 7325548 ####[facility] [address] [place] [address] Eosinophils/100 WBC (Bld) 1.8 % Normal 0.0-8.0 [facility] Comment on above: Order Comment: Order Added by Discern Expert. Performed By: #### 2 407743, 0334096, 73842105, 8823043 ####[facility] [address] [place] [address] Eosinophils/Leukocy [place] Auto (Bld) [Pure # fraction] 0.1 E9/L Normal 0.0-0.5 [facility] Comment on above: Order Comment: Order Added by Discern Expert. Performed By: #### 2 333572, 5317414, 13501485, 2619563 ####[address] [address] Lymphocytes/100 WBC (Bld) 31.1 % Normal 14.0-50.0 [facility] Comment on above: Order Comment: Order Added by Rudi Expert. Performed By: #### 2 140505, 0448503, [id number], 7367229 ####[address] [address] Lymphocytes/Leukocy [place] Auto (Bld) [Pure # fraction] 2.5 E9/L Normal 1.0-4.0 [facility] Comment on above: Order Comment: Order Added by Rudi Expert. Performed By: #### 2 365323, 0476616, 77536844, 6258466 ####[address] [address] Monocytes/100 WBC (Bld) 8.6 % Normal 4.0-14.0 [facility] Comment on above: Order Comment: Order Added by Rudi Expert. Performed By: #### 2 561000, 5540273, 12041900, 6473970 ####[address] [address] Monocytes/Leukocyte s Auto (Bld) [Pure # fraction] 0.7 E9/L Normal 0.2-1.0 [facility] Comment on above: Order Comment: Order Added by Rudi Expert. Performed By: #### 2 822764, 3529869, 80334096, 4116863 ####[address] [address] Neutrophils/100 WBC (Bld) 57.8 % Normal 36.0-75.0 [facility] Comment on above: Order Comment: Order Added by Rudi Expert. Performed By: #### 2 847253, 2449207, 64484828, 6158679 ####[address] [address] Neutrophils/Leukocy [place] Auto (Bld) [Pure # fraction] 4.6 E9/L Normal 2.0-7.5 [facility] Comment on above: Order Comment: Order Added by Discern Expert. Performed By: #### 2 903533, 4191849, 86681883, 3616941 ####[address] [address] CBC w/ Auto Diffon Erythrocyte distribution width (RBC) [Ratio] 15.1 % High 10.9-14.2 [facility] Comment on above: Performed By: #### 2 149456, 5296293, 88044779, 2116621 ####[address] [address] Hematocrit (Bld) [Volume fraction] 40.3 % Normal 37.7-49.0 [facility] Comment on above: Performed By: #### 2 870349, 7221786, 65854807, 8763224 ####[address] [address] Hemoglobin (Bld) [Mass/Vol] 13.2 g/dL Low 13.5-17.5 [facility] Comment on above: Performed By: #### 2 720850, 7528471, 65846425, 6447937 ####[address] [address] MCH (RBC) [Entitic mass] 31.1 pg Normal 27.0-34.0 [facility] Comment on above: Performed By: #### 2 618846, 3862465, 53261658, 1325802 ####[address] [address] MCHC (RBC) [Mass/Vol] 32.8 g/dL Normal 31.4-36.0 [facility] Comment on above: Performed By: #### 2 477640, 5314880, 19058946, 4157118 ####[address] [address] MCV (RBC) [Entitic vol] 94.6 fL Normal 80.0-100.0 [facility] Comment on above: Performed By: #### 2 125534, 8912579, 53673033, 4265506 ####[address] [address] Platelet mean volume (Bld) [Entitic vol] 7.9 fL Normal 6.4-10.8 [facility] Comment on above: Performed By: #### 2 794601, 9809170, 11486261, 1723968 ####[address] [address] Platelets (Bld) [#/Vol] 195.0 E9/L Normal 150.0-500.0 [facility] Comment on above: Performed By: #### 2 756204, 3546657, 26651791, 5066612 ####[address] [address] RBC (Bld) [#/Vol] 4.3 E12/L Normal 4.3-5.9 [facility] Comment on above: Performed By: #### 2 411591, 6934766, 74842282, 2500829 ####[address] [address] WBC corrected for nucl RBC Auto (Bld) [#/Vol] 7.9 E9/L Normal 4.0-11.0 [facility] Comment on above: Performed By: #### 2 424980, 0504132, 92410047, 8544392 ####[address] [address] CMPon 07-08-2023 Albumin [Mass/Vol] 3.8 g/dL Normal 3.3-5.0 [facility] Comment on above: Performed By: #### 2 714828, 9012695, 79044781, 1214149 ####[address] [place] [address] Albumin/Globulin (S) [Mass conc ratio] 0.9 Low 1.1-2.2 [facility] Comment on above: Performed By: #### 2 789257, 9157412, 16706369, 5833309 ####[facility] [address] [place] [address] ALP [Catalytic activity/Vol] 52 Int._Unit/L Normal 21-98 [facility] Comment on above: Performed By: #### 2 385586, 3179832, 03514817, 6892266 ####[facility] [address] [place] [address] ALT No additional P-5'-P [Catalytic activity/Vol] 36 Int._Unit/L Normal 6-46 [facility] Comment on above: Performed By: #### 2 687337, 8786054, 20536453, 5674069 ####[facility] [address] [place] [address] Anion gap [Moles/Vol] 14 mmol/L Normal 6-16 [facility] Comment on above: Performed By: #### 2 901861, 0398032, 24319616, 9852093 ####[facility] [address] [place] [address] AST [Catalytic activity/Vol] 49 Int._Unit/L High 5-43 [facility] Comment on above: Performed By: #### 2 461268, 4277157, 07162410, 9275627 ####[facility] [address] [place] [address] Bilirubin [Mass/Vol] 0.5 mg/dL Normal 0.0-1.1 [facility] Comment on above: Performed By: #### 2 869076, 1866728, 54145920, 0748343 ####[facility] [address] [place] [address] Calcium [Mass/Vol] 9.4 mg/dL Normal 8.9-11.1 [facility] Comment on above: Performed By: #### 2 514025, 2550925, 02911764, 6621354 ####[facility] [address] [place] [address] Chloride [Moles/Vol] 100 mmol/L Low 101-111 [facility] Comment on above: Performed By: #### 2 780395, 2091869, 30898337, 9816666 ####[facility] [address] [place] [address] CO2 [Moles/Vol] 28 mmol/L Normal 21-31 [facility] Comment on above: Performed By: #### 2 649594, 0752736, 60820241, 7224520 ####[facility] [address] [place] [address] Creatinine [Mass/Vol] 1.2 mg/dL Normal 0.5-1.3 [facility] Comment on above: Performed By: #### 2 472935, 2849900, 05290806, 4830811 ####[facility] [address] [place] [address] Globulin (S) [Mass/Vol] 4.1 g/dL High 1.4-4.0 [facility] Comment on above: Performed By: #### 2 800298, 4868118, 02123241, 2573649 ####[facility] [address] [place] [address] Glucose [Mass/Vol] 101 mg/dL Normal 55-199 [facility] Comment on above: Result Comment: If t his glucose result represents a fasting glucose, interpretation should refer to the following reference range: 55-99 mg/dL Performed By: #### 2 929545, 1320159, 50343765, 4504703 ####[facility] [address] [place] [address] Potassium [Moles/Vol] 4.7 mmol/L Normal 3.5-5.3 [facility] Comment on above: Performed By: #### 2 372224, 6669026, 47594545, 0325802 ####[facility] [address] [place] [address] Protein [Mass/Vol] 7.9 g/dL High 6.0-7.8 [facility] Comment on above: Performed By: #### 2 780504, 9509296, 06412718, 4471182 ####[facility] [address] [place] [address] Sodium [Moles/Vol] 137 mmol/L Normal 135-145 [facility] Comment on above: Performed By: #### 2 [id number], [id number], [id number], [id number] ####[facility] [address] [place] [address] Urea nitrogen [Mass/Vol] 20 mg/dL Normal 5-21 [facility] Comment on above: Performed By: #### 2 [id number], [id number], [id number], [id number] ####[facility] [address] [place] [address] Urea nitrogen/Creatinine [Mass ratio] 17 No Units Normal 10-20 [facility] Comment on above: Performed By: #### 2 [id number], [id number], [id number], [id number] ####[facility] [address] [place] [address] Consent for Treatmenton 06-13 Consent for Treatment [id number] IFF Normal [facility] D-Dimeron 07-08-2023 Fibrin D-dimer FEU (PPP) [Mass/Vol] 323 [id number] Normal 215-500 [facility] Comment on above: Result Comment: This [...] skin infectionsLiver cirrhosisPregnancy Performed By: #### 2 [id number] ####[facility] [address] [place] [address] eGFRon 07-08-2023 GFR/1.73 sq M.predicted among non-blacks MDRD (S/P/Bld) [Vol rate/Area] 63 mL/min/1.73 m2 Normal >=59 [facility] [facility] Comment on above: Order Comment: Order added by Discern Expert. Result Comment: Vacuum Spindle Sander cristo kidney disease could be indicated at eGFR's of less than 60 mL/min/1.73m2. Kidney failure is indicated at less than 15 mL/min/1.73m2. Performed By: #### 2 719418, 3284373, 31024423, 2255332 ####[facility] [address] [place] [address] Immunization Recordson 07-02 Immunization Records [id number]#1.00T IFF Normal [facility] Consent for Treatmenton 06-12 Consent for Treatment [id number]#1.00T IFF Normal [facility] Heart and Vascular Office/Cl inic Noteon 06-26-2023 Heart and Vascular Office/Clinic Note Normal [facility] Comment on above: Result Comment: Elec tronically Signed By: Chidi ESPINAL, Sarahi GJase\.br\Date and Time Signed: 06/26/23 10:23 EST Physician Orderon 06-26-2023 Physician Order [id number]#1.00 TIFF Normal [facility] Consultation Noteon 06-22-20 Consultation Note [id number]#1.00T IFF Normal [facility] Consultation Note [id number]#1.00T IFF Normal [facility] US LE Venous Duplex Insuffic iency Bilaton 06-12-2023 US LE Venous Duplex Insufficiency Bilat Normal [facility] Consent for Treatmenton 05-14 Consent for Treatment [id number]#1.00T IFF Normal [facility] RAD - MISCon 06-11-2023 RAD - MISC [id number] [id number]#1.00 TIFF Normal [facility] Consultation Noteon 06-09-20 Consultation Note [id number]#1.00TI FF Normal [facility] Consultation Note [id number] 004 [id number]#1.00T IFF Normal [facility] Physician Referralon 023 Physician Referral [id number]#1.00 TIFF Normal [facility] CHEMISTRYOrdered By: SYSTEM SYSTEM on 06-03-2023 [...] HDL [Mass/Vol] 42 mg/dL Invalid Interpretation Code [facility] Remisol Comment on above: Interpretive Data: H DL > or equal to 60 mg/dL: Low cardiovascular risk HDL < 40 mg/dL : High cardiovascular risk Cholesterol in LDL [Mass/Vol] 129 mg/dL Normal <=129mg/dL [facility] Remisol Cholesterol in VLDL [Mass/Vol] 30 mg/dL Normal 7 - 40 mg/dL [facility] Remisol Globulin (S) [Mass/Vol] 4.1 g/dL High 1.4 - 4.0 gm/dL [facility] Remisol Protein [Mass/Vol] 7.8 g/dL Normal 6.0 - 7.8 gm/dL [facility] Remisol Triglyceride [Mass/Vol] 151 mg/dL High <=149mg/dL [facility] Remisol CHEMISTRYOrdered By: Ivy Sams on 06-03-2023 HbA1c (Bld) [Mass fraction] 7.2 % High <=5.9% [facility] ChemAutoSS Consent for Treatmenton 05-13 Consent for Treatment [id number]#1.00T IFF Normal [facility] Family Medicine Office/Clini c Noteon 06-03-2023 Family Medicine Office/Clinic Note Normal [facility] Comment on above: Result Comment: Elec tronically Signed By: Mt GOODEN DO, FAAFP\kelvin\Date and Time Signed: 06/03/23 14:43 EDT Hep Func Panelon 06-03-2023 Albumin [Mass/Vol] 3.7 g/dL Normal 3.3-5.0 [facility] Comment on above: Performed By: #### 2 379851, 3160559 ####[facility] [address] [place] [address] Albumin/Globulin (S) [Mass conc ratio] 0.9 Low 1.1-2.2 [facility] Comment on above: Performed By: #### 2 323955, 7557534 ####[facility] [address] [place] [address] ALP [Catalytic activity/Vol] 53 Int._Unit/L Normal 21-98 [facility] Comment on above: Performed By: #### 2 692511, 6408555 ####[facility] [address] [place] [address] ALT No additional P-5'-P [Catalytic activity/Vol] 25 Int._Unit/L Normal 6-46 [facility] Comment on above: Performed By: #### 2 416815, 2091329 ####[address] [address] AST [Catalytic activity/Vol] 34 Int._Unit/L Normal 5-43 [facility] Comment on above: Performed By: #### 2 391417, 7349200 ####[address] [address] Bilirubin [Mass/Vol] 0.4 mg/dL Normal 0.0-1.1 [facility] Comment on above: Performed By: #### 2 745857, 8412893 ####[address] [address] Bilirubin.direct [Mass/Vol] 0.1 mg/dL Normal 0.1-0.4 [facility] Comment on above: Performed By: #### 2 130286, 3185581 ####[address] [address] Bilirubin.indirect [Mass or moles/Vol] 0.3 mg/dL Normal 0.1-0.9 [facility] Comment on above: Performed By: #### 2 750296, 7721463 ####[address] [address] Globulin (S) [Mass/Vol] 4.1 g/dL High 1.4-4.0 [facility] Comment on above: Performed By: #### 2 592850, 3892729 ####[address] [address] Protein [Mass/Vol] 7.8 g/dL Normal 6.0-7.8 [facility] Comment on above: Performed By: #### 2 773966, 7788720 ####[facility] [address] [place] [address] HsjP8oqs 06-03-2023 HbA1c (Bld) [Mass fraction] 7.2 % High <=5.9 [facility] Comment on above: Performed By: #### 7 [id number] ####[facility] [address] [place] [address] Lipid Panelon 06-03-2023 Cholesterol [Mass/Vol] 196 mg/dL Normal 120-200 [facility] Comment on above: Performed By: #### 2 110937, 9827025 ####[facility] [address] [place] [address] Cholesterol in HDL [Mass/Vol] 42 mg/dL Invalid Interpretation Code [facility] Comment on above: Result Comment: HDL > or equal to 60 mg/dL: Low cardiovascular riskHDL < 40 mg/dL : High cardiovascular risk Performed By: #### 2 061719, 6459677 ####[facility] [address] [place] [address] Cholesterol in LDL [Mass/Vol] 129 mg/dL Normal <=129 [facility] Comment on above: Performed By: #### 2 660678, 4730495 ####[facility] [address] [place] [address] Cholesterol in VLDL [Mass/Vol] 30 mg/dL Normal 7-40 [facility] Comment on above: Performed By: #### 2 763533, 6898032 ####[facility] [address] [place] [address] Triglyceride [Mass/Vol] 151 mg/dL High <=149 [facility] Comment on above: Performed By: #### 2 396490, 6259410 ####[facility] [address] [place] [address] Patient Educationon 06-03-20 23 Patient Education Normal [facility] Physician Orderon 05-30-2023 Physician Order [id number]#1.00T IFF [facility] Consultation Noteon 05-28-20 Consultation Note [id number] 003 [id number]#1.00T IFF [facility] Consultation Noteon 05-27-20 Consultation Note [id number] 002 [id number]#1.00T IFF [facility] Immunization Recordson 05-22 Immunization Records [id number]#1.00 TIFF [facility] Consultation Noteon 05-16-20 Consultation Note [id number] 005 [id number]#1.00T IFF [facility] Consent for Procedure/Surger yon 04-23-2023 Consent for Procedure/Surgery [id number]#1.00 CD:127 [facility] Consent for Treatmenton 04-12 Consent for Treatment [id number]#1.00C D:127 [facility] Consent to Photographon 04-12 Consent to Photograph [id number]#1.00 CD:127 [facility] Correspondence - Woundon Correspondence - Wound [id number]#1.00 CD:127 [facility] Correspondence - Wound [id number]#1.00 CD:127 [facility] Multi-Wound Charton 04-23-20 Multi-Wound Chart [id number]#1.00 CD:127 [facility] Nursing Assessment - Woundon 04-23-2023 Nursing Assessment - Wound [id number]#2.00 CD:127 [facility] Nursing Assessment - Wound [id number]#1.00 CD:127 Normal [facility] Nursing Note - Woundon 04-23 Nursing Note - Wound [id number]#1.00 CD:127 Normal [facility] Physician Orderon 04-23-2023 Physician Order [id number]#1.00 CD:127 Normal [facility] Procedure - Woundon 04-23-20 Procedure - Wound [id number] [id number]#1.00 CD:127 Normal [facility] Progress Note - Woundon 04-12 Progress Note - Wound [id number]#1.00 CD:127 Normal [facility] Lab Miscellaneous-LCon 04-12 Lab Miscellaneous COMMENT Invalid Interpretation Code [facility] Comment on above: Result Comment: Test Ordered: 070585 Antithrombin ActivityAntithrombin Activity 109 % BNReference Range: 75-135Direct Xa inhibitor anticoagulants such as rivaroxaban, apixaban andedoxaban will lead to spuriously elevated antithrombin activitylevels possibly masking a deficiency.Performed at: [address] [id number] PhD Quinn Pinedo Performed By: #### 1 [id number] ####[facility] [address] [place] [address] COAGULATIONOrdered By: Claudia Caballero on 04-10-2023 Fibrin D-dimer FEU (PPP) [Mass/Vol] 552 ng/mL FEU Invalid Interpretation Code 215 - 500 ng/mL FEU [facility] Auto Coag Comment on above: Result Comment: Resu lts Called To Shabana Zendejas By JUDIE_ And Read Back For Confirmation On 04/10/2023 08:58:49 EDT_. Consent for Treatmenton 03-14 Consent for Treatment [id number]#1.00C D:127 Normal [facility] D-Dimeron 04-10-2023 Fibrin D-dimer FEU (PPP) [Mass/Vol] 552 CD:[id number] Abnormal 215-500 [facility] Comment on above: Result Comment: Resu lts Called To Shabanaleelee Zendejas By JUDIE_ And Read Back For [...] skin infectionsLiver cirrhosisPregnancy Performed By: #### 2 017974 ####[facility] [address] [place] [address]2457 Lab Miscellaneous-LCon 04-10 Test Code 392608 Invalid Interpretation Code [facility] Comment on above: Performed By: #### 1 [id number] ####[facility] [address] [place] [address]24[address] Test Name AT activ Invalid Interpretation Code [facility] Comment on above: Performed By: #### 1 [id number] ####[facility] [address] [place] [address] Reference Laboratory Testing Ordered By: Sylwia Lubin on 04-10-2023 Test Code 968706 Invalid Interpretation Code [facility] SendOuts Test Name AT activ Invalid Interpretation Code [facility] SendOutsSS Consent for Treatmenton 03-13 Consent for Treatment [id number]#1.00C D:127 Normal [facility] Oncology Noteon 04-09-2023 Oncology Note Normal [facility] Comment on above: Result Comment: Elec tronically Signed By: Charles MARTINEZ, Isabelle\.br\Date and Time Signed: 04/09/23 11:08 EDT Oncology Progress Noteon Oncology Progress Note Normal [facility] Auto Diffon 04-05-2023 Basophils/100 WBC (Bld) 0.7 % Normal 0.0-2.0 [facility] Comment on above: Order Comment: Order Added by Discern Expert. Performed By: #### 2 307303, 3162767, 6504928, 72337582 ####[facility] [address] [place] [address] Basophils/Leukocyte s Auto (Bld) [Pure # fraction] 0.0 E9/L Normal 0.0-0.2 [facility] Comment on above: Order Comment: Order Added by Discern Expert. Performed By: #### 2 165884, 6476553, 6621209, 19006881 ####[facility] [address] [place] [address] Eosinophils/100 WBC (Bld) 3.3 % Normal 0.0-8.0 [facility] Comment on above: Order Comment: Order Added by Discern Expert. Performed By: #### 2 351735, 8748125, 5477782, 56151572 ####[facility] [address] [place] [address] Eosinophils/Leukocy camden Auto (Bld) [Pure # fraction] 0.2 E9/L Normal 0.0-0.5 [facility] Comment on above: Order Comment: Order Added by Discern Expert. Performed By: #### 2 668097, 5329982, 8650800, 85795602 ####[facility] [address] [place] [address] Lymphocytes/100 WBC (Bld) 27.4 % Normal 14.0-50.0 [facility] Comment on above: Order Comment: Order Added by Discern Expert. Performed By: #### 2 921595, 2323466, 9062955, 52302528 ####[address] [address] Lymphocytes/Leukocy cam[place] Auto (Bld) [Pure # fraction] 1.6 E9/L Normal 1.0-4.0 [facility] Comment on above: Order Comment: Order Added by Discern Expert. Performed By: #### 2 488460, 5296551, 2271019, 89704461 ####[address] [address] Monocytes/100 WBC (Bld) 8.2 % Normal 4.0-14.0 [facility] Comment on above: Order Comment: Order Added by Discern Expert. Performed By: #### 2 584867, 0569935, 9392980, 95469956 ####[address] [address] Monocytes/Leukocyte s Auto (Bld) [Pure # fraction] 0.5 E9/L Normal 0.2-1.0 [facility] Comment on above: Order Comment: Order Added by Discern Expert. Performed By: #### 2 391046, 0048002, 5847773, 65805500 ####[address] [address] Neutrophils/100 WBC (Bld) 60.4 % Normal 36.0-75.0 [facility] Comment on above: Order Comment: Order Added by Discern Expert. Performed By: #### 2 916051, 0945535, 7228120, 83549733 ####[address] [address] Neutrophils/Leukocy camden Auto (Bld) [Pure # fraction] 3.6 E9/L Normal 2.0-7.5 [facility] Comment on above: Order Comment: Order Added by Discern Expert. Performed By: #### 2 539916, 2916277, 7551548, 75640820 ####[address] [place] [place] [address] CBC w/ Auto Diffon 3 Erythrocyte distribution width (RBC) [Ratio] 14.5 % High 10.9-14.2 [facility] Comment on above: Performed By: #### 2 809569, 9275101, 8833212, 81448187 ####[place] [place] [address] Hematocrit (Bld) [Volume fraction] 39.5 % Normal 37.7-49.0 [facility] Comment on above: Performed By: #### 2 713065, 2175055, 5097313, 99545223 ####[address] [address] Hemoglobin (Bld) [Mass/Vol] 13.2 g/dL Low 13.5-17.5 [facility] Comment on above: Performed By: #### 2 947254, 2026409, 5590290, 35716938 ####[address] [address] MCH (RBC) [Entitic mass] 31.3 pg Normal 27.0-34.0 [facility] Comment on above: Performed By: #### 2 940958, 9155665, 9300368, 81618674 ####[address] [address] MCHC (RBC) [Mass/Vol] 33.4 g/dL Normal 31.4-36.0 [facility] Comment on above: Performed By: #### 2 404951, 3970646, 1562779, 26913601 ####[address] [address] MCV (RBC) [Entitic vol] 93.8 fL Normal 80.0-100.0 [facility] Comment on above: Performed By: #### 2 317504, 6416513, 0663482, 31140029 ####[place] [place] [address] Platelet mean volume (Bld) [Entitic vol] 7.8 fL Normal 6.4-10.8 [facility] Comment on above: Performed By: #### 2 324221, 5538201, 7911062, 57536166 ####[facility] [address] [place] [address] Platelets (Bld) [#/Vol] 152.0 E9/L Normal 150.0-500.0 [facility] Comment on above: Performed By: #### 2 632765, 1118948, 3419257, 20270230 ####[facility] [address] [place] [address] RBC (Bld) [#/Vol] 4.2 E12/L Low 4.3-5.9 [facility] Comment on above: Performed By: #### 2 270480, 6476468, 2807606, 87860626 ####[facility] [address] [place] [address] WBC corrected for nucl RBC Auto (Bld) [#/Vol] 6.0 E9/L Normal 4.0-11.0 [facility] Comment on above: Performed By: #### 2 050622, 7576901, 1716252, 26690777 ####[facility] [address] [place] [address] CHEMISTRYOrdered By: SYSTEM SYSTEM on 04-05-2023 Albumin [...] 30 mmol/L Normal 21 - 31 mmol/L [facility] Remisol Creatinine [Mass/Vol] 1.0 mg/dL Normal 0.5 - 1.3 mg/dL [facility] Remisol GFR/1.73 sq M.predicted among non-blacks MDRD (S/P/Bld) [Vol rate/Area] 78 mL/min/1.73 m2 Normal >=59mL/min/1.73 m2 [facility] Chem S Globulin (S) [Mass/Vol] 3.7 g/dL Normal 1.4 - 4.0 gm/dL [facility] Remisol Glucose [Mass/Vol] 153 mg/dL Normal 55 - 199 mg/dL [facility] Remisol Potassium [Moles/Vol] 3.9 mmol/L Normal 3.5 - 5.3 mmol/L [facility] Remisol Protein [Mass/Vol] 7.2 g/dL Normal 6.0 - 7.8 gm/dL [facility] Remisol Sodium [Moles/Vol] 136 mmol/L Normal 135 - 145 mmol/L [facility] Remisol Urea nitrogen [Mass/Vol] 17 mg/dL Normal 5 - 21 mg/dL [facility] Remisol Urea nitrogen/Creatinine [Mass ratio] 17 mg/mg Normal 10 - 20 FT Remisol CMPon 04-05-2023 Anion gap [Moles/Vol] 13 mmol/L Normal 6-16 [facility] Comment on above: Performed By: #### 2 849905, 8197108, 6324931, 62670941 ####[facility] [address] [place] [address] Calcium [Mass/Vol] 8.8 mg/dL Low 8.9-11.1 [facility] Comment on above: Performed By: #### 2 351704, 7739418, 3577662, 37459098 ####[facility] [address] [place] [address] Chloride [Moles/Vol] 97 mmol/L Low 101-111 [facility] Comment on above: Performed By: #### 2 376724, 6679426, 8911750, 97401977 ####[facility] [address] [place] [address] CO2 [Moles/Vol] 30 mmol/L Normal 21-31 [facility] Comment on above: Performed By: #### 2 691240, 0429697, 4812729, 40060998 ####[facility] [address] [place] [address] Glucose [Mass/Vol] 153 mg/dL Normal 55-199 [facility] Comment on above: Result Comment: If t his glucose result represents a fasting glucose, interpretation should refer to the following reference range: 55-99 mg/dL Performed By: #### 2 628724, 5787559, 9739479, 50259314 ####[facility] [address] [place] [address] Potassium [Moles/Vol] 3.9 mmol/L Normal 3.5-5.3 [facility] Comment on above: Performed By: #### 2 921525, 9973342, 2251157, 90993089 ####[facility] [address] [place] [address] Sodium [Moles/Vol] 136 mmol/L Normal 135-145 [facility] Comment on above: Performed By: #### 2 942293, 1205080, 8578708, 20751732 ####[facility] [address] [place] [address] Albumin [Mass/Vol] 3.5 g/dL Normal 3.3-5.0 [facility] Comment on above: Performed By: #### 2 002982, 0781893, 0449717, 19156965 ####[facility] [address] [place] [address] Albumin/Globulin (S) [Mass conc ratio] 1.0 Low 1.1-2.2 [facility] Comment on above: Performed By: #### 2 894697, 1269504, 7185654, 23131697 ####[facility] [address] [place] [address] ALP [Catalytic activity/Vol] 51 Int._Unit/L Normal 21-98 [facility] Comment on above: Performed By: #### 2 778469, 5605809, 1210359, 49726756 ####[facility] [address] [place] [address] ALT No additional P-5'-P [Catalytic activity/Vol] 31 Int._Unit/L Normal 6-46 [facility] Comment on above: Performed By: #### 2 521945, 0861322, 5873267, 37754431 ####[facility] [address] [place] [address] AST [Catalytic activity/Vol] 41 Int._Unit/L Normal 5-43 [facility] Comment on above: Performed By: #### 2 297415, 0879352, 0704330, 44268772 ####[facility] [address] [place] [address] Bilirubin [Mass/Vol] 0.6 mg/dL Normal 0.0-1.1 [facility] Comment on above: Performed By: #### 2 403409, 4676044, 5069627, 37623754 ####[facility] [address] [place] [address] Creatinine [Mass/Vol] 1.0 mg/dL Normal 0.5-1.3 [facility] Comment on above: Performed By: #### 2 225004, 6940599, 6433378, 52547377 ####[facility] [address] [place] [address] Globulin (S) [Mass/Vol] 3.7 g/dL Normal 1.4-4.0 [facility] Comment on above: Performed By: #### 2 544209, 9678203, 5389587, 02861047 ####[facility] [address] [place] [address] Protein [Mass/Vol] 7.2 g/dL Normal 6.0-7.8 [facility] Comment on above: Performed By: #### 2 350251, 8615374, 5068906, 32434717 ####[facility] [address] [place] [address] Urea nitrogen [Mass/Vol] 17 mg/dL Normal 5-21 [facility] Comment on above: Performed By: #### 2 141789, 6402070, 4809260, 73243286 ####[facility] [address] [place] [address] Urea nitrogen/Creatinine [Mass ratio] 17 No Units Normal 10-20 [facility] Comment on above: Performed By: #### 2 138093, 2782570, 1249724, 08972085 ####[facility] [address] [place] [address] Consent for Treatmenton 03-13 Consent for Treatment [id number]#1.00C D:127 Normal [facility] HEMATOLOGYOrdered By: SYSTEM SYSTEM on 04-05-2023 [...] 152.0 E9/L Normal 150.0 - 500.0 E9/L [facility] HemeAutoSS RBC (Bld) [#/Vol] 4.2 E12/L Low 4.3 - 5.9 E12/L [facility] HemeAutoSS WBC corrected for nucl RBC Auto (Bld) [#/Vol] 6.0 E9/L Normal 4.0 - 11.0 E9/L [facility] HemeAutoSS eGFRon 04-05-2023 GFR/1.73 sq M.predicted among non-blacks MDRD (S/P/Bld) [Vol rate/Area] 78 mL/min/1.73 m2 Normal >=59 [facility] Comment on above: Order Comment: Order added by Discern Expert. Result Comment: Vacuum Spindle Sander cristo kidney disease could be indicated at eGFR's of less than 60 mL/min/1.73m2. Kidney failure is indicated at less than 15 mL/min/1.73m2. Performed By: #### 2 541316, 2635983, 7487631, 30962113 ####[address] [place] [address] Patient Eval Forms Officeon 04-01-2023 Patient Eval Forms Office [id number]#1.00C D:127 Normal [facility] Consent for Treatmenton 03-12 Consent for Treatment [id number]#1.00C D:127 Normal [facility] Sleep Office/Clinic Noteon 0 03-29-2023 Sleep Office/Clinic Note Normal [facility] Comment on above: Result Comment: Elec tronically Signed By: Chidi ESPINAL, Matty GJase\.br\Date and Time Signed: 03/29/23 10:20 EDT Population Healthon 03-21-20 Population Health Normal [facility] C Blood Charcoalon Blood Culture Charcoal Normal [facility] Comment on above: Performed By: #### 1 7540804 ####[address] [place] [address] Blood Culture Charcoal Normal [facility] Comment on above: Performed By: #### 1 6814453 ####[address] [place] [address] .VIPER VENOM MIXING STUDYon 03-18-2023 dRVVT w 1:1 PNP Coag (PPP) [Time] 45.3 second(s) High 0.0-40.4 [facility] Comment on above: Result Comment: Perf ormed at: [facility] [address] [id number] MD Taye Sadler Performed By: #### 1 3382279, 80815867, 031655608, 2712077, 41279328, 7137792, 0268050, 68620499, 7723885 ####[facility] [address] [place] [address] Beta-2 Glycoprot.i Aon 03-18 Beta 2 glycoprotein 1 IgA Qn (S) <9 Invalid Interpretation Code 0-25 [facility] Comment on above: Result Comment: The reference interval reflects a 3SD or 99th percentile interval,which is thought to represent a potentially clinically significantresult in accordance with the International Consensus Statement onthe classification criteria for definitive antiphospholipid syndrome(APS). J Thromb Haem 2006;4:295-306. Performed By: #### 1 9791701, 41810967, 156776630, 3766074, 98633746, 9835927, 4192395, 20123643, 2683737 ####[facility] [address] [place] [address] Beta 2 glycoprotein 1 IgG Qn (S) <9 Invalid Interpretation Code 0-20 [facility] Comment on above: Result Comment: The reference interval reflects a 3SD or 99th percentile interval,which is thought to represent a potentially clinically significantresult in accordance with the International Consensus Statement onthe classification criteria for definitive antiphospholipid syndrome(APS). J Thromb Haem 2006;4:295-306. Performed By: #### 1 8433447, 16766219, 942047137, 6247726, 43526434, 2770117, 6813496, 56964096, 5775496 ####[facility] [address] [place] [address] Beta 2 glycoprotein 1 IgM Qn (S) <9 Invalid Interpretation Code 0-32 [facility] Comment on above: Result Comment: The reference interval reflects a 3SD or 99th percentile interval,which is thought to represent a potentially clinically significantresult in accordance with the International Consensus Statement onthe classification criteria for definitive antiphospholipid syndrome(APS). J Thromb Haem 2006;4:295-306.Performed at: [address] [id number] MD Taye Sadler Performed By: #### 1 0935433, 32831991, 864870583, 6911300, 71455277, 7815589, 8095971, 85855456, 8080282 ####[facility] [address] [place] [address] Consultation Noteon 03-18-20 Consultation Note [id number]#1.00C D:127 Normal [facility] Factor II, DNA Analysison F2 gene c.25478Q>A genotype Molgen (Bld/Tiss) Comment Invalid Interpretation Code [facility] Comment on above: Result Comment: Resu [...] in theF2 gene and a c.1601G>A (p. Kqo309Ybu) variant in the F5 gene(commonly referred to as Factor V Leiden) have an approximately 20-fold increased risk for venous thromboembolism. Risks are likely willard even higher in more complex genotype combinations involving theF2 c.*97G>A variant and Factor V Leiden (PMID: 55600655). Additionalrisk factors include but are not limited [...] for health care providers to discussresults at [phone] (0840).Test Details:Variant analyzed: c.*97G>A, previously referred to as [id number]/Limitations:DNA analysis of the F2 gene (NM_000506.5) was [...] was developed and its performance characteristics determinedby [facility]. It has not been cleared or approved by the Food and DrugAdministration.References:Lonny Patel, Leonie BURNETT, Geovani R, Nakul WW, González JH; [employer] ProfessionalPractice and Guidelines Committee. Addendum: [place] [employer] consensus statement on factor V Leiden mutationtesting. Evon Med. 2020Oct 14. doi: 10.1038/[id number].PMID: 02587906.Sharif GUERRA. Prothrombin Thrombophilia. 2005Mar 05[Updated 2020Sep 15]. In: Douglas MP, Corey HH, Sierra RA, et al.,editors. Khushi(R) [Internet]. [place] ([place]): [facility]; 1248-5751. Available from:https://www.ncbi.nlm.nih.gov/books/MKI0880/Nathan Patel, Leonie BURNETT, Keagan X, Raghav B, Celina EB, Caroline P, Jamey CS;[facility] Laboratory Slitter And Cutter Operator Committee. Venous thromboembolismlaboratory testing (factor V Leiden and factor II c.*97G>A),2018 update: a technical standard of the [place] [employer] and [employer] ([employer]MG). Evon Med. 2017;20(12):8492-7307.doi: 10.1038/[id number]. Epub 2017May 16. PMID: 98681780. Performed By: #### 1 4028343, 71906339, 805716646, 9568340, 49682988, 3003930, 7217785, 05336000, 6853968 ####[facility] [address] [place] [address] Factor V Leidenon 03-18-2023 F5 gene p.Xnf246Iug Molgen Ql (Bld/Tiss) Comment Invalid Interpretation Code [facility] Comment on above: Result Comment: Resu lt: c.1601G>A (p.Cpm294Ken) - Not DetectedThis result is not associated with an increased risk for venousthromboembolism. See Additional Clinical Information andComments.Additional Clinical Information:Venous thromboembolism is a multifactorial disease influenced bygenetic, environmental, and circumstantial risk factors. The c.1601G>A(p. Spl154Fhv) variant in the F5 gene, commonly referred [...] F2 c.*97G>A variant andFactor V Leiden (PMID: 92675069). Additional risk factors include butare not limited [...] for health care providers todiscuss results at [phone] (7589).Test Details:Variant Analyzed: c.1601G>A (p. Acr679Zks), referred to as Factor VLeidenMethods/Limitations:DNA analysis of [...] was developed and its performance characteristicsdetermined by [facility]. It has not been cleared or approved by theFood and Drug Administration.References:Lonny Patel, Leonie BURNETT, Geovani R, Nakul WW, González JH; [employer] ProfessionalPractice and Guidelines Committee. Addendum: [place] [employer] consensus statement on factor V Leiden mutationtesting. Evon Med. 2020Oct 14. doi: 10.1038/[id number].PMID: 56757936.Sharif GUERRA. Factor V Leiden Thrombophilia. 1998December 23(Updated 2017Aug 15). In: Douglas MP, Corey HH, Sierra RA, et al.,editors. [employer] Servicesleisa(R) (Internet). [place] ([place]): [facility]; 7942-7083. Available from:https://www.ncbi.nlm.nih.gov/books/NOG0056/Nathan Patel, Leonie BURNETT, Keagan X, Raghav B, Celina EB, Caroline P, Jamey CS;[facility] Laboratory Slitter And Cutter Operator Committee. Venous thromboembolismlaboratory testing (factor V Leiden and factor II c.*97G>A), 2018update: a technical standard of the [place] [employer] and Gen[employer] (ACMG). Evon Med. 2017;20(12):1294-9694.doi: 10.1038/[id number]-[id number]. Epub 2017May 16. PMID: 48078858. Performed By: #### 1 0585112, 59526504, 260941499, 7098470, 39021715, 5580715, 3887735, 75071560, 4043119 ####[facility] [address] [place] [address] Lupus Anticoagon 03-18-2023 aPTT.lupus sensitive Coag (PPP) [Time] 32.6 second(s) Invalid Interpretation Code 0.0-43.5 [facility] Comment on above: Performed By: #### 1 8414791, 81127693, 815478882, 5272713, 03100950, 4013749, 5949152, 82724679, 0542053 ####[address] [place] [address] dRVVT Coag (PPP) [Time] 50.9 second(s) High 0.0-47.0 [facility] Comment on above: Result Comment: Perf ormed at: [facility] [address] [id number] MD Taye Sadler Performed By: #### 1 1847700, 93579589, 935200196, 8913631, 38051975, 3539504, 7921548, 99841699, 5580278 ####[address] [place] [address] Lupus anticoagulant two screening tests W Reflex Coag (PPP) [Interp] Comment: Invalid Interpretation Code [facility] Comment on above: Result Comment: No l upus anticoagulant was detected. These results are consistent withspecific inhibitors to one or more common pathway factors (X, V, II orfibrinogen).Performed at: [facility] [address] [id number] MD Taye Sadler Performed By: #### 1 2420455, 48329115, 736326349, 5716076, 07853473, 3023336, 2119910, 06225352, 7727313 ####[address] [place] [address] dRVVT CONFIRMon 03-18-2023 dRVVT/dRVVT.excess phospholipid Coag (PPP) [Ratio] 0.9 ratio Invalid Interpretation Code 0.8-1.2 [facility] Comment on above: Result Comment: Perf ormed at: [facility] [address] [id number] MD Taye Sadler Performed By: #### 1 7928119, 09171231, 669112251, 1139604, 82987247, 7339328, 4760849, 63518780, 5612782 ####[facility] [address] [place] [address] Auto Diffon 03-13-2023 Basophils/100 WBC (Bld) 0.6 % Normal 0.0-2.0 [facility] Comment on above: Order Comment: Order Added by Discern Expert. Performed By: #### 2 562649, 5044317, 9652834, 72289242, 87309966, 67338272, 9340901, 0049115 ####[facility] [address] [place] [address] Basophils/Leukocyte s Auto (Bld) [Pure # fraction] 0.1 E9/L Normal 0.0-0.2 [facility] Comment on above: Order Comment: Order Added by Discern Expert. Performed By: #### 2 884333, 4269728, 8379030, 59685206, 50547246, 62716414, 6163805, 6518303 ####[facility] [address] [place] [address] Eosinophils/100 WBC (Bld) 2.2 % Normal 0.0-8.0 [facility] Comment on above: Order Comment: Order Added by Discern Expert. Performed By: #### 2 573245, 8707047, 4977435, 33619491, 70647060, 66085309, 7818464, 3482651 ####[facility] [address] [place] [address] Eosinophils/Leukocy camden Auto (Bld) [Pure # fraction] 0.2 E9/L Normal 0.0-0.5 [facility] Comment on above: Order Comment: Order Added by Discern Expert. Performed By: #### 2 523037, 7080143, 8103388, 75190613, 08515178, 49163221, 1166457, 2240922 ####[facility] [address] [place] [address] Lymphocytes/100 WBC (Bld) 20.6 % Normal 14.0-50.0 [facility] Comment on above: Order Comment: Order Added by Discern Expert. Performed By: #### 2 211218, 5825089, 4661215, 07818498, 04663660, 84998414, 8928610, 9533924 ####[address] [address] Lymphocytes/Leukocy cam[place] Auto (Bld) [Pure # fraction] 1.8 E9/L Normal 1.0-4.0 [facility] Comment on above: Order Comment: Order Added by Discern Expert. Performed By: #### 2 723705, 7363597, 3072413, 97654759, 93060945, 66271023, 6861620, 1138009 ####[address] [address] Monocytes/100 WBC (Bld) 7.6 % Normal 4.0-14.0 [facility] Comment on above: Order Comment: Order Added by Discern Expert. Performed By: #### 2 774353, 8357262, 4809393, 35097358, 53393645, 78810675, 9758811, 3782373 ####[facility] [address] [place] [address] Monocytes/Leukocyte s Auto (Bld) [Pure # fraction] 0.7 E9/L Normal 0.2-1.0 [facility] Comment on above: Order Comment: Order Added by Discern Expert. Performed By: #### 2 306726, 8424542, 6381686, 50722067, 25268633, 96311162, 2667358, 2705508 ####[address] [place] [address] Neutrophils/100 WBC (Bld) 69.0 % Normal 36.0-75.0 [facility] Comment on above: Order Comment: Order Added by Discern Expert. Performed By: #### 2 337126, 6176109, 4293016, 40397532, 58635433, 93312393, 2226685, 6267976 ####[facility] [address] [place] [address] Neutrophils/Leukocy camden Auto (Bld) [Pure # fraction] 6.1 E9/L Normal 2.0-7.5 [facility] Comment on above: Order Comment: Order Added by Discern Expert. Performed By: #### 2 360269, 7927893, 2581897, 36236970, 25126670, 31112172, 2839411, 7497360 ####[facility] [address] [place] [address] BMPon 03-13-2023 Creatinine [Mass/Vol] 0.9 mg/dL Normal 0.5-1.3 [facility] Comment on above: Performed By: #### 2 894428, 0493502, 8891752, 84715501, 49463618, 43966771, 0452952, 4676399 ####[facility] [address] [place] [address] Urea nitrogen [Mass/Vol] 15 mg/dL Normal 5-21 [facility] Comment on above: Performed By: #### 2 972952, 7804832, 9164746, 05032408, 72494016, 67388888, 8747807, 2686354 ####[facility] [address] [place] [address] Urea nitrogen/Creatinine [Mass ratio] 17 No Units Normal 10-20 [facility] Comment on above: Performed By: #### 2 821919, 9758335, 1068060, 03587400, 07797164, 74920922, 5126481, 8729884 ####[facility] [address] [place] [address] Anion gap [Moles/Vol] 12 mmol/L Normal 6-16 [facility] Comment on above: Performed By: #### 2 865337, 5993629, 4252680, 11192310, 90571241, 52902242, 1565940, 7876442 ####[facility] [address] [place] [address] Calcium [Mass/Vol] 8.6 mg/dL Low 8.9-11.1 [facility] Comment on above: Performed By: #### 2 213358, 6420455, 8212790, 00424085, 82436118, 00549595, 6714525, 2814205 ####[facility] [address] [place] [address] Chloride [Moles/Vol] 103 mmol/L Normal 101-111 [facility] Comment on above: Performed By: #### 2 550029, 0055750, 1294758, 33009169, 67956373, 75491475, 1066689, 7029032 ####[facility] [address] [place] [address] CO2 [Moles/Vol] 26 mmol/L Normal 21-31 [facility] Comment on above: Performed By: #### 2 724325, 5210078, 6031437, 98721092, 48150250, 79834785, 5810466, 5778270 ####[facility] [address] [place] [address] Glucose [Mass/Vol] 124 mg/dL Normal 55-199 [facility] Comment on above: Result Comment: If t his glucose result represents a fasting glucose, interpretation should refer to the following reference range: 55-99 mg/dL Performed By: #### 2 113006, 0549920, 6397419, 56264042, 87572238, 54485758, 6217853, 8846729 ####[facility] [address] [place] [address] Potassium [Moles/Vol] 4.0 mmol/L Normal 3.5-5.3 [facility] Comment on above: Performed By: #### 2 982864, 8975183, 2691764, 27083385, 70712402, 60862858, 6469304, 4098727 ####[facility] [address] [place] [address] Sodium [Moles/Vol] 137 mmol/L Normal 135-145 [facility] Comment on above: Performed By: #### 2 765423, 7875095, 8756056, 39740152, 82694004, 09113584, 6121274, 5950225 ####[facility] [address] [place] [address] BNPon 03-13-2023 Int Ctr BNP Pass Normal [facility] Comment on above: Performed By: #### 2 307632, 5890405, 0980915, 00032942, 37195813, 01820903, 6652794, 1998414 ####[address] [address] Natriuretic peptide B (Bld) [Mass/Vol] 16 pg/mL Normal 5-80 [facility] Comment on above: Performed By: #### 2 697490, 0692878, 2161883, 64144429, 44488116, 02194335, 1661553, 9642683 ####[address] [place] [address] CBC w/ Auto Diffon 3 Erythrocyte distribution width (RBC) [Ratio] 14.6 % High 10.9-14.2 [facility] Comment on above: Performed By: #### 2 672193, 2610922, 7228532, 54612671, 54575471, 56814381, 4970694, 7920015 ####[address] [place] [address] Hematocrit (Bld) [Volume fraction] 38.2 % Normal 37.7-49.0 [facility] Comment on above: Performed By: #### 2 875217, 5372766, 0096694, 45694385, 54566809, 19330938, 8345913, 4206288 ####[address] [place] [address] Hemoglobin (Bld) [Mass/Vol] 13.0 g/dL Low 13.5-17.5 [facility] Comment on above: Performed By: #### 2 016732, 8655959, 1937858, 97970808, 61576960, 41116440, 4383694, 4619623 ####[address] [place] [address] MCH (RBC) [Entitic mass] 31.5 pg Normal 27.0-34.0 [facility] Comment on above: Performed By: #### 2 769367, 3002576, 2828954, 91860187, 37361152, 31398530, 1968920, 1739618 ####[address] [address] MCHC (RBC) [Mass/Vol] 34.0 g/dL Normal 31.4-36.0 [facility] Comment on above: Performed By: #### 2 782109, 3064515, 9480973, 12403113, 37664018, 04111852, 8299666, 9496246 ####[address] [address] MCV (RBC) [Entitic vol] 92.7 fL Normal 80.0-100.0 [facility] Comment on above: Performed By: #### 2 570453, 7496493, 4390044, 67085738, 80531880, 85764513, 8075034, 7170049 ####[address] [place] [address] Platelet mean volume (Bld) [Entitic vol] 7.9 fL Normal 6.4-10.8 [facility] Comment on above: Performed By: #### 2 661448, 0000257, 4437969, 36647247, 64199942, 49804783, 4903201, 7425929 ####[address] [place] [address] Platelets (Bld) [#/Vol] 137.0 E9/L Low 150.0-500.0 [facility] Comment on above: Performed By: #### 2 595974, 8146011, 1503705, 94030552, 38403780, 53193006, 0340034, 0635134 ####[facility] [address] [place] [address] RBC (Bld) [#/Vol] 4.1 E12/L Low 4.3-5.9 [facility] Comment on above: Performed By: #### 2 950771, 6799224, 7208869, 62595114, 88316331, 38672174, 9770279, 7188433 ####[facility] [address] [place] [address] WBC corrected for nucl RBC Auto (Bld) [#/Vol] 8.9 E9/L Normal 4.0-11.0 [facility] Comment on above: Performed By: #### 2 961299, 2515496, 8145334, 59440758, 86034490, 61427256, 8999062, 8182955 ####[facility] [address] [place] [address] CHEMISTRYOrdered By: SYSTEM SYSTEM on 03-13-2023 Anion gap [Moles/Vol] 12 mmol/L Normal 6 - 16 mEq/L FT Remisol Calcium [Mass/Vol] 8.6 mg/dL Low 8.9 - 11.1 mg/dL [facility]isol Chloride [Moles/Vol] 103 mmol/L Normal 101 - 111 mmol/L [facility]isol CO2 [Moles/Vol] 26 mmol/L Normal 21 - 31 mmol/L [facility] Remisol Creatinine [Mass/Vol] 0.9 mg/dL Normal 0.5 - 1.3 mg/dL [facility] Remisol CRP [Mass/Vol] 1.3 mg/dL Normal <=1.9mg/dL [facility] Remisol GFR/1.73 sq M.predicted among non-blacks MDRD (S/P/Bld) [Vol rate/Area] 89 mL/min/1.73 m2 Normal >=59mL/min/1.73 m2 [facility] Chem S Glucose [Mass/Vol] 124 mg/dL Normal 55 - 199 mg/dL [facility] Remisol Lactate [Mass/Vol] 3.0 mmol/L High 0.5 - 2.2 mmol/L [facility] Remisol Potassium [Moles/Vol] 4.0 mmol/L Normal 3.5 - 5.3 mmol/L [facility] Remisol Sodium [Moles/Vol] 137 mmol/L Normal 135 - 145 mmol/L [facility] Remisol Troponin I.cardiac [Mass/Vol] 10.20 pg/mL Low 15.90 - 38.40 pg/mL [facility] Remisol Urea nitrogen [Mass/Vol] 15 mg/dL Normal 5 - 21 mg/dL [facility] nitrogen/Creatinine [Mass ratio] 17 mg/mg Normal 10 - 20 [facility] CHEMISTRYOrdered By: Yandel Caballero on 03-13-2023 Natriuretic peptide B (Bld) [Mass/Vol] 16 pg/mL Normal 5 - 80 pg/mL [facility] HemeManSS CRPon 03-13-2023 CRP [Mass/Vol] 1.3 mg/dL Normal <=1.9 [facility] Comment on above: Performed By: #### 2 138735, 1675931, 6537739, 19618100, 34672914, 08907682, 0911625, 9764318 ####[facility] [address] [place] [address] Consenton 03-13-2023 Consent [id number]#1.00 CD:127 Normal [facility] Consent for Treatmenton Consent for Treatment [id number]#1.00C D:127 Normal [facility] Discharge Instructionson Discharge Instructions [id number]#1.00 CD:127 Normal [facility] ED Clinical Summaryon 08-02- 2023 ED Clinical Summary Normal Rudy aguayo [facility] ED Note-Physicianon 03-13-20 ED Note-Physician Normal [facility] Comment on above: Result Comment: Elec tronically Signed By: Jordan Dean DO\.nancy\Date and Time Signed: 03/13/23 04:21 EDT ED Patient Education Noteon 03-13-2023 ED Patient Education Note Normal [facility] ED Patient Summaryon 023 ED Patient Summary Normal [facility] HEMATOLOGYOrdered By: SYSTEM SYSTEM on 03-13-2023 [...] 8.9 E9/L Normal 4.0 - 11.0 E9/L [facility] HemeAutoSS Lab Miscellaneous-LCon 03-13 Lab Miscellaneous COMMENT Invalid Interpretation Code [facility] Comment on above: Result Comment: Test Ordered: 112723 Protein C- FunctionalProtein C-Functional 138 % BNReference Range: 73-180Performed at: [facility] [place], [place] [id number] PhD Quinn Pinedo Performed By: #### 1 921757334 ####[facility] [address] [place] [address] Result Comment: Test Ordered: 950600 Protein S-AntigenProtein S, Total 97 % BNReference Range: 60-150This test was developed and its performance characteristicsdetermined by [facility]. It has not been cleared or approvedby the Food and Drug Administration.Protein S, Free 118 % BNReference Range: 61-136Performed at: [facility] [place], [place] [id number] PhD Ricchiuti Vincent Result Comment: Test Ordered: 805771 Protein S-FunctionalProtein S-Functional 112 % BNReference Range: 63-140Protein S activity may be falsely increased (masking an abnormal, lowresult) in patients receiving direct Xa inhibitor (e.g., rivaroxaban,apixaban, edoxaban) or a direct thrombin inhibitor (e.g., dabigatran)anticoagulant treatment due to assay interference by these drugs.Performed at: [facility] [address] [place], [place] [id number] PhD Quinn Pinedo Lactic Acidon 03-13-2023 Lactate [Mass/Vol] 3.0 mmol/L High 0.5-2.2 [facility] Comment on above: Performed By: #### 2 708127, 0204880, 0154575, 70467665, 89250924, 36571748, 5315935, 2589818 ####[facility] [address] [place] [address] Troponin 0 Hr.on 03-13-2023 Troponin I.cardiac [Mass/Vol] 10.20 pg/mL Low 15.90-38.40 [facility] Comment on above: Result Comment: The 95% CI (Confidence Interval) PPV (Positive Predictive Value) for myocardial infarction in females is 38 pg/mL, in males 51 pg/mL. The results should be used in conjunction with clinical conditions of myocardial infarction.(Access High Sensitivity Troponin I Instructions For Use, Nikky Wallace, March 2018) Performed By: #### 2 898081, 1522485, 6647294, 45809112, 65605144, 37581125, 7532238, 3467457 ####[facility] [address] [place] [address] eGFRon 03-13-2023 GFR/1.73 sq M.predicted among non-blacks MDRD (S/P/Bld) [Vol rate/Area] 89 mL/min/1.73 m2 Normal >=59 [facility] Comment on above: Order Comment: Order added by Discern Expert. Result Comment: Vacuum Spindle Sander cristo kidney disease could be indicated at eGFR's of less than 60 mL/min/1.73m2. Kidney failure is indicated at less than 15 mL/min/1.73m2. Performed By: #### 2 107871, 6635216, 6741109, 66523150, 25244529, 11261784, 6041194, 5655761 ####[address] [address] LISA ABS Ig G,M,Aon 3 Cardiolipin IgA IA Qn (S) <9 Invalid Interpretation Code 0-11 [facility] Comment on above: Result Comment: Nega tive: <12Indeterminate: 12 - 20Low-Med Positive: >20 - 80High Positive: >80Performed at: [facility] [address] [place], [place] [id number] PhD Quinn Pinedo Performed By: #### 1 6628778 ####[address] [address] Cardiolipin IgG IA Qn (S) <9 Invalid Interpretation Code 0-14 [facility] Comment on above: Result Comment: Nega tive: <15Indeterminate: 15 - 20Low-Med Positive: >20 - 80High Positive: >80 Performed By: #### 1 7102364 ####[address] [address] Cardiolipin IgM IA Qn (S) <9 Invalid Interpretation Code 0-12 [facility] Comment on above: Result Comment: Nega tive: <13Indeterminate: 13 - 20Low-Med Positive: >20 - 80High Positive: >80 Performed By: #### 1 9083396 ####[address] [address] Auto Diffon 03-11-2023 Basophils/100 WBC (Bld) 1.0 % Normal 0.0-2.0 [facility] Comment on above: Order Comment: Order Added by Discern Expert. Performed By: #### 1 1217172, 52213734, 131551345, 0375701, 90995432, 0487593, 3221029, 21329750, 6698016 ####[address] [place] [address] Basophils/Leukocyte s Auto (Bld) [Pure # fraction] 0.1 E9/L Normal 0.0-0.2 [facility] Comment on above: Order Comment: Order Added by Discern Expert. Performed By: #### 1 2678589, 79103891, 482352402, 1851113, 72067210, 1518809, 2992577, 14452547, 8232511 ####[address] [address] Eosinophils/100 WBC (Bld) 2.1 % Normal 0.0-8.0 [facility] Comment on above: Order Comment: Order Added by Discern Expert. Performed By: #### 1 6470959, 38800993, 309723241, 6439712, 99759561, 7351111, 4749499, 21654135, 9329067 ####[address] [address] Eosinophils/Leukocy cam[place] Auto (Bld) [Pure # fraction] 0.2 E9/L Normal 0.0-0.5 [facility] Comment on above: Order Comment: Order Added by Discern Expert. Performed By: #### 1 5587391, 24152262, 674712728, 0412704, 72389346, 7448298, 5383071, 30830232, 1779387 ####[address] [address] Lymphocytes/100 WBC (Bld) 23.1 % Normal 14.0-50.0 [facility] Comment on above: Order Comment: Order Added by Discern Expert. Performed By: #### 1 4895685, 08979552, 848343468, 1778252, 19462348, 0959853, 8707573, 22117996, 2329657 ####[address] [place] [address] Lymphocytes/Leukocy [place] Auto (Bld) [Pure # fraction] 1.7 E9/L Normal 1.0-4.0 [facility] Comment on above: Order Comment: Order Added by Discern Expert. Performed By: #### 1 0553935, 73836470, 808830276, 4595934, 76400366, 9763599, 2901467, 19474865, 6962796 ####[facility] [address] [place] [address] Monocytes/100 WBC (Bld) 7.3 % Normal 4.0-14.0 [facility] Comment on above: Order Comment: Order Added by Discern Expert. Performed By: #### 1 5717747, 81961565, 271299375, 7467609, 16828526, 5771263, 6418869, 44253479, 3736262 ####[address] [place] [address] Monocytes/Leukocyte s Auto (Bld) [Pure # fraction] 0.6 E9/L Normal 0.2-1.0 [facility] Comment on above: Order Comment: Order Added by Rudi Expert. Performed By: #### 1 1867042, 28123732, 637663532, 8096534, 36803787, 4027753, 0971004, 40608432, 9365183 ####[address] [place] [address] Neutrophils/100 WBC (Bld) 66.5 % Normal 36.0-75.0 [facility] Comment on above: Order Comment: Order Added by Rudi Expert. Performed By: #### 1 1518156, 81425813, 188579310, 1470298, 21203941, 3675918, 9789601, 91566990, 9496659 ####[address] [place] [address] Neutrophils/Leukocy [place] Auto (Bld) [Pure # fraction] 5.0 E9/L Normal 2.0-7.5 [facility] Comment on above: Order Comment: Order Added by Rudi Expert. Performed By: #### 1 1599764, 20098789, 188329084, 7114467, 83809387, 9388334, 2704996, 28866589, 0061568 ####[facility] [address] [place] [address] CBC w/ Auto Diffon 3 Erythrocyte distribution width (RBC) [Ratio] 14.6 % High 10.9-14.2 [facility] Comment on above: Performed By: #### 1 7205768, 78552459, 828686341, 4252743, 15146839, 2532610, 9070046, 43448878, 3821180 ####[address] [place] [address] Hematocrit (Bld) [Volume fraction] 39.8 % Normal 37.7-49.0 [facility] Comment on above: Performed By: #### 1 [id number], [id number], [id number], 1895082, 95273313, 1481654, 8836025, 86121328, 0788715 ####[address] [place] [address] Hemoglobin (Bld) [Mass/Vol] 13.3 g/dL Low 13.5-17.5 [facility] Comment on above: Performed By: #### 1 [id number], [id number], [id number], 7299199, 74156928, 0313107, 8505395, 09946137, 4744780 ####[address] [place] [address] MCH (RBC) [Entitic mass] 31.2 pg Normal 27.0-34.0 [facility] Comment on above: Performed By: #### 1 1462863, 22145901, 494712822, 1949380, 57039040, 3872637, 7062107, 54907678, 3260022 ####[address] [place] [address] MCHC (RBC) [Mass/Vol] 33.4 g/dL Normal 31.4-36.0 [facility] Comment on above: Performed By: #### 1 2382261, 51313956, 004809666, 6749033, 49148654, 5453789, 2247896, 17616917, 3367725 ####[address] [place] [address] MCV (RBC) [Entitic vol] 93.2 fL Normal 80.0-100.0 [facility] Comment on above: Performed By: #### 1 5099178, 87102134, 402795199, 4629401, 52305219, 0506255, 0956343, 46956125, 9315041 ####[address] [place] [address]57 Platelet mean volume (Bld) [Entitic vol] 8.1 fL Normal 6.4-10.8 [facility] Comment on above: Performed By: #### 1 3847777, 26549654, 111559802, 0140278, 87533891, 4580036, 7723375, 56541986, 3171151 ####[place] [address] Platelets (Bld) [#/Vol] 174.0 E9/L Normal 150.0-500.0 [facility] Comment on above: Performed By: #### 1 6992518, 43459731, 643888531, 1838312, 76636243, 5837386, 2521259, 84166348, 0758795 ####[address] [address] RBC (Bld) [#/Vol] 4.3 E12/L Normal 4.3-5.9 [facility] Comment on above: Performed By: #### 1 0321731, 04994847, 312960265, 7282895, 94536415, 5616792, 7546792, 12884143, 9870703 ####[address] [place] [address] WBC corrected for nucl RBC Auto (Bld) [#/Vol] 7.5 E9/L Normal 4.0-11.0 [facility] Comment on above: Performed By: #### 1 7188277, 46640096, 685122582, 6710204, 48275725, 0671955, 3069334, 66031816, 6793330 ####[facility] [address] [place] [address] COAGULATIONOrdered By: Brandie Sams on 03-11-2023 Fibrin D-dimer FEU (PPP) [Mass/Vol] 1012 ng/mL FEU Invalid Interpretation Code 215 - 500 ng/mL FEU [facility] Auto Coag Comment on above: Result Comment: Resu lts Called To Onc/Jerica Venturapert By And Read Back For Confirmation On 03/11/2023 12:57:21 EDT Results Verified By Repeat Analysis Consent for Treatmenton 02-11 Consent for Treatment [id number]#1.00C D:127 Normal [facility] D-Dimeron 03-11-2023 Fibrin D-dimer FEU (PPP) [Mass/Vol] 1012 CD:[id number] Abnormal 215-500 [facility] Comment on above: Result Comment: Resu lts Called To Onc/Jerica Venturapert By And Read Back For Confirmation On [...] skin infectionsLiver cirrhosisPregnancy Performed By: #### 1 6696410, 46469289, 730799198, 7461042, 98099780, 5503172, 6980722, 95278914, 0763090 ####[facility] [address] [place] [address] HEMATOLOGYOrdered By: SYSTEM SYSTEM on 03-11-2023 Basophils/100 [...] 5.0 E9/L Normal 2.0 - 7.5 E9/L [facility] HEMATOLOGYOrdered By: Yessica Murdock on 03-11-2023 Erythrocyte distribution width (RBC) [Ratio] 14.6 % High 10.9 - 14.2 % [facility] Hematocrit (Bld) [Volume fraction] 39.8 % Normal 37.7 - 49.0 % [facility] Hemoglobin (Bld) [Mass/Vol] 13.3 g/dL Low 13.5 - 17.5 gm/dL [facility] MCH (RBC) [Entitic mass] 31.2 pg Normal 27.0 - 34.0 pg [facility] MCHC (RBC) [Mass/Vol] 33.4 g/dL Normal 31.4 - 36.0 gm/dL [facility] MCV (RBC) [Entitic vol] 93.2 fL Normal 80.0 - 100.0 fL [facility] HemeAutoSS Platelet mean volume (Bld) [Entitic vol] 8.1 fL Normal 6.4 - 10.8 fL [facility] HemeAutoSS Platelets (Bld) [#/Vol] 174.0 E9/L Normal 150.0 - 500.0 E9/L [facility] HemeAutoSS RBC (Bld) [#/Vol] 4.3 E12/L Normal 4.3 - 5.9 E12/L [facility] HemeAutoSS WBC corrected for nucl RBC Auto (Bld) [#/Vol] 7.5 E9/L Normal 4.0 - 11.0 E9/L [facility] HemeAutoSS Lab Miscellaneous-LCon 03-11 Test Code 243466 Invalid Interpretation Code [facility] Comment on above: Performed By: #### 1 [id number] ####[facility] [address] [place] [address] Test Code 260067 Invalid Interpretation Code [facility] Comment on above: Performed By: #### 1 [id number] ####[facility] [address] [place] [address] Test Code 800083 Invalid Interpretation Code [facility] Comment on above: Performed By: #### 1 [id number] ####[facility] [address] [place] [address] Test Name Protein C Invalid Interpretation Code [facility] Comment on above: Performed By: #### 1 [id number] ####[facility] [address] [place] [address] Test Name Protein S Funct Invalid Interpretation Code [facility] Comment on above: Performed By: #### 1 [id number] ####[facility] [address] [place] [address] Test Name Protein S Antig Invalid Interpretation Code [facility] Comment on above: Performed By: #### 1 [id number] ####[facility] [address] [place] [address] Oncology Progress Noteon Oncology Progress Note Normal [facility] Reference Laboratory Testing Ordered By: Sylwia Lubin on 03-11-2023 Test Code 170084 Invalid Interpretation Code [facility] SendOutsSS Test Code 888656 Invalid Interpretation Code [facility] SendOutsSS Test Code 787313 Invalid Interpretation Code [facility] SendOutsSS Test Name Protein C Invalid Interpretation Code [facility] SendOutsSS Test Name Protein S Funct Invalid Interpretation Code [facility] SendOutsSS Test Name Protein S Antig Invalid Interpretation Code [facility] SendOutsSS Population Healthon 03-05-20 Population Health Normal [facility] Ambulatory Visit Summaryon 0 03-01-2023 Ambulatory Visit Summary Invalid Interpretation Code [address], [place] [address]- \.br\ Saturday 11:00 AM EST \.br\ With:\.br\ Where: [facility] Primary Care [facility] Family Medicine Office/Clini c Noteon 03-01-2023 Family Medicine Office/Clinic Note Normal [facility] Comment on above: Result Comment: Elec tronically Signed By: LAZARO ESPINAL, Kevin Milligan\.br\Date and Time Signed: 03/01/23 13:42 EDT Patient Educationon 03-01-20 Patient Education Normal [facility] C Blood Charcoalon Blood Culture Charcoal Normal [facility] Comment on above: Performed By: #### 1 [id number] ####[facility] [address] [place] [address] Blood Culture Charcoal Normal [facility] Comment on above: Performed By: #### 1 7092905 ####[facility] [address] [place] [address] Prescriptions/Work Noteson 0 02-21-2023 Prescriptions/Work Notes [id number]#1.00 CD:127 Normal [facility] Discharge Instructionson Discharge Instructions [id number]#1.00 CD:127 Normal [facility] Population Healthon 02-21-20 23 Population Health Normal [facility] BMPon 02-19-2023 Anion gap [Moles/Vol] 10 mmol/L Normal 6-16 [facility] Comment on above: Performed By: #### 2 361062, 78130326, 7403129 ####[facility] [address] [place] [address] Calcium [Mass/Vol] 9.1 mg/dL Normal 8.9-11.1 [facility] Comment on above: Performed By: #### 2 756444, 24900689, 2303500 ####[facility] [address] [place] [address] Chloride [Moles/Vol] 99 mmol/L Low 101-111 [facility] Comment on above: Performed By: #### 2 005397, 97617657, 8247600 ####[facility] [address] [place] [address] CO2 [Moles/Vol] 32 mmol/L High 21-31 [facility] Comment on above: Performed By: #### 2 247281, 61996961, 9858364 ####[facility] [address] [place] [address] Creatinine [Mass/Vol] 0.9 mg/dL Normal 0.5-1.3 [facility] Comment on above: Performed By: #### 2 791171, 00211388, 6587371 ####[facility] [address] [place] [address] Glucose [Mass/Vol] 148 mg/dL Normal 55-199 [facility] Comment on above: Result Comment: If t his glucose result represents a fasting glucose, interpretation should refer to the following reference range: 55-99 mg/dL Performed By: #### 2 571537, 16397192, 8436262 ####[facility] [address] [place] [address] Potassium [Moles/Vol] 4.0 mmol/L Normal 3.5-5.3 [facility] Comment on above: Performed By: #### 2 592188, 15553410, 8531460 ####[facility] [address] [place] [address] Sodium [Moles/Vol] 137 mmol/L Normal 135-145 [facility] Comment on above: Performed By: #### 2 673601, 96403590, 3111286 ####[facility] [address] [place] [address] Urea nitrogen [Mass/Vol] 10 mg/dL Normal 5-21 [facility] Comment on above: Performed By: #### 2 597768, 70638418, 8738167 ####[facility] [address] [place] [address] Urea nitrogen/Creatinine [Mass ratio] 11 No Units Normal 10-20 [facility] Comment on above: Performed By: #### 2 080214, 03188783, 5894173 ####[facility] [address] [place] [address] CHEMISTRYOrdered By: Lab ROP User on 02-19-2023 Glucose [Mass/Vol] 159 mg/dL High 55 - 99 mg/dL FTM C POC Subsection Comment on above: Result Comment: Georgette palacios RN/ POC Device SN [id number] Invalid Interpretation Code [facility] POC Subsection POC User ID [id number] Invalid Interpretation Code FT POC Subsection POC Username ISABELL SAWYER Invalid Interpretation Code FT POC Subsection Glucose [Mass/Vol] 176 mg/dL High 55 - 99 mg/dL FTM C POC Subsection Comment on above: Result Comment: Georgette palacios RN/ POC Device SN [id number] Invalid Interpretation Code [facility] POC Subsection POC User ID [id number] Invalid Interpretation Code [facility] POC Subsection POC Username DEBRA GOMEZ Invalid Interpretation Code [facility] POC Subsection Glucose [Mass/Vol] 152 mg/dL High 55 - 99 mg/dL FTM C POC Subsection Comment on above: Result Comment: Georgette palacios RN/ POC Device SN [id number] Invalid Interpretation Code [facility] POC Subsection POC User ID [id number] Invalid Interpretation Code FT POC Subsection POC Username DEBRA GOMEZ Invalid Interpretation Code FT POC Subsection CHEMISTRYOrdered By: SYSTEM SYSTEM on 02-19-2023 Anion gap [Moles/Vol] 10 mmol/L Normal 6 - 16 mEq/L [facility] Remisol Calcium [Mass/Vol] 9.1 mg/dL Normal 8.9 - 11.1 mg/dL [facility] Chloride [Moles/Vol] 99 mmol/L Low 101 - 111 mmol/L [facility] CO2 [Moles/Vol] 32 mmol/L High 21 - 31 mmol/L [facility] Creatinine [Mass/Vol] 0.9 mg/dL Normal 0.5 - 1.3 mg/dL [facility] GFR/1.73 sq M.predicted among non-blacks MDRD (S/P/Bld) [Vol rate/Area] 89 mL/min/1.73 m2 Normal >=59mL/min/1.73 m2 FT Chem S Glucose [Mass/Vol] 148 mg/dL Normal 55 - 199 mg/dL [facility] Remisol Magnesium [Mass/Vol] 1.7 mg/dL Normal 1.3 - 2.4 mg/dL [facility]isol Potassium [Moles/Vol] 4.0 mmol/L Normal 3.5 - 5.3 mmol/L [facility] Sodium [Moles/Vol] 137 mmol/L Normal 135 - 145 mmol/L [facility] Urea nitrogen [Mass/Vol] 10 mg/dL Normal 5 - 21 mg/dL [facility] Urea nitrogen/Creatinine [Mass ratio] 11 mg/mg [...] 77.6 s High 25.1 - 36.5 second(s) [facility] Auto Coag INR Coag (PPP) [Relative time] 1.1 {INR} Invalid Interpretation Code [facility] Auto Coag PT Coag (PPP) [Time] 12.5 s Normal 9.4 - 12.5 second(s) [facility] Auto Coag Capillary Glucose POCon 02-09 Glucose [Mass/Vol] 159 mg/dL High 55-99 [facility] Comment on above: Result Comment: Georgette palacios RN/ Performed By: #### 2 [id number] ####[facility] [address] [place] [address] Glucose [Mass/Vol] 176 mg/dL High 55-99 [facility] Comment on above: Result Comment: Georgette palacios RN/ Performed By: #### 2 86948076 ####[facility] [address] [place] [address] Glucose [Mass/Vol] 152 mg/dL High 55-99 [facility] Comment on above: Result Comment: Georgette palacios RN/ Performed By: #### 2 [id number] ####[facility] [address] [place] [address] Discharge Note-Nursingon Discharge Note-Nursing Normal [address] [place] [address]- \.br\ New Follow Up Appointments after Discharge\.br\ Follow Up with [facility] When: 03/01/2023 01:00 PM EDT\.br\ Comments:\.br\ Your follow up appointment is with Dr. Lobo. Thank you.\.br\ Where:\.br\ [address]br\ [place] [address]-\.br\ [facility] (1)\.br\ Follow Up with [facility] When: \.br\ Comments:\.br\ [facility] will contact you to set up a home visit. Thank you.\.br\ Follow Up with Ralph Jennings When: \.br\ Comments:\.br\ Chronic Venous Insuf\.br\ Please call Kike at Dr. Jennings's office in [place] to make a follow up appointment. The phone number is [phone]. Thank you.\.br\ Where:\.br\ [address]br\ [place] [address]-\.br\ Business (1)\.br\ Follow Up with Matty Murillo When: \.br\ Comments:\.br\ needs PFTs and sleep study\.br\ The central scheduling department at [facility] will need to schedule the PFT's. Please contact Dr. Murillo's offic eto set up a time for your sleep study. 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 Amaro office will contact you to set up an appointment. If you do not hear from them in 3 days, then call [phone] and asked for Oncology/ Hematology department. Thank you.\.br\ Where:\.br\ [facility]\.br\ [address].br\ [place] [address]-\.br\ Medications\.br\ What How Much When Why Instructions Next Dose\.br\ New apixaban (Eliquis 5 mg oral tablet) 2 tabs (10 mg) BID x 7 days then 1 tab bid By Mouth 2 times a day initial fill only Pickup at [facility]/pharmacy #[id number] 02/19 @ 9 PM \.br\ New methocarbamol (Robaxin 500 mg Tab) 2 Tablets By Mouth 4 times a day Duration: 14 Days Pickup at [facility]/pharmacy #[id number] 02/19 @ 9 PM\.br\ Unchanged [...] Unchanged fluticasone nasal (Flonase 0.05 mg/ inh George) 2 Sprays Nasal Inhalation Every day Allergic [...] NEEDED, TAKE WHEN TAKING LASIX\.br\ Pharmacy Information\.br\ [facility]/pharmacy #[id number]: [address], [place] [id number] [phone]\.br\ \.br\ What How Much When Comments\.br\ Stop [...] High serum protein level\.br\ HTN (hypertension)\.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\.br\ Numbness [...] pulmonary embolus\.br\ kidney stones\.br\ Left shoulder pain\.br\ 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\.b r\ Lumbago\.br\ Lumbar [...] The following factors may make you more [facility] Echo Transthoracic Completeo n 02-19-2023 Echo Transthoracic Complete Normal [facility] Inpatient Clinical Summaryon 02-19-2023 Inpatient Clinical Summary Normal [facility] Inpatient Patient Summaryon 02-19-2023 Inpatient Patient Summary Normal [facility] Interdisciplinary Note - J Carlos e Manageron 02-19-2023 Interdisciplinary Note - 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 Normal [facility] Comment on above: Result Comment: Elec tronically Signed By: Sharmin MARTINEZ, Gladis\.br\Date and Time Signed: 02/19/23 13:20 EDT Magnesiumon 02-19-2023 Magnesium [Mass/Vol] 1.7 mg/dL Normal 1.3-2.4 [facility] Comment on above: Performed By: #### 2 770050, 91452630, 0218611 ####[facility] [address] [place], [place] [address] Message from Medicareon 02-09 Message from Medicare [id number]#1.00 CD:127 Normal [facility] PTon 02-19-2023 INR Coag (PPP) [Relative time] 1.0 {INR} Invalid Interpretation Code [facility] Comment on above: Result Comment: INR results are specifically intended to assess patients stabilized on long-term Anticoagulation therapy suggested INR?s ?Less Intensive Anticoagulation? 2.0 ? 3.0Conventional Range 3.0 ? 4.5 Performed By: #### 2 493544, 8725462 ####[facility] [address], [place] [address] PT Coag (PPP) [Time] 11.3 second(s) Normal 9.4-12.5 [facility] Comment on above: Result Comment: 15 [...] the same coagulation reagent and instrumentation as [facility]. Currently there are no coagulation studies available worldwide for children to 14 days, and no normal ranges. Performed By: #### 2 322106, 3717891 ####[facility] [address] [place] [address] PT & PTTon 02-19-2023 aPTT Coag (PPP) [Time] 77.6 second(s) High 25.1-36.5 [facility] Comment on above: Result Comment: Para [...] the same coagulation reagent and instrumentation as [facility]. Currently there are no coagulation studies available worldwide for children to 14 days, and no normal ranges. Heparin therapeutic range (represented by Anti-Factor Xa activity of 0.2 - 0.4 U/mL) corresponds to PTT of 56.6 - 109.0 sec. Performed By: #### 1 1101124 ####[facility] [address] [place] [address] INR Coag (PPP) [Relative time] 1.1 {INR} Invalid Interpretation Code [facility] Comment on above: Result Comment: INR results are specifically intended to assess patients stabilized on long-term Anticoagulation therapy suggested INR?s ?Less Intensive Anticoagulation? 2.0 ? 3.0Conventional Range 3.0 ? 4.5 Performed By: #### 1 5852423 ####[facility] [address] [place] [address] PT Coag (PPP) [Time] 12.5 second(s) Normal 9.4-12.5 [facility] Comment on above: Result Comment: 15 [...] the same coagulation reagent and instrumentation as [facility]. Currently there are no coagulation studies available worldwide for children to 14 days, and no normal ranges. Performed By: #### 1 7639571 ####[facility] [address] [place] [address] PTTon 02-19-2023 aPTT Coag (PPP) [Time] 70.2 second(s) High 25.1-36.5 [facility] Comment on above: Result Comment: Para [...] the same coagulation reagent and instrumentation as [facility]. Currently there are no coagulation studies available worldwide for children to 14 days, and no normal ranges. Heparin therapeutic range (represented by Anti-Factor Xa activity of 0.2 - 0.4 U/mL) corresponds to PTT of 56.6 - 109.0 sec. Performed By: #### 2 640701, 4568235 ####[facility] [address] [place] [address] aPTT Coag (PPP) [Time] 74.4 second(s) High 25.1-36.5 [facility] Comment on above: Result Comment: Para meter 15 days - 4 weeks 1 - 5 months 6 - 11 months 1 - 5 years 6 - 10 years 11 - 17 years PTT Mean: 35.4 (27.6-45.6) Mean: 33.5 (24.8-40.7) Mean: 32.4 (25.1-40.7) Mean: 31.6 (24.0-39.2) Mean: 31.6 (26.9-38.7) Mean: 31.0 (24.6-38.4) Pediatric Reference ranges were obtained from a study by manolo aShu al. prepared from 1437 samples obtained at 7 different centers using the same coagulation reagent and instrumentation as [facility]. Currently there are no coagulation studies available worldwide for children to 14 days, and no normal ranges. Heparin therapeutic range (represented by Anti-Factor Xa activity of 0.2 - 0.4 U/mL) corresponds to PTT of 56.6 - 109.0 sec. Performed By: #### 2 112033 ####[facility] [address] [place] [address] Patient Education - Texton 0 02-19-2023 Patient Education - Text Normal [facility] eGFRon 02-19-2023 GFR/1.73 sq M.predicted among non-blacks MDRD (S/P/Bld) [Vol rate/Area] 89 mL/min/1.73 m2 Normal >=59 [facility] Comment on above: Order Comment: Order added by Discern Expert. Result Comment: Vacuum Spindle Sander cristo kidney disease could be indicated at eGFR's of less than 60 mL/min/1.73m2. Kidney failure is indicated at less than 15 mL/min/1.73m2. Performed By: #### 2 509327, 55194231, 7331375 ####[facility] [address] [place] [address] Ambulatory Visit Summaryon 0 02-18-2023 Ambulatory Visit Summary Normal [facility] Auto DiffOrdered By: SYSTEM SYSTEM on 02-18-2023 Basophils/100 WBC (Bld) 0.7 % Normal 0.0-2.0 [facility] Comment on above: Order Comment: Order Added by Discern Expert. Performed By: #### 2 208100, 9630581, 34318697, 00117460, 2439515, 93913269, 12254080, 9161438 ####[address] [place] [address] Basophils/Leukocyte s Auto (Bld) [Pure # fraction] 0.0 E9/L Normal 0.0-0.2 [facility] Comment on above: Order Comment: Order Added by Discern Expert. Performed By: #### 2 430574, 3431154, 73963240, 68683316, 4673687, 37743862, 33905147, 2732598 ####[address] [place] [address] Eosinophils/100 WBC (Bld) 1.7 % Normal 0.0-8.0 [facility] Comment on above: Order Comment: Order Added by Discern Expert. Performed By: #### 2 884372, 6818839, 23854195, 86282596, 0149809, 43306168, 83672001, 5199459 ####[address] [place] [address] Eosinophils/Leukocy [place] Auto (Bld) [Pure # fraction] 0.1 E9/L Normal 0.0-0.5 [facility] Comment on above: Order Comment: Order Added by Discern Expert. Performed By: #### 2 679744, 0221800, 97172534, 64099142, 1778141, 14287897, 82255070, 7489178 ####[address] [place] [address] Lymphocytes/100 WBC (Bld) 20.6 % Normal 14.0-50.0 [facility] Comment on above: Order Comment: Order Added by Discern Expert. Performed By: #### 2 140055, 5012382, 63883293, 31786463, 2734922, 63331826, 61943531, 5214603 ####[address] [address] Lymphocytes/Leukocy [place] Auto (Bld) [Pure # fraction] 1.5 E9/L Normal 1.0-4.0 [facility]Auto[facility] Comment on above: Order Comment: Order Added by Discern Expert. Performed By: #### 2 904045, 0300683, 09400030, 42383295, 4010859, 05693120, 24234653, 5076957 ####[address] [address] Monocytes/100 WBC (Bld) 7.5 % Normal 4.0-14.0 [facility] Comment on above: Order Comment: Order Added by Discern Expert. Performed By: #### 2 527556, 3011608, 57250409, 67949430, 5522825, 28665816, 34113669, 6086111 ####[address] [address] Monocytes/Leukocyte s Auto (Bld) [Pure # fraction] 0.6 E9/L Normal 0.2-1.0 [facility] Comment on above: Order Comment: Order Added by Discern Expert. Performed By: #### 2 902824, 8723375, 17557511, 64076644, 5194609, 85999760, 29119568, 4835885 ####[address] [address] Neutrophils/100 WBC (Bld) 69.5 % Normal 36.0-75.0 [facility] Comment on above: Order Comment: Order Added by Rudi Expert. Performed By: #### 2 631565, 5446124, 12107179, 10203596, 9320052, 22268322, 15518720, 3327845 ####[facility] [address] [place] [address] Neutrophils/Leukocy [place] Auto (Bld) [Pure # fraction] 5.2 E9/L Normal 2.0-7.5 [facility]eAutoSS Comment on above: Order Comment: Order Added by Discern Expert. Performed By: #### 2 618817, 0309950, 34608535, 05710964, 9362405, 48293748, 16395594, 3105921 ####[facility] [address] [place] [address] BMPOrdered By: SYSTEM SYSTEM on 02-18-2023 Creatinine [Mass/Vol] 0.9 mg/dL Normal 0.5-1.3 [facility] Comment on above: Performed By: #### 2 575789, 1056257, 11400231, 99000596, 0699919, 98559376, 97903533, 6398241 ####[address] [place] [address] Urea nitrogen [Mass/Vol] 14 mg/dL Normal 5-21 [facility] Comment on above: Performed By: #### 2 643861, 5312410, 79737000, 92394399, 5451699, 81178614, 04559274, 7759487 ####[address] [place] [address] Anion gap [Moles/Vol] 13 mmol/L Normal 6-16 [facility] Comment on above: Performed By: #### 2 480481, 3944094, 29624358, 13340145, 2374921, 97221611, 17725228, 4475932 ####[facility] [address] [place] [address] Calcium [Mass/Vol] 9.0 mg/dL Normal 8.9-11.1 [facility] Comment on above: Performed By: #### 2 417861, 1545214, 39834439, 80873703, 5668303, 10665848, 90592751, 7943992 ####[facility] [address] [place] [address] Chloride [Moles/Vol] 98 mmol/L Low 101-111 [facility] Comment on above: Performed By: #### 2 207213, 7952181, 22833350, 68870341, 3647982, 52642001, 40753130, 4661646 ####[facility] [address] [place] [address] CO2 [Moles/Vol] 27 mmol/L Normal 21-31 [facility] Comment on above: Performed By: #### 2 932261, 8786662, 68679472, 19111252, 8196141, 30035762, 60970093, 8658732 ####[facility] [address] [place] [address] Glucose [Mass/Vol] 155 mg/dL Normal 55-199 FT Remisol Comment on above: Result Comment: If t his glucose result represents a fasting glucose, interpretation should refer to the following reference range: 55-99 mg/dL Performed By: #### 2 543051, 4548843, 57801287, 38927983, 9627681, 26694107, 24844582, 2714215 ####[facility] [address] [place] [address] Potassium [Moles/Vol] 3.7 mmol/L Normal 3.5-5.3 FT Remisol Comment on above: Performed By: #### 2 323454, 8373674, 37432170, 58474322, 6088071, 79512060, 21621342, 6367747 ####[facility] [address] [place] [address] Sodium [Moles/Vol] 134 mmol/L Low 135-145 FT Remisol Comment on above: Performed By: #### 2 774825, 4736567, 29169820, 15460939, 2352345, 15097657, 70472302, 9469067 ####[facility] [address] [place] [address] BMPon 02-18-2023 Urea nitrogen/Creatinine [Mass ratio] 16 No Units Normal 10-20 [facility] Comment on above: Performed By: #### 2 650340, 1265080, 00881175, 66453183, 4561283, 60036185, 78745873, 3319953 ####[facility] [address] [place] [address] BNPon 02-18-2023 Int Ctr BNP Pass Normal [facility] Comment on above: Performed By: #### 2 557790, 9280619, 42146025, 43873617, 0829392, 75774603, 44529002, 4295435 ####[facility] [address] [place] [address] BNPOrdered By: Gonzales up on 02-18-2023 Natriuretic peptide B (Bld) [Mass/Vol] 21 pg/mL Normal 5-80 [facility] HemeManSS Comment on above: Performed By: #### 2 656573, 4495471, 98950465, 63698054, 5524051, 46174640, 55159356, 7704970 ####[address] [place] [address] CBC w/ Auto DiffOrdered By: Rafia Caballero on 02-18-2023 Erythrocyte distribution width (RBC) [Ratio] 14.8 % High 10.9-14.2 [facility] HemeAutoSS Comment on above: Performed By: #### 2 031914, 8216179, 62297705, 57933361, 3019495, 01579959, 94211500, 1486411 ####[facility] [address] [place] [address] Hematocrit (Bld) [Volume fraction] 42.8 % Normal 37.7-49.0 [facility] HemeAutoSS Comment on above: Performed By: #### 2 151448, 2342380, 35945771, 46456712, 1623026, 22209449, 93583671, 2298999 ####[facility] [address] [place] [address] Hemoglobin (Bld) [Mass/Vol] 14.5 g/dL Normal 13.5-17.5 [facility] HemeAutoSS Comment on above: Performed By: #### 2 817999, 6784638, 10066857, 46594184, 2413916, 96226832, 72796032, 1238342 ####[place] [address] [place] [address] MCH (RBC) [Entitic mass] 31.3 pg Normal 27.0-34.0 [facility] HemeAutoSS Comment on above: Performed By: #### 2 506061, 1625302, 83451778, 65262984, 9915552, 05519300, 67804819, 3837167 ####[facility] [address] [address] MCHC (RBC) [Mass/Vol] 33.9 g/dL Normal 31.4-36.0 [facility] HemeAutoSS Comment on above: Performed By: #### 2 734941, 3770462, 14237523, 91493295, 6934061, 92086284, 00002614, 5973423 ####[facility] [address] [address] MCV (RBC) [Entitic vol] 92.4 fL Normal 80.0-100.0 [facility] HemeAutoSS Comment on above: Performed By: #### 2 829267, 0405941, 23886238, 76785445, 9417466, 51578340, 10767392, 5881695 ####[facility] [address] [address] Platelet mean volume (Bld) [Entitic vol] 8.2 fL Normal 6.4-10.8 [facility] HemeAutoSS Comment on above: Performed By: #### 2 036539, 9307901, 38826683, 61876878, 0406257, 28417045, 17155593, 8264850 ####[facility] [address] [address] Platelets (Bld) [#/Vol] 167.0 E9/L Normal 150.0-500.0 [facility] HemeAutoSS Comment on above: Performed By: #### 2 439164, 6279203, 88708751, 42105270, 3569665, 29251849, 44148900, 2693745 ####[facility] [address] [place] [address] RBC (Bld) [#/Vol] 4.6 E12/L Normal 4.3-5.9 FT HemeAutoSS Comment on above: Performed By: #### 2 895819, 3619850, 13444652, 44098327, 8363958, 67948597, 26865938, 8778818 ####[facility] [address] [place] [address] WBC corrected for nucl RBC Auto (Bld) [#/Vol] 7.5 E9/L Normal 4.0-11.0 [facility] HemeAutoSS Comment on above: Performed By: #### 2 688061, 0853524, 74191132, 48741023, 0556062, 27423752, 26494797, 5269219 ####[facility] [address] [place] [address] CHEMISTRYOrdered By: SYSTEM SYSTEM on 02-18-2023 Troponin I.cardiac [Mass/Vol] 13.30 pg/mL Low 15.90 - 38.40 pg/mL [facility] Remisol Troponin I.cardiac [Mass/Vol] 12.90 pg/mL Low 15.90 - 38.40 pg/mL [facility] Remisol Troponin I.cardiac [Mass/Vol] 13.60 pg/mL Low 15.90 - 38.40 pg/mL [facility] Remisol Urea nitrogen/Creatinine [Mass ratio] 16 mg/mg Normal 10 - 20 FT Remisol COAGULATIONOrdered By: Nani King on 02-18-2023 PT Coag (PPP) [Time] 11.2 s Normal 9.4 - 12.5 second(s) [facility] Auto Coag CTA Cheston 02-18-2023 CTA Chest Normal [facility] Capillary Glucose POCon 02-09 Glucose [Mass/Vol] 173 mg/dL High 55-99 [facility] Comment on above: Result Comment: Ashley parikh Meter Performed By: #### 2 06312489 ####[facility] [address] [place] [address] Glucose [Mass/Vol] 131 mg/dL High 55-99 [facility] Comment on above: Result Comment: Georgette palacios RN/MD Performed By: #### 2 33082472 ####[facility] [address] [place] [address] Consent for Treatmenton 02-09 Consent for Treatment [id number]#1.00C D:127 Normal [facility] ED Clinical Summaryon 2022 ED Clinical Summary Normal [facility] ED Note-Physicianon 02-19-20 ED Note-Physician Normal [facility] Comment on above: Result Comment: Elec tronically Signed By: Arturo Alvarez M.D.\.br\Date and Time Signed: 02/18/23 12:50 EDT ED Patient Education Noteon 02-18-2023 ED Patient Education Note Normal [facility] ED Patient Summaryon 023 ED Patient Summary Normal [facility] Family Medicine Office/Clini c Noteon 02-18-2023 Family Medicine Office/Clinic Note Normal [facility] Comment on above: Result Comment: Elec tronically Signed By: Mt GOODEN DO, FAAFP\.br\Date and Time Signed: 02/18/23 08:47 EDT GetWell Education Videoon [employer] Education Video Yes Patient Avoiding Infections in the Hospital Normal [facility] Interdisciplinary Note - Raulito singon 02-18-2023 Interdisciplinary Note - Nursing Received wound consult, upon assessment no open areas noted. Patient and stated at times legs will weep. Order put in; May use ABD and Kerlex if legs begin to weep. Normal [facility] MagnesiumOrdered By: SYSTEM SYSTEM on 02-18-2023 Magnesium [Mass/Vol] 1.5 mg/dL Normal 1.3-2.4 [facility] Remisol Comment on above: Performed By: #### 2 514903, 9736336, 95626969, 25781850, 2885808, 41827357, 26587269, 1509337 ####[facility] [address] [place] [address] Monitor Recordon 02-18-2023 Monitor Record [id number]#1.00 CD:127 Normal [facility] Monitor Record [id number]#1.00 CD:127 Normal [facility] Monitor Record [id number]#1.00 CD:127 Normal [facility] No Panel InformationOrdered By: ANGPROCESSSERVER MICROBIOLOGY on 02-18-2023 Blood Culture Charcoal No growth at 1 day. Final to follow at 7 days. [facility] PT & PTTon 02-18-2023 aPTT Coag (PPP) [Time] 29.6 second(s) Normal 25.1-36.5 [facility] Comment on above: Result Comment: Para [...] the same coagulation reagent and instrumentation as [facility]. Currently there are no coagulation studies available worldwide for children to 14 days, and no normal ranges. Heparin therapeutic range (represented by Anti-Factor Xa activity of 0.2 - 0.4 U/mL) corresponds to PTT of 56.6 - 109.0 sec. Performed By: #### 2 661401, 8536070, 10057806, 33474497, 4079557, 61796049, 54795720, 0829857 ####[facility] [address] [place] [address] PT Coag (PPP) [Time] 11.2 second(s) Normal 9.4-12.5 [facility] Comment on above: Result Comment: 15 [...] the same coagulation reagent and instrumentation as [facility]. Currently there are no coagulation studies available worldwide for children to 14 days, and no normal ranges. Performed By: #### 2 304915, 8528925, 00797220, 49957868, 6300239, 82200372, 21273966, 2701686 ####[facility] [address] [place] [address] PT & PTTOrdered By: Catalina King on 02-18-2023 INR Coag (PPP) [Relative time] 1.0 {INR} Invalid Interpretation Code [facility] Auto Coag Comment on above: Result Comment: INR results are specifically intended to assess patients stabilized on long-term Anticoagulation therapy suggested INR?s ?Less Intensive Anticoagulation? 2.0 ? 3.0Conventional Range 3.0 ? 4.5 Performed By: #### 2 357816, 2900955, 31088801, 90128946, 1635340, 63076193, 73858416, 6859928 ####[facility] [address] [place] [address] PTTon 02-18-2023 aPTT Coag (PPP) [Time] 98.5 second(s) Abnormal 25.1-36.5 [facility] Comment on above: Result Comment: Resu [...] the same coagulation reagent and instrumentation as [facility]. Currently there are no coagulation studies available worldwide for children to 14 days, and no normal ranges. Heparin therapeutic range (represented by Anti-Factor Xa activity of 0.2 - 0.4 U/mL) corresponds to PTT of 56.6 - 109.0 sec. Performed By: #### 2 969911 ####[facility] [address] [place] [address] Patient Educationon 02-19-20 23 Patient Education Normal [facility] Pre-Arrival Noteon 3 Pre-Arrival Note Normal [facility] Troponin 0 Hr.on 02-18-2023 Troponin I.cardiac [Mass/Vol] 12.00 pg/mL Low 15.90-38.40 [facility] Comment on above: Result Comment: The 95% CI (Confidence Interval) PPV (Positive Predictive Value) for myocardial infarction in females is 38 pg/mL, in males 51 pg/mL. The results should be used in conjunction with clinical conditions of myocardial infarction.(Access High Sensitivity Troponin I Instructions For Use, Nikky Kristopher, March 2018) Performed By: #### 2 453503, 4431321, 44928814, 23706801, 1020866, 02713126, 45740735, 1213668 ####[facility] [address] [place] [address] Troponin 3 Hr.on 02-18-2023 Troponin I.cardiac [Mass/Vol] 13.60 pg/mL Low 15.90-38.40 [facility] Comment on above: Result Comment: The 95% CI (Confidence Interval) PPV (Positive Predictive Value) for myocardial infarction in females is 38 pg/mL, in males 51 pg/mL. The results should be used in conjunction with clinical conditions of myocardial infarction.(Access High Sensitivity Troponin I Instructions For Use, Tango NetworksMarch 2018) Performed By: #### 1 1460398 ####[facility] [address] [place] [address] Troponin 6 Hr.on 02-18-2023 Troponin I.cardiac [Mass/Vol] 12.90 pg/mL Low 15.90-38.40 [facility] Comment on above: Result Comment: The 95% CI (Confidence Interval) PPV (Positive Predictive Value) for myocardial infarction in females is 38 pg/mL, in males 51 pg/mL. The results should be used in conjunction with clinical conditions of myocardial infarction.(Access High Sensitivity Troponin I Instructions For Use, [employer], March 2018) Performed By: #### 1 6703197 ####[facility] [address] [place] [address] Troponin 9 Hr.on 02-18-2023 Troponin I.cardiac [Mass/Vol] 13.30 pg/mL Low 15.90-38.40 [facility] Comment on above: Result Comment: The 95% CI (Confidence Interval) PPV (Positive Predictive Value) for myocardial infarction in females is 38 pg/mL, in males 51 pg/mL. The results should be used in conjunction with clinical conditions of myocardial infarction.(Access High Sensitivity Troponin I Instructions For Use, [employer], March 2018) Performed By: #### 1 1984714 ####[facility] [address] [place] [address] US LE Venous Duplex Bilatera allison 02-18-2023 US LE Venous Duplex Bilateral Normal [facility] XR Abdomen 1 Viewon 02-19-20 XR Abdomen 1 View Normal [facility] XR Chest Single Viewon 02-18 XR Chest Single View Normal [facility] eGFROrdered By: SYSTEM SYSTE M on 02-18-2023 GFR/1.73 sq M.predicted among non-blacks MDRD (S/P/Bld) [Vol rate/Area] 89 mL/min/1.73 m2 Normal >=59 [facility] Chem S Comment on above: Order Comment: Order added by Discern Expert. Result Comment: Vacuum Spindle Sander cristo kidney disease could be indicated at eGFR's of less than 60 mL/min/1.73m2. Kidney failure is indicated at less than 15 mL/min/1.73m2. Performed By: #### 2 640296, 4228117, 63688361, 48732622, 3755114, 37761474, 10909991, 4881428 ####[facility] [address] [place] [address] Auto Diffon 02-15-2023 Basophils/100 WBC (Bld) 1.0 % Normal 0.0-2.0 [facility] Comment on above: Order Comment: Order Added by Rudi Expert. Performed By: #### 2 728235, 4257233, 2662988 ####[facility] [address] [place] [address] Basophils/Leukocyte s Auto (Bld) [Pure # fraction] 0.1 E9/L Normal 0.0-0.2 [facility] Comment on above: Order Comment: Order Added by Rudi Expert. Performed By: #### 2 848076, 5701914, 1582969 ####[facility] [address] [place] [address] Eosinophils/100 WBC (Bld) 2.1 % Normal 0.0-8.0 [facility] Comment on above: Order Comment: Order Added by Rudi Expert. Performed By: #### 2 546144, 0475081, 1207723 ####[facility] [address] [place] [address] Eosinophils/Leukocy camden Auto (Bld) [Pure # fraction] 0.2 E9/L Normal 0.0-0.5 [facility] Comment on above: Order Comment: Order Added by Discern Expert. Performed By: #### 2 396428, 7780796, 6932527 ####[address] [place] [address] Lymphocytes/100 WBC (Bld) 23.5 % Normal 14.0-50.0 [facility] Comment on above: Order Comment: Order Added by Discern Expert. Performed By: #### 2 020295, 1123920, 2344970 ####[address] [address] Lymphocytes/Leukocy cam[place] Auto (Bld) [Pure # fraction] 1.9 E9/L Normal 1.0-4.0 [facility] Comment on above: Order Comment: Order Added by Discern Expert. Performed By: #### 2 842917, 6623525, 1938470 ####[address] [address] Monocytes/100 WBC (Bld) 7.5 % Normal 4.0-14.0 [facility] Comment on above: Order Comment: Order Added by Discern Expert. Performed By: #### 2 917688, 3893628, 7685608 ####[address] [address] Monocytes/Leukocyte s Auto (Bld) [Pure # fraction] 0.6 E9/L Normal 0.2-1.0 [facility] Comment on above: Order Comment: Order Added by Discern Expert. Performed By: #### 2 603007, 6231246, 1577867 ####[address] [address] Neutrophils/100 WBC (Bld) 65.9 % Normal 36.0-75.0 [facility] Comment on above: Order Comment: Order Added by Discern Expert. Performed By: #### 2 126540, 1878453, 3742020 ####[address] [address] Neutrophils/Leukocy cam[place] Auto (Bld) [Pure # fraction] 5.2 E9/L Normal 2.0-7.5 [facility] Comment on above: Order Comment: Order Added by Discern Expert. Performed By: #### 2 725714, 5423736, 1131261 ####[facility] [address] [place] [address] CBC w/ Auto Diffon 3 Erythrocyte distribution width (RBC) [Ratio] 15.1 % High 10.9-14.2 [facility] Comment on above: Performed By: #### 2 589381, 4983847, 7748681 ####[address] [address] Hematocrit (Bld) [Volume fraction] 44.1 % Normal 37.7-49.0 [facility] Comment on above: Performed By: #### 2 560180, 4431925, 6316152 ####[address] [address] Hemoglobin (Bld) [Mass/Vol] 14.7 g/dL Normal 13.5-17.5 [facility] Comment on above: Performed By: #### 2 826215, 1515299, 3470909 ####[address] [address] MCH (RBC) [Entitic mass] 30.8 pg Normal 27.0-34.0 [facility] Comment on above: Performed By: #### 2 627969, 4520371, 0284243 ####[address] [address] MCHC (RBC) [Mass/Vol] 33.2 g/dL Normal 31.4-36.0 [facility] Comment on above: Performed By: #### 2 637759, 2617381, 0728519 ####[address] [address] MCV (RBC) [Entitic vol] 92.7 fL Normal 80.0-100.0 [facility] Comment on above: Performed By: #### 2 398822, 1564515, 2116097 ####[address] [address] Platelet mean volume (Bld) [Entitic vol] 8.3 fL Normal 6.4-10.8 [facility] Comment on above: Performed By: #### 2 679232, 7123433, 9325381 ####[facility] [address] [place] [address] Platelets (Bld) [#/Vol] 177.0 E9/L Normal 150.0-500.0 [facility] Comment on above: Performed By: #### 2 026328, 1002233, 3704819 ####[facility] [address] [place] [address] RBC (Bld) [#/Vol] 4.8 E12/L Normal 4.3-5.9 [facility] Comment on above: Performed By: #### 2 018185, 9500205, 2366112 ####[address] [address] WBC corrected for nucl RBC Auto (Bld) [#/Vol] 8.0 E9/L Normal 4.0-11.0 [facility] Comment on above: Performed By: #### 2 242165, 0922145, 9800614 ####[facility] [address] [place] [address] CHEMISTRYOrdered By: SYSTEM SYSTEM on 02-15-2023 Albumin [...] 6.0 - 7.8 gm/dL [facility] Remisol CHEMISTRYOrdered By: Gonzales William on 02-15-2023 HbA1c (Bld) [Mass fraction] 6.8 % High <=5.9% [facility] ChemAutoSS Consent for Treatmenton Consent for Treatment [id number]#1.00C D:127 Normal [facility] HEMATOLOGYOrdered By: SYSTEM SYSTEM on 02-15-2023 [...] 5.2 E9/L Normal 2.0 - 7.5 E9/L [facility] HemeAutoSS HEMATOLOGYOrdered By: Keturah Bar on 02-15-2023 Erythrocyte distribution width (RBC) [Ratio] 15.1 % High 10.9 - 14.2 % FT HemeAutoSS Hematocrit (Bld) [Volume fraction] 44.1 % Normal 37.7 - 49.0 % FT HemeAutoSS Hemoglobin (Bld) [Mass/Vol] 14.7 g/dL Normal 13.5 - 17.5 gm/dL FT HemeAutoSS MCH (RBC) [Entitic mass] 30.8 pg Normal 27.0 - 34.0 pg FT HemeAutoSS MCHC (RBC) [Mass/Vol] 33.2 g/dL Normal 31.4 - 36.0 gm/dL FT HemeAutoSS MCV (RBC) [Entitic vol] 92.7 fL Normal 80.0 - 100.0 fL FT HemeAutoSS Platelet mean volume (Bld) [Entitic vol] 8.3 fL Normal 6.4 - 10.8 fL FT HemeAutoSS Platelets (Bld) [#/Vol] 177.0 E9/L Normal 150.0 - 500.0 E9/L FT HemeAutoSS RBC (Bld) [#/Vol] 4.8 E12/L Normal 4.3 - 5.9 E12/L FT HemeAutoSS WBC corrected for nucl RBC Auto (Bld) [#/Vol] 8.0 E9/L Normal 4.0 - 11.0 E9/L [facility] HemeAutoSS Hep Func Panelon 02-15-2023 Albumin [Mass/Vol] 3.9 g/dL Normal 3.3-5.0 [facility] Comment on above: Performed By: #### 2 002022, 9200533, 2533164 ####[facility] [address] [place] [address] Albumin/Globulin (S) [Mass conc ratio] 1.0 Low 1.1-2.2 [facility] Comment on above: Performed By: #### 2 402020, 9172192, 3802853 ####[facility] [address] [place] [address] ALP [Catalytic activity/Vol] 66 Int._Unit/L Normal 21-98 [facility] Comment on above: Performed By: #### 2 898415, 0027613, 9814088 ####[address] [place] [address] ALT No additional P-5'-P [Catalytic activity/Vol] 32 Int._Unit/L Normal 6-46 [facility] Comment on above: Performed By: #### 2 354980, 5060809, 6013405 ####[address] [address] AST [Catalytic activity/Vol] 36 Int._Unit/L Normal 5-43 [facility] Comment on above: Performed By: #### 2 835879, 0123814, 8811101 ####[address] [address] Bilirubin [Mass/Vol] 0.6 mg/dL Normal 0.0-1.1 [facility] Comment on above: Performed By: #### 2 257456, 2137723, 6377834 ####[address] [address] Bilirubin.direct [Mass/Vol] 0.1 mg/dL Normal 0.1-0.4 [facility] Comment on above: Performed By: #### 2 932040, 1495356, 1795992 ####[address] [address] Bilirubin.indirect [Mass or moles/Vol] 0.5 mg/dL Normal 0.1-0.9 [facility] Comment on above: Performed By: #### 2 494541, 8269064, 7247346 ####[address] [address] Globulin (S) [Mass/Vol] 4.0 g/dL Normal 1.4-4.0 [facility] Comment on above: Performed By: #### 2 720892, 0001711, 8880667 ####[address] [address] Protein [Mass/Vol] 7.9 g/dL High 6.0-7.8 [facility] Comment on above: Performed By: #### 2 145217, 5003634, 3569770 ####[facility] [address] [place] [address] IoxT1kmq 02-15-2023 HbA1c (Bld) [Mass fraction] 6.8 % High <=5.9 [facility] Comment on above: Performed By: #### 7 02744574 ####[facility] [address] [place] [address] CNPNon 2023 CNPN Telephone (RHEUMN) JAS GONZALEZ ([id number]) 1950 M DEF Date Time Provider Department [...] Status:Closed by JUMA MONK on 01/28/23 Normal [facility] CRP [Mass/Vol] 0.7 mg/dL Normal <0.9 [facility] Comment on above: Order Comment: Speci men Type: BLOOD SPECIMENOrdering Facility: [facility] Address: [address] [place] [address] Performed By: #### 1 988-5 ####[facility] [id number] [place] [address] [place] ESR Westergren method (Bld) [Velocity]on 01-25-2023 ESR (Bld) [Velocity] 24 mm/h High 0-15 [facility] Comment on above: Order Comment: Speci men Type: BLOOD SPECIMENOrdering Facility: [facility] Address: [address] [place] [address] Performed By: #### 4 537-7 ####[facility] [id number] [address] [address] [place] MRI SACRUM/COCCYX WO IVCONon 01-25-2023 [...] fat suppression and field inhomogeneity, and diminished zrpqia-eb-jnocl ratio. SACROILIAC JOINTS: Apparent mild partial ankylosis [...] cyst. Marked lower lumbar spine degenerative changes. Systems Program Manager: PSCB Transcribe Date/Time: Jan 25 2023 11:15A Dictated by : GAGE BLUM MD This examination was interpreted and the report reviewed and electronically signed by: GAGE BLUM MD on Jan 25 2023 12:05PM EST [id number] Normal [facility] Consent for Procedure/Surger yon 01-24-2023 Consent for Procedure/Surgery [id number]#1.00 CD:127 Normal [facility] Gastroenterology Office/Clin ic Noteon 01-24-2023 Gastroenterology Office/Clinic Note Normal [facility] Comment on above: Result Comment: Elec tronically Signed By: Zhara Barton\.br\Date and Time Signed: 01/23/23 12:42 EDT\.br\Electronically Co-Signed By: Joycelyn CHERRY MD\.br\Date and Time Co-Signed: 01/24/23 09:04 EDT Ambulatory Visit Summaryon 0 01-23-2023 Ambulatory Visit Summary Normal [address] [facility], [place] [address]- \.br\ Medications\.br\ What How Much When Why [...] Unchanged fluticasone nasal (Flonase 0.05 mg/ inh George) 2 Sprays Nasal Inhalation Every day Allergic [...] with hiatal hernia\.br\ High serum protein level\.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 [id number]#1.00C D:127 Normal [facility] CNPNon 12-17-2022 CNPN Telephone (RHEUMN) JAS GONZALEZ ([id number]) 1950 M DEF Date Time Provider Department [...] elsewhere classified [M53.3] Order(s):MRI SACRUM/COCCYX WO IVCON [6673118] Order #: [id number] FUTURE C-REACTIVE PROTEIN (CRP) [SQCRP] Order #: [id number] FUTURE SED RATE WESTERGREN [SQWSR] Order #: [id number] FUTURE Prescriptions as of 12/17/2022 - aspirin [...] Status:Closed by JUMA MONK on 12/17/22 Normal [facility] Ambulatory Visit Summaryon 0 12-10-2022 Ambulatory Visit Summary Invalid Interpretation Code [address], [facility] [email or web address] [place] [address]- \.br\ Saturday 11:00 AM EST \.br\ With:\.br\ Where: [facility] Primary Care [facility] Family Medicine Office/Clini c Noteon 12-10-2022 Family Medicine Office/Clinic Note Normal [facility] Comment on above: Result Comment: Elec tronically Signed By: Mt GOODEN DO, FAAFP\.br\Date and Time Signed: 12/10/22 10:50 EDT Patient Educationon 12-11-19 Patient Education Normal [facility] Consultation Noteon 12-09-19 Consultation Note [id number]#1.00CD :127 Normal [facility] KATTYOVlobito 12-05-2022 CN Office Visit (KRYSTIN ) JAS GONZALEZ ([id number]) 1950 M DEF Date Time Provider Department 12/05/22 1:00 PM JUMA MONK During your visit today, we recorded the following information about you: Pulse Respiration Blood pressure Weight 83/minute 18/minute 118/74 154.2 kg Juma Monk MD 12/05/2022 1:29 PM Signed Rhe[facility]ology Outpatient [facility] Date of Service: 12/05/2022 Patient: Jas Gonzalez Medical Record: [id number] Primary Care Physician: No primary care provider [...] Social Hist (more content not included)... Normal [facility] Coding Summary.on 12-05-2022 Coding Summary. 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 Systems Program Manager: PSCB Transcribe Date/Time: Dec 06 2022 2:43P Dictated by : GAGE BLUM MD This examination was interpreted and the report reviewed and electronically signed by: GAGE BLUM MD on Dec 06 2022 2:46PM EST [id number] Normal [facility] CNPNon 12-04-2022 CNPN Telephone (KIYAN) JAS GONZALEZ ([id number]) 1950 M DEF Date Time Provider Department [...] Reason for Visit: Received Outside Medical Records [9982] Prescriptions as of 12/04/2022 - aspirin 81 [...] Status:Closed by ANGIE LARA on 12/04/22 Normal [facility] ABO/Rhon 12-02-2022 ABO/Rh Positive Invalid Interpretation Code [facility] Comment on above: Performed By: #### 2 968106, 91258707, 60185621, 53537177 ####[facility] [address] [place] [address] ABO/Rh History Checkon 12-02 ABO/Rh History Check Patient discharged prior Normal [facility] Comment on above: Performed By: #### 2 255357, 27138093, 17344364, 37719033 ####[facility] [address] [place] [address] ABSCon 12-02-2022 ABSC Gel Interp Negative Normal [facility] Comment on above: Performed By: #### 2 341607, 90228924, 16296421, 86192047 ####[facility] [address] [place] [address] Auto Diffon 12-02-2022 Basophils/100 WBC (Bld) 0.6 % Normal 0.0-2.0 [facility] Comment on above: Order Comment: Order Added by Discern Expert. Performed By: #### 2 748280, 93878299, 1598494, 0301353, 86448748, 0789224 ####[facility] [address] [place] [address] Basophils/Leukocyte s Auto (Bld) [Pure # fraction] 0.0 E9/L Normal 0.0-0.2 [facility] Comment on above: Order Comment: Order Added by Discern Expert. Performed By: #### 2 792722, 17282885, 4439944, 6925455, 01141631, 4373880 ####[facility] [address] [place] [address] Eosinophils/100 WBC (Bld) 1.9 % Normal 0.0-8.0 [facility] Comment on above: Order Comment: Order Added by Discern Expert. Performed By: #### 2 706464, 89466081, 9936757, 4098176, 55000202, 9404567 ####[place] [place] [address] Eosinophils/Leukocy cam[place] Auto (Bld) [Pure # fraction] 0.1 E9/L Normal 0.0-0.5 [facility] Comment on above: Order Comment: Order Added by Rudi Expert. Performed By: #### 2 050208, 04009259, 4011799, 8349756, 51008465, 1845221 ####[facility] [address] [place] [address] Lymphocytes/100 WBC (Bld) 28.4 % Normal 14.0-50.0 [facility] Comment on above: Order Comment: Order Added by Rudi Expert. Performed By: #### 2 577036, 23404521, 7716840, 9883183, 30461160, 4593523 ####[address] [place] [address] Lymphocytes/Leukocy cam[place] Auto (Bld) [Pure # fraction] 1.5 E9/L Normal 1.0-4.0 [facility] Comment on above: Order Comment: Order Added by Rudi Expert. Performed By: #### 2 220430, 95747092, 6107502, 8205192, 82730774, 3858618 ####[facility] [address] [place] [address] Monocytes/100 WBC (Bld) 9.3 % Normal 4.0-14.0 [facility] Comment on above: Order Comment: Order Added by Discern Expert. Performed By: #### 2 345867, 62248305, 8241745, 7512190, 66377655, 9227970 ####[facility] [address] [place] [address] Monocytes/Leukocyte s Auto (Bld) [Pure # fraction] 0.5 E9/L Normal 0.2-1.0 [facility] Comment on above: Order Comment: Order Added by Discern Expert. Performed By: #### 2 558030, 22255162, 1670365, 7129123, 06713075, 2610576 ####[facility] [address] [place] [address] Neutrophils/100 WBC (Bld) 59.8 % Normal 36.0-75.0 [facility] Comment on above: Order Comment: Order Added by Discern Expert. Performed By: #### 2 458189, 14371470, 4598812, 3838114, 89482708, 2118622 ####[facility] [address] [place] [address] Neutrophils/Leukocy camden Auto (Bld) [Pure # fraction] 3.1 E9/L Normal 2.0-7.5 [facility] Comment on above: Order Comment: Order Added by Discern Expert. Performed By: #### 2 493866, 37620869, 2621328, 5115298, 00989757, 9786564 ####[facility] [address] [place] [address] BLOOD BANKOrdered By: Keturah Bar on 12-02-2022 ABO/Rh Interp Positive Invalid Interpretation Code [facility] BB Subsection ABSC Gel Interp Negative (12/02/22 1:07 PM) Normal [facility] BB Subsection BMPon 12-02-2022 Creatinine [Mass/Vol] 0.9 mg/dL Normal 0.5-1.3 [facility] Comment on above: Performed By: #### 2 193737, 73645912, 0673915, 7929667, 81443278, 1771893 ####[facility] [address] [place] [address] Urea nitrogen [Mass/Vol] 14 mg/dL Normal 5-21 [facility] Comment on above: Performed By: #### 2 387413, 31294129, 8538481, 4439855, 40429424, 7272276 ####[facility] [address] [place] [address] Urea nitrogen/Creatinine [Mass ratio] 16 No Units Normal 10-20 [facility] Comment on above: Performed By: #### 2 540950, 70734076, 2916925, 4996445, 85687982, 2883014 ####[facility] [address] [place] [address] Anion gap [Moles/Vol] 10 mmol/L Normal 6-16 [facility] Comment on above: Performed By: #### 2 322564, 68387813, 6931015, 1289940, 40127722, 7872126 ####[facility] [address] [place] [address] Calcium [Mass/Vol] 8.9 mg/dL Normal 8.9-11.1 [facility] Comment on above: Performed By: #### 2 129071, 16199742, 1616121, 6129241, 10248905, 4755847 ####[facility] [address] [place] [address] Chloride [Moles/Vol] 98 mmol/L Low 101-111 [facility] Comment on above: Performed By: #### 2 558312, 52386496, 3643731, 2358416, 73038090, 4844835 ####[facility] [address] [place] [address] CO2 [Moles/Vol] 30 mmol/L Normal 21-31 [facility] Comment on above: Performed By: #### 2 931298, 48948198, 0433243, 4486795, 68048442, 2350096 ####[facility] [address] [place] [address] Glucose [Mass/Vol] 137 mg/dL Normal 55-199 [facility] Comment on above: Result Comment: If t his glucose result represents a fasting glucose, interpretation should refer to the following reference range: 55-99 mg/dL Performed By: #### 2 118702, 99193231, 1591520, 1785605, 56779218, 1413116 ####[facility] [address] [place] [address] Potassium [Moles/Vol] 3.6 mmol/L Normal 3.5-5.3 [facility] Comment on above: Performed By: #### 2 564187, 66107985, 6174973, 2737656, 30169199, 9535804 ####[facility] [address] [place] [address] Sodium [Moles/Vol] 134 mmol/L Low 135-145 [facility] Comment on above: Performed By: #### 2 767641, 87359473, 3808078, 1241520, 85144714, 2521805 ####[facility] [address] [place] [address] Blood Bank ID#on 12-02-2022 BBID# [id number] Invalid Interpretation Code [facility] Comment on above: Performed By: #### 2 107263, 64513317, 71832953, 03734995 ####[facility] [address] [place] [address] CBC w/ Auto Diffon 3 Erythrocyte distribution width (RBC) [Ratio] 13.9 % Normal 10.9-14.2 [facility] Comment on above: Performed By: #### 2 526431, 91811182, 0597420, 5449372, 12034349, 0351747 ####[facility] [address] [place] [address] Hematocrit (Bld) [Volume fraction] 44.1 % Normal 37.7-49.0 [facility] Comment on above: Performed By: #### 2 313421, 07058002, 1692242, 4222885, 79930770, 8235050 ####[facility] [address] [place] [address] Hemoglobin (Bld) [Mass/Vol] 14.5 g/dL Normal 13.5-17.5 [facility] Comment on above: Performed By: #### 2 791281, 45622111, 5405370, 4197719, 88736034, 6842399 ####[address] [place] [address] MCH (RBC) [Entitic mass] 30.7 pg Normal 27.0-34.0 [facility] Comment on above: Performed By: #### 2 179500, 15268688, 2067945, 9875000, 75687747, 6144184 ####[address] [address] MCHC (RBC) [Mass/Vol] 32.9 g/dL Normal 31.4-36.0 [facility] Comment on above: Performed By: #### 2 587828, 20454279, 5018321, 4051490, 67829702, 2502830 ####[address] [address] MCV (RBC) [Entitic vol] 93.1 fL Normal 80.0-100.0 [facility] Comment on above: Performed By: #### 2 650021, 23168251, 9127620, 1412478, 78129692, 0190481 ####[address] [address] Platelet mean volume (Bld) [Entitic vol] 8.2 fL Normal 6.4-10.8 [facility] Comment on above: Performed By: #### 2 216508, 11461391, 9160995, 5472568, 94132588, 5524696 ####[address] [address] Platelets (Bld) [#/Vol] 135.0 E9/L Low 150.0-500.0 [facility] Comment on above: Performed By: #### 2 905298, 21854341, 5947454, 9499949, 93178849, 1460352 ####[facility] [address] [place] [address] RBC (Bld) [#/Vol] 4.7 E12/L Normal 4.3-5.9 [facility] Comment on above: Performed By: #### 2 806284, 52188300, 9364296, 2245639, 49982639, 6882745 ####[facility] [address] [place] [address] WBC corrected for nucl RBC Auto (Bld) [#/Vol] 5.2 E9/L Normal 4.0-11.0 [facility] Comment on above: Performed By: #### 2 188726, 54629138, 9923341, 7117940, 67190277, 0325716 ####[facility] [address] [place] [address] CHEMISTRYOrdered By: SYSTEM SYSTEM on 12-02-2022 Albumin [...] Invalid Interpretation Code 0.1 - 0.9 mg/dL FT Remisol Calcium [Mass/Vol] 8.9 mg/dL Normal 8.9 - 11.1 mg/dL FT [facility] Chloride [Moles/Vol] 98 mmol/L Low 101 - 111 mmol/L FT [facility] CO2 [Moles/Vol] 30 mmol/L Normal 21 - 31 mmol/L FT [facility] Creatinine [Mass/Vol] 0.9 mg/dL Normal 0.5 - 1.3 mg/dL FT Remisol GFR/1.73 sq M.predicted among blacks MDRD (S/P/Bld) [Vol rate/Area] mL/min/1.73 m2 Normal >=59mL/min/1.73 m2 FT Chem S GFR/1.73 sq M.predicted among non-blacks MDRD (S/P/Bld) [Vol rate/Area] mL/min/1.73 m2 Normal >=59mL/min/1.73 m2 [facility] Chem S Globulin (S) [Mass/Vol] 3.5 g/dL Normal 1.4 - 4.0 gm/dL FT Remisol Glucose [Mass/Vol] 137 mg/dL Normal 55 - 199 mg/dL FT Remisol Potassium [Moles/Vol] 3.6 mmol/L Normal 3.5 - 5.3 mmol/L FT Remisol Protein [Mass/Vol] 7.0 g/dL Normal 6.0 - 7.8 gm/dL [facility] Remisol Sodium [Moles/Vol] 134 mmol/L Low 135 - 145 mmol/L FT Remisol Urea nitrogen [Mass/Vol] 14 mg/dL Normal 5 - 21 mg/dL FT Remisol Urea nitrogen/Creatinine [Mass ratio] 16 mg/mg Normal 10 - 20 FT [facility] COAGULATIONOrdered By: Brandie Sams on 12-02-2022 aPTT Coag (PPP) [Time] 32.2 s Normal 25.1 - 36.5 second(s) FT Auto Coag INR Coag (PPP) [Relative time] 1.1 {INR} Invalid Interpretation Code FT Auto Coag PT Coag (PPP) [Time] 11.8 s Normal 9.4 - 12.5 second(s) FT Auto Coag Consent for Treatmenton 11-11 Consent for Treatment [id number]#1.00C D:127 Normal [facility] Discharge Instructionson Discharge Instructions [id number]#1.00CD :127 Normal [facility] ED Clinical Summaryon 2022 ED Clinical Summary Normal [facility] ED Note-Physicianon 12-03-19 ED Note-Physician Normal [facility] Comment on above: Result Comment: Elec tronically Signed By: Severo Mcnair PA-C\.br\Date and Time Signed: 12/02/22 16:04 EDT\.br\Electronically Co-Signed By: Arturo Alvarez M.D.\.br\Date and Time Co-Signed: 12/02/22 18:18 EDT ED Patient Education Noteon 12-02-2022 ED Patient Education Note Normal [facility] ED Patient Summaryon 023 ED Patient Summary Normal [facility] HEMATOLOGYOrdered By: SYSTEM SYSTEM on 12-02-2022 [...] 0.5 E9/L Normal 0.2 - 1.0 E9/L FT HemeAutoSS Neutrophils/100 WBC (Bld) 59.8 % Normal 36.0 - 75.0 % [facility] HemeAutoSS Neutrophils/Leukocy [place] Auto (Bld) [Pure # fraction] 3.1 E9/L Normal 2.0 - 7.5 E9/L FT HemeAutoSS HEMATOLOGYOrdered By: Veronika Sams on 12-02-2022 Erythrocyte distribution width (RBC) [Ratio] 13.9 % Normal 10.9 - 14.2 % FT HemeAutoSS Hematocrit (Bld) [Volume fraction] 44.1 % Normal 37.7 - 49.0 % FT HemeAutoSS Hemoglobin (Bld) [Mass/Vol] 14.5 g/dL Normal 13.5 - 17.5 gm/dL FT HemeAutoSS MCH (RBC) [Entitic mass] 30.7 pg Normal 27.0 - 34.0 pg FT HemeAutoSS MCHC (RBC) [Mass/Vol] 32.9 g/dL Normal 31.4 - 36.0 gm/dL FT HemeAutoSS MCV (RBC) [Entitic vol] 93.1 fL Normal 80.0 - 100.0 fL FT HemeAutoSS Platelet mean volume (Bld) [Entitic vol] 8.2 fL Normal 6.4 - 10.8 fL FT HemeAutoSS Platelets (Bld) [#/Vol] 135.0 E9/L Low 150.0 - 500.0 E9/L FT HemeAutoSS RBC (Bld) [#/Vol] 4.7 E12/L Normal 4.3 - 5.9 E12/L FT HemeAutoSS WBC corrected for nucl RBC Auto (Bld) [#/Vol] 5.2 E9/L Normal 4.0 - 11.0 E9/L FT HemeAutoSS Hep Func Panelon 12-02-2022 Bilirubin.indirect [Mass or moles/Vol] UTC Abnormal 0.1-0.9 [facility] Comment on above: Result Comment: Resu lt verified by Discern Rule. Performed result UTC (Unable to Calculate) was sent as an Alpha code due the inability to calculate a valid numeric value. Performed By: #### 2 691014, 87849423, 8074080, 0670791, 96754118, 7836013 ####[facility] [address] [place] [address] Albumin [Mass/Vol] 3.5 g/dL Normal 3.3-5.0 [facility] Comment on above: Performed By: #### 2 748082, 62140930, 7379120, 1595520, 78065317, 2142244 ####[address] [place] [address] Albumin/Globulin (S) [Mass conc ratio] 1.0 Low 1.1-2.2 [facility] Comment on above: Performed By: #### 2 387244, 32948827, 0490916, 7343829, 29820059, 0815304 ####[address] [address] ALP [Catalytic activity/Vol] 55 Int._Unit/L Normal 21-98 [facility] Comment on above: Performed By: #### 2 018569, 74572299, 6693267, 4611940, 23175147, 5516488 ####[address] [address] ALT No additional P-5'-P [Catalytic activity/Vol] 37 Int._Unit/L Normal 6-46 [facility] Comment on above: Performed By: #### 2 227148, 89129654, 0643124, 5622755, 03352297, 5559720 ####[address] [place] [address] AST [Catalytic activity/Vol] 44 Int._Unit/L High 5-43 [facility] Comment on above: Performed By: #### 2 884564, 36443778, 0867460, 4687453, 48368198, 9211095 ####[facility] [address] [place] [address] Bilirubin [Mass/Vol] 0.4 mg/dL Normal 0.0-1.1 [facility] Comment on above: Performed By: #### 2 263145, 71777649, 9252075, 3760676, 74638992, 1952437 ####[facility] [address] [place] [address] Bilirubin.direct [Mass/Vol] mg/dL Normal 0.1-0.4 [facility] Comment on above: Performed By: #### 2 681378, 65070167, 9829984, 1643450, 98252847, 2902114 ####[facility] [address] [place] [address] Globulin (S) [Mass/Vol] 3.5 g/dL Normal 1.4-4.0 [facility] Comment on above: Performed By: #### 2 295118, 10854120, 0807416, 9032243, 94129108, 6127050 ####[facility] [address] [place] [address] Protein [Mass/Vol] 7.0 g/dL Normal 6.0-7.8 [facility] Comment on above: Performed By: #### 2 396752, 66370552, 6922785, 1744837, 74783030, 1153202 ####[facility] [address] [place] [address] MICRO OTHER TESTSOrdered By: Kelly Strange on 12-02-2022 Occult Bld Stl Positive *ABN* (12/02/22 3:01 PM) Invalid Interpretation Code Negative [facility] Man Sero PT & PTTon 12-02-2022 aPTT Coag (PPP) [Time] 32.2 second(s) Normal 25.1-36.5 [facility] Comment on above: Result Comment: Para [...] the same coagulation reagent and instrumentation as [facility]. Currently there are no coagulation studies available worldwide for children to 14 days, and no normal ranges. Heparin therapeutic range (represented by Anti-Factor Xa activity of 0.2 - 0.4 U/mL) corresponds to PTT of 56.6 - 109.0 sec. Performed By: #### 2 497605, 35135700, 4305619, 5273216, 46310176, 7028216 ####[facility] [address] [place] [address] INR Coag (PPP) [Relative time] 1.1 {INR} Invalid Interpretation Code [facility] Comment on above: Result Comment: INR results are specifically intended to assess patients stabilized on long-term Anticoagulation therapy suggested INR?s ?Less Intensive Anticoagulation? 2.0 ? 3.0Conventional Range 3.0 ? 4.5 Performed By: #### 2 946496, 86025506, 6119927, 2705086, 86230310, 6311165 ####[facility] [address] [place] [address] PT Coag (PPP) [Time] 11.8 second(s) Normal 9.4-12.5 [facility] Comment on above: Result Comment: 15 [...] the same coagulation reagent and instrumentation as [facility]. Currently there are no coagulation studies available worldwide for children to 14 days, and no normal ranges. Performed By: #### 2 628301, 39342831, 1318163, 4444867, 78670062, 4155807 ####[facility] [address] [place] [address] Stl Oclt Bldon 12-02-2022 Occult Bld Stl Positive Abnormal Negative [facility] Comment on above: Performed By: #### 2 8025422 ####[facility] [address] [place] [address] eGFRon 12-02-2022 GFR/1.73 sq M.predicted among blacks MDRD (S/P/Bld) [Vol rate/Area] mL/min/{1.73_m2} Normal >=59 [facility] Comment on above: Order Comment: Order added by Discern Expert. Result Comment: eGFR is race adjusted. AA=. Performed By: #### 2 159383, 19921821, 9599185, 0108937, 58163052, 6013667 ####[facility] [address] [place] [address] GFR/1.73 sq M.predicted among non-blacks MDRD (S/P/Bld) [Vol rate/Area] mL/min/{1.73_m2} Normal >=59 [facility] Comment on above: Order Comment: Order added by Discern Expert. Result Comment: Vacuum Spindle Sander cristo kidney disease could be indicated at eGFR's of less than 60 mL/min/1.73m2. Kidney failure is indicated at less than 15 mL/min/1.73m2. Performed By: #### 2 732655, 61408828, 4526852, 8140908, 27625408, 8153488 ####[facility] [address] [place] [address] Coding Summary.on 11-30-2022 Coding Summary. Normal [facility] Consent for Treatmenton 11-11 Consent for Treatment [id number]#1.00CD :127 Normal [facility] Consultation Noteon 11-30-19 Consultation Note [facility] Comment on above: Result Comment: Elec tronically Signed By: Georgi ESPINAL, Pawan\.br\Date and Time Signed: 11/29/22 10:31 EDT Office/Clinic Note-Physician on 11-29-2022 Office/Clinic Note-Physician [id number]#1.00 CD:127 [facility] Patient Correspondenceon Patient Correspondence [id number]#1.00 CD:127 [facility] Patient History Officeon Patient History Office [id number]#1.00 CD:127 [facility] Transfer Inon 11-26-2022 Transfer In [id number]#1.00C D:127 [facility] Coding Summary.on 11-24-2022 Coding Summary. [facility] US Aorta Completeon 11-21-19 US Aorta Complete [facility] Consent for Treatmenton 11-10 Consent for Treatment [id number]#1.00C D:127 [facility] Consultation Noteon 11-18-19 Consultation Note [id number]#1.00C D:127 [facility] Auth for Release of Medical Recordson 11-16-2022 Auth for Release of Medical Records [id number]#1.00C D:127 [facility] CNOVon 11-14-2022 CNOV Office Visit (KRYSTIN ) JAS GONZALEZ ([id number]) 1950 M DEF Date Time Provider Department 11/14/22 1:30 PM JUMA MONK During your visit today, we recorded the following information about you: Pulse Blood pressure Weight Height 73/minute 121/63 151.5 kg 1.854 m Juma Monk MD 11/16/2022 9:45 AM Signed [facility] Date of Service: 11/14/2022 Patient: Jas Gonzalez Medical Record: [id number] Primary Care Physician: No primary care provider [...] 144 mmol/L (more content not included)... Normal [facility] Office/Clini c Noteon 11-08-2022 Family [facility] Office/Clinic Note Normal [facility] Comment on above: Result Comment: Elec tronically Signed By: MAMTA LEE FAAFP, [place].nancy\Date and Time Signed: 11/08/22 10:50 EDT Patient Educationon 11-09-19 Patient Education Normal [facility] Coding Summary.on 10-29-2022 Coding Summary. Normal [facility] CHEMISTRYOrdered By: Lab ROP User on 10-24-2022 Glucose [Mass/Vol] 138 mg/dL High 55 - 99 mg/dL FT C POC Subsection POC Device SN [id number] Invalid Interpretation Code [facility] POC Subsection POC User ID [id number] Invalid Interpretation Code [facility] POC Subsection POC Username LESLIE AUGUSTINE Invalid Interpretation Code [facility] POC Subsection Capillary Glucose POCon 10-10 Glucose [Mass/Vol] 138 mg/dL High 55-99 [facility] Comment on above: Performed By: #### 2 [id number] ####[facility] [address] [place] [address] Consent for Procedure/Surger yon 10-24-2022 Consent for Procedure/Surgery [id number]#1.00 CD:127 Normal [facility] Consent for Treatmenton 10-10 Consent for Treatment [id number]#1.00C D:127 Normal [facility] Consultation Noteon 10-25-19 Consultation Note [id number]#1.00C D:127 Normal [facility] Consultation Note [id number]#1.00C D:127 Normal [facility] Discharge Instructionson Discharge Instructions [id number]#1.00 CD:127 Normal [facility] IntraOperative Documentson 0 10-24-2022 IntraOperative Documents [id number]#1.00 CD:127 [facility] IntraOperative Documents [id number]#1.00 CD:127 [facility] Main OR Intraoperative Recor don 10-24-2022 Main OR Intraoperative Record Normal [facility] Main OR Preoperative Recordo n 10-24-2022 Main OR Preoperative Record Normal [facility] Operative Reporton Operative Report Normal [facility] Comment on above: Result Comment: Elec tronically Signed By: Pawan Laureano MD\.br\Date and Time Signed: 10/24/22 19:25 EDT Patient Correspondenceon Patient Correspondence [id number]#1.00CD :127 Normal [facility] Coding Summary.on 10-01-2022 Coding Summary. Normal [facility] Consultation Noteon 09-29-19 Consultation Note Normal [facility] Comment on above: Result Comment: Elec tronically Signed By: Pawan Laureano MD\.br\Date and Time Signed: 09/29/22 20:14 EST Consent for Treatmenton 09-12 Consent for Treatment [id number]#1.00C D:127 Normal [facility] Office/Clinic Note-Physician on 09-27-2022 Office/Clinic Note-Physician [id number]#1.00C D:127 Normal [facility] Patient Correspondenceon Patient Correspondence [id number]#1.00C D:127 Normal [facility] Patient History Officeon Patient History Office [id number]#1.00C D:127 Normal [facility] Physician Orderon 09-27-2022 Physician Order [id number]#1.00C D:127 [facility] Consent for Treatmenton Consent for Treatment [id number]#1.00C D:127 Normal [facility] Auth for Release of Medical Recordson 09-17-2022 Auth for Release of Medical Records [id number]#[id number] D:127 Normal [facility] Ambulatory Visit Summaryon 0 09-14-2022 Ambulatory Visit Summary Normal [address], [place] [address]- \.br\ You Need to Schedule the Following Appointments\.br\ Follow Up with Thao Duncan DO, FAM, PED When: Within 1 month, only if needed\.br\ Comments:\.br\ 40 mins\.br\ Where:\.br\ [address], [address]br\ [place] [address]\.br\ Medications\.br\ What How Much When Why Instructions\.br\ [...] with hiatal hernia\.br\ High serum protein level\.br\ custodial current use of oral hypoglycemic drug\.br\ Numbness [...] pulmonary embolus\.br\ kidney stones\.br\ Left shoulder pain\.br\ custodial (current) use of anticoagulants\.b r\ Lumbago\.br\ Lumbar radiculopathy, chronic\.br\ Morbid obesity due to excess calories\.br\ Obesity\.br\ Pulmonary embolism on right\.br\ Rib pain on right side\.br\ Spasm of muscle of lower back\.br\ Vertigo, benign paroxysmal\.br\ \.br\ [facility] Office/Clini c Noteon 09-14-2022 [facility] Office/Clinic Note Normal [facility] Comment on above: Result Comment: Elec tronically Signed By: Thao Duncan DO\Date and Time Signed: 09/14/22 18:35 EST Coding Summary.on 09-12-2022 Coding Summary. Normal [facility] Coding Summary. Normal [facility] Auto Diffon 09-10-2022 Basophils/100 WBC (Bld) 0.8 % Normal 0.0-2.0 [facility] Comment on above: Order Comment: Order Added by Discern Expert. Performed By: #### 1 0609303, 91055270, 2004901, 7134341, 0894198, 8342473, 0126964 ####[facility] [address] [place] [address] Basophils/Leukocyte s Auto (Bld) [Pure # fraction] 0.1 E9/L Normal 0.0-0.2 [facility] Comment on above: Order Comment: Order Added by Discern Expert. Performed By: #### 1 8614205, 89700304, 6889774, 9201948, 6189534, 1383798, 8929791 ####[facility] [address] [place] [address] Eosinophils/100 WBC (Bld) 1.7 % Normal 0.0-8.0 [facility] Comment on above: Order Comment: Order Added by Discern Expert. Performed By: #### 1 4264751, 21863863, 7437614, 7298291, 8038546, 8840018, 9925851 ####[facility] [address] [place] [address] Eosinophils/Leukocy camden Auto (Bld) [Pure # fraction] 0.1 E9/L Normal 0.0-0.5 [facility] Comment on above: Order Comment: Order Added by Discern Expert. Performed By: #### 1 1141731, 30160797, 5682165, 7646989, 7993204, 9382157, 7031441 ####Nevarez Mamadou [address] [address] Lymphocytes/100 WBC (Bld) 34.3 % Normal 14.0-50.0 [facility] Comment on above: Order Comment: Order Added by Discern Expert. Performed By: #### 1 4793627, 20205708, 9347541, 4073969, 6110619, 1494300, 9433103 ####[address] [address] Lymphocytes/Leukocy camden Auto (Bld) [Pure # fraction] 2.2 E9/L Normal 1.0-4.0 [facility] Comment on above: Order Comment: Order Added by Discern Expert. Performed By: #### 1 8854510, 82501991, 8514321, 6445517, 6559264, 4938363, 5288101 ####[address] [address] Monocytes/100 WBC (Bld) 7.4 % Normal 4.0-14.0 [facility] Comment on above: Order Comment: Order Added by Discern Expert. Performed By: #### 1 3565646, 69985361, 8455946, 4082464, 7684070, 9523786, 8732227 ####[address] [address] Monocytes/Leukocyte s Auto (Bld) [Pure # fraction] 0.5 E9/L Normal 0.2-1.0 [facility] Comment on above: Order Comment: Order Added by Discern Expert. Performed By: #### 1 7759233, 84563528, 2476434, 5313944, 4641742, 2998493, 3370234 ####[address] [address] Neutrophils/100 WBC (Bld) 55.8 % Normal 36.0-75.0 [facility] Comment on above: Order Comment: Order Added by Discern Expert. Performed By: #### 1 9434196, 70485982, 4559576, 7176163, 6186052, 0296634, 4914625 ####[address] [place] [address] Neutrophils/Leukocy camden Auto (Bld) [Pure # fraction] 3.6 E9/L Normal 2.0-7.5 [facility] Comment on above: Order Comment: Order Added by Discern Expert. Performed By: #### 1 0968199, 71068048, 8742530, 0682269, 0642853, 4993806, 0357201 ####[facility] [address] [place] [address] BMPon 09-10-2022 Anion gap [Moles/Vol] 11 mmol/L Normal 6-16 [facility] Comment on above: Performed By: #### 1 6801848, 85611470, 6393752, 6252881, 3240612, 9486113, 8927269 ####[facility] [address] [place] [address] Calcium [Mass/Vol] 9.4 mg/dL Normal 8.9-11.1 [facility] Comment on above: Performed By: #### 1 2460228, 61880791, 0748440, 2372573, 1544597, 5893280, 8159905 ####[facility] [address] [place] [address] Chloride [Moles/Vol] 101 mmol/L Normal 101-111 [facility] Comment on above: Performed By: #### 1 8637608, 70362637, 5658860, 3851908, 4424006, 5058184, 0592005 ####[facility] [address] [place] [address] CO2 [Moles/Vol] 30 mmol/L Normal 21-31 [facility] Comment on above: Performed By: #### 1 4938907, 35310207, 4011769, 7956623, 7047482, 9192244, 6450041 ####[facility] [address] [place] [address] Creatinine [Mass/Vol] 0.9 mg/dL Normal 0.5-1.3 [facility] Comment on above: Performed By: #### 1 5439876, 59073766, 5774164, 9659057, 9293113, 3609001, 0359701 ####[facility] [address] [place] [address] Glucose [Mass/Vol] 119 mg/dL Normal 55-199 [facility] Comment on above: Result Comment: If t his glucose result represents a fasting glucose, interpretation should refer to the following reference range: 55-99 mg/dL Performed By: #### 1 0826878, 09756294, 5224612, 5690654, 8898347, 5139657, 8793129 ####[facility] [address] [place] [address] Potassium [Moles/Vol] 4.0 mmol/L Normal 3.5-5.3 [facility] Comment on above: Performed By: #### 1 2793647, 62338836, 3512459, 2398952, 0546635, 0145367, 7439329 ####[facility] [address] [place] [address] Sodium [Moles/Vol] 138 mmol/L Normal 135-145 [facility] Comment on above: Performed By: #### 1 7709650, 96996565, 2824545, 0184353, 2922292, 0152467, 7082179 ####[facility] [address] [place] [address] Urea nitrogen [Mass/Vol] 17 mg/dL Normal 5-21 [facility] Comment on above: Performed By: #### 1 1574743, 62369355, 2944117, 8911285, 3357497, 9202171, 1657974 ####[facility] [address] [place] [address] Urea nitrogen/Creatinine [Mass ratio] 19 No Units Normal 10-20 [facility] Comment on above: Performed By: #### 1 0188876, 68313479, 7046666, 6421855, 2083487, 1034753, 6322331 ####[facility] [address] [place] [address] CBC w/ Auto Diffon Erythrocyte distribution width (RBC) [Ratio] 14.5 % High 10.9-14.2 [facility] Comment on above: Performed By: #### 1 6033507, 00579171, 4832102, 1021586, 3037302, 6577905, 2584131 ####[facility] [address] [place] [address] Hematocrit (Bld) [Volume fraction] 45.0 % Normal 37.7-49.0 [facility] Comment on above: Performed By: #### 1 2497773, 65851536, 2932383, 4466292, 1524630, 9843967, 6723123 ####[place] [address] [place] [address] Hemoglobin (Bld) [Mass/Vol] 14.6 g/dL Normal 13.5-17.5 [facility] Comment on above: Performed By: #### 1 3582084, 43554505, 9169443, 9219426, 6584205, 2089747, 6652233 ####[facility] [address] [place] [address] MCH (RBC) [Entitic mass] 30.8 pg Normal 27.0-34.0 [facility] Comment on above: Performed By: #### 1 4486195, 71099446, 2912211, 3604001, 9115221, 2918236, 7087422 ####[place] [address] MCHC (RBC) [Mass/Vol] 32.5 g/dL Normal 31.4-36.0 [facility] Comment on above: Performed By: #### 1 9283893, 90062372, 7637339, 5272437, 3837858, 0503013, 1223508 ####[place] [address] [place] [address] MCV (RBC) [Entitic vol] 94.6 fL Normal 80.0-100.0 [facility] Comment on above: Performed By: #### 1 4710606, 98257067, 7692801, 7364175, 5561608, 1840427, 1069061 ####[facility] [address] [place] [address] Platelet mean volume (Bld) [Entitic vol] 8.3 fL Normal 6.4-10.8 [facility] Comment on above: Performed By: #### 1 5335626, 74447006, 2650877, 4177812, 2718578, 0764916, 4535961 ####[facility] [address] [place] [address] Platelets (Bld) [#/Vol] 159.0 E9/L Normal 150.0-500.0 [facility] Comment on above: Performed By: #### 1 5200410, 47205806, 4510003, 1085413, 7334863, 0897260, 6614023 ####[place] [address] RBC (Bld) [#/Vol] 4.8 E12/L Normal 4.3-5.9 [facility] Comment on above: Performed By: #### 1 4069185, 13656526, 9620027, 0917522, 4005682, 2987809, 9735940 ####[place] [address] [place] [address] WBC corrected for nucl RBC Auto (Bld) [#/Vol] 6.4 E9/L Normal 4.0-11.0 [facility] Comment on above: Performed By: #### 1 5718517, 28861622, 8865103, 1554135, 0957009, 6678600, 4719865 ####[facility] [address] [place] [address] CHEMISTRYOrdered By: Elma Person on 09-10-2022 Albumin DL <= 20 mg/L (U) [Mass/Vol] 11.6 microgram/mL Normal 0.0 - 19.0 mcg/mL [facility] Remisol CHEMISTRYOrdered By: BuzzTable SYSTEM on 09-10-2022 Albumin [Mass/Vol] 4.1 g/dL [...] 24 mg/dL Normal 7 - 40 mg/dL [facility] Remisol CO2 [Moles/Vol] 30 mmol/L Normal 21 - 31 mmol/L [facility] Creatinine [Mass/Vol] 0.9 mg/dL Normal 0.5 - 1.3 mg/dL [facility] Remisol GFR/1.73 sq M.predicted among blacks MDRD (S/P/Bld) [Vol rate/Area] mL/min/1.73 m2 Normal >=59mL/min/1.73 m2 [facility] Chem S GFR/1.73 sq M.predicted among non-blacks MDRD (S/P/Bld) [Vol rate/Area] mL/min/1.73 m2 Normal >=59mL/min/1.73 m2 [facility] Chem S Globulin (S) [Mass/Vol] 3.8 g/dL Normal 1.4 - 4.0 gm/dL [facility] Remisol Glucose [Mass/Vol] 119 mg/dL Normal 55 - 199 mg/dL [facility] Remisol Potassium [Moles/Vol] 4.0 mmol/L Normal 3.5 - 5.3 mmol/L [facility] Remisol Prostate specific Ag [Mass/Vol] 0.9 ng/mL Normal 0.1 - 3.5 ng/mL [facility] Remisol Protein [Mass/Vol] 7.9 g/dL High 6.0 - 7.8 gm/dL [facility] Remisol Sodium [Moles/Vol] 138 mmol/L Normal 135 - 145 mmol/L [facility] Remisol Triglyceride [Mass/Vol] 120 mg/dL Normal <=149mg/dL [facility] Remisol Urea nitrogen [Mass/Vol] 17 mg/dL Normal 5 - 21 mg/dL [facility] Remisol Urea nitrogen/Creatinine [Mass ratio] 19 mg/mg Normal 10 - 20 [facility] Remisol CHEMISTRYOrdered By: Alia Heart on 09-10-2022 HbA1c (Bld) [Mass fraction] 6.3 % High <=5.9% [facility] ChemAutoSS Consent for Treatmenton 08-14 Consent for Treatment [id number]#1.00C D:127 Normal [facility] Consent for Treatment [id number]#1.00C D:127 Normal [facility] HEMATOLOGYOrdered By: SYSTEM SYSTEM on 09-10-2022 Basophils/100 WBC (Bld) 0.8 % Normal 0.0 - 2.0 % [facility] HemeAutoSS Basophils/Leukocyte s Auto (Bld) [Pure # fraction] 0.1 E9/L Normal 0.0 - 0.2 E9/L [facility] HemeAutoSS Eosinophils/100 WBC (Bld) 1.7 % Normal [...] 14.6 g/dL Normal 13.5 - 17.5 gm/dL [facility] HemeAutoSS MCH (RBC) [Entitic mass] 30.8 pg Normal 27.0 - 34.0 pg [facility] HemeAutoSS MCHC (RBC) [Mass/Vol] 32.5 g/dL Normal 31.4 - 36.0 gm/dL [facility] HemeAutoSS MCV (RBC) [Entitic vol] 94.6 fL Normal 80.0 - 100.0 fL [facility] HemeAutoSS Platelet mean volume (Bld) [Entitic vol] 8.3 fL Normal 6.4 - 10.8 fL [facility] HemeAutoSS Platelets (Bld) [#/Vol] 159.0 E9/L Normal 150.0 - 500.0 E9/L [facility] HemeAutoSS RBC (Bld) [#/Vol] 4.8 E12/L Normal 4.3 - 5.9 E12/L [facility] HemeAutoSS WBC corrected for nucl RBC Auto (Bld) [#/Vol] 6.4 E9/L Normal 4.0 - 11.0 E9/L [facility] HemeAutoSS Hep Func Panelon 09-10-2022 Bilirubin.indirect [Mass or moles/Vol] UTC Abnormal 0.1-0.9 [facility] Comment on above: Result Comment: Resu lt verified by Discern Rule. Performed result UT (Unable to Calculate) was sent as an Alpha code due the inability to calculate a valid numeric value. Performed By: #### 1 5775432, 34218020, 3460870, 3343236, 7422737, 9855090, 9032523 ####[facility] [address] [place] [address] Albumin [Mass/Vol] 4.1 g/dL Normal 3.3-5.0 [facility] Comment on above: Performed By: #### 1 1945767, 47106359, 8457974, 0594606, 2079114, 3839710, 8506283 ####[facility] [address] [place] [address] Albumin/Globulin (S) [Mass conc ratio] 1.1 Normal 1.1-2.2 [facility] Comment on above: Performed By: #### 1 0808261, 19518385, 4683876, 7801574, 8984498, 1620123, 7839653 ####[facility] [address] [place] [address] ALP [Catalytic activity/Vol] 56 Int._Unit/L Normal 21-98 [facility] Comment on above: Performed By: #### 1 4442187, 99154033, 0343125, 7034785, 5844811, 9290804, 4988853 ####[facility] [address] [place] [address] ALT No additional P-5'-P [Catalytic activity/Vol] 37 Int._Unit/L Normal 6-46 [facility] Comment on above: Performed By: #### 1 3812172, 51685481, 4892153, 8817654, 7945068, 5487456, 0208969 ####[facility] [address] [place] [address] AST [Catalytic activity/Vol] 39 Int._Unit/L Normal 5-43 [facility] Comment on above: Performed By: #### 1 2450451, 30434349, 4549588, 6278276, 2911262, 8784679, 4180255 ####[facility] [address] [place] [address] Bilirubin [Mass/Vol] 0.6 mg/dL Normal 0.0-1.1 [facility] Comment on above: Performed By: #### 1 7462867, 51059527, 5416543, 3595661, 6502263, 5659422, 2416327 ####[place] [address] [place] [address] Bilirubin.direct [Mass/Vol] mg/dL Normal 0.1-0.4 [facility] Comment on above: Performed By: #### 1 2055269, 95912304, 5447535, 2152908, 3476271, 8568995, 4747392 ####[place] [place] [address] Globulin (S) [Mass/Vol] 3.8 g/dL Normal 1.4-4.0 [facility] Comment on above: Performed By: #### 1 7857326, 69281633, 6169839, 2621692, 9385863, 2444080, 3781391 ####[place] [address] [place] [address] Protein [Mass/Vol] 7.9 g/dL High 6.0-7.8 [facility] Comment on above: Performed By: #### 1 8329806, 42130228, 3366963, 8282257, 5971946, 6906359, 3529311 ####[place] [address] [place] [address] AjbI0lgc 01-30-2023 HbA1c (Bld) [Mass fraction] 6.3 % High <=5.9 [facility] Comment on above: Performed By: #### 7 91353429 ####[facility] [address] [place] [address] Lipid Panelon 09-10-2022 Cholesterol [Mass/Vol] 209 mg/dL High 120-200 [facility] Comment on above: Performed By: #### 1 6403163, 46577843, 1488836, 0686014, 2558632, 2667950, 8985247 ####[facility] [address] [place] [address] Cholesterol in HDL [Mass/Vol] 42 mg/dL Invalid Interpretation Code [facility] Comment on above: Result Comment: HDL > or equal to 60 mg/dL: Low cardiovascular riskHDL < 40 mg/dL : High cardiovascular risk Performed By: #### 1 6787431, 10531284, 0522988, 4252571, 6898175, 2647938, 7548527 ####[facility] [address] [place] [address] Cholesterol in LDL [Mass/Vol] 144 mg/dL High <=129 [facility] Comment on above: Performed By: #### 1 7729296, 23370333, 5514781, 6146898, 9581595, 6631768, 7317814 ####[facility] [address] [place] [address] Cholesterol in VLDL [Mass/Vol] 24 mg/dL Normal 7-40 [facility] Comment on above: Performed By: #### 1 9618192, 29142777, 0528601, 3714632, 4096705, 0485022, 7847033 ####[facility] [address] [place] [address] Triglyceride [Mass/Vol] 120 mg/dL Normal <=149 [facility] Comment on above: Performed By: #### 1 6672623, 30950418, 0619912, 1454076, 6045460, 9806532, 4144923 ####[facility] [address] [place] [address] MRI Spine Lumbar w/o Contras ton 09-10-2022 MRI Spine Lumbar w/o Contrast Normal [facility] PSA Screen, Totalon 09-10-19 Prostate specific Ag [Mass/Vol] 0.9 ng/mL Normal 0.1-3.5 [facility] Comment on above: Result Comment: The concentration of PSA determined by different manufacturers can vary due to differences in assay methods and reagent specificity. Values obtained from different assay methods cannot be used interchangeably. The methodology used for this result was chemiluminescence using [employer]'s Access Hy[employer]itech PSA reagent. Performed By: #### 1 1544585, 33472607, 8932803, 3206579, 7954864, 8164718, 7538354 ####[facility] [address] [place] [address] RAD - MRI Screening Formon 0 09-10-2022 RAD - MRI Screening Form [id number]#1.00C D:127 Normal [facility] U Microalbon 09-10-2022 Albumin DL <= 20 mg/L (U) [Mass/Vol] 11.6 microgram/mL Normal 0.0-19.0 [facility] Comment on above: Performed By: #### 1 0591710 ####[place] [address] [place] [address] XR Spine Lumbosacral Minimum 4 Viewson 09-10-2022 XR Spine Lumbosacral Minimum 4 Views Normal [facility] eGFRon 09-10-2022 GFR/1.73 sq M.predicted among blacks MDRD (S/P/Bld) [Vol rate/Area] mL/min/{1.73_m2} Normal >=59 [facility] Comment on above: Order Comment: Order added by Discern Expert. Result Comment: eGFR is race adjusted. AA=. Performed By: #### 1 2592825, 03309023, 2610671, 0796670, 1657358, 3292051, 5497769 ####[facility] [address] [place] [address] GFR/1.73 sq M.predicted among non-blacks MDRD (S/P/Bld) [Vol rate/Area] mL/min/{1.73_m2} Normal >=59 [facility] Comment on above: Order Comment: Order added by Discern Expert. Result Comment: Vacuum Spindle Sander cristo kidney disease could be indicated at eGFR's of less than 60 mL/min/1.73m2. Kidney failure is indicated at less than 15 mL/min/1.73m2. Performed By: #### 1 7545499, 67286528, 9762102, 1981673, 0211895, 7360725, 5897744 ####[facility] [address] [place] [address] Physician Orderon 08-31-2022 Physician Order [id number]#1.00C D:127 Normal [facility] Physician Order [id number]#1.00C D:127 Normal [facility] Physician Order [id number]#1.00 CD:127 Normal [facility] Physician Order [id number]#1.00 CD:127 Normal [facility] Physician Order [id number]#1.00 CD:127 Normal [facility] Consultation Noteon 08-29-19 Consultation Note Normal [facility] Comment on above: Result Comment: Elec tronically Signed By: Pawan Laureano MD\.br\Date and Time Signed: 08/29/22 08:28 EST Family Medicine Office/Clini c Noteon 08-29-2022 Family Medicine Office/Clinic Note Normal [facility] Comment on above: Result Comment: Elec tronically Signed By: Mt GOODEN DO, FAAFP\.br\Date and Time Signed: 08/29/22 12:52 EST\.br\Electronically Co-Signed By: Estelita Singh LPN\.br\Date and Time Co-Signed: 08/28/22 14:23 EST Ambulatory Visit Summaryon 0 08-28-2022 Ambulatory Visit Summary Invalid Interpretation Code [address] [place] [address]- \.br\ Saturday 11:00 AM EST \.br\ With:\.br\ Where: [facility] Patient Educationon 08-28-19 Patient Education Normal [facility] Screenson 08-28-2022 Screens [id number]#1.00C D:127 Normal [facility] Coding Summary.on 08-27-2022 Coding Summary. Normal [facility] Ambulatory Visit Summaryon 0 08-23-2022 Ambulatory Visit Summary Invalid Interpretation Code [address], [place] [address]- \.br\ You Need to Schedule the Following Appointments\.br\ Follow Up with Mt GOODEN DO, FAAFP, FAM, PED When: In 6 months\.br\ Where:\.br\ [address]\ [place] [address].br\ \.br\ You Need to Complete the Following\.br\ Basic Metabolic Panel, Blood, Routine collect, 08/23/22, Order for future visit, Lab Collect, Type 2 diabetes mellitus with morbid obesity [facility] Consent for Treatmenton 08-12 Consent for Treatment [id number]#1.00 CD:127 Normal [facility] Family Medicine Office/Clini c Noteon 08-23-2022 Family Medicine Office/Clinic Note Normal [facility] Comment on above: Result Comment: Elec tronically Signed By: Mt GOODEN DO, FAAFP\.br\Date and Time Signed: 08/23/22 08:16 EST HIPAA Forms Officeon 023 HIPAA Forms Office [id number]#1.00 CD:127 Normal [facility] Legal Correspondence Officeo n 08-23-2022 Legal Correspondence Office [id number]#1.00 CD:127 Normal [facility] Legal Correspondence Office [id number]#1.00 CD:127 Normal [facility] Office/Clinic Note-Physician on 08-23-2022 Office/Clinic Note-Physician [id number]#1.00 CD:127 Normal [facility] Patient Correspondenceon Patient Correspondence [id number]#1.00 CD:127 Normal [facility] Patient Correspondence [id number]#1.00 CD:127 Normal [facility] Patient Correspondence [id number]#1.00 CD:127 Normal [facility] Patient Correspondence [id number]#1.00 CD:127 Normal [facility] Patient Correspondence [id number]#1.00 CD:127 [facility] Patient Educationon 08-23-19 Patient Education [facility] Patient History Officeon Patient History Office [id number]#1.00 CD:127 [facility] Physician Referralon 023 Physician Referral [id number]#1.00C D:127 Normal [facility] Physician Referralon 022 Physician Referral [id number]#1.0 0CD:127 Normal [facility] Reminderson 08-02-2022 Reminders [facility] Family Medicine Office/Clini c Noteon 08-01-2022 Family Medicine Office/Clinic Note Normal [facility] Comment on above: Result Comment: Elec tronically Signed By: Thao Duncan DO\Date and Time Signed: 08/01/22 20:01 EST Patient Educationon 08-01-20 22 Patient Education Normal [facility] ANES POSTPROC EVALon 022 ANES POSTPROC EVAL HNO ID: [id number] Author: Vincenzo Laughlin MD Service: ? Author [...] June 08, 2022 TIME: 5:56 PM CSN: [id number] Normal [facility] ANES PRE-OPon 06-08-2022 ANES PRE-OP HNO ID: [id number] Author: Vincenzo Laughlin MD Service: ? Author Type: Anesthesiologist Type: Anesthesia Preprocedure Evaluation Filed: 06/08/2022 12:32 PM Note Text: ANESTHESIOLOGY DAY OF SURGERY NOTE : 1950 Procedure Information Date/Time: 06/08/22 1300 Scheduled providers: Katrina Urena MD; Vincenzo Laughlin MD; Sky Howe APRN.[employer] Procedure: EGD DIAGNOSTIC Location: Gastroenterology Estimated body [...] June 08, 2022 TIME: 12:31 PM CSN: [id number] Normal [facility] EGD DIAGNOSTICon 06-08-2022 [facility] GLUCOSE, BLOOD (POC)on 06-08 Glucose [Mass/Vol] 129 mg/dL Abnormal 74 - 99 mg/dL [facility] Glucose [Mass/Vol] 95 mg/dL 74 - 99 mg/dL [facility] NURSING PROGon 06-08-2022 NURSING PROG HNO ID: [id number] Author: Leonor Osorio RN Service: Nursing Author [...] Electronically Signed By: Leonor Osorio RN Normal [facility] NURSING PROG HNO ID: [id number] Author: Marguerite Potts RN Service: Nursing Author [...] Marguerite Potts RN In Department: GASTROENTEROLOGY Normal [facility] SURGICAL PATHOLOGYon 022 ADDENDUM 1: Normal [facility] Comment on above: Order Comment: Specjoss mendoza Type: TISSUE SPECIMENOrdering Facility: [facility] Address: [address] [place] [address] Result Comment: H. p ylori immunostain performed on the stomach biopsy (part A) to evaluate the chronic gastritis is negative for organisms. Laboratory Developed Test (LDT) Disclaimer: Performance characteristics of immunohistochemical, immunofluorescent and chromogenic in-situ hybridization tests have been determined by the performing laboratory within [facility]???s [place] [facility] [place] ([facility], [facility], [facility] or [facility]) in a manner consistent with CLIA [...] at 3:20 PM Performed By: #### S ####Tianji [id number] [address] [place] CASE REPORT Normal [facility] Comment on above: Order Comment: Speci men Type: TISSUE SPECIMENOrdering Facility: [facility] Address: [address] [place] [address] Result Comment: Surg [facility] Pathology Report Case: [id number] Authorizing Provider: Katrina Urena MD Collected: 06/08/2022 12:47 PM Ordering Location: Gastroenterology Received: 06/08/2022 03:49 PM Pathologist: Sky Alvarenga MD Specimens: A) - STOMACH BIOPSY, gastric antrum B) - STOMACH BIOPSY, gastric antrum nodule C) - ESOPHAGUS BIOPSY, @41 D) - ESOPHAGUS BIOPSY, @39 E) - ESOPHAGUS BIOPSY, @38 Performed By: #### S ####DigitingALBERTST LABORATORYCLIA [id number] [address] OF [place] DIAGNOSIS COMMENT H. pylori immunostai n is pending. Normal [facility] Comment on above: Order Comment: Speci kelly Type: TISSUE SPECIMENOrdering Facility: [facility] Address: [address] [place] [address] Performed By: #### S ####[facility] LABORATORYCLIA [id number] [address] STATES OF [facility] FINAL DIAGNOSIS Normal [facility] Comment on above: Order Comment: Speci men Type: TISSUE SPECIMENOrdering Facility: [facility] Address: [address] [place] [address] Result Comment: A. S tomach, biopsy: - [...] negative for dysplasia. Performed By: #### S ####[facility] LABORATORYCLIA [id number] [address] [place] FINAL PERFORMING LAB Normal [facility] Comment on above: Order Comment: Speci kelly Type: TISSUE SPECIMENOrdering Facility: [facility] Address: [address] [place] [address] Result Comment: Diag nostic interpretation performed at [facility], [address] [place] [address] CLIA# [id number] [place] Lab Technician: Nellie Galvin M.D. Performed By: #### S ####[facility] LABORATORYCLIA [id number] [address] [place] GROSS DESCRIPTION Normal [facility] Comment on above: Order Comment: Speci men Type: TISSUE SPECIMENOrdering Facility: [facility] Address: [address], [place] [address] Result Comment: A. S TOMACH BIOPSY Received [...] in one cassette. Gross examination performed at [facility], [address] [place] [address] JS 06/08/2022 7:53 PM Performed By: #### S ####MAHAMED LABORATORYIA [id number] [place] [id number] [facility] Anibal 06-01-2022 CNPN Telephone ([facility]) JAS GONZALEZ ([id number]) 1950 M DEF Date Time Provider Department 06/01/22 DEE MARIN [...] have family/friend present for procedure transport home:Patient/patient key account representative was told that if they do not have a responsible adult accompany them to their procedure; and remain in the endoscopy area until they are discharged; that their procedure cannot be done with sedation or anesthesia and may be cancelled. Any barriers to Patient learning: Patient/Patient [employer] responded appropriately on phone. Type of instruction given: Verbal by telephone contact. Dee Marin RN Allergies As of Date: 06/01/2022 (Not on File) Date Reviewed: Never Reviewed Reason for Visit: Appointment Confirmation [2408] Problem List As Of Date: 06/01/2022 (None) Encounter Status:Closed by DEE MARIN on 06/01/22 [facility] 04-26-2022 [facility] Telephone ([facility]) JAS GONZALEZ ([id number]) 1950 M [facility] Date Time Provider Department 04/26/22 MARGUERITE POTTS [facility] During your visit today, we recorded the following information about you: Marguerite Potts RN 04/26/2022 3:44 PM Signed Attempted to reach the patient at the contact number that they provided [phone] (home) . 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 key account representative they must have a responsible adult [...] Number to call with questions or concerns [phone] Number to call to cancel their procedure [phone] Marguerite Potts RN Allergies As of Date: 04/26/2022 (Not on File) Date Reviewed: Never Reviewed Reason for Visit: Appointment Confirmation [3213] Problem List As Of Date: 04/26/2022 (None) Encounter Status:Closed by MARGUERITE POTTS on 04/26/22 Normal [facility] CBC panel Auto (Bld)on 04-09 Erythrocyte distribution width (RBC) [Ratio] 13.3 % 11.5 - 15.0 % [facility] Hematocrit (Bld) [Volume fraction] 46.8 % 39.0 - 51.0 % [facility] Hemoglobin (Bld) [Mass/Vol] 15.1 g/dL 13.0 - 17.0 g/dL [facility] MCH (RBC) [Entitic mass] 30.7 pg 26.0 - 34.0 pg [facility] MCHC (RBC) [Mass/Vol] 32.3 g/dL 30.5 - 36.0 g/dL [facility] MCV (RBC) [Entitic vol] 95.1 fL 80.0 - 100.0 fL [facility] Nucleated RBC (Bld) [#/Vol] <0.01 k/uL [facility] Platelet mean volume (Bld) [Entitic vol] 10.8 fL 9.0 - 12.7 fL [facility] Platelets (Bld) [#/Vol] 165 10*3/uL 150 - 400 k/uL [facility] RBC (Bld) [#/Vol] 4.92 10*6/uL 4.20 - 6.00 m/uL [facility] WBC (Bld) [#/Vol] 8.48 10*3/uL 3.70 - 11.00 k/u L [facility] Erythrocyte distribution width (RBC) [Ratio] 13.3 % Normal 11.5-15.0 [facility] Comment on above: Order Comment: Speci men Type: BLOOD SPECIMENOrdering Facility: [facility] Address: [address] [place], [place] [address] Performed By: #### 5 8410-2 ####[facility] LABCLIA [id number] [address] [place] Hematocrit (Bld) [Volume fraction] 46.8 % Normal 39.0-51.0 [facility] Comment on above: Order Comment: Speci men Type: BLOOD SPECIMENOrdering Facility: [facility] Address: [address] [place], [place] [address] Performed By: #### 5 8410-2 ####[facility] LABCLIA [id number] [place] [address] [place] Hemoglobin (Bld) [Mass/Vol] 15.1 g/dL Normal 13.0-17.0 [facility] Comment on above: Order Comment: Speci men Type: BLOOD SPECIMENOrdering Facility: [facility] Address: [address] [place], [place] [address] Performed By: #### 5 8410-2 ####[facility] LABIA [id number] [place] [address] [place] MCH (RBC) [Entitic mass] 30.7 pg Normal 26.0-34.0 [facility] Comment on above: Order Comment: Speci men Type: BLOOD SPECIMENOrdering Facility: [facility] Address: [address] [place], [place] [address] Performed By: #### 5 8410-2 ####[facility] LABCLIA [id number] [place] [address] [place] MCHC (RBC) [Mass/Vol] 32.3 g/dL Normal 30.5-36.0 [facility] Comment on above: Order Comment: Speci men Type: BLOOD SPECIMENOrdering Facility: [facility] Address: [address] [place] [address] Performed By: #### 5 8410-2 ####[facility] LABCLIA [id number] [address] MCV (RBC) [Entitic vol] 95.1 fL Normal 80.0-100.0 [facility] Comment on above: Order Comment: Speci men Type: BLOOD SPECIMENOrdering Facility: [facility] Address: [address] [place], [place] [address] Performed By: #### 5 8410-2 ####[facility] LABIA [id number] [place] [address] [place] Nucleated RBC (Bld) [#/Vol] 10*3/uL Normal <0.01 [facility] Comment on above: Order Comment: Speci men Type: BLOOD SPECIMENOrdering Facility: [facility] Address: [address] [place], [place] [address] Performed By: #### 5 8410-2 ####[facility] LABIA [id number] [place] [address] [place] Platelet mean volume (Bld) [Entitic vol] 10.8 fL Normal 9.0-12.7 [facility] Comment on above: Order Comment: Speci men Type: BLOOD SPECIMENOrdering Facility: [facility] Address: [address] [place] [address] Performed By: #### 5 8410-2 ####[facility] LABCLIA [id number] [place] [address] [place] Platelets (Bld) [#/Vol] 165 10*3/uL Normal 150-400 [facility] Comment on above: Order Comment: Speci men Type: BLOOD SPECIMENOrdering Facility: [facility] Address: [address] [place] [address] Performed By: #### 5 8410-2 ####[facility] LABCLIA [id number] [place] [address] [place] RBC (Bld) [#/Vol] 4.92 10*6/uL Normal 4.20-6.00 [facility] Comment on above: Order Comment: Speci men Type: BLOOD SPECIMENOrdering Facility: [facility] Address: [address] [place] [address] Performed By: #### 5 8410-2 ####[facility] LABIA [id number] [address] OF [facility] WBC (Bld) [#/Vol] 8.48 10*3/uL Normal 3.70-11.00 [facility] Comment on above: Order Comment: Speci men Type: BLOOD SPECIMENOrdering Facility: [facility] Address: [address] [place] [address] Performed By: #### 5 8410-2 ####[facility] LABIA [id number] [address] [place] CNOVon 04-09-2022 CNOV Office Visit (GASTQ3 ) JAS GONZALEZ ([id number]) 1950 M DEF Date Time Provider Department [...] [facility] GERD with hiatal hernia custodial current use of oral hypoglycemic drug Lumbar [...] Findings: The affected area was not inflamed. [place] classification C 40, M 35. Biopsy collected. [...] Past Histories independently gathered by the clinical technical sales support specialist and the remaining scribed note accurately describes my personal service to the patient. Katrina Urena M.D. Office:[phone] Appointments [phone] (more content not included)... Normal [facility] Comprehensive metabolic 2000 panelon 04-09-2022 Albumin [Mass/Vol] 4.4 g/dL Normal 3.9-4.9 [facility] Comment on above: Order Comment: Speci men Type: BLOOD SPECIMENOrdering Facility: [facility] Address: [address] [place] [address] Performed By: #### 2 4323-8 ####[facility] LABCLIA [id number] [place] [address] [place] ALP [Catalytic activity/Vol] 70 U/L Normal 38-113 [facility] Comment on above: Order Comment: Speci men Type: BLOOD SPECIMENOrdering Facility: [facility] Address: [address] [place], [place] [address] Performed By: #### 2 4323-8 ####[facility] LABCLIA [id number] [place] [address] [place] ALT [Catalytic activity/Vol] 33 U/L Normal 10-54 [facility] Comment on above: Order Comment: Speci men Type: BLOOD SPECIMENOrdering Facility: [facility] Address: [address] [place] [address] Performed By: #### 2 4323-8 ####[facility] LABCLIA [id number] [place] [address] [place] Anion gap [Moles/Vol] 12 mmol/L Normal 9-18 [facility] Comment on above: Order Comment: Speci men Type: BLOOD SPECIMENOrdering Facility: [facility] Address: [address] [place] [address] Performed By: #### 2 4323-8 ####[facility] LABCLIA [id number] [place] [address] [place] AST [Catalytic activity/Vol] 32 U/L Normal 14-40 [facility] Comment on above: Order Comment: Speci men Type: BLOOD SPECIMENOrdering Facility: [facility] Address: [address] [place] [address] Performed By: #### 2 4323-8 ####[facility] LABCLIA [id number] [place] [address] [place] Bilirubin [Mass/Vol] 0.4 mg/dL Normal 0.2-1.3 [facility] Comment on above: Order Comment: Speci men Type: BLOOD SPECIMENOrdering Facility: [facility] Address: [address] [place] [address] Performed By: #### 2 4323-8 ####[facility] LABCLIA [id number] [place] [address] [place] Calcium [Mass/Vol] 9.9 mg/dL Normal 8.5-10.2 [facility] Comment on above: Order Comment: Speci men Type: BLOOD SPECIMENOrdering Facility: [facility] Address: [address] [place] [address] Performed By: #### 2 4323-8 ####[facility] LABCLIA [id number] [place] [address] [place] Chloride [Moles/Vol] 100 mmol/L Normal 97-105 [facility] Comment on above: Order Comment: Speci men Type: BLOOD SPECIMENOrdering Facility: [facility] Address: [address] [place], [place] [address] Performed By: #### 2 4323-8 ####[facility] LABCLIA [id number] [place] [address] [place] CO2 [Moles/Vol] 27 mmol/L Normal 22-30 [facility] Comment on above: Order Comment: Speci men Type: BLOOD SPECIMENOrdering Facility: [facility] Address: [address] [place], [place] [address] Performed By: #### 2 4323-8 ####[facility] LABCLIA [id number] [place] [address] [place] Creatinine [Mass/Vol] 0.92 mg/dL Normal 0.73-1.22 [facility] Comment on above: Order Comment: Speci men Type: BLOOD SPECIMENOrdering Facility: [facility] Address: [address] [place] [address] Performed By: #### 2 4323-8 ####[facility] LABIA [id number] [place] [address] [place] ESTIMATED GLOMERULAR FILTRATION RATE 87 mL/min/1.73m??? Normal >=60 [facility] Comment on above: Order Comment: Jay mendoza Type: BLOOD SPECIMENOrdering Facility: [facility] Address: [address] [place] [address] Result Comment: Aminta mated Glomerular Filtration Rate [...] actual GFR. Performed By: #### 2 4323-8 ####[facility] LABCLIA [id number] [place] [address] [place] Glucose [Mass/Vol] 99 mg/dL Normal 74-99 [facility] Comment on above: Order Comment: Jay mendoza Type: BLOOD SPECIMENOrdering Facility: [facility] Address: [address] [place] [address] Result Comment: The [place] Diabetes Association (ADA) provides guidance for cutoff [...] Standards of Medical Care in Diabetes 2016, [place] [employer] Association. Diabetes Care. 2016.39(Suppl 1). Performed By: #### 2 4323-8 ####[facility] LABCLIA [id number] [place] [address] [place] Potassium [Moles/Vol] 4.2 mmol/L Normal 3.7-5.1 [facility] Comment on above: Order Comment: Speci men Type: BLOOD SPECIMENOrdering Facility: [facility] Address: [address] [place], [place] [address] Performed By: #### 2 4323-8 ####[facility] LABCLIA [id number] [place] [address] [place] Protein [Mass/Vol] 7.7 g/dL Normal 6.3-8.0 [facility] Comment on above: Order Comment: Speci men Type: BLOOD SPECIMENOrdering Facility: [facility] Address: [address] [place], [place] [address] Performed By: #### 2 4323-8 ####[facility] LABCLIA [id number] [place] [address] [place] Sodium [Moles/Vol] 139 mmol/L Normal 136-144 [facility] Comment on above: Order Comment: Speci men Type: BLOOD SPECIMENOrdering Facility: [facility] Address: [address] [place], [place] [address] Performed By: #### 2 4323-8 ####[facility] LABCLIA [id number] [place] [address] [place] Urea nitrogen [Mass/Vol] 16 mg/dL Normal 9-24 [facility] Comment on above: Order Comment: Speci men Type: BLOOD SPECIMENOrdering Facility: [facility] Address: [address] [place] [address] Performed By: #### 2 4323-8 ####[facility] LABCLIA [id number] [place] [id number] [place] CHEMISTRYOrdered By: Alia [facility] on 09-07-2021 HbA1c (Bld) [Mass fraction] 6.3 % High <=5.9% [facility] ChemAutoSS Vital Signs Date Time Vital Sign Value Performing Clinician Facility 08-26-2023 09:39-0500 Blood Pressure Location [facility] 08-26-2023 09:39-0500 Diastolic blood pressure 70 mm[Hg] [facility] [place] 08-26-2023 09:39-0500 Heart rate 83 /min [facility] 08-26-2023 09:39-0500 SaO2% (BldA) [Mass fraction] 95 % [facility] [place] 08-26-2023 09:39-0500 Systolic blood pressure 122 mm[Hg] [facility] [place] [facility] 07-17-2023 09:46-0500 Blood Pressure Location Basem Murillo [facility] 07-17-2023 09:46-0500 Diastolic blood pressure 72 mm[Hg] Basem Murillo [facility] 07-17-2023 09:46-0500 Heart rate 81 /min Basem Murillo [facility] 07-17-2023 09:46-0500 SaO2% (BldA) [Mass fraction] 95 % Basem Murillo [facility] 07-17-2023 09:46-0500 Systolic blood pressure 102 mm[Hg] Basem Murillo [facility] 07-09-2023 10:05-0500 Heart rate 83 /min Mhd Al-Marrawi [facility] 07-09-2023 10:05-0500 SaO2% (BldA) [Mass fraction] 95 % Mhd Al-Marrawi [facility] 07-09-2023 10:05-0500 Body temperature 97.52 [degF] [facility]hd Al-Marrawi [facility] 07-09-2023 10:04-0500 Diastolic blood pressure 69 mm[Hg] Mhd Al-Marrawi [facility] 07-09-2023 10:04-0500 Mean blood pressure 84 mm[Hg] d Al-Marrawi [facility] 07-09-2023 10:04-0500 Systolic blood pressure 113 mm[Hg] d Al-Marrawi [facility] 07-09-2023 10:04-0500 Respiratory rate 20 /min d Al-Marrawi [facility] 06-26-2023 09:42-0500 Blood Pressure Location Basem Murillo [facility] 06-26-2023 09:42-0500 Diastolic blood pressure 69 mm[Hg] Basem Murillo [facility] 06-26-2023 09:42-0500 Heart rate 84 /min Basem Murillo [facility] 06-26-2023 09:42-0500 SaO2% (BldA) [Mass fraction] 96 % Basem Murillo [facility] 06-26-2023 09:42-0500 Systolic blood pressure 106 mm[Hg] Basem Murillo [facility] 06-03-2023 13:35-0400 Blood Pressure Location [facility] 06-03-2023 13:35-0400 Body temperature 98.42 [degF] [place] [facility] 06-03-2023 13:35-0400 Diastolic blood pressure 62 mm[Hg] [place] [facility] 06-03-2023 13:35-0400 Heart rate 78 /min [place] [facility] 06-03-2023 13:35-0400 Respiratory rate 22 /min [place] [facility] 06-03-2023 13:35-0400 SaO2% (BldA) [Mass fraction] 94 % [place] [facility] 06-03-2023 13:35-0400 Systolic blood pressure 104 mm[Hg] [place] [facility] 04-09-2023 10:00-0400 Blood Pressure [facility] 04-09-2023 10:00-0400 Body temperature 98.42 [degF] [facility] 04-09-[facility]23 10:00-0400 Diastolic blood pressure 68 mm[Hg] [facility] 04-09-2023 10:00-0400 Heart rate 90 /min [facility] 04-09-2023 10:00-0400 Mean blood pressure 80 mm[Hg] [facility] 04-09-2023 10:00-0400 Respiratory rate 22 /min [facility] 04-09-2023 10:00-0400 SaO2% (BldA) [Mass fraction] 93 % [facility] 04-09-2023 10:00-0400 Systolic blood pressure 104 mm[Hg] [facility] 03-13-2023 14:00-0400 Hourly Rounding Jordan Dianne [facility] 03-13-2023 14:00-0400 Promise to Return Jordan Dianne [facility] 03-13-2023 04:00-0400 Diastolic blood pressure 65 mm[Hg] Jordan Dianne [facility] 03-13-2023 04:00-0400 Heart rate 85 /min Jordan Dianne [facility] 03-13-2023 04:00-0400 Hourly Rounding Jordan Dianne [facility] 03-13-2023 04:00-0400 Mean blood pressure 81 mm[Hg] Jordan Dianne [facility] 03-13-2023 04:00-0400 Promise to Return Jordan Dianne [facility] 03-13-2023 04:00-0400 SaO2% (BldA) [Mass fraction] 94 % Jordan Dianne [facility] 03-13-2023 04:00-0400 Systolic blood pressure 112 mm[Hg] Jordan Dianne [facility] 03-13-2023 03:44-0400 Diastolic blood pressure 63 mm[Hg] Jordan Dianne [facility] 03-13-2023 03:44-0400 Heart rate 82 /min Jordan Dianne [facility] 03-13-2023 03:44-0400 Mean blood pressure 78 mm[Hg] Jordan Dianne [facility] 03-13-2023 03:44-0400 SaO2% (BldA) [Mass fraction] 96 % Jordan Dianne [facility] 03-13-2023 03:44-0400 Systolic blood pressure 108 mm[Hg] Jordan Dianne [facility] 03-13-2023 03:00-0400 Diastolic blood pressure 67 mm[Hg] Jordan Dianne [facility] 03-13-2023 03:00-0400 Heart rate 81 /min Jordan Dianne [facility] 03-13-2023 03:00-0400 Hourly Rounding Jordan Dianne [facility] 03-13-2023 03:00-0400 Mean blood pressure 84 mm[Hg] Jordan Dianne [facility] 03-13-2023 03:00-0400 Promise to Return Jordan Dianne [facility] 03-13-2023 03:00-0400 Systolic blood pressure 118 mm[Hg] Jordan Dianne [facility] 03-13-2023 02:22-0400 Body temperature 97.52 [degF] Jordan Dianne [facility] 03-13-2023 02:22-0400 Heart rate 83 /min Jordan Dianne [facility] 03-13-2023 02:22-0400 Respiratory rate 16 /min Jordan Dianne [facility] 03-11-2023 10:00-0400 Blood Pressure Location Mhd Al-Marrawi [facility] 03-11-2023 10:00-0400 Body temperature 97.7 [degF] Mhd Al-Marrawi [facility] 03-11-2023 10:00-0400 Diastolic blood pressure 65 mm[Hg] d Al-Marrawi [facility] 03-11-2023 10:00-0400 Heart rate 93 /min d Al-Marrawi [facility] 03-11-2023 10:00-0400 Mean blood pressure 77 mm[Hg] [facility] Al-Marrawi [facility] 03-11-2023 10:00-0400 Respiratory rate 22 /min [facility] Al-Marrawi [facility] 03-11-2023 10:00-0400 SaO2% (BldA) [Mass fraction] 94 % [facility] 03-11-2023 10:00-0400 Systolic blood pressure 100 mm[Hg] [facility] 02-19-2023 16:33-0400 [facility] 02-19-2023 16:33-0400 [facility] 02-19-2023 16:00-0400 Hourly Rounding [facility] 02-19-2023 16:00-0400 [facility] 02-19-2023 15:29-0400 Heart rate 86 /min [facility] 02-19-2023 15:29-0400 SaO2% (BldA) [Mass fraction] 94 % [facility] 02-19-2023 15:28-0400 Diastolic blood pressure 86 mm[Hg] [facility] 02-19-2023 15:28-0400 Mean blood pressure 103 mm[Hg] [facility] 02-19-2023 15:28-0400 Systolic blood pressure 136 mm[Hg] [facility] 02-19-2023 15:28-0400 Body temperature 97.7 [degF] [facility] 02-19-2023 15:00-0400 Blood Pressure Location [facility] [facility] 02-19-2023 15:00-0400 Hourly Rounding [facility] 02-19-2023 15:00-0400 [facility] 15:00-0400 Respiratory rate 16 /min [facility] 02-19-2023 11:33-0400 Heart rate 83 /min [facility] 02-19-2023 11:33-0400 SaO2% (BldA) [Mass fraction] 93 % [facility] 02-19-2023 11:33-0400 Body temperature 98.42 [degF] [facility] 02-19-2023 11:33-0400 Diastolic blood pressure 92 mm[Hg] [facility] 02-19-2023 11:33-0400 Mean blood pressure 109 mm[Hg] [facility] 02-19-2023 11:33-0400 Systolic blood pressure 144 mm[Hg] [facility] 02-19-2023 08:18-0400 SaO2% (BldA) [Mass fraction] 93 % [facility] 02-19-2023 08:13-0400 Heart rate 56 /min [facility] 02-19-2023 08:13-0400 Diastolic blood pressure 80 mm[Hg] [facility] 02-19-2023 08:13-0400 Mean blood pressure 94 mm[Hg] [facility] 02-19-2023 08:13-0400 Systolic blood pressure 121 mm[Hg] [facility] 02-19-2023 08:13-0400 Body temperature 97.52 [degF] [facility] 02-19-2023 08:00-0400 Respiratory rate 14 /min [facility] 02-18-2023 20:48-0400 gluc 173 mg/dL [facility] 02-18-2023 16:38-0400 Heart rate 65 /min [facility] 02-18-2023 15:30-0400 Mean blood pressure 101 mm[Hg] [facility]-18-2023 15:30-0400 Respiratory rate 24 /min [facility] 02-18-2023 15:21-0400 Mean blood pressure 92 mm[Hg] [facility] 02-18-2023 15:17-0400 Mean blood pressure 92 mm[Hg] [facility] 02-18-2023 08:50-0400 Heart rate 94 /min [facility] 02-18-2023 07:56-0400 Blood Pressure Location [place] [facility] 02-18-2023 07:56-0400 Body temperature 98.6 [degF] [facility] 02-18-2023 07:56-0400 Diastolic blood pressure 62 mm[Hg] [facility] 02-18-2023 07:56-0400 Heart rate 91 /min [facility] [facility] 02-18-2023 07:56-0400 Respiratory rate 20 /min [facility] [facility] 07-10-2023 07:56-0400 SaO2% (BldA) [Mass fraction] 90 % [facility] [place] [facility] 02-18-2023 07:56-0400 Systolic blood pressure 120 mm[Hg] [facility] [facility] 12-10-2022 10:02-0400 Blood Pressure Location [place] [facility] 12-10-2022 10:02-0400 Body temperature 98.6 [degF] [facility] [place] [facility] 12-10-2022 10:02-0400 Diastolic blood pressure 72 mm[Hg] [facility] [facility] 12-10-2022 10:02-0400 Heart rate 89 /min [facility] [facility] 12-10-2022 10:02-0400 Respiratory rate 18 /min [facility] [facility] 12-10-2022 10:02-0400 SaO2% (BldA) [Mass fraction] 97 % [place] [facility] 12-10-2022 10:02-0400 Systolic blood pressure 136 mm[Hg] [facility] [place] [facility] 12-05-2022 12:56-0400 Body weight 154.22 kg Juma Monk MD Work Phone: [facility] 12-05-2022 12:56-0400 Diastolic blood pressure 74 mm[Hg] Juma Monk MD Work Phone: [facility] 12-05-2022 12:56-0400 Heart rate 83 /min Juma Monk MD Work Phone: [facility] 12-05-2022 12:56-0400 Respiratory rate 18 /min Juma Monk MD Work Phone: [facility] 12-05-2022 12:56-0400 SaO2% (BldA) [Mass fraction] 95 % Juma Monk MD Work Phone: [facility] 12-05-2022 12:56-0400 Systolic blood pressure 118 mm[Hg] Juma Monk MD Work Phone: [facility] 12-02-2022 15:22-0400 Diastolic blood pressure 84 mm[Hg] [facility] 12-02-2022 15:22-0400 Heart rate 78 /min [facility] 12-02-2022 15:22-0400 Mean blood pressure 105 mm[Hg] [facility] 12-02-2022 15:22-0400 Respiratory rate 18 /min [facility] 12-02-2022 15:22-0400 SaO2% (BldA) [Mass fraction] 96 % [facility] 12-02-2022 15:22-0400 Systolic blood pressure 148 mm[Hg] [facility] 12-02-2022 12:08-0400 Body temperature 98.78 [degF] [facility] 12-02-2022 12:08-0400 Diastolic blood pressure 90 mm[Hg] [facility] 12-02-2022 12:08-0400 Heart rate 73 /min [facility] 12-02-2022 12:08-0400 Respiratory rate 18 /min [facility] 12-02-2022 12:08-0400 SaO2% (BldA) [Mass fraction] 95 % [facility] 12-02-2022 12:08-0400 Systolic blood pressure 152 mm[Hg] [facility] 11-29-2022 09:53-0400 Diastolic blood pressure 66 mm[Hg] Pawan Zumbar [facility] 11-29-2022 09:53-0400 Heart rate 85 /min Pawan Zumbar [facility] 11-29-2022 09:53-0400 Mean blood pressure 84 mm[Hg] Pawan Zumbar [facility] 11-29-2022 09:53-0400 Systolic blood pressure 121 mm[Hg] Pawan Zumbar [facility] 11-14-2022 13:23-0400 Body height 185.4 cm Juma Monk MD Work Phone: [facility] 11-14-2022 13:23-0400 Body weight 151.5 kg Juma Monk MD Work Phone: [facility] 11-14-2022 13:23-0400 Diastolic blood pressure 63 mm[Hg] Juma Monk MD Work Phone: [facility] 11-14-2022 13:23-0400 Heart rate 73 /min Juma Monk MD Work Phone: [facility] 11-14-2022 13:23-0400 Systolic blood pressure 121 mm[Hg] Juma Monk MD Work Phone: [facility] 11-08-2022 10:04-0400 Blood Pressure Location [place] [facility] 11-08-2022 10:04-0400 Body temperature 97.7 [degF] [place] [facility] 11-08-2022 10:04-0400 Diastolic blood pressure 80 mm[Hg] [place] [facility] 11-08-2022 10:04-0400 Heart rate 72 /min [facility] [place] [facility] 11-08-2022 10:04-0400 Respiratory rate 18 /min [place] [facility] 11-08-2022 10:04-0400 SaO2% (BldA) [Mass fraction] 96 % [place] [facility] 11-08-2022 10:04-0400 Systolic blood pressure 130 mm[Hg] [place] [facility] 10-24-2022 08:59-0400 Heart rate 63 /min Pawan Zumbar [facility] 10-24-2022 08:59-0400 SaO2% (BldA) [Mass fraction] 95 % Pawan Zumbar [facility] 10-24-2022 08:59-0400 Diastolic blood pressure 77 mm[Hg] Pawan Zumbar [facility] 10-24-2022 08:59-0400 Mean blood pressure 90 mm[Hg] Pawan Zumbar [facility] 10-24-2022 08:59-0400 Systolic blood pressure 118 mm[Hg] Pawan Zumbar [facility] 10-24-2022 08:48-0400 Diastolic blood pressure 108 mm[Hg] Pawan Zumbar [facility] 10-24-2022 08:48-0400 Heart rate 66 /min Pawan Zumbar [facility] 10-24-2022 08:48-0400 Respiratory rate 18 /min Pawan Zumbar [facility] 10-24-2022 08:48-0400 SaO2% (BldA) [Mass fraction] 92 % Pawan Zumbar [facility] 10-24-2022 08:48-0400 Systolic blood pressure 153 mm[Hg] Pawan Zumbar [facility] 10-24-2022 07:25-0400 Heart rate 72 /min Pawan Zumbar [facility] 10-24-2022 07:25-0400 SaO2% (BldA) [Mass fraction] 93 % Pawan Zumbar [facility] 10-24-2022 07:25-0400 Diastolic blood pressure 67 mm[Hg] Pawan Zumbar [facility] 10-24-2022 07:25-0400 Mean blood pressure 81 mm[Hg] Pawan Zumbar [facility] 10-24-2022 07:25-0400 Systolic blood pressure 109 mm[Hg] Pawan Zumbar [facility] 10-24-2022 07:25-0400 Body temperature 97.7 [degF] Pawan Zumbar [facility] 10-24-2022 07:25-0400 Respiratory rate 16 /min Pawan Zumbar [facility] 09-27-2022 09:21-0500 Diastolic blood pressure 69 mm[Hg] Pawan Zumbar [facility] 09-27-2022 09:21-0500 Heart rate 75 /min Pawan Zumbar [facility] 09-27-2022 09:21-0500 Mean blood pressure 83 mm[Hg] Pawan Zumbar [facility] 09-27-2022 09:21-0500 Systolic blood pressure 111 mm[Hg] Pawan Zumbar [facility] 09-14-2022 10:47-0500 Blood Pressure Location [facility] 09-14-2022 10:47-0500 Body temperature 98.96 [degF] [facility] 09-14-2022 10:47-0500 Diastolic blood pressure 74 mm[Hg] [facility] 09-14-2022 10:47-0500 Heart rate 73 /min [facility] 09-14-2022 10:47-0500 SaO2% (BldA) [Mass fraction] 93 % [facility] 09-14-2022 10:47-0500 Systolic blood pressure 130 mm[Hg] [facility] 08-28-2022 10:42-0500 Blood Pressure Location [place] [facility] 08-28-2022 10:42-0500 Body temperature 97.7 [degF] [place] [facility] 08-28-2022 10:42-0500 Diastolic blood pressure 72 mm[Hg] [place] [facility] 08-28-2022 10:42-0500 Heart rate 74 /min [place] [facility] 08-28-2022 10:42-0500 SaO2% (BldA) [Mass fraction] 94 % [place] [facility] 08-28-2022 10:42-0500 Systolic blood pressure 106 mm[Hg] [place] [facility] 08-23-2022 14:33-0500 Diastolic blood pressure 73 mm[Hg] Pawan Lear [facility] 08-23-2022 14:33-0500 Heart rate 67 /min Pawan Larsonumbar [facility] 08-23-2022 14:33-0500 Mean blood pressure 88 mm[Hg] Pawan Zumbar [facility] 08-23-2022 14:33-0500 Respiratory rate 20 /min Pawan Larsonumbar [facility] 08-23-2022 14:33-0500 Systolic blood pressure 118 mm[Hg] Pawan Larsonumbar [facility] 08-23-2022 07:44-0500 Blood Pressure Location [place] [facility] 08-23-2022 07:44-0500 Body temperature 97.88 [degF] [place] [facility] 08-23-2022 07:44-0500 Diastolic blood pressure 78 mm[Hg] [place] [facility] 08-23-2022 07:44-0500 Heart rate 78 /min [place] [facility] 08-23-2022 07:44-0500 Respiratory rate 16 /min [place] [facility] 08-23-2022 07:44-0500 SaO2% (BldA) [Mass fraction] 94 % [place] [facility] 08-23-2022 07:44-0500 Systolic blood pressure 130 mm[Hg] [place] [facility] 08-01-2022 17:02-0500 Blood Pressure Location Thao Urbanojhony [facility] 08-01-2022 17:02-0500 Body temperature 97.88 [degF] [facility] 08-01-2022 17:02-0500 Diastolic blood pressure 70 mm[Hg] [facility] 08-01-2022 17:02-0500 Heart rate 85 /min [facility] 08-01-2022 17:02-0500 SaO2% (BldA) [Mass fraction] 92 % [facility] 08-01-2022 17:02-0500 Systolic blood pressure 120 mm[Hg] [facility] 06-22-2022 12:00-0500 Diastolic blood pressure 70 mm[Hg] [facility] 06-22-2022 12:00-0500 Mean blood pressure 90 mm[Hg] [facility] 06-22-2022 12:00-0500 Systolic blood pressure 130 mm[Hg] [facility] 06-22-2022 11:52-0500 Blood Pressure Location [facility] 06-22-2022 11:52-0500 Body temperature 98.24 [degF] [facility] 06-22-2022 11:52-0500 Diastolic blood pressure 98 mm[Hg] [facility] 06-22-2022 11:52-0500 Heart rate 73 /min [facility] 06-22-2022 11:52-0500 SaO2% (BldA) [Mass fraction] 95 % [facility] 06-22-2022 11:52-0500 Systolic blood pressure 140 mm[Hg] [facility] 06-08-2022 13:40-0400 Diastolic blood pressure 76 mm[Hg] Katrina Urena MD Work Phone: [facility] 06-08-2022 13:40-0400 Heart rate 77 /min Katrina Urena MD Work Phone: [facility] 06-08-2022 13:40-0400 Respiratory rate 16 /min Katrina Urena MD Work Phone: [facility] 06-08-2022 13:40-0400 SaO2% (BldA) [Mass fraction] 94 % Katrina Urena MD Work Phone: [facility] 06-08-2022 13:40-0400 Systolic blood pressure 119 mm[Hg] Katrina Urena MD Work Phone: [facility] 06-08-2022 13:03-0400 Body temperature 97.7 [degF] Katrina Urena MD Work Phone: [facility] 06-08-2022 12:10-0400 Body height 185.4 cm Katrina Urena MD Work Phone: [facility] 06-08-2022 12:10-0400 Body weight 144.24 kg Katrina Urena MD Work Phone: [facility] 02-22-2022 09:29-0400 Blood Pressure Location Gonzales NILL [facility] 02-22-2022 09:29-0400 Diastolic blood pressure 76 mm[Hg] [place] N[facility] 02-22-2022 09:29-0400 Heart rate 78 /min Gonzales N[facility] 02-22-2022 09:29-0400 Respiratory rate 16 /min Gonzales NILL [facility] 02-22-2022 09:29-0400 Systolic blood pressure 120 mm[Hg] Gonzales NILL [facility] 02-20-2022 07:43-0400 Blood Pressure Location [place] [facility] 02-20-2022 07:43-0400 Body temperature 97.88 [degF] [place] [facility] 02-20-2022 07:43-0400 Diastolic blood pressure 72 mm[Hg] [place] [facility] 02-20-2022 07:43-0400 Heart rate 81 /min [place] [facility] 02-20-2022 07:43-0400 Respiratory rate 18 /min [place] [facility] 02-20-2022 07:43-0400 SaO2% (BldA) [Mass fraction] 94 % [place] [facility] 02-20-2022 07:43-0400 Systolic blood pressure 124 mm[Hg] [place] [facility] 12-14-2021 15:06-0400 Blood Pressure Location [place] [facility] 12-14-2021 15:06-0400 Body temperature 98.06 [degF] [place] [facility] 12-14-2021 15:06-0400 Diastolic blood pressure 72 mm[Hg] [facility] 12-14-2021 15:06-0400 Heart rate 70 /min [facility] 12-14-2021 15:06-0400 Respiratory rate 18 /min [facility] 12-14-2021 15:06-0400 SaO2% (BldA) [Mass fraction] 93 % [facility] 12-14-2021 15:06-0400 Systolic blood pressure 122 mm[Hg] [facility] Encounters Encounter Date Encounter Type Care Provider Facility Start: 09-04-2023 End: 09-04-2023 Patient encounter procedure [facility] Start: 08-26-2023 End: 08-26-2023 Patient encounter procedure [facility] Start: 08-26-2023 End: 08-26-2023 Well adult monitoring check done [facility] Start: 07-17-2023 End: 07-18-2023 ambulatory Matty Murillo Facility:[facility] Start: 07-17-2023 End: 07-17-2023 Patient encounter procedure Matty Murillo [facility] Start: 07-10-2023 End: 07-11-2023 ambulatory Matty Murillo Facility:[facility] Start: 07-09-2023 End: 07-10-2023 ambulatory Mhd Yaser Al-Piedadrawi Facility:[facility] Start: 07-09-2023 End: 07-09-2023 Patient encounter procedure Mhd Yaser Al-Piedadraalfonzo [facility] Start: 07-08-2023 End: 07-09-2023 ambulatory Mhd Yaser Al-Piedadrawi Facility:[facility] Start: 06-26-2023 End: 06-27-2023 ambulatory [facility] M[facility] Facility:[facility] Start: 06-26-2023 End: 06-26-2023 Patient encounter procedure Matty Murillo [facility] Start: 06-19-2023 End: 06-19-2023 ambulatory Kalli Copalanis Facility:[facility] Start: 06-11-2023 End: 06-12-2023 ambulatory KALLI COPALANIS Facility:[facility] Start: 06-11-2023 End: 06-11-2023 Patient encounter procedure KALLI COPALANIS [facility] Start: 06-03-2023 End: 06-04-2023 ambulatory [facility] A MAMTA Facility:[facility] Start: 06-03-2023 End: 06-03-2023 Patient encounter procedure [facility] A M[facility] Start: 06-03-2023 End: 06-04-2023 ambulatory [facility] Facility:[facility] Start: 06-03-2023 End: 06-03-2023 Patient encounter procedure Mt A MAMTA [facility] Start: 04-23-2023 End: 04-24-2023 ambulatory Osvaldo Garza Facility:[facility] Start: 04-23-2023 End: 04-23-2023 Patient encounter procedure Bryce Wilkins Luisana [facility] Start: 04-10-2023 End: 04-11-2023 ambulatory Mhd Yaser Al-Marrawi Facility:[facility] Start: 04-10-2023 End: 04-10-2023 Patient encounter procedure Mhd Yaser Al-Marrawi [facility] Start: 04-09-2023 End: 04-10-2023 ambulatory Mhd Yaser Al-Marrawi Facility:[facility] Start: 04-09-2023 End: 04-09-2023 Patient encounter procedure Mitch Amaro [facility] Start: 04-05-2023 End: 04-06-2023 ambulatory Mhd Yaser Al-Marrawi Facility:[facility] Start: 04-05-2023 End: 04-05-2023 Patient encounter procedure Mhd Yaser Al-Marrawi [facility] Start: 03-29-2023 End: 03-30-2023 ambulatory Matty Mills Murillo Facility:[facility] Start: 03-29-2023 End: 03-29-2023 Patient encounter procedure Matty Jose AlejandroJase Murillo [facility] Start: 03-13-2023 End: 03-13-2023 Emergency department patient visit Jordan Dean Facility:[facility] Start: 03-13-2023 End: 03-13-2023 Emergency department patient visit Jordan Dean [facility] Start: 03-11-2023 End: 03-12-2023 ambulatory Kate Eaton Facility:[facility] Start: 03-11-2023 End: 03-11-2023 Patient encounter procedure Mhd Yaser Al-Marrawi [facility] Start: 03-01-2023 End: 03-02-2023 ambulatory Kevin Chel LOBO Facility:[facility] Start: 02-20-2023 End: 03-22-2023 ambulatory [facility] Facility:CD:[id number] Start: 02-18-2023 End: 02-19-2023 Evaluation and management of inpatient Ahmad Moanshu Facility:[facility] Start: 02-18-2023 End: 02-19-2023 ambulatory [facility] A M[facility] Facility:[facility] Start: 02-18-2023 End: 02-19-2023 [facility] Start: 02-18-2023 End: 02-18-2023 Patient encounter procedure [facility] Start: 02-15-2023 End: 02-16-2023 ambulatory Mt [facility] Facility:[facility] Start: 02-15-2023 End: 02-15-2023 Patient encounter procedure [facility] Start: 01-25-2023 End: 01-26-2023 ambulatory MT A MAMTA Facility:[facility] Start: 01-25-2023 End: 01-25-2023 ambulatory [facility] A MAMTA Facility:[facility] Start: 01-23-2023 End: 01-24-2023 ambulatory [facility] Facility:[facility] Start: 12-17-2022 Telephone encounter Juma dupont MD Work Phone: Rheumatology Comment on above: Results Start: 12-10-2022 End: 12-11-2022 ambulatory [facility] A M[facility] Facility:[facility] Start: 12-10-2022 End: 12-10-2022 Patient encounter procedure [facility] Start: 12-05-2022 End: 12-05-2022 ambulatory MT A MAMTA Facility:[facility] Start: 12-05-2022 End: 12-05-2022 Subsequent hospital visit by physician Shelbie [facility] Comment on above: Bilateral low [...] Rheumatology Comment on above: [facility] Start: 12-02-2022 End: 12-02-2022 Emergency department patient visit Yandelnabila Bell Kim Facility:[facility] Start: 12-02-2022 End: 12-02-2022 Emergency department patient visit [facility] Arabella Kim [facility] Start: 11-29-2022 End: 11-30-2022 ambulatory [facility] A M[facility] Facility:[facility] Start: 11-29-2022 End: 11-29-2022 Pain Management Pawan Laureano [facility] Start: 11-19-2022 End: 11-20-2022 ambulatory Mt A AMBERLYLE Facility:[facility] Start: 11-19-2022 End: 11-19-2022 Patient encounter procedure [facility] Start: 11-14-2022 End: 11-14-2022 ambulatory JUMA MONK Facility:[facility] Start: 11-14-2022 End: 11-14-2022 Office outpatient new 45 minutes Juma Monk MD Work Phone: Rheumatology Comment on above: Chronic right-sided low back pain with right-sided sciatica (Primary Dx) Start: 11-08-2022 End: 11-09-2022 ambulatory tM GOODEN Facility:[facility] Start: 11-08-2022 End: 11-08-2022 Patient encounter procedure [facility] Start: 10-24-2022 End: 10-25-2022 ambulatory Pawan Zumbar Facility:[facility] Start: 10-24-2022 End: 10-24-2022 Pain Management Pawan Zumbar [facility] Start: 09-27-2022 End: 09-28-2022 ambulatory [facility] A MAMTA Facility:[facility] Start: 09-27-2022 End: 09-27-2022 Pain Management Pawan Zumbar [facility] Start: 09-18-2022 End: 09-19-2022 ambulatory Mt [facility] Facility:[facility] Start: 09-18-2022 End: 09-18-2022 Patient encounter procedure Mt A MAMTA [facility] Start: 09-14-2022 End: 09-15-2022 ambulatory Thao Duncan Facility:[facility] Start: 09-14-2022 End: 09-14-2022 Patient encounter procedure Thao Duncan [facility] Start: 09-10-2022 End: 09-11-2022 ambulatory Pawan Zjason Facility:[facility] Start: 09-10-2022 End: 09-10-2022 Patient encounter procedure Pawan Zumbar [facility] Start: 09-04-2022 ambulatory Thao Duncan Facili ty:[facility] Start: 08-28-2022 End: 08-29-2022 ambulatory Mt Yisel MAMTA Facility:[facility] Start: 08-28-2022 End: 08-28-2022 Patient encounter procedure Mt Yisel [facility]TA [facility] Start: 08-28-2022 End: 08-28-2022 Well adult monitoring check done [place] [facility] Start: 08-23-2022 End: 08-24-2022 ambulatory Thao Duncan Facility:[facility] Start: 08-23-2022 End: 08-23-2022 Pain Management Pawan Laureano [facility] Start: 08-23-2022 End: 08-24-2022 ambulatory [place] MAMTA Facility:[facility] Start: 08-23-2022 End: 08-23-2022 Patient encounter procedure [place] GOODEN [facility] Start: 08-01-2022 End: 08-02-2022 ambulatory Thao Duncan Facility:[facility] Start: 08-01-2022 End: 08-01-2022 Patient encounter procedure Thao Duncan [facility] Start: 06-22-2022 End: 06-22-2022 Patient encounter procedure Thao Duncan [facility] Start: 06-08-2022 End: 06-08-2022 ambulatory KATRINA URENA Facility:[facility] Start: 06-08-2022 End: 06-08-2022 Subsequent hospital visit by physician Katrina Urena MD Work Phone: Gastroenterology Comment on above: 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] Start: 04-26-2022 Telephone encounter Marguerite Potts 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 Comment on above: Appointment Confirma tion Start: 04-09-2022 End: 04-10-2022 ambulatory KATRINA URENA Facility:[facility] Start: 04-09-2022 End: 04-10-2022 ambulatory KATRINA URENA Facility:[facility] Start: 04-09-2022 End: 04-09-2022 Patient encounter procedure Katrina Urena MD Work Phone: Gastroenterology Comment on above: Mccarty's esophagus with dysplasia (Primary Dx) Start: 02-22-2022 End: 02-22-2022 Patient encounter procedure Gonzales ROBBINS [facility] Start: 02-20-2022 End: 02-20-2022 Patient encounter procedure [place] GOOD[place] [facility] Start: 12-14-2021 End: 12-14-2021 Patient encounter procedure [place] GOODEN [facility] Start: 03-18-2021 End: 12-06-2021 Recurring [place] GOODEN [facility] Procedures Date Procedure Procedure Detail Performing Clinician Start: 12-05-2022 Radiologic examination sacroiliac jnts <3 views Juma Monk MD Work Phone: Start: 10-24-2022 Epidural injection of lumbar spine using fluoroscopic guidance Pawan Laureano Comment on above: L5/S1 NOEMI-100% relief of pain in sacroi liac , but states pain above still. 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 Work Phone: Start: 06-08-2022 Esophagogastroduodenoscopy transoral diagnostic Katrina Urena MD Work Phone: Start: 06-08-2022 Gluc bld gluc mntr dev cleared fda spec home use Sky Howe APRN.CRNA Work Phone: Start: 03-15-2022 Esophagogastroduodenoscopy gastric outlet reduction Thao Duncan Start: 08-12-2018 Esophagogastroduodenoscopy Gonzales ROSENDO Start: 12-27-2016 Myringotomy and insertion of tympanic ventilation tube [facility] Start: 01-19-2015 right knee arthroscopy with partial medial and lateral meniscectomy, chondroplasty medial compartment [facility] Colonoscopy Gonzales DIAZL rotator cuff left shoulder 1 [facility] Comment on above: 2001 rotator cuff left shoulder 2 Pawan Larsonzaralaverne Comment on above: 2001 Skin (tissue) specimen (specimen) Thao Duncan Sphincterotomy anal division sphincter spx [facility] Plan of Treatment Date Care Activity Detail Author Start: 04-09-2025 DIABETES SCREEN DIABETES SCREEN [facility] Start: 09-05-2023 ambulatory [facility] Start: 08-26-2023 ambulatory Facility:N [facility] Start: 04-12-2023 Influenza vaccination INFLUENZA (#1) [facility] Start: 12-17-2022 End: 02-16-2023 C reactive protein [Mass/volume] in Serum or Plasma C-REACTIVE PROTEIN (CRP) Lab Routine Sacrococcygeal disorders, not elsewhere classified Expected: 12/17/2022, Expires: 02/16/2023 [facility] Work Phone: Comment on above: Expected: 12/17/2022 , Expires: 02/16/2023 Start: 12-17-2022 End: 02-16-2023 Erythrocyte sedimentation rate SED RATE WESTERGREN Lab Routine Sacrococcygeal disorders, not elsewhere classified Expected: 12/17/2022, Expires: 02/16/2023 [facility] Work Phone: Comment on above: Expected: 12/17/2022 , Expires: 02/16/2023 Start: 09-13-2022 COVID-19 VACCINE (5 - Moderna series) COVID-19 VACCINE (5 - Moderna series) [facility] Start: 08-12-2022 ADVANCE DIRECTIVE DISCUSSION ADVANCE DIRECTIVE DISCUSSION [facility] Start: 08-12-2022 DEPRESSION ASSESSMENT DEPRESSION ASS ESSMENT [facility] Start: 04-12-2022 Influenza vaccination INFLUENZA (#1) [facility] Start: 04-09-2022 End: 06-09-2022 Comprehensive metabolic 2000 panel - Serum or Plasma [facility] Work Phone: Comment on above: Expected: 04/09/2022 , Expires: 06/09/2022 Start: 10-12-2021 COVID-19 VACCINE (4 - Booster for Moderna series) COVID-19 VACCINE (4 - Booster for Moderna series) [facility] Start: 08-12-2021 ADVANCE DIRECTIVE DISCUSSION ADVANCE DIRECTIVE DISCUSSION [facility] Start: 08-12-2021 DEPRESSION ASSESSMENT DEPRESSION ASS ESSMENT [facility] Start: 01-27-2013 PNEUMOCOCCAL: 65+ (1 - PCV) PNEUMOCOCCAL: 65+ (1 - PCV) [facility] Start: 01-27-1998 SHINGRIX VACCINE (1 of 2) SHINGRIX VACCINE (1 of 2) [facility] Start: 01-27-1993 COLOGUARD (FIT-DNA) COLOGUARD (FIT-D NA) [facility] Start: 01-27-1993 Colonoscopy COLONOSCOPY [facility] Start: 01-27-1993 COLORECTAL CANCER SCREENING COLORECTAL CANCER SCREENING [facility] Start: 01-27-[address] COLONOGRAPHY [facility] Start: 01-27-1993 DIABETES SCREEN DIABETES SCREEN [facility] Start: 01-27-1993 FECAL OCCULT BLOOD FECAL OCCULT BLOO D [facility] Start: 01-27-1993 SIGMOIDOSCOPY SIGMOIDOSCOPY [facility] Start: 01-27-1983 LIPID SCREEN LIPID SCREEN [facility] Start: 01-27-1967 Urine microalbumin profile DTAP,TDAP,TD (1 - Tdap) [facility] Start: 01-27-1966 ANNUAL PCP TEAM CLEANING TEAM MEMBER CRISTO DISEASE VISIT ANNUAL PCP TEAM CHRONIC DISEASE VISIT [facility] Start: 01-27-1966 Hepatitis B surface antibody level LDL CHOLESTEROL [facility] Start: 01-27-1966 HEPATITIS C SCREENING HEPATITIS C SC SHEILA [facility] Start: 1960 Adult depression screening assessment DEPRESSION SCREENING [facility] Start: 01-27-1958 3 comp foot exam completed DIABETIC FOOT EXAM [facility] Start: 01-27-1958 Hepatitis B screening URINE AL BUMIN:CREATININE RATIO [facility] Start: 01-27-1958 Hepatitis C antibody , confirmatory test DILATED RETINAL EXAM [facility] Start: 01-27-1954 PNEUMOCOCCAL: 65+ (1 - PCV) PNEUMOCOCCAL: 65+ (1 - PCV) [facility] Start: 01-27-1953 Hemoglobin A1c/Hemoglobin.total in Blood HBA1C [facility] End: 04-09-2023 EGD DIAGNOSTIC EGD DIAGNOSTIC Endoscopy Routine Mccarty's esophagus with dysplasia 1 Occurrences starting 04/09/2022 until 04/09/2023 [facility] Work Phone: Comment on above: 1 Occurrences starti ng 04/09/2022 until 04/09/2023 End: 01-16-2024 Mri pelvis w/o contrast material MRI SACRUM/COCCYX WO IVCON Radiology Routine Sacrococcygeal disorders, not elsewhere classified 1 Occurrences starting 12/17/2022 until 01/16/2024 [facility] Work Phone: Comment on above: 1 Occurrences starti ng 12/17/2022 until 01/16/2024 End: 01-05-2024 Radiologic examination sacroiliac jnts <3 views XR SACROILIAC JOINTS 2V AP PELVIS/FERGUESON Radiology Routine Bilateral low back pain with sciatica, sciatica laterality unspecified, unspecified chronicity 1 Occurrences starting 12/05/2022 until 01/05/2024 [facility] Work Phone: Comment on above: 1 Occurrences starti ng 12/05/2022 until 01/05/2024 Radiologic examinati on sacroiliac jnts <3 views XR SACROILIAC JOINTS 2V AP PELVIS/FERGUESON Radiology Routine Bilateral low back pain with sciatica, sciatica laterality unspecified, unspecified chronicity 12/05/2022 1:53 PM EDT [facility] Work Phone: SURGICAL PATHOLOGY [facility] Work Phone: Comment on above: Release Upon Orderin g for 1 Occurrences starting 06/08/2022, 1 completed [facility] Immunizations Immunization Date Immunization Notes Care Provider Hyun rico 06-29-2023 canakinumab d Carolyn [facility] Comment on above: Result Comment: RSV Vaccine given per [facility] 05-16-2023 influenza virus vacc ine, unspecified formulation [place] [facility] 05-16-2023 SARS-CoV-2 (COVID-19 ) mRNA-1273 vaccine [place] GOOD[place] [facility] Comment on above: Result Comment: give n per [facility] 05-13-2022 influenza virus vacc ine, unspecified formulation [facility] 05-13-2022 SARS-CoV-2 (COVID-19 ) mRNA-1273 vaccine [facility] 06-14-2021 COVID-19, mRNA, LNP- S, PF, 100 mcg or 50 mcg dose; Translations: [SARS-CoV-2 (COVID-19) mRNA-1273 vaccine] Mt GOODEN [facility] 05-19-2021 influenza virus vacc ine, unspecified formulation Mt GOODEN [facility] 01-09-2021 tetanus toxoid, redu hermilo diphtheria toxoid, and acellular pertussis vaccine, adsorbed; Translations: [Adacel (Tdap)] Mt GOODEN [facility] 10-19-2020 COVID-19, mRNA, LNP- S, PF, 100 mcg or 50 mcg dose; Translations: [Moderna COVID-19 Vaccine] [facility] GOODEN [facility] Comment on above: Reason for Medicatio n: Other (see comment) 09-21-2020 COVID-19, mRNA, LNP- S, PF, 100 mcg or 50 mcg dose; Translations: [Moderna COVID-19 Vaccine] tM GOODEN [facility] Comment on above: Reason for Medicatio n: Other (see comment) 05-17-2020 influenza virus vacc ine, unspecified formulation Mt GOODEN [facility] 06-11-2019 influenza virus vacc ine, live, attenuated, for intranasal use Mt GOODEN [facility] Comment on above: Result Comment: done at [facility] in [place] 06-01-2019 influenza virus vacc ine, unspecified formulation Mt GOODEN [facility] 05-29-2019 influenza virus vacc ine, unspecified formulation [place] GOODEN [facility] 07-22-2018 pneumococcal polysaccharide vaccine, 23 valent [facility] GOODEN [facility] 07-22-2017 pneumococcal conjuga te vaccine, 13 valent [facility] GOOD[facility] 05-15-2016 influenza virus vacc ine, unspecified formulation Mt GOODEN [facility] 06-23-2014 tetanus toxoid, redu hermilo diphtheria toxoid, and acellular pertussis vaccine, adsorbed Mt GOODEN [facility] Payers Date Payer Category Payer Self-pay 2015 Medicare [id number] 2015 Private Health Insurance [employer] A ETNA MEDICARE SUPPLEMENT [id number] 2015-Present [phone] [address] [address] [place] [address] Indemnity [id number] 2013 Medicare MEDICARE MEDICAR E A AND B [id number] 2013-Present [phone] [address] [address] [place] [address] Medicare [id number] 2013 Medicare [id number] 1948 Unknown [id number] 2.16.840.1.308595.3.579 .2.72 1948 Unknown [id number] 2.16.840.1.572008.3.579 .2.72 1948 Unknown [id number] 2.16.840.1.357595.3.579 .2. 1948 Unknown [id number] 2.16.840.1.328973.3.579 .2.72 1948 Unknown [id number] 2.16.840.1.646775.3.579 .2. 1948 Unknown [id number] 2.16.840.1.114381.3.579 .2. 1948 Unknown [id number] 2.16.840.1.978449.3.579 .2.72 1948 Unknown [id number] 2.16.840.1.035934.3.579 .2.72 1948 Unknown [id number] 2.16.840.1.422755.3.579 .2.72 1948 Unknown [id number] 2.16.840.1.057678.3.579 .2.72 1948 Unknown [id number] 2.16.840.1.851754.3.579 .2.72 1948 Unknown [id number] 2.16.840.1.905851.3.579 .2.72 1948 Unknown [id number] 2.16.840.1.325328.3.579 .2. 1948 Unknown [id number] 2.16.840.1.678494.3.579 .2. 1948 Unknown [id number] 2.16.840.1.880026.3.579 .2. 1948 Unknown [id number] 2.16.840.1.664314.3.579 .2 1948 Unknown [id number] 2.16.840.1.441720.3.579 .2 1948 Unknown [id number] 2.16.840.1.699131.3.579 .2 1948 Unknown [id number] 2.16.840.1.347099.3.579 .2. 1948 Unknown [id number] 2.16.840.1.259074.3.579 .2 1948 Unknown [id number] 2.16.840.1.947013.3.579 .2 1948 Unknown [id number] 2.16.840.1.947011.3.579 .2 1948 Unknown [id number] 2.16.840.1.065927.3.579 .2. 1948 Unknown [id number] 2.16.840.1.217140.3.579 .2 1948 Unknown [id number] 2.16.840.1.622395.3.579 .2. 1948 Unknown [id number] 2.16.840.1.965384.3.579 .2 1948 Unknown [id number] 2.16.840.1.830983.3.579 .2.727 1948 Unknown [id number] 2.16.840.1.000708.3.579 .2.72 1948 Unknown [id number] 2.16.840.1.677857.3.579 .2.72 1948 Unknown [id number] 2.16.840.1.031244.3.579 .2.72 1948 Unknown [id number] 2.16.840.1.570377.3.579 .2.72 1948 Unknown [id number] 2.16.840.1.891748.3.579 .2.72 1948 Unknown [id number] 2.16.840.1.287868.3.579 .2.72 1948 Unknown [id number] 2.16.840.1.512129.3.579 .2.72 1948 Unknown [id number] 2.16.840.1.198436.3.579 .2.72 1948 Unknown [id number] 2.16.840.1.353891.3.579 .2.72 1948 Unknown [id number] 2.16.840.1.769792.3.579 .2.72 1948 Unknown [id number] 2.16.840.1.865251.3.579 .2. Unknown [id number] 2.16.840.1.029807.3.579 .2.531 Social History Date Type Detail Facility Start: 09-18-2021 End: 08-26-2023 Tobacco smoking status Never smoked tobacco (finding) [facility] Comment on above: denies denies use Tobacco smoking status Never [facility] Comment on above: denies denies use Start: 09-09-2022 End: 12-05-2022 Sex Assigned At Male [facility] Tobacco smoking status NHIS Tobacco smoking consumption unknown [facility] Start: 1950 Sex Assigned At Not on file [facility] Start: 03-30-2022 End: 04-10-2022 Exposure to SARS-CoV-2 (event) Not sure [facility] Work Phone: Start: 06-08-2022 Tobacco use and exposure Smokeless tobacco non-user [facility] Start: 06-08-2022 End: 12-05-2022 Alcohol intake Current drinker of alcohol (finding) [facility] Start: 06-08-2022 Alcohol Comment occasional [facility] Tobacco [facility] Comment on above: Denies Tobacco smoking status No Smoking Status Entered [facility] Start: 09-09-2022 End: 12-05-2022 History of Social function [facility] Functional Status Date Assessment Result Facility 08-26-2023 Functional Status N/A [facility] 07-17-2023 Functional Status No [facility] 06-26-2023 Functional Status No [facility] 06-03-2023 Functional Status N/A [facility] 03-13-2023 Functional Status N/A [facility] 02-18-2023 Functional Status No [facility] 02-18-2023 Functional Status N/A [facility] 12-10-2022 Functional Status N/A [facility] 12-02-2022 Functional Status N/A [facility] 11-29-2022 Functional Status N/A [facility] 11-08-2022 Functional Status N/A [facility] 09-27-2022 Functional Status N/A [facility] 09-14-2022 Functional Status N/A [facility] 08-28-2022 Functional Status N/A [facility] 08-23-2022 Functional Status N/A [facility] 08-23-2022 Functional Status N/A [facility] 08-01-2022 Functional Status N/A [facility] 06-22-2022 Functional Status N/A [facility] 02-22-2022 Functional Status N/A [facility] [place] 02-20-2022 Functional Status N/A [facility] Clinical Notes 02-20-2022 to [...] use night-lights. Place frequently used items in dhhc-nu-sphtu places. Lower the shelves around your home [...] of the way. Do not use floor urdu or wax that makes floors slippery. If [...] include working with a physical therapist or quality control technician to improve your strength, balance, and endurance. Where to find more information Centers for Disease Control and PreventionGUZMAN: www.cdc.gov National [place] on Aging: www.vamsi.nih.gov Contact a health care [...] provider. Document Revised: 04/30/2022 Document Reviewed: 03/01/2021 [employer] Patient Education 2022 [employer]. 08/26/2023 10:25:59 Hypertension, Adult Hypertension, Adult High [...] follow-up visits. This is important. Medicines Take ckti-scx-nyaunck and prescription medicines only as told by [...] provider. Document Revised: 06/05/2022 Document Reviewed: 06/05/2022 [employer] Patient Education 2022 [employer]. 08/26/2023 10:25:58 Diabetes Mellitus and Exercise Diabetes [...] plan? Your health care provider or certified addiction counselor can help you make a plan [...] (heat stroke). Where to find more information [place] Diabetes Association: www.diabetes.org Summary Exercising regularly is important for overall health, especially for people who have diabetes mellitus. Exercising has many health benefits. It increases muscle strength and bone density and reduces body fat and stress. It also lowers and controls blood glucose. Your health care provider or certified addiction counselor can help you make an activity plan [...] provider. Document Revised: 04/25/2020 Document Reviewed: 04/25/2020 [employer] Patient Education 2022 [employer]. 08/26/2023 10:25:57 DASH Eating Plan DASH Eating [...] Dairy Whole or 2% milk, cream, and rjvm-yly-ijoe. Whole or full-fat cream cheese. Whole-fat or [...] more information National Heart, Lung, and Blood [place]: www.nhlbi.nih.gov [place] Heart Association: www.heart.org Academy of Nutrition and [...] provider. Document Revised: 07/01/2020 Document Reviewed: 07/01/2020 [employer] Patient Education 2022 [employer]. 08/26/2023 10:25:56 BMI for Adults BMI for [...] numbers. This can be done either in [place] (U.S[place] or metric measurements. Note that charts and online BMI calculators are available to help you find your BMI quickly and easily without having to do these calculations yourself. To calculate your BMI in [place] ([place].S[place] measurements: 1.Measure your weight in pounds [...] Centers for Disease Control and Prevention: www.cdc.gov [place] Heart Association: www.heart.org National Heart, Lung, and Blood [place]: www.nhlbi.nih.gov Summary Body mass index (BMI) is a number that is calculated from a person's weight and height. BMI may help estimate how much of a person's weight is composed of fat. BMI can help identify those who may be at higher risk for certain medical problems. BMI can be measured using Belgian measurements or metric measurements. BMI charts are used to identify whether you are underweight, normal weight, overweight, or obese. This information is not intended to replace advice given to you by your health care provider. Make sure you discuss any questions you have with your health care provider. Document Revised: 04/20/2020 Document Reviewed: 02/26/2020 [employer] Patient Education 2022 [employer]. [facility] 06-03-2023 Hospital Discharg e instructions [...] drinks. ?Tomatoes and foods made with tomatoes. ?[place] or spicy foods. ?Chocolate and peppermint. Do not drink alcohol. General instructions Take fhgk-kli-fcycunr and prescription medicines only as told by [...] provider. Document Revised: 10/15/2020 Document Reviewed: 10/15/2020 [employer] Patient Education 2022 [employer]. 06/03/2023 14:30:19 Edema, Chca-sl-Qmxm Edema Edema is when you have too [...] Follow these instructions at home: Medicines Take rijb-aqr-zaftldi and prescription medicines only as told by [...] provider. Document Revised: 04/02/2022 Document Reviewed: 04/02/2022 [employer] Patient Education 2022 [employer]. Follow Up Care 03/01/2023 14:08:40 With:MAMTA LEE FAAFP, [place], BEATRIZ, PED Address: [address] [place] [address]- When:Within 3 Month(s) [facility] 04-09-2023 Hospital Discharg e instructions Follow Up Care 04/09/2023 10:50:51 With:Azra Leon Address: [facility] [address] [place] [address]- [phone] Business (1) When: Unknown Comments:Continue Eliquis 5 mg twice daily long-term due to multiple comorbidities and history of 2 separate events of pulmonary emboli one of them is unprovoked.Follow CBCD, CMp and D dimer every 6 months. THis can be done and monitored by his PCP Dr Soriano as per patient wishes.RTC with us only as needed. [facility] 03-13-2023 Evaluation + Plan note Extrac jaun from: Title:ED Note Author:Jordan Dean DO Date :03/13/23 Cellulitis (L03.90: Cellulit is, unspecified) Orders: cephalexin, 500 mg = 1 cap(s), Cap, Oral, Once, Stop date 03/13/23 4:15:00 EDT, STAT, Start date 03/13/23 4:15:00 EDT, 03/13/23 4:15:00 EDT cephalexin, 500 mg = 1 cap(s), Oral, q6hr, X 7 day(s), # 28 cap(s), Refills(s) 0, Pharmacy: [facility]/pharmacy #[id number], 185.4, cm, 03/13/23 2:24:00 EDT, [...] 09:45:00 AM Scheduled Provider: Location:.Sleep Clinic Appointment Type:AIR SAMPLING AND MONITORING Sleep Study Clinic Follow Up (FT) Appointment Date:04/09/2023 10:00:00 AM Scheduled Provider: Location:.ONCOLOGY Appointment Type:ONC Office Visit 30 (FT) Appointment Date:06/03/2023 01:20:00 PM Scheduled Provider:Mt GOODEN DO, FAAFP Location:[facility] Appointment Type:FM Open Appointment Date:08/26/2023 11:00:00 AM Scheduled Provider: Location:[facility] Appointment Type: Medicare Wellness Subsequent Diagnostic [...] Function Panel 09/10/22 * Lipid Panel 09/10/22 [facility]08-02-2023 Hospital Discharge instructions Patient Education 03/13/2023 04:42:12 [...] Follow these instructions at home: Medicines Take jlcx-bmy-rplqrzg and prescription medicines only as told by [...] such as antibiotic medicines or antihistamines. Take cbui-idl-azgxhhy and prescription medicines only as told by [...] provider. Document Revised: 05/10/2022 Document Reviewed: 05/10/2022 [employer] Patient Education 2022 [employer]. Follow Up Care 03/13/2023 02:16:08 With:Mt GOODEN Address: [address] [facility] [[email or web address] [place] [address]- Business (1) When:Within 3 Day(s) [facility]07-31-2023 Hospital Discharge instructions Follow Up Care 03/11/2023 11:30:23 With:Azra Leon Address: [address] [address] [phone] Business (1) When: Unknown Comments:Continue Eliguis 5 mg twice daily usp.Antithrombin III and D dimer today.D dimer and CBCD, CMP in 3 months.RTC in 3 months. [facility]07-19-2023 Hospital Discharge instructions Follow Up Care 02/27/2023 09:23:46 With:Azra Leon Address: [address] [place] [phone] Business (1) When: Unknown Comments:Thrombophilia panel labs today.Continue Eliquis 5 mg twice daily long- term as long as there is no major bleeding events.Return in 1 month with CBC differential and CMP. [facility]07-18-2023 Hospital Discharge instructions Follow Up Care 02/26/2023 10:50:00 With:Chidi ESPINAL, [place], PUL, JERILYN Address: [address] [facility] [place] [address]- When: Unknown Comments:after his testing is completed [facility]07-11-2023 Hospital Discharge instructions Patient Education 02/19/2023 15:40:03 [...] Follow these instructions at home: Medicines Take qdnx-xuf-anlyfsl and prescription medicines only as told by [...] is important. Where to find more information [place] [employer] Association: www.lung.org Centers for Disease Control [...] right away. Call your local emergency services (971 in the U.S.). Do not drive yourself [...] or DVT, call your local emergency services (461 in the [place] This information is not intended to replace advice given to you by your health care provider. Make sure you discuss any questions you have with your health care provider. Document Revised: 06/30/2021 Document Reviewed: 06/30/2021 Outitude Patient Education 2022 [employer] Follow Up Care 02/18/2023 08:49:44 With:Paramedicine Address:Unknown When: Unknown Comments:Paramedicine will contact you to set up a home visit. Thank you. With:Ralph Jennings Address: [address] [place] [address]- Business (1) When: Unknown Comments:Chronic Venous InsufPlease call Kike at Dr. Jennings's office in [place] to make a follow up appointment. The phone number is [phone]. Thank you. With:Matty Murillo Address: [address] [facility] [place] [address]- Business (1) When: Unknown Comments:needs PFTs and sleep studyThe central scheduling department at [facility] will need to schedule the PFT's. Please contact Dr. Murillo's offic eto set up a time for your sleep study. Thank you. With:Mitch Amaro Address: [facility] [address] [place] [address]- When: Unknown Comments:2nd DVTDr. Amaro office will contact you to set up an appointment. If you do not hear from themin 3 days, then call [phone] and asked for Oncology/ Hematology department. Thank you. With:Mt GOODEN Address: [address] [facility] [address], [place] [address] Business (1) When:03/01/2023 13:00:00 Comments:Your follow up appointment is with Dr. Lobo. Thank you. [facility]07-11-2023 NoteFishGreater Baltimore Medical CenterComment on above:Result Comment: Electronically Signed By: Kate Eaton MD\.br\Date and Time Signed: 02/19/23 13:17 [id number] Evaluation + Plan noteExtracted from: Title:Discharge Note Author:Kate Eaton MD ate:7/11/23 Stable Discharged to - Home with family care Prescriptions aspirin 81 mg Chew Tab, 81 mg= 1 tab(s), Oral, Daily, 3 refills Eliquis 5 mg oral tablet, 2 tabs (10 mg) BID x 7 days then 1 tab bid, Oral, BID famotidine 40 mg Tab, 40 mg= 1 tab(s), Oral, Once a day (at bedtime), 3 refills Flonase 0.05 mg/inh George, 2 spray(s), Nasal, Daily, 11 refills, Not [...] With When Contact Information Ralph Jennings [address] [place] [address]- Business (1) Additional Instructions: Chronic Venous Insuf Basem Murillo [address] [facility] [place] [address]- Business (1) Additional Instructions: needs PFTs and sleep study Mitch Amaro [facility] [address] [place] [address]- Additional Instructions: 2nd DVT Mt GOODEN In [address] [place] [address]- Business (1) Additional Instructions: Addendum by Angelito ESPINAL, Ahm ad on February 19, 2023 13:16:49 EDT [...] from: Title:Admission H & P [facility]AL[facility]18[facility]23 73-year-old male with a medi deidra [...] Date:03/01/2023 01:00:00 PM Scheduled Provider:Kevin LOBO MD Location:[facility] Appointment Type: Hospital Follow Up w/TCM Appointment Date:08/26/2023 11:00:00 AM Scheduled Provider: Location:[facility] Appointment Type: Medicare Wellness Subsequent Future [...] Lipid Panel 02/20/22 * Lipid Panel 09/10/22 [facility]07-10-2023 [facility]:Result Comment: Electronically Signed By: Angelito ESPINAL, Kate\.br\Date and Time Signed: 02/18/23 13:49 [id number] Hospital Discharge instructions Patient Education 02/18/2023 08:47:22 [...] provider. Document Revised: 03/13/2021 Document Reviewed: 03/13/2021 Outitude Patient Education 2022 [employer]. 02/18/2023 08:47:20 Heart Failure Exacerbation Heart Failure [...] Follow these instructions at home: Medicines Take eqvl-tnz-zifzjdr and prescription medicines only as told by your health care provider. Do not stop taking your medicines or change the amount you take. If you are having problems or sideeffects from your medicines, talk to your health care provider. If you are having difficulty paying for your medicines, contact a public health social worker or your clinic. There are [...] provider. Document Revised: 02/18/2021 Document Reviewed: 02/18/2021 Outitude Patient Education 2022 [employer]. Follow Up Care 08/23/2022 08:23:28 With:MAMTA LEE FAAFP, BEATRIZ Rebolledo, PED Address: [address] [place], [place] [id number] When:Within 1 Month(s) [facility] 06-16-2023 NoteHNO ID: [id number] Author: RT Katty(R) Service: ? Author Type: [...] BY: RT Katty(R) January 25, 2023 8:35 [facility]05-08-2023 Miscellaneous Notes* Telephone Encounter - Juma [...] after the test results. documented in this encounterCh[facility]23 Hospital Discharge instructions Patient Education 12/10/2022 10:35:03 Edema, Lbbi-ua-Aeol Edema Edema is when you have too [...] Follow these instructions at home: Medicines Take ijcp-fof-sokdycn and prescription medicines only as told by [...] provider. Document Revised: 04/02/2022 Document Reviewed: 04/02/2022 Outitude Patient Education 2022 [employer]. Follow Up Care 11/26/2022 09:27:23 With:MAMTA LEE FAAFP, [place], BEATRIZ, PED [facility] [place] [address]- When:Within 2 Month(s) [facility] 04-26-2023 NoteHNO ID: [id number] Author: RT Indu(R) Service: ? Author Type: [...] BY: RT Indu(R) December 05, 2022 1:51 [facility]04-26-2023 NoteHNO ID: [id number] Author: Juma Monk MD Service: ? Author Type: Physician Type: Progress Notes Filed: 12/05/2022 1:29 PM Note Text: Rheumatology Outpatient Clinic Date of Service: 12/05/2022 Patient: Jas Gonzalez Medical Record: [id number] Primary Care Physician: No primary care provider [...] 81 mg chewable tablet (more content not included)...[facility]04-26-2023 History of Present illness Narrative* Juma Monk MD - 12/05/2022 1:00 PM EDT Images from the original note were not included. Rheumatology Outpatient Clinic Date of Service: 12/05/2022 Patient: Jas Gonzalez Medical Record: [id number] Primary Care Physician: No primary care provider [...] Full ROM in flexion and extension. Full radio rigger strength. No swelling or synovitis along the [...] which included preparing to see the patient, lvzi-xz-onnb patient care, completing clinical documentation, obtaining and/or reviewing separately obtained history, performing a medically appropriate examination, and counseling and educating the patient/family/caregiver. Juma Monk MD, [facility] Rheumatology documented in this encounterChillicothe [facility]04-25-2023 Miscellaneous Notes* Telephone Encounter - Angie Lara MA - 12/04/2022 12:44 PM EDT Received outside records for patient. Placed in scanned documents. Angie Lara MA documented in this encounterChillicothe [facility]04-23-2023 Hospital Discharge instructions Patient Education [...] Follow these instructions at home: Medicines Take ofyj-hvp-oyhdzmt and prescription medicines only as told by [...] such as antibiotic medicines or antihistamines. Take zrxg-yqc-icuczlj and prescription medicines only as told by [...] provider. Document Revised: 05/10/2022 Document Reviewed: 05/10/2022 Outitude Patient Education 2022 [employer]. 12/02/2022 15:14:40 Gastrointestinal Bleeding Gastrointestinal Bleeding Gastrointestinal [...] home. Follow these instructions at home: Take syoz-qsg-bjldkjv and prescription medicines only as told by [...] on the cause of the bleeding. Take ckag-xgr-wnpwzaq and prescription medicines only as told by [...] provider. Document Revised: 03/02/2022 Document Reviewed: 03/02/2022 Outitude Patient Education 2022 [employer]. Follow Up Care 12/02/2022 12:04:07 With:Joycelyn CHERRY Address: [address] [place] [address] Business (1) When:12/05/2022 15:14:25 Comments:Follow-up for 2 episodes of bright red blood per rectum With:Mt GOODEN Address: [address] [facility] [address], [place] [address] Business (1) When:12/05/2022 15:14:09 Comments:Follow-up for evaluation [...] ifyou develop any new or worsening symptoms. [facility]04-23-2023 Evaluation + Plan noteExtracted from: Title:ED Note Author:Tabby LOPEZ, Severo Merchant Axel e:12/02/22 Blood per rectum (K62.5: Hem orrhage of anus and rectum) Cellulitis (L03.90: Cellulitis, unspecified) Wound of buttock (S31.809A: Unspecified open wound of unspecified buttock, initial encounter) Orders: cephalexin, 500 mg = 1 cap(s), Oral, q8hr, # 30 cap(s), Refills(s) 0, Pharmacy: [facility]/pharmacy #[id number], 182, cm, 12/02/22 12:12:00 EDT, Height/Length Dosing, 150, kg, 12/02/22 12:12:00 EDT, Weight Dosing ABO/Rh ABO/Rh History Check Antibody Screen Automated Diff Basic Metabolic Panel Blood Bank ID# CBC w/ Auto Diff ECG 12 Lead Adult eGFR Hepatic Function Panel PT & PTT Stool Occult Blood Future Appointments Appointment Date:12/10/2022 10:00:00 AM Scheduled Provider:Mt GOODEN DO, FAAFP Location:[facility] Appointment Type: Open Appointment Date:02/18/2023 08:00:00 AM Scheduled Provider:Mt GOODEN DO, FAAFP Location:[facility] Appointment Type: Open Appointment Date:08/26/2023 11:00:00 AM Scheduled Provider: Location:[facility] Appointment Type:FM Medicare Wellness Subsequent Future [...] Lipid Panel 02/20/22 * Lipid Panel 09/10/22 [facility]04-20-2023 Evaluation + Plan noteExtracted from: Title:Clinical Document [...] 10:00:00 AM Scheduled Provider:Mt GOODEN DO, FAAFP Location:[facility] Appointment Type: Open Appointment Date:02/18/2023 08:00:00 AM Scheduled Provider:Mt GOODEN DO, FAAFP Location:[facility] Appointment Type: Open Appointment Date:08/26/2023 11:00:00 AM Scheduled Provider: Location:[facility] Appointment Type:FM Medicare Wellness Subsequent Future [...] Lipid Panel 02/20/22 * Lipid Panel 09/10/22 [facility]04-05-2023 NoteHNO ID: [id number] Author: Juma Monk MD Service: ? Author Type: Physician Type: Progress Notes Filed: 11/16/2022 9:45 AM Note Text: Rheumatology Outpatient Clinic Date of Service: 11/14/2022 Patient: Jas Gonzalez Medical Record: [id number] Primary Care Physician: No primary care provider [...] 54 U/L 33 ALKAL (more content not included)...[facility]04-05-2023 History of Present illness Narrative* Juma Monk MD - 11/14/2022 1:30 PM EDT Images from the original note were not included. Rheumatology Outpatient Clinic Date of Service: 11/14/2022 Patient: Jas Gonzalez Medical Record: [id number] Primary Care Physician: No primary care provider [...] Full ROM in flexion and extension. Full radio rigger strength. No swelling or synovitis along the [...] which included preparing to see the patient, egll-qo-wezl patient care, completing clinical documentation, obtaining and/or reviewing separately obtained history, performing a medically appropriate examination, and counseling and educating the patient/family/caregiver. Juma Monk MD, [facility] Rheumatology documented in this encounterChillicothe [facility] Center03-30-2023 Hospital Discharge instructions Patient Education [...] plan? Your health care provider or certified addiction counselor can help you make a plan [...] stress. Your health care provider or certified addiction counselor can help you make a plan [...] 10/18/2004 Document Revised: 02/20/2018 Document Reviewed: 01/07/2017 Outitude Patient Education 2020 [employer]. Follow Up Care 10/19/2022 13:04:21 With:Mt GOODEN DO, FAAFP, FAM, PED [facility] [address] [facility] [place] [address]- When:Within 3 Month(s) [facility] 03-15-2023 Note [id number]:127[facility] 09-10-2022 Hospital Discharge instructions Follow Up Care 09/10/2022 07:55:41 With:Thao Duncan DO, FAM, PED Address: [address] [place] [address] When:1 month only if needed Comments:40 mins [facility] 01-17-2023 Hospital Discharge instructions Patient [...] you work with a diet and nutrition associate (dietitian) tomake a meal plan that is [...] care provider. Work with a counselor or software tester to identify strategies to manage stress and any emotional and social challenges. Questions to ask a health care provider Do I need to meet with a software tester? Do I need to meet with a dietitian? What number can I call if I have questions? When are the best times to check my blood glucose? Where to find more information: [place] Diabetes Association: diabetes.org Academy of Nutrition and Dietetics: www.eatright.org National [place] of Diabetes and Digestive and Kidney Diseases (NIH): www.niddk.nih.gov Summary A healthy meal plan will help you control your blood glucose and maintain a healthy lifestyle. Working with a diet and nutrition associate (dietitian) can help you make a meal [...] 04/25/2006 Document Revised: 07/11/2018 Document Reviewed: 09/02/2017 Outitude Patient Education 2020 [employer]. 08/28/2022 13:59:46 Exercising to Lose Weight Exercising [...] health care provider or diet and nutrition associate (dietitian). This may include: ?Eating fewer calories. [...] 08/31/2011 Document Revised: 08/11/2018 Document Reviewed: 08/11/2018 Elsevier Patient Education 2020 Intent Media. 08/28/2022 13:59:43 BMI for Adults BMI for [...] height. This can be done either in [place] (U.S[place] or metric measurements. Note that charts are available to help you find your BMI quickly and easily without having to do these calculations yourself. To calculate your BMI in [place] ([place].S[place] measurements, your health care provider will: [...] medical problems. BMI can be measured using [place] measurements or metric measurements. To interpret your [...] 04/09/2005 Document Revised: 07/11/2018 Document Reviewed: 06/11/2018 Outitude Patient Education 2019 [employer]. [facility] 01-12-2023 Hospital Discharge instructions Patient [...] drinks. ?Tomatoes and foods made with tomatoes. ?[place] or spicy foods. ?Chocolate and peppermint. Do not drink alcohol. General instructions Take qnfh-ysu-mtgsess and prescription medicines only as told by [...] 10/18/2004 Document Revised: 11/24/2018 Document Reviewed: 11/24/2018 Outitude Patient Education 2020 [employer]. 08/23/2022 08:15:04 Budget-Friendly Healthy Eating Budget-Friendly Healthy [...] frozen fruits, and frozen vegetables. Avoid buying numqh-te-bur foods, such as pre-cut fruits and vegetables and pre-made salads. If possible, shop around to discover where you can find the best prices. Consider other retailers such as [employer] stores, larger wholesale stores, local fruit and vegetable [employer], and [employer] markets. Do not shop when you are [...] 04/01/2015 Document Revised: 07/30/2018 Document Reviewed: 07/30/2018 Outitude Patient Education 2020 [employer] Media. Follow Up Care 02/20/2022 08:09:19 With:MAMTA PICKETTFP, [place], FAM, PED Address: [place] [address]- When:Within 6 Month(s) [facility] 12-21-2022 Hospital Discharge instructions Patient Education 08/01/2022 18:07:47 Heat Therapy, Ijyp-pr-Uetg Heat Therapy Heat therapy can help ease [...] 10/20/2012 Document Revised: 09/21/2019 Document Reviewed: 08/09/2018 Outitude Patient Education 2020 [employer]. Follow Up Care 07/04/2022 17:02:06 With:Perla LEE, BEATRIZ Oneil, PED Address: [address] [place] [address] When:1 month only if needed Comments:40 mins [facility] 10-28-2022 NoteQ3 Patient Name: Jas [...] changes classified as Mccarty's stage C3-M4 per [place] criteria. These changes involved the mucosa at the upper extent of the gastric folds (41 cm from the incisors) extending to the Z-line (37 cm from the incisors). [place]-colored mucosa was present. The maximum longitudinal extent [...] changes classified as Mccarty's stage C3-M4 per [place] criteria. Biopsied. - 4 cm hiatal hernia. [...] the patient. Procedure Code(s): --- Professional --- 05264 Diagnosis Code(s): --- Professional --- K22.70 K44.9 K29.00 K31.89 CPT copyright 2020 [place] [employer]. All rights reserved. Attending Participation: I personally performed the entire procedure. Scope In: 12:44:02 PM Scope Out: 12:54:52 PM MD Katrina Whaley MD 06/08/2022 12:57:27 PM This report has been signed electronically by Katrina Urena MD Number of Addenda: 0 Note Initiated On: 06/08/2022 12:33 [facility]10-28-2022 Nurse Note* Leonor Osorio RN - [...] RN In Department: GASTROENTEROLOGY documented in this encounterChillicothe [facility]09-15-2022 Miscellaneous Notes* Telephone Encounter - Marguerite Potts RN - 04/26/2022 3:44 PM EDT Attempted to reach the patient at the contact number that they provided [phone] (home) . 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 key account representative they must have a responsible adult [...] Number to call with questions or concerns [phone] Number to call to cancel their procedure [phone] Marguerite Potts RN documented in this encounterChillicothe [facility] Center08-29-2022 NoteHNO ID: [id number] Author: Katrina Urena MD Service: ? Author [...] Mellitus Dietary Counseling GERD with hiatal hernia custodial current use of oral hypoglycemic drug Lumbar [...] Findings: The affected area was not inflamed. [place] classification C 40, M 35. Biopsy collected. [...] Past Histories independently gathered by the clinical technical sales support specialist and the remaining scribed note accurately describes my personal service to the patient. Katrina Urena M.D. Office:[phone] Appointments [phone] Fax [phone] Health [facility] History of Present illness Narrative* [...] her had Mccarty's esophagus Note: Last OV 03/22/2022Dr. Rosendo Jasmine: 1 week s/p EGD with biopsies distal esophagitis/Mccarty's changes; extensive distal esophageal disease; no nodularity; pathologist concerned about possible dysplasia sent specimen to [facility], still pending; patient denies pain or GERD symptoms. Past Medical History: Ongoing: Mccarty's esophagus with dysplasia BMI 40-44-9 BPH associated with nocturia Diabetes Mellitus Dietary Counseling GERD with hiatal hernia custodial current use of oral hypoglycemic drug Lumbar [...] Findings: The affected area was not inflamed. [place] classification C 40, M 35. Biopsy collected. [...] Past Histories independently gathered by the clinical technical sales support specialist and the remaining scribed note accurately describes my personal service to the patient. Katrina Urena M.D. Office:[phone] Appointments [phone] Fax [phone] documented in this encounterChillicothe [facility] Center07-12-2022 Hospital Discharge instructions Patient Education [...] appointment to see a diet and nutrition associate (registered dietitian) to help you create a healthy eating plan. General instructions Check your blood glucose levels as told by your health care provider. Take jzpa-tpo-skluako and prescription medicines only as told by [...] 09/17/2006 Document Revised: 07/11/2018 Document Reviewed: 08/31/2016 Outitude Patient Education 2020 [employer]. 02/20/2022 08:07:58 Type 2 Diabetes Mellitus, Self Care, Adult, Nmdj-tp-Gwne Type 2 Diabetes Mellitus, Self Care, Adult [...] oil, and canola oil. Meet with a meat seafood associate (dietitian). He or she can help you [...] for cuts, bruises, redness, blisters, or sores. Kane your teeth and gums two times a day. Floss one or more times a day. Go to the dentist one or more times every 6 months. Stay at a healthy weight. General instructions Take wqxz-igv-pdtuswu and prescription medicines only as told by your doctor. Share your diabetes care plan with: ?Your work or school. ?People you live with. Carry a card or wear jewelry that says you have diabetes. Keep all follow-up visits as told by your doctor. This is important. Questions to ask your doctor Do I need to meet with a software tester? Where can I find a support group for people with diabetes? Where to find more information To learn more about diabetes, visit: [place] Diabetes Association: www.diabetes.org [place] Association of Diabetes Educators: www.diabeteseducator.org Summary When [...] 11/19/2016 Document Revised: 01/19/2019 Document Reviewed: 08/31/2016 Outitude Patient Education 2020 [employer] Media. 02/20/2022 08:07:54 Type 2 Diabetes Mellitus, Self [...] treat it right away. Always have a 65-jwaewqnbn-uoonek carbohydrate snack with you to treat low [...] appointment to see a diet and nutrition associate (registered dietitian) to help you create an [...] your health care provider once every year. Kane your teeth and gums two times a day, and floss one or more times a day. Visit your dentist one or more times every 6 months. Maintain a healthy weight. General instructions Take tcan-ipt-bbrxupq and prescription medicines only as told by your health care provider. Share your diabetes management plan with people in your workplace, school, and household. Carry a medical alert card or wear medical alert jewelry. Keep all follow-up visits as told by your health care provider. This is important. Questions to ask your health care provider Do I need to meet with a software tester? Where can I find a support group for people with diabetes? Where to find more information For more information about diabetes, visit: [place] Diabetes Association (ADA): www.diabetes.org [place] Association of Diabetes Educators (AADE): www.diabeteseducator.org Summary [...] 11/19/2016 Document Revised: 01/19/2019 Document Reviewed: 08/31/2016 Outitude Patient Education 2020 [employer]. Follow Up Care 08/22/2021 10:02:38 With:Mt GOODEN DO, FAAFP, FAM, PED Address: [address] [place] [address]- When:Within 6 Month(s) [facility] Evaluation + Plan note Future Appointments Appointment Date:02/20/2022 07:40:00 AM Scheduled Provider:Mt GOODEN DO, FAAFP Location:[facility] Appointment Type: Open Appointment Date:09/13/2022 11:00:00 AM Scheduled Provider: Location:[facility] Appointment Type:FM Medicare Wellness Subsequent Future Scheduled Tests Laboratory* HgbA1c 02/20/21 * HgbA1c 05/23/21 * HgbA1c 08/23/21 * HgbA1c 11/21/21 * HgbA1c 12/13/20 * HgbA1c 01/21/21 * HgbA1c 04/23/21 * HgbA1c 07/23/21 [facility] Future Appointments Appointment Date:02/22/2022 09:40:00 AM Scheduled Provider:Gonzales ROBBINS MD Location:[facility] Appointment Type: Established 15 Appointment Date:08/23/2022 07:40:00 AM Scheduled Provider:Mt GOODEN DO, FAAFP Location:[facility] Appointment Type: Open Appointment Date:09/13/2022 11:00:00 AM Scheduled Provider: Location:[facility] Appointment Type: Medicare Wellness Subsequent Future [...] Function Panel 02/20/22 * Lipid Panel 02/20/22 [facility] Evaluation + Plan note Future Appointments Appointment Date:03/15/2022 09:00:00 AM Scheduled Provider: Location:[facility] Appointment Type:Surgery FT Appointment Date:08/23/2022 07:40:00 AM Scheduled Provider:Mt GOODEN DO, FAAFP Location:[facility] Appointment Type: Open Appointment Date:09/13/2022 11:00:00 AM Scheduled Provider: Location:[facility] Appointment Type:FM Medicare Wellness Subsequent Future [...] Function Panel 02/20/22 * Lipid Panel 02/20/22 [facility] General Surgery [place] Evaluation + Plan note Future Appointments Appointment Date:07/04/2022 03:40:00 PM Scheduled Provider:Thao Duncan DO Location:[facility] Appointment Type:FM Procedure Appointment Date:08/23/2022 07:40:00 AM Scheduled Provider:Mt GOODEN DO, FAAFP Location:[facility] Appointment Type: Open Appointment Date:09/13/2022 11:00:00 AM Scheduled Provider: Location:[facility] Appointment Type: Medicare Wellness Subsequent Future Scheduled Tests Laboratory* HgbA1c 08/23/21 * HgbA1c 11/21/21 * HgbA1c 02/20/22 * HgbA1c 05/23/22 * HgbA1c 08/23/22 * HgbA1c 11/21/22 * HgbA1c 07/23/21 * Microalbumin Level Urine 02/20/22 * PSA Screen, Total 02/20/22 * Basic Metabolic Panel 02/20/22 * CBC w/ Auto Diff 02/20/22 * Hepatic Function Panel 02/20/22 * Lipid Panel 02/20/22 [facility] Primary Care Evaluation + Plan note Future Appointments Appointment Date:08/23/2022 07:40:00 AM Scheduled Provider:Mt GOODEN DO, FAAFP Location:[facility] Appointment Type: Open Appointment Date:09/13/2022 11:00:00 AM Scheduled Provider: Location:[facility] Appointment Type: Medicare Wellness Subsequent Future Scheduled Tests Laboratory* HgbA1c 08/23/21 * HgbA1c 11/21/21 * HgbA1c 02/20/22 * HgbA1c 05/23/22 * HgbA1c 08/23/22 * HgbA1c 11/21/22 * HgbA1c 07/23/21 * Microalbumin Level Urine 02/20/22 * PSA Screen, Total 02/20/22 * Basic Metabolic Panel 02/20/22 * CBC w/ Auto Diff 02/20/22 * Hepatic Function Panel 02/20/22 * Lipid Panel 02/20/22 [facility] Primary Care Evaluation + Plan note Future Appointments Appointment Date:08/28/2022 11:00:00 AM Scheduled Provider: Location:[facility] Appointment Type:FM Medicare Wellness Subsequent Appointment Date:09/04/2022 03:00:00 PM Scheduled Provider:Thao Duncan DO Location:[facility] Appointment Type: Procedure Appointment Date:02/18/2023 08:00:00 AM Scheduled Provider:Mt GOODEN DO, FAAFP Location:[facility] Appointment Type: Open Future Scheduled Tests [...] Lipid Panel 02/20/22 * Lipid Panel 08/23/22 [facility] Primary Care Evaluation + Plan note Future Appointments Appointment Date:09/04/2022 03:00:00 PM Scheduled Provider:Thao Dunacn DO Location:[facility] Appointment Type: Procedure Appointment Date:02/18/2023 08:00:00 AM Scheduled Provider:Mt GOODEN DO, FAAFP Location:[facility] Appointment Type: Open Appointment Date:08/26/2023 11:00:00 AM Scheduled Provider: Location:[facility] Appointment Type: Medicare Wellness Subsequent Future [...] Lipid Panel 02/20/22 * Lipid Panel 08/23/22 [facility] Primary Care Evaluation + Plan note Future Appointments Appointment Date:09/14/2022 10:40:00 AM Scheduled Provider:Thao Duncan DO Location:[facility] Appointment Type:FM Procedure Appointment Date:09/27/2022 09:15:00 AM Scheduled Provider:Pawan Laureano MD Location:[facility] Appointment Type:Pain Management - Follow Up (FT) Appointment Date:02/18/2023 08:00:00 AM Scheduled Provider:Mt GOODEN DO, FAAFP Location:[facility] Appointment Type:FM Open Appointment Date:08/26/2023 11:00:00 AM Scheduled Provider: Location:[facility] Appointment Type:FM Medicare Wellness Subsequent Future [...] Lipid Panel 02/20/22 * [facility] Appointment Date:09/18/2022 07:30:00 AM Scheduled Provider: [facility] App[facility] Type:US Aorta Procedures (FT) Appointment Date:09/27/2022 09:15:00 AM Scheduled Provider:Pawan Laureano MD Location:[facility] Appointment Type:Pain Management - Follow Up (FT) Appointment Date:02/18/2023 08:00:00 AM Scheduled Provider:Mt GOODEN DO, FAAFP Location:[facility] Appointment Type:FM Open Appointment Date:08/26/2023 11:00:00 AM Scheduled Provider: Location:[facility] Appointment Type: Medicare Wellness Subsequent Future [...] Lipid Panel 09/10/22 Radiology* US Aorta 09/18/22 [facility] Primary Care Evaluation + Plan note Future Appointments Appointment Date:09/27/2022 09:15:00 AM Scheduled Provider:Pawan Laureano MD Location:[facility] Appointment Type:Pain Management - Follow Up (FT) Appointment Date:02/18/2023 08:00:00 AM Scheduled Provider:Mt GOODEN DO, FAAFP Location:[facility] Appointment Type:FM Open Appointment Date:08/26/2023 11:00:00 AM Scheduled Provider: Location:[facility] Appointment Type: Medicare Wellness Subsequent Future [...] Lipid Panel 02/20/22 * [facility] Appointment Date:11/29/2022 09:45:00 AM Scheduled Provider:Pawan Laureano MD Location:[facility] Appointment Type:Pain Management - Follow Up (FT) Appointment Date:02/18/2023 08:00:00 AM Scheduled Provider:Mt GOODEN DO, FAAFP Location:[facility] Appointment Type: Open Appointment Date:08/26/2023 11:00:00 AM Scheduled Provider: Location:[facility] Appointment Type:FM Medicare Wellness Subsequent Future [...] Lipid Panel 02/20/22 * Lipid [facility] 09/10/22 [facility] Appointment Date:11/08/2022 10:00:00 AM Scheduled Provider:tM GOODEN DO, FAAFP Location:[facility] Appointment Type: Open Appointment Date:11/29/2022 09:45:00 AM Scheduled Provider:Pawan Laureano MD Location:[facility] Appointment Type:Pain Management - Follow Up (FT) Appointment Date:02/18/2023 08:00:00 AM Scheduled Provider:Mt GOODEN DO, FAAFP Location:[facility] Appointment Type: Open Appointment Date:08/26/2023 11:00:00 AM Scheduled Provider: Location:[facility] Appointment Type: Medicare Wellness Subsequent Future [...] Lipid Panel 02/20/22 * Lipid Panel 09/10/22 [facility] Appointment Date:11/29/2022 09:45:00 AM Scheduled Provider:Pawan Laureano MD Location:[facility] Appointment Type:Pain Management - Follow Up (FT) Appointment Date:02/18/2023 08:00:00 AM Scheduled Provider:Mt GOODEN DO, FAAFP Location:[facility] Appointment Type: Open Appointment Date:08/26/2023 11:00:00 AM Scheduled Provider: Location:[facility] Appointment Type: Medicare Wellness Subsequent Future [...] Lipid Panel 09/10/22 Radiology* US Aorta 11/08/22 [facility] Primary Care Evaluation + Plan note Future Appointments Appointment Date:11/29/2022 09:45:00 AM Scheduled Provider:Pawan Laureano MD Location:[facility] Appointment Type:Pain Management - Follow Up (FT) Appointment Date:02/18/2023 08:00:00 AM Scheduled Provider:Mt GOODEN DO, FAAFP Location:[facility] Appointment Type:FM Open Appointment Date:08/26/2023 11:00:00 AM Scheduled Provider: Location:[facility] Appointment Type:FM Medicare Wellness Subsequent Future [...] Lipid Panel 02/20/22 * Lipid Panel 09/10/22 [facility] Appointment Date:01/23/2023 09:15:00 AM Scheduled Provider:Joycelyn CHERRY MD Location:[facility] Appointment Type:BADH New Patient Appointment Date:02/18/2023 08:00:00 AM Scheduled Provider:Mt GOODEN DO, FAAFP Location:[facility] Appointment Type: Open Appointment Date:08/26/2023 11:00:00 AM Scheduled Provider: Location:[facility] Appointment Type: Medicare Wellness Subsequent Future [...] Lipid Panel 02/20/22 * Lipid Panel 09/10/22 [facility] Primary Care Evaluation + Plan note Future Appointments Appointment Date:02/18/2023 08:00:00 AM Scheduled Provider:Mt GOODEN DO, FAAFP Location:[facility] Appointment Type: Open Appointment Date:02/20/2023 02:25:00 PM Scheduled Provider: Location:[facility] Appointment Type:Surgery FT Appointment Date:08/26/2023 11:00:00 AM Scheduled Provider: Location:[facility] Appointment Type:FM Medicare Wellness Subsequent Future [...] Lipid Panel 02/20/22 * Lipid Panel 09/10/22 [facility] Appointment Date:08/26/2023 11:00:00 AM Scheduled Provider: Location:[facility] Appointment Type:FM Medicare Wellness Subsequent Future [...] Lipid Panel 02/20/22 * Lipid Panel 09/10/22 [facility] Primary [facility] Evaluation + Plan note Future Appointments Appointment Date:03/29/2023 09:45:00 AM Scheduled Provider[facility]:A[facility] MONITORING Sleep Study Clinic Follow Up (FT) Appointment Date:04/09/2023 10:00:00 AM Scheduled Provider: [facility] Type:ONC Office Visit 30 (FT) Appointment Date:06/03/2023 01:20:00 PM Scheduled Provider:Mt GOODEN DO, FAAFP Location:[facility] Appointment Type: Open Appointment Date:08/26/2023 11:00:00 AM Scheduled Provider: Location:[facility] Appointment Type:FM Medicare Wellness Subsequent Diagnostic Tests Pending * [...] Function Panel 09/10/22 * Lipid Panel 09/10/22 [facility] Appointment Date:04/09/2023 10:00:00 AM Scheduled Provider: [facility] Type:ONC Office Visit 30 (FT) Appointment Date:06/03/2023 01:20:00 PM Scheduled Provider:Mt GOODEN DO, FAAFP Location:[facility] Appointment Type: Open Appointment Date:08/26/2023 11:00:00 AM Scheduled Provider: Location:[facility] Appointment Type: Medicare Wellness Subsequent Future Scheduled Tests Laboratory* HgbA1c 11/08/22 * HgbA1c 05/23/22 * HgbA1c 08/23/22 * HgbA1c 11/21/22 * HgbA1c 09/10/22 * HgbA1c 11/21/22 * HgbA1c 05/23/23 * CBC w/ Auto Diff 04/09/23 * Comprehensive Metabolic Panel 04/09/23 * Hepatic Function Panel 11/08/22 * Hepatic Function Panel 09/10/22 * Lipid Panel 09/10/22 [facility] Appointment Date:04/09/2023 10:00:00 AM Scheduled Provider: [facility] Type:ONC Office Visit 30 (FT) Appointment Date:06/03/2023 01:20:00 PM Scheduled Provider:Mt GOODEN DO, FAAFP Location:[facility] Appointment Type: Open Appointment Date:08/26/2023 11:00:00 AM Scheduled Provider: Location:[facility] Appointment Type: Medicare Wellness Subsequent Future Scheduled Tests Laboratory* HgbA1c 11/08/22 * HgbA1c 05/23/22 * HgbA1c 08/23/22 * HgbA1c 11/21/22 * HgbA1c 09/10/22 * HgbA1c 11/21/22 * HgbA1c 05/23/23 * Hepatic Function Panel 11/08/22 * Hepatic Function Panel 09/10/22 * Lipid Panel 09/10/22 [facility]ments Appointment Date:06/03/2023 01:20:00 PM Scheduled Provider:Mt GOODEN DO, FAAFP Location:[facility] Appointment Type: Open Appointment Date:07/09/2023 10:00:00 AM Scheduled Provider: [facility] Type:ONC Office Visit 30 (FT) Appointment Date:08/26/2023 11:00:00 AM Scheduled Provider: Location:[facility] Appointment Type:FM Medicare Wellness Subsequent Future [...] Function Panel 09/10/22 * Lipid Panel 09/10/22 [facility] App[facility]ments Appointment Date:06/03/2023 01:20:00 PM Scheduled Provider:Mt GOODEN DO, FAAFP Location:[facility] Appointment Type: Open Appointment Date:07/09/2023 10:00:00 AM Scheduled Provider: [facility] Type:ONC Office Visit 30 (FT) Appointment Date:08/26/2023 11:00:00 AM Scheduled Provider: Location:[facility] Appointment Type: Medicare Wellness Subsequent Future Scheduled Tests Laboratory* HgbA1c 11/08/22 * HgbA1c 05/23/22 * HgbA1c 08/23/22 * HgbA1c 11/21/22 * HgbA1c 09/10/22 * HgbA1c 11/21/22 * HgbA1c 05/23/23 * CBC w/ Auto Diff 07/10/23 * Comprehensive Metabolic Panel 07/10/23 * D-Dimer 07/11/23 * Hepatic Function Panel 11/08/22 * Hepatic Function Panel 09/10/22 * Lipid Panel 09/10/22 [facility] Appointment Date:06/11/2023 09:00:00 AM Scheduled Provider: [facility] Appoint[facility] Type:US Duplex Procedures (FT) Appointment Date:07/09/2023 10:00:00 AM Scheduled Provider: Location[facility] Appointment Type:ONC Office Visit 30 (FT) Appointment Date:08/26/2023 11:00:00 AM Scheduled Provider: Location:[facility] Appointment Type: Medicare Wellness Subsequent Appointment Date:09/05/2023 09:40:00 AM Scheduled Provider:Mt GOODEN DO, FAAFP Location:[facility] Appointment Type: Open Future Scheduled Tests Laboratory* HgbA1c 11/08/22 * HgbA1c 05/23/22 * HgbA1c 08/23/22 * HgbA1c 11/21/22 * HgbA1c 09/10/22 * HgbA1c 11/21/22 * CBC w/ Auto Diff 07/10/23 * Comprehensive Metabolic Panel 07/10/23 * D-Dimer 07/11/23 * Hepatic Function Panel 09/10/22 Radiology* US LE Venous Duplex Insufficiency Bilat 06/11/23 * US LE Venous Duplex Bilateral 06/11/23 [facility] Primary [facility] Evaluation + Plan note Future Appointments Appointment Date:06/26/2023 09:45:00 AM Scheduled Provider:Matty Murillo MD [facility] Appointment Type:Pulmonary New Patient (FT) Appointment Date:07/09/2023 10:00:00 AM Scheduled Provider: [facility] Type:ONC Office Visit 30 (FT) Appointment Date:08/26/2023 11:00:00 AM Scheduled Provider: Location:[facility] Appointment Type: Medicare Wellness Subsequent Appointment Date:09/05/2023 09:40:00 AM Scheduled Provider:Mt GOODEN DO, FAAFP Location:[facility] Appointment Type: Open Future Scheduled Tests Laboratory* HgbA1c 11/08/22 * HgbA1c 05/23/22 * HgbA1c 08/23/22 * HgbA1c 11/21/22 * HgbA1c 09/10/22 * HgbA1c 11/21/22 * CBC w/ Auto Diff 07/10/23 * Comprehensive Metabolic Panel 07/10/23 * D-Dimer 07/11/23 * Hepatic Function Panel 09/10/22 [facility] Appointment Date:07/09/2023 10:00:00 AM Scheduled Provider: Location:.[facility] Appointment Type:ONC Office Visit 30 (FT) Appointment Date:07/10/2023 09:30:00 AM Scheduled Provider: Location:.[facility] Appointment Type:PUL Pulmonary Function Test (FT) Appointment Date:07/10/2023 10:30:00 AM Scheduled Provider: Location[facility] Appointment Type:PUL Six Minute Walk Test (FT) Appointment Date:07/17/2023 09:45:00 AM Scheduled Provider:Matty Murillo MD [facility] Type:Pulmonary Follow Up (FT) Appointment Date:08/26/2023 11:00:00 AM Scheduled Provider: Location:[facility] Appointment Type: Medicare Wellness Subsequent Appointment Date:09/05/2023 09:40:00 AM Scheduled Provider:Mt GOODEN DO, FAAFP Location:[facility] Appointment Type: Open Future Scheduled Tests Laboratory* HgbA1c 11/08/22 * HgbA1c 08/23/22 * HgbA1c 11/21/22 * HgbA1c 09/10/22 * HgbA1c 11/21/22 * CBC w/ Auto Diff 07/10/23 * Comprehensive Metabolic Panel 07/10/23 * D-Dimer 07/11/23 * Hepatic Function Panel 09/10/22 [facility]ments Appointment Date:07/10/2023 09:30:00 AM Scheduled Provider: Location[facility] Appointment Type:PUL Pulmonary Function Test (FT) Appointment Date:07/10/2023 10:30:00 AM Scheduled Provider: Location:.[facility] Appointment Type:PUL Six Minute Walk Test (FT) Appointment Date:07/17/2023 09:45:00 AM Scheduled Provider:Matty Murillo MD Location[facility] Appointment Type:Pulmonary Follow Up (FT) Appointment Date:08/26/2023 11:00:00 AM Scheduled Provider: Location:[facility] Appointment Type: Medicare Wellness Subsequent Appointment Date:09/05/2023 09:40:00 AM Scheduled Provider:Mt GOODEN DO, FAAFP Location:[facility] Appointment Type: Open Appointment Date:01/07/2024 10:00:00 AM Scheduled Provider: [facility] Type:ONC Office Visit 30 (FT) Future Scheduled Tests Laboratory* HgbA1c 11/08/22 * HgbA1c 08/23/22 * HgbA1c 11/21/22 * HgbA1c 09/10/22 * HgbA1c 11/21/22 * CBC w/ Auto Diff 01/07/24 * Comprehensive Metabolic Panel 01/07/24 * D-Dimer 01/07/24 * Hepatic Function Panel 09/10/22 [facility]ments Appointment Date:08/26/2023 11:00:00 AM Scheduled Provider: Location:[facility] Appointment Type: Medicare Wellness Subsequent Appointment Date:09/05/2023 09:40:00 AM Scheduled Provider:Mt GOODEN DO, FAAFP Location:[facility] Appointment Type: Open Appointment Date:01/07/2024 10:00:00 AM Scheduled Provider: [facility] Type:ONC Office Visit 30 (FT) Future Scheduled Tests Laboratory* HgbA1c 11/08/22 * HgbA1c 08/23/22 * HgbA1c 11/21/22 * HgbA1c 09/10/22 * HgbA1c 11/21/22 * CBC w/ Auto Diff 01/07/24 * Comprehensive Metabolic Panel 01/07/24 * D-Dimer 01/07/24 * Hepatic Function Panel 09/10/22 [facility] App[facility]ments Appointment Date:09/05/2023 09:40:00 AM Scheduled Provider:Mt GOODEN DO, FAAFP Location:[facility] Appointment Type: Open Appointment Date:01/07/2024 10:00:00 AM Scheduled Provider: [facility] Type:ONC Office Visit 30 (FT) Appointment Date:08/31/2024 09:30:00 AM Scheduled Provider: Location:[facility] Appointment Type: Medicare Wellness Subsequent Future Scheduled Tests Laboratory* HgbA1c 11/08/22 * HgbA1c 08/23/22 * HgbA1c 11/21/22 * HgbA1c 09/10/22 * HgbA1c 11/21/22 * CBC w/ Auto Diff 01/07/24 * Comprehensive Metabolic Panel 01/07/24 * D-Dimer 01/07/24 * Hepatic Function Panel 09/10/22 [facility] Primary Care Evaluation + Plan note Future Appointments Appointment Date:09/05/2023 09:40:00 AM Scheduled Provider:Mt GOODEN DO, FAAFP Location:[facility] Appointment Type: Open Appointment Date:01/07/2024 10:00:00 AM Scheduled Provider: Location:.[facility] Appointment Type:ONC Office Visit 30 (FT) Appointment Date:08/31/2024 09:30:00 AM Scheduled Provider: Location:[facility] Appointment Type:FM Medicare Wellness Subsequent Future Scheduled Tests Laboratory* HgbA1c 08/23/22 * HgbA1c 11/21/22 * HgbA1c 09/10/22 * HgbA1c 11/21/22 * CBC w/ Auto Diff 01/07/24 * Comprehensive Metabolic Panel 01/07/24 * D-Dimer 01/07/24 [facility] Diagnosis Mccarty's esophagus with dysplasia- Primary Mccarty's esophagus [facility] Diagnosis Mccarty's esophagus with dysplasia Mccarty's esophagus [facility] Diagnosis Chronic right-sided low back pain with right-sided sciatica- Primary [facility] Diagnosis Bilateral low back pain with sciatica, sciatica laterality unspecified, unspecified chronicity- Primary [facility] Diagnosis Sacrococcygeal disorders, not elsewhere classified- [facility] Diagnosis Bilateral low back pain with sciatica, sciatica laterality unspecified, unspecified chronicity [facility] Narrative No data available for this section [facility] No data available for this section [facility] No data available for this section [facility] Primary [facility] Reason for referral (narrative)* Outpatient Procedure (Routine) - Authorized Specialty Diagnoses / Procedures Referred By Sourav arriaga Referred To Contact [facility] Diagnoses Mccarty's esophagus with dysplasia Procedures EGD DIAGNOSTIC ESOPHAGOGASTRODUODENOSC OPY TRANSORAL DIAGNOSTIC Katrina Urena MD [address] [place] [address] [place] [address] Referral ID Status Reason Start Date Expiration Date Visits Requested Visits Authorized [id number] Authorized Auto-Generat ed Referral 04/09/2022 04/09/2023 1 1 [facility] for referral (narrative)* Outpatient Procedure (Routine) - Closed Specialty Diagnoses / Procedures Referred By Sourav arriaga Referred To Contact [facility] Diagnoses Mccarty's esophagus with dysplasia Procedures EGD DIAGNOSTIC ESOPHAGOGASTRODUODENOSC OPY TRANSORAL DIAGNOSTIC Katrina Urena MD [address] [place] [address] [place] [address] Referral ID Status Reason Start Date Expiration Date V isits Requested Visits Authorized [id number] Closed Auto-Generate d Referral 04/09/2022 04/09/2023 1 1 [facility] for referral (narrative) Referred by: Thao Duncan DO [facility] Primary [facility] Reason for referral (narrative)* Diagnostic Procedure Only (Routine) - Closed Specialty Diagnoses / Procedures Referred By Sourav arriaga Referred To Contact XR IMAGING Diagnoses Bilateral low back pain with sciatica, sciatica laterality unspecified, unspecified chronicity Procedures XR SACROILIAC JOINTS 2V AP PELVIS/FERGUESON RADIOLOGIC EXAMINATION SACROILIAC JNTS <3 VIEWS Juma Monk MD [address] [place] [address] Xr Imaging Referral ID Status Reason Start Date Expiration Date V isits Requested Visits Authorized [id number] Closed Auto-Generate d Referral 12/05/2022 01/04/2024 1 1 [facility] for referral (narrative)* Diagnostic Procedure Only (Routine) - Closed Specialty Diagnoses / Procedures Referred By Contac t Referred To Contact XR IMAGING Diagnoses Bilateral low back pain with sciatica, sciatica laterality unspecified, unspecified chronicity Procedures XR SACROILIAC JOINTS 2V AP PELVIS/FERGUESON RADIOLOGIC EXAMINATION SACROILIAC JNTS <3 VIEWS Juma Monk MD [address] [place] [id number] Xr Imaging Referral ID Status Reason Start Date Expiration Date V isits Requested Visits Authorized [id number] Closed Auto-Generate d Referral 12/05/2022 01/04/2024 1 1 [facility] for visit Narrative* Outpatient Procedure (Routine) - Closed Specialty Diagnoses / Procedures Referred By Lesac t Referred To Contact [facility] Diagnoses Mccarty's esophagus with dysplasia Procedures EGD DIAGNOSTIC ESOPHAGOGASTRODUODENOSC OPY TRANSORAL DIAGNOSTIC Katrina Urena MD [address] [place] [address] [facility] [place] [address] [place] [address] Referral ID Status Reason Start Date Expiration Date V isits Requested Visits Authorized [id number] Closed Auto-Generate d Referral 04/09/2022 04/09/2023 1 1 [facility] for visit Narrative* Diagnostic Procedure Only (Routine) - Closed Specialty Diagnoses / Procedures Referred By Lesac t Referred To Contact XR IMAGING Diagnoses Bilateral low back pain with sciatica, sciatica laterality unspecified, unspecified chronicity Procedures XR SACROILIAC JOINTS 2V AP PELVIS/FERGUESON RADIOLOGIC EXAMINATION SACROILIAC JNTS <3 VIEWS Juma Monk MD [address] [place] [address] Xr Imaging Referral ID Status Reason Start Date Expiration Date V isits Requested Visits Authorized [id number] Closed Auto-Generate d Referral 12/05/2022 01/04/2024 1 1 [facility] Reason for Referral Specialty Diagnoses / Procedures Referred By Contac t Referred To Contact MR IMAGING Diagnoses Sacrococcygeal disorders, not elsewhere classified Procedures MRI SACRUM/COCCYX WO IVCON MRI PELVIS W/O CONTRAST MATERIAL Juma Monk MD [address] [place] [address] Mr Imaging Referral ID Status Reason Start Date Expiration Date Visits Requested Visits Authorized [id number] Pending Review Auto-Generat ed Referral 12/17/2022 01/16/2024 [...] section No data available for this section Advance Directives No Advanced Directives Records FoundNo Advanced Directives Records FoundNo Advanced Directives Records Found Additional Source Comments Care Team (unrecognized sect ion and content) Personnel Name: [facility] GOODEN DO, FAAFP Address: Address: [address] [place] [address] Biostatistician Relationship Specialty Start Date End Date Pcp, No PCP - General 02/24/22 09/11/22 Biostatistician Relationship Specialty Start Date End Date Pcp, No PCP - General 02/24/22 09/11/22 Biostatistician Relationship Specialty Start Date End Date Pcp, No PCP - General 02/24/22 09/11/22 Biostatistician Relationship Specialty Start Date End Date [place] Gooden DO [address] [place] [address] PCP - General Family Medicine 11/14/22 Thao Duncan(Historical)DO Referring Primary Care 08/07/22 Biostatistician Relationship Specialty Start Date End Date [facility] Gooden, [address] [place] [address] PCP - General Family Medicine 11/14/22 Thao Duncan(Historical), DO Referring Primary Care 08/07/22 Biostatistician Relationship Specialty Start Date End Date [facility] Gooden DO [address] [place] [address] PCP - General Family Medicine 11/14/22 Thao Duncan(Historical), DO Referring Primary Care 08/07/22 Biostatistician Relationship Specialty Start Date End Date Mt Gooden DO [address] [place] [address] PCP - General Family Medicine 11/14/22 Thao Duncan(Historical), DO Referring Primary Care 08/07/22 Source Comments (unrecognize d section and content) In the event this informatio n is protected by the Federal Confidentiality of Alcohol and Drug Abuse Patient Records regulations: The Federal rules restrict any use of the information to criminally investigate or prosecute any alcohol or drug abuse patient.[facility] the event this information is protected by the Federal Confidentiality of Alcohol and Drug Abuse Patient Records regulations: The Federal rules restrict any use of the information to criminally investigate or prosecute any alcohol or drug abuse patient.[facility] the event this information is protected by the Federal Confidentiality of Alcohol and Drug Abuse Patient Records regulations: The Federal rules restrict any use of the information to criminally investigate or prosecute any alcohol or drug abuse patient.[facility] the event this information is protected by the Federal Confidentiality of Alcohol and Drug Abuse Patient Records regulations: The Federal rules restrict any use of the information to criminally investigate or prosecute any alcohol or drug abuse patient.[facility] the event this information is protected by the Federal Confidentiality of Alcohol and Drug Abuse Patient Records regulations: The Federal rules restrict any use of the information to criminally investigate or prosecute any alcohol or drug abuse patient.[facility] the event this information is protected by the Federal Confidentiality of Alcohol and Drug Abuse Patient Records regulations: The Federal rules restrict any use of the information to criminally investigate or prosecute any alcohol or drug abuse patient.[facility] the event this information is protected by the Federal Confidentiality of Alcohol and Drug Abuse Patient Records regulations: The Federal rules restrict any use of the information to criminally investigate or prosecute any alcohol or drug abuse patient.[facility] the event this information is protected by the Federal Confidentiality of Alcohol and Drug Abuse Patient Records regulations: The Federal rules restrict any use of the information to criminally investigate or prosecute any alcohol or drug abuse patient.[facility] Reason for Visit (unrecogniz ed section and content) Reason Comments Appointment Confirmation Reason Comments Consult Dx oa. Reason Comments Received Outside Medical Records Reason Comments Follow Up Denies any concerns Reason Comments Results (unrecognized sect ion and content) No Status Records FoundNo Status Records FoundNo Status Records Found INFORMATION SOURCE (unrecogn ized section and content) DATE CREATED AUTHOR 01/29/2023 [facility] DATE CREATED AUTHOR AUTHOR'S ORGANIZ ATION 06/27/2023 [facility] DATE CREATED AUTHOR AUTHOR'S ORGANIZ ATION 07/19/2023 [facility] FOR RECORDS PERTAINING TO PATIENTS [...] BE BASED ON THE PRIMARY CLINICAL RECORDS. [facility]. provides no warranty or guarantee of the accuracy or completeness of information in this document.
== END 2023-09-09 12:46 | disposition home or self-care (01) ==
LOC: VC 12:46
PROVIDERS: PCP Radiology Diagnostic Radiology; Visit Provider Radiology Diagnostic Radiology
DX: I80.01 Phlebitis and thrombophlebitis of superficial vessels of right lower extremity (principal)
CPT/HCPCS: 93971; G0463

== ENCOUNTER 2023-09-17 10:44 | Outpatient (OUT) | payer MEDICARE, OTHER, SELFPAY ==
--- NOTE | 2023-09-17 10:45 | VEIN_ITS ---
[address] [address] Patient Name: JOSE GONZALEZ MRN: [id number] date: 1950 Sex: M Assigned Patient Location: Current Patient Location: Accession/Order Number: [id number] Exam Date: 09/17/2023 10:46 Report Date: 09/17/2023 13:18 At the request of: JAMES ESPINOZA Procedure: VC INJ Foam Sclerosant WUS BUSINESS SUPPORT PROCEDURE: VC INJ Foam Sclerosant WUS BUSINESS SUPPORT HISTORY: Pain due to varicose veins of bilateral legs I83.813 Pre-operative Diagnosis: CEAP class C6 venous insufficiency with pain, tenderness, edema and incompetent branch saphenous vein(s), chronic venous insufficiency left leg secondary to venous incompetence Post-operative Diagnosis: CEAP class C6 venous insufficiency with pain, tenderness, edema and incompetent branch saphenous vein(s), chronic venous insufficiency left leg secondary to venous incompetence Procedure Performed: 1. Ultrasound-guided microfoam chemical ablation with Varithenaregistered 2. Intraoperative ultrasound guidance Physician: Calvin Tan M.D. Anesthesia: None Indications for Procedure: 73 year old male. Symptoms including lower extremity pain, swelling, dilated bulging veins, chronic skin changes for many years despite conservative medical therapy including medical compression stockings, exercise and analgesics. Prior procedures include endovenous laser ablation. Multiple incompetent varicosities of the left leg. Duplex scan showed reflux and enlarged diameters up to 4 mm. The patient underwent informed consent including management options where the complications of infection, bleeding, pain, and skin injury were discussed. Particular attention was spent discussing thrombus extension and deep vein thrombosis as well as the possibility of pulmonary embolus and treatment with oral or injectable blood thinners. Procedure: The patient walked to the procedure room. All applicable staff donned appropriate apparel. A procedure timeout was performed to confirm correct patient, correct extremity, correct procedure, and correct room set-up including presence of all applicable supplies, devices, and drugs. A duplex ultrasound, performed by myself confirmed the location and incompetence of branch saphenous varicosities and their course was marked on the skin together with the dilated tributaries. The extent of treatment of the vein and the associated varicosities was determined through ultrasound mapping. The skin was prepped and then punctured with a butterfly needle and advanced under ultrasound guidance. The Varithenaregistered canister was activated and the canister was primed and purged as required in the instructions for use. Varithenaregistered was drawn into a sterile syringe. Varithenaregistered was slowly administered at 0.5-1.0 cc/second with close observation by ultrasound of its course in the vessels. Total volume utilized was: 15 mL (8 mL into a 4 mm varicosity of the distal anterior lower leg; 4 mL into a 3 mm varicosity distal anterior upper leg; 3 mL into a 3 mm varicosity distal lateral lower leg). Following administration of Varithenaregistered the leg was elevated and the patient was asked to repeatedly dorsiflex the ankle to limit flow of Varithenaregistered into perforating veins. Once appropriate spasm had been confirmed in the treated veins, the vascular catheter was removed from the leg and light pressure was applied over the puncture site for hemostasis. The common femoral and deep superficial veins were then evaluated for flow and compressibility prior to dressing placement. The lower extremity was kept elevated at 45 degrees above the horizontal and cording material was applied over the saphenous segments and tributaries to allow for eccentric compression over the target vessels including the targeted saphenous vein(s). A multilayer dressing was applied consisting of foam pads, coban and thigh-high 20-30 mm Hg compression elastic support hose were placed on the patient. The leg was lowered only after compression had been applied and the patient was immediately ambulatory. The patient ambulated 10 minutes under supervision and was without apparent concerns at time of release. Post-care instructions include advising patient to keep post-treatment bandages in place and dry for 48 hours, avoid extended periods of inactivity, avoid heavy exercise for one week, wear compression stockings on the treated leg continuously for two weeks, to walk daily for 10 minutes over the next month. The patient was instructed to take an anti-inflammatory medicine as needed and to follow up for color duplex scan of the Saphenous veins, the treated branch saphenous varicosities, the adjacent deep veins, and additional treatment within 7 days. PERSONNEL: Zak Olivia RN Electronically authenticated by: CALVIN TAN Date: 09/17/2023 13:18
== END 2023-09-17 10:45 | disposition home or self-care (01) ==
LOC: VC 10:44
PROVIDERS: PCP Radiology Diagnostic Radiology; Visit Provider Radiology Diagnostic Radiology
DX: I83.813 Varicose veins of bilateral lower extremities with pain (principal)
CPT/HCPCS: 36466

== ENCOUNTER 2023-09-25 09:25 | Outpatient (OUT) | payer MEDICARE, OTHER, SELFPAY ==
--- NOTE | 2023-09-25 09:27 | VEIN_ITS ---
Patient Name: JOSE GONZALEZ MR#: [id number] : 1950 Exam Date: 09/25/2023 Ordering Doctor: DR JAMES ESPINOZA M.D. RADIOLOGY REPORT PROCEDURE: [facility] - OFFICE VISIT FOLLOW UP COMPARISON: [facility], 09/09/2023. PROGRESS NOTES: The patient reports improvement in leg symptoms. There has been interval reduction in varicosities. The patient has followed our recommendations to walk 20-30 minutes once or twice per day since the procedure. Physical exam demonstrates decrease in varicosities of the left leg. Persistent varicosities are identified along the right leg. Review of the ultrasound performed the same day demonstrates occlusive thrombus extending throughout the treated vein(s), see separate report, consistent with a successful ablation. No thrombus extending into or beyond the saphenofemoral junction. The patient expressed a desire to proceed with treatment of remaining incompetent varicosities. The patient was informed that treatment was a process and would require 1-2 procedures/sessions. [facility]: 1. Successful ablation of the left leg treated branch saphenous vein(s). 2. Persistent right leg varicose veins and lower extremity symptoms. PLAN: Microfoam chemical ablation of right leg incompetent branch saphenous varicosities. Nurse notes, history and physical were reviewed and confirmed, see attached forms. The nurse was present throughout the physical exam and consultation Dictated by: Calvin Tan M.D. on 09/25/2023 at 11:57 Approved by: Calvin Tan M.D. on 09/25/2023 at 11:59
--- NOTE | 2023-09-25 09:27 | VEIN_ITS ---
Patient Name: JOSE GONZALEZ MR#: [id number] : 1950 Exam Date: 09/25/2023 Ordering Doctor: DR JAMES ESPINOZA M.D. RADIOLOGY REPORT PROCEDURE: VC EXT VENOUS LT LIMITED COMPARISON: VC EXT VENOUS LT LIMITED, 08/16/2023. INDICATIONS: I80.02 Phlebitis of superficial veins of left lower extremity TECHNIQUE: Lower extremity anderson scale and Duplex Doppler evaluation of the deep venous system from the inguinal ligament through the calf veins. FINDINGS: REGION: Left lower extremity. THROMBI: Negative for DVT. Chemically induced thrombus in multiple varicose veins. COMPRESSIBILITY: Non-compressible segments corresponding to thrombus FLOW: Areas of no flow corresponding to thrombus OTHER: Patent varicose vein anterior/mid lower leg measures 2.8 mm. Varicose vein mid posterior calf measures 2.5 mm. CONCLUSION: 1. Successful post ablation occlusion of left leg treated branch saphenous varicosities. Dictated by: Calvin Tan M.D. on 09/25/2023 at 11:08 Approved by: Calvin Tan M.D. on 09/25/2023 at 11:57
--- OUTSIDE RECORDS SUMMARY | 2023-09-25 09:46 | XMS_ITS | CCD ---
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 Name Role Phone Mt GOODEN Primary Care Physician Pcp, No Primary Care Provider UnavailThao Jones DO(Historical) Unavailable Unavailable Mt Gooden DO Primary Care Provider KATRINA URENA Referring Unavailable SKY HOWE Attending Unavailable KATRINA URENA Referring Unavailable KATRINA URENA Attending Unavailable MT GOODEN Primary Care Unavailable IVETTE, JUMA Referring Unavailable KAPMT MENDIOLA Primary Care Unavailable IVETTE, JUMA Referring Unavailable KAPMT MENDIOLA Primary Care Unavailable IVETTE, JUMA Referring Unavailable KAPMT MENDIOLA Primary Care Unavailable IVETTE, JUMA Attending Unavailable IVETTE, JUMA Attending Unavailable CopseyYeeia Attending Unavailable Kalli Min Admitting Unavailable Mt Gooden Primary Care Unavailable Mt GOODEN Referring Unavailable Pawan Laureano Attending Unavailable MD Pawan Laureano Admitting Unavailable Mt GOODEN Referring Unavailable MurilloMatty fung Attending Unavailable NONE, XXXX Referring Unavailable MurilloMatty fung Attending Unavailable Mt GOODEN Referring Unavailable Mt GOODEN Attending Unavailable Al-Marraalfonzo, Azra Yalink Attending Unavailabl e Kate Eaton Referring Unavailable Al-Marrawi, Mickd Yaser Attending Unavailabl e Al-MarraAzra mejía Attending Unavailabl Mt [place] Attending Unavailable Murillo, Basejessica GJase Referring Unavailable MurilloMatty Attending Unavailable MurilloMatty fung Admitting Unavailable Mt GOODEN Admitting Unavailable Joycelyn CHERRY Attending Unavailable Al-Marrawi, Mickd Yaser Attending Unavailabl e Al-Marrawi, Mhd Yaser Admitting Unavailabl e KAPLE, Mt A Attending Unavailable KAPLE, Mt A Admitting Unavailable Al-Marrawi, Mhd Yaser Attending Unavailabl e Al-Marrawi, Mhd Yaser Admitting Unavailabl e KAPLE, Mt A Attending Unavailable KAPLE, Mt A Admitting Unavailable KAPLE, Mt A Attending Unavailable KAPLE, Mt A Admitting Unavailable Al-Marrawi, Mhd Yaser Attending Unavailabl e Al-Marrawi, Mhd Yaser Admitting Unavailabl e Marcell Jensen Consulting Unavaila ble Mousssocorro, Ahmad Attending Unavailable Moussawi, Ahmad Admitting Unavailable Marcell Jensen Consulting Unavaila ble Marcell Jensen Consulting Unavaila ble Dick Mohgwendolyn FJase Consulting Unavailable Dick, Mohamed FJase Consulting Unavailable Dick, Mohamed FJase Consulting Unavailable Keivn Brizuela Attending Unavailable Mt GOODEN Referring Unavailable Pawan Laureano Attending Unavailable MD Pawan Laureano Admitting Unavailable Pawan Laureano Referring Unavailable Pawan Laureano Attending Unavailable MD Pawan Laureano Admitting Unavailable MuirlloMatty GJase Referring Unavailable MurilloMatty montano GJase Attending Unavailable COPSEY KALLI Referring Unavailable COPYEE THAPAIA Attending Unavailable COPYEE THAPAIA Admitting Unavailable KAPLE, Mt A Referring Unavailable KAPMARLENA, Mt A Attending Unavailable KAPLE, Mt A Admitting Unavailable KAPLE, Mt A Attending Unavailable KAPLE, Mt A Attending Unavailable KAPLE, Mt Morillo Attending Unavailable Kevin LOBO Attending Unavailable KAPLE, Mt Morillo Attending Unavailable KAPLE, Mt A Attending Unavailable KAPLE, Mt A Attending Unavailable KAPLE, Mt A Attending Unavailable KAPLE, Mt A Attending Unavailable Arturo Alvarez Attending Unavailable Jordan Dean Attending Unavailable Osvaldo Garza Referring Unavailable Bryce Lieberman Attending Unavailable Allergies Allergy Classification Reported Allergen(s) Allergy Type Date of Onset Reaction(s) Facility (20 sources) Azithromycin; Translations: [azithromycin] Drug Allergy 06-08-2022 [facility] (1 source) Azithromycin Drug Allergy 05-16-2023 [facility] Repository Medications Current Medications Medication Drug [...] Status: Ordered apixaban 5 mg oral tablet (20 sources) Factor Xa Inhibitor Start: 03-04-2023 take 1 tablet by mouth twice daily Eliquis 5 mg oral tablet 5 mg = 1 tab(s), Oral, BID, # 180 tab(s), Refills(s) 3, Pharmacy: [facility]/pharmacy #[id number], 185, cm, 04/09/23 10:08:00 EDT, Height/Length Dosing, 154.1, kg, 04/09/23 10:08:00 EDT, Weight Dosing Start Date: 04/09/23 Status: Ordered Start: 02-19-2023 Eliquis 5 mg o ral tablet 2 tabs (10 mg) BID x 7 days then 1 tab bid, Oral, BID, initial fill only, # 74 tab(s), Refills(s) 0, Pharmacy: [facility]/pharmacy #[id number], 182, cm, 02/18/23 9:01:00 EDT, Height/Length [...] day(s), # 28 cap(s), Refills(s) 0, Pharmacy: [facility]/pharmacy #[id number], 185.4, cm, 03/13/23 2:24:00 EDT, Height/Length Dosing, 154.7, kg, 03/13/23 2:24:00 EDT, Weight Dosing Start Date: 03/13/23 Stop Date: 03/20/23 Status: Ordered Start: 12-02-2022 take 1 capsule by mo [facility] every eight hours cephalexin 500 mg Cap 500 mg = 1 cap(s), Oral, q8hr, # 30 cap(s), Refills(s) 0, Pharmacy: [facility]/pharmacy #[id number], 182, cm, 12/02/22 12:12:00 EDT, Height/Length [...] day(s), # 10 tab(s), Refills(s) 0, Pharmacy: [facility]/pharmacy #[id number], 185, cm, 06/22/22 11:58:00 EST, Height/Length Dosing, 146.3, kg, 06/22/22 11:58:00 EST, Weight Dosing Start Date: 06/22/22 Stop Date: 07/02/22 Status: Ordered Start: 12-14-2021 take 1 tablet by [facility] at bedtime cyclobenzaprine 10 mg Tab 10 mg = 1 tab(s), Oral, Bedtime, # 30 tab(s), Refills(s) 1, Pharmacy: [facility]/pharmacy #[id number], 185, cm, 12/14/21 15:11:00 EDT, Height/Length Dosing, 144.7, kg, 12/14/21 15:11:00 EDT, Weight Dosing Start Date: 12/14/21 Status: Ordered doxycycline hyclate 100 mg oral capsule (1 source) Tetracycline-class Drug Start: 08-22-2021 take 1 capsule by mouth twice daily doxycycline hyclate 100 mg Cap 100 mg = 1 cap(s), Oral, BID, # 20 cap(s), Refills(s) 0, Pharmacy: [facility]/pharmacy #[id number], 185, cm, 08/22/21 9:05:00 EST, Height/Length Dosing, 145.2, kg, 08/22/21 9:05:00 EST, Weight Dosing Start Date: 08/22/21 Status: Ordered famotidine 40 mg oral tablet (20 sources) Histamine-2 Receptor Antagonist Start: 06-03-2023 take 1 tablet by mouth once daily at bedtime famotidine 40 mg Tab 40 mg = 1 tab(s), Oral, Once a day (at bedtime), # 90 tab(s), Refills(s) 3, [id number], cm, 06/03/23 13:45:00 EDT, Height/Length Dosing, 146.6, kg, 06/03/23 13:45:00 EDT, Weight Dosing Start Date: 06/03/23 Status: Ordered Start: 01-22-2022 take 1 tablet by nicolas th once daily at bedtime famotidine 40 mg Tab 40 mg = 1 tab(s), Oral, Once a day (at bedtime), # 90 tab(s), Refills(s) 3, Pharmacy: [facility]/pharmacy #[id number], 182, cm, 12/10/22 10:07:00 EDT, Height/Length Dosing, 154.8, kg, 12/10/22 10:07:00 EDT, Weight Dosing Start Date: 12/31/22 Status: Ordered Start: 12-08-2020 take 1 tablet by nicolas th once daily at bedtime famotidine 40 mg Tab 40 mg = 1 tab(s), Oral, Once a day (at bedtime), # 90 tab(s), Refills(s) 3, Pharmacy: [facility]/pharmacy #[id number], 185, cm, 10/21/20 9:58:00 EST, Height/Length Dosing, 148.8, kg, 10/21/20 9:57:00 EST, Weight Dosing Start Date: 12/08/20 Status: Ordered Comment on above: Take 40 mg by mouth daily at bedtime. fluticasone propionate 0.05 mg/actuat metered dose nasal spray (20 sources) Corticosteroid Start: 3 Flonase 0.05 mg/inh [place] 2 spray(s), Nasal, Daily, 16 gram, Refill(s) 11, each nostril, [facility]/pharmacy #[id number], 182, cm, 11/08/22 10:10:00 EDT, Height/Length Dosing, 151.1, kg, 11/08/22 10:10:00 EDT, Weight Dosing Start Date: 11/08/22 Status: Ordered Comment on above: Use in the nose. furosemide 40 mg oral tablet (20 sources) Loop Diuretic Start: 3 take 1 tablet by mouth once daily as needed for edema Lasix 40 mg Tab 40 mg = 1 tab(s), Oral, Daily, PRN Edema, # 90 tab(s), Refills(s) 3, Pharmacy: [facility]/pharmacy #[id number], 182, cm, 06/03/23 13:45:00 EDT, Height/Length Dosing, 146.6, kg, 06/03/23 13:45:00 EDT, Weight Dosing Start Date: 06/03/23 Status: Ordered Start: 12-18-2022 take 1 tablet by nicolas th once daily as needed for edema Lasix 40 mg Tab 40 mg = 1 tab(s), Oral, Daily, PRN Edema, # 30 tab(s), Refills(s) 5, Pharmacy: [facility]/pharmacy #[id number], 182, cm, 12/10/22 10:07:00 EDT, Height/Length Dosing, 154.8, kg, 12/10/22 10:07:00 EDT, Weight Dosing Start Date: 12/18/22 Status: Ordered gabapentin 100 mg oral capsule (2 sources) Anti-epileptic Agent Start: 11-30-2020 take 1 capsule by mouth once daily gabapentin 100 mg Cap 100 mg = 1 cap(s), Oral, Daily, # 30 cap(s), Refills(s) 3, Pharmacy: [facility]/pharmacy #[id number], 185, cm, 10/21/20 9:58:00 EST, Height/Length Dosing, 148.8, kg, 10/21/20 9:57:00 EST, Weight Dosing Start Date: 11/30/20 Status: Ordered hydrocortisone 25 mg/ml rectal cream (20 sources) Corticosteroid Start: 01-23-2023 hydrocortisone 2.5% Rectal Crm w/Appl 1 lorenzo, Rectal, BID, 30 gram, Refill(s) 0 Start Date: 01/23/23 Status: Ordered lisinopril 10 mg oral tablet (20 sources) Angiotensin Converting Enzyme Inhibitor Start: 05-05-2023 take 1 tablet by mouth once daily lisinopril 10 mg Tab 10 mg = 1 tab(s), Oral, Daily, # 90 tab(s), Refills(s) 3, Pharmacy: [facility]/pharmacy #[id number], 185, cm, 04/09/23 10:08:00 EDT, Height/Length Dosing, 154.1, kg, 04/09/23 10:08:00 EDT, Weight Dosing Start Date: 05/05/23 Status: Ordered Start: 10-14-2020 take 1 tablet by nicolas th once daily lisinopril 10 mg Tab 10 mg = 1 tab(s), Oral, Daily, # 90 tab(s), Refills(s) 1, Pharmacy: [facility]/pharmacy #[id number], 185, cm, 03/15/22 8:30:00 EDT, Height/Length Dosing, 146, kg, 03/15/22 8:30:00 EDT, Weight Dosing Start Date: 04/20/22 Status: Ordered Comment on above: Take by mouth. metFORMIN hydrochloride 1000 mg oral tablet (20 sources) Biguanide Start: 12-31-2022 take 1 tablet by mouth twice daily metformin 1000 mg Tab 1,000 mg = 1 tab(s), Oral, BID, # 180 tab(s), Refills(s) 3, Pharmacy: [facility]/pharmacy #[id number], 182, cm, 12/10/22 10:07:00 EDT, Height/Length Dosing, 154.8, kg, 12/10/22 10:07:00 EDT, Weight Dosing Start Date: 12/31/22 Status: Ordered Start: 12-10-2022 take 1 tablet by nicolas th twice daily metformin 1000 mg Tab 1,000 mg = 1 tab(s), Oral, BID, # 180 tab(s), Refills(s) 3, Pharmacy: [facility]/pharmacy #[id number], 182, cm, 12/10/22 10:07:00 EDT, Height/Length Dosing, 154.8, kg, 12/10/22 10:07:00 EDT, Weight Dosing Start Date: 12/10/22 Status: Ordered Start: 10-06-2021 take 1 tablet by nicolas th once daily metFORMIN (GLUCOPHAGE) 1,000 mg tablet Take 1,000 mg by mouth once daily. 0 10/01/2022 Active Comment on above: Take 1,000 mg by nicolas th once daily. methocarbamol 500 mg oral tablet (16 sources) Muscle Relaxant Start: 09-05-2023 take 2 tablets by mouth four times daily as needed for muscle spasms Robaxin 500 mg Tab 1,000 mg = 2 tab(s), Oral, QID, PRN Spasm, # 100 tab(s), Refills(s) 3, [id number], 185, cm, 09/05/23 9:38:00 EST, Height/Length Dosing, 143, kg, 09/05/23 9:38:00 EST, Weight Dosing Start Date: 09/05/23 Status: Ordered Start: 02-19-2023 End: 03-05-2023 take 2 tablets by mouth four times daily as needed for muscle spasms Robaxin 500 mg Tab 1,000 mg = 2 tab(s), Oral, QID, PRN spasm, # 120 tab(s), Refills(s) 0, [id number], 182, cm, 03/01/23 13:14:00 EDT, Height/Length Dosing, 153.1, kg, 03/01/23 13:14:00 EDT, Weight Dosing Start Date: 03/04/23 Status: Ordered methylPREDNISolone 4 mg oral tablet (1 source) Corticosteroid Start: 12-14-2021 End: 01-01-2022 Medrol 4 mg Tab = 1 packet(s), Oral, As Directed, as directed on package labeling, X 6 day(s), # 21 tab(s), Refills(s) 2, Pharmacy: [facility]/pharmacy #[id number], 185, cm, 12/14/21 15:11:00 EDT, Height/Length Dosing, 144.7, kg, 12/14/21 15:11:00 EDT, Weight Dosing Start Date: 12/14/21 Stop Date: 01/01/22 Status: Ordered Multi Vitamins oral tablet (3 sources) Start: 11-21-2016 take 1 tablet by mouth once daily Multi Vitamins oral tablet 1 tab(s), Oral, Daily, Refill(s) 0, Prophylaxis Start Date: 11/21/16 Status: Ordered Aleve (1 source) Nonsteroidal Anti-inflammatory Drug Start: 06-22-2022 take 1 mg by mouth every twelve hours Aleve mg, Oral, q12hr, Refills(s) 0 Start Date: 06/22/22 Status: Ordered omeprazole 40 mg delayed release oral capsule (20 sources) Proton Pump Inhibitor Start: 11-20-2021 take 1 capsule by mouth once daily omeprazole 40 mg Cap-DR 40 mg = 1 cap(s), Oral, Daily, # 90 cap(s), Refills(s) 3, Pharmacy: [facility]/pharmacy #[id number], 182, cm, 11/08/22 10:10:00 EDT, Height/Length Dosing, 151.1, kg, 11/08/22 10:10:00 EDT, Weight Dosing Start Date: 11/15/22 Status: Ordered Comment on above: Take 40 mg by mouth once daily. omeprazole 40 mg Cap-DR (2 sources) Start: 11-20-2021 take 1 capsule by mouth once daily omeprazole 40 mg Cap-DR 40 mg = 1 cap(s), Oral, Daily, # 90 cap(s), Refills(s) 3, Pharmacy: [facility]/pharmacy #[id number], 182.9, cm, 09/18/21 11:36:00 EST, Height/Length Dosing, 142.1, kg, 09/18/21 11:36:00 EST, Weight Dosing Start Date: 11/20/21 Status: Ordered pioglitazone 30 mg oral tablet (20 sources) Peroxisome Proliferator Receptor alpha Agonist, Peroxisome Proliferator Receptor gamma Agonist, Thiazolidinedione Start: 07-02-2023 take 1 tablet by mouth once daily pioglitazone 30 mg Tab 30 mg = 1 tab(s), Oral, Daily, # 90 tab(s), Refills(s) 3, Pharmacy: [facility]/pharmacy #[id number], 185, cm, 06/26/23 9:53:00 EST, Height/Length Dosing, 147, kg, 06/26/23 9:53:00 EST, Weight Dosing Start Date: 07/02/23 Status: Ordered Start: 06-03-2023 take 1 tablet by nicolas th once daily pioglitazone 30 mg Tab 30 mg = 1 tab(s), Oral, Daily, # 90 tab(s), Refills(s) 3, [id number] 182, cm, 06/03/23 13:45:00 EDT, Height/Length Dosing, 146.6, kg, 06/03/23 13:45:00 EDT, Weight Dosing Start Date: 06/03/23 Status: Ordered Start: 11-08-2022 [facility] Actos 45 mg Tab 45 mg = 1 tab(s), Oral, Daily, # 90 tab(s), Refills(s) 3, [id number] 182, cm, 11/08/22 10:10:00 EDT, Height/Length Dosing, 151.1, kg, 11/08/22 10:10:00 EDT, Weight Dosing Start Date: 11/08/22 Status: Ordered Start: 05-10-2022 take 1 tablet by nicolas once daily Actos 15 mg Tab 15 mg = 1 tab(s), Oral, Daily, # 90 tab(s), Refills(s) 3, [id number] 185, cm, 03/15/22 8:30:00 EDT, Height/Length Dosing, 146, kg, 03/15/22 8:30:00 EDT, Weight Dosing Start Date: 05/10/22 Status: Ordered Start: 07-22-2020 take 1 tablet by nicolas once daily Actos 15 mg Tab 15 mg = 1 tab(s), Oral, Daily, # 90 tab(s), Refills(s) 3, [id number], 185, cm, 07/22/20 10:49:00 EST, Height/Length Dosing, 148.4, kg, 07/22/20 10:49:00 EST, Weight Dosing Start Date: 12/11/20 Status: Ordered polyethylene glycol 3350 728446 mg / potassium chloride 1480 mg / sodium bicarbonate 5720 mg / sodium chloride 44218 mg powder for oral solution (16 sources) Osmotic Laxative Start: 01-23-2023 NuLYTELY Mendez oral powder for reconstitution See Instructions, 1 EA, Refill(s) 0, See physician instructions prior to procedure., [facility]/pharmacy #[id number], 185, cm, 01/23/23 9:12:00 EDT, Height/Length Dosing, 152.1, kg, 01/23/23 9:12:00 EDT, Weight Dosing Start Date: 01/23/23 Status: Ordered predniSONE 20 mg oral tablet (1 source) Start: 06-22-2022 End: 06-29-2022 take 2 tablets by mouth once daily predniSONE 20 mg Tab 40 mg = 2 tab(s), Oral, Daily, X 7 day(s), # 14 tab(s), Refills(s) 0, [id number] 185, cm, 06/22/22 11:58:00 EST, Height/Length [...] Daily, # 90 tab(s), Refills(s) 1, Pharmacy: [facility]/pharmacy #[id number], 185, cm, 06/22/22 11:58:00 EST, Height/Length Dosing, 146.3, kg, 06/22/22 11:58:00 EST, Weight Dosing Start Date: 07/02/22 Status: Ordered Start: 05-03-2021 take 1 tablet by nicolas th once daily Januvia 100 mg Tab 100 mg = 1 tab(s), Oral, Daily, # 90 tab(s), Refills(s) 1, Pharmacy: [facility]/pharmacy #[id number], 185, cm, 12/14/21 15:11:00 EDT, Height/Length Dosing, 144.7, kg, 12/14/21 15:11:00 EDT, Weight Dosing Start Date: 12/15/21 Status: Ordered tamsulosin hydrochloride 0.4 mg oral capsule (2 sources) alpha-Adrenergic Monse Start: 09-05-2023 take 1 capsule by mouth once daily Flomax 0.4 mg Cap 0.4 mg = 1 cap(s), Oral, Daily, # 90 cap(s), Refills(s) 3, Pharmacy: [facility]/pharmacy #[id number], 185, cm, 09/05/23 9:38:00 EST, Height/Length Dosing, 143, kg, 09/05/23 9:38:00 EST, Weight Dosing Start Date: 09/05/23 Status: Ordered Completed/Discontinued Medications Medication Drug Class(es) [...] chloride 20 meq extended release oral tablet (20 sources) Start: 06-03-2023 take 1 tablet by mouth once daily as needed for edema potassium chloride 20 mEq ER Tab 20 mEq = 1 tab(s), Oral, Daily, PRN Edema, Take on the days he takes Lasix, # 90 tab(s), Refills(s) 3, Pharmacy: [facility]/pharmacy #[id number], 182, cm, 06/03/23 13:45:00 EDT, Height/Length Dosing, 146.6, kg, 06/03/23 13:45:00 EDT, Weight Dosing Start Date: 06/03/23 Status: Ordered Start: 12-18-2022 take 1 tablet by [facility] once daily as needed for edema potassium chloride 20 mEq ER Tab 20 mEq = 1 tab(s), Oral, Daily, PRN Edema, Take on the days he takes Lasix, # 30 tab(s), Refills(s) 5, Pharmacy: [facility]/pharmacy #[id number], 182, cm, 12/10/22 10:07:00 EDT, Height/Length [...] mellitus without complication] Onset: 2 09-12-2020 Chronic E Codes: Fall (2 sources) Fall on same level from slipping, tripping or stumbling ; Translations: [Fall on same level from slipping, tripping and stumbling without subsequent striking against object, initial encounter] Onset: 4 Episodic E Codes: Fall (2 sources) Accidental fall 09-24-2023 Esophageal disorders (20 sources) Mccarty's esophagus; Translations: [...] unspecified buttock, initial encounter] Onset: 3 Episodic Osteoarthritis (4 sources) Osteoarthritis of joint of left shoulder region; Translations: [Osteoarthritis of right hip joint] 09-05-2023 Chronic Other acquired deformities (1 source) Stenosis of intervertebral foramina 09-24-2023 Episodic Other aftercare (20 sources) Long-term current use of anticoagulant 02-20-2021 Episodic Other aftercare (1 source) Long-term current use of oral hypoglycemic medication; Translations: [penitentiary (current) use of oral hypoglycemic drugs] Onset: [...] Chronic Other diseases of veins and lymphatics (17 sources) Disorder of vein of lower extremity [...] hearing-aid] Onset: 3 Episodic Other gastrointestinal disorders (19 sources) Constipation 02-18-2023 Episodic Other gastrointestinal disorders (1 source) Constipation, unspecified; Translations: [Constipation, unspecified] Onset: 3 Episodic Other hematologic conditions (20 sources) Increased serum protein level 09-10-2022 Episodic Other hematologic conditions (2 sources) Abnormal finding on evaluation procedure; Translations: [Abnormality of plasma protein, unspecified] Onset: 3 Episodic Other injuries and conditions due to external causes (1 source) Injury of head; Translations: [Unspecified injury of head, initial encounter] Onset: 4 Episodic Other liver diseases (1 source) Increased aspartate transaminase level; Translations: [Elevation of levels of liver transaminase levels] Onset: 3 Episodic Other liver diseases (2 sources) Elevated liver enzymes level 12-10-2022 Episodic Other lower respiratory disease (20 sources) Rib pain 02-20-2021 Episodic Other lower respiratory disease (14 sources) Dyspnea; Translations: [Shortness of breath] Onset: 3 Episodic Other lower respiratory disease (20 sources) Orthopnea; Translations: [Orthopnea] Onset: 3 Episodic [...] edema] Onset: 3 Episodic Residual codes; unclassified (20 sources) Bilateral lower limb edema 12-10-2022 Episodic Respiratory failure; insufficiency; arrest (adult) (18 sources) Chronic hypoxemic respiratory failure; Translations: [Chronic [...] pain] Onset: 2 Resolved: 9 02-20-2021 Episodic Superficial injury; contusion (2 sources) Superficial injury of head; Translations: [Contusion of other part of head, initial encounter] Onset: 4 Episodic Unclassified (20 sources) Long-term current use of drug therapy 09-12-2020 Unclassified (20 sources) Patient encounter status 10-21-2020 Unclassified (1 source) Non-pressure chronic ulcer of unspecified part of right lower leg limited to breakdown of skin; Translations: [Non-pressure chronic ulcer of unspecified part of right lower leg limited to breakdown of skin] Onset: 3 Results Test Name Value Interpretation Reference Range Facil ity ED Traumaon 09-23-2023 ED Trauma [id number]#1.00 TIFF Normal [facility] ED Traumaon 09-22-2023 ED Trauma [id number]#1.00T IFF Normal [facility] ED Note-Physicianon 09-21-19 ED Note-Physician [facility] Comment on above: Result Comment: Elec tronically Signed By: Deshawn Rollins PA-C\.br\Date and Time Signed: 09/20/23 15:46 EST\.br\Electronically Co-Signed By: Kevin Brizuela DO\.br\Date and Time Co-Signed: 09/21/23 07:12 EST Monitor Recordon 09-21-2023 Monitor Record [id number]#1.00 TIFF Normal [facility] CT Head or Brain w/o Contras ton 09-20-2023 CT Head or Brain w/o Contrast Normal [facility] CT Spine Cervical w/o Contra ston 09-20-2023 CT Spine Cervical w/o Contrast Normal [facility] Consent for Treatmenton Consent for Treatment [id number]#1.00T IFF Normal [facility] Discharge Instructionson Discharge Instructions [id number]#1.00 TIFF Normal [facility] ED Clinical Summaryon 2023 ED Clinical Summary Normal [facility] ED Patient Education Noteon 09-20-2023 ED Patient Education Note Normal [facility] ED Patient Summaryon ED Patient Summary Normal [facility] PT - Assessmentson PT - Assessments [id number]#1.00T IFF Normal [facility] PT - Assessments [id number]#1.00T IFF Normal [facility] PT - Consentson 09-13-2023 PT - Consents [id number]#1.00T IFF Normal [facility] RAD - Ultrasound Reporton RAD - Ultrasound Report [id number]#1.00T IFF Normal [facility] Consent for Treatmenton Consent for Treatment [id number]#1.00T IFF Normal [facility] RAD - MISCon 09-09-2023 RAD - MISC [id number]#1.00T IFF Normal [facility] Ambulatory Visit Summaryon 09-05-2023 Ambulatory Visit Summary Normal [facility] Family Medicine Office/Clini c Noteon 09-05-2023 Family Medicine Office/Clinic Note Normal [facility] Comment on above: Result Comment: Elec tronically Signed By: Mt GOODEN DO, FAAFP\Date and Time Signed: 09/05/23 10:22 EST Patient Educationon 09-05-19 Patient Education Normal [facility] CHEMISTRYOrdered By: SYSTEM SYSTEM on 09-04-2023 Albumin [...] (Bld) [Mass fraction] 6.2 % High <=5.9% [facility] ChemAutoSS Consent for Treatmenton 08-13 Consent for Treatment [id number]#1.00T IFF Normal [facility] Hep Func Panelon 09-04-2023 Albumin/Globulin [Mass ratio] 1.2 {ratio} Normal 1.1-2.2 [facility] Comment on above: Performed By: #### 7 [id number], [id number] ####[facility] [address] [place] [address] Globulin (S) [Mass/Vol] 3.3 g/dL Normal 1.4-4.0 [facility] Comment on above: Performed By: #### 7 [id number], [id number] ####[facility] [address] [place] [address] Protein [Mass/Vol] 7.4 g/dL Normal 6.0-7.8 [facility] Comment on above: Performed By: #### 7 [id number], 4499755 ####[address] [address] Albumin [Mass/Vol] 4.1 g/dL Normal 3.3-5.0 [facility] Comment on above: Performed By: #### 7 [id number], 0405485 ####[facility] [address] [place] [address] Alk Phos 46 Int._Unit/L Normal 21-98 [facility] Comment on above: Performed By: #### 7 [id number], 7089988 ####[facility] [address] [place] [address] ALT 23 Int._Unit/L Normal 6-46 [facility] Comment on above: Performed By: #### 7 [id number], 8446833 ####[facility] [address] [facility] [place] [address] AST 26 Int._Unit/L Normal 5-43 [facility] Comment on above: Performed By: #### 7 [id number], 8765602 ####[facility] [address] [place] [address] Bili Direct 0.1 mg/dL Normal 0.0-0.4 [facility] Comment on above: Performed By: #### 7 [id number], 5963340 ####[facility] [address] [place] [address] Bili Indirect 0.4 mg/dL Normal 0.1-0.9 [facility] Comment on above: Performed By: #### 7 [id number], 3791032 ####[place] [facility] [address] [place] [address] Bili Total 0.5 mg/dL Normal 0.0-1.1 [facility] Comment on above: Performed By: #### 7 [id number], 5459490 ####[place] [facility] [address] [place] [address] UxcW5kyg 09-04-2023 HbA1c (Bld) [Mass fraction] 6.2 % High <=5.9 [facility] Comment on above: Performed By: #### 7 [id number], 8035584 ####[facility] [address] [place] [address] Ambulatory Visit Summaryon 0 08-26-2023 Ambulatory Visit Summary Normal [address] [facility], [facility] [place] [address]- \.br\ Medications\.br\ What How Much When Why Instructions\.br\ Unchanged acetaminophen (Tylenol 325 mg Tab) 1 Tablets By Mouth Once\.br\ Unchanged apixaban (Eliquis 5 mg oral tablet) 1 Tablets By Mouth 2 times a day Multiple subsegmental pulmonary emboli without acute cor pulmonale\.br\ Unchanged aspirin (aspirin 81 mg Chew Tab) 1 Tablets By Mouth Every day Pulmonary embolism on right\.br\ Unchanged famotidine (famotidine 40 mg Tab) 1 Tablets By Mouth Once a day (at bedtime)\.br\ Unchanged fluticasone nasal (Flonase 0.05 mg/ inh [place]) 2 Sprays Nasal Inhalation Every day Allergic rhinitis each nostril \.br\ Unchanged furosemide (Lasix 40 mg Tab) 1 Tablets By Mouth Every day as needed for Edema Edema of both legs\.br\ Unchanged hydrocortisone topical (hydrocortisone 2.5% Rectal Crm w/ Appl) 1 Application By rectum 2 times a day Anal fissure\.br\ Unchanged lisinopril (lisinopril 10 mg Tab) 1 Tablets By Mouth Every day\.br\ Unchanged metformin (metformin 1000 mg Tab) 1 Tablets By Mouth 2 times a day\.br\ Unchanged omeprazole (omeprazole 40 mg Cap-DR) 1 Capsules By Mouth Every day Gastroesophageal reflux disease with hiatal hernia\.br\ Unchanged pioglitazone (pioglitazone 30 mg Tab) 1 Tablets By Mouth Every day Type 2 diabetes mellitus with morbid obesity\.br\ Unchanged potassium chloride (potassium chloride 20 mEq ER Tab) 1 Tablets By Mouth Every day as needed for Edema Edema of both legs Take on the days he takes Lasix \.br\ Allergies\.br\ Zithromax Z-Davey (hives/welts)\.br \ Problems\.br\ Ongoing - Any problem that you are currently receiving treatment for.\.br\ Allergic rhinitis\.br\ Aortic ectasia\.br\ Arthritis, lumbar spine\.br\ Mccarty's esophagus with dysplasia\.br\ BPH associated with nocturia\.br\ Chronic respiratory failure with hypoxia\.br\ Constipation\.br\ Edema of both legs\.br\ Essential hypertension\.br\ Gastroesophageal reflux disease with hiatal hernia\.br\ High serum protein level\.br\ 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 br\ Hx of pulmonary embolus\.br\ kidney stones\.br\ Left shoulder pain\.br\ penitentiary (current) use of anticoagulants\.b r\ Lumbago\.br\ Lumbar radiculopathy, chronic\.br\ Morbid obesity due to excess calories\.br\ Pulmonary embolism on right\.br\ Rib pain on right side\.br\ Spasm of muscle of lower back\.br\ Vertigo, benign paroxysmal\.br\ Patient Survey\.br\ You may receive a survey via text or e-mail asking about your office visit. Please share your experience with us by completing your survey. We appreciate your feedback and thank you for choosing us for your care.\.br\ Education Materials\.br\ Fall Prevention in the Home, Adult\.br\ Falls can cause injuries and affect people of all ages. There are many simple things that you can do to make your home safe and to help prevent falls. Ask for help when making these changes, if needed.\.br\ What actions can I take to prevent falls?\.br\ General instructions\.br\ ? \.br\ Use good lighting in all rooms. Replace any light bulbs that burn out, turn on lights if it is dark, and use night-lights.\.br \ ? \.br\ Place frequently used items in sarl-ts-jrvfj places. Lower the shelves around your home if necessary.\.br\ ? \.br\ Set up furniture so that there are clear paths around it. Avoid moving your furniture around.\.br\ ? \.br\ Remove throw rugs and other tripping hazards from the floor.\.br\ ? \.br\ Avoid walking on wet floors.\.br\ ? \.br\ Fix any uneven floor surfaces.\.br\ ? \.br\ Add color or contrast paint or tape to grab bars and handrails in your home. Place contrasting color strips on the first and last steps of staircases.\.br\ ? \.br\ When you use a stepladder, make sure that it is completely opened and that the sides and supports are firmly locked. Have someone hold the ladder while you are using it. Do not climb a closed stepladder.\.br\ ? \.br\ Know where your pets are when moving through your home.\.br\ What can I do in the bathroom?\.br\ \.br\ \.br\ ? \.br\ Keep the floor dry. Immediately clean up any water that is on the floor.\.br\ ? \.br\ Remove soap buildup in the tub or shower regularly.\.br\ ? \.br\ Use nonskid mats or decals on the floor of the tub or shower.\.br\ ? \.br\ Attach bath mats securely with double-sided, nonslip rug tape.\.br\ ? \.br\ If you need to sit down while you are in the shower, use a plastic, nonslip stool.\.br\ ? \.br\ Install grab bars by the toilet and in the tub and shower. Do not use towel bars as grab bars.\.br\ What can I do in the bedroom?\.br\ ? \.br\ Make sure that a bedside light is easy to reach.\.br\ ? \.br\ Do not use oversized bedding that reaches the floor.\.br\ ? \.br\ Have a firm chair that has side arms to use for getting dressed.\.br\ What can I do in the kitchen?\.br\ ? \.br\ Clean up any spills right away.\.br\ ? \.br\ If you need to reach for something above you, use a sturdy step stool that has a grab bar.\.br\ ? \.br\ Keep electrical cables out of the way.\.br\ ? \.br\ Do not use floor vincentian or wax that makes floors slippery. If you must use wax, make sure that it is non-skid floor wax.\.br\ What can I do with my stairs?\.br\ ? \.br\ Do not leave any items on the stairs.\.br\ ? \.br\ Make sure that you have a light switch at the top and the bottom of the stairs. Have them installed if you do not have them.\.br\ ? \.br\ Make sure that there are handrails on both sides of the stairs. Fix handrails that are broken or loose. Make sure that handrails are as long as the staircases.\.br\ ? \.br\ Install non-slip stair treads on all stairs in your home.\.br\ ? \.br\ Avoid having throw rugs at the top or bottom of stairs, or secure the rugs with carpet tape to prevent them from moving.\.br\ ? \.br\ Choose a carpet design that does not hide the edge of steps on the stairs.\.br\ ? \.br\ Check any carpeting to make sure that it is firmly attached to the stairs. Fix any carpet that is loose or worn.\.br\ What can I do on the outside of my home?\.br\ ? \.br\ Use bright outdoor lighting.\.br\ ? \.br\ Regularly repair the edges of walkways and driveways and fix any cracks.\.br\ ? \.br\ Remove high doorway thresholds.\.br\ ? \.br\ Trim any shrubbery on the main path into your home.\.br\ ? \.br\ Regularly check that handrails are securely fastened and in good repair. Both sides of all steps should have handrails.\.br\ ? \.br\ Install guardrails along the edges of any raised decks or porches.\.br\ ? \.br\ Clear walkways of debris and clutter, including tools and rocks.\.br\ ? \.br\ Have leaves, snow, and ice cleared regularly.\.br\ ? \.br\ Use sand or salt on walkways during winter months.\.br\ ? \.br\ In the garage, clean u [facility] Family Medicine Office/Clini c Noteon 08-26-2023 Family Medicine Office/Clinic Note Normal [facility] Comment on above: Result Comment: Elec tronically Signed By: Mt GOODEN DO, FAAFP\.br\Date and Time Signed: 08/26/23 15:29 EST\.br\Electronically Co-Signed By: Joseluis Swanson\.br\Date and Time Co-Signed: 08/26/23 10:47 EST Patient Educationon 08-26-19 24 Patient Education Normal [facility] Screenson 08-26-2023 Screens [id number]#1.00T IFF Normal [facility] Physician Orderon 07-18-2023 Physician Order [id number]#1.00T IFF Normal [facility] Consent for Treatmenton Consent for Treatment [id number]#1.00T IFF Normal [facility] Heart and Vascular Office/Cl inic Noteon 07-17-2023 Heart and Vascular Office/Clinic Note Normal [facility] Comment on above: Result Comment: Elec tronically Signed By: Matty Murillo MD\.br\Date and Time Signed: 07/17/23 10:18 EST Pulmonary Function Studieson 07-15-2023 Pulmonary Function Studies Normal [facility] Comment on above: Result Comment: Elec tronically Signed By: Matty Murillo MD\.br\Date and Time Signed: 07/15/23 09:48 EST Consent for Treatmenton 06-13 Consent for Treatment [id number]#1.00T IFF Normal [facility] Pulmonary Function Testson 09-09-2022 Pulmonary Function Tests [id number]#1.00T IFF Normal [facility] Respiratory Therapy Noteson 07-10-2023 Respiratory Therapy Notes [id number]#1.00T IFF Normal [facility] Consent for Treatmenton 06-13 Consent for Treatment [id number]#1.00T IFF Normal [facility] Oncology Noteon 07-09-2023 Oncology Note Normal [facility] Comment on above: Result Comment: Elec tronically Signed By: Isabelle Soto RN\.br\Date and Time Signed: 07/09/23 10:41 EST Oncology Progress Noteon Oncology Progress Note Normal [facility] Auto Diffon 07-08-2023 Basophils/100 WBC (Bld) 0.7 % Normal 0.0-2.0 [facility] Comment on above: Order Comment: Order Added by Discern Expert. Performed By: #### 2 934185, 6945094, 12682200, 7307358 ####[facility] [address] [place] [address] Basophils/Leukocyte s Auto (Bld) [Pure # fraction] 0.1 E9/L Normal 0.0-0.2 [facility] Comment on above: Order Comment: Order Added by Discern Expert. Performed By: #### 2 003760, 0903210, 22473879, 8566028 ####[address] [place] [address] Eosinophils/100 WBC (Bld) 1.8 % Normal 0.0-8.0 [facility] Comment on above: Order Comment: Order Added by Discern Expert. Performed By: #### 2 582885, 7518066, 55628193, 1876970 ####[address] [address] Eosinophils/Leukocy [place] Auto (Bld) [Pure # fraction] 0.1 E9/L Normal 0.0-0.5 [facility] Comment on above: Order Comment: Order Added by Rudi Expert. Performed By: #### 2 529961, 6479202, 65610779, 1631496 ####[address] [address] Lymphocytes/100 WBC (Bld) 31.1 % Normal 14.0-50.0 [facility] Comment on above: Order Comment: Order Added by Discern Expert. Performed By: #### 2 568550, 2649463, 94525464, 7335448 ####[address] [address] Lymphocytes/Leukocy [place] Auto (Bld) [Pure # fraction] 2.5 E9/L Normal 1.0-4.0 [facility] Comment on above: Order Comment: Order Added by Discern Expert. Performed By: #### 2 070668, 9816179, 09436428, 4086197 ####[address] [address] Monocytes/100 WBC (Bld) 8.6 % Normal 4.0-14.0 [facility] Comment on above: Order Comment: Order Added by Rudi Expert. Performed By: #### 2 156061, 4692642, 18090520, 5144394 ####[address] [place] [address] Monocytes/Leukocyte s Auto (Bld) [Pure # fraction] 0.7 E9/L Normal 0.2-1.0 [facility] Comment on above: Order Comment: Order Added by Discern Expert. Performed By: #### 2 927610, 7885042, 11775445, 1048756 ####[address] [address] Neutrophils/100 WBC (Bld) 57.8 % Normal 36.0-75.0 [facility] Comment on above: Order Comment: Order Added by Discern Expert. Performed By: #### 2 348042, 1181928, 43946665, 1157379 ####[address] [address] Neutrophils/Leukocy [place] Auto (Bld) [Pure # fraction] 4.6 E9/L Normal 2.0-7.5 [facility] Comment on above: Order Comment: Order Added by Discern Expert. Performed By: #### 2 025606, 5405855, 88425517, 8293287 ####[address] [address] CBC w/ Auto Diffon 3 Erythrocyte distribution width (RBC) [Ratio] 15.1 % High 10.9-14.2 [facility] Comment on above: Performed By: #### 2 606873, 3770398, 13351407, 7001434 ####[address] [address] Hematocrit (Bld) [Volume fraction] 40.3 % Normal 37.7-49.0 [facility] Comment on above: Performed By: #### 2 553494, 2087704, 08598959, 0899469 ####[address] [address] Hemoglobin (Bld) [Mass/Vol] 13.2 g/dL Low 13.5-17.5 [facility] Comment on above: Performed By: #### 2 323990, 9852960, 26303131, 9209930 ####[address] [address] MCH (RBC) [Entitic mass] 31.1 pg Normal 27.0-34.0 [facility] Comment on above: Performed By: #### 2 884299, 3977068, 44907247, 8107557 ####[address] [address] MCHC (RBC) [Mass/Vol] 32.8 g/dL Normal 31.4-36.0 [facility] Comment on above: Performed By: #### 2 878487, 5611093, 61314201, 6548688 ####[address] [address] MCV (RBC) [Entitic vol] 94.6 fL Normal 80.0-100.0 [facility] Comment on above: Performed By: #### 2 196779, 6038763, 06395397, 7060001 ####[address] [address] Platelet mean volume (Bld) [Entitic vol] 7.9 fL Normal 6.4-10.8 [facility] Comment on above: Performed By: #### 2 305544, 3118646, 50888983, 1418836 ####[address] [address] Platelets (Bld) [#/Vol] 195.0 E9/L Normal 150.0-500.0 [facility] Comment on above: Performed By: #### 2 452725, 6893214, 36507196, 7264917 ####[address] [address] RBC (Bld) [#/Vol] 4.3 E12/L Normal 4.3-5.9 [facility] Comment on above: Performed By: #### 2 585446, 4932502, 52311524, 4017487 ####[address] [place] [address] WBC corrected for nucl RBC Auto (Bld) [#/Vol] 7.9 E9/L Normal 4.0-11.0 [facility] Comment on above: Performed By: #### 2 744438, 1189208, 39828233, 4499311 ####[address] [address] CMPon 07-08-2023 Albumin [Mass/Vol] 3.8 g/dL Normal 3.3-5.0 [facility] Comment on above: Performed By: #### 2 599383, 7619065, 33220969, 4133715 ####[address] [address] Albumin/Globulin (S) [Mass conc ratio] 0.9 Low 1.1-2.2 [facility] Comment on above: Performed By: #### 2 180430, 3904631, 62136610, 1625970 ####[address] [address] ALP [Catalytic activity/Vol] 52 Int._Unit/L Normal 21-98 [facility] Comment on above: Performed By: #### 2 059057, 7285782, 11831738, 8968785 ####[address] [address] ALT No additional P-5'-P [Catalytic activity/Vol] 36 Int._Unit/L Normal 6-46 [facility] Comment on above: Performed By: #### 2 206447, 1706748, 58249574, 8676065 ####[address] [place] [address] Anion gap [Moles/Vol] 14 mmol/L Normal 6-16 [facility] Comment on above: Performed By: #### 2 744788, 7582254, 46574798, 2009663 ####[address] [address] AST [Catalytic activity/Vol] 49 Int._Unit/L High 5-43 [facility] Comment on above: Performed By: #### 2 080127, 6533330, 19282052, 7830368 ####[facility] [address] [place] [address] Bilirubin [Mass/Vol] 0.5 mg/dL Normal 0.0-1.1 [facility] Comment on above: Performed By: #### 2 443908, 1789358, 92380979, 5853554 ####[facility] [address] [place] [address] Calcium [Mass/Vol] 9.4 mg/dL Normal 8.9-11.1 [facility] Comment on above: Performed By: #### 2 801789, 0215015, 73112334, 1996844 ####[facility] [address] [place] [address] Chloride [Moles/Vol] 100 mmol/L Low 101-111 [facility] Comment on above: Performed By: #### 2 252042, 6592900, 13741254, 8504511 ####[facility] [address] [place] [address] CO2 [Moles/Vol] 28 mmol/L Normal 21-31 [facility] Comment on above: Performed By: #### 2 804458, 3107804, 97720823, 7925387 ####[facility] [address] [place] [address] Creatinine [Mass/Vol] 1.2 mg/dL Normal 0.5-1.3 [facility] Comment on above: Performed By: #### 2 569961, 8084635, 96122584, 6693255 ####[facility] [address] [place] [address] Globulin (S) [Mass/Vol] 4.1 g/dL High 1.4-4.0 [facility] Comment on above: Performed By: #### 2 028109, 0926059, 27979036, 4227035 ####[facility] [address] [place] [address] Glucose [Mass/Vol] 101 mg/dL Normal 55-199 [facility] Comment on above: Result Comment: If t his glucose result represents a fasting glucose, interpretation should refer to the following reference range: 55-99 mg/dL Performed By: #### 2 866546, 6165939, 34458912, 7841456 ####[facility] [address] [place] [address] Potassium [Moles/Vol] 4.7 mmol/L Normal 3.5-5.3 [facility] Comment on above: Performed By: #### 2 976096, 8526732, 95123819, 4642829 ####[facility] [address] [place] [address] Protein [Mass/Vol] 7.9 g/dL High 6.0-7.8 [facility] Comment on above: Performed By: #### 2 788806, 4078843, 90052433, 3399809 ####[facility] [address] [place] [address] Sodium [Moles/Vol] 137 mmol/L Normal 135-145 [facility] Comment on above: Performed By: #### 2 757822, 2220676, 61781272, 5327489 ####[facility] [address] [place] [address] Urea nitrogen [Mass/Vol] 20 mg/dL Normal 5-21 [facility] Comment on above: Performed By: #### 2 733258, 1566084, 18639282, 9246346 ####[facility] [address] [place] [address] Urea nitrogen/Creatinine [Mass ratio] 17 No Units Normal 10-20 [facility] Comment on above: Performed By: #### 2 967483, 1109944, 30616109, 0769756 ####[facility] [address] [place] [address] Consent for Treatmenton 11-2 Consent for Treatment [id number]#1.00T IFF Normal [facility] D-Dimeron 07-08-2023 Fibrin D-dimer FEU (PPP) [Mass/Vol] 323 [id number] Normal 215-500 [facility] Comment on above: Result Comment: [...] skin infectionsLiver cirrhosisPregnancy Performed By: #### 2 265558 ####[facility] [address] [place] [address] eGFRon 07-08-2023 GFR/1.73 sq M.predicted among non-blacks MDRD (S/P/Bld) [Vol rate/Area] 63 mL/min/1.73 m2 Normal >=59 [facility] Comment on above: Order Comment: Order added by Discern Expert. Result Comment: Manager Summer cristo kidney disease could be indicated at eGFR's of less than 60 mL/min/1.73m2. Kidney failure is indicated at less than 15 mL/min/1.73m2. Performed By: #### 2 196401, 9371051, 81911593, 2646721 ####[facility] [address] [place] [address] Immunization Recordson 07-02 Immunization Records [id number]#1.00T IFF Normal [facility] Consent for Treatmenton 06-12 Consent for Treatment [id number]#1.00T IFF Normal [facility] Heart and Vascular Office/Cl inic Noteon 06-26-2023 Heart and Vascular Office/Clinic Note Normal [facility] Comment on above: Result Comment: Elec tronically Signed By: Chidi ESPINAL, Matty Mello.br\Date and Time Signed: 06/26/23 10:23 EST Physician Orderon 06-26-2023 Physician Order [id number]#1.00 TIFF Normal [facility] Consultation Noteon 06-22-20 Consultation Note [id number]#1.00T IFF Normal [facility] Consultation Note [id number]#1.00T IFF Normal [facility] US LE Venous Duplex Insuffic iency Bilaton 06-12-2023 US LE Venous Duplex Insufficiency Bilat Normal [facility] Consent for Treatmenton 05-14 Consent for Treatment [id number]#1.00T IFF Normal [facility] RAD - MISCon 06-11-2023 RAD - MISC [id number]#1.00 TIFF Normal [facility] Consultation Noteon 06-09-20 Consultation Note [id number]#1.00TI FF Normal [facility] [facility] Consultation Note [id number]#1.00T IFF Normal [facility] Physician Referralon 023 Physician Referral [id number]#1.00 TIFF Normal [facility] CHEMISTRYOrdered By: SYSTEM SYSTEM on [...] (Bld) [Mass fraction] 7.2 % High <=5.9% [facility] ChemAutoSS Consent for Treatmenton 05-13 Consent for Treatment [id number]#1.00T IFF Normal [facility] Family Medicine Office/Clini c Noteon 06-03-2023 Family Medicine Office/Clinic Note Normal [facility] Comment on above: Result Comment: Elec tronically Signed By: MAMTA LEE FAAFP, [place]\Date and Time Signed: 06/03/23 14:43 EDT Hep Func Panelon 06-03-2023 Albumin [Mass/Vol] 3.7 g/dL Normal 3.3-5.0 [facility] Comment on above: Performed By: #### 2 585612, 0412353 ####[facility] [address] [place] [address] Albumin/Globulin (S) [Mass conc ratio] 0.9 Low 1.1-2.2 [facility] Comment on above: Performed By: #### 2 793979, 3297843 ####[facility] [address] [place] [address] ALP [Catalytic activity/Vol] 53 Int._Unit/L Normal 21-98 [facility] Comment on above: Performed By: #### 2 380992, 5019034 ####[facility] [address] [place] [address] ALT No additional P-5'-P [Catalytic activity/Vol] 25 Int._Unit/L Normal 6-46 [facility] Comment on above: Performed By: #### 2 935121, 0963708 ####[facility] [address] [place] [place] [address] AST [Catalytic activity/Vol] 34 Int._Unit/L Normal 5-43 [facility] Comment on above: Performed By: #### 2 213968, 3358983 ####[facility] [address] [facility] [place] [address] Bilirubin [Mass/Vol] 0.4 mg/dL Normal 0.0-1.1 [facility] Comment on above: Performed By: #### 2 118272, 2254574 ####[facility] [address] [facility] [place] [address] Bilirubin.direct [Mass/Vol] 0.1 mg/dL Normal 0.1-0.4 [facility] Comment on above: Performed By: #### 2 958947, 6783236 ####[facility] [address] [place] [address] Bilirubin.indirect [Mass or moles/Vol] 0.3 mg/dL Normal 0.1-0.9 [facility] Comment on above: Performed By: #### 2 941047, 9078232 ####[facility] [address] [place] [address] Globulin (S) [Mass/Vol] 4.1 g/dL High 1.4-4.0 [facility] Comment on above: Performed By: #### 2 403895, 0704664 ####[facility] [address] [place] [address] Protein [Mass/Vol] 7.8 g/dL Normal 6.0-7.8 [facility] Comment on above: Performed By: #### 2 866785, 2893880 ####[address] [address] FamH1rbp 06-03-2023 HbA1c (Bld) [Mass fraction] 7.2 % High <=5.9 [facility] Comment on above: Performed By: #### 7 [id number] ####[facility] [address] [place] [address] Lipid Panelon 06-03-2023 Cholesterol [Mass/Vol] 196 mg/dL Normal 120-200 [facility] Comment on above: Performed By: #### 2 398984, 5976358 ####[facility] [address] [place] [address] Cholesterol in HDL [Mass/Vol] 42 mg/dL Invalid Interpretation Code [facility] Comment on above: Result Comment: HDL > or equal to 60 mg/dL: Low cardiovascular riskHDL < 40 mg/dL : High cardiovascular risk Performed By: #### 2 345906, 3870058 ####[facility] [address] [place] [address] Cholesterol in LDL [Mass/Vol] 129 mg/dL Normal <=129 [facility] Comment on above: Performed By: #### 2 598860, 1442776 ####[facility] [address] [place] [address] Cholesterol in VLDL [Mass/Vol] 30 mg/dL Normal 7-40 [facility] Comment on above: Performed By: #### 2 875177, 8344407 ####[facility] [address] [place] [address] Triglyceride [Mass/Vol] 151 mg/dL High <=149 [facility] Comment on above: Performed By: #### 2 049249, 3609496 ####[facility] [address] [place] [address] Patient Educationon 06-03-20 Patient Education Normal [facility] Physician Orderon 05-30-2023 Physician Order [id number]#1.00T IFF Normal [facility] Consultation Noteon 05-28-20 Consultation Note [id number] 003 [id number]#1.00T IFF Normal [facility] Consultation Noteon 05-27-20 Consultation Note [id number] 002 [id number]#1.00T IFF Normal [facility] Immunization Recordson 05-22 Immunization Records [id number]#1.00 TIFF Normal [facility] Consultation Noteon 05-16-20 Consultation Note [id number] 005 [id number]#1.00T IFF Normal [facility] Consent for Procedure/Surger yon 04-23-2023 Consent for Procedure/Surgery [id number]#1.00 CD:127 Normal [facility] Consent for Treatmenton 04-12 Consent for Treatment [id number]#1.00C D:127 Normal [facility] Consent to Photographon 04-12 Consent to Photograph [id number]#1.00 CD:127 Normal [facility] Correspondence - Woundon Correspondence - Wound [id number]#1.00 CD:127 Normal [facility] Correspondence - Wound [id number]#1.00 CD:127 Normal [facility] Multi-Wound Charton 04-23-20 Multi-Wound Chart [id number]#1.00 CD:127 Normal [facility] Nursing Assessment - Woundon 04-23-2023 Nursing Assessment - Wound [id number]#2.00 CD:127 Normal [facility] Nursing Assessment - Wound [id number]#1.00 CD:127 Normal [facility] Nursing Note - Woundon 04-23 Nursing Note - Wound [id number]#1.00 CD:127 Normal [facility] Physician Orderon 04-23-2023 Physician Order [id number]#1.00 CD:127 Normal [facility] Procedure - Woundon 04-23-20 Procedure - Wound [id number]#1.00 CD:127 Normal [facility] Progress Note - Woundon 04-12 Progress Note - Wound [id number]#1.00 CD:127 Normal [facility] Lab Miscellaneous-LCon 04-12 Lab Miscellaneous COMMENT Invalid Interpretation Code [facility] Comment on above: Result Comment: Test Ordered: 234372 Antithrombin ActivityAntithrombin Activity 109 % BNReference Range: 75-135Direct Xa inhibitor anticoagulants such as rivaroxaban, apixaban andedoxaban will lead to spuriously elevated antithrombin activitylevels possibly masking a deficiency.Performed at: [facility] [address] [place], [place] [id number] PhD Quinn Pinedo Performed By: #### 1 [id number] ####[facility] [address] [place] [address] COAGULATIONOrdered By: Claudia Caballero on 04-10-2023 Fibrin D-dimer FEU (PPP) [Mass/Vol] 552 ng/mL FEU Invalid Interpretation Code 215 - 500 ng/mL FEU [facility] Auto Coag Comment on above: Result Comment: Resu lts Called To Shabana Zendejas By JUDIE_ And Read Back For Confirmation On 04/10/2023 08:58:49 EDT_. Consent for Treatmenton 03-14 Consent for Treatment [id number]#1.00C D:127 Normal [facility] D-Dimeron 04-10-2023 Fibrin D-dimer FEU (PPP) [Mass/Vol] 552 [id number] Abnormal 215-500 [facility] Comment on above: Result Comment: [...] skin infectionsLiver cirrhosisPregnancy Performed By: #### 2 806871 ####[facility] [address] [place] [address] Lab Miscellaneous-LCon 04-10 Test Code 769477 Invalid Interpretation Code [facility] Comment on above: Performed By: #### 1 [id number] ####[facility] [address] [place] [address] Test Name AT activ Invalid Interpretation Code [facility] Comment on above: Performed By: #### 1 [id number] ####[facility] [address] [place] [address] Reference Laboratory Testing Ordered By: Sylwia Lubin on 04-10-2023 Test Code 485943 Invalid Interpretation Code [facility] SendOuts Test Name AT activ Invalid Interpretation Code [facility] SendOutsSS Consent for Treatmenton 03-13 Consent for Treatment [id number]#1.00C D:127 Normal [facility] Oncology Noteon 04-09-2023 Oncology Note Normal [facility] Comment on above: Result Comment: Elec tronically Signed By: Charles RN, Isabelle\.br\Date and Time Signed: 04/09/23 11:08 EDT Oncology Progress Noteon Oncology Progress Note Normal [facility] Auto Diffon 04-05-2023 Basophils/100 WBC (Bld) 0.7 % Normal 0.0-2.0 [facility] Comment on above: Order Comment: Order Added by Discern Expert. Performed By: #### 2 752086, 4251045, 6123039, 58768643 ####[facility] [address] [place] [address] Basophils/Leukocyte s Auto (Bld) [Pure # fraction] 0.0 E9/L Normal 0.0-0.2 [facility] Comment on above: Order Comment: Order Added by Discern Expert. Performed By: #### 2 596820, 3476760, 3472119, 63131085 ####[facility] [address] [place] [address] Eosinophils/100 WBC (Bld) 3.3 % Normal 0.0-8.0 [facility] Comment on above: Order Comment: Order Added by Discern Expert. Performed By: #### 2 827630, 7523111, 3179884, 28274559 ####[facility] [address] [place] [address] Eosinophils/Leukocy cam[place] Auto (Bld) [Pure # fraction] 0.2 E9/L Normal 0.0-0.5 [facility] Comment on above: Order Comment: Order Added by Discern Expert. Performed By: #### 2 720982, 5862675, 1605601, 10980741 ####[address] [place] [address] Lymphocytes/100 WBC (Bld) 27.4 % Normal 14.0-50.0 [facility] Comment on above: Order Comment: Order Added by Rudi Expert. Performed By: #### 2 340947, 0914410, 0595441, 26403182 ####[address] [address] Lymphocytes/Leukocy [place] Auto (Bld) [Pure # fraction] 1.6 E9/L Normal 1.0-4.0 [facility] Comment on above: Order Comment: Order Added by Rudi Expert. Performed By: #### 2 880623, 5988534, 5751410, 01721266 ####[address] [address] Monocytes/100 WBC (Bld) 8.2 % Normal 4.0-14.0 [facility] Comment on above: Order Comment: Order Added by Rudi Expert. Performed By: #### 2 998204, 0287367, 0463789, 95304685 ####[address] [place] [address] Monocytes/Leukocyte s Auto (Bld) [Pure # fraction] 0.5 E9/L Normal 0.2-1.0 [facility] Comment on above: Order Comment: Order Added by Rudi Expert. Performed By: #### 2 411685, 6142397, 9998146, 00260748 ####[facility] [address] [place] [address] [place] [address] Neutrophils/100 WBC (Bld) 60.4 % Normal 36.0-75.0 [facility] Comment on above: Order Comment: Order Added by Discern Expert. Performed By: #### 2 914881, 2311216, 5147319, 24369555 ####[address] [address] Neutrophils/Leukocy [place] Auto (Bld) [Pure # fraction] 3.6 E9/L Normal 2.0-7.5 [facility] Comment on above: Order Comment: Order Added by Discern Expert. Performed By: #### 2 433532, 2147613, 7550093, 51118458 ####[address] [address] CBC w/ Auto Diffon Erythrocyte distribution width (RBC) [Ratio] 14.5 % High 10.9-14.2 [facility] Comment on above: Performed By: #### 2 072984, 4123294, 7007338, 40366842 ####[address] [address] Hematocrit (Bld) [Volume fraction] 39.5 % Normal 37.7-49.0 [facility] Comment on above: Performed By: #### 2 849836, 9783326, 4600108, 69641816 ####[address] [address] Hemoglobin (Bld) [Mass/Vol] 13.2 g/dL Low 13.5-17.5 [facility] Comment on above: Performed By: #### 2 635801, 9492865, 0769300, 89769710 ####[address] [address] MCH (RBC) [Entitic mass] 31.3 pg Normal 27.0-34.0 [facility] Comment on above: Performed By: #### 2 824120, 3050035, 1300976, 74794906 ####[address] [place] [address] MCHC (RBC) [Mass/Vol] 33.4 g/dL Normal 31.4-36.0 [facility] Comment on above: Performed By: #### 2 659962, 9665649, 0329677, 09767677 ####[address] [address] MCV (RBC) [Entitic vol] 93.8 fL Normal 80.0-100.0 [facility] Comment on above: Performed By: #### 2 663001, 3709830, 2560981, 15314226 ####[address] [address] Platelet mean volume (Bld) [Entitic vol] 7.8 fL Normal 6.4-10.8 [facility] Comment on above: Performed By: #### 2 753470, 8525351, 3258553, 09737491 ####[address] [address] Platelets (Bld) [#/Vol] 152.0 E9/L Normal 150.0-500.0 [facility] Comment on above: Performed By: #### 2 833376, 4862048, 1204693, 28863666 ####[address] [address] RBC (Bld) [#/Vol] 4.2 E12/L Low 4.3-5.9 [facility] Comment on above: Performed By: #### 2 452466, 6551950, 7740074, 98389932 ####[address] [address] WBC corrected for nucl RBC Auto (Bld) [#/Vol] 6.0 E9/L Normal 4.0-11.0 [facility] Comment on above: Performed By: #### 2 616059, 1979015, 7395608, 39289222 ####[address] [address] CHEMISTRYOrdered By: SYSTEM SYSTEM on 04-05-2023 Albumin [...] 136 mmol/L Normal 135 - 145 mmol/L [facility] Remisol Urea nitrogen [Mass/Vol] 17 mg/dL Normal 5 - 21 mg/dL [facility] Remisol Urea nitrogen/Creatinine [Mass ratio] 17 mg/mg Normal 10 - 20 [facility] Remisol CMPon 04-05-2023 Anion gap [Moles/Vol] 13 mmol/L Normal 6-16 [facility] Comment on above: Performed By: #### 2 624020, 7488896, 9051427, 62294810 ####[facility] [address] [place] [address] Calcium [Mass/Vol] 8.8 mg/dL Low 8.9-11.1 [facility] Comment on above: Performed By: #### 2 531664, 6795766, 8878480, 19735438 ####[facility] [address] [place] [address] Chloride [Moles/Vol] 97 mmol/L Low 101-111 [facility] Comment on above: Performed By: #### 2 105895, 5591949, 5424901, 97500715 ####[facility] [address] [facility] [place] [address] CO2 [Moles/Vol] 30 mmol/L Normal 21-31 [facility] Comment on above: Performed By: #### 2 828618, 6587920, 7889852, 28634847 ####[facility] [address] [place] [address] Glucose [Mass/Vol] 153 mg/dL Normal 55-199 [facility] Comment on above: Result Comment: If t his glucose result represents a fasting glucose, interpretation should refer to the following reference range: 55-99 mg/dL Performed By: #### 2 865259, 8946413, 5839712, 67497078 ####[facility] [address] [place] [address] Potassium [Moles/Vol] 3.9 mmol/L Normal 3.5-5.3 [facility] Comment on above: Performed By: #### 2 438305, 5157456, 2766492, 44168890 ####[address] [place] [address] Sodium [Moles/Vol] 136 mmol/L Normal 135-145 [facility] Comment on above: Performed By: #### 2 761627, 8018957, 7222389, 06402610 ####[address] [address] Albumin [Mass/Vol] 3.5 g/dL Normal 3.3-5.0 [facility] Comment on above: Performed By: #### 2 694104, 9630086, 0773566, 25346700 ####[address] [address] Albumin/Globulin (S) [Mass conc ratio] 1.0 Low 1.1-2.2 [facility] Comment on above: Performed By: #### 2 847680, 8598434, 1228338, 59769886 ####[address] [address] ALP [Catalytic activity/Vol] 51 Int._Unit/L Normal 21-98 [facility] Comment on above: Performed By: #### 2 949908, 5996028, 7121115, 75734802 ####[address] [address] ALT No additional P-5'-P [Catalytic activity/Vol] 31 Int._Unit/L Normal 6-46 [facility] Comment on above: Performed By: #### 2 215775, 4732523, 4669577, 26138176 ####[address] [address] AST [Catalytic activity/Vol] 41 Int._Unit/L Normal 5-43 [facility] Comment on above: Performed By: #### 2 228430, 7346402, 0290218, 22971156 ####[address] [place] [address] Bilirubin [Mass/Vol] 0.6 mg/dL Normal 0.0-1.1 [facility] Comment on above: Performed By: #### 2 252991, 1360694, 5512214, 90784739 ####[facility] [address] [place] [address] Creatinine [Mass/Vol] 1.0 mg/dL Normal 0.5-1.3 [facility] Comment on above: Performed By: #### 2 964620, 2933801, 9739230, 34889905 ####[facility] [address] [place] [address] Globulin (S) [Mass/Vol] 3.7 g/dL Normal 1.4-4.0 [facility] Comment on above: Performed By: #### 2 910163, 2539967, 6637773, 82996732 ####[facility] [address] [place] [address] Protein [Mass/Vol] 7.2 g/dL Normal 6.0-7.8 [facility] Comment on above: Performed By: #### 2 988360, 3731358, 3169595, 25415355 ####[facility] [address] [place] [address] Urea nitrogen [Mass/Vol] 17 mg/dL Normal 5-21 [facility] Comment on above: Performed By: #### 2 145588, 7158370, 8071107, 72508987 ####[facility] [address] [place] [address] Urea nitrogen/Creatinine [Mass ratio] 17 No Units Normal 10-20 [facility] Comment on above: Performed By: #### 2 693575, 8663813, 8063792, 21762028 ####[facility] [address] [place] [address] Consent for Treatmenton 03-13 Consent for Treatment [id number]#1.00C D:127 Normal [facility] HEMATOLOGYOrdered By: SYSTEM SYSTEM on [...] 7.8 fL Normal 6.4 - 10.8 fL [facility] HemeAutoSS Platelets (Bld) [#/Vol] 152.0 E9/L Normal 150.0 - 500.0 E9/L [facility] HemeAutoSS RBC (Bld) [#/Vol] 4.2 E12/L Low 4.3 - 5.9 E12/L [facility] HemeAutoSS WBC corrected for nucl RBC Auto (Bld) [#/Vol] 6.0 E9/L Normal 4.0 - 11.0 E9/L [facility] HemeAutoSS eGFRon 04-05-2023 GFR/1.73 sq M.predicted among non-blacks MDRD (S/P/Bld) [Vol rate/Area] 78 mL/min/1.73 m2 Normal >=59 [facility] Comment on above: Order Comment: Order added by Discern Expert. Result Comment: Manager Summer cristo kidney disease could be indicated at eGFR's of less than 60 mL/min/1.73m2. Kidney failure is indicated at less than 15 mL/min/1.73m2. Performed By: #### 2 945038, 4578303, 2378959, 92137407 ####[facility] [address] [place] [address] Patient Eval Forms Officeon 04-01-2023 Patient Eval Forms Office [id number]#1.00C D:127 Normal [facility] Consent for Treatmenton 03-12 Consent for Treatment [id number]#1.00C D:127 Normal [facility] Sleep Office/Clinic Noteon 0 03-29-2023 Sleep Office/Clinic Note Normal [facility] Comment on above: Result Comment: Elec tronically Signed By: Chidi ESPINAL, Matty GJase\.br\Date and Time Signed: 03/29/23 10:20 EDT Population Healthon 03-21-20 Population Health Normal [facility] C Blood Charcoalon Blood Culture Charcoal Normal [facility] Comment on above: Performed By: #### 1 5881576 ####[facility] [address] [place] [address] Blood Culture Charcoal Normal [facility] Comment on above: Performed By: #### 1 7856320 ####[facility] [address] [place] [address] .VIPER VENOM MIXING STUDYon 03-18-2023 dRVVT w 1:1 PNP Coag (PPP) [Time] 45.3 second(s) High 0.0-40.4 [facility] Comment on above: Result Comment: Perf ormed at: [facility] [address] [id number] MD Taye Sadler Performed By: #### 3 6606139, 262872471, 86479639, 1575048, 40307234, 5078799, 5977357, 64218965, 6738121 ####[facility] [address] [place] [address] Beta-2 Glycoprot.i Aon 03-18 Beta 2 glycoprotein 1 IgA Qn (S) <9 Invalid Interpretation Code 0-25 [facility] Comment on above: Result Comment: The reference interval reflects a 3SD or 99th percentile interval,which is thought to represent a potentially clinically significantresult in accordance with the International Consensus Statement onthe classification criteria for definitive antiphospholipid syndrome(APS). J Thromb Haem 2006;4:295-306. Performed By: #### 3 8774113, 945276672, 15990976, 7344797, 07772705, 5621901, 4070131, 30745943, 9425088 ####[facility] [address] [place] [address] Beta 2 glycoprotein 1 IgG Qn (S) <9 Invalid Interpretation Code 0-20 [facility] Comment on above: Result Comment: The reference interval reflects a 3SD or 99th percentile interval,which is thought to represent a potentially clinically significantresult in accordance with the International Consensus Statement onthe classification criteria for definitive antiphospholipid syndrome(APS). J Thromb Haem 2006;4:295-306. Performed By: #### 3 7497830, 713352791, 08541784, 0052325, 52197811, 7832902, 7984931, 26490589, 9076536 ####[facility] [address] [place] [address] Beta 2 glycoprotein 1 IgM Qn (S) <9 Invalid Interpretation Code 0-32 [facility] Comment on above: Result Comment: The reference interval reflects a 3SD or 99th percentile interval,which is thought to represent a potentially clinically significantresult in accordance with the International Consensus Statement onthe classification criteria for definitive antiphospholipid syndrome(APS). J Thromb Haem 2006;4:295-306.Performed at: [facility] [address] [id number] MD Taye Sadler Performed By: #### 3 [id number], [id number], 67945099, 0467811, 94329624, 3151374, 2712491, 96122041, 3582270 ####[facility] [address] [place] [address] Consultation Noteon 03-18-20 Consultation Note [id number] D:127 Normal [facility] Factor II, DNA Analysison F2 gene c.52157B>A genotype [employer] (Bld/Tiss) Comment Invalid Interpretation Code [facility] Comment on above: Result Comment: [...] in theF2 gene and a c.1601G>A (p. Qkg350Kgc) variant in the F5 gene(commonly referred to as Factor V Leiden) have an approximately 20-fold increased risk for venous thromboembolism. Risks are likely willard even higher in more complex genotype combinations involving theF2 c.*97G>A variant and Factor V Leiden (PMID: 87563186). Additionalrisk factors include but are not limited [...] for health care providers to discussresults at [phone] ([phone]).Test Details:Variant analyzed: c.*97G>A, previously referred to as Q01092ALamawpk/Limitations:DNA analysis of the F2 gene (NM_[id number]) was [...] was developed and its performance characteristics determinedby [employer]. It has not been cleared or approved by the Food and DrugAdministration.References:Lonny S, Leonie AK, Olivo R, Nakul WW, González JH; [employer] ProfessionalPractice and Guidelines Committee. Addendum: [employer] [employer] consensus statement on factor V Leiden mutationtesting. Evon Med. 2020Oct 14. doi: 10.1038/[id number]-j.PMID: 36281146.Sharif GUERRA. Prothrombin Thrombophilia. 2005Mar 05[Updated 2020Sep 15]. In: Douglas MP, Corey HH, Sierra RA, et al.,editors. Khushi(Minal) [Internet]. [place] ([place]): [facility]; 2238-3305. Available from:https://www.ncbi.nlm.nih.gov/books/NZP4893/Nathan S, Leonie AK, Boogie X, Raghav B, Celina EB, Caroline P, Jamey CS;[facility] Laboratory Medical Office Receptionist Committee. Venous thromboembolismlaboratory testing (factor V Leiden and factor II c.*97G>A),2018 update: a technical standard of the [employer] [employer] and [employer] (ACMG). Evon Med. 2018 Jul;20(12):2187-8124.doi: 10.1038/[id number]. Epub 2017May 16. PMID: 59599316. Performed By: #### 3 7744349, 743954491, 06641379, 9259414, 40262265, 3328946, 6710009, 13044605, 0155084 ####[facility] [address] [place] [address] Factor V Leidenon 03-18-2023 F5 gene p.Ogz284Svb [facility] (Bld/Tiss) Comment Invalid Interpretation Code [facility] Comment on above: Result Comment: Resu lt: c.1601G>A (p.Axk763Iml) - Not DetectedThis result is not associated with an increased risk for venousthromboembolism. See Additional Clinical Information andComments.Additional Clinical Information:Venous thromboembolism is a multifactorial disease influenced bygenetic, environmental, and circumstantial risk factors. The c.1601G>A(p. Snj926Tyy) variant in the F5 gene, commonly referred [...] F2 c.*97G>A variant andFactor V Leiden (PMID: 69494665). Additional risk factors include butare not limited [...] for health care providers todiscuss results at [phone] (2498).Test Details:Variant Analyzed: c.1601G>A (p. Zlv951Nep), referred to as Factor VLeidenMethods/Limitations:DNA analysis of [...] was developed and its performance characteristicsdetermined by [employer]. It has not been cleared or approved by theFood and Drug Administration.References:Lonny S, Leonie AK, Geovani R, Nakul WW, González JH; [employer] ProfessionalPractice and Guidelines Committee. Addendum: [employer] [employer] consensus statement on factor V Leiden mutationtesting. Evon Med. 2020Oct 14. doi: 10.1038/[id number].PMID: 63908951.Sharif GUERRA. Factor V Leiden Thrombophilia. 1998December 23(Updated 2018 Aug 4). In: Douglas MP, Corey HH, Sierra RA, et al.,editors. Khushi(Minal) (Internet). [place] ([place]): [facility]; 8733-8269. Available from:https://www.ncbi.nlm.nih.gov/books/VFX8157/Nathan S, Leonie AK, Boogie X, Raghav B, Celina EB, Caroline P, Jamey CS;[facility] Laboratory Medical Office Receptionist Committee. Venous thromboembolismlaboratory testing (factor V Leiden and factor II c.*97G>A), 2018update: a technical standard of the [place] [employer] Gen[employer] (ACMG). Evon Med. 2018 Jul;20(12):6549-8664.doi: 10.1038/[id number]. Epub 2017May 16. PMID: 29189219. Performed By: #### 3 1319350, 838518068, 97010384, 1925966, 68520234, 8531887, 0996285, 84961057, 6239412 ####[facility] [address] [place] [address] Lupus Anticoagon 03-18-2023 aPTT.lupus sensitive Coag (PPP) [Time] 32.6 second(s) Invalid Interpretation Code 0.0-43.5 [facility] Comment on above: Performed By: #### 3 8134172, 663226621, 79568996, 0278504, 71618656, 2639477, 5040414, 67867357, 6398026 ####[facility] [address] [place] [address] dRVVT Coag (PPP) [Time] 50.9 second(s) High 0.0-47.0 [facility] Comment on above: Result Comment: Perf ormed at: [facility] [address] [id number] MD Taye Sadler Performed By: #### 3 0058181, 594069472, 09227308, 8339832, 10914620, 0879721, 4273941, 14660188, 4211071 ####[facility] [address] [place] [address] Lupus anticoagulant two screening tests W Reflex Coag (PPP) [Interp] Comment: Invalid Interpretation Code [facility] Comment on above: Result Comment: No l upus anticoagulant was detected. These results are consistent withspecific inhibitors to one or more common pathway factors (X, V, II orfibrinogen).Performed at: [facility] [id number] MD Taye Sadler Performed By: #### 3 7737623, 405652074, 07981958, 9080564, 29034221, 3408847, 1302547, 85848407, 7058149 ####[address] [place] [address] dRVVT CONFIRMon 03-18-2023 dRVVT/dRVVT.excess phospholipid Coag (PPP) [Ratio] 0.9 ratio Invalid Interpretation Code 0.8-1.2 [facility] Comment on above: Result Comment: Perf ormed at: [facility] [id number] MD Taye Sadler Performed By: #### 3 5093151, 101525883, 35233071, 8084258, 18919539, 6633763, 9607950, 65569588, 6316487 ####[facility] [address] [place] [address] Auto Diffon 03-13-2023 Basophils/100 WBC (Bld) 0.6 % Normal 0.0-2.0 [facility] Comment on above: Order Comment: Order Added by Discern Expert. Performed By: #### 2 105856, 8368707, 6156486, 7503493, 7100266, 80442144, 25166015, 53094322 ####[facility] [address] [place] [address] Basophils/Leukocyte s Auto (Bld) [Pure # fraction] 0.1 E9/L Normal 0.0-0.2 [facility] Comment on above: Order Comment: Order Added by Rudi Expert. Performed By: #### 2 296249, 9572503, 3087805, 5495660, 6656603, 52365570, 23768918, 68255113 ####[facility] [address] [place] [address] Eosinophils/100 WBC (Bld) 2.2 % Normal 0.0-8.0 [facility] Comment on above: Order Comment: Order Added by Discern Expert. Performed By: #### 2 069861, 2806258, 8271964, 0308588, 0297730, 72929304, 03087299, 87791966 ####[address] [place] [address] Eosinophils/Leukocy cam[place] Auto (Bld) [Pure # fraction] 0.2 E9/L Normal 0.0-0.5 [facility] Comment on above: Order Comment: Order Added by Rudi Expert. Performed By: #### 2 857392, 3478815, 4886537, 6067555, 1543868, 26604491, 75243842, 08355348 ####[address] [place] [address] Lymphocytes/100 WBC (Bld) 20.6 % Normal 14.0-50.0 [facility] Comment on above: Order Comment: Order Added by Rudi Expert. Performed By: #### 2 091204, 5619132, 9561433, 3722311, 2367183, 67468986, 81895833, 39341688 ####[facility] [address] [place] [address] Lymphocytes/Leukocy [place] Auto (Bld) [Pure # fraction] 1.8 E9/L Normal 1.0-4.0 [facility] Comment on above: Order Comment: Order Added by Rudi Expert. Performed By: #### 2 967355, 6668318, 1177194, 9177892, 3432549, 21419384, 61275521, 29837616 ####[address] [place] [address] Monocytes/100 WBC (Bld) 7.6 % Normal 4.0-14.0 [facility] Comment on above: Order Comment: Order Added by Discern Expert. Performed By: #### 2 502413, 0079207, 1743826, 5845222, 4418104, 07084051, 76935714, 04558188 ####[facility] [address] [place] [address] Monocytes/Leukocyte s Auto (Bld) [Pure # fraction] 0.7 E9/L Normal 0.2-1.0 [facility] Comment on above: Order Comment: Order Added by Discern Expert. Performed By: #### 2 965991, 1117107, 8117923, 7542209, 2314943, 61841305, 13120796, 91329079 ####[facility] [address] [place] [address] Neutrophils/100 WBC (Bld) 69.0 % Normal 36.0-75.0 [facility] Comment on above: Order Comment: Order Added by Discern Expert. Performed By: #### 2 691119, 7482981, 4253664, 3717409, 9876210, 36335763, 74460932, 02787372 ####[facility] [address] [place] [address] Neutrophils/Leukocy [place] Auto (Bld) [Pure # fraction] 6.1 E9/L Normal 2.0-7.5 [facility] Comment on above: Order Comment: Order Added by Discern Expert. Performed By: #### 2 142255, 3184162, 3944109, 8030686, 6964609, 29459765, 28416725, 52776279 ####[facility] [address] [place] [address] BMPon 03-13-2023 Creatinine [Mass/Vol] 0.9 mg/dL Normal 0.5-1.3 [facility] Comment on above: Performed By: #### 2 538263, 6601666, 3807547, 7553481, 7144636, 55747822, 83692273, 32984921 ####[facility] [address] [place] [address] Urea nitrogen [Mass/Vol] 15 mg/dL Normal 5-21 [facility] Comment on above: Performed By: #### 2 910214, 3691753, 9615235, 4078156, 8094775, 40306015, 69815712, 78710596 ####[facility] [address] [place] [address] Urea nitrogen/Creatinine [Mass ratio] 17 No Units Normal 10-20 [facility] Comment on above: Performed By: #### 2 681758, 1917285, 4064855, 6473922, 4081106, 64730181, 32347323, 98738535 ####[facility] [address] [place] [address] Anion gap [Moles/Vol] 12 mmol/L Normal 6-16 [facility] Comment on above: Performed By: #### 2 935059, 4652855, 7558370, 3784196, 3654214, 86951806, 81828818, 05011049 ####[facility] [address] [place] [address] Calcium [Mass/Vol] 8.6 mg/dL Low 8.9-11.1 [facility] Comment on above: Performed By: #### 2 763770, 6703937, 1766581, 1319402, 6097543, 86733758, 80687862, 25537610 ####[facility] [address] [place] [address] Chloride [Moles/Vol] 103 mmol/L Normal 101-111 [facility] Comment on above: Performed By: #### 2 719779, 9566690, 0507803, 1218497, 3864144, 12078606, 91045313, 91637297 ####[facility] [address] [place] [address] CO2 [Moles/Vol] 26 mmol/L Normal 21-31 [facility] Comment on above: Performed By: #### 2 052006, 5189852, 3108665, 0564926, 1698879, 59684263, 79435297, 67423767 ####[facility] [address] [place] [address] Glucose [Mass/Vol] 124 mg/dL Normal 55-199 [facility] Comment on above: Result Comment: If t his glucose result represents a fasting glucose, interpretation should refer to the following reference range: 55-99 mg/dL Performed By: #### 2 636666, 4299601, 2531237, 8807850, 5902690, 91592450, 13987963, 36144137 ####[facility] [address] [place] [address] Potassium [Moles/Vol] 4.0 mmol/L Normal 3.5-5.3 [facility] Comment on above: Performed By: #### 2 541318, 9136404, 1778102, 6974900, 3575900, 66229656, 31388341, 04801872 ####[facility] [address] [place] [address] Sodium [Moles/Vol] 137 mmol/L Normal 135-145 [facility] Comment on above: Performed By: #### 2 298798, 0353703, 0370148, 8308430, 3968099, 05638893, 73771012, 86465637 ####[facility] [address] [place] [address] BNPon 03-13-2023 Int Ctr BNP Pass Normal [facility] Comment on above: Performed By: #### 2 721148, 7464446, 7567400, 0699817, 1755983, 21172885, 70337496, 80035200 ####[facility] [address] [place] [address] Natriuretic peptide B (Bld) [Mass/Vol] 16 pg/mL Normal 5-80 [facility] Comment on above: Performed By: #### 2 749933, 1865888, 4721148, 8145842, 5517605, 83845025, 65126249, 67305458 ####[facility] [address] [place] [address] CBC w/ Auto Diffon 3 Erythrocyte distribution width (RBC) [Ratio] 14.6 % High 10.9-14.2 [facility] Comment on above: Performed By: #### 2 176878, 6231813, 4037502, 3084100, 2447301, 41487989, 34001458, 29945650 ####[address] [place] [address] Hematocrit (Bld) [Volume fraction] 38.2 % Normal 37.7-49.0 [facility] Comment on above: Performed By: #### 2 352783, 4570189, 1467666, 1405934, 8647174, 25558402, 61090402, 64045698 ####[address] [place] [address] Hemoglobin (Bld) [Mass/Vol] 13.0 g/dL Low 13.5-17.5 [facility] Comment on above: Performed By: #### 2 982596, 3209287, 4998325, 7899433, 2654465, 82931952, 70407605, 68109124 ####[address] [place] [address] MCH (RBC) [Entitic mass] 31.5 pg Normal 27.0-34.0 [facility] Comment on above: Performed By: #### 2 737836, 9558983, 7221712, 0468965, 3184795, 94358378, 30010995, 64957197 ####[address] [place] [address] MCHC (RBC) [Mass/Vol] 34.0 g/dL Normal 31.4-36.0 [facility] Comment on above: Performed By: #### 2 205936, 7109373, 0678057, 0338440, 0987895, 86005931, 09371688, 20919686 ####[facility] [address] [place] [address] MCV (RBC) [Entitic vol] 92.7 fL Normal 80.0-100.0 [facility] Comment on above: Performed By: #### 2 256547, 2650285, 9457693, 6904719, 0057614, 97409787, 67312043, 73558888 ####[address] [place] [address] Platelet mean volume (Bld) [Entitic vol] 7.9 fL Normal 6.4-10.8 [facility] Comment on above: Performed By: #### 2 227820, 2713264, 4245993, 2357699, 4891131, 40698578, 35303934, 89542295 ####[address] [address] Platelets (Bld) [#/Vol] 137.0 E9/L Low 150.0-500.0 [facility] Comment on above: Performed By: #### 2 785164, 3565383, 0232232, 3799439, 7497091, 34993409, 86278316, 27530368 ####[address] [place] [address] RBC (Bld) [#/Vol] 4.1 E12/L Low 4.3-5.9 [facility] Comment on above: Performed By: #### 2 521552, 7247861, 5062878, 8071355, 1769448, 46144154, 46840046, 56662391 ####[address] [place] [address] WBC corrected for nucl RBC Auto (Bld) [#/Vol] 8.9 E9/L Normal 4.0-11.0 [facility] Comment on above: Performed By: #### 2 043881, 2686155, 7267803, 1155908, 3185630, 50182702, 66319383, 36829116 ####[facility] [place] [address] CHEMISTRYOrdered By: SYSTEM SYSTEM on 03-13-2023 Anion [...] Remisol CRP [Mass/Vol] 1.3 mg/dL Normal <=1.9mg/dL [facility] Remisol GFR/1.73 sq M.predicted among non-blacks MDRD (S/P/Bld) [Vol rate/Area] 89 mL/min/1.73 m2 Normal >=59mL/min/1.73 m2 [facility] Chem S Glucose [Mass/Vol] 124 mg/dL Normal 55 - 199 mg/dL FT Remisol Lactate [Mass/Vol] 3.0 mmol/L High 0.5 - 2.2 mmol/L FT Remisol Potassium [Moles/Vol] 4.0 mmol/L Normal 3.5 - 5.3 mmol/L FT Remisol Sodium [Moles/Vol] 137 mmol/L Normal 135 - 145 mmol/L [facility] Remisol Troponin I.cardiac [Mass/Vol] 10.20 pg/mL Low 15.90 - 38.40 pg/mL FT Remisol Urea nitrogen [Mass/Vol] 15 mg/dL Normal 5 - 21 mg/dL [facility] Remisol Urea nitrogen/Creatinine [Mass ratio] 17 mg/mg Normal 10 - 20 [facility] Remisol CHEMISTRYOrdered By: Yandel Caballero on 03-13-2023 Natriuretic peptide B (Bld) [Mass/Vol] 16 pg/mL Normal 5 - 80 pg/mL [facility] HemeManSS CRPon 03-13-2023 CRP [Mass/Vol] 1.3 mg/dL Normal <=1.9 [facility] Comment on above: Performed By: #### 2 357431, 0709156, 8312147, 7756256, 0205522, 55570189, 11452829, 04995066 ####[facility] [address]Nthe [place] [address] Consenton 03-13-2023 Consent [id number]#1.00 CD:127 Normal [facility] Consent for Treatmenton Consent for Treatment [id number] D:127 Normal [facility] Discharge Instructionson Discharge Instructions [id number] CD:127 Normal [facility] ED Clinical Summaryon 2022 ED Clinical Summary Normal [facility] ED Note-Physicianon 03-13-20 ED Note-Physician Normal [facility] Comment on above: Result Comment: Elec tronically Signed By: Jordan Dean DO\.br\Date and Time Signed: 03/13/23 04:21 EDT ED Patient Education Noteon 03-13-2023 ED Patient Education Note Normal [facility] ED Patient Summaryon 023 ED Patient Summary Normal [facility] HEMATOLOGYOrdered By: SYSTEM SYSTEM on [...] 03-13 Lab Miscellaneous COMMENT Invalid Interpretation Code [facility] Comment on above: Result Comment: Test Ordered: [id number] Protein C- FunctionalProtein C-Functional 138 % BNReference Range: 73-180Performed at: [facility]Gqclxg0477 [place], [place] [id number] PhD Quinn Pinedo Performed By: #### 1 617058283 ####[facility] [address] [place] [address] Result Comment: Test Ordered: [id number] Protein S-AntigenProtein S, Total 97 % BNReference Range: 60-150This test was developed and its performance characteristicsdetermined by [employer]. It has not been cleared or approvedby the Food and Drug Administration.Protein S, Free 118 % BNReference Range: 61-136Performed at: [facility] HospitalWzklfa2811 [place], [place] [id number] PhD Quinn Pinedo Result Comment: Test Ordered: [id number] Protein S-FunctionalProtein S-Functional 112 % BNReference Range: 63-140Protein S activity may be falsely increased (masking an abnormal, lowresult) in patients receiving direct Xa inhibitor (e.g., rivaroxaban,apixaban, edoxaban) or a direct thrombin inhibitor (e.g., dabigatran)anticoagulant treatment due to assay interference by these drugs.Performed at: [facility] HospitalZzdunh8270 [place], [place] [id number] PhD Quinn Pinedo Lactic Acidon 03-13-2023 Lactate [Mass/Vol] 3.0 mmol/L High 0.5-2.2 [facility] Comment on above: Performed By: #### 2 175679, 6002416, 2086311, 4100483, 9173065, 45084163, 25873531, 66191243 ####[facility] [address] [place] [address] Troponin 0 Hr.on 03-13-2023 Troponin I.cardiac [Mass/Vol] 10.20 pg/mL Low 15.90-38.40 [facility] Comment on above: Result Comment: The 95% CI (Confidence Interval) PPV (Positive Predictive Value) for myocardial infarction in females is 38 pg/mL, in males 51 pg/mL. The results should be used in conjunction with clinical conditions of myocardial infarction.(Access High Sensitivity Troponin I Instructions For Use, Nikky Elmo, March 2018) Performed By: #### 2 331115, 2465369, 0869218, 5875930, 9562937, 11855312, 29215172, 33836232 ####[facility] [address] [place] [address] eGFRon 03-13-2023 GFR/1.73 sq M.predicted among non-blacks MDRD (S/P/Bld) [Vol rate/Area] 89 mL/min/1.73 m2 Normal >=59 [facility] Comment on above: Order Comment: Order added by Discern Expert. Result Comment: Manager Summer cristo kidney disease could be indicated at eGFR's of less than 60 mL/min/1.73m2. Kidney failure is indicated at less than 15 mL/min/1.73m2. Performed By: #### 2 330454, 4478184, 5555900, 3979687, 8192451, 50530836, 88620761, 03962468 ####[facility] [address] [place] [address] LISA ABS Ig G,M,Aon 3 Cardiolipin IgA IA Qn (S) <9 Invalid Interpretation Code 0-11 [facility] Comment on above: Result Comment: Nega tive: <12Indeterminate: 12 - 20Low-Med Positive: >20 - 80High Positive: >80Performed at: [facility] HospitalUcgrij6582 [place], [place] [id number] PhD Quinn Pinedo Performed By: #### 1 9112101 ####[facility] [address] [place] [address] Cardiolipin IgG IA Qn (S) <9 Invalid Interpretation Code 0-14 [facility] Comment on above: Result Comment: Nega tive: <15Indeterminate: 15 - 20Low-Med Positive: >20 - 80High Positive: >80 Performed By: #### 1 7680286 ####[address] [address] Cardiolipin IgM IA Qn (S) <9 Invalid Interpretation Code 0-12 [facility] Comment on above: Result Comment: Nega tive: <13Indeterminate: 13 - 20Low-Med Positive: >20 - 80High Positive: >80 Performed By: #### 1 7193277 ####[address] [address] Auto Diffon 03-11-2023 Basophils/100 WBC (Bld) 1.0 % Normal 0.0-2.0 [facility] Comment on above: Order Comment: Order Added by Discern Expert. Performed By: #### 3 2634658, 470227185, 10435042, 7743911, 09676776, 2415441, 2501952, 06190219, 3852063 ####[address] [address] Basophils/Leukocyte s Auto (Bld) [Pure # fraction] 0.1 E9/L Normal 0.0-0.2 [facility] Comment on above: Order Comment: Order Added by Discern Expert. Performed By: #### 3 2640541, 525225594, 26070179, 4327356, 61470860, 2147424, 7885908, 84025630, 7230493 ####[address] [address] Eosinophils/100 WBC (Bld) 2.1 % Normal 0.0-8.0 [facility] Comment on above: Order Comment: Order Added by Discern Expert. Performed By: #### 3 3446065, 653427002, 53267775, 8086900, 09082095, 0981808, 8184470, 31576864, 8737760 ####[address] [address] Eosinophils/Leukocy [place] Auto (Bld) [Pure # fraction] 0.2 E9/L Normal 0.0-0.5 [facility] Comment on above: Order Comment: Order Added by Discern Expert. Performed By: #### 3 7729031, 633411336, 46765154, 0208509, 62501639, 9878632, 8971939, 81246810, 2318675 ####[address] [place] [address] Lymphocytes/100 WBC (Bld) 23.1 % Normal 14.0-50.0 [facility] Comment on above: Order Comment: Order Added by Discern Expert. Performed By: #### 3 [id number], [id number], 26945148, 3794907, 89996435, 9152434, 3502675, 51186298, 4146398 ####[address] [address] Lymphocytes/Leukocy camden Auto (Bld) [Pure # fraction] 1.7 E9/L Normal 1.0-4.0 [facility] Comment on above: Order Comment: Order Added by Discern Expert. Performed By: #### 3 1564404, [id number], 13343824, 6384036, 77067025, 3617001, 0916852, 74191730, 1827730 ####[address] [address] Monocytes/100 WBC (Bld) 7.3 % Normal 4.0-14.0 [facility] Comment on above: Order Comment: Order Added by Discern Expert. Performed By: #### 3 5464949, 852040865, 70544560, 7989687, 36197091, 7708074, 6747357, 49601377, 2836857 ####[address] [place] [address] Monocytes/Leukocyte s Auto (Bld) [Pure # fraction] 0.6 E9/L Normal 0.2-1.0 [facility] Comment on above: Order Comment: Order Added by Discern Expert. Performed By: #### 3 5094314, [id number], 55728672, 5958175, 90971818, 7689075, 8528950, 22757798, 8051045 ####[address] [place] [address] Neutrophils/100 WBC (Bld) 66.5 % Normal 36.0-75.0 [facility] Comment on above: Order Comment: Order Added by Discern Expert. Performed By: #### 3 2870203, 428771171, 49285951, 9450470, 27641847, 9080099, 9079878, 79428706, 7492993 ####[facility] [address] [place] [address] Neutrophils/Leukocy camden Auto (Bld) [Pure # fraction] 5.0 E9/L Normal 2.0-7.5 [facility] Comment on above: Order Comment: Order Added by Discern Expert. Performed By: #### 3 3727286, 072741197, 70314968, 4230269, 66176968, 9441887, 6727795, 96241753, 1348782 ####[address] [place] [address] CBC w/ Auto Diffon 3 Erythrocyte distribution width (RBC) [Ratio] 14.6 % High 10.9-14.2 [facility] Comment on above: Performed By: #### 3 9910003, 420960879, 47081813, 0239343, 95982570, 1363747, 1724810, 91711935, 6357531 ####[facility] [address] [place] [address] Hematocrit (Bld) [Volume fraction] 39.8 % Normal 37.7-49.0 [facility] Comment on above: Performed By: #### 3 3561745, 479999152, 60592290, 9348438, 04206376, 4207585, 0047620, 93037480, 6801573 ####[facility] [address] [place] [address] Hemoglobin (Bld) [Mass/Vol] 13.3 g/dL Low 13.5-17.5 [facility] Comment on above: Performed By: #### 3 9884674, 519525589, 56611366, 1448953, 40051460, 6346855, 8678372, 35234460, 8419612 ####[address] [place] [address] MCH (RBC) [Entitic mass] 31.2 pg Normal 27.0-34.0 [facility] Comment on above: Performed By: #### 3 5460859, 412028588, 06428522, 0463509, 37897884, 8817077, 3101791, 98180148, 2857420 ####[address] [address] MCHC (RBC) [Mass/Vol] 33.4 g/dL Normal 31.4-36.0 [facility] Comment on above: Performed By: #### 3 2448634, 939187616, 55900947, 0810979, 29642423, 0100989, 3021407, 91249036, 6385147 ####[address] [address] MCV (RBC) [Entitic vol] 93.2 fL Normal 80.0-100.0 [facility] Comment on above: Performed By: #### 3 1916883, 126648173, 30585859, 8557237, 56070597, 4103860, 0963648, 54083106, 2814224 ####[address] [address] Platelet mean volume (Bld) [Entitic vol] 8.1 fL Normal 6.4-10.8 [facility] Comment on above: Performed By: #### 3 8519026, 982294956, 10434610, 9028514, 66051795, 9458386, 9005138, 50446443, 5999802 ####[address] [address] Platelets (Bld) [#/Vol] 174.0 E9/L Normal 150.0-500.0 [facility] Comment on above: Performed By: #### 3 7481887, 887822336, 37532187, 7762622, 31939076, 7744204, 8005278, 05165093, 5708268 ####[facility] [address] [place] [address] RBC (Bld) [#/Vol] 4.3 E12/L Normal 4.3-5.9 [facility] Comment on above: Performed By: #### 3 6865640, 974815492, 01880661, 3562163, 21013101, 0694571, 2867387, 88092194, 6001924 ####[facility] [address] [place] [address] WBC corrected for nucl RBC Auto (Bld) [#/Vol] 7.5 E9/L Normal 4.0-11.0 [facility] Comment on above: Performed By: #### 3 9117598, 485373328, 91636156, 0290668, 14585584, 1840095, 8961230, 43834382, 6065033 ####[facility] [address] [place] [address] COAGULATIONOrdered By: Brandie Sams on 03-11-2023 Fibrin D-dimer FEU (PPP) [Mass/Vol] 1012 ng/mL FEU Invalid Interpretation Code 215 - 500 ng/mL FEU [facility] Auto Coag Comment on above: Result Comment: Resu lts Called To Onc/Jerica Sánchez By And Read Back For Confirmation On 03/11/2023 12:57:21 EDT Results Verified By Repeat Analysis Consent for Treatmenton 02-11 Consent for Treatment [id number]#1.00C D:127 Normal [facility] D-Dimeron 03-11-2023 Fibrin D-dimer FEU (PPP) [Mass/Vol] 1012 [id number] Abnormal 215-500 [facility] Comment on above: Result Comment: [...] severe skin infectionsLiver cirrhosisPregnancy Performed By: #### 3 3187143, 910249526, 04749193, 0308306, 00617314, 2742588, 6518264, 45392591, 5146513 ####[place] [address] [place] [address] HEMATOLOGYOrdered By: SYSTEM SYSTEM on 03-11-2023 Basophils/100 [...] 5.0 E9/L Normal 2.0 - 7.5 E9/L [facility] HemeAutoSS HEMATOLOGYOrdered By: Yessica Murdock on 03-11-2023 Erythrocyte distribution width (RBC) [Ratio] 14.6 % High 10.9 - 14.2 % [facility] HemeAutoSS Hematocrit (Bld) [Volume fraction] 39.8 % Normal 37.7 - 49.0 % [facility] HemeAutoSS Hemoglobin (Bld) [Mass/Vol] 13.3 g/dL Low 13.5 - 17.5 gm/dL [facility] HemeAutoSS MCH (RBC) [Entitic mass] 31.2 pg Normal 27.0 - 34.0 pg [facility] HemeAutoSS MCHC (RBC) [Mass/Vol] 33.4 g/dL Normal 31.4 - 36.0 gm/dL [facility] HemeAutoSS MCV (RBC) [Entitic vol] 93.2 fL Normal 80.0 - 100.0 fL [facility] HemeAutoSS Platelet mean volume (Bld) [Entitic vol] 8.1 fL Normal 6.4 - 10.8 fL [facility] HemeAutoSS Platelets (Bld) [#/Vol] 174.0 E9/L Normal 150.0 - 500.0 E9/L [facility] HemeAutoSS RBC (Bld) [#/Vol] 4.3 E12/L Normal 4.3 - 5.9 E12/L [facility] HemeAutoSS WBC corrected for nucl RBC Auto (Bld) [#/Vol] 7.5 E9/L Normal 4.0 - 11.0 E9/L [facility] HemeAutoSS Lab Miscellaneous-LCon 03-11 Test Code 016786 Invalid Interpretation Code [facility] Comment on above: Performed By: #### 1 [id number] ####[facility] [address] [place] [address] Test Code 971808 Invalid Interpretation Code [facility] Comment on above: Performed By: #### 1 [id number] ####[facility] [address] [place] [address] Test Code 098005 Invalid Interpretation Code [facility] Comment on above: Performed By: #### 1 [id number] ####[facility] [address] [place] [address] Test Name Protein C Invalid Interpretation Code [facility] Comment on above: Performed By: #### 1 [id number] ####[facility] [address] [place] [address] Test Name Protein S Funct Invalid Interpretation Code [facility] Comment on above: Performed By: #### 1 [id number] ####[facility] [address] [place] [address] Test Name Protein S Antig Invalid Interpretation Code [facility] Comment on above: Performed By: #### 1 [id number] ####[facility] [address] [place] [address] Oncology Progress Noteon Oncology Progress Note Normal [facility] Reference Laboratory Testing Ordered By: Sylwia Lubin on 03-11-2023 Test Code 831188 Invalid Interpretation Code [facility] SendOutsSS Test Code 467543 Invalid Interpretation Code [facility] SendOutsSS Test Code 986715 Invalid Interpretation Code [facility] SendOutsSS Test Name Protein C Invalid Interpretation Code [facility] SendOutsSS Test Name Protein S Funct Invalid Interpretation Code [facility] SendOutsSS Test Name Protein S Antig Invalid Interpretation Code [facility] SendOutsSS Population Healthon 03-05-20 23 Population Health Normal [facility] Ambulatory Visit Summaryon 0 03-01-2023 Ambulatory Visit Summary Invalid Interpretation Code [address], [place] [address]- \.br\ Saturday 11:00 AM EST \.br\ With:\.br\ Where: [facility] Primary Care [facility] Family Medicine Office/Clini c Noteon 03-01-2023 Family Medicine Office/Clinic Note Normal [facility] Comment on above: Result Comment: Elec tronically Signed By: Kevin LOBO MD\.br\Date and Time Signed: 03/01/23 13:42 EDT Patient Educationon 03-01-20 Patient Education Normal [facility] C Blood Charcoalon Blood Culture Charcoal Normal [facility] Comment on above: Performed By: #### 1 [id number] ####[facility] [address] [place] [address] Blood Culture Charcoal Normal [facility] Comment on above: Performed By: #### 1 2527044 ####[facility] [address] [place] [address] Prescriptions/Work Noteson 0 02-21-2023 Prescriptions/Work Notes [id number]#[id number] CD:127 Normal [facility] Discharge Instructionson Discharge Instructions [id number]#1.00 CD:127 Normal [facility] Population Healthon 02-21-20 23 Population Health Normal [facility] BMPon 02-19-2023 Anion gap [Moles/Vol] 10 mmol/L Normal 6-16 [facility] Comment on above: Performed By: #### 2 963762, 9919832, 12947648 ####[facility] [address] [place] [address] Calcium [Mass/Vol] 9.1 mg/dL Normal 8.9-11.1 [facility] Comment on above: Performed By: #### 2 358443, 6552385, 14248366 ####[facility] [address] [place] [address] Chloride [Moles/Vol] 99 mmol/L Low 101-111 [facility] Comment on above: Performed By: #### 2 521592, 0641848, 98018163 ####[facility] [address] [place] [address] CO2 [Moles/Vol] 32 mmol/L High 21-31 [facility] Comment on above: Performed By: #### 2 983037, 9810931, 22988660 ####[facility] [address] [place] [address] Creatinine [Mass/Vol] 0.9 mg/dL Normal 0.5-1.3 [facility] Comment on above: Performed By: #### 2 246404, 8681116, 77666962 ####[facility] [address] [place] [address] Glucose [Mass/Vol] 148 mg/dL Normal 55-199 [facility] Comment on above: Result Comment: If t his glucose result represents a fasting glucose, interpretation should refer to the following reference range: 55-99 mg/dL Performed By: #### 2 032026, 3168782, 01366494 ####[facility] [address] [facility] [place] [address] Potassium [Moles/Vol] 4.0 mmol/L Normal 3.5-5.3 [facility] Comment on above: Performed By: #### 2 953184, 3441907, 61141311 ####[facility] [address] [place] [address] Sodium [Moles/Vol] 137 mmol/L Normal 135-145 [facility] Comment on above: Performed By: #### 2 367634, 6023295, 96584649 ####[facility] [address] [facility] [place] [address] Urea nitrogen [Mass/Vol] 10 mg/dL Normal 5-21 [facility] Comment on above: Performed By: #### 2 714583, 4342466, 82683993 ####[facility] [address] [place] [address] Urea nitrogen/Creatinine [Mass ratio] 11 No Units Normal 10-20 [facility] Comment on above: Performed By: #### 2 332306, 1042960, 35462583 ####[facility] [address] [facility] [place] [address] CHEMISTRYOrdered By: Lab ROP User on 02-19-2023 Glucose [Mass/Vol] 159 mg/dL High 55 - 99 mg/dL [facility] C POC Subsection Comment on above: Result Comment: Georgette palacios RN/ POC Device SN [id number] Invalid Interpretation Code [facility] POC Subsection POC User ID [id number] Invalid Interpretation Code [facility] POC Subsection POC Username ISABELL SAWYER Invalid Interpretation Code [facility] POC Subsection Glucose [Mass/Vol] 176 mg/dL High 55 - 99 mg/dL [facility] C POC Subsection Comment on above: Result Comment: Georgette palacios RN/ POC Device SN [id number] Invalid Interpretation Code [facility] POC Subsection POC User ID [id number] Invalid Interpretation Code [facility] POC Subsection POC Username DEBRA GOMEZ Invalid Interpretation Code [facility] POC Subsection Glucose [Mass/Vol] 152 mg/dL High 55 - 99 mg/dL F[facility] C POC Subsection Comment on above: Result Comment: Georgette palacios RN/ POC Device SN [id number] Invalid Interpretation Code [facility] POC Subsection POC User ID [id number] Invalid Interpretation Code [facility] POC Subsection POC Username DEBRA GOMEZ Invalid Interpretation Code [facility] POC Subsection CHEMISTRYOrdered By: SYSTEM SYSTEM on 02-19-2023 Anion gap [Moles/Vol] 10 mmol/L Normal 6 - 16 mEq/L [facility] Remisol Calcium [Mass/Vol] 9.1 mg/dL Normal 8.9 - 11.1 mg/dL [facility] Remisol Chloride [Moles/Vol] 99 mmol/L Low 101 - 111 mmol/L [facility] Remisol CO2 [Moles/Vol] 32 mmol/L High 21 - 31 mmol/L [facility] Remisol Creatinine [Mass/Vol] 0.9 mg/dL Normal 0.5 - 1.3 mg/dL [facility] Remisol GFR/1.73 sq M.predicted among non-blacks MDRD (S/P/Bld) [Vol rate/Area] 89 mL/min/1.73 m2 Normal >=59mL/min/1.73 m2 [facility] Chem S Glucose [Mass/Vol] 148 mg/dL Normal 55 - 199 mg/dL [facility] Remisol Magnesium [Mass/Vol] 1.7 mg/dL Normal 1.3 - 2.4 mg/dL [facility] Remisol Potassium [Moles/Vol] 4.0 mmol/L Normal 3.5 - 5.3 mmol/L [facility] Remisol Sodium [Moles/Vol] 137 mmol/L Normal 135 - 145 mmol/L [facility] Remisol Urea nitrogen [Mass/Vol] 10 mg/dL Normal 5 - 21 mg/dL [facility] Urea nitrogen/Creatinine [Mass ratio] 11 mg/mg Normal 10 - 20 [facility] Remisol COAGULATIONOrdered By: Joana Heart on 02-19-2023 aPTT Coag (PPP) [Time] 70.2 s High 25.1 - 36.5 second(s) [facility] Auto Coag INR Coag (PPP) [Relative time] 1.0 {INR} Invalid Interpretation Code [facility] Auto Coag PT Coag (PPP) [Time] 11.3 s Normal 9.4 - 12.5 second(s) [facility] Auto Coag aPTT Coag (PPP) [Time] 74.4 s High 25.1 - 36.5 second(s) [facility] Auto Coag COAGULATIONOrdered By: Warren Collins on 02-19-2023 aPTT Coag (PPP) [Time] 77.6 s High 25.1 - 36.5 second(s) [facility] Auto Coag INR Coag (PPP) [Relative time] 1.1 {INR} Invalid Interpretation Code [facility] Auto Coag PT Coag (PPP) [Time] 12.5 s Normal 9.4 - 12.5 second(s) [facility] Auto Coag Capillary Glucose POCon 02-09 Glucose [Mass/Vol] 159 mg/dL High 55-99 [facility] Comment on above: Result Comment: Georgette LOPEZ Performed By: #### 2 [id number] ####[facility] [address] [place] [address] Glucose [Mass/Vol] 176 mg/dL High 55-99 [facility] Comment on above: Result Comment: Georgette LOPEZ Performed By: #### 2 [id number] ####[facility] [address] [place] [address] Glucose [Mass/Vol] 152 mg/dL High 55-99 [facility] Comment on above: Result Comment: Georgette LOPEZ Performed By: #### 2 [id number] ####[facility] [address] [place] [address] Discharge Note-Nursingon Discharge Note-Nursing Normal [address], [place] [address]- \.br\ New Follow Up Appointments after Discharge\.br\ Follow Up with [facility] When: 03/01/2023 01:00 PM EDT\.br\ Comments:\.br\ Your follow up appointment is with Dr. Lobo. Thank you.\.br\ Where:\.br\ [address]br\ [place] [address]-\.br\ Business (1)\.br\ Follow Up with [facility] When: \.br\ Comments:\.br\ [facility] will contact you to set up a home visit. Thank you.\.br\ Follow Up with Ralph Jennings When: \.br\ Comments:\.br\ Chronic Venous Insuf\.br\ Please call Kike at Dr. Jennings's office in [place] to make a follow up appointment. The phone number is [phone]. Thank you.\.br\ Where:\.br\ [address]br\ [place] [address]-\.br\ Business (1)\.br\ Follow Up with Matty Murillo When: \.br\ Comments:\.br\ needs PFTs and sleep study\.br\ The central scheduling department at [facility] will need to schedule the PFT's. Please contact Dr. Murillo's offic eto set up a time for your sleep study. 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 Amaro office will contact you to set up an appointment. If you do not hear from them in 3 days, then call [phone] and asked for Oncology/ Hematology department. Thank you.\.br\ Where:\.br\ [facility]\.br\ [address].br\ [place] [address]-\.br\ Medications\.br\ What How Much When Why Instructions Next Dose\.br\ New apixaban (Eliquis 5 mg oral tablet) 2 tabs (10 mg) BID x 7 days then 1 tab bid By Mouth 2 times a day initial fill only Pickup at [facility]/pharmacy #[id number] 02/19 @ 9 PM \.br\ New methocarbamol (Robaxin 500 mg Tab) 2 Tablets By Mouth 4 times a day Duration: 14 Days Pickup at [facility]/pharmacy #[id number] 02/19 @ 9 PM\.br\ Unchanged acetaminophen [...] Unchanged fluticasone nasal (Flonase 0.05 mg/ inh [place]) 2 Sprays Nasal Inhalation Every day Allergic [...] NEEDED, TAKE WHEN TAKING LASIX\.br\ Pharmacy Information\.br\ [facility]/pharmacy #[id number]: [address] [place] [phone]\.br\ \.br\ What How Much When Comments\.br\ Stop [...] High serum protein level\.br\ HTN (hypertension)\.b r\ penitentiary current use of oral hypoglycemic drug\.br\ Numbness [...] pulmonary embolus\.br\ kidney stones\.br\ Left shoulder pain\.br\ 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\.b r\ Lumbago\.br\ [...] The following factors may make you more [facility] Echo Transthoracic Completeo n 02-19-2023 Echo Transthoracic Complete Normal [facility] Inpatient Clinical Summaryon 02-19-2023 Inpatient Clinical Summary Normal [facility] Inpatient Patient Summaryon 02-19-2023 Inpatient Patient Summary Normal [facility] Interdisciplinary Note - J Carlos e Manageron 02-19-2023 Interdisciplinary Note - 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 Normal [facility] Comment on above: Result Comment: Elec tronically Signed By: Gladis Finney RN\.br\Date and Time Signed: 02/19/23 13:20 EDT Magnesiumon 02-19-2023 Magnesium [Mass/Vol] 1.7 mg/dL Normal 1.3-2.4 [facility] Comment on above: Performed By: #### 2 127293, 3437494, [id number] ####[facility] [address] [place] [address] Message from Medicareon 02-09 Message from Medicare [id number]#1.00 CD:127 Normal [facility] PTon 02-19-2023 INR Coag (PPP) [Relative time] 1.0 {INR} Invalid Interpretation Code [facility] Comment on above: Result Comment: INR results are specifically intended to assess patients stabilized on long-term Anticoagulation therapy suggested INR?s ?Less Intensive Anticoagulation? 2.0 ? 3.0Conventional Range 3.0 ? 4.5 Performed By: #### 2 090786, [id number] ####[facility] [address] [place] [address] PT Coag (PPP) [Time] 11.3 second(s) Normal 9.4-12.5 [facility] Comment on above: Result Comment: [...] the same coagulation reagent and instrumentation as [facility]. Currently there are no coagulation studies available worldwide for children to 14 days, and no normal ranges. Performed By: #### 2 619110, 1272640 ####[facility] [address] [place] [address] PT & PTTon 02-19-2023 aPTT Coag (PPP) [Time] 77.6 second(s) High 25.1-36.5 [facility] Comment on above: Result Comment: [...] the same coagulation reagent and instrumentation as [facility]. Currently there are no coagulation studies available worldwide for children to 14 days, and no normal ranges. Heparin therapeutic range (represented by Anti-Factor Xa activity of 0.2 - 0.4 U/mL) corresponds to PTT of 56.6 - 109.0 sec. Performed By: #### 1 [id number] ####[facility] [address] [place] [address] INR Coag (PPP) [Relative time] 1.1 {INR} Invalid Interpretation Code [facility] Comment on above: Result Comment: INR results are specifically intended to assess patients stabilized on long-term Anticoagulation therapy suggested INR?s ?Less Intensive Anticoagulation? 2.0 ? 3.0Conventional Range 3.0 ? 4.5 Performed By: #### 1 [id number] ####[facility] [address] [place] [address] PT Coag (PPP) [Time] 12.5 second(s) Normal 9.4-12.5 [facility] Comment on above: Result Comment: [...] the same coagulation reagent and instrumentation as [facility]. Currently there are no coagulation studies available worldwide for children to 14 days, and no normal ranges. Performed By: #### 1 [id number] ####[facility] [address] [place] [address] PTTon 02-19-2023 aPTT Coag (PPP) [Time] 70.2 second(s) High 25.1-36.5 [facility] Comment on above: Result Comment: [...] the same coagulation reagent and instrumentation as [facility]. Currently there are no coagulation studies available worldwide for children to 14 days, and no normal ranges. Heparin therapeutic range (represented by Anti-Factor Xa activity of 0.2 - 0.4 U/mL) corresponds to PTT of 56.6 - 109.0 sec. Performed By: #### 2 929300, [id number] ####[facility] [address] [place] [address] aPTT Coag (PPP) [Time] 74.4 second(s) High 25.1-36.5 [facility] Comment on above: Result Comment: [...] the same coagulation reagent and instrumentation as [facility]. Currently there are no coagulation studies available worldwide for children to 14 days, and no normal ranges. Heparin therapeutic range (represented by Anti-Factor Xa activity of 0.2 - 0.4 U/mL) corresponds to PTT of 56.6 - 109.0 sec. Performed By: #### 2 455447 ####[facility] [address] [place] [address] Patient Education - Texton 0 02-19-2023 Patient Education - Text Normal [facility] eGFRon 02-19-2023 GFR/1.73 sq M.predicted among non-blacks MDRD (S/P/Bld) [Vol rate/Area] 89 mL/min/1.73 m2 Normal >=59 [facility] Comment on above: Order Comment: Order added by Discern Expert. Result Comment: Manager Summer cristo kidney disease could be indicated at eGFR's of less than 60 mL/min/1.73m2. Kidney failure is indicated at less than 15 mL/min/1.73m2. Performed By: #### 2 943731, 3106271, 04410635 ####[address] [place] [address] Ambulatory Visit Summaryon 0 02-18-2023 Ambulatory Visit Summary Normal [facility] Auto DiffOrdered By: SYSTEM SYSTEM on 02-18-2023 Basophils/100 WBC (Bld) 0.7 % Normal 0.0-2.0 [facility] Comment on above: Order Comment: Order Added by Discern Expert. Performed By: #### 2 086323, 92981470, 6681174, 8271257, 38659780, 6368308, 13507978, 41210872 ####[address] [place] [address] Basophils/Leukocyte s Auto (Bld) [Pure # fraction] 0.0 E9/L Normal 0.0-0.2 [facility] Comment on above: Order Comment: Order Added by Discern Expert. Performed By: #### 2 465232, 43096591, 5834789, 3331883, 71652622, 4956132, 21042854, 95487196 ####[address] [place] [address] Eosinophils/100 WBC (Bld) 1.7 % Normal 0.0-8.0 [facility] Comment on above: Order Comment: Order Added by Discern Expert. Performed By: #### 2 744805, 31560307, 5622983, 9144425, 61420354, 1541255, 30135312, 08534343 ####[place] [facility] [address] [place] [address] Eosinophils/Leukocy [place] Auto (Bld) [Pure # fraction] 0.1 E9/L Normal 0.0-0.5 [facility] Comment on above: Order Comment: Order Added by Discern Expert. Performed By: #### 2 041152, 25973785, 5868649, 5957490, 59106190, 4438264, 87721979, 34611747 ####[place] [address] [address] Lymphocytes/100 WBC (Bld) 20.6 % Normal 14.0-50.0 [facility] Comment on above: Order Comment: Order Added by Discern Expert. Performed By: #### 2 775435, 89307922, 7715311, 3997405, 73619100, 5919472, 73616544, 10517113 ####[place] [address] [address] Lymphocytes/Leukocy [place] Auto (Bld) [Pure # fraction] 1.5 E9/L Normal 1.0-4.0 [facility] Comment on above: Order Comment: Order Added by Discern Expert. Performed By: #### 2 785655, 87232349, 1346295, 7564976, 59422209, 7217043, 74068584, 90106712 ####[place] [address] [place] [address] Monocytes/100 WBC (Bld) 7.5 % Normal 4.0-14.0 [facility] Comment on above: Order Comment: Order Added by Rudi Expert. Performed By: #### 2 142080, 99091346, 7953881, 7835532, 30126011, 1644399, 76160132, 53623975 ####[place] [address] [place] [address] Monocytes/Leukocyte s Auto (Bld) [Pure # fraction] 0.6 E9/L Normal 0.2-1.0 [facility] Comment on above: Order Comment: Order Added by Discern Expert. Performed By: #### 2 166726, 61072384, 4493707, 6352765, 67582518, 1178182, 11236256, 59075182 ####[place] [address] [place] [address] Neutrophils/100 WBC (Bld) 69.5 % Normal 36.0-75.0 [facility] Comment on above: Order Comment: Order Added by Discern Expert. Performed By: #### 2 968977, 97557219, 2845992, 2876293, 75669802, 8620621, 71153534, 55146304 ####[place] [address] [address] Neutrophils/Leukocy [place] Auto (Bld) [Pure # fraction] 5.2 E9/L Normal 2.0-7.5 [facility] Comment on above: Order Comment: Order Added by Discern Expert. Performed By: #### 2 149190, 87852390, 5711793, 1991034, 82427302, 9245753, 11629321, 58807305 ####[place] [address] [place] [address] BMPOrdered By: SYSTEM SYSTEM on 02-18-2023 Creatinine [Mass/Vol] 0.9 mg/dL Normal 0.5-1.3 [facility] Comment on above: Performed By: #### 2 792666, 68510844, 4997470, 9406689, 83380684, 0522358, 35292265, 21924111 ####[place] [address] [place] [address] Urea nitrogen [Mass/Vol] 14 mg/dL Normal 5-21 [facility] Comment on above: Performed By: #### 2 607019, 71242902, 5298854, 6297792, 90656205, 0094518, 44170630, 54381071 ####[place] [facility] [address] [place] [address] Anion gap [Moles/Vol] 13 mmol/L Normal 6-16 [facility] Remisol Comment on above: Performed By: #### 2 208081, 53346855, 4456281, 5634863, 86225761, 1007031, 41079566, 12479942 ####[facility] [address] [place] [address] Calcium [Mass/Vol] 9.0 mg/dL Normal 8.9-11.1 [facility] Rem[facility] Comment on above: Performed By: #### 2 155781, 43697625, 2086719, 0304510, 72370394, 7110335, 26782471, 13611206 ####[place] [address] [place] [address] Chloride [Moles/Vol] 98 mmol/L Low 101-111 [facility] Remisol Comment on above: Performed By: #### 2 094989, 96869566, 9084743, 2143803, 75232776, 1455182, 42995980, 16972926 ####[facility] [address] [place] [address] CO2 [Moles/Vol] 27 mmol/L Normal 21-31 [facility] Comment on above: Performed By: #### 2 728378, 77728158, 1267302, 6230310, 62255616, 8086105, 20386325, 78613974 ####[place] [facility] [address] [place] [address] Glucose [Mass/Vol] 155 mg/dL Normal 55-199 [facility] Remisol Comment on above: Result Comment: If t his glucose result represents a fasting glucose, interpretation should refer to the following reference range: 55-99 mg/dL Performed By: #### 2 703655, 56775488, 4351789, 8836873, 61256684, 6800641, 04396959, 92180463 ####[facility] [address] [place] [address] Potassium [Moles/Vol] 3.7 mmol/L Normal 3.5-5.3 [facility] Remisol Comment on above: Performed By: #### 2 115427, 21299005, 4544373, 6915635, 96116798, 1629172, 66025842, 78651477 ####[facility] [address] [place] [address] Sodium [Moles/Vol] 134 mmol/L Low 135-145 [facility] Remisol Comment on above: Performed By: #### 2 644251, 91383131, 0752472, 7994686, 51319485, 6600988, 10533985, 48829065 ####[facility] [address] [place] [address] BMPon 02-18-2023 Urea nitrogen/Creatinine [Mass ratio] 16 No Units Normal 10-20 [facility] Comment on above: Performed By: #### 2 862798, 31051660, 6111493, 1880963, 44416476, 5124971, 78463662, 67331676 ####[address] [address] BNPon 02-18-2023 Int Ctr BNP Pass Normal [facility] Comment on above: Performed By: #### 2 668935, 25751291, 1220681, 6283720, 40357885, 9738649, 14616558, 50688623 ####[facility] [address] [place] [address] BNPOrdered By: Gonzales up on 02-18-2023 Natriuretic peptide B (Bld) [Mass/Vol] 21 pg/mL Normal 5-80 [facility]eManSS Comment on above: Performed By: #### 2 285260, 51167152, 7906155, 7658148, 85171450, 5452911, 94824505, 90319518 ####[address] [place] [address] CBC w/ Auto DiffOrdered By: Rafia Caballero on 02-18-2023 Erythrocyte distribution width (RBC) [Ratio] 14.8 % High 10.9-14.2 [facility] Comment on above: Performed By: #### 2 942010, 02883736, 2779735, 4624511, 19548069, 5365437, 66042819, 23871770 ####[place] [address] [place] [address] Hematocrit (Bld) [Volume fraction] 42.8 % Normal 37.7-49.0 [facility] Comment on above: Performed By: #### 2 793892, 95223610, 2164671, 5188906, 31884575, 4017810, 92492199, 99604013 ####[place] [address] Hemoglobin (Bld) [Mass/Vol] 14.5 g/dL Normal 13.5-17.5 [facility] Comment on above: Performed By: #### 2 586297, 19578765, 8012722, 7664910, 15355771, 0463483, 12178303, 68476291 ####[place] [address] MCH (RBC) [Entitic mass] 31.3 pg Normal 27.0-34.0 [facility] Comment on above: Performed By: #### 2 342602, 62118464, 4189946, 3581006, 63399735, 4321188, 14313486, 21294457 ####[place] [address] [place] [address] MCHC (RBC) [Mass/Vol] 33.9 g/dL Normal 31.4-36.0 [facility] Comment on above: Performed By: #### 2 457328, 28981216, 2556916, 2868938, 38960421, 4119324, 82568588, 79530673 ####[place] MCV (RBC) [Entitic vol] 92.4 fL Normal 80.0-100.0 [facility] Comment on above: Performed By: #### 2 369315, 10857222, 9698046, 5472812, 09569321, 5233585, 86560694, 99748427 ####[place] [facility] [address] [place] [address] Platelet mean volume (Bld) [Entitic vol] 8.2 fL Normal 6.4-10.8 [facility] Comment on above: Performed By: #### 2 678355, 74036846, 1428668, 5359964, 39000841, 7266535, 22283705, 24811044 ####[place] [address] Platelets (Bld) [#/Vol] 167.0 E9/L Normal 150.0-500.0 [facility] Comment on above: Performed By: #### 2 972182, 76367103, 5395931, 9877492, 29983129, 8143205, 69766511, 85547915 ####[place] [address] [place] [address] RBC (Bld) [#/Vol] 4.6 E12/L Normal 4.3-5.9 [facility] Comment on above: Performed By: #### 2 295743, 85689404, 0939870, 0108185, 64927078, 1332367, 02807782, 95199696 ####[place] [address] [place] [address] WBC corrected for nucl RBC Auto (Bld) [#/Vol] 7.5 E9/L Normal 4.0-11.0 [facility] Comment on above: Performed By: #### 2 060023, 84944955, 6202581, 7910983, 04952733, 1172009, 76220397, 35292490 ####[place] [address] [place] [address] CHEMISTRYOrdered By: SYSTEM SYSTEM on 02-18-2023 Troponin I.cardiac [Mass/Vol] 13.30 pg/mL Low 15.90 - 38.40 pg/mL [facility] Troponin I.cardiac [Mass/Vol] 12.90 pg/mL Low 15.90 - 38.40 pg/mL [facility] Remisol Troponin I.cardiac [Mass/Vol] 13.60 pg/mL Low 15.90 - 38.40 pg/mL [facility] Remisol Urea nitrogen/Creatinine [Mass ratio] 16 mg/mg Normal - [facility] Remisol COAGULATIONOrdered By: Nani on Fernando on 02-18-2023 PT Coag (PPP) [Time] 11.2 s Normal 9.4 - 12.5 second(s) [facility] Auto Coag CTA Cheston 02-18-2023 CTA Chest Normal [facility] Capillary Glucose POCon 02-09 Glucose [Mass/Vol] 173 mg/dL High 55-99 [facility] Comment on above: Result Comment: Ashley kati Meter Performed By: #### 2 11354362 ####[facility] [address] [place] [address] Glucose [Mass/Vol] 131 mg/dL High 55-99 [facility] Comment on above: Result Comment: Georgette palacios RN/ Performed By: #### 2 34993730 ####[facility] [address] [place] [address] Consent for Treatmenton 02-09 Consent for Treatment [id number]#1.00C D:127 Normal [facility] ED Clinical Summaryon 2022 ED Clinical Summary Normal [facility] ED Note-Physicianon 02-19-20 23 ED Note-Physician Normal [facility] Comment on above: Result Comment: Elec tronically Signed By: Arturo Alvarez M.D.\Date and Time Signed: 02/18/23 12:50 EDT ED Patient Education Noteon 02-18-2023 ED Patient Education Note Normal [facility] ED Patient Summaryon 023 ED Patient Summary Normal [facility] Family Medicine Office/Clini c Noteon 02-18-2023 Family Medicine Office/Clinic Note Normal [facility] Comment on above: Result Comment: Elec tronically Signed By: Mt GOODEN DO, FAAFP\Date and Time Signed: 02/18/23 08:47 EDT [employer]borne Mobile Education Videoon Airborne Mobile Education Video Yes Patient Avoiding Infections in the Hospital Normal [facility] Interdisciplinary Note - Raulito singon 02-18-2023 Interdisciplinary Note - Nursing Received wound consult, upon assessment no open areas noted. Patient and stated at times legs will weep. Order put in; May use ABD and Kerlex if legs begin to weep. Normal [facility] MagnesiumOrdered By: SYSTEM SYSTEM on 02-18-2023 Magnesium [Mass/Vol] 1.5 mg/dL Normal 1.3-2.4 [facility] Remisol Comment on above: Performed By: #### 2 394471, 84646543, 5045013, 2720306, 53284785, 1869446, 40883986, 20252325 ####[facility] [address] [place] [address] Monitor Recordon 02-18-2023 Monitor Record [id number]#1.00 CD:127 Normal [facility] Monitor Record [id number]#1.00 CD:127 Normal [facility] Monitor Record [id number]#1.00 CD:127 Normal [facility] No Panel InformationOrdered By: ANGPROCESSSERVER MICROBIOLOGY on 02-18-2023 Blood Culture Charcoal No growth at 1 day. Final to follow at 7 days. [facility] PT & PTTon 02-18-2023 aPTT Coag (PPP) [Time] 29.6 second(s) Normal 25.1-36.5 [facility] Comment on above: Result Comment: [...] the same coagulation reagent and instrumentation as [facility]. Currently there are no coagulation studies available worldwide for children to 14 days, and no normal ranges. Heparin therapeutic range (represented by Anti-Factor Xa activity of 0.2 - 0.4 U/mL) corresponds to PTT of 56.6 - 109.0 sec. Performed By: #### 2 894312, 24028472, 8417781, 5127650, 32713829, 8113398, 43854445, 54101050 ####[facility] [address] [place] [address] PT Coag (PPP) [Time] 11.2 second(s) Normal 9.4-12.5 [facility] Comment on above: Result Comment: [...] the same coagulation reagent and instrumentation as [facility]. Currently there are no coagulation studies available worldwide for children to 14 days, and no normal ranges. Performed By: #### 2 136970, 49855628, 2456524, 6851918, 74127120, 8769128, 49265450, 15935485 ####[facility] [address] [place] [address] PT & PTTOrdered By: Catalina King on 02-18-2023 INR Coag (PPP) [Relative time] 1.0 {INR} Invalid Interpretation Code [facility] Auto Coag Comment on above: Result Comment: INR results are specifically intended to assess patients stabilized on long-term Anticoagulation therapy suggested INR?s ?Less Intensive Anticoagulation? 2.0 ? 3.0Conventional Range 3.0 ? 4.5 Performed By: #### 2 849793, 60868804, 6059918, 9727103, 66326569, 9856958, 36655333, 31707999 ####[place] [address] [place] [address] PTTon 02-18-2023 aPTT Coag (PPP) [Time] 98.5 second(s) Abnormal 25.1-36.5 [facility] Comment on above: Result Comment: [...] the same coagulation reagent and instrumentation as [facility]. Currently there are no coagulation studies available worldwide for children to 14 days, and no normal ranges. Heparin therapeutic range (represented by Anti-Factor Xa activity of 0.2 - 0.4 U/mL) corresponds to PTT of 56.6 - 109.0 sec. Performed By: #### 2 642850 ####[facility] [address] [place] [address] Patient Educationon 02-19-20 23 Patient Education Normal [facility] Pre-Arrival Noteon 3 Pre-Arrival Note Normal [facility] Troponin 0 Hr.on 02-18-2023 Troponin I.cardiac [Mass/Vol] 12.00 pg/mL Low 15.90-38.40 [facility] Comment on above: Result Comment: The 95% CI (Confidence Interval) PPV (Positive Predictive Value) for myocardial infarction in females is 38 pg/mL, in males 51 pg/mL. The results should be used in conjunction with clinical conditions of myocardial infarction.(Access High Sensitivity Troponin I Instructions For Use, [email or web address], March 2018) Performed By: #### 2 703245, 78499065, 1667159, 7358457, 24195581, 0103901, 56408717, 38568563 ####[facility] [address] [place] [address] Troponin 3 Hr.on 02-18-2023 Troponin I.cardiac [Mass/Vol] 13.60 pg/mL Low 15.90-38.40 [facility] Comment on above: Result Comment: The 95% CI (Confidence Interval) PPV (Positive Predictive Value) for myocardial infarction in females is 38 pg/mL, in males 51 pg/mL. The results should be used in conjunction with clinical conditions of myocardial infarction.(Access High Sensitivity Troponin I Instructions For Use, [email or web address], March 2018) Performed By: #### 1 1820854 ####[facility] [address] [place] [address] Troponin 6 Hr.on 02-18-2023 Troponin I.cardiac [Mass/Vol] 12.90 pg/mL Low 15.90-38.40 [facility] Comment on above: Result Comment: The 95% CI (Confidence Interval) PPV (Positive Predictive Value) for myocardial infarction in females is 38 pg/mL, in males 51 pg/mL. The results should be used in conjunction with clinical conditions of myocardial infarction.(Access High Sensitivity Troponin I Instructions For Use, [email or web address] 2018) Performed By: #### 1 0833673 ####[facility] [address] [place] [address] Troponin 9 Hr.on 02-18-2023 Troponin I.cardiac [Mass/Vol] 13.30 pg/mL Low 15.90-38.40 [facility] Comment on above: Result Comment: The 95% CI (Confidence Interval) PPV (Positive Predictive Value) for myocardial infarction in females is 38 pg/mL, in males 51 pg/mL. The results should be used in conjunction with clinical conditions of myocardial infarction.(Access High Sensitivity Troponin I Instructions For Use, [employer], March 2018) Performed By: #### 1 [id number] ####[facility] [address] [place] [address] US LE Venous Duplex Bilatera allison 02-18-2023 US LE Venous Duplex Bilateral Normal [facility] XR Abdomen 1 Viewon 02-19-20 23 XR Abdomen 1 View Normal [facility] XR Chest Single Viewon 02-18 XR Chest Single View Normal [facility] eGFROrdered By: SYSTEM SYSTE M on 02-18-2023 GFR/1.73 sq M.predicted among non-blacks MDRD (S/P/Bld) [Vol rate/Area] 89 mL/min/1.73 m2 Normal >=59 [facility] Chem S Comment on above: Order Comment: Order added by Discern Expert. Result Comment: Manager Summer cristo kidney disease could be indicated at eGFR's of less than 60 mL/min/1.73m2. Kidney failure is indicated at less than 15 mL/min/1.73m2. Performed By: #### 2 673260, 56220318, 7220757, 9223719, 25455829, 2107273, 84768262, 64809137 ####[facility] [address] [place] [address] Auto Diffon 02-15-2023 Basophils/100 WBC (Bld) 1.0 % Normal 0.0-2.0 [facility] Comment on above: Order Comment: Order Added by Discern Expert. Performed By: #### 2 011200, 3095221, 7689031 ####[facility] [address] [place] [address] Basophils/Leukocyte s Auto (Bld) [Pure # fraction] 0.1 E9/L Normal 0.0-0.2 [facility] Comment on above: Order Comment: Order Added by Discern Expert. Performed By: #### 2 060423, 8832640, 0891582 ####[address] [place] [address] Eosinophils/100 WBC (Bld) 2.1 % Normal 0.0-8.0 [facility] Comment on above: Order Comment: Order Added by Discern Expert. Performed By: #### 2 049266, 1968562, 8736478 ####[address] [address] Eosinophils/Leukocy [place] Auto (Bld) [Pure # fraction] 0.2 E9/L Normal 0.0-0.5 [facility] Comment on above: Order Comment: Order Added by Rudi Expert. Performed By: #### 2 704439, 7783516, 2508919 ####[address] [address] Lymphocytes/100 WBC (Bld) 23.5 % Normal 14.0-50.0 [facility] Comment on above: Order Comment: Order Added by Rudi Expert. Performed By: #### 2 032672, 6836315, 1382485 ####[address] [address] Lymphocytes/Leukocy [place] Auto (Bld) [Pure # fraction] 1.9 E9/L Normal 1.0-4.0 [facility] Comment on above: Order Comment: Order Added by Discern Expert. Performed By: #### 2 469206, 6969798, 3963216 ####[address] [address] Monocytes/100 WBC (Bld) 7.5 % Normal 4.0-14.0 [facility] Comment on above: Order Comment: Order Added by Rudi Expert. Performed By: #### 2 550752, 8643448, 6507346 ####[address] [address] Monocytes/Leukocyte s Auto (Bld) [Pure # fraction] 0.6 E9/L Normal 0.2-1.0 [facility] Comment on above: Order Comment: Order Added by Discern Expert. Performed By: #### 2 116225, 7595355, 7850072 ####[place] [place] [address] Neutrophils/100 WBC (Bld) 65.9 % Normal 36.0-75.0 [facility] Comment on above: Order Comment: Order Added by Discern Expert. Performed By: #### 2 345821, 8622018, 1253465 ####[address] [address] Neutrophils/Leukocy [place] Auto (Bld) [Pure # fraction] 5.2 E9/L Normal 2.0-7.5 [facility] Comment on above: Order Comment: Order Added by Discern Expert. Performed By: #### 2 621696, 2056772, 0532158 ####[address] [address] CBC w/ Auto Diffon 3 Erythrocyte distribution width (RBC) [Ratio] 15.1 % High 10.9-14.2 [facility] Comment on above: Performed By: #### 2 167559, 2204517, 7964117 ####[address] [address] Hematocrit (Bld) [Volume fraction] 44.1 % Normal 37.7-49.0 [facility] Comment on above: Performed By: #### 2 923801, 4820584, 2581575 ####[address] [address] Hemoglobin (Bld) [Mass/Vol] 14.7 g/dL Normal 13.5-17.5 [facility] Comment on above: Performed By: #### 2 707823, 5738526, 8604579 ####[place] [place] [address] MCH (RBC) [Entitic mass] 30.8 pg Normal 27.0-34.0 [facility] Comment on above: Performed By: #### 2 902877, 9451588, 1547573 ####[address] [address] MCHC (RBC) [Mass/Vol] 33.2 g/dL Normal 31.4-36.0 [facility] Comment on above: Performed By: #### 2 765723, 2308002, 8584221 ####[place] [address] MCV (RBC) [Entitic vol] 92.7 fL Normal 80.0-100.0 [facility] Comment on above: Performed By: #### 2 992165, 1262741, 8757425 ####[place] [address] Platelet mean volume (Bld) [Entitic vol] 8.3 fL Normal 6.4-10.8 [facility] Comment on above: Performed By: #### 2 036944, 2317133, 7470277 ####[place] [address] Platelets (Bld) [#/Vol] 177.0 E9/L Normal 150.0-500.0 [facility] Comment on above: Performed By: #### 2 439977, 8343574, 8358888 ####[address] [address] RBC (Bld) [#/Vol] 4.8 E12/L Normal 4.3-5.9 [facility] Comment on above: Performed By: #### 2 972212, 9752229, 6767394 ####[address] [address] WBC corrected for nucl RBC Auto (Bld) [#/Vol] 8.0 E9/L Normal 4.0-11.0 [facility] Comment on above: Performed By: #### 2 843039, 1042758, 5807194 ####[place] [address] CHEMISTRYOrdered By: SYSTEM SYSTEM on 02-15-2023 Albumin [...] g/dL High 6.0 - 7.8 gm/dL F C Remisol CHEMISTRYOrdered By: Gonzales William on 02-15-2023 HbA1c (Bld) [Mass fraction] 6.8 % High <=5.9% FT ChemAutoSS Consent for Treatmenton Consent for Treatment [id number]#1.00C D:127 Normal [facility] HEMATOLOGYOrdered By: SYSTEM SYSTEM on [...] 5.2 E9/L Normal 2.0 - 7.5 E9/L FT HemeAutoSS HEMATOLOGYOrdered By: Keturah Bar on 02-15-2023 [...] 8.0 E9/L Normal 4.0 - 11.0 E9/L [facility] HemeAutoSS Hep Func Panelon 02-15-2023 Albumin [Mass/Vol] 3.9 g/dL Normal 3.3-5.0 [facility] Comment on above: Performed By: #### 2 695222, 4113898, 5801786 ####[facility] [address] [place] [address] Albumin/Globulin (S) [Mass conc ratio] 1.0 Low 1.1-2.2 [facility] Comment on above: Performed By: #### 2 335351, 7598254, 4655370 ####[facility] [address] [place] [address] ALP [Catalytic activity/Vol] 66 Int._Unit/L Normal 21-98 [facility] Comment on above: Performed By: #### 2 362286, 6286447, 1299844 ####[facility] [address] [place] [address] ALT No additional P-5'-P [Catalytic activity/Vol] 32 Int._Unit/L Normal 6-46 [facility] Comment on above: Performed By: #### 2 838977, 3135935, 8283700 ####[facility] [address] [place] [address] AST [Catalytic activity/Vol] 36 Int._Unit/L Normal 5-43 [facility] Comment on above: Performed By: #### 2 578602, 7736118, 3863035 ####[facility] [address] [place] [address] Bilirubin [Mass/Vol] 0.6 mg/dL Normal 0.0-1.1 [facility] Comment on above: Performed By: #### 2 088172, 6079439, 2987911 ####[facility] [address] [place] [address] Bilirubin.direct [Mass/Vol] 0.1 mg/dL Normal 0.1-0.4 [facility] Comment on above: Performed By: #### 2 802668, 6071571, 7900233 ####[address] [address] Bilirubin.indirect [Mass or moles/Vol] 0.5 mg/dL Normal 0.1-0.9 [facility] Comment on above: Performed By: #### 2 467501, 0747003, 7698575 ####[address] [address] Globulin (S) [Mass/Vol] 4.0 g/dL Normal 1.4-4.0 [facility] Comment on above: Performed By: #### 2 787630, 6089068, 7247401 ####[address] [address] Protein [Mass/Vol] 7.9 g/dL High 6.0-7.8 [facility] Comment on above: Performed By: #### 2 034794, 3768232, 4594860 ####[address] [address] TzkF3bqk 02-15-2023 HbA1c (Bld) [Mass fraction] 6.8 % High <=5.9 [facility] Comment on above: Performed By: #### 7 [id number] ####[address] [address] [facility] C[facility] Tele[facility] (RHEUMN) JAS GONZALEZ ([id number]) 1950 M DEF Date Time Provider Department [...] Status:Closed by JUMA MONK on 01/28/23 Normal [facility] CRP SerPl-mCncon 01-25-2023 CRP [Mass/Vol] 0.7 mg/dL Normal <0.9 [facility] Comment on above: Order Comment: Speci men Type: BLOOD SPECIMENOrdering Facility: [facility] Address: [place] [address] Performed By: #### 1 988-5 ####[facility] LABIA [id number] [address] [place] ESR Westergren method (Bld) [Velocity]on 01-25-2023 ESR (Bld) [Velocity] 24 mm/h High 0-15 [facility] Comment on above: Order Comment: Speci men Type: BLOOD SPECIMENOrdering Facility: [facility] Address: [place] [address] Performed By: #### 4 537-7 ####[facility] [id number] [address] [place] MRI SACRUM/COCCYX WO IVCONon [...] fat suppression and field inhomogeneity, and diminished peyzru-xe-wyywr ratio. SACROILIAC JOINTS: Apparent mild partial ankylosis [...] cyst. Marked lower lumbar spine degenerative changes. Terrapin Fisher: [facility] Transcribe Date/Time: Jan 25 2023 11:15A Dictated by : GAGE BLUM MD This examination was interpreted and the report reviewed and electronically signed by: GAGE BLUM MD on Jan 25 2023 12:05PM EST [id number] Normal [facility] Consent for Procedure/Surger yon 01-24-2023 Consent for Procedure/Surgery [id number]#1.00 CD:127 Normal [facility] Gastroenterology Office/Clin ic Noteon 01-24-2023 Gastroenterology Office/Clinic Note Normal [facility] Comment on above: Result Comment: Elec tronically Signed By: Zahra Barton\.br\Date and Time Signed: 01/23/23 12:42 EDT\.br\Electronically Co-Signed By: Joycelyn CHERRY MD\.br\Date and Time Co-Signed: 01/24/23 09:04 EDT Ambulatory Visit Summaryon 0 01-23-2023 Ambulatory Visit Summary Normal [address] [facility], [facility] [place] [address]- \.br\ Medications\.br\ What How Much When Why [...] Unchanged fluticasone nasal (Flonase 0.05 mg/ inh [place]) 2 Sprays Nasal Inhalation Every day Allergic [...] with hiatal hernia\.br\ High serum protein level\.br\ penitentiary current use of oral hypoglycemic drug\.br\ Numbness [...] pulmonary embolus\.br\ kidney stones\.br\ Left shoulder pain\.br\ 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\.b r\ Lumbago\.br\ Lumbar radiculopathy, chronic\.br\ Morbid obesity due to excess calories\.br\ Obesity\.br\ Pulmonary embolism on right\.br\ Rib pain on right side\.br\ Spasm of muscle of lower back\.br\ Vertigo, benign paroxysmal\.br\ \.br\ [facility] Physician Orderon 12-18-2022 Physician Order [id number]#1.00C D:127 Normal [facility] Physician Order [id number]#1.00C D:127 Normal [facility] CNPN Telephone (RHEUMN) JAS GONZALEZ ([id number]) 1950 M DEF Date Time Provider Department [...] elsewhere classified [M53.3] Order(s):MRI SACRUM/COCCYX WO IVCON [[id number]] Order #: [id number] FUTURE C-REACTIVE PROTEIN (CRP) [SQCRP] Order #: [id number] FUTURE SED RATE WESTERGREN [SQWSR] Order #: [id number] FUTURE Prescriptions as of 12/17/2022 - aspirin [...] Status:Closed by JUMA MONK on 12/17/22 Normal [facility] Ambulatory Visit Summaryon 0 12-10-2022 Ambulatory Visit Summary Invalid Interpretation Code [address] [place] [address]- \.br\ Saturday 11:00 AM EST \.br\ With:\.br\ Where: [facility] Primary Care [facility] Family Medicine Office/Clini c Noteon 12-10-2022 Family Medicine Office/Clinic Note Normal [facility] Comment on above: Result Comment: Elec tronically Signed By: Mt GOODEN DO, FAAFP\.br\Date and Time Signed: 12/10/22 10:50 EDT Patient Educationon 12-11-19 Patient Education Normal [facility] Consultation Noteon 12-09-19 Consultation Note [id number] :127 Normal [facility] CNOVon 12-05-2022 CNOV Office Visit (KRYSTIN ) JAS GONZALEZ ([id number]) 1950 M DEF Date Time Provider Department 12/05/22 1:00 PM JUMA MONK During your visit today, we recorded the following information about you: Pulse Respiration Blood pressure Weight 83/minute 18/minute 118/74 154.2 kg Juma Monk MD 12/05/2022 1:29 PM Signed [facility] Out[facility] Date of Service: 12/05/2022 Patient: Jas Gonzalez Medical Record: [id number] Primary Care Physician: No primary care provider [...] Social Hist (more content not included)... Normal [facility] Coding Summary.on 12-05-2022 Coding Summary. 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 [facility]in [facility] Transcribe Date/Time: Dec 06 2022 2:43P Dictated by : GAGE BLUM MD This examination was interpreted and the report reviewed and electronically signed by: GAGE BLUM MD on Dec 06 2022 2:46PM EST [id number] Normal [facility] Anibal 12-04-2022 THEO Telephone (KRYSTIN) JAS GONZALEZ ([id number]) 1950 M DEF Date Time Provider Department [...] Status:Closed by ANGIE LARA on 12/04/22 Normal [facility] ABO/Rhon 12-02-2022 ABO/Rh Positive Invalid Interpretation Code [facility] Comment on above: Performed By: #### 1 7835774, 4706605, 01560286, 07002612 ####[facility] [address] [place] [address] ABO/Rh History Checkon 12-02 ABO/Rh History Check Patient discharged prior Normal [facility] Comment on above: Performed By: #### 1 3966073, 7988668, 81730218, 80052935 ####[facility] [address] [place] [address] ABSCon 12-02-2022 ABSC Gel Interp Negative Normal [facility] Comment on above: Performed By: #### 1 8172524, 1689920, 00498301, 68696359 ####[facility] [address] [place] [address] Auto Diffon 12-02-2022 Basophils/100 WBC (Bld) 0.6 % Normal 0.0-2.0 [facility] Comment on above: Order Comment: Order Added by Discern Expert. Performed By: #### 2 961320, 70782652, 2617147, 0837059, 24338709, 1905888 ####[address] [address] Basophils/Leukocyte s Auto (Bld) [Pure # fraction] 0.0 E9/L Normal 0.0-0.2 [facility] Comment on above: Order Comment: Order Added by Discern Expert. Performed By: #### 2 355208, 44025901, 9160413, 9555687, 27561892, 4072902 ####[place] [address] [place] [address] Eosinophils/100 WBC (Bld) 1.9 % Normal 0.0-8.0 [facility] Comment on above: Order Comment: Order Added by Discern Expert. Performed By: #### 2 189468, 52418035, 5257382, 3237151, 41232557, 9634996 ####[place] [address] [place] [address] Eosinophils/Leukocy cam[place] Auto (Bld) [Pure # fraction] 0.1 E9/L Normal 0.0-0.5 [facility] Comment on above: Order Comment: Order Added by Discern Expert. Performed By: #### 2 114900, 37708088, 3425889, 2883291, 50168063, 0919148 ####[place] [address] [place] [address] Lymphocytes/100 WBC (Bld) 28.4 % Normal 14.0-50.0 [facility] Comment on above: Order Comment: Order Added by Discern Expert. Performed By: #### 2 620159, 84885015, 8780770, 9096226, 54693617, 8288479 ####[place] [address] [place] [address] Lymphocytes/Leukocy [place] Auto (Bld) [Pure # fraction] 1.5 E9/L Normal 1.0-4.0 [facility] Comment on above: Order Comment: Order Added by Discern Expert. Performed By: #### 2 061557, 76402376, 1042241, 9702663, 74073688, 1174995 ####[address] [address] Monocytes/100 WBC (Bld) 9.3 % Normal 4.0-14.0 [facility] Comment on above: Order Comment: Order Added by Discern Expert. Performed By: #### 2 080603, 98156762, 9989991, 3999821, 31203256, 3593869 ####[address] [address] Monocytes/Leukocyte s Auto (Bld) [Pure # fraction] 0.5 E9/L Normal 0.2-1.0 [facility] Comment on above: Order Comment: Order Added by Discern Expert. Performed By: #### 2 421745, 14411439, 0092187, 6818368, 62996452, 8761481 ####[address] [address] Neutrophils/100 WBC (Bld) 59.8 % Normal 36.0-75.0 [facility] Comment on above: Order Comment: Order Added by Discern Expert. Performed By: #### 2 421521, 54659587, 4235400, 8779183, 77580711, 4363377 ####[place] [address] [place] [address] Neutrophils/Leukocy camden Auto (Bld) [Pure # fraction] 3.1 E9/L Normal 2.0-7.5 [facility] Comment on above: Order Comment: Order Added by Discern Expert. Performed By: #### 2 708091, 87201974, 4532749, 4041719, 21449455, 3423378 ####[facility] [address] [place] [address] BLOOD BANKOrdered By: Keturah Bar on 12-02-2022 ABO/Rh Interp Positive Invalid Interpretation Code [facility] BB Subsection ABSC Gel Interp Negative (12/02/22 1:07 PM) Normal [facility] BB Subsection BMPon 12-02-2022 Creatinine [Mass/Vol] 0.9 mg/dL Normal 0.5-1.3 [facility] Comment on above: Performed By: #### 2 144861, 30556897, 2031018, 2030292, 71678457, 9752990 ####[facility] [address] [place] [address] Urea nitrogen [Mass/Vol] 14 mg/dL Normal 5-21 [facility] Comment on above: Performed By: #### 2 624480, 81572847, 0251013, 3958848, 74668956, 0917463 ####[facility] [address] [place] [address] Urea nitrogen/Creatinine [Mass ratio] 16 No Units Normal 10-20 [facility] Comment on above: Performed By: #### 2 261218, 67229723, 8991303, 5384841, 20551910, 8168967 ####[facility] [address] [place] [address] Anion gap [Moles/Vol] 10 mmol/L Normal 6-16 [facility] Comment on above: Performed By: #### 2 696493, 13507955, 5249693, 6791204, 86845331, 1042825 ####[facility] [address] [place] [address] Calcium [Mass/Vol] 8.9 mg/dL Normal 8.9-11.1 [facility] Comment on above: Performed By: #### 2 115166, 18733803, 7484394, 9335904, 60464125, 5902591 ####[facility] [address] [place] [address] Chloride [Moles/Vol] 98 mmol/L Low 101-111 [facility] Comment on above: Performed By: #### 2 408563, 34587612, 9448676, 3238218, 21151030, 1236204 ####[facility] [address] [place] [address] CO2 [Moles/Vol] 30 mmol/L Normal 21-31 [facility] Comment on above: Performed By: #### 2 552707, 34286575, 7600067, 9636400, 80510004, 9780400 ####[facility] [address] [place] [address] Glucose [Mass/Vol] 137 mg/dL Normal 55-199 [facility] Comment on above: Result Comment: If t his glucose result represents a fasting glucose, interpretation should refer to the following reference range: 55-99 mg/dL Performed By: #### 2 670794, 83777226, 5796831, 5769484, 43971101, 3451984 ####[facility] [address] [place] [address] Potassium [Moles/Vol] 3.6 mmol/L Normal 3.5-5.3 [facility] Comment on above: Performed By: #### 2 670502, 67632545, 1543320, 9107004, 78239408, 5335629 ####[facility] [address] [place] [address] Sodium [Moles/Vol] 134 mmol/L Low 135-145 [facility] Comment on above: Performed By: #### 2 843917, 55634929, 0605189, 5254629, 23711489, 1394535 ####[facility] [address] [place] [address] Blood Bank ID#on 12-02-2022 BBID# [id number] Invalid Interpretation Code [facility] Comment on above: Performed By: #### 1 8216163, 0188635, 07301988, 50070906 ####[facility] [address] [place] [address] CBC w/ Auto Diffon 3 Erythrocyte distribution width (RBC) [Ratio] 13.9 % Normal 10.9-14.2 [facility] Comment on above: Performed By: #### 2 095696, 98580393, 1637343, 5352519, 29530069, 0040125 ####[facility] [address] [place] [address] Hematocrit (Bld) [Volume fraction] 44.1 % Normal 37.7-49.0 [facility] Comment on above: Performed By: #### 2 573358, 72921675, 0521726, 5724465, 48001778, 6399861 ####[facility] [address] [place] [address] Hemoglobin (Bld) [Mass/Vol] 14.5 g/dL Normal 13.5-17.5 [facility] Comment on above: Performed By: #### 2 197004, 36667835, 8302442, 6872041, 25693490, 5253758 ####[facility] [address] [place] [address] MCH (RBC) [Entitic mass] 30.7 pg Normal 27.0-34.0 [facility] Comment on above: Performed By: #### 2 776946, 82335457, 3067326, 6939888, 51350603, 1512654 ####[facility] [address] [place] [address] MCHC (RBC) [Mass/Vol] 32.9 g/dL Normal 31.4-36.0 [facility] Comment on above: Performed By: #### 2 501645, 78129657, 7566584, 7764117, 00221600, 9474082 ####[facility] [address] [place] [address] MCV (RBC) [Entitic vol] 93.1 fL Normal 80.0-100.0 [facility] Comment on above: Performed By: #### 2 270285, 17455570, 0645547, 3662703, 30609801, 5935808 ####[facility] [address] [place] [address] Platelet mean volume (Bld) [Entitic vol] 8.2 fL Normal 6.4-10.8 [facility] Comment on above: Performed By: #### 2 716367, 70694075, 3425789, 8429208, 28354088, 9801306 ####[place] [address] [place] [address] Platelets (Bld) [#/Vol] 135.0 E9/L Low 150.0-500.0 [facility] Comment on above: Performed By: #### 2 487630, 37472826, 2698895, 0637212, 44379355, 8201246 ####[address] [address] RBC (Bld) [#/Vol] 4.7 E12/L Normal 4.3-5.9 [facility] Comment on above: Performed By: #### 2 754133, 56294372, 4388835, 3809737, 85818358, 8836726 ####[address] [address] WBC corrected for nucl RBC Auto (Bld) [#/Vol] 5.2 E9/L Normal 4.0-11.0 [facility] Comment on above: Performed By: #### 2 636931, 40714422, 0966887, 1709651, 53145145, 8380547 ####[place] [address] [place] [address] CHEMISTRYOrdered By: SYSTEM SYSTEM on 12-02-2022 Albumin [...] [Vol rate/Area] mL/min/1.73 m2 Normal >=59mL/min/1.73 m2 [facility] Chem S GFR/1.73 sq M.predicted among non-blacks MDRD (S/P/Bld) [Vol rate/Area] mL/min/1.73 m2 Normal >=59mL/min/1.73 m2 [facility] Chem S Globulin (S) [Mass/Vol] 3.5 g/dL Normal 1.4 - 4.0 gm/dL FT Remisol Glucose [Mass/Vol] 137 mg/dL Normal 55 - 199 mg/dL FT Remisol Potassium [Moles/Vol] 3.6 mmol/L Normal 3.5 - 5.3 mmol/L [facility] Remisol Protein [Mass/Vol] 7.0 g/dL Normal 6.0 - 7.8 gm/dL F C Remisol Sodium [Moles/Vol] 134 mmol/L Low 135 - 145 mmol/L FT Remisol Urea nitrogen [Mass/Vol] 14 mg/dL Normal 5 - 21 mg/dL [facility] Remisol Urea nitrogen/Creatinine [Mass ratio] 16 mg/mg Normal 10 - 20 [facility] Remisol COAGULATIONOrdered By: Brandie Sams on 12-02-2022 aPTT Coag (PPP) [Time] 32.2 s Normal 25.1 - 36.5 second(s) [facility] Auto Coag INR Coag (PPP) [Relative time] 1.1 {INR} Invalid Interpretation Code [facility] Auto Coag PT Coag (PPP) [Time] 11.8 s Normal 9.4 - 12.5 second(s) [facility] Auto Coag Consent for Treatmenton 11-11 Consent for Treatment [id number]#1.00C D:127 Normal [facility] Discharge Instructionson Discharge Instructions [id number]#1.00CD :127 Normal [facility] ED Clinical Summaryon 2022 ED Clinical Summary Normal [facility] ED Note-Physicianon 12-03-19 ED Note-Physician Normal [facility] Comment on above: Result Comment: Elec tronically Signed By: Severo Mcnair PA-C\.br\Date and Time Signed: 12/02/22 16:04 EDT\.br\Electronically Co-Signed By: Arturo Alvarez M.D.\.br\Date and Time Co-Signed: 12/02/22 18:18 EDT ED Patient Education Noteon 12-02-2022 ED Patient Education Note Normal [facility] ED Patient Summaryon 023 ED Patient Summary Normal [facility] HEMATOLOGYOrdered By: SYSTEM SYSTEM on [...] 8.2 fL Normal 6.4 - 10.8 fL [facility] HemeAutoSS Platelets (Bld) [#/Vol] 135.0 E9/L Low 150.0 - 500.0 E9/L [facility] HemeAutoSS RBC (Bld) [#/Vol] 4.7 E12/L Normal 4.3 - 5.9 E12/L [facility] HemeAutoSS WBC corrected for nucl RBC Auto (Bld) [#/Vol] 5.2 E9/L Normal 4.0 - 11.0 E9/L [facility] HemeAutoSS Hep Func Panelon 12-02-2022 Bilirubin.indirect [Mass or moles/Vol] UTC Abnormal 0.1-0.9 [facility] Comment on above: Result Comment: Resu lt verified by Discern Rule. Performed result UT (Unable to Calculate) was sent as an Alpha code due the inability to calculate a valid numeric value. Performed By: #### 2 587857, 38160451, 3937368, 6271723, 23001100, 8685962 ####[facility] [address] [place] [address] Albumin [Mass/Vol] 3.5 g/dL Normal 3.3-5.0 [facility] Comment on above: Performed By: #### 2 763334, 94788076, 1734423, 3684970, 61158506, 8283305 ####[facility] [address] [place] [address] Albumin/Globulin (S) [Mass conc ratio] 1.0 Low 1.1-2.2 [facility] Comment on above: Performed By: #### 2 030138, 97928905, 3583806, 0373151, 09133247, 9121796 ####[facility] [address] [place] [address] ALP [Catalytic activity/Vol] 55 Int._Unit/L Normal 21-98 [facility] Comment on above: Performed By: #### 2 599136, 61077897, 3291846, 1161509, 88807242, 2336970 ####[facility] [address] [place] [address] ALT No additional P-5'-P [Catalytic activity/Vol] 37 Int._Unit/L Normal 6-46 [facility] Comment on above: Performed By: #### 2 330440, 38986185, 2300407, 7200056, 80626982, 1028207 ####[facility] [address] [place] [address] AST [Catalytic activity/Vol] 44 Int._Unit/L High 5-43 [facility] Comment on above: Performed By: #### 2 797551, 96789359, 8435342, 6670842, 57455458, 5201540 ####[facility] [address] [place] [address] Bilirubin [Mass/Vol] 0.4 mg/dL Normal 0.0-1.1 [facility] Comment on above: Performed By: #### 2 771936, 14395301, 3790259, 6674900, 32110108, 2366533 ####[facility] [address] [place] [address] Bilirubin.direct [Mass/Vol] mg/dL Normal 0.1-0.4 [facility] Comment on above: Performed By: #### 2 179686, 95768386, 6539340, 7854024, 74548887, 0172788 ####[address] [place] [address] Globulin (S) [Mass/Vol] 3.5 g/dL Normal 1.4-4.0 [facility] Comment on above: Performed By: #### 2 900596, [id number], 1840902, 2119582, 41222105, 9343251 ####[facility] [address] [place] [address] Protein [Mass/Vol] 7.0 g/dL Normal 6.0-7.8 [facility] Comment on above: Performed By: #### 2 338067, 41713466, 5103185, 8662564, 99244634, 5354533 ####[facility] [address] [place] [address] MICRO OTHER TESTSOrdered By: Kelly Laucurly on 12-02-2022 Occult Bld Stl Positive *ABN* (12/02/22 3:01 PM) Invalid Interpretation Code Negative [facility] Man Sero PT & PTTon 12-02-2022 aPTT Coag (PPP) [Time] 32.2 second(s) Normal 25.1-36.5 [facility] Comment on above: Result Comment: [...] the same coagulation reagent and instrumentation as [facility]. Currently there are no coagulation studies available worldwide for children to 14 days, and no normal ranges. Heparin therapeutic range (represented by Anti-Factor Xa activity of 0.2 - 0.4 U/mL) corresponds to PTT of 56.6 - 109.0 sec. Performed By: #### 2 954329, 75658980, 7610052, 3719321, 83436145, 1693996 ####[facility] [address] [place] [address] INR Coag (PPP) [Relative time] 1.1 {INR} Invalid Interpretation Code [facility] Comment on above: Result Comment: INR results are specifically intended to assess patients stabilized on long-term Anticoagulation therapy suggested INR?s ?Less Intensive Anticoagulation? 2.0 ? 3.0Conventional Range 3.0 ? 4.5 Performed By: #### 2 985188, 26494767, 0224732, 1308917, 84473925, 6355478 ####[facility] [address] [place] [address] PT Coag (PPP) [Time] 11.8 second(s) Normal 9.4-12.5 [facility] Comment on above: Result Comment: [...] the same coagulation reagent and instrumentation as [facility]. Currently there are no coagulation studies available worldwide for children to 14 days, and no normal ranges. Performed By: #### 2 031599, 78329877, 6031408, 6276752, 43766987, 2006425 ####[facility] [address] [place] [address] Stl Oclt Bldon 12-02-2022 Occult Bld Stl Positive Abnormal Negative [facility] Comment on above: Performed By: #### 2 [id number] ####[facility] [address] [place] [address] eGFRon 12-02-2022 GFR/1.73 sq M.predicted among blacks MDRD (S/P/Bld) [Vol rate/Area] mL/min/{1.73_m2} Normal >=59 [facility] Comment on above: Order Comment: Order added by Discern Expert. Result Comment: eGFR is race adjusted. AA=. Performed By: #### 2 132795, 81791860, 8208293, 7131627, 51310872, 5030472 ####[facility] [address] [place] [address] GFR/1.73 sq M.predicted among non-blacks MDRD (S/P/Bld) [Vol rate/Area] mL/min/{1.73_m2} Normal >=59 [facility] Comment on above: Order Comment: Order added by Discern Expert. Result Comment: Manager Summer cristo kidney disease could be indicated at eGFR's of less than 60 mL/min/1.73m2. Kidney failure is indicated at less than 15 mL/min/1.73m2. Performed By: #### 2 158751, 54445524, 9125714, 5672274, 69397943, 2711814 ####[facility] [address] [place] [address] Coding Summary.on 11-30-2022 Coding Summary. Normal [facility] Consent for Treatmenton 11-11 Consent for Treatment [id number]#1.00CD :127 [facility] Consultation Noteon 11-30-19 Consultation Note Normal [facility] Comment on above: Result Comment: Elec tronically Signed By: Georgi ESPINAL, Pawan\.br\Date and Time Signed: 11/29/22 10:31 EDT Office/Clinic Note-Physician on 11-29-2022 Office/Clinic Note-Physician [id number]#1.00 CD:127 Normal [facility] Patient Correspondenceon Patient Correspondence [id number]#1.00 CD:127 Normal [facility] Patient History Officeon Patient History Office [id number]#1.00 CD:127 Normal [facility] Transfer Inon 11-26-2022 Transfer In [id number]#1.00C D:127 Normal [facility] Coding Summary.on 11-24-2022 Coding Summary. Normal [facility] US Aorta Completeon 11-21-19 US Aorta Complete Normal [facility] Consent for Treatmenton 11-10 Consent for Treatment [id number]#1.00C D:127 [facility] Consultation Noteon 11-18-19 Consultation Note [id number]#1.00C D:127 [facility] Auth for Release of Medical Recordson 11-16-2022 Auth for Release of Medical Records [id number]#1.00C D:127 [facility] CNOVon 11-14-2022 CNOV Office Visit (KRYSTIN ) JAS GONZALEZ ([id number]) 1950 M [facility] Date Time Provider Department 11/14/22 1:30 PM JUMA MONK During your visit today, we recorded the following information about you: Pulse Blood pressure Weight Height 73/minute 121/63 151.5 kg 1.854 m Juma Monk MD 11/16/2022 9:45 AM Signed [facility] Date of Service: 11/14/2022 Patient: Jas Gonzalez Medical Record: [id number] Primary Care Physician: No primary care provider [...] US mail. History of Present Illness Jas De La Torrenzel is a 72 year old male with [...] 144 mmol/L (more content not included)... Normal [facility] Family Medicine Office/Clini c Noteon 11-08-2022 Family Medicine Office/Clinic Note Normal [facility] Comment on above: Result Comment: Elec tronically Signed By: Mt GOODEN DO, FAAFP\.nancy\Date and Time Signed: 11/08/22 10:50 EDT Patient Educationon 11-09-19 Patient Education Normal [facility] Coding Summary.on 10-29-2022 Coding Summary. Normal [facility] CHEMISTRYOrdered By: Lab ROP User on 10-24-2022 Glucose [Mass/Vol] 138 mg/dL High 55 - 99 mg/dL [facility] C POC Subsection POC Device SN [id number] Invalid Interpretation Code [facility] POC Subsection POC User ID [id number] Invalid Interpretation Code [facility] POC Subsection POC Username LESLIE AUGUSTINE Invalid Interpretation Code [facility] POC Subsection Capillary Glucose POCon 10-10 Glucose [Mass/Vol] 138 mg/dL High 55-99 [facility] Comment on above: Performed By: #### 2 [id number] ####[facility] [address] [place] [address] Consent for Procedure/Surger yon 10-24-2022 Consent for Procedure/Surgery [id number]#1.00 CD:127 Normal [facility] Consent for Treatmenton 10-10 Consent for Treatment [id number]#1.00C D:127 Normal [facility] Consultation Noteon 10-25-19 Consultation Note [id number]#1.00C D:127 Normal [facility] Consultation Note [id number]#1.00C D:127 Normal [facility] Discharge Instructionson Discharge Instructions [id number]#1.00 CD:127 Normal [facility] IntraOperative Documentson 0 10-24-2022 IntraOperative Documents [id number]#1.00 CD:127 Normal [facility] IntraOperative Documents [id number]#1.00 CD:127 [facility] Main OR Intraoperative Recor don 10-24-2022 Main OR Intraoperative Record [facility] Main OR Preoperative Recordo n 10-24-2022 Main OR Preoperative Record [facility] Operative Reporton Operative Report [facility] Comment on above: Result Comment: Elec tronically Signed By: Georgi ESPINAL, Pawan\.br\Date and Time Signed: 10/24/22 19:25 EDT Patient Correspondenceon Patient Correspondence [id number]#1.00CD :127 Normal [facility] Coding Summary.on 10-01-2022 Coding Summary. Normal [facility] Consultation Noteon 09-29-19 Consultation Note Normal [facility] Comment on above: Result Comment: Elec tronically Signed By: Georgi ESPINAL, Pawan\.br\Date and Time Signed: 09/29/22 20:14 EST Consent for Treatmenton 09-12 Consent for Treatment [id number]#1.00C D:127 Normal [facility] Office/Clinic Note-Physician on 09-27-2022 Office/Clinic Note-Physician [id number]#1.00C D:127 Normal [facility] Patient Correspondenceon Patient Correspondence [id number]#1.00C D:127 Normal [facility] Patient History Officeon Patient History Office [id number]#1.00C D:127 Normal [facility] Physician Orderon 09-27-2022 Physician Order [id number]#1.00C D:127 Normal [facility] CHEMISTRYOrdered By: Elma Person on 09-10-2022 Albumin [...] m2 FT Chem S Globulin (S) [Mass/Vol] 3.8 g/dL Normal 1.4 - 4.0 gm/dL FT Remisol Glucose [Mass/Vol] 119 mg/dL Normal 55 - 199 mg/dL [facility] Potassium [Moles/Vol] 4.0 mmol/L Normal 3.5 - 5.3 mmol/L [facility] Prostate specific Ag [Mass/Vol] 0.9 ng/mL Normal 0.1 - 3.5 ng/mL [facility] Protein [Mass/Vol] 7.9 g/dL High 6.0 - 7.8 gm/dL F C Remisol Sodium [Moles/Vol] 138 mmol/L Normal 135 - 145 mmol/L [facility] Triglyceride [Mass/Vol] 120 mg/dL Normal <=149mg/dL [facility] Urea nitrogen [Mass/Vol] 17 mg/dL Normal 5 - 21 mg/dL [facility] Urea nitrogen/Creatinine [Mass ratio] 19 mg/mg Normal 10 - 20 [facility] CHEMISTRYOrdered By: Alia Heart on 09-10-2022 HbA1c (Bld) [Mass fraction] 6.3 % High <=5.9% FT ChemAutoSS HEMATOLOGYOrdered By: SYSTEM SYSTEM on 09-10-2022 Basophils/100 [...] 6.4 E9/L Normal 4.0 - 11.0 E9/L [facility] HemeAutoSS ANES POSTPROC EVALon 022 ANES POSTPROC EVAL HNO ID: [id number] Author: Vincenzo Laughlin MD Service: ? Author [...] June 08, 2022 TIME: 5:56 PM CSN: [id number] Normal [facility] ANES PRE-OPon 06-08-2022 ANES PRE-OP HNO ID: [id number] Author: Vincenzo Laughlin MD Service: ? Author Type: Anesthesiologist Type: Anesthesia Preprocedure Evaluation Filed: 06/08/2022 12:32 PM Note Text: ANESTHESIOLOGY DAY OF SURGERY NOTE : 1950 Procedure Information Date/Time: 06/08/22 1300 Scheduled providers: Katrina Urena MD; Vincenzo Laughlin MD; Sky Howe APRN.PHYSICIAN SCIENTIST Procedure: EGD DIAGNOSTIC Location: Gastroenterology Estimated body [...] June 08, 2022 TIME: 12:31 PM CSN: [id number] Normal [facility] EGD DIAGNOSTICon 06-08-2022 [facility] GLUCOSE, BLOOD (POC)on 06-08 Glucose [Mass/Vol] 129 mg/dL Abnormal 74 - 99 mg/dL [facility] Glucose [Mass/Vol] 95 mg/dL 74 - 99 mg/dL [facility] NURSING PROGon 06-08-2022 NURSING PROG HNO ID: [id number] Author: Leonor Osorio RN Service: Nursing Author [...] Electronically Signed By: Leonor Osorio RN Normal [facility]: [id number] Author: Marguerite Potts RN Service: Nursing Author [...] Marguerite Potts RN In Department: GASTROENTEROLOGY Normal [facility] SURGICAL PATHOLOGYon 022 ADDENDUM 1: Normal [facility] Comment on above: Order Comment: Speci men Type: TISSUE SPECIMENOrdering Facility: [facility] Address: [address] [place] [id number] Result Comment: H. p ylori immunostain performed on the stomach biopsy (part A) to evaluate the chronic gastritis is negative for organisms. Laboratory Developed Test (LDT) Disclaimer: Performance characteristics of immunohistochemical, immunofluorescent and chromogenic in-situ hybridization tests have been determined by the performing laboratory within [facility]???s [facility] Laboratory Medicine [place] ([facility], [facility] or [facility]) in a manner consistent with CLIA requirements. [...] at 3:20 PM Performed By: #### S ####[facility] NetworkALBERTST LABORATORYCLIA [id number] [address] CASE REPORT Normal [facility] Comment on above: Order Comment: Speci men Type: TISSUE SPECIMENOrdering Facility: [facility] Address: [address] [place] [address] Result Comment: Surg [facility] Pathology Report Case: [id number] Authorizing Provider: Katrina Urena MD Collected: 06/08/2022 12:47 PM Ordering Location: Gastroenterology Received: 06/08/2022 03:49 PM Pathologist: Sky Alvarenga MD Specimens: A) - STOMACH BIOPSY, gastric antrum B) - STOMACH BIOPSY, gastric antrum nodule C) - ESOPHAGUS BIOPSY, @41 D) - ESOPHAGUS BIOPSY, @39 E) - ESOPHAGUS BIOPSY, @38 Performed By: #### S ####Xinyi NetworkALBERT LABORATORYIA [id number] [address] DIAGNOSIS COMMENT H. pylori immunostai n is pending. Normal [facility] Comment on above: Order Comment: Speci men Type: TISSUE SPECIMENOrdering Facility: [facility] Address: [address] [place] [address] Performed By: #### S ####[employer] LABORATORYCLIA [id number] [address] FINAL DIAGNOSIS Normal [facility] Comment on above: Order Comment: Speci men Type: TISSUE SPECIMENOrdering Facility: [facility] Address: [address] [place] [address] Result Comment: A. S tomach, biopsy: - [...] negative for dysplasia. Performed By: #### S ####[facility] LABORATORYCLIA [id number] [address] OF [facility] FINAL PERFORMING LAB Normal [facility] Comment on above: Order Comment: Speci men Type: TISSUE SPECIMENOrdering Facility: [facility] Address: [address] [place] [address] Result Comment: Diag nostic interpretation performed at [facility], [address] [place] [address] CLIA# [id number] Laboratory Apparatus Glass Grinder: Nellie Galvin M.D. Performed By: #### S ####[facility] LABORATORYCLIA [id number] [address] GROSS DESCRIPTION Normal [facility] Comment on above: Order Comment: Speci men Type: TISSUE SPECIMENOrdering Facility: [facility] Address: [address] [place] [address] Result Comment: A. S TOMACH BIOPSY Received [...] in one cassette. Gross examination performed at [facility], [address] [place], [place] [address] 06/08/2022 7:53 PM Performed By: #### S ####[facility] LABORATORYIA [id number] [place] [id number] [facility] CNPShireen 06-01-2022 CNPStu Telephone (GASTANNIE) JAS GONZALEZ ([id number]) 1950 M DEF Date Time Provider Department [...] have family/friend present for procedure transport home:Patient/patient client representative was told that if they do not have a responsible adult accompany them to their procedure; and remain in the endoscopy area until they are discharged; that their procedure cannot be done with sedation or anesthesia and may be cancelled. Any barriers to Patient learning: Patient/Patient Novelties Sales Representative responded appropriately on phone. Type of instruction given: Verbal by telephone contact. Dee Marin RN Allergies As of Date: 06/01/2022 (Not on File) Date Reviewed: Never Reviewed Reason for Visit: Appointment Confirmation [0762] Problem List As Of Date: 06/01/2022 (None) Encounter Status:Closed by DEE MARIN on 06/01/22 [facility] Anibal 04-26-2022 CNPN Telephone (GASTPR) JAS GONZALEZ ([id number]) 1950 M [facility] Date Time Provider Department 04/26/22 MARGUERITE POTTS [facility] During your visit today, we recorded the following information about you: Marguerite Potts RN 04/26/2022 3:44 PM Signed Attempted to reach the patient at the contact number that they provided [phone] (home) . 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 client representative they must have a responsible adult [...] Number to call with questions or concerns [phone] Number to call to cancel their procedure [phone] Marguerite Potts RN Allergies As of Date: 04/26/2022 (Not on File) Date Reviewed: Never Reviewed Reason for Visit: Appointment Confirmation [1548] Problem List As Of Date: 04/26/2022 (None) Encounter Status:Closed by MARGUERITE POTTS on 04/26/22 Normal [facility] CBC panel Auto (Bld)on 04-09 Erythrocyte distribution width (RBC) [Ratio] 13.3 % 11.5 - 15.0 % [facility] Hematocrit (Bld) [Volume fraction] 46.8 % 39.0 - 51.0 % [facility] Hemoglobin (Bld) [Mass/Vol] 15.1 g/dL 13.0 - 17.0 g/dL [facility] MCH (RBC) [Entitic mass] 30.7 pg 26.0 - 34.0 pg [facility] MCHC (RBC) [Mass/Vol] 32.3 g/dL 30.5 - 36.0 g/dL [facility] MCV (RBC) [Entitic vol] 95.1 fL 80.0 - 100.0 fL [facility] Nucleated RBC (Bld) [#/Vol] <0.01 k/uL [facility] Platelet mean volume (Bld) [Entitic vol] 10.8 fL 9.0 - 12.7 fL [facility] Platelets (Bld) [#/Vol] 165 10*3/uL 150 - 400 k/uL [facility] RBC (Bld) [#/Vol] 4.92 10*6/uL 4.20 - 6.00 m/uL [facility] WBC (Bld) [#/Vol] 8.48 10*3/uL 3.70 - 11.00 k/u L [facility] Erythrocyte distribution width (RBC) [Ratio] 13.3 % Normal 11.5-15.0 [facility] Comment on above: Order Comment: Speci men Type: BLOOD SPECIMENOrdering Facility: [facility] Address: [address] [place], [place] [address] Performed By: #### 5 8410-2 ####[facility] LABCLIA [id number] [address] OF [facility] Hematocrit (Bld) [Volume fraction] 46.8 % Normal 39.0-51.0 [facility] Comment on above: Order Comment: Speci men Type: BLOOD SPECIMENOrdering Facility: [facility] Address: [address] [place] [address] Performed By: #### 5 8410-2 ####[facility] LABIA [id number] [place] [address] [place] Hemoglobin (Bld) [Mass/Vol] 15.1 g/dL Normal 13.0-17.0 [facility] Comment on above: Order Comment: Speci men Type: BLOOD SPECIMENOrdering Facility: [facility] Address: [address] [place], [place] [address] Performed By: #### 5 8410-2 ####[facility] LABIA [id number] [place] [address] [place] MCH (RBC) [Entitic mass] 30.7 pg Normal 26.0-34.0 [facility] Comment on above: Order Comment: Speci men Type: BLOOD SPECIMENOrdering Facility: [facility] Address: [address] [place], [place] [address] Performed By: #### 5 8410-2 ####[facility] LABIA [id number] [place] [address] [place] MCHC (RBC) [Mass/Vol] 32.3 g/dL Normal 30.5-36.0 [facility] Comment on above: Order Comment: Speci men Type: BLOOD SPECIMENOrdering Facility: [facility] Address: [address] [place] [address] Performed By: #### 5 8410-2 ####[facility] LABIA [id number] [place] [address] [place] MCV (RBC) [Entitic vol] 95.1 fL Normal 80.0-100.0 [facility] Comment on above: Order Comment: Speci men Type: BLOOD SPECIMENOrdering Facility: [facility] Address: [address] [place], [place] [address] Performed By: #### 5 8410-2 ####[facility] LABIA [id number] [place] [address] [place] Nucleated RBC (Bld) [#/Vol] 10*3/uL Normal <0.01 [facility] Comment on above: Order Comment: Speci men Type: BLOOD SPECIMENOrdering Facility: [facility] Address: [address] [place], [place] [address] Performed By: #### 5 8410-2 ####[facility] LABCLIA [id number] [place] [address] [place] Platelet mean volume (Bld) [Entitic vol] 10.8 fL Normal 9.0-12.7 [facility] Comment on above: Order Comment: Speci men Type: BLOOD SPECIMENOrdering Facility: [facility] Address: [address] [place] [address] Performed By: #### 5 8410-2 ####[facility] LABCLIA [id number] [place] [address] [place] Platelets (Bld) [#/Vol] 165 10*3/uL Normal 150-400 [facility] Comment on above: Order Comment: Speci men Type: BLOOD SPECIMENOrdering Facility: [facility] Address: [address] [place], [place] [address] Performed By: #### 5 8410-2 ####[facility] LABCLIA [id number] [place] [address] [place] RBC (Bld) [#/Vol] 4.92 10*6/uL Normal 4.20-6.00 [facility] Comment on above: Order Comment: Speci men Type: BLOOD SPECIMENOrdering Facility: [facility] Address: [address] [place], [place] [address] Performed By: #### 5 8410-2 ####[facility] LABCLIA [id number] [place] [address] [place] WBC (Bld) [#/Vol] 8.48 10*3/uL Normal 3.70-11.00 [facility] Comment on above: Order Comment: Speci men Type: BLOOD SPECIMENOrdering Facility: [facility] Address: [address] [id number] Performed By: #### 5 8410-2 ####[facility] LABCLIA [id number] [address] [id number] [facility] CNOVon 04-09-2022 CNOV Office Visit (GASTQ3 ) JAS GONZALEZ ([id number]) 1950 M DEF Date Time Provider Department [...] concerned about possible dysplasia sent specimen to [facility], still pending; patient denies pain or GERD symptoms. Past Medical History: Ongoing: Mccarty's esophagus with dysplasia BMI 40-44-9 BPH associated with nocturia Diabetes Mellitus Dietary Counseling GERD with hiatal hernia penitentiary current use of oral hypoglycemic drug Lumbar [...] Findings: The affected area was not inflamed. [place] classification C 40, M 35. Biopsy collected. [...] Past Histories independently gathered by the clinical account support associate and the remaining scribed note accurately describes my personal service to the patient. Katrina Urena M.D. Office:[phone] Appointments [phone] (more content not included)... Normal [facility] Comprehensive metabolic 2000 panelon 04-09-2022 Albumin [Mass/Vol] 4.4 g/dL Normal 3.9-4.9 [facility] Comment on above: Order Comment: Speci men Type: BLOOD SPECIMENOrdering Facility: [facility] Address: [address] [address] Performed By: #### 2 4323-8 ####[facility] LABCLIA [id number] [place] [address] [place] ALP [Catalytic activity/Vol] 70 U/L Normal 38-113 [facility] Comment on above: Order Comment: Speci men Type: BLOOD SPECIMENOrdering Facility: [facility] Address: [address] [address] Performed By: #### 2 4323-8 ####[facility] LABCLIA [id number] [place] [address] [place] ALT [Catalytic activity/Vol] 33 U/L Normal 10-54 [facility] Comment on above: Order Comment: Speci men Type: BLOOD SPECIMENOrdering Facility: [facility] Address: [address] [place] [address] Performed By: #### 2 4323-8 ####[facility] LABCLIA [id number] [place] [address] [place] Anion gap [Moles/Vol] 12 mmol/L Normal 9-18 [facility] Comment on above: Order Comment: Speci men Type: BLOOD SPECIMENOrdering Facility: [facility] Address: [address] [place] [address] Performed By: #### 2 4323-8 ####[facility] LABCLIA [id number] [address] [place] AST [Catalytic activity/Vol] 32 U/L Normal 14-40 [facility] Comment on above: Order Comment: Speci men Type: BLOOD SPECIMENOrdering Facility: [facility] Address: [address] [place], [place] [address] Performed By: #### 2 4323-8 ####[facility] LABCLIA [id number] [place] [address] [place] Bilirubin [Mass/Vol] 0.4 mg/dL Normal 0.2-1.3 [facility] Comment on above: Order Comment: Speci men Type: BLOOD SPECIMENOrdering Facility: [facility] Address: [address] [place], [place] [address] Performed By: #### 2 4323-8 ####[facility] LABCLIA [id number] [place] [address] [place] Calcium [Mass/Vol] 9.9 mg/dL Normal 8.5-10.2 [facility] Comment on above: Order Comment: Speci men Type: BLOOD SPECIMENOrdering Facility: [facility] Address: [address] [place], [place] [address] Performed By: #### 2 4323-8 ####[facility] LABCLIA [id number] [place] [address] [place] Chloride [Moles/Vol] 100 mmol/L Normal 97-105 [facility] Comment on above: Order Comment: Speci men Type: BLOOD SPECIMENOrdering Facility: [facility] Address: [address] [place], [place] [address] Performed By: #### 2 4323-8 ####[facility] LABCLIA [id number] [place] [address] [place] CO2 [Moles/Vol] 27 mmol/L Normal 22-30 [facility] Comment on above: Order Comment: Speci men Type: BLOOD SPECIMENOrdering Facility: [facility] Address: [address] [place], [place] [address] Performed By: #### 2 4323-8 ####[facility] LABCLIA [id number] [place] [address] [place] Creatinine [Mass/Vol] 0.92 mg/dL Normal 0.73-1.22 [facility] Comment on above: Order Comment: Speci men Type: BLOOD SPECIMENOrdering Facility: [facility] Address: [address] [place], [place] [address] Performed By: #### 2 4323-8 ####[facility] LABCLIA [id number] [place] [address] [place] ESTIMATED GLOMERULAR FILTRATION RATE 87 mL/min/1.73m??? Normal >=60 [facility] Comment on above: Order Comment: Speci men Type: BLOOD SPECIMENOrdering Facility: [facility] Address: [address] [place], [place] [address] Result Comment: Aminta mated Glomerular Filtration Rate [...] actual GFR. Performed By: #### 2 4323-8 ####[facility] LABCLIA [id number] [place] [address] [place] Glucose [Mass/Vol] 99 mg/dL Normal 74-99 [facility] Comment on above: Order Comment: Jay mendoza Type: BLOOD SPECIMENOrdering Facility: [facility] Address: [address] [place] [address] Result Comment: The [place] [employer] (ADA) provides guidance for cutoff [...] Standards of Medical Care in Diabetes 2016, [place] [employer]. Diabetes Care. 2016.39(Suppl 1). Performed By: #### 2 4323-8 ####[facility] LABCLIA [id number] [place] [address] [place] Potassium [Moles/Vol] 4.2 mmol/L Normal 3.7-5.1 [facility] Comment on above: Order Comment: Jay mendoza Type: BLOOD SPECIMENOrdering Facility: [facility] Address: [address] [id number] Performed By: #### 2 4323-8 ####[facility] LABCLIA [id number] [place] [address] [place] Protein [Mass/Vol] 7.7 g/dL Normal 6.3-8.0 [facility] Comment on above: Order Comment: Speci men Type: BLOOD SPECIMENOrdering Facility: [facility] Address: [address] [place] [address] Performed By: #### 2 4323-8 ####[facility] LABCLIA [id number] [place] [address] [place] Sodium [Moles/Vol] 139 mmol/L Normal 136-144 [facility] Comment on above: Order Comment: Speci men Type: BLOOD SPECIMENOrdering Facility: [facility] Address: [address] [place] [address] Performed By: #### 2 4323-8 ####[facility] LABCLIA [id number] [place] [address] [place] Urea nitrogen [Mass/Vol] 16 mg/dL Normal 9-24 [facility] Comment on above: Order Comment: Speci men Type: BLOOD SPECIMENOrdering Facility: [facility] Address: [address] [place] [address] Performed By: #### 2 4323-8 ####[facility] LABCLIA [id number] [address] [place] CHEMISTRYOrdered By: Alia [facility] on 09-07-2021 HbA1c (Bld) [Mass fraction] 6.3 % High <=5.9% [facility] Chem[employer]SS Vital Signs Date Time Vital Sign Value Performing Clinician Facility 09-24-2023 10:19-0500 Blood Pressure Location [facility] 09-24-2023 10:19-0500 Diastolic blood pressure 62 mm[Hg] [facility] 09-24-2023 10:19-0500 Heart rate 82 /min [facility] 09-24-2023 10:19-0500 Respiratory rate 15 /min [facility] 09-24-2023 10:19-0500 SaO2% (BldA) [Mass fraction] 95 % [facility] 09-24-2023 10:19-0500 Systolic blood pressure 138 mm[Hg] [facility] 09-20-2023 15:45-0500 Diastolic blood pressure 82 mm[Hg] Kevin Wilsone [facility] 09-20-2023 15:45-0500 Heart rate 78 /min Kevin Wilsone [facility] 09-20-2023 15:45-0500 Mean blood pressure 101 mm[Hg] Kevin Wilsone [facility] 09-20-2023 15:45-0500 Respiratory rate 13 /min Kevin Wilsone [facility] 09-20-2023 15:45-0500 SaO2% (BldA) [Mass fraction] 97 % Kevin Wilsone [facility] 09-20-2023 15:45-0500 Systolic blood pressure 138 mm[Hg] Kevin Wilsone [facility] 09-20-2023 14:53-0500 Body temperature 97.7 [degF] Kevin Wilsone [facility] 09-20-2023 14:53-0500 Diastolic blood pressure 50 mm[Hg] Kevin Wilsone [facility] 09-20-2023 14:53-0500 Heart rate 76 /min Kevin Wilsone [facility] 09-20-2023 14:53-0500 Respiratory rate 18 /min Kevin Wilsone [facility] 09-20-2023 14:53-0500 SaO2% (BldA) [Mass fraction] 97 % Kevin Brizuela [facility] 09-20-2023 14:53-0500 Systolic blood pressure 100 mm[Hg] Kevin Brizuela [facility] 09-20-2023 13:54-0500 Body temperature 97.7 [degF] Kevin Brizuela [facility] 09-20-2023 13:54-0500 Diastolic blood pressure 79 mm[Hg] Kevin Brizuela [facility] 09-20-2023 13:54-0500 Heart rate 91 /min Kevin Brizuela [facility] 09-20-2023 13:54-0500 SaO2% (BldA) [Mass fraction] 99 % Kevin Brizuela [facility] 09-20-2023 13:54-0500 Systolic blood pressure 119 mm[Hg] Kevin Brizuela [facility] 08-26-2023 09:39-0500 Blood Pressure Location [facility] 08-26-2023 09:39-0500 Diastolic blood pressure 70 mm[Hg] [facility] 08-26-2023 09:39-0500 Heart rate 83 /min [facility] 08-26-2023 09:39-0500 SaO2% (BldA) [Mass fraction] 95 % [facility] 08-26-2023 09:39-0500 Systolic blood pressure 122 mm[Hg] [facility] 07-17-2023 09:46-0500 Blood Pressure Location Basem Murillo [facility] 07-17-2023 09:46-0500 Diastolic blood pressure 72 mm[Hg] Basem Murillo [facility] 07-17-2023 09:46-0500 Heart rate 81 /[facility] 07-17-2023 09:46-0500 SaO2% (BldA) [Mass fraction] 95 % [facility] 07-17-2023 09:46-0500 Systolic blood pressure 102 mm[Hg] [facility] 07-09-2023 10:05-0500 Heart rate 83 /min Mhd Al-Marrawi [facility] 07-09-2023 10:05-0500 SaO2% (BldA) [Mass fraction] 95 % Mhd Al-Marrawi [facility] 07-09-2023 10:05-0500 Body temperature 97.52 [degF] Mhd Al-Marrawi [facility] 07-09-2023 10:04-0500 Diastolic blood pressure 69 mm[Hg] Mhd Al-Marrawi [facility] 07-09-2023 10:04-0500 Mean blood pressure 84 mm[Hg] Mhd Al-Marrawi [facility] 07-09-2023 10:04-0500 Systolic blood pressure 113 mm[Hg] Mhd Al-Marrawi [facility] 07-09-2023 10:04-0500 Respiratory rate 20 /min Mhd Al-Marrawi [facility] 06-26-2023 09:42-0500 Blood Pressure Location Matyt [facility] 06-26-2023 09:42-0500 Diastolic blood pressure 69 mm[Hg] Basejessica [facility] 06-26-2023 09:42-0500 Heart rate 84 /min [facility] 06-26-2023 09:42-0500 SaO2% (BldA) [Mass fraction] 96 % [facility] 06-26-2023 09:42-0500 Systolic blood pressure 106 mm[Hg] [facility] 06-03-2023 13:35-0400 Blood Pressure Location [facility] 06-03-2023 13:35-0400 Body temperature 98.42 [degF] [facility] 06-03-2023 13:35-0400 Diastolic blood pressure 62 mm[Hg] [facility] 06-03-2023 13:35-0400 Heart rate 78 /min [facility] 06-03-2023 13:35-0400 Respiratory rate 22 /min [facility] 06-03-2023 13:35-0400 SaO2% (BldA) [Mass fraction] 94 % [facility] 06-03-2023 13:35-0400 Systolic blood pressure 104 mm[Hg] [facility] 04-09-2023 10:00-0400 [facility] 04-09-2023 10:00-0400 Body temperature 98.42 [degF] [facility] 04-09-2023 10:00-0400 Diastolic blood pressure 68 mm[Hg] [facility] 04-09-2023 10:00-0400 Heart rate 90 /min [facility] 04-09-2023 10:00-0400 Mean blood pressure 80 mm[Hg] [place] [facility] 04-09-2023 10:00-0400 Respiratory rate 22 /min [facility] 04-09-2023 10:00-0400 SaO2% (BldA) [Mass fraction] 93 % [facility] 04-09-2023 10:00-0400 Systolic blood pressure 104 mm[Hg] [facility] 03-13-2023 14:00-0400 Hourly Rounding Jordan Dianne [facility] 03-13-2023 14:00-0400 Promise to Return Jordan Dianne [facility] 03-13-2023 04:00-0400 Diastolic blood pressure 65 mm[Hg] Jordan Dianne [facility] 03-13-2023 04:00-0400 Heart rate 85 /min Jordan Dianne [facility] 03-13-2023 04:00-0400 Hourly Rounding Jordan Dianne [facility] 03-13-2023 04:00-0400 Mean blood pressure 81 mm[Hg] Jordan Dianne [facility] 03-13-2023 04:00-0400 Promise to Return Jordan Dianne [facility] 03-13-2023 04:00-0400 SaO2% (BldA) [Mass fraction] 94 % Jordan Dianne [facility] 03-13-2023 04:00-0400 Systolic blood pressure 112 mm[Hg] Jordan Dianne [facility] 03-13-2023 03:44-0400 Diastolic blood pressure 63 mm[Hg] Jordan Dianne [facility] 03-13-2023 03:44-0400 Heart rate 82 /min Jordan Dianne [facility] 03-13-2023 03:44-0400 Mean blood pressure 78 mm[Hg] Jordan Dianne [facility] 03-13-2023 03:44-0400 SaO2% (BldA) [Mass fraction] 96 % Jordan Dianne [facility] 03-13-2023 03:44-0400 Systolic blood pressure 108 mm[Hg] Jordan Dianne [facility] 03-13-2023 03:00-0400 Diastolic blood pressure 67 mm[Hg] Jordan Dianne [facility] 03-13-2023 03:00-0400 Heart rate 81 /min Jordan Dianne [facility] 03-13-2023 03:00-0400 Hourly Rounding Jordan Dianne [facility] 03-13-2023 03:00-0400 Mean blood pressure 84 mm[Hg] Jordan Dianne [facility] 03-13-2023 03:00-0400 Promise to Return Jordan Dianne [facility] 03-13-2023 03:00-0400 Systolic blood pressure 118 mm[Hg] Jordan Dianne [facility] 03-13-2023 02:22-0400 Body temperature 97.52 [degF] Jordan Dianne [facility] 03-13-2023 02:22-0400 Heart rate 83 /min Jordan Dianne [facility] 03-13-2023 02:22-0400 Respiratory rate 16 /min Jordan Dianne [facility] 03-11-2023 10:00-0400 Blood Pressure Location Mhd Al-Marrawi [facility] 03-11-2023 10:00-0400 Body temperature 97.7 [degF] Mhd Al-Marrawi [facility] 03-11-2023 10:00-0400 Diastolic blood pressure 65 mm[Hg] Mhd Al-Marrawi [facility] 03-11-2023 10:00-0400 Heart rate 93 /min Mhd Al-Marrawi [facility] 03-11-2023 10:00-0400 Mean blood pressure 77 mm[Hg] Mhd Al-Marrawi [facility] 03-11-2023 10:00-0400 Respiratory rate 22 /min Mhd Al-Marrawi [facility] 03-11-2023 10:00-0400 SaO2% (BldA) [Mass fraction] 94 % Mhd Al-Marrawi [facility] 03-11-2023 10:00-0400 Systolic blood pressure 100 mm[Hg] Mhd Al-Marrawi [facility] 02-19-2023 16:33-0400 Hourly Rounding [facility] 02-19-2023 16:33-0400 Promise to Return [facility] 02-19-2023 16:00-0400 Hourly Rounding [facility] 02-19-2023 16:00-0400 [facility] 02-19-2023 15:29-0400 Heart rate 86 /min [facility] 02-19-2023 15:29-0400 SaO2% (BldA) [Mass fraction] 94 % [facility] 02-19-2023 15:28-0400 Diastolic blood pressure 86 mm[Hg] [facility] 02-19-2023 15:28-0400 Mean blood pressure 103 mm[Hg] [facility] 02-19-2023 15:28-0400 Systolic blood pressure 136 mm[Hg] [facility] 02-19-2023 15:28-0400 Body temperature 97.7 [degF] [facility] 02-19-2023 15:00-0400 Blood Pressure Location [facility] 02-19-2023 15:00-0400 Hourly Rounding [facility] 02-19-2023 15:00-0400 [facility] 02-19-2023 15:00-0400 Respiratory rate 16 /min [facility] 02-19-2023 11:33-0400 Heart rate 83 /min [facility] 02-19-2023 11:33-0400 SaO2% (BldA) [Mass fraction] 93 % [facility] 02-19-2023 11:33-0400 Body temperature 98.42 [degF] [facility]-19-[facility] 11:33-0400 Diastolic blood pressure 92 mm[Hg] [facility] 02-19-2023 11:33-0400 Mean blood pressure 109 mm[Hg] [facility] 02-19-2023 11:33-0400 Systolic blood pressure 144 mm[Hg] [facility] 02-19-2023 08:18-0400 SaO2% (BldA) [Mass fraction] 93 % [facility] 02-19-2023 08:13-0400 Heart rate 56 /min [facility] 02-19-2023 08:13-0400 Diastolic blood pressure 80 mm[Hg] gloria [facility] 02-19-2023 08:13-0400 Mean blood pressure 94 mm[Hg] [facility]-19-[facility] 08:13-0400 Systolic blood pressure 121 mm[Hg] [facility] 02-19-2023 08:13-0400 Body temperature 97.52 [degF] [facility] 02-19-2023 08:00-0400 Respiratory rate 14 /min gloria [facility] 02-18-2023 20:48-0400 gluc 173 mg/dL [facility] 02-18-2023 16:38-0400 Heart rate 65 /min [facility] 02-18-2023 15:30-0400 Mean blood pressure 101 mm[Hg] karld [facility] 02-18-2023 15:30-0400 Respiratory rate 24 /min [facility] 02-18-2023 15:21-0400 Mean blood pressure 92 mm[Hg] [facility] 07-10-2023 15:17-0400 Mean blood pressure 92 mm[Hg] [facility] 02-18-2023 08:50-0400 Heart rate 94 /min [facility] 02-18-2023 07:56-0400 Blood Pressure Location [facility] 02-18-2023 07:56-0400 Body temperature 98.6 [degF] [facility] 02-18-2023 07:56-0400 Diastolic blood pressure 62 mm[Hg] [facility] 02-18-2023 07:56-0400 Heart rate 91 /min [facility] 02-18-2023 07:56-0400 Respiratory rate 20 /min [facility] 02-18-2023 07:56-0400 SaO2% (BldA) [Mass fraction] 90 % [facility] 02-18-2023 07:56-0400 Systolic blood pressure 120 mm[Hg] [facility] 12-10-2022 10:02-0400 Blood Pressure Location [facility] 12-10-2022 10:02-0400 Body temperature 98.6 [degF] [facility] 12-10-2022 10:02-0400 Diastolic blood pressure 72 mm[Hg] [facility] 12-10-2022 10:02-0400 Heart rate 89 /min [facility] 12-10-2022 10:02-0400 Respiratory rate 18 /min [facility] 12-10-2022 10:02-0400 SaO2% (BldA) [Mass fraction] 97 % [facility] 12-10-2022 10:02-0400 Systolic blood pressure 136 mm[Hg] [facility] 12-05-2022 12:56-0400 Body weight 154.22 kg Juma Monk MD Work Phone: [facility] 12-05-2022 12:56-0400 Diastolic blood pressure 74 mm[Hg] Juma Monk MD Work Phone: [facility] 12-05-2022 12:56-0400 Heart rate 83 /min Juma Monk MD Work Phone: [facility] 12-05-2022 12:56-0400 Respiratory rate 18 /min Juma Monk MD Work Phone: [facility] 12-05-2022 12:56-0400 SaO2% (BldA) [Mass fraction] 95 % Juma Monk MD Work Phone: [facility] 12-05-2022 12:56-0400 Systolic blood pressure 118 mm[Hg] Juma Monk MD Work Phone: [facility] 12-02-2022 15:22-0400 Diastolic blood pressure 84 mm[Hg] [facility] 12-02-2022 15:22-0400 Heart rate 78 /min [facility] 12-02-2022 15:22-0400 Mean blood pressure 105 mm[Hg] [facility] 12-02-2022 15:22-0400 Respiratory rate 18 /min [facility] 12-02-2022 15:22-0400 SaO2% (BldA) [Mass fraction] 96 % [facility] 12-02-2022 15:22-0400 Systolic blood pressure 148 mm[Hg] [facility] 12-02-2022 12:08-0400 Body temperature 98.78 [degF] [facility] 12-02-2022 12:08-0400 Diastolic blood pressure 90 mm[Hg] [facility] 12-02-2022 12:08-0400 Heart rate 73 /min [facility] 12-02-2022 12:08-0400 Respiratory rate 18 /min [facility] 12-02-2022 12:08-0400 SaO2% (BldA) [Mass fraction] 95 % [facility] 12-02-2022 12:08-0400 Systolic blood pressure 152 mm[Hg] [facility] 11-29-2022 09:53-0400 Diastolic blood pressure 66 mm[Hg] Pawan Zumbar [facility] 11-29-2022 09:53-0400 Heart rate 85 /min Pawan Zumbar [facility] 11-29-2022 09:53-0400 Mean blood pressure 84 mm[Hg] Pawan Zumbar [facility] 11-29-2022 09:53-0400 Systolic blood pressure 121 mm[Hg] Pawan Zumbar [facility] 11-14-2022 13:23-0400 Body height 185.4 cm Juma Monk MD Work Phone: [facility] 11-14-2022 13:23-0400 Body weight 151.5 kg Juma Monk MD Work Phone: [facility] 11-14-2022 13:23-0400 Diastolic blood pressure 63 mm[Hg] Juma Monk MD Work Phone: [facility] 11-14-2022 13:23-0400 Heart rate 73 /min Juma Monk MD Work Phone: [facility] 11-14-2022 13:23-0400 Systolic blood pressure 121 mm[Hg] Juma Monk MD Work Phone: [facility] 11-08-2022 10:04-0400 Blood Pressure Location [facility] 11-08-2022 10:04-0400 Body temperature 97.7 [degF] [facility] 11-08-2022 10:04-0400 Diastolic blood pressure 80 mm[Hg] [facility] 11-08-2022 10:04-0400 Heart rate 72 /min Mt GAMINGLE [facility] 11-08-2022 10:04-0400 Respiratory rate 18 /min Mt KAPLE [facility] 11-08-2022 10:04-0400 SaO2% (BldA) [Mass fraction] 96 % [facility] KAPLE [facility] 11-08-2022 10:04-0400 Systolic blood pressure 130 mm[Hg] [facility] 10-24-2022 08:59-0400 Heart rate 63 /min Pawan Zumbar [facility] 10-24-2022 08:59-0400 SaO2% (BldA) [Mass fraction] 95 % Pawan Zumbar [facility] 10-24-2022 08:59-0400 Diastolic blood pressure 77 mm[Hg] Pawan Zumbar [facility] 10-24-2022 08:59-0400 Mean blood pressure 90 mm[Hg] Pawan Zumbar [facility] 10-24-2022 08:59-0400 Systolic blood pressure 118 mm[Hg] Pawan Zumbar [facility] 10-24-2022 08:48-0400 Diastolic blood pressure 108 mm[Hg] Pawan Zumbar [facility] 10-24-2022 08:48-0400 Heart rate 66 /min Pawan Zumbar [facility] 10-24-2022 08:48-0400 Respiratory rate 18 /min Pawan Zumbar [facility] 10-24-2022 08:48-0400 SaO2% (BldA) [Mass fraction] 92 % Pawan Zumbar [facility] 10-24-2022 08:48-0400 Systolic blood pressure 153 mm[Hg] Pawan Zumbar [facility] 10-24-2022 07:25-0400 Heart rate 72 /min Pawan Zumbar [facility] 10-24-2022 07:25-0400 SaO2% (BldA) [Mass fraction] 93 % Pawan Zumbar [facility] 10-24-2022 07:25-0400 Diastolic blood pressure 67 mm[Hg] Pawan Zumbar [facility] 10-24-2022 07:25-0400 Mean blood pressure 81 mm[Hg] Pawan Zumbar [facility] 10-24-2022 07:25-0400 Systolic blood pressure 109 mm[Hg] Pawan Zumbar [facility] 10-24-2022 07:25-0400 Body temperature 97.7 [degF] Pawan Zumbar [facility] 10-24-2022 07:25-0400 Respiratory rate 16 /min Pawan Zumbar [facility] 09-27-2022 09:21-0500 Diastolic blood pressure 69 mm[Hg] Pawan Zumbar [facility] 09-27-2022 09:21-0500 Heart rate 75 /min Pawan Zumbar [facility] 09-27-2022 09:21-0500 Mean blood pressure 83 mm[Hg] Pawan Zumbar [facility] 09-27-2022 09:21-0500 Systolic blood pressure 111 mm[Hg] Pawan Zumbar [facility] 09-14-2022 10:47-0500 Blood Pressure Location [facility] 09-14-2022 10:47-0500 Body temperature 98.96 [degF] [facility] 09-14-2022 10:47-0500 Diastolic blood pressure 74 mm[Hg] [facility] 09-14-2022 10:47-0500 Heart rate 73 /min [facility] 09-14-2022 10:47-0500 SaO2% (BldA) [Mass fraction] 93 % [facility] 09-14-2022 10:47-0500 Systolic blood pressure 130 mm[Hg] [facility] 08-28-2022 10:42-0500 Blood Pressure Location [facility] 08-28-2022 10:42-0500 Body temperature 97.7 [degF] [facility] 08-28-2022 10:42-0500 Diastolic blood pressure 72 mm[Hg] [facility] 08-28-2022 10:42-0500 Heart rate 74 /min [facility] K[facility] 08-28-2022 10:42-0500 SaO2% (BldA) [Mass fraction] 94 % [facility] 08-28-2022 10:42-0500 Systolic blood pressure 106 mm[Hg] [facility] 08-23-2022 14:33-0500 Diastolic blood pressure 73 mm[Hg] Pawan Zumbar [facility] 08-23-2022 14:33-0500 Heart rate 67 /min Pawan Zumbar [facility] 08-23-2022 14:33-0500 Mean blood pressure 88 mm[Hg] Pawan Zumbar [facility] 08-23-2022 14:33-0500 Respiratory rate 20 /min Pawan Zumbar [facility] 08-23-2022 14:33-0500 Systolic blood pressure 118 mm[Hg] Pawan Zumbar [facility] 08-23-2022 07:44-0500 Blood Pressure Location [facility] K[facility] 08-23-2022 07:44-0500 Body temperature 97.88 [degF] [facility] 08-23-2022 07:44-0500 Diastolic blood pressure 78 mm[Hg] Mt K[facility]LE [facility] 08-23-2022 07:44-0500 Heart rate 78 /min Mt KAPLE [facility] 08-23-2022 07:44-0500 Respiratory rate 16 /min Mt KAPLE [facility] 08-23-2022 07:44-0500 SaO2% (BldA) [Mass fraction] 94 % [facility] K[facility]LE [facility] 08-23-2022 07:44-0500 Systolic blood pressure 130 mm[Hg] [facility] 08-01-2022 17:02-0500 Blood Pressure Location [facility] 08-01-2022 17:02-0500 Body temperature 97.88 [degF] [facility] 08-01-2022 17:02-0500 Diastolic blood pressure 70 mm[Hg] [facility] 08-01-2022 17:02-0500 Heart rate 85 /min [facility] 08-01-2022 17:02-0500 SaO2% (BldA) [Mass fraction] 92 % [facility] 08-01-2022 17:02-0500 Systolic blood pressure 120 mm[Hg] [facility] 06-22-2022 12:00-0500 Diastolic blood pressure 70 mm[Hg] [facility] 06-22-2022 12:00-0500 Mean blood pressure 90 mm[Hg] [facility] 06-22-2022 12:00-0500 Systolic blood pressure 130 mm[Hg] [facility] 06-22-2022 11:52-0500 Blood Pressure Location [facility] 06-22-2022 11:52-0500 Body temperature 98.24 [degF] [facility] 06-22-2022 11:52-0500 Diastolic blood pressure 98 mm[Hg] [facility] 06-22-2022 11:52-0500 Heart rate 73 /min [facility] 06-22-2022 11:52-0500 SaO2% (BldA) [Mass fraction] 95 % [facility] 06-22-2022 11:52-0500 Systolic blood pressure 140 mm[Hg] [facility] 06-08-2022 13:40-0400 Diastolic blood pressure 76 mm[Hg] Katrina Urena MD Work Phone: [facility] 06-08-2022 13:40-0400 Heart rate 77 /min Katrina Urena MD Work Phone: [facility] 06-08-2022 13:40-0400 Respiratory rate 16 /min Katrina Urena MD Work Phone: [facility] 06-08-2022 13:40-0400 SaO2% (BldA) [Mass fraction] 94 % Katrina Urena MD Work Phone: [facility] 06-08-2022 13:40-0400 Systolic blood pressure 119 mm[Hg] Katrina Urena MD Work Phone: [facility] 06-08-2022 13:03-0400 Body temperature 97.7 [degF] Katrina Urena MD Work Phone: [facility] 06-08-2022 12:10-0400 Body height 185.4 cm Katrina Urena MD Work Phone: [facility] 06-08-2022 12:10-0400 Body weight 144.24 kg Katrina Urena MD Work Phone: [facility] 02-22-2022 09:29-0400 Blood Pressure Location Gonzales NILL [facility] 02-22-2022 09:29-0400 Diastolic blood pressure 76 mm[Hg] Gonzales NILL [facility] 02-22-2022 09:29-0400 Heart rate 78 /min Gonzales NILL [facility] 02-22-2022 09:29-0400 Respiratory rate 16 /min Gonzales NILL [facility] 02-22-2022 09:29-0400 Systolic blood pressure 120 mm[Hg] Gonzales NILL [facility] 02-20-2022 07:43-0400 Blood Pressure Location Mt K[facility]LE [facility] 02-20-2022 07:43-0400 Body temperature 97.88 [degF] [facility] K[facility] 02-20-2022 07:43-0400 Diastolic blood pressure 72 mm[Hg] [facility] K[facility] 02-20-2022 07:43-0400 Heart rate 81 /min Mt KAPLE [facility] 02-20-2022 07:43-0400 Respiratory rate 18 /min Mt KAPLE [facility] 02-20-2022 07:43-0400 SaO2% (BldA) [Mass fraction] 94 % Mt K[facility]LE [facility] 02-20-2022 07:43-0400 Systolic blood pressure 124 mm[Hg] [facility] K[facility] 12-14-2021 15:06-0400 Blood Pressure Location Mt KAPLE [facility] 12-14-2021 15:06-0400 Body temperature 98.06 [degF] [facility] 12-14-2021 15:06-0400 Diastolic blood pressure 72 mm[Hg] [facility] K[facility]LE [facility] 12-14-2021 15:06-0400 Heart rate 70 /min Mt KAPLE [facility] 12-14-2021 15:06-0400 Respiratory rate 18 /min Mt KAPLE [facility] 12-14-2021 15:06-0400 SaO2% (BldA) [Mass fraction] 93 % Mt K[facility]LE [facility] 12-14-2021 15:06-0400 Systolic blood pressure 122 mm[Hg] [facility] K[facility] Encounters Encounter Date Encounter Type Care Provider Facility Start: 08-31-2024 ambulatory Mt A KAPLE Facility: [facility] Start: 12-10-2023 ambulatory Mt A KAPLE Facility: [facility] Start: 09-24-2023 ambulatory Mt A KAPLE Facility: [facility] Start: 09-24-2023 End: 09-24-2023 Patient encounter procedure Mt A AMBERLYLE [facility] Start: 09-20-2023 End: 09-20-2023 Emergency department patient visit Kevin Brizuela Facility:[facility] Start: 09-20-2023 End: 09-20-2023 Emergency department patient visit Kevin Brizuela [facility] Start: 09-12-2023 ambulatory Mt A KAPLE Facility: [facility] Start: 09-05-2023 End: 09-06-2023 ambulatory Mt A KAPLE Facility:[facility] Start: 09-04-2023 End: 09-05-2023 ambulatory Mt A KAPLE Facility:[facility] Start: 09-04-2023 End: 09-04-2023 Patient encounter procedure Mt A KAPLE [facility] Start: 08-26-2023 End: 08-27-2023 ambulatory Mt A KAPLE Facility:[facility] Start: 08-26-2023 End: 08-26-2023 Patient encounter procedure Mt A KAPLE [facility] Start: 08-26-2023 End: 08-26-2023 Well adult monitoring check done Mt A AMBERLYLE [facility] Start: 07-17-2023 End: 07-18-2023 ambulatory XXXX NONE Facility:[facility] Start: 07-17-2023 End: 07-17-2023 Patient encounter procedure Basem G. Murillo [facility] Start: 07-10-2023 End: 07-11-2023 ambulatory Matty Murillo Facility:[facility] Start: 07-09-2023 End: 07-10-2023 ambulatory Mhd Yaser Al-Marrawi Facility:[facility] Start: 07-09-2023 End: 07-09-2023 Patient encounter procedure Mhd Yaser Al-Marrawi [facility] Start: 07-08-2023 End: 07-09-2023 ambulatory Mhd Yaser Al-Marrawi Facility:[facility] Start: 06-26-2023 End: 06-27-2023 ambulatory Mt A MAMTA Facility:[facility] Start: 06-26-2023 End: 06-26-2023 Patient encounter procedure Matty Murillo [facility] Start: 06-19-2023 End: 06-19-2023 ambulatory Kalli Copsey Facility:[facility] Start: 06-11-2023 End: 06-12-2023 ambulatory KALLI COPSEY Facility:[facility] Start: 06-11-2023 End: 06-11-2023 Patient encounter procedure KALLI COPALANIS [facility] Start: 06-03-2023 End: 06-04-2023 ambulatory Mt A MAMTA Facility:[facility] Start: 06-03-2023 End: 06-03-2023 Patient encounter procedure Mt A MAMTA [facility] Start: 06-03-2023 End: 06-04-2023 ambulatory Mt A MAMTA Facility:[facility] Start: 06-03-2023 End: 06-03-2023 Patient encounter procedure Mt GOODEN [facility] Start: 04-23-2023 End: 04-24-2023 ambulatory Osvaldo Garza Facility:[facility] Start: 04-23-2023 End: 04-23-2023 Patient encounter procedure Bryce Franky Luisana [facility] Start: 04-10-2023 End: 04-11-2023 ambulatory Mhd Yaser Al-Marrawi Facility:[facility] Start: 04-10-2023 End: 04-10-2023 Patient encounter procedure Mhd Yaser Al-Marrawi [facility] Start: 04-09-2023 End: 04-10-2023 ambulatory Mhd Yaser Al-Marrawi Facility:[facility] Start: 04-09-2023 End: 04-09-2023 Patient encounter procedure Mitch Coleterry [facility] Start: 04-05-2023 End: 04-06-2023 ambulatory Mhd Yaser Al-Marrawi Facility:[facility] Start: 04-05-2023 End: 04-05-2023 Patient encounter procedure Mhd Yaser Al-Marrawi [facility] Start: 03-29-2023 End: 03-30-2023 ambulatory Matty Murillo Facility:[facility] Start: 03-29-2023 End: 03-29-2023 Patient encounter procedure Matty Mills Murillo [facility] Start: 03-13-2023 End: 03-13-2023 Emergency department patient visit Jordan Dean Facility:[facility] Start: 03-13-2023 End: 03-13-2023 Emergency department patient visit Jordan Dean [facility] Start: 03-11-2023 End: 03-12-2023 ambulatory Ahmad Angelito Facility:[facility] Start: 03-11-2023 End: 03-11-2023 Patient encounter procedure Azra Nita Craolyn [facility] Start: 03-01-2023 End: 03-02-2023 ambulatory Kevin LOBO [facility] Start: 02-20-2023 End: 03-22-2023 ambulatory [facility] A MAMTA Facility::[id number] Start: 02-18-2023 End: 02-19-2023 Evaluation and management of inpatient Marcell Jensen Facility:[facility] Start: 02-18-2023 End: 02-19-2023 ambulatory Mt A MAMTA Facility:[facility] Start: 02-18-2023 End: 02-19-2023 Evaluation and management of inpatient Anaid Angelito [facility] Start: 02-18-2023 End: 02-18-2023 Patient encounter procedure Mt A MAMTA [facility] Start: 02-15-2023 End: 02-16-2023 ambulatory Mt A MMATA Facility:[facility] Start: 02-15-2023 End: 02-15-2023 Patient encounter procedure Mt A AMBERLYLE [facility] Start: 01-25-2023 End: 01-26-2023 ambulatory MT A MAMTA Facility:[facility] Start: 01-25-2023 End: 01-25-2023 ambulatory MT A AMBERLYLE Facility:[facility] Start: 01-23-2023 End: 01-24-2023 ambulatory [facility] Facility:[facility] Start: 12-17-2022 Telephone encounter Juma dupont MD Work Phone: Rheumatology Comment on above: Results Start: 12-10-2022 End: 12-11-2022 ambulatory Mt GOODEN Facility:[facility] Start: 12-10-2022 End: 12-10-2022 Patient encounter procedure Mt GOODEN [facility] Start: 12-05-2022 End: 12-05-2022 ambulatory MT GOODEN Facility:[facility] Start: 12-05-2022 End: 12-05-2022 Subsequent hospital visit by physician Xr [facility] Comment on above: Bilateral low back [...] Rheumatology Comment on above: [facility] Start: 12-02-2022 End: 12-02-2022 Emergency department patient visit [facility] Facility:[facility] Start: 12-02-2022 End: 12-02-2022 Emergency department patient visit [facility] Arabella saran [facility] Start: 11-29-2022 End: 11-30-2022 ambulatory Mt GOODEN Facility:[facility] Start: 11-29-2022 End: 11-29-2022 Pain Management Pawan Laureano [facility] Start: 11-19-2022 End: 11-20-2022 ambulatory Mt GOODEN Facility:[facility] Start: 11-19-2022 End: 11-19-2022 Patient encounter procedure Mt GOODEN [facility] Start: 11-14-2022 End: 11-14-2022 ambulatory JUAM MONK Facility:[facility] Start: 11-14-2022 End: 11-14-2022 Office outpatient new 45 minutes Juma Monk MD Work Phone: Rheumatology Comment on above: Chronic right-sided low back pain with right-sided sciatica (Primary Dx) Start: 11-08-2022 End: 11-09-2022 ambulatory Mt GOODEN Facility:[facility] Start: 11-08-2022 End: 11-08-2022 Patient encounter procedure Mt GOODEN [facility] Start: 10-24-2022 End: 10-25-2022 ambulatory Pawan Zumbar Facility:[facility] Start: 10-24-2022 End: 10-24-2022 Pain Management Pawan Zumbar [facility] Start: 09-27-2022 End: 09-28-2022 ambulatory Mt GOODEN Facility:[facility] Start: 09-27-2022 End: 09-27-2022 Pain Management Pawan Zumbar [facility] Start: 09-18-2022 End: 09-18-2022 Patient encounter procedure Mt GOODEN [facility] Start: 09-14-2022 End: 09-14-2022 Patient encounter procedure Thao Duncna [facility] Start: 09-10-2022 End: 09-10-2022 Patient encounter procedure Pawan Neoumbar [facility] Start: 08-28-2022 End: 08-28-2022 Patient encounter procedure Mt GOODEN [facility] Start: 08-28-2022 End: 08-28-2022 Well adult monitoring check done Mt GOODEN [facility] Start: 08-23-2022 End: 08-23-2022 Pain Management Pawan Laureano [facility] Start: 08-23-2022 End: 08-23-2022 Patient encounter procedure Mt Yisel MAMTA [facility] Start: 08-01-2022 End: 08-01-2022 Patient encounter procedure Thao Duncan [facility] Start: 06-22-2022 End: 06-22-2022 Patient encounter procedure Thao Duncan [facility] Start: 06-08-2022 End: 06-08-2022 ambulatory KATRINA URENA Facility:[facility] Start: 06-08-2022 End: 06-08-2022 Subsequent hospital visit by physician Katrina Urena MD Work Phone: Gastroenterology Comment on above: 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] Start: 04-26-2022 Telephone encounter Marguerite Potts RNcity planning teacher Comment on above: Appointment Confirma tion Start: 04-09-2022 End: 04-10-2022 ambulatory KATRINA URENA Facility:[facility] Start: 04-09-2022 End: 04-10-2022 ambulatory KATRINA URENA Facility:[facility] Start: 04-09-2022 End: 04-09-2022 Patient encounter procedure Katrina Urena MD Work Phone: Gastroenterology Comment on above: Mccarty's esophagus with dysplasia (Primary Dx) Start: 02-22-2022 End: 02-22-2022 Patient encounter procedure Gonzales ROBBINS [facility] Start: 02-20-2022 End: 02-20-2022 Patient encounter procedure Mt GOODEN [facility] Start: 12-14-2021 End: 12-14-2021 Patient encounter procedure Mt GOODEN [facility] Start: 03-18-2021 End: 12-06-2021 Recurring Mt GOODEN [facility] Procedures Date Procedure Procedure Detail [...] cleared fda spec home use Sky Howe APRN.PHYSICIAN SCIENTIST Work Phone: Start: 06-08-2022 Esophagogastroduodenoscopy transoral diagnostic Katrina Urena MD Work Phone: Start: 06-08-2022 Gluc bld gluc mntr dev cleared fda spec home use Sky Howe APRN.PHYSICIAN SCIENTIST Work Phone: Start: 03-15-2022 Esophagogastroduodenoscopy gastric outlet reduction Thao Duncan Start: 08-12-2018 Esophagogastroduodenoscopy Gonzales ROBBINS Start: 12-27-2016 Myringotomy and insertion of tympanic ventilation tube Mt GOOD[facility] Start: 01-19-2015 right knee arthroscopy with partial medial and lateral meniscectomy, chondroplasty medial compartment Mt [facility] Colonoscopy Gonzales DIAZKonstantin rotator cuff left shoulder 1 [facility] Comment on above: 2001 rotator cuff left shoulder 2 Pawan Laureano Comment on above: 2001 Skin (tissue) specimen (specimen) Thao Duncan Sphincterotomy anal division sphincter spx [facility] Plan of Treatment Date Care Activity Detail Author Start: 04-09-2025 DIABETES SCREEN DIABETES SCREEN [facility] Start: 04-12-2023 Influenza vaccination INFLUENZA (#1) [facility] Start: 12-17-2022 End: 02-16-2023 C reactive protein [Mass/volume] in Serum or Plasma C-REACTIVE PROTEIN (CRP) Lab Routine Sacrococcygeal disorders, not elsewhere classified Expected: 12/17/2022, Expires: 02/16/2023 [facility] Work Phone: Comment on above: Expected: 12/17/2022 , Expires: 02/16/2023 Start: 12-17-2022 End: 02-16-2023 Erythrocyte sedimentation rate SED RATE WESTERGREN Lab Routine Sacrococcygeal disorders, not elsewhere classified Expected: 12/17/2022, Expires: 02/16/2023 [facility] Work Phone: Comment on above: Expected: 12/17/2022 , Expires: 02/16/2023 Start: 09-13-2022 COVID-19 VACCINE (5 - Moderna series) COVID-19 VACCINE (5 - Moderna series) [facility] Start: 08-12-2022 ADVANCE DIRECTIVE DISCUSSION ADVANCE DIRECTIVE DISCUSSION [facility] Start: 08-12-2022 DEPRESSION ASSESSMENT DEPRESSION ASS ESSMENT [facility] Start: 04-12-2022 Influenza vaccination INFLUENZA (#1) [facility] Start: 04-09-2022 End: 06-09-2022 Comprehensive metabolic 2000 panel - Serum or Plasma [facility] Work Phone: Comment on above: Expected: 04/09/2022 , Expires: 06/09/2022 Start: 10-12-2021 COVID-19 VACCINE (4 - Booster for Moderna series) COVID-19 VACCINE (4 - Booster for Moderna series) [facility] Start: 08-12-2021 ADVANCE DIRECTIVE DISCUSSION ADVANCE DIRECTIVE DISCUSSION [facility] Start: 08-12-2021 DEPRESSION ASSESSMENT DEPRESSION ASS ESSMENT [facility] Start: 01-27-2013 PNEUMOCOCCAL: 65+ (1 - PCV) PNEUMOCOCCAL: 65+ (1 - PCV) [facility] Start: 01-27-1998 SHINGRIX VACCINE (1 of 2) SHINGRIX VACCINE (1 of 2) [facility] Start: 01-27-1993 COLOGUARD (FIT-DNA) COLOGUARD (FIT-D NA) [facility] Start: 01-27-1993 Colonoscopy COLONOSCOPY [facility] Start: 01-27-1993 COLORECTAL CANCER SCREENING COLORECTAL CANCER SCREENING [facility] Start: 01-27-[address] COLONOGRAPHY [facility] Start: 01-27-1993 DIABETES SCREEN DIABETES SCREEN [facility] Start: 01-27-1993 FECAL OCCULT BLOOD FECAL OCCULT BLOO D [facility] Start: 01-27-1993 SIGMOIDOSCOPY SIGMOIDOSCOPY [facility] Start: 01-27-1983 LIPID SCREEN LIPID SCREEN [facility] Start: 01-27-1967 Urine microalbumin profile DTAP,TDAP,TD (1 - Tdap) [facility] Start: 01-27-1966 ANNUAL PCP TEAM TIN DIPPER CRISTO DISEASE VISIT ANNUAL PCP TEAM CHRONIC DISEASE VISIT [facility] Start: 01-27-1966 Hepatitis B surface antibody level LDL CHOLESTEROL [facility] [facility] Start: 01-27-1966 HEPATITIS C SCREENING HEPATITIS C SC REENING [facility] Start: 1960 Adult depression screening assessment DEPRESSION SCREENING [facility] Start: 01-27-1958 3 comp foot exam completed DIABETIC FOOT EXAM [facility] Start: 01-27-1958 Hepatitis B screening URINE AL BUMIN:CREATININE RATIO [facility] Start: 01-27-1958 Hepatitis C antibody , confirmatory test DILATED RETINAL EXAM [facility] Start: 01-27-1954 PNEUMOCOCCAL: 65+ (1 - PCV) PNEUMOCOCCAL: 65+ (1 - PCV) [facility] Start: 01-27-1953 Hemoglobin A1c/Hemoglobin.total in Blood HBA1C [facility] End: 04-09-2023 EGD DIAGNOSTIC EGD DIAGNOSTIC Endoscopy Routine Mccarty's esophagus with dysplasia 1 Occurrences starting 04/09/2022 until 04/09/2023 [facility] Work Phone: Comment on above: 1 Occurrences starti ng 04/09/2022 until 04/09/2023 End: 01-16-2024 Mri pelvis w/o contrast material MRI SACRUM/COCCYX WO IVCON Radiology Routine Sacrococcygeal disorders, not elsewhere classified 1 Occurrences starting 12/17/2022 until 01/16/2024 [facility] Work Phone: Comment on above: 1 Occurrences starti ng 12/17/2022 until 01/16/2024 End: 01-05-2024 Radiologic examination sacroiliac jnts <3 views XR SACROILIAC JOINTS 2V AP PELVIS/FERGUESON Radiology Routine Bilateral low back pain with sciatica, sciatica laterality unspecified, unspecified chronicity 1 Occurrences starting 12/05/2022 until 01/05/2024 [facility] Work Phone: Comment on above: 1 Occurrences starti ng 12/05/2022 until 01/05/2024 Radiologic examinati on sacroiliac jnts <3 views XR SACROILIAC JOINTS 2V AP PELVIS/FERGUESON Radiology Routine Bilateral low back pain with sciatica, sciatica laterality unspecified, unspecified chronicity 12/05/2022 1:53 PM EDT [facility] Work Phone: SURGICAL PATHOLOGY [facility] Work Phone: Comment on above: Release Upon Orderin g for 1 Occurrences starting 06/08/2022, 1 completed [facility] Immunizations Immunization Date Immunization Notes Care Provider Fa salas 06-29-2023 canakinumab franky Leon [facility] Comment on above: Result Comment: RSV Vaccine given per [facility] 05-16-2023 influenza virus vacc ine, unspecified formulation [facility] 05-16-2023 SARS-CoV-2 (COVID-19 ) mRNA-1273 vaccine [facility] Comment on above: Result Comment: give n per [facility] 05-13-2022 influenza virus vacc ine, unspecified formulation Thao Duncan [facility] 05-13-2022 SARS-CoV-2 (COVID-19 ) mRNA-1273 vaccine Thao Urbanojhony [facility] 06-14-2021 COVID-19, mRNA, LNP- S, PF, 100 mcg or 50 mcg dose; Translations: [SARS-CoV-2 (COVID-19) mRNA-1273 vaccine] [facility] 05-19-2021 influenza virus vacc ine, unspecified formulation [facility] 01-09-2021 tetanus toxoid, redu hermilo diphtheria toxoid, and acellular pertussis vaccine, adsorbed; Translations: [Adacel (Tdap)] [facility] 10-19-2020 COVID-19, mRNA, LNP- S, PF, 100 mcg or 50 mcg dose; Translations: [Moderna COVID-19 Vaccine] [facility] Comment on above: Reason for Medicatio n: Other (see comment) 09-21-2020 COVID-19, mRNA, LNP- S, PF, 100 mcg or 50 mcg dose; Translations: [Moderna COVID-19 Vaccine] [facility] Comment on above: Reason for Medicatio n: Other (see comment) 05-17-2020 influenza virus vacc ine, unspecified formulation [facility] 06-11-2019 influenza virus vacc ine, live, attenuated, for intranasal use [facility] Comment on above: Result Comment: done at [facility] in [place] 06-01-2019 influenza virus vacc ine, unspecified formulation [facility] 05-29-2019 influenza virus vacc ine, unspecified formulation [facility] 07-22-2018 pneumococcal polysaccharide vaccine, 23 valent [facility] 07-22-2017 pneumococcal conjuga te vaccine, 13 valent [facility] 05-15-2016 influenza virus vacc ine, unspecified formulation [facility] 06-23-2014 tetanus toxoid, redu hermilo diphtheria toxoid, and acellular pertussis vaccine, adsorbed [facility] Payers Date Payer Category Payer Self-pay 2015 Medicare [id number] 2015 Private Health Insurance [employer] A ETNA MEDICARE SUPPLEMENT [id number] 2015-Present [phone] [address] [address] [place] [address] Indemnity [id number] 2013 Medicare MEDICARE MEDICAR E A AND B [id number] 2013-Present [phone] [address] [address] [place] [address] Medicare [id number] 2013 Medicare [id number] 1950 Unknown [id number] 2.16.840.1.953723.3.579 .2.727 1948 Unknown [id number] 2.16.840.1.090207.3.579 .2.72 1948 Unknown [id number] 2.16.840.1.084770.3.579 .2. 1948 Unknown [id number] 2.16.840.1.147544.3.579 .2. 1948 Unknown [id number] 2.16.840.1.668611.3.579 .2. 1948 Unknown [id number] 2.16.840.1.420173.3.579 .2. 1948 Unknown [id number] 2.16.840.1.720101.3.579 .2. 1948 Unknown [id number] 2.16.840.1.394685.3.579 .2. 1948 Unknown [id number] 2.16.840.1.200628.3.579 .2 1948 Unknown [id number] 2.16.840.1.245879.3.579 .2. 1948 Unknown [id number] 2.16.840.1.013358.3.579 .2. 1948 Unknown [id number] 2.16.840.1.973433.3.579 .2. 1948 Unknown [id number] 2.16.840.1.042659.3.579 .2. 1948 Unknown [id number] 2.16.840.1.363773.3.579 .2. 1948 Unknown [id number] 2.16.840.1.013835.3.579 .2. 1948 Unknown [id number] 2.16.840.1.650564.3.579 .2. 1948 Unknown [id number] 2.16.840.1.854363.3.579 .2 1948 Unknown [id number] 2.16.840.1.425710.3.579 .2.72 1948 Unknown [id number] 2.16.840.1.775095.3.579 .2. 1948 Unknown [id number] 2.16.840.1.620791.3.579 .2. 1948 Unknown [id number] 2.16.840.1.251296.3.579 .2. 1948 Unknown [id number] 2.16.840.1.377319.3.579 .2. 1948 Unknown [id number] 2.16.840.1.708903.3.579 .2 1948 Unknown [id number] 2.16.840.1.277510.3.579 .2 1948 Unknown [id number] 2.16.840.1.730389.3.579 .2 1948 Unknown [id number] 2.16.840.1.738609.3.579 .2 1948 Unknown [id number] 2.16.840.1.886784.3.579 .2 1948 Unknown [id number] 2.16.840.1.753287.3.579 .2 1948 Unknown [id number] 2.16.840.1.399325.3.579 .2 1948 Unknown [id number] 2.16.840.1.168911.3.579 .2. 1948 Unknown [id number] 2.16.840.1.925448.3.579 .2 1948 Unknown [id number] 2.16.840.1.453954.3.579 .2. 1948 Unknown [id number] 2.16.840.1.523954.3.579 .27 1948 Unknown [id number] 2.16.840.1.792283.3.579 .2.727 1948 Unknown [id number] 2.16.840.1.750244.3.579 .2.727 Unknown [id number] 2.16.840.1.582864.3.579 .2.531 Social History Date Type Detail Facility Start: 09-18-2021 End: 09-24-2023 Tobacco smoking status Never smoked tobacco (finding) [facility] Comment on above: denies denies use Tobacco smoking status Never [facility] Comment on above: denies denies use Start: 09-09-2022 End: 12-05-[address] Male [facility] Tobacco smoking status NHIS Tobacco smoking consumption unknown [facility] Start: 1950 Sex Assigned At Not on file [facility] Start: 03-30-2022 End: 04-10-2022 Exposure to SARS-CoV-2 (event) Not sure [facility] Work Phone: Start: 06-08-2022 Tobacco use and exposure Smokeless tobacco non-user [facility] Start: 06-08-2022 End: 12-05-2022 Alcohol intake Current drinker of alcohol (finding) [facility] Start: 06-08-2022 Alcohol Comment occasional [facility] Tobacco [facility] Comment on above: Denies Tobacco smoking status No Smoking Status Entered [facility] Start: 09-09-2022 End: 12-05-2022 History of Social function [facility] Functional Status Date Assessment Result Facility 09-24-2023 Functional Status N/A [facility] 09-20-2023 Functional Status N/A [facility] 08-26-2023 Functional Status N/A [facility] 07-17-2023 Functional Status No [facility] 06-26-2023 Functional Status No [facility] 06-03-2023 Functional Status N/A [facility] 03-13-2023 Functional Status N/A [facility] 02-18-2023 Functional Status No [facility] 02-18-2023 Functional Status N/A [facility] 12-10-2022 Functional Status N/A [facility] 12-02-2022 Functional Status N/A [facility] 11-29-2022 Functional Status N/A [facility] 11-08-2022 Functional Status N/A [facility] 09-27-2022 Functional Status N/A [facility] 09-14-2022 Functional Status N/A [facility] 08-28-2022 Functional Status N/A [facility] 08-23-2022 Functional Status N/A [facility] 08-23-2022 Functional Status N/A [facility] 08-01-2022 Functional Status N/A [facility] 06-22-2022 Functional Status N/A [facility] 02-22-2022 Functional Status N/A [facility] [place] 02-20-2022 Functional Status N/A [facility] Clinical Notes 02-20-2022 to 09-24-2023 LaboratoryRadiology Note Date & Type Note Facility 09-24-2023 Hospital Discharg e instructions Patient Education 09/24/2023 10:59:29 Head Injury, Adult, Gocb-wk-Xhsv Head Injury, Adult There are many types of head injuries. They can be as minor as a small bump. Some head injuries can be worse. Worse injuries include: A strong hit to the head that shakes the brain back and forth, causing damage (concussion). A bruise (contusion) of the brain. This means there is bleeding in the brain that can cause swelling. A cracked skull (skull fracture). Bleeding in the brain that gathers, gets thick (makes a clot), and forms a bump (hematoma). Most problems from a head injury come in the first 24 hours. However, you may still have side effects up to 7 10 days after your injury. It is important to watch your condition for any changes. You may need to be watched in the emergency department or urgent care, or you may need to stay in the hospital. What are the causes? There are many possible causes of a head injury. A serious head injury may be caused by: A car accident. Bicycle or motorcycle accidents. Sports injuries. Falls. Being hit by an object. What are the signs or symptoms? Symptoms of a head injury include a bruise, bump, or bleeding where the injury happened. Other physical symptoms may include: Headache. Feeling like you may vomit (nauseous) or vomiting. Dizziness. Blurred or double vision. Being uncomfortable around bright lights or loud noises. Shaking movements that you cannot control (seizures). Feeling tired. Trouble being woken up. Fainting or loss of consciousness. Mental or emotional symptoms may include: Feeling grumpy or cranky. Confusion and memory problems. Having trouble paying attention or concentrating. Changes in eating or sleeping habits. Feeling worried or nervous (anxious). Feeling sad (depressed). How is this treated? Treatment for this condition depends on how severe the injury is and the type of injury you have. The main goal is to prevent problems and to allow the brain time to heal. Mild head injury If you have a mild head injury, you may be sent home, and treatment may include: Being watched. A responsible adult should stay with you for 24 hours after your injury and check on you often. Physical rest. Brain rest. Pain medicines. Severe head injury If you have a severe head injury, treatment may include: Being watched closely. This includes staying in the hospital. Medicines to: ?Help with pain. ?Prevent seizures. ?Help with brain swelling. Protecting your airway and using a machine that helps you breathe (ventilator). Treatments to watch for and manage swelling inside the brain. Brain surgery. This may be needed to: ?Remove a collection of blood or blood clots. ?Stop the bleeding. ?Remove a part of the skull. This allows room for the brain to swell. Follow these instructions at home: Activity Rest. Avoid activities that are hard or tiring. Make sure you get enough sleep. Let your brain rest. Do this by limiting activities that need a lot of thought or attention, such as: ?Watching TV. ?Playing memory games and puzzles. ?Job-related work or homework. ?Working on the computer, social media, and texting. Avoid activities that could cause another head injury until your doctor says it is okay. This includes playing sports. Having another head injury, especially before the first one has healed, can be dangerous. Ask your doctor when it is safe for you to go back to your normal activities, such as work or school. Ask your doctor for a seab-rp-ztid plan for slowly going back to your normal activities. Ask your doctor when you can drive, ride a bicycle, or use heavy machinery. Do not do these activities if you are dizzy. Lifestyle Do not drink alcohol until your doctor says it is okay. Do not use drugs. If it is harder than usual to remember things, write them down. If you are easily distracted, try to do one thing at a time. Talk with family members or close friends when making important decisions. Tell your friends, family, a trusted co-worker, and packing room worker about your injury, symptoms, and limits (restrictions). Have them watch for any problems that are new or getting worse. General instructions Take fphe-jzt-mlcwbyn and prescription medicines only as told by your doctor. Have someone stay with you for 24 hours after your head injury. This person should watch you for any changes in your symptoms and be ready to get help. Keep all follow-up visits as told by your doctor. This is important. How is this prevented? Work on your balance and strength. This can help you avoid falls. Wear a seat belt when you are in a moving vehicle. Wear a helmet when you: ?Ride a bicycle. ?Ski. ?Do any other sport or activity that has a risk of injury. If you drink alcohol: ?Limit how much you use to: ?0 1 drink a day for non women. ?0 2 drinks a day for men. ?Be aware of how much alcohol is in your drink. In the [place] one drink equals one 12 oz bottle of beer (355 mL), one 5 oz glass of wine (148 mL), or one 1 oz glass of hard liquor (44 mL). Make your home safer by: ?Getting rid of clutter from the floors and stairs. This includes things that can make you trip. ?Using grab bars in bathrooms and handrails by stairs. ?Placing non-slip mats on floors and in bathtubs. ?Putting more light in dim areas. Where to find more information Centers for Disease Control and Prevention: www.cdc.gov Get help right away if: You have: ?A very bad headache that is not helped by medicine. ?Trouble walking or weakness in your arms and legs. ?Clear or bloody fluid coming from your nose or ears. ?Changes in how you see (vision). ?A seizure. ?More confusion or more grumpy moods. Your symptoms get worse. You are sleepier than normal and have trouble staying awake. You lose your balance. The black centers of your eyes (pupils) change in size. Your speech is slurred. Your dizziness gets worse. You vomit. These symptoms may be an emergency. Do not wait to see if the symptoms will go away. Get medical help right away. Call your local emergency services (911 in the [place] Do not drive yourself to the hospital. Summary Head injuries can be as minor as a small bump. Some head injuries can be worse. Treatment for this condition depends on how severe the injury is and the type of injury you have. Have someone stay with you for 24 hours after your head injury. Ask your doctor when it is safe for you to go back to your normal activities, such as work or school. To prevent a head injury, wear a seat belt in a car, wear a helmet when you use a bicycle, limit your alcohol use, and make your home safer. This information is not intended to replace advice given to you by your health care provider. Make sure you discuss any questions you have with your health care provider. Document Revised: 06/10/2020 Document Reviewed: 06/10/2020 [employer] Patient Education 2022 [employer] 09/24/2023 10:59:27 Contusion, Uddj-wj-Zifd Contusion A contusion is a deep bruise. This is a result of an injury that causes bleeding under the skin. Symptoms of bruising include pain, swelling, and discolored skin. The skin may turn blue, purple, or yellow. Follow these instructions at home: Managing pain, stiffness, and swelling You may use RICE. This stands for: Resting. Icing. Compression, or putting pressure. Elevating, or raising the injured area. To follow this method, do these actions: Rest the injured area. If told, put ice on the injured area. ?Put ice in a plastic bag. ?Place a towel between your skin and the bag. ?Leave the ice on for 20 minutes, 2 3 times per day. If told, put light pressure (compression) on the injured area using an elastic bandage. Make sure the bandage is not too tight. If the area tingles or becomes numb, remove it and put it back on as told by your doctor. If possible, raise (elevate) the injured area above the level of your heart while you are sitting or lying down. General instructions Take cgwl-tzl-jcxzapt and prescription medicines only as told by your doctor. Keep all follow-up visits as told by your doctor. This is important. Contact a doctor if: Your symptoms do not get better after several days of treatment. Your symptoms get worse. You have trouble moving the injured area. Get help right away if: You have very bad pain. You have a loss of feeling (numbness) in a hand or foot. Your hand or foot turns pale or cold. Summary A contusion is a deep bruise. This is a result of an injury that causes bleeding under the skin. Symptoms of bruising include pain, swelling, and discolored skin. The skin may turn blue, purple, or yellow. This condition is treated with rest, ice, compression, and elevation. This is also called RICE. You may be given utjy-yfw-qnclhgb medicines for pain. Contact a doctor if you do not feel better, or you feel worse. Get help right away if you have very bad pain, have lost feeling in a hand or foot, or the area turns pale or cold. This information is not intended to replace advice given to you by your health care provider. Make sure you discuss any questions you have with your health care provider. Document Revised: 05/24/2022 Document Reviewed: 05/24/2022 [employer] Patient Education 2022 [employer] Follow Up Care 09/23/2023 08:07:39 With:MAMTA LEE FAAFP, [place], [place]ATRIZ, PED Address: [address] [place] [address] [place] [address]- When:Within 3 Month(s) [facility] 09-20-2023 Hospital Discharg e instructions Patient Education 09/20/2023 15:49:38 Head Injury, Adult Head Injury, Adult There are many types of head injuries. Head injuries can be as minor as a small bump, or they can be a serious medical issue. More severe head injuries include: A jarring injury to the brain (concussion). A bruise (contusion) of the brain. This means there is bleeding in the brain that can cause swelling. A cracked skull (skull fracture). Bleeding in the brain that collects, clots, and forms a bump (hematoma). After a head injury, most problems occur within the first 24 hours, but side effects may occur up to 7 10 days after the injury. It is important to watch your condition for any changes. You may need to be observed in the emergency department or urgent care, or you may be admitted to the hospital. What are the causes? There are many possible causes of a head injury. Serious head injuries may be caused by car accidents, bicycle or motorcycle accidents, sports injuries, falls, or being struck by an object. What are the symptoms? Symptoms of a head injury include a contusion, bump, or bleeding at the site of the injury. Other physical symptoms may include: Headache. Nausea or vomiting. Dizziness. Blurred or double vision. Being uncomfortable around bright lights or loud noises. Seizures. Feeling tired. Trouble being awakened. Loss of consciousness. Mental or emotional symptoms may include: Irritability. Confusion and memory problems. Poor attention and concentration. Changes in eating or sleeping habits. Anxiety or depression. How is this diagnosed? This condition can usually be diagnosed based on your symptoms, a description of the injury, and a physical exam. You may also have imaging tests done, such as a CT scan or an MRI. How is this treated? Treatment for this condition depends on the severity and type of injury you have. The main goal of treatment is to prevent complications and allow the brain time to heal. Mild head injury If you have a mild head injury, you may be sent home, and treatment may include: Observation. A responsible adult should stay with you for 24 hours after your injury and check on you often. Physical rest. Brain rest. Pain medicines. Severe head injury If you have a severe head injury, treatment may include: Close observation. This includes hospitalization with the following care: ?Frequent physical exams. ?Frequent checks of how your brain and nervous system are working (neurological status). ?Checking your blood pressure and oxygen levels. Medicines to relieve pain, prevent seizures, and decrease brain swelling. Airway protection and breathing support. This may include using a ventilator. Treatments that monitor and manage swelling inside the brain. Brain surgery. This may be needed to: ?Remove a collection of blood or blood clots. ?Stop the bleeding. ?Remove a part of the skull to allow room for the brain to swell. Follow these instructions at home: Activity Rest and avoid activities that are physically hard or tiring. Make sure you get enough sleep. Let your brain rest by limiting activities that require a lot of thought or attention, such as: ?Watching TV. ?Playing memory games and puzzles. ?Job-related work or homework. ?Working on the computer, using social media, and texting. Avoid activities that could cause another head injury, such as playing sports, until your health care provider approves. Having another head injury, especially before the first one has healed, can be dangerous. Ask your health care provider when it is safe for you to return to your regular activities, including work or school. Ask your health care provider for a lctk-kw-fztz plan for gradually returning to activities. Ask your health care provider when you can drive, ride a bicycle, or use heavy machinery. Your ability to react may be slower after a brain injury. Do not do these activities if you are dizzy. Lifestyle Do not drink alcohol until your health care provider approves. Do not use drugs. Alcohol and certain drugs may slow your recovery and can put you at risk of further injury. If it is harder than usual to remember things, write them down. If you are easily distracted, try to do one thing at a time. Talk with family members or close friends when making important decisions. Tell your friends, family, a trusted colleague, and packing room worker about your injury, symptoms, and restrictions. Have them watch for any new or worsening problems. General instructions Take ibxa-rhp-lgarxrw and prescription medicines only as told by your health care provider. Have someone stay with you for 24 hours after your head injury. This person should watch you for any changes in your symptoms and be ready to seek medical help. Keep all follow-up visits as told by your health care provider. This is important. How is this prevented? Work on improving your balance and strength to avoid falls. Wear a seat belt when you are in a moving vehicle. Wear a helmet when riding a bicycle, skiing, or doing any other sport or activity that has a risk of injury. If you drink alcohol: ?Limit how much you use to: ?0 1 drink a day for non women. ?0 2 drinks a day for men. ?Be aware of how much alcohol is in your drink. In the [place] one drink equals one 12 oz bottle of beer (355 mL), one 5 oz glass of wine (148 mL), or one 1 oz glass of hard liquor (44 mL). Take safety measures in your home, such as: ?Removing clutter and tripping hazards from floors and stairways. ?Using grab bars in bathrooms and handrails by stairs. ?Placing non-slip mats on floors and in bathtubs. ?Improving lighting in dim areas. Where to find more information Centers for Disease Control and Prevention: www.cdc.gov Get help right away if: You have: ?A severe headache that is not helped by medicine. ?Trouble walking or weakness in your arms and legs. ?Clear or bloody fluid coming from your nose or ears. ?Changes in your vision. ?A seizure. ?Increased confusion or irritability. Your symptoms get worse. You are sleepier than normal and have trouble staying awake. You lose your balance. Your pupils change size. Your speech is slurred. Your dizziness gets worse. You vomit. These symptoms may represent a serious problem that is an emergency. Do not wait to see if the symptoms will go away. Get medical help right away. Call your local emergency services (911 in the [place] Do not drive yourself to the hospital. Summary Head injuries can be minor, or they can be a serious medical issue requiring immediate attention. Treatment for this condition depends on the severity and type of injury you have. Have someone stay with you for 24 hours after your injury and check on you often. Ask your health care provider when it is safe for you to return to your regular activities, including work or school. Head injury prevention includes wearing a seat belt in a motor vehicle, using a helmet on a bicycle, limiting alcohol use, and taking safety measures in your home. This information is not intended to replace advice given to you by your health care provider. Make sure you discuss any questions you have with your health care provider. Document Revised: 06/10/2020 Document Reviewed: 06/10/2020 Elsevier Patient Education 2022 Neurologix. Follow Up Care 09/20/2023 13:50:31 With:Mt GOODEN Address: [address] [place], [place] [address]dict Zyoa, [facility] [place] [address] Business (1) When:09/23/2023 15:40:09 [facility] 09-12-2023 Evaluation + Plan note Future Appointments Appointment Date:09/25/2023 02:00:00 PM Scheduled Provider: Location:.XRAY Appointment Type:XR Pelvis/Hip (FT) Appointment Date:09/25/2023 02:15:00 PM Scheduled [facility]: [facility] Clavicle/Shoulder/AC Joints (FT) Appointment Date:12/10/2023 09:40:00 AM Scheduled Provider:Mt GOODEN DO, FAAFP Location:[facility] Appointment Type:FM Open Appointment Date:01/07/2024 10:00:00 AM Scheduled Provider:Azra Leon MD Location:.ONCOLOGY Appointment Type:ONC Office Visit 30 (FT) Appointment Date:08/31/2024 09:30:00 AM Scheduled Provider: Location:[facility] Appointment Type:FM Medicare Wellness Subsequent Future Scheduled TestsU Protein/Creat Ratio 09/05/71BbhH5e 11/21/2216CshD4r 09/05/38SjpE7s 11/21/22Microalbumin Level Urine 09/05/23PSA Screen, Total 09/05/23CBC w/ Auto Diff 01/07/24Comprehensive Metabolic Panel 01/07/24D-Dimer 01/07/24XR Hip 2-3 Views Right 09/25/23XR Shoulder Complete Left 09/25/23 [facility] 08-26-2023 Hospital Discharg e instructions Patient Education [...] use night-lights. Place frequently used items in ihvx-rc-zpwxh places. Lower the shelves around your home [...] of the way. Do not use floor vincentian or wax that makes floors slippery. If [...] include working with a physical therapist or process trainer to improve your strength, balance, and endurance. Where to find more information Centers for Disease Control and Prevention, [place]: www.cdc.gov National [place] on Aging: www.vamsi.nih.gov Contact a health care [...] provider. Document Revised: 04/30/2022 Document Reviewed: 03/01/2021 [employer] Patient Education 2022 Neurologix. 08/26/2023 10:25:59 Hypertension, Adult Hypertension, Adult High [...] follow-up visits. This is important. Medicines Take kvpt-iqn-mfpiunw and prescription medicines only as told by [...] provider. Document Revised: 06/05/2022 Document Reviewed: 06/05/2022 [employer] Patient Education 2022 Neurologix. 08/26/2023 10:25:58 Diabetes Mellitus and Exercise Diabetes [...] plan? Your health care provider or certified tower climber can help you make a plan for [...] (heat stroke). Where to find more information [place] Diabetes Association: www.diabetes.org Summary Exercising regularly is important for overall health, especially for people who have diabetes mellitus. Exercising has many health benefits. It increases muscle strength and bone density and reduces body fat and stress. It also lowers and controls blood glucose. Your health care provider or certified tower climber can help you make an activity plan [...] provider. Document Revised: 04/25/2020 Document Reviewed: 04/25/2020 [employer] Patient Education 2022 Neurologix. 08/26/2023 10:25:57 DASH Eating Plan DASH Eating [...] Dairy Whole or 2% milk, cream, and qtuk-qmw-lsqk. Whole or full-fat cream cheese. Whole-fat or [...] more information National Heart, Lung, and Blood [place]: www.nhlbi.nih.gov [place] Heart Association: www.heart.org Academy of Nutrition and [...] provider. Document Revised: 07/01/2020 Document Reviewed: 07/01/2020 [employer] Patient Education 2022 Neurologix. 08/26/2023 10:25:56 BMI for Adults BMI for [...] numbers. This can be done either in [place] ([place] or metric measurements. Note that charts and online BMI calculators are available to help you find your BMI quickly and easily without having to do these calculations yourself. To calculate your BMI in [place] ([place] measurements: 1.Measure your weight in pounds [...] Centers for Disease Control and Prevention: www.cdc.gov [place] Heart Association: www.heart.org National Heart, Lung, and Blood [place]: www.nhlbi.nih.gov Summary Body mass index (BMI) is a number that is calculated from a person's weight and height. BMI may help estimate how much of a person's weight is composed of fat. BMI can help identify those who may be at higher risk for certain medical problems. BMI can be measured using Mauritian measurements or metric measurements. BMI charts are used to identify whether you are underweight, normal weight, overweight, or obese. This information is not intended to replace advice given to you by your health care provider. Make sure you discuss any questions you have with your health care provider. Document Revised: 04/20/2020 Document Reviewed: 02/26/2020 [employer] Patient Education [facility]22 [facility] Hospital Discharg e instructions [...] drinks. ?Tomatoes and foods made with tomatoes. ?Baring or spicy foods. ?Chocolate and peppermint. Do not drink alcohol. General instructions Take ruhs-jqw-aviqijj and prescription medicines only as told by [...] provider. Document Revised: 10/15/2020 Document Reviewed: 10/15/2020 [employer] Patient Education 2022 Neurologix. 06/03/2023 14:30:19 Edema, Zgwp-xj-Hgrk Edema Edema is when you have too [...] Follow these instructions at home: Medicines Take ycxh-enm-ytuzdiz and prescription medicines only as told by [...] provider. Document Revised: 04/02/2022 Document Reviewed: 04/02/2022 [employer] Patient Education 2022 Neurologix. Follow Up Care 03/01/2023 14:08:40 With:MAMTA LEE FAAFP, [place], BEATRIZ, PED Address: [address] [place] [address]- When:Within 3 Month(s) [facility] 04-09-2023 Hospital Discharg e instructions Follow Up Care 04/09/2023 10:50:51 With:Azra Leon Address: [facility] [address] [place] [address] [place] [phone] Business (1) When: Unknown Comments:Continue Eliquis 5 mg twice daily long-term due to multiple comorbidities and history of 2 separate events of pulmonary emboli one of them is unprovoked.Follow CBCD, CMp and D dimer every 6 months. THis can be done and monitored by his PCP Dr Soriano as per patient wishes.RTC with us only as needed. [facility] 03-13-2023 Evaluation + Plan note Extrac jaun from: Title:ED Note Author:Jordan Dean DO Date :03/13/23 Cellulitis (L03.90: Cellulit is, unspecified) Orders: cephalexin, 500 mg = 1 cap(s), Cap, Oral, Once, Stop date 03/13/23 4:15:00 EDT, STAT, Start date 03/13/23 4:15:00 EDT, 03/13/23 4:15:00 EDT cephalexin, 500 mg = 1 cap(s), Oral, q6hr, X 7 day(s), # 28 cap(s), Refills(s) 0, Pharmacy: [facility]/pharmacy #[id number], 185.4, cm, 03/13/23 2:24:00 EDT, Height/Length [...] 09:45:00 AM Scheduled Provider: Location:.Sleep Clinic Appointment Type:SOFTWARE PROGRAM MANAGER Sleep Study Clinic Follow Up (FT) Appointment Date:04/09/2023 10:00:00 AM Scheduled Provider: [facility] Type:ONC Office Visit 30 (FT) Appointment Date:06/03/2023 01:20:00 PM Scheduled Provider:Mt GOODEN DO, FAAFP Location:[facility] Appointment Type: Open Appointment Date:08/26/2023 11:00:00 AM Scheduled Provider: Location:[facility] Appointment Type:FM Medicare Wellness Subsequent Diagnostic [...] Function Panel 09/10/22 * Lipid Panel 09/10/22 [facility]08-02-2023 Hospital Discharge instructions Patient Education [...] Follow these instructions at home: Medicines Take uozf-vev-gfyglzk and prescription medicines only as told by [...] such as antibiotic medicines or antihistamines. Take zoja-uis-qpmgsqs and prescription medicines only as told by [...] provider. Document Revised: 05/10/2022 Document Reviewed: 05/10/2022 Elsevier Patient Education 2022 Neurologix. 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 [facility]07-19-2023 Hospital Discharge instructions Follow Up Care 02/27/2023 09:23:46 With:Azra Leon Address: [address] [place] [phone] Business (1) When: Unknown Comments:Thrombophilia panel labs today.Continue Eliquis 5 mg twice daily long- term as long as there is no major bleeding events.Return in 1 month with CBC differential and CMP. [facility]07-18-2023 Hospital Discharge instructions Follow Up Care 02/26/2023 10:50:00 With:Chidi ESPINAL, [place], PUL, JERILYN Address: [address] [place] [address] [facility] [place] [address]- When: Unknown Comments:after his testing is completed [facility]07-11-2023 Hospital Discharge instructions Patient Education [...] Follow these instructions at home: Medicines Take gaao-xvs-qttuobt and prescription medicines only as told by [...] is important. Where to find more information [place] Lung Association: www.lung.org Centers for Disease Control [...] right away. Call your local emergency services (041 in the [place].S.). Do not drive yourself [...] provider. Document Revised: 06/30/2021 Document Reviewed: 06/30/2021 [employer] Patient Education 2022 Neurologix. Follow Up Care 02/18/2023 08:49:44 With:[facility] Address:Unknown When: Unknown Comments:[facility]amedicine will contact you to set up a home visit. Thank you. With:Ralph Jennings Address: [address] [place] [address] Business (1) When: Unknown Comments:Chronic Venous InsufPlease call Kike at Dr. Jennings's office in [place] to make a follow up appointment. The phone number is [phone]. Thank you. With:Matty Murillo Address: [address] [facility] [address] [facility] [address] [facility] [place] [address]- Business (1) When: Unknown Comments:needs PFTs and sleep studyThe central scheduling department at [facility] will need to schedule the PFT's. Please contact Dr. Murlilo's offic eto set up a time for your sleep study. Thank you. With:Mitch Amaro Address: [facility] [address] [place] [address]- When: Unknown Comments:2nd DVTDr. Amaro office will contact you to set up an appointment. If you do not hear from themin 3 days, then call [phone] and asked for Oncology/ Hematology department. Thank you. With:Mt GOODEN Address: [address], [place] [address] Business (1) When:03/01/2023 13:00:00 Comments:Your follow up appointment is with Dr. Lobo. Thank you. [facility]07-11-2023 NoteKettering Health Behavioral Medical CenterComment on above:Result Comment: Electronically Signed By: Kate Eaton MD\.br\Date and Time Signed: 02/19/23 13:17 [id number] Evaluation + Plan noteExtracted from: Title:Discharge Note Author:Kate Eaton MD ate:02/19/23 Stable Discharged to - Home with family care Prescriptions aspirin 81 mg Chew Tab, 81 mg= 1 tab(s), Oral, Daily, 3 refills Eliquis 5 mg oral tablet, 2 tabs (10 mg) BID x 7 days then 1 tab bid, Oral, BID famotidine 40 mg Tab, 40 mg= 1 tab(s), Oral, Once a day (at bedtime), 3 refills Flonase 0.05 mg/inh [place], 2 spray(s), Nasal, Daily, 11 refills, Not [...] tab(s), Oral, Once With When Contact Information Rajwindergwendolyn Dick [address] [place] [address]- Business (1) Additional Instructions: Chronic Venous Insuf Basem Murillo [address] [facility] [place] [address]- Business (1) Additional Instructions: needs PFTs and sleep study Mitch Amaro [facility] [address] [place] [address]- Additional Instructions: 2nd DVT Mt GOODEN In [address] [place] [address]- Business (1) Additional Instructions: Addendum by Angelito ESPINAL, Aiden emre on February 19, 2023 13:16:49 EDT Acute hypoxemic respiratory failure: Patient qualify for supplemental oxygen use. He will be set up with home supplemental oxygen. Etiology is likely exacerbation of underlying pulmonary hypertension. He does have Lasix at home. He was instructed to take it daily. He will follow-up outpatient with pulmonology for definitive management. Extracted from: Title:Admission H & P Author:Kate Eaton MD Date:02/18/23 73-year-old male with a medi deidra [...] Date:03/01/2023 01:00:00 PM Scheduled Provider:Kevin LOBO MD Location:[facility] [facility] Appointment Type: Hospital Follow Up w/TCM Appointment Date:08/26/2023 11:00:00 AM Scheduled Provider: Location:[facility] [facility] Appointment Type:FM Medicare Wellness Subsequent Future Scheduled [...] Lipid Panel 02/20/22 * Lipid Panel 09/10/22 [facility]07-10-2023 NoteFishMedStar Good Samaritan HospitalComment on above:Result Comment: Electronically Signed By: Angelito ESPINAL, Kate\.br\Date and Time Signed: 02/18/23 13:49 [id number] Hospital Discharge instructions Patient Education 02/18/2023 08:47:22 [...] provider. Document Revised: 03/13/2021 Document Reviewed: 03/13/2021 [employer] Patient Education 2022 Neurologix. 02/18/2023 08:47:20 Heart Failure Exacerbation Heart Failure [...] Follow these instructions at home: Medicines Take obla-nik-gwjhhgr and prescription medicines only as told by your health care provider. Do not stop taking your medicines or change the amount you take. If you are having problems or sideeffects from your medicines, talk to your health care provider. If you are having difficulty paying for your medicines, contact a social director or your clinic. There are many programs [...] provider. Document Revised: 02/18/2021 Document Reviewed: 02/18/2021 [employer] Patient Education 2022 Neurologix. Follow Up Care 08/23/2022 08:23:28 With:MAMTA LEE FAAFP, BEATRIZ [place], PED Address[facility] [place] [address]- When:Within 1 Month(s) [facility] 06-16-2023 NoteHNO ID: [id number] Author: RT Katty(R) Service: ? Author Type: [...] BY: RT Katty(R) January 25, 2023 8:35 [facility]05-08-2023 Miscellaneous Notes* Telephone Encounter - Juma [...] after the test results. [facility] Hospital Discharge instructions Patient Education 12/10/2022 10:35:03 Edema, Ulri-lo-Llps Edema Edema is when you have too [...] Follow these instructions at home: Medicines Take sxpd-ghb-gitiokh and prescription medicines only as told by [...] provider. Document Revised: 04/02/2022 Document Reviewed: 04/02/2022 [employer] Patient Education 2022 Neurologix. Follow Up Care 11/26/2022 09:27:23 With:MAMTA LEE FAAFP, [place], BEATRIZ, PED Address: [address] [place], [place] [address] When:Within 2 Month(s) [facility] 04-26-2023 NoteHNO ID: [id number] Author: RT Indu(R) Service: ? Author Type: [...] BY: RT Indu(R) December 05, 2022 1:51 [facility]04-26-2023 NoteHNO ID: [id number] Author: Juma Monk MD Service: ? Author Type: Physician Type: Progress Notes Filed: 12/05/2022 1:29 PM Note Text: Rheumatology Outpatient Clinic Date of Service: 12/05/2022 Patient: Jas Gonzalez Medical Record: [id number] Primary Care Physician: No primary care provider [...] 81 mg chewable tablet (more content not included)...[facility]04-26-2023 History of Present illness Narrative* Juma Monk MD - 12/05/2022 1:00 PM EDT Images from the original note were not included. Rheumatology Outpatient Clinic Date of Service: 12/05/2022 Patient: Jas Gonzalez Medical Record: [id number] Primary Care Physician: No primary care provider [...] Full ROM in flexion and extension. 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 No swelling or synovitis along the [...] which included preparing to see the patient, xakk-ap-ancs patient care, completing clinical documentation, obtaining and/or reviewing separately obtained history, performing a medically appropriate examination, and counseling and educating the patient/family/caregiver. Juma Monk MD, [facility] Rheumatology documented in this encounterC[facility]04-[facility]-2023 Miscellaneous Notes* Telephone Encounter - Angie Lara MA - 12/04/2022 12:44 PM EDT Received outside records for patient. Placed in scanned documents. Angie Lara MA documented in this encounterC[facility] Hospital Discharge instructions Patient Education 12/02/2022 15:14:40 [...] Follow these instructions at home: Medicines Take cdoq-pwt-qcmtgsk and prescription medicines only as told by [...] such as antibiotic medicines or antihistamines. Take zefo-kvi-ngcedmh and prescription medicines only as told by [...] provider. Document Revised: 05/10/2022 Document Reviewed: 05/10/2022 [employer] Patient Education 2022 [employer] 12/02/2022 15:14:40 Gastrointestinal Bleeding Gastrointestinal Bleeding Gastrointestinal [...] home. Follow these instructions at home: Take xcfg-oye-hoottqq and prescription medicines only as told by [...] on the cause of the bleeding. Take rmhz-ayz-wcbrreu and prescription medicines only as told by [...] provider. Document Revised: 03/02/2022 Document Reviewed: 03/02/2022 [employer] Patient Education 2022 Neurologix. Follow Up Care 12/02/2022 12:04:07 With:Joycelyn CHERRY Address: [address] [place] [address] Business (1) When:12/05/2022 15:14:25 Comments:Follow-up for 2 episodes of bright red blood per rectum With:Mt GOODEN Address: [address] [place] [address]- Business (1) When:12/05/2022 15:14:09 Comments:Follow-up for evaluation [...] ifyou develop any new or worsening symptoms. [facility]04-23-2023 Evaluation + Plan noteExtracted from: Title:ED Note Author:Tabby LOPEZ, Severo Reyna e:12/02/22 Blood per rectum (K62.5: Hem orrhage of anus and rectum) Cellulitis (L03.90: Cellulitis, unspecified) Wound of buttock (S31.809A: Unspecified open wound of unspecified buttock, initial encounter) Orders: cephalexin, 500 mg = 1 cap(s), Oral, q8hr, # 30 cap(s), Refills(s) 0, Pharmacy: [facility]/pharmacy #[id number], 182, cm, 12/02/22 12:12:00 EDT, Height/Length Dosing, 150, kg, 12/02/22 12:12:00 EDT, Weight Dosing ABO/Rh ABO/Rh History Check Antibody Screen Automated Diff Basic Metabolic Panel Blood Bank ID# CBC w/ Auto Diff ECG 12 Lead Adult eGFR Hepatic Function Panel PT & PTT Stool Occult Blood Future Appointments Appointment Date:12/10/2022 10:00:00 AM Scheduled Provider:Mt GOODEN DO, FAAFP Location:[facility] Appointment Type: Open Appointment Date:02/18/2023 08:00:00 AM Scheduled Provider:Mt GOODEN DO, FAAFP Location:[facility] Appointment Type: Open Appointment Date:08/26/2023 11:00:00 AM Scheduled Provider: Location:[facility] Appointment Type:FM Medicare Wellness Subsequent Future [...] Lipid Panel 02/20/22 * Lipid Panel 09/10/22 [facility]04-20-2023 Evaluation + Plan noteExtracted from: [...] 10:00:00 AM Scheduled Provider:Mt GOODEN DO, FAAFP Location:[facility] Appointment Type: Open Appointment Date:02/18/2023 08:00:00 AM Scheduled Provider:Mt GOODEN DO, FAAFP Location:[facility] Appointment Type: Open Appointment Date:08/26/2023 11:00:00 AM Scheduled Provider: Location:[facility] Appointment Type:FM Medicare Wellness Subsequent Future [...] Lipid Panel 02/20/22 * Lipid Panel 09/10/22 [facility]04-05-2023 NoteHNO ID: [id number] Author: Juma Monk MD Service: ? Author Type: Physician Type: Progress Notes Filed: 11/16/2022 9:45 AM Note Text: Rheumatology Outpatient Clinic Date of Service: 11/14/2022 Patient: Jas Gonzalez Medical Record: [id number] Primary Care Physician: No primary care provider [...] 54 U/L 33 ALKAL (more content not included)...[facility] History of Present illness Narrative* Juma Monk MD - 11/14/2022 1:30 PM EDT Images from the original note were not included. Rheumatology Outpatient Clinic Date of Service: 11/14/2022 Patient: Jas Gonzalez Medical Record: [id number] Primary Care Physician: No primary care provider [...] Full ROM in flexion and extension. 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 No swelling or synovitis along the [...] which included preparing to see the patient, lfuu-yf-roiv patient care, completing clinical documentation, obtaining and/or reviewing separately obtained history, performing a medically appropriate examination, and counseling and educating the patient/family/caregiver. Juma Monk MD, RhMSUS Rheumatology documented in [facility] encounterC[facility] Hospital Discharge instructions Patient Education 11/08/2022 10:50:05 [...] plan? Your health care provider or certified tower climber can help you make a plan for [...] stress. Your health care provider or certified tower climber can help you make a plan for [...] 10/18/2004 Document Revised: 02/20/2018 Document Reviewed: 01/07/2017 [employer] Patient Education 2020 [employer]. Follow Up Care 10/19/2022 13:04:21 With:Mt GOODEN DO, FAAFP, FAM, PED Address: [id number], [place] [address]- When:Within 3 Month(s) [facility] 03-15-2023 Note [id number]:127[facility] 09-10-2022 Hospital Discharge instructions Follow Up Care 09/10/2022 07:55:41 With:Thao Duncan DO, FAM, PED Address: [address] [place] [address] When:1 month only if needed Comments:40 mins [facility] 01-17-2023 Hospital Discharge [...] you work with a diet and nutrition therapist (dietitian) tomake a meal plan that is [...] care provider. Work with a counselor or conservation educator to identify strategies to manage stress and any emotional and social challenges. Questions to ask a health care provider Do I need to meet with a conservation educator? Do I need to meet with a dietitian? What number can I call if I have questions? When are the best times to check my blood glucose? Where to find more information: [place] Diabetes Association: diabetes.org Academy of Nutrition and Dietetics: www.eatright.org National [place] of Diabetes and Digestive and Kidney Diseases (NIH): www.niddk.nih.gov Summary A healthy meal plan will help you control your blood glucose and maintain a healthy lifestyle. Working with a diet and nutrition therapist (dietitian) can help you make a meal [...] 04/25/2006 Document Revised: 07/11/2018 Document Reviewed: 09/02/2017 [employer] Patient Education 2020 [employer]rologix. 08/28/2022 13:59:46 Exercising to Lose Weight Exercising [...] health care provider or diet and nutrition therapist (dietitian). This may include: ?Eating fewer calories. [...] 08/31/2011 Document Revised: 08/11/2018 Document Reviewed: 08/11/2018 [employer] Patient Education 2020 [employer]ix. 08/28/2022 13:59:43 BMI for Adults BMI for [...] height. This can be done either in [place]itian ([place] or metric measurements. Note that charts are available to help you find your BMI quickly and easily without having to do these calculations yourself. To calculate your BMI in Mauritian ([place] measurements, your health care provider will: [...] medical problems. BMI can be measured using Mauritian measurements or metric measurements. To interpret your [...] 04/09/2005 Document Revised: 07/11/2018 Document Reviewed: 06/11/2018 [employer] Patient Education 2019 Neurologix. [facility] 01-12-2023 Hospital Discharge [...] drinks. ?Tomatoes and foods made with tomatoes. ?Baring or spicy foods. ?Chocolate and peppermint. Do not drink alcohol. General instructions Take pyhu-mwv-svuwdnx and prescription medicines only as told by [...] 10/18/2004 Document Revised: 11/24/2018 Document Reviewed: 11/24/2018 [employer] Patient Education 2020 [employer] 08/23/2022 08:15:04 Budget-Friendly Healthy Eating Budget-Friendly [...] frozen fruits, and frozen vegetables. Avoid buying muovt-sm-lvl foods, such as pre-cut fruits and vegetables [...] 04/01/2015 Document Revised: 07/30/2018 Document Reviewed: 07/30/2018 [employer] Patient Education 2020 [employer]ix. Follow Up Care 02/20/2022 08:09:19 With:MAMTA LEE FAAFP, [place], BEATRIZ, PED Address: [address] [place] [address] Zoya, [place] [address]- When:Within 6 Month(s) [facility] 12-21-2022 Hospital Discharge instructions Patient Education 08/01/2022 18:07:47 Heat Therapy, Bxog-vi-Xnuk Heat Therapy Heat therapy can help ease [...] 10/20/2012 Document Revised: 09/21/2019 Document Reviewed: 08/09/2018 [employer] Patient Education 2020 [employer]ix. Follow Up Care 07/04/2022 17:02:06 With:Thao Duncan DO, FAM, PED Address: [address] [place] [address] [place] [address] When:1 month only if needed Comments:40 mins [facility] 10-28-2022 NoteQ3 Patient [...] changes classified as Mccarty's stage C3-M4 per [place] criteria. These changes involved the mucosa at the upper extent of the gastric folds (41 cm from the incisors) extending to the Z-line (37 cm from the incisors). Monument-colored mucosa was present. 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 Biopsied. - 4 cm hiatal hernia. [...] the patient. Procedure Code(s): --- Professional --- 72994 Diagnosis Code(s): --- Professional --- K22.70 K44.9 K29.00 K31.89 CPT copyright 2020 [employer]. All rights reserved. Attending Participation: I personally performed the entire procedure. Scope In: 12:44:02 PM Scope Out: 12:54:52 PM MD Katrina Whaley MD 06/08/2022 12:57:27 PM This report has been signed electronically by Katrina Urena MD Number of Addenda: 0 Note Initiated On: 06/08/2022 12:33 [facility]10-28-2022 Nurse Note* Leonor Osorio, MICHELLE - 06/08/2022 1:39 PM EDT AMBULATORY PATIENT [...] RN In Department: GASTROENTEROLOGY documented in this encounterC[facility]09-15-2022 Miscellaneous Notes* Telephone Encounter - Marguerite Potts RN - 04/26/2022 3:44 PM EDT Attempted to reach the patient at the contact number that they provided [phone] (home) . 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 client representative they must have a responsible adult [...] Number to call with questions or concerns [phone] Number to call to cancel their procedure [phone] Marguerite Potts RN documented in this encounterC[facility]08-29-2022 NoteHNO ID: [id number] Author: Katrina Urena MD Service: ? Author [...] Mellitus Dietary Counseling GERD with hiatal hernia penitentiary current use of oral hypoglycemic drug Lumbar [...] Findings: The affected area was not inflamed. L[place]el[place] classification C 40, M 35. Biopsy collected. [...] Past Histories independently gathered by the clinical account support associate and the remaining scribed note accurately describes my personal service to the patient. Katrina Urena M.D. Office:[phone] Appointments [phone] Fax [phone] [facility]08-29-2022 History of Present illness Narrative* Katrina Urena [...] Mellitus Dietary Counseling GERD with hiatal hernia penitentiary current use of oral hypoglycemic drug Lumbar [...] Findings: The affected area was not inflamed. Lobelville classification C 40, M 35. Biopsy collected. [...] Past Histories independently gathered by the clinical account support associate and the remaining scribed note accurately describes my personal service to the patient. Katrina Urena M.D. Office:[phone] Appointments [phone] Fax [phone] documented in this encounterC[facility]07-12-2022 Hospital Discharge instructions Patient Education 02/20/2022 08:08:00 [...] appointment to see a diet and nutrition therapist (registered dietitian) to help you create a healthy eating plan. General instructions Check your blood glucose levels as told by your health care provider. Take hffl-tdp-tmlckne and prescription medicines only as told by [...] 09/17/2006 Document Revised: 07/11/2018 Document Reviewed: 08/31/2016 [employer] Patient Education 2020 Neurologix. 02/20/2022 08:07:58 Type 2 Diabetes Mellitus, Self Care, Adult, Ehjy-je-Exjf Type 2 Diabetes Mellitus, Self Care, Adult [...] oil, and canola oil. Meet with a sales agent food vending service (dietitian). He or she can help you [...] for cuts, bruises, redness, blisters, or sores. [place] your teeth and gums two times a day. Floss one or more times a day. Go to the dentist one or more times every 6 months. Stay at a healthy weight. General instructions Take froz-ukl-talygxo and prescription medicines only as told by your doctor. Share your diabetes care plan with: ?Your work or school. ?People you live with. Carry a card or wear jewelry that says you have diabetes. Keep all follow-up visits as told by your doctor. This is important. Questions to ask your doctor Do I need to meet with a conservation educator? Where can I find a support group for people with diabetes? Where to find more information To learn more about diabetes, visit: [place] Diabetes Association: www.diabetes.org [place] Association of Diabetes Educators: www.diabeteseducator.org Summary When [...] 11/19/2016 Document Revised: 01/19/2019 Document Reviewed: 08/31/2016 [employer] Patient Education 2020 Neurologix. 02/20/2022 08:07:54 Type 2 Diabetes Mellitus, Self [...] treat it right away. Always have a 12-ldsuobmje-tozfhf carbohydrate snack with you to treat low [...] appointment to see a diet and nutrition therapist (registered dietitian) to help you create an [...] your health care provider once every year. [place] your teeth and gums two times a day, and floss one or more times a day. Visit your dentist one or more times every 6 months. Maintain a healthy weight. General instructions Take dtnd-pin-lctgkin and prescription medicines only as told by your health care provider. Share your diabetes management plan with people in your workplace, school, and household. Carry a medical alert card or wear medical alert jewelry. Keep all follow-up visits as told by your health care provider. This is important. Questions to ask your health care provider Do I need to meet with a conservation educator? Where can I find a support group for people with diabetes? Where to find more information For more information about diabetes, visit: [place] Diabetes Association (ADA): www.diabetes.org [place] Association of Diabetes Educators (AADE): www.diabeteseducator.org Summary [...] 11/19/2016 Document Revised: 01/19/2019 Document Reviewed: 08/31/2016 [employer] Patient Education 2020 Neurologix. Follow Up Care 08/22/2021 10:02:38 With:Mt GOODEN DO, FAAFP, FAM, PED Address: [place] [address]- When:Within 6 Month(s) [facility] Evaluation + Plan note Future Appointments Appointment Date:02/20/2022 07:40:00 AM Scheduled Provider:Mt GOODEN DO, FAAFP Location:[facility] Appointment Type: Open Appointment Date:09/13/2022 11:00:00 AM Scheduled Provider: Location:[facility] Appointment Type: Medicare Wellness Subsequent Future Scheduled Tests Laboratory* HgbA1c 02/20/21 * HgbA1c 05/23/21 * HgbA1c 08/23/21 * HgbA1c 11/21/21 * HgbA1c 12/13/20 * HgbA1c 01/21/21 * HgbA1c 04/23/21 * HgbA1c 07/23/21 [facility] Future Appointments Appointment Date:02/22/2022 09:40:00 AM Scheduled Provider:Gonzales ROBBINS MD Location:[facility] Appointment Type:[facility] 15 Appointment Date:08/23/2022 07:40:00 AM Scheduled Provider:Mt GOODEN DO, FAAFP Location:[facility] Appointment Type: Open Appointment Date:09/13/2022 11:00:00 AM Scheduled Provider: Location:[facility] Appointment Type: Medicare Wellness Subsequent Future [...] Panel 02/20/22 * Lipid Panel 02/20/22 [facility] Evaluation + Plan note Future Appointments Appointment Date:03/15/2022 09:00:00 AM Scheduled Provider: Location:[facility] Appointment Type:Surgery FT Appointment Date:08/23/2022 07:40:00 AM Scheduled Provider:Mt GOODEN DO, FAAFP Location:[facility] Appointment Type: Open Appointment Date:09/13/2022 11:00:00 AM Scheduled Provider: Location:[facility] Appointment Type: Medicare Wellness Subsequent Future [...] Panel 02/20/22 * Lipid Panel 02/20/22 [facility] [place] Evaluation + Plan note Future Appointments Appointment Date:07/04/2022 03:40:00 PM Scheduled Provider:Thao Duncan DO Location:[facility] Appointment Type:FM Procedure Appointment Date:08/23/2022 07:40:00 AM Scheduled Provider:Mt GOODEN DO, FAAFP Location:[facility] Appointment Type:FM Open Appointment Date:09/13/2022 11:00:00 AM Scheduled Provider: Location:[facility] Appointment Type: Medicare Wellness Subsequent Future Scheduled Tests Laboratory* HgbA1c 08/23/21 * HgbA1c 11/21/21 * HgbA1c 02/20/22 * HgbA1c 05/23/22 * HgbA1c 08/23/22 * HgbA1c 11/21/22 * HgbA1c 07/23/21 * Microalbumin Level Urine 02/20/22 * PSA Screen, Total 02/20/22 * Basic Metabolic Panel 02/20/22 * CBC w/ Auto Diff 02/20/22 * Hepatic Function Panel 02/20/22 * Lipid Panel 02/20/22 [facility] Evaluation + Plan note Future Appointments Appointment Date:08/23/2022 07:40:00 AM Scheduled Provider:Mt GOODEN DO, FAAFP Location:[facility] Appointment Type: Open Appointment Date:09/13/2022 11:00:00 AM Scheduled Provider: Location:[facility] Appointment Type:FM Medicare Wellness Subsequent Future Scheduled Tests Laboratory* HgbA1c 08/23/21 * HgbA1c 11/21/21 * HgbA1c 02/20/22 * HgbA1c 05/23/22 * HgbA1c 08/23/22 * HgbA1c 11/21/22 * HgbA1c 07/23/21 * Microalbumin Level Urine 02/20/22 * PSA Screen, Total 02/20/22 * Basic Metabolic Panel 02/20/22 * CBC w/ Auto Diff 02/20/22 * Hepatic Function Panel 02/20/22 * Lipid Panel 02/20/22 [facility] evaluation + Plan note Future Appointments Appointment Date:08/28/2022 11:00:00 AM Scheduled Provider: Location:[facility] Appointment Type: Medicare Wellness Subsequent Appointment Date:09/04/2022 03:00:00 PM Scheduled Provider:Thao Duncan DO Location:[facility] Appointment Type: Procedure Appointment Date:02/18/2023 08:00:00 AM Scheduled Provider:Mt GOODEN DO, FAAFP Location:[facility] Appointment Type: Open Future Scheduled Tests [...] Panel 02/20/22 * Lipid Panel 08/23/22 [facility] Evaluation + Plan note Future Appointments Appointment Date:09/04/2022 03:00:00 PM Scheduled Provider:Thao Duncan DO Location:[facility] Appointment Type: Procedure Appointment Date:02/18/2023 08:00:00 AM Scheduled Provider:Mt GOODEN DO, FAAFP Location:[facility] Appointment Type: Open Appointment Date:08/26/2023 11:00:00 AM Scheduled Provider: Location:[facility] Appointment Type: Medicare Wellness Subsequent Future [...] Panel 02/20/22 * Lipid Panel 08/23/22 [facility] Evaluation + Plan note Future Appointments Appointment Date:09/14/2022 10:40:00 AM Scheduled Provider:Thao Duncan DO Location:[facility] Appointment Type:FM Procedure Appointment Date:09/27/2022 09:15:00 AM Scheduled Provider:Pawan Laureano MD Location:[facility] Appointment Type:Pain Management - Follow Up (FT) Appointment Date:02/18/2023 08:00:00 AM Scheduled Provider:Mt GOODEN DO, FAAFP Location:[facility] Appointment Type:FM Open Appointment Date:08/26/2023 11:00:00 AM Scheduled Provider: Location:[facility] Appointment Type:FM Medicare Wellness Subsequent Future [...] Lipid Panel 02/20/22 * Lipid Panel 09/10/22 [facility] Future App[facility]ments Appointment Date:09/18/2022 07:30:00 AM Scheduled Provider: [facility] Type:US Aorta Procedures (FT) Appointment Date:09/27/2022 09:15:00 AM Scheduled Provider:Pawan Laureano MD Location:[facility] Appointment Type:Pain Management - Follow Up (FT) Appointment Date:02/18/2023 08:00:00 AM Scheduled Provider:Mt GOODEN DO, FAAFP Location:[facility] Appointment Type:FM Open Appointment Date:08/26/2023 11:00:00 AM Scheduled Provider: Location:[facility] Appointment Type: Medicare Wellness Subsequent Future [...] Panel 09/10/22 Radiology* US Aorta 09/18/22 [facility] Evaluation + Plan note Future Appointments Appointment Date:09/27/2022 09:15:00 AM Scheduled Provider:Pawan Laureano MD Location:[facility] Appointment Type:Pain Management - Follow Up (FT) Appointment Date:02/18/2023 08:00:00 AM Scheduled Provider:Mt GOODEN DO, FAAFP Location:[facility] Appointment Type: Open Appointment Date:08/26/2023 11:00:00 AM Scheduled Provider: Location:[facility] Appointment Type:FM Medicare Wellness Subsequent Future [...] Lipid Panel 02/20/22 * Lipid Panel 09/10/22 [facility] Future Appointments Appointment Date:11/29/2022 09:45:00 AM Scheduled Provider:Pawan Laureano MD Location:[facility] Appointment Type:Pain Management - Follow Up (FT) Appointment Date:02/18/2023 08:00:00 AM Scheduled Provider:Mt GOODEN DO, FAAFP Location:[facility] Appointment Type:FM Open Appointment Date:08/26/2023 11:00:00 AM Scheduled Provider: Location:[facility] Appointment Type: Medicare Wellness Subsequent Future [...] Lipid Panel 02/20/22 * Lipid Panel 09/10/22 [facility] Future Appointments Appointment Date:11/08/2022 10:00:00 AM Scheduled Provider:Mt GOODEN DO, FAAFP Location:[facility] Appointment Type: Open Appointment Date:11/29/2022 09:45:00 AM Scheduled Provider:Pawan Laureano MD Location:[facility] Appointment Type:Pain Management - Follow Up (FT) Appointment Date:02/18/2023 08:00:00 AM Scheduled Provider:Mt GOODEN DO, FAAFP Location:[facility] Appointment Type: Open Appointment Date:08/26/2023 11:00:00 AM Scheduled Provider: Location:[facility] Appointment Type: Medicare Wellness Subsequent Future [...] Lipid Panel 02/20/22 * Lipid Panel 09/10/22 [facility] Future Appointments Appointment Date:11/29/2022 09:45:00 AM Scheduled Provider:Pawan Laureano MD Location:[facility] Appointment Type:Pain Management - Follow Up (FT) Appointment Date:02/18/2023 08:00:00 AM Scheduled Provider:Mt GOODEN DO, FAAFP Location:[facility] Appointment Type: Open Appointment Date:08/26/2023 11:00:00 AM Scheduled Provider: Location:[facility] Appointment Type:FM Medicare Wellness Subsequent Future [...] Panel 09/10/22 Radiology* US Aorta 11/08/22 [facility] Evaluation + Plan note Future Appointments Appointment Date:11/29/2022 09:45:00 AM Scheduled Provider:Pawan Laureano MD Location:[facility] Appointment Type:Pain Management - Follow Up (FT) Appointment Date:02/18/2023 08:00:00 AM Scheduled Provider:Mt GOODEN DO, FAAFP Location:[facility] Appointment Type: Open Appointment Date:08/26/2023 11:00:00 AM Scheduled Provider: Location:[facility] Appointment Type: Medicare Wellness Subsequent Future [...] Lipid Panel 02/20/22 * Lipid Panel 09/10/22 [facility] Future Appointments Appointment Date:01/23/2023 09:15:00 AM Scheduled Provider:Joycelyn CHERRY MD Location:[facility] Appointment Type:[facility] New Patient Appointment Date:02/18/2023 08:00:00 AM Scheduled Provider:Mt GOODEN DO, FAAFP Location:[facility] Appointment Type: Open Appointment Date:08/26/2023 11:00:00 AM Scheduled Provider: Location:[facility] Appointment Type:FM Medicare Wellness Subsequent Future [...] Panel 02/20/22 * Lipid Panel 09/10/22 [facility] Evaluation + Plan note Future Appointments Appointment Date:02/18/2023 08:00:00 AM Scheduled Provider:Mt GOODEN DO, FAAFP Location:[facility] Appointment Type:FM Open Appointment Date:02/20/2023 02:25:00 PM Scheduled Provider: Location:[facility] Appointment Type:Surgery FT Appointment Date:08/26/2023 11:00:00 AM Scheduled Provider[facility] Type:FM Medicare Wellness Subsequent Future [...] Lipid Panel 02/20/22 * Lipid Panel 09/10/22 [facility] Future Appointments Appointment Date:08/26/2023 11:00:00 AM Scheduled Provider: Location:[facility] Appointment Type: Medicare Wellness Subsequent Future [...] Panel 02/20/22 * Lipid Panel 09/10/22 [facility] Evaluation + Plan note Future Appointments Appointment Date:03/29/2023 09:45:00 AM Scheduled Provider: [facility] Type:SOFTWARE PROGRAM MANAGER Sleep Study Clinic Follow Up (FT) Appointment Date:04/09/2023 10:00:00 AM Scheduled Provider: [facility] Type:ONC Office Visit 30 (FT) Appointment Date:06/03/2023 01:20:00 PM Scheduled Provider:Mt GOODEN DO, FAAFP Location:[facility] Appointment Type: Open Appointment Date:08/26/2023 11:00:00 AM Scheduled Provider: Location:[facility] Appointment Type:FM Medicare Wellness Subsequent Diagnostic [...] Function Panel 09/10/22 * Lipid Panel 09/10/22 [facility] Future Appointments Appointment Date:04/09/2023 10:00:00 AM Scheduled Provider: [facility] App[facility] Type:ONC Office Visit 30 (FT) Appointment Date:06/03/2023 01:20:00 PM Scheduled Provider:Mt GOODEN DO, FAAFP Location:[facility] Appointment Type: Open Appointment Date:08/26/2023 11:00:00 AM Scheduled Provider: Location:[facility] Appointment Type: Medicare Wellness Subsequent Future Scheduled Tests Laboratory* HgbA1c 11/08/22 * HgbA1c 05/23/22 * HgbA1c 08/23/22 * HgbA1c 11/21/22 * HgbA1c 09/10/22 * HgbA1c 11/21/22 * HgbA1c 05/23/23 * CBC w/ Auto Diff 04/09/23 * Comprehensive Metabolic Panel 04/09/23 * Hepatic Function Panel 11/08/22 * Hepatic Function Panel 09/10/22 * Lipid Panel 09/10/22 [facility] Future Appointments Appointment Date:04/09/2023 10:00:00 AM Scheduled Provider: [facility] Type:ONC Office Visit 30 (FT) Appointment Date:06/03/2023 01:20:00 PM Scheduled Provider:Mt GODOEN DO, FAAFP Location:[facility] Appointment Type: Open Appointment Date:08/26/2023 11:00:00 AM Scheduled Provider: Location:[facility] Appointment Type: Medicare Wellness Subsequent Future Scheduled Tests Laboratory* HgbA1c 11/08/22 * HgbA1c 05/23/22 * HgbA1c 08/23/22 * HgbA1c 11/21/22 * HgbA1c 09/10/22 * HgbA1c 11/21/22 * HgbA1c 05/23/23 * Hepatic Function Panel 11/08/22 * Hepatic Function Panel 09/10/22 * Lipid Panel 09/10/22 [facility] Future Appointments Appointment Date:06/03/2023 01:20:00 PM Scheduled Provider:Mt GOODEN DO, FAAFP Location:[facility] Appointment Type: Open Appointment Date:07/09/2023 10:00:00 AM Scheduled Provider: Location:.ONCOLOGY Appointment Type:ONC Office Visit 30 (FT) Appointment Date:08/26/2023 11:00:00 AM Scheduled Provider: Location:[facility] Appointment Type: Medicare Wellness Subsequent Future [...] Function Panel 09/10/22 * Lipid Panel 09/10/22 [facility] Future Appointments Appointment Date:06/03/2023 01:20:00 PM Scheduled Provider:Mt GOODEN DO, FAAFP Location:[facility] Appointment Type: Open Appointment Date:07/09/2023 10:00:00 AM Scheduled Provider: [facility] Type:ONC Office Visit 30 () Appointment Date:08/26/2023 11:00:00 AM Scheduled Provider: Location:[facility] Appointment Type: Medicare Wellness Subsequent Future Scheduled Tests Laboratory* HgbA1c 11/08/22 * HgbA1c 05/23/22 * HgbA1c 08/23/22 * HgbA1c 11/21/22 * HgbA1c 09/10/22 * HgbA1c 11/21/22 * HgbA1c 05/23/23 * CBC w/ Auto Diff 07/10/23 * Comprehensive Metabolic Panel 07/10/23 * D-Dimer 07/11/23 * Hepatic Function Panel 11/08/22 * Hepatic Function Panel 09/10/22 * Lipid Panel 09/10/22 [facility] Future Appointments Appointment Date:06/11/2023 09:00:00 AM Scheduled Provider: [facility] Appointment Type:US Duplex Procedures (FT) Appointment Date:07/09/2023 10:00:00 AM Scheduled Provider: [facility] App[facility] Type:ONC Office Visit 30 (FT) Appointment Date:08/26/2023 11:00:00 AM Scheduled Provider: Location:[facility] Appointment Type: Medicare Wellness Subsequent Appointment Date:09/05/2023 09:40:00 AM Scheduled Provider:Mt GOODEN DO, FAAFP Location:[facility] Appointment Type: Open Future Scheduled Tests Laboratory* HgbA1c 11/08/22 * HgbA1c 05/23/22 * HgbA1c 08/23/22 * HgbA1c 11/21/22 * HgbA1c 09/10/22 * HgbA1c 11/21/22 * CBC w/ Auto Diff 07/10/23 * Comprehensive Metabolic Panel 07/10/23 * D-Dimer 07/11/23 * Hepatic Function Panel 09/10/22 Radiology* US LE Venous Duplex Insufficiency Bilat 06/11/23 * US LE Venous Duplex Bilateral 06/11/23 [facility] Evaluation + Plan note Future Appointments Appointment Date:06/26/2023 09:45:00 AM Scheduled Provider:Matty Murillo MD [facility] App[facility]ment Type:Pulmonary New Patient (FT) Appointment Date:07/09/2023 10:00:00 AM Scheduled Provider: [facility] App[facility] Type:ONC Office Visit 30 (FT) Appointment Date:08/26/2023 11:00:00 AM Scheduled Provider: Location:[facility] Appointment Type: Medicare Wellness Subsequent Appointment Date:09/05/2023 09:40:00 AM Scheduled Provider:Mt GOODEN DO, FAAFP Location:[facility] Appointment Type: Open Future Scheduled Tests Laboratory* HgbA1c 11/08/22 * HgbA1c 05/23/22 * HgbA1c 08/23/22 * HgbA1c 11/21/22 * HgbA1c 09/10/22 * HgbA1c 11/21/22 * CBC w/ Auto Diff 07/10/23 * Comprehensive Metabolic Panel 07/10/23 * D-Dimer 07/11/23 * Hepatic Function Panel 09/10/22 [facility] Future Appointments Appointment Date:07/09/2023 10:00:00 AM Scheduled Provider: Location:.ONCOLOGY Appointment Type:ONC Office Visit 30 (FT) Appointment Date:07/10/2023 09:30:00 AM Scheduled Provider: [facility] Appoint[facility] Type:PUL Pulmonary Function Test (FT) Appointment Date:07/10/2023 10:30:00 AM Scheduled Provider: [facility] Appointment Type:PUL Six Minute Walk Test (FT) Appointment Date:07/17/2023 09:45:00 AM Scheduled Provider:Matty Murillo MD [facility] App[facility]ment Type:Pulmonary Follow Up (FT) Appointment Date:08/26/2023 11:00:00 AM Scheduled Provider: Location:[facility] Appointment Type: Medicare Wellness Subsequent Appointment Date:09/05/2023 09:40:00 AM Scheduled Provider:Mt GOODEN DO, FAAFP Location:[facility] Appointment Type: Open Future Scheduled Tests Laboratory* HgbA1c 11/08/22 * HgbA1c 08/23/22 * HgbA1c 11/21/22 * HgbA1c 09/10/22 * HgbA1c 11/21/22 * CBC w/ Auto Diff 07/10/23 * Comprehensive Metabolic Panel 07/10/23 * D-Dimer 07/11/23 * Hepatic Function Panel 09/10/22 [facility] Future Appointments Appointment Date:07/10/2023 09:30:00 AM Scheduled Provider: [facility] App[facility] Type:PUL Pulmonary Function Test (FT) Appointment Date:07/10/2023 10:30:00 AM Scheduled Provider: [facility] Appointment Type:PUL Six Minute Walk Test (FT) Appointment Date:07/17/2023 09:45:00 AM Scheduled Provider:Matty Murillo MD [facility] Appointment Type:Pulmonary Follow Up (FT) Appointment Date:08/26/2023 11:00:00 AM Scheduled Provider: Location:[facility] Appointment Type: Medicare Wellness Subsequent Appointment Date:09/05/2023 09:40:00 AM Scheduled Provider:Mt GOODEN DO, FAAFP Location:[facility] Appointment Type: Open Appointment Date:01/07/2024 10:00:00 AM Scheduled Provider: [facility] App[facility] Type:ONC Office Visit 30 (FT) Future Scheduled Tests Laboratory* HgbA1c 11/08/22 * HgbA1c 08/23/22 * HgbA1c 11/21/22 * HgbA1c 09/10/22 * HgbA1c 11/21/22 * CBC w/ Auto Diff 01/07/24 * Comprehensive Metabolic Panel 01/07/24 * D-Dimer 01/07/24 * Hepatic Function Panel 09/10/22 [facility] Future Appointments Appointment Date:08/26/2023 11:00:00 AM Scheduled Provider: Location:[facility] Appointment Type:FM Medicare Wellness Subsequent Appointment Date:09/05/2023 09:40:00 AM Scheduled Provider:Mt GOODEN DO, FAAFP Location:[facility] Appointment Type: Open Appointment Date:01/07/2024 10:00:00 AM Scheduled Provider: [facility] App[facility] Type:ONC Office Visit 30 (FT) Future Scheduled Tests Laboratory* HgbA1c 11/08/22 * HgbA1c 08/23/22 * HgbA1c 11/21/22 * HgbA1c 09/10/22 * HgbA1c 11/21/22 * CBC w/ Auto Diff 01/07/24 * Comprehensive Metabolic Panel 01/07/24 * D-Dimer 01/07/24 * Hepatic Function Panel 09/10/22 [facility] Future Appointments Appointment Date:09/05/2023 09:40:00 AM Scheduled Provider:Mt GOODEN DO, FAAFP Location:[facility] Appointment Type: Open Appointment Date:01/07/2024 10:00:00 AM Scheduled Provider: [facility] Appoint[facility] Type:ONC Office Visit 30 (FT) Appointment Date:08/31/2024 09:30:00 AM Scheduled Provider: Location:[facility] Appointment Type: Medicare Wellness Subsequent Future Scheduled Tests Laboratory* HgbA1c 11/08/22 * HgbA1c 08/23/22 * HgbA1c 11/21/22 * HgbA1c 09/10/22 * HgbA1c 11/21/22 * CBC w/ Auto Diff 01/07/24 * Comprehensive Metabolic Panel 01/07/24 * D-Dimer 01/07/24 * Hepatic Function Panel 09/10/22 [facility] Evaluation + Plan note Future Appointments Appointment Date:09/05/2023 09:40:00 AM Scheduled Provider:Mt GOODEN DO, FAAFP Location:[facility] Appointment Type: Open Appointment Date:01/07/2024 10:00:00 AM Scheduled Provider: [facility] Appoint[facility] Type:ONC Office Visit 30 (FT) Appointment Date:08/31/2024 09:30:00 AM Scheduled Provider: Location:[facility] Appointment Type: Medicare Wellness Subsequent Future Scheduled Tests Laboratory* HgbA1c 08/23/22 * HgbA1c 11/21/22 * HgbA1c 09/10/22 * HgbA1c 11/21/22 * CBC w/ Auto Diff 01/07/24 * Comprehensive Metabolic Panel 01/07/24 * D-Dimer 01/07/24 [facility] Future Appointments Appointment Date:12/10/2023 09:40:00 AM Scheduled Provider:Mt GOODEN DO, FAAFP Location:[facility] Appointment Type: Open Appointment Date:01/07/2024 10:00:00 AM Scheduled Provider:Azra Leon MD [facility] Appoint[facility] Type:ONC Office Visit 30 (FT) Appointment Date:08/31/2024 09:30:00 AM Scheduled Provider: Location:[facility] Appointment Type: Medicare Wellness Subsequent Future Scheduled Tests Laboratory* U Protein/Creat Ratio 09/05/23 * HgbA1c 11/21/22 * HgbA1c 09/05/23 * HgbA1c 11/21/22 * Microalbumin Level Urine 09/05/23 * PSA Screen, Total 09/05/23 * CBC w/ Auto Diff 01/07/24 * Comprehensive Metabolic Panel 01/07/24 * D-Dimer 01/07/24 Radiology* XR Hip 2-3 Views Right 09/05/23 * XR Shoulder Complete Left 09/05/23 [facility]* Diagnosis Mccarty's esophagus with dysplasia- Primary Mccarty's esophagus [facility] Diagnosis Mccarty's esophagus with dysplasia Mccarty's esophagus documented [facility]* Diagnosis Chronic right-sided low back pain with right-sided sciatica- Primary [facility]* Diagnosis Bilateral low back pain with sciatica, sciatica laterality unspecified, unspecified chronicity- Primary [facility]* Diagnosis Sacrococcygeal disorders, not elsewhere classified- Primary [facility]* Diagnosis Bilateral low back pain with sciatica, sciatica laterality unspecified, unspecified chronicity [facility] Narrative No data available for this section [facility] Discharge instructions No data available for this section [facility] No data available for this section [facility] Reason for referral (narrative)* Outpatient Procedure (Routine) - Authorized Specialty Diagnoses / Procedures Referred By Sourav arriaga Referred To Contact [facility] Diagnoses Mccarty's esophagus with dysplasia Procedures EGD DIAGNOSTIC ESOPHAGOGASTRODUODENOSC OPY TRANSORAL DIAGNOSTIC Katrina Urena MD [address] [place] [address] [place] [id number] Referral ID Status Reason Start Date Expiration Date Visits Requested Visits Authorized [id number] Authorized Auto-Generat ed Referral 04/09/2022 04/09/2023 1 1 [facility] for referral (narrative)* Outpatient Procedure (Routine) - Closed Specialty Diagnoses / Procedures Referred By Sourav arriaga Referred To Contact [facility] Diagnoses Mccarty's esophagus with dysplasia Procedures EGD DIAGNOSTIC ESOPHAGOGASTRODUODENOSC OPY TRANSORAL DIAGNOSTIC Katrina Urena MD [address] [facility] [place] [id number] [place] [address] Referral ID Status Reason Start Date Expiration Date V isits Requested Visits Authorized [id number] Closed Auto-Generate d Referral 04/09/2022 04/09/2023 1 1 [facility] for referral (narrative) Referred by: Thao Duncan DO [facility] Primary [facility] Reason for referral (narrative)* Diagnostic Procedure Only (Routine) - Closed Specialty Diagnoses / Procedures Referred By Sourav arriaga Referred To Contact XR IMAGING Diagnoses Bilateral low back pain with sciatica, sciatica laterality unspecified, unspecified chronicity Procedures XR SACROILIAC JOINTS 2V AP PELVIS/FERGUESON RADIOLOGIC EXAMINATION SACROILIAC JNTS <3 VIEWS Juma Monk MD [address] [place] [address] Xr Imaging Referral ID Status Reason Start Date Expiration Date V isits Requested Visits Authorized [id number] Closed Auto-Generate d Referral 12/05/2022 01/04/2024 1 1 [facility] for referral (narrative)* Diagnostic Procedure Only (Routine) - Closed Specialty Diagnoses / Procedures Referred By Sourav arriaga Referred To Contact XR IMAGING Diagnoses Bilateral low back pain with sciatica, sciatica laterality unspecified, unspecified chronicity Procedures XR SACROILIAC JOINTS 2V AP PELVIS/FERGUESON RADIOLOGIC EXAMINATION SACROILIAC JNTS <3 VIEWS Juma Monk MD [address] [place] [address] Xr Imaging Referral ID Status Reason Start Date Expiration Date V isits Requested Visits Authorized [id number] Closed Auto-Generate d Referral 12/05/2022 01/04/2024 1 1 [facility] for visit Narrative* Outpatient Procedure (Routine) - Closed Specialty Diagnoses / Procedures Referred By Sourav arriaga Referred To Contact [facility] Diagnoses Mccarty's esophagus with dysplasia Procedures EGD DIAGNOSTIC ESOPHAGOGASTRODUODENOSC OPY TRANSORAL DIAGNOSTIC Katrina Urena MD [address] [facility] [place] [address] [facility] [address] [place] [address] Referral ID Status Reason Start Date Expiration Date V isits Requested Visits Authorized [id number] Closed Auto-Generate d Referral 04/09/2022 04/09/2023 1 1 [facility]* Diagnostic Procedure Only (Routine) - Closed Specialty Diagnoses / Procedures Referred By Contac t Referred To Contact XR IMAGING Diagnoses Bilateral low back pain with sciatica, sciatica laterality unspecified, unspecified chronicity Procedures XR SACROILIAC JOINTS 2V AP PELVIS/FERGUESON RADIOLOGIC EXAMINATION SACROILIAC JNTS <3 VIEWS Juma Monk MD [address] [place] [address] Xr Imaging Referral ID Status Reason Start Date Expiration Date V isits Requested Visits Authorized [id number] Closed Auto-Generate d Referral 12/05/2022 01/04/2024 1 1 [facility] Reason for Referral Specialty Diagnoses / Procedures Referred By Sourav t Referred To Contact MR IMAGING Diagnoses Sacrococcygeal disorders, not elsewhere classified Procedures MRI SACRUM/COCCYX WO IVCON MRI PELVIS W/O CONTRAST MATERIAL Juma Monk MD [address] [place] [address] Mr Imaging Referral ID Status Reason Start Date Expiration Date Visits Requested Visits Authorized [id number] Pending Review Auto-Generat ed Referral 12/17/2022 01/16/2024 [...] Name: Mt GOODEN DO, FAAFP Address: Address: [address] [place] [address] [place] [address]- [employer] Relationship Specialty Start Date End Date Pcp, No PCP - General 02/24/22 09/11/22 [employer] Relationship Specialty Start Date End Date Pcp, No PCP - General 02/24/22 09/11/22 [employer] Relationship Specialty Start Date End Date Pcp, No PCP - General 02/24/22 09/11/22 [employer] Relationship Specialty Start Date End Date Mt Gooden, [address] [place] [address] PCP - General Family Medicine 11/14/22 Thao Duncan(Historical), DO Referring Primary Care 08/07/22 [employer] Relationship Specialty Start Date End Date Mt Gooden, [address] [place] [place] [address] PCP - General Family Medicine 11/14/22 Thao Duncan(Historical), DO Referring Primary Care 08/07/22 [employer]er Relationship Specialty Start Date End Date Mt Gooden DO [address] [place] [address] PCP - General Family Medicine 11/14/22 Thao Duncan(Historical), DO Referring Primary Care 08/07/22 [employer]er Relationship Specialty Start Date End Date Mt Gooden DO [address] [place] [address] PCP - General Family Medicine 11/14/22 Thao Duncan(Historical), DO Referring Primary Care 08/07/22 Source Comments (unrecognize d section and content) In the event this informatio n is protected by the Federal Confidentiality of Alcohol and Drug Abuse Patient Records regulations: The Federal rules restrict any use of the information to criminally investigate or prosecute any alcohol or drug abuse patient.[facility] the event this information is protected by the Federal Confidentiality of Alcohol and Drug Abuse Patient Records regulations: The Federal rules restrict any use of the information to criminally investigate or prosecute any alcohol or drug abuse patient.[facility] the event this information is protected by the Federal Confidentiality of Alcohol and Drug Abuse Patient Records regulations: The Federal rules restrict any use of the information to criminally investigate or prosecute any alcohol or drug abuse patient.[facility] the event this information is protected by the Federal Confidentiality of Alcohol and Drug Abuse Patient Records regulations: The Federal rules restrict any use of the information to criminally investigate or prosecute any alcohol or drug abuse patient.[facility] the event this information is protected by the Federal Confidentiality of Alcohol and Drug Abuse Patient Records regulations: The Federal rules restrict any use of the information to criminally investigate or prosecute any alcohol or drug abuse patient.[facility] the event this information is protected by the Federal Confidentiality of Alcohol and Drug Abuse Patient Records regulations: The Federal rules restrict any use of the information to criminally investigate or prosecute any alcohol or drug abuse patient.[facility] the event this information is protected by the Federal Confidentiality of Alcohol and Drug Abuse Patient Records regulations: The Federal rules restrict any use of the information to criminally investigate or prosecute any alcohol or drug abuse patient.[facility] the event this information is protected by the Federal Confidentiality of Alcohol and Drug Abuse Patient Records regulations: The Federal rules restrict any use of the information to criminally investigate or prosecute any alcohol or drug abuse patient.[facility] Reason for Visit (unrecogniz ed section and content) Reason Comments Appointment Confirmation Reason Comments Consult Dx oa. Reason Comments Received Outside Medical Records Reason Comments Follow Up Denies any concerns Reason Comments Results (unrecognized sect ion and content) No Status Records FoundNo Status Records FoundNo Status Records Found INFORMATION SOURCE (unrecogn ized section and content) DATE CREATED AUTHOR 01/29/2023 [facility] DATE CREATED AUTHOR AUTHOR'S ORGANIZ ATION 06/27/2023 [facility] DATE CREATED AUTHOR AUTHOR'S ORGANIZ ATION 09/23/2023 [facility] FOR RECORDS PERTAINING TO PATIENTS WHO ARE [...] BE BASED ON THE PRIMARY CLINICAL RECORDS. [employer] provides no warranty or guarantee of the accuracy or completeness of information in this document.
== END 2023-09-25 09:26 | disposition home or self-care (01) ==
LOC: VC 09:25
PROVIDERS: PCP Radiology Diagnostic Radiology; Visit Provider Radiology Diagnostic Radiology
DX: I80.02 Phlebitis and thrombophlebitis of superficial vessels of left lower extremity (principal)
CPT/HCPCS: 93971; G0463

== ENCOUNTER 2023-10-03 10:55 | Outpatient (OUT) | payer MEDICARE, OTHER, SELFPAY ==
--- NOTE | 2023-10-03 10:57 | VEIN_ITS ---
[address] [address] Patient Name: JOSE GONZALEZ MRN: [id number] date: 1950 Sex: M Assigned Patient Location: Current Patient Location: Accession/Order Number: [id number] Exam Date: 10/03/2023 11:00 Report Date: 10/03/2023 13:01 At the request of: JAMES ESPINOZA Procedure: VC INJ Foam Sclerosant WUS PHARMACY MESSENGER PROCEDURE: VC INJ Foam Sclerosant WUS PHARMACY MESSENGER HISTORY: Pain due to varicose veins of bilateral legs I83.813 Pre-operative Diagnosis: CEAP class C6 venous insufficiency with pain, tenderness, edema and incompetent branch saphenous vein(s), chronic venous insufficiency right leg secondary to venous incompetence Post-operative Diagnosis: CEAP class C6 venous insufficiency with pain, tenderness, edema and incompetent branch saphenous vein(s), chronic venous insufficiency right leg secondary to venous incompetence Procedure Performed: 1. Ultrasound-guided microfoam chemical ablation with Varithenaregistered 2. Intraoperative ultrasound guidance Physician: Calvin Tan M.D. Anesthesia: None Indications for Procedure: 73 year old male. Symptoms including lower extremity pain, swelling, dilated bulging veins for many years despite conservative medical therapy including medical compression stockings, exercise and analgesics. Prior procedures include endovenous laser ablation and microfoam chemical ablation. Multiple incompetent varicosities of the right leg. Duplex scan showed reflux and enlarged diameters up to 5 mm. The patient underwent informed consent including management options where the complications of infection, bleeding, pain, and skin injury were discussed. Particular attention was spent discussing thrombus extension and deep vein thrombosis as well as the possibility of pulmonary embolus and treatment with oral or injectable blood thinners. Procedure: The patient walked to the procedure room. All applicable staff donned appropriate apparel. A procedure timeout was performed to confirm correct patient, correct extremity, correct procedure, and correct room set-up including presence of all applicable supplies, devices, and drugs. A duplex ultrasound, performed by myself confirmed the location and incompetence of branch saphenous varicosities and their course was marked on the skin together with the dilated tributaries. The extent of treatment of the vein and the associated varicosities was determined through ultrasound mapping. The skin was prepped and then punctured with a butterfly needle and advanced under ultrasound guidance. The Varithenaregistered canister was activated and the canister was primed and purged as required in the instructions for use. Varithenaregistered was drawn into a sterile syringe. Varithenaregistered was slowly administered at 0.5-1.0 cc/second with close observation by ultrasound of its course in the vessels. Total volume utilized was: 9 mL (2 mL into a 4 mm varicosity distal medial lower leg; 7 mL into a 5 mm varicosity anterior mid odonnell). Following administration of Varithenaregistered the leg was elevated and the patient was asked to repeatedly dorsiflex the ankle to limit flow of Varithenaregistered into perforating veins. Once appropriate spasm had been confirmed in the treated veins, the vascular catheter was removed from the leg and light pressure was applied over the puncture site for hemostasis. The common femoral and deep superficial veins were then evaluated for flow and compressibility prior to dressing placement. The lower extremity was kept elevated at 45 degrees above the horizontal and cording material was applied over the saphenous segments and tributaries to allow for eccentric compression over the target vessels including the targeted saphenous vein(s). A multilayer dressing was applied consisting of foam pads, coban and thigh-high 20-30 mm Hg compression elastic support hose were placed on the patient. The leg was lowered only after compression had been applied and the patient was immediately ambulatory. The patient ambulated 10 minutes under supervision and was without apparent concerns at time of release. Post-care instructions include advising patient to keep post-treatment bandages in place and dry for 48 hours, avoid extended periods of inactivity, avoid heavy exercise for one week, wear compression stockings on the treated leg continuously for two weeks, to walk daily for 10 minutes over the next month. The patient was instructed to take an anti-inflammatory medicine as needed and to follow up for color duplex scan of the Saphenous veins, the treated branch saphenous varicosities, the adjacent deep veins, and additional treatment within 7 days. PERSONNEL: Zak Olivia RN Electronically authenticated by: CALVIN TAN Date: 10/03/2023 13:01
--- OUTSIDE RECORDS SUMMARY | 2023-10-03 11:04 | XMS_ITS | CCD ---
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 Name Role Phone [facility] GOODEN Primary Care Physician Pcp, No Primary Care Provider UnavailThao Jones DO(Historical) Unavailable Unavailable [facility] Gooden DO Primary Care Provider KATRINA URENA Referring Unavailable SKY HOWE Attending Unavailable KATRINA URENA Referring Unavailable KATRINA URENA Attending Unavailable MT GOODEN Primary Care Unavailable IVETTE, JUMA Referring Unavailable MT GOODEN Primary Care Unavailable IVETTE, JUMA Referring Unavailable MT GOODEN Primary Care Unavailable IVETTE, JUMA Referring Unavailable MT GOODEN Primary Care Unavailable IVETTE, JUMA Attending Unavailable IVETTEJAGUARJUMA Attending Unavailable Kalli Min Attending Unavailable Kalli Min Admitting Unavailable Mt Gooden Primary Care Unavailable Osvaldo Garza Referring Unavailable Bryce Lieberman Attending Unavailable Mt GOODEN Referring Unavailable Matty Murillo Attending Unavailable Chidi Basejessica Mills Attending Unavailable NONE, XXXX Referring Unavailable Mt GOODEN Referring Unavailable Mt GOODEN Attending Unavailable Azra Leon Attending Unavailabl Azra Hernandez Attending Unavailabl Kate Gray Referring Unavailable Jonah-Azra Linder Attending UnavailKevin Matos Attending Unavailable Murillo, Basem GJase Referring Unavailable Murillo Basem GJase Attending Unavailable Murillo, Basem G. Admitting Unavailable KAPLE, Mt A Admitting Unavailable SALAM, Hirsch Attending Unavailable KAPLE, Mt A Attending Unavailable KAPLE, Mt A Admitting Unavailable KAPLE, Mt A Referring Unavailable KAPLE, Mt A Attending Unavailable KAPLE, Mt A Admitting Unavailable Al-Marrawi, Mickd Yaser Attending Unavailabl e Al-Marrawi, Mhd Yaser Admitting Unavailabl e Al-Marrawi, Mhd Yaser Admitting Unavailabl e Al-Marrawi, Mhd Yaser Attending Unavailabl e KAPLE, Mt A Attending Unavailable KAPLE, Mt A Admitting Unavailable KAPLE, Mt A Attending Unavailable KAPLE, Mt A Admitting Unavailable Al-Marrawi, Mhd Yaser Admitting Unavailabl e Al-Marrawi, Mhd Yaser Attending Unavailabl e Moussawi, Ahmad Attending Unavailable Moussawi, Ahmad Admitting Unavailable Marcell Jensen Consulting Unavaila ble Marcell Jensen Consulting Unavaila ble Marcell Jensen Consulting Unavaila ble DickRalph silver FJase Consulting Unavailable Dick, Mohamed F. Consulting Unavailable Dick, Mohamed F. Consulting Unavailable KAPLE, Mt A Referring Unavailable Abdias Laureanory Attending Unavailable MD Pawan Laureano Admitting Unavailable ZumbPawan galloway Referring Unavailable Pawan Laureano Attending Unavailable MD Pawan Laureano Admitting Unavailable Murillo, Basem G. Referring Unavailable Murillo, Basem G. Attending Unavailable COPSEY, KALLI Referring Unavailable COPSEY, KALLI Attending Unavailable COPSEY, KALLI Admitting Unavailable KAPLE, Mt A Referring Unavailable KAPLE, Mt A Attending Unavailable KAPLE, Mt A Admitting Unavailable KAPLE, Mt A Attending Unavailable KAPLE, Mt A Attending Unavailable KAPLE, Mt A Attending Unavailable KAPLE, Mt A Attending Unavailable KAPLE, Mt A Attending Unavailable KAPLE, Mt A Attending Unavailable KAPLE, Mt A Attending Unavailable KAPLE, Mt A Attending Unavailable KAPLE, Mt A Attending Unavailable GelacioKevin Attending Unavailable Hajdari, Arturo H Attending Unavailable DianneJordan S. Attending Unavailable Allergies Allergy Classification Reported Allergen(s) Allergy Type Date of Onset Reaction(s) Facility (20 sources) Azithromycin; Translations: [azithromycin] Drug Allergy 06-08-2022 [facility] (1 source) Azithromycin Drug Allergy 05-16-2023 [facility] Repository Medications Current Medications Medication Drug Class(es) Dates Sig (Normalized) Sig (Original) acetaminophen 325 mg oral tablet (20 sources) Start: 08-01-2022 take 1 tablet by mouth once Tylenol 325 mg Tab = 1 tab(s), Oral, Once, # 1 tab(s), Refills(s) 0 Start Date: 08/01/22 Status: Ordered Start: 01-06-2020 take 2 tablets by mo [facility] every six hours as needed for pain [...] BID, # 180 tab(s), Refills(s) 3, Pharmacy: [facility]/pharmacy #[id number], 185, cm, 04/09/23 10:08:00 EDT, Height/Length Dosing, 154.1, kg, 04/09/23 10:08:00 EDT, Weight Dosing Start Date: 04/09/23 Status: Ordered Start: 02-19-2023 Eliquis 5 mg o ral tablet 2 tabs (10 mg) BID x 7 days then 1 tab bid, Oral, BID, initial fill only, # 74 tab(s), Refills(s) 0, Pharmacy: [facility]/pharmacy #[id number], 182, cm, 02/18/23 9:01:00 EDT, Height/Length [...] day(s), # 28 cap(s), Refills(s) 0, [id number], cm, 03/13/23 2:24:00 EDT, Height/Length Dosing, 154.7, kg, 03/13/23 2:24:00 EDT, Weight Dosing Start Date: 03/13/23 Stop Date: 03/20/23 Status: Ordered Start: 12-02-2022 take 1 capsule by [facility] every eight hours cephalexin 500 mg Cap 500 mg = 1 cap(s), Oral, q8hr, # 30 cap(s), Refills(s) 0, [id number], cm, 12/02/22 12:12:00 EDT, Height/Length [...] day(s), # 10 tab(s), Refills(s) 0, Pharmacy: [facility]/pharmacy #[id number], 185, cm, 06/22/22 11:58:00 EST, Height/Length Dosing, 146.3, kg, 06/22/22 11:58:00 EST, Weight Dosing Start Date: 06/22/22 Stop Date: 07/02/22 Status: Ordered Start: 12-14-2021 take 1 tablet by [facility] at bedtime cyclobenzaprine 10 mg Tab 10 mg = 1 tab(s), Oral, Bedtime, # 30 tab(s), Refills(s) 1, Pharmacy: [facility]/pharmacy #[id number], 185, cm, 12/14/21 15:11:00 EDT, Height/Length Dosing, 144.7, kg, 12/14/21 15:11:00 EDT, Weight Dosing Start Date: 12/14/21 Status: Ordered doxycycline hyclate 100 mg oral capsule (1 source) Tetracycline-class Drug Start: 08-22-2021 take 1 capsule by mouth twice daily doxycycline hyclate 100 mg Cap 100 mg = 1 cap(s), Oral, BID, # 20 cap(s), Refills(s) 0, Pharmacy: [facility]/pharmacy #[id number], 185, cm, 08/22/21 9:05:00 EST, Height/Length Dosing, 145.2, kg, 08/22/21 9:05:00 EST, Weight Dosing Start Date: 08/22/21 Status: Ordered famotidine 40 mg oral tablet (20 sources) Histamine-2 Receptor Antagonist Start: 06-03-2023 take 1 tablet by mouth once daily at bedtime famotidine 40 mg Tab 40 mg = 1 tab(s), Oral, Once a day (at bedtime), # 90 tab(s), Refills(s) 3, Pharmacy: [facility]/pharmacy #[id number], 182, cm, 06/03/23 13:45:00 EDT, Height/Length Dosing, 146.6, kg, 06/03/23 13:45:00 EDT, Weight Dosing Start Date: 06/03/23 Status: Ordered Start: 01-22-2022 take 1 tablet by nicolas th once daily at bedtime famotidine 40 mg Tab 40 mg = 1 tab(s), Oral, Once a day (at bedtime), # 90 tab(s), Refills(s) 3, Pharmacy: [facility]/pharmacy #[id number], 182, cm, 12/10/22 10:07:00 EDT, Height/Length Dosing, 154.8, kg, 12/10/22 10:07:00 EDT, Weight Dosing Start Date: 12/31/22 Status: Ordered Start: 12-08-2020 take 1 tablet by nicolas th once daily at bedtime famotidine 40 mg Tab 40 mg = 1 tab(s), Oral, Once a day (at bedtime), # 90 tab(s), Refills(s) 3, Pharmacy: [facility]/pharmacy #[id number], 185, cm, 10/21/20 9:58:00 EST, Height/Length Dosing, 148.8, kg, 10/21/20 9:57:00 EST, Weight Dosing Start Date: 12/08/20 Status: Ordered Comment on above: Take 40 mg by mouth daily at bedtime. fluticasone propionate 0.05 mg/actuat metered dose nasal spray (20 sources) Corticosteroid Start: 3 Flonase 0.05 mg/inh Toluca 2 spray(s), Nasal, Daily, 16 gram, Refill(s) 11, each nostril, [facility]/pharmacy #[id number], 182, cm, 11/08/22 10:10:00 EDT, Height/Length [...] Edema, # 90 tab(s), Refills(s) 3, Pharmacy: [facility]/pharmacy #[id number], 182, cm, 06/03/23 13:45:00 EDT, Height/Length Dosing, 146.6, kg, 06/03/23 13:45:00 EDT, Weight Dosing Start Date: 06/03/23 Status: Ordered Start: 12-18-2022 take 1 tablet by nicolas once daily as needed for edema Lasix 40 mg Tab 40 mg = 1 tab(s), Oral, Daily, PRN Edema, # 30 tab(s), Refills(s) 5, Pharmacy: [facility]/pharmacy #[id number], 182, cm, 12/10/22 10:07:00 EDT, Height/Length Dosing, 154.8, kg, 12/10/22 10:07:00 EDT, Weight Dosing Start Date: 12/18/22 Status: Ordered gabapentin 100 mg oral capsule (2 sources) Anti-epileptic Agent Start: 11-30-2020 take 1 capsule by mouth once daily gabapentin 100 mg Cap 100 mg = 1 cap(s), Oral, Daily, # 30 cap(s), Refills(s) 3, Pharmacy: [facility]/pharmacy #[id number], 185, cm, 10/21/20 9:58:00 EST, Height/Length [...] Daily, # 90 tab(s), Refills(s) 3, Pharmacy: [facility]/pharmacy #[id number], 185, cm, 04/09/23 10:08:00 EDT, Height/Length Dosing, 154.1, kg, 04/09/23 10:08:00 EDT, Weight Dosing Start Date: 05/05/23 Status: Ordered Start: 10-14-2020 take 1 tablet by nicolas th once daily lisinopril 10 mg Tab 10 mg = 1 tab(s), Oral, Daily, # 90 tab(s), Refills(s) 1, Pharmacy: [facility]/pharmacy #[id number], 185, cm, 03/15/22 8:30:00 EDT, Height/Length Dosing, 146, kg, 03/15/22 8:30:00 EDT, Weight Dosing Start Date: 04/20/22 Status: Ordered Comment on above: Take by mouth. metFORMIN hydrochloride 1000 mg oral tablet (20 sources) Biguanide Start: 12-31-2022 take 1 tablet by mouth twice daily metformin 1000 mg Tab 1,000 mg = 1 tab(s), Oral, BID, # 180 tab(s), Refills(s) 3, Pharmacy: [facility]/pharmacy #[id number], 182, cm, 12/10/22 10:07:00 EDT, Height/Length Dosing, 154.8, kg, 12/10/22 10:07:00 EDT, Weight Dosing Start Date: 12/31/22 Status: Ordered Start: 12-10-2022 take 1 tablet by nicolas th twice daily metformin 1000 mg Tab 1,000 mg = 1 tab(s), Oral, BID, # 180 tab(s), Refills(s) 3, Pharmacy: [facility]/pharmacy #[id number], 182, cm, 12/10/22 10:07:00 EDT, Height/Length Dosing, 154.8, kg, 12/10/22 10:07:00 EDT, Weight Dosing Start Date: 12/10/22 Status: Ordered Start: 10-06-2021 take 1 tablet by nicolas th once daily metFORMIN (GLUCOPHAGE) 1,000 mg tablet Take 1,000 mg by mouth once daily. 0 10/01/2022 Active Comment on above: Take 1,000 mg by nicolas th once daily. methocarbamol 500 mg oral tablet (17 sources) Muscle Relaxant Start: 09-05-2023 take 2 tablets by mouth four times daily as needed for muscle spasms Robaxin 500 mg Tab 1,000 mg = 2 tab(s), Oral, QID, PRN Spasm, # 100 tab(s), Refills(s) 3, [id number], cm, 09/05/23 9:38:00 EST, Height/Length Dosing, 143, kg, 09/05/23 9:38:00 EST, Weight Dosing Start Date: 09/05/23 Status: Ordered Start: 02-19-2023 End: 03-05-2023 take 2 tablets by mouth four times daily as needed for muscle spasms Robaxin 500 mg Tab 1,000 mg = 2 tab(s), Oral, QID, PRN spasm, # 120 tab(s), Refills(s) 0, Pharmacy: [facility]/pharmacy #[id number], 182, cm, 03/01/23 13:14:00 EDT, Height/Length Dosing, 153.1, kg, 03/01/23 13:14:00 EDT, Weight Dosing Start Date: 03/04/23 Status: Ordered methylPREDNISolone 4 mg oral tablet (1 source) Corticosteroid Start: 12-14-2021 End: 01-01-2022 Medrol 4 mg Tab = 1 packet(s), Oral, As Directed, as directed on package labeling, X 6 day(s), # 21 tab(s), Refills(s) 2, Pharmacy: [facility]/pharmacy #[id number], 185, cm, 12/14/21 15:11:00 EDT, Height/Length [...] Daily, # 90 cap(s), Refills(s) 3, Pharmacy: [facility]/pharmacy #[id number], 182, cm, 11/08/22 10:10:00 EDT, Height/Length Dosing, 151.1, kg, 11/08/22 10:10:00 EDT, Weight Dosing Start Date: 11/15/22 Status: Ordered Comment on above: Take 40 mg by mouth once daily. omeprazole 40 mg Cap-DR (2 sources) Start: 11-20-2021 take 1 capsule by mouth once daily omeprazole 40 mg Cap-DR 40 mg = 1 cap(s), Oral, Daily, # 90 cap(s), Refills(s) 3, Pharmacy: [facility]/pharmacy #[id number], 182.9, cm, 09/18/21 11:36:00 EST, Height/Length [...] Daily, # 90 tab(s), Refills(s) 3, [id number], cm, 06/26/23 9:53:00 EST, Height/Length Dosing, 147, kg, 06/26/23 9:53:00 EST, Weight Dosing Start Date: 07/02/23 Status: Ordered Start: 06-03-2023 take 1 tablet by nicolas once daily pioglitazone 30 mg Tab 30 mg = 1 tab(s), Oral, Daily, # 90 tab(s), Refills(s) 3, Pharmacy: [facility]/pharmacy #[id number], 182, cm, 06/03/23 13:45:00 EDT, Height/Length Dosing, 146.6, kg, 06/03/23 13:45:00 EDT, Weight Dosing Start Date: 06/03/23 Status: Ordered Start: 11-08-2022 take 1 tablet by [facility] once daily Actos 45 mg Tab 45 mg = 1 tab(s), Oral, Daily, # 90 tab(s), Refills(s) 3, [id number], cm, 11/08/22 10:10:00 EDT, Height/Length Dosing, 151.1, kg, 11/08/22 10:10:00 EDT, Weight Dosing Start Date: 11/08/22 Status: Ordered Start: 05-10-2022 take 1 tablet by [facility] once daily Actos 15 mg Tab 15 mg = 1 tab(s), Oral, Daily, # 90 tab(s), Refills(s) 3, [id number], 185, cm, 03/15/22 8:30:00 EDT, Height/Length Dosing, 146, kg, 03/15/22 8:30:00 EDT, Weight Dosing Start Date: 05/10/22 Status: Ordered Start: 07-22-2020 take 1 tablet by nicolas once daily Actos 15 mg Tab 15 mg = 1 tab(s), Oral, Daily, # 90 tab(s), Refills(s) 3, Pharmacy: [facility]/pharmacy #[id number], 185, cm, 07/22/20 10:49:00 EST, Height/Length Dosing, 148.4, kg, 07/22/20 10:49:00 EST, Weight Dosing Start Date: 07/22/20 Status: Ordered polyethylene glycol 3350 647946 mg / potassium chloride 1480 mg / sodium bicarbonate 5720 mg / sodium chloride 85438 mg powder for oral solution (16 sources) Osmotic Laxative Start: 01-23-2023 NuLYTELY Mendez oral powder for reconstitution See Instructions, 1 EA, Refill(s) 0, See physician instructions prior to procedure., [facility]/pharmacy #[id number], 185, cm, 01/23/23 9:12:00 EDT, Height/Length Dosing, 152.1, kg, 01/23/23 9:12:00 EDT, Weight Dosing Start Date: 01/23/23 Status: Ordered predniSONE 20 mg oral tablet (1 source) Start: 06-22-2022 End: 06-29-2022 take 2 tablets by mouth once daily predniSONE 20 mg Tab 40 mg = 2 tab(s), Oral, Daily, X 7 day(s), # 14 tab(s), Refills(s) 0, Pharmacy: [facility]/pharmacy #[id number], 185, cm, 06/22/22 11:58:00 EST, Height/Length [...] Daily, # 90 tab(s), Refills(s) 1, Pharmacy: [facility]/pharmacy #[id number], 185, cm, 06/22/22 11:58:00 EST, Height/Length Dosing, 146.3, kg, 06/22/22 11:58:00 EST, Weight Dosing Start Date: 07/02/22 Status: Ordered Start: 05-03-2021 take 1 tablet by nicolas once daily Januvia 100 mg Tab 100 mg = 1 tab(s), Oral, Daily, # 90 tab(s), Refills(s) 1, Pharmacy: [facility]/pharmacy #[id number], 185, cm, 12/14/21 15:11:00 EDT, Height/Length Dosing, 144.7, kg, 12/14/21 15:11:00 EDT, Weight Dosing Start Date: 12/15/21 Status: Ordered tamsulosin hydrochloride 0.4 mg oral capsule (3 sources) alpha-Adrenergic Monse Start: 09-05-2023 take 1 capsule by mouth once daily Flomax 0.4 mg Cap 0.4 mg = 1 cap(s), Oral, Daily, # 90 cap(s), Refills(s) 3, [id number] 185, cm, 09/05/23 9:38:00 EST, Height/Length [...] Lasix, # 90 tab(s), Refills(s) 3, [id number] 182, cm, 06/03/23 13:45:00 EDT, Height/Length Dosing, 146.6, kg, 06/03/23 13:45:00 EDT, Weight Dosing Start Date: 06/03/23 Status: Ordered Start: 12-18-2022 take 1 tablet by nicolas th once daily as needed for edema potassium chloride 20 mEq ER Tab 20 mEq = 1 tab(s), Oral, Daily, PRN Edema, Take on the days he takes Lasix, # 30 tab(s), Refills(s) 5, Pharmacy: [facility]/pharmacy #[id number], 182, cm, 12/10/22 10:07:00 EDT, Height/Length [...] encounter] Onset: 4 Episodic E Codes: Fall (4 sources) Accidental fall 09-24-2023 Esophageal disorders (20 [...] buttock, initial encounter] Onset: 3 Episodic Osteoarthritis (6 sources) Osteoarthritis of joint of left shoulder region; Translations: [Osteoarthritis of right hip joint] 09-05-2023 Chronic Other acquired deformities (2 sources) Stenosis of intervertebral foramina 09-24-2023 Episodic Other aftercare (20 sources) Long-term current use of anticoagulant 02-20-2021 Episodic Other aftercare (1 source) Long-term current use of oral hypoglycemic medication; Translations: [[facility] (current) use of oral hypoglycemic drugs] Onset: [...] Chronic Other diseases of veins and lymphatics (18 sources) Disorder of vein of lower extremity [...] hearing-aid] Onset: 3 Episodic Other gastrointestinal disorders (20 sources) Constipation 02-18-2023 Episodic Other gastrointestinal disorders [...] 12-10-2022 Episodic Respiratory failure; insufficiency; arrest (adult) (19 sources) Chronic hypoxemic respiratory failure; Translations: [Chronic [...] Resolved: 9 02-20-2021 Episodic Superficial injury; contusion (3 sources) Superficial injury of head; Translations: [Contusion [...] Name Value Interpretation Reference Range Facil ity Consent for Treatmenton 09-12 Consent for Treatment [id number] IFF Normal [facility] XR Hip 2-3 Views Righton XR Hip 2-3 Views Right Normal [facility] XR Shoulder Complete Lefton 09-25-2023 XR Shoulder Complete Left Normal [facility] Ambulatory Visit Summaryon 0 09-24-2023 Ambulatory Visit Summary Normal [address], [facility] [place] [address]- \.br\ You Need to Schedule the Following Appointments\.br\ Follow Up with MAMTA LEE FAAFP, [place], BEATRIZ, PED When: In 3 months\.br\ Where:\.br\ [address], [address]\.br\ [place] [address]-\.br\ \.br\ Medications\.br\ What How Much When Why [...] Unchanged fluticasone nasal (Flonase 0.05 mg/ inh Toluca) 2 Sprays Nasal Inhalation Every day Allergic [...] By Mouth 2 times a day\.br\ Unchanged methocarbamol (Robaxin 500 mg Tab) 2 Tablets By Mouth 4 times a day as needed for Spasm Spasm of lumbar paraspinous muscle Arthritis, lumbar spine\.br\ Unchanged omeprazole (omeprazole 40 mg Cap-DR) 1 [...] the days he takes Lasix \.br\ Unchanged tamsulosin (Flomax 0.4 mg Cap) 1 Capsules By Mouth Every day BPH associated with nocturia\.br\ Allergies\.br\ Zithromax Z-Davey (hives/welts)\.br \ Problems\.br\ Ongoing - Any problem that you are currently receiving treatment for.\.br\ Accidental fall involving sidewalk curb\.br\ Allergic rhinitis\.br\ Aortic ectasia\.br\ Arthritis, lumbar spine\.br\ Mccarty's esophagus with dysplasia\.br\ BPH associated with nocturia\.br\ Chronic respiratory failure with hypoxia\.br\ Constipation\.br\ Degenerative arthritis of left shoulder region\.br\ Edema of both legs\.br\ Essential hypertension\.br\ Facial contusion\.br\ Gastroesophageal reflux disease with hiatal hernia\.br\ High serum protein level\.br\ [facility] current use of oral hypoglycemic drug\.br\ Neural foraminal stenosis of cervical spine\.br\ Numbness of left hand\.br\ Orthopnea\.br\ Osteoarthritis of right hip\.br\ Recurrent pulmonary emboli\.br\ Sacroiliitis\.br\ Screening PSA (prostate specific antigen)\.br\ Somatic dysfunction of lower extremities\.br\ Somatic dysfunction of lumbar region\.br\ Somatic dysfunction of sacral spine\.br\ Spasm of lumbar paraspinous muscle\.br\ Spondylosis of cervical spine\.br\ Type 2 diabetes mellitus with morbid obesity\.br\ Venous stasis dermatitis of lower extremity\.br\ Wears hearing aid in both ears\.br\ Historical - Any problem that you are no longer receiving treatment for.\.br\ Costochondritis\. br\ Hx of pulmonary embolus\.br\ kidney stones\.br\ Left shoulder pain\.br\ [facility] (current) use of anticoagulants\.b r\ Lumbago\.br\ Lumbar [...] choosing us for your care.\.br\ Education Materials\.br\ Head Injury, Adult\.br\ \.br\ There are many types of head injuries. They can be as minor as a small bump. Some head injuries can be worse. Worse injuries include:\.br\ ? \.br\ A strong hit to the head that shakes the brain back and forth, causing damage (concussion).\.br \ ? \.br\ A bruise (contusion) of the brain. This means there is bleeding in the brain that can cause swelling.\.br\ ? \.br\ A cracked skull (skull fracture).\.br\ ? \.br\ Bleeding in the brain that gathers, gets thick (makes a clot), and forms a bump (hematoma).\.br\ Most problems from a head injury come in the first 24 hours. However, you may still have side effects up to 7?10 days after your injury. It is important to watch your condition for any changes. You may need to be watched in the emergency department or urgent care, or you may need to stay in the hospital.\.br\ What are the causes?\.br\ There are many possible causes of a head injury. A serious head injury may be caused by:\.br\ ? \.br\ A car accident.\.br\ ? \.br\ Bicycle or motorcycle accidents.\.br\ ? \.br\ Sports injuries.\.br\ ? \.br\ Falls.\.br\ ? \.br\ Being hit by an object.\.br\ What are the signs or symptoms?\.br\ Symptoms of a head injury include a bruise, bump, or bleeding where the injury happened. Other physical symptoms may include:\.br\ ? \.br\ Headache.\.br\ ? \.br\ Feeling like you may vomit (nauseous) or vomiting.\.br\ ? \.br\ Dizziness.\.br\ ? \.br\ Blurred or double vision.\.br\ ? \.br\ Being uncomfortable around bright lights or loud noises.\.br\ ? \.br\ Shaking movements that you cannot control (seizures).\.br\ ? \.br\ Feeling tired.\.br\ ? \.br\ Trouble being woken up.\.br\ ? \.br\ Fainting or loss of consciousness.\.b r\ Mental or emotional symptoms may include:\.br\ ? \.br\ Feeling grumpy or cranky.\.br\ ? \.br\ Confusion and memory problems.\.br\ ? \.br\ Having trouble paying attention or concentrating.\.b r\ ? \.br\ Changes in eating or sleeping habits.\.br\ ? \.br\ Feeling worried or nervous (anxious).\.br\ ? \.br\ Feeling sad (depressed).\.br\ How is this treated?\.br\ Treatment for this condition depends on how severe the injury is and the type of injury you have. The main goal is to prevent problems and to allow the brain time to heal.\.br\ Mild head injury\.br\ If you have a mild head injury, you may be sent home, and treatment may include:\.br\ ? \.br\ Being watched. A responsible adult should stay with you for 24 hours after your injury and check on you often.\.br\ ? \.br\ Physical rest.\.br\ ? \.br\ Brain rest.\.br\ ? \.br\ Pain medicines.\.br\ Severe head injury\.br\ If you have a severe head injury, treatment may include:\.br\ ? \.br\ Being watched closely. This includes staying in the hospital.\.br\ ? \.br\ Medicines to:\.br\ ? \.br\ Help with pain.\.br\ ? \.br\ Prevent seizures.\.br\ ? \.br\ Help with brain swelling.\.br\ ? \.br\ Protecting your airway and using a machine that helps you breathe (ventilator).\.br \ ? \.br\ Treatments to watch for and manage swelling inside the brain.\.br\ ? \.br\ Brain surgery. This may be needed to:\.br\ ? \.br\ Remove a collection of blood or blood clots.\.br\ ? \.br\ Stop the bleeding.\.br\ ? \.br\ Remove a part of the skull. This allows room for the brain t [facility] Family Medicine Office/Clini c Noteon 09-24-2023 [facility] Medicine Office/Clinic Note Normal [facility] Comment on above: Result Comment: Elec tronically Signed By: Mt GOODEN DO, FAAFP\.br\Date and Time Signed: 09/24/23 11:06 EST Patient Educationon 09-24-19 Patient Education Normal [facility] ED Traumaon 09-23-2023 ED Trauma [id number] TIFF Normal [facility] ED Traumaon 09-22-2023 ED Trauma [id number] IFF Normal [facility] ED Note-Physicianon 09-21-19 ED Note-Physician Normal [facility] Comment on above: Result Comment: Elec tronically Signed By: Deshawn Rollins PA-C\.br\Date and Time Signed: 09/20/23 15:46 EST\.br\Electronically Co-Signed By: Kevin Brizuela DO\.br\Date and Time Co-Signed: 09/21/23 07:12 EST Monitor Recordon 09-21-2023 Monitor Record [id number] TIFF Normal [facility] CT Head or Brain w/o Contras ton 09-20-2023 CT Head or Brain w/o Contrast Normal [facility] CT Spine Cervical w/o Contra ston 09-20-2023 CT Spine Cervical w/o Contrast Normal [facility] Consent for Treatmenton Consent for Treatment [id number] IFF Normal [facility] Discharge Instructionson Discharge Instructions [id number]#1.00 TIFF Normal [facility] ED Clinical Summaryon 2023 ED Clinical Summary Normal [facility] ED Patient Education Noteon 09-20-2023 ED Patient Education Note Normal [facility] ED Patient Summaryon 024 ED Patient Summary Normal [facility] PT - Assessmentson PT - Assessments [id number]#1.00T IFF Normal [facility] PT - Assessments [id number]#1.00T IFF Normal [facility] PT - Consentson 09-13-2023 PT - Consents [id number]#1.00T IFF Normal [facility] RAD - Ultrasound Reporton RAD - Ultrasound Report [id number]#1.00T IFF Normal [facility] Consent for Treatmenton Consent for Treatment [id number]#1.00T IFF Normal [facility] RAD - MISCon 09-09-2023 RAD - MISC [id number]#1.00T IFF Normal [facility] Ambulatory Visit Summaryon 0 09-05-2023 Ambulatory Visit Summary Normal [facility] Family Medicine Office/Clini c Noteon 09-05-2023 Family Medicine Office/Clinic Note Normal [facility] Comment on above: Result Comment: Elec tronically Signed By: MAMTA LEE FAAFP, [place]\.br\Date and Time Signed: 09/05/23 10:22 EST Patient Educationon 09-05-19 Patient Education Normal [facility] CHEMISTRYOrdered By: SYSTEM SYSTEM on 09-04-2023 Albumin [...] (Bld) [Mass fraction] 6.2 % High <=5.9% [facility] ChemAutoSS Consent for Treatmenton 08-13 Consent for Treatment [id number]#1.00T IFF Normal [facility] Hep Func Panelon 09-04-2023 Albumin/Globulin [Mass ratio] 1.2 {ratio} Normal 1.1-2.2 [facility] Comment on above: Performed By: #### 7 [id number], 5962449 ####[facility] [address] [place] [address] Globulin (S) [Mass/Vol] 3.3 g/dL Normal 1.4-4.0 [facility] Comment on above: Performed By: #### 7 [id number], 6577351 ####[facility] [address] [place] [address] Protein [Mass/Vol] 7.4 g/dL Normal 6.0-7.8 [facility] Comment on above: Performed By: #### 7 23076806, 0685125 ####[facility] [address] [place] [address] Albumin [Mass/Vol] 4.1 g/dL Normal 3.3-5.0 [facility] Comment on above: Performed By: #### 7 32092285, 7359495 ####[facility] [address] [place] [address] Alk Phos 46 Int._Unit/L Normal 21-98 [facility] Comment on above: Performed By: #### 7 89380651, 6512607 ####[facility] [address] [place] [address] ALT 23 Int._Unit/L Normal 6-46 [facility] Comment on above: Performed By: #### 7 [id number], 5221132 ####[facility] [address] [place] [address] AST 26 Int._Unit/L Normal 5-43 [facility] Comment on above: Performed By: #### 7 13545168, 6620648 ####[facility] [address] [place] [address] Bili Direct 0.1 mg/dL Normal 0.0-0.4 [facility] Comment on above: Performed By: #### 7 [id number], 5396762 ####[address] [address] Bili Indirect 0.4 mg/dL Normal 0.1-0.9 [facility] Comment on above: Performed By: #### 7 98302472, 9589785 ####[facility] [address] [place] [address] Bili Total 0.5 mg/dL Normal 0.0-1.1 [facility] Comment on above: Performed By: #### 7 49423527, 5061733 ####[facility] [address] [place] [address] HdwN5khg 09-04-2023 HbA1c (Bld) [Mass fraction] 6.2 % High <=5.9 [facility] Comment on above: Performed By: #### 7 19050049, 7519837 ####[facility] [address] [place] [address] Ambulatory Visit Summaryon 0 08-26-2023 Ambulatory Visit Summary Normal [address] [facility], [facility] [place] [address]- \.br\ Medications\.br\ What How Much When Why [...] Unchanged fluticasone nasal (Flonase 0.05 mg/ inh [place]) 2 Sprays Nasal Inhalation Every day Allergic [...] with hiatal hernia\.br\ High serum protein level\.br\ [facility] current use of oral hypoglycemic drug\.br\ Numbness [...] pulmonary embolus\.br\ kidney stones\.br\ Left shoulder pain\.br\ 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 \.br\ Place frequently used items in voxu-cv-wczwh places. Lower the shelves around your home [...] way.\.br\ ? \.br\ Do not use floor angolan or wax that makes floors slippery. If [...] ? \.br\ In the garage, clean u [facility] Family Medicine Office/Clini c Noteon 08-26-2023 Family Medicine Office/Clinic Note Normal [facility] Comment on above: Result Comment: Elec tronically Signed By: Mt GOODEN DO, FAAFP\.br\Date and Time Signed: 08/26/23 15:29 EST\.br\Electronically Co-Signed By: Joseluis Swanson\.br\Date and Time Co-Signed: 08/26/23 10:47 EST Patient Educationon 08-26-19 Patient Education Normal [facility] Screenson 08-26-2023 Screens [id number]#1.00T IFF Normal [facility] Physician Orderon 07-18-2023 Physician Order [id number]#1.00T IFF Normal [facility] Consent for Treatmenton Consent for Treatment [id number]#1.00T IFF Normal [facility] Heart and Vascular Office/Cl inic Noteon 07-17-2023 Heart and Vascular Office/Clinic Note Normal [facility] Comment on above: Result Comment: Elec tronically Signed By: Matty Murillo MD\.br\Date and Time Signed: 07/17/23 10:18 EST Pulmonary Function Studieson 07-15-2023 Pulmonary Function Studies Normal [facility] Comment on above: Result Comment: Elec tronically Signed By: Matty Murillo MD\.br\Date and Time Signed: 07/15/23 09:48 EST Consent for Treatmenton 06-13 Consent for Treatment [id number]#1.00T IFF Normal [facility] Pulmonary Function Testson 09-09-2022 Pulmonary Function Tests [id number]#1.00T IFF Normal [facility] Respiratory Therapy Noteson 07-10-2023 Respiratory Therapy Notes [id number]#1.00T IFF Normal [facility] Consent for Treatmenton 06-13 Consent for Treatment [id number]#1.00T IFF Normal [facility] Oncology Noteon 07-09-2023 Oncology Note Normal [facility] Comment on above: Result Comment: Elec tronically Signed By: Charles MARTINEZ, Isabelle\.br\Date and Time Signed: 07/09/23 10:41 EST Oncology Progress Noteon Oncology Progress Note Normal [facility] Auto Diffon 07-08-2023 Basophils/100 WBC (Bld) 0.7 % Normal 0.0-2.0 [facility] Comment on above: Order Comment: Order Added by Discern Expert. Performed By: #### 2 269928, 1368846, 15185533, 4661615 ####[address] [place] [address] Basophils/Leukocyte s Auto (Bld) [Pure # fraction] 0.1 E9/L Normal 0.0-0.2 [facility] Comment on above: Order Comment: Order Added by Discern Expert. Performed By: #### 2 762481, 6954256, 61994637, 0409087 ####[address] [address] Eosinophils/100 WBC (Bld) 1.8 % Normal 0.0-8.0 [facility] Comment on above: Order Comment: Order Added by Discern Expert. Performed By: #### 2 618019, 0874240, 94967677, 4446388 ####[facility] [address] [place] [address] Eosinophils/Leukocy cam[place] Auto (Bld) [Pure # fraction] 0.1 E9/L Normal 0.0-0.5 [facility] Comment on above: Order Comment: Order Added by Discern Expert. Performed By: #### 2 030648, 7686585, 92357273, 9114236 ####[facility] [address] [place] [address] Lymphocytes/100 WBC (Bld) 31.1 % Normal 14.0-50.0 [facility] Comment on above: Order Comment: Order Added by Discern Expert. Performed By: #### 2 379812, 6031346, 55558514, 7615203 ####[address] [place] [address] Lymphocytes/Leukocy cam[place] Auto (Bld) [Pure # fraction] 2.5 E9/L Normal 1.0-4.0 [facility] Comment on above: Order Comment: Order Added by Discern Expert. Performed By: #### 2 629623, 4362539, 72035061, 4764624 ####[address] [address] Monocytes/100 WBC (Bld) 8.6 % Normal 4.0-14.0 [facility] Comment on above: Order Comment: Order Added by Discern Expert. Performed By: #### 2 488101, 0375405, 26897666, 6772106 ####[address] [address] Monocytes/Leukocyte s Auto (Bld) [Pure # fraction] 0.7 E9/L Normal 0.2-1.0 [facility] Comment on above: Order Comment: Order Added by Rudi Expert. Performed By: #### 2 083893, 8435671, 81682680, 2654343 ####[address] [address] Neutrophils/100 WBC (Bld) 57.8 % Normal 36.0-75.0 [facility] Comment on above: Order Comment: Order Added by Discern Expert. Performed By: #### 2 075229, 8552086, 61009915, 2566708 ####[address] [address] Neutrophils/Leukocy cam[place] Auto (Bld) [Pure # fraction] 4.6 E9/L Normal 2.0-7.5 [facility] Comment on above: Order Comment: Order Added by Discern Expert. Performed By: #### 2 545589, 5696818, 92312730, 0978895 ####[address] [place] [address] CBC w/ Auto Diffon 3 Erythrocyte distribution width (RBC) [Ratio] 15.1 % High 10.9-14.2 [facility] Comment on above: Performed By: #### 2 033839, 8330777, 91033967, 8105447 ####[address] [place] [address] Hematocrit (Bld) [Volume fraction] 40.3 % Normal 37.7-49.0 [facility] Comment on above: Performed By: #### 2 303754, 9682068, 11099563, 6051663 ####[address] [address] Hemoglobin (Bld) [Mass/Vol] 13.2 g/dL Low 13.5-17.5 [facility] Comment on above: Performed By: #### 2 378299, 5882361, 32875281, 5730177 ####[address] [address] MCH (RBC) [Entitic mass] 31.1 pg Normal 27.0-34.0 [facility] Comment on above: Performed By: #### 2 013753, 3821818, 43830509, 5689700 ####[address] [address] MCHC (RBC) [Mass/Vol] 32.8 g/dL Normal 31.4-36.0 [facility] Comment on above: Performed By: #### 2 117853, 7522000, 75833527, 7728567 ####[address] [address] MCV (RBC) [Entitic vol] 94.6 fL Normal 80.0-100.0 [facility] Comment on above: Performed By: #### 2 421544, 9405330, 87210108, 6769230 ####[address] [place] [address] Platelet mean volume (Bld) [Entitic vol] 7.9 fL Normal 6.4-10.8 [facility] Comment on above: Performed By: #### 2 159288, 5068485, 36728324, 1816769 ####[address] [address] Platelets (Bld) [#/Vol] 195.0 E9/L Normal 150.0-500.0 [facility] Comment on above: Performed By: #### 2 430608, 0166033, 05385602, 8420384 ####[address] [address] RBC (Bld) [#/Vol] 4.3 E12/L Normal 4.3-5.9 [facility] Comment on above: Performed By: #### 2 462157, 7342483, 02037771, 6472294 ####[address] [address] WBC corrected for nucl RBC Auto (Bld) [#/Vol] 7.9 E9/L Normal 4.0-11.0 [facility] Comment on above: Performed By: #### 2 203509, 3928647, 08266360, 0916979 ####[address] [address] CMPon 07-08-2023 Albumin [Mass/Vol] 3.8 g/dL Normal 3.3-5.0 [facility] Comment on above: Performed By: #### 2 390384, 9921171, 69127819, 5110892 ####[address] [address] Albumin/Globulin (S) [Mass conc ratio] 0.9 Low 1.1-2.2 [facility] Comment on above: Performed By: #### 2 834531, 7623685, 36103873, 5357630 ####[address] [address] ALP [Catalytic activity/Vol] 52 Int._Unit/L Normal 21-98 [facility] Comment on above: Performed By: #### 2 488019, 1274938, 87062707, 5581435 ####[facility] [address] [place] [address] ALT No additional P-5'-P [Catalytic activity/Vol] 36 Int._Unit/L Normal 6-46 [facility] Comment on above: Performed By: #### 2 246267, 0973730, 85579446, 6493697 ####[facility] [address] [place] [address] Anion gap [Moles/Vol] 14 mmol/L Normal 6-16 [facility] Comment on above: Performed By: #### 2 951482, 6513027, 89205619, 9302289 ####[facility] [address] [place] [address] AST [Catalytic activity/Vol] 49 Int._Unit/L High 5-43 [facility] Comment on above: Performed By: #### 2 050723, 3136621, 64979707, 8437812 ####[facility] [address] [place] [address] Bilirubin [Mass/Vol] 0.5 mg/dL Normal 0.0-1.1 [facility] Comment on above: Performed By: #### 2 946923, 8335992, 79865669, 1086390 ####[facility] [address] [place] [address] Calcium [Mass/Vol] 9.4 mg/dL Normal 8.9-11.1 [facility] Comment on above: Performed By: #### 2 846383, 2806718, 17477638, 2018901 ####[facility] [address] [place] [address] Chloride [Moles/Vol] 100 mmol/L Low 101-111 [facility] Comment on above: Performed By: #### 2 033932, 6513391, 31076959, 3551595 ####[facility] [address] [place] [address] CO2 [Moles/Vol] 28 mmol/L Normal 21-31 [facility] Comment on above: Performed By: #### 2 562453, 4349814, 26983530, 8917695 ####[facility] [address] [place] [address] Creatinine [Mass/Vol] 1.2 mg/dL Normal 0.5-1.3 [facility] Comment on above: Performed By: #### 2 054499, 6354308, 53083969, 2757451 ####[facility] [address] [place] [address] Globulin (S) [Mass/Vol] 4.1 g/dL High 1.4-4.0 [facility] Comment on above: Performed By: #### 2 376126, 3841900, 30091352, 7941051 ####[facility] [address] [place] [address] Glucose [Mass/Vol] 101 mg/dL Normal 55-199 [facility] Comment on above: Result Comment: If t his glucose result represents a fasting glucose, interpretation should refer to the following reference range: 55-99 mg/dL Performed By: #### 2 885768, 3381461, 39734914, 1474925 ####[facility] [address] [place] [address] Potassium [Moles/Vol] 4.7 mmol/L Normal 3.5-5.3 [facility] Comment on above: Performed By: #### 2 920779, 1316099, 91720369, 3831583 ####[facility] [address] [place] [address] Protein [Mass/Vol] 7.9 g/dL High 6.0-7.8 [facility] Comment on above: Performed By: #### 2 732324, 0827681, 51936537, 5220874 ####[facility] [address] [place] [address] Sodium [Moles/Vol] 137 mmol/L Normal 135-145 [facility] Comment on above: Performed By: #### 2 964998, 1307337, 01063561, 5979482 ####[facility] [address] [place] [address] Urea nitrogen [Mass/Vol] 20 mg/dL Normal 5-21 [facility] Comment on above: Performed By: #### 2 502364, 6497689, 76741711, 5905579 ####[facility] [address] [place] [address] Urea nitrogen/Creatinine [Mass ratio] 17 No Units Normal 10-20 [facility] Comment on above: Performed By: #### 2 121245, 0358964, 54003897, 4294157 ####[facility] [address] [place] [address] Consent for Treatmenton 06-13 Consent for Treatment [id number]#1.00T IFF Normal [facility] D-Dimeron 07-08-2023 Fibrin D-dimer FEU (PPP) [Mass/Vol] 323 [id number] Normal 215-500 [facility] Comment on above: Result Comment: This [...] skin infectionsLiver cirrhosisPregnancy Performed By: #### 2 644998 ####[facility] [address] [place] [address] eGFRon 07-08-2023 GFR/1.73 sq M.predicted among non-blacks MDRD (S/P/Bld) [Vol rate/Area] 63 mL/min/1.73 m2 Normal >=59 [facility] Comment on above: Order Comment: Order added by Discern Expert. 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 Kidney failure is indicated at less than 15 mL/min/1.73m2. Performed By: #### 2 978316, 4071324, 71160197, 9839840 ####[facility] [address] [place] [address] Immunization Recordson 07-02 Immunization Records [id number]#1.00T IFF Normal [facility] Consent for Treatmenton 06-12 Consent for Treatment [id number]#1.00T IFF Normal [facility] Heart and Vascular Office/Cl inic Noteon 06-26-2023 Heart and Vascular Office/Clinic Note Normal [facility] Comment on above: Result Comment: Elec tronically Signed By: Chidi ESPINAL, Matty [place]\.br\Date and Time Signed: 06/26/23 10:23 EST Physician Orderon 06-26-2023 Physician Order [id number]#1.00 TIFF Normal [facility] Consultation Noteon 06-22-20 Consultation Note [id number]#1.00T IFF Normal [facility] Consultation Note [id number]#1.00T IFF Normal [facility] US LE Venous Duplex Insuffic iency Bilaton 06-12-2023 US LE Venous Duplex Insufficiency Bilat Normal [facility] Consent for Treatmenton 05-14 Consent for Treatment [id number]#1.00T IFF Normal [facility] RAD - MISCon 06-11-2023 RAD - MISC [id number] [id number]#1.00 TIFF Normal [facility] Consultation Noteon 06-09-20 23 Consultation Note [id number]#1.00TI FF Normal [facility] Consultation Note [id number] 004 [id number]#1.00T IFF Normal [facility] Physician Referralon 023 Physician Referral [id number]#1.00 TIFF Normal [facility] CHEMISTRYOrdered By: SYSTEM SYSTEM on 06-03-2023 [...] in LDL [Mass/Vol] 129 mg/dL Normal <=129mg/dL [facility] Remisol Cholesterol in VLDL [Mass/Vol] 30 mg/dL Normal 7 - 40 mg/dL [facility] Remisol Globulin (S) [Mass/Vol] 4.1 g/dL High 1.4 - 4.0 gm/dL [facility] Remisol Protein [Mass/Vol] 7.8 g/dL Normal 6.0 - 7.8 gm/dL [facility] Remisol Triglyceride [Mass/Vol] 151 mg/dL High <=149mg/dL [facility] Remisol CHEMISTRYOrdered By: Ivy Sams on 06-03-2023 HbA1c (Bld) [Mass fraction] 7.2 % High <=5.9% [facility] ChemAutoSS Consent for Treatmenton 05-13 Consent for Treatment [id number]#1.00T IFF Normal [facility] Family Medicine Office/Clini c Noteon 06-03-2023 Family Medicine Office/Clinic Note Normal [facility] Comment on above: Result Comment: Elec tronically Signed By: MAMTA LEE FAAFP, [place]\.br\Date and Time Signed: 06/03/23 14:43 EDT Hep Func Panelon 06-03-2023 Albumin [Mass/Vol] 3.7 g/dL Normal 3.3-5.0 [facility] Comment on above: Performed By: #### 2 972656, 5183698 ####[facility] [address] [place] [address] Albumin/Globulin (S) [Mass conc ratio] 0.9 Low 1.1-2.2 [facility] Comment on above: Performed By: #### 2 166122, 4155217 ####[facility] [address] [place] [address] ALP [Catalytic activity/Vol] 53 Int._Unit/L Normal 21-98 [facility] Comment on above: Performed By: #### 2 274566, 0945943 ####[facility] [address] [place] [address] ALT No additional P-5'-P [Catalytic activity/Vol] 25 Int._Unit/L Normal 6-46 [facility] Comment on above: Performed By: #### 2 160280, 7575617 ####[facility] [address] [place] [address] AST [Catalytic activity/Vol] 34 Int._Unit/L Normal 5-43 [facility] Comment on above: Performed By: #### 2 907625, 4264596 ####[facility] [address] [place] [address] Bilirubin [Mass/Vol] 0.4 mg/dL Normal 0.0-1.1 [facility] Comment on above: Performed By: #### 2 664133, 8602979 ####[facility] [address] [place] [address] Bilirubin.direct [Mass/Vol] 0.1 mg/dL Normal 0.1-0.4 [facility] Comment on above: Performed By: #### 2 261906, 8954764 ####[facility] [address] [place] [address] Bilirubin.indirect [Mass or moles/Vol] 0.3 mg/dL Normal 0.1-0.9 [facility] Comment on above: Performed By: #### 2 393018, 7762097 ####[facility] [address] [place] [address] Globulin (S) [Mass/Vol] 4.1 g/dL High 1.4-4.0 [facility] Comment on above: Performed By: #### 2 175838, 3628123 ####[facility] [address] [place] [address] Protein [Mass/Vol] 7.8 g/dL Normal 6.0-7.8 [facility] Comment on above: Performed By: #### 2 736912, 7332919 ####[facility] [address] [place] [address] SdbN3skc 06-03-2023 HbA1c (Bld) [Mass fraction] 7.2 % High <=5.9 [facility] Comment on above: Performed By: #### 7 20027835 ####[facility] [address] [place] [address] Lipid Panelon 06-03-2023 Cholesterol [Mass/Vol] 196 mg/dL Normal 120-200 [facility] Comment on above: Performed By: #### 2 169393, 5302504 ####[facility] [address] [place] [address] Cholesterol in HDL [Mass/Vol] 42 mg/dL Invalid Interpretation Code [facility] Comment on above: Result Comment: HDL > or equal to 60 mg/dL: Low cardiovascular riskHDL < 40 mg/dL : High cardiovascular risk Performed By: #### 2 839614, 6398960 ####[facility] [address] [place] [address] Cholesterol in LDL [Mass/Vol] 129 mg/dL Normal <=129 [facility] Comment on above: Performed By: #### 2 529417, 5883913 ####[facility] [address] [place] [address] Cholesterol in VLDL [Mass/Vol] 30 mg/dL Normal 7-40 [facility] Comment on above: Performed By: #### 2 287914, 5725660 ####[facility] [address] [place] [address] Triglyceride [Mass/Vol] 151 mg/dL High <=149 [facility] Comment on above: Performed By: #### 2 899427, 9899875 ####[facility] [address] [place] [address] Patient Educationon 06-03-20 Patient Education Normal [facility] Physician Orderon 05-30-2023 Physician Order [id number]#1.00T IFF Normal [facility] Consultation Noteon 05-28-20 Consultation Note [id number] 003 [id number]#1.00T IFF [facility] Consultation Noteon 05-27-20 Consultation Note [id number] 002 [id number]#1.00T IFF [facility] Immunization Recordson 05-22 Immunization Records [id number]#1.00 TIFF [facility] Consultation Noteon 05-16-20 Consultation Note [id number] 005 [id number]#1.00T IFF [facility] Consent for Procedure/Surger yon 04-23-2023 Consent for Procedure/Surgery [id number]#1.00 CD:127 [facility] Consent for Treatmenton 04-12 Consent for Treatment [id number]#1.00C D:127 [facility] Consent to Photographon 04-12 Consent to Photograph [id number]#1.00 CD:127 [facility] Correspondence - Woundon Correspondence - Wound [id number]#1.00 CD:127 [facility] Correspondence - Wound [id number]#1.00 CD:127 [facility] Multi-Wound Charton 04-23-20 Multi-Wound Chart [id number]#1.00 CD:127 [facility] Nursing Assessment - Woundon 04-23-2023 Nursing Assessment - Wound [id number]#2.00 CD:127 [facility] Nursing Assessment - Wound [id number]#1.00 CD:127 [facility] Nursing Note - Woundon 04-23 Nursing Note - Wound [id number]#1.00 CD:127 Normal [facility] Physician Orderon 04-23-2023 Physician Order [id number]#1.00 CD:127 Normal [facility] Procedure - Woundon 04-23-20 Procedure - Wound [id number] [id number]#1.00 CD:127 Normal [facility] Progress Note - Woundon 04-12 Progress Note - Wound [id number]#1.00 CD:127 Normal [facility] Lab Miscellaneous-LCon 04-12 Lab Miscellaneous COMMENT Invalid Interpretation Code [facility] Comment on above: Result Comment: Test Ordered: 397126 Antithrombin ActivityAntithrombin Activity 109 % BNReference Range: 75-135Direct Xa inhibitor anticoagulants such as rivaroxaban, apixaban andedoxaban will lead to spuriously elevated antithrombin activitylevels possibly masking a deficiency.Performed at: [facility] [id number] PhD Quinn Pinedo Performed By: #### 1 [id number] ####[facility] [address] [place] [address] COAGULATIONOrdered By: Claudia Caballero on 04-10-2023 Fibrin D-dimer FEU (PPP) [Mass/Vol] 552 ng/mL FEU Invalid Interpretation Code 215 - 500 ng/mL FEU [facility] Auto Coag Comment on above: Result Comment: Resu lts Called To Shabana Zendejas By JUDIE_ And Read Back For Confirmation On 04/10/2023 08:58:49 EDT_. Consent for Treatmenton 03-14 Consent for Treatment [id number]#1.00C D:127 Normal [facility] D-Dimeron 08-30-2023 Fibrin D-dimer FEU (PPP) [Mass/Vol] 552 [id number] Abnormal 215-500 [facility] Comment on above: Result Comment: Resmahsa lts Called To Shabana Aashish By JUDIE_ And Read Back For Confirmation [...] skin infectionsLiver cirrhosisPregnancy Performed By: #### 2 930125 ####[facility] [address] [place] [address] Lab Miscellaneous-LCon 04-10 Test Code 866833 Invalid Interpretation Code [facility] Comment on above: Performed By: #### 1 [id number] ####[address] [address] Test Name AT activ Invalid Interpretation Code [facility] Comment on above: Performed By: #### 1 [id number] ####[facility] [address] [place] [address] Reference Laboratory Testing Ordered By: Sylwia Lubin on 04-10-2023 Test Code 350036 Invalid Interpretation Code [facility] SendOuts Test Name AT activ Invalid Interpretation Code [facility] SendOutsSS Consent for Treatmenton 03-13 Consent for Treatment [id number]#1.00C D:127 Normal [facility] Oncology Noteon 04-09-2023 Oncology Note Normal [facility] Comment on above: Result Comment: Elec tronically Signed By: Charles RN, Isabelle\.br\Date and Time Signed: 04/09/23 11:08 EDT Oncology Progress Noteon Oncology Progress Note Normal [facility] Auto Diffon 04-05-2023 Basophils/100 WBC (Bld) 0.7 % Normal 0.0-2.0 [facility] Comment on above: Order Comment: Order Added by Discern Expert. Performed By: #### 2 185453, 3783825, 9584538, 77294302 ####[facility] [address] [place] [address] Basophils/Leukocyte s Auto (Bld) [Pure # fraction] 0.0 E9/L Normal 0.0-0.2 [facility] Comment on above: Order Comment: Order Added by Rudi Expert. Performed By: #### 2 553327, 7385100, 3591876, 76005542 ####[address] [place] [address] Eosinophils/100 WBC (Bld) 3.3 % Normal 0.0-8.0 [facility] Comment on above: Order Comment: Order Added by Discern Expert. Performed By: #### 2 661763, 5725378, 7126506, 39841277 ####[facility] [address] [place] [address] Eosinophils/Leukocy camden Auto (Bld) [Pure # fraction] 0.2 E9/L Normal 0.0-0.5 [facility] Comment on above: Order Comment: Order Added by Discern Expert. Performed By: #### 2 675767, 4093208, 9231310, 36167284 ####[facility] [address] [place] [address] Lymphocytes/100 WBC (Bld) 27.4 % Normal 14.0-50.0 [facility] Comment on above: Order Comment: Order Added by Rudi Expert. Performed By: #### 2 260163, 5169158, 5359155, 19006675 ####[facility] [address] [place] [address] Lymphocytes/Leukocy cam[place] Auto (Bld) [Pure # fraction] 1.6 E9/L Normal 1.0-4.0 [facility] Comment on above: Order Comment: Order Added by Discern Expert. Performed By: #### 2 062555, 0942425, 1984828, 74584930 ####[address] [place] [address] Monocytes/100 WBC (Bld) 8.2 % Normal 4.0-14.0 [facility] Comment on above: Order Comment: Order Added by Discern Expert. Performed By: #### 2 076436, 0847658, 3937750, 63015756 ####[address] [address] Monocytes/Leukocyte s Auto (Bld) [Pure # fraction] 0.5 E9/L Normal 0.2-1.0 [facility] Comment on above: Order Comment: Order Added by Discern Expert. Performed By: #### 2 219104, 5974231, 0630475, 56954389 ####[address] [address] Neutrophils/100 WBC (Bld) 60.4 % Normal 36.0-75.0 [facility] Comment on above: Order Comment: Order Added by Discern Expert. Performed By: #### 2 104369, 7343542, 9939548, 03897971 ####[address] [address] Neutrophils/Leukocy cam[place] Auto (Bld) [Pure # fraction] 3.6 E9/L Normal 2.0-7.5 [facility] Comment on above: Order Comment: Order Added by Discern Expert. Performed By: #### 2 386288, 5043580, 4006194, 38295459 ####[address] [address] CBC w/ Auto Diffon 3 Erythrocyte distribution width (RBC) [Ratio] 14.5 % High 10.9-14.2 [facility] Comment on above: Performed By: #### 2 751561, 4686155, 8444436, 39142526 ####[address] [place] [address] Hematocrit (Bld) [Volume fraction] 39.5 % Normal 37.7-49.0 [facility] Comment on above: Performed By: #### 2 229626, 6266076, 7648631, 45591583 ####[address] [address] Hemoglobin (Bld) [Mass/Vol] 13.2 g/dL Low 13.5-17.5 [facility] Comment on above: Performed By: #### 2 235053, 8971869, 7397224, 93167766 ####[address] [address] MCH (RBC) [Entitic mass] 31.3 pg Normal 27.0-34.0 [facility] Comment on above: Performed By: #### 2 994631, 3295769, 0157546, 10768227 ####[address] [address] MCHC (RBC) [Mass/Vol] 33.4 g/dL Normal 31.4-36.0 [facility] Comment on above: Performed By: #### 2 131007, 3022691, 8974100, 04348333 ####[address] [address] MCV (RBC) [Entitic vol] 93.8 fL Normal 80.0-100.0 [facility] Comment on above: Performed By: #### 2 461827, 0735814, 1468993, 38249194 ####[address] [address] Platelet mean volume (Bld) [Entitic vol] 7.8 fL Normal 6.4-10.8 [facility] Comment on above: Performed By: #### 2 585523, 4146708, 5106097, 27089923 ####[address] [address] Platelets (Bld) [#/Vol] 152.0 E9/L Normal 150.0-500.0 [facility] Comment on above: Performed By: #### 2 690085, 2537968, 2953465, 43876286 ####[facility] [address] [place] [address] RBC (Bld) [#/Vol] 4.2 E12/L Low 4.3-5.9 [facility] Comment on above: Performed By: #### 2 268844, 6890952, 0303814, 46648222 ####[facility] [address] [place] [address] WBC corrected for nucl RBC Auto (Bld) [#/Vol] 6.0 E9/L Normal 4.0-11.0 [facility] Comment on above: Performed By: #### 2 504169, 5086873, 0685855, 44344333 ####[facility] [address] [place] [address] CHEMISTRYOrdered By: SYSTEM SYSTEM on 04-05-2023 Albumin [...] rate/Area] 78 mL/min/1.73 m2 Normal >=59mL/min/1.73 m2 [facility] Chem S Globulin (S) [Mass/Vol] 3.7 g/dL Normal 1.4 - 4.0 gm/dL FT Remisol Glucose [Mass/Vol] 153 mg/dL Normal 55 - 199 mg/dL [facility] Remisol Potassium [Moles/Vol] 3.9 mmol/L Normal 3.5 - 5.3 mmol/L [facility] Remisol Protein [Mass/Vol] 7.2 g/dL Normal 6.0 - 7.8 gm/dL [facility] Remisol Sodium [Moles/Vol] 136 mmol/L Normal 135 - 145 mmol/L [facility] Remisol Urea nitrogen [Mass/Vol] 17 mg/dL Normal 5 - 21 mg/dL [facility] Remisol Urea nitrogen/Creatinine [Mass ratio] 17 mg/mg Normal 10 - 20 FT Remisol CMPon 04-05-2023 Anion gap [Moles/Vol] 13 mmol/L Normal 6-16 [facility] Comment on above: Performed By: #### 2 918453, 6111813, 1882236, 75057457 ####[facility] [address] [place] [address] Calcium [Mass/Vol] 8.8 mg/dL Low 8.9-11.1 [facility] Comment on above: Performed By: #### 2 263472, 6774066, 4378848, 28274702 ####[facility] [address] [place] [address] Chloride [Moles/Vol] 97 mmol/L Low 101-111 [facility] Comment on above: Performed By: #### 2 919046, 3358050, 0039695, 18248466 ####[facility] [address] [place] [address] CO2 [Moles/Vol] 30 mmol/L Normal 21-31 [facility] Comment on above: Performed By: #### 2 877885, 1456433, 3314427, 98473737 ####[facility] [address] [place] [address] Glucose [Mass/Vol] 153 mg/dL Normal 55-199 [facility] Comment on above: Result Comment: If t his glucose result represents a fasting glucose, interpretation should refer to the following reference range: 55-99 mg/dL Performed By: #### 2 620208, 5774745, 2956763, 35845039 ####[facility] [address] [place] [address] Potassium [Moles/Vol] 3.9 mmol/L Normal 3.5-5.3 [facility] Comment on above: Performed By: #### 2 884926, 8568614, 9850118, 42892219 ####[facility] [address] [place] [address] Sodium [Moles/Vol] 136 mmol/L Normal 135-145 [facility] Comment on above: Performed By: #### 2 539172, 0268312, 7460416, 83958854 ####[facility] [address] [place] [address] Albumin [Mass/Vol] 3.5 g/dL Normal 3.3-5.0 [facility] Comment on above: Performed By: #### 2 585042, 6126804, 3553285, 25403189 ####[facility] [address] [place] [address] Albumin/Globulin (S) [Mass conc ratio] 1.0 Low 1.1-2.2 [facility] Comment on above: Performed By: #### 2 105843, 2685103, 6433165, 96115100 ####[facility] [address] [place] [address] ALP [Catalytic activity/Vol] 51 Int._Unit/L Normal 21-98 [facility] Comment on above: Performed By: #### 2 562389, 9976955, 5413027, 67673281 ####[facility] [address] [place] [address] ALT No additional P-5'-P [Catalytic activity/Vol] 31 Int._Unit/L Normal 6-46 [facility] Comment on above: Performed By: #### 2 134747, 7704152, 8072129, 66626434 ####[address] [place] [address] AST [Catalytic activity/Vol] 41 Int._Unit/L Normal 5-43 [facility] Comment on above: Performed By: #### 2 052732, 4588369, 4330960, 68461859 ####[facility] [address] [place] [address] Bilirubin [Mass/Vol] 0.6 mg/dL Normal 0.0-1.1 [facility] Comment on above: Performed By: #### 2 936781, 3430863, 9921291, 22590224 ####[facility] [address] [place] [address] Creatinine [Mass/Vol] 1.0 mg/dL Normal 0.5-1.3 [facility] Comment on above: Performed By: #### 2 432537, 5376509, 0540808, 83702822 ####[address] [place] [address] Globulin (S) [Mass/Vol] 3.7 g/dL Normal 1.4-4.0 [facility] Comment on above: Performed By: #### 2 882750, 3944440, 2497026, 42516108 ####[facility] [address] [place] [address] Protein [Mass/Vol] 7.2 g/dL Normal 6.0-7.8 [facility] Comment on above: Performed By: #### 2 641046, 2776547, 3290127, 41078993 ####[facility] [address] [place] [address] Urea nitrogen [Mass/Vol] 17 mg/dL Normal 5-21 [facility] Comment on above: Performed By: #### 2 749601, 3057287, 5178873, 15142053 ####[facility] [address] [place] [address] Urea nitrogen/Creatinine [Mass ratio] 17 No Units Normal 10-20 [facility] Comment on above: Performed By: #### 2 854792, 4529289, 8411606, 53401503 ####[facility] [address] [place] [address] Consent for Treatmenton 03-13 Consent for Treatment [id number]#1.00C D:127 Normal [facility] HEMATOLOGYOrdered By: SYSTEM SYSTEM on 04-05-2023 [...] 3.6 E9/L Normal 2.0 - 7.5 E9/L [facility] HemeAutoSS HEMATOLOGYOrdered By: Keturah Bar on 04-05-2023 Erythrocyte distribution width (RBC) [Ratio] 14.5 % High 10.9 - 14.2 % [facility] HemeAutoSS Hematocrit (Bld) [Volume fraction] 39.5 % Normal 37.7 - 49.0 % [facility] HemeAutoSS Hemoglobin (Bld) [Mass/Vol] 13.2 g/dL Low 13.5 - 17.5 gm/dL FT HemeAutoSS MCH (RBC) [Entitic mass] 31.3 pg Normal 27.0 - 34.0 pg FT HemeAutoSS MCHC (RBC) [Mass/Vol] 33.4 g/dL Normal 31.4 - 36.0 gm/dL [facility] HemeAutoSS MCV (RBC) [Entitic vol] 93.8 fL Normal 80.0 - 100.0 fL [facility] HemeAutoSS Platelet mean volume (Bld) [Entitic vol] 7.8 fL Normal 6.4 - 10.8 fL [facility] HemeAutoSS Platelets (Bld) [#/Vol] 152.0 E9/L Normal 150.0 - 500.0 E9/L [facility] HemeAutoSS RBC (Bld) [#/Vol] 4.2 E12/L Low 4.3 - 5.9 E12/L [facility] HemeAutoSS WBC corrected for nucl RBC Auto (Bld) [#/Vol] 6.0 E9/L Normal 4.0 - 11.0 E9/L [facility] HemeAutoSS eGFRon 04-05-2023 GFR/1.73 sq M.predicted among non-blacks MDRD (S/P/Bld) [Vol rate/Area] 78 mL/min/1.73 m2 Normal >=59 [facility] Comment on above: Order Comment: Order added by Discern Expert. 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 Kidney failure is indicated at less than 15 mL/min/1.73m2. Performed By: #### 2 635121, 7913698, 6862047, 88879194 ####[facility] [address] [place] [address] Patient Eval Forms Officeon 04-01-2023 Patient Eval Forms Office [id number]#1.00C D:127 Normal [facility] Consent for Treatmenton 03-12 Consent for Treatment [id number]#1.00C D:127 Normal [facility] Sleep Office/Clinic Noteon 0 03-29-2023 Sleep Office/Clinic Note Normal [facility] Comment on above: Result Comment: Elec tronically Signed By: Chidi ESPINAL, Matty G.\.br\Date and Time Signed: 03/29/23 10:20 EDT Population Healthon 03-21-20 Population Health Normal [facility] C Blood Charcoalon Blood Culture Charcoal Normal [facility] Comment on above: Performed By: #### 1 6658580 ####[address] [place] [address] Blood Culture Charcoal [facility] Comment on above: Performed By: #### 1 7013358 ####[address] [address] .VIPER VENOM MIXING STUDYon 03-18-2023 dRVVT w 1:1 PNP Coag (PPP) [Time] 45.3 second(s) High 0.0-40.4 [facility] Comment on above: Result Comment: Perf ormed at: [facility] [address] [id number] MD Taye Sadler Performed By: #### 3 3409614, 142821829, 70791179, 0768025, 64716462, 6010559, 8537593, 35552037, 9705449 ####[address] [place] [address] Beta-2 Glycoprot.i Aon 03-18 Beta 2 glycoprotein 1 IgA Qn (S) <9 Invalid Interpretation Code 0-25 [facility] Comment on above: Result Comment: The reference interval reflects a 3SD or 99th percentile interval,which is thought to represent a potentially clinically significantresult in accordance with the International Consensus Statement onthe classification criteria for definitive antiphospholipid syndrome(APS). J Thromb Haem 2006;4:295-306. Performed By: #### 3 0199818, 172823260, 77698310, 6468884, 50533371, 1289709, 1424669, 49817776, 8390801 ####[facility] [address] [place] [address] Beta 2 glycoprotein 1 IgG Qn (S) <9 Invalid Interpretation Code 0-20 [facility] Comment on above: Result Comment: The reference interval reflects a 3SD or 99th percentile interval,which is thought to represent a potentially clinically significantresult in accordance with the International Consensus Statement onthe classification criteria for definitive antiphospholipid syndrome(APS). J Thromb Haem 2006;4:295-306. Performed By: #### 3 2282948, 420330014, 41349196, 7869731, 25798108, 5573566, 3088532, 23003518, 8197875 ####[facility] [address] [place] [address] Beta 2 glycoprotein 1 IgM Qn (S) <9 Invalid Interpretation Code 0-32 [facility] Comment on above: Result Comment: The reference interval reflects a 3SD or 99th percentile interval,which is thought to represent a potentially clinically significantresult in accordance with the International Consensus Statement onthe classification criteria for definitive antiphospholipid syndrome(APS). J Thromb Haem 2006;4:295-306.Performed at: [facility] [address] [place], [place] [id number] MD Taye Sadler Performed By: #### 3 0276695, 867924032, 79056281, 1974498, 98555521, 8861780, 2353920, 30236868, 1295681 ####[facility] [address] [place] [address] Consultation Noteon 03-18-20 23 Consultation Note [id number] D:127 Normal [facility] Factor II, DNA Analysison F2 gene c.04055D>A genotype Molgen (Bld/Tiss) Comment Invalid Interpretation Code [facility] Comment on above: Result Comment: Resu [...] in theF2 gene and a c.1601G>A (p. Xuu759Cge) variant in the F5 gene(commonly referred to as Factor V Leiden) have an approximately 20-fold increased risk for venous thromboembolism. Risks are likely willard even higher in more complex genotype combinations involving theF2 c.*97G>A variant and Factor V Leiden (PMID: 54768760). Additionalrisk factors include but are not limited [...] for health care providers to discussresults at [phone] ([phone]).Test Details:Variant analyzed: c.*97G>A, previously referred to as [id number]/Limitations:DNA analysis of the F2 gene (NM_000506.5) was [...] was developed and its performance characteristics determinedby coresystems. It has not been cleared or approved by the Food and DrugAdministration.References:Lonny S, Leonie BURNETT, Geovani R, Nakul WW, González JH; [facility]CM[employer] ProfessionalPractice and Guidelines Committee. Addendum: [place] [employer] consensus statement on factor V Leiden mutationtesting. Evon Med. 2020Oct 14. doi: 10.1038/[id number]-a.PMID: 71882721.Sharif GUERRA. Prothrombin Thrombophilia. 2005Mar 05[Updated 2020Sep 15]. In: Douglas MP, Corey HH, Sierra RA, et al.,editors. Khushi(R) [Internet]. [place] ([place]): [facility]; 8172-5380. Available from:https://www.ncbi.nlm.nih.gov/books/MLV2595/Nathan Patel, Leonie BURNETT, Keagan X, Raghav B, Celina EB, Caroline P, Jamey CS;[facility] [place] Committee. Venous thromboembolismlaboratory testing (factor V Leiden and factor II c.*97G>A),2018 update: a technical standard of the [place] [employer] MedicalGen[employer] and Genomics (ACMG). Evon Med. 2018 Jul;20(12):8162-4429.doi: 10.1038/[id number]-r. Epub 2017May 16. PMID: 93154221. Performed By: #### 3 2402301, 470784099, 61681391, 6234656, 81610949, 9393286, 4951876, 34241619, 1317658 ####[facility] [address] [place] [address] Factor V Leidenon 03-18-2023 F5 gene p.Xap338Lgo [facility] Ql (Bld/Tiss) Comment Invalid Interpretation Code [facility] Comment on above: Result Comment: Resu lt: c.1601G>A (p.Ztl917Fqy) - Not DetectedThis result is not associated with an increased risk for venousthromboembolism. See Additional Clinical Information andComments.Additional Clinical Information:Venous thromboembolism is a multifactorial disease influenced bygenetic, environmental, and circumstantial risk factors. The c.1601G>A(p. Lto870Iyv) variant in the F5 gene, commonly referred [...] F2 c.*97G>A variant andFactor V Leiden (PMID: 67515988). Additional risk factors include butare not limited [...] for health care providers todiscuss results at [phone] ([phone]).Test Details:Variant Analyzed: c.1601G>A (p. Fpa035Yvl), referred to as Factor VLeidenMethods/Limitations:DNA analysis of [...] was developed and its performance characteristicsdetermined by [employer] ([employer]). It has not been cleared or approved by theFood and Drug Administration.References:Lonny S, Leonie BURNETT, Geovani R, Nakul WW, González JH; [employer]CM[employer] ProfessionalPractice and Guidelines Committee. Addendum: [place] [employer] consensus statement on factor V Leiden mutationtesting. Evon Med. 2020Oct 14. doi: 10.1038/[id number]-q.PMID: 51161439.Sharif GUERRA. Factor V Leiden Thrombophilia. 1998December 23(Updated 2017Aug 15). In: Douglas MP, Corey HH, Sierra RA, et al.,editors. Khushi(R) (Internet). [place] ([place]): [facility]; 6996-1147. Available from:https://www.ncbi.nlm.nih.gov/books/OGR2377/Nathan Patel, Leonie BURNETT, Keagan X, Raghav B, Celina EB, Caroline P, Jamey CS;[facility] [place] Committee. Venous thromboembolismlaboratory testing (factor V Leiden and factor II c.*97G>A), 2018update: a technical standard of the [place] [employer] MedicalGenetics and Genomics (ACMG). Evon Med. 2018 Jul;20(12):9773-3017.doi: 10.1038/[id number]-z. Epub 2017May 16. PMID: 26254010. Performed By: #### 3 4773702, 131354393, 56048383, 3407232, 48682749, 7528698, 6983422, 31699976, 6405562 ####[facility] [address] [place] [address] Lupus Anticoagon 03-18-2023 aPTT.lupus sensitive Coag (PPP) [Time] 32.6 second(s) Invalid Interpretation Code 0.0-43.5 [facility] Comment on above: Performed By: #### 3 4448954, 317039323, 27640467, 3789047, 43012279, 1603005, 0789229, 24641896, 6000254 ####[address] [place] [address] dRVVT Coag (PPP) [Time] 50.9 second(s) High 0.0-47.0 [facility] Comment on above: Result Comment: Perf ormed at: [address] [id number] MD Taye Sadler Performed By: #### 3 3637458, 184204678, 82422150, 2847639, 02324974, 3191763, 9247200, 97448593, 5259179 ####[address] [address] Lupus anticoagulant two screening tests W Reflex Coag (PPP) [Interp] Comment: Invalid Interpretation Code [facility] Comment on above: Result Comment: No l upus anticoagulant was detected. These results are consistent withspecific inhibitors to one or more common pathway factors (X, V, II orfibrinogen).Performed at: [address] [id number] MD Taye Sadler Performed By: #### 3 0061655, 210703736, 39206327, 2787746, 80111869, 0312679, 8703714, 27846778, 1426492 ####[address] [place] [address] dRVVT CONFIRMon 03-18-2023 dRVVT/dRVVT.excess phospholipid Coag (PPP) [Ratio] 0.9 ratio Invalid Interpretation Code 0.8-1.2 [facility] Comment on above: Result Comment: Perf ormed at: [facility] [address] [place], [place] [id number] MD Taye Sadler Performed By: #### 3 2353136, 309967289, 82638365, 7466044, 97683691, 4054480, 0479890, 05372892, 5521322 ####[facility] [address] [place] [address] Auto Diffon 03-13-2023 Basophils/100 WBC (Bld) 0.6 % Normal 0.0-2.0 [facility] Comment on above: Order Comment: Order Added by Discern Expert. Performed By: #### 2 851923, 8810009, 3022100, 8943512, 6007802, 09881608, 31498271, 07324702 ####[address] [address] Basophils/Leukocyte s Auto (Bld) [Pure # fraction] 0.1 E9/L Normal 0.0-0.2 [facility] Comment on above: Order Comment: Order Added by Discern Expert. Performed By: #### 2 325576, 7255007, 8158949, 5772090, 8822572, 28645821, 87213664, 79048960 ####[facility] [address] [place] [address] Eosinophils/100 WBC (Bld) 2.2 % Normal 0.0-8.0 [facility] Comment on above: Order Comment: Order Added by Discern Expert. Performed By: #### 2 205584, 6056704, 9876625, 8808932, 4604823, 49271760, 34673266, 65428977 ####[facility] [address] [place] [address] Eosinophils/Leukocy [place] Auto (Bld) [Pure # fraction] 0.2 E9/L Normal 0.0-0.5 [facility] Comment on above: Order Comment: Order Added by Discern Expert. Performed By: #### 2 556438, 5210291, 1736011, 9054308, 8390596, 82624741, 03443644, 25340749 ####[address] [place] [address] Lymphocytes/100 WBC (Bld) 20.6 % Normal 14.0-50.0 [facility] Comment on above: Order Comment: Order Added by Discern Expert. Performed By: #### 2 312199, 9056525, 2661139, 0067651, 5400541, 18252750, 35035990, 57392790 ####[address] [address] Lymphocytes/Leukocy [place] Auto (Bld) [Pure # fraction] 1.8 E9/L Normal 1.0-4.0 [facility] Comment on above: Order Comment: Order Added by Discern Expert. Performed By: #### 2 303401, 7237779, 9028543, 0889865, 2146607, 76505257, 15345469, 41759235 ####[address] [address] Monocytes/100 WBC (Bld) 7.6 % Normal 4.0-14.0 [facility] Comment on above: Order Comment: Order Added by Discern Expert. Performed By: #### 2 695719, 9068512, 9658680, 3333404, 4571251, 60292918, 69037081, 45060225 ####[address] [address] Monocytes/Leukocyte s Auto (Bld) [Pure # fraction] 0.7 E9/L Normal 0.2-1.0 [facility] Comment on above: Order Comment: Order Added by Discern Expert. Performed By: #### 2 234754, 4387227, 7491949, 2598909, 4743922, 67968376, 84318461, 38097105 ####[address] [place] [address] Neutrophils/100 WBC (Bld) 69.0 % Normal 36.0-75.0 [facility] Comment on above: Order Comment: Order Added by Discern Expert. Performed By: #### 2 452680, 7884405, 8312068, 6768965, 4627673, 48974685, 60281397, 86392081 ####[facility] [address] [place] [address] Neutrophils/Leukocy camden Auto (Bld) [Pure # fraction] 6.1 E9/L Normal 2.0-7.5 [facility] Comment on above: Order Comment: Order Added by Discern Expert. Performed By: #### 2 401718, 7571263, 4689720, 0644031, 0711204, 20186820, 83702320, 65686144 ####[facility] [address] [place] [address] BMPon 03-13-2023 Creatinine [Mass/Vol] 0.9 mg/dL Normal 0.5-1.3 [facility] Comment on above: Performed By: #### 2 447346, 4137573, 4735384, 6852886, 4481317, 38771593, 84153751, 88553466 ####[facility] [address] [place] [address] Urea nitrogen [Mass/Vol] 15 mg/dL Normal 5-21 [facility] Comment on above: Performed By: #### 2 822254, 2815314, 5906431, 9908759, 9708762, 19626974, 55186479, 27623379 ####[facility] [address] [place] [address] Urea nitrogen/Creatinine [Mass ratio] 17 No Units Normal 10-20 [facility] Comment on above: Performed By: #### 2 226766, 4793106, 4893390, 0939265, 7268642, 88752381, 04269336, 13994538 ####[facility] [address] [place] [address] Anion gap [Moles/Vol] 12 mmol/L Normal 6-16 [facility] Comment on above: Performed By: #### 2 608380, 0051795, 9383520, 6553121, 2645099, 12706900, 36633757, 66906257 ####[facility] [address] [place] [address] Calcium [Mass/Vol] 8.6 mg/dL Low 8.9-11.1 [facility] Comment on above: Performed By: #### 2 418577, 4296067, 2375174, 7727710, 0726386, 91607769, 66549448, 65885783 ####[facility] [address] [place] [address] Chloride [Moles/Vol] 103 mmol/L Normal 101-111 [facility] Comment on above: Performed By: #### 2 608371, 4471403, 1354274, 1092965, 4605651, 37770872, 78639602, 36239885 ####[facility] [address] [place] [address] CO2 [Moles/Vol] 26 mmol/L Normal 21-31 [facility] Comment on above: Performed By: #### 2 330404, 8995780, 6402843, 4585738, 5553550, 73829237, 93817044, 84722430 ####[facility] [address] [place] [address] Glucose [Mass/Vol] 124 mg/dL Normal 55-199 [facility] Comment on above: Result Comment: If t his glucose result represents a fasting glucose, interpretation should refer to the following reference range: 55-99 mg/dL Performed By: #### 2 817793, 9787279, 0093314, 3208509, 9097089, 06184253, 09661845, 82727659 ####[facility] [address] [place] [address] Potassium [Moles/Vol] 4.0 mmol/L Normal 3.5-5.3 [facility] Comment on above: Performed By: #### 2 368093, 3421877, 1426347, 1832983, 8702844, 18736605, 15424158, 38222854 ####[facility] [address] [place] [address] Sodium [Moles/Vol] 137 mmol/L Normal 135-145 [facility] Comment on above: Performed By: #### 2 824854, 7820339, 9826166, 8041967, 3136891, 39502474, 22739121, 50557137 ####[facility] [address] [place] [address] BNPon 03-13-2023 Int Ctr BNP Pass Normal [facility] Comment on above: Performed By: #### 2 710676, 9727233, 5013403, 7859936, 7596053, 05517412, 48679269, 58646717 ####[facility] [address] [place] [address] Natriuretic peptide B (Bld) [Mass/Vol] 16 pg/mL Normal 5-80 [facility] Comment on above: Performed By: #### 2 613945, 5758364, 5189217, 8289026, 2810387, 53445540, 06689130, 23666542 ####[facility] [address] [place] [address] CBC w/ Auto Diffon 3 Erythrocyte distribution width (RBC) [Ratio] 14.6 % High 10.9-14.2 [facility] Comment on above: Performed By: #### 2 067502, 4994699, 7170169, 6752616, 6718373, 59268432, 00934867, 12416107 ####[facility] [address] [place] [address] Hematocrit (Bld) [Volume fraction] 38.2 % Normal 37.7-49.0 [facility] Comment on above: Performed By: #### 2 178595, 0864589, 8759660, 9051095, 5318517, 60989287, 20222469, 63900871 ####[facility] [address] [place] [address] Hemoglobin (Bld) [Mass/Vol] 13.0 g/dL Low 13.5-17.5 [facility] Comment on above: Performed By: #### 2 608936, 9602265, 2677327, 2064129, 3861260, 17380304, 99173825, 04287896 ####[facility] [address] [place] [address] MCH (RBC) [Entitic mass] 31.5 pg Normal 27.0-34.0 [facility] Comment on above: Performed By: #### 2 890036, 8963803, 2736880, 0835182, 4490397, 20452574, 40260653, 86652429 ####[address] [address] MCHC (RBC) [Mass/Vol] 34.0 g/dL Normal 31.4-36.0 [facility] Comment on above: Performed By: #### 2 296609, 9283744, 5283879, 3357855, 4321026, 41822758, 50978897, 91594995 ####[address] [address] MCV (RBC) [Entitic vol] 92.7 fL Normal 80.0-100.0 [facility] Comment on above: Performed By: #### 2 477572, 8394179, 0266260, 9504055, 9218329, 98980559, 41683440, 40227418 ####[address] [address] Platelet mean volume (Bld) [Entitic vol] 7.9 fL Normal 6.4-10.8 [facility] Comment on above: Performed By: #### 2 829597, 4124235, 6751462, 8010604, 6266292, 73752917, 02485555, 38693441 ####[address] [address] Platelets (Bld) [#/Vol] 137.0 E9/L Low 150.0-500.0 [facility] Comment on above: Performed By: #### 2 860959, 5130721, 3430168, 5166535, 3874861, 16786437, 67329382, 22991299 ####[facility] [address] [place] [address] RBC (Bld) [#/Vol] 4.1 E12/L Low 4.3-5.9 [facility] Comment on above: Performed By: #### 2 817733, 2537084, 7329390, 7854111, 0099796, 79390364, 98236301, 19421237 ####[facility] [address] [place] [address] WBC corrected for nucl RBC Auto (Bld) [#/Vol] 8.9 E9/L Normal 4.0-11.0 [facility] Comment on above: Performed By: #### 2 174165, 4842220, 7090478, 7359671, 1369753, 30058622, 29601685, 77482936 ####[facility] [address] [place] [address] CHEMISTRYOrdered By: SYSTEM SYSTEM on 03-13-2023 Anion gap [Moles/Vol] 12 mmol/L Normal 6 - 16 mEq/L [facility] Remisol Calcium [Mass/Vol] 8.6 mg/dL Low 8.9 [...] rate/Area] 89 mL/min/1.73 m2 Normal >=59mL/min/1.73 m2 [facility] Chem S Glucose [Mass/Vol] 124 mg/dL Normal 55 - 199 mg/dL FT Remisol Lactate [Mass/Vol] 3.0 mmol/L High 0.5 - 2.2 mmol/L [facility] Remisol Potassium [Moles/Vol] 4.0 mmol/L Normal 3.5 - 5.3 mmol/L [facility] Remisol Sodium [Moles/Vol] 137 mmol/L Normal 135 - 145 mmol/L [facility] Remisol Troponin I.cardiac [Mass/Vol] 10.20 pg/mL Low 15.90 - 38.40 pg/mL [facility] Remisol Urea nitrogen [Mass/Vol] 15 mg/dL Normal 5 - 21 mg/dL [facility] Urea nitrogen/Creatinine [Mass ratio] 17 mg/mg Normal 10 - 20 [facility] CHEMISTRYOrdered By: Yandel Caballero on 03-13-2023 Natriuretic peptide B (Bld) [Mass/Vol] 16 pg/mL Normal 5 - 80 pg/mL [facility] HemeKingstonSS CRPon 03-13-2023 CRP [Mass/Vol] 1.3 mg/dL Normal <=1.9 [facility] Comment on above: Performed By: #### 2 985289, 0833867, 3739538, 0242001, 0729899, 29257856, 69690605, 88280155 ####[facility] [address] [place] [address] Consenton 03-13-2023 Consent [id number]#1.00 CD:127 Normal [facility] Consent for Treatmenton Consent for Treatment [id number]#1.00C D:127 Normal [facility] Discharge Instructionson Discharge Instructions [id number]#1.00 CD:127 Normal [facility] ED Clinical Summaryon 2022 ED Clinical Summary Normal [facility] ED Note-Physicianon 03-13-20 23 ED Note-Physician Normal [facility] Comment on above: Result Comment: Elec tronically Signed By: Dianne LEE, Jordan S.\.br\Date and Time Signed: 03/13/23 04:21 EDT ED Patient Education Noteon 03-13-2023 ED Patient Education Note Normal [facility] ED Patient Summaryon 023 ED Patient Summary Normal [facility] HEMATOLOGYOrdered By: SYSTEM SYSTEM on 03-13-2023 [...] 8.9 E9/L Normal 4.0 - 11.0 E9/L [facility] HemeAutoSS Lab Miscellaneous-LCon 03-13 Lab Miscellaneous COMMENT Invalid Interpretation Code [facility] Comment on above: Result Comment: Test Ordered: 038163 Protein C- FunctionalProtein C-Functional 138 % BNReference Range: 73-180Performed at: [facility] [address] [place], [place] [id number] PhD Quinn Pinedo Performed By: #### 1 979232849 ####[facility] [address] [place] [address] Result Comment: Test Ordered: 065157 Protein S-AntigenProtein S, Total 97 % BNReference Range: 60-150This test was developed and its performance characteristicsdetermined by [employer] ([employer]). It has not been cleared or approvedby the Food and Drug Administration.Protein S, Free 118 % BNReference Range: 61-136Performed at: [facility] [address]ms[address] [place], [place] [id number] PhD Quinn Pinedo Result Comment: Test Ordered: 903468 Protein S-FunctionalProtein S-Functional 112 % BNReference Range: 63-140Protein S activity may be falsely increased (masking an abnormal, lowresult) in patients receiving direct Xa inhibitor (e.g., rivaroxaban,apixaban, edoxaban) or a direct thrombin inhibitor (e.g., dabigatran)anticoagulant treatment due to assay interference by these drugs.Performed at: [facility] [place], [place] [id number] PhD Quinn Pinedo Lactic Acidon 03-13-2023 Lactate [Mass/Vol] 3.0 mmol/L High 0.5-2.2 [facility] Comment on above: Performed By: #### 2 842356, 7141957, 0906758, 1681546, 1746204, 43800119, 07793288, 49232769 ####[facility] [address] [place] [address] Troponin 0 Hr.on 03-13-2023 Troponin I.cardiac [Mass/Vol] 10.20 pg/mL Low 15.90-38.40 [facility] Comment on above: Result Comment: The 95% CI (Confidence Interval) PPV (Positive Predictive Value) for myocardial infarction in females is 38 pg/mL, in males 51 pg/mL. The results should be used in conjunction with clinical conditions of myocardial infarction.(Access High Sensitivity Troponin I Instructions For Use, Nikky Kristopher, March 2018) Performed By: #### 2 796140, 3676188, 4324637, 6009477, 0002434, 14612476, 33252947, 43841040 ####[facility] [address] [place] [address] eGFRon 03-13-2023 GFR/1.73 sq M.predicted among non-blacks MDRD (S/P/Bld) [Vol rate/Area] 89 mL/min/1.73 m2 Normal >=59 [facility] Comment on above: Order Comment: Order added by Discern Expert. 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 Kidney failure is indicated at less than 15 mL/min/1.73m2. Performed By: #### 2 819500, 2568115, 1540729, 3722573, 6864454, 47847230, 05977837, 96860896 ####[address] [place] [address] LISA ABS Ig G,M,Aon 3 Cardiolipin IgA IA Qn (S) <9 Invalid Interpretation Code 0-11 [facility] Comment on above: Result Comment: Nega tive: <12Indeterminate: 12 - 20Low-Med Positive: >20 - 80High Positive: >80Performed at: [facility] [address]merIgusqa[address] [place], [place] [id number] PhD Quinn Pinedo Performed By: #### 1 6721664 ####[address] [address] Cardiolipin IgG IA Qn (S) <9 Invalid Interpretation Code 0-14 [facility] Comment on above: Result Comment: Nega tive: <15Indeterminate: 15 - 20Low-Med Positive: >20 - 80High Positive: >80 Performed By: #### 1 2668714 ####[address] [address] Cardiolipin IgM IA Qn (S) <9 Invalid Interpretation Code 0-12 [facility] Comment on above: Result Comment: Nega tive: <13Indeterminate: 13 - 20Low-Med Positive: >20 - 80High Positive: >80 Performed By: #### 1 0214017 ####[address] [address] Auto Diffon 03-11-2023 Basophils/100 WBC (Bld) 1.0 % Normal 0.0-2.0 [facility] Comment on above: Order Comment: Order Added by Discern Expert. Performed By: #### 3 4619351, 366452415, 74157387, 6674454, 79310269, 2550472, 1902369, 88170838, 1031356 ####[address] [address] Basophils/Leukocyte s Auto (Bld) [Pure # fraction] 0.1 E9/L Normal 0.0-0.2 [facility] Comment on above: Order Comment: Order Added by Discern Expert. Performed By: #### 3 5208978, 022844034, 35761967, 6863521, 96200090, 2533169, 0161858, 09325940, 4863573 ####[facility] [address] [place] [address] Eosinophils/100 WBC (Bld) 2.1 % Normal 0.0-8.0 [facility] Comment on above: Order Comment: Order Added by Discern Expert. Performed By: #### 3 9768102, 020344887, 99387864, 3261515, 93491980, 5101776, 5352739, 95761889, 8291985 ####[address] [place] [address] Eosinophils/Leukocy [place] Auto (Bld) [Pure # fraction] 0.2 E9/L Normal 0.0-0.5 [facility] Comment on above: Order Comment: Order Added by Discern Expert. Performed By: #### 3 6771628, 588888263, 64993710, 9539585, 92885953, 6033733, 8016422, 41356020, 1925242 ####[address] [place] [address] Lymphocytes/100 WBC (Bld) 23.1 % Normal 14.0-50.0 [facility] Comment on above: Order Comment: Order Added by Discern Expert. Performed By: #### 3 2710445, 541668117, 43875579, 0908570, 25663452, 1569703, 1413528, 42754779, 4780144 ####[facility] [address] [place] [address] Lymphocytes/Leukocy [place] Auto (Bld) [Pure # fraction] 1.7 E9/L Normal 1.0-4.0 [facility] Comment on above: Order Comment: Order Added by Rudi Expert. Performed By: #### 3 4022700, 935709327, 07725765, 1600186, 69754633, 2025207, 8574529, 18331209, 1659039 ####[address] [place] [address] Monocytes/100 WBC (Bld) 7.3 % Normal 4.0-14.0 [facility] Comment on above: Order Comment: Order Added by Discern Expert. Performed By: #### 3 0744395, 704017960, 90599310, 7441306, 53312152, 7999155, 6824855, 31134074, 0824153 ####[address] [place] [address] Monocytes/Leukocyte s Auto (Bld) [Pure # fraction] 0.6 E9/L Normal 0.2-1.0 [facility] Comment on above: Order Comment: Order Added by Discern Expert. Performed By: #### 3 4396834, 705549510, 26732606, 8408845, 67191171, 4034648, 4170333, 37352386, 7901584 ####[address] [address] Neutrophils/100 WBC (Bld) 66.5 % Normal 36.0-75.0 [facility] Comment on above: Order Comment: Order Added by Discern Expert. Performed By: #### 3 6185038, 205281331, 91742698, 7248527, 11593026, 0884587, 8118190, 65765257, 6243297 ####[address] [place] [address] Neutrophils/Leukocy [place] Auto (Bld) [Pure # fraction] 5.0 E9/L Normal 2.0-7.5 [facility] Comment on above: Order Comment: Order Added by Discern Expert. Performed By: #### 3 7201839, 330792807, 89734459, 2264039, 00386180, 5671658, 6982073, 84271775, 6945621 ####[address] [place] [address] CBC w/ Auto Diffon 3 Erythrocyte distribution width (RBC) [Ratio] 14.6 % High 10.9-14.2 [facility] Comment on above: Performed By: #### 3 1554881, 214859874, 11068069, 4260763, 57715882, 2399619, 8849641, 64585577, 8304033 ####[facility] [address] [place] [address] Hematocrit (Bld) [Volume fraction] 39.8 % Normal 37.7-49.0 [facility] Comment on above: Performed By: #### 3 8446120, 999525452, 78741556, 6939274, 46036126, 8975681, 3353377, 70316405, 0401320 ####[address] [place] [address] Hemoglobin (Bld) [Mass/Vol] 13.3 g/dL Low 13.5-17.5 [facility] Comment on above: Performed By: #### 3 3173798, 658447760, 49566271, 4122649, 03823340, 8671590, 7729747, 86845545, 1026368 ####[facility] [address] [place] [address] MCH (RBC) [Entitic mass] 31.2 pg Normal 27.0-34.0 [facility] Comment on above: Performed By: #### 3 6760937, 975151493, 96383346, 9714262, 42838701, 0061709, 0682638, 67996480, 7291475 ####[address] [place] [address] MCHC (RBC) [Mass/Vol] 33.4 g/dL Normal 31.4-36.0 [facility] Comment on above: Performed By: #### 3 3745539, 140924503, 85576453, 6502646, 43781287, 8786416, 0726827, 84799839, 2263480 ####[address] [place] [address] MCV (RBC) [Entitic vol] 93.2 fL Normal 80.0-100.0 [facility] Comment on above: Performed By: #### 3 2844701, 212458686, 16083995, 7020984, 77255969, 2964743, 4094571, 12859334, 8803802 ####[facility] [address] [place] [address] Platelet mean volume (Bld) [Entitic vol] 8.1 fL Normal 6.4-10.8 [facility] Comment on above: Performed By: #### 3 0923466, 751329418, 32349399, 8484729, 90103215, 9095360, 3266813, 55839685, 4610136 ####[facility] [address] [place] [address] Platelets (Bld) [#/Vol] 174.0 E9/L Normal 150.0-500.0 [facility] Comment on above: Performed By: #### 3 9949093, 028133786, 40554865, 1823768, 69599925, 8604193, 5409888, 35022289, 2992654 ####[facility] [address] [place] [address] RBC (Bld) [#/Vol] 4.3 E12/L Normal 4.3-5.9 [facility] Comment on above: Performed By: #### 3 7805416, 729507244, 94237294, 5376495, 76005510, 8635264, 6610836, 00843030, 2257419 ####[facility] [address] [place] [address] WBC corrected for nucl RBC Auto (Bld) [#/Vol] 7.5 E9/L Normal 4.0-11.0 [facility] Comment on above: Performed By: #### 3 3527868, 779433601, 39324441, 8150746, 63071369, 5393109, 7585876, 91437880, 1933557 ####[address] [place] [address] COAGULATIONOrdered By: Brandie Sams on 03-11-2023 Fibrin D-dimer FEU (PPP) [Mass/Vol] 1012 ng/mL FEU Invalid Interpretation Code 215 - 500 ng/mL FEU [facility] Auto Coag Comment on above: Result Comment: Resu lts Called To Onc/Jerica Sánchez By And Read Back For Confirmation On 03/11/2023 12:57:21 EDT Results Verified By Repeat Analysis Consent for Treatmenton 02-11 Consent for Treatment [id number]#1.00C D:127 Normal [facility] D-Dimeron 03-11-2023 Fibrin D-dimer FEU (PPP) [Mass/Vol] 1012 [id number] Abnormal 215-500 [facility] Comment on above: Result Comment: Resu lts Called To Onc/Jerica Sánchez By BC And Read Back For Confirmation On 03/11/2023 [...] skin infectionsLiver cirrhosisPregnancy Performed By: #### 3 6794414, 737920548, 49630411, 3342286, 45237118, 9921668, 0729365, 97404221, 2552977 ####[facility] [address] [place] [address] HEMATOLOGYOrdered By: SYSTEM SYSTEM on 03-11-2023 Basophils/100 WBC (Bld) 1.0 % Normal 0.0 - 2.0 % [facility] HemeAutoSS Basophils/Leukocyte s Auto (Bld) [Pure # [...] 93.2 fL Normal 80.0 - 100.0 fL [facility] HemeAutoSS Platelet mean volume (Bld) [Entitic vol] 8.1 fL Normal 6.4 - 10.8 fL [facility] HemeAutoSS Platelets (Bld) [#/Vol] 174.0 E9/L Normal 150.0 - 500.0 E9/L [facility] HemeAutoSS RBC (Bld) [#/Vol] 4.3 E12/L Normal 4.3 - 5.9 E12/L [facility] HemeAutoSS WBC corrected for nucl RBC Auto (Bld) [#/Vol] 7.5 E9/L Normal 4.0 - 11.0 E9/L [facility] HemeAutoSS Lab Miscellaneous-LCon 03-11 Test Code 532715 Invalid Interpretation Code [facility] Comment on above: Performed By: #### 1 [id number] ####[facility] [address] [place] [address] Test Code 667785 Invalid Interpretation Code [facility] Comment on above: Performed By: #### 1 [id number] ####[facility] [address] [place] [address] Test Code 895842 Invalid Interpretation Code [facility] Comment on above: Performed By: #### 1 812575885 ####[facility] [address] [place] [address] Test Name Protein C Invalid Interpretation Code [facility] Comment on above: Performed By: #### 1 436696059 ####[facility] [address] [place] [address] Test Name Protein S Funct Invalid Interpretation Code [facility] Comment on above: Performed By: #### 1 [id number] ####[facility] [address] [place] [address] Test Name Protein S Antig Invalid Interpretation Code [facility] Comment on above: Performed By: #### 1 138227099 ####[facility] [address] [place] [address] Oncology Progress Noteon Oncology Progress Note Normal [facility] Reference Laboratory Testing Ordered By: Sylwia Lubin on 03-11-2023 Test Code 287714 Invalid Interpretation Code [facility] SendOutsSS Test Code 704465 Invalid Interpretation Code [facility] SendOutsSS Test Code 073143 Invalid Interpretation Code [facility] SendOutsSS Test Name Protein C Invalid Interpretation Code [facility] SendOuts Test Name Protein S Funct Invalid Interpretation Code [facility] SendOuts Test Name Protein S Antig Invalid Interpretation Code [facility] SendOutsSS [facility] Normal [facility] Ambulatory Visit Summaryon 0 03-01-2023 Ambulatory Visit Summary Invalid Interpretation Code [address], [place] [address]- \.br\ Saturday 11:00 AM EST \.br\ With:\.br\ Where: [facility] Family Medicine Office/Clini c Noteon 03-01-2023 Family Medicine Office/Clinic Note Normal [facility] Comment on above: Result Comment: Elec tronically Signed By: Kevin LOBO MD\.br\Date and Time Signed: 03/01/23 13:42 EDT Patient Educationon 03-01-20 Patient Education Normal [facility] C Blood Charcoalon Blood Culture Charcoal Normal [facility] Comment on above: Performed By: #### 1 6338875 ####[facility] [address] [place] [address] Blood Culture Charcoal Normal [facility] Comment on above: Performed By: #### 1 5468541 ####[facility] [address] [place] [address] Prescriptions/Work Noteson 0 02-21-2023 Prescriptions/Work Notes [id number]#1.00 CD:127 Normal [facility] Discharge Instructionson Discharge Instructions [id number]#[id number] CD:127 Normal [facility] Population Healthon 02-21-20 23 [facility] Normal [facility] BMPon 02-19-2023 Anion gap [Moles/Vol] 10 mmol/L Normal -16 [facility] Comment on above: Performed By: #### 2 426933, 6485562, 00593918 ####[facility] [address] [place] [address] Calcium [Mass/Vol] 9.1 mg/dL Normal 8.9-11.1 [facility] Comment on above: Performed By: #### 2 722108, 0017228, 73652285 ####[facility] [address] [place] [address] Chloride [Moles/Vol] 99 mmol/L Low 101-111 [facility] Comment on above: Performed By: #### 2 117286, 4304538, 46482703 ####[facility] [address] [place] [address] CO2 [Moles/Vol] 32 mmol/L High 21-31 [facility] Comment on above: Performed By: #### 2 [id number] ####[facility] [address] [place] [address] Creatinine [Mass/Vol] 0.9 mg/dL Normal 0.5-1.3 [facility] Comment on above: Performed By: #### 2 [id number], [id number] ####[facility] [address] [place] [address] Glucose [Mass/Vol] 148 mg/dL Normal 55-199 [facility] Comment on above: Result Comment: If t his glucose result represents a fasting glucose, interpretation should refer to the following reference range: 55-99 mg/dL Performed By: #### 2 827782, 5766983, 68684976 ####[facility] [address] [place] [address] Potassium [Moles/Vol] 4.0 mmol/L Normal 3.5-5.3 [facility] Comment on above: Performed By: #### 2 923963, 4751423, 71973058 ####[facility] [address] [place] [address] Sodium [Moles/Vol] 137 mmol/L Normal 135-145 [facility] Comment on above: Performed By: #### 2 642447, 2051249, 60831296 ####[facility] [address] [place] [address] Urea nitrogen [Mass/Vol] 10 mg/dL Normal 5-21 [facility] Comment on above: Performed By: #### 2 306438, 0465528, 20154348 ####[facility] [address] [place] [address] Urea nitrogen/Creatinine [Mass ratio] 11 No Units Normal 10-20 [facility] Comment on above: Performed By: #### 2 384869, 4488747, 05626259 ####[facility] [address] [place] [address] CHEMISTRYOrdered By: Lab ROP User on 02-19-2023 Glucose [Mass/Vol] 159 mg/dL High 55 - 99 mg/dL FTM C POC Subsection Comment on above: Result Comment: Georgette palacios RN/ POC Device SN [id number] Invalid Interpretation Code FT POC Subsection POC User ID [id number] Invalid Interpretation Code FT POC Subsection POC Username ISABELL SAWYER Invalid Interpretation Code [facility] POC Subsection Glucose [Mass/Vol] 176 mg/dL High 55 - 99 mg/dL FTM C POC Subsection Comment on above: Result Comment: Georgette palacios RN/ POC Device SN [id number] Invalid Interpretation Code FT POC Subsection POC User ID [id number] Invalid Interpretation Code FT POC Subsection POC Username DEBRA GOMEZ Invalid Interpretation Code FT POC Subsection Glucose [Mass/Vol] 152 mg/dL High 55 - 99 mg/dL FTM C POC Subsection Comment on above: Result Comment: Georgette palacios RN/ POC Device SN [id number] Invalid Interpretation Code FT POC Subsection POC User ID [id number] Invalid Interpretation Code FT POC Subsection POC Username DEBRA GOMEZ Invalid Interpretation Code [facility] POC Subsection CHEMISTRYOrdered By: SYSTEM SYSTEM on 02-19-2023 Anion gap [Moles/Vol] 10 mmol/L Normal 6 - 16 mEq/L FT Remisol Calcium [Mass/Vol] 9.1 mg/dL Normal 8.9 - 11.1 mg/dL FT Remisol Chloride [Moles/Vol] 99 mmol/L Low 101 - 111 mmol/L FT Remisol CO2 [Moles/Vol] 32 mmol/L High 21 - 31 mmol/L [facility] Remisol Creatinine [Mass/Vol] 0.9 mg/dL Normal 0.5 - 1.3 mg/dL [facility] Remisol GFR/1.73 sq M.predicted among non-blacks MDRD (S/P/Bld) [Vol rate/Area] 89 mL/min/1.73 m2 Normal >=59mL/min/1.73 m2 [facility] Chem S Glucose [Mass/Vol] 148 mg/dL Normal 55 - 199 mg/dL [facility] Remisol Magnesium [Mass/Vol] 1.7 mg/dL Normal 1.3 - 2.4 mg/dL [facility] Remisol Potassium [Moles/Vol] 4.0 mmol/L Normal 3.5 - 5.3 mmol/L [facility] Remisol Sodium [Moles/Vol] 137 mmol/L Normal 135 - 145 mmol/L [facility] Remisol Urea nitrogen [Mass/Vol] 10 mg/dL Normal 5 - 21 mg/dL [facility] Remisol Urea nitrogen/Creatinine [Mass ratio] 11 mg/mg Normal 10 - 20 [facility] Remisol COAGULATIONOrdered By: Joana Heart on 02-19-2023 aPTT Coag (PPP) [Time] 70.2 s High 25.1 - 36.5 second(s) [facility] Auto Coag INR Coag (PPP) [Relative time] 1.0 {INR} Invalid Interpretation Code FT Auto Coag PT Coag (PPP) [Time] 11.3 s Normal 9.4 - 12.5 second(s) FT Auto Coag aPTT Coag (PPP) [Time] 74.4 s High 25.1 - 36.5 second(s) [facility] Auto Coag COAGULATIONOrdered By: Warren Collins on 02-19-2023 aPTT Coag (PPP) [Time] 77.6 s High 25.1 - 36.5 second(s) [facility] Auto Coag INR Coag (PPP) [Relative time] 1.1 {INR} Invalid Interpretation Code FT Auto Coag PT Coag (PPP) [Time] 12.5 s Normal 9.4 - 12.5 second(s) [facility] Auto Coag Capillary Glucose POCon 02-09 Glucose [Mass/Vol] 159 mg/dL High 55-99 [facility] Comment on above: Result Comment: Georgette palacios RN/ Performed By: #### 2 [id number] ####[facility] [address] [place] [address] Glucose [Mass/Vol] 176 mg/dL High 55-99 [facility] Comment on above: Result Comment: Georgette palacios RN/ Performed By: #### 2 [id number] ####[facility] [address] [place] [address] Glucose [Mass/Vol] 152 mg/dL High 55-99 [facility] Comment on above: Result Comment: Georgette palacios RN/ Performed By: #### 2 [id number] ####[facility] [address] [place] [address] Discharge Note-Nursingon Discharge Note-Nursing Normal [address] [place] [address]- \.br\ New Follow Up Appointments after Discharge\.br\ Follow Up with Mt GOODEN When: 03/01/2023 01:00 PM EDT\.br\ Comments:\.br\ Your follow up appointment is with Dr. Lobo. Thank you.\.br\ Where:\.br\ [address], [address]\.br\ [place] [address]-\.br\ Business (1)\.br\ Follow Up with [facility] When: \.br\ Comments:\.br\ [facility] will contact you to set up a home visit. Thank you.\.br\ Follow Up with Ralph Jennings When: \.br\ Comments:\.br\ Chronic Venous Insuf\.br\ Please call Kike at Dr. Jennings's office in [place] to make a follow up appointment. The phone number is [phone]. Thank you.\.br\ Where:\.br\ [address]br\ [place] [address]-\.br\ Business (1)\.br\ Follow Up with Matty Murillo When: \.br\ Comments:\.br\ needs PFTs and sleep study\.br\ The central scheduling department at [facility] will need to schedule the PFT's. Please contact Dr. Murillo's offic eto set up a time for your sleep study. 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 Amaro office will contact you to set up an appointment. If you do not hear from them in 3 days, then call [phone] and asked for Oncology/ Hematology department. Thank you.\.br\ Where:\.br\ [facility]\.br\ [address].br\ [place] [address]-\.br\ Medications\.br\ What How Much When Why Instructions Next Dose\.br\ New apixaban (Eliquis 5 mg oral tablet) 2 tabs (10 mg) BID x 7 days then 1 tab bid By Mouth 2 times a day initial fill only Pickup at [facility]/pharmacy #[id number] 02/19 @ 9 PM \.br\ New methocarbamol (Robaxin 500 mg Tab) 2 Tablets By Mouth 4 times a day Duration: 14 Days Pickup at [facility]/pharmacy #[id number] 02/19 @ 9 PM\.br\ Unchanged acetaminophen [...] Unchanged fluticasone nasal (Flonase 0.05 mg/ inh [place]) 2 Sprays Nasal Inhalation Every day Allergic [...] NEEDED, TAKE WHEN TAKING LASIX\.br\ Pharmacy Information\.br\ [facility]/pharmacy #[id number]: [address] [place], [place] [id number] [phone]\.br\ \.br\ What How Much When Comments\.br\ Stop [...] High serum protein level\.br\ HTN (hypertension)\.b r\ [facility] current use of oral hypoglycemic drug\.br\ Numbness [...] pulmonary embolus\.br\ kidney stones\.br\ Left shoulder pain\.br\ [facility] (current) use of anticoagulants\.b r\ Lumbago\.br\ Lumbar [...] The following factors may make you more [facility] Echo Transthoracic Completeo n 02-19-2023 Echo Transthoracic Complete Normal [facility] Inpatient Clinical Summaryon 02-19-2023 Inpatient Clinical Summary Normal [facility] Inpatient Patient Summaryon 02-19-2023 Inpatient Patient Summary Normal [facility] Interdisciplinary Note - J Carlos e Manageron 02-19-2023 Interdisciplinary Note - Tumbler Dyeing Machine Operator Normal [facility] Comment on above: Result Comment: Elec tronically Signed By: Sharmin MARTINEZ, Gladis\.nancy\Date and Time Signed: 02/19/23 13:20 EDT Magnesiumon 02-19-2023 Magnesium [Mass/Vol] 1.7 mg/dL Normal 1.3-2.4 [facility] Comment on above: Performed By: #### 2 204303, 7976763, 38654116 ####[facility] [address] [place] [address] Message from Medicareon 02-09 Message from Medicare [id number]#1.00 CD:127 Normal [facility] PTon 02-19-2023 INR Coag (PPP) [Relative time] 1.0 {INR} Invalid Interpretation Code [facility] Comment on above: Result Comment: INR results are specifically intended to assess patients stabilized on long-term Anticoagulation therapy suggested INR?s ?Less Intensive Anticoagulation? 2.0 ? 3.0Conventional Range 3.0 ? 4.5 Performed By: #### 2 699971, 0320150 ####[facility] [address] [place] [address] PT Coag (PPP) [Time] 11.3 second(s) Normal 9.4-12.5 [facility] Comment on above: Result Comment: 15 [...] the same coagulation reagent and instrumentation as [facility]. Currently there are no coagulation studies available worldwide for children to 14 days, and no normal ranges. Performed By: #### 2 191841, [id number] ####[facility] [address] [place] [address] PT & PTTon 02-19-2023 aPTT Coag (PPP) [Time] 77.6 second(s) High 25.1-36.5 [facility] Comment on above: Result Comment: Para [...] the same coagulation reagent and instrumentation as [facility]. Currently there are no coagulation studies available worldwide for children to 14 days, and no normal ranges. Heparin therapeutic range (represented by Anti-Factor Xa activity of 0.2 - 0.4 U/mL) corresponds to PTT of 56.6 - 109.0 sec. Performed By: #### 1 [id number] ####[facility] [address] [place] [address] INR Coag (PPP) [Relative time] 1.1 {INR} Invalid Interpretation Code [facility] Comment on above: Result Comment: INR results are specifically intended to assess patients stabilized on long-term Anticoagulation therapy suggested INR?s ?Less Intensive Anticoagulation? 2.0 ? 3.0Conventional Range 3.0 ? 4.5 Performed By: #### 1 [id number] ####[facility] [address] [place] [address] PT Coag (PPP) [Time] 12.5 second(s) Normal 9.4-12.5 [facility] Comment on above: Result Comment: 15 [...] the same coagulation reagent and instrumentation as [facility]. Currently there are no coagulation studies available worldwide for children to 14 days, and no normal ranges. Performed By: #### 1 [id number] ####[facility] [address] [place] [address] PTTon 02-19-2023 aPTT Coag (PPP) [Time] 70.2 second(s) High 25.1-36.5 [facility] Comment on above: Result Comment: Para [...] the same coagulation reagent and instrumentation as [facility]. Currently there are no coagulation studies available worldwide for children to 14 days, and no normal ranges. Heparin therapeutic range (represented by Anti-Factor Xa activity of 0.2 - 0.4 U/mL) corresponds to PTT of 56.6 - 109.0 sec. Performed By: #### 2 796510, 5899667 ####[facility] [address] [place] [address] aPTT Coag (PPP) [Time] 74.4 second(s) High 25.1-36.5 [facility] Comment on above: Result Comment: Para [...] the same coagulation reagent and instrumentation as [facility]. Currently there are no coagulation studies available worldwide for children to 14 days, and no normal ranges. Heparin therapeutic range (represented by Anti-Factor Xa activity of 0.2 - 0.4 U/mL) corresponds to PTT of 56.6 - 109.0 sec. Performed By: #### 2 980373 ####[facility] [address] [place] [address] Patient Education - Texton 0 02-19-2023 Patient Education - Text Normal [facility] eGFRon 02-19-2023 GFR/1.73 sq M.predicted among non-blacks MDRD (S/P/Bld) [Vol rate/Area] 89 mL/min/1.73 m2 Normal >=59 [facility] Comment on above: Order Comment: Order added by Discern Expert. 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 Kidney failure is indicated at less than 15 mL/min/1.73m2. Performed By: #### 2 233016, 9201823, 79333574 ####[facility] [address] [place] [address] Ambulatory Visit Summaryon 0 7-10-2023 Ambulatory Visit Summary Normal [facility] Auto DiffOrdered By: SYSTEM SYSTEM on 02-18-2023 Basophils/100 WBC (Bld) 0.7 % Normal 0.0-2.0 [facility] Comment on above: Order Comment: Order Added by Discern Expert. Performed By: #### 2 013511, 81411793, 6039257, 5783702, 17971608, 8214800, 09038472, 29687129 ####[address] [place] [address] Basophils/Leukocyte s Auto (Bld) [Pure # fraction] 0.0 E9/L Normal 0.0-0.2 [facility] Comment on above: Order Comment: Order Added by Discern Expert. Performed By: #### 2 011651, 13770773, 4187444, 9775784, 30702509, 6535273, 30495487, 70670508 ####[address] [place] [address] Eosinophils/100 WBC (Bld) 1.7 % Normal 0.0-8.0 [facility] Comment on above: Order Comment: Order Added by Discern Expert. Performed By: #### 2 873795, 90334568, 7316210, 2129103, 96312743, 3020324, 37415036, 86875476 ####[address] [address] Eosinophils/Leukocy [place] Auto (Bld) [Pure # fraction] 0.1 E9/L Normal 0.0-0.5 [facility] Comment on above: Order Comment: Order Added by Discern Expert. Performed By: #### 2 992329, 76846893, 2975343, 8481085, 74562777, 9949327, 75751033, 14603810 ####[address] [address] Lymphocytes/100 WBC (Bld) 20.6 % Normal 14.0-50.0 [facility] Comment on above: Order Comment: Order Added by Discern Expert. Performed By: #### 2 384043, 10570987, 0677431, 1444171, 80044944, 8784390, 69544024, 86080244 ####[address] [address] Lymphocytes/Leukocy [place] Auto (Bld) [Pure # fraction] 1.5 E9/L Normal 1.0-4.0 [facility] Comment on above: Order Comment: Order Added by Discern Expert. Performed By: #### 2 670718, 88892700, 9701768, 1221787, 06331308, 4072004, 97380424, 29666125 ####[address] [address] Monocytes/100 WBC (Bld) 7.5 % Normal 4.0-14.0 [facility] Comment on above: Order Comment: Order Added by Discern Expert. Performed By: #### 2 820794, 77713993, 4035910, 5931436, 82831285, 6790955, 64147255, 24916322 ####[address] [address] Monocytes/Leukocyte s Auto (Bld) [Pure # fraction] 0.6 E9/L Normal 0.2-1.0 [facility] Comment on above: Order Comment: Order Added by Discern Expert. Performed By: #### 2 289550, 39781758, 6277530, 7356190, 99955605, 9199231, 63676502, 40472892 ####[address] [address] Neutrophils/100 WBC (Bld) 69.5 % Normal 36.0-75.0 [facility] Comment on above: Order Comment: Order Added by Discern Expert. Performed By: #### 2 776851, 96244175, 6339576, 0021300, 78537568, 6219277, 06930335, 71503687 ####[address] [address] Neutrophils/Leukocy [place] Auto (Bld) [Pure # fraction] 5.2 E9/L Normal 2.0-7.5 [facility] Comment on above: Order Comment: Order Added by Discern Expert. Performed By: #### 2 338250, 15494645, 2483403, 9330718, 38971866, 9110876, 83604641, 50879627 ####[facility] [address] [place] [address] BMPOrdered By: SYSTEM SYSTEM on 02-18-2023 Creatinine [Mass/Vol] 0.9 mg/dL Normal 0.5-1.3 [facility] Comment on above: Performed By: #### 2 103346, 43832830, 6100555, 8265010, 65085744, 1483206, 94517435, 19117735 ####[place] [address] [place] [address] Urea nitrogen [Mass/Vol] 14 mg/dL Normal 5-21 [facility] Comment on above: Performed By: #### 2 728513, 44432181, 0517409, 7938649, 15315269, 5571736, 84299020, 38341780 ####[place] [address] [place] [address] Anion gap [Moles/Vol] 13 mmol/L Normal 6-16 [facility] Comment on above: Performed By: #### 2 649851, 43854453, 6919880, 8123931, 08909504, 9441682, 42350033, 91181725 ####[place] [address] [place] [address] Calcium [Mass/Vol] 9.0 mg/dL Normal 8.9-11.1 [facility] Comment on above: Performed By: #### 2 806777, 61203193, 4636946, 6752500, 85253050, 7880075, 43994083, 81880856 ####[place] [address] [place] [address] Chloride [Moles/Vol] 98 mmol/L Low 101-111 [facility] Comment on above: Performed By: #### 2 858537, 38538221, 1552658, 6385909, 90352061, 9231918, 20723859, 54484990 ####[facility] [address] [place] [address] CO2 [Moles/Vol] 27 mmol/L Normal 21-31 [facility] Remisol Comment on above: Performed By: #### 2 234938, 67588298, 8230491, 6807937, 53679785, 4988278, 76022697, 91777200 ####[facility] [address] [place] [address] Glucose [Mass/Vol] 155 mg/dL Normal 55-199 [facility] Remisol Comment on above: Result Comment: If t his glucose result represents a fasting glucose, interpretation should refer to the following reference range: 55-99 mg/dL Performed By: #### 2 404762, 99197038, 0687062, 0653724, 74550320, 0214701, 98979883, 99351131 ####[facility] [address] [place] [address] Potassium [Moles/Vol] 3.7 mmol/L Normal 3.5-5.3 [facility] Remisol Comment on above: Performed By: #### 2 696994, 77589782, 0537517, 9243394, 37474562, 9017313, 14243132, 29803375 ####[facility] [address] [place] [address] Sodium [Moles/Vol] 134 mmol/L Low 135-145 [facility] Remisol Comment on above: Performed By: #### 2 520758, 02448475, 7975492, 3210891, 52921225, 8599471, 25012029, 52431627 ####[facility] [address] [place] [address] BMPon 02-18-2023 Urea nitrogen/Creatinine [Mass ratio] 16 No Units Normal 10-20 [facility] Comment on above: Performed By: #### 2 603902, 35048558, 8093211, 5103926, 02408887, 7609672, 81991409, 47041628 ####[facility] [address] [place] [address] BNPon 02-18-2023 Int Ctr BNP Pass Normal [facility] Comment on above: Performed By: #### 2 007536, 55182563, 0392620, 1686898, 65693238, 8826164, 78131712, 48837374 ####[address] [address] BNPOrdered By: Gonzales up on 02-18-2023 Natriuretic peptide B (Bld) [Mass/Vol] 21 pg/mL Normal 5-80 [facility] Comment on above: Performed By: #### 2 078551, 05886132, 9569279, 0241577, 18913379, 7472855, 37798670, 25638052 ####[address] [address] CBC w/ Auto DiffOrdered By: Rafia Caballero on 02-18-2023 Erythrocyte distribution width (RBC) [Ratio] 14.8 % High 10.9-14.2 [facility] Comment on above: Performed By: #### 2 271286, 75115392, 7368029, 5857853, 90010354, 1673358, 10895205, 27735479 ####[address] [address] Hematocrit (Bld) [Volume fraction] 42.8 % Normal 37.7-49.0 [facility] Comment on above: Performed By: #### 2 789334, 67769345, 8417582, 7994180, 70575035, 5478669, 92767187, 33897450 ####[address] [place] [address] Hemoglobin (Bld) [Mass/Vol] 14.5 g/dL Normal 13.5-17.5 [facility] Comment on above: Performed By: #### 2 269412, 23159254, 3465405, 3528106, 08614980, 4776411, 51598100, 68028372 ####[address] [address] MCH (RBC) [Entitic mass] 31.3 pg Normal 27.0-34.0 [facility] Comment on above: Performed By: #### 2 776454, 02094023, 4606378, 1143393, 72312787, 9408692, 79640269, 02879701 ####[place] [address] [address] MCHC (RBC) [Mass/Vol] 33.9 g/dL Normal 31.4-36.0 [facility] Comment on above: Performed By: #### 2 236844, 04669719, 5730830, 9117378, 48052340, 7944753, 00960030, 12495850 ####[place] [address] [address] MCV (RBC) [Entitic vol] 92.4 fL Normal 80.0-100.0 [facility] Comment on above: Performed By: #### 2 818506, 24995989, 7652519, 5595146, 14818604, 6574490, 47242727, 17165644 ####[place] [address] [address] Platelet mean volume (Bld) [Entitic vol] 8.2 fL Normal 6.4-10.8 [facility] Comment on above: Performed By: #### 2 922866, 23185338, 2056402, 0909977, 35593208, 9620211, 20311125, 92919178 ####[address] [address] Platelets (Bld) [#/Vol] 167.0 E9/L Normal 150.0-500.0 [facility] Comment on above: Performed By: #### 2 019762, 69857424, 0575794, 2920119, 17927732, 3724653, 08670970, 57238068 ####[facility] [address] [place] [address] RBC (Bld) [#/Vol] 4.6 E12/L Normal 4.3-5.9 [facility] Comment on above: Performed By: #### 2 940422, 76415091, 1924916, 3043678, 41770251, 3728057, 57090674, 16292627 ####[facility] [address] [place] [address] WBC corrected for nucl RBC Auto (Bld) [#/Vol] 7.5 E9/L Normal 4.0-11.0 [facility] Comment on above: Performed By: #### 2 888859, 20948931, 8339959, 6496484, 91129576, 4353612, 06733618, 64293914 ####[facility] [address] [place] [address] CHEMISTRYOrdered By: SYSTEM SYSTEM on 02-18-2023 Troponin I.cardiac [Mass/Vol] 13.30 pg/mL Low 15.90 - 38.40 pg/mL [facility] Remisol Troponin I.cardiac [Mass/Vol] 12.90 pg/mL Low 15.90 - 38.40 pg/mL [facility] Remisol Troponin I.cardiac [Mass/Vol] 13.60 pg/mL Low 15.90 - 38.40 pg/mL [facility] Remisol Urea nitrogen/Creatinine [Mass ratio] 16 mg/mg Normal 10 - 20 [facility] Remisol COAGULATIONOrdered By: Nani Cervantest on 02-18-2023 PT Coag (PPP) [Time] 11.2 s Normal 9.4 - 12.5 second(s) [facility] Auto Coag CTA Cheston 02-18-2023 CTA Chest Normal [facility] Capillary Glucose POCon 02-09 Glucose [Mass/Vol] 173 mg/dL High 55-99 [facility] Comment on above: Result Comment: Ashley kati Meter Performed By: #### 2 30113154 ####[facility] [address] [place] [address] Glucose [Mass/Vol] 131 mg/dL High 55-99 [facility] Comment on above: Result Comment: Georgette palacios RN/ Performed By: #### 2 09482340 ####[facility] [address] [place] [address] Consent for Treatmenton 02-09 Consent for Treatment [id number] D:127 Normal [facility] ED Clinical Summaryon 2022 ED Clinical Summary Normal [facility] ED Note-Physicianon 02-19-20 ED Note-Physician Normal [facility] Comment on above: Result Comment: Elec tronically Signed By: Arturo Alvarez M.D.\.br\Date and Time Signed: 02/18/23 12:50 EDT ED Patient Education Noteon 02-18-2023 ED Patient Education Note Normal [facility] ED Patient Summaryon 023 ED Patient Summary Normal [facility] Family Medicine Office/Clini c Noteon 02-18-2023 Family Medicine Office/Clinic Note Normal [facility] Comment on above: Result Comment: Elec tronically Signed By: Mt GOODEN DO, FAAFP\.br\Date and Time Signed: 02/18/23 08:47 EDT [employer] Education Videoon [employer] Color [employer] Education Video Yes Patient Avoiding Infections in the Hospital Normal [facility] Interdisciplinary Note - Raulito singon 02-18-2023 Interdisciplinary Note - Nursing Received wound consult, upon assessment no open areas noted. Patient and stated at times legs will weep. Order put in; May use ABD and Kerlex if legs begin to weep. Normal [facility] MagnesiumOrdered By: SYSTEM SYSTEM on 02-18-2023 Magnesium [Mass/Vol] 1.5 mg/dL Normal 1.3-2.4 [facility] Comment on above: Performed By: #### 2 651060, 96192067, 1876339, 5586783, 92605376, 2902613, 79019791, 46863401 ####[facility] [address] [place] [address] Monitor Recordon 02-18-2023 Monitor Record [id number] CD:127 Normal [facility] Monitor Record [id number] CD:127 Normal [facility] Monitor Record [id number] CD:127 Normal [facility] No Panel InformationOrdered By: [facility] MI[facility] on 02-18-2023 Blood Culture Charcoal No growth at 1 day. Final to follow at 7 days. [facility] [facility] PT & PTTon 02-18-2023 aPTT Coag (PPP) [Time] 29.6 second(s) Normal 25.1-36.5 [facility] Comment on above: Result Comment: Para [...] the same coagulation reagent and instrumentation as [facility]. Currently there are no coagulation studies available worldwide for children to 14 days, and no normal ranges. Heparin therapeutic range (represented by Anti-Factor Xa activity of 0.2 - 0.4 U/mL) corresponds to PTT of 56.6 - 109.0 sec. Performed By: #### 2 929279, 48499410, 7447764, 2501291, 46543132, 7940579, 04751062, 05675430 ####[facility] [address] [place] [address] PT Coag (PPP) [Time] 11.2 second(s) Normal 9.4-12.5 [facility] Comment on above: Result Comment: 15 [...] the same coagulation reagent and instrumentation as [facility]. Currently there are no coagulation studies available worldwide for children to 14 days, and no normal ranges. Performed By: #### 2 418612, 27696754, 3727922, 5261841, 44817886, 4480260, 17255578, 97288202 ####[facility] [address] [place] [address] PT & PTTOrdered By: Catalina King on 02-18-2023 INR Coag (PPP) [Relative time] 1.0 {INR} Invalid Interpretation Code [facility] Auto Coag Comment on above: Result Comment: INR results are specifically intended to assess patients stabilized on long-term Anticoagulation therapy suggested INR?s ?Less Intensive Anticoagulation? 2.0 ? 3.0Conventional Range 3.0 ? 4.5 Performed By: #### 2 404048, 59240655, 1739326, 7469791, 88316914, 8705591, 80825699, 68898322 ####[facility] [address] [facility] [place] [address] PTTon 02-18-2023 aPTT Coag (PPP) [Time] 98.5 second(s) Abnormal 25.1-36.5 [facility] Comment on above: Result Comment: Resu [...] the same coagulation reagent and instrumentation as [facility]. Currently there are no coagulation studies available worldwide for children to 14 days, and no normal ranges. Heparin therapeutic range (represented by Anti-Factor Xa activity of 0.2 - 0.4 U/mL) corresponds to PTT of 56.6 - 109.0 sec. Performed By: #### 2 025059 ####[facility] [address] [place] [address] Patient Educationon 02-19-20 23 Patient Education Normal [facility] Pre-Arrival Noteon 3 Pre-Arrival Note Normal [facility] Troponin 0 Hr.on 02-18-2023 Troponin I.cardiac [Mass/Vol] 12.00 pg/mL Low 15.90-38.40 [facility] Comment on above: Result Comment: The 95% CI (Confidence Interval) PPV (Positive Predictive Value) for myocardial infarction in females is 38 pg/mL, in males 51 pg/mL. The results should be used in conjunction with clinical conditions of myocardial infarction.(Access High Sensitivity Troponin I Instructions For Use, Nikky Kristopher, March 2018) Performed By: #### 2 218033, 02253233, 4985678, 5939219, 13650175, 3485294, 18217161, 02612848 ####[facility] [address] [place] [address] Troponin 3 Hr.on 02-18-2023 Troponin I.cardiac [Mass/Vol] 13.60 pg/mL Low 15.90-38.40 [facility] Comment on above: Result Comment: The 95% CI (Confidence Interval) PPV (Positive Predictive Value) for myocardial infarction in females is 38 pg/mL, in males 51 pg/mL. The results should be used in conjunction with clinical conditions of myocardial infarction.(Access High Sensitivity Troponin I Instructions For Use, [employer], March 2018) Performed By: #### 1 [id number] ####[facility] [address] [place] [address] Troponin 6 Hr.on 02-18-2023 Troponin I.cardiac [Mass/Vol] 12.90 pg/mL Low 15.90-38.40 [facility] Comment on above: Result Comment: The 95% CI (Confidence Interval) PPV (Positive Predictive Value) for myocardial infarction in females is 38 pg/mL, in males 51 pg/mL. The results should be used in conjunction with clinical conditions of myocardial infarction.(Access High Sensitivity Troponin I Instructions For Use, [employer], March 2018) Performed By: #### 1 [id number] ####[facility] [address] [place] [address] Troponin 9 Hr.on 02-18-2023 Troponin I.cardiac [Mass/Vol] 13.30 pg/mL Low 15.90-38.40 [facility] Comment on above: Result Comment: The 95% CI (Confidence Interval) PPV (Positive Predictive Value) for myocardial infarction in females is 38 pg/mL, in males 51 pg/mL. The results should be used in conjunction with clinical conditions of myocardial infarction.(Access High Sensitivity Troponin I Instructions For Use, [employer] 2018) Performed By: #### 1 9443874 ####[facility] [address] [place] [address] US LE Venous Duplex Bilatera allison 02-18-2023 US LE Venous Duplex Bilateral Normal [facility] XR Abdomen 1 Viewon 02-19-20 XR Abdomen 1 View Normal [facility] XR Chest Single Viewon 02-18 XR Chest Single View Normal [facility] eGFROrdered By: SYSTEM SYSTE M on 02-18-2023 GFR/1.73 sq M.predicted among non-blacks MDRD (S/P/Bld) [Vol rate/Area] 89 mL/min/1.73 m2 Normal >=59 [facility] Chem S Comment on above: Order Comment: Order added by Discern Expert. 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 Kidney failure is indicated at less than 15 mL/min/1.73m2. Performed By: #### 2 378571, 37017770, 8417870, 3457726, 79231857, 6678047, 73202853, 53956928 ####[facility] [address] [place] [address] Auto Diffon 02-15-2023 Basophils/100 WBC (Bld) 1.0 % Normal 0.0-2.0 [facility] Comment on above: Order Comment: Order Added by Rudi Expert. Performed By: #### 2 830620, 7231365, 7596994 ####[address] [place] [address] Basophils/Leukocyte s Auto (Bld) [Pure # fraction] 0.1 E9/L Normal 0.0-0.2 [facility] Comment on above: Order Comment: Order Added by Rudi Expert. Performed By: #### 2 921635, 0579821, 4882572 ####[address] [address] Eosinophils/100 WBC (Bld) 2.1 % Normal 0.0-8.0 [facility] Comment on above: Order Comment: Order Added by Rudi Expert. Performed By: #### 2 480279, 6255886, 4789571 ####[address] [address] Eosinophils/Leukocy [place] Auto (Bld) [Pure # fraction] 0.2 E9/L Normal 0.0-0.5 [facility] Comment on above: Order Comment: Order Added by Rudi Expert. Performed By: #### 2 355003, 6946024, 3016453 ####[facility] [address] [place] [address] Lymphocytes/100 WBC (Bld) 23.5 % Normal 14.0-50.0 [facility] Comment on above: Order Comment: Order Added by Discern Expert. Performed By: #### 2 283298, 9809758, 4699633 ####[facility] [address] [place] [address] Lymphocytes/Leukocy [place] Auto (Bld) [Pure # fraction] 1.9 E9/L Normal 1.0-4.0 [facility] Comment on above: Order Comment: Order Added by Discern Expert. Performed By: #### 2 026825, 1927621, 1854796 ####[address] [address] Monocytes/100 WBC (Bld) 7.5 % Normal 4.0-14.0 [facility] Comment on above: Order Comment: Order Added by Rudi Expert. Performed By: #### 2 336132, 1163506, 0678390 ####[address] [address] Monocytes/Leukocyte s Auto (Bld) [Pure # fraction] 0.6 E9/L Normal 0.2-1.0 [facility] Comment on above: Order Comment: Order Added by Rudi Expert. Performed By: #### 2 530941, 7951036, 6142487 ####[address] [address] Neutrophils/100 WBC (Bld) 65.9 % Normal 36.0-75.0 [facility] Comment on above: Order Comment: Order Added by Rudi Expert. Performed By: #### 2 915086, 7728411, 0718156 ####[address] [address] Neutrophils/Leukocy cam[place] Auto (Bld) [Pure # fraction] 5.2 E9/L Normal 2.0-7.5 [facility] Comment on above: Order Comment: Order Added by Rudi Expert. Performed By: #### 2 739602, 0810225, 0775382 ####[facility] [address] [place] [address] CBC w/ Auto Diffon 3 Erythrocyte distribution width (RBC) [Ratio] 15.1 % High 10.9-14.2 [facility] Comment on above: Performed By: #### 2 162899, 0684374, 0308767 ####[address] [address] Hematocrit (Bld) [Volume fraction] 44.1 % Normal 37.7-49.0 [facility] Comment on above: Performed By: #### 2 301861, 8726410, 1034994 ####[address] [address] Hemoglobin (Bld) [Mass/Vol] 14.7 g/dL Normal 13.5-17.5 [facility] Comment on above: Performed By: #### 2 201023, 3276888, 3903805 ####[address] [address] MCH (RBC) [Entitic mass] 30.8 pg Normal 27.0-34.0 [facility] Comment on above: Performed By: #### 2 034103, 5663479, 5858220 ####[address] [address] MCHC (RBC) [Mass/Vol] 33.2 g/dL Normal 31.4-36.0 [facility] Comment on above: Performed By: #### 2 574560, 0089169, 6101051 ####[address] [address] MCV (RBC) [Entitic vol] 92.7 fL Normal 80.0-100.0 [facility] Comment on above: Performed By: #### 2 975413, 9789372, 7328956 ####[address] [address] Platelet mean volume (Bld) [Entitic vol] 8.3 fL Normal 6.4-10.8 [facility] Comment on above: Performed By: #### 2 596142, 0785532, 1934315 ####[address] [place] [address] Platelets (Bld) [#/Vol] 177.0 E9/L Normal 150.0-500.0 [facility] Comment on above: Performed By: #### 2 409558, 0158446, 9260118 ####[facility] [address] [place] [address] RBC (Bld) [#/Vol] 4.8 E12/L Normal 4.3-5.9 [facility] Comment on above: Performed By: #### 2 197658, 4882578, 0446122 ####[facility] [address] [place] [address] WBC corrected for nucl RBC Auto (Bld) [#/Vol] 8.0 E9/L Normal 4.0-11.0 [facility] Comment on above: Performed By: #### 2 817856, 3878567, 2222972 ####[facility] [address] [place] [address] CHEMISTRYOrdered By: SYSTEM SYSTEM on 02-15-2023 Albumin [...] ChemAutoSS Consent for Treatmenton Consent for Treatment [id number] D:127 Normal [facility] HEMATOLOGYOrdered By: SYSTEM SYSTEM on 02-15-2023 [...] 15.1 % High 10.9 - 14.2 % [facility] HemeAutoSS Hematocrit (Bld) [Volume fraction] 44.1 % Normal 37.7 - 49.0 % [facility] HemeAutoSS Hemoglobin (Bld) [Mass/Vol] 14.7 g/dL Normal 13.5 - 17.5 gm/dL [facility] HemeAutoSS MCH (RBC) [Entitic mass] 30.8 pg Normal 27.0 - 34.0 pg [facility] HemeAutoSS MCHC (RBC) [Mass/Vol] 33.2 g/dL Normal 31.4 - 36.0 gm/dL FT HemeAutoSS MCV (RBC) [Entitic vol] 92.7 fL Normal 80.0 - 100.0 fL FT HemeAutoSS Platelet mean volume (Bld) [Entitic vol] 8.3 fL Normal 6.4 - 10.8 fL [facility] HemeAutoSS Platelets (Bld) [#/Vol] 177.0 E9/L Normal 150.0 - 500.0 E9/L [facility] HemeAutoSS RBC (Bld) [#/Vol] 4.8 E12/L Normal 4.3 - 5.9 E12/L [facility] HemeAutoSS WBC corrected for nucl RBC Auto (Bld) [#/Vol] 8.0 E9/L Normal 4.0 - 11.0 E9/L [facility] HemeAutoSS Hep Func Panelon 02-15-2023 Albumin [Mass/Vol] 3.9 g/dL Normal 3.3-5.0 [facility] Comment on above: Performed By: #### 2 930351, 6585147, 5470478 ####[facility] [address] [place] [address] Albumin/Globulin (S) [Mass conc ratio] 1.0 Low 1.1-2.2 [facility] Comment on above: Performed By: #### 2 081347, 8400824, 7344176 ####[facility] [address] [place] [address] ALP [Catalytic activity/Vol] 66 Int._Unit/L Normal 21-98 [facility] Comment on above: Performed By: #### 2 011584, 0848671, 7619230 ####[facility] [address] [place] [address] ALT No additional P-5'-P [Catalytic activity/Vol] 32 Int._Unit/L Normal 6-46 [facility] Comment on above: Performed By: #### 2 120203, 5621112, 8557269 ####[address] [address] AST [Catalytic activity/Vol] 36 Int._Unit/L Normal 5-43 [facility] Comment on above: Performed By: #### 2 323903, 4470806, 6552772 ####[address] [address] Bilirubin [Mass/Vol] 0.6 mg/dL Normal 0.0-1.1 [facility] Comment on above: Performed By: #### 2 227222, 5390119, 3774019 ####[address] [address] Bilirubin.direct [Mass/Vol] 0.1 mg/dL Normal 0.1-0.4 [facility] Comment on above: Performed By: #### 2 240270, 0431563, 5305705 ####[address] [address] Bilirubin.indirect [Mass or moles/Vol] 0.5 mg/dL Normal 0.1-0.9 [facility] Comment on above: Performed By: #### 2 084215, 4314539, 0164097 ####[address] [address] Globulin (S) [Mass/Vol] 4.0 g/dL Normal 1.4-4.0 [facility] Comment on above: Performed By: #### 2 063778, 8617295, 5054165 ####[facility] [address] [place] [address] Protein [Mass/Vol] 7.9 g/dL High 6.0-7.8 [facility] Comment on above: Performed By: #### 2 144587, 7148490, 8873006 ####[facility] [address] [place] [address] VosH4uxd 02-15-2023 HbA1c (Bld) [Mass fraction] 6.8 % High <=5.9 [facility] Comment on above: Performed By: #### 7 31621011 ####[facility] [address] [place] [address] CNPShireen 2023 CNPN Telephone (RHEUMN) JAS GONZALEZ ([id number]) 1950 M DEF Date Time Provider Department [...] Status:Closed by JUMA MONK on 01/28/23 Normal [facility] CRP SerPl-mCncon 01-25-2023 CRP [Mass/Vol] 0.7 mg/dL Normal <0.9 [facility] Comment on above: Order Comment: Speci men Type: BLOOD SPECIMENOrdering Facility: [facility] Address: [address] [address] Performed By: #### 1 988-5 ####[facility] [id number] [place] [address] [place] ESR Westergren method (Bld) [Velocity]on 01-25-2023 ESR (Bld) [Velocity] 24 mm/h High 0-15 [facility] Comment on above: Order Comment: Speci men Type: BLOOD SPECIMENOrdering Facility: [facility] Address: [address] [address] Performed By: #### 4 537-7 ####[facility] [id number] [place] [address] [place] MRI SACRUM/COCCYX WO [...] fat suppression and field inhomogeneity, and diminished mhnzin-se-dgczj ratio. SACROILIAC JOINTS: Apparent mild partial ankylosis [...] cyst. Marked lower lumbar spine degenerative changes. Audio Visual Production Specialist: PRANAY Transcribe Date/Time: Jan 25 2023 11:15A Dictated by : GAGE BLUM MD This examination was interpreted and the report reviewed and electronically signed by: GAGE BLUM MD on Jan 25 2023 12:05PM EST [id number] Normal [facility] Consent for Procedure/Surger yon 01-24-2023 Consent for Procedure/Surgery [id number] CD:127 Normal [facility] Gastroenterology Office/Clin ic Noteon 01-24-2023 Gastroenterology Office/Clinic Note Normal [facility] Comment on above: Result Comment: Elec tronically Signed By: Zahra Barton\.br\Date and Time Signed: 01/23/23 12:42 EDT\.br\Electronically Co-Signed By: Joycelyn CHERRY MD\.br\Date and Time Co-Signed: 01/24/23 09:04 EDT Ambulatory Visit Summaryon 0 01-23-2023 Ambulatory Visit Summary Normal [address] [facility], [facility] [place] [address]- \.br\ Medications\.br\ What How Much When Why [...] Unchanged fluticasone nasal (Flonase 0.05 mg/ inh [place]) 2 Sprays Nasal Inhalation Every day Allergic [...] with hiatal hernia\.br\ High serum protein level\.br\ 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\.br\ Numbness [...] pulmonary embolus\.br\ kidney stones\.br\ Left shoulder pain\.br\ claim 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 (current) use of anticoagulants\.b r\ Lumbago\.br\ Lumbar radiculopathy, chronic\.br\ Morbid obesity due to excess calories\.br\ Obesity\.br\ Pulmonary embolism on right\.br\ Rib pain on right side\.br\ Spasm of muscle of lower back\.br\ Vertigo, benign paroxysmal\.br\ \.br\ [facility] Physician Orderon 12-18-2022 Physician Order [id number] D:127 Normal [facility] Physician Order [id number] D:127 Normal [facility] CNPNon 12-17-2022 CNPN Telephone (RHEUMN) JAS GONZALEZ ([id number]) 1950 M DEF Date Time Provider Department [...] elsewhere classified [M53.3] Order(s):MRI SACRUM/COCCYX WO IVCON [3546459] Order #: [id number] FUTURE C-REACTIVE PROTEIN (CRP) [SQCRP] Order #: [id number] FUTURE SED RATE WESTERGREN [SQWSR] Order #: [id number] FUTURE Prescriptions as of 12/17/2022 - aspirin [...] Status:Closed by JUMA MONK on 12/17/22 Normal [facility] Ambulatory Visit Summaryon 0 12-10-2022 Ambulatory Visit Summary Invalid Interpretation Code [address] [place] [address]- \.br\ Saturday 11:00 AM EST \.br\ With:\.br\ Where: [facility] Primary Care [facility] Family Medicine Office/Clini c Noteon 12-10-2022 Family Medicine Office/Clinic Note Normal [facility] Comment on above: Result Comment: Elec tronically Signed By: Mt GOODEN DO, FAAFP\.br\Date and Time Signed: 12/10/22 10:50 EDT Patient Educationon 12-11-19 Patient Education Normal [facility] Consultation Noteon 12-09-19 Consultation Note [id number] :127 Normal [facility] CNOVon 12-05-2022 CNOV Office Visit (KRYSTIN ) JAS GONZALEZ ([id number]) 1950 M DEF Date Time Provider Department 12/05/22 1:00 PM JUMA MONK During your visit today, we recorded the following information about you: Pulse Respiration Blood pressure Weight 83/minute 18/minute 118/74 154.2 kg Juma Monk MD 12/05/2022 1:29 PM Signed [facility] Date of Service: 12/05/2022 Patient: Jas Gonzalez Medical Record: [id number] Primary Care Physician: No primary care provider [...] which was uploaded, more information requested from Rouqe Cedillo. Received fax, reviewed previous work-ups Previous [...] Social Hist (more content not included)... Normal [facility] Coding Summary.on 12-05-2022 Coding Summary. 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 Audio Visual Production Specialist: PRANAY Transcribe Date/Time: Dec 06 2022 2:43P Dictated by : GAGE BLUM MD This examination was interpreted and the report reviewed and electronically signed by: GAGE BLUM MD on Dec 06 2022 2:46PM EST [id number] [facility] THEO Telephone (KRYSTIN) JAS GONZALEZ ([id number]) 1950 M DEF Date Time Provider Department [...] Reason for Visit: Received Outside Medical Records [4464] Prescriptions as of 12/04/2022 - aspirin 81 [...] Status:Closed by ANGIE LARA on 12/04/22 Normal [facility] ABO/Rhon 12-02-2022 ABO/Rh Positive Invalid Interpretation Code [facility] Comment on above: Performed By: #### 1 7571226, 2598150, 59356641, 86674987 ####[facility] [address] [place] [address] ABO/Rh History Checkon 12-02 ABO/Rh History Check Patient discharged prior Normal [facility] Comment on above: Performed By: #### 1 9766822, 5458853, 77399861, 28517628 ####[facility] [address] [place] [address] ABSCon 12-02-2022 ABSC Gel Interp Negative Normal [facility] Comment on above: Performed By: #### 1 2177571, 8491173, 50943213, 93165523 ####[facility] [address] [place] [address] Auto Diffon 12-02-2022 Basophils/100 WBC (Bld) 0.6 % Normal 0.0-2.0 [facility] Comment on above: Order Comment: Order Added by Discern Expert. Performed By: #### 2 980570, 20340287, 4870410, 2654209, 38599812, 3500131 ####[facility] [address] [place] [address] Basophils/Leukocyte s Auto (Bld) [Pure # fraction] 0.0 E9/L Normal 0.0-0.2 [facility] Comment on above: Order Comment: Order Added by Discern Expert. Performed By: #### 2 391580, 75258928, 2632803, 7059854, 31001071, 0944248 ####[facility] [address] [place] [address] Eosinophils/100 WBC (Bld) 1.9 % Normal 0.0-8.0 [facility] Comment on above: Order Comment: Order Added by Discern Expert. Performed By: #### 2 974276, 46040548, 9828800, 7013105, 00980974, 0650087 ####[address] [place] [address] Eosinophils/Leukocy [place] Auto (Bld) [Pure # fraction] 0.1 E9/L Normal 0.0-0.5 [facility] Comment on above: Order Comment: Order Added by Discern Expert. Performed By: #### 2 311376, 51425596, 1469243, 7241757, 38058968, 7157081 ####[address] [address] Lymphocytes/100 WBC (Bld) 28.4 % Normal 14.0-50.0 [facility] Comment on above: Order Comment: Order Added by Discern Expert. Performed By: #### 2 412311, 62067541, 5220668, 3061923, 41201218, 4188365 ####[address] [address] Lymphocytes/Leukocy [place] Auto (Bld) [Pure # fraction] 1.5 E9/L Normal 1.0-4.0 [facility] Comment on above: Order Comment: Order Added by Discern Expert. Performed By: #### 2 966627, 79065578, 8492809, 7839971, 59933348, 3385436 ####[address] [place] [address] Monocytes/100 WBC (Bld) 9.3 % Normal 4.0-14.0 [facility] Comment on above: Order Comment: Order Added by Discern Expert. Performed By: #### 2 894093, 39886288, 6626035, 8080982, 43521310, 1336441 ####[facility] [address] [place] [address] Monocytes/Leukocyte s Auto (Bld) [Pure # fraction] 0.5 E9/L Normal 0.2-1.0 [facility] Comment on above: Order Comment: Order Added by Discern Expert. Performed By: #### 2 548551, 50553245, 7550013, 6987533, 83900959, 9624373 ####[address] [place] [address] Neutrophils/100 WBC (Bld) 59.8 % Normal 36.0-75.0 [facility] Comment on above: Order Comment: Order Added by Discern Expert. Performed By: #### 2 548158, 86300804, 6123240, 8428214, 20280468, 6541341 ####[address] [place] [address] Neutrophils/Leukocy [place] Auto (Bld) [Pure # fraction] 3.1 E9/L Normal 2.0-7.5 [facility] Comment on above: Order Comment: Order Added by Discern Expert. Performed By: #### 2 697231, 98824648, 5024603, 9265806, 34676213, 6674782 ####[address] [place] [address] BLOOD BANKOrdered By: Keturah Bar on 12-02-2022 ABO/Rh Interp Positive Invalid Interpretation Code [facility] BB Subsection ABSC Gel Interp Negative (12/02/22 1:07 PM) Normal [facility] BB Subsection BMPon 12-02-2022 Creatinine [Mass/Vol] 0.9 mg/dL Normal 0.5-1.3 [facility] Comment on above: Performed By: #### 2 902337, 91079129, 7538570, 5812877, 53870541, 3936091 ####[facility] [address] [place] [address] Urea nitrogen [Mass/Vol] 14 mg/dL Normal 5-21 [facility] Comment on above: Performed By: #### 2 622550, 94329535, 5369598, 3230686, 13944194, 7601117 ####[facility] [address] [place] [address] Urea nitrogen/Creatinine [Mass ratio] 16 No Units Normal 10-20 [facility] Comment on above: Performed By: #### 2 614926, 18114968, 5769783, 6420150, 96031811, 5667786 ####[facility] [address] [place] [address] Anion gap [Moles/Vol] 10 mmol/L Normal 6-16 [facility] Comment on above: Performed By: #### 2 927088, 56489316, 2314076, 0611350, 60871066, 1771255 ####[facility] [address] [place] [address] Calcium [Mass/Vol] 8.9 mg/dL Normal 8.9-11.1 [facility] Comment on above: Performed By: #### 2 695504, 27031934, 4567125, 8153154, 74701081, 6773558 ####[facility] [address] [place] [address] Chloride [Moles/Vol] 98 mmol/L Low 101-111 [facility] Comment on above: Performed By: #### 2 938736, 14906479, 3873204, 8995503, 02848132, 5927227 ####[facility] [address] [place] [address] CO2 [Moles/Vol] 30 mmol/L Normal 21-31 [facility] Comment on above: Performed By: #### 2 484227, 73880957, 1344569, 9062552, 01816489, 9563862 ####[facility] [address] [place] [address] Glucose [Mass/Vol] 137 mg/dL Normal 55-199 [facility] Comment on above: Result Comment: If t his glucose result represents a fasting glucose, interpretation should refer to the following reference range: 55-99 mg/dL Performed By: #### 2 708400, 82838198, 2437146, 4551539, 51093307, 8131840 ####[facility] [address] [place], [place] [address] Potassium [Moles/Vol] 3.6 mmol/L Normal 3.5-5.3 [facility] Comment on above: Performed By: #### 2 849703, 84392539, 4795922, 9985959, 68391277, 2235872 ####[facility] [address] [place] [address] Sodium [Moles/Vol] 134 mmol/L Low 135-145 [facility] Comment on above: Performed By: #### 2 220467, 47454755, 8203419, 8803036, 95867037, 1577719 ####[address] [place] [address] Blood Bank ID#on 12-02-2022 BBID# [id number] Invalid Interpretation Code [facility] Comment on above: Performed By: #### 1 [id number], 7430215, 48458987, 79174413 ####[facility] [address] [place] [address] CBC w/ Auto Diffon Erythrocyte distribution width (RBC) [Ratio] 13.9 % Normal 10.9-14.2 [facility] Comment on above: Performed By: #### 2 843309, 76415933, 0491082, 4580895, 64303893, 7480227 ####[facility] [address] [place] [address] Hematocrit (Bld) [Volume fraction] 44.1 % Normal 37.7-49.0 [facility] Comment on above: Performed By: #### 2 453005, 23774178, 3101590, 4094163, 31844914, 9879231 ####[facility] [address] [place] [address] Hemoglobin (Bld) [Mass/Vol] 14.5 g/dL Normal 13.5-17.5 [facility] Comment on above: Performed By: #### 2 132876, 25587644, 8190849, 3467677, 49913718, 6996829 ####[facility] [address] [place] [address] MCH (RBC) [Entitic mass] 30.7 pg Normal 27.0-34.0 [facility] Comment on above: Performed By: #### 2 230896, 98586099, 5126397, 9898077, 48990827, 6799952 ####[facility] [address] [place] [address] MCHC (RBC) [Mass/Vol] 32.9 g/dL Normal 31.4-36.0 [facility] Comment on above: Performed By: #### 2 874694, 41775087, 3945186, 9508094, 68953297, 0515664 ####[address] MCV (RBC) [Entitic vol] 93.1 fL Normal 80.0-100.0 [facility] Comment on above: Performed By: #### 2 475056, 06773479, 4446254, 0965847, 43999916, 9020325 ####[address] [address] Platelet mean volume (Bld) [Entitic vol] 8.2 fL Normal 6.4-10.8 [facility] Comment on above: Performed By: #### 2 120623, 22522415, 3657849, 5376996, 85213733, 9198207 ####[address] [place] [address] Platelets (Bld) [#/Vol] 135.0 E9/L Low 150.0-500.0 [facility] Comment on above: Performed By: #### 2 377860, 94710828, 8326319, 2292975, 69278023, 6633295 ####[address] [address] RBC (Bld) [#/Vol] 4.7 E12/L Normal 4.3-5.9 [facility] Comment on above: Performed By: #### 2 176543, 49738725, 3290662, 4493875, 68267884, 5701425 ####[facility] [address] [place] [address] WBC corrected for nucl RBC Auto (Bld) [#/Vol] 5.2 E9/L Normal 4.0-11.0 [facility] Comment on above: Performed By: #### 2 607307, 94435561, 9293856, 3110635, 84519911, 6501900 ####[facility] [address] [place] [address] CHEMISTRYOrdered By: SYSTEM SYSTEM on 12-02-2022 Albumin [...] [Vol rate/Area] mL/min/1.73 m2 Normal >=59mL/min/1.73 m2 [facility] Chem S Globulin (S) [Mass/Vol] 3.5 g/dL Normal 1.4 - 4.0 gm/dL [facility] Remisol Glucose [Mass/Vol] 137 mg/dL Normal 55 - 199 mg/dL [facility] Remisol Potassium [Moles/Vol] 3.6 mmol/L Normal 3.5 - 5.3 mmol/L [facility] Protein [Mass/Vol] 7.0 g/dL Normal 6.0 - 7.8 gm/dL [facility] Remisol Sodium [Moles/Vol] 134 mmol/L Low 135 - 145 mmol/L [facility] Remisol Urea nitrogen [Mass/Vol] 14 mg/dL Normal 5 - 21 mg/dL [facility] Urea nitrogen/Creatinine [Mass ratio] 16 mg/mg Normal 10 - 20 [facility] COAGULATIONOrdered By: Brandie Sams on 12-02-2022 aPTT Coag (PPP) [Time] 32.2 s Normal 25.1 - 36.5 second(s) [facility] Auto Coag INR Coag (PPP) [Relative time] 1.1 {INR} Invalid Interpretation Code [facility] Auto Coag PT Coag (PPP) [Time] 11.8 s Normal 9.4 - 12.5 second(s) [facility] Auto Coag Consent for Treatmenton 11-11 Consent for Treatment [id number]#1.00C D:127 Normal [facility] Discharge Instructionson Discharge Instructions [id number]#1.00CD :127 Normal [facility] ED Clinical Summaryon 2022 ED Clinical Summary Normal [facility] ED Note-Physicianon 12-03-19 ED Note-Physician Normal [facility] Comment on above: Result Comment: Elec tronically Signed By: Severo Mcnair PA-C\.br\Date and Time Signed: 12/02/22 16:04 EDT\.br\Electronically Co-Signed By: Arturo Alvarez M.D.\.br\Date and Time Co-Signed: 12/02/22 18:18 EDT ED Patient Education Noteon 12-02-2022 ED Patient Education Note Normal [facility] ED Patient Summaryon 023 ED Patient Summary Normal [facility] HEMATOLOGYOrdered By: SYSTEM SYSTEM on 12-02-2022 [...] 3.1 E9/L Normal 2.0 - 7.5 E9/L [facility] HemeAutoSS HEMATOLOGYOrdered By: Veronika Sams on 12-02-2022 Erythrocyte distribution width (RBC) [Ratio] 13.9 % Normal 10.9 - 14.2 % [facility] HemeAutoSS Hematocrit (Bld) [Volume fraction] 44.1 % Normal 37.7 - 49.0 % [facility] HemeAutoSS Hemoglobin (Bld) [Mass/Vol] 14.5 g/dL Normal 13.5 - 17.5 gm/dL [facility] HemeAutoSS MCH (RBC) [Entitic mass] 30.7 pg Normal 27.0 - 34.0 pg [facility] HemeAutoSS MCHC (RBC) [Mass/Vol] 32.9 g/dL Normal 31.4 - 36.0 gm/dL [facility] HemeAutoSS MCV (RBC) [Entitic vol] 93.1 fL Normal 80.0 - 100.0 fL [facility] HemeAutoSS Platelet mean volume (Bld) [Entitic vol] 8.2 fL Normal 6.4 - 10.8 fL [facility] HemeAutoSS Platelets (Bld) [#/Vol] 135.0 E9/L Low 150.0 - 500.0 E9/L [facility] HemeAutoSS RBC (Bld) [#/Vol] 4.7 E12/L Normal 4.3 - 5.9 E12/L [facility] HemeAutoSS WBC corrected for nucl RBC Auto (Bld) [#/Vol] 5.2 E9/L Normal 4.0 - 11.0 E9/L [facility] HemeAutoSS Hep Func Panelon 12-02-2022 Bilirubin.indirect [Mass or moles/Vol] UTC Abnormal 0.1-0.9 [facility] Comment on above: Result Comment: Resu lt verified by Discern Rule. Performed result UTC (Unable to Calculate) was sent as an Alpha code due the inability to calculate a valid numeric value. Performed By: #### 2 463987, 65500892, 5913786, 1356760, 41046657, 1501653 ####[address] [place] [address] Albumin [Mass/Vol] 3.5 g/dL Normal 3.3-5.0 [facility] Comment on above: Performed By: #### 2 684394, 43516324, 9446369, 2648422, 36892119, 7726811 ####[facility] [address] [place] [address] Albumin/Globulin (S) [Mass conc ratio] 1.0 Low 1.1-2.2 [facility] Comment on above: Performed By: #### 2 875933, 46753538, 6212223, 5969916, 09139215, 7902400 ####[address] [place] [address] ALP [Catalytic activity/Vol] 55 Int._Unit/L Normal 21-98 [facility] Comment on above: Performed By: #### 2 400270, 13585617, 7127394, 7708253, 67919780, 9343517 ####[address] [place] [address] ALT No additional P-5'-P [Catalytic activity/Vol] 37 Int._Unit/L Normal 6-46 [facility] Comment on above: Performed By: #### 2 481273, 50102495, 8823053, 9367453, 90227974, 7876891 ####[facility] [address] [place] [address] AST [Catalytic activity/Vol] 44 Int._Unit/L High 5-43 [facility] Comment on above: Performed By: #### 2 093549, 38363050, 4296190, 8900424, 93829210, 1259714 ####[facility] [address] [place] [address] Bilirubin [Mass/Vol] 0.4 mg/dL Normal 0.0-1.1 [facility] Comment on above: Performed By: #### 2 570475, 33010983, 7909212, 7685426, 87420274, 1952246 ####[facility] [address] [place] [address] Bilirubin.direct [Mass/Vol] mg/dL Normal 0.1-0.4 [facility] Comment on above: Performed By: #### 2 674996, 29921939, 0420153, 7036738, 86914088, 5939173 ####[facility] [address] [place] [address] Globulin (S) [Mass/Vol] 3.5 g/dL Normal 1.4-4.0 [facility] Comment on above: Performed By: #### 2 040809, 51799027, 0069035, 1932745, 06411630, 4832826 ####[facility] [address] [place] [address] Protein [Mass/Vol] 7.0 g/dL Normal 6.0-7.8 [facility] Comment on above: Performed By: #### 2 592648, 56990253, 1892664, 8704195, 24009437, 6182456 ####[facility] [address] [place] [address] MICRO OTHER TESTSOrdered By: Kelly Strange on 12-02-2022 Occult Bld Stl Positive *ABN* (12/02/22 3:01 PM) Invalid Interpretation Code Negative [facility] Man Sero PT & PTTon 12-02-2022 aPTT Coag (PPP) [Time] 32.2 second(s) Normal 25.1-36.5 [facility] Comment on above: Result Comment: Para [...] the same coagulation reagent and instrumentation as [facility]. Currently there are no coagulation studies available worldwide for children to 14 days, and no normal ranges. Heparin therapeutic range (represented by Anti-Factor Xa activity of 0.2 - 0.4 U/mL) corresponds to PTT of 56.6 - 109.0 sec. Performed By: #### 2 468883, 03975944, 4190115, 9158594, 10417291, 4868997 ####[facility] [address] [place] [address] INR Coag (PPP) [Relative time] 1.1 {INR} Invalid Interpretation Code [facility] Comment on above: Result Comment: INR results are specifically intended to assess patients stabilized on long-term Anticoagulation therapy suggested INR?s ?Less Intensive Anticoagulation? 2.0 ? 3.0Conventional Range 3.0 ? 4.5 Performed By: #### 2 451239, 36532036, 6763653, 7682532, 15367396, 2127290 ####[facility] [address] [place] [address] PT Coag (PPP) [Time] 11.8 second(s) Normal 9.4-12.5 [facility] Comment on above: Result Comment: 15 [...] the same coagulation reagent and instrumentation as [facility]. Currently there are no coagulation studies available worldwide for children to 14 days, and no normal ranges. Performed By: #### 2 991301, 18568183, 6897767, 8156419, 76553707, 9507604 ####[facility] [address] [place] [address] Stl Oclt Bldon 12-02-2022 Occult Bld Stl Positive Abnormal Negative [facility] Comment on above: Performed By: #### 2 2274401 ####[facility] [address] [place] [address] eGFRon 12-02-2022 GFR/1.73 sq M.predicted among blacks MDRD (S/P/Bld) [Vol rate/Area] mL/min/{1.73_m2} Normal >=59 [facility] Comment on above: Order Comment: Order added by Discern Expert. Result Comment: eGFR is race adjusted. AA=. Performed By: #### 2 428792, 92301870, 5799854, 3369360, 88679744, 6285076 ####[facility] [address] [place] [address] GFR/1.73 sq M.predicted among non-blacks MDRD (S/P/Bld) [Vol rate/Area] mL/min/{1.73_m2} Normal >=59 [facility] Comment on above: Order Comment: Order added by Discern Expert. 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 Kidney failure is indicated at less than 15 mL/min/1.73m2. Performed By: #### 2 499732, 73310454, 3414710, 3084010, 22204982, 5435068 ####[facility] [address] [place] [address] Coding Summary.on 11-30-2022 Coding Summary. Normal [facility] Consent for Treatmenton 11-11 Consent for Treatment [id number]#1.00CD :127 Normal [facility] Consultation Noteon 11-30-19 Consultation Note Normal [facility] Comment on above: Result Comment: Elec tronically Signed By: Georgi ESPINAL, Pawan\.br\Date and Time Signed: 11/29/22 10:31 EDT Office/Clinic Note-Physician on 11-29-2022 Office/Clinic Note-Physician [id number]#1.00 CD:127 [facility] Patient Correspondenceon Patient Correspondence [id number]#1.00 CD:127 [facility] Patient History Officeon Patient History Office [id number]#1.00 CD:127 [facility] Transfer Inon 11-26-2022 Transfer In [id number]#1.00C D:127 [facility] Coding Summary.on 11-24-2022 Coding Summary. [facility] US Aorta Completeon 11-21-19 US Aorta Complete Normal [facility] Consent for Treatmenton 11-10 Consent for Treatment [id number]#1.00C D:127 [facility] Consultation Noteon 11-18-19 Consultation Note [id number]#1.00C D:127 [facility] Auth for Release of Medical Recordson 11-16-2022 Auth for Release of Medical Records [id number]#1.00C D:127 [facility] CNOVon 11-14-2022 CNOV Office Visit (KRYSTIN ) JAS GONZALEZ ([id number]) 1950 M DEF Date Time Provider Department 11/14/22 1:30 PM JUMA MONK During your visit today, we recorded the following information about you: Pulse Blood pressure Weight Height 73/minute 121/63 151.5 kg 1.854 m Juma Monk MD 11/16/2022 9:45 AM Signed [facility] Date of Service: 11/14/2022 Patient: Jas Gonzalez Medical Record: [id number] Primary Care Physician: No primary care provider on file. Referring Provider: THAO DUNCAN(HISTORICAL) Last Rheumatology visit: 11/14/2022 (with Juma Monk) Chief complaint: Consult (Dx oa. /) Consultation requested by hTao Duncan for an opinion regarding evaluate for [...] 144 mmol/L (more content not included)... Normal [facility] Office/Clini c Noteon 11-08-2022 Family [facility] Office/Clinic Note Normal [facility] Comment on above: Result Comment: Elec tronically Signed By: MAMTA LEE FAAFP, [place]\Jasebr\Date and Time Signed: 11/08/22 10:50 EDT Patient Educationon 11-09-19 Patient Education Normal [facility] Coding Summary.on 10-29-2022 Coding Summary. [facility] CHEMISTRYOrdered By: Lab ROP User on 10-24-2022 Glucose [Mass/Vol] 138 mg/dL High 55 - 99 mg/dL [facility] C POC Subsection POC Device SN [id number] Invalid Interpretation Code [facility] POC Subsection POC User ID [id number] Invalid Interpretation Code [facility] POC Subsection POC Username LESLIE AUGUSTINE Invalid Interpretation Code [facility] POC Subsection Capillary Glucose POCon 10-10 Glucose [Mass/Vol] 138 mg/dL High 55-99 [facility] Comment on above: Performed By: #### 2 [id number] ####[facility] [address] [place] [address] Consent for Procedure/Surger yon 10-24-2022 Consent for Procedure/Surgery [id number]#1.00 CD:127 Normal [facility] Consent for Treatmenton 10-10 Consent for Treatment [id number]#1.00C D:127 Normal [facility] Consultation Noteon 10-25-19 Consultation Note [id number]#1.00C D:127 Normal [facility] Consultation Note [id number]#1.00C D:127 Normal [facility] Discharge Instructionson Discharge Instructions [id number]#1.00 CD:127 Normal [facility] IntraOperative Documentson 0 10-24-2022 IntraOperative Documents [id number]#1.00 CD:127 Normal [facility] IntraOperative Documents [id number]#1.00 CD:127 Normal [facility] Main OR Intraoperative Recor don 10-24-2022 Main OR Intraoperative Record Normal [facility] Main OR Preoperative Recordo n 10-24-2022 Main OR Preoperative Record Normal [facility] Operative Reporton Operative Report Normal [facility] Comment on above: Result Comment: Elec tronically Signed By: Georgi ESPINAL, Pawan\.br\Date and Time Signed: 10/24/22 19:25 EDT Patient Correspondenceon Patient Correspondence [id number]#1.00CD :127 Normal [facility] CHEMISTRYOrdered By: Elma Person on 09-10-2022 Albumin [...] [Vol rate/Area] mL/min/1.73 m2 Normal >=59mL/min/1.73 m2 [facility] Chem S GFR/1.73 sq M.predicted among non-blacks MDRD (S/P/Bld) [Vol rate/Area] mL/min/1.73 m2 Normal >=59mL/min/1.73 m2 [facility] S Globulin (S) [Mass/Vol] 3.8 g/dL Normal 1.4 - 4.0 gm/dL [facility] Remisol Glucose [Mass/Vol] 119 mg/dL Normal 55 - 199 mg/dL [facility] Remisol Potassium [Moles/Vol] 4.0 mmol/L Normal 3.5 - 5.3 mmol/L [facility] Remisol Prostate specific Ag [Mass/Vol] 0.9 ng/mL Normal 0.1 - 3.5 ng/mL [facility] Remisol Protein [Mass/Vol] 7.9 g/dL High 6.0 - 7.8 gm/dL [facility] Remisol Sodium [Moles/Vol] 138 mmol/L Normal 135 - 145 mmol/L [facility] Remisol Triglyceride [Mass/Vol] 120 mg/dL Normal <=149mg/dL [facility] Remisol Urea nitrogen [Mass/Vol] 17 mg/dL Normal 5 - 21 mg/dL [facility] Remisol Urea nitrogen/Creatinine [Mass ratio] 19 mg/mg Normal 10 - 20 [facility] CHEMISTRYOrdered By: Alia Heart on 09-10-2022 HbA1c (Bld) [Mass fraction] 6.3 % High <=5.9% [facility] ChemAutoSS HEMATOLOGYOrdered By: SYSTEM SYSTEM on 09-10-2022 [...] 3.6 E9/L Normal 2.0 - 7.5 E9/L [facility] HemeAutoSS HEMATOLOGYOrdered By: Chloe Reynolds on 09-10-2022 [...] 10.8 fL [facility] HemeAutoSS Platelets (Bld) [#/Vol] 159.0 E9/L Normal 150.0 - 500.0 E9/L [facility] HemeAutoSS RBC (Bld) [#/Vol] 4.8 E12/L Normal 4.3 - 5.9 E12/L [facility] HemeAutoSS WBC corrected for nucl RBC Auto (Bld) [#/Vol] 6.4 E9/L Normal 4.0 - 11.0 E9/L [facility] HemeAutoSS ANES POSTPROC EVALon 022 ANES POSTPROC EVAL HNO ID: [id number] Author: Vincenzo Laughlin MD Service: ? Author [...] Vitals Vitals Value Taken Time BP 119/76 1028/22 1340 Temp 36.5 ?C (97.7 ?F) 06/08/22 [...] June 08, 2022 TIME: 5:56 PM CSN: [id number] Normal [facility] ANES PRE-OPon 06-08-2022 ANES PRE-OP HNO ID: [id number] Author: Vincenzo Laughlin MD Service: ? Author Type: Anesthesiologist Type: Anesthesia Preprocedure Evaluation Filed: 06/08/2022 12:32 PM Note Text: ANESTHESIOLOGY DAY OF SURGERY NOTE : 1950 Procedure Information Date/Time: 06/08/22 1300 Scheduled providers: Katrina Urena MD; Vincenzo Laughlin MD; Sky Howe APRN.FELT CUTTER Procedure: EGD DIAGNOSTIC Location: Gastroenterology Estimated body [...] and consent discussed: yes. Patient / Responsible Green Party agrees to proceed: yes Patient / [...] June 08, 2022 TIME: 12:31 PM CSN: [id number] Normal [facility] EGD DIAGNOSTICon 06-08-2022 [facility] GLUCOSE, BLOOD (POC)on 06-08 Glucose [Mass/Vol] 129 mg/dL Abnormal 74 - 99 mg/dL [facility] Glucose [Mass/Vol] 95 mg/dL 74 - 99 mg/dL [facility] NURSING PROGon 06-08-2022 NURSING PROG HNO ID: [id number] Author: Leonor Osorio RN Service: Nursing Author [...] Electronically Signed By: Leonor Osorio RN Normal [facility] NURSING PROG HNO ID: [id number] Author: Marguerite Potts RN Service: Nursing Author [...] Marguerite Potts RN In Department: GASTROENTEROLOGY Normal [facility] SURGICAL PATHOLOGYon 022 ADDENDUM 1: Normal [facility] Comment on above: Order Comment: Speci men Type: TISSUE SPECIMENOrdering Facility: [facility] Address: [address] [place], [place] [address] Result Comment: H. p ylori immunostain performed on the stomach biopsy (part A) to evaluate the chronic gastritis is negative for organisms. Laboratory Developed Test (LDT) Disclaimer: Performance characteristics of immunohistochemical, immunofluorescent and chromogenic in-situ hybridization tests have been determined by the performing laboratory within [facility]???s [facility], [facility], [facility]) in a manner consistent with CLIA [...] PM Performed By: #### S ####[facility]ORATORYCLIA [id number] [address] CASE REPORT Normal [facility] Comment on above: Order Comment: Brittneyi kelly Type: TISSUE SPECIMENOrdering Facility: [facility] Address: [address] [place] [address] Result Comment: [facility] Pathology Report Case: [id number] Authorizing Provider: Katrina Urena MD Collected: 06/08/2022 12:47 PM Ordering Location: Gastroenterology Received: 06/08/2022 03:49 PM Pathologist: Sky Alvarenga MD Specimens: A) - STOMACH BIOPSY, gastric antrum B) - STOMACH BIOPSY, gastric antrum nodule C) - ESOPHAGUS BIOPSY, @41 D) - ESOPHAGUS BIOPSY, @39 E) - ESOPHAGUS BIOPSY, @38 Performed By: #### S ####[facility] VerifyCREST LABORATORYCLIA [id number] [address] DIAGNOSIS COMMENT H. pylori immunostai n is pending. Normal [facility] Comment on above: Order Comment: Jay mendoza Type: TISSUE SPECIMENOrdering Facility: [facility] Address: [address] [place] [address] Performed By: #### S ####[facility]ST LABORATORYCLIA [id number] [address] FINAL DIAGNOSIS Normal [facility] Comment on above: Order Comment: Jay mendoza Type: TISSUE SPECIMENOrdering Facility: [facility] Address: [address] [place] [address] Result Comment: Yoanna Patel tomach, biopsy: - Antral mucosa with chronic [...] negative for dysplasia. Performed By: #### S ####[facility] LABORATORYCLIA [id number] [address] [place] FINAL PERFORMING LAB Normal [facility] Comment on above: Order Comment: Speci men Type: TISSUE SPECIMENOrdering Facility: [facility] Address: [address] [address] Result Comment: Diag nostic interpretation performed at [facility], [address], [place] [address] CLIA# [id number] Stock Preparer: Nellie Galvin M.D. Performed By: #### S ####[facility] LABORATORYCLIA [id number] [address] GROSS DESCRIPTION Normal [facility] Comment on above: Order Comment: Speci men Type: TISSUE SPECIMENOrdering Facility: [facility] Address: [address] [address] Result Comment: A. S TOMACH BIOPSY Received [...] one cassette. 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 Type of instruction given: Verbal by telephone contact. Dee Marin RN Allergies As of Date: 06/01/2022 (Not on File) Date Reviewed: Never Reviewed Reason for Visit: Appointment Confirmation [[id number]] Problem List As Of Date: 06/01/2022 (None) Encounter Status:Closed by DEE MARIN on 06/01/22 Normal [facility] Anibal 04-26-2022 CNPN Telephone (GASTPR) JAS GONZALEZ ([id number]) 1950 M DEF Date Time Provider Department 04/26/22 MARGUERITE POTTS GASTPR During your visit today, we recorded the following information about you: Marguerite Potts RN 04/26/2022 3:44 PM Signed Attempted to reach the patient at the contact number that they provided [phone] (home) . 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 they must have a responsible adult [...] Number to call with questions or concerns [phone] Number to call to cancel their procedure [phone] Marguerite Potts RN Allergies As of Date: 04/26/2022 (Not on File) Date Reviewed: Never Reviewed Reason for Visit: Appointment Confirmation [[id number]] Problem List As Of Date: 04/26/2022 (None) Encounter Status:Closed by MARGUERITE POTTS on 04/26/22 [facility] CBC panel Auto (Bld)on 04-09 Erythrocyte distribution width (RBC) [Ratio] 13.3 % 11.5 - 15.0 % [facility] Hematocrit (Bld) [Volume fraction] 46.8 % 39.0 - 51.0 % [facility] Hemoglobin (Bld) [Mass/Vol] 15.1 g/dL 13.0 - 17.0 g/dL [facility] MCH (RBC) [Entitic mass] 30.7 pg 26.0 - 34.0 pg [facility] MCHC (RBC) [Mass/Vol] 32.3 g/dL 30.5 - 36.0 g/dL [facility] MCV (RBC) [Entitic vol] 95.1 fL 80.0 - 100.0 fL [facility] Nucleated RBC (Bld) [#/Vol] <0.01 k/uL [facility] Platelet mean volume (Bld) [Entitic vol] 10.8 fL 9.0 - 12.7 fL [facility] Platelets (Bld) [#/Vol] 165 10*3/uL 150 - 400 k/uL [facility] RBC (Bld) [#/Vol] 4.92 10*6/uL 4.20 - 6.00 m/uL [facility] WBC (Bld) [#/Vol] 8.48 10*3/uL 3.70 - 11.00 k/u L [facility] Erythrocyte distribution width (RBC) [Ratio] 13.3 % Normal 11.5-15.0 [facility] Comment on above: Order Comment: Speci men Type: BLOOD SPECIMENOrdering Facility: [facility] Address: [address] [place] [address] Performed By: #### 5 8410-2 ####[facility] [id number] [place] [address] [place] [facility] Hematocrit (Bld) [Volume fraction] 46.8 % Normal 39.0-51.0 [facility] Comment on above: Order Comment: Speci men Type: BLOOD SPECIMENOrdering Facility: [facility] Address: [address] [place] [address] Performed By: #### 5 8410-2 ####[facility] [id number] [place] [address] [place] Hemoglobin (Bld) [Mass/Vol] 15.1 g/dL Normal 13.0-17.0 [facility] Comment on above: Order Comment: Speci men Type: BLOOD SPECIMENOrdering Facility: [facility] Address: [address] [place], [place] [address] Performed By: #### 5 8410-2 ####[facility] [id number] [address] [place] [facility] MCH (RBC) [Entitic mass] 30.7 pg Normal 26.0-34.0 [facility] Comment on above: Order Comment: Speci men Type: BLOOD SPECIMENOrdering Facility: [facility] Address: [address] [place], [place] [address] Performed By: #### 5 8410-2 ####[facility] [id number] [address] [place] MCHC (RBC) [Mass/Vol] 32.3 g/dL Normal 30.5-36.0 [facility] Comment on above: Order Comment: Speci men Type: BLOOD SPECIMENOrdering Facility: [facility] Address: [address] [place], [place] [address] Performed By: #### 5 8410-2 ####[facility] [id number] [address] [place] MCV (RBC) [Entitic vol] 95.1 fL Normal 80.0-100.0 [facility] Comment on above: Order Comment: Speci men Type: BLOOD SPECIMENOrdering Facility: [facility] Address: [address] [place], [place] [address] Performed By: #### 5 8410-2 ####[facility] [id number] [address] [place] Nucleated RBC (Bld) [#/Vol] 10*3/uL Normal <0.01 [facility] Comment on above: Order Comment: Speci men Type: BLOOD SPECIMENOrdering Facility: [facility] Address: [address] [place] [address] Performed By: #### 5 8410-2 ####[facility] [id number] [place] [address] [place] Platelet mean volume (Bld) [Entitic vol] 10.8 fL Normal 9.0-12.7 [facility] Comment on above: Order Comment: Speci men Type: BLOOD SPECIMENOrdering Facility: [facility] Address: [address] [place] [address] Performed By: #### 5 8410-2 ####[facility] [id number] [place] [address] [place] Platelets (Bld) [#/Vol] 165 10*3/uL Normal 150-400 [facility] Comment on above: Order Comment: Speci men Type: BLOOD SPECIMENOrdering Facility: [facility] Address: [address] [place] [address] Performed By: #### 5 8410-2 ####[facility] [id number] [place] [address] [place] RBC (Bld) [#/Vol] 4.92 10*6/uL Normal 4.20-6.00 [facility] Comment on above: Order Comment: Speci men Type: BLOOD SPECIMENOrdering Facility: [facility] Address: [address] [place] [address] Performed By: #### 5 8410-2 ####[facility] [id number] [place] [address] [place] WBC (Bld) [#/Vol] 8.48 10*3/uL Normal 3.70-11.00 [facility] Comment on above: Order Comment: Speci men Type: BLOOD SPECIMENOrdering Facility: [facility] Address: [address] [place] [address] Performed By: #### 5 8410-2 ####[facility] [id number] CELSOFrnaky [address] [place] CNOVon 04-09-2022 CNOV Office Visit (GASTQ3 ) JAS GONZALEZ ([id number]) 1950 M DEF Date Time Provider Department [...] [facility] GERD with hiatal hernia 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 [place] classification C 40, M 35. Biopsy collected. [...] Past Histories independently gathered by the clinical marketing support specialist and the remaining scribed note accurately describes my personal service to the patient. Katrina Urena M.D. Office:[phone] Appointments [phone] (more content not included)... Normal [facility] Comprehensive metabolic 2000 panelon 04-09-2022 Albumin [Mass/Vol] 4.4 g/dL Normal 3.9-4.9 [facility] Comment on above: Order Comment: Speci men Type: BLOOD SPECIMENOrdering Facility: [facility] Address: [address] [address] Performed By: #### 2 4323-8 ####[facility] [id number] [place] [address] [place] [facility] ALP [Catalytic activity/Vol] 70 U/L Normal 38-113 [facility] Comment on above: Order Comment: Speci men Type: BLOOD SPECIMENOrdering Facility: [facility] Address: [address] [address] Performed By: #### 2 4323-8 ####[facility] [id number] [address] [place] ALT [Catalytic activity/Vol] 33 U/L Normal 10-54 [facility] Comment on above: Order Comment: Speci men Type: BLOOD SPECIMENOrdering Facility: [facility] Address: [address] [place] [address] Performed By: #### 2 4323-8 ####[facility] [id number] [place] [address] [place] Anion gap [Moles/Vol] 12 mmol/L Normal 9-18 [facility] Comment on above: Order Comment: Speci men Type: BLOOD SPECIMENOrdering Facility: [facility] Address: [address] [place] [address] Performed By: #### 2 4323-8 ####[facility] [id number] [place] [address] [place] AST [Catalytic activity/Vol] 32 U/L Normal 14-40 [facility] Comment on above: Order Comment: Speci men Type: BLOOD SPECIMENOrdering Facility: [facility] Address: [address] [place], [place] [address] Performed By: #### 2 4323-8 ####[facility] [id number] [place] [address] [place] Bilirubin [Mass/Vol] 0.4 mg/dL Normal 0.2-1.3 [facility] Comment on above: Order Comment: Speci men Type: BLOOD SPECIMENOrdering Facility: [facility] Address: [address] [place] [phone] Performed By: #### 2 4323-8 ####[facility] [id number] [place] [address] [place] Calcium [Mass/Vol] 9.9 mg/dL Normal 8.5-10.2 [facility] Comment on above: Order Comment: Speci men Type: BLOOD SPECIMENOrdering Facility: [facility] Address: [address] [place], [place] [phone] Performed By: #### 2 4323-8 ####[facility] [id number] [place] [id number] [place] Chloride [Moles/Vol] 100 mmol/L Normal 97-105 [facility] Comment on above: Order Comment: Speci men Type: BLOOD SPECIMENOrdering Facility: [facility] Address: [address] [place] [address] Performed By: #### 2 4323-8 ####[facility] [id number] [place] [address] [place] CO2 [Moles/Vol] 27 mmol/L Normal 22-30 [facility] Comment on above: Order Comment: Speci men Type: BLOOD SPECIMENOrdering Facility: [facility] Address: [address] [place] [address] Performed By: #### 2 4323-8 ####[facility] [id number] [place] [address] [place] Creatinine [Mass/Vol] 0.92 mg/dL Normal 0.73-1.22 [facility] Comment on above: Order Comment: Speci men Type: BLOOD SPECIMENOrdering Facility: [facility] Address: [address] [place] [address] Performed By: #### 2 4323-8 ####[facility] [id number] [address] [place] ESTIMATED GLOMERULAR FILTRATION RATE 87 mL/min/1.73m??? Normal >=60 [facility] Comment on above: Order Comment: Speci men Type: BLOOD SPECIMENOrdering Facility: [facility] Address: [address] [place] [address] Result Comment: Aminta mated Glomerular Filtration Rate [...] GFR. Performed By: #### 2 4323-8 ####[facility] [id number] [address] [address] [place] Glucose [Mass/Vol] 99 mg/dL Normal 74-99 [facility] Comment on above: Order Comment: Speci men Type: BLOOD SPECIMENOrdering Facility: [facility] Address: [address] [place] [address] Result Comment: The [place] Diabetes Association (ADA) provides guidance for cutoff [...] Standards of Medical Care in Diabetes 2016, [place] [employer]. Diabetes Care. 2016.39(Suppl 1). Performed By: #### 2 4323-8 ####[facility] [id number] [place] [address] [place] Potassium [Moles/Vol] 4.2 mmol/L Normal 3.7-5.1 [facility] Comment on above: Order Comment: Speci men Type: BLOOD SPECIMENOrdering Facility: [facility] Address: [address] Performed By: #### 2 4323-8 ####[facility] [id number] [place] [address] [place] Protein [Mass/Vol] 7.7 g/dL Normal 6.3-8.0 [facility] Comment on above: Order Comment: Speci men Type: BLOOD SPECIMENOrdering Facility: [facility] Address: [address] [place], [place] [address] Performed By: #### 2 4323-8 ####[facility] [id number] [place] [address] [place] Sodium [Moles/Vol] 139 mmol/L Normal 136-144 [facility] Comment on above: Order Comment: Speci men Type: BLOOD SPECIMENOrdering Facility: [facility] Address: [address] [place] [address] Performed By: #### 2 4323-8 ####[facility] [id number] [place] [address] [place] Urea nitrogen [Mass/Vol] 16 mg/dL Normal 9-24 [facility] Comment on above: Order Comment: Speci men Type: BLOOD SPECIMENOrdering Facility: [facility] Address: [address] [place] [address] Performed By: #### 2 4323-8 ####[facility] [id number] [address] [place] CHEMISTRYOrdered By: Alia [facility] on 09-07-2021 HbA1c (Bld) [Mass fraction] 6.3 % High <=5.9% [facility] [employer] Vital Signs Date Time Vital Sign Value Performing Clinician Facility 09-24-2023 10:19-0500 Blood Pressure Location [facility] 09-24-2023 10:19-0500 Diastolic blood pressure 62 mm[Hg] [facility] 09-24-2023 10:19-0500 Heart rate 82 /min Mt NanoogoLE [facility] 09-24-2023 10:19-0500 Respiratory rate 15 /min [facility] GAMINGLE [facility] 09-24-2023 10:19-0500 SaO2% (BldA) [Mass fraction] 95 % Mt [employer] [facility] 09-24-2023 10:19-0500 Systolic blood pressure 138 mm[Hg] Mt GOODEN [facility] 09-20-2023 15:45-0500 Diastolic blood pressure 82 mm[Hg] Kevin Brizuela [facility] 09-20-2023 15:45-0500 Heart rate 78 /min Kevin Wilsone [facility] 09-20-2023 15:45-0500 Mean blood pressure 101 mm[Hg] Kevin [place] [facility] 09-20-2023 15:45-0500 Respiratory rate 13 /min Kevin Brizuela [facility] 09-20-2023 15:45-0500 SaO2% (BldA) [Mass fraction] 97 % Kevin [place] [facility] 09-20-2023 15:45-0500 Systolic blood pressure 138 mm[Hg] Kevin [place] [facility] 09-20-2023 14:53-0500 Body temperature 97.7 [degF] Kevin Brizuela [facility] 09-20-2023 14:53-0500 Diastolic blood pressure 50 mm[Hg] Kevin [place] [facility] 09-20-2023 14:53-0500 Heart rate 76 /min Kevin [place] [facility] 09-20-2023 14:53-0500 Respiratory rate 18 /min Kevin [place] [facility] 09-20-2023 14:53-0500 SaO2% (BldA) [Mass fraction] 97 % Kevin [place] [facility] 09-20-2023 14:53-0500 Systolic blood pressure 100 mm[Hg] Kevin Brizuela [facility] 09-20-2023 13:54-0500 Body temperature 97.7 [degF] Kevin Brizuela [facility] 09-20-2023 13:54-0500 Diastolic blood pressure 79 mm[Hg] Kevin Brizuela [facility] 09-20-2023 13:54-0500 Heart rate 91 /min Kevin Brizuela [facility] 09-20-2023 13:54-0500 SaO2% (BldA) [Mass fraction] 99 % Kevin Brizuela [facility] 09-20-2023 13:54-0500 Systolic blood pressure 119 mm[Hg] Kevin Brizuela [facility] 08-26-2023 09:39-0500 Blood Pressure Location [facility] 08-26-2023 09:39-0500 Diastolic blood pressure 70 mm[Hg] [facility] 08-26-2023 09:39-0500 Heart rate 83 /min [facility] 08-26-2023 09:39-0500 SaO2% (BldA) [Mass fraction] 95 % [facility] 08-26-2023 09:39-0500 Systolic blood pressure 122 mm[Hg] [facility] 07-17-2023 09:46-0500 Blood Pressure Location Basem Murillo [facility] 07-17-2023 09:46-0500 Diastolic blood pressure 72 mm[Hg] Basem Murillo [facility] 07-17-2023 09:46-0500 Heart rate 81 /min Basem Murillo [facility] 07-17-2023 09:46-0500 SaO2% (BldA) [Mass fraction] 95 % Basem Murillo [facility] 07-17-2023 09:46-0500 Systolic blood pressure 102 mm[Hg] Basem Murillo [facility] 07-09-2023 10:05-0500 Heart rate 83 /min Mhd Al-Marrawi [facility] 07-09-2023 10:05-0500 SaO2% (BldA) [Mass fraction] 95 % Mhd Al-Marrawi [facility] 07-09-2023 10:05-0500 Body temperature 97.52 [degF] Mhd Al-Marrawi [facility] 07-09-2023 10:04-0500 Diastolic blood pressure 69 mm[Hg] Mhd Al-Marrawi [facility] 07-09-2023 10:04-0500 Mean blood pressure 84 mm[Hg] Mhd Al-Marrawi [facility] 07-09-2023 10:04-0500 Systolic blood pressure 113 mm[Hg] Mhd Al-Marrawi [facility] 07-09-2023 10:04-0500 Respiratory rate 20 /min Mhd Al-Marrawi [facility] 06-26-2023 09:42-0500 Blood Pressure Location Basem Murillo [facility] 06-26-2023 09:42-0500 Diastolic blood pressure 69 mm[Hg] Basejessica Murillo [facility] 06-26-2023 09:42-0500 Heart rate 84 /min Basejessica Murillo [facility] 06-26-2023 09:42-0500 SaO2% (BldA) [Mass fraction] 96 % [facility] 06-26-2023 09:42-0500 Systolic blood pressure 106 mm[Hg] [facility] 06-03-2023 13:35-0400 Blood Pressure Location [facility] 06-03-2023 13:35-0400 Body temperature 98.42 [degF] Tm KAPLE [facility] 06-03-2023 13:35-0400 Diastolic blood pressure 62 mm[Hg] [facility] 06-03-2023 13:35-0400 Heart rate 78 /min [facility] 06-03-2023 13:35-0400 Respiratory rate 22 /min [facility] 06-03-2023 13:35-0400 SaO2% (BldA) [Mass fraction] 94 % [facility] 06-03-2023 13:35-0400 Systolic blood pressure 104 mm[Hg] [facility] 04-09-2023 10:00-0400 Blood Pressure Location Mitch Amaro [facility] 04-09-2023 10:00-0400 Body temperature 98.42 [degF] Mitch Amaro [facility] 04-09-2023 10:00-0400 Diastolic blood pressure 68 mm[Hg] Mitch Amaro [facility] 04-09-2023 10:00-0400 Heart rate 90 /min Mitchkatya Amaro [facility] 04-09-2023 10:00-0400 Mean blood pressure 80 mm[Hg] Mitch Amaro [facility] 04-09-2023 10:00-0400 Respiratory rate 22 /min Mitchkatya Amaro [facility] 04-09-2023 10:00-0400 SaO2% (BldA) [Mass fraction] 93 % Mitchkatya Amaro [facility] 04-09-2023 10:00-0400 Systolic blood pressure 104 mm[Hg] Mitchkatya Amaro [facility] 03-13-2023 14:00-0400 Hourly Rounding Jordan Dianne [facility] 03-13-2023 14:00-0400 Promise to Return Jordan Dianne [facility] 03-13-2023 04:00-0400 Diastolic blood pressure 65 mm[Hg] Jordan Dianne [facility] 03-13-2023 04:00-0400 Heart rate 85 /min Jordan Dianne [facility] 03-13-2023 04:00-0400 Hourly Rounding Jordan Dianne [facility] 03-13-2023 04:00-0400 Mean blood pressure 81 mm[Hg] Jordan Dianne [facility] 03-13-2023 04:00-0400 Promise to Return Jordan Dianne [facility] 03-13-2023 04:00-0400 SaO2% (BldA) [Mass fraction] 94 % Jordan Dianne [facility] 03-13-2023 04:00-0400 Systolic blood pressure 112 mm[Hg] Jordan Dianne [facility] 03-13-2023 03:44-0400 Diastolic blood pressure 63 mm[Hg] Jordan Dianne [facility] 03-13-2023 03:44-0400 Heart rate 82 /min Jordan Dianne [facility] 03-13-2023 03:44-0400 Mean blood pressure 78 mm[Hg] Jordan Dianne [facility] 03-13-2023 03:44-0400 SaO2% (BldA) [Mass fraction] 96 % Jordan Dianne [facility] 03-13-2023 03:44-0400 Systolic blood pressure 108 mm[Hg] Jordan Dianne [facility] 03-13-2023 03:00-0400 Diastolic blood pressure 67 mm[Hg] Jordan Dianne [facility] 03-13-2023 03:00-0400 Heart rate 81 /min Jordan Dianne [facility] 03-13-2023 03:00-0400 Hourly Rounding Jordan Dianne [facility] 03-13-2023 03:00-0400 Mean blood pressure 84 mm[Hg] Jordan Dianne [facility] 03-13-2023 03:00-0400 Promise to Return Jordan Dianne [facility] 03-13-2023 03:00-0400 Systolic blood pressure 118 mm[Hg] Jordan Dianne [facility] 03-13-2023 02:22-0400 Body temperature 97.52 [degF] Jordan Dianne [facility] 03-13-2023 02:22-0400 Heart rate 83 /min Jordan Dianne [facility] 03-13-2023 02:22-0400 Respiratory rate 16 /min Jordan Dianne [facility] 03-11-2023 10:00-0400 Blood Pressure Location Mhd Al-Marrawi [facility] 03-11-2023 10:00-0400 Body temperature 97.7 [degF] Mhd Al-Marrawi [facility] 03-11-2023 10:00-0400 Diastolic blood pressure 65 mm[Hg] Mhd Al-Marrawi [facility] 03-11-2023 10:00-0400 Heart rate 93 /min d Al-Marrawi [facility] 03-11-2023 10:00-0400 Mean blood pressure 77 mm[Hg] Mhd Al-Marrawi [facility] 03-11-2023 10:00-0400 Respiratory rate 22 /min Mhd Al-Marrawi [facility] 03-11-2023 10:00-0400 SaO2% (BldA) [Mass fraction] 94 % Mhd Al-Marrawi [facility] 03-11-2023 10:00-0400 Systolic blood pressure 100 mm[Hg] Mhd Al-Marrawi [facility] 02-19-2023 16:33-0400 Hourly Rounding [facility] 02-19-2023 16:33-0400 Promise to Return Kate Sheriffanshu [facility] 02-19-2023 16:00-0400 [facility] 02-19-2023 16:00-0400 Promise to Return [facility] 02-19-2023 15:29-0400 Heart rate 86 /min [facility] 02-19-2023 15:29-0400 SaO2% (BldA) [Mass fraction] 94 % [facility] 02-19-2023 15:28-0400 Diastolic blood pressure 86 mm[Hg] [facility] 02-19-2023 15:28-0400 Mean blood pressure 103 mm[Hg] [facility] 02-19-2023 15:28-0400 Systolic blood pressure 136 mm[Hg] [facility] 02-19-2023 15:28-0400 Body temperature 97.7 [degF] [facility] 02-19-2023 15:00-0400 Blood Pressure Location [facility] 02-19-2023 15:00-0400 Hourly Rounding [facility] 02-19-2023 15:00-0400 Promise to Return [facility] 02-19-2023 15:00-0400 Respiratory rate 16 /min [facility] 02-19-2023 11:33-0400 Heart rate 83 /min [facility] 02-19-2023 11:33-0400 SaO2% (BldA) [Mass fraction] 93 % [facility] 02-19-2023 11:33-0400 Body temperature 98.42 [degF] [facility] 02-19-2023 11:33-0400 Diastolic blood pressure 92 mm[Hg] [facility] 02-19-2023 11:33-0400 Mean blood pressure 109 mm[Hg] [facility]23 11:33-0400 Systolic blood pressure 144 mm[Hg] [facility] 02-19-2023 08:18-0400 SaO2% (BldA) [Mass fraction] 93 % [facility] 02-19-2023 08:13-0400 Heart rate 56 /min mad [facility] 02-19-2023 08:13-0400 Diastolic blood pressure 80 mm[Hg] Aidenmad [facility] 02-19-2023 08:13-0400 Mean blood pressure 94 mm[Hg] [facility] 02-19-2023 08:13-0400 Systolic blood pressure 121 mm[Hg] [facility] 02-19-2023 08:13-0400 Body temperature 97.52 [degF] [facility] 02-19-2023 08:00-0400 Respiratory rate 14 /min [facility] 02-18-2023 20:48-0400 gluc 173 mg/dL [facility] 02-18-2023 16:38-0400 Heart rate 65 /min [facility] 02-18-2023 15:30-0400 Mean blood pressure 101 mm[Hg] [facility] 15:30-0400 Respiratory rate 24 /min [facility] 02-18-2023 15:21-0400 Mean blood pressure 92 mm[Hg] [facility] 02-18-2023 15:17-0400 Mean blood pressure 92 mm[Hg] [facility] 02-18-2023 08:50-0400 Heart rate 94 /min [facility] 02-18-2023 07:56-0400 Blood Pressure Location [facility] 02-18-2023 07:56-0400 Body temperature 98.6 [degF] [facility] 02-18-2023 07:56-0400 Diastolic blood pressure 62 mm[Hg] [facility] 02-18-2023 07:56-0400 Heart rate 91 /min [facility] 02-18-2023 07:56-0400 Respiratory rate 20 /min [facility] 02-18-2023 07:56-0400 SaO2% (BldA) [Mass fraction] 90 % [facility] 02-18-2023 07:56-0400 Systolic blood pressure 120 mm[Hg] [facility] 12-10-2022 10:02-0400 Blood Pressure Location [facility] 12-10-2022 10:02-0400 Body temperature 98.6 [degF] [facility] 12-10-2022 10:02-0400 Diastolic blood pressure 72 mm[Hg] [facility] 12-10-2022 10:02-0400 Heart rate 89 /min [facility] 12-10-2022 10:02-0400 Respiratory rate 18 /min [facility] 12-10-2022 10:02-0400 SaO2% (BldA) [Mass fraction] 97 % [facility] 12-10-2022 10:02-0400 Systolic blood pressure 136 mm[Hg] [facility] 12-05-2022 12:56-0400 Body weight 154.22 kg Juma Monk MD Work Phone: [facility] 12-05-2022 12:56-0400 Diastolic blood pressure 74 mm[Hg] Juma Monk MD Work Phone: [facility] 12-05-2022 12:56-0400 Heart rate 83 /min Juma Monk MD Work Phone: [facility] 12-05-2022 12:56-0400 Respiratory rate 18 /min Juma Monk MD Work Phone: [facility] 12-05-2022 12:56-0400 SaO2% (BldA) [Mass fraction] 95 % Juma Monk MD Work Phone: [facility] 12-05-2022 12:56-0400 Systolic blood pressure 118 mm[Hg] Juma Monk MD Work Phone: [facility] 12-02-2022 15:22-0400 Diastolic blood pressure 84 mm[Hg] [facility] 12-02-2022 15:22-0400 Heart rate 78 /min [facility] 12-02-2022 15:22-0400 Mean blood pressure 105 mm[Hg] [facility] 12-02-2022 15:22-0400 Respiratory rate 18 /min [facility] 12-02-2022 15:22-0400 SaO2% (BldA) [Mass fraction] 96 % [facility] 12-02-2022 15:22-0400 Systolic blood pressure 148 mm[Hg] [facility] 12-02-2022 12:08-0400 Body temperature 98.78 [degF] [facility] 12-02-2022 12:08-0400 Diastolic blood pressure 90 mm[Hg] [facility] 12-02-2022 12:08-0400 Heart rate 73 /min [facility] 12-02-2022 12:08-0400 Respiratory rate 18 /min [facility] 12-02-2022 12:08-0400 SaO2% (BldA) [Mass fraction] 95 % [facility] 12-02-2022 12:08-0400 Systolic blood pressure 152 mm[Hg] [facility] 11-29-2022 09:53-0400 Diastolic blood pressure 66 mm[Hg] Pawan Zumbar [facility] 11-29-2022 09:53-0400 Heart rate 85 /min Pawan Zumbar [facility] 11-29-2022 09:53-0400 Mean blood pressure 84 mm[Hg] Pawan Zumbar [facility] 11-29-2022 09:53-0400 Systolic blood pressure 121 mm[Hg] Pawan Zumbar [facility] 11-14-2022 13:23-0400 Body height 185.4 cm Juma Monk MD Work Phone: [facility] 11-14-2022 13:23-0400 Body weight 151.5 kg Juma Monk MD Work Phone: [facility] 11-14-2022 13:23-0400 Diastolic blood pressure 63 mm[Hg] Juma Monk MD Work Phone: [facility] 11-14-2022 13:23-0400 Heart rate 73 /min Juma Monk MD Work Phone: [facility] 11-14-2022 13:23-0400 Systolic blood pressure 121 mm[Hg] Juma Monk MD Work Phone: [facility] 11-08-2022 10:04-0400 Blood Pressure Location [facility] 11-08-2022 10:04-0400 Body temperature 97.7 [degF] [facility] 11-08-2022 10:04-0400 Diastolic blood pressure 80 mm[Hg] [facility] 11-08-2022 10:04-0400 Heart rate 72 /min [facility] 11-08-2022 10:04-0400 Respiratory rate 18 /min [facility] 11-08-2022 10:04-0400 SaO2% (BldA) [Mass fraction] 96 % [facility] 11-08-2022 10:04-0400 Systolic blood pressure 130 mm[Hg] [facility] 10-24-2022 08:59-0400 Heart rate 63 /min Pawan Zumbar [facility] 10-24-2022 08:59-0400 SaO2% (BldA) [Mass fraction] 95 % Pawan Zumbar [facility] 10-24-2022 08:59-0400 Diastolic blood pressure 77 mm[Hg] Pawan Zumbar [facility] 10-24-2022 08:59-0400 Mean blood pressure 90 mm[Hg] Pawan Zumbar [facility] 10-24-2022 08:59-0400 Systolic blood pressure 118 mm[Hg] Pawan Zumbar [facility] 10-24-2022 08:48-0400 Diastolic blood pressure 108 mm[Hg] Pawan Zumbar [facility] 10-24-2022 08:48-0400 Heart rate 66 /min Pawan Zumbar [facility] 10-24-2022 08:48-0400 Respiratory rate 18 /min Pawan Zumbar [facility] 10-24-2022 08:48-0400 SaO2% (BldA) [Mass fraction] 92 % Pawan Zumbar [facility] 10-24-2022 08:48-0400 Systolic blood pressure 153 mm[Hg] Pawan Zumbar [facility] 10-24-2022 07:25-0400 Heart rate 72 /min Pawan Zumbar [facility] 10-24-2022 07:25-0400 SaO2% (BldA) [Mass fraction] 93 % Pawan Zumbar [facility] 10-24-2022 07:25-0400 Diastolic blood pressure 67 mm[Hg] Pawan Zumbar [facility] 10-24-2022 07:25-0400 Mean blood pressure 81 mm[Hg] Pawan Zumbar [facility] 10-24-2022 07:25-0400 Systolic blood pressure 109 mm[Hg] Pawan Zumbar [facility] 10-24-2022 07:25-0400 Body temperature 97.7 [degF] Pawan Zumbar [facility] 10-24-2022 07:25-0400 Respiratory rate 16 /min Pawan Zumbar [facility] 09-27-2022 09:21-0500 Diastolic blood pressure 69 mm[Hg] Pawan Zumbar [facility] 09-27-2022 09:21-0500 Heart rate 75 /min Pawan Zumbar [facility] 09-27-2022 09:21-0500 Mean blood pressure 83 mm[Hg] Pawan Zumbar [facility] 09-27-2022 09:21-0500 Systolic blood pressure 111 mm[Hg] Pawan Zumbar [facility] 09-14-2022 10:47-0500 Blood Pressure Location [facility] 09-14-2022 10:47-0500 Body temperature 98.96 [degF] [facility] 09-14-2022 10:47-0500 Diastolic blood pressure 74 mm[Hg] [facility] 09-14-2022 10:47-0500 Heart rate 73 /min [facility] 09-14-2022 10:47-0500 SaO2% (BldA) [Mass fraction] 93 % [facility] 09-14-2022 10:47-0500 Systolic blood pressure 130 mm[Hg] [facility] 08-28-2022 10:42-0500 Blood Pressure Location [facility] 08-28-2022 10:42-0500 Body temperature 97.7 [degF] [facility] 08-28-2022 10:42-0500 Diastolic blood pressure 72 mm[Hg] [facility] 08-28-2022 10:42-0500 Heart rate 74 /min [facility] 08-28-2022 10:42-0500 SaO2% (BldA) [Mass fraction] 94 % [facility] 08-28-2022 10:42-0500 Systolic blood pressure 106 mm[Hg] [facility] 08-23-2022 14:33-0500 Diastolic blood pressure 73 mm[Hg] Pawan Zumbar [facility] 08-23-2022 14:33-0500 Heart rate 67 /min Pawan Zumbar [facility] 08-23-2022 14:33-0500 Mean blood pressure 88 mm[Hg] Pawan Zumbar [facility] 08-23-2022 14:33-0500 Respiratory rate 20 /min Pawan Zumbar [facility] 08-23-2022 14:33-0500 Systolic blood pressure 118 mm[Hg] Pawan Zumbar [facility] 08-23-2022 07:44-0500 Blood Pressure Location [facility] 08-23-2022 07:44-0500 Body temperature 97.88 [degF] [facility] 08-23-2022 07:44-0500 Diastolic blood pressure 78 mm[Hg] [facility] 08-23-2022 07:44-0500 Heart rate 78 /min [facility] 08-23-2022 07:44-0500 Respiratory rate 16 /min [facility] 08-23-2022 07:44-0500 SaO2% (BldA) [Mass fraction] 94 % [facility] 08-23-2022 07:44-0500 Systolic blood pressure 130 mm[Hg] [facility] 08-01-2022 17:02-[address] [facility] 08-01-2022 17:02-0500 Body temperature 97.88 [degF] [facility] 08-01-2022 17:02-0500 Diastolic blood pressure 70 mm[Hg] [facility] 08-01-2022 17:02-0500 Heart rate 85 /min [facility] 08-01-2022 17:02-0500 SaO2% (BldA) [Mass fraction] 92 % [facility] 08-01-2022 17:02-0500 Systolic blood pressure 120 mm[Hg] [facility] 06-22-2022 12:00-0500 Diastolic blood pressure 70 mm[Hg] [facility] 06-22-2022 12:00-0500 Mean blood pressure 90 mm[Hg] [facility] 06-22-2022 12:00-0500 Systolic blood pressure 130 mm[Hg] [facility] 06-22-2022 11:52-[address] [facility] 06-22-2022 11:52-0500 Body temperature 98.24 [degF] [facility] 06-22-2022 11:52-0500 Diastolic blood pressure 98 mm[Hg] [facility] 06-22-2022 11:52-0500 Heart [facility] 73 /[facility] 06-22-2022 11:52-0500 SaO2% (BldA) [Mass fraction] 95 % [facility] 06-22-2022 11:52-0500 Systolic blood pressure 140 mm[Hg] [place] [facility] 06-08-2022 13:40-0400 Diastolic blood pressure 76 mm[Hg] Katrina Urena MD Work Phone: [facility] 06-08-2022 13:40-0400 Heart rate 77 /min Katrina Urena MD Work Phone: [facility] 06-08-2022 13:40-0400 Respiratory rate 16 /min Katrina Uerna MD Work Phone: [facility] 06-08-2022 13:40-0400 SaO2% (BldA) [Mass fraction] 94 % Katrina Urena MD Work Phone: [facility] 06-08-2022 13:40-0400 Systolic blood pressure 119 mm[Hg] Katrina Urena MD Work Phone: [facility] 06-08-2022 13:03-0400 Body temperature 97.7 [degF] Katrina Urena MD Work Phone: [facility] 06-08-2022 12:10-0400 Body height 185.4 cm Katrina Urena MD Work Phone: [facility] 06-08-2022 12:10-0400 Body weight 144.24 kg Katrina Urena MD Work Phone: [facility] 02-22-2022 09:29-0400 Blood Pressure Location Gonzales DIAZKonstantin [facility] [place] 02-22-2022 09:29-0400 Diastolic blood pressure 76 mm[Hg] Gonzales NILL [facility] [place] 02-22-2022 09:29-0400 Heart rate 78 /min Gonzales NILL [facility] [place] 02-22-2022 09:29-0400 Respiratory rate 16 /min Gonzales NILL [facility] [place] 02-22-2022 09:29-0400 Systolic blood pressure 120 mm[Hg] Gonzales NILL [facility] [place] 02-20-2022 07:43-0400 Blood Pressure Location [facility] 02-20-2022 07:43-0400 Body temperature 97.88 [degF] [facility] 02-20-2022 07:43-0400 Diastolic blood pressure 72 mm[Hg] [facility] 02-20-2022 07:43-0400 Heart rate 81 /min [facility] 02-20-2022 07:43-0400 Respiratory rate 18 /min [facility] 02-20-2022 07:43-0400 SaO2% (BldA) [Mass fraction] 94 % [facility] 02-20-2022 07:43-0400 Systolic blood pressure 124 mm[Hg] [facility] 12-14-2021 15:06-0400 Blood Pressure Location [facility] 12-14-2021 15:06-0400 Body temperature 98.06 [degF] [facility] 12-14-2021 15:06-0400 Diastolic blood pressure 72 mm[Hg] [facility] 12-14-2021 15:06-0400 Heart rate 70 /min [facility] 12-14-2021 15:06-0400 Respiratory rate 18 /min [facility] 12-14-2021 15:06-0400 SaO2% (BldA) [Mass fraction] 93 % [facility] 12-14-2021 15:06-0400 Systolic blood pressure 122 mm[Hg] [facility] Encounters Encounter Date Encounter Type Care Provider Facility Start: 09-25-2023 End: 09-26-2023 ambulatory [facility] Facility:[facility] Start: 09-25-2023 End: 09-25-2023 Patient encounter procedure [facility] Start: 09-24-2023 End: 09-25-2023 ambulatory [facility] Facility:[facility] Start: 09-24-2023 End: 09-24-2023 Patient encounter procedure [facility] Start: 09-20-2023 End: 09-20-2023 Emergency department patient visit Kevin Brizuela Facility:[facility] Start: 09-20-2023 End: 09-20-2023 Emergency department patient visit Kevin Gelacio [facility] Start: 09-12-2023 ambulatory [facility] A [facility] Facility: [facility] Start: 09-05-2023 End: 09-06-2023 ambulatory Mt A MAMTA Facility:[facility] Start: 09-04-2023 End: 09-05-2023 ambulatory Mt A AMBERLYLE Facility:[facility] Start: 09-04-2023 End: 09-04-2023 Patient encounter procedure Mt A M[facility] Start: 08-26-2023 End: 08-27-2023 ambulatory Mt A AMBERLYLE Facility:[facility] Start: 08-26-2023 End: 08-26-2023 Patient encounter procedure [facility] A [facility] Start: 08-26-2023 End: 08-26-2023 Well adult monitoring check done [facility] Start: 07-17-2023 End: 07-18-2023 ambulatory Matty Murillo Facility:[facility] Start: 07-17-2023 End: 07-17-2023 Patient encounter procedure Matty Murillo [facility] Start: 07-10-2023 End: 07-11-2023 ambulatory Matty Fieldsd Facility:[facility] Start: 07-09-2023 End: 07-10-2023 ambulatory Mhd Yaser Al-Marrawi Facility:[facility] Start: 07-09-2023 End: 07-09-2023 Patient encounter procedure Mhd Yaser Al-Marrawi [facility] Start: 07-08-2023 End: 07-09-2023 ambulatory Mhd Yaser Al-Marrawi Facility:[facility] Start: 06-26-2023 End: 06-27-2023 ambulatory [facility] A [facility] Facility:[facility] Start: 06-26-2023 End: 06-26-2023 Patient encounter procedure Matty Murillo [facility] Start: 06-19-2023 End: 06-19-2023 ambulatory Kalli Copsey Facility:[facility] Start: 06-11-2023 End: 06-12-2023 ambulatory KALLI COPSEY Facility:[facility] Start: 06-11-2023 End: 06-11-2023 Patient encounter procedure KALLI COPSEY [facility] Start: 06-03-2023 End: 06-04-2023 ambulatory Mt A MAMTA Facility:[facility] Start: 06-03-2023 End: 06-03-2023 Patient encounter procedure Mt A AMBERLY[facility] Start: 06-03-2023 End: 06-04-2023 ambulatory Mt A M[facility]TA Facility:[facility] Start: 06-03-2023 End: 06-03-2023 Patient encounter procedure [facility] Start: 04-23-2023 End: 04-24-2023 ambulatory Osvaldoblake Garza Facility:[facility] Start: 04-23-2023 End: 04-23-2023 Patient encounter procedure Bryce Franky Luisana [facility] Start: 04-10-2023 End: 04-11-2023 ambulatory Mhd Yaser Al-Marrawi Facility:[facility] Start: 04-10-2023 End: 04-10-2023 Patient encounter procedure Mhd Yaser Al-Marrawi [facility] Start: 04-09-2023 End: 04-10-2023 ambulatory Mhd Yaser Al-Marrawi Facility:[facility] Start: 04-09-2023 End: 04-09-2023 Patient encounter procedure Mitch Amaro [facility] Start: 04-05-2023 End: 04-06-2023 ambulatory Mhd Yaser Al-Marrawi Facility:[facility] Start: 04-05-2023 End: 04-05-2023 Patient encounter procedure Mhd Yaser Al-Marrawi [facility] Start: 03-29-2023 End: 03-30-2023 ambulatory Matty Mills Murillo Facility:[facility] Start: 03-29-2023 End: 03-29-2023 Patient encounter procedure Matty Jose AlejandroJase Murillo [facility] Start: 03-13-2023 End: 03-13-2023 Emergency department patient visit Jordan Dean Facility:[facility] Start: 03-13-2023 End: 03-13-2023 Emergency department patient visit Jordan Dean [facility] Start: 03-11-2023 End: 03-12-2023 ambulatory Kate Eaton Facility:[facility] Start: 03-11-2023 End: 03-11-2023 Patient encounter procedure Mhd Nita Leon [facility] Start: 03-01-2023 End: 03-02-2023 ambulatory Kevin Chel LOBO Facility:[facility] Start: 02-20-2023 End: 03-22-2023 ambulatory [facility] A M[facility] Facility::[id number] Start: 02-18-2023 End: 02-19-2023 Evaluation and management of inpatient Anaid Angelito Facility:[facility] Start: 02-18-2023 End: 02-19-2023 ambulatory [facility] A [facility] Facility:[facility] Start: 02-18-2023 End: 02-19-2023 [facility] Start: 02-18-2023 End: 02-18-2023 Patient encounter procedure [facility] Start: 02-15-2023 End: 02-16-2023 ambulatory [facility] A MAMTA Facility:[facility] Start: 02-15-2023 End: 02-15-2023 Patient encounter procedure Mt A [facility] Start: 01-25-2023 End: 01-26-2023 ambulatory MT A MAMTA Facility:[facility] Start: 01-25-2023 End: 01-25-2023 ambulatory MT A AMBERLYLE Facility:[facility] Start: 01-23-2023 End: 01-24-2023 ambulatory [facility] Facility:[facility] Start: 12-17-2022 Telephone encounter Juma dupont MD Work Phone: Rheumatology Comment on above: Results Start: 12-10-2022 End: 12-11-2022 ambulatory Mt A MAMTA Facility:[facility] Start: 12-10-2022 End: 12-10-2022 Patient encounter procedure [facility] Start: 12-05-2022 End: 12-05-2022 ambulatory MT GOODEN Facility:[facility] Start: 12-05-2022 End: 12-05-2022 Subsequent hospital visit by physician [facility] Comment on above: Bilateral low [...] Rheumatology Comment on above: [facility] Start: 12-02-2022 End: 12-02-2022 Emergency department patient visit Arturo Arguetasaran Facility:[facility] Start: 12-02-2022 End: 12-02-2022 [facility] Start: 11-29-2022 End: 11-30-2022 ambulatory [facility] Facility:[facility] Start: 11-29-2022 End: 11-29-2022 Pain Management Pawan Laureano [facility] Start: 11-19-2022 End: 11-20-2022 ambulatory [facility] Facility:[facility] Start: 11-19-2022 End: 11-19-2022 Patient encounter procedure [facility] Start: 11-14-2022 End: 11-14-2022 ambulatory JUMA MONK Facility:[facility] Start: 11-14-2022 End: 11-14-2022 Office outpatient new 45 minutes Juma Monk MD Work Phone: Rheumatology Comment on above: Chronic right-sided low back pain with right-sided sciatica (Primary Dx) Start: 11-08-2022 End: 11-09-2022 ambulatory [facility] Facility:[facility] Start: 11-08-2022 End: 11-08-2022 Patient encounter procedure [facility] Start: 10-24-2022 End: 10-25-2022 ambulatory Pawan Zumbar Facility:[facility] Start: 10-24-2022 End: 10-24-2022 Pain Management Pawan Zumbar [facility] Start: 09-27-2022 End: 09-27-2022 Pain Management Pawan Zumbar [facility] Start: 09-18-2022 End: 09-18-2022 Patient encounter procedure [facility] Start: 09-14-2022 End: 09-14-2022 Patient encounter procedure Thao Duncan [facility] Start: 09-10-2022 End: 09-10-2022 Patient encounter procedure Pawan Zumbar [facility] Start: 08-28-2022 End: 08-28-2022 Patient encounter procedure [facility] Start: 08-28-2022 End: 08-28-2022 Well adult monitoring check done [facility] Start: 08-23-2022 End: 08-23-2022 Pain Management Pawan Laureano [facility] Start: 08-23-2022 End: 08-23-2022 Patient encounter procedure [facility] Start: 08-01-2022 End: 08-01-2022 Patient encounter procedure Thao Duncan [facility] Start: 06-22-2022 End: 06-22-2022 Patient encounter procedure Thoa Duncan [facility] Start: 06-08-2022 End: 06-08-2022 ambulatory KATRINA URENA Facility:[facility] Start: 06-08-2022 End: 06-08-2022 Subsequent hospital visit by physician Katrina Urena MD Work Phone: Gastroenterology Comment on above: 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] Start: 04-26-2022 Telephone encounter Marguerite Potts RNweb page developer Comment on above: Appointment Confirma tion Start: 04-09-2022 End: 04-10-2022 ambulatory KATRINA URENA Facility:[facility] Start: 04-09-2022 End: 04-10-2022 ambulatory KATRINA URENA Facility:[facility] Start: 04-09-2022 End: 04-09-2022 Patient encounter procedure Katrina Urena MD Work Phone: Gastroenterology Comment on above: Mccarty's esophagus with dysplasia (Primary Dx) Start: 02-22-2022 End: 02-22-2022 Patient encounter procedure Gonzales ROBBINS [facility] [place] Start: 02-20-2022 End: 02-20-2022 Patient encounter procedure [facility] Start: 12-14-2021 End: 12-14-2021 Patient encounter procedure [facility] Start: 03-18-2021 End: 12-06-2021 Recurring [facility] Procedures Date Procedure Procedure Detail [...] cleared fda spec home use Sky Howe APRN.FELT CUTTER Work Phone: Start: 06-08-2022 Esophagogastroduodenoscopy transoral diagnostic Katrina Urena MD Work Phone: Start: 06-08-2022 Gluc bld gluc mntr dev cleared fda spec home use Sky Howe APRN.FELT CUTTER Work Phone: Start: 03-15-2022 Esophagogastroduodenoscopy gastric outlet reduction Thao Duncan Start: 08-12-2018 Esophagogastroduodenoscopy Gonzales ROBBINS Start: 12-27-2016 Myringotomy and insertion of tympanic ventilation tube [facility] Start: 01-19-2015 right knee arthroscopy with partial medial and lateral meniscectomy, chondroplasty medial compartment [facility] Colonoscopy Gonzales ORBBINS rotator cuff left shoulder 1 [facility] Comment on above: 2001 rotator cuff left shoulder 2 Pawan Laureano Comment on above: 2001 Skin (tissue) specimen (specimen) Thao Urbaonverojhony Sphincterotomy anal division sphincter spx [facility] Plan of Treatment Date Care Activity Detail Author Start: 04-09-2025 DIABETES SCREEN DIABETES SCREEN [facility] Start: 08-31-2024 ambulatory Facility[facility] Start: 12-10-2023 ambulatory Facility[facility] Start: 04-12-2023 Influenza vaccination INFLUENZA (#1) [facility] Start: 12-17-2022 End: 02-16-2023 C reactive protein [Mass/volume] in Serum or Plasma C-REACTIVE PROTEIN (CRP) Lab Routine Sacrococcygeal disorders, not elsewhere classified Expected: 12/17/2022, Expires: 02/16/2023 [facility] Work Phone: Comment on above: Expected: 12/17/2022 , Expires: 02/16/2023 Start: 12-17-2022 End: 02-16-2023 Erythrocyte sedimentation rate SED RATE WESTERGREN Lab Routine Sacrococcygeal disorders, not elsewhere classified Expected: 12/17/2022, Expires: 02/16/2023 [facility] Work Phone: Comment on above: Expected: 12/17/2022 , Expires: 02/16/2023 Start: 09-13-2022 COVID-19 VACCINE (5 - Moderna series) COVID-19 VACCINE (5 - Moderna series) [facility] Start: 08-12-2022 ADVANCE DIRECTIVE DISCUSSION ADVANCE DIRECTIVE DISCUSSION [facility] Start: 08-12-2022 DEPRESSION ASSESSMENT DEPRESSION ASS ESSMENT [facility] Start: 04-12-2022 Influenza vaccination INFLUENZA (#1) [facility] Start: 04-09-2022 End: 06-09-2022 Comprehensive metabolic 2000 panel - Serum or Plasma [facility] Work Phone: Comment on above: Expected: 04/09/2022 , Expires: 06/09/2022 Start: 10-12-2021 COVID-19 VACCINE (4 - Booster for Moderna series) COVID-19 VACCINE (4 - Booster for Moderna series) [facility] Start: 08-12-2021 ADVANCE DIRECTIVE DISCUSSION ADVANCE DIRECTIVE DISCUSSION [facility] Start: 08-12-2021 DEPRESSION ASSESSMENT DEPRESSION ASS ESSMENT [facility] Start: 01-27-2013 PNEUMOCOCCAL: 65+ (1 - PCV) PNEUMOCOCCAL: 65+ (1 - PCV) [facility] Start: 01-27-1998 SHINGRIX VACCINE (1 of 2) SHINGRIX VACCINE (1 of 2) [facility] Start: 01-27-1993 COLOGUARD (FIT-DNA) COLOGUARD (FIT-D NA) [facility] Start: 01-27-1993 Colonoscopy COLONOSCOPY [facility] Start: 01-27-1993 COLORECTAL CANCER SCREENING COLORECTAL CANCER SCREENING [facility] Start: 01-27-[address] [facility] Start: 01-27-1993 DIABETES SCREEN DIABETES SCREEN [facility] Start: 01-27-1993 FECAL OCCULT BLOOD FECAL OCCULT BLOO D [facility] Start: 01-27-1993 SIGMOIDOSCOPY SIGMOIDOSCOPY [facility] Start: 01-27-1983 LIPID SCREEN LIPID SCREEN [facility] Start: 01-27-1967 Urine microalbumin profile DTAP,TDAP,TD (1 - Tdap) [facility] Start: 01-27-1966 ANNUAL PCP TEAM SUBSTATION OPERATOR CONVERSION CRISTO DISEASE VISIT ANNUAL PCP TEAM CHRONIC DISEASE VISIT [facility] Start: 01-27-1966 Hepatitis B surface antibody level LDL CHOLESTEROL [facility] Start: 01-27-1966 HEPATITIS C SCREENING HEPATITIS C SC SHEILA [facility] Start: 1960 Adult depression screening assessment DEPRESSION SCREENING [facility] Start: 01-27-1958 3 comp foot exam completed DIABETIC FOOT EXAM [facility] Start: 01-27-1958 Hepatitis B screening URINE AL BUMIN:CREATININE RATIO [facility] Start: 01-27-1958 Hepatitis C antibody , confirmatory test DILATED RETINAL EXAM [facility] Start: 01-27-1954 PNEUMOCOCCAL: 65+ (1 - PCV) PNEUMOCOCCAL: 65+ (1 - PCV) [facility] Start: 01-27-1953 Hemoglobin A1c/Hemoglobin.total in Blood HBA1C [facility] End: 08-29-2023 EGD DIAGNOSTIC EGD DIAGNOSTIC Endoscopy Routine Mccarty's esophagus with dysplasia 1 Occurrences starting 04/09/2022 until 04/09/2023 [facility] Work Phone: Comment on above: 1 Occurrences starti ng 04/09/2022 until 04/09/2023 End: 01-16-2024 Mri pelvis w/o contrast material MRI SACRUM/COCCYX WO IVCON Radiology Routine Sacrococcygeal disorders, not elsewhere classified 1 Occurrences starting 12/17/2022 until 01/16/2024 [facility] Work Phone: Comment on above: 1 Occurrences starti ng 12/17/2022 until 01/16/2024 End: 01-05-2024 Radiologic examination sacroiliac jnts <3 views XR SACROILIAC JOINTS 2V AP PELVIS/FERGUESON Radiology Routine Bilateral low back pain with sciatica, sciatica laterality unspecified, unspecified chronicity 1 Occurrences starting 12/05/2022 until 01/05/2024 [facility] Work Phone: Comment on above: 1 Occurrences starti ng 12/05/2022 until 01/05/2024 Radiologic examinati on sacroiliac jnts <3 views XR SACROILIAC JOINTS 2V AP PELVIS/FERGUESON Radiology Routine Bilateral low back pain with sciatica, sciatica laterality unspecified, unspecified chronicity 12/05/2022 1:53 PM EDT [facility] Work Phone: SURGICAL PATHOLOGY [facility] Work Phone: Comment on above: Release Upon Josuein g for 1 Occurrences starting 06/08/2022, 1 completed [facility] Immunizations Immunization Date Immunization Notes Care Provider Hyun rico 06-29-2023 canakinumab franky Leon [facility] Comment on above: Result Comment: RSV Vaccine given per [facility] 05-16-2023 influenza virus vacc ine, unspecified formulation [facility] 05-16-2023 SARS-CoV-2 (COVID-19 ) mRNA-1273 vaccine [facility] Comment on above: Result Comment: give n per [facility] 05-13-2022 influenza virus vacc ine, unspecified formulation Thao Duncan [facility] 05-13-2022 SARS-CoV-2 (COVID-19 ) mRNA-1273 [facility] 06-14-2021 COVID-19, mRNA, LNP- S, PF, 100 mcg or 50 mcg dose; Translations: [SARS-CoV-2 (COVID-19) mRNA-1273 vaccine] [facility] 05-19-2021 influenza virus vacc ine, unspecified formulation [facility] 01-09-2021 tetanus toxoid, redu hermilo diphtheria toxoid, and acellular pertussis vaccine, adsorbed; Translations: [Adacel (Tdap)] [facility] 10-19-2020 COVID-19, mRNA, LNP- S, PF, 100 mcg or 50 mcg dose; Translations: [Moderna COVID-19 Vaccine] [facility] Comment on above: Reason for Medicatio n: Other (see comment) 09-21-2020 COVID-19, mRNA, LNP- S, PF, 100 mcg or 50 mcg dose; Translations: [Moderna COVID-19 Vaccine] [facility] Comment on above: Reason for Medicatio n: Other (see comment) 05-17-2020 influenza virus vacc ine, unspecified formulation [facility] 06-11-2019 influenza virus vacc ine, live, attenuated, for intranasal use [facility] Comment on above: Result Comment: done at [facility] in [place] 06-01-2019 influenza virus vacc ine, unspecified formulation [facility] 05-29-2019 influenza virus vacc ine, unspecified formulation [facility] 07-22-2018 pneumococcal polysaccharide vaccine, 23 valent [facility] 07-22-2017 pneumococcal conjuga te vaccine, 13 valent [facility] 05-15-2016 influenza virus vacc ine, unspecified formulation [facility] 06-23-2014 tetanus toxoid, redu hermilo diphtheria toxoid, and acellular pertussis vaccine, adsorbed [facility] Payers Date Payer Category Payer Self-pay 2015 Medicare [id number] 2015 Private Health Insurance AET[employer] A ETNA MEDICARE SUPPLEMENT [id number] 2015-Present [phone] [address] [address] [place] [address] Indemnity [id number] 2013 Medicare MEDICARE MEDICAR E A AND B [id number] 2013-Present [phone] [address] [address] [place] [address] Medicare [id number] 2013 Medicare [id number] 1948 Unknown [id number] 2.16.840.1.171335.3.579 .2.727 1948 Unknown [id number] 2.16.840.1.699591.3.579 .2.727 1948 Unknown [id number] 2.16.840.1.541408.3.579 .2.72 1948 Unknown [id number] 2.16.840.1.545067.3.579 .2. 1948 Unknown [id number] 2.16.840.1.166204.3.579 .2. 1948 Unknown [id number] 2.16.840.1.466943.3.579 .2. 1948 Unknown [id number] 2.16.840.1.035593.3.579 .2 1948 Unknown [id number] 2.16.840.1.523341.3.579 .2. 1948 Unknown [id number] 2.16.840.1.135977.3.579 .2 1948 Unknown [id number] 2.16.840.1.025213.3.579 .2. 1948 Unknown [id number] 2.16.840.1.770488.3.579 .2. 1948 Unknown [id number] 2.16.840.1.767788.3.579 .2. 1948 Unknown [id number] 2.16.840.1.112955.3.579 .2 1948 Unknown [id number] 2.16.840.1.794513.3.579 .2. 1948 Unknown [id number] 2.16.840.1.985286.3.579 .2. 1948 Unknown [id number] 2.16.840.1.550373.3.579 .2. 1948 Unknown [id number] 2.16.840.1.721713.3.579 .2 1948 Unknown [id number] 2.16.840.1.397677.3.579 .2. 1948 Unknown [id number] 2.16.840.1.722328.3.579 .2. 1948 Unknown [id number] 2.16.840.1.584090.3.579 .2. 1948 Unknown [id number] 2.16.840.1.431527.3.579 .2. 1948 Unknown [id number] 2.16.840.1.950678.3.579 .2. 1948 Unknown [id number] 2.16.840.1.118023.3.579 .2 1948 Unknown [id number] 2.16.840.1.083978.3.579 .2 1948 Unknown [id number] 2.16.840.1.625812.3.579 .2 1948 Unknown [id number] 2.16.840.1.191739.3.579 .2 1948 Unknown [id number] 2.16.840.1.046583.3.579 .2 1948 Unknown [id number] 2.16.840.1.624903.3.579 .2 1948 Unknown [id number] 2.16.840.1.453203.3.579 .2 1948 Unknown [id number] 2.16.840.1.323200.3.579 .2 1948 Unknown [id number] 2.16.840.1.785695.3.579 .2 1948 Unknown [id number] 2.16.840.1.213799.3.579 .2 1948 Unknown [id number] 2.16.840.1.877641.3.579 .2.727 1948 Unknown [id number] 2.16.840.1.172205.3.579 .2.727 1948 Unknown [id number] 2.16.840.1.808448.3.579 .2.727 Unknown [id number] 2.16.840.1.283066.3.579 .2.531 Social History Date Type Detail Facility Start: 09-18-2021 End: 09-24-2023 Tobacco smoking status Never smoked tobacco (finding) [facility] Comment on above: denies denies use Tobacco smoking status Never [facility] Comment on above: denies denies use Start: 09-09-2022 End: 12-05-2022 Sex Assigned At Male [facility] Tobacco smoking status NHIS Tobacco smoking consumption unknown [facility] Start: 1950 Sex Assigned At Not on file C [facility] Start: 03-30-2022 End: 04-10-2022 Exposure to SARS-CoV-2 (event) Not sure [facility] Work Phone: Start: 06-08-2022 Tobacco use and exposure Smokeless tobacco non-user [facility] Start: 06-08-2022 End: 12-05-2022 Alcohol intake Current drinker of alcohol (finding) [facility] Start: 06-08-2022 Alcohol Comment occasional [facility] Tobacco [facility] Comment on above: Denies Tobacco smoking status No Smoking Status Entered [facility] Start: 09-09-2022 End: 12-05-2022 History of Social function [facility] Functional Status Date Assessment Result Facility 09-24-2023 Functional Status N/A [facility] 09-20-2023 Functional Status N/A [facility] 08-26-2023 Functional Status N/A [facility] 07-17-2023 Functional Status No [facility] 06-26-2023 Functional Status No [facility] 06-03-2023 Functional Status N/A [facility] 03-13-2023 Functional Status N/A [facility] 02-18-2023 Functional Status No [facility] 02-18-2023 Functional Status N/A [facility] 12-10-2022 Functional Status N/A [facility] 12-02-2022 Functional Status N/A [facility] 11-29-2022 Functional Status N/A [facility] 11-08-2022 Functional Status N/A [facility] 09-27-2022 Functional Status N/A [facility] 09-14-2022 Functional Status N/A [facility] 08-28-2022 Functional Status N/A [facility] 08-23-2022 Functional Status N/A [facility] 08-23-2022 Functional Status N/A [facility] 08-01-2022 Functional Status N/A [facility] 06-22-2022 Functional Status N/A [facility] 02-22-2022 Functional Status N/A [facility] [place] 02-20-2022 Functional Status N/A [facility] Clinical Notes 02-20-2022 to 09-24-2023 LaboratoryRadiology Note Date & Type Note Facility 09-24-2023 Hospital Discharg e instructions Patient Education 09/24/2023 10:59:29 Head Injury, Adult, Hdws-vm-Bbjg Head Injury, Adult There are many types [...] or school. Ask your doctor for a proh-gw-ovkh plan for slowly going back to your [...] your friends, family, a trusted co-worker, and metal control worker about your injury, symptoms, and limits (restrictions). Have them watch for any problems that are new or getting worse. General instructions Take ktbh-jju-kddrcqh and prescription medicines only as told by [...] provider. Document Revised: 06/10/2020 Document Reviewed: 06/10/2020 [employer] Patient Education 2022 [employer]. 09/24/2023 10:59:27 Contusion, Tyxh-nb-Fils Contusion A contusion is a deep bruise. [...] sitting or lying down. General instructions Take osby-wku-zscgphb and prescription medicines only as told by [...] also called RICE. You may be given yrbt-zlu-uweebpm medicines for pain. Contact a doctor if [...] provider. Document Revised: 05/24/2022 Document Reviewed: 05/24/2022 [employer] Patient Education 2022 [employer] Follow Up Care 09/23/2023 08:07:39 With:MAMTA LEE FAAFP, [place], BEATRIZ, PED Address: [address] [place] [address] [place] [address]- When:Within 3 Month(s) [facility] 09-20-2023 Hospital Discharg e instructions [...] Ask your health care provider for a ubpm-mi-akqh plan for gradually returning to activities. Ask [...] your friends, family, a trusted colleague, and metal control worker about your injury, symptoms, and restrictions. Have them watch for any new or worsening problems. General instructions Take lrxn-aca-zjqfzvx and prescription medicines only as told by [...] Document Reviewed: 06/10/2020 [employer] Patient Education 2022 [employer]. Follow Up Care 09/20/2023 13:50:31 With:Mt GOODEN Address: [facility] [place], [facility] [place] [address]- Business (1) When:09/23/2023 15:40:09 [facility] 09-12-2023 Evaluation + Plan note Future Appointments Appointment Date:09/25/2023 02:00:00 PM Scheduled Provider: Location:.XRAY Appointment Type:XR Pelvis/Hip (FT) Appointment Date:09/25/2023 02:15:00 PM Scheduled Provider: Location:.XRAY Appointment Type:XR Clavicle/Shoulder/AC Joints (FT) Appointment Date:12/10/2023 09:40:00 AM Scheduled Provider:M[facility] GOODEN DO, FAAFP Location:[facility] Appointment Type:FM Open Appointment Date:01/07/2024 10:00:00 AM Scheduled Provider:Azra Leon MD Location:.ONCOLOGY Appointment Type:ONC Office Visit 30 (FT) Appointment Date:08/31/2024 09:30:00 AM Scheduled Provider: Location:[facility] Appointment Type:FM Medicare Wellness Subsequent Future Scheduled TestsU Protein/Creat Ratio 09/05/43KsoF9a 11/21/2233HoeY0j 09/05/50PzcQ5d 11/21/22Microalbumin Level Urine 09/05/23PSA Screen, Total 09/05/23CBC w/ Auto Diff 01/07/24Comprehensive Metabolic Panel 01/07/24D-Dimer 01/07/24XR Hip 2-3 Views Right 09/25/23XR Shoulder Complete Left 09/25/23 [facility] 08-26-2023 Hospital Discharg e instructions [...] use night-lights. Place frequently used items in vsoq-zr-pblcf places. Lower the shelves around your home [...] of the way. Do not use floor angolan or wax that makes floors slippery. If [...] include working with a physical therapist or it trainer to improve your strength, balance, and endurance. Where to find more information Centers for Disease Control and Prevention, [place]: www.cdc.gov National Kinsey on Aging: www.vamsi.nih.gov Contact a health care [...] provider. Document Revised: 04/30/2022 Document Reviewed: 03/01/2021 [employer] Patient Education 2022 [employer]. 08/26/2023 10:25:59 Hypertension, Adult Hypertension, Adult High [...] follow-up visits. This is important. Medicines Take mocx-bhc-muascob and prescription medicines only as told by [...] provider. Document Revised: 06/05/2022 Document Reviewed: 06/05/2022 [employer] Patient Education 2022 [employer]. 08/26/2023 10:25:58 Diabetes Mellitus and Exercise Diabetes [...] plan? Your health care provider or certified surgical assistant can help you make a plan for [...] (heat stroke). Where to find more information [place] Diabetes Association: www.diabetes.org Summary Exercising regularly is important for overall health, especially for people who have diabetes mellitus. Exercising has many health benefits. It increases muscle strength and bone density and reduces body fat and stress. It also lowers and controls blood glucose. Your health care provider or certified surgical assistant can help you make an activity plan [...] provider. Document Revised: 04/25/2020 Document Reviewed: 04/25/2020 [employer] Patient Education 2022 [employer]. 08/26/2023 10:25:57 DASH Eating Plan DASH Eating [...] Dairy Whole or 2% milk, cream, and dapg-qch-qgta. Whole or full-fat cream cheese. Whole-fat or [...] more information National Heart, Lung, and Blood Kinsey: www.nhlbi.nih.gov [place] Heart Association: www.heart.org Academy of Nutrition and [...] provider. Document Revised: 07/01/2020 Document Reviewed: 07/01/2020 [employer] Patient Education 2022 [employer]. 08/26/2023 10:25:56 BMI for Adults BMI for [...] numbers. This can be done either in Cuban (U.S.) or metric measurements. Note that charts and online BMI calculators are available to help you find your BMI quickly and easily without having to do these calculations yourself. To calculate your BMI in Cuban (U.S.) measurements: 1.Measure your weight in pounds [...] Centers for Disease Control and Prevention: www.cdc.gov [place] Heart Association: www.heart.org National Heart, Lung, and Blood Kinsey: www.nhlbi.nih.gov Summary Body mass index (BMI) is a number that is calculated from a person's weight and height. BMI may help estimate how much of a person's weight is composed of fat. BMI can help identify those who may be at higher risk for certain medical problems. BMI can be measured using Cuban measurements or metric measurements. BMI charts are used to identify whether you are underweight, normal weight, overweight, or obese. This information is not intended to replace advice given to you by your health care provider. Make sure you discuss any questions you have with your health care provider. Document Revised: 04/20/2020 Document Reviewed: 02/26/2020 [employer] Patient Education 2022 [employer]. [facility] 06-03-2023 Hospital Discharg e instructions [...] drinks. ?Tomatoes and foods made with tomatoes. ?[place] or spicy foods. ?Chocolate and peppermint. Do not drink alcohol. General instructions Take qbwy-qiy-hkmoqmd and prescription medicines only as told by [...] provider. Document Revised: 10/15/2020 Document Reviewed: 10/15/2020 [employer] Patient Education 2022 [employer]. 06/03/2023 14:30:19 Edema, Yceg-kj-Gwtt Edema Edema is when you have too [...] Follow these instructions at home: Medicines Take ehvi-ytc-mnmieqd and prescription medicines only as told by [...] provider. Document Revised: 04/02/2022 Document Reviewed: 04/02/2022 [employer] Patient Education 2022 [employer]. 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 THis can be done and monitored by his PCP Dr Soriano as per patient wishes.RTC with us only as needed. [facility] 03-13-2023 Evaluation + Plan note Extrac jaun from: Title:ED Note Author:Jordan Dean DO Date :03/13/23 Cellulitis (L03.90: Cellulit is, unspecified) Orders: cephalexin, 500 mg = 1 cap(s), Cap, Oral, Once, Stop date 03/13/23 4:15:00 EDT, STAT, Start date 03/13/23 4:15:00 EDT, 03/13/23 4:15:00 EDT cephalexin, 500 mg = 1 cap(s), Oral, q6hr, X 7 day(s), # 28 cap(s), Refills(s) 0, Pharmacy: [facility]/pharmacy #[id number], 185.4, cm, 03/13/23 2:24:00 EDT, Height/Length [...] 09:45:00 AM Scheduled Provider: Location:.Sleep Clinic Appointment Type:SENIOR SECURITY ENGINEER Sleep Study Clinic Follow Up (FT) Appointment Date:04/09/2023 10:00:00 AM Scheduled Provider: [facility] Type:ONC Office Visit 30 (FT) Appointment Date:06/03/2023 01:20:00 PM Scheduled Provider:Mt GOODEN DO, FAAFP Location:[facility] Appointment Type: Open Appointment Date:08/26/2023 11:00:00 AM Scheduled Provider: Location:[facility] Appointment Type: Medicare Wellness Subsequent Diagnostic [...] Function Panel 09/10/22 * Lipid Panel 09/10/22 [facility]08-02-2023 Hospital Discharge instructions Patient Education [...] Follow these instructions at home: Medicines Take gncj-enr-ufgsavb and prescription medicines only as told by [...] such as antibiotic medicines or antihistamines. Take itqk-nna-udcwwii and prescription medicines only as told by [...] Document Reviewed: 05/10/2022 Elsevier Patient Education 2022 LawPal. Follow Up Care 03/13/2023 02:16:08 With:Mt GOODEN Address: [address] [place] [address]- Business (1) When:Within 3 Day(s) [facility]07-31-2023 Hospital Discharge instructions Follow Up Care 03/11/2023 11:30:23 With:Azra Leon Address: [address] [place] [phone] Business (1) When: Unknown Comments:Continue Eliguis 5 mg twice daily fdc.Antithrombin III and D dimer today.D dimer and CBCD, CMP in 3 months.RTC in 3 months. [facility]07-19-2023 Hospital Discharge instructions Follow Up Care 02/27/2023 09:23:46 With:Azra Leon Address: [place] [address] [place] [phone] Business (1) When: Unknown Comments:Thrombophilia panel labs today.Continue Eliquis 5 mg twice daily long- term as long as there is no major bleeding events.Return in 1 month with CBC differential and CMP. [facility]07-18-2023 Hospital Discharge instructions Follow Up Care 02/26/2023 10:50:00 With:Chidi ESPINAL, Matty [place] PUL, JERILYN Address: [address] [facility] [place] [address]- When: Unknown Comments:after his testing is completed [facility]07-11-2023 Hospital Discharge instructions Patient Education [...] Follow these instructions at home: Medicines Take vdpo-gqn-alobgjh and prescription medicines only as told by [...] is important. Where to find more information [place] [employer] Association: www.lung.org Centers for Disease Control [...] right away. Call your local emergency services (111 in the U.S.). Do not drive yourself [...] or DVT, call your local emergency services (821 in the [place].S[place] This information is not intended to replace advice given to you by your health care provider. Make sure you discuss any questions you have with your health care provider. Document Revised: 06/30/2021 Document Reviewed: 06/30/2021 [employer] Patient Education 2022 LawPal. Follow Up Care 02/18/2023 08:49:44 With:[facility] Address:Unknown When: Unknown Comments:[facility] will contact you to set up a home visit. Thank you. With:Ralph Jennings Address: [address] [address] [facility] (1) When: Unknown Comments:Chronic Venous InsufPlease call Kike at Dr. Jennings's office in [place] to make a follow up appointment. The phone number is [phone]. Thank you. With:Matty Murillo Address: [address] [facility] [place] [address]- Business (1) When: Unknown Comments:needs PFTs and sleep studyThe central scheduling department at [facility] will need to schedule the PFT's. Please contact Dr. Murillo's offic eto set up a time for your sleep study. Thank you. With:Mitch Amaro Address: [facility] [address] [place] [address]- When: Unknown Comments:2nd DVTDr. Amaro office will contact you to set up an appointment. If you do not hear from themin 3 days, then call [phone] and asked for Oncology/ Hematology department. Thank you. With:Mt GOODEN Address: [address] [place] [address]- Business (1) When:03/01/2023 13:00:00 Comments:Your follow up appointment is with Dr. Lobo. Thank you. [facility]07-11-2023 NoteBarnesville HospitalComment on above:Result Comment: Electronically Signed By: Kate Eaton MD\.br\Date and Time Signed: 02/19/23 13:17 UPS32-11-2030 Evaluation + Plan noteExtracted from: Title:Discharge Note [...] (at bedtime), 3 refills Flonase 0.05 mg/inh [place], 2 spray(s), Nasal, Daily, 11 refills, Not [...] With When Contact Information Ralph Jennings [address] [place] [address]- Business (1) Additional Instructions: Chronic Venous Insuf Basem Murillo [address] [facility] [place] [address]- Business (1) Additional Instructions: needs PFTs and sleep study Mitch Coleterry [facility] [address] [place] [address]- Additional Instructions: 2nd DVT Mt GOODEN In [address] [place] [address]- Business (1) Additional Instructions: Addendum by Angelito ESPINAL, Porfirio andrea on February 19, 2023 13:16:49 EDT Acute [...] Eaton MD Date:02/18/23 73-year-old male with a [facility] deidra history significant for morbid obesity, AAA, [...] Date:03/01/2023 01:00:00 PM Scheduled Provider:Kevin LOBO MD Location:[facility] [place] [facility] Appointment Type: Hospital Follow Up w/TCM Appointment Date:08/26/2023 11:00:00 AM Scheduled Provider: Location:[facility] [place] [facility] Appointment Type:FM Medicare Wellness Subsequent Future [...] Lipid Panel 02/20/22 * Lipid Panel 09/10/22 [facility]07-10-2023 NoteFishJohns Hopkins HospitalComment on above:Result Comment: Electronically Signed By: Angelito ESPINAL, Kate\.br\Date and Time Signed: 02/18/23 13:49 [id number] Hospital Discharge instructions Patient Education 02/18/2023 08:47:22 [...] provider. Document Revised: 03/13/2021 Document Reviewed: 03/13/2021 [employer] Patient Education 2022 LawPal. 02/18/2023 08:47:20 Heart Failure Exacerbation Heart Failure [...] Follow these instructions at home: Medicines Take vszh-zfj-dufvzir and prescription medicines only as told by your health care provider. Do not stop taking your medicines or change the amount you take. If you are having problems or sideeffects from your medicines, talk to your health care provider. If you are having difficulty paying for your medicines, contact a social services manager or your clinic. There are many programs [...] provider. Document Revised: 02/18/2021 Document Reviewed: 02/18/2021 [employer] Patient Education 2022 LawPal. Follow Up Care 08/23/2022 08:23:28 With:MAMTA LEE FAAFP, BEATRIZ Rebolledo, PED Address: [facility] [place] [address]- When:Within 1 Month(s) [facility] 06-16-2023 NoteHNO ID: [id number] Author: RT Katty(R) Service: ? Author Type: [...] BY: RT Katty(R) January 25, 2023 8:35 [facility]05-08-2023 Miscellaneous Notes* Telephone Encounter - Juma Monk [...] the test results. documented in this [facility]Mer[facility] Hospital Discharge instructions Patient Education 12/10/2022 10:35:03 Edema, Cmvp-lq-Izye Edema Edema is when you have too [...] Follow these instructions at home: Medicines Take qpgt-zgr-yneyhms and prescription medicines only as told by [...] provider. Document Revised: 04/02/2022 Document Reviewed: 04/02/2022 [employer] Patient Education 2022 LawPal. Follow Up Care 11/26/2022 09:27:23 With:MAMTA LEE FAAFP, [place], BEATRIZ, PED Address: [address] [place] [address] When:Within 2 Month(s) [facility] 04-26-2023 NoteHNO ID: [id number] Author: RT Indu(R) Service: ? Author Type: [...] PERIPHERAL IV DATA: Not applicable SIGNED BY: LynseyRT Nikolay(R) December 05, 2022 1:51 [facility]04-26-2023 NoteHNO ID: [id number] Author: Juma Monk MD Service: ? Author Type: Physician Type: Progress Notes Filed: 12/05/2022 1:29 PM Note Text: Rheumatology Outpatient Clinic Date of Service: 12/05/2022 Patient: Jas Gonzalez Medical Record: [id number] Primary Care Physician: No primary care provider [...] 81 mg chewable tablet (more content not included)...[facility]04-26-2023 History of Present illness Narrative* Juma Monk MD - 12/05/2022 1:00 PM EDT Images from the original note were not included. Rheumatology Outpatient Clinic Date of Service: 12/05/2022 Patient: Jas Gonzalez Medical Record: [id number] Primary Care Physician: No primary care provider [...] Full ROM in flexion and extension. 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 No swelling or synovitis along the [...] which included preparing to see the patient, tagk-eu-vhgj patient care, completing clinical documentation, obtaining and/or reviewing separately obtained history, performing a medically appropriate examination, and counseling and educating the patient/family/caregiver. Juma Monk MD, [facility] Rheumatology documented in this encounterMercy Health [facility]04-25-2023 Miscellaneous Notes* Telephone Encounter - Angie Lara MA - 12/04/2022 12:44 PM EDT Received outside records for patient. Placed in scanned documents. Angie Lara MA documented in this encounterMercy [facility]04-23-2023 Hospital Discharge instructions Patient Education 12/02/2022 [...] Follow these instructions at home: Medicines Take zdmn-uqa-gsfmsqy and prescription medicines only as told by [...] such as antibiotic medicines or antihistamines. Take grrc-rlj-ursbzhc and prescription medicines only as told by [...] provider. Document Revised: 05/10/2022 Document Reviewed: 05/10/2022 [employer] Patient Education 2022 [employer] 12/02/2022 15:14:40 Gastrointestinal Bleeding Gastrointestinal Bleeding [...] home. Follow these instructions at home: Take vzky-zyk-zhqfcev and prescription medicines only as told by [...] on the cause of the bleeding. Take usbq-ytu-gxranzo and prescription medicines only as told by [...] provider. Document Revised: 03/02/2022 Document Reviewed: 03/02/2022 [employer] Patient Education 2022 LawPal. Follow Up Care 12/02/2022 12:04:07 With:Joycelyn CHERRY Address: [address] [place] [phone] Business (1) When:12/05/2022 15:14:25 Comments:Follow-up for 2 episodes of bright red blood per rectum With:Mt GOODEN Address: [address], [place] [address]- Business (1) When:12/05/2022 15:14:09 Comments:Follow-up for evaluation [...] ifyou develop any new or worsening symptoms. [facility]04-23-2023 Evaluation + Plan noteExtracted from: Title:ED Note Author:Tabby LOPEZ, Severo Merchant Axel e:12/02/22 Blood per rectum (K62.5: Hem orrhage of anus and rectum) Cellulitis (L03.90: Cellulitis, unspecified) Wound of buttock (S31.809A: Unspecified open wound of unspecified buttock, initial encounter) Orders: cephalexin, 500 mg = 1 cap(s), Oral, q8hr, # 30 cap(s), Refills(s) 0, Pharmacy: [facility]/pharmacy #[id number], 182, cm, 12/02/22 12:12:00 EDT, Height/Length Dosing, 150, kg, 12/02/22 12:12:00 EDT, Weight Dosing ABO/Rh ABO/Rh History Check Antibody Screen Automated Diff Basic Metabolic Panel Blood Bank ID# CBC w/ Auto Diff ECG 12 Lead Adult eGFR Hepatic Function Panel PT & PTT Stool Occult Blood Future Appointments Appointment Date:12/10/2022 10:00:00 AM Scheduled Provider:Mt GOODEN DO, FAAFP Location:[facility] Appointment Type: Open Appointment Date:02/18/2023 08:00:00 AM Scheduled Provider:Mt GOODEN DO, FAAFP Location:[facility] Appointment Type: Open Appointment Date:08/26/2023 11:00:00 AM Scheduled Provider: Location:[facility] Appointment Type:FM Medicare Wellness Subsequent Future [...] Lipid Panel 02/20/22 * Lipid Panel 09/10/22 [facility]04-20-2023 Evaluation + Plan noteExtracted from: [...] 10:00:00 AM Scheduled Provider:Mt GOODEN DO, FAAFP Location:[facility] Appointment Type: Open Appointment Date:02/18/2023 08:00:00 AM Scheduled Provider:Mt GOODEN DO, FAAFP Location:[facility] [place] [facility] Appointment Type: Open Appointment Date:08/26/2023 11:00:00 AM Scheduled Provider: Location:[facility] Appointment Type:FM Medicare Wellness Subsequent Future [...] Lipid Panel 02/20/22 * Lipid Panel 09/10/22 [facility]04-05-2023 NoteHNO ID: [id number] Author: Juma Monk MD Service: ? Author Type: Physician Type: Progress Notes Filed: 11/16/2022 9:45 AM Note Text: Rheumatology Outpatient Clinic Date of Service: 11/14/2022 Patient: Jas Gonzalez Medical Record: [id number] Primary Care Physician: No primary care provider [...] 54 U/L 33 ALKAL (more content not included)...[facility]04-05-2023 History of Present illness Narrative* Juma Monk MD - 11/14/2022 1:30 PM EDT Images from the original note were not included. Rheumatology Outpatient Clinic Date of Service: 11/14/2022 Patient: Jas Gonzalez Medical Record: [id number] Primary Care Physician: No primary care provider [...] Full ROM in flexion and extension. 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 No swelling or synovitis along the [...] which included preparing to see the patient, omoo-is-kkxc patient care, completing clinical documentation, obtaining and/or reviewing separately obtained history, performing a medically appropriate examination, and counseling and educating the patient/family/caregiver. Juma Monk MD, [facility] Rheumatology documented in this encounterMercy [facility]03-30-2023 Hospital Discharge instructions Patient Education 11/08/2022 [...] plan? Your health care provider or certified surgical assistant can help you make a plan for [...] stress. Your health care provider or certified surgical assistant can help you make a plan for [...] 10/18/2004 Document Revised: 02/20/2018 Document Reviewed: 01/07/2017 [employer] Patient Education 2020 LawPal. Follow Up Care 10/19/2022 13:04:21 With:Mt GOODEN DO, FAAFP, FAM, PED Address: [address] [place] [address]- When:Within 3 Month(s) [facility] 03-15-2023 Note [id number]:127[facility] Hospital Discharge instructions Follow Up Care 09/10/2022 07:55:41 With:Thao Duncan DO, FAM, PED Address: [address] [place] [address] When:1 month only if needed Comments:40 mins [facility] 01-17-2023 Hospital Discharge instructions Patient [...] you work with a diet and nutrition internship (dietitian) tomake a meal plan that is [...] care provider. Work with a counselor or potable water treatment operator to identify strategies to manage stress and any emotional and social challenges. Questions to ask a health care provider Do I need to meet with a potable water treatment operator? Do I need to meet with a dietitian? What number can I call if I have questions? When are the best times to check my blood glucose? Where to find more information: [place] Diabetes Association: diabetes.org Academy of Nutrition and Dietetics: www.eatright.org National [place] of Diabetes and Digestive and Kidney Diseases (NIH): www.niddk.nih.gov Summary A healthy meal plan will help you control your blood glucose and maintain a healthy lifestyle. Working with a diet and nutrition internship (dietitian) can help you make a meal [...] 04/25/2006 Document Revised: 07/11/2018 Document Reviewed: 09/02/2017 [employer] Patient Education 2020 LawPal. 08/28/2022 13:59:46 Exercising to Lose Weight Exercising [...] health care provider or diet and nutrition internship (dietitian). This may include: ?Eating fewer calories. [...] 08/31/2011 Document Revised: 08/11/2018 Document Reviewed: 08/11/2018 [employer] Patient Education 2020 LawPal. 08/28/2022 13:59:43 BMI for Adults BMI for [...] height. This can be done either in [place] ([place].) or metric measurements. Note that charts are available to help you find your BMI quickly and easily without having to do these calculations yourself. To calculate your BMI in Cuban (U.S.) measurements, your health care provider will: [...] medical problems. BMI can be measured using [place] measurements or metric measurements. To interpret your [...] 04/09/2005 Document Revised: 07/11/2018 Document Reviewed: 06/11/2018 [employer] Patient Education 2019 LawPal. [facility] 01-12-2023 Hospital Discharge instructions Patient [...] drinks. ?Tomatoes and foods made with tomatoes. ?[place] or spicy foods. ?Chocolate and peppermint. Do not drink alcohol. General instructions Take lzir-abe-newxoew and prescription medicines only as told by [...] 10/18/2004 Document Revised: 11/24/2018 Document Reviewed: 11/24/2018 [employer] Patient Education 2020 LawPal. 08/23/2022 08:15:04 Budget-Friendly Healthy Eating Budget-Friendly Healthy [...] frozen fruits, and frozen vegetables. Avoid buying avqqt-ne-dza foods, such as pre-cut fruits and vegetables and pre-made salads. If possible, shop around to discover where you can find the best prices. Consider other retailers such as dollar stores, larger wholesale stores, local fruit and vegetable stands, and [employer] markets. Do not shop when you are [...] 04/01/2015 Document Revised: 07/30/2018 Document Reviewed: 07/30/2018 [employer] Patient Education 2020 LawPal. Follow Up Care 02/20/2022 08:09:19 With:MAMTA LEE FAAFP, [place], BEATRIZ, PED Address: [place] [address]- When:Within 6 Month(s) [facility] 12-21-2022 Hospital Discharge instructions Patient Education 08/01/2022 18:07:47 Heat Therapy, Vkkk-lg-Fjms Heat Therapy Heat therapy can help ease [...] 10/20/2012 Document Revised: 09/21/2019 Document Reviewed: 08/09/2018 [employer] Patient Education 2020 LawPal. 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 These changes involved the mucosa at the upper extent of the gastric folds (41 cm from the incisors) extending to the Z-line (37 cm from the incisors). [place]-colored mucosa was present. 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 Biopsied. - 4 cm hiatal hernia. [...] the patient. Procedure Code(s): --- Professional --- 96170 Diagnosis Code(s): --- Professional --- K22.70 K44.9 K29.00 K31.89 CPT copyright 2020 [place] [employer]. All rights reserved. Attending Participation: I personally performed the entire procedure. Scope In: 12:44:02 PM Scope Out: 12:54:52 PM MD Katrina Whaley MD 06/08/2022 12:57:27 PM This report has been signed electronically by Katrina Urena MD Number of Addenda: 0 Note Initiated On: 06/08/2022 12:33 [facility]10-28-2022 Nurse Note* Leonor Osorio RN - [...] In Department: GASTROENTEROLOGY documented in this encounterMer[facility]09-15-2022 Miscellaneous Notes* Telephone Encounter - Marguerite Potts RN - 04/26/2022 3:44 PM EDT Attempted to reach the patient at the contact number that they provided [phone] (home) . 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 Author [...] Mellitus Dietary Counseling GERD with hiatal hernia [facility] current use of oral hypoglycemic drug Lumbar [...] Findings: The affected area was not inflamed. [place] classification C 40, M 35. Biopsy collected. [...] Past Histories independently gathered by the clinical marketing support specialist and the remaining scribed note accurately describes my personal service to the patient. Katrina Urena M.D. 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 [place] classification C 40, M 35. Biopsy collected. [...] Past Histories independently gathered by the clinical marketing support specialist and the remaining scribed note accurately describes my personal service to the patient. Katrina Urena M.D. Office:[phone] Appointments [phone] Fax [phone] documented in this encounterMercy Health [facility]07-12-2022 Hospital Discharge instructions Patient Education 02/20/2022 [...] appointment to see a diet and nutrition internship (registered dietitian) to help you create a healthy eating plan. General instructions Check your blood glucose levels as told by your health care provider. Take bheb-qja-qbaqiky and prescription medicines only as told by [...] 09/17/2006 Document Revised: 07/11/2018 Document Reviewed: 08/31/2016 [employer] Patient Education 2020 [employer]Pal. 02/20/2022 08:07:58 Type 2 Diabetes Mellitus, Self Care, Adult, Zkvr-le-Sfjc Type 2 Diabetes Mellitus, Self Care, Adult [...] canola oil. Meet with a food service coordinator (dietitian). He or she can help [...] for cuts, bruises, redness, blisters, or sores. [place]law your teeth and gums two times a day. Floss one or more times a day. Go to the dentist one or more times every 6 months. Stay at a healthy weight. General instructions Take tojz-oid-smczezt and prescription medicines only as told by your doctor. Share your diabetes care plan with: ?Your work or school. ?People you live with. Carry a card or wear jewelry that says you have diabetes. Keep all follow-up visits as told by your doctor. This is important. Questions to ask your doctor Do I need to meet with a potable water treatment operator? Where can I find a support group for people with diabetes? Where to find more information To learn more about diabetes, visit: [place] Diabetes Association: www.diabetes.org [place] Association of Diabetes Educators: www.diabeteseducator.org Summary When [...] 11/19/2016 Document Revised: 01/19/2019 Document Reviewed: 08/31/2016 [employer] Patient Education 2020 Timely 02/20/2022 08:07:54 Type 2 Diabetes Mellitus, Self [...] treat it right away. Always have a 38-okawqordx-kfkjao carbohydrate snack with you to treat low [...] appointment to see a diet and nutrition internship (registered dietitian) to help you create an [...] your health care provider once every year. R[place]law your teeth and gums two times a day, and floss one or more times a day. Visit your dentist one or more times every 6 months. Maintain a healthy weight. General instructions Take yxpy-nsw-mbgubwj and prescription medicines only as told by your health care provider. Share your diabetes management plan with people in your workplace, school, and household. Carry a medical alert card or wear medical alert jewelry. Keep all follow-up visits as told by your health care provider. This is important. Questions to ask your health care provider Do I need to meet with a potable water treatment operator? Where can I find a support group for people with diabetes? Where to find more information For more information about diabetes, visit: [place] Diabetes Association (ADA): www.diabetes.org [place] [employer] of Diabetes Educators (AADE): www.diabeteseducator.org Summary [...] 11/19/2016 Document Revised: 01/19/2019 Document Reviewed: 08/31/2016 [employer] Patient Education 2020 [employer] Follow Up Care 08/22/2021 10:02:38 With:Mt GOODEN DO, FAAFP, FAM, PED Address: [place] [address]- When:Within 6 Month(s) [facility] Evaluation + Plan note Future Appointments Appointment Date:02/20/2022 07:40:00 AM Scheduled Provider:Mt GOODEN DO, FAAFP Location:[facility] Appointment Type: Open Appointment Date:09/13/2022 11:00:00 AM Scheduled Provider: Location:[facility] Appointment Type: Medicare Wellness Subsequent Future Scheduled Tests Laboratory* HgbA1c 02/20/21 * HgbA1c 05/23/21 * HgbA1c 08/23/21 * HgbA1c 11/21/21 * HgbA1c 12/13/20 * HgbA1c 01/21/21 * HgbA1c 04/23/21 * HgbA1c 07/23/21 [facility]ments Appointment Date:02/22/2022 09:40:00 AM Scheduled Provider:Gonzales ROBBINS MD Location:[facility] Appointment Type:[facility] 15 Appointment Date:08/23/2022 07:40:00 AM Scheduled Provider:Mt GOODEN DO, FAAFP Location:[facility] Appointment Type: Open Appointment Date:09/13/2022 11:00:00 AM Scheduled Provider: Location:[facility] Appointment Type:FM Medicare Wellness Subsequent Future [...] Function Panel 02/20/22 * Lipid Panel 02/20/22 [facility] Evaluation + Plan note Future Appointments Appointment Date:03/15/2022 09:00:00 AM Scheduled Provider: Location:[facility] Appointment Type:Surgery FT Appointment Date:08/23/2022 07:40:00 AM Scheduled Provider:Mt GOODEN DO, FAAFP Location:[facility] Appointment Type: Open Appointment Date:09/13/2022 11:00:00 AM Scheduled Provider: Location:[facility] Appointment Type: Medicare Wellness Subsequent Future [...] Function Panel 02/20/22 * Lipid Panel 02/20/22 [facility] [place] Evaluation + Plan note Future Appointments Appointment Date:07/04/2022 03:40:00 PM Scheduled Provider:Thao Duncan DO Location:[facility] Appointment Type:FM Procedure Appointment Date:08/23/2022 07:40:00 AM Scheduled Provider:Mt GOODEN DO, FAAFP Location:[facility] Appointment Type:FM Open Appointment Date:09/13/2022 11:00:00 AM Scheduled Provider: Location:[facility] Appointment Type: Medicare Wellness Subsequent Future Scheduled Tests Laboratory* HgbA1c 08/23/21 * HgbA1c 11/21/21 * HgbA1c 02/20/22 * HgbA1c 05/23/22 * HgbA1c 08/23/22 * HgbA1c 11/21/22 * HgbA1c 07/23/21 * Microalbumin Level Urine 02/20/22 * PSA Screen, Total 02/20/22 * Basic Metabolic Panel 02/20/22 * CBC w/ Auto Diff 02/20/22 * Hepatic Function Panel 02/20/22 * Lipid Panel 02/20/22 [facility] Evaluation + Plan note Future Appointments Appointment Date:08/23/2022 07:40:00 AM Scheduled Provider:Mt GOODEN DO, FAAFP Location:[facility] Appointment Type: Open Appointment Date:09/13/2022 11:00:00 AM Scheduled Provider: Location:[facility] Appointment Type:FM Medicare Wellness Subsequent Future Scheduled Tests Laboratory* HgbA1c 08/23/21 * HgbA1c 11/21/21 * HgbA1c 02/20/22 * HgbA1c 05/23/22 * HgbA1c 08/23/22 * HgbA1c 11/21/22 * HgbA1c 07/23/21 * Microalbumin Level Urine 02/20/22 * PSA Screen, Total 02/20/22 * Basic Metabolic Panel 02/20/22 * CBC w/ Auto Diff 02/20/22 * Hepatic Function Panel 02/20/22 * Lipid Panel 02/20/22 [facility] evaluation + Plan note Future Appointments Appointment Date:08/28/2022 11:00:00 AM Scheduled Provider: Location:[facility] Appointment Type: Medicare Wellness Subsequent Appointment Date:09/04/2022 03:00:00 PM Scheduled Provider:Thao Duncan DO Location:[facility] Appointment Type: Procedure Appointment Date:02/18/2023 08:00:00 AM Scheduled Provider:Mt GOODEN DO, FAAFP Location:[facility] Appointment Type: Open Future Scheduled Tests [...] Lipid Panel 02/20/22 * Lipid Panel 08/23/22 [facility] Evaluation + Plan note Future Appointments Appointment Date:09/04/2022 03:00:00 PM Scheduled Provider:Thao Duncan DO [facility] Type: Procedure Appointment Date:02/18/2023 08:00:00 AM Scheduled Provider:Mt GOODEN DO, FAAFP Location:[facility] [employer] Appointment Type: Open Appointment Date:08/26/2023 11:00:00 AM Scheduled Provider: Location:[facility] Appointment Type: Medicare Wellness Subsequent Future [...] Lipid Panel 02/20/22 * Lipid Panel 08/23/22 [facility] Evaluation + Plan note Future Appointments Appointment Date:09/14/2022 10:40:00 AM Scheduled Provider:Thao Duncan DO Location:[facility] Appointment Type:FM Procedure Appointment Date:09/27/2022 09:15:00 AM Scheduled Provider:Pawan Laureano MD Location:[facility] Appointment Type:Pain Management - Follow Up (FT) Appointment Date:02/18/2023 08:00:00 AM Scheduled Provider:Mt GOODEN DO, FAAFP Location:[facility] Appointment Type:FM Open Appointment Date:08/26/2023 11:00:00 AM Scheduled Provider: Location:[facility] Appointment Type: Medicare Wellness Subsequent Future [...] Lipid Panel 02/20/22 * Lipid Panel 09/10/22 [facility] Future Appointments Appointment Date:09/18/2022 07:30:00 AM Scheduled Provider: [facility] Type:US Aorta Procedures (FT) Appointment Date:09/27/2022 09:15:00 AM Scheduled Provider:Pawan Laureano MD Location:[facility] Appointment Type:Pain Management - Follow Up (FT) Appointment Date:02/18/2023 08:00:00 AM Scheduled Provider:Mt GOODEN DO, FAAFP Location:[facility] Appointment Type:FM Open Appointment Date:08/26/2023 11:00:00 AM Scheduled Provider: Location:[facility] Appointment Type: Medicare Wellness Subsequent Future [...] Lipid Panel 09/10/22 Radiology* US Aorta 09/18/22 [facility] Evaluation + Plan note Future Appointments Appointment Date:09/27/2022 09:15:00 AM Scheduled Provider:Pawan Laureano MD Location:[facility] Appointment Type:Pain Management - Follow Up (FT) Appointment Date:02/18/2023 08:00:00 AM Scheduled Provider:Mt GOODEN DO, FAAFP Location:[facility] Appointment Type: Open Appointment Date:08/26/2023 11:00:00 AM Scheduled Provider: Location:[facility] Appointment Type:FM Medicare Wellness Subsequent Future [...] Lipid Panel 02/20/22 * Lipid Panel 09/10/22 [facility] Future App[facility]ments Appointment Date:11/29/2022 09:45:00 AM Scheduled Provider:Pawan Laureano MD Location:[facility] Appointment Type:Pain Management - Follow Up (FT) Appointment Date:02/18/2023 08:00:00 AM Scheduled Provider:Mt GOODEN DO, FAAFP Location:[facility] Appointment Type:FM Open Appointment Date:08/26/2023 11:00:00 AM Scheduled Provider: Location:[facility] Appointment Type: Medicare Wellness Subsequent Future [...] Lipid Panel 02/20/22 * Lipid Panel 09/10/22 [facility] Future Appointments Appointment Date:11/08/2022 10:00:00 AM Scheduled Provider:Mt GOODEN DO, FAAFP Location:[facility] Appointment Type: Open Appointment Date:11/29/2022 09:45:00 AM Scheduled Provider:Pawan Laureano MD Location:[facility] Appointment Type:Pain Management - Follow Up (FT) Appointment Date:02/18/2023 08:00:00 AM Scheduled Provider:Mt GOODEN DO, FAAFP Location:[facility] Appointment Type:FM Open Appointment Date:08/26/2023 11:00:00 AM Scheduled Provider: Location:[facility] Appointment Type: Medicare Wellness Subsequent Future [...] Lipid Panel 02/20/22 * Lipid Panel 09/10/22 [facility] Future Appointments Appointment Date:11/29/2022 09:45:00 AM Scheduled Provider:Pawan Laureano MD Location:[facility] Appointment Type:Pain Management - Follow Up (FT) Appointment Date:02/18/2023 08:00:00 AM Scheduled Provider:Mt GOODEN DO, FAAFP Location:[facility] Appointment Type: Open Appointment Date:08/26/2023 11:00:00 AM Scheduled Provider: Location:[facility] Appointment Type:FM Medicare Wellness Subsequent Future [...] Lipid Panel 09/10/22 Radiology* US Aorta 11/08/22 [facility] Evaluation + Plan note Future Appointments Appointment Date:11/29/2022 09:45:00 AM Scheduled Provider:Pawan Laureano MD Location:[facility] Appointment Type:Pain Management - Follow Up (FT) Appointment Date:02/18/2023 08:00:00 AM Scheduled Provider:Mt GOODEN DO, FAAFP Location:[facility] Appointment Type: Open Appointment Date:08/26/2023 11:00:00 AM Scheduled Provider: Location:[facility] Appointment Type: Medicare Wellness Subsequent Future [...] Lipid Panel 02/20/22 * Lipid Panel 09/10/22 [facility] Future Appointments Appointment Date:01/23/2023 09:15:00 AM Scheduled Provider:Joycelyn CHERRY MD Location:[facility] Appointment Type:[facility] New Patient Appointment Date:02/18/2023 08:00:00 AM Scheduled Provider:Mt GOODEN DO, FAAFP Location:[facility] Appointment Type: Open Appointment Date:08/26/2023 11:00:00 AM Scheduled Provider: Location:[facility] Appointment Type: Medicare Wellness Subsequent Future [...] Lipid Panel 02/20/22 * Lipid Panel 09/10/22 [facility] Evaluation + Plan note Future Appointments Appointment Date:02/18/2023 08:00:00 AM Scheduled Provider:Mt GOODEN DO, FAAFP Location:[facility] [employer] Appointment Type:FM Open Appointment Date:02/20/2023 02:25:00 PM Scheduled Provider: Location:[facility] Appointment Type:Surgery FT Appointment Date:08/26/2023 11:00:00 AM Scheduled Provider: Location:[facility] [employer] Appointment Type:FM Medicare Wellness Subsequent Future Scheduled [...] Lipid Panel 02/20/22 * Lipid Panel 09/10/22 [facility] Future Appointments Appointment Date:08/26/2023 11:00:00 AM Scheduled Provider: Location:[facility] [employer] Appointment Type: Medicare Wellness Subsequent Future Scheduled [...] Lipid Panel 02/20/22 * Lipid Panel 09/10/22 [facility] Evaluation + Plan note Future Appointments Appointment Date:03/29/2023 09:45:00 AM Scheduled Provider: [facility] App[facility]ment Type:[employer] Sleep Study Clinic Follow Up (FT) Appointment Date:04/09/2023 10:00:00 AM Scheduled Provider: [facility] Type:ONC Office Visit 30 (FT) Appointment Date:06/03/2023 01:20:00 PM Scheduled Provider:Mt GOODEN DO, FAAFP Location:[facility] Appointment Type: Open Appointment Date:08/26/2023 11:00:00 AM Scheduled Provider: Location:[facility] Appointment Type:FM Medicare Wellness Subsequent Diagnostic [...] Function Panel 09/10/22 * Lipid Panel 09/10/22 [facility] Future Appointments Appointment Date:04/09/2023 10:00:00 AM Scheduled Provider: [facility] Type:ONC Office Visit 30 (FT) Appointment Date:06/03/2023 01:20:00 PM Scheduled Provider:Mt GOODEN DO, FAAFP Location:[facility] Appointment Type: Open Appointment Date:08/26/2023 11:00:00 AM Scheduled Provider: Location:[facility] Appointment Type: Medicare Wellness Subsequent Future Scheduled Tests Laboratory* HgbA1c 11/08/22 * HgbA1c 05/23/22 * HgbA1c 08/23/22 * HgbA1c 11/21/22 * HgbA1c 09/10/22 * HgbA1c 11/21/22 * HgbA1c 05/23/23 * CBC w/ Auto Diff 04/09/23 * Comprehensive Metabolic Panel 04/09/23 * Hepatic Function Panel 11/08/22 * Hepatic Function Panel 09/10/22 * Lipid Panel 09/10/22 [facility] Future Appointments Appointment Date:04/09/2023 10:00:00 AM Scheduled Provider: [facility] Type:ONC Office Visit 30 (FT) Appointment Date:06/03/2023 01:20:00 PM Scheduled Provider:Mt GOODEN DO, FAAFP Location:[facility] Appointment Type: Open Appointment Date:08/26/2023 11:00:00 AM Scheduled Provider: Location:[facility] Appointment Type: Medicare Wellness Subsequent Future Scheduled Tests Laboratory* HgbA1c 11/08/22 * HgbA1c 05/23/22 * HgbA1c 08/23/22 * HgbA1c 11/21/22 * HgbA1c 09/10/22 * HgbA1c 11/21/22 * HgbA1c 05/23/23 * Hepatic Function Panel 11/08/22 * Hepatic Function Panel 09/10/22 * Lipid Panel 09/10/22 [facility] Future Appointments Appointment Date:06/03/2023 01:20:00 PM Scheduled Provider:Mt GOODEN DO, FAAFP Location:[facility] Appointment Type: Open Appointment Date:07/09/2023 10:00:00 AM Scheduled Provider: Location[facility] Appointment Type:ONC Office Visit 30 (FT) Appointment Date:08/26/2023 11:00:00 AM Scheduled Provider: Location:[facility] Appointment Type: Medicare Wellness Subsequent Future [...] Function Panel 09/10/22 * Lipid Panel 09/10/22 [facility] Future Appointments Appointment Date:06/03/2023 01:20:00 PM Scheduled Provider:Mt GOODEN DO, FAAFP Location:[facility] Appointment Type: Open Appointment Date:07/09/2023 10:00:00 AM Scheduled Provider: [facility] Type:ONC Office Visit 30 (FT) Appointment Date:08/26/2023 11:00:00 AM Scheduled Provider: Location:[facility] Appointment Type: Medicare Wellness Subsequent Future Scheduled Tests Laboratory* HgbA1c 11/08/22 * HgbA1c 05/23/22 * HgbA1c 08/23/22 * HgbA1c 11/21/22 * HgbA1c 09/10/22 * HgbA1c 11/21/22 * HgbA1c 05/23/23 * CBC w/ Auto Diff 07/10/23 * Comprehensive Metabolic Panel 07/10/23 * D-Dimer 07/11/23 * Hepatic Function Panel 11/08/22 * Hepatic Function Panel 09/10/22 * Lipid Panel 09/10/22 [facility] Future Appointments Appointment Date:06/11/2023 09:00:00 AM Scheduled Provider: Location[facility] Appointment Type:US Duplex Procedures (FT) Appointment Date:07/09/2023 10:00:00 AM Scheduled Provider: Location:.[facility] Appointment Type:ONC Office Visit 30 (FT) Appointment Date:08/26/2023 11:00:00 AM Scheduled Provider: Location:[facility] Appointment Type: Medicare Wellness Subsequent Appointment Date:09/05/2023 09:40:00 AM Scheduled Provider:Mt GOODEN DO, FAAFP Location:[facility] Appointment Type: Open Future Scheduled Tests Laboratory* HgbA1c 11/08/22 * HgbA1c 05/23/22 * HgbA1c 08/23/22 * HgbA1c 11/21/22 * HgbA1c 09/10/22 * HgbA1c 11/21/22 * CBC w/ Auto Diff 07/10/23 * Comprehensive Metabolic Panel 07/10/23 * D-Dimer 07/11/23 * Hepatic Function Panel 09/10/22 Radiology* US LE Venous Duplex Insufficiency Bilat 06/11/23 * US LE Venous Duplex Bilateral 06/11/23 [facility] Evaluation + Plan note Future Appointments Appointment Date:06/26/2023 09:45:00 AM Scheduled Provider:Matty Murillo MD [facility] Type:Pulmonary New Patient (FT) Appointment Date:07/09/2023 10:00:00 AM Scheduled Provider: [facility] Type:ONC Office Visit 30 (FT) Appointment Date:08/26/2023 11:00:00 AM Scheduled Provider: Location:[facility] Appointment Type: Medicare Wellness Subsequent Appointment Date:09/05/2023 09:40:00 AM Scheduled Provider:Mt GOODEN DO, FAAFP Location:[facility] Appointment Type: Open Future Scheduled Tests Laboratory* HgbA1c 11/08/22 * HgbA1c 05/23/22 * HgbA1c 08/23/22 * HgbA1c 11/21/22 * HgbA1c 09/10/22 * HgbA1c 11/21/22 * CBC w/ Auto Diff 07/10/23 * Comprehensive Metabolic Panel 07/10/23 * D-Dimer 07/11/23 * Hepatic Function Panel 09/10/22 [facility] Future Appointments Appointment Date:07/09/2023 10:00:00 AM Scheduled Provider: Location:.[facility] Appointment Type:ONC Office Visit 30 (FT) Appointment Date:07/10/2023 09:30:00 AM Scheduled Provider: [facility] Type:PUL Pulmonary Function Test (FT) Appointment Date:07/10/2023 10:30:00 AM Scheduled Provider: [facility] Appointment Type:PUL Six Minute Walk Test (FT) Appointment Date:07/17/2023 09:45:00 AM Scheduled Provider:Matty Murillo MD [facility] Type:Pulmonary Follow Up (FT) Appointment Date:08/26/2023 11:00:00 AM Scheduled Provider: Location:[facility] Appointment Type: Medicare Wellness Subsequent Appointment Date:09/05/2023 09:40:00 AM Scheduled Provider:Mt GOODEN DO, FAAFP Location:[facility] Appointment Type: Open Future Scheduled Tests Laboratory* HgbA1c 11/08/22 * HgbA1c 08/23/22 * HgbA1c 11/21/22 * HgbA1c 09/10/22 * HgbA1c 11/21/22 * CBC w/ Auto Diff 07/10/23 * Comprehensive Metabolic Panel 07/10/23 * D-Dimer 07/11/23 * Hepatic Function Panel 09/10/22 [facility] Future Appointments Appointment Date:07/10/2023 09:30:00 AM Scheduled Provider: [facility] Type:PUL Pulmonary Function Test (FT) Appointment Date:07/10/2023 10:30:00 AM Scheduled Provider: [facility] Appoint[facility] Type:PUL Six Minute Walk Test (FT) Appointment Date:07/17/2023 09:45:00 AM Scheduled Provider:Matty Murillo MD [facility] Type:Pulmonary Follow Up (FT) Appointment Date:08/26/2023 11:00:00 AM Scheduled Provider: Location:[facility] Appointment Type: Medicare Wellness Subsequent Appointment Date:09/05/2023 09:40:00 AM Scheduled Provider:Mt GOODEN DO, FAAFP Location:[facility] Appointment Type:FM Open Appointment Date:01/07/2024 10:00:00 AM Scheduled Provider: [facility] Type:ONC Office Visit 30 (FT) Future Scheduled Tests Laboratory* HgbA1c 11/08/22 * HgbA1c 08/23/22 * HgbA1c 11/21/22 * HgbA1c 09/10/22 * HgbA1c 11/21/22 * CBC w/ Auto Diff 01/07/24 * Comprehensive Metabolic Panel 01/07/24 * D-Dimer 01/07/24 * Hepatic Function Panel 09/10/22 [facility] Future Appointments Appointment Date:08/26/2023 11:00:00 AM Scheduled Provider: Location:[facility] Appointment Type: Medicare Wellness Subsequent Appointment Date:09/05/2023 09:40:00 AM Scheduled Provider:Mt GOODEN DO, FAAFP Location:[facility] Appointment Type: Open Appointment Date:01/07/2024 10:00:00 AM Scheduled Provider: [facility] Type:ONC Office Visit 30 (FT) Future Scheduled Tests Laboratory* HgbA1c 11/08/22 * HgbA1c 08/23/22 * HgbA1c 11/21/22 * HgbA1c 09/10/22 * HgbA1c 11/21/22 * CBC w/ Auto Diff 01/07/24 * Comprehensive Metabolic Panel 01/07/24 * D-Dimer 01/07/24 * Hepatic Function Panel 09/10/22 [facility] Future Appointments Appointment Date:09/05/2023 09:40:00 AM Scheduled Provider:Mt GOODEN DO, FAAFP Location:[facility] Appointment Type: Open Appointment Date:01/07/2024 10:00:00 AM Scheduled Provider: [facility] App[facility] Type:ONC Office Visit 30 (FT) Appointment Date:08/31/2024 09:30:00 AM Scheduled Provider: Location:[facility] Appointment Type: Medicare Wellness Subsequent Future Scheduled Tests Laboratory* HgbA1c 11/08/22 * HgbA1c 08/23/22 * HgbA1c 11/21/22 * HgbA1c 09/10/22 * HgbA1c 11/21/22 * CBC w/ Auto Diff 01/07/24 * Comprehensive Metabolic Panel 01/07/24 * D-Dimer 01/07/24 * Hepatic Function Panel 09/10/22 [facility] Evaluation + Plan note Future Appointments Appointment Date:09/05/2023 09:40:00 AM Scheduled Provider:Mt GOODEN DO, FAAFP Location:[facility] Appointment Type:FM Open Appointment Date:01/07/2024 10:00:00 AM Scheduled Provider: [facility] Type:ONC Office Visit 30 (FT) Appointment Date:08/31/2024 09:30:00 AM Scheduled Provider: Location:[facility] Appointment Type: Medicare Wellness Subsequent Future Scheduled Tests Laboratory* HgbA1c 08/23/22 * HgbA1c 11/21/22 * HgbA1c 09/10/22 * HgbA1c 11/21/22 * CBC w/ Auto Diff 01/07/24 * Comprehensive Metabolic Panel 01/07/24 * D-Dimer 01/07/24 [facility] Future Appointments Appointment Date:12/10/2023 09:40:00 AM Scheduled Provider:Mt GOODEN DO, FAAFP Location:[facility] Appointment Type: Open Appointment Date:01/07/2024 10:00:00 AM Scheduled Provider:Azra Leon MD [facility] Type:ONC Office Visit 30 (FT) Appointment Date:08/31/2024 09:30:00 AM Scheduled Provider: Location:[facility] Appointment Type: Medicare Wellness Subsequent Future Scheduled Tests Laboratory* U Protein/Creat Ratio 09/05/23 * HgbA1c 11/21/22 * HgbA1c 09/05/23 * HgbA1c 11/21/22 * Microalbumin Level Urine 09/05/23 * PSA Screen, Total 09/05/23 * CBC w/ Auto Diff 01/07/24 * Comprehensive Metabolic Panel 01/07/24 * D-Dimer 01/07/24 Radiology* XR Hip 2-3 Views Right 09/05/23 * XR Shoulder Complete Left 09/05/23 [facility] Future Appointments Appointment Date:12/10/2023 09:40:00 AM Scheduled Provider:Mt GOODEN DO, FAAFP Location:[facility] Appointment Type:FM Open Appointment Date:01/07/2024 10:00:00 AM Scheduled Provider:Azra Leon MD [facility] App[facility] Type:ONC Office Visit 30 (FT) Appointment Date:08/31/2024 09:30:00 AM Scheduled Provider: Location:[facility] Appointment Type:FM Medicare Wellness Subsequent Future Scheduled Tests Laboratory* U Protein/Creat Ratio 09/05/23 * HgbA1c 11/21/22 * HgbA1c 09/05/23 * HgbA1c 11/21/22 * Microalbumin Level Urine 09/05/23 * PSA Screen, Total 09/05/23 * CBC w/ Auto Diff 01/07/24 * Comprehensive Metabolic Panel 01/07/24 * D-Dimer 01/07/24 [facility] Diagnosis Mccarty's esophagus with dysplasia- Primary Mccarty's esophagus [facility] Diagnosis Mccarty's esophagus with dysplasia Mccarty's esophagus [facility] Diagnosis Chronic right-sided low back pain with right-sided sciatica- Primary documented in this encounter [facility] note* Diagnosis Bilateral low back pain with sciatica, sciatica laterality unspecified, unspecified chronicity- Primary [facility] Diagnosis Sacrococcygeal disorders, not elsewhere classified- Primary documented in this encounter [facility] note* Diagnosis Bilateral low back pain with sciatica, sciatica laterality unspecified, unspecified chronicity [facility] Narrative No data available for this section [facility] instructions No data available for this section [facility] No data available for this section [facility] Reason for referral (narrative)* Outpatient Procedure (Routine) - Authorized Specialty Diagnoses / Procedures Referred By Sourav arriaga Referred To Contact [facility] Diagnoses Mccarty's esophagus with dysplasia Procedures EGD DIAGNOSTIC ESOPHAGOGASTRODUODENOSC OPY TRANSORAL DIAGNOSTIC Katrina Urena MD [address] [place] [address] [facility] [address] [place] [address] Referral ID Status Reason Start Date Expiration Date Visits Requested Visits Authorized [id number] Authorized Auto-Generat ed Referral 04/09/2022 04/09/[address] [facility] for referral (narrative)* Outpatient Procedure (Routine) - Closed Specialty Diagnoses / Procedures [facility] To [facility] Diagnoses Mccarty's esophagus with dysplasia Procedures EGD DIAGNOSTIC ESOPHAGOGASTRODUODENOSC OPY TRANSORAL DIAGNOSTIC Katrina Urena MD [address] [place] [address] [facility] [address] [place] [address] Referral ID Status Reason Start Date Expiration Date V isits Requested Visits Authorized [id number] Closed Auto-Generate d Referral 04/09/2022 04/09/[address] [facility] for referral (narrative) Referred by: Perla LEE, Thao [facility] for referral (narrative)* Diagnostic Procedure Only (Routine) - Closed Specialty Diagnoses / Procedures [facility] Referred To Contact XR IMAGING Diagnoses Bilateral low back pain with sciatica, sciatica laterality unspecified, unspecified chronicity Procedures XR SACROILIAC JOINTS 2V AP PELVIS/FERGUESON RADIOLOGIC EXAMINATION SACROILIAC JNTS <3 VIEWS Juma Monk MD [address] [place] [address] Xr Imaging Referral ID Status Reason Start Date Expiration Date V isits Requested Visits Authorized [id number] Closed Auto-Generate d Referral 12/05/2022 01/04/[address] [facility] for referral (narrative)* Diagnostic Procedure Only (Routine) - Closed Specialty Diagnoses / Procedures [facility] Referred To Contact XR IMAGING Diagnoses Bilateral low back pain with sciatica, sciatica laterality unspecified, unspecified chronicity Procedures XR SACROILIAC JOINTS 2V AP PELVIS/FERGUESON RADIOLOGIC EXAMINATION SACROILIAC JNTS <3 VIEWS Juma Monk MD [address] [place] [address] Xr Imaging Referral ID Status Reason Start Date Expiration Date V isits Requested Visits Authorized [id number] Closed Auto-Generate d Referral 12/05/2022 01/04/[address] [facility] for visit Narrative* Outpatient Procedure (Routine) - Closed Specialty Diagnoses / Procedures Referred By Sourav arriaga Referred To Contact [facility] Diagnoses Mccarty's esophagus with dysplasia Procedures EGD DIAGNOSTIC ESOPHAGOGASTRODUODENOSC OPY TRANSORAL DIAGNOSTIC Katrina Urena MD [address] [place] [id number] [address] Referral ID Status Reason Start Date Expiration Date V isits Requested Visits Authorized [id number] Closed Auto-Generate d Referral 04/09/2022 04/09/[address] [facility] for visit Narrative* Diagnostic Procedure Only (Routine) - Closed Specialty Diagnoses / Procedures Referred By Sourav arriaga Referred To Contact XR IMAGING Diagnoses Bilateral low back pain with sciatica, sciatica laterality unspecified, unspecified chronicity Procedures XR SACROILIAC JOINTS 2V AP PELVIS/FERGUESON RADIOLOGIC EXAMINATION SACROILIAC JNTS <3 VIEWS Juma Monk MD [address] [place] [id number] Xr Imaging Referral ID Status Reason Start Date Expiration Date V isits Requested Visits Authorized [id number] Closed Auto-Generate d Referral 12/05/2022 01/04/2024 1 1 [facility] Reason for Referral Specialty Diagnoses / Procedures Referred By Sourav arriaga Referred To Contact MR IMAGING Diagnoses Sacrococcygeal disorders, not elsewhere classified Procedures MRI SACRUM/COCCYX WO IVCON MRI PELVIS W/O CONTRAST MATERIAL Juma Monk MD [address] [place] [address] Mr Imaging Referral ID Status Reason Start Date Expiration Date Visits Requested Visits Authorized [id number] Pending Review Auto-Generat ed Referral 12/17/2022 01/16/2024 [...] Care Team (unrecognized sect ion and content) Chucking Lathe Operator Relationship Specialty Start Date End Date Pcp, No PCP - General 02/24/22 09/11/22 Chucking Lathe Operator Relationship Specialty Start Date End Date Pcp, No PCP - General 02/24/22 09/11/22 Chucking Lathe Operator Relationship Specialty Start Date End Date Pcp, No PCP - General 02/24/22 09/11/22 Chucking Lathe Operator Relationship Specialty Start Date End Date [place] DO [address] [place] [address] PCP - General Family Medicine 11/14/22 Thao [place](Historical), DO Referring Primary Care 08/07/22 Chucking Lathe Operator Relationship Specialty Start Date End Date Mt Gooden DO [address] [place] [address] PCP - General Family Medicine 11/14/22 Thao [place](Historical), DO Referring Primary Care 08/07/22 Chucking Lathe Operator Relationship Specialty Start Date End Date Mt Gooden DO [address] [place] [address] PCP - General Family Medicine 11/14/22 Thao [place](Historical), DO Referring Primary Care 08/07/22 Chucking Lathe Operator Relationship Specialty Start Date End Date Mt Gooden DO [address] [place] [address] PCP - General Family Medicine 11/14/22 Thao [place](Historical), DO Referring Primary Care 08/07/22 Source Comments (unrecognize d section and content) In the event this informatio n is protected by the Federal Confidentiality of Alcohol and Drug Abuse Patient Records regulations: The Federal rules restrict any use of the information to criminally investigate or prosecute any alcohol or drug abuse patient.[facility] the event this information is protected by the Federal Confidentiality of Alcohol and Drug Abuse Patient Records regulations: The Federal rules restrict any use of the information to criminally investigate or prosecute any alcohol or drug abuse patient.[facility] the event this information is protected by the Federal Confidentiality of Alcohol and Drug Abuse Patient Records regulations: The Federal rules restrict any use of the information to criminally investigate or prosecute any alcohol or drug abuse patient.[facility] the event this information is protected by the Federal Confidentiality of Alcohol and Drug Abuse Patient Records regulations: The Federal rules restrict any use of the information to criminally investigate or prosecute any alcohol or drug abuse patient.[facility] the event this information is protected by the Federal Confidentiality of Alcohol and Drug Abuse Patient Records regulations: The Federal rules restrict any use of the information to criminally investigate or prosecute any alcohol or drug abuse patient.[facility] the event this information is protected by the Federal Confidentiality of Alcohol and Drug Abuse Patient Records regulations: The Federal rules restrict any use of the information to criminally investigate or prosecute any alcohol or drug abuse patient.[facility] the event this information is protected by the Federal Confidentiality of Alcohol and Drug Abuse Patient Records regulations: The Federal rules restrict any use of the information to criminally investigate or prosecute any alcohol or drug abuse patient.[facility] the event this information is protected by the Federal Confidentiality of Alcohol and Drug Abuse Patient Records regulations: The Federal rules restrict any use of the information to criminally investigate or prosecute any alcohol or drug abuse patient.[facility] Reason for Visit (unrecogniz ed section and content) Reason Comments Appointment Confirmation Reason Comments Consult Dx oa. Reason Comments Received Outside Medical Records Reason Comments Follow Up Denies any concerns Reason Comments Results (unrecognized sect ion and content) No Status Records FoundNo Status Records FoundNo Status Records Found INFORMATION SOURCE (unrecogn ized section and content) DATE CREATED AUTHOR 01/29/2023 [facility] DATE CREATED AUTHOR AUTHOR'S ORGANIZ ATION 06/27/2023 [facility] DATE CREATED AUTHOR AUTHOR'S ORGANIZ ATION 10/02/2023 [facility] FOR RECORDS PERTAINING TO PATIENTS WHO ARE [...] BE BASED ON THE PRIMARY CLINICAL RECORDS. [employer] provides no warranty or guarantee of the accuracy or completeness of information in this document.
== END 2023-10-03 10:56 | disposition home or self-care (01) ==
LOC: VC 10:55
PROVIDERS: PCP Radiology Diagnostic Radiology; Visit Provider Radiology Diagnostic Radiology
DX: I83.813 Varicose veins of bilateral lower extremities with pain (principal)
CPT/HCPCS: 36466

== ENCOUNTER 2023-10-10 09:29 | Outpatient (OUT) | payer MEDICARE, OTHER, SELFPAY ==
--- NOTE | 2023-10-10 09:30 | VEIN_ITS ---
Patient Name: JOSE GONZALEZ MR#: [id number] : 1950 Exam Date: 10/10/2023 Ordering Doctor: DR LEXA CUNHA M.D. RADIOLOGY REPORT PROCEDURE: VC EXT VENOUS RT LMTD COMPARISON: VC EXT VENOUS RT LMTD, 09/09/2023. VC EXT VENOUS RT LMTD, 08/02/2023. INDICATIONS: I80.01 Phlebitis of superficial veins of rt lower extremity TECHNIQUE: Lower extremity anderson scale and Duplex Doppler evaluation of the deep venous system from the inguinal ligament through the calf veins. FINDINGS: REGION: Right lower extremity. THROMBI: Negative for DVT. Varithena induced thrombus visualized at mid/med calf and prox/med calf. COMPRESSIBILITY: Non-compressible segments corresponding to thrombus FLOW: Areas of no flow corresponding to thrombus OTHER: No patent varicose veins remain. 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 No deep vein thrombus. Dictated by: Lexa Cunha MD on 10/10/2023 at 09:47 Approved by: Lexa Cunha MD on 10/10/2023 at 09:48
--- NOTE | 2023-10-10 09:30 | VEIN_ITS ---
Patient Name: JOSE GONZALEZ MR#: [id number] : 1950 Exam Date: 10/10/2023 Ordering Doctor: DR LEXA CUNHA M.D. RADIOLOGY REPORT PROCEDURE: [facility] EST LMTD VEIN CENTER - OFFICE VISIT FOLLOW UP COMPARISON: [facility] EST LMTD, 09/25/2023. [facility] EST LMTD, 09/09/2023. PROGRESS NOTES: The patient reports no significant problems following micro foam chemical ablation varicose veins. The patient wear his compression stockings. The patient has tried exercise. The patient did not require analgesics Physical exam demonstrates multiple thrombosed varicose and reticular veins. Persistent expected hemosiderin staining. Complete resolution of the patient's subcutaneous edema and skin thickening from his initial presenting exam. No erythema or warmth to suggest cellulitis or thrombophlebitis. A small ulceration the left mid medial lower leg remains, this continues to heal. Review of the ultrasound performed the same day demonstrates occlusive thrombus extending throughout the treated varicose veins. No residual varicose veins remain period no deep vein thrombus. The patient's treatments are now complete. The patient was asked to return for a follow-up in 12 months. VEIN/[facility] EST LMTD IMPRESSION: 1. Successful ablation of treated incompetent right leg varicose veins 2. Treatment plan is now complete. PLAN: Follow-up in 12 months Nurse notes, history and physical were reviewed and confirmed, see attached forms. The nurse was present throughout the physical exam and consultation Dictated by: Lexa Cunha MD on 10/10/2023 at 10:05 Approved by: Lexa Cunha MD on 10/10/2023 at 10:06
== END 2023-10-10 09:30 | disposition home or self-care (01) ==
LOC: VC 09:29
PROVIDERS: PCP Radiology Diagnostic Radiology; Visit Provider Radiology Diagnostic Radiology
DX: I80.01 Phlebitis and thrombophlebitis of superficial vessels of right lower extremity (principal)
CPT/HCPCS: 93971; G0463